=== PATIENT | male | born 1940 | race Caucasian/White ===

== ENCOUNTER 2022-04-21 20:16 | Inpatient (IN) | payer MEDICARE, MEDICAID, SELFPAY ==
[2022-04-21 18:00] VITALS: BP 171/100; PULSE 78; RESP 17; TEMP 36.3; O2SAT 94
--- OUTSIDE RECORDS SUMMARY | 2022-04-21 20:20 | XMS_ITS | Continuity of Care Document ---
:1940 Author Organization [facility] n[facility] Address [address] [place] [address]- Care Team Providers Name Role Phone Isra Ivan MD Primary Care Physician [place] [facility] [place] [facility] [place] 05/11/20 - 05/12/[address] [address]- Discharge Disposition: A-D/C Home Attending Physician: Blake Banda MD Admitting Physician: Blake Banda MD Referring Physician: Not on Staff, Referring MD Allergies, Adverse Reactions, Alerts Substance Reaction Severity Status Latex ? rash Persistent Mild Active Pollen Active Immunizations Given and Recorded Vaccine Date Status Refusal Reason influenza virus vaccine, inactivated 01/16/20 Given pneumococcal 13-valent vaccine 01/24/16 Given pneumococcal 23-valent vaccine1 12/08/13 Given tetanus-diphtheria toxoids (Td)2 12/08/13 Given tetanus-diphtheria toxoids (Td) 07/31/04 Given 1Result Comment: [12/08/2013] vis given hobbs consent signed.2Result Comment: [12/08/2013] vis given hobbs consent signed. Medications cholecalciferol 400 iu oral tablet = 400 International_Units, By Mouth, Daily, 0 Refills, Maintenance, 01/22/20 12:02:00 EDT, Tablet Start Date: 01/22/20 Status: OrderedFish Oil By Mouth, 0 Refills, Maintenance, 06/23/18 10:34:52 EDT Start Date: 06/23/18 Status: OrderedhydrOXYzine pamoate 50 mg oral capsule = 50 mg, By Mouth, Daily at bedtime, # 30 capsule, 3 Refills, Maintenance, 05/09/20 8:15:00 EST, Capsule, [facility] [address], 170, cm, 01/22/20 9:47:00 EDT, Height, 72.5, kg, 01/15/20 18:59:00 EDT,Dry Weight Start Date: 05/09/20 Status: Orderedmelatonin 5 mg oral tablet By Mouth, Daily at bedtime, 0 Refills, Maintenance, 01/22/20 12:02:00 EDT, Tablet Start Date: 01/22/20 Status: Orderedsertraline 100 mg oral tablet 1 tablet = 100 mg, By Mouth, Daily, # 30 tablet, 0 Refills, Maintenance, 05/09/20 8:05:00 EST, Tablet, [facility] [address], 170, cm, 01/22/20 9:47:00 EDT, Height, 72.5, kg, 01/15/20 18:59:00 EDT, Dry Weight Start Date: 05/09/20 Status: OrderedTriamcinolone = 5 mg, Topically, 3 times a day, Maintenance, 01/15/20 17:35:00 EDT Start Date: 01/15/20 Status: OrderedVitamin A & D 1 applicator, Topically, 4 times a day, 0 Refills, Maintenance, 06/23/18 10:34:09 EDT Start Date: 06/23/18 Status: OrderedVitamin B Complex oral tablet, extended release 1 tablet, By Mouth, Daily, 0 Refills, Maintenance, 06/23/18 10:34:35 EDT Start Date: 06/23/18 Status: OrderedVitamin C By Mouth, Daily, 0 Refills, Maintenance, 06/23/18 10:34:44 EDT Start Date: 06/23/18 Status: Ordered Problem List Condition Effective Dates Status Health Status Informant Actinic keratosis(Confirmed) Active Atypical melanocytic Active hyperplasia(Confirmed) BPH (benign prostatic Active hypertrophy)(Confirmed) Chronic low back pain(Confirmed) Active Eczema(Confirmed) Active Hyperlipidemia(Confirmed) 09/29/10 Active Osteoarthritis(Confirmed) Active Hypogonadism, male(Confirmed) Active Depression(Confirmed) Active Spinal stenosis of lumbar region at Active multiple levels(Confirmed) Tubular adenoma of colon(Confirmed) 09/20/16 Active Results Radiology Reports Exam Date Time Procedure Performing Provider Status 05/12/20 2:30 AM Chest Single Frontal View Efe , Bailey Gomez; Aut h (Verified) Notes:(Chest Single Frontal View) Reason For Exam: Pain;Other:RESULT: Chest Single Frontal View Chest Single Frontal View HISTORY: Left shoulder injury. Pain. CLINICAL QUESTION: Fracture. Pneumothorax. Pulmonary contusion. COMPARISON: Chest radiograph 11/05/2017. FINDINGS: LINES AND TUBES: None. LUNGS AND PLEURA: Low lung volumes with mild basilar atelectasis. Lungs are otherwise clear with no consolidation. No pleural effusion. No pneumothorax. HEART, MEDIASTINUM AND STEVE: Heart is normal in size. Normal upper mediastinal and hilar contour. BONES AND SOFT TISSUES: Please refer to the dedicated shoulder radiographs for bony findings. No acute osseous abnormality identified on this view. Bilateral narrowing of acromiohumeral interval. Left rotator cuff calcific tendinitis. Amorphous calcifications in the right lateral chest wall/axillary region. IMPRESSION: No acute abnormality. I have personally reviewed the images and I agree with this report. WSN: [id number] Ordering Physician: Blake Banda Dictated By: Ed Rea MD Dictated Date/Time: 05/12/20 8:42 am Reviewed By: Seng Caldwell MD Signed By: Seng Caldwell MD Signed Date/Time: 05/12/20 8:47 am Transcribed By: MEY Transcribed Date/Time: 05/12/20 8:30 am Exam Date Time Procedure Performing Provider Status 05/12/20 2:30 AM Shoulder Min 2 Views Left Efe , Bailey Gomez; Bernard h (Verified) Notes:(Shoulder Min 2 Views Left) Reason For Exam: with Pain;Post-Reduction RESULT: Shoulder Min 2 Views Left Shoulder Min 2 Views Left, 2 views Hx of Present Illness: L shoulder injury.; Reason: Post-Reduction; with Pain; Clinical Question(s): Position Fixation COMPARISON: Films done earlier same day. FINDINGS: Previously seen shoulder dislocation has been reduced. No definite associated fracture identified on this 2 view study. AC joint intact. Soft tissue calcifications lateral to humeral head, these could be fracture fragments, but appearance more consistent with calcific tendinitis, calcific bur sitis, and/or loose bodies in, or adjacent to, joint. IMPRESSION: Previously seen dislocation has been reduced. Soft tissue calcifications lateral to humeral head. WSN: [id number] Ordering Physician: Blake Banda Dictated By: Gavino Mercado MD Dictated Date/Time: 05/12/20 8:12 am Reviewed By: Gavino Mercado MD Signed By: Gavino Mercado MD Signed Date/Time: 05/12/20 8:12 am Transcribed By: MEY Transcribed Date/Time: 05/12/20 8:02 am Exam Date Time Procedure Performing Provider Status 05/12/20 12:41 AM Shoulder Min 2 Views Left Efe , Bailey Gomez; Au th (Verified) Notes:(Shoulder Min 2 Views Left) Reason For Exam: with Pain;TraumaRESULT: Shoulder Min 2 Views Left Left shoulder 2 views dated May 12, 2020. No prior studies are available. HISTORY: Pain FINDINGS: This examination shows an inferior dislocation of the humeral head with respect to the glenoid. No fracture is appreciated. IMPRESSION: Luxatio erecta (inferior dislocation). Examination 21570. Thank you for allowing me to participate in the care of this patient. WSN: [id number] Ordering Physician: Woo Faustin Dictated By: Vin Ambrosio MD Dictated Date/Time: 05/12/20 7:55 am Reviewed By: Vin Ambrosio MD Signed By: Vin Ambrosio MD Signed Date/Time: 05/12/20 7:55 am Transcribed By: MEY Transcribed Date/Time: 05/12/20 7:54 am Vital Signs Most recent to oldest 1 2 3 [Reference Range]: Height 168 cm 168 cm 168 cm (05/12/20 5:02 AM) (05/12/20 2:59 AM) (05/12/20 1:5 8 AM) Weight 66 kg 66 kg 66 kg (05/12/20 5:02 AM) (05/12/20 2:59 AM) (05/12/20 1:5 8 AM) Oxygen Saturation [94-100 %] 96 % 95 % 98 % (05/12/20 5:02 AM) (05/12/20 2:59 AM) (05/12/20 1:5 8 AM) Pulse Rate [55-90 bpm] 82 bpm 86 bpm 75 bpm (05/12/20 5:02 AM) (05/12/20 2:59 AM) (05/12/20 1:5 8 AM) Body Mass Index [18.5-24.99] 23.38 23.38 23. 38 (05/12/20 5:02 AM) (05/12/20 2:59 AM) (05/12/20 1:5 8 AM) Blood Pressure [90-138/55-84 125/67 mm Hg 154/73 mm Hg 143 /80 mm Hg mm Hg] (05/12/20 5:02 AM) *H* *H* (05/12/20 2:59 AM) (05/12/20 1:58 AM) Respiratory Rate [16-30 17 br/min 18 br/min 19 br/mi n br/min] (05/12/20 5:02 AM) (05/12/20 2:59 AM) (05/12/20 1:5 8 AM) Temperature [96.8-100.4 DegF] 97.3 DegF (05/11/20 11:57 PM) Liters per Minute 2 L/min 2 L/min 2 L/min (05/12/20 5:02 AM) (05/12/20 1:58 AM) (05/12/20 1:4 5 AM) Mode of Delivery (Oxygen) Nasal cannula Room air Nasal cannula (05/12/20 5:02 AM) (05/12/20 2:59 AM) (05/12/20 1:5 8 AM) Temperature Route Oral (05/11/20 11:57 PM) Dry Weight 66 kg 66 kg 66 kg (05/12/20 5:02 AM) (05/12/20 2:59 AM) (05/12/20 1:5 8 AM) Social History Social History Type Response Smoking Status Never smoker entered on: 09/18/16 Sex Medical Equipment Implanted Date:12/13/17 Target Site:Groin Right Description Quantity MRI Company Model MESH SOFT 7.5X15CM - BARD ([id number]) 1 Bard Unknown ELMA: No Information Assigning Authority: FDA
--- OUTSIDE RECORDS SUMMARY | 2022-04-21 20:20 | XMS_ITS | Continuity of Care Document ---
:1940 Author Organization [facility] nter Address [address] [place] [address]- Care Team Providers Name Role Phone Isra Ivan MD Primary Care Physician [place] [facility] [place]06[place] - 02/06/[address] [address]- Discharge Disposition: A-D/C Home Attending Physician: Rhoda Burciaga MD Admitting Physician: Rhoda Burciaga MD Referring Physician: Not on Staff, Referring MD Allergies, Adverse Reactions, Alerts Substance Reaction Severity Status Latex ? rash Persistent Mild Active Pollen Active Immunizations Given and Recorded Vaccine Date Status Refusal Reason influenza virus vaccine, inactivated 01/16/20 Given pneumococcal 13-valent vaccine 01/24/16 Given pneumococcal 23-valent vaccine1 12/08/13 Given tetanus-diphtheria toxoids (Td)2 12/08/13 Given tetanus-diphtheria toxoids (Td) 07/31/04 Given Not Given Vaccine Date Status Refusal Reason tetanus/diphtheria/pertussis, acel(Tdap)3 11/26/20 Not Gi balbina Patient Refuses 1Result Comment: [12/08/2013] vis given hobbs consent signed.2Result Comment: [12/08/2013] vis given hobbs consent signed.3Result Comment: Pt was educated on benefits and indication for need for tetanus vaccine. Pt able to teachback but refuses vaccine Medications cholecalciferol 400 iu oral tablet = 400 International_Units, By Mouth, Daily, 0 Refills, Maintenance, 01/22/20 12:02:00 EDT, Tablet Start Date: 01/22/20 Status: OrderedFish Oil By Mouth, 0 Refills, Maintenance, 06/23/18 10:34:52 EDT Start Date: 06/23/18 Status: OrderedhydrOXYzine pamoate 50 mg oral capsule = 50 mg, By Mouth, Daily at bedtime, # 30 capsule, 3 Refills, Maintenance, 09/26/20 14:55:00 EDT, Capsule, [facility] [address], 169, cm, 08/26/20 9:32:00 EDT, Height, 75.1, kg, 07/06/20 14:43:00 EDT, Dry Weight Start Date: 09/26/20 Status: Orderedibuprofen 600 mg oral tablet 600 mg, 1, tablet, By Mouth, Every 6 hours, PRN, not to exceed 3200 mg/day with food or milk, # 20 tablet, Refills 0, Tot. Refills 0, Maintenance, for pain, 02/06/21 16:29:00 EST, Route to Pharmacy Electronically, [facility] [address], Partial fill... Start Date: 02/06/21 Stop Date: 02/11/21 Status: Orderedmelatonin 5 mg oral tablet By Mouth, Daily at bedtime, 0 Refills, Maintenance, 01/22/20 12:02:00 EDT, Tablet Start Date: 01/22/20 Status: Orderedsertraline 100 mg oral tablet 1.5 tablet = 150 mg, By Mouth, Daily, # 135 tablet, 0 Refills, Maintenance, 08/26/20 9:49:00 EDT, [facility] [address], 169, cm, 08/26/20 9:32:00 EDT, Height, 75.1, kg, 07/06/20 14:43:00 EDT, Dry Weight Start Date: 08/26/20 Status: OrderedTriamcinolone = 5 mg, Topically, 3 [...] Osteoarthritis(Confirmed) Active Hypogonadism, male(Confirmed) Active Depression(Confirmed) Active Left rotator cuff tear(Confirmed) Active Left shoulder pain(Confirmed) Active Spinal stenosis of lumbar region at Active multiple levels(Confirmed) Tubular adenoma of colon(Confirmed) 09/20/16 Active Results Radiology Reports Exam Date Time Procedure Performing Provider Status 02/06/21 1:33 PM Hand Min 3 Views Right Adina Hylton; Mac (Portillo ified) Notes:(Hand Min 3 Views Right) Reason For Exam: Trauma;with Pain, X3 days fell onto handRESULT: Hand Min 3 Views Right Examination: Right hand performed on 02/06/2021. History: Hx of Present Illness: rt hand px post falling on it 3 days ago, pt reports numnbess and tingling to hand. pt able to move extremity; Reason: Trauma; with Pain, X3 days fell onto hand; Clinical Question(s): Fracture Findings: Frontal, oblique, and lateral views of the right hand are submitted. No fractures or dislocations are demonstrated. Joint space narrowing is seen, most marked at the fifth proximal interphalangeal joint. Minimal productive change is noted. Soft tissue swelling overlies the dorsum of the hand. IMPRESSION: Normal soft tissue swelling. There is no acute osseous abnormality. WSN: [id number] Ordering Physician: Boni Chi Dictated By: Jovita Witt MD Dictated Date/Time: 02/06/21 1:59 pm Reviewed By: Jovita Witt MD Signed By: Jovita Witt MD Signed Date/Time: 02/06/21 1:59 pm Transcribed By: MEY Transcribed Date/Time: 02/06/21 1:53 pm Vital Signs Most recent to oldest [Reference Range]: 1 Height 168 cm (02/06/21 12:13 PM) Weight 66 kg (02/06/21 12:13 PM) Oxygen Saturation [94-100 %] 97 % (02/06/21 12:13 PM) Pulse Rate [55-90 bpm] 70 bpm (02/06/21 12:13 PM) Blood Pressure [90-138/55-84 mm Hg] 108/64 mm Hg (02/06/21 12:13 PM) Respiratory Rate [16-30 br/min] 18 br/min (02/06/21 12:13 PM) Temperature [96.8-100.4 DegF] 99.3 DegF (02/06/21 12:13 PM) Mode of Delivery (Oxygen) Room air (02/06/21 12:13 PM) Blood pressure sites Arm, right (02/06/21 12:13 PM) Temperature Route Oral (02/06/21 12:13 PM) Dry Weight 66 kg (02/06/21 12:13 PM) Social History Social History Type Response Smoking Status Never smoker entered on: 09/18/16 Sex Medical Equipment Implanted Date:12/13/17 Target Site:Groin Right Description Quantity MRI Company Model MESH SOFT 7.5X15CM - BARD ([id number]) 1 Bard Unknown ELMA: No Information Assigning Authority: FDA
--- OUTSIDE RECORDS SUMMARY | 2022-04-21 20:20 | XMS_ITS | Continuity of Care Document ---
:1940 Author Organization [facility] Address [address] [id number]- Care Team Providers Name Role Phone Isra Ivan MD Primary Care Physician Encounter [facility] [place] Date(s): 11/02/20 - 11/09/[address] [address]- Encounter Diagnosis Depression (Discharge Diagnosis) - 11/02/20 Attending Physician: Isra Ivan MD Admitting Physician: Isra Ivan MD Referring Physician: Isra Ivan MD Allergies, Adverse Reactions, Alerts Substance Reaction [...] 3 Refills, Maintenance, 09/26/20 14:55:00 EDT, Capsule, [facility] [address], 169, cm, 08/26/20 9:32:00 EDT, Height, 75.1, kg, 07/06/20 14:43:00 EDT, Dry Weight Start Date: 09/26/20 Status: Orderedmelatonin 5 mg oral tablet By Mouth, Daily at bedtime, 0 Refills, Maintenance, 01/22/20 12:02:00 EDT, Tablet Start Date: 01/22/20 Status: Orderedsertraline 100 mg oral tablet 1.5 tablet = 150 mg, By Mouth, Daily, # 135 tablet, 0 Refills, Maintenance, 08/26/20 9:49:00 EDT, [facility] [address], 169, cm, [...] levels(Confirmed) Tubular adenoma of colon(Confirmed) 09/20/16 Active Diagnosis Diagnosis Type Effective Dates Health Status Clinical Serv ice Informant Depression Discharge 8/4/21 Diagnosis Social History Social History Type Response Smoking Status Never smoker entered on: 09/18/16 Sex Medical Equipment Implanted Date:12/13/17 Target Site:Groin Right Description Quantity MRI Company Model MESH SOFT 7.5X15CM - BARD ([id number]) 1 Bard Unknown LEMA: No Information Assigning Authority: FDA
--- OUTSIDE RECORDS SUMMARY | 2022-04-21 20:20 | XMS_ITS | Continuity of Care Document ---
:1940 Author Organization [facility] Address [address] [place] [address]- Care Team Providers Name Role Phone Marzena CHING, Isra Vela Primary Care Physician Encounter [facility] [place] Date(s): 08/10/21 - 09/09/[address] [address]- Allergies, Adverse Reactions, Alerts Substance Reaction Severity Status Latex ? rash Persistent Mild Active Pollen Active Immunizations Given and Recorded Vaccine Date Status Refusal Reason Influenza Virus Vaccine (oldterm) 02/06/21 Recorded SARS-CoV-2 (COVID-19) mRNA-1273 vaccine 07/20/20 Recorded influenza virus vaccine, inactivated 01/16/20 Given pneumococcal [...] Refills, Maintenance, 06/23/18 10:34:52 EDT Start Date: 3/25/19 Status: OrderedGolytely - oral powder for reconstitution 240 mL, By Mouth, Every 15 minutes, Follow colonoscopy prep instructions; Drink half at 5 pm night before procedure; drink half 6 hrs before colonoscopy time., # 4,000 mL, 0 Refills, Maintenance, 06/20/21 18:05:00 EDT, [facility] [address], Partial... Start Date: 06/20/21 Status: Orderedibuprofen 600 mg oral tablet 600 mg, 1, tablet, By Mouth, Every 6 hours, PRN, not to exceed 3200 mg/day with food or milk, # 20 tablet, Refills 0, Tot. Refills 0, Maintenance, for pain, 02/06/21 16:29:00 EST, Route to Pharmacy Electronically, [facility] [address], Partial fill... Start Date: 02/06/21 Stop Date: 02/11/21 Status: Orderedmelatonin 5 mg oral tablet By Mouth, Daily at bedtime, 0 Refills, Maintenance, 01/22/20 12:02:00 EDT, Tablet Start Date: 01/22/20 Status: OrderedPT evaluate and treat for left shoulder pain PT evaluate and treat for left shoulder pain, See Instructions, # 1 each, Refills 0, Tot. Refills 0,Maintenance, ICD-10 R53.1 weakness, 04/10/21 14:35:00 EST, Supply Start Date: 04/10/21 Status: Orderedsertraline 100 mg oral tablet 1.5 tablet = 150 mg, By Mouth, Daily, # 135 tablet, 1 Refills, Maintenance, 08/18/21 9:51:00 EDT, [facility] [address], 168, cm, 08/18/21 9:31:00 EDT, Height, 66, kg, 02/15/21 14:56:00 EST, Dry Weight Start Date: 08/18/21 Status: OrderedTriamcinolone = 5 mg, Topically, 3 [...] Status Health Status Informant Actinic keratosis(Confirmed) Active Anemia(Confirmed) Active Atypical melanocytic Active hyperplasia(Confirmed) BPH (benign prostatic Active hypertrophy)(Confirmed) Chronic low back pain(Confirmed) Active Eczema(Confirmed) Active Housing situation unstable(Confirmed) Active Hyperlipidemia(Confirmed) 09/29/10 Active Osteoarthritis(Confirmed) Active Hypogonadism, male(Confirmed) Active Depression(Confirmed) Active Left rotator cuff tear(Confirmed) Active Left shoulder pain(Confirmed) Active Spinal stenosis of lumbar region at Active multiple levels(Confirmed) Tubular adenoma of colon(Confirmed) 09/20/16 Active Social History Social History Type Response Smoking Status Never smoker entered on: 09/18/16 Sex Medical Equipment Implanted Date:12/13/17 Target Site:Groin Right Description Quantity MRI Company Model MESH SOFT 7.5X15CM - BARD ([id number]) 1 Bard Unknown ELMA: No Information Assigning Authority: FDA
--- OUTSIDE RECORDS SUMMARY | 2022-04-21 20:20 | XMS_ITS | Continuity of Care Document ---
:1940 Author Organization [facility] Address [address] [place] [address]- Care Team Providers Name Role Phone Isra Ivan MD Primary Care Physician Encounter [facility] [place] Date(s): 04/01/21 - 05/07/[address] [address] Attending Physician: Isra Ivan MD Admitting Physician: [...] Daily, # 135 tablet, 1 Refills, Maintenance, 02/21/21 14:20:00 EST, [facility] [address], 168, cm, 02/15/21 14:56:00 EST, Height, 66, kg, 02/15/21 14:56:00 EST, Dry Weight Start Date: 02/21/21 Status: OrderedTriamcinolone = 5 mg, Topically, 3 [...] Company Model MESH SOFT 7.5X15CM - BARD ([id number]) 1 Bard Unknown ELMA: No Information Assigning Authority: FDA
--- OUTSIDE RECORDS SUMMARY | 2022-04-21 20:20 | XMS_ITS | Continuity of Care Document ---
:1940 Author Organization [facility] Address [address] [place] [address]- Care Team Providers Name Role Phone Isra Ivan MD Primary Care Physician Encounter [facility] [place] Date(s): 12/30/20 - 01/29/[address] [address]- Attending Physician: Gabby Ramires Admitting Physician: AdmtrGabby Referring Physician: Admtr, Ar8 Allergies, Adverse Reactions, Alerts Substance Reaction Severity [...] Company Model MESH SOFT 7.5X15CM - BARD ([id number]) 1 Bard Unknown ELMA: No Information Assigning Authority: FDA
--- OUTSIDE RECORDS SUMMARY | 2022-04-21 20:20 | XMS_ITS | Continuity of Care Document ---
:1940 Author Organization [facility] Address [address] [place] [address]- Care Team Providers Name Role Phone Marzena CHING, Isra Vela Primary Care Physician Encounter [facility] [place] Date(s): 09/14/20 - 09/21/[address] [address]- Encounter Diagnosis Fatigue (Discharge Diagnosis) - 09/14/20 Depression (Discharge Diagnosis) - 09/14/20 Attending Physician: Lore Mayorga NP Admitting Physician: Lore Mayorga NP Allergies, Adverse Reactions, Alerts Substance Reaction Severity [...] 12:02:00 EDT, Tablet Start Date: 01/22/20 Status: Ordereddoxycycline hyclate 100 mg oral tablet 1 tablet = 100 mg, By Mouth, 2 times a day, for 21 days, # 42 tablet, 0 Refills, Acute 10/10/20 10:24:00 EDT, 09/19/20 10:24:00 EDT, Tablet, [facility] [address], Partial fill upon patient request ifthe prescription is for a schedule II opioid drug... Start Date: 09/19/20 Stop Date: 10/10/20 Status: OrderedFish Oil By Mouth, 0 Refills, [...] Dates Health Status Clinical Serv ice Informant Fatigue Discharge 09/14/20 Diagnosis Depression Discharge 09/14/20 Diagnosis Social History Social History Type Response Smoking Status Never smoker entered on: 09/18/16 Sex Medical Equipment Implanted Date:12/13/17 Target Site:Groin Right Description Quantity MRI Company Model MESH SOFT 7.5X15CM - BARD ([id number]) 1 Bard Unknown ELMA: No Information Assigning Authority: FDA
--- OUTSIDE RECORDS SUMMARY | 2022-04-21 20:20 | XMS_ITS | Continuity of Care Document ---
:1940 Author Organization [facility] Address [address] [place] [address]- Care Team Providers Name Role Phone Carlos Alberto Correa MD Primary Care Physician [place] [facility] [place] 03/17/19 - 04/17/19 [facility] [address] [place] [address]- [facility] Attending Physician: Carlos Alberto Correa MD Allergies, Adverse Reactions, Alerts Substance Reaction Severity Status Latex ? rash Persistent Mild Active Pollen Active Immunizations Given and Recorded Vaccine Date Status Refusal Reason pneumococcal 13-valent vaccine 01/24/16 Given pneumococcal 23-valent vaccine1 12/08/13 Given tetanus-diphtheria toxoids (Td)2 12/08/13 Given tetanus-diphtheria toxoids (Td) 07/31/04 Given 1Result Comment: [12/08/2013] vis given hobbs consent signed.2Result Comment: [12/08/2013] vis given hobbs consent signed. Medications buPROPion 75 mg oral tablet 1 tablet = 75 mg, By Mouth, Daily, # 30 tablet, 3 Refills, Maintenance, 05/30/18 9:56:00 EST Start Date: 05/30/18 Status: OrderedCialis 10 mg oral tablet 1 tablet = 10 mg, By Mouth, Daily, 1 hour before sexual activity, # 5 tablet, 1 Refills, Maintenance, 09/05/16 8:48:24, Tablet Start Date: 09/05/16 Status: OrderedColace sodium 100 mg oral capsule 100 mg, 1, capsule, By Mouth, 2 times a day, PRN, with plenty of water, # 20 capsule, Refills 0, Tot. Refills 0, Maintenance, for constipation, 12/13/17 11:14:08 EDT, Print Requisition Start Date: 12/13/17 Status: OrderedFish Oil By Mouth, 0 Refills, Maintenance, 06/23/18 10:34:52 EDT Start Date: 06/23/18 Status: Orderedfluocinonide 0.05% topical cream 1 applicator, Topically, 3 times a day, apply a thin film to affected area, # 60 Gm, 1 Refills, Maintenance, 12/09/14 10:36:33, 1 applicator Topically 3 times a day,Instr:apply a thin film; to affectedarea Start Date: 12/09/14 Status: OrderedNeurontin 100 mg oral capsule See Instructions, Take 1 capsule in the AM, then 1 capsule in the afternoon, # 60 capsule, Refills 2, Tot. Refills 2, Maintenance, 12/10/16 10:09:33, Instructions Replace Required Details, Route to Pharmacy Electronically, [id number]... Start Date: 12/10/16 Status: OrderedNeurontin 300 mg oral capsule 300 mg, 1, capsule, By Mouth, Daily at bedtime, # 30 capsule, Refills 2, Tot. Refills 2, Maintenance, 12/10/16 10:11:38, Route to Pharmacy Electronically, [id number], [address] Start Date: 12/10/16 Stop Date: 03/10/17 Status: OrderedOTC vit's OTC vit's, Refills 0, Maintenance, 10/09/13 18:33:04, Compound Start Date: 10/09/13 Status: OrderedPercocet-5/325 325 mg-5 mg oral tablet 1-2 tables, By Mouth, Every 6 hours, PRN, not to exceed 3200 mg acetaminophen per day you may filll this prescription for fewer pills. I reviewed the MASSpat for this patient, # 18 tablet, Refills 0, Tot. Refills 0, Maintenance, for pain, 12/13/17 11... Start Date: 12/13/17 Status: Orderedsertraline 100 mg oral tablet 1 tablet = 100 mg, By Mouth, Daily, please call and reschedule missed appt., # 30 tablet, 1 Refills,Maintenance, 03/17/19 10:13:53 EST, Tablet, [facility] [address], 167.64, cm, 02/24/19 8:13:49 EST, Height, 73.8, kg, 12/13/17 9:03:54 EDT, Dry Weight Start Date: 03/17/19 Status: Orderedtestosterone cypionate 200 mg/mL intramuscular solution = 100 mg, Intramuscular, Every 14 days, Administed via right glut tolerated well lot # [id number] exp 01/2020 [facility] [id number], # 0.5 mL, 0 Refills, Maintenance, 01/08/18 10:58:38 EDT Start Date: 01/08/18 Status: Orderedtestosterone cypionate 200 mg/mL intramuscular solution = 100 mg, Intramuscular, Every 14 days, # 1 mL, 3 Refills, Maintenance, 01/08/18 10:59:55 EDT Start Date: 01/08/18 Status: OrderedtiZANidine 2 mg oral capsule 1 capsule = 2 mg, By Mouth, 3 times a day, PRN as needed for muscle spasm, # 90 capsule, 2 Refills, Maintenance, 12/10/16 10:12:38, Capsule Start Date: 12/10/16 Stop Date: 03/10/17 Status: OrderedVitamin A & D 1 applicator, Topically, 4 times a day, 0 Refills, Maintenance, 06/23/18 10:34:09 EDT Start Date: 06/23/18 Status: OrderedVitamin B Complex oral tablet, extended release 1 tablet, By Mouth, Daily, 0 Refills, Maintenance, 06/23/18 10:34:35 EDT Start Date: 06/23/18 Status: OrderedVitamin C By Mouth, Daily, 0 Refills, Maintenance, 06/23/18 10:34:44 EDT Start Date: 06/23/18 Status: OrderedVitamin E By Mouth, Daily, 0 Refills, Maintenance, 06/23/18 10:35:01 EDT Start Date: 06/23/18 Status: Ordered Problem [...] Company Model MESH SOFT 7.5X15CM - BARD ([id number]) 1 Bard Unknown ELMA: No Information Assigning Authority: FDA
--- OUTSIDE RECORDS SUMMARY | 2022-04-21 20:20 | XMS_ITS | Continuity of Care Document ---
:1940 Author Organization [facility] Address [address] [place] [address]- Care Team Providers Name Role Phone Marzena CHING, Isra Vela Primary Care Physician Encounter [facility] Date(s): 10/19/20 - 11/18/20 [facility] [address] [place] [address]- Allergies, Adverse Reactions, Alerts Substance Reaction Severity [...] Company Model MESH SOFT 7.5X15CM - BARD ([id number]) 1 Bard Unknown ELMA: No Information Assigning Authority: FDA
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
--- OUTSIDE RECORDS SUMMARY | 2022-04-21 20:20 | XMS_ITS | Continuity of Care Document ---
:1940 Author Organization [facility] Address [address] [place] [address]- Care Team Providers Name Role Phone Carlos Alberto Correa MD Primary Care Physician [place] [facility] [place] 03/16/19 - 04/15/19 [facility] [address] [place] [address]- [facility] Attending Physician: Carlos Alberto Correa MD Allergies, [...] Replace Required Details, Route to Pharmacy Electronically, [id number]... Start Date: 12/10/16 Status: OrderedNeurontin 300 mg oral capsule 300 mg, 1, capsule, By Mouth, Daily at bedtime, # 30 capsule, Refills 2, Tot. Refills 2, Maintenance, 12/10/16 10:11:38, Route to Pharmacy Electronically, [id number], [facility]- [address] [place] [address] Start Date: 12/10/16 Stop Date: 03/10/17 Status: [...] via right glut tolerated well lot # [id number] exp 01/2020 [facility] [id number], # 0.5 mL, 0 Refills, Maintenance, 01/08/18 [...] Company Model MESH SOFT 7.5X15CM - BARD ([id number]) 1 Bard Unknown ELMA: No Information Assigning Authority: FDA
--- OUTSIDE RECORDS SUMMARY | 2022-04-21 20:20 | XMS_ITS | Continuity of Care Document ---
:1940 Author Organization [facility] Address [address] [place] [address]- Care Team Providers Name Role Phone Isra Ivan MD Primary Care Physician [place] [facility] [place] [facility] [place] 06/02/21 - 07/02/[address] [address]- Allergies, Adverse Reactions, Alerts Substance Reaction Severity [...] 06/23/18 10:34:52 EDT Start Date: 06/23/18 Status: OrderedGolytely - oral powder for reconstitution 240 mL, By Mouth, Every 15 minutes, Follow colonoscopy prep instructions; Drink half at 5 pm night before procedure; drink half 6 hrs before colonoscopy time., # 4,000 mL, 0 Refills, Maintenance, 06/20/21 18:05:00 EDT, [facility] - [address], Partial... Start [...] tablet, 1 Refills, Maintenance, 02/21/21 14:20:00 EST, [facility] - [address], 168, cm, [...] Company Model MESH SOFT 7.5X15CM - BARD ([id number]) 1 Bard Unknown ELMA: No Information Assigning Authority: FDA
--- OUTSIDE RECORDS SUMMARY | 2022-04-21 20:20 | XMS_ITS | Continuity of Care Document ---
:1940 Author Organization [facility] Address [address] [place] [address]- Care Team Providers Name Role Phone Isra Ivan MD Primary Care Physician [place] [facility] [place] 08/18/21 - 09/17/[address] [address]- Attending Physician: Gabby Ramires Admitting Physician: Admtr, Gabby Referring Physician: Admtr, Ar8 Allergies, Adverse Reactions, [...] Company Model MESH SOFT 7.5X15CM - BARD ([id number]) 1 Bard Unknown ELMA: No Information Assigning Authority: FDA
--- OUTSIDE RECORDS SUMMARY | 2022-04-21 20:20 | XMS_ITS | Continuity of Care Document ---
:1940 Author Organization [facility] Address [address] [id number]- Care Team Providers Name Role Phone Isra Ivan MD Primary Care Physician En[place] [facility] [place] Date(s): 08/26/20 - 09/02/[address] [address]- Encounter Diagnosis Depression (Discharge Diagnosis) - 08/26/20 Attending Physician: Isra Ivan MD Admitting Physician: [...] Status Clinical Serv ice Informant Depression Discharge 08/26/20 Diagnosis Vital Signs Most recent to oldest [Reference Range]: 1 Height 169 cm (08/26/20 9:32 AM) Weight 76.2 kg (08/26/20 9:32 AM) Oxygen Saturation [94-100 %] 99 % (08/26/20 9:32 AM) Pulse Rate [55-90 bpm] 65 bpm (08/26/20 9:32 AM) Body Mass Index [18.5-24.99] 26.68 *H* (08/26/20 9:32 AM) Blood Pressure [90-138/55-84 mm Hg] 132/80 mm Hg (08/26/20 9:32 AM) Social History Social History Type Response Smoking Status Never smoker entered on: 09/18/16 Sex Medical Equipment Implanted Date:12/13/17 Target Site:Groin Right Description Quantity MRI Company Model MESH SOFT 7.5X15CM - BARD ([id number]) 1 Bard Unknown ELMA: No Information Assigning Authority: FDA
--- OUTSIDE RECORDS SUMMARY | 2022-04-21 20:20 | XMS_ITS | Continuity of Care Document ---
:1940 Author Organization [facility] Address [address] [place] [address]- Care Team Providers Name Role Phone Isra Ivan MD Primary Care Physician [place] [facility] [place] Date(s): 09/12/20 - 09/19/[address] [address]- Attending Physician: Isra Ivan MD Admitting Physician: Isra Ivan MD Allergies, Adverse Reactions, [...] Company Model MESH SOFT 7.5X15CM - BARD ([id number]) 1 Bard Unknown ELMA: No Information Assigning Authority: FDA
--- OUTSIDE RECORDS SUMMARY | 2022-04-21 20:21 | XMS_ITS | Continuity of Care Document ---
:1940 Author Organization [facility] Address [address] [place] [address]- Care Team Providers Name Role Phone Isra Ivan MD Primary Care Physician [place] [facility] [place] 06/30/21 - 07/30/[address] [address]- Allergies, Adverse Reactions, Alerts Substance Reaction Severity [...] Company Model MESH SOFT 7.5X15CM - BARD ([id number]) 1 Bard Unknown ELMA: No Information Assigning Authority: FDA
--- OUTSIDE RECORDS SUMMARY | 2022-04-21 20:21 | XMS_ITS | Continuity of Care Document ---
:1940 Author Organization [facility] Address [address] [id number]- Care Team Providers Name Role Phone Isra Ivan MD Primary Care Physician [place] [facility] [place] - 05/02/[address] [address]- Attending Physician: Isra Ivan MD Admitting Physician: [...] Mouth, Daily at bedtime, # 30 capsule, 0 Refills, Maintenance, 01/22/20 12:02:00 EDT, Capsule, [facility] [address], 170, cm, 01/22/20 9:47:00 EDT, Height, 72.5, kg, 01/15/20 18:59:00 EDT, Dry Weight Start Date: 01/22/20 Status: Orderedmelatonin 5 mg oral tablet By Mouth, Daily at bedtime, 0 Refills, Maintenance, 01/22/20 12:02:00 EDT, Tablet Start Date: 01/22/20 Status: OrderedSertraline = 100 mg, By Mouth, Daily, Maintenance, 01/15/20 17:37:00 EDT Start Date: 01/15/20 Status: Orderedsertraline 100 mg oral tablet 1 tablet = 100 mg, By Mouth, Daily, # 30 tablet, 0 Refills, Maintenance, 01/22/20 12:01:00 EDT, Tablet, [facility] [address], 170, cm, 01/22/20 9:47:00 EDT, Height, 72.5, kg, 01/15/20 18:59:00 EDT, Dry Weight Start Date: 01/22/20 Status: Orderedsertraline 100 mg oral tablet 1 tablet = 100 mg, By Mouth, Daily, please call and reschedule missed appt., # 30 tablet, 1 Refills,Maintenance, 03/17/19 10:13:53 EST, Tablet, [facility] [address], 167.64, cm, 02/24/19 8:13:49 EST, Height, 73.8, kg, 12/13/17 9:03:54 EDT, Dry Weight Start Date: 03/17/19 Status: OrderedTriamcinolone = 5 mg, Topically, 3 [...] Company Model MESH SOFT 7.5X15CM - BARD ([id number]) 1 Bard Unknown ELMA: No Information Assigning Authority: FDA
--- OUTSIDE RECORDS SUMMARY | 2022-04-21 20:21 | XMS_ITS | Continuity of Care Document ---
:1940 Author Organization [facility] Address [address] [place] [address]- Care Team Providers Name Role Phone Marzena CHING, Isra Vela Primary Care Physician En[place] [facility] [place] Date(s): 11/15/20 - 11/22/[address] [address]- Attending Physician: Judy Gibbs NP Admitting Physician: Judy Gibbs NP Allergies, Adverse Reactions, Alerts Substance Reaction [...] Company Model MESH SOFT 7.5X15CM - BARD ([id number]) 1 Bard Unknown ELMA: No Information Assigning Authority: FDA
--- OUTSIDE RECORDS SUMMARY | 2022-04-21 20:21 | XMS_ITS | Continuity of Care Document ---
:1940 Author Organization [facility] Address [address] [place] [address]- Care Team Providers Name Role Phone Marzena CHING, Isra Vela Primary Care Physician En[place] [facility] [place] Date(s): 02/21/22 - 03/23/[address] [address]- Allergies, Adverse Reactions, Alerts Substance Reaction Severity [...] 240 mL, By Mouth, Every 15 minutes, Start at 5pm the night before the procedure drink half Drink theother half 6 hours before procedure, # 1 each, 0 Refills, Maintenance, 10/11/21 18:01:00 EDT, REC Powder, [facility] [address], Partial fill upon... Start Date: 10/11/21 Status: OrderedGolytely - oral powder for reconstitution [...] 02/15/21 14:56:00 EST, Dry Weight Start Date: 5/20/22 Status: OrderedTriamcinolone = 5 mg, Topically, 3 [...] Date: 06/23/18 Status: Ordered Problem List Condition Confirmation Course Effective Dates Status Health I nformant Status Actinic keratosis Confirmed Active Anemia Confirmed Active Atypical melanocytic Confirmed Active hyperplasia BPH (benign prostatic Confirmed Active hypertrophy) Chronic low back pain Confirmed Active Eczema Confirmed Active Housing situation Confirmed Active unstable Hyperlipidemia Confirmed 09/29/10 Active Osteoarthritis Confirmed Active Hypogonadism, male Confirmed Active Depression Confirmed Active Left rotator cuff Confirmed Active tear Left shoulder pain Confirmed Active Spinal stenosis of Confirmed Active lumbar region at multiple levels 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 Social History Social History Type Response Smoking Status Never smoker entered on: 09/18/16 Sex Implantable Device List Procedure Provider Procedure Date Device Type Site Repair Hernia Inguinal Aldo Howell MD 12/13/17 Unknown Groin Right Open Device Serial Lot or Manufacturing Expiration Distinct MRI Implan table Assigning Identifier Number Batch Date Date Identification Safety Status Authority Number Code Unknown Unknown [id number] Unknown 07/27/22 Unknown Unknown Active Unknown 0 Patient Care team information Care Team PersonnelName: Marzena CHING, Isra Vela Position: [facility] Primary Care Physician Member Role: PCP Address: Address: [address] [place] [address]- Name: Thu Coates Position: [facility] Outreach Member Role: Lifetime Consulting Physician Care Team Related PersonsName: RD GARCIA Address: [address] [address] Name: MOISES WHALEN Address: [place] [address]
--- OUTSIDE RECORDS SUMMARY | 2022-04-21 20:21 | XMS_ITS | Continuity of Care Document ---
:1940 Author Organization [facility] Address [address] [id number]- Care Team Providers Name Role Phone Isra Ivan MD Primary Care Physician Encounter [facility] [place] Date(s): 06/01/20 - 07/01/[address] [address]- Allergies, Adverse Reactions, Alerts Substance Reaction Severity [...] Active Hypogonadism, male(Confirmed) Active Depression(Confirmed) Active Left shoulder pain(Confirmed) Active Spinal stenosis of lumbar region at Active multiple levels(Confirmed) Tubular adenoma of colon(Confirmed) 09/20/16 Active Social History Social History Type Response Smoking Status Never smoker entered on: 09/18/16 Sex Medical Equipment Implanted Date:12/13/17 Target Site:Groin Right Description Quantity MRI Company Model MESH SOFT 7.5X15CM - BARD ([id number]) 1 Bard Unknown ELMA: No Information Assigning Authority: FDA
--- OUTSIDE RECORDS SUMMARY | 2022-04-21 20:21 | XMS_ITS | Continuity of Care Document ---
:1940 Author Organization [facility] Address [address] [id number]- Care Team Providers Name Role Phone Isra Ivan MD Primary Care Physician Encounter [facility] [place] Date(s): 05/23/20 - 05/30/[address] [address]- Encounter Diagnosis Fatigue (Discharge Diagnosis) - 05/23/20 Shoulder pain (Discharge Diagnosis) - 05/23/20 Attending Physician: Isra Ivan MD Admitting Physician: [...] Diagnosis Type Effective Dates Health Status Clinical In formant Service Fatigue Discharge 05/23/20 Diagnosis Shoulder pain Discharge 05/23/20 Diagnosis Vital Signs Most recent to oldest [Reference Range]: 1 2 Height 169 cm 169 cm (05/25/20 3:48 PM) (05/23/20 3:28 PM) Weight 66 kg 76.6 kg (05/25/20 3:48 PM) (05/23/20 3:28 PM) Body Mass Index [18.5-24.99] 26.82 *H* (05/23/20 3:28 PM) Blood Pressure [90-138/55-84 mm Hg] 108/72 mm Hg (05/23/20 3:28 PM) Blood pressure sites Arm, left (05/23/20 3:28 PM) Weight Obtained Via Standing scale (05/23/20 3:28 PM) Social History Social History Type Response Smoking Status Never smoker entered on: 09/18/16 Sex Medical Equipment Implanted Date:12/13/17 Target Site:Groin Right Description Quantity MRI Company Model MESH SOFT 7.5X15CM - BARD ([id number]) 1 Bard Unknown ELMA: No Information Assigning Authority: FDA
--- OUTSIDE RECORDS SUMMARY | 2022-04-21 20:21 | XMS_ITS | Continuity of Care Document ---
:1940 Author Organization [facility] Address [address] [place] [address]- Care Team Providers Name Role Phone Carlos Alberto Correa MD Primary Care Physician [place] [facility] [place] Date(s): 10/30/19 - 11/29/19 [facility] [address] [place] [address]- [facility] Allergies, Adverse Reactions, Alerts Substance Reaction Severity [...] Replace Required Details, Route to Pharmacy Electronically, [id number]... Start Date: 12/10/16 Status: OrderedNeurontin 300 mg oral capsule 300 mg, 1, capsule, By Mouth, Daily at bedtime, # 30 capsule, Refills 2, Tot. Refills 2, Maintenance, 12/10/16 10:11:38, Route to Pharmacy Electronically, [id number], [facility] [address] Start Date: 12/10/16 Stop Date: 03/10/17 Status: [...] via right glut tolerated well lot # [id number] exp 01/2020 [facility] [id number], # 0.5 mL, 0 Refills, Maintenance, 01/08/18 [...] Company Model MESH SOFT 7.5X15CM - BARD ([id number]) 1 Bard Unknown ELMA: No Information Assigning Authority: FDA
--- OUTSIDE RECORDS SUMMARY | 2022-04-21 20:21 | XMS_ITS | Continuity of Care Document ---
:1940 Author Organization [facility] Address [address] [place] [address]- Care Team Providers Name Role Phone Marzena CHING, Isra Vela Primary Care Physician En[place] [facility] [place](s[place] 04/07/21 - 05/07/[address] [address] Attending Physician: Gabby Ramires Admitting Physician: AdmGabby john Referring Physician: AdmtrGabby Allergies, Adverse Reactions, Alerts Substance Reaction Severity [...] Company Model MESH SOFT 7.5X15CM - BARD ([id number]) 1 Bard Unknown ELMA: No Information Assigning Authority: FDA
--- OUTSIDE RECORDS SUMMARY | 2022-04-21 20:21 | XMS_ITS | Continuity of Care Document ---
:1940 Author Organization [facility] Address [address] [place] [address]- Care Team Providers Name Role Phone Isra Ivan MD Primary Care Physician Encounter [facility] [place] Date(s): 12/26/21 - 12/26/[address] [address]- Discharge Disposition: A-D/C Home Attending Physician: Radha Barksdale MD Admitting Physician: Radha Barksdale MD Referring Physician: Radha Barksdale MD Allergies, Adverse Reactions, Alerts Substance Reaction [...] levels(Confirmed) Tubular adenoma of colon(Confirmed) 09/20/16 Active Vital Signs Most recent to oldest 1 2 3 [Reference Range]: Height 167.64 cm (12/26/21 9:49 AM) Weight 76.8 kg (12/26/21 9:49 AM) Oxygen Saturation [94-100 %] 100 % 99 % 99 % (12/26/21 11:00 AM) (12/26/21 10:55 AM) (12/26/21 1 0:50 AM) Pulse Rate [55-90 bpm] 67 bpm (12/26/21 9:49 AM) Body Mass Index [18.5-24.99 27.33 kg/m2 kg/m2] *H* (12/26/21 9:49 AM) Blood Pressure [90-138/55-84 135/80 mm Hg 123/69 mm Hg 133 /79 mm Hg mm Hg] (12/26/21 11:00 AM) (12/26/21 10:55 AM) (12/26/21 1 0:50 AM) Respiratory Rate [16-30 20 br/min 13 br/min 11 br/mi n br/min] (12/26/21 11:00 AM) *L* *L* (12/26/21 10:55 AM) (12/26/21 10:5 0 AM) Temperature [96.8-100.4 97.8 DegF DegF] (12/26/21 9:49 AM) Liters per Minute 6 L/min 6 L/min (12/26/21 10:55 AM) (12/26/21 10:50 AM) Mode of Delivery (Oxygen) Room air Simple face mask Room air (12/26/21 11:00 AM) (12/26/21 10:55 AM) (12/26/21 9 :49 AM) Blood pressure sites Arm, left (12/26/21 9:49 AM) Temperature Route Temporal (12/26/21 9:49 AM) Dry Weight 76.8 kg (12/26/21 9:49 AM) Weight Obtained Via Standing scale (12/26/21 9:49 AM) Dry Weight Obtained Via Standing scale (12/26/21 9:49 AM) Social History Social History Type Response Smoking Status Never smoker entered on: 09/18/16 Sex Implantable Device List Procedure Provider Procedure Date Device Type Site Repair Hernia Inguinal Aldo Howell MD 12/13/17 Unknown Groin Right Open Device Serial Lot or Manufacturing Expiration Distinct MRI Implan table Assigning Identifier Number Batch Date Date Identification Safety Status Authority Number Code Unknown Unknown [id number] Unknown 07/27/22 Unknown Unknown Active Unknown 0 Care Team PersonnelName: Marzena CHING, Isra Vela Address: [address] [place] [address]
--- OUTSIDE RECORDS SUMMARY | 2022-04-21 20:21 | XMS_ITS | Continuity of Care Document ---
:1940 Author Organization [facility] Address [address] [place] [address]- Care Team Providers Name Role Phone Marzena CHING, Isra Vela Primary Care Physician [place] [facility] [place] 02/27/21 - 03/29/[address] [address]- Allergies, Adverse Reactions, Alerts Substance Reaction Severity [...] Company Model MESH SOFT 7.5X15CM - BARD ([id number]) 1 Bard Unknown ELMA: No Information Assigning Authority: FDA
--- OUTSIDE RECORDS SUMMARY | 2022-04-21 20:21 | XMS_ITS | Continuity of Care Document ---
:1940 Author Organization [facility] Address [address] [place] [address]- Care Team Providers Name Role Phone Carlos Alberto Correa MD Primary Care Physician Encounter [facility] Date(s): 03/18/19 - 03/28/19 [facility] [address] [place] [address]- [facility] Attending Physician: Admtr, Vincent8 Allergies, Adverse Reactions, Alerts Substance Reaction Severity [...] Replace Required Details, Route to Pharmacy Electronically, [id number]... Start Date: 12/10/16 Status: OrderedNeurontin 300 mg oral capsule 300 mg, 1, capsule, By Mouth, Daily at bedtime, # 30 capsule, Refills 2, Tot. Refills 2, Maintenance, 12/10/16 10:11:38, Route to Pharmacy Electronically, [id number], [facility]- [address] [place] [address] Start Date: 12/10/16 Stop Date: 03/10/17 Status: [...] via right glut tolerated well lot # [id number] exp 01/2020 [facility] [id number], # 0.5 mL, 0 Refills, Maintenance, 01/08/18 [...] Company Model MESH SOFT 7.5X15CM - BARD ([id number]) 1 Bard Unknown ELMA: No Information Assigning Authority: FDA
--- OUTSIDE RECORDS SUMMARY | 2022-04-21 20:21 | XMS_ITS | Continuity of Care Document ---
:1940 Author Organization [facility] Address [address] [place] [address]- Care Team Providers Name Role Phone Isra Ivan MD Primary Care Physician Encounter [facility] Date(s): 06/09/21 - 07/09/21 [facility] [address] [place], [place] [address] Allergies, Adverse Reactions, Alerts Substance Reaction Severity [...] Company Model MESH SOFT 7.5X15CM - BARD ([id number]) 1 Bard Unknown ELMA: No Information Assigning Authority: FDA
--- OUTSIDE RECORDS SUMMARY | 2022-04-21 20:21 | XMS_ITS | Continuity of Care Document ---
:1940 Author Organization [facility] Address [address] [place] [address]- Care Team Providers Name Role Phone Marzena CHING, Isra Vela Primary Care Physician [place] [facility] [place] 04/10/21 - 05/10/[address] [address]- Allergies, Adverse Reactions, Alerts Substance Reaction Severity [...] 06/23/18 10:34:52 EDT Start Date: 3/25/19 Status: OrderedhydrOXYzine pamoate 50 mg oral capsule [...] Company Model MESH SOFT 7.5X15CM - BARD ([id number]) 1 Bard Unknown ELMA: No Information Assigning Authority: FDA
--- OUTSIDE RECORDS SUMMARY | 2022-04-21 20:21 | XMS_ITS | Continuity of Care Document ---
:1940 Author Organization [facility] Address [address] [place], [place] [address]- Care Team Providers Name Role Phone Isra Ivan MD Primary Care Physician Encounter [facility] [place] Date(s): 03/29/22 - 03/29/[address] [address]- Encounter Diagnosis Sciatica (Final) - 03/29/22 Discharge Disposition: A-D/C Home Attending Physician: Kai Beckman MD Admitting Physician: Kai Beckman MD Referring Physician: Not on Staff, Referring [...] 12:02:00 EDT, Tablet Start Date: 01/22/20 Status: Ordereddiclofenac 3% topical gel 1 application, Topically, 2 times a day, # 100 Gm, 0 Refills, Maintenance, 03/29/22 15:38:00 EST, Gel, [id number], Partial fill upon patient request if the prescription is for a schedule II opioiddrug., 1 application Topically 2 times a day, 168... Start Date: 03/29/22 Status: OrderedFish Oil By Mouth, 0 Refills, [...] Start Date: 02/06/21 Stop Date: 02/11/21 Status: Orderedlidocaine-menthol 4.5%-5% topical film 1 patch, Topically, Daily, PRN as needed for pain, leave on up to 12 hours, # 15 each, 0 Refills, Acute 04/04/22 15:45:00 EST, 03/29/22 15:39:00 EST, Film, [facility] #[id number], Partial fill upon patient request if the prescription is for a schedule II opi... Start Date: 03/29/22 Stop Date: 04/04/22 Status: Orderedmelatonin 5 mg oral tablet By [...] 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 Vital Signs Most recent to oldest [Reference Range]: 1 2 Height 168 cm 168 cm (03/29/22 12:55 PM) (03/29/22 12:50 PM) Weight 63 kg 63 kg (03/29/22 12:55 PM) (03/29/22 12:50 PM) Oxygen Saturation [94-100 %] 100 % (03/29/22 12:50 PM) Pulse Rate [55-90 bpm] 56 bpm (03/29/22 12:50 PM) Body Mass Index [18.5-24.99 kg/m2] 22.32 kg/m2 (03/29/22 12:50 PM) Blood Pressure [90-138/55-84 mm Hg] 156/93 mm Hg *H* (03/29/22 12:50 PM) Respiratory Rate [16-30 br/min] 22 br/min (03/29/22 12:50 PM) Temperature [96.8-100.4 DegF] 97.6 DegF (03/29/22 12:50 PM) Mode of Delivery (Oxygen) Room air (03/29/22 12:50 PM) Blood pressure sites Arm, right (03/29/22 12:50 PM) Temperature Route Oral (03/29/22 12:50 PM) Dry Weight 63 kg 63 kg (03/29/22 12:55 PM) (03/29/22 12:50 PM) Weight Obtained Via Patient/family stated (03/29/22 12:50 PM) Dry Weight Obtained Via Patient/family stated (03/29/22 12:50 PM) Social History Social History Type Response Smoking Status Never smoker entered on: 09/18/16 Sex Implantable Device List Procedure Provider Procedure Date Device Type Site Repair Hernia Inguinal Aldo Howell MD 12/13/17 Unknown Groin Right Open Device Serial Lot or Manufacturing Expiration Distinct MRI Implan table Assigning Identifier Number Batch Date Date Identification Safety Status Authority Number Code Unknown Unknown [id number] Unknown 07/27/22 Unknown Unknown Active Unknown 0 Note Rk CHING, Kai Brink: PERFORM Event Display: Patient Education Leaflets Authored Date: [id number] Back Pain (Acute or Chronic) ?? [id number] Back Pain (Acute or Chronic) Back pain is one of the most common problems. The good news is that most people feel better in 1 to2 weeks, and most of the rest in 1 to 2 months. Most people can remain active. People who have pain??describe it differently???not??everyone is the same. ??? The pain can be sharp, stabbing, shooting, aching, cramping or burning. ??? Movement, standing,bending, lifting, sitting, or walking may worsen pain. ??? It can be limited to one spot or area, katerine can be more generalized. ??? It can spread upwards, to the front, or go down your arms or legs (sciatica). ??? It can cause muscle spasm. Most of the time, mechanical problems with the muscles??or spine cause the pain. Mechanical problems??are usually caused by an injury to the muscles or ligaments. Illness can cause back pain, but it'susually not caused by a serious illness. Mechanical problems include:? Physical activity such as sports, exercise, work, or normal activity ??? Overexertion, lifting,pushing, pulling incorrectly or too aggressively ??? Sudden twisting, bending, or stretching from anaccident, or accidental movement ??? Poor posture ??? Stretching or moving wrong, without noticing pain at the time ??? Poor coordination, lack of regular exercise (check with your doctor about this) ??? Spinal disc disease or arthritis ??? Stress Pain can also be related to , or illness such as appendicitis, bladder or kidney infections, kidney stones, and pelvic infections. Acute back pain usually gets better in??1 to 2 weeks. Back pain related to disk disease, arthritis in the spinal joints, or narrowing of the spinal canal (spinal stenosis) can become chronic and last for months or years. Unless you had a physical injury such as a car accident or fall, X-rays are usually not needed for the first assessment of back pain. If pain continues and does not respond to medical treatment, you may need X-rays and other tests. Home care Try this home care advice: ??? When in bed, try??to find a position of comfort. A firm mattress is best. Try lying flat on your back with pillows under your knees. You can also try lying on your side with your knees bent up toward your chest and a pillow between your knees. ??? At first, don't try to stretch out the sore spots. If there is a strain, it's not like the good soreness you get after exercising without an injury. In this case, stretching may make it worse. ??? Don't sit for long periods, as in a long car ride or during other??travel. This puts more stress on the lower back than standing or walking. ??? During thefirst 24 to 72 hours after an acute injury or flare up of chronic back pain, apply an ice pack to the painful area for 20 minutes and then remove it for 20 minutes. Do this over a period of 60 to 90 minutes or several times a day. This will reduce swelling and pain. Wrap the ice pack in a thin towel or plastic to protect your skin. ??? You can start with ice, then switch to heat. Heat (hot shower, hot bath, or heating pad) reduces pain and works well for muscle spasms. Heat can be applied to the painful area for 20 minutes then remove it for 20 minutes. Do this over a period of 60 to 90 minutes or several times a day. Don't sleep on a heating pad. It can lead to skin gifford or tissue damage. ??? You can alternate ice and heat therapy. Talk with your doctor about??the best treatment for your back pain. ??? Therapeutic massage can help relax the back muscles without stretching them. ??? Be aware ofsafe lifting methods. Don't lift anything without stretching first. Medicines Talk to your doctor before using medicine, especially if you have other medical problems or are taking other medicines. ??? You may use fgzq-ffq-hfrvuce medicine as directed on the bottle to control pain, unless another pain medicine was prescribed. Talk with your healthcare provider before using these medicines if you have chronic conditions such as diabetes, liver or kidney disease, stomach ulcers, or digestive bleeding. Also talk with your provider if you take blood thinners. ??? Be careful if you are given a prescription medicines, narcotics, or medicine for muscle spasms. They can cause drowsiness, affect your coordination, reflexes, and judgment. Don't drive or operate heavy machinery. ?? Follow-up care Follow up with your healthcare provider, or as advised.?? If X-rays were taken, you will be told of any new findings that may affect your care. ?? Call 911 Call 911 if any of the following occur: ??? Trouble breathing ??? Confusion ??? Very drowsy or trouble awakening ??? Fainting or loss of consciousness ??? Rapid or very slow heart rate ??? Loss of bowel or bladder control ?? When to seek medical advice Call your healthcare provider right away if any of these occur:? Pain gets worse or spreads toyour legs ??? Your bowel or bladder control changes ??? Fever ??? Blood in your urine ??? Weakness or numbness in one or both legs ??? Numbness in the groin or genital area ?? Last Reviewed Date: 2021 ?? [id number] [employer]. All rights reserved. This information is not intended as a substitute for professional medical care. Always follow your healthcare professional's instructions. ??Rk CHING, Kai Brink: PERFORM Event Display: Patient Education Leaflets Authored Date: [id number] Physical Therapy Referral ?? 250 ?? This page is FOR PRESCRIBERS Only, ? DO NOT GIVE TO THE PATIENT? Physical Therapy Referral Program for Management of Pain In an effort to reduce narcotic use, some of our ED patients will benefit from a direct referral torehab care.?? [facility] will see INSURED patients and has a system in place to avoid sending follow up paperwork to the ED prescribers.? Note: Non-[facility] physical therapy services will probably NOT be able to handle ED generated PT referrals. ?? Patients should still follow up with their PCP as soon as possible regarding their ongoing care. Inform patients that [facility] will discuss insurance when they call.?? Some insurance plans limit the amount of PT a patient can receive each year. ?? Complete the FIRST PAGE of the patient???s referral sheet. Morven or write in diagnosis Modify the timing for treatment, if needed List any major precautions (i.e.?? Non-weight bearing limb), if needed Sign, date and print your name at the bottom ? Physical Therapy Referral Form Patient Instructions: You are being referred to physical therapy.?? This form is your referral and MUST be brought to your appointment. You need to call to set up your appointment. ?? This form can be used at any [facility] location.?? A list of locations is attached.?? 1)?? DIAGNOSIS/ICD-10 ([place] one) Cervicalgia: M54.2 ? Strain of muscle, fascia and tendon at neck level: S16.1XXD? Radiculopathy, cervical region: M54.12? Mid back pain: M54.9 ? Low back pain:?? M54.5 Strain of muscle, fascia and tendon of lower back: S39.012D Radiculopathy, lumbosacral region: M54.17 Other:? 2)? [? ]? Evaluate and Treat 2 Times/Week for 4 weeks as needed [? ]?Other: 3)? [? ]? No Precautions [? ]?Precautions: ?? I hereby certify these services as medically necessary for the patient???s plan of care. Physician???s Signature Date Physician Name (printed)? Locations You can call any location below.?? Tell them you were seen in a [facility] Emergency Department and have a referral form.?? Remember to bring your referral form with you to the appointment. Nataly JOSÉ MIGUEL [address]? JOSÉ MIGU[place] [address], [address]? [address] Phone: [phone]? [place] [address]? JOSÉ MIGUEL Merino [address] [address] [facility]? [address] ? [place] [address]? [place] [address]? [address] ? [place] [address]? [place] [address]? [address]? [facility] [place] ? [address] ? Patient Care team information Care Team PersonnelName: Isra Ivan MD Position: [facility] Primary Care Physician Member Role: PCP Address: Address: [address] [place] [address]- Name: Thu Coates Position: [facility] Outreach Member Role: [employer] Consulting Physician Name: Gina Vanegas RN Position: [facility] ED RN W/OE and Tasks Member Role: Patient Care Provider Name: Lisa Solomon RN Position: [facility] ED RN W/OE and Tasks Member Role: Patient Care Provider Name: Kai Beckman MD Position: [facility] Resident Member Role: Admitting Physician Address: Address: [address] [place] [address] [place] [address]- Care Team Related PersonsName: RD GARCIA Address: [address] [address] Name: MOISES WHALEN Address: [place] [address]
--- OUTSIDE RECORDS SUMMARY | 2022-04-21 20:21 | XMS_ITS | Continuity of Care Document ---
:1940 Author Organization [facility] Address [address] [place] [address]- Care Team Providers Name Role Phone Isra Ivan MD Primary Care Physician [place] [facility] [place](s): 06/07/21 - 07/07/[address] [address]- Allergies, Adverse Reactions, Alerts Substance Reaction Severity [...] Company Model MESH SOFT 7.5X15CM - BARD ([id number]) 1 Bard Unknown ELMA: No Information Assigning Authority: FDA
--- OUTSIDE RECORDS SUMMARY | 2022-04-21 20:21 | XMS_ITS | Continuity of Care Document ---
:1940 Author Organization [facility] Address [address] [place] [id number]- Care Team Providers Name Role Phone Isra Ivan MD Primary Care Physician [place] [facility] [place](s): 06/01/20 - 06/08/[address] [address]- Encounter Diagnosis Left shoulder pain (Discharge Diagnosis) - 06/01/20 Attending Physician: Isra Ivan MD Admitting Physician: [...] Dates Health Status Clinical In formant Service Left shoulder Discharge 06/01/20 pain Diagnosis Social History Social History Type Response Smoking Status Never smoker entered on: 09/18/16 Sex Medical Equipment Implanted Date:12/13/17 Target Site:Groin Right Description Quantity MRI Company Model MESH SOFT 7.5X15CM - BARD ([id number]) 1 Bard Unknown ELMA: No Information Assigning Authority: FDA
--- OUTSIDE RECORDS SUMMARY | 2022-04-21 20:21 | XMS_ITS | Continuity of Care Document ---
:1940 Author Organization [facility] Address [address] [place] [address]- Care Team Providers Name Role Phone Marzena CHING, Isra Vela Primary Care Physician Encounter [facility] Date(s): 02/20/21 - 03/22/21 [facility] [address] [place], [place] [address] Allergies, Adverse Reactions, Alerts Substance Reaction Severity [...] Company Model MESH SOFT 7.5X15CM - BARD ([id number]) 1 Bard Unknown ELMA: No Information Assigning Authority: FDA
--- OUTSIDE RECORDS SUMMARY | 2022-04-21 20:21 | XMS_ITS | Continuity of Care Document ---
:1940 Author Organization [facility] Address [address] [place] [address]- Care Team Providers Name Role Phone Isra Ivan MD Primary Care Physician Encounter [facility] [place] Date(s): 02/23/22 - 03/25/[address] [address]- Attending Physician: Gabby Ramires Admitting Physician: Admtr, [...] Safety Status Authority Number Code Unknown Unknown [id number] Unknown 07/27/22 Unknown Unknown Active Unknown 0 Patient Care team information Care Team PersonnelName: Isra Ivan MD Position: [facility] Primary Care Physician Member Role: PCP Address: Address: [address] [place] [address]- Name: Agnieszkatyler Thu Position: [facility] Outreach Member Role: Lifetime Consulting Physician Care Team Related PersonsName: RD GARCIA Address: [address] [address] Name: MOISES WHALEN Address: [place] [address]
--- OUTSIDE RECORDS SUMMARY | 2022-04-21 20:21 | XMS_ITS | Continuity of Care Document ---
:1940 Author Organization [facility] Address [address] [place] [id number]- Care Team Providers Name Role Phone Isra Ivan MD Primary Care Physician Encounter [facility] [place] Date(s): 07/06/20 - 07/13/[address] [address]- Encounter Diagnosis Depression (Discharge Diagnosis) - 07/06/20 Attending Physician: Isra Ivan MD Admitting Physician: [...] Status: Orderedsertraline 100 mg oral tablet 1 tablet, By Mouth, Daily, # 30 tablet, 0 Refills, Maintenance, 07/08/20 12:59:00 EDT, [facility] [address], 169, cm, 07/06/20 14:43:00 EDT, Height, 75.1, kg, 07/06/20 14:43:00 EDT, Dry Weight Start Date: 07/08/20 Status: OrderedTriamcinolone = 5 mg, Topically, 3 [...] Status Clinical Serv ice Informant Depression Discharge 07/06/20 Diagnosis Vital Signs Most recent to oldest [Reference Range]: 1 Height 169 cm (07/06/20 2:43 PM) Weight 75.1 kg (07/06/20 2:43 PM) Oxygen Saturation [94-100 %] 98 % (07/06/20 2:43 PM) Pulse Rate [55-90 bpm] 71 bpm (07/06/20 2:43 PM) Body Mass Index [18.5-24.99] 26.29 *H* (07/06/20 2:43 PM) Blood Pressure [90-138/55-84 mm Hg] 138/76 mm Hg (07/06/20 2:43 PM) Mode of Delivery (Oxygen) Room air (07/06/20 2:43 PM) Blood pressure sites Arm, right (07/06/20 2:43 PM) Dry Weight 75.1 kg (07/06/20 2:43 PM) Social History Social History Type Response Smoking Status Never smoker entered on: 09/18/16 Sex Medical Equipment Implanted Date:12/13/17 Target Site:Groin Right Description Quantity MRI Company Model MESH SOFT 7.5X15CM - BARD ([id number]) 1 Bard Unknown ELMA: No Information Assigning Authority: FDA
--- OUTSIDE RECORDS SUMMARY | 2022-04-21 20:21 | XMS_ITS | Continuity of Care Document ---
:1940 Author Organization [facility] Address [address] [place] [address] Drive [address] [place] [address]- Care Team Providers Name Role Phone Isra Ivan MD Primary Care Physician Encounter [facility] Date(s): 11/28/20 - 01/08/[address] [place], [place] [address] Attending Physician: Soraya MIDDLETON, Francesca Hartman Referring Physician: Isra Ivan MD Allergies, Adverse [...] Company Model MESH SOFT 7.5X15CM - BARD ([id number]) 1 Bard Unknown ELMA: No Information Assigning Authority: FDA
--- OUTSIDE RECORDS SUMMARY | 2022-04-21 20:21 | XMS_ITS | Continuity of Care Document ---
:1940 Author Organization [facility] Address Unavailable , Care Team Providers Name Role Phone Isra Ivan MD Primary Care Physician En[place] [facility] [place] Date(s): 05/23/21 - 05/30/21 [facility] Attending Physician: Radha Barksdale MD Admitting Physician: Radha Barksdale MD Referring Physician: Isra Ivan MD Allergies, [...] 06/23/18 10:34:52 EDT Start Date: 06/23/18 Status: Orderedibuprofen 600 mg oral tablet 600 [...] Company Model MESH SOFT 7.5X15CM - BARD ([id number]) 1 Bard Unknown ELMA: No Information Assigning Authority: FDA
--- OUTSIDE RECORDS SUMMARY | 2022-04-21 20:21 | XMS_ITS | Continuity of Care Document ---
:1940 Author Organization [facility] Address [address] [place] [address]- Care Team Providers Name Role Phone Isra Ivan MD Primary Care Physician Encounter [facility] [place] Date(s): 06/23/21 - 07/23/[address] [address]- Allergies, Adverse Reactions, Alerts Substance Reaction Severity [...] Company Model MESH SOFT 7.5X15CM - BARD ([id number]) 1 Bard Unknown ELMA: No Information Assigning Authority: FDA
--- OUTSIDE RECORDS SUMMARY | 2022-04-21 20:22 | XMS_ITS | Continuity of Care Document ---
:1940 Author Organization [facility] Address [address] [place] [address]- Care Team Providers Name Role Phone Isra Ivan MD Primary Care Physician Encounter [facility] [place] Date(s): 06/30/21 - 07/07/[address] [address]- Attending Physician: Isra Ivan MD Admitting Physician: [...] Company Model MESH SOFT 7.5X15CM - BARD ([id number]) 1 Bard Unknown ELMA: No Information Assigning Authority: FDA
--- OUTSIDE RECORDS SUMMARY | 2022-04-21 20:22 | XMS_ITS | Continuity of Care Document ---
:1940 Author Organization [facility] Address [address] [place] [address]- Care Team Providers Name Role Phone Isra Ivan MD Primary Care Physician [facility] [place] Date(s): 03/08/21 - 04/07/[address] [address]- Attending Physician: Gabby Ramires Admitting Physician: Admtr, [...] Company Model MESH SOFT 7.5X15CM - BARD ([id number]) 1 Bard Unknown ELMA: No Information Assigning Authority: FDA
--- OUTSIDE RECORDS SUMMARY | 2022-04-21 20:22 | XMS_ITS | Continuity of Care Document ---
:1940 Author Organization [facility] Address [address] [place] [address]- Care Team Providers Name Role Phone Carlos Alberto Correa MD Primary Care Physician [place] [facility] [place] 10/29/19 - 10/29/19 [place] [address]- [facility] [phone] Encounter Diagnosis Groin pain (Final) - 10/29/19 Discharge Disposition: A-D/C AMA Attending Physician: Faith Reddy DO Admitting Physician: Faith Reddy DO Referring Physician: Not on Staff, Referring MD [...] Replace Required Details, Route to Pharmacy Electronically, [id number]... Start Date: 12/10/16 Status: OrderedNeurontin 300 mg oral capsule 300 mg, 1, capsule, By Mouth, Daily at bedtime, # 30 capsule, Refills 2, Tot. Refills 2, Maintenance, 12/10/16 10:11:38, Route to Pharmacy Electronically, [id number], [facility] [address] Start Date: 12/10/16 Stop Date: 03/10/17 Status: [...] via right glut tolerated well lot # [id number] exp 01/2020 [facility] [id number], # 0.5 mL, 0 Refills, Maintenance, 01/08/18 [...] Active Vital Signs Most recent to oldest [Reference Range]: 1 Height 170 cm (10/29/19 9:32 AM) Weight 68 kg (10/29/19 9:32 AM) Oxygen Saturation [94-100 %] 96 % (10/29/19 9:32 AM) Pulse Rate [55-90 bpm] 73 bpm (10/29/19 9:32 AM) Respiratory Rate [16-30 br/min] 18 br/min (10/29/19 9:32 AM) Temperature [96.8-100.4 DegF] 97.2 DegF (10/29/19 9:32 AM) Mode of Delivery (Oxygen) Room air (10/29/19 9:32 AM) Temperature Route Oral (10/29/19 9:32 AM) Dry Weight 68 kg (10/29/19 9:32 AM) Weight Obtained Via Patient/family stated (10/29/19 9:32 AM) Social History Social History Type Response Smoking Status Never smoker entered on: 09/18/16 Sex Medical Equipment Implanted Date:12/13/17 Target Site:Groin Right Description Quantity MRI Company Model MESH SOFT 7.5X15CM - BARD ([id number]) 1 Bard Unknown ELMA: No Information Assigning Authority: FDA
--- OUTSIDE RECORDS SUMMARY | 2022-04-21 20:22 | XMS_ITS | Continuity of Care Document ---
:1940 Author Organization [facility] Address [address] [place] [address]- Care Team Providers Name Role Phone Isra Ivan MD Primary Care Physician Encounter [facility] [place] Date(s): 09/14/20 - 10/14/[address] [address]- Attending Physician: AdmGabby john Admitting Physician: AdmtrGabby Referring Physician: Admtr, Ar8 [...] Company Model MESH SOFT 7.5X15CM - BARD ([id number]) 1 Bard Unknown ELMA: No Information Assigning Authority: FDA
--- OUTSIDE RECORDS SUMMARY | 2022-04-21 20:22 | XMS_ITS | Continuity of Care Document ---
:1940 Author Organization [facility] n[facility] Address [address] [place] [address]- Care Team Providers Name Role Phone Isra Ivan MD Primary Care Physician Encounter [facility] [place] Date(s): 12/08/20 - 12/08/[address] [address]- Discharge Disposition: A-D/C Walkout Attending Physician: Giovanni Patrick MD Admitting Physician: Giovanni Patrick MD Referring Physician: Not on Staff, Referring [...] Company Model MESH SOFT 7.5X15CM - BARD ([id number]) 1 Bard Unknown ELMA: No Information Assigning Authority: FDA
--- OUTSIDE RECORDS SUMMARY | 2022-04-21 20:22 | XMS_ITS | Continuity of Care Document ---
:1940 Author Organization [facility] Address [address] [place] [address]- Care Team Providers Name Role Phone Marzena CHING, Isra Vela Primary Care Physician Encounter [facility] [place] Date(s): 02/23/22 - 03/02/[address] [address]- Encounter Diagnosis Chronic low back pain (Discharge Diagnosis) - 02/22/22 Left hip pain (Discharge Diagnosis) - 02/22/22 Attending Physician: Merlyn Moss MD Admitting Physician: Merlyn Moss MD Referring Physician: Shala Ivan MD Allergies, Adverse Reactions, Alerts Substance [...] International_Units, By Mouth, Daily, 0 Refills, Maintenance, 10/23/20 12:02:00 EDT, Tablet Start Date: 01/22/20 Status: [...] tablet, 1 Refills, Maintenance, 08/18/21 9:51:00 EDT, [facility] - [address], [...] 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 Diagnosis Diagnosis Type Effective Dates Health Status Clinical In formant Service Chronic low back Discharge 02/22/22 pain Diagnosis Left hip pain Discharge 02/22/22 Diagnosis Vital Signs Most recent to oldest [Reference Range]: 1 Height 167.64 cm (02/23/22 11:19 AM) Weight 78 kg (02/23/22 11:19 AM) Oxygen Saturation [94-100 %] 97 % (02/23/22 11:19 AM) Pulse Rate [55-90 bpm] 71 bpm (02/23/22 11:19 AM) Body Mass Index [18.5-24.99 kg/m2] 27.75 kg/m2 *H* (02/23/22 11:19 AM) Blood Pressure [90-138/55-84 mm Hg] 138/68 mm Hg (02/23/22 11:19 AM) Blood pressure sites Arm, right (02/23/22 11:19 AM) Weight Obtained Via Standing scale (02/23/22 11:19 AM) Social History Social History Type Response Smoking Status Never smoker entered on: 09/18/16 Sex Implantable Device List Procedure Provider Procedure Date Device Type Site Repair Hernia Inguinal Lynda CHING, Aldo 12/13/17 Unknown Groin Right Open Device Serial Lot or Manufacturing Expiration Distinct MRI Implan table Assigning Identifier Number Batch Date Date Identification Safety Status Authority Number Code Unknown Unknown [id number] Unknown 07/27/22 Unknown Unknown Active Unknown 0 Note Yue Muniz: PERFORM, SIGN, VERIFY Event Display: Patient Education/Instruction Authored Date: [id number] [facility] *[facility] Clinical Summary Name FRANSISCO STONER Age 81 Years 1940 PCP Marzena CHING, Isra Vela PCP Visit Date 02/23/2022 11:17:00 Additional Instructions: Scheduled Appointments?? Future Appointments ?No Future Appointments Scheduled Follow-Up Instructions ?? Diagnosis Pain in left hip; Low back pain Medications: Please continue your medications until treatment is completed or stopped by your provider. Discuss any questions related to medications with your provider. Medications to Continue with No Changes These medications were not printed or sent to your pharmacy Ascorbic Acid (Vitamin C) Oral Daily. Next Dose: Cholecalciferol (cholecalciferol 400 iu oral tablet) 400 International Unit Oral Daily. Next Dose: Ibuprofen (ibuprofen 600 mg oral tablet) 1 tab(s) Oral every 6 hours as needed for pain for 5 Days. not to exceed 3200 mg/day with food or milk. Refills: 0. Next Dose: Melatonin (melatonin 5 mg oral tablet) Oral Daily at Bedtime. Next Dose: Miscellaneous Rx (PT evaluate and treat for left shoulder pain) ICD-10 R53.1 weakness. Refills: 0. Next Dose: Multivitamin (Vitamin B Complex oral tablet, extended release) 1 tab(s) Oral Daily. Next Dose: [place]-3 Polyunsaturated Fatty Acids (Fish Oil) Oral. Next Dose: PEG Electrolyte Solution (Golytely - oral powder for reconstitution) 240 Milliliter Oral every 15 minutes. Start at 5pm the night before the procedure drink half Drink the other half 6 hours before procedure. Refills: 0. Next Dose: PEG Electrolyte Solution (Golytely - oral powder for reconstitution) 240 Milliliter Oral every 15 minutes. Follow colonoscopy prep instructions; Drink half at 5 pm night before procedure; drink half 6 hrs before colonoscopy time.. Refills: 0. Next Dose: Sertraline (sertraline 100 mg oral tablet) 1.5 tab(s) Oral Daily. Refills: 1. Next Dose: Triamcinolone 5 Milligram Topically 3 times a day. Next Dose: Vitamin A & D Topical (Vitamin A & D) 1 applicator Topically 4 times a day. Next Dose: Allergy Info:?? Pollen; Latex Medications Given This Visit Future Orders ?No future orders Vital Signs Height 167.64 cm Weight 78 kg BMI 27.75 kg/m2 Blood Pressure 138 mm Hg/68 mm Hg Temperature Pulse Rate 71 bpm Respiratory Rate 02 Sat Mode of Delivery 97 %/ You can now view a summary of your hospital visit from the comfort of your home through a free online portal called [employer]ESA. PEVESA is a website that allows you to securely view yourmedical information including discharge summary, medications and follow-up visits. ??You can also send a secure electronic message to your doctor???s office to request appointments, renew medications or just ask a question. You can enroll at [email or web address] or register during your next office visit. Disclaimer:?? The information provided is of a general nature and is intended to be used in conjunction with the recommendations and advice of your health care practitioner. ??Every effort has been made to ensure that the information provided is accurate and complete at the time it is provided to you however, as your needs change, or, as new ??information becomes available, different or additional instructions may be required. If you have questions, please consult with your primary care provider or pharmacist, as appropriate.??This information is not intended to serve as substitution for assessment and evaluation by a qualified health care provider. If you do not have a primary care provider, you may find a [facility] provider by calling [facility] at [phone]. For information about the plan of care including goals and instructions for your diagnosis, please see the patient education orders section of this document. Patient Education Materials?? The content of this educational material or handout may have been modified, supplemented, or adaptedfrom its original content and format to support your individualized medical care. Patient Care team information Care Team PersonnelName: Isra Ivan MD Position: [facility] Primary Care Physician Member Role: PCP Address: Address: [address] [place] [address]- Name: Thu Coates Position: [facility] Outreach Member Role: Lifetime Consulting Physician Care Team Related PersonsName: RD GARCIA Address: [address] [address] Name: MOISES WHALEN Address: [place] [address]
--- OUTSIDE RECORDS SUMMARY | 2022-04-21 20:22 | XMS_ITS | Continuity of Care Document ---
:1940 [facility] Address [address] [id number]- Care Team Providers Name Role Phone Isra Ivan MD Primary Care Physician Encounter [facility] [place] Date(s): 06/02/20 - 07/02/[address] [address]- Allergies, Adverse Reactions, Alerts Substance Reaction Severity [...] Company Model MESH SOFT 7.5X15CM - BARD ([id number]) 1 Bard Unknown ELMA: No Information Assigning Authority: FDA
--- OUTSIDE RECORDS SUMMARY | 2022-04-21 20:22 | XMS_ITS | Continuity of Care Document ---
:1940 Author Organization [facility] Address [address] [place] [address]- Care Team Providers Name Role Phone Marzena CHING, Isra Vela Primary Care Physician [place] [facility] [place] [facility] [place] Date(s): 12/27/20 - 01/26/[address] [address]- Allergies, Adverse Reactions, Alerts Substance Reaction Severity [...] Company Model MESH SOFT 7.5X15CM - BARD ([id number]) 1 Bard Unknown ELMA: No Information Assigning Authority: FDA
--- OUTSIDE RECORDS SUMMARY | 2022-04-21 20:22 | XMS_ITS | Continuity of Care Document ---
:1940 Author Organization [facility] Address [address] [place] [address]- Care Team Providers Name Role Phone Carlos Alberto Correa MD Primary Care Physician Encounter [facility] [place] Date(s): 02/17/19 - 03/22/19 [facility] [address] [place] [address]- [facility] Attending Physician: Carlos Alberto Correa MD Allergies, [...] Replace Required Details, Route to Pharmacy Electronically, [id number]... Start Date: 12/10/16 Status: OrderedNeurontin 300 mg oral capsule 300 mg, 1, capsule, By Mouth, Daily at bedtime, # 30 capsule, Refills 2, Tot. Refills 2, Maintenance, 12/10/16 10:11:38, Route to Pharmacy Electronically, [id number], [facility]- [address] [place] [address] Start Date: 12/10/16 Stop Date: 03/10/17 Status: [...] via right glut tolerated well lot # [id number] exp 01/2020 [facility] [id number], # 0.5 mL, 0 Refills, Maintenance, 01/08/18 [...] Company Model MESH SOFT 7.5X15CM - BARD ([id number]) 1 Bard Unknown ELMA: No Information Assigning Authority: FDA
--- OUTSIDE RECORDS SUMMARY | 2022-04-21 20:22 | XMS_ITS | Continuity of Care Document ---
:1940 Author Organization [facility] Address [address] [place] [address]- Care Team Providers Name Role Phone Isra Ivan MD Primary Care Physician En[place] [facility] [place] Date(s): 03/08/21 - 03/15/[address] [address]- Encounter Diagnosis Anemia (Discharge Diagnosis) - 03/08/21 Left rotator cuff tear (Discharge Diagnosis) - 03/08/21 Housing situation unstable (Discharge Diagnosis) - 03/08/21 Attending Physician: Isra Ivan MD Admitting Physician: [...] Dates Health Status Clinical In formant Service Anemia Discharge 03/08/21 Diagnosis Left rotator Discharge 03/08/21 cuff tear Diagnosis Housing Discharge 03/08/21 situation Diagnosis unstable Vital Signs Most recent to oldest [Reference Range]: 1 Height 168 cm (03/08/21 11:31 AM) Weight 75.2 kg (03/08/21 11:31 AM) Oxygen Saturation [94-100 %] 98 % (03/08/21 11:31 AM) Pulse Rate [55-90 bpm] 71 bpm (03/08/21 11:31 AM) Body Mass Index [18.5-24.99] 26.64 *H* (03/08/21 11:31 AM) Blood Pressure [90-138/55-84 mm Hg] 100/58 mm Hg (03/08/21 11:31 AM) Blood pressure sites Arm, right (03/08/21 11:31 AM) Social History Social History Type Response Smoking Status Never smoker entered on: 09/18/16 Sex Medical Equipment Implanted Date:12/13/17 Target Site:Groin Right Description Quantity MRI Company Model MESH SOFT 7.5X15CM - BARD ([id number]) 1 Bard Unknown ELMA: No Information Assigning Authority: FDA
--- OUTSIDE RECORDS SUMMARY | 2022-04-21 20:22 | XMS_ITS | Continuity of Care Document ---
:1940 Author Organization [facility] Address [address] [place] [address]- Care Team Providers Name Role Phone Marzena CHING, Isra Vela Primary Care Physician Encounter [facility] [place] Date(s): 11/25/20 - 12/25/[address] [address]- Attending Physician: Gabby Ramires Admitting Physician: AdmtrGabby [...] Company Model MESH SOFT 7.5X15CM - BARD ([id number]) 1 Bard Unknown ELMA: No Information Assigning Authority: FDA
--- OUTSIDE RECORDS SUMMARY | 2022-04-21 20:22 | XMS_ITS | Continuity of Care Document ---
:1940 Author Organization [facility] Address [address] [place] [address]- Care Team Providers Name Role Phone Isra Ivan MD Primary Care Physician Encounter [facility] [place] Date(s): 05/14/20 - 05/14/[address] [address]- Encounter Diagnosis Acute pain of left shoulder (Final) - 05/14/20 Chronic right shoulder pain (Final) - 05/14/20 Discharge Disposition: A-D/C Home Attending Physician: Blake [...] Exam Date Time Procedure Performing Provider Status 05/14/20 6:25 PM Shoulder Min 2 Views Left Caroline Ward; Mac (Verified) Notes:(Shoulder Min 2 Views Left) Reason For Exam: with Pain;TraumaRESULT: Shoulder Min 2 Views Left Shoulder Min 2 Views Left INDICATION: Hx of Present Illness: Pt fell 2 days ago dislocated his left shoulder and re injured rtshoulder wants to make sure his shoulder is okeay moving all extremties; Reason: Trauma; with Pain; Clinical Question(s): Fracture COMPARISON: 05/12/2020 FINDINGS: There is mild degenerative hypertrophy of the left acromioclavicular joint. There is no dislocation of the left shoulder joint. There is calcification density adjacent to the lateral humeral head, suggesting calcific tendinitis. There is mild concavity at the greater tuberosity, suspicious for Hill-Sachs deformity. IMPRESSION: No dislocation. Mild concavity at the left humeral greater tuberosity, suspicious for Hill-Sachs deformity. WSN: [id number] Ordering Physician: Guerda Lo Dictated By: Edelmira Qureshi MD Dictated Date/Time: 05/14/20 6:35 pm Reviewed By: Edelmira Qureshi MD Signed By: Edelmira Qureshi MD Signed Date/Time: 05/14/20 6:35 pm Transcribed By: MEY Transcribed Date/Time: 05/14/20 6:33 pm Vital Signs Most recent to oldest [Reference Range]: 1 Height 169 cm (05/14/20 3:30 PM) Weight 66 kg (05/14/20 3:30 PM) Oxygen Saturation [94-100 %] 99 % (05/14/20 3:30 PM) Pulse Rate [55-90 bpm] 72 bpm (05/14/20 3:30 PM) Blood Pressure [90-138/55-84 mm Hg] 118/81 mm Hg (05/14/20 3:30 PM) Respiratory Rate [16-30 br/min] 18 br/min (05/14/20 3:30 PM) Temperature [96.8-100.4 DegF] 98.4 DegF (05/14/20 3:30 PM) Mode of Delivery (Oxygen) Room air (05/14/20 3:30 PM) Blood pressure sites Arm, right (05/14/20 3:30 PM) Temperature Route Oral (05/14/20 3:30 PM) Dry Weight 66 kg (05/14/20 3:30 PM) Dry Weight Obtained Via Patient/family stated (05/14/20 3:30 PM) Social History Social History Type Response Smoking Status Never smoker entered on: 09/18/16 Sex Medical Equipment Implanted Date:12/13/17 Target Site:Groin Right Description Quantity MRI Company Model MESH SOFT 7.5X15CM - BARD ([id number]) 1 Bard Unknown ELMA: No Information Assigning Authority: FDA
--- OUTSIDE RECORDS SUMMARY | 2022-04-21 20:22 | XMS_ITS | Continuity of Care Document ---
:1940 Author Organization [facility] Address [address] [place] [address]- Care Team Providers Name Role Phone Isra Ivan MD Primary Care Physician Encounter [facility] [place] Date(s): 10/12/20 - 11/11/[address] [address]- Allergies, Adverse Reactions, Alerts Substance Reaction Severity [...] Company Model MESH SOFT 7.5X15CM - BARD ([id number]) 1 Bard Unknown ELMA: No Information Assigning Authority: FDA
--- OUTSIDE RECORDS SUMMARY | 2022-04-21 20:22 | XMS_ITS | Continuity of Care Document ---
:1940 Author Organization [facility] Address [address] [place] [address]- Care Team Providers Name Role Phone Isra Ivan MD Primary Care Physician En[place] [facility] [place] Date(s): 03/13/22 - 04/12/[address] [address] Attending Physician: Gabby Ramires Admitting Physician: Gabby Ramires Referring Physician: AdmtrGabby Allergies, Adverse Reactions, Alerts [...] Maintenance, 03/29/22 15:38:00 EST, Gel, [id number], Partial fill upon patient request if the [...] Safety Status Authority Number Code Unknown Unknown [id number] Unknown 07/27/22 Unknown Unknown Active Unknown 0 Patient Care team information Care Team PersonnelName: Isra vIan MD Position: S Primary Care Physician Member Role: PCP Address: Address: [address] [place] [address]- [place] Name: Thu Coates Position: [facility] Outreach Member Role: Lifetime Consulting Physician Care Team Related PersonsName: RD GARCIA Address: home [address] [place] [address] Name: MOISES WHALEN Address: [place] [address]
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
--- OUTSIDE RECORDS SUMMARY | 2022-04-21 20:22 | XMS_ITS | Continuity of Care Document ---
:1940 Author Organization [facility] Address [address] [place] [address]- Care Team Providers Name Role Phone Isra Ivan MD Primary Care Physician Encounter [facility] [place] Date(s): 12/30/20 - 01/06/[address] [address]- Encounter Diagnosis Visit for suture removal (Discharge Diagnosis) - 12/30/20 Attending Physician: Isra Ivan MD Admitting Physician: [...] Dates Health Status Clinical In formant Service Visit for suture Discharge 12/30/20 removal Diagnosis Vital Signs Most recent to oldest [Reference Range]: 1 Height 168 cm (12/30/20 2:24 PM) Oxygen Saturation [94-100 %] 98 % (12/30/20 2:24 PM) Pulse Rate [55-90 bpm] 75 bpm (12/30/20 2:24 PM) Social History Social History Type Response Smoking Status Never smoker entered on: 09/18/16 Sex Medical Equipment Implanted Date:12/13/17 Target Site:Groin Right Description Quantity MRI Company Model MESH SOFT 7.5X15CM - BARD ([id number]) 1 Bard Unknown ELMA: No Information Assigning Authority: FDA
--- OUTSIDE RECORDS SUMMARY | 2022-04-21 20:22 | XMS_ITS | Continuity of Care Document ---
:1940 Author Organization [facility] Address [address] [id number]- Care Team Providers Name Role Phone Isra Ivan MD Primary Care Physician Encounter [facility] [place] Date(s): 06/15/20 - 07/15/[address] [address]- Allergies, Adverse Reactions, Alerts Substance Reaction Severity [...] Company Model MESH SOFT 7.5X15CM - BARD ([id number]) 1 Bard Unknown ELMA: No Information Assigning Authority: FDA
--- OUTSIDE RECORDS SUMMARY | 2022-04-21 20:22 | XMS_ITS | Continuity of Care Document ---
:1940 Author Organization [facility] Address [address] [place] [address]- Care Team Providers Name Role Phone Marzena CHING, Isra Vela Primary Care Physician Encounter [facility] [place] Date(s): 11/10/20 - 12/10/[address] [address]- Allergies, Adverse Reactions, Alerts Substance Reaction Severity Status Latex ? rash Persistent Mild Active Pollen Active Immunizations Given and Recorded Vaccine Date Status Refusal Reason influenza virus vaccine, inactivated 01/16/20 Given pneumococcal 13-valent vaccine 01/24/16 Given pneumococcal 23-valent vaccine1 12/08/13 Given tetanus-diphtheria toxoids (Td)2 12/08/13 Given tetanus-diphtheria toxoids (Td) 07/31/04 Given Not Given Vaccine Date Status Refusal Reason tetanus/diphtheria/pertussis, acel(Tdap)3 11/26/20 Not Gi balbnia Patient Refuses 1Result Comment: [12/08/2013] vis given [...] Company Model MESH SOFT 7.5X15CM - BARD ([id number]) 1 Bard Unknown ELMA: No Information Assigning Authority: FDA
--- OUTSIDE RECORDS SUMMARY | 2022-04-21 20:22 | XMS_ITS | Continuity of Care Document ---
:1940 Author Organization [facility] Address [address] [place] [address]- Care Team Providers Name Role Phone Isra Ivan MD Primary Care Physician Encounter [facility] [place] Date(s): 08/18/21 - 08/25/[address] [address]- Encounter Diagnosis Fatigue (Discharge Diagnosis) - 08/18/21 Depression (Discharge Diagnosis) - 08/18/21 Attending Physician: Isra Ivan MD Admitting Physician: [...] Status Clinical Serv ice Informant Fatigue Discharge 08/18/21 Diagnosis Depression Discharge 08/18/21 Diagnosis Vital Signs Most recent to oldest [Reference Range]: 1 Height 168 cm (08/18/21 9:31 AM) Weight 79.5 kg (08/18/21 9:31 AM) Pulse Rate [55-90 bpm] 70 bpm (08/18/21 9:31 AM) Body Mass Index [18.5-24.99] 28.17 *H* (08/18/21 9:31 AM) Blood Pressure [90-138/55-84 mm Hg] 102/74 mm Hg (08/18/21 9:31 AM) Blood pressure sites Arm, left (08/18/21 9:31 AM) Social History Social History Type Response Smoking Status Never smoker entered on: 09/18/16 Sex Medical Equipment Implanted Date:12/13/17 Target Site:Groin Right Description Quantity MRI Company Model MESH SOFT 7.5X15CM - BARD ([id number]) 1 Bard Unknown ELMA: No Information Assigning Authority: FDA
--- OUTSIDE RECORDS SUMMARY | 2022-04-21 20:22 | XMS_ITS | Continuity of Care Document ---
:1940 Author Organization [facility] Address [address] [place] [address] Drive [address] [place] [address]- Care Team Providers Name Role Phone Marzena CHING, Isra Vela Primary Care Physician Encounter [facility] Date(s): 12/09/20 - 01/08/[address] [place], [place] [address] Attending Physician: Gabby Ramires Admitting Physician: AdmtrGabby [...] Company Model MESH SOFT 7.5X15CM - BARD ([id number]) 1 Bard Unknown ELMA: No Information Assigning Authority: FDA
--- OUTSIDE RECORDS SUMMARY | 2022-04-21 20:22 | XMS_ITS | Continuity of Care Document ---
:1940 Author Organization [facility] Address [address] [place] [address]- Care Team Providers Name Role Phone Isra Ivan MD Primary Care Physician Encounter [facility] [place] Date(s): 08/05/20 - 09/10/[address] [address]- Attending Physician: Isra Ivan MD Admitting Physician: [...] Company Model MESH SOFT 7.5X15CM - BARD ([id number]) 1 Bard Unknown ELMA: No Information Assigning Authority: FDA
--- OUTSIDE RECORDS SUMMARY | 2022-04-21 20:22 | XMS_ITS | Continuity of Care Document ---
:1940 Author Organization [facility] Address [address] [place] [address]- Care Team Providers Name Role Phone Isra Ivan MD Primary Care Physician Encounter [facility] [place] Date(s): 07/05/20 - 08/04/[address] [address]- Allergies, Adverse Reactions, Alerts Substance Reaction Severity [...] Company Model MESH SOFT 7.5X15CM - BARD ([id number]) 1 Bard Unknown ELMA: No Information Assigning Authority: FDA
--- OUTSIDE RECORDS SUMMARY | 2022-04-21 20:22 | XMS_ITS | Continuity of Care Document ---
:1940 Author Organization [facility] n[facility] Address [address] [place] [address]- Care Team Providers Name Role Phone Isra Ivan MD Primary Care Physician Encounter [facility] [place] Date(s): 11/08/20 - 11/08/[address] [address]- Discharge Disposition: A-D/C Walkout Attending Physician: Blake Banda MD Admitting Physician: [...] Company Model MESH SOFT 7.5X15CM - BARD ([id number]) 1 Bard Unknown ELMA: No Information Assigning Authority: FDA
--- OUTSIDE RECORDS SUMMARY | 2022-04-21 20:23 | XMS_ITS | Continuity of Care Document ---
:1940 Author Organization [facility] Address [address] [place] [address]- Care Team Providers Name Role Phone Isra Ivan MD Primary Care Physician Encounter [facility] [place] Date(s): 08/03/20 - 08/10/[address] [address]- Encounter Diagnosis Depression (Discharge Diagnosis) - 08/03/20 Left rotator cuff tear (Discharge Diagnosis) - 08/03/20 Attending Physician: Isra Ivan MD Admitting Physician: [...] Active Diagnosis Diagnosis Type Effective Dates Health Clinical Infor [facility] Status Service Depression Discharge 08/03/20 Diagnosis Left rotator cuff Discharge 08/03/20 tear Diagnosis Social History Social History Type Response Smoking Status Never smoker entered on: 09/18/16 Sex Medical Equipment Implanted Date:12/13/17 Target Site:Groin Right Description Quantity MRI Company Model MESH SOFT 7.5X15CM - BARD ([id number]) 1 Bard Unknown ELMA: No Information Assigning Authority: FDA
--- OUTSIDE RECORDS SUMMARY | 2022-04-21 20:23 | XMS_ITS | Continuity of Care Document ---
:1940 Author Organization [facility] Address [address] [place] [address]- Care Team Providers Name Role Phone Isra Ivan MD Primary Care Physician Encounter [facility] [place] Date(s): 06/01/20 - 07/01/[address] [address]- Attending Physician: Gabby Ramires Admitting Physician: AdmtrGabby [...] cm, 01/22/20 9:47:00 EDT, Height, 72.5, kg, 10/16/20 18:59:00 EDT,Dry Weight Start Date: 05/09/20 Status: [...] MRI Company Model MESH SOFT 7.5X15CM - EDCOUCH ([id number]) 1 Bard Unknown ELMA: No Information Assigning Authority: FDA
--- OUTSIDE RECORDS SUMMARY | 2022-04-21 20:23 | XMS_ITS | Continuity of Care Document ---
:1940 Author Organization [facility] Address Unavailable , Care Team Providers Name Role Phone Isra Ivan MD Primary Care Physician En[place] [facility] [place] Date(s): 05/23/21 - 06/22/21 [facility] Attending Physician: Gabby Ramires Admitting Physician: Gabby Ramires Referring Physician: trGabby Allergies, Adverse Reactions, Alerts Substance Reaction Severity [...] mL, 0 Refills, Maintenance, 06/20/21 18:05:00 EDT, [facility] - [address], Partial... Start [...] Company Model MESH SOFT 7.5X15CM - BARD ([id number]) 1 Bard Unknown ELMA: No Information Assigning Authority: FDA
--- OUTSIDE RECORDS SUMMARY | 2022-04-21 20:23 | XMS_ITS | Continuity of Care Document ---
:1940 Author Organization [facility] Address [address] [place] [address]- Care Team Providers Name Role Phone Isra Ivan MD Primary Care Physician Encounter [facility] [place] Date(s): 11/25/20 - 12/02/[address] [address]- Attending Physician: Isra Ivan MD Admitting Physician: [...] Company Model MESH SOFT 7.5X15CM - BARD ([id number]) 1 Bard Unknown ELMA: No Information Assigning Authority: FDA
--- OUTSIDE RECORDS SUMMARY | 2022-04-21 20:23 | XMS_ITS | Continuity of Care Document ---
:1940 Author Organization [facility] Address [address] [place] [address]- Care Team Providers Name Role Phone Marzena CHING, Isra Vela Primary Care Physician Encounter [facility] [place] Date(s): 11/08/20 - 12/10/[address] [address]- Attending Physician: Judy Gibbs NP Admitting Physician: [...] Company Model MESH SOFT 7.5X15CM - BARD ([id number]) 1 Bard Unknown ELMA: No Information Assigning Authority: FDA
--- OUTSIDE RECORDS SUMMARY | 2022-04-21 20:23 | XMS_ITS | Continuity of Care Document ---
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 Start Date: 11/26/20 Stop Date: 12/01/20 Status: Orderedcholecalciferol 400 iu oral tablet = [...] Exam Date Time Procedure Performing Provider Status 11/26/20 11:17 AM Knee 1 or 2 Views Left Jarocho Cunningham; Auth (Ve rified) Notes:(Knee 1 or 2 Views Left) Reason For Exam: Decreased ROMRESULT: Knee 1 or 2 Views Left Knee 1 or 2 Views Left, 2 views Hx of Present Illness: Fall. COMPARISON: None. FINDINGS: There is no evidence of acute or healing fracture, dislocation or bone lesion. Minimal tricompartmental degenerative change. Prepatellar soft tissue edema. Arteriovascular calcifications. No evidence of joint effusion. IMPRESSION: Prepatellar soft tissue edema, likely soft tissue contusion. No fracture or malalignment. No joint effusion. WSN: [id number] Ordering Physician: Kai Beckman Dictated By: Jt Quick MD Dictated Date/Time: 11/26/20 12:03 p Reviewed By: Jt Quick MD Signed By: Jt Quick MD Signed Date/Time: 11/26/20 12:03 pm Transcribed By: MEY Transcribed Date/Time: 11/26/20 12:01 pm Vital Signs Most recent to oldest [Reference Range]: 1 2 Height 168 cm (11/26/20 8:30 AM) Weight 75 kg (11/26/20 8:30 AM) Oxygen Saturation [94-100 %] 95 % 98 % (11/26/20 1:45 PM) (11/26/20 8:30 AM) Pulse Rate [55-90 bpm] 72 bpm 71 bpm (11/26/20 1:45 PM) (11/26/20 8:30 AM) Blood Pressure [90-138/55-84 mm Hg] 117/72 mm Hg 129/ 74 mm Hg (11/26/20 1:45 PM) (11/26/20 8:30 AM) Respiratory Rate [16-30 br/min] 16 br/min 18 br/mi n (11/26/20 1:45 PM) (11/26/20 8:30 AM) Temperature [96.8-100.4 DegF] 98.0 DegF 97.9 DegF (11/26/20 1:45 PM) (11/26/20 8:30 AM) Mode of Delivery (Oxygen) Room air Room air (11/26/20 1:45 PM) (11/26/20 8:30 AM) Blood pressure sites Arm, right (11/26/20 8:30 AM) Temperature Route Oral Oral (11/26/20 1:45 PM) (11/26/20 8:30 AM) Dry Weight 75 kg (11/26/20 8:30 AM) Social History Social History Type Response Smoking Status Never smoker entered on: 09/18/16 Sex Medical Equipment Implanted Date:12/13/17 Target Site:Groin Right Description Quantity MRI Company Model MESH SOFT 7.5X15CM - BARD ([id number]) 1 Bard Unknown ELMA: No Information Assigning Authority: FDA
--- OUTSIDE RECORDS SUMMARY | 2022-04-21 20:23 | XMS_ITS | Continuity of Care Document ---
:1940 Author Organization [facility] Address [address] [id number]- Care Team Providers Name Role Phone Isra Ivan MD Primary Care Physician [place] [facility] [place] 08/03/20 - 10/12/[address] [address]- Attending Physician: Isra Ivan MD Admitting Physician: [...] Company Model MESH SOFT 7.5X15CM - BARD ([id number]) 1 Bard Unknown ELMA: No Information Assigning Authority: FDA
--- OUTSIDE RECORDS SUMMARY | 2022-04-21 20:23 | XMS_ITS | Continuity of Care Document ---
:1940 Author Organization [facility] Address [address] [place] [address]- Care Team Providers Name Role Phone Carlos Alberto Correa MD Primary Care Physician Encounter [facility] [place] Date(s): 01/15/20 - 01/22/20 [facility] [address] [place] [address]- [facility] Discharge Disposition: A-D/C Home Attending Physician: Shala Kiran MD Admitting Physician: Shala Kiran MD Referring Physician: Not on Staff, Referring [...] oldest 1 2 3 [Reference Range]: Height 170 cm 170 cm 170 cm (01/22/20 9:47 AM) (01/21/20 9:58 PM) (01/21/20 9:13 AM) Weight 72 kg 72.5 kg 70.5 kg (01/22/20 8:26 AM) (01/15/20 6:37 PM) (01/14/20 5:00 PM) Oxygen Saturation [94-100 98 % 98 % 98 % %] (01/22/20 9:47 AM) (01/21/20 9:58 PM) (01/21/20 9:13 AM) Pulse Rate [55-90 bpm] 73 bpm 63 bpm 70 bpm (01/22/20 9:47 AM) (01/21/20 9:58 PM) (01/21/20 9:13 AM) Body Mass Index 25.09 [18.5-24.99] *H* (01/15/20 6:37 PM) Blood Pressure 106/71 mm Hg 130/77 mm Hg 99/66 mm Hg [90-138/55-84 mm Hg] (01/22/20 9:47 AM) (01/21/20 9:58 PM) (12/31 05/21 9:13 AM) Respiratory Rate [16-30 18 br/min 18 br/min 18 br/mi n br/min] (01/22/20 9:47 AM) (01/22/20 8:22 AM) (01/21/20 9:58 PM) Temperature [96.8-100.4 98.1 DegF 97.5 DegF 97.8 Deg F DegF] (01/22/20 9:47 AM) (01/21/20 9:58 PM) (10/22/20 9:13 AM) Mode of Delivery (Oxygen) Room air Room air Room a ir (01/22/20 9:47 AM) (01/21/20 9:13 AM) (01/20/20 8:57 AM) Blood pressure sites Arm, left Arm, left Arm, left (01/22/20 9:47 AM) (01/21/20 9:13 AM) (01/20/20 8:57 AM) Temperature Route Oral Temporal Oral (01/22/20 9:47 AM) (01/21/20 9:58 PM) (01/21/20 9:13 AM) Dry Weight 72.5 kg 70.5 kg (01/15/20 6:37 PM) (01/14/20 5:00 PM) Weight Obtained Via Patient/family stated (01/14/20 5:00 PM) Sensory deficits None (01/15/20 6:37 PM) Mobility assistance Independent (01/15/20 6:37 PM) Social History Social History Type Response Smoking Status Never smoker entered on: 09/18/16 Sex Medical Equipment Implanted Date:12/13/17 Target Site:Groin Right Description Quantity MRI Company Model MESH SOFT 7.5X15CM - BARD ([id number]) 1 Bard Unknown ELMA: No Information Assigning Authority: FDA
--- OUTSIDE RECORDS SUMMARY | 2022-04-21 20:23 | XMS_ITS | Continuity of Care Document ---
:1940 Author Organization [facility] Address [address] [place] [address]- Care Team Providers Name Role Phone Isra Ivan MD Primary Care Physician Encounter [facility] [place] Date(s): 11/28/20 - 11/28/[address] [address]- Discharge Disposition: A-D/C Home Attending Physician: Blake Bnada MD Admitting Physician: Blake Banda MD Referring [...] 1 2 Height 168 cm 168 cm (11/28/20 10:35 AM) (11/28/20 4:24 AM) Weight 73 kg 73 kg (11/28/20 10:35 AM) (11/28/20 4:24 AM) Oxygen Saturation [94-100 %] 97 % 97 % (11/28/20 10:35 AM) (11/28/20 4:24 AM) Pulse Rate [55-90 bpm] 67 bpm 63 bpm (11/28/20 10:35 AM) (11/28/20 4:24 AM) Body Mass Index [18.5-24.99] 25.86 *H* (11/28/20 10:35 AM) Blood Pressure [90-138/55-84 mm Hg] 149/84 mm Hg 130/ 76 mm Hg *H* (11/28/20 4:24 AM) (11/28/20 10:35 AM) Respiratory Rate [16-30 br/min] 16 br/min 16 br/mi n (11/28/20 10:35 AM) (11/28/20 4:24 AM) Temperature [96.8-100.4 DegF] 98.8 DegF 96.9 DegF (11/28/20 10:35 AM) (11/28/20 4:24 AM) Mode of Delivery (Oxygen) Room air (11/28/20 10:35 AM) Blood pressure sites Arm, right (11/28/20 10:35 AM) Temperature Route Oral Oral (11/28/20 10:35 AM) (11/28/20 4:24 AM) Dry Weight 73 kg 73 kg (11/28/20 10:35 AM) (11/28/20 4:24 AM) Social History Social History Type Response Smoking Status Never smoker entered on: 09/18/16 Sex Medical Equipment Implanted Date:12/13/17 Target Site:Groin Right Description Quantity MRI Company Model MESH SOFT 7.5X15CM - BARD ([id number]) 1 Bard Unknown ELMA: No Information Assigning Authority: FDA
--- OUTSIDE RECORDS SUMMARY | 2022-04-21 20:23 | XMS_ITS | Continuity of Care Document ---
:1940 Author Organization [facility] Address [address] [id number]- Care Team Providers Name Role Phone Isra Ivan MD Primary Care Physician [place] [facility] [place] Date(s): 04/27/20 - 05/27/[address] [address]- Allergies, Adverse Reactions, Alerts Substance Reaction Severity [...] Company Model MESH SOFT 7.5X15CM - BARD ([id number]) 1 Bard Unknown ELMA: No Information Assigning Authority: FDA
--- OUTSIDE RECORDS SUMMARY | 2022-04-21 20:23 | XMS_ITS | Continuity of Care Document ---
:1940 Author Organization [facility] Address [address] [place] [address]- Care Team Providers Name Role Phone Isra Ivan MD Primary Care Physician Encounter [facility] [place] Date(s): 06/20/21 - 07/20/[address] [address]- Allergies, Adverse Reactions, Alerts Substance Reaction Severity [...] Company Model MESH SOFT 7.5X15CM - BARD ([id number]) 1 Bard Unknown ELMA: No Information Assigning Authority: FDA
[2022-04-21 22:46] VITALS: BMI 31.6
--- NOTE | 2022-04-21 23:06 | PC.NURSE ---
pt stood up at the table in common area and fell backward. due to visual obstruction of table we could not witness pts striking head. pt is found laying supine on the floor with head elevated off floor. pt states that he struck head. pt reports being dizzy. his skin is cool and clammy. b/p 56/40 auto rechecked manual 68/30. apical hr 60's bpm and slightly irregular. pt is speaking slowly and confused. [employer] called 1. dr avendaño responded and examined pt. 2. iv angio 20# 3. pt to have stat head ct 4. pt will be transferred to med/surg for iv hydration following ct 5. sharon notified of fall.
--- NOTE | 2022-04-22 00:47 | PC.NURSE ---
pt arrived by EMS transfer from [facility]. on arrival he refuses to sign CV commitment. pt is sent to ed where Md Duran graciously files 12b commitment. on arrival, pt is brought into the sensory room where intake interview is conducted privately. pt is awake and his thought processes demonstrates a flight of ideas. he states that earlier today he drove 3 miles outside of [place] and climbed all over the large bridge there. he states that he was thinking of jumping off but changed his mind. apparently later on, the pt presented to his pcp looking for seroquel rx. at the PCP office pt mentioned his adventure to the bridge and his intention of ending his life. subsequently pt was transferred to the [facility] ED for crisis evaluation. pt is a very poor historian and has difficulty focusing on medical hx. pt speech is rapid and jumps from one topic to the next. pt is ill kempt and he makes references to having knives in his possession. security officers summoned to sensory room where the pt is wanded. no contraband found other than an i-phone. pt is ambulatory with steady gait. he states that he wears glasses but no eye glasses are located with his belongings. pt states that he has upper and lower dentures in place. he is on a regular diet. no difficulty swallowing. resp effort is regular unlabored. heart tones s1s2. abdomen benign. pt states bm yesterday which was normal. again to note pt is unable to name the pharmacy he uses. he is very forgetful and information is very sketchy.
[2022-04-22] MEDS: Acetaminophen 325 MG TABLET 650 MG PO ×3 (01:32→21:32)
[2022-04-22] MEDS: LORazepam 1 MG TABLET PO ×2 (01:38→21:33)
[2022-04-22 07:09] LABS: Cholesterol 164 mg/dL; HDL Cholesterol 34 mg/dL; LDL Cholesterol Calculated 114 mg/dl; Magnesium 1.9 mg/dL (1.6-2.6); Triglycerides 81 mg/dL
[2022-04-22 07:24] LABS: Free T4 (Free Thyroxine) 0.98 ng/dL (0.71-1.85); Thyroid Stimulating Hormone 1.13 uIU/mL (0.32-4.0)
[2022-04-22 07:28] LABS: Estimated Average Glucose 100 mg/dL; Hemoglobin A1c % 5.1 %
[2022-04-22 07:39] LABS: Folate 7.9 ng/mL (> or = 4.0); Vitamin B12 516 pg/mL (200-900)
[2022-04-22 08:45] VITALS: BP 131/79; PULSE 69; RESP 18; TEMP 35.8; O2SAT 95
--- NOTE | 2022-04-22 11:07 | HO.PM.IMCN ---
History of Present Illness Data of Consult Service Date: 04/22/22 Requesting physician: Samia Jordan Primary Care Provider: Isra Ivan MD HPI Reason for consult: medical H&P 82 year old male with history hyperlipidemia, tubular adenoma colon (last colonoscopy 12/21), BPH, chronic normocytic anemia, osteoarthritis shoulders and hips s/p b/l hip arthroplasty, chronic low back pain with lumbar stenosis, depression, hx rotator cuff tear, actinic keratosis, and atypical melanocytic hyperplasia admitted to geriatric psychiatry from [facility] with consult placed to medical for medical H&P. He denies taking any medication outpt and none reported on medication reconciliation. BP in ED was elevated at 177/109, but have been normal on the unit at 131/79. Anemia was noted to be stable at [facility] with H/H 11.6/33.9% with normal renal function and electrolyte levels. He has no complaints at this time but has been reporting intermittent left should and hip pain which he reports as chronic. XRays at the ED of left shoulder and left hip were without acute abnormality but did show degenerative changes in left shoulder. Denies etoh use, hx tobacco use, or illicit drug use. Review of Systems Review of Systems: General: No fevers, malaise, unintentional weight loss HEENT: No blurred vision, diplopia. No sore throat, nasal congestion, rhinorrhea, sinus pain, ear pain Cardiovascular: No chest pain, palpitations, or leg edema Respiratory: No shortness of breath, wheezing, cough GI: No abdominal pain, nausea, vomiting, diarrhea, constipation, melena, hematochezia : No dysuria, hematuria, increased urinary frequency, decreased urinary output MSK: No myalgia, back pain Neuro: No headaches, weakness, paresthesias Skin: No rashes or lesions [facility] Medical History Atypical melanocytic hyperplasia BPH loc w/o ur obs/LUTS Depression Eczema Housing situation unstable Hyperlipidemia Hypogonadism in male Lumbar stenosis Osteoarthritis Tubular adenoma of colon Family History (Updated 04/22/22 @ 11:17 by ANDREINA Love) Sister COPD (chronic obstructive pulmonary disease) Bipolar disorder Mother COPD (chronic obstructive pulmonary disease) CAD (coronary artery disease) Surgical History H/O colonoscopy History of bilateral hip arthroplasty History of melanoma excision Hx of repair of left rotator cuff S/P inguinal hernia repair Social History (Updated 04/22/22 @ 11:17 by ANDREINA Love) Household Members: None Housing: Apartment Alcohol intake: never Patient Tobacco Use Status: Never used Tobacco Use of substances other than those prescribed or required for medical reasons: No Currently Displaying Signs/Symptoms of Drug Intoxication Withdrawal: No Advance Directives: No Advance Directives Information Provided: No Do you have thoughts of harming others: None Do you have a plan to hurt others: No Plan Meds Allergies Allergy/AdvReac Type Severity Reaction Status Date / Time pollen extracts Allergy Unknown unknown Verified 04/21/22 14:56 latex Allergy Unknown Rash Uncoded 04/21/22 14:55 Active Medications: Current Medications Acetaminophen (Acetaminophen 325 Mg Tablet) 650 mg PO Q6H PRN PRN Reason: Headache/Pain Mild Scale (1-3) Last Admin: 04/22/22 01:32 Dose: 650 mg Al Hydroxide/Mg Hydroxide (Magnesium Hydrox/Alum Hydrox 30 Ml Oral.Susp) 30 ml PO Q6H PRN PRN Reason: Heartburn/Nausea Haloperidol (Haloperidol 1 Mg Tablet) 2 mg PO Q6H PRN PRN Reason: psychotic agitation Lorazepam (Lorazepam 1 Mg Tablet) 1 mg PO Q6H PRN PRN Reason: anxiety, agitation Last Admin: 04/22/22 01:38 Dose: 1 mg Magnesium Hydroxide (Milk Of Magnesia 30 Ml Oral.Susp) 30 ml PO DAILY PRN PRN Reason: Constipation Trazodone HCl (Trazodone Hcl 50 Mg Tablet) 50 mg PO BEDTIME PRN PRN Reason: Insomnia Physical Exam Vital Signs and Narrative: Vital Signs: Last Vital Signs Temp 96.4 F L 04/22/22 08:45 Pulse 69 04/22/22 08:45 Resp 18 04/22/22 08:45 BP 131/79 04/22/22 08:45 Pulse Ox 95 04/22/22 08:45 O2 Del Method 04/22/22 08:45 BMI result Body Mass Index 31.6 Constitutional - Awake and Alert, No apparent distress Eyes - PERRLA, EOMI Cardiovascular - S1S2, RRR, No edema Respiratory - Normal lung expansion, Normal respiratory effort, No respiratory distress, CTA bilaterally Gastrointestinal - NT / ND; +BS; No rebound or guarding Extremities - no calf tenderness bilaterally, no swelling Musculoskeletal - Normal inspection Skin - Warm/Dry Neurological - Alert & oriented to self and time, CN II-XII in tact, 5/5 strength BUE and BLE Psychological - Appropriate affect Results Labs Labs: Laboratory Results - last 24 hr 04/22/22 04/22/22 04/22/22 06:23 06:23 06:23 Estimat Average Glucose 100 Hemoglobin A1c % 5.1 Magnesium 1.9 Triglycerides 81 Cholesterol 164 LDL Cholesterol, Calc 114 HDL Cholesterol 34 Vitamin B12 516 Folate 7.9 TSH 1.13 Free T4 0.98 Assessment and Plan (1) Routine medical exam: Status: Acute Plan 82 year old male with history hyperlipidemia, tubular adenoma colon (last colonoscopy 12/21), BPH, chronic normocytic anemia, osteoarthritis shoulders and hips s/p b/l hip arthroplasty, chronic low back pain with lumbar stenosis, depression, hx rotator cuff tear, actinic keratosis, and atypical melanocytic hyperplasia admitted to geriatric psychiatry from [facility] with consult placed to medical for medical H&P. #Depression/SI -Plan per psychiatry #Hyperlipidemia- reasonably controlled -Total cholesterol 164, LDL 114 -Would not recommend statin at this #BPH -Asymptomatic #Chronic normocytic anemia -H/H stable at 11.6/33.9%, no transfusion indicated #Osteoarthritis/chronic low back pain -States he was undergoing outpt PT -Recommend tylenol and topical diclofenac if available. Can use ibuprofen 600mg q6h prn as well if topical diclofenac unavailable. Renal function and electrolytes normal at [facility] ED Thank you for allowing me to participate in this consult. Signing off at this time. Please do not hesitate to call for further questions. Time Spent With Patient Time: Total time managing care of this patient today ____ minutes.
--- NOTE | 2022-04-22 12:00 | P.HPPS_ITS ---
HPI Date of Service: 04/22/22 Chief Complaint: Unspecified Bipolar & Related Disorder Sources of Information: patient interviewed, chart reviewed and crisis/core team assessment reviewed HPI Subjective Notes: Section 12B Healthcare Proxy: No Guardianship: No Medical Problems Affecting Mental Status: No Narrative: 82 yo male, hx of bipolar depression, resident of [place], sent in transfer from [facility]. Pt to ER when he was found going to a medical office to ask for medicine refills. At that time he reported SI with plan to jump from a local bridge. Identifes a precipitant as trauma from the sale of his home, which he was forced to sell and endured a long legal adair over for the past ~7 months due to allowing homeless people to remain in the home. 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 Pt currently homeless, stays with friends, said to have stayed in a tree house. Off all meds. Met with pt who reports he is admitted for shoulder pain and hip pain. Denies hx of depression, denies SI, denies telling [facility] team he was suicidal. Limited historian. When asked about Sertraline he states we should re-start as it is my antidepressant and I think I need it. Past Psychiatric History: IP: [facility] 12/2019 OP: No connections currently Trials: Sertraline, Hydroxyzine Medical Evaluation Reviewed: Yes [facility] Medical History (Updated 04/22/22 @ 18:51 by Samia Jordan APRN) Atypical melanocytic hyperplasia Bipolar disorder, now depressed BPH loc w/o ur obs/LUTS Depression Eczema Housing situation unstable Hyperlipidemia Hypogonadism in male Lumbar stenosis Osteoarthritis PTSD (post-traumatic stress disorder) Tubular adenoma of colon Surgical History H/O colonoscopy History of bilateral hip arthroplasty History of melanoma excision Hx of repair of left rotator cuff S/P inguinal hernia repair Family History: Depression, Bipolar Disorder Social History: One sister, one brother Never , No children 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 Legally on parole- hx of disputes with tenants and arrest for burning flags (activist activity) Currently receives SSI/SSDI Substance History: Alcohol 3-5 x week No toxicology on transfer Trauma History: Loss of his home Diagnostics Vital Signs (24Hr): Vital Signs - 24 hr 04/21/22 18:00 04/22/22 08:45 Temperature 97.4 F 96.4 F L Pulse Rate 78 69 Respiratory Rate 17 18 Blood Pressure 171/100 H 131/79 Pulse Oximetry 94 95 Oxygen Delivery Method Room Air Room Air BMI result Body Mass Index 31.6 RBC 3.74 HGB 11.6 HCT 33.9 Glu 104 EKG- First degree AVB, PAC, NonSpec TWave change QTC 489 Labs Labs: Laboratory Results - last 48 hr 04/22/22 04/22/22 04/22/22 06:23 06:23 06:23 Estimat Average Glucose 100 Hemoglobin A1c % 5.1 Magnesium 1.9 Triglycerides 81 Cholesterol 164 LDL Cholesterol, Calc 114 HDL Cholesterol 34 Vitamin B12 516 Folate 7.9 TSH 1.13 Free T4 0.98 Meds/Allergies Meds Home Medications Medication Instructions Recorded Confirmed Type No Known Home Meds 04/22/22 04/22/22 History Allergies Allergies Allergy/AdvReac Type Severity Reaction Status Date / Time pollen extracts Allergy Unknown unknown Verified 04/21/22 14:56 latex Allergy Unknown Rash Uncoded 04/21/22 14:55 Mental Status Exam Mental Status Exam Patient Appearance: Fatigued Patient Orientation: Person and Situation Level of Consciousness: Drowsy and Alert Patient Behavior: Appropriate, Talkative, Cooperative, Fatigued, Distractible, Confused and Poor Eye Contact Mood Description: Depressed Affect Description: Flat Patient Cognition Impaired: Yes Ability to Follow Directions: Fair Speech Pattern: Spontaneous Speech and Soft-Spoken Memory Description: Episodic Impaired Hallucinations: None Delusions: Not Present Thought Process: Distracted, Rumination and Confusion Thought Content: positive for Circumstantial, positive for Slowed Thinking and positive for Suicidal Ideation Depressive Symptoms: Thoughts of /Suicide Judgement: Poor Assessment & Plan Assessment & Plan (1) PTSD (post-traumatic stress disorder): Status: Acute Code(s): F43.10 - Post-traumatic stress disorder, unspecified (2) Bipolar disorder, now depressed: Status: Acute Code(s): F31.30 - Bipolar disorder, current episode depressed, mild or moderate severity, unspecified Plan 82 yo male, hx of bipolar disorder, PTSD-recent loss of home after a legal adair with the community. 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 He stopped meds, went to local medical office looking for refills and talking about jumping from a local bridge. Pt denies SI, denies making suicidal statements. Reported hx of addiction, however, no toxicology was ordered at [facility]. 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 Plan: Admit, observe Sertraline 25 mg daily Collateral contact to confirm pt's current stressors and circumstances. Patient educated on: medication risk/benefits Informed Consent: further education needed Reason for continued inpatient stay Substantial Risk for: harm to self Statement Statement: I have reviewed the history and physical and performed a pertinent examination on my patient. No changes have occurred unless specified. If the History and Physical was not performed prior to admission, the Hospitalist's service will be consulted for completing the admission physical. Time Spent With Patient Time: Total time managing care of this patient today __40__ minutes.
[2022-04-22] MEDS: Ibuprofen 600 MG TABLET PO (15:46)
[2022-04-22 18:00] VITALS: BP 175/102; PULSE 79; RESP 20; TEMP 36.6; O2SAT 95
[2022-04-22] MEDS: traZODone HCL 50 MG TABLET PO (21:33)
[2022-04-22] MEDS: Triamcinolone Acet 0.1 % Cream 15 GM TUBE 1 APPL TOPICAL (21:36)
[2022-04-23 08:35] VITALS: BP 130/71; PULSE 77; RESP 16; TEMP 36.1; O2SAT 93
[2022-04-23] MEDS: Cholecalciferol (Vitamin D3) 10 MCG TABLET 20 MCG PO (08:40)
[2022-04-23] MEDS: Ascorbic Acid 500 MG TABLET PO (08:41)
[2022-04-23] MEDS: Sertraline HCL 25 MG TABLET PO (08:41)
--- NOTE | 2022-04-23 12:23 | P.PNPSI_ITS ---
Subjective Subjective Date of Service: 04/23/22 Reason For Visit: Unspecified Bipolar & Related Disorder Subjective Notes: Section 12B Interim History: Met with pt and GUILHERME Montoya. Pt denies suicidal or homicidal ideation. He reports he was brought here for reporting (can't remember to whom) that he had gone to a bridge with ideas of jumping several years ago. 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 He reports he rents a room at friend's house. 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 Pt appears with significant cognitive impairments starting with difficulty stating the year and month, recollection of recent events leading to this admission is poor. Will complete MOCA. Per nursing, pt loud at times, demanding to leave, poor hygiene. Review of Systems Review of Systems General: No fevers, malaise, unintentional weight loss HEENT: No blurred vision, diplopia. No sore throat, nasal congestion, rhinorrhea, sinus pain, ear pain Cardiovascular: No chest pain, palpitations, or leg edema Respiratory: No shortness of breath, wheezing, cough GI: No abdominal pain, nausea, vomiting, diarrhea, constipation, melena, hematochezia : No dysuria, hematuria, increased urinary frequency, decreased urinary output MSK: No myalgia, back pain Neuro: No headaches, weakness, paresthesias Skin: No rashes or lesions Musculoskeletal: Reports other (L shoulder and L hip pain, back pain, arthritis) Psychiatric: Reports depression, Reports suicidal ideation and Reports other (loss) Mental Status Exam Mental Status Exam Narrative: Appearance: wearing casual clothing, hair unkempt, poor hygiene, disheveled, in NAD Behavior: guarded, superficially cooperative Speech: clear, regular rate, rhythm/volume, spontaneous TP: tangential, some confabulation, difficulty finding words TC: wanting to be discharge Mood: okay Affect: irritable, guarded SI: denies HI: denies VH/AH: none Delusions: none Insight/judgment: poor-impaired x 2. Memory/cog: alert, not oriented to events leading to this admission. suspect significant cognitive impairments, MOCA pending. Diagnostics Vital Signs (24Hr): Vital Signs - 24 hr 04/23/22 08:35 04/23/22 21:00 Temperature 97.0 F 98.0 F Pulse Rate 77 70 Respiratory Rate 16 17 Blood Pressure 130/71 140/77 H Pulse Oximetry 93 96 Oxygen Delivery Method Room Air Room Air BMI result Body Mass Index 31.6 Medications Medications Current Medications Acetaminophen (Acetaminophen 325 Mg Tablet) 650 mg PO Q6H PRN PRN Reason: Headache/Pain Mild Scale (1-3) Last Admin: 04/24/22 08:17 Dose: 650 mg Al Hydroxide/Mg Hydroxide (Magnesium Hydrox/Alum Hydrox 30 Ml Oral.Susp) 30 ml PO Q6H PRN PRN Reason: Heartburn/Nausea Ascorbic Acid (Ascorbic Acid 500 Mg Tablet) 500 mg PO DAILY [facility] Last Admin: 04/24/22 08:06 Dose: 500 mg Haloperidol (Haloperidol 1 Mg Tablet) 2 mg PO Q6H PRN PRN Reason: psychotic agitation Ibuprofen (Ibuprofen 600 Mg Tablet) 600 mg PO Q8H PRN PRN Reason: Pain, Mild (Pain Scale 1-3) Last Admin: 04/22/22 15:46 Dose: 600 mg Lorazepam (Lorazepam 1 Mg Tablet) 1 mg PO Q6H PRN PRN Reason: anxiety, agitation Last Admin: 04/24/22 06:17 Dose: 1 mg Magnesium Hydroxide (Milk Of Magnesia 30 Ml Oral.Susp) 30 ml PO DAILY PRN PRN Reason: Constipation Melatonin (Melatonin 3 Mg Tablet) 6 mg PO BEDTIME PRN PRN Reason: Sleep Multivitamins/Vitamin C (Multivitamin Tablet) 1 tab PO DAILY [facility] Last Admin: 04/24/22 08:05 Dose: 1 tab Sertraline HCl (Sertraline Hcl 25 Mg Tablet) 25 mg PO DAILY [facility] Last Admin: 04/24/22 08:06 Dose: 25 mg Trazodone HCl (Trazodone Hcl 50 Mg Tablet) 50 mg PO BEDTIME PRN PRN Reason: Insomnia Last Admin: 04/23/22 20:40 Dose: 50 mg Triamcinolone Acetonide (Triamcinolone Acet 0.1 % Cream 15 Gm Tube) 1 appl TOPICAL BID [facility]; Protocol Last Admin: 04/24/22 08:09 Dose: Not Given Vitamin D (Cholecalciferol (Vitamin D3) 10 Mcg Tablet) 20 mcg PO DAILY [facility] Last Admin: 04/24/22 08:06 Dose: 20 mcg Allergies Allergies Allergy/AdvReac Type Severity Reaction Status Date / Time pollen extracts Allergy Unknown unknown Verified 04/21/22 14:56 latex Allergy Unknown Rash Uncoded 04/21/22 14:55 Assessment & Plan Assessment & Plan (1) Bipolar disorder, now depressed: Status: Acute Code(s): F31.30 - Bipolar disorder, current episode depressed, mild or moderate severity, unspecified Plan 82 yo male, hx of bipolar disorder, PTSD-recent loss of home after a legal adair with the community. 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 He stopped meds, went to local medical office looking for refills and talking about jumping from a local bridge. Pt denies SI, denies making suicidal statements. Reported hx of addiction, however, no toxicology was ordered at [facility]. 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 Plan: Admit, observe Sertraline 25 mg daily Collateral contact to confirm pt's current stressors and circumstances. 04/23 obtain collateral information, pending MOCA. Reason for contiued inpatient stay Substantial Risk for: inability to function Time Spent With Patient Time: Total time managing care of this patient today ____ minutes.
[2022-04-23] MEDS: traZODone HCL 50 MG TABLET PO (20:40)
[2022-04-23 21:00] VITALS: BP 140/77; PULSE 70; RESP 17; TEMP 36.7; O2SAT 96
[2022-04-24] MEDS: LORazepam 1 MG TABLET PO ×2 (06:17→20:23)
[2022-04-24 08:00] VITALS: BP 119/71; PULSE 63; TEMP 36.6; O2SAT 95
[2022-04-24] MEDS: Multivitamin TABLET 1 TAB PO (08:05)
[2022-04-24] MEDS: Ascorbic Acid 500 MG TABLET PO (08:06)
[2022-04-24] MEDS: Cholecalciferol (Vitamin D3) 10 MCG TABLET 20 MCG PO (08:06)
[2022-04-24] MEDS: Sertraline HCL 25 MG TABLET PO (08:06)
[2022-04-24] MEDS: Acetaminophen 325 MG TABLET 650 MG PO (08:17)
--- NOTE | 2022-04-24 12:28 | HO.PSYCHPN ---
Subjective Subjective Date of Service: 04/24/22 Reason For Visit: Unspecified Bipolar & Related Disorder Subjective Notes: Section 12B Interim History: Met with pt and GUILHERME Astorga. Pt continues to denied suicidal or homicidal ideation. His hygiene is poor. He reports fair sleep, nursing reports he slept through the night. He reports he has dental appointment on . Pt appears with cognitive impairments but declined to complete MOCA. OT was able to only complete ACL- pt scored 3.8 which indicates some degree of supervision managing medications, overseeing safety, potential dangerous situation. SW was able to speak with his friend with whom he is staying and relay this information. Per nursing, no signs of aggression. Medication Compliance: Yes Side effects from medications: No Attending Groups: Intermittent Review of Systems Review of Systems General: No fevers, malaise, unintentional weight loss HEENT: No blurred vision, diplopia. No sore throat, nasal congestion, rhinorrhea, sinus pain, ear pain Cardiovascular: No chest pain, palpitations, or leg edema Respiratory: No shortness of breath, wheezing, cough GI: No abdominal pain, nausea, vomiting, diarrhea, constipation, melena, hematochezia : No dysuria, hematuria, increased urinary frequency, decreased urinary output MSK: No myalgia, back pain Neuro: No headaches, weakness, paresthesias Skin: No rashes or lesions Musculoskeletal: Reports other (L shoulder and L hip pain, back pain, arthritis) Psychiatric: Reports depression, Reports suicidal ideation and Reports other (loss) Mental Status Exam Mental Status Exam Narrative: Appearance: wearing casual clothing, hair unkempt, poor hygiene, disheveled, in NAD Behavior: guarded, superficially cooperative Speech: clear, regular rate, rhythm/volume, spontaneous TP: tangential, some confabulation, difficulty finding words TC: wanting to be discharge Mood: okay Affect: irritable, guarded SI: denies HI: denies VH/AH: none Delusions: none Insight/judgment: poor-impaired x 2. Memory/cog: alert, not oriented to events leading to this admission. suspect significant cognitive impairments, MOCA pending. Diagnostics Vital Signs (24Hr): Vital Signs - 24 hr 04/24/22 18:00 Temperature 98.7 F Pulse Rate 68 Respiratory Rate 16 Blood Pressure 169/71 H Pulse Oximetry 98 Oxygen Delivery Method Room Air BMI result Body Mass Index 31.6 Medications Medications Current Medications Acetaminophen (Acetaminophen 325 Mg Tablet) 650 mg PO Q6H PRN PRN Reason: Headache/Pain Mild Scale (1-3) Last Admin: 04/24/22 08:17 Dose: 650 mg Al Hydroxide/Mg Hydroxide (Magnesium Hydrox/Alum Hydrox 30 Ml Oral.Susp) 30 ml PO Q6H PRN PRN Reason: Heartburn/Nausea Ascorbic Acid (Ascorbic Acid 500 Mg Tablet) 500 mg PO DAILY [facility] Last Admin: 04/24/22 08:06 Dose: 500 mg Haloperidol (Haloperidol 1 Mg Tablet) 2 mg PO Q6H PRN PRN Reason: psychotic agitation Ibuprofen (Ibuprofen 600 Mg Tablet) 600 mg PO Q8H PRN PRN Reason: Pain, Mild (Pain Scale 1-3) Last Admin: 04/22/22 15:46 Dose: 600 mg Lorazepam (Lorazepam 1 Mg Tablet) 1 mg PO Q6H PRN PRN Reason: anxiety, agitation Last Admin: 04/24/22 20:23 Dose: 1 mg Magnesium Hydroxide (Milk Of Magnesia 30 Ml Oral.Susp) 30 ml PO DAILY PRN PRN Reason: Constipation Melatonin (Melatonin 3 Mg Tablet) 6 mg PO BEDTIME PRN PRN Reason: Sleep Multivitamins/Vitamin C (Multivitamin Tablet) 1 tab PO DAILY [facility] Last Admin: 04/24/22 08:05 Dose: 1 tab Sertraline HCl (Sertraline Hcl 25 Mg Tablet) 25 mg PO DAILY [facility] Last Admin: 04/24/22 08:06 Dose: 25 mg Trazodone HCl (Trazodone Hcl 50 Mg Tablet) 50 mg PO BEDTIME PRN PRN Reason: Insomnia Last Admin: 04/23/22 20:40 Dose: 50 mg Triamcinolone Acetonide (Triamcinolone Acet 0.1 % Cream 15 Gm Tube) 1 appl TOPICAL BID [facility]; Protocol Last Admin: 04/24/22 22:16 Dose: Not Given Vitamin D (Cholecalciferol (Vitamin D3) 10 Mcg Tablet) 20 mcg PO DAILY [facility] Last Admin: 04/24/22 08:06 Dose: 20 mcg Allergies Allergies Allergy/AdvReac Type Severity Reaction Status Date / Time pollen extracts Allergy Unknown unknown Verified 04/21/22 14:56 latex Allergy Unknown Rash Uncoded 04/21/22 14:55 Assessment & Plan Assessment & Plan (1) Bipolar disorder, now depressed: Status: Acute Code(s): F31.30 - Bipolar disorder, current episode depressed, mild or moderate severity, unspecified (2) Cognitive impairment: Status: Acute Code(s): R41.89 - Other symptoms and signs involving cognitive functions and awareness Plan 82 yo male, hx of bipolar disorder, PTSD-recent loss of home after a legal adair with the community. 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 He stopped meds, went to local medical office looking for refills and talking about jumping from a local bridge. Pt denies SI, denies making suicidal statements. Reported hx of addiction, however, no toxicology was ordered at [facility]. 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 Plan: Admit, observe Sertraline 25 mg daily Collateral contact to confirm pt's current stressors and circumstances. 04/23 obtain collateral information, pending MOCA. 04/24 pt denies SI/HI. Shows signs of cognitive impairment but degree unclear as he declines to complete MOCA. ACL completed scored 3.8 needs some degree of supervision, questions of visuo spatial skills, attention and orientation and his ability to drive at this time. plan to dc tomorrow. Reason for contiued inpatient stay Substantial Risk for: inability to function Time Spent With Patient Time: Total time managing care of this patient today ____ minutes.
[2022-04-24 18:00] VITALS: BP 169/71; PULSE 68; RESP 16; TEMP 37.1; O2SAT 98
--- NOTE | 2022-04-25 08:49 | P.DS_ITS ---
DS: Providers Provider Date of Service: 04/25/22 Date of admission: 04/21/22 20:16 Primary care physician: Isra Ivan MD Consults: 04/21/22 14:57 Consult to Hospitalist Routine Consulting Provider: Hospitalist Reason For Exam: Transfer from [place] DS: Diagnosis Discharge Diagnosis (1) Bipolar disorder, now depressed: Status: Acute (2) Cognitive impairment: Status: Acute DS: Medications Discharge Medications Home Medications: Previous Rx's Medication Instructions Recorded ascorbic acid (vitamin C) 500 mg 500 mg PO DAILY #30 tabs 04/25/22 tablet (Vitamin C) cholecalciferol (vitamin D3) 10 20 mcg PO DAILY #30 tabs 04/25/22 mcg (400 unit) tablet (Vitamin D3) multivitamin (Daily-Dixon tablet) 1 tab PO DAILY #30 tabs 04/25/22 sertraline 50 mg tablet 50 mg PO DAILY #30 tabs 04/25/22 trazodone 50 mg tablet 50 mg PO BEDTIME PRN Insomnia #30 04/25/22 tabs Mental Status Exam Mental Status Exam Narrative: Appearance: wearing casual clothing, hair unkempt, poor hygiene, disheveled, in NAD Behavior: guarded, superficially cooperative Speech: clear, regular rate, rhythm/volume, spontaneous TP: tangential, some confabulation, difficulty finding words TC: wanting to be discharge Mood: okay Affect: less irritable SI: denies HI: denies VH/AH: none Delusions: none Insight/judgment: poor-impaired x 2. Memory/cog: alert, not oriented to events leading to this admission. suspect significant cognitive impairments, MOCA pending. ACL 3.8. Data Data Completed and Pending Completed studies during hospitalization [Text1]: 04/22/22 04/22/22 04/22/22 06:23 06:23 06:23 Estimat Average Glucose 100 Hemoglobin A1c % 5.1 Magnesium 1.9 Triglycerides 81 Cholesterol 164 LDL Cholesterol, Calc 114 HDL Cholesterol 34 Vitamin B12 516 Folate 7.9 TSH 1.13 Free T4 0.98 DS: Summary Hospital Course Hospital Course: 82 yo male, hx of bipolar depression, resident of [place], sent in transfer from [facility]. Pt to ER when he was found going to a medical office to ask for medicine refills. At that time he reported SI with plan to jump from a local bridge. Identifes a precipitant as trauma from the sale of his home, which he was forced to sell and endured a long legal adair over for the past ~7 months due to allowing homeless people to remain in the home. 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 Pt currently homeless, stays with friends, said to have stayed in a tree house. Off all meds. Met with pt who reports he is admitted for shoulder pain and hip pain. Denies hx of depression, denies SI, denies telling [facility] team he was suicidal. Limited historian. When asked about Sertraline he states we should re-start as it is my antidepressant and I think I need it. Past Psychiatric History: IP: [facility] 12/2019 OP: No connections currently Trials: Sertraline, Hydroxyzine Medical Evaluation Reviewed: Yes HOSPITAL COURSE On the unit, pt was admitted on a sect b after he went to [facility] initially for hip pain and reported suicidal ideation with plan to jump off a bridge. On the unit, pt struggled to remember events leading to this admission. He reported 5 years ago he went to a bridge and contemplated jumping off but realized that it could cause more impairments than actual . He adamantly denies any plan or intent to harm himself. He presented as irritable but not particularly depressed. He reported in the past he had been on sertraline with good effect. Pt initially presented as loud at times, mostly in context of demanding to be discharge as he did not think he needed to be here. He was noted to have difficulties with orientation, recall, executive function. He declined MOCA but agreed to do ACL which showed need for supervision with a score of 3.8. On the unit, pt was visible on the unit. He was social with select peers. There were no need for chemical restraints. His sleep was inconsistent. His appetite was good. No signs of psychosis or delusions. Main concern is cognitive impairment and degree of it. This information was relayed to his friend Bakari who agrees to help him with coordination appointments and bringing him to do driving test. Pt declined any assistance at the home. Time Spent with Patient Time attestation: Total time managing care of this patient today ____ minutes. Discharge Plan Discharge Anticipated Discharge Date/Time: 04/25/22 08:41 Patient Disposition: Home, Self-Care Discharge Diagnosis: Bipolar disorder Cognitive Impairment, r/o major neurocognitive disorder Referrals: Isra Ivan MD [Primary Care Provider] - 1 Week (Patient declined PCP follow up and patient's caregiver stated they will set up appointment. Patient declined all aftercare planning. ) Discharge Medications: New sertraline 50 mg tablet 50 mg PO DAILY Qty: 30 0RF multivitamin [Daily-Dixon] Tablet 1 tab PO DAILY Qty: 30 0RF trazodone 50 mg Tablet 50 mg PO BEDTIME PRN (Reason: Insomnia) Qty: 30 0RF ascorbic acid (vitamin C) [Vitamin C] 500 mg Tablet 500 mg PO DAILY Qty: 30 0RF cholecalciferol (vitamin D3) [Vitamin D3] 10 mcg (400 unit) Tablet 20 mcg PO DAILY Qty: 30 0RF Discharge Orders: Discharge Order (Routine); Ordered 04/25/22 Ordered By: Nemo Rojas Diet: Regular diet Activity on Discharge: As tolerated Stand Alone Forms: Patient Portal Discharge page Care Plan Goals: 1. Maintain mood 2. No SI/HI 3. No aggression towards self or others. Health Concerns: Follow up with PCP Plan of Treatment: 1. Take medications as prescribed. 2. Go to nearest ED or call 911 in event of emergency Assessment: Pt less irritable, bright, non labile affect. No SI/HI. No psychosis or delusions. 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 No signs of aggression towards self or others. Suspected cognitive impairments but extend is unclear given that he declined MOCA. He did have a ALC scored 3.8 which suggests he needs supervision for daily activities but also for coordination and management of medications/appointments.
[2022-04-25 08:55] VITALS: BP 131/80; PULSE 70; RESP 19; TEMP 36.1; O2SAT 94
[2022-04-25] MEDS: Ascorbic Acid 500 MG TABLET PO (08:56)
[2022-04-25] MEDS: Sertraline HCL 25 MG TABLET PO (08:56)
[2022-04-25] MEDS: Multivitamin TABLET 1 TAB PO (08:56)
[2022-04-25] MEDS: Cholecalciferol (Vitamin D3) 10 MCG TABLET 20 MCG PO (08:56)
== END 2022-04-25 13:55 | disposition home or self-care (01) | DRG 885 ==
PROVIDERS: Clinical Nurse Specialist Psychiatric/Mental Health, Adult; Admitting Provider Psychiatry & Neurology Psychiatry; PCP Family Medicine; Visit Provider Psychiatry & Neurology Psychiatry
DX: F31.30 Bipolar disorder, current episode depressed, mild or moderate severity, unspecified (principal); R45.851 Suicidal ideations; G31.84 Mild cognitive impairment of uncertain or unknown etiology; F43.10 Post-traumatic stress disorder, unspecified; E78.5 Hyperlipidemia, unspecified; M19.90 Unspecified osteoarthritis, unspecified site; N40.0 Benign prostatic hyperplasia without lower urinary tract symptoms; Z59.02 Unsheltered homelessness; Z79.899 Other long term (current) drug therapy
CPT/HCPCS: 36415; 80061; 82607; 82746; 83036; 83735; 84439; 84443

== ENCOUNTER 2022-10-12 16:47 | Inpatient (IN) | payer MEDICARE, OTHER, SELFPAY ==
--- OUTSIDE RECORDS SUMMARY | 2022-10-12 16:56 | XMS_ITS | Continuity of Care Document ---
Author Name Unknown Organization [facility] Medicine Address [address] [place] [address]- Care Team Providers Care Channel Lip Wetter Name Role Phone Marzena CHING, Isra Vela Primary Care Physician Encounter [facility] [place] Date(s): 06/08/22 - 07/08/22 [facility] [address] [place] [phone]- Allergies, Adverse Reactions, Alerts Substance Reaction Severity Status Latex ? rash Persistent Mild Active Pollen Active Immunizations Given and Recorded Vaccine Date Status Refusal Reason Influenza Virus Vaccine (oldterm) 02/06/21 Recorde d SARS-CoV-2 (COVID-19) mRNA-1273 vaccine 07/20/20 R ecorded influenza virus vaccine, inactivated 01/16/20 Give n pneumococcal 13-valent vaccine 01/24/16 Given pneumococcal 23-valent vaccine 1 12/08/13 Given tetanus-diphtheria toxoids (Td) 2 12/08/13 Given tetanus-diphtheria toxoids (Td) 07/31/04 Given Not Given Vaccine Date Status Refusal Reason tetanus/diphtheria/pertussis, acel(Tdap) 3 11/26/20 Not Given Patient Refuses 1Result Comment: [12/08/2013] vis given hobbs consent signed. 2Result Comment: [12/08/2013] vis given hobbs consent signed. 3Result Comment: Pt was educated on benefits and indication for need for tetanus vaccine. Pt able toteachback but refuses vaccine Medications cholecalciferol 400 iu oral tablet = 400 International_Units, By Mouth, Daily, 0 Refills, Maintenance, 01/22/20 12:02:00 EDT, Tablet Start Date: 01/22/20 Status: Ordered diclofenac 3% topical gel 1 application, Topically, 2 times a day, # 100 Gm, 0 Refills, Maintenance, 03/29/22 15:38:00 EST, Gel, [facility] #[id number], Partial fill upon patient request if the prescription is for a schedule II opioid drug., 1 application Topically 2 times a day, 168... Start Date: 03/29/22 Status: Ordered Fish Oil By Mouth, 0 Refills, Maintenance, 06/23/18 10:34:52 EDT Start Date: 06/23/18 Status: Ordered ibuprofen 600 mg oral tablet 600 mg, 1, tablet, By Mouth, Every 6 hours, PRN, not to exceed 3200 mg/day with food or milk, # 20 tablet, Refills 0, Tot. Refills 0, Maintenance, for pain, 02/06/21 16:29:00 EST, Route to Pharmacy Electronically, [facility] - [address], Partial fill... Start Date: 02/06/21 Stop Date: 02/11/21 Status: Ordered melatonin 5 mg oral tablet By Mouth, Daily at bedtime, 0 Refills, Maintenance, 01/22/20 12:02:00 EDT, Tablet Start Date: 01/22/20 Status: Ordered PT evaluate and treat for left shoulder pain PT evaluate and treat for left shoulder pain, See Instructions, # 1 each, Refills 0, Tot. Refills 0, Maintenance, ICD-10 R53.1 weakness, 04/10/21 14:35:00 EST, Supply Start Date: 04/10/21 Status: Ordered sertraline 100 mg oral tablet 1.5 tablet = 150 mg, By Mouth, Daily, # 135 tablet, 1 Refills, Maintenance, 05/18/22 11:43:00 EST, [facility] #[id number], 170, cm, 04/21/22 16:03:00 EST, Height, 68, kg, 04/21/22 16:03:00 EST, Dry Weight Start Date: 05/18/22 Status: Ordered Vitamin A & D 1 applicator, Topically, 4 times a day, 0 Refills, Maintenance, 06/23/18 10:34:09 EDT Start Date: 06/23/18 Status: Ordered Vitamin B Complex oral tablet, extended release 1 tablet, By Mouth, Daily, 0 Refills, Maintenance, 06/23/18 10:34:35 EDT Start Date: 06/23/18 Status: Ordered Vitamin C By Mouth, Daily, 0 Refills, Maintenance, 06/23/18 10:34:44 EDT Start Date: 06/23/18 Status: Ordered Problem List Condition Confirmation Course Effective Dates Status H ealth Status Informant Actinic keratosis Confirmed Active Anemia Confirmed Active Atypical melanocytic hyperplasia Confirmed Active BPH (benign prostatic hypertrophy) Confirmed Active Chronic low back pain Confirmed Active Diverticulosis of colon Confirmed Active Eczema Confirmed Active Housing situation unstable Confirmed Active Hyperlipidemia Confirmed 09/29/10 Active Osteoarthritis Confirmed Active Hypogonadism, male Confirmed Active Depression Confirmed Active Left rotator cuff tear Confirmed Active Left shoulder pain Confirmed Active Spinal stenosis of lumbar region at multiple levels Confirmed Active Tubular adenoma of colon Confirmed 09/20/16 Active Social History Social History Type Response Smoking Status Never smoker entered on: 09/18/16 Sex Implantable Device List Procedure Provider Procedure Date Device Type Site Repair Hernia Inguinal Open Aldo Howell MD 12/13/17 Unknown Groin Right Device Identifier Serial Number Lot or Batch Number Manufacturing Date Expiration Date Distinct Identification Code MRI Safety Implantable Status Assigning Authority Unknown Unknown [id number] Unknown 07/27/22 Unknown Unknown Active Unknown Patient Care team information Care Team Personnel Name: Marzena CHING, Isra Vela Position: [facility] Primary Care Physician Member Role: PCP Address: Address: [address] [place] [phone]- Name: Thu Coates Position: [facility] Outreach Member Role: Lifetime Consulting Physician Care Team Related Persons Name: RD GARCIA Address: [address] [address] Name: MOISES WHALEN Address: [place] [address]
--- OUTSIDE RECORDS SUMMARY | 2022-10-12 16:56 | XMS_ITS | Continuity of Care Document ---
Author Name Unknown Organization [facility] Address [address] [place] [address]- Care Team Providers Care Game Technician Name Role Phone Isra Ivan MD Primary Care Physician Encounter [facility] [place] Date(s): 05/16/22 - 07/01/22 [facility] [address] [place] [phone]- Attending Physician: Isra Ivan MD Admitting Physician: [...] Maintenance, 03/29/22 15:38:00 EST, Gel, [facility] #[id number], Partial fill upon patient request if the [...] Refills, Maintenance, 05/18/22 11:43:00 EST, [facility] #[id number], 170, cm, 04/21/22 16:03:00 EST, Height, 68, [...] Device Type Site Repair Hernia Inguinal Open Lynda CHING, Aldo 12/13/17 Unknown Groin Right Device Identifier Serial Number Lot or Batch Number Manufacturing Date Expiration Date Distinct Identification Code MRI Safety Implantable Status Assigning Authority Unknown Unknown [id number] Unknown 07/27/22 Unknown Unknown Active Unknown Patient Care team information Care Team Personnel Name: Marzena CHING, Isra Vela Position: [facility] Primary Care Physician Member Role: PCP Address: Address: [address] [place] [phone]- Name: Thu Coates Position: [facility] Outreach Member Role: Lifetime Consulting Physician Care Team Related Persons Name: RD GARCIA Address: [address] [place] [address] [address] Name: MOISES WHALEN Address: [place] [address]
--- OUTSIDE RECORDS SUMMARY | 2022-10-12 16:56 | XMS_ITS | Continuity of Care Document ---
Author Name Unknown Organization [facility] Address [address] [place] [address]- Care Team Providers Care Bedspread Cutter Hand Name Role Phone Marzena CHING, Isra Vela Primary Care Physician [phone] [place] [facility] [place](s): 06/29/22 - 07/29/22 [facility] [address] [place] [phone]- Allergies, Adverse Reactions, Alerts Substance Reaction Severity [...] Maintenance, 03/29/22 15:38:00 EST, Gel, [facility] #[id number], Partial fill upon patient request if the [...] Refills, Maintenance, 05/18/22 11:43:00 EST, [facility] #[id number], 170, cm, 04/21/22 16:03:00 EST, Height, 68, [...] Safety Implantable Status Assigning Authority Unknown Unknown [id number] Unknown 07/27/22 Unknown Unknown Active Unknown Patient Care team information Care Team Personnel Name: Marzena CHING, Isra Vela Position: [facility] Primary Care Physician Member Role: PCP Address: Address: [address] [place] [phone]- Name: Thu Coates Position: [facility] Outreach Member Role: Lifetime Consulting Physician Care Team Related Persons Name: RD GARCIA Address: [address] [address] Name: MOISES WHALEN Address: [place] [address]
--- OUTSIDE RECORDS SUMMARY | 2022-10-12 16:56 | XMS_ITS | Continuity of Care Document ---
Author Name Unknown Organization [facility] Address [address] [place] [address]- Care Team Providers Care De Icer Element Winder Name Role Phone Marzena CHING, Isra Vela Primary Care Physician [place] [facility] [place] Date(s): 03/22/22 - 04/21/22 [facility] [address] [place] [phone]- Allergies, Adverse Reactions, Alerts Substance Reaction Severity [...] Maintenance, 03/29/22 15:38:00 EST, Gel, [facility] #[id number], Partial fill upon patient request if the prescription is for a schedule II opioid drug., 1 application Topically 2 times a day, 168... Start Date: 03/29/22 Status: Ordered Fish Oil By Mouth, 0 Refills, Maintenance, 06/23/18 10:34:52 EDT Start Date: 06/23/18 Status: Ordered Golytely - oral powder for reconstitution 240 mL, By Mouth, Every 15 minutes, Start at 5pm the night before the procedure drink half Drink the other half 6 hours before procedure, # 1 each, 0 Refills, Maintenance, 10/11/21 18:01:00 EDT, REC Powder, [facility] - [address], Partial fill upon... Start Date: 10/11/21 Status: Ordered Golytely - oral powder for reconstitution 240 mL, By Mouth, Every 15 minutes, Follow colonoscopy prep instructions; Drink half at 5 pm night before procedure; drink half 6 hrs before colonoscopy time., # 4,000 mL, 0 Refills, Maintenance, 06/20/21 18:05:00 EDT, [facility] - [address], Partial... Start Date: 06/20/21 Status: Ordered ibuprofen 600 mg oral tablet [...] EST, Dry Weight Start Date: 08/18/21 Status: Ordered Triamcinolone = 5 mg, Topically, 3 times a day, Maintenance, 01/15/20 17:35:00 EDT Start Date: 01/15/20 Status: Ordered Vitamin A & D 1 [...] Active Chronic low back pain Confirmed Active Eczema [...] Safety Implantable Status Assigning Authority Unknown Unknown [id number] Unknown 07/27/22 Unknown Unknown Active Unknown Patient Care team information Care Team Personnel Name: Isra Ivan MD Position: [facility] Primary Care Physician Member Role: PCP Address: Address: [address] [place] [address] Name: Thu Coates Position: [facility] Outreach Member Role: Lifetime Consulting Physician Care Team Related Persons Name: RD GARCIA Address: home [address] [place] [id number] Name: MOISES WHALEN Address: [place] [address]
--- OUTSIDE RECORDS SUMMARY | 2022-10-12 16:56 | XMS_ITS | Continuity of Care Document ---
Author Name Unknown Organization [facility] Address [address] [place] [address]- Care Team Providers Care Cardiothoracic Surgeon Name Role Phone Marzena CHING, Isra Vela Primary Care Physician [place] [facility] [place]22 [facility] [address] [place] [phone]- Allergies, Adverse Reactions, Alerts Substance Reaction Severity [...] Maintenance, 03/29/22 15:38:00 EST, Gel, [facility] #[id number], Partial fill upon patient request if the [...] Refills, Maintenance, 05/18/22 11:43:00 EST, [facility] #[id number], 170, cm, 04/21/22 16:03:00 EST, Height, 68, [...] Safety Implantable Status Assigning Authority Unknown Unknown [id number] Unknown 07/27/22 Unknown Unknown Active Unknown Patient Care team information Care Team Personnel Name: Marzena CHING, Isra Vela Position: [facility] Physician - Primary Care Member Role: PCP Address: Address: [address] [place] [phone]- Name: Thu Coates Position: [facility] Outreach Member Role: Lifetime Consulting Physician Care Team Related Persons Name: RD GARCIA Address: [address] [address] Name: MOISES WHALEN Address: [place] [address]
--- OUTSIDE RECORDS SUMMARY | 2022-10-12 16:56 | XMS_ITS | Continuity of Care Document ---
Author Name Unknown Organization [facility] Address [address] [place] [address]- Care Team Providers Care Spiral Winder Name Role Phone Marzena CHING, Isra Vela Primary Care Physician [phone] Encounter [facility] [place] Date(s): 06/05/22 - 07/05/22 [facility] [address] [place] [phone]- Allergies, Adverse Reactions, Alerts Substance Reaction Severity [...] Maintenance, 03/29/22 15:38:00 EST, Gel, [facility] #[id number], Partial fill upon patient request if the [...] Refills, Maintenance, 05/18/22 11:43:00 EST, [facility] #[id number], 170, cm, 04/21/22 16:03:00 EST, Height, 68, [...] Safety Implantable Status Assigning Authority Unknown Unknown [id number] Unknown 07/27/22 Unknown Unknown Active Unknown Patient Care team information Care Team Personnel Name: Marzena CHING, Isra Vela Position: [facility] Primary Care Physician Member Role: PCP Address: Address: [address] [place] [address]- Name: Thu Coates Position: [facility] Outreach Member Role: Lifetime Consulting Physician Care Team Related Persons Name: RD GARCIA Address: [address] [address] Name: MOISES WHALEN Address: [place] [address]
--- OUTSIDE RECORDS SUMMARY | 2022-10-12 16:57 | XMS_ITS | Continuity of Care Document ---
Author Name Unknown Organization [facility] Address [address] [place] [address]- Care Team Providers Care Box Chipper Name Role Phone Marzena CHING, Isra Vela Primary Care Physician [place] [facility] [place](s): 05/18/22 - 06/17/22 [facility] [address] [place] [phone]- Allergies, Adverse Reactions, Alerts Substance Reaction Severity [...] Maintenance, 03/29/22 15:38:00 EST, Gel, [facility] #[id number], Partial fill upon patient request if the [...] Refills, Maintenance, 05/18/22 11:43:00 EST, [facility] #[id number], 170, cm, 04/21/22 16:03:00 EST, Height, 68, kg, 04/21/22 16:03:00 EST, Dry Weight Start Date: 05/18/22 Status: Ordered Triamcinolone = 5 mg, Topically, [...] Safety Implantable Status Assigning Authority Unknown Unknown [id number] Unknown 07/27/22 Unknown Unknown Active Unknown Patient Care team information Care Team Personnel Name: Isra Ivan MD Position: S Primary Care Physician Member Role: PCP Address: Address: [address] [place] [phone]- [place] Name: Thu Coates Position: [facility] Outreach Member Role: Lifetime Consulting Physician Care Team Related Persons Name: RD GARCIA Address: home [address] [place] [phone] Name: MOISES WHALEN Address: [place] [address]
--- OUTSIDE RECORDS SUMMARY | 2022-10-12 16:57 | XMS_ITS | Continuity of Care Document ---
Author Name Unknown Organization [facility] Address [address] [place] [address]- Care Team Providers Care Habilitation Worker Name Role Phone Isra Ivan MD Primary Care Physician Encounter [facility] Date(s): 08/10/22 - 08/10/[address] [address]- Discharge Disposition: A-D/C Home Attending Physician: Jan Eddy DO Admitting Physician: Jan Eddy DO Referring Physician: Not on Staff, Referring [...] Maintenance, 03/29/22 15:38:00 EST, Gel, [id number], Partial fill upon patient request if the [...] Refills, Maintenance, 05/18/22 11:43:00 EST, [facility] #[id number], 170, cm, 04/21/22 16:03:00 EST, Height, 68, [...] Tubular adenoma of colon Confirmed 09/20/16 Active Results Radiology Reports * Exam Date Time Procedure Performing Provider Status 08/10/22 4:[address] Pelvis W/O Contrast Sindy , Francesca; Auth (Verified) Notes: (CT Pelvis W/O Contrast) Reason For Exam: Trauma RESULT: CT Pelvis W/O Contrast CT Pelvis W/O Contrast Hx of Present Illness: SI with plan jump off bridge; Reason: Trauma; Clinical Question(s): Other:; fall, eval for L hip pelvis fx TECHNIQUE: Spiral CT without IV contrast through the pelvis only formatted in 3 planes. Enteric contrast was not administered. Automatic tube modulation and/or iterative dose reconstruction were usedto optimize exposure parameters. CTDIvol Body: 17.40 mGy, DLP Body: 572 mGy*cm. COMPARISON: Radiographs 04/20/2022. FINDINGS: Bilateral hip resurfacing arthroplasty hardware in expected alignment and resulting in streak artifact partially obscuring surrounding anatomy. No evidence of displaced pelvic fracture. Degenerative hypertrophic changes of the pubic symphysis, and sacroiliac joints. Laminectomy lower lumbar spine. 1.1 cm anterolisthesis at the lumbosacral junction. Inferior pelvis including the prostate gland is obscured by streak artifact. Mild amount retained stool within the colon and rectum. Diverticulosis of the sigmoid colon. Aortoiliac atherosclerotic calcifications are present. Small fat filled left inguinal ring, and fat-containing umbilical hernia. IMPRESSION: No evidence of displaced pelvic fracture Bilateral hip arthroplasty hardware 1.1 cm anterolisthesis at the lumbosacral junction and partially imaged laminectomy changes within the lower lumbar spine. I have personally reviewed the images and I agree with this report. WSN: [id number] Ordering Physician: Giovanni Patrick Dictated By: Ed Rea MD Dictated Date/Time: 08/10/22 4:58 pm Reviewed By: Byron Hollins Jr, MD Signed By: Byron Hollins Jr, MD Signed Date/Time: 08/10/22 5:03 pm Transcribed By: MEY Transcribed Date/Time: 08/10/22 4:16 pm * Exam Date Time Procedure Performing Provider Status 08/10/22 3:[address] Head/Brain W/O Contrast Short , Sylvia ah; Auth (Verified) Notes: (CT Head/Brain W/O Contrast) Reason For Exam: Trauma RESULT: CT Head/Brain W/O Contrast CT Head/Brain W/O Contrast INDICATION: Hx of Present Illness: SI with plan jump off bridge; Reason: Trauma; Clinical Question(s): Hematoma TECHNIQUE: Noncontrast head CT using axial technique and reconstructed in axial and coronal planes.Iterative reconstruction techniques are used to optimize dose and image quality. CTDIvol Head: 45.70 mGy, DLP Head: 773 mGy*cm. COMPARISON: 11/26/2020 FINDINGS: Building Contractor view findings, lines and tubes: None. BRAIN AND EXTRA-AXIAL SPACES: No parenchymal hemorrhage, midline shift, or mass effect. Noland-white matter differentiation is wellpreserved. No acute infarct. Moderate prominence of the ventricles and sulci consistent with parenchymal volume loss. Mild low-density white matter changes. No subarachnoid hemorrhage. No subdural or epidural collection. CALVARIUM, SKULL BASE, AND SOFT TISSUES: No fractures or suspicious bony lesions. The paranasal sinuses and mastoid air cells are clear. Visualized orbits and globes are intact. The extracranial soft tissues are unremarkable. IMPRESSION: No acute intracranial pathology. WSN: [id number] Ordering Physician: Giovanni Patrick Dictated By: Will Jay MD Dictated Date/Time: 08/10/22 4:20 pm Reviewed By: Will Jay MD Signed By: Will Jay MD Signed Date/Time: 08/10/22 4:20 pm Transcribed By: MEY Transcribed Date/Time: 08/10/22 3:54 pm Vital Signs Most recent to oldest [Reference Range]: 1 2 Height 168 cm (08/10/22 12:41 PM) 168 cm (08/10/22 12:38 PM) Weight 67 kg (08/10/22 12:41 PM) 67 kg (08/10/22 12:38 PM) Oxygen Saturation [94-100 %] 95 % (08/10/22 4:00 PM) 95 % (08/10/22 12:38 PM) Pulse Rate [55-90 bpm] 80 bpm (08/10/22 4:00 PM) 73 bpm (08/10/22 12:38 PM) Body Mass Index [18.5-24.99 kg/m2] 23.74 kg/m2 (08/10/22 12:38 PM) Blood Pressure [90-138/55-84 mm Hg] 117/ 78mm Hg (08/10/22 4:00 PM) 123/91mm Hg (08/10/22 12:38 PM) Respiratory Rate [16-30 br/min] 18 br/mi n (08/10/22 4:00 PM) 16 br/min (08/10/22 12:38 PM) Temperature [96.8-100.4 DegF] 98.0 DegF (08/10/22 12:38 PM) Mode of Delivery (Oxygen) Room air (08/10/22 12:38 PM) Temperature Route Temporal (08/10/22 12:38 PM) Dry Weight 67 kg (08/10/22 12:41 PM) 67 kg (08/10/22 12:38 PM) Social History Social History Type Response Smoking Status Never smoker entered on: 09/18/16 Sex Implantable Device List Procedure Provider Procedure Date Device Type Site Repair Hernia Inguinal Open Aldo Howell MD 12/13/17 Unknown Groin Right Device Identifier Serial Number Lot or Batch Number Manufacturing Date Expiration Date Distinct Identification Code MRI Safety Implantable Status Assigning Authority Unknown Unknown [id number] Unknown 07/27/[address] Unknown Active Unknown [address] Head WO contrast * [employer] , CIS S: TRANSCRIBE Misty CHING, Will Brink: VERIFY Event Display: Result: Authored Date: [id number] CT Head/Brain W/O Contrast INDICATION: Hx of Present Illness: SI with plan jump off bridge; Reason: Trauma; Clinical Question(s): Hematoma TECHNIQUE: Noncontrast head CT using axial technique and reconstructed in axial and coronal planes.Iterative reconstruction techniques are used to optimize dose and image quality. CTDIvol Head: 45.70 mGy, DLP Head: 773 mGy*cm. COMPARISON: 11/26/2020 FINDINGS: Building Contractor view findings, lines and tubes: None. BRAIN AND EXTRA-AXIAL SPACES: No parenchymal hemorrhage, midline shift, or mass effect. Noland-white matter differentiation is wellpreserved. No acute infarct. Moderate prominence of the ventricles and sulci consistent with parenchymal volume loss. Mild low-density white matter changes. No subarachnoid hemorrhage. No subdural or epidural collection. CALVARIUM, SKULL BASE, AND SOFT TISSUES: No fractures or suspicious bony lesions. The paranasal sinuses and mastoid air cells are clear. Visualized orbits and globes are intact. The extracranial soft tissues are unremarkable. IMPRESSION: No acute intracranial pathology. WSN: [id number] Ordering Physician: Giovanni Patrick Dictated By: Will Jay MD Dictated Date/Time: 08/10/22 4:20 pm Reviewed By: Will Jay MD Signed By: Will Jay MD Signed Date/Time: 08/10/22 4:20 pm Transcribed By: MEY Transcribed Date/Time: 08/10/22 3:[address] Pelvis WO contrast * [employer] , CIS S: TRANSCRIBE Álvaro CHING, Ed L: SIGN Gunjan Little MD, Byron P: VERIFY Event Display: Result: Authored Date: [id number] CT Pelvis W/O Contrast Hx of Present Illness: SI with plan jump off bridge; Reason: Trauma; Clinical Question(s): Other:; fall, eval for L hip pelvis fx TECHNIQUE: Spiral CT without IV contrast through the pelvis only formatted in 3 planes. Enteric contrast was not administered. Automatic tube modulation and/or iterative dose reconstruction were usedto optimize exposure parameters. CTDIvol Body: 17.40 mGy, DLP Body: 572 mGy*cm. COMPARISON: Radiographs 04/20/2022. FINDINGS: Bilateral hip resurfacing arthroplasty hardware in expected alignment and resulting in streak artifact partially obscuring surrounding anatomy. No evidence of displaced pelvic fracture. Degenerative hypertrophic changes of the pubic symphysis, and sacroiliac joints. Laminectomy lower lumbar spine. 1.1 cm anterolisthesis at the lumbosacral junction. Inferior pelvis including the prostate gland is obscured by streak artifact. Mild amount retained stool within the colon and rectum. Diverticulosis of the sigmoid colon. Aortoiliac atherosclerotic calcifications are present. Small fat filled left inguinal ring, and fat-containing umbilical hernia. IMPRESSION: No evidence of displaced pelvic fracture Bilateral hip arthroplasty hardware 1.1 cm anterolisthesis at the lumbosacral junction and partially imaged laminectomy changes within the lower lumbar spine. I have personally reviewed the images and I agree with this report. WSN: [id number] Ordering Physician: Giovanni Patrick Dictated By: Ed Rea MD Dictated Date/Time: 08/10/22 4:58 pm Reviewed By: Byron Hollins Jr, MD Signed By: Byron Hollins Jr, MD Signed Date/Time: 08/10/22 5:03 pm Transcribed By: MEY Transcribed Date/Time: 08/10/22 4:16 pm Patient Care team information Care Team Personnel Name: Marzena CHING, Isra Vela Position: [facility] Primary Care Physician Member Role: PCP Address: Address: [address] [place] [phone]- Name: Thu Coates Position: [facility] Outreach Member Role: Lifetime Consulting Physician Name: Cloton Durham RN Position: [facility] ED RN W/OE and Tasks Member Role: Patient Care Provider Name: Jan Eddy DO Position: [facility] Resident Member Role: Admitting Physician Address: Address: [address] [place] [address] Dept [place] [address]- Care Team Related Persons Name: RD GARCIA Address: [address] [address] Name: MOISES WHALEN Address: [place] [address]
--- OUTSIDE RECORDS SUMMARY | 2022-10-12 16:57 | XMS_ITS | Continuity of Care Document ---
Author Name Unknown Organization [facility] Address [address] [place] [address]- Care Team Providers Care Phys Ther Name Role Phone Isra Ivan MD Primary Care Physician Encounter [facility] Date(s): 09/03/22 - 09/04/[address] [address]- Encounter Diagnosis Encounter for medical screening examination(Final) - 09/04/22 Discharge Disposition: A-D/C Home Attending Physician: Anton Marie DO Admitting Physician: Anton Marie DO Referring Physician: Not on Staff, Referring [...] Maintenance, 03/29/22 15:38:00 EST, Gel, [facility][id number], Partial fill upon patient request if the [...] Refills, Maintenance, 05/18/22 11:43:00 EST, [facility] #[id number], 170, cm, 04/21/22 16:03:00 EST, Height, 68, [...] Tubular adenoma of colon Confirmed 09/20/16 Active Vital Signs Most recent to oldest [Reference Range]: 1 Height 168 cm (09/03/22 11:08 PM) Weight 70.5 kg (09/03/22 11:08 PM) Pulse Rate [55-90 bpm] 74 bpm (09/03/22 11:08 PM) Body Mass Index [18.5-24.99 kg/m2] 24.98 kg/m2 (09/03/22 11:08 PM) Blood Pressure [90-138/55-84 mm Hg] 157/ 100mm Hg *H* (09/03/22 11:08 PM) Respiratory Rate [16-30 br/min] 16 br/mi n (09/03/22 11:08 PM) Temperature [96.8-100.4 DegF] 98.6 DegF (09/03/22 11:08 PM) Temperature Route Oral (09/03/22 11:08 PM) Dry Weight 70.5 kg (09/03/22 11:08 PM) Social History Social History Type Response Smoking Status Never smoker entered on: 09/18/16 Sex Implantable Device List Procedure Provider Procedure Date Device Type Site Repair Hernia Inguinal Open Aldo Howell MD 12/13/17 Unknown Groin Right Device Identifier Serial Number Lot or Batch Number Manufacturing Date Expiration Date Distinct Identification Code MRI Safety Implantable Status Assigning Authority Unknown Unknown [id number] Unknown 07/27/22 Unknown Unknown Active Unknown Note * Marie DO, Anton D: PERFORM, SIGN, VERIFY Event Display: Patient Education Handout Authored Date: [id number] Patient Care team information Care Team Personnel Name: Isra Ivan MD Position: [facility] Physician - Primary Care Member Role: PCP Address: Address: [address] [place] [address]- [place] Name: Thu Coates Position: [facility] Outreach Member Role: Lifetime Consulting Physician Name: Kayleen Holt RN Position: [facility] ED RN W/OE and Tasks Member Role: Patient Care Provider Name: Anton Marie DO Position: [facility] ED Medicine MD Member Role: ED Attending Physician Address: Address: [address] [place] [address]- [place] Care Team Related Persons Name: RD GARCIA Address: home [address] [place] [address] Name: MOISES WHALEN Address: [place] [address]
--- OUTSIDE RECORDS SUMMARY | 2022-10-12 16:57 | XMS_ITS | Continuity of Care Document ---
Author Name Unknown Organization [facility] Address [address] [place] [address]- Care Team Providers Care Delicatessen Department Manager Name Role Phone Marzena CHING, Isra Vela Primary Care Physician Encounter [facility] Date(s): 07/19/22 - 08/18/22 [facility] [address] [place] [address]- Allergies, Adverse Reactions, Alerts Substance Reaction Severity [...] Maintenance, 03/29/22 15:38:00 EST, Gel, [facility] #[id number], Partial fill upon patient request if the [...] Refills, Maintenance, 05/18/22 11:43:00 EST, [facility] #[id number], 170, cm, 04/21/22 16:03:00 EST, Height, 68, [...] Safety Implantable Status Assigning Authority Unknown Unknown [id number] Unknown 07/27/22 Unknown Unknown Active Unknown Patient Care team information Care Team Personnel Name: Marzena CHING, Isra Vela Position: [facility] Primary Care Physician Member Role: PCP Address: Address: [address] [place] [address]- Name: Thu Coates Position: [facility] Outreach Member Role: Lifetime Consulting Physician Care Team Related Persons Name: RD GARCIA Address: [address] [address] Name: MOISES WHALEN Address: [place] [address]
--- OUTSIDE RECORDS SUMMARY | 2022-10-12 16:57 | XMS_ITS | Continuity of Care Document ---
Author Name Unknown Organization [facility] Address [address] [place] [address]- Care Team Providers Care Double End Sewer Name Role Phone Isra Ivan MD Primary Care Physician [phone] Encounter [facility] Date(s): 04/20/22 - 04/21/[address] [address]- Encounter Diagnosis Suicidal ideation(Final) - 04/20/22 Discharge Disposition: Transfer to [facility] Facility Attending Physician: Woo Faustin MD Admitting Physician: Woo Faustin MD Referring Physician: Not on Staff, Referring [...] Maintenance, 03/29/22 15:38:00 EST, Gel, [facility] #[id number], Partial fill upon patient request if the [...] Exam Date Time Procedure Performing Provider Status 04/20/22 4:09 PM XR Hip w/Pelvis 2-3 View Left Belen Kan; Auth (Verified) Notes: (XR Hip w/Pelvis 2-3 View Left) Reason For Exam: Pain RESULT: XR Hip w/Pelvis 2-3 View Left XR Hip w/Pelvis 2-3 View Left HX OF PRESENT ILLNESS: ? arthritic px SI with plan. Pt states he drove to a bridge and thought about jumping off. 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 Status post bilateral hip arthroplasties. Surrounding heterotopic ossification, not significantly changed. Degenerative changes of the visualized lumbar spine. There are atherosclerotic vascular calcifications. IMPRESSION: No evidence of acute osseous abnormality. WSN: [id number] Ordering Physician: Jan Eddy Dictated By: Will Gastelum MD Dictated Date/Time: 04/20/22 4:17 pm Reviewed By: Will Gastelum MD Signed By: Will Gastelum MD Signed Date/Time: 04/20/22 4:17 pm Transcribed By: MEY Transcribed Date/Time: 04/20/22 4:16 pm * Exam Date Time Procedure Performing Provider Status 04/20/22 4:09 PM Shoulder Min 2 Views Left Gera Kan; Auth (Verified) Notes: (Shoulder Min 2 Views Left) Reason For Exam: Pain RESULT: Shoulder Min 2 Views Left Shoulder Min 2 Views Left, 2 views HX OF PRESENT ILLNESS: ? arthritic px SI with plan. Pt states he drove to a bridge and thought about jumping off. Pt also has chronic px in left hip and R shoulder.; Reason: Pain; Clinical Question(s): Fracture COMPARISON: 05/24/2020 FINDINGS: No fracture or dislocation. Mild glenohumeral joint space narrowing and marginal spurring. Mild degenerative changes of the AC joint. The portion of the clavicle included on the exam is normal. No calcification of the rotator cuff. IMPRESSION: Degenerative changes of the left shoulder with no evidence of acute osseous abnormality WSN: [id number] Ordering Physician: Jan Eddy Dictated By: Will Gastelum MD Dictated Date/Time: 04/20/22 4:16 pm Reviewed By: Will Gastelum MD Signed By: Will Gastelum MD Signed Date/Time: 04/20/22 4:16 pm Transcribed By: MEY Transcribed Date/Time: 04/20/22 4:15 pm Vital Signs Most recent to oldest [Reference Range]: 1 2 3 Height 170 cm (04/21/22 4:03 PM) 170 cm (04/21/22 7:24 AM) 170 cm (04/21/22 1:29 AM) Weight 68 kg (04/21/22 4:03 PM) 68 kg (04/21/22 7:24 AM) 68 kg (04/21/22 1:29 AM) Oxygen Saturation [94-100 %] 95 % (04/21/22 4:03 PM) 96 % (04/21/22 7:24 AM) 97 % (04/21/22 1:29 AM) Pulse Rate [55-90 bpm] 77 bpm (04/21/22 4:03 PM) 79 bpm (04/21/22 7:24 AM) 74 bpm (04/21/22 1:29 AM) Body Mass Index [18.5-24.99 kg/m2] 23.53 kg/m2 (04/21/22 4:03 PM) 23.53 kg/m2 (04/21/22 7:24 AM) 23.53 kg/m2 (04/21/22 1:29 AM) Blood Pressure [90-138/55-84 mm Hg] 137/80mm Hg (04/21/22 4:03 PM) 152/91mm Hg *H* (04/21/22 7:24 AM) 135/84mm Hg (04/21/22 1:29 AM) Respiratory Rate [16-30 br/min] 16 br/min (04/21/22 4:03 PM) 18 br/min (04/21/22 7:24 AM) 17 br/min (04/21/22 5:30 AM) Temperature [96.8-100.4 DegF] 98.8 DegF (04/21/22 4:03 PM) 97.5 DegF (04/21/22 7:24 AM) 97.3 DegF (04/21/22 1:29 AM) Mode of Delivery (Oxygen) Room air (04/21/22 4:03 PM) Room air (04/21/22 7:24 AM) Room air (04/21/22 1:29 AM) Blood pressure sites Arm, left (04/21/22 4:03 PM) Arm, right (04/21/22 7:24 AM) Arm, left (04/21/22 1:29 AM) Temperature Route Temporal (04/21/22 4:03 PM) Temporal (04/21/22 7:24 AM) Temporal (04/21/22 1:29 AM) Dry Weight 68 kg (04/21/22 4:03 PM) 68 kg (04/21/22 7:24 AM) 68 kg (04/21/22 1:29 AM) Social History Social History Type Response Smoking Status Never smoker entered on: 09/18/16 Sex Implantable Device List Procedure Provider Procedure Date Device Type Site Repair Hernia Inguinal Open Aldo Howell MD 12/13/17 Unknown Groin Right Device Identifier Serial Number Lot or Batch Number Manufacturing Date Expiration Date Distinct Identification Code MRI Safety Implantable Status Assigning Authority Unknown Unknown [id number] Unknown 07/27/22 Unknown Unknown Active Unknown Hospital Progress note * Jeff Vasques RN: PERFORM, SIGN, VERIFY Event Display: Progress Note Hospital Authored Date: [id number] Patient: FRANSISCO STONER Age: 82 years Sex: Male : 1940 Associated Diagnoses: None Author: Jeff Vasques RN Findings Narrative/Incidental [facility] arrived to take patient to [facility] for a tyler-psych bed placement. Patient's friend Bakari Rausch arrived at the same time stating that he is the patient's grandson and residential care officer and was going to take the patient home. Both were informed that the patient is under a section 12 per [employer]. Both the patient and visitor became agitated demanding that the police be called and that the patient was wrongfully placed under a section 12. Multiple attempts were made to verbally de-escalatethe patient, the visitor was asked to leave but continued to yell at staff members. Two [place] Police officers arrived, after being called by another RN, who stated they were very familiar with the patient and the visitor and confirmed that the two live together but that there is no familial connection. The patient's truck keys were given to the visitor to drive home per the patient's requestand the [place] PD and security as witness, the visitor then left. Pt continued to state he wasn't going to [place]. Pt was given several verbal warnings and opportunities to voluntarily get on the [facility] stretcher for transport. Pt's agitation increased and IM medication was administered. Care wastransfered to [facility] EMT.. XR Shoulder - left GE 2 Views * [employer] , CIS S: TRANSCRIBE Will Gastelum MD: VERIFY Event Display: Result: Authored Date: Shoulder Min 2 Views Left, 2 views HX OF PRESENT ILLNESS: ? arthritic px SI with plan. Pt states he drove to a bridge and thought about jumping off. Pt also has chronic px in left hip and R shoulder.; Reason: Pain; Clinical Question(s): Fracture COMPARISON: 05/24/2020 FINDINGS: No fracture or dislocation. Mild glenohumeral joint space narrowing and marginal spurring. Mild degenerative changes of the AC joint. The portion of the clavicle included on the exam is normal. No calcification of the rotator cuff. IMPRESSION: Degenerative changes of the left shoulder with no evidence of acute osseous abnormality WSN: [id number] Ordering Physician: Jan Eddy Dictated By: Will Gastelum MD Dictated Date/Time: 04/20/22 4:16 pm Reviewed By: Will Gastelum MD Signed By: Will Gastelum MD Signed Date/Time: 04/20/22 4:16 pm Transcribed By: MEY Transcribed Date/Time: 04/20/22 4:15 pm XR Pelvis and Hip - left Views * [employer] , CIS S: TRANSCRIBE Will Gastelum MD: VERIFY Event Display: Result: Authored Date: [id number] XR Hip w/Pelvis 2-3 View Left HX OF PRESENT ILLNESS: ? arthritic px SI with plan. Pt states he drove to a bridge and thought about jumping off. 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 Status post bilateral hip arthroplasties. Surrounding heterotopic ossification, not significantly changed. Degenerative changes of the visualized lumbar spine. There are atherosclerotic vascular calcifications. IMPRESSION: No evidence of acute osseous abnormality. WSN: [id number] Ordering Physician: Jan Eddy Dictated By: Will Gastelum MD Dictated Date/Time: 04/20/22 4:17 pm Reviewed By: Will Gastelum MD Signed By: Will Gastelum MD Signed Date/Time: 04/20/22 4:17 pm Transcribed By: CSGera Transcribed Date/Time: 04/20/22 4:16 pm Patient Care team information Care Team Personnel Name: Isra Ivan MD Position: [facility] Primary Care Physician Member Role: PCP Address: Address: [address] [place] [address]- Name: Thu Coates Position: [facility] Outreach Member Role: Lifetime Consulting Physician Name: Jeff Vasques RN Position: [facility] ED RN W/OE and Tasks Member Role: Patient Care Provider Name: Woo Faustin MD Position: [facility] ED Medicine MD Member Role: Admitting Physician Address: Address: [address] [place] [address]- Care Team Related Persons Name: RD GARCIA Address: home [address] [place] [id number] Name: MOISES WH[place]EN [place] [address]
--- OUTSIDE RECORDS SUMMARY | 2022-10-12 16:57 | XMS_ITS | Continuity of Care Document ---
Author Name Unknown Organization [facility] Medicine Address [address] [place] [address]- Care Team Providers Care Tire And Lube Technician Name Role Phone Isra Ivan MD Primary Care Physician Encounter [facility] Date(s): 06/11/22 - 07/14/22 [facility] [address] [place] [id number]- Attending Physician: Isra Ivan MD Admitting Physician: [...] Maintenance, 03/29/22 15:38:00 EST, Gel, [facility] #[id number], Partial fill upon patient request if the [...] Refills, Maintenance, 05/18/22 11:43:00 EST, [facility] #[id number], 170, cm, 04/21/22 16:03:00 EST, Height, 68, [...] Safety Implantable Status Assigning Authority Unknown Unknown [id number] Unknown 07/27/22 Unknown Unknown Active Unknown Patient Care team information Care Team Personnel Name: Isra Ivan MD Position: [facility] Primary Care Physician Member Role: PCP Address: Address: [address] [place] [id number]- Name: Thu Coates Position: [facility] Outreach Member Role: Lifetime Consulting Physician Care Team Related Persons Name: RD GARCIA Address: [address] [address] Name: MOISES WHALEN Address: [place] [address]
--- OUTSIDE RECORDS SUMMARY | 2022-10-12 16:57 | XMS_ITS | Continuity of Care Document ---
Author Name Unknown Organization [facility] Medicine Address [address] [place] [address]- Care Team Providers Care Screen Roller Name Role Phone Isra Ivan MD Primary Care Physician Encounter [facility] Date(s): 08/10/22 - 09/09/[address] [address]- Attending Physician: Gabby Ramiers Admitting Physician: AdmtrGabby Referring Physician: Admtr, Ar8 [...] Maintenance, 03/29/22 15:38:00 EST, Gel, [facility] #[id number], Partial fill upon patient request if the [...] Refills, Maintenance, 05/18/22 11:43:00 EST, [facility] #[id number], 170, cm, 04/21/22 16:03:00 EST, Height, 68, [...] Safety Implantable Status Assigning Authority Unknown Unknown [id number] Unknown 07/27/22 Unknown Unknown Active Unknown Patient Care team information Care Team Personnel Name: Isra Ivan MD Position: [facility] Physician - Primary Care Member Role: PCP Address: Address: [address] [place] [address]- Name: Thu Coates Position: [facility] Outreach Member Role: Lifetime Consulting Physician Care Team Related Persons Name: RD GARCIA Address: [address] [address] Name: MOISES WHALEN Address: [place] [address]
--- OUTSIDE RECORDS SUMMARY | 2022-10-12 16:58 | XMS_ITS | Continuity of Care Document ---
Author Name Unknown Organization [facility] Medicine Address [address] [place] [address]- Care Team Providers Care Civil Engineering Manager Name Role Phone Marzena CHING, Isra Vela Primary Care Physician En[place] [facility] [place] Date(s): 08/16/22 - 09/15/22 [facility] [address] [place] [phone]- Allergies, Adverse Reactions, Alerts Substance Reaction Severity [...] Maintenance, 03/29/22 15:38:00 EST, Gel, [facility] #[id number], Partial fill upon patient request if the [...] Refills, Maintenance, 05/18/22 11:43:00 EST, [facility] #[id number], 170, cm, 04/21/22 16:03:00 EST, Height, 68, [...] Safety Implantable Status Assigning Authority Unknown Unknown [id number] 0 Unknown 07/27/22 Unknown Unknown Active Unknown Patient Care team information Care Team Personnel Name: Marzena CHING, Isra Vela Position: [facility] Physician - Primary Care Member Role: PCP Address: Address: [address] [place] [phone]- Name: Thu Coates Position: [facility] Outreach Member Role: Lifetime Consulting Physician Care Team Related Persons Name: RD GARCIA Address: [address] [address] Name: MOISES WHALEN Address: [place] [address]
--- OUTSIDE RECORDS SUMMARY | 2022-10-12 16:58 | XMS_ITS | Continuity of Care Document ---
Author Name Unknown Organization [facility] Medicine Address [address] [place] [address]- Care Team Providers Care Product Development Chemist Name Role Phone Isra Ivan MD Primary Care Physician [phone] [place] [facility] [place] [place] 06/28/22 - 09/09/22 [facility] [address] [place] [address]- Attending Physician: Isra Ivan MD Admitting Physician: [...] Maintenance, 03/29/22 15:38:00 EST, Gel, [facility] #[id number], Partial fill upon patient request if the [...] Refills, Maintenance, 05/18/22 11:43:00 EST, [facility] #[id number], 170, cm, 04/21/22 16:03:00 EST, Height, 68, [...] Safety Implantable Status Assigning Authority Unknown Unknown [id number] 0 Unknown 07/27/22 Unknown Unknown Active Unknown Patient Care team information Care Team Personnel Name: Marzena CHING, Isra Vela Position: [facility] Physician - Primary Care Member Role: PCP Address: Address: [address] [place] [address]- Name: Thu Coates Position: [facility] Outreach Member Role: Lifetime Consulting Physician Care Team Related Persons Name: RD GARCIA Address: [address] [address] Name: MOISES WHALEN Address: [place] [address]
[2022-10-12 18:00] VITALS: BP 134/84; PULSE 71; RESP 18; TEMP 36.1; O2SAT 97
--- NOTE | 2022-10-12 18:04 | PC.ADMIT ---
THIS PT ARRIVED ON THE UNIT AT 1800 WITH A 12B SIGNED BY DR. FERRIS. A&OX3-LACKS INSIGHT INTO SITUATION. HE WAS TRANSFERED FROM [facility] VIA AMBULANCE. HE WAS BROUGHT TO THEIR ED FROM THE HOTEL THAT HE WAS LIVING IN, D/T SEVERAL COMPLAINTS FROM OTHER RESIDENCE OF THE HOTEL. THEY STATED THAT HE WAS KNOCKING ON THEIR DOORS ASKING FOR HIS MEDICATION AND APPEARED TO BE IN A CONFUSED AND DISORIENTED STATE. PT IS HYPOMANIC WITH SLIGHTLY PRESSURED SPEECH. PT IS ARGUMENTATIVE WITH STAFF AT EVERY POINT. PT HAS POOR EYE CONTACT WITH A DISHEVELED APPEARANCE. PT HAD A NEGATIVE TOXICOLOGY SCREENING. COVID NEGATIVE AND ON 5 MINUTE CHECKS.
[2022-10-12] MEDS: traZODone HCL 50 MG TABLET PO (20:39)
[2022-10-12] MEDS: OLANZapine 2.5 MG TABLET PO (20:40)
[2022-10-13 06:51] LABS: Alanine Aminotransferase 14 U/L (0-40); Albumin Level 3.8 g/dL (3.5-5.0); Alkaline Phosphatase 65 U/L (39-117); Anion Gap 13 (12-20); Aspartate Amino Transferase 19 U/L (5-37); Bilirubin Total 0.4 mg/dL (0.0-1.0); Blood Urea Nitrogen 16 mg/dL (9-16); Calcium 9.6 mg/dL (8.4-10.2); Carbon Dioxide 23 mmol/L (22-29); Chloride 110 mmol/L (96-108); Cholesterol 209 mg/dL; Estimated Glomerular Filt Rate > 60; Glucose Fasting 104 mg/dL (60-99); HDL Cholesterol 38 mg/dL; LDL Cholesterol Calculated 148 mg/dl; Potassium 4.1 mmol/L (3.3-5.1); Sodium 142 mmol/L (135-145); Total Protein 6.2 g/dL (6.5-8.0); Triglycerides 115 mg/dL
[2022-10-13 08:00] VITALS: BP 163/80; PULSE 66; RESP 16; TEMP 36.2; O2SAT 98
--- NOTE | 2022-10-13 09:12 | P.HPPS_ITS ---
HPI Date of Service: 10/13/22 Chief Complaint: F31.9, F43.25 Sources of Information: patient interviewed, chart reviewed and crisis/core team assessment reviewed HPI Subjective Notes: [place] Warning and Conditional Voluntary Narrative: Patient is an 82-year-old man with a psychiatric history of bipolar depression, admitted to the geriatric unit on 04/22/2022 and a medical history of: hyperlipidemia, tubular adenoma colon (last colonoscopy 12/21), BPH, chronic normocytic anemia, osteoarthritis shoulders and hips s/p b/l hip arthroplasty, chronic low back pain with lumbar stenosis, hx rotator cuff tear, actinic keratosis, and atypical melanocytic hyperplasia (info taken from 04/22/22 admission) Patient presents on a Section 12, who presents via 911 call as patient was being disruptive in the community, banging on neighbors doors asking where was his trazodone. Patient is a poor historian and cannot answer questions. When asked a question patient responds with something irrelevant and cannot be redirected. Patient did however communicated that he used to have his own home but it was foreclosed on about a year ago because he was allowing homeless people to live there; afterward he went to live at a friend's house where he fell and hurt his left hip. He said for the last several months he has been living at another friend's house (currently it is unclear if he was living at someone's house or in a hotel). Patient is disheveled. On the night of admission, he became slightly aggressive, barging into female peers room and very difficult to redirect, rumaging through another peers belongings in trying to throw them out and again very difficult to redirect. Patient however received Zyprexa with good affect and was able to sleep through the night. Past Psychiatric History: IP: [facility] SI 04/22/22 [facility] 12/2019 OP: No connections currently Trials: Sertraline, Hydroxyzine Medical Evaluation Reviewed: Hospitalist Roni Pending [facility] Medical History (Updated 05/03/22 @ 00:01 by Cj Noel) Atypical melanocytic hyperplasia Bipolar disorder, now depressed BPH loc w/o ur obs/LUTS Depression Eczema Housing situation unstable Hyperlipidemia Hypogonadism in male Lumbar stenosis Osteoarthritis Tubular adenoma of colon Surgical History H/O colonoscopy History of bilateral hip arthroplasty History of melanoma excision Hx of repair of left rotator cuff S/P inguinal hernia repair Family History: Depression, Bipolar Disorder Social History: One sister, one brother Never , No children 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 Legally on parole- hx of disputes with tenants and arrest for burning flags (activist activity) Currently receives SSI/SSDI forced sale of home and s/p long legal adair in 2021 (due to allowing homeless people to remain in the home) Substance History: denies Trauma History: Loss of his home Diagnostics Vital Signs (24Hr): Vital Signs - 24 hr 10/12/22 18:00 Temperature 96.9 F Pulse Rate 71 Respiratory Rate 18 Blood Pressure 134/84 Pulse Oximetry 97 Oxygen Delivery Method Room Air Labs 10/13/22 06:26 Labs: Laboratory Results - last 48 hr 10/13/22 06:26 Sodium 142 Potassium 4.1 Chloride 110 H Carbon Dioxide 23 Anion Gap 13 BUN 16 Creatinine 0.78 Estim Creat Clear Calc TNP Estimated GFR > 60 Fasting Glucose 104 H Calcium 9.6 Total Bilirubin 0.4 AST 19 ALT 14 Alkaline Phosphatase 65 Total Protein 6.2 L Albumin 3.8 Triglycerides 115 Cholesterol 209 LDL Cholesterol, Calc 148 HDL Cholesterol 38 Meds/Allergies Allergies Allergies Allergy/AdvReac Type Severity Reaction Status Date / Time pollen extracts Allergy Unknown unknown Verified 04/21/22 14:56 latex Allergy Unknown Rash Uncoded 04/21/22 14:55 Mental Status Exam Mental Status Exam Narrative: Pt is alert but not oriented; behavior is friendly; intermittently calm but also intrusive and moments of aggressive; patient is not in distress; dressed in casual attire and disheveled; mood is described as good and affect a little expansive; eye contact appropriate; Speech is verbose but not necessarily pressured; normal volume and prosody; psychomotor agitation present; thought process tangential, disorganized; Thought content is various random topics; does not express any SI/HI. Unclear about AVH Patients insight and judgment impaired Assessment & Plan Assessment & Plan (1) Cognitive impairment: Status: Acute Code(s): R41.89 - Other symptoms and signs involving cognitive functions and awareness Plan Patient is an 82-year-old man with a psychiatric history of bipolar depression, admitted to the geriatric unit on 04/22/2022 and a medical history of: hyperlipidemia, tubular adenoma colon (last colonoscopy 12/21), BPH, chronic normocytic anemia, osteoarthritis shoulders and hips s/p b/l hip arthroplasty, chronic low back pain with lumbar stenosis, hx rotator cuff tear, actinic keratosis, and atypical melanocytic hyperplasia (info taken from 04/22/22 admission) Patient presents on a Section 12, who presents via 911 call as patient was being disruptive in the community, banging on neighbors doors asking where was his trazodone. Patient is a poor historian and cannot answer questions. When asked a question patient responds with something irrelevant and cannot be redirected. Patient did however communicated that he used to have his own home but it was foreclosed on about a year ago because he was allowing homeless people to live there; afterward he went to live at a friend's house where he fell and hurt his left hip. He said for the last several months he has been living at another nilson's house (currently it is unclear if he was living at someone's house or in a hotel). Patient is disheveled. On the night of admission, he became slightly aggressive, barging into female peers room and very difficult to redirect, rumaging through another peers belongings in trying to throw them out and again very difficult to redirect. Patient however received Zyprexa with good effect and was able to sleep through the night. F/P Patient is a unreliable historian, too disorganized to answer questions. Was treated with sertraline at last admission and Haldol as a p.r.n., however patient does seem present is manic and as some notation of bipolar depression so will consider mood stabilizer if patient amenable Zyprexa 2.5 mg t.i.d. p.r.n. for aggressive/agitated behavior Will defer to hospitalist regarding other home medication for medical comorbidities Patient educated on: diagnosis and medication risk/benefits Informed Consent: does not understand and further education needed Reason for continued inpatient stay Substantial Risk for: inability to function Statement Statement: I have reviewed the history and physical and performed a pertinent examination on my patient. No changes have occurred unless specified. If the History and Physical was not performed prior to admission, the Hospitalist's service will be consulted for completing the admission physical. Time Spent With Patient Time: Total time managing care of this patient today ____ minutes.
[2022-10-13] MEDS: Acetaminophen 325 MG TABLET 650 MG PO ×2 (09:56→17:16)
[2022-10-13 18:00] VITALS: BP 100/57; PULSE 68; RESP 18; TEMP 36.8; O2SAT 97
[2022-10-13] MEDS: OLANZapine 2.5 MG TABLET PO (20:46)
[2022-10-14] MEDS: traZODone HCL 50 MG TABLET PO (00:32)
[2022-10-14 09:00] VITALS: BP 120/69; PULSE 59; RESP 18; TEMP 36.1; O2SAT 95
--- NOTE | 2022-10-14 10:54 | HO.PSYCHPN ---
Subjective Subjective Date of Service: 10/14/22 Reason For Visit: F31.9, F43.25 Interim History: met with patient; discussed with team early pt reported to be agitated but redirectable; pt calmed down and was cooperative. On approach friendly, says he's good; eating well; slept well last night. When trying to talk with patient he reverts back to chronic hip pain from injury a year ago and his answers mostly just references this injury He clarified living situation and said he was staying in a hotel for the past few days but prior to that was at a friends. asked again about admission to the hospital and pt does not want to sign in and says it was not my idea to come here. Mental Status Exam Mental Status Exam Narrative: Pt is alert but not oriented; behavior is friendly but intrusive and moments of agitation; patient is not in distress; dressed in casual attire and unkempt; mood is described as good and affect congruent; eye contact appropriate; Speech is normal rate, volume and prosody; intermittent psychomotor agitation present; thought process tangential; Thought content on chronic hip pain from past injury; or on various random topics; does not express any SI/HI. Unclear about AVH Patients insight and judgment impaired Diagnostics Vital Signs (24Hr): Vital Signs - 24 hr 10/13/22 18:00 10/14/22 09:00 Temperature 98.2 F 97.0 F Pulse Rate 68 59 Respiratory Rate 18 18 Blood Pressure 100/57 L 120/69 Pulse Oximetry 97 95 Oxygen Delivery Method Room Air Room Air Labs 10/13/22 06:26 Labs: Laboratory Results - last 48 hr 10/13/22 06:26 Sodium 142 Potassium 4.1 Chloride 110 H Carbon Dioxide 23 Anion Gap 13 BUN 16 Creatinine 0.78 Estim Creat Clear Calc TNP Estimated GFR > 60 Fasting Glucose 104 H Calcium 9.6 Total Bilirubin 0.4 AST 19 ALT 14 Alkaline Phosphatase 65 Total Protein 6.2 L Albumin 3.8 Triglycerides 115 Cholesterol 209 LDL Cholesterol, Calc 148 HDL Cholesterol 38 Medications Medications Current Medications Acetaminophen (Acetaminophen 325 Mg Tablet) 650 mg PO Q6H PRN PRN Reason: Headache/Pain Mild Scale (1-3) Last Admin: 10/13/22 17:16 Dose: 650 mg Al Hydroxide/Mg Hydroxide (Magnesium Hydrox/Alum Hydrox 30 Ml Oral.Susp) 30 ml PO Q6H PRN PRN Reason: Heartburn/Nausea Hydroxyzine HCl (Hydroxyzine Hcl 25 Mg Tablet) 25 mg PO Q6H PRN PRN Reason: Anxiety Magnesium Hydroxide (Milk Of Magnesia 30 Ml Oral.Susp) 30 ml PO DAILY PRN PRN Reason: Constipation Olanzapine (Olanzapine 2.5 Mg Tablet) 2.5 mg PO TID PRN PRN Reason: agitation Olanzapine (Olanzapine 2.5 Mg Tablet) 2.5 mg PO BEDTIME CASEY Last Admin: 10/13/22 20:46 Dose: 2.5 mg Trazodone HCl (Trazodone Hcl 50 Mg Tablet) 50 mg PO BEDTIME MRX1 PRN PRN Reason: Insomnia Last Admin: 10/14/22 00:32 Dose: 50 mg Allergies Allergies Allergy/AdvReac Type Severity Reaction Status Date / Time pollen extracts Allergy Unknown unknown Verified 04/21/22 14:56 latex Allergy Unknown Rash Uncoded 04/21/22 14:55 Assessment & Plan Assessment & Plan (1) Cognitive impairment: Status: Acute Code(s): R41.89 - Other symptoms and signs involving cognitive functions and awareness Plan Patient is an 82-year-old man with a psychiatric history of bipolar depression, admitted to the geriatric unit on 04/22/2022 and a medical history of: hyperlipidemia, tubular adenoma colon (last colonoscopy 12/21), BPH, chronic normocytic anemia, osteoarthritis shoulders and hips s/p b/l hip arthroplasty, chronic low back pain with lumbar stenosis, hx rotator cuff tear, actinic keratosis, and atypical melanocytic hyperplasia (info taken from 04/22/22 admission) Patient presents on a Section 12, who presents via 911 call as patient was being disruptive in the community, banging on neighbors doors asking where was his trazodone. Patient is a poor historian and cannot answer questions. When asked a question patient responds with something irrelevant and cannot be redirected. Patient did however communicated that he used to have his own home but it was foreclosed on about a year ago because he was allowing homeless people to live there; afterward he went to live at a friend's house where he fell and hurt his left hip. He said for the last several months he has been living at another friend's house (currently it is unclear if he was living at someone's house or in a hotel). Patient is disheveled. On the night of admission, he became slightly aggressive, barging into female peers room and very difficult to redirect, rumaging through another peers belongings in trying to throw them out and again very difficult to redirect. Patient however received Zyprexa with good effect and was able to sleep through the night. Hospital course: 10/14 started on Zyprexa 2.5 mg qhs. Was treated with sertraline at last admission and Haldol as a p.r.n. on presentation, pt seemed manic/hypomanic; will continue w/ zyprexa as there is also some notated hx of bipolar depression. F/P SECTION 12b Patient is a unreliable historian, too disorganized to answer questions. continue Zyprexa 2.5mg qhs. continue Zyprexa 2.5mg TID prn for aggressive/agitated behavior deferred to hospitalist regarding other home medication for medical comorbidities Patient educated on: diagnosis Informed Consent: does not understand Reason for continued inpatient stay Substantial Risk for: rapid decompensation Time Spent With Patient Time: Total time managing care of this patient today ____ minutes.
--- NOTE | 2022-10-14 18:13 | HO.PM.IMCN ---
History of Present Illness Data of Consult Service Date: 10/14/22 Requesting physician: Hank Mosley Primary Care Provider: Isra Ivan MD HPI Reason for consult: medical H&P 82 year old male with history hyperlipidemia, tubular adenoma colon (last colonoscopy 12/21), BPH, chronic normocytic anemia, osteoarthritis shoulders and hips s/p b/l hip arthroplasty, chronic low back pain with lumbar stenosis, depression, hx rotator cuff tear, actinic keratosis, and atypical melanocytic hyperplasia admitted to geriatric psychiatry from [facility] with consult placed to medical hospitalist service for medical H&P. His only complaint is left hip pain ongoing since May. unable to ascertain relevant history particularly regarding patient's chronic left hip pain ongoing since May. Multiple attempts made to redirect patient to obtain relevant history but patient refuses and becomes irritated refusing further examination and states that he was not advised this was a medical examination. In presence of nursing staff, this provider introduced herself as part of the medical team and requested to meet with the patient privately for medical evaluation. On review of [facility] chart from ED 08/10, he reported to that provider he had stepped into a hole with his left foot and fell onto the left hip area. Xray of the hip/pelvis at that time (04/20/22) as negative but due to worsening pain, CT pelvis was ordered on 08/10 which was negative for any displaced pelvic fracture and showed bilateral hip arthroplasty hardware and placed. There was a 1.1 cm anterolisthesis at the lumbosacral junction and partially imaged laminectomy changes within the lower lumbar spine. He is able to ambulate without assistive device taking small steps. On review of chart, patient is homeless, no cigarettes, illicit drug use, or alcohol use. Patient was admitted on 10/12. Reviewed chart from [facility] ED> Hematology studies unremarkable except mild normocytic anemia. Renal function and electrolyte levels normal. Urine tox screen negative. Ethyl alcohol level undetected. Urinalysis unremarkable. Chest x-ray negative for any acute cardiopulmonary abnormality. EKG showed sinus bradycardia, rate 59 with first-degree AV block and prolonged QT of 5 O2, no ST or depressions. Review of Systems Review of Systems: Yes Unobtainable due to mental status [facility] Medical History Atypical melanocytic hyperplasia Bipolar disorder, now depressed BPH loc w/o ur obs/LUTS Depression Eczema Housing situation unstable Hyperlipidemia Hypogonadism in male Lumbar stenosis Osteoarthritis Tubular adenoma of colon Family History Sister COPD (chronic obstructive pulmonary disease) Bipolar disorder Mother COPD (chronic obstructive pulmonary disease) CAD (coronary artery disease) Surgical History H/O colonoscopy History of bilateral hip arthroplasty History of melanoma excision Hx of repair of left rotator cuff S/P inguinal hernia repair Social History Household Members: Unknown / Unable to assess Household Members Other:: Declines to disclose Housing: Homeless Do you presently have visiting nurse or other home services: No Alcohol intake: never Patient Tobacco Use Status: Never used Tobacco e-Cigarette/Vaping Use: Never Used Second Hand Smoke Exposure: No Currently Displaying Signs/Symptoms of Drug Intoxication Withdrawal: No Advance Directives: No Advance Directives Information Provided: No Do you have thoughts of harming others: None Do you have a plan to hurt others: No Plan service: No Sexual orientation: Straight/Heterosexual Meds Allergies Allergy/AdvReac Type Severity Reaction Status Date / Time pollen extracts Allergy Unknown unknown Verified 04/21/22 14:56 latex Allergy Unknown Rash Uncoded 04/21/22 14:55 Active Medications: Current Medications Acetaminophen (Acetaminophen 325 Mg Tablet) 650 mg PO Q6H PRN PRN Reason: Headache/Pain Mild Scale (1-3) Last Admin: 10/13/22 17:16 Dose: 650 mg Al Hydroxide/Mg Hydroxide (Magnesium Hydrox/Alum Hydrox 30 Ml Oral.Susp) 30 ml PO Q6H PRN PRN Reason: Heartburn/Nausea Hydroxyzine HCl (Hydroxyzine Hcl 25 Mg Tablet) 25 mg PO Q6H PRN PRN Reason: Anxiety Magnesium Hydroxide (Milk Of Magnesia 30 Ml Oral.Susp) 30 ml PO DAILY PRN PRN Reason: Constipation Olanzapine (Olanzapine 2.5 Mg Tablet) 2.5 mg PO TID PRN PRN Reason: agitation Olanzapine (Olanzapine 2.5 Mg Tablet) 2.5 mg PO BEDTIME CASEY Last Admin: 10/13/22 20:46 Dose: 2.5 mg Trazodone HCl (Trazodone Hcl 50 Mg Tablet) 50 mg PO BEDTIME MRX1 PRN PRN Reason: Insomnia Last Admin: 10/14/22 00:32 Dose: 50 mg Physical Exam Vital Signs and Narrative: Vital Signs: Last Vital Signs Temp 97.0 F 10/14/22 09:00 Pulse 59 10/14/22 09:00 Resp 18 10/14/22 09:00 BP 120/69 10/14/22 09:00 Pulse Ox 95 10/14/22 09:00 O2 Del Method Room Air 10/14/22 09:00 Constitutional - Awake and Alert, No apparent distress Eyes - PERRL, EOMs appear in tact Respiratory - Normal respiratory effort, No respiratory distress Neurological - Alert & oriented to person, antalgic gait Pt refuses remainder of exam Results Labs 10/13/22 06:26 Assessment and Plan (1) Routine medical exam: Status: Acute Plan 82 year old male with history hyperlipidemia, tubular adenoma colon (last colonoscopy 12/21), BPH, chronic normocytic anemia, osteoarthritis shoulders and hips s/p b/l hip arthroplasty, chronic low back pain with lumbar stenosis, depression, hx rotator cuff tear, actinic keratosis, and atypical melanocytic hyperplasia admitted to geriatric psychiatry from [facility] with consult placed to medical hospitalist service for medical H&P. 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 Can use ibuprofen 600mg q6h prn as well if topical diclofenac unavailable. #Chronic left hip pain -per ED provider note at [facility], patient foot got stuck in a hole several months ago and fell onto the left hip. Subsequent imaging studies including x-ray of the hip/pelvis and CT of the pelvis are negative for fracture -Pain management as above -outpt follow up Pt refused physical extensive. Extensive review of prior note and records from [facility] conducted as noted above. Thank you for allowing me to participate in this consult. Signing off at this time. Please do not hesitate to call for further questions. Time Spent With Patient Time: Total time managing care of this patient today ____ minutes.
--- NOTE | 2022-10-14 18:14 | PC.NURSE ---
Pt said, he has constant pain in his back/hip 6-7 in 1-10 scale, however, refused PRN pain med which was offered multiple times. Pt said, he will take it before bed. Hospitalist Gloria leal.
[2022-10-14 19:30] VITALS: BP 90/54; PULSE 61; RESP 16; TEMP 36.2; O2SAT 93
[2022-10-14] MEDS: Acetaminophen 325 MG TABLET 650 MG PO (21:21)
[2022-10-14] MEDS: OLANZapine 2.5 MG TABLET PO (21:22)
--- NOTE | 2022-10-15 08:04 | P.PNPSI_ITS ---
Subjective Subjective Date of Service: 10/15/22 Reason For Visit: F31.9, F43.25 Subjective Notes: Section 12B Interim History: The nursing staff reported the patient had been compliant with treatment last night, he is confused but redirectable. He has refused to sign conditional voluntary or any other paper since he stated that he it was not his idea to come here. On interview, the patient denies new symptoms he only complains of hip pain from an injury for last year. We will try to gather collateral information. Mental Status Exam Mental Status Exam Patient Appearance: Appropriate Patient Orientation: Person and Situation Level of Consciousness: Awake Patient Behavior: Guarded and Passive Mood Description: Calm Affect Description: Constricted Patient Cognition Impaired: Yes Ability to Follow Directions: Fair Speech Pattern: Clear Hallucinations: None Delusions: Grandiose Thought Process: Racing and Distracted Thought Content: positive for [place] and positive for Poverty of Content Judgement: Poor Diagnostics Vital Signs (24Hr): Vital Signs - 24 hr 10/14/22 09:00 10/14/22 19:30 Temperature 97.0 F 97.2 F Pulse Rate 59 61 Respiratory Rate 18 16 Blood Pressure 120/69 90/54 L Pulse Oximetry 95 93 Oxygen Delivery Method Room Air Room Air Labs 10/13/22 06:26 Medications Medications Current Medications Acetaminophen (Acetaminophen 325 Mg Tablet) 650 mg PO Q6H PRN PRN Reason: Headache/Pain Mild Scale (1-3) Last Admin: 10/14/22 21:21 Dose: 650 mg Al Hydroxide/Mg Hydroxide (Magnesium Hydrox/Alum Hydrox 30 Ml Oral.Susp) 30 ml PO Q6H PRN PRN Reason: Heartburn/Nausea Hydroxyzine HCl (Hydroxyzine Hcl 25 Mg Tablet) 25 mg PO Q6H PRN PRN Reason: Anxiety Magnesium Hydroxide (Milk Of Magnesia 30 Ml Oral.Susp) 30 ml PO DAILY PRN PRN Reason: Constipation Olanzapine (Olanzapine 2.5 Mg Tablet) 2.5 mg PO TID PRN PRN Reason: agitation Olanzapine (Olanzapine 2.5 Mg Tablet) 2.5 mg PO BEDTIME CASEY Last Admin: 10/14/22 21:22 Dose: 2.5 mg Trazodone HCl (Trazodone Hcl 50 Mg Tablet) 50 mg PO BEDTIME MRX1 PRN PRN Reason: Insomnia Last Admin: 10/14/22 00:32 Dose: 50 mg Allergies Allergies Allergy/AdvReac Type Severity Reaction Status Date / Time pollen extracts Allergy Unknown unknown Verified 04/21/22 14:56 latex Allergy Unknown Rash Uncoded 04/21/22 14:55 Assessment & Plan Assessment & Plan (1) Routine medical exam: Status: Acute Code(s): Z00.00 - Encounter for general adult medical examination without abnormal findings Plan 82 year old male with history hyperlipidemia, tubular adenoma colon (last colonoscopy 12/21), BPH, chronic normocytic anemia, osteoarthritis shoulders and hips s/p b/l hip arthroplasty, chronic low back pain with lumbar stenosis, depression, hx rotator cuff tear, actinic keratosis, and atypical melanocytic hyperplasia admitted to geriatric psychiatry from [facility] with consult placed to medical hospitalist service for medical H&P. 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 Can use ibuprofen 600mg q6h prn as well if topical diclofenac unavailable. #Chronic left hip pain -per ED provider note at [facility], patient foot got stuck in a hole several months ago and fell onto the left hip. Subsequent imaging studies including x-ray of the hip/pelvis and CT of the pelvis are negative for fracture -Pain management as above -outpt follow up Pt refused physical extensive. Extensive review of prior note and records from [facility] conducted as noted above. Plan 1. Gather collateral information. 2. Continue with Zyprexa at bedtime. 3. We will try to taper of antidepressant since the patient is manic at this point. Reason for continued inpatient stay Substantial Risk for: inability to function, rapid decompensation and med/psych decompensation Time Spent With Patient Time: Total time managing care of this patient today _20___ minutes.
[2022-10-15 08:20] VITALS: BP 99/62; PULSE 62; RESP 18; TEMP 36.6; O2SAT 97
--- NOTE | 2022-10-15 13:21 | PC.NURSE ---
Patient later reports that he lost his housing and needs help finding a place to live.
[2022-10-15 19:30] VITALS: BP 97/64; PULSE 76; RESP 24; TEMP 36.2; O2SAT 96
[2022-10-15] MEDS: Acetaminophen 325 MG TABLET 650 MG PO (20:49)
[2022-10-15] MEDS: OLANZapine 2.5 MG TABLET PO (20:51)
[2022-10-16 08:00] VITALS: BP 138/74; PULSE 61; RESP 16; TEMP 36.2; O2SAT 98
--- NOTE | 2022-10-16 12:09 | P.PNPSI_ITS ---
Subjective Subjective Date of Service: 10/16/22 Reason For Visit: F31.9, F43.25 Subjective Notes: Section 12B Interim History: Nursing staff reported the patient is only alert to self he had been common and easily redirectable. The elementary school social worker reported that they could not contact any collateral yet. On interview the patient is pleasantly confused, easily redirectable. Compliant with treatment. Mental Status Exam Mental Status Exam Patient Appearance: Well Grooomed and Appropriate Patient Orientation: Person Level of Consciousness: Disoriented and Follows Commands Patient Behavior: Guarded and Passive Mood Description: Calm Affect Description: Constricted Patient Cognition Impaired: Yes Ability to Follow Directions: Good Speech Pattern: Clear Hallucinations: None Delusions: Not Present Thought Process: Racing and Distracted Thought Content: positive for [place] and positive for Circumstantial Judgement: Fair Diagnostics Vital Signs (24Hr): Vital Signs - 24 hr 10/15/22 19:30 10/16/22 08:00 Temperature 97.1 F 97.2 F Pulse Rate 76 61 Respiratory Rate 24 H 16 Blood Pressure 97/64 138/74 Pulse Oximetry 96 98 Oxygen Delivery Method Room Air Room Air Labs 10/13/22 06:26 Medications Medications Current Medications Acetaminophen (Acetaminophen 325 Mg Tablet) 650 mg PO Q6H PRN PRN Reason: Headache/Pain Mild Scale (1-3) Last Admin: 10/15/22 20:49 Dose: 650 mg Al Hydroxide/Mg Hydroxide (Magnesium Hydrox/Alum Hydrox 30 Ml Oral.Susp) 30 ml PO Q6H PRN PRN Reason: Heartburn/Nausea Hydroxyzine HCl (Hydroxyzine Hcl 25 Mg Tablet) 25 mg PO Q6H PRN PRN Reason: Anxiety Magnesium Hydroxide (Milk Of Magnesia 30 Ml Oral.Susp) 30 ml PO DAILY PRN PRN Reason: Constipation Olanzapine (Olanzapine 2.5 Mg Tablet) 2.5 mg PO TID PRN PRN Reason: agitation Olanzapine (Olanzapine 2.5 Mg Tablet) 2.5 mg PO BEDTIME CASEY Last Admin: 10/15/22 20:51 Dose: 2.5 mg Trazodone HCl (Trazodone Hcl 50 Mg Tablet) 50 mg PO BEDTIME MRX1 PRN PRN Reason: Insomnia Last Admin: 10/14/22 00:32 Dose: 50 mg Allergies Allergies Allergy/AdvReac Type Severity Reaction Status Date / Time pollen extracts Allergy Unknown unknown Verified 04/21/22 14:56 latex Allergy Unknown Rash Uncoded 04/21/22 14:55 Assessment & Plan Assessment & Plan (1) Routine medical exam: Status: Acute Code(s): Z00.00 - Encounter for general adult medical examination without abnormal findings Plan 82 year old male with history hyperlipidemia, tubular adenoma colon (last colonoscopy 12/21), BPH, chronic normocytic anemia, osteoarthritis shoulders and hips s/p b/l hip arthroplasty, chronic low back pain with lumbar stenosis, depression, hx rotator cuff tear, actinic keratosis, and atypical melanocytic hyperplasia admitted to geriatric psychiatry from [facility] with consult placed to medical hospitalist service for medical H&P. 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 Can use ibuprofen 600mg q6h prn as well if topical diclofenac unavailable. #Chronic left hip pain -per ED provider note at [facility], patient foot got stuck in a hole several months ago and fell onto the left hip. Subsequent imaging studies including x-ray of the hip/pelvis and CT of the pelvis are negative for fracture -Pain management as above -outpt follow up Pt refused physical extensive. Extensive review of prior note and records from [facility] conducted as noted above. Plan 1. Gather collateral information. 2. Continue with Zyprexa at bedtime. 3. We will try to taper of antidepressant since the patient is manic at this point. Reason for continued inpatient stay Substantial Risk for: inability to function, rapid decompensation and med/psych decompensation Time Spent With Patient Time: Total time managing care of this patient today __20__ minutes.
[2022-10-16 19:40] VITALS: BP 104/63; PULSE 74; RESP 18; TEMP 36.4; O2SAT 96
[2022-10-16] MEDS: OLANZapine 2.5 MG TABLET PO (20:22)
[2022-10-16] MEDS: traZODone HCL 50 MG TABLET PO (22:09)
[2022-10-17 06:00] VITALS: BP 111/59; PULSE 58; RESP 16; O2SAT 97
--- NOTE | 2022-10-17 10:18 | P.PNPSI_ITS ---
Subjective Subjective Date of Service: 10/17/22 Reason For Visit: F31.9, F43.25 Subjective Notes: Section 7, Section 8 and Section 12B Interim History: The nursing staff reported the patient had been irritable and argumentative with staff at times, he has medication compliant and he slept well last night. The social media editor reported that they were trying to get collateral information, apparently there is a niece who is close to him. Elder protective Services reported that he had been homeless and they only provide meals on wheels. On interview the patient is OK and wants to be discharge soon. Even though he is slightly confused at times with evident signs and symptoms of dementia. Historically he scored an Hebert test of 3.6. Mental Status Exam Mental Status Exam Patient Appearance: Well Grooomed and Appropriate Patient Orientation: Person and Situation Level of Consciousness: Awake and Appropriate Patient Behavior: Guarded and Passive Mood Description: Withdrawn Affect Description: Constricted Patient Cognition Impaired: Yes Ability to Follow Directions: Good Speech Pattern: Clear Hallucinations: None Delusions: Not Present Thought Process: Distracted and Evasive Thought Content: positive for [place] and positive for Poverty of Content Judgement: Poor Diagnostics Vital Signs (24Hr): Vital Signs - 24 hr 10/16/22 19:40 10/17/22 06:00 Temperature 97.5 F Pulse Rate 74 58 Respiratory Rate 18 16 Blood Pressure 104/63 111/59 L Pulse Oximetry 96 97 Oxygen Delivery Method Room Air Room Air Labs 10/13/22 06:26 Medications Medications Current Medications Acetaminophen (Acetaminophen 325 Mg Tablet) 650 mg PO Q6H PRN PRN Reason: Headache/Pain Mild Scale (1-3) Last Admin: 10/15/22 20:49 Dose: 650 mg Al Hydroxide/Mg Hydroxide (Magnesium Hydrox/Alum Hydrox 30 Ml Oral.Susp) 30 ml PO Q6H PRN PRN Reason: Heartburn/Nausea Hydroxyzine HCl (Hydroxyzine Hcl 25 Mg Tablet) 25 mg PO Q6H PRN PRN Reason: Anxiety Magnesium Hydroxide (Milk Of Magnesia 30 Ml Oral.Susp) 30 ml PO DAILY PRN PRN Reason: Constipation Olanzapine (Olanzapine 2.5 Mg Tablet) 2.5 mg PO TID PRN PRN Reason: agitation Olanzapine (Olanzapine 2.5 Mg Tablet) 2.5 mg PO BEDTIME [facility] Last Admin: 10/16/22 20:22 Dose: 2.5 mg Trazodone HCl (Trazodone Hcl 50 Mg Tablet) 50 mg PO BEDTIME MRX1 PRN PRN Reason: Insomnia Last Admin: 10/16/22 22:09 Dose: 50 mg Allergies Allergies Allergy/AdvReac Type Severity Reaction Status Date / Time pollen extracts Allergy Unknown unknown Verified 04/21/22 14:56 latex Allergy Unknown Rash Uncoded 04/21/22 14:55 Assessment & Plan Assessment & Plan (1) Routine medical exam: Status: Acute Code(s): Z00.00 - Encounter for general adult medical examination without abnormal findings Plan 82 year old male with history hyperlipidemia, tubular adenoma colon (last colonoscopy 12/21), BPH, chronic normocytic anemia, osteoarthritis shoulders and hips s/p b/l hip arthroplasty, chronic low back pain with lumbar stenosis, depression, hx rotator cuff tear, actinic keratosis, and atypical melanocytic hyperplasia admitted to geriatric psychiatry from [facility] with consult placed to medical hospitalist service for medical H&P. 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 Can use ibuprofen 600mg q6h prn as well if topical diclofenac unavailable. #Chronic left hip pain -per ED provider note at [facility], patient foot got stuck in a hole several months ago and fell onto the left hip. Subsequent imaging studies including x-ray of the hip/pelvis and CT of the pelvis are negative for fracture -Pain management as above -outpt follow up Pt refused physical extensive. Extensive review of prior note and records from [facility] conducted as noted above. Plan 1. Gather collateral information. 2. Continue with Zyprexa at bedtime. 3. The occupational therapist will work on cognitive assessment today. Reason for continued inpatient stay Substantial Risk for: inability to function, rapid decompensation and med/psych decompensation Time Spent With Patient Time: Total time managing care of this patient today __20__ minutes.
[2022-10-17 20:00] VITALS: BP 105/58; PULSE 77; RESP 18; TEMP 36.1; O2SAT 77
[2022-10-17] MEDS: OLANZapine 2.5 MG TABLET PO (20:19)
[2022-10-18 07:00] VITALS: BMI 25.5
[2022-10-18 09:50] VITALS: BP 110/68; PULSE 71; RESP 18; TEMP 36.4; O2SAT 98
--- NOTE | 2022-10-18 13:07 | HO.PSYCHPN ---
Subjective Subjective Date of Service: 10/18/22 Reason For Visit: F31.9, F43.25 Subjective Notes: Section 7 and Section 8 Interim History: Nursing staff reported the patient was out for lunch yesterday, he disclosed that he wants to leave the hospital as soon as possible but he is only oriented to self. The social work reported that his knees 80 called and she is fully aware of the finding of Section 7 8 and she stated that he needs placement. The occupational therapist will try to a cognitive assessment today but previously he scored tree 0.8 on the Hebert test in April. On interview the patient denies new symptoms he states that he wants to be discharged but he is currently homeless and there is no safe discharge planning, the patient is unable to understand why and stated that it is all a lie.. He is fully aware that I had to filed for Section 7 and 8 to keeping in the hospital while we find proper placement. He refused to sign a CV and he was adamant that he can fence by himself even though that he has cognitive impairment.I redirected to the to contact his friend Bakari and corroborate his story. Mental Status Exam Mental Status Exam Patient Appearance: Appropriate Patient Orientation: Person Level of Consciousness: Awake Patient Behavior: Guarded and Passive Mood Description: Withdrawn Affect Description: Constricted Patient Cognition Impaired: Yes Ability to Follow Directions: Good Speech Pattern: Clear Hallucinations: None Delusions: Not Present Thought Process: Incoherent, Distracted and Slowed Thinking Thought Content: positive for [place] and positive for Thought Blocking Judgement: Poor Diagnostics Vital Signs (24Hr): Vital Signs - 24 hr 10/17/22 20:00 10/18/22 09:50 Temperature 96.9 F 97.5 F Pulse Rate 77 71 Respiratory Rate 18 18 Blood Pressure 105/58 L 110/68 Pulse Oximetry 77 L 98 Oxygen Delivery Method Room Air Room Air Labs 10/13/22 06:26 Medications Medications Current Medications Acetaminophen (Acetaminophen 325 Mg Tablet) 650 mg PO Q6H PRN PRN Reason: Headache/Pain Mild Scale (1-3) Last Admin: 10/15/22 20:49 Dose: 650 mg Al Hydroxide/Mg Hydroxide (Magnesium Hydrox/Alum Hydrox 30 Ml Oral.Susp) 30 ml PO Q6H PRN PRN Reason: Heartburn/Nausea Hydroxyzine HCl (Hydroxyzine Hcl 25 Mg Tablet) 25 mg PO Q6H PRN PRN Reason: Anxiety Magnesium Hydroxide (Milk Of Magnesia 30 Ml Oral.Susp) 30 ml PO DAILY PRN PRN Reason: Constipation Olanzapine (Olanzapine 2.5 Mg Tablet) 2.5 mg PO TID PRN PRN Reason: agitation Olanzapine (Olanzapine 2.5 Mg Tablet) 2.5 mg PO BEDTIME CASEY Last Admin: 10/17/22 20:19 Dose: 2.5 mg Trazodone HCl (Trazodone Hcl 50 Mg Tablet) 50 mg PO BEDTIME MRX1 PRN PRN Reason: Insomnia Last Admin: 10/16/22 22:09 Dose: 50 mg Allergies Allergies Allergy/AdvReac Type Severity Reaction Status Date / Time pollen extracts Allergy Unknown unknown Verified 04/21/22 14:56 latex Allergy Unknown Rash Uncoded 04/21/22 14:55 Assessment & Plan Assessment & Plan (1) Routine medical exam: Status: Acute Code(s): Z00.00 - Encounter for general adult medical examination without abnormal findings Plan 82 year old male with history hyperlipidemia, tubular adenoma colon (last colonoscopy 12/21), BPH, chronic normocytic anemia, osteoarthritis shoulders and hips s/p b/l hip arthroplasty, chronic low back pain with lumbar stenosis, depression, hx rotator cuff tear, actinic keratosis, and atypical melanocytic hyperplasia admitted to geriatric psychiatry from [facility] with consult placed to medical hospitalist service for medical H&P. 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 Can use ibuprofen 600mg q6h prn as well if topical diclofenac unavailable. #Chronic left hip pain -per ED provider note at [facility], patient foot got stuck in a hole several months ago and fell onto the left hip. Subsequent imaging studies including x-ray of the hip/pelvis and CT of the pelvis are negative for fracture -Pain management as above -outpt follow up Pt refused physical extensive. Extensive review of prior note and records from [facility] conducted as noted above. Plan 1. Gather collateral information. His knees a me called and she provide more collateral information to the marriage and family social worker. Currently the patient is homeless and he is unable to take care of himself. We had to filed for Section 7 and 8 since the patient refused to sign the conditional voluntary. 2. Continue with Zyprexa at bedtime. 3. The occupational therapist will work on cognitive assessment today. Reason for continued inpatient stay Substantial Risk for: inability to function, rapid decompensation and med/psych decompensation Time Spent With Patient Time: Total time managing care of this patient today __20__ minutes.
[2022-10-18 18:00] VITALS: BP 114/73; PULSE 74; RESP 16; TEMP 35.8; O2SAT 96
[2022-10-18] MEDS: OLANZapine 2.5 MG TABLET PO (20:10)
[2022-10-19 08:19] VITALS: RESP 18
--- NOTE | 2022-10-19 09:51 | PC.NURSE ---
Esvin declined vital signs; Dr. Ahmadi notified.
--- NOTE | 2022-10-19 11:06 | HO.PSYCHPN ---
Subjective Subjective Date of Service: 10/19/22 Reason For Visit: F31.9, F43.25 Subjective Notes: Section 7 and Section 8 Interim History: The nursing staff reported the patient had been taking his medications he ate his meals. The director social reported that they contact his friend Allan and he stated he is technically homeless. Yesterday, after speaking with him I redirected him to the director social and we try to get his telephone numbers from his phone. The patient later on refused to bring back the telephone even though that they be explain him that he cannot have a cellphone in the unit. Today on interview the patient reported that he wants his proof technician helper since he stated that a lot of people have light and put him here against his will. Mental Status Exam Mental Status Exam Patient Appearance: Well Grooomed and Appropriate Patient Orientation: Person and Situation Level of Consciousness: Awake and Appropriate Patient Behavior: Guarded and Passive Mood Description: Withdrawn Affect Description: Constricted Patient Cognition Impaired: Yes Ability to Follow Directions: Good Speech Pattern: Clear Hallucinations: None Delusions: Not Present Thought Process: Distracted Thought Content: positive for [place], positive for [place] and positive for [place] Judgement: Fair Diagnostics Vital Signs (24Hr): Vital Signs - 24 hr 10/18/22 18:00 10/19/22 08:19 Temperature 96.5 F L Pulse Rate 74 Respiratory Rate 16 18 Blood Pressure 114/73 Pulse Oximetry 96 Oxygen Delivery Method Room Air BMI result Body Mass Index 25.5 Labs 10/13/22 06:26 Medications Medications Current Medications Acetaminophen (Acetaminophen 325 Mg Tablet) 650 mg PO Q6H PRN PRN Reason: Headache/Pain Mild Scale (1-3) Last Admin: 10/15/22 20:49 Dose: 650 mg Al Hydroxide/Mg Hydroxide (Magnesium Hydrox/Alum Hydrox 30 Ml Oral.Susp) 30 ml PO Q6H PRN PRN Reason: Heartburn/Nausea Hydroxyzine HCl (Hydroxyzine Hcl 25 Mg Tablet) 25 mg PO Q6H PRN PRN Reason: Anxiety Magnesium Hydroxide (Milk Of Magnesia 30 Ml Oral.Susp) 30 ml PO DAILY PRN PRN Reason: Constipation Olanzapine (Olanzapine 2.5 Mg Tablet) 2.5 mg PO TID PRN PRN Reason: agitation Olanzapine (Olanzapine 2.5 Mg Tablet) 2.5 mg PO BEDTIME [facility] Last Admin: 10/18/22 20:10 Dose: 2.5 mg Trazodone HCl (Trazodone Hcl 50 Mg Tablet) 50 mg PO BEDTIME MRX1 PRN PRN Reason: Insomnia Last Admin: 10/16/22 22:09 Dose: 50 mg Allergies Allergies Allergy/AdvReac Type Severity Reaction Status Date / Time pollen extracts Allergy Unknown unknown Verified 04/21/22 14:56 latex Allergy Unknown Rash Uncoded 04/21/22 14:55 Assessment & Plan Assessment & Plan (1) Routine medical exam: Status: Acute Code(s): Z00.00 - Encounter for general adult medical examination without abnormal findings Plan 82 year old male with history hyperlipidemia, tubular adenoma colon (last colonoscopy 12/21), BPH, chronic normocytic anemia, osteoarthritis shoulders and hips s/p b/l hip arthroplasty, 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 Can use ibuprofen 600mg q6h prn as well if topical diclofenac unavailable. #Chronic left hip pain -per ED provider note at [facility], patient foot got stuck in a hole several months ago and fell onto the left hip. Subsequent imaging studies including x-ray of the hip/pelvis and CT of the pelvis are negative for fracture -Pain management as above -outpt follow up Pt refused physical extensive. Extensive review of prior note and records from [facility] conducted as noted above. Plan 1. Gather collateral information. His knees a me called and she provide more collateral information to the director social. Currently the patient is homeless and he is unable to take care of himself. We had to filed for Section 7 and 8 since the patient refused to sign the conditional voluntary. 2. Continue with Zyprexa at bedtime. 3. The occupational therapist will work on cognitive assessment today. Reason for continued inpatient stay Substantial Risk for: inability to function, rapid decompensation and med/psych decompensation Time Spent With Patient Time: Total time managing care of this patient today _20___ minutes.
[2022-10-19 18:00] VITALS: BP 112/64; PULSE 77; RESP 17; TEMP 36.2; O2SAT 96
[2022-10-19] MEDS: OLANZapine 2.5 MG TABLET PO (21:08)
[2022-10-20 08:09] VITALS: BP 115/73; PULSE 69; RESP 16; TEMP 36.4; O2SAT 96
[2022-10-20] MEDS: Acetaminophen 325 MG TABLET 650 MG PO (08:58)
--- NOTE | 2022-10-20 09:48 | P.PNPSI_ITS ---
Subjective Subjective Date of Service: 10/20/22 Reason For Visit: F31.9, F43.25 Subjective Notes: Conditional Voluntary Interim History: Pt slept through the night. Pt with no insight into extend of cognitive decline and need for supports in the community. Instead, pt reports that DMV and other governmental agencies are after him. Pt has to take jukebox route driver's test again due to severe cognitive decline, but pt states this is because DMV wants money. He does recall that reason for being here in the hospital is because he was knocking on door at motel, which pt denies doing. He denies SI/HI. No overt VH/AH. Some paranoia. Pt can be irritable at times, when reminded of rules on unit. Medication Compliance: Yes Review of Systems Review of Systems Yes Unobtainable due to mental status Mental Status Exam Mental Status Exam Narrative: Pt is alert but not oriented; behavior is friendly but intrusive and moments of agitation; patient is not in distress; dressed in casual attire and unkempt; mood is described as good and affect congruent; eye contact appropriate; Speech is normal rate, volume and prosody; intermittent psychomotor agitation present; thought process tangential; Thought content on chronic hip pain from past injury; or on various random topics; does not express any SI/HI. Unclear about AVH Patients insight and judgment impaired Diagnostics Vital Signs (24Hr): Vital Signs - 24 hr 10/19/22 18:00 10/20/22 08:09 Temperature 97.2 F 97.6 F Pulse Rate 77 69 Respiratory Rate 17 16 Blood Pressure 112/64 115/73 Pulse Oximetry 96 96 Oxygen Delivery Method Room Air Room Air BMI result Body Mass Index 25.5 Labs 10/13/22 06:26 Medications Medications Current Medications Acetaminophen (Acetaminophen 325 Mg Tablet) 650 mg PO Q6H PRN PRN Reason: Headache/Pain Mild Scale (1-3) Last Admin: 10/20/22 08:58 Dose: 650 mg Al Hydroxide/Mg Hydroxide (Magnesium Hydrox/Alum Hydrox 30 Ml Oral.Susp) 30 ml PO Q6H PRN PRN Reason: Heartburn/Nausea Hydroxyzine HCl (Hydroxyzine Hcl 25 Mg Tablet) 25 mg PO Q6H PRN PRN Reason: Anxiety Magnesium Hydroxide (Milk Of Magnesia 30 Ml Oral.Susp) 30 ml PO DAILY PRN PRN Reason: Constipation Olanzapine (Olanzapine 2.5 Mg Tablet) 2.5 mg PO TID PRN PRN Reason: agitation Olanzapine (Olanzapine 2.5 Mg Tablet) 2.5 mg PO BEDTIME CASEY Last Admin: 10/19/22 21:08 Dose: 2.5 mg Trazodone HCl (Trazodone Hcl 50 Mg Tablet) 50 mg PO BEDTIME MRX1 PRN PRN Reason: Insomnia Last Admin: 10/16/22 22:09 Dose: 50 mg Allergies Allergies Allergy/AdvReac Type Severity Reaction Status Date / Time pollen extracts Allergy Unknown unknown Verified 04/21/22 14:56 latex Allergy Unknown Rash Uncoded 04/21/22 14:55 Assessment & Plan Assessment & Plan (1) Bipolar disorder, now depressed: Status: Acute Code(s): F31.30 - Bipolar disorder, current episode depressed, mild or moderate severity, unspecified (2) Cognitive impairment: Status: Acute Code(s): R41.89 - Other symptoms and signs involving cognitive functions and awareness Plan 82 year old male with history hyperlipidemia, tubular adenoma colon (last co lonoscopy 12/21), BPH, chronic normocytic anemia, osteoarthritis shoulders and hips s/p b/l hip arthroplasty, chronic low back pain with lumbar stenosis, depression, hx rotator cuff tear, actinic keratosis, and atypical melanocytic hyperplasia admitted to geriatric psychiatry from [facility] with consult placed to medical hospitalist service for medical H&P. 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 Can use ibuprofen 600mg q6h prn as well if topical diclofenac unavailable. #Chronic left hip pain -per ED provider note at [facility], patient foot got stuck in a hole several months ago and fell onto the left hip. Subsequent imaging studies including x-ray of the hip/pelvis and CT of the pelvis are negative for fracture -Pain management as above -outpt follow up Pt refused physical extensive. Extensive review of prior note and records from [facility] conducted as noted above. Plan 1. Gather collateral information. His knees a me called and she provide more collateral information to the social welfare clerk. Currently the patient is homeless and he is unable to take care of himself. We had to filed for Section 7 and 8 since the patient refused to sign the conditional voluntary. 2. Continue with Zyprexa at bedtime. 3. The occupational therapist will work on cognitive assessment today. 10/20 continue tx. Reason for continued inpatient stay Substantial Risk for: inability to function Time Spent With Patient Time: Total time managing care of this patient today ____ minutes.
[2022-10-20 18:00] VITALS: BP 96/52; PULSE 70; RESP 18; TEMP 36.1; O2SAT 96
--- NOTE | 2022-10-20 18:46 | PC.NURSE ---
Patient asked for phone to get numbers out of it. This service writer gave him the phone and sat with him to get numbers out of it. Patient got agitated when this service writer asked for the phone and explained the rules of the unit. Patient put phone down pants refusing to give it back. Security was called and retrieved phone. Patient refused PO medication. IM olanzapine was ordered and was not needed, patient calmed down in his room. Nemo Rojas NP was notified
[2022-10-20] MEDS: OLANZapine 2.5 MG TABLET PO (20:23)
[2022-10-20] MEDS: traZODone HCL 50 MG TABLET PO (22:33)
[2022-10-21 09:22] VITALS: BP 115/67; PULSE 66; RESP 16; TEMP 36.7; O2SAT 96
[2022-10-21] MEDS: Acetaminophen 325 MG TABLET 650 MG PO (09:23)
--- NOTE | 2022-10-21 11:44 | P.PNPSI_ITS ---
Subjective Subjective Date of Service: 10/21/22 Reason For Visit: F31.9, F43.25 Subjective Notes: Conditional Voluntary Interim History: Pt combative last evening, not wanting to return phone back to RN and using it for other purposes other than collecting phone numbers despite being reminded of policy in terms of cell phone use on the unit. Pt put phone in underwear, police called and retrieve phone as pt increasingly more agitated refusing to give it back. He later took medications at night. This morning, pt reports doing well, hoping to be discharged soon but also does not know where he will go. He insists he can live in his car- despite license may not be renew due to severe cognitive impairments. Medication Compliance: Yes Review of Systems Review of Systems Yes Unobtainable due to mental status Mental Status Exam Mental Status Exam Narrative: Pt is alert but not oriented; behavior is friendly but intrusive and moments of agitation; patient is not in distress; dressed in casual attire and unkempt; mood is described as good and affect congruent; eye contact appropriate; Speech is normal rate, volume and prosody; intermittent psychomotor agitation present; thought process tangential; Thought content on chronic hip pain from past injury; or on various random topics; does not express any SI/HI. Unclear about AVH Patients insight and judgment impaired Diagnostics Vital Signs (24Hr): Vital Signs - 24 hr 10/20/22 18:00 10/21/22 09:22 Temperature 97.0 F 98.1 F Pulse Rate 70 66 Respiratory Rate 18 16 Blood Pressure 96/52 L 115/67 Pulse Oximetry 96 96 Oxygen Delivery Method Room Air Room Air BMI result Body Mass Index 25.5 Labs 10/13/22 06:26 Medications Medications Current Medications Acetaminophen (Acetaminophen 325 Mg Tablet) 650 mg PO Q6H PRN PRN Reason: Headache/Pain Mild Scale (1-3) Last Admin: 10/21/22 09:23 Dose: 650 mg Al Hydroxide/Mg Hydroxide (Magnesium Hydrox/Alum Hydrox 30 Ml Oral.Susp) 30 ml PO Q6H PRN PRN Reason: Heartburn/Nausea Hydroxyzine HCl (Hydroxyzine Hcl 25 Mg Tablet) 25 mg PO Q6H PRN PRN Reason: Anxiety Magnesium Hydroxide (Milk Of Magnesia 30 Ml Oral.Susp) 30 ml PO DAILY PRN PRN Reason: Constipation Olanzapine (Olanzapine 2.5 Mg Tablet) 2.5 mg PO TID PRN PRN Reason: agitation Olanzapine (Olanzapine 2.5 Mg Tablet) 2.5 mg PO BEDTIME CASEY Last Admin: 10/20/22 20:23 Dose: 2.5 mg Trazodone HCl (Trazodone Hcl 50 Mg Tablet) 50 mg PO BEDTIME PRN PRN Reason: Insomnia Last Admin: 10/20/22 22:33 Dose: 50 mg Allergies Allergies Allergy/AdvReac Type Severity Reaction Status Date / Time pollen extracts Allergy Unknown unknown Verified 04/21/22 14:56 latex Allergy Unknown Rash Uncoded 04/21/22 14:55 Assessment & Plan Assessment & Plan (1) Bipolar disorder, now depressed: Status: Acute Code(s): F31.30 - Bipolar disorder, current episode depressed, mild or moderate severity, unspecified (2) Cognitive impairment: Status: Acute Code(s): R41.89 - Other symptoms and signs involving cognitive functions and awareness Plan 82 year old male with history hyperlipidemia, tubular adenoma colon (last colonoscopy 12/21), BPH, chronic normocytic anemia, osteoarthritis shoulders and hips s/p b/l hip arthroplasty, chronic low back pain with lumbar stenosis, depression, hx rotator cuff tear, actinic keratosis, and atypical melanocytic hyperplasia admitted to geriatric psychiatry from [facility] with consult placed to medical hospitalist service for medical H&P. 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 Can use ibuprofen 600mg q6h prn as well if topical diclofenac unavailable. #Chronic left hip pain -per ED provider note at [facility], patient foot got stuck in a hole several months ago and fell onto the left hip. Subsequent imaging studies including x-ray of the hip/pelvis and CT of the pelvis are negative for fracture -Pain management as above -outpt follow up Pt refused physical extensive. Extensive review of prior note and records from [facility] conducted as noted above. Plan 1. Gather collateral information. His knees a me called and she provide more collateral information to the social media intern. Currently the patient is homeless and he is unable to take care of himself. We had to filed for Section 7 and 8 since the patient refused to sign the conditional voluntary. 2. Continue with Zyprexa at bedtime. 3. The occupational therapist will work on cognitive assessment today. 10/20 continue tx. 10/21 continue tx. Reason for continued inpatient stay Substantial Risk for: inability to function Time Spent With Patient Time: Total time managing care of this patient today ____ minutes.
[2022-10-21 18:00] VITALS: BP 103/62; PULSE 76; RESP 18; TEMP 36.1; O2SAT 95
[2022-10-21] MEDS: OLANZapine 2.5 MG TABLET PO (20:19)
[2022-10-22 07:55] VITALS: BP 145/71; PULSE 61; RESP 18; TEMP 36.8; O2SAT 97
[2022-10-22] MEDS: Acetaminophen 325 MG TABLET 650 MG PO (09:03)
--- NOTE | 2022-10-22 09:30 | P.PNPSI_ITS ---
Subjective Subjective Date of Service: 10/22/22 Reason For Visit: F31.9, F43.25 Subjective Notes: Section 7 and Section 8 Interim History: The nursing staff reported the patient had been common cooperative, talkative watching TV, he slept well fully compliant with treatment. The staff has reported that his college or university faculty member most likely will ask for an independent medical examination. The hospice social worker reported the house that he was renting a room has been condemned and he does not have a place to go at this point. On interview the patient wants to be discharged explain him his living situation but he still wants to leave. He is unable to realized that he is technically homeless and there is no safe discharge plan. Mental Status Exam Mental Status Exam Patient Appearance: Well Grooomed and Appropriate Patient Orientation: Person and Situation Level of Consciousness: Awake and Appropriate Patient Behavior: Guarded and Passive Mood Description: Withdrawn Affect Description: Constricted Patient Cognition Impaired: Yes Ability to Follow Directions: Good Speech Pattern: Clear Hallucinations: None Delusions: Not Present Thought Process: Linear Thought Content: positive for [place] and positive for Perseveration Judgement: Poor Diagnostics Vital Signs (24Hr): Vital Signs - 24 hr 10/21/22 18:00 10/22/22 07:55 Temperature 96.9 F 98.3 F Pulse Rate 76 61 Respiratory Rate 18 18 Blood Pressure 103/62 145/71 H Pulse Oximetry 95 97 Oxygen Delivery Method Room Air Room Air BMI result Body Mass Index 25.5 Labs 10/13/22 06:26 Medications Medications Current Medications Acetaminophen (Acetaminophen 325 Mg Tablet) 650 mg PO Q6H PRN PRN Reason: Headache/Pain Mild Scale (1-3) Last Admin: 10/22/22 09:03 Dose: 325 mg Al Hydroxide/Mg Hydroxide (Magnesium Hydrox/Alum Hydrox 30 Ml Oral.Susp) 30 ml PO Q6H PRN PRN Reason: Heartburn/Nausea Hydroxyzine HCl (Hydroxyzine Hcl 25 Mg Tablet) 25 mg PO Q6H PRN PRN Reason: Anxiety Magnesium Hydroxide (Milk Of Magnesia 30 Ml Oral.Susp) 30 ml PO DAILY PRN PRN Reason: Constipation Olanzapine (Olanzapine 2.5 Mg Tablet) 2.5 mg PO TID PRN PRN Reason: agitation Olanzapine (Olanzapine 2.5 Mg Tablet) 2.5 mg PO BEDTIME CASEY Last Admin: 10/21/22 20:19 Dose: 2.5 mg Trazodone HCl (Trazodone Hcl 50 Mg Tablet) 50 mg PO BEDTIME PRN PRN Reason: Insomnia Last Admin: 10/20/22 22:33 Dose: 50 mg Allergies Allergies Allergy/AdvReac Type Severity Reaction Status Date / Time pollen extracts Allergy Unknown unknown Verified 04/21/22 14:56 latex Allergy Unknown Rash Uncoded 04/21/22 14:55 Assessment & Plan Assessment & Plan (1) Bipolar disorder, now depressed: Status: Acute Code(s): F31.30 - Bipolar disorder, current episode depressed, mild or moderate severity, unspecified (2) Cognitive impairment: Status: Acute Code(s): R41.89 - Other symptoms and signs involving cognitive functions and awareness Plan 82 year old male with history hyperlipidemia, tubular adenoma colon (last colonoscopy 12/21), BPH, chronic normocytic anemia, osteoarthritis shoulders and hips s/p b/l hip arthroplasty, chronic low back pain with lumbar stenosis, depression, hx rotator cuff tear, actinic keratosis, and atypical melanocytic hyperplasia admitted to geriatric psychiatry from [facility] with consult placed to medical hospitalist service for medical H&P. 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 Can use ibuprofen 600mg q6h prn as well if topical diclofenac unavailable. #Chronic left hip pain -per ED provider note at [facility], patient foot got stuck in a hole several months ago and fell onto the left hip. Subsequent imaging studies including x-ray of the hip/pelvis and CT of the pelvis are negative for fracture -Pain management as above -outpt follow up Pt refused physical extensive. Extensive review of prior note and records from [facility] conducted as noted above. Plan 1. Gather collateral information. His knees a me called and she provide more collateral information to the hospice social worker. Currently the patient is homeless and he is unable to take care of himself. We had to filed for Section 7 and 8 since the patient refused to sign the conditional voluntary. 2. Continue with Zyprexa at bedtime. 3. The occupational therapist will work on cognitive assessment. Reason for continued inpatient stay Substantial Risk for: inability to function, rapid decompensation and med/psych decompensation Time Spent With Patient Time: Total time managing care of this patient today _20___ minutes.
[2022-10-22 19:30] VITALS: BP 106/58; PULSE 70; RESP 18; TEMP 36.7; O2SAT 96
[2022-10-22] MEDS: OLANZapine 2.5 MG TABLET PO (20:36)
[2022-10-22] MEDS: traZODone HCL 50 MG TABLET PO (20:36)
[2022-10-23 08:26] VITALS: BP 113/65; PULSE 64; RESP 18; TEMP 36; O2SAT 96
[2022-10-23] MEDS: Acetaminophen 325 MG TABLET 650 MG PO ×2 (08:34→21:29)
--- NOTE | 2022-10-23 09:19 | P.PNPSI_ITS ---
Subjective Subjective Date of Service: 10/23/22 Reason For Visit: F31.9, F43.25 Subjective Notes: Section 7 and Section 8 Interim History: The nursing staff reported the patient had been med compliant, he took trazodone twice last night due to insomnia. The staff reported the cord had been continue to November 13. The social services counselor started placement options but most likely, we will have to go for guardianship and placement. The occupational therapist did an Hebert test and now he is 3.2, he used to be 3.6 on his last admission a few months ago. At this point, he is unable to live independently with this assessment. Today we discussed at length the disposition of this patient. He seems demented but he has some social skills. Most likely will have to go to guardianship sings his oppositional of going 20 facility and he does not have insight into his limitations. On interview, the patient was perseverative on leaving, he has very limited social support and he cannot process realistic discharge planning. He couldn't remember what we discussed yesterday and unable to process why he is here. Mental Status Exam Mental Status Exam Patient Appearance: Well Grooomed and Appropriate Patient Orientation: Person and Situation Level of Consciousness: Awake and Appropriate Patient Behavior: Appropriate and Cooperative Mood Description: Calm and Apprehensive Affect Description: Withdrawn Patient Cognition Impaired: Yes Ability to Follow Directions: Good Speech Pattern: Clear Hallucinations: None Delusions: Not Present Thought Process: Distracted and Evasive Thought Content: positive for [place], positive for Perseveration and positive for [place] of Content Judgement: Poor Diagnostics Vital Signs (24Hr): Vital Signs - 24 hr 10/22/22 19:30 10/23/22 08:26 Temperature 98.1 F 96.8 F Pulse Rate 70 64 Respiratory Rate 18 18 Blood Pressure 106/58 L 113/65 Pulse Oximetry 96 96 Oxygen Delivery Method Room Air Room Air BMI result Body Mass Index 25.5 Labs 10/13/22 06:26 Medications Medications Current Medications Acetaminophen (Acetaminophen 325 Mg Tablet) 650 mg PO Q6H PRN PRN Reason: Headache/Pain Mild Scale (1-3) Last Admin: 10/23/22 08:34 Dose: 650 mg Al Hydroxide/Mg Hydroxide (Magnesium Hydrox/Alum Hydrox 30 Ml Oral.Susp) 30 ml PO Q6H PRN PRN Reason: Heartburn/Nausea Hydroxyzine HCl (Hydroxyzine Hcl 25 Mg Tablet) 25 mg PO Q6H PRN PRN Reason: Anxiety Magnesium Hydroxide (Milk Of Magnesia 30 Ml Oral.Susp) 30 ml PO DAILY PRN PRN Reason: Constipation Olanzapine (Olanzapine 2.5 Mg Tablet) 2.5 mg PO TID PRN PRN Reason: agitation Olanzapine (Olanzapine 2.5 Mg Tablet) 2.5 mg PO BEDTIME CASEY Last Admin: 10/22/22 20:36 Dose: 2.5 mg Trazodone HCl (Trazodone Hcl 50 Mg Tablet) 50 mg PO BEDTIME PRN PRN Reason: Insomnia Last Admin: 10/22/22 20:36 Dose: 50 mg Allergies Allergies Allergy/AdvReac Type Severity Reaction Status Date / Time pollen extracts Allergy Unknown unknown Verified 04/21/22 14:56 latex Allergy Unknown Rash Uncoded 04/21/22 14:55 Assessment & Plan Assessment & Plan (1) Bipolar disorder, now depressed: Status: Acute Code(s): F31.30 - Bipolar disorder, current episode depressed, mild or moderate severity, unspecified (2) Cognitive impairment: Status: Acute Code(s): R41.89 - Other symptoms and signs involving cognitive functions and awareness Plan 82 year old male with history hyperlipidemia, tubular adenoma colon (last colonoscopy 12/21), BPH, chronic normocytic anemia, osteoarthritis shoulders and hips s/p b/l hip arthroplasty, chronic low back pain with lumbar stenosis, depression, hx rotator cuff tear, actinic keratosis, and atypical melanocytic hyperplasia admitted to geriatric psychiatry from [facility] with consult placed to medical hospitalist service for medical H&P. 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 Can use ibuprofen 600mg q6h prn as well if topical diclofenac unavailable. #Chronic left hip pain -per ED provider note at [facility], patient foot got stuck in a hole several months ago and fell onto the left hip. Subsequent imaging studies including x-ray of the hip/pelvis and CT of the pelvis are negative for fracture -Pain management as above -outpt follow up Pt refused physical extensive. Extensive review of prior note and records from [facility] conducted as noted above. Plan 1. Gather collateral information. His niece called and she provide more collateral information to the social services counselor. Currently the patient is homeless and he is unable to take care of himself. We had to filed for Section 7 and 8 since the patient refused to sign the conditional voluntary. 2. Continue with Zyprexa at bedtime. 3. The occupational therapist did an Hebert test and he scored 3.2, he used to be on 3.6 a few months ago. That means that he will need 24 hour care. Reason for continued inpatient stay Substantial Risk for: inability to function, rapid decompensation and med/psych decompensation Time Spent With Patient Time: Total time managing care of this patient today _20___ minutes.
[2022-10-23 18:00] VITALS: BP 111/62; PULSE 72; RESP 19; TEMP 36.1; O2SAT 95
[2022-10-23] MEDS: OLANZapine 2.5 MG TABLET PO (20:11)
[2022-10-23] MEDS: traZODone HCL 50 MG TABLET PO (21:28)
[2022-10-24 08:29] VITALS: BP 109/61; PULSE 75; RESP 18; TEMP 36; O2SAT 97
[2022-10-24] MEDS: Acetaminophen 325 MG TABLET 650 MG PO ×2 (09:08→20:22)
--- NOTE | 2022-10-24 10:08 | P.PNPSI_ITS ---
Subjective Subjective Date of Service: 10/24/22 Reason For Visit: F31.9, F43.25 Subjective Notes: Section 7 and Section 8 Interim History: The nursing staff reported the patient had been pleasant, compliant with medications, he had a shower yesterday. He denies suicidal ideation. The executive secretary social welfare had been contacting his knees and she is going back to [place] soon. There is no social support. They are applying for rest homes and other facilities for discharge planning. On interview the patient remains perseverative of living, we file a Section 7 and 8. On rounds we discussed the possibility of filing for guardianship since he has dementia and his Hebert test has dropped from 3.8 to 3.2 since his last admission. Mental Status Exam Mental Status Exam Patient Appearance: Appropriate Patient Orientation: Person and Situation Level of Consciousness: Awake and Appropriate Patient Behavior: Guarded Mood Description: Apprehensive Affect Description: Labile Patient Cognition Impaired: Yes Ability to Follow Directions: Good Speech Pattern: Clear Hallucinations: None Delusions: Not Present Thought Process: Distracted and Confusion Thought Content: positive for [place] and positive for Circumstantial Judgement: Poor Diagnostics Vital Signs (24Hr): Vital Signs - 24 hr 10/23/22 18:00 10/24/22 08:29 Temperature 96.9 F 96.8 F Pulse Rate 72 75 Respiratory Rate 19 18 Blood Pressure 111/62 109/61 Pulse Oximetry 95 97 Oxygen Delivery Method Room Air Room Air BMI result Body Mass Index 25.5 Labs 10/13/22 06:26 Medications Medications Current Medications Acetaminophen (Acetaminophen 325 Mg Tablet) 650 mg PO Q6H PRN PRN Reason: Headache/Pain Mild Scale (1-3) Last Admin: 10/24/22 09:08 Dose: 650 mg Al Hydroxide/Mg Hydroxide (Magnesium Hydrox/Alum Hydrox 30 Ml Oral.Susp) 30 ml PO Q6H PRN PRN Reason: Heartburn/Nausea Hydroxyzine HCl (Hydroxyzine Hcl 25 Mg Tablet) 25 mg PO Q6H PRN PRN Reason: Anxiety Magnesium Hydroxide (Milk Of Magnesia 30 Ml Oral.Susp) 30 ml PO DAILY PRN PRN Reason: Constipation Olanzapine (Olanzapine 2.5 Mg Tablet) 2.5 mg PO TID PRN PRN Reason: agitation Olanzapine (Olanzapine 2.5 Mg Tablet) 2.5 mg PO BEDTIME CASEY Last Admin: 10/23/22 20:11 Dose: 2.5 mg Trazodone HCl (Trazodone Hcl 50 Mg Tablet) 50 mg PO BEDTIME PRN PRN Reason: Insomnia Last Admin: 10/23/22 21:28 Dose: 50 mg Allergies Allergies Allergy/AdvReac Type Severity Reaction Status Date / Time pollen extracts Allergy Unknown unknown Verified 04/21/22 14:56 latex Allergy Unknown Rash Uncoded 04/21/22 14:55 Assessment & Plan Assessment & Plan (1) Bipolar disorder, now depressed: Status: Acute Code(s): F31.30 - Bipolar disorder, current episode depressed, mild or moderate severity, unspecified (2) Cognitive impairment: Status: Acute Code(s): R41.89 - Other symptoms and signs involving cognitive functions and awareness Plan 82 year old male with history hyperlipidemia, tubular adenoma colon (last colonoscopy 12/21), BPH, chronic normocytic anemia, osteoarthritis shoulders and hips s/p b/l hip arthroplasty, chronic low back pain with lumbar stenosis, depression, hx rotator cuff tear, actinic keratosis, and atypical melanocytic hyperplasia admitted to geriatric psychiatry from [facility] with consult placed to medical hospitalist service for medical H&P. 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 Can use ibuprofen 600mg q6h prn as well if topical diclofenac unavailable. #Chronic left hip pain -per ED provider note at [facility], patient foot got stuck in a hole several months ago and fell onto the left hip. Subsequent imaging studies including x-ray of the hip/pelvis and CT of the pelvis are negative for fracture -Pain management as above -outpt follow up Pt refused physical extensive. Extensive review of prior note and records from [facility] conducted as noted above. Plan 1. Gather collateral information. His niece called and she provide more collateral information to the executive secretary social welfare. Currently the patient is homeless and he is unable to take care of himself. We had to filed for Section 7 and 8 since the patient refused to sign the conditional voluntary. 2. Continue with Zyprexa at bedtime. 3. The occupational therapist did an Hebert test and he scored 3.2, he used to be on 3.6 a few months ago. That means that he will need 24 hour care. We are going to start Aricept to target dementia. Reason for continued inpatient stay Substantial Risk for: inability to function, rapid decompensation and med/psych decompensation Time Spent With Patient Time: Total time managing care of this patient today __20__ minutes.
[2022-10-24 18:00] VITALS: BP 101/66; PULSE 82; RESP 18; TEMP 36.1; O2SAT 97
[2022-10-24] MEDS: OLANZapine 2.5 MG TABLET PO (20:22)
[2022-10-24] MEDS: Donepezil HCl 5 MG TABLET PO (20:22)
[2022-10-24] MEDS: traZODone HCL 50 MG TABLET PO (20:23)
[2022-10-25 07:00] VITALS: BMI 26.2
[2022-10-25 08:00] VITALS: BP 133/74; PULSE 70; RESP 18; TEMP 36.8; O2SAT 97
[2022-10-25] MEDS: Acetaminophen 325 MG TABLET 650 MG PO ×2 (09:01→20:49)
--- NOTE | 2022-10-25 10:51 | HO.PSYCHPN ---
Subjective Subjective Date of Service: 10/25/22 Reason For Visit: F31.9, F43.25 Subjective Notes: Section 7 and Section 8 Interim History: The nursing staff reported the patient slept 8 hours, no changes in his mental status stating that they still all his money and he cannot live. The social welfare research worker contact his knees and we will apply for guardianship since the patient is cognitively impaired unable to take care of himself in the community. Her knees is in agreement of this plan and she accepted to be the guardian. On interview the patient remains cognitively impaired unable to remember the conversation that we have yesterday and he wants to be discharged. His Section 7 and had been postponed for 2 weeks more. Mental Status Exam Mental Status Exam Patient Appearance: Appropriate Patient Orientation: Person and Situation Level of Consciousness: Awake Patient Behavior: Guarded and Passive Mood Description: Calm Affect Description: Constricted Patient Cognition Impaired: Yes Ability to Follow Directions: Good Speech Pattern: Clear Hallucinations: None Delusions: Not Present Thought Process: Distracted and Evasive Thought Content: positive for [place], positive for Perseveration and positive for Thought Blocking Judgement: Poor Diagnostics Vital Signs (24Hr): Vital Signs - 24 hr 10/24/22 18:00 10/25/22 08:00 Temperature 97 F 98.2 F Pulse Rate 82 70 Respiratory Rate 18 18 Blood Pressure 101/66 133/74 Pulse Oximetry 97 97 Oxygen Delivery Method Room Air Room Air BMI result Body Mass Index 26.2 Labs 10/13/22 06:26 Medications Medications Current Medications Acetaminophen (Acetaminophen 325 Mg Tablet) 650 mg PO Q6H PRN PRN Reason: Headache/Pain Mild Scale (1-3) Last Admin: 10/25/22 09:01 Dose: 650 mg Al Hydroxide/Mg Hydroxide (Magnesium Hydrox/Alum Hydrox 30 Ml Oral.Susp) 30 ml PO Q6H PRN PRN Reason: Heartburn/Nausea Donepezil HCl (Donepezil Hcl 5 Mg Tablet) 5 mg PO BEDTIME CASEY Last Admin: 10/24/22 20:22 Dose: 5 mg Hydroxyzine HCl (Hydroxyzine Hcl 25 Mg Tablet) 25 mg PO Q6H PRN PRN Reason: Anxiety Magnesium Hydroxide (Milk Of Magnesia 30 Ml Oral.Susp) 30 ml PO DAILY PRN PRN Reason: Constipation Olanzapine (Olanzapine 2.5 Mg Tablet) 2.5 mg PO TID PRN PRN Reason: agitation Olanzapine (Olanzapine 2.5 Mg Tablet) 2.5 mg PO BEDTIME CASEY Last Admin: 10/24/22 20:22 Dose: 2.5 mg Trazodone HCl (Trazodone Hcl 50 Mg Tablet) 50 mg PO BEDTIME PRN PRN Reason: Insomnia Last Admin: 10/24/22 20:23 Dose: 50 mg Allergies Allergies Allergy/AdvReac Type Severity Reaction Status Date / Time pollen extracts Allergy Unknown unknown Verified 04/21/22 14:56 latex Allergy Unknown Rash Uncoded 04/21/22 14:55 Assessment & Plan Assessment & Plan (1) Bipolar disorder, now depressed: Status: Acute Code(s): F31.30 - Bipolar disorder, current episode depressed, mild or moderate severity, unspecified (2) Cognitive impairment: Status: Acute Code(s): R41.89 - Other symptoms and signs involving cognitive functions and awareness Plan 82 year old male with history hyperlipidemia, tubular adenoma colon (last colonoscopy 12/21), BPH, chronic normocytic anemia, osteoarthritis shoulders and hips s/p b/l hip arthroplasty, chronic low back pain with lumbar stenosis, depression, hx rotator cuff tear, actinic keratosis, and atypical melanocytic hyperplasia admitted to geriatric psychiatry from [facility] with consult placed to medical hospitalist service for medical H&P. 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 Can use ibuprofen 600mg q6h prn as well if topical diclofenac unavailable. #Chronic left hip pain -per ED provider note at [facility], patient foot got stuck in a hole several months ago and fell onto the left hip. Subsequent imaging studies including x-ray of the hip/pelvis and CT of the pelvis are negative for fracture -Pain management as above -outpt follow up Pt refused physical extensive. Extensive review of prior note and records from [facility] conducted as noted above. Plan 1. Gather collateral information. His niece called and she provide more collateral information to the social welfare research worker. Currently the patient is homeless and he is unable to take care of himself. We had to filed for Section 7 and 8 since the patient refused to sign the conditional voluntary. 2. Continue with Zyprexa at bedtime. 3. The occupational therapist did an Hebert test and he scored 3.2, he used to be on 3.6 a few months ago. That means that he will need 24 hour care. We are going to start Aricept to target dementia. Reason for continued inpatient stay Substantial Risk for: inability to function, rapid decompensation and med/psych decompensation Time Spent With Patient Time: Total time managing care of this patient today __20__ minutes.
[2022-10-25 18:00] VITALS: BP 118/73; PULSE 69; RESP 17; O2SAT 98
[2022-10-25] MEDS: OLANZapine 2.5 MG TABLET PO (20:26)
[2022-10-25] MEDS: Donepezil HCl 5 MG TABLET PO (20:26)
[2022-10-25] MEDS: traZODone HCL 50 MG TABLET PO (20:32)
--- NOTE | 2022-10-26 10:49 | P.PNPSI_ITS ---
Subjective Subjective Date of Service: 10/26/22 Reason For Visit: F31.9, F43.25 Subjective Notes: Section 7 and Section 8 Interim History: The nursing staff reported the patient has been perseverative, he took trazodone last night and he slept at midnight. He remains constantly asking the same questions unable to remember conversations before. On interview he requested for discharged explain him that he needs to have a place for discharge. We decided to increase the Zyprexa to 5 mg p.o. q.h.s. and increase Aricept up to 10 mg p.o. q.h.s. to target dementia. Mental Status Exam Mental Status Exam Patient Appearance: Appropriate Patient Orientation: Person and Situation Level of Consciousness: Awake and Appropriate Patient Behavior: Guarded and Passive Mood Description: Withdrawn Affect Description: Constricted Patient Cognition Impaired: Yes Ability to Follow Directions: Good Speech Pattern: Clear Hallucinations: None Delusions: Not Present Thought Process: Illogical and Rumination Thought Content: positive for [place] and positive for Perseveration Judgement: Poor Diagnostics Vital Signs (24Hr): Vital Signs - 24 hr 10/25/22 18:00 Pulse Rate 69 Respiratory Rate 17 Blood Pressure 118/73 Pulse Oximetry 98 Oxygen Delivery Method Room Air BMI result Body Mass Index 26.2 Labs 10/13/22 06:26 Medications Medications Current Medications Acetaminophen (Acetaminophen 325 Mg Tablet) 650 mg PO Q6H PRN PRN Reason: Headache/Pain Mild Scale (1-3) Last Admin: 10/25/22 20:49 Dose: 650 mg Al Hydroxide/Mg Hydroxide (Magnesium Hydrox/Alum Hydrox 30 Ml Oral.Susp) 30 ml PO Q6H PRN PRN Reason: Heartburn/Nausea Donepezil HCl (Donepezil Hcl 10 Mg Tablet) 10 mg PO BEDTIME CASEY Hydroxyzine HCl (Hydroxyzine Hcl 25 Mg Tablet) 25 mg PO Q6H PRN PRN Reason: Anxiety Magnesium Hydroxide (Milk Of Magnesia 30 Ml Oral.Susp) 30 ml PO DAILY PRN PRN Reason: Constipation Olanzapine (Olanzapine 2.5 Mg Tablet) 2.5 mg PO TID PRN PRN Reason: agitation Olanzapine (Olanzapine 5 Mg Tablet) 5 mg PO BEDTIME CASEY Trazodone HCl (Trazodone Hcl 50 Mg Tablet) 50 mg PO BEDTIME PRN PRN Reason: Insomnia Last Admin: 10/25/22 20:32 Dose: 50 mg Allergies Allergies Allergy/AdvReac Type Severity Reaction Status Date / Time pollen extracts Allergy Unknown unknown Verified 04/21/22 14:56 latex Allergy Unknown Rash Uncoded 04/21/22 14:55 Assessment & Plan Assessment & Plan (1) Bipolar disorder, now depressed: Status: Acute Code(s): F31.30 - Bipolar disorder, current episode depressed, mild or moderate severity, unspecified (2) Cognitive impairment: Status: Acute Code(s): R41.89 - Other symptoms and signs involving cognitive functions and awareness Plan 82 year old male with history hyperlipidemia, tubular adenoma colon (last colon oscopy 12/21), BPH, chronic normocytic anemia, osteoarthritis shoulders and hips s/p b/l hip arthroplasty, chronic low back pain with lumbar stenosis, depression, hx rotator cuff tear, actinic keratosis, and atypical melanocytic hyperplasia admitted to geriatric psychiatry from [facility] with consult placed to medical hospitalist service for medical H&P. 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 Can use ibuprofen 600mg q6h prn as well if topical diclofenac unavailable. #Chronic left hip pain -per ED provider note at [facility], patient foot got stuck in a hole several months ago and fell onto the left hip. Subsequent imaging studies including x-ray of the hip/pelvis and CT of the pelvis are negative for fracture -Pain management as above -outpt follow up Pt refused physical extensive. Extensive review of prior note and records from [facility] conducted as noted above. Plan 1. Gather collateral information. His niece called and she provide more col lateral information to the social welfare administrator. Currently the patient is homeless and he is unable to take care of himself. We had to filed for Section 7 and 8 since the patient refused to sign the conditional voluntary. 2. Continue with Zyprexa at bedtime. 3. The occupational therapist did an Hebert test and he scored 3.2, he used to be on 3.6 a few months ago. That means that he will need 24 hour care. We are going to start Aricept to target dementia. Reason for continued inpatient stay Substantial Risk for: inability to function, rapid decompensation and med/psych decompensation Time Spent With Patient Time: Total time managing care of this patient today __20__ minutes.
[2022-10-26 18:00] VITALS: BP 106/64; PULSE 70; RESP 18; TEMP 36.4; O2SAT 98
[2022-10-26] MEDS: OLANZapine 5 MG TABLET PO (20:14)
[2022-10-26] MEDS: Donepezil HCl 10 MG TABLET PO (20:14)
--- NOTE | 2022-10-27 07:41 | HO.PSYCHPN ---
Subjective Subjective Date of Service: 10/27/22 Reason For Visit: F31.9, F43.25 Subjective Notes: Section 7 and Section 8 Interim History: The nursing staff reported the patient had been intrusive with other peers, advising him how to leave the hospital. He has been compliant with medications and he slept 8 hours. On interview he remains perseverative on wanting to leave with no insight into his homelessness. No safe discharge at this moment. Mental Status Exam Mental Status Exam Patient Appearance: Appropriate Patient Orientation: Person, Place and Situation Level of Consciousness: Awake Patient Behavior: Guarded and Passive Mood Description: Apprehensive Affect Description: Labile Patient Cognition Impaired: Yes Ability to Follow Directions: Good Hallucinations: None Delusions: Not Present Thought Process: Illogical and Distracted Thought Content: positive for [place] and positive for Perseveration Judgement: Poor Diagnostics Vital Signs (24Hr): Vital Signs - 24 hr 10/26/22 18:00 Temperature 97.5 F Pulse Rate 70 Respiratory Rate 18 Blood Pressure 106/64 Pulse Oximetry 98 Oxygen Delivery Method Room Air BMI result Body Mass Index 26.2 Labs 10/13/22 06:26 Medications Medications Current Medications Acetaminophen (Acetaminophen 325 Mg Tablet) 650 mg PO Q6H PRN PRN Reason: Headache/Pain Mild Scale (1-3) Last Admin: 10/25/22 20:49 Dose: 650 mg Al Hydroxide/Mg Hydroxide (Magnesium Hydrox/Alum Hydrox 30 Ml Oral.Susp) 30 ml PO Q6H PRN PRN Reason: Heartburn/Nausea Donepezil HCl (Donepezil Hcl 10 Mg Tablet) 10 mg PO BEDTIME CASEY Last Admin: 10/26/22 20:14 Dose: 10 mg Hydroxyzine HCl (Hydroxyzine Hcl 25 Mg Tablet) 25 mg PO Q6H PRN PRN Reason: Anxiety Magnesium Hydroxide (Milk Of Magnesia 30 Ml Oral.Susp) 30 ml PO DAILY PRN PRN Reason: Constipation Olanzapine (Olanzapine 2.5 Mg Tablet) 2.5 mg PO TID PRN PRN Reason: agitation Olanzapine (Olanzapine 5 Mg Tablet) 5 mg PO BEDTIME CASEY Last Admin: 10/26/22 20:14 Dose: 5 mg Trazodone HCl (Trazodone Hcl 50 Mg Tablet) 50 mg PO BEDTIME PRN PRN Reason: Insomnia Last Admin: 10/25/22 20:32 Dose: 50 mg Allergies Allergies Allergy/AdvReac Type Severity Reaction Status Date / Time pollen extracts Allergy Unknown unknown Verified 04/21/22 14:56 latex Allergy Unknown Rash Uncoded 04/21/22 14:55 Assessment & Plan Assessment & Plan (1) Bipolar disorder, now depressed: Status: Acute Code(s): F31.30 - Bipolar disorder, current episode depressed, mild or moderate severity, unspecified (2) Cognitive impairment: Status: Acute Code(s): R41.89 - Other symptoms and signs involving cognitive functions and awareness Plan 82 year old male with history hyperlipidemia, tubular adenoma colon (last colonoscopy 12/21), BPH, chronic normocytic anemia, osteoarthritis shoulders and hips s/p b/l hip arthroplasty, chronic low back pain with lumbar stenosis, depression, hx rotator cuff tear, actinic keratosis, and atypical melanocytic hyperplasia admitted to geriatric psychiatry from [facility] with consult placed to medical hospitalist service for medical H&P. 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 Can use ibuprofen 600mg q6h prn as well if topical diclofenac unavailable. #Chronic left hip pain -per ED provider note at [facility], patient foot got stuck in a hole several months ago and fell onto the left hip. Subsequent imaging studies including x-ray of the hip/pelvis and CT of the pelvis are negative for fracture -Pain management as above -outpt follow up Pt refused physical extensive. Extensive review of prior note and records from [facility] conducted as noted above. Plan 1. Gather collateral information. His niece called and she provide more collateral information to the web content & social media manager. Currently the patient is homeless and he is unable to take care of himself. We had to filed for Section 7 and 8 since the patient refused to sign the conditional voluntary. 2. Continue with Zyprexa at bedtime. We are increasing Zyprexa up to 10 mg p.o. q.h.s. in October 27 since the patient had been more intrusive and disinhibited. 3. The occupational therapist did an Hebert test and he scored 3.2, he used to be on 3.6 a few months ago. That means that he will need 24 hour care. We are going to start Aricept to target dementia. Reason for continued inpatient stay Substantial Risk for: inability to function, rapid decompensation and med/psych decompensation Time Spent With Patient Time: Total time managing care of this patient today __20__ minutes.
[2022-10-27 08:36] VITALS: BP 130/69; PULSE 69; RESP 18; TEMP 36.2; O2SAT 97
[2022-10-27] MEDS: Acetaminophen 325 MG TABLET 650 MG PO (08:40)
--- NOTE | 2022-10-27 11:12 | PC.NURSE ---
Esvin is very intrusive and was standing at the nurse's station and he was redirected several times to step away as another RN was on the phone speaking about another patient. He shouted at this bid writer Make me move! Get security up here and I'll move when they are here! He got extremely close to this bid writer and put his face close to this bid writer's. He had his fists clenched and an intense stare. He was asked to please back up to which he did and replied Go do something and make yourself useful. MD Ahmadi notified.
[2022-10-27 18:00] VITALS: BP 133/69; PULSE 66; RESP 18; TEMP 36.4; O2SAT 98
[2022-10-27] MEDS: OLANZapine 10 MG TABLET PO (20:07)
[2022-10-27] MEDS: Donepezil HCl 10 MG TABLET PO (20:07)
[2022-10-27] MEDS: traZODone HCL 50 MG TABLET PO (20:08)
[2022-10-28 08:00] VITALS: BP 154/97; PULSE 62; RESP 18; TEMP 36.4; O2SAT 97
--- NOTE | 2022-10-28 08:11 | HO.PSYCHPN ---
Subjective Subjective Date of Service: 10/28/22 Reason For Visit: F31.9, F43.25 Subjective Notes: Section 7 and Section 8 Interim History: The nursing staff reported the patient had been pleasant cooperative very talkative he walked at 02:00 o'clock in the morning went back to bed. On interview the patient remains with poor short-term memory he cannot remember the conversation that we have had for the last week. Mental Status Exam Mental Status Exam Patient Appearance: Appropriate Patient Orientation: Person and Situation Level of Consciousness: Awake and Appropriate Patient Behavior: Guarded and Suspicious Mood Description: Withdrawn Affect Description: Constricted Patient Cognition Impaired: Yes Ability to Follow Directions: Good Speech Pattern: Clear Hallucinations: None Delusions: Not Present Thought Process: Incoherent and Distracted Thought Content: positive for [place], positive for [place] of Content and positive for Thought Blocking Judgement: Poor Diagnostics Vital Signs (24Hr): Vital Signs - 24 hr 10/27/22 08:36 10/27/22 18:00 Temperature 97.1 F 97.5 F Pulse Rate 69 66 Respiratory Rate 18 18 Blood Pressure 130/69 133/69 Pulse Oximetry 97 98 Oxygen Delivery Method Room Air Room Air BMI result Body Mass Index 26.2 Labs 10/13/22 06:26 Medications Medications Current Medications Acetaminophen (Acetaminophen 325 Mg Tablet) 650 mg PO Q6H PRN PRN Reason: Headache/Pain Mild Scale (1-3) Last Admin: 10/27/22 08:40 Dose: 650 mg Al Hydroxide/Mg Hydroxide (Magnesium Hydrox/Alum Hydrox 30 Ml Oral.Susp) 30 ml PO Q6H PRN PRN Reason: Heartburn/Nausea Donepezil HCl (Donepezil Hcl 10 Mg Tablet) 10 mg PO BEDTIME CASEY Last Admin: 10/27/22 20:07 Dose: 10 mg Hydroxyzine HCl (Hydroxyzine Hcl 25 Mg Tablet) 25 mg PO Q6H PRN PRN Reason: Anxiety Magnesium Hydroxide (Milk Of Magnesia 30 Ml Oral.Susp) 30 ml PO DAILY PRN PRN Reason: Constipation Olanzapine (Olanzapine 2.5 Mg Tablet) 2.5 mg PO TID PRN PRN Reason: agitation Olanzapine (Olanzapine 10 Mg Tablet) 10 mg PO BEDTIME CASEY Last Admin: 10/27/22 20:07 Dose: 10 mg Trazodone HCl (Trazodone Hcl 50 Mg Tablet) 50 mg PO BEDTIME PRN PRN Reason: Insomnia Last Admin: 10/27/22 20:08 Dose: 50 mg Allergies Allergies Allergy/AdvReac Type Severity Reaction Status Date / Time pollen extracts Allergy Unknown unknown Verified 04/21/22 14:56 latex Allergy Unknown Rash Uncoded 04/21/22 14:55 Assessment & Plan Assessment & Plan (1) Bipolar disorder, now depressed: Status: Acute Code(s): F31.30 - Bipolar disorder, current episode depressed, mild or moderate severity, unspecified (2) Cognitive impairment: Status: Acute Code(s): R41.89 - Other symptoms and signs involving cognitive functions and awareness Plan 82 year old male with history hyperlipidemia, tubular adenoma colon (last colonoscopy 12/21), BPH, chronic normocytic anemia, osteoarthritis shoulders and hips s/p b/l hip arthroplasty, chronic low back pain with lumbar stenosis, depression, hx rotator cuff tear, actinic keratosis, and atypical melanocytic hyperplasia admitted to geriatric psychiatry from [facility] with consult placed to medical hospitalist service for medical H&P. 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 Can use ibuprofen 600mg q6h prn as well if topical diclofenac unavailable. #Chronic left hip pain -per ED provider note at [facility], patient foot got stuck in a hole several months ago and fell onto the left hip. Subsequent imaging studies including x-ray of the hip/pelvis and CT of the pelvis are negative for fracture -Pain management as above -outpt follow up Pt refused physical extensive. Extensive review of prior note and records from [facility] conducted as noted above. Plan 1. Gather collateral information. His niece called and she provide more collateral information to the social media sr strategy manager. Currently the patient is homeless and he is unable to take care of himself. We had to filed for Section 7 and 8 since the patient refused to sign the conditional voluntary. 2. Continue with Zyprexa at bedtime. We are increasing Zyprexa up to 10 mg p.o. q.h.s. in October 27 since the patient had been more intrusive and disinhibited. 3. The occupational therapist did an Hebert test and he scored 3.2, he used to be on 3.6 a few months ago. That means that he will need 24 hour care. We are going to start Aricept to target dementia. Reason for continued inpatient stay Substantial Risk for: inability to function, rapid decompensation and med/psych decompensation Time Spent With Patient Time: Total time managing care of this patient today __20__ minutes.
[2022-10-28] MEDS: Acetaminophen 325 MG TABLET 650 MG PO ×2 (08:18→20:29)
[2022-10-28 18:00] VITALS: BP 123/67; PULSE 66; RESP 18; TEMP 36.4; O2SAT 95
[2022-10-28] MEDS: Donepezil HCl 10 MG TABLET PO (20:24)
[2022-10-28] MEDS: OLANZapine 10 MG TABLET PO (20:24)
[2022-10-29 08:00] VITALS: BP 126/82; PULSE 73; RESP 18; TEMP 36.6; O2SAT 97
--- NOTE | 2022-10-29 10:11 | HO.PSYCHPN ---
Subjective Subjective Date of Service: 10/29/22 Reason For Visit: F31.9, F43.25 Subjective Notes: Section 7 Interim History: Pt reports fair sleep. He reports feeling tired, and sleepy this morning and just wanting to rest. Pt continues to report that Government is behind plan of keeping him here in the hospital and he does not accept finding of cognitive impairments which affect his ability to care for himself, safely in the community. He denies SI/HI. He is visible on the unit mostly later in the day. No significant behavioral concerns. Review of Systems Review of Systems Yes Unobtainable due to mental status Mental Status Exam Mental Status Exam Narrative: Pt is alert but not oriented; behavior is friendly but intrusive and moments of agitation; patient is not in distress; dressed in casual attire and unkempt; mood is described as good and affect congruent; eye contact appropriate; Speech is normal rate, volume and prosody; intermittent psychomotor agitation present; thought process tangential; Thought content on chronic hip pain from past injury; or on various random topics; does not express any SI/HI. Unclear about [facility] Patients insight and judgment impaired Diagnostics Vital Signs (24Hr): Vital Signs - 24 hr 10/28/22 18:00 10/29/22 08:00 Temperature 97.6 F 97.9 F Pulse Rate 66 73 Respiratory Rate 18 18 Blood Pressure 123/67 126/82 Pulse Oximetry 95 97 Oxygen Delivery Method Room Air Room Air BMI result Body Mass Index 26.2 Labs 10/13/22 06:26 Medications Medications Current Medications Acetaminophen (Acetaminophen 325 Mg Tablet) 650 mg PO Q6H PRN PRN Reason: Headache/Pain Mild Scale (1-3) Last Admin: 10/28/22 20:29 Dose: 650 mg Al Hydroxide/Mg Hydroxide (Magnesium Hydrox/Alum Hydrox 30 Ml Oral.Susp) 30 ml PO Q6H PRN PRN Reason: Heartburn/Nausea Donepezil HCl (Donepezil Hcl 10 Mg Tablet) 10 mg PO BEDTIME CASEY Last Admin: 10/28/22 20:24 Dose: 10 mg Hydroxyzine HCl (Hydroxyzine Hcl 25 Mg Tablet) 25 mg PO Q6H PRN PRN Reason: Anxiety Magnesium Hydroxide (Milk Of Magnesia 30 Ml Oral.Susp) 30 ml PO DAILY PRN PRN Reason: Constipation Olanzapine (Olanzapine 2.5 Mg Tablet) 2.5 mg PO TID PRN PRN Reason: agitation Olanzapine (Olanzapine 10 Mg Tablet) 10 mg PO BEDTIME CASEY Last Admin: 10/28/22 20:24 Dose: 10 mg Trazodone HCl (Trazodone Hcl 50 Mg Tablet) 50 mg PO BEDTIME PRN PRN Reason: Insomnia Last Admin: 10/27/22 20:08 Dose: 50 mg Allergies Allergies Allergy/AdvReac Type Severity Reaction Status Date / Time pollen extracts Allergy Unknown unknown Verified 04/21/22 14:56 latex Allergy Unknown Rash Uncoded 04/21/22 14:55 Assessment & Plan Assessment & Plan (1) Bipolar disorder, now depressed: Status: Acute Code(s): F31.30 - Bipolar disorder, current episode depressed, mild or moderate severity, unspecified (2) Cognitive impairment: Status: Acute Code(s): R41.89 - Other symptoms and signs involving cognitive functions and awareness Plan 82 year old male with history hyperlipidemia, tubular adenoma colon (last colonoscopy 12/21), BPH, chronic normocytic anemia, osteoarthritis shoulders and hips s/p b/l hip arthroplasty, chronic low back pain with lumbar stenosis, depression, hx rotator cuff tear, actinic keratosis, and atypical melanocytic hyperplasia admitted to geriatric psychiatry from [facility] with consult placed to medical hospitalist service for medical H&P. 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 Can use ibuprofen 600mg q6h prn as well if topical diclofenac unavailable. #Chronic left hip pain -per ED provider note at [facility], patient foot got stuck in a hole several months ago and fell onto the left hip. Subsequent imaging studies including x-ray of the hip/pelvis and CT of the pelvis are negative for fracture -Pain management as above -outpt follow up Pt refused physical extensive. Extensive review of prior note and records from [facility] conducted as noted above. Plan 1. Gather collateral information. His niece called and she provide more collateral information to the vp digital marketing social media and crm. Currently the patient is homeless and he is unable to take care of himself. We had to filed for Section 7 and 8 since the patient refused to sign the conditional voluntary. 2. Continue with Zyprexa at bedtime. We are increasing Zyprexa up to 10 mg p.o. q.h.s. in October 27 since the patient had been more intrusive and disinhibited. 3. The occupational therapist did an Hebert test and he scored 3.2, he used to be on 3.6 a few months ago. That means that he will need 24 hour care. We are going to start Aricept to target dementia. 10/29 continue tx. Reason for continued inpatient stay Substantial Risk for: inability to function Time Spent With Patient Time: Total time managing care of this patient today ____ minutes.
[2022-10-29 18:00] VITALS: BP 112/56; PULSE 67; RESP 16; TEMP 36; O2SAT 95
[2022-10-29] MEDS: OLANZapine 10 MG TABLET PO (20:08)
[2022-10-29] MEDS: Donepezil HCl 10 MG TABLET PO (20:08)
[2022-10-30 09:48] VITALS: BP 99/54; PULSE 61; RESP 18; TEMP 37.2; O2SAT 94
--- NOTE | 2022-10-30 10:39 | P.PNPSI_ITS ---
Subjective Subjective Date of Service: 10/30/22 Reason For Visit: F31.9, F43.25 Subjective Notes: Section 7 and Section 8 Interim History: The nursing staff reported the patient ate 100% of his meals, he was seen later dancing the hallway.? The staff reported that he is hearing for his guardian she will be on was 15 at 02:00 o'clock in the afternoon.? On interview the patient reports that he wants to leave, he is unable to remember the conversations that we had about his homelessness.? Perseverative with poor short-term memory. Mental Status Exam Mental Status Exam Patient Appearance: Appropriate Patient Orientation: Person and Situation Level of Consciousness: Awake and Appropriate Patient Behavior: Guarded and Restless Mood Description: Withdrawn Affect Description: Constricted Patient Cognition Impaired: Yes Ability to Follow Directions: Good Speech Pattern: Clear Hallucinations: None Delusions: Not Present Thought Process: Distracted and Evasive Thought Content: positive for [place] and positive for Poverty of Content Judgement: Fair Diagnostics Vital Signs (24Hr): Vital Signs - 24 hr 10/29/22 18:00 10/30/22 09:48 Temperature 96.8 F 99.0 F Pulse Rate 67 61 Respiratory Rate 16 18 Blood Pressure 112/56 L 99/54 L Pulse Oximetry 95 94 Oxygen Delivery Method Room Air Room Air BMI result Body Mass Index 26.2 Labs 10/13/22 06:26 Medications Medications Current Medications Acetaminophen (Acetaminophen 325 Mg Tablet) 650 mg PO Q6H PRN PRN Reason: Headache/Pain Mild Scale (1-3) Last Admin: 10/28/22 20:29 Dose: 650 mg Al Hydroxide/Mg Hydroxide (Magnesium Hydrox/Alum Hydrox 30 Ml Oral.Susp) 30 ml PO Q6H PRN PRN Reason: Heartburn/Nausea Donepezil HCl (Donepezil Hcl 10 Mg Tablet) 10 mg PO BEDTIME CASEY Last Admin: 10/29/22 20:08 Dose: 10 mg Hydroxyzine HCl (Hydroxyzine Hcl 25 Mg Tablet) 25 mg PO Q6H PRN PRN Reason: Anxiety Magnesium Hydroxide (Milk Of Magnesia 30 Ml Oral.Susp) 30 ml PO DAILY PRN PRN Reason: Constipation Olanzapine (Olanzapine 2.5 Mg Tablet) 2.5 mg PO TID PRN PRN Reason: agitation Olanzapine (Olanzapine 10 Mg Tablet) 10 mg PO BEDTIME CASEY Last Admin: 10/29/22 20:08 Dose: 10 mg Trazodone HCl (Trazodone Hcl 50 Mg Tablet) 50 mg PO BEDTIME PRN PRN Reason: Insomnia Last Admin: 10/27/22 20:08 Dose: 50 mg Allergies Allergies Allergy/AdvReac Type Severity Reaction Status Date / Time pollen extracts Allergy Unknown unknown Verified 04/21/22 14:56 latex Allergy Unknown Rash Uncoded 04/21/22 14:55 Assessment & Plan Assessment & Plan (1) Bipolar disorder, now depressed: Status: Acute Code(s): F31.30 - Bipolar disorder, current episode depressed, mild or moderate severity, unspecified (2) Cognitive impairment: Status: Acute Code(s): R41.89 - Other symptoms and signs involving cognitive functions and awareness Plan 82 year old male with history hyperlipidemia, tubular adenoma colon (last colonoscopy 12/21), BPH, chronic normocytic anemia, osteoarthritis shoulders and hips s/p b/l hip arthroplasty, chronic low back pain with lumbar stenosis, depression, hx rotator cuff tear, actinic keratosis, and atypical melanocytic hyperplasia admitted to geriatric psychiatry from [facility] with consult placed to medical hospitalist service for medical H&P. 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 Can use ibuprofen 600mg q6h prn as well if topical diclofenac unavailable. #Chronic left hip pain -per ED provider note at [facility], patient foot got stuck in a hole several months ago and fell onto the left hip. Subsequent imaging studies i ncluding x-ray of the hip/pelvis and CT of the pelvis are negative for fracture -Pain management as above -outpt follow up Pt refused physical extensive. Extensive review of prior note and records from [facility] conducted as noted above. Plan 1. Gather collateral information. His niece called and she provide more collateral information to the high school social science teacher. Currently the patient is homeless and he is unable to take care of himself. We had to filed for Section 7 and 8 since the patient refused to sign the conditional voluntary. 2. Continue with Zyprexa at bedtime. We are increasing Zyprexa up to 10 mg p.o. q.h.s. in October 27 since the patient had been more intrusive and disinhibited. 3. The occupational therapist did an Hebert test and he scored 3.2, he used to be on 3.6 a few months ago. That means that he will need 24 hour care. We are going to start Aricept to target dementia. So far the patient did not have any side effects still cognitively impaired. Reason for continued inpatient stay Substantial Risk for: inability to function, rapid decompensation and med/psych decompensation Time Spent With Patient Time: Total time managing care of this patient today _20___ minutes.
[2022-10-30 19:35] VITALS: BP 101/62; PULSE 75; RESP 18; TEMP 36.2; O2SAT 95
[2022-10-30] MEDS: OLANZapine 10 MG TABLET PO (19:58)
[2022-10-30] MEDS: Donepezil HCl 10 MG TABLET PO (19:58)
[2022-10-31 00:40] VITALS: BP 116/61; PULSE 69; RESP 18; TEMP 36.6; O2SAT 97
[2022-10-31 00:42] VITALS: BP 116/61; PULSE 69; RESP 16; TEMP 36.6; O2SAT 97
[2022-10-31] MEDS: Acetaminophen 325 MG TABLET 650 MG PO (00:56)
--- NOTE | 2022-10-31 01:38 | PC.NURSE ---
At approx 0035, [facility] notified this automatic typewriter inspector that patient was found on floor beside his bed, feet tangled in his blankets. Upon arrival to patient's room, patient had already gotten himself up and put himself back to bed. This automatic typewriter inspector asked patient what happened, and patient reports My feet got stuck here. Patient denies any injuries. No abnormalities during head to toe assessment observed. Vital signs WNL and neuro check intact. scallop binder provider, hospitalist, and nursing plastic tubing insulation supervisor notified.
[2022-10-31 08:00] VITALS: BP 136/70; PULSE 67; RESP 18; TEMP 36.6; O2SAT 98
--- NOTE | 2022-10-31 10:05 | P.PNPSI_ITS ---
Subjective Subjective Date of Service: 10/31/22 Reason For Visit: F31.9, F43.25 Subjective Notes: Section 7 and Section 8 Interim History: The nursing staff reported the patient had been irritable at times but redirectable. He slept well last night but he fell. No injuries on physical exam. On interview the patient denies new symptoms, again he wants to be discharged and he is unable to process new information. Mental Status Exam Mental Status Exam Patient Appearance: Well Grooomed and Appropriate Patient Orientation: Person and Situation Level of Consciousness: Awake and Appropriate Patient Behavior: Guarded and Passive Mood Description: Calm Affect Description: Labile Patient Cognition Impaired: Yes Ability to Follow Directions: Good Speech Pattern: Clear Hallucinations: None Delusions: Not Present Thought Process: Illogical, Distracted and Evasive Thought Content: positive for [place], positive for [place] and positive for Poverty of Content Judgement: Poor Diagnostics Vital Signs (24Hr): Vital Signs - 24 hr 10/30/22 19:35 10/31/22 00:42 10/31/22 00:40 Temperature 97.2 F 97.9 F 97.9 F Pulse Rate 75 69 69 Respiratory Rate 18 16 18 Blood Pressure 101/62 116/61 116/61 Pulse Oximetry 95 97 97 Oxygen Delivery Method Room Air Room Air 10/31/22 08:00 Temperature 97.9 F Pulse Rate 67 Respiratory Rate 18 Blood Pressure 136/70 Pulse Oximetry 98 Oxygen Delivery Method Room Air BMI result Body Mass Index 26.2 Labs 10/13/22 06:26 Medications Medications Current Medications Acetaminophen (Acetaminophen 325 Mg Tablet) 650 mg PO Q6H PRN PRN Reason: Headache/Pain Mild Scale (1-3) Last Admin: 10/31/22 00:56 Dose: 650 mg Al Hydroxide/Mg Hydroxide (Magnesium Hydrox/Alum Hydrox 30 Ml Oral.Susp) 30 ml PO Q6H PRN PRN Reason: Heartburn/Nausea Donepezil HCl (Donepezil Hcl 10 Mg Tablet) 10 mg PO BEDTIME CASEY Last Admin: 10/30/22 19:58 Dose: 10 mg Hydroxyzine HCl (Hydroxyzine Hcl 25 Mg Tablet) 25 mg PO Q6H PRN PRN Reason: Anxiety Magnesium Hydroxide (Milk Of Magnesia 30 Ml Oral.Susp) 30 ml PO DAILY PRN PRN Reason: Constipation Olanzapine (Olanzapine 2.5 Mg Tablet) 2.5 mg PO TID PRN PRN Reason: agitation Olanzapine (Olanzapine 10 Mg Tablet) 10 mg PO BEDTIME CASEY Last Admin: 10/30/22 19:58 Dose: 10 mg Trazodone HCl (Trazodone Hcl 50 Mg Tablet) 50 mg PO BEDTIME PRN PRN Reason: Insomnia Last Admin: 10/27/22 20:08 Dose: 50 mg Allergies Allergies Allergy/AdvReac Type Severity Reaction Status Date / Time pollen extracts Allergy Unknown unknown Verified 04/21/22 14:56 latex Allergy Unknown Rash Uncoded 04/21/22 14:55 Assessment & Plan Assessment & Plan (1) Bipolar disorder, now depressed: Status: Acute Code(s): F31.30 - Bipolar disorder, current episode depressed, mild or moderate severity, unspecified (2) Cognitive impairment: Status: Acute Code(s): R41.89 - Other symptoms and signs involving cognitive functions and awareness Plan 82 year old male with history hyperlipidemia, tubular adenoma colon (last colonoscopy 12/21), BPH, chronic normocytic anemia, osteoarthritis shoulders and hips s/p b/l hip arthroplasty, chronic low back pain with lumbar stenosis, depression, hx rotator cuff tear, actinic keratosis, and atypical melanocytic hyperplasia admitted to geriatric psychiatry from [facility] with consult placed to medical hospitalist service for medical H&P. 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 Can use ibuprofen 600mg q6h prn as well if topical diclofenac unavailable. #Chronic left hip pain -per ED provider note at [facility], patient foot got stuck in a hole several months ago and fell onto the left hip. Subsequent imaging studies including x-ray of the hip/pelvis and CT of the pelvis are negative for fracture -Pain management as above -outpt follow up Pt refused physical extensive. Extensive review of prior note and records from [facility] conducted as noted above. Plan 1. Gather collateral information. His niece called and she provide more collateral information to the social work instructor. Currently the patient is homeless and he is unable to take care of himself. We had to filed for Section 7 and 8 since the patient refused to sign the conditional voluntary. 2. Continue with Zyprexa at bedtime. We are increasing Zyprexa up to 10 mg p.o. q.h.s. in October 27 since the patient had been more intrusive and disinhibited. 3. The occupational therapist did an Hebert test and he scored 3.2, he used to be on 3.6 a few months ago. That means that he will need 24 hour care. We are g oing to start Aricept to target dementia. So far the patient did not have any side effects still cognitively impaired. Reason for continued inpatient stay Substantial Risk for: inability to function, rapid decompensation and med/psych decompensation Time Spent With Patient Time: Total time managing care of this patient today ___20_ minutes.
[2022-10-31 19:20] VITALS: BP 121/59; PULSE 76; RESP 20; TEMP 36.4; O2SAT 94
[2022-10-31] MEDS: Donepezil HCl 10 MG TABLET PO (20:07)
[2022-10-31] MEDS: OLANZapine 10 MG TABLET PO (20:07)
[2022-11-01 07:00] VITALS: BMI 26.3
[2022-11-01 08:00] VITALS: BP 117/70; PULSE 64; RESP 16; TEMP 36.2; O2SAT 97
--- NOTE | 2022-11-01 12:28 | P.PNPSI_ITS ---
Subjective Subjective Date of Service: 11/01/22 Reason For Visit: F31.9, F43.25 Subjective Notes: Section 7 and Section 8 Interim History: The nursing staff reported the patient had been visible in the unit, compliant with medications intrusive with other peers. He slept 8 hours. The occupational therapy reported that he is very attention seeking. Today he is going to have an independent medical care manager. On interview the patient is unable to remember the conversations of the days before why he is here and why we cannot discharge him to the community. Mental Status Exam Mental Status Exam Patient Appearance: Disheveled and Unkempt Patient Orientation: Person Level of Consciousness: Awake Patient Behavior: Guarded and Wandering Mood Description: Withdrawn Affect Description: Constricted Patient Cognition Impaired: Yes Ability to Follow Directions: Good Speech Pattern: Clear Hallucinations: None Delusions: Not Present Thought Process: Distracted Thought Content: positive for [place] and positive for [place] Judgement: Poor Diagnostics Vital Signs (24Hr): Vital Signs - 24 hr 10/31/22 19:20 11/01/22 08:00 Temperature 97.5 F 97.1 F Pulse Rate 76 64 Respiratory Rate 20 16 Blood Pressure 121/59 L 117/70 Pulse Oximetry 94 97 Oxygen Delivery Method Room Air Room Air BMI result Body Mass Index 26.3 Labs 10/13/22 06:26 Medications Medications Current Medications Acetaminophen (Acetaminophen 325 Mg Tablet) 650 mg PO Q6H PRN PRN Reason: Headache/Pain Mild Scale (1-3) Last Admin: 10/31/22 00:56 Dose: 650 mg Al Hydroxide/Mg Hydroxide (Magnesium Hydrox/Alum Hydrox 30 Ml Oral.Susp) 30 ml PO Q6H PRN PRN Reason: Heartburn/Nausea Donepezil HCl (Donepezil Hcl 10 Mg Tablet) 10 mg PO BEDTIME CASEY Last Admin: 10/31/22 20:07 Dose: 10 mg Hydroxyzine HCl (Hydroxyzine Hcl 25 Mg Tablet) 25 mg PO Q6H PRN PRN Reason: Anxiety Magnesium Hydroxide (Milk Of Magnesia 30 Ml Oral.Susp) 30 ml PO DAILY PRN PRN Reason: Constipation Olanzapine (Olanzapine 2.5 Mg Tablet) 2.5 mg PO TID PRN PRN Reason: agitation Olanzapine (Olanzapine 10 Mg Tablet) 10 mg PO BEDTIME CASEY Last Admin: 10/31/22 20:07 Dose: 10 mg Trazodone HCl (Trazodone Hcl 50 Mg Tablet) 50 mg PO BEDTIME PRN PRN Reason: Insomnia Last Admin: 10/27/22 20:08 Dose: 50 mg Allergies Allergies Allergy/AdvReac Type Severity Reaction Status Date / Time pollen extracts Allergy Unknown unknown Verified 04/21/22 14:56 latex Allergy Rash Verified 10/31/22 18:30 Assessment & Plan Assessment & Plan (1) Bipolar disorder, now depressed: Status: Acute Code(s): F31.30 - Bipolar disorder, current episode depressed, mild or moderate severity, unspecified (2) Cognitive impairment: Status: Acute Code(s): R41.89 - Other symptoms and signs involving cognitive functions and awareness Plan 82 year old male with history hyperlipidemia, tubular adenoma colon (last colonoscopy 12/21), BPH, chronic normocytic anemia, osteoarthritis shoulders and hips s/p b/l hip arthroplasty, chronic low back pain with lumbar stenosis, depression, hx rotator cuff tear, actinic keratosis, and atypical melanocytic hyperplasia admitted to geriatric psychiatry from [facility] with consult placed to medical hospitalist service for medical H&P. 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 Can use ibuprofen 600mg q6h prn as well if topical diclofenac unavailable. #Chronic left hip pain -per ED provider note at [facility], patient foot got stuck in a hole several months ago and fell onto the left hip. Subsequent imaging studies including x-ray of the hip/pelvis and CT of the pelvis are negative for fracture -Pain management as above -outpt follow up Pt refused physical extensive. Extensive review of prior note and records from [facility] conducted as noted above. Plan 1. Gather collateral information. His niece called and she provide more collateral information to the social services aide. Currently the patient is homeless and he is unable to take care of himself. We had to filed for Section 7 and 8 since the patient refused to sign the conditional voluntary. 2. Continue with Zyprexa at bedtime. We are increasing Zyprexa up to 10 mg p.o. q.h.s. in October 27 since the patient had been more intrusive and disinhibited. 3. The occupational therapist did an Hebert test and he scored 3.2, he used to be on 3.6 a few months ago. That means that he will need 24 hour care. We are going to start Aricept to target dementia. So far the patient did not have any side effects still cognitively impaired. Reason for continued inpatient stay Substantial Risk for: inability to function, rapid decompensation and med/psych decompensation Time Spent With Patient Time: Total time managing care of this patient today _20___ minutes.
[2022-11-01 18:00] VITALS: BP 106/61; PULSE 62; RESP 16; O2SAT 97
[2022-11-01] MEDS: Donepezil HCl 10 MG TABLET PO (20:51)
[2022-11-01] MEDS: OLANZapine 10 MG TABLET PO (20:51)
[2022-11-02] MEDS: traZODone HCL 50 MG TABLET PO (00:20)
[2022-11-02] MEDS: hydrOXYzine HCL 25 MG TABLET PO (00:20)
[2022-11-02 08:00] VITALS: BP 160/90; PULSE 74; RESP 18; TEMP 36.2; O2SAT 97
--- NOTE | 2022-11-02 10:23 | P.PNPSI_ITS ---
Subjective Subjective Date of Service: 11/02/22 Reason For Visit: F31.9, F43.25 Subjective Notes: Section 7 and Section 8 Interim History: The nursing staff reported the patient had been compliant with treatment, he had been sarcastic and irritable at times. Yesterday he had a meeting with the independent medical billing and coding instructor for 20 minutes. The social welfare administrator reported that she is working with the beam house inspector of the local firm for guardianship. On interview the patient is unable to remember the discussion of the day before, no changes in his mental status. Mental Status Exam Mental Status Exam Patient Appearance: Well Grooomed and Appropriate Patient Orientation: Person and Situation Level of Consciousness: Awake and Appropriate Patient Behavior: Guarded and Passive Mood Description: Calm Affect Description: Constricted Patient Cognition Impaired: Yes Ability to Follow Directions: Good Speech Pattern: Clear Hallucinations: None Delusions: Not Present Thought Process: Illogical, Distracted and Evasive Thought Content: positive for [place] and positive for Poverty of Content Judgement: Fair Diagnostics Vital Signs (24Hr): Vital Signs - 24 hr 11/01/22 18:00 11/02/22 08:00 Temperature 97.1 F Pulse Rate 62 74 Respiratory Rate 16 18 Blood Pressure 106/61 160/90 H Pulse Oximetry 97 97 Oxygen Delivery Method Room Air Room Air BMI result Body Mass Index 26.3 Labs 10/13/22 06:26 Medications Medications Current Medications Acetaminophen (Acetaminophen 325 Mg Tablet) 650 mg PO Q6H PRN PRN Reason: Headache/Pain Mild Scale (1-3) Last Admin: 10/31/22 00:56 Dose: 650 mg Al Hydroxide/Mg Hydroxide (Magnesium Hydrox/Alum Hydrox 30 Ml Oral.Susp) 30 ml PO Q6H PRN PRN Reason: Heartburn/Nausea Donepezil HCl (Donepezil Hcl 10 Mg Tablet) 10 mg PO BEDTIME CASEY Last Admin: 11/01/22 20:51 Dose: 10 mg Hydroxyzine HCl (Hydroxyzine Hcl 25 Mg Tablet) 25 mg PO Q6H PRN PRN Reason: Anxiety Last Admin: 11/02/22 00:20 Dose: 25 mg Magnesium Hydroxide (Milk Of Magnesia 30 Ml Oral.Susp) 30 ml PO DAILY PRN PRN Reason: Constipation Olanzapine (Olanzapine 2.5 Mg Tablet) 2.5 mg PO TID PRN PRN Reason: agitation Olanzapine (Olanzapine 10 Mg Tablet) 10 mg PO BEDTIME CASEY Last Admin: 11/01/22 20:51 Dose: 10 mg Trazodone HCl (Trazodone Hcl 50 Mg Tablet) 50 mg PO BEDTIME PRN PRN Reason: Insomnia Last Admin: 11/02/22 00:20 Dose: 50 mg Allergies Allergies Allergy/AdvReac Type Severity Reaction Status Date / Time pollen extracts Allergy Unknown unknown Verified 04/21/22 14:56 latex Allergy Rash Verified 10/31/22 18:30 Assessment & Plan Assessment & Plan (1) Bipolar disorder, now depressed: Status: Acute Code(s): F31.30 - Bipolar disorder, current episode depressed, mild or moderate severity, unspecified (2) Cognitive impairment: Status: Acute Code(s): R41.89 - Other symptoms and signs involving cognitive functions and awareness Plan 82 year old male with history hyperlipidemia, tubular adenoma colon (last colonoscopy 12/21), BPH, chronic normocytic anemia, osteoarthritis shoulders and hips s/p b/l hip arthroplasty, chronic low back pain with lumbar stenosis, depression, hx rotator cuff tear, actinic keratosis, and atypical melanocytic hyperplasia admitted to geriatric psychiatry from [facility] with consult placed to medical hospitalist service for medical H&P. 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 Can use ibuprofen 600mg q6h prn as well if topical diclofenac unavailable. #Chronic left hip pain -per ED provider note at [facility], patient foot got stuck in a hole se veral months ago and fell onto the left hip. Subsequent imaging studies including x-ray of the hip/pelvis and CT of the pelvis are negative for fracture -Pain management as above -outpt follow up Pt refused physical extensive. Extensive review of prior note and records from [facility] conducted as noted above. Plan 1. Gather collateral information. His niece called and she provide more collateral information to the social welfare administrator. Currently the patient is homeless and he is unable to take care of himself. We had to filed for Section 7 and 8 since the patient refused to sign the conditional voluntary. 2. Continue with Zyprexa at bedtime. We are increasing Zyprexa up to 10 mg p.o. q.h.s. in October 27 since the patient had been more intrusive and disinhibited. 3. The occupational therapist did an Hebert test and he scored 3.2, he used to be on 3.6 a few months ago. That means that he will need 24 hour care. We are going to start Aricept to target dementia. So far the patient did not have any side effects still cognitively impaired. Reason for continued inpatient stay Substantial Risk for: inability to function, rapid decompensation and med/psych decompensation Time Spent With Patient Time: Total time managing care of this patient today __20__ minutes.
[2022-11-02 18:00] VITALS: BP 124/70; PULSE 73; RESP 18; TEMP 36.3; O2SAT 98
[2022-11-02] MEDS: Donepezil HCl 10 MG TABLET PO (20:21)
[2022-11-02] MEDS: Acetaminophen 325 MG TABLET 650 MG PO (20:21)
[2022-11-02] MEDS: OLANZapine 10 MG TABLET PO (20:21)
[2022-11-03 08:39] VITALS: BP 144/81; PULSE 68; RESP 18; TEMP 35.9; O2SAT 96
--- NOTE | 2022-11-03 11:31 | P.PNPSI_ITS ---
Subjective Subjective Date of Service: 11/03/22 Reason For Visit: F31.9, F43.25 Subjective Notes: Section 7 and Section 8 Interim History: Patient was seen and discussed in rounds today. Records and plans were reviewed. He is alert to person. Disposition continues to be an issue which is being worked on. He continues to be pleasant and sometimes sarcastic. Eating and sleeping adequately. No complaints. No changes were made Review of Systems Review of Systems Yes Unobtainable due to mental status Mental Status Exam Mental Status Exam Patient Appearance: Well Grooomed and Appropriate Patient Orientation: Person and Situation Level of Consciousness: Awake and Appropriate Patient Behavior: Guarded and Passive Mood Description: Calm Affect Description: Constricted Patient Cognition Impaired: Yes Ability to Follow Directions: Good Speech Pattern: Clear Hallucinations: None Delusions: Not Present Thought Process: Illogical, Distracted and Evasive Thought Content: positive for [place] and positive for Poverty of Content Judgement: Fair Diagnostics Vital Signs (24Hr): Vital Signs - 24 hr 11/02/22 18:00 11/03/22 08:39 Temperature 97.3 F 96.6 F L Pulse Rate 73 68 Respiratory Rate 18 18 Blood Pressure 124/70 144/81 H Pulse Oximetry 98 96 Oxygen Delivery Method Room Air Room Air BMI result Body Mass Index 26.3 Labs 10/13/22 06:26 Medications Medications Current Medications Acetaminophen (Acetaminophen 325 Mg Tablet) 650 mg PO Q6H PRN PRN Reason: Headache/Pain Mild Scale (1-3) Last Admin: 11/02/22 20:21 Dose: 650 mg Al Hydroxide/Mg Hydroxide (Magnesium Hydrox/Alum Hydrox 30 Ml Oral.Susp) 30 ml PO Q6H PRN PRN Reason: Heartburn/Nausea Donepezil HCl (Donepezil Hcl 10 Mg Tablet) 10 mg PO BEDTIME [facility] Last Admin: 11/02/22 20:21 Dose: 10 mg Hydroxyzine HCl (Hydroxyzine Hcl 25 Mg Tablet) 25 mg PO Q6H PRN PRN Reason: Anxiety Last Admin: 11/02/22 00:20 Dose: 25 mg Magnesium Hydroxide (Milk Of Magnesia 30 Ml Oral.Susp) 30 ml PO DAILY PRN PRN Reason: Constipation Olanzapine (Olanzapine 2.5 Mg Tablet) 2.5 mg PO TID PRN PRN Reason: agitation Olanzapine (Olanzapine 10 Mg Tablet) 10 mg PO BEDTIME [facility] Last Admin: 11/02/22 20:21 Dose: 10 mg Trazodone HCl (Trazodone Hcl 50 Mg Tablet) 50 mg PO BEDTIME PRN PRN Reason: Insomnia Last Admin: 11/02/22 00:20 Dose: 50 mg Allergies Allergies Allergy/AdvReac Type Severity Reaction Status Date / Time pollen extracts Allergy Unknown unknown Verified 04/21/22 14:56 latex Allergy Rash Verified 10/31/22 18:30 Assessment & Plan Assessment & Plan (1) Bipolar disorder, now depressed: Status: Acute Code(s): F31.30 - Bipolar disorder, current episode depressed, mild or moderate severity, unspecified (2) Cognitive impairment: Status: Acute Code(s): R41.89 - Other symptoms and signs involving cognitive functions and awareness Plan 82 year old male with history hyperlipidemia, tubular adenoma colon (last colonoscopy 12/21), BPH, chronic normocytic anemia, osteoarthritis shoulders and hips s/p b/l hip arthroplasty, chronic low back pain with lumbar stenosis, depression, hx rotator cuff tear, actinic keratosis, and atypical melanocytic hyperplasia admitted to geriatric psychiatry from [facility] with consult placed to medical hospitalist service for medical H&P. 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 Can use ibuprofen 600mg q6h prn as well if topical diclofenac unavailable. #Chronic left hip pain -per ED provider note at [facility], patient foot got stuck in a hole several months ago and fell onto the left hip. Subsequent imaging studies including x-ray of the hip/pelvis and CT of the pelvis are negative for fracture -Pain management as above -outpt follow up Pt refused physical extensive. Extensive review of prior note and records from [facility] conducted as noted above. Plan 1. Gather collateral information. His niece called and she provide more collateral information to the web content & social media manager. Currently the patient is homeless and he is unable to take care of himself. We had to filed for Section 7 and 8 since the patient refused to sign the conditional voluntary. 2. Continue with Zyprexa at bedtime. We are increasing Zyprexa up to 10 mg p.o. q.h.s. in October 27 since the patient had been more intrusive and disinhibited. 3. The occupational therapist did an Hebert test and he scored 3.2, he used to be on 3.6 a few months ago. That means that he will need 24 hour care. We are going to start Aricept to target dementia. So far the patient did not have any side effects still cognitively impaired. 11/03: Continue current regimen and plans Reason for continued inpatient stay Substantial Risk for: inability to function Time Spent With Patient Time: Total time managing care of this patient today ____ minutes.
[2022-11-03 18:00] VITALS: BP 110/64; PULSE 70; RESP 18; TEMP 36.2; O2SAT 94
[2022-11-03] MEDS: Donepezil HCl 10 MG TABLET PO (20:21)
[2022-11-03] MEDS: OLANZapine 10 MG TABLET PO (20:21)
[2022-11-03] MEDS: Acetaminophen 325 MG TABLET 650 MG PO (20:21)
[2022-11-04 08:07] VITALS: BP 138/63; PULSE 60; RESP 18; TEMP 35.8; O2SAT 98
--- NOTE | 2022-11-04 11:26 | HO.PSYCHPN ---
Subjective Subjective Date of Service: 11/04/22 Reason For Visit: F31.9, F43.25 Subjective Notes: Section 7 and Section 8 Interim History: Patient was seen and discussed in rounds today. Records and plans were reviewed. He continues to be confused. Disposition is being worked on. He has been little irritable at times. Eating and sleeping adequately. No behavioral issues reported. No changes were made Review of Systems Review of Systems Yes Unobtainable due to mental status Mental Status Exam Mental Status Exam Patient Appearance: Well Grooomed and Appropriate Patient Orientation: Person and Situation Level of Consciousness: Awake and Appropriate Patient Behavior: Guarded and Passive Mood Description: Calm Affect Description: Constricted Patient Cognition Impaired: Yes Ability to Follow Directions: Good Speech Pattern: Clear Hallucinations: None Delusions: Not Present Thought Process: Illogical, Distracted and Evasive Thought Content: positive for [place] and positive for Poverty of Content Judgement: Fair Diagnostics Vital Signs (24Hr): Vital Signs - 24 hr 11/03/22 18:00 11/04/22 08:07 Temperature 97.1 F 96.5 F L Pulse Rate 70 60 Respiratory Rate 18 18 Blood Pressure 110/64 138/63 Pulse Oximetry 94 98 Oxygen Delivery Method Room Air Room Air BMI result Body Mass Index 26.3 Labs 10/13/22 06:26 Medications Medications Current Medications Acetaminophen (Acetaminophen 325 Mg Tablet) 650 mg PO Q6H PRN PRN Reason: Headache/Pain Mild Scale (1-3) Last Admin: 11/03/22 20:21 Dose: 650 mg Al Hydroxide/Mg Hydroxide (Magnesium Hydrox/Alum Hydrox 30 Ml Oral.Susp) 30 ml PO Q6H PRN PRN Reason: Heartburn/Nausea Donepezil HCl (Donepezil Hcl 10 Mg Tablet) 10 mg PO BEDTIME COUNTS INCLUDE 234 BEDS AT THE [facility] Last Admin: 11/03/22 20:21 Dose: 10 mg Hydroxyzine HCl (Hydroxyzine Hcl 25 Mg Tablet) 25 mg PO Q6H PRN PRN Reason: Anxiety Last Admin: 11/02/22 00:20 Dose: 25 mg Magnesium Hydroxide (Milk Of Magnesia 30 Ml Oral.Susp) 30 ml PO DAILY PRN PRN Reason: Constipation Olanzapine (Olanzapine 2.5 Mg Tablet) 2.5 mg PO TID PRN PRN Reason: agitation Olanzapine (Olanzapine 10 Mg Tablet) 10 mg PO BEDTIME COUNTS INCLUDE 234 BEDS AT THE [facility] Last Admin: 11/03/22 20:21 Dose: 10 mg Trazodone HCl (Trazodone Hcl 50 Mg Tablet) 50 mg PO BEDTIME PRN PRN Reason: Insomnia Last Admin: 11/02/22 00:20 Dose: 50 mg Allergies Allergies Allergy/AdvReac Type Severity Reaction Status Date / Time pollen extracts Allergy Unknown unknown Verified 04/21/22 14:56 latex Allergy Rash Verified 10/31/22 18:30 Assessment & Plan Assessment & Plan (1) Bipolar disorder, now depressed: Status: Acute Code(s): F31.30 - Bipolar disorder, current episode depressed, mild or moderate severity, unspecified (2) Cognitive impairment: Status: Acute Code(s): R41.89 - Other symptoms and signs involving cognitive functions and awareness Plan 82 year old male with history hyperlipidemia, tubular adenoma colon (last colonoscopy 12/21), BPH, chronic normocytic anemia, osteoarthritis shoulders and hips s/p b/l hip arthroplasty, chronic low back pain with lumbar stenosis, depression, hx rotator cuff tear, actinic keratosis, and atypical melanocytic hyperplasia admitted to geriatric psychiatry from [facility] with consult placed to medical hospitalist service for medical H&P. 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 Can use ibuprofen 600mg q6h prn as well if topical diclofenac unavailable. #Chronic left hip pain -per ED provider note at [facility], patient foot got stuck in a hole several months ago and fell onto the left hip. Subsequent imaging studies including x-ray of the hip/pelvis and CT of the pelvis are negative for fracture -Pain management as above -outpt follow up Pt refused physical extensive. Extensive review of prior note and records from [facility] conducted as noted above. Plan 1. Gather collateral information. His niece called and she provide more collateral information to the social media campaign manager. Currently the patient is homeless and he is unable to take care of himself. We had to filed for Section 7 and 8 since the patient refused to sign the conditional voluntary. 2. Continue with Zyprexa at bedtime. We are increasing Zyprexa up to 10 mg p.o. q.h.s. in October 27 since the patient had been more intrusive and disinhibited. 3. The occupational therapist did an Hebert test and he scored 3.2, he used to be on 3.6 a few months ago. That means that he will need 24 hour care. We are going to start Aricept to target dementia. So far the patient did not have any side effects still cognitively impaired. 11/03: Continue current regimen and plans 11/04: Continue current plans and regimen Reason for continued inpatient stay Substantial Risk for: inability to function Time Spent With Patient Time: Total time managing care of this patient today ____ minutes.
[2022-11-04 18:00] VITALS: BP 121/60; PULSE 74; RESP 18; TEMP 36.3; O2SAT 95
[2022-11-04] MEDS: Donepezil HCl 10 MG TABLET PO (20:35)
[2022-11-04] MEDS: traZODone HCL 50 MG TABLET PO (20:35)
[2022-11-04] MEDS: OLANZapine 10 MG TABLET PO (20:35)
[2022-11-05 08:00] VITALS: BP 124/75; PULSE 65; RESP 18; TEMP 36.3; O2SAT 97
[2022-11-05] MEDS: Acetaminophen 325 MG TABLET 650 MG PO (09:25)
--- NOTE | 2022-11-05 10:33 | P.PNPSI_ITS ---
Subjective Subjective Date of Service: 11/05/22 Reason For Visit: F31.9, F43.25 Subjective Notes: Section 7 and Section 8 Interim History: The nursing staff reported the patient had been common cooperative over the weekend, less challenging. He has been confused, medication compliance 100%. The social worker psychiatric reported that an Josh is working with [employer] attorneys so she could have the guardianship and help him back in [place]. On interview the patient denies new symptoms confused, we started Namenda 5 mg p.o. b.i.d. to target dementia. He still on Aricept with no side effects. Mental Status Exam Mental Status Exam Patient Appearance: Appropriate Patient Orientation: Person and Situation Level of Consciousness: Awake and Appropriate Patient Behavior: Guarded and Passive Mood Description: Withdrawn Affect Description: Constricted Patient Cognition Impaired: Yes Ability to Follow Directions: Good Speech Pattern: Clear Hallucinations: None Delusions: Not Present Thought Process: Illogical, Distracted and Slowed Thinking Thought Content: positive for [place] and positive for Perseveration Judgement: Poor Diagnostics Vital Signs (24Hr): Vital Signs - 24 hr 11/04/22 18:00 Temperature 97.3 F Pulse Rate 74 Respiratory Rate 18 Blood Pressure 121/60 Pulse Oximetry 95 Oxygen Delivery Method Room Air BMI result Body Mass Index 26.3 Labs 10/13/22 06:26 Medications Medications Current Medications Acetaminophen (Acetaminophen 325 Mg Tablet) 650 mg PO Q6H PRN PRN Reason: Headache/Pain Mild Scale (1-3) Last Admin: 11/05/22 09:25 Dose: 650 mg Al Hydroxide/Mg Hydroxide (Magnesium Hydrox/Alum Hydrox 30 Ml Oral.Susp) 30 ml PO Q6H PRN PRN Reason: Heartburn/Nausea Donepezil HCl (Donepezil Hcl 10 Mg Tablet) 10 mg PO BEDTIME [facility] Last Admin: 11/04/22 20:35 Dose: 10 mg Hydroxyzine HCl (Hydroxyzine Hcl 25 Mg Tablet) 25 mg PO Q6H PRN PRN Reason: Anxiety Last Admin: 11/02/22 00:20 Dose: 25 mg Magnesium Hydroxide (Milk Of Magnesia 30 Ml Oral.Susp) 30 ml PO DAILY PRN PRN Reason: Constipation Memantine (Memantine Hcl 5 Mg Tablet) 5 mg PO BID [facility] Last Admin: 11/05/22 09:58 Dose: Not Given Olanzapine (Olanzapine 2.5 Mg Tablet) 2.5 mg PO TID PRN PRN Reason: agitation Olanzapine (Olanzapine 10 Mg Tablet) 10 mg PO BEDTIME [facility] Last Admin: 11/04/22 20:35 Dose: 10 mg Trazodone HCl (Trazodone Hcl 50 Mg Tablet) 50 mg PO BEDTIME PRN PRN Reason: Insomnia Last Admin: 11/04/22 20:35 Dose: 50 mg Allergies Allergies Allergy/AdvReac Type Severity Reaction Status Date / Time pollen extracts Allergy Unknown unknown Verified 04/21/22 14:56 latex Allergy Rash Verified 10/31/22 18:30 Assessment & Plan Assessment & Plan (1) Bipolar disorder, now depressed: Status: Acute Code(s): F31.30 - Bipolar disorder, current episode depressed, mild or moderate severity, unspecified (2) Cognitive impairment: Status: Acute Code(s): R41.89 - Other symptoms and signs involving cognitive functions and awareness Plan 82 year old male with history hyperlipidemia, tubular adenoma colon (last colonoscopy 12/21), BPH, chronic normocytic anemia, osteoarthritis shoulders and hips s/p b/l hip arthroplasty, chronic low back pain with lumbar stenosis, depression, hx rotator cuff tear, actinic keratosis, and atypical melanocytic hyperplasia admitted to geriatric psychiatry from [facility] with consult placed to medical hospitalist service for medical H&P. 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 Can use ibuprofen 600mg q6h prn as well if topical diclofenac unavailable. #Chronic left hip pain -per ED provider note at [facility], patient foot got stuck in a hole several months ago and fell onto the left hip. Subsequent imaging studies including x-ray of the hip/pelvis and CT of the pelvis are negative for fracture -Pain management as above -outpt follow up Pt refused physical extensive. Extensive review of prior note and records from [facility] conducted as noted above. Plan 1. Gather collateral information. His niece called and she provide more collateral information to the social worker psychiatric. Currently the patient is homeless and he is unable to take care of himself. We had to filed for Section 7 and 8 since the patient refused to sign the conditional voluntary. 2. Continue with Zyprexa at bedtime. We are increasing Zyprexa up to 10 mg p.o. q.h.s. in October 27 since the patient had been more intrusive and disinhibited. 3. The occupational therapist did an Hebert test and he scored 3.2, he used to be on 3.6 a few months ago. That means that he will need 24 hour care. We are going to start Aricept to target dementia. So far the patient did not have any side effects still cognitively impaired. 4. Namenda 5 mg p.o. b.i.d. started ago was 7 to target dementia. Reason for continued inpatient stay Substantial Risk for: inability to function, rapid decompensation and med/psych decompensation Time Spent With Patient Time: Total time managing care of this patient today __20__ minutes.
[2022-11-05 19:45] VITALS: BP 138/73; PULSE 76; RESP 18; TEMP 36.3; O2SAT 95
[2022-11-05] MEDS: Memantine HCl 5 MG TABLET PO (20:19)
[2022-11-05] MEDS: Donepezil HCl 10 MG TABLET PO (20:19)
[2022-11-05] MEDS: OLANZapine 10 MG TABLET PO (20:19)
[2022-11-06 08:04] VITALS: BP 105/60; PULSE 60; RESP 18; TEMP 36.7; O2SAT 95
[2022-11-06] MEDS: Memantine HCl 5 MG TABLET PO ×2 (08:20→21:59)
[2022-11-06] MEDS: Acetaminophen 325 MG TABLET 650 MG PO (08:20)
--- NOTE | 2022-11-06 13:20 | P.PNPSI_ITS ---
Subjective Subjective Date of Service: 11/06/22 Reason For Visit: F31.9, F43.25 Subjective Notes: Section 7 and Section 8 Interim History: The nursing staff reported the patient had been pleasant, medication compliant he had been less angry and he slept 7 hours. Over the weekend a front of him came to visit him and the patient advocate himself so he can go to his place. The protective services social worker reported that her sister is working with the firm of attorneys about guardianship. On interview the patient denies new symptoms, waiting for placement. Mental Status Exam Mental Status Exam Patient Appearance: Unkempt Patient Orientation: Person and Situation Level of Consciousness: Awake and Appropriate Patient Behavior: Guarded and Passive Mood Description: Withdrawn Affect Description: Constricted Patient Cognition Impaired: Yes Ability to Follow Directions: Good Speech Pattern: Clear Hallucinations: None Delusions: Not Present Thought Process: Distracted and Evasive Thought Content: positive for [place], positive for [place] and positive for Poverty of Content Judgement: Poor Diagnostics Vital Signs (24Hr): Vital Signs - 24 hr 11/05/22 19:45 11/06/22 08:04 Temperature 97.3 F 98.0 F Pulse Rate 76 60 Respiratory Rate 18 18 Blood Pressure 138/73 105/60 Pulse Oximetry 95 95 Oxygen Delivery Method Room Air Room Air BMI result Body Mass Index 26.3 Labs 10/13/22 06:26 Medications Medications Current Medications Acetaminophen (Acetaminophen 325 Mg Tablet) 650 mg PO Q6H PRN PRN Reason: Headache/Pain Mild Scale (1-3) Last Admin: 11/06/22 08:20 Dose: 650 mg Al Hydroxide/Mg Hydroxide (Magnesium Hydrox/Alum Hydrox 30 Ml Oral.Susp) 30 ml PO Q6H PRN PRN Reason: Heartburn/Nausea Donepezil HCl (Donepezil Hcl 10 Mg Tablet) 10 mg PO BEDTIME [facility] Last Admin: 11/05/22 20:19 Dose: 10 mg Hydroxyzine HCl (Hydroxyzine Hcl 25 Mg Tablet) 25 mg PO Q6H PRN PRN Reason: Anxiety Last Admin: 11/02/22 00:20 Dose: 25 mg Magnesium Hydroxide (Milk Of Magnesia 30 Ml Oral.Susp) 30 ml PO DAILY PRN PRN Reason: Constipation Memantine (Memantine Hcl 5 Mg Tablet) 5 mg PO BID [facility] Last Admin: 11/06/22 08:20 Dose: 5 mg Olanzapine (Olanzapine 2.5 Mg Tablet) 2.5 mg PO TID PRN PRN Reason: agitation Olanzapine (Olanzapine 10 Mg Tablet) 10 mg PO BEDTIME [facility] Last Admin: 11/05/22 20:19 Dose: 10 mg Trazodone HCl (Trazodone Hcl 50 Mg Tablet) 50 mg PO BEDTIME PRN PRN Reason: Insomnia Last Admin: 11/04/22 20:35 Dose: 50 mg Allergies Allergies Allergy/AdvReac Type Severity Reaction Status Date / Time pollen extracts Allergy Unknown unknown Verified 04/21/22 14:56 latex Allergy Rash Verified 10/31/22 18:30 Assessment & Plan Assessment & Plan (1) Bipolar disorder, now depressed: Status: Acute Code(s): F31.30 - Bipolar disorder, current episode depressed, mild or moderate severity, unspecified (2) Cognitive impairment: Status: Acute Code(s): R41.89 - Other symptoms and signs involving cognitive functions and awareness Plan 82 year old male with history hyperlipidemia, tubular adenoma colon (last colonoscopy 12/21), BPH, chronic normocytic anemia, osteoarthritis shoulders and hips s/p b/l hip arthroplasty, chronic low back pain with lumbar stenosis, depression, hx rotator cuff tear, actinic keratosis, and atypical melanocytic hyperplasia admitted to geriatric psychiatry from [facility] with consult placed to medical hospitalist service for medical H&P. 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 Can use ibuprofen 600mg q6h prn as well if topical diclofenac unavailable. #Chronic left hip pain -per ED provider note at [facility], patient foot got stuck in a hole several months ago and fell onto the left hip. Subsequent imaging studies including x-ray of the hip/pelvis and CT of the pelvis are negative for fracture -Pain management as above -outpt follow up Pt refused physical extensive. Extensive review of prior note and records from [facility] conducted as noted above. Plan 1. Gather collateral information. His niece called and she provide more collateral information to the protective services social worker. Currently the patient is homeless and he is unable to take care of himself. We had to filed for Section 7 and 8 since the patient refused to sign the conditional voluntary. 2. Continue with Zyprexa at bedtime. We are increasing Zyprexa up to 10 mg p.o. q.h.s. in October 27 since the patient had been more intrusive and disinhibited. 3. The occupational therapist did an Hebert test and he scored 3.2, he used to be on 3.6 a few months ago. That means that he will need 24 hour care. We are going to start Aricept to target dementia. So far the patient did not have any side effects still cognitively impaired. 4. Namenda 5 mg p.o. b.i.d. started to target dementia. Reason for continued inpatient stay Substantial Risk for: inability to function, rapid decompensation and med/psych decompensation Time Spent With Patient Time: Total time managing care of this patient today ____ minutes.
[2022-11-06 18:00] VITALS: BP 122/73; PULSE 69; RESP 18; TEMP 36.3; O2SAT 96
[2022-11-06] MEDS: OLANZapine 10 MG TABLET PO (21:59)
[2022-11-06] MEDS: Donepezil HCl 10 MG TABLET PO (21:59)
[2022-11-07 08:00] VITALS: BP 126/71; PULSE 59; RESP 20; TEMP 36.4; O2SAT 96
[2022-11-07] MEDS: Memantine HCl 5 MG TABLET PO (08:26)
[2022-11-07] MEDS: Memantine HCl 10 MG TABLET PO ×2 (09:32→20:38)
--- NOTE | 2022-11-07 09:46 | P.PNPSI_ITS ---
Subjective Subjective Date of Service: 11/07/22 Reason For Visit: F31.9, F43.25 Subjective Notes: Section 7 and Section 8 Interim History: The nursing staff reported the patient had been more relaxed, less impulsive. He slept 6 or 7 hours. The social worker delinquency prevention spoke with her knees any and she wants to be the guardian. On interview the patient denies new symptoms, we decided to increase Namenda to 10 mg p.o. b.i.d. to target dementia. Mental Status Exam Mental Status Exam Patient Appearance: Unkempt Patient Orientation: Person and Situation Level of Consciousness: Awake and Appropriate Patient Behavior: Guarded and Passive Mood Description: Calm Affect Description: Labile Patient Cognition Impaired: Yes Ability to Follow Directions: Good Speech Pattern: Clear Hallucinations: None Delusions: Not Present Thought Process: Illogical Thought Content: positive for [place] and positive for Poverty of Content Judgement: Poor Diagnostics Vital Signs (24Hr): Vital Signs - 24 hr 11/06/22 18:00 11/07/22 08:00 Temperature 97.3 F 97.5 F Pulse Rate 69 59 Respiratory Rate 18 20 Blood Pressure 122/73 126/71 Pulse Oximetry 96 96 Oxygen Delivery Method Room Air Room Air BMI result Body Mass Index 26.3 Labs 10/13/22 06:26 Medications Medications Current Medications Acetaminophen (Acetaminophen 325 Mg Tablet) 650 mg PO Q6H PRN PRN Reason: Headache/Pain Mild Scale (1-3) Last Admin: 11/06/22 08:20 Dose: 650 mg Al Hydroxide/Mg Hydroxide (Magnesium Hydrox/Alum Hydrox 30 Ml Oral.Susp) 30 ml PO Q6H PRN PRN Reason: Heartburn/Nausea Donepezil HCl (Donepezil Hcl 10 Mg Tablet) 10 mg PO BEDTIME [facility] Last Admin: 11/06/22 21:59 Dose: 10 mg Hydroxyzine HCl (Hydroxyzine Hcl 25 Mg Tablet) 25 mg PO Q6H PRN PRN Reason: Anxiety Last Admin: 11/02/22 00:20 Dose: 25 mg Magnesium Hydroxide (Milk Of Magnesia 30 Ml Oral.Susp) 30 ml PO DAILY PRN PRN Reason: Constipation Memantine (Memantine Hcl 10 Mg Tablet) 10 mg PO BID [facility] Last Admin: 11/07/22 09:32 Dose: 5 mg Olanzapine (Olanzapine 2.5 Mg Tablet) 2.5 mg PO TID PRN PRN Reason: agitation Olanzapine (Olanzapine 10 Mg Tablet) 10 mg PO BEDTIME [facility] Last Admin: 11/06/22 21:59 Dose: 10 mg Trazodone HCl (Trazodone Hcl 50 Mg Tablet) 50 mg PO BEDTIME PRN PRN Reason: Insomnia Last Admin: 11/04/22 20:35 Dose: 50 mg Allergies Allergies Allergy/AdvReac Type Severity Reaction Status Date / Time pollen extracts Allergy Unknown unknown Verified 04/21/22 14:56 latex Allergy Rash Verified 10/31/22 18:30 Assessment & Plan Assessment & Plan (1) Bipolar disorder, now depressed: Status: Acute Code(s): F31.30 - Bipolar disorder, current episode depressed, mild or moderate severity, unspecified (2) Cognitive impairment: Status: Acute Code(s): R41.89 - Other symptoms and signs involving cognitive functions and awareness Plan 82 year old male with history hyperlipidemia, tubular adenoma colon (last colonoscopy 12/21), BPH, chronic normocytic anemia, osteoarthritis shoulders and hips s/p b/l hip arthroplasty, chronic low back pain with lumbar stenosis, depression, hx rotator cuff tear, actinic keratosis, and atypical melanocytic hyperplasia admitted to geriatric psychiatry from [facility] with consult placed to medical hospitalist service for medical H&P. 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 Can use ibuprofen 600mg q6h prn as well if topical diclofenac unavailable. #Chronic left hip pain -per ED provider note at [facility], patient foot got stuck in a hole several months ago and fell onto the left hip. Subsequent imaging studies including x-ray of the hip/pelvis and CT of the pelvis are negative for fracture -Pain management as above -outpt follow up Pt refused physical extensive. Extensive review of prior note and records from [facility] conducted as noted above. Plan 1. Gather collateral information. His niece called and she provide more collateral information to the social worker delinquency prevention. Currently the patient is homeless and he is unable to take care of himself. We had to filed for Section 7 and 8 since the patient refused to sign the conditional voluntary. 2. Continue with Zyprexa at bedtime. We are increasing Zyprexa up to 10 mg p.o. q.h.s. in October 27 since the patient had been more intrusive and disinhibited. 3. The occupational therapist did an Hebert test and he scored 3.2, he used to be on 3.6 a few months ago. That means that he will need 24 hour care. We are going to start Aricept to target dementia. So far the patient did not have any side effects still cognitively impaired. 4. Namenda 5 mg p.o. b.i.d. started to target dementia. It was increased up to 10 mg p.o. b.i.d. most . 5. Filing for guardianship. Reason for continued inpatient stay Substantial Risk for: inability to function, rapid decompensation and med/psych decompensation Time Spent With Patient Time: Total time managing care of this patient today _20___ minutes.
[2022-11-07 17:50] VITALS: BP 117/71; PULSE 69; RESP 18; TEMP 36.8; O2SAT 97
[2022-11-07] MEDS: OLANZapine 10 MG TABLET PO (20:37)
[2022-11-07] MEDS: Donepezil HCl 10 MG TABLET PO (20:40)
[2022-11-08 07:00] VITALS: BMI 26.7
[2022-11-08 08:00] VITALS: BP 124/72; PULSE 69; RESP 18; TEMP 36.8; O2SAT 98
[2022-11-08] MEDS: Memantine HCl 10 MG TABLET PO ×2 (10:29→20:29)
--- NOTE | 2022-11-08 11:01 | P.PNPSI_ITS ---
Subjective Subjective Date of Service: 11/08/22 Reason For Visit: F31.9, F43.25 Subjective Notes: Section 7 and Section 8 Review of Systems The nursing staff reported no changes in his mental status he remains pleasantly confused fully compliant with treatment. The clinical social work aide reported they are waiting for placement in guardianship. Apparently our manager assurance Jakub Biggs her trying to get a guardianship with a [employer] guardian with a local hog worker. On interview the patient remains pleasantly confused asking to go to the dentist and I explained that we do not have this service at the hospital. Mental Status Exam Mental Status Exam Patient Appearance: Unkempt Patient Orientation: Person and Situation Level of Consciousness: Awake and Appropriate Patient Behavior: Guarded and Passive Mood Description: Withdrawn Affect Description: Constricted Patient Cognition Impaired: Yes Ability to Follow Directions: Good Speech Pattern: Clear Hallucinations: None Delusions: Not Present Thought Process: Illogical, Distracted and Slowed Thinking Thought Content: positive for [place] and positive for Circumstantial Judgement: Fair Diagnostics Vital Signs (24Hr): Vital Signs - 24 hr 11/07/22 17:50 Temperature 98.2 F Pulse Rate 69 Respiratory Rate 18 Blood Pressure 117/71 Pulse Oximetry 97 Oxygen Delivery Method Room Air BMI result Body Mass Index 26.3 Labs 10/13/22 06:26 Medications Medications Current Medications Acetaminophen (Acetaminophen 325 Mg Tablet) 650 mg PO Q6H PRN PRN Reason: Headache/Pain Mild Scale (1-3) Last Admin: 11/06/22 08:20 Dose: 650 mg Al Hydroxide/Mg Hydroxide (Magnesium Hydrox/Alum Hydrox 30 Ml Oral.Susp) 30 ml PO Q6H PRN PRN Reason: Heartburn/Nausea Donepezil HCl (Donepezil Hcl 10 Mg Tablet) 10 mg PO BEDTIME [facility] Last Admin: 11/07/22 20:40 Dose: 10 mg Hydroxyzine HCl (Hydroxyzine Hcl 25 Mg Tablet) 25 mg PO Q6H PRN PRN Reason: Anxiety Last Admin: 11/02/22 00:20 Dose: 25 mg Magnesium Hydroxide (Milk Of Magnesia 30 Ml Oral.Susp) 30 ml PO DAILY PRN PRN Reason: Constipation Memantine (Memantine Hcl 10 Mg Tablet) 10 mg PO BID [facility] Last Admin: 11/08/22 10:29 Dose: 10 mg Olanzapine (Olanzapine 2.5 Mg Tablet) 2.5 mg PO TID PRN PRN Reason: agitation Olanzapine (Olanzapine 10 Mg Tablet) 10 mg PO BEDTIME [facility] Last Admin: 11/07/22 20:37 Dose: 10 mg Trazodone HCl (Trazodone Hcl 50 Mg Tablet) 50 mg PO BEDTIME PRN PRN Reason: Insomnia Last Admin: 11/04/22 20:35 Dose: 50 mg Allergies Allergies Allergy/AdvReac Type Severity Reaction Status Date / Time pollen extracts Allergy Unknown unknown Verified 04/21/22 14:56 latex Allergy Rash Verified 10/31/22 18:30 Assessment & Plan Assessment & Plan (1) Bipolar disorder, now depressed: Status: Acute Code(s): F31.30 - Bipolar disorder, current episode depressed, mild or moderate severity, unspecified (2) Cognitive impairment: Status: Acute Code(s): R41.89 - Other symptoms and signs involving cognitive functions and awareness Plan 82 year old male with history hyperlipidemia, tubular adenoma colon (last colonoscopy 12/21), BPH, chronic normocytic anemia, osteoarthritis shoulders and hips s/p b/l hip arthroplasty, chronic low back pain with lumbar stenosis, depression, hx rotator cuff tear, actinic keratosis, and atypical melanocytic hyperplasia admitted to geriatric psychiatry from [facility] with consult placed to medical hospitalist service for medical H&P. 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 Can use ibuprofen 600mg q6h prn as well if topical diclofenac unavailable. #Chronic left hip pain -per ED provider note at [facility], patient foot got stuck in a hole several months ago and fell onto the left hip. Subsequent imaging studies including x-ray of the hip/pelvis and CT of the pelvis are negative for fracture -Pain management as above -outpt follow up Pt refused physical extensive. Extensive review of prior note and records from [facility] conducted as noted above. Plan 1. Gather collateral information. His niece called and she provide more collateral information to the clinical social work aide. Currently the patient is homeless and he is unable to take care of himself. We had to filed for Section 7 and 8 since the patient refused to sign the conditional voluntary. 2. Continue with Zyprexa at bedtime. We are increasing Zyprexa up to 10 mg p.o. q.h.s. in October 27 since the patient had been more intrusive and disinhibited. 3. The occupational therapist did an Hebert test and he scored 3.2, he used to be on 3.6 a few months ago. That means that he will need 24 hour care. We are going to start Aricept to target dementia. So far the patient did not have any side effects still cognitively impaired. 4. Namenda 5 mg p.o. b.i.d. started to target dementia. It was increased up to 10 mg p.o. b.i.d. 5. Filing for guardianship. Reason for continued inpatient stay Substantial Risk for: inability to function, rapid decompensation and med/psych decompensation Time Spent With Patient Time: Total time managing care of this patient today __20__ minutes.
[2022-11-08] MEDS: Acetaminophen 325 MG TABLET 650 MG PO (12:14)
[2022-11-08 18:00] VITALS: BP 113/69; PULSE 72; RESP 18; TEMP 36.3; O2SAT 95
[2022-11-08] MEDS: OLANZapine 10 MG TABLET PO (20:29)
[2022-11-08] MEDS: Donepezil HCl 10 MG TABLET PO (20:29)
[2022-11-08] MEDS: traZODone HCL 50 MG TABLET PO (20:29)
[2022-11-09] MEDS: Memantine HCl 10 MG TABLET PO ×2 (10:44→20:43)
[2022-11-09] MEDS: Acetaminophen 325 MG TABLET 650 MG PO ×2 (12:00→20:43)
--- NOTE | 2022-11-09 12:38 | P.PNPSI_ITS ---
Subjective Subjective Date of Service: 11/09/22 Reason For Visit: F31.9, F43.25 Subjective Notes: Section 7 and Section 8 Interim History: The nursing staff reported the patient has been pleasant and social compliant with medications. On interview he remains pleasantly confused, he was requesting for dentist appointment I explained him that we do not provide this service in the hospital. The social services specialist reported that we have already file for guardianship. Mental Status Exam Mental Status Exam Patient Appearance: Unkempt Patient Orientation: Person and Situation Level of Consciousness: Awake and Appropriate Patient Behavior: Guarded and Passive Mood Description: Withdrawn Affect Description: Constricted Patient Cognition Impaired: Yes Ability to Follow Directions: Good Speech Pattern: Clear Hallucinations: None Delusions: Not Present Thought Process: Distracted Thought Content: positive for [place] and positive for Poverty of Content Judgement: Fair Diagnostics Vital Signs (24Hr): Vital Signs - 24 hr 11/08/22 18:00 Temperature 97.3 F Pulse Rate 72 Respiratory Rate 18 Blood Pressure 113/69 Pulse Oximetry 95 Oxygen Delivery Method Room Air BMI result Body Mass Index 26.7 Labs 10/13/22 06:26 Medications Medications Current Medications Acetaminophen (Acetaminophen 325 Mg Tablet) 650 mg PO Q6H PRN PRN Reason: Headache/Pain Mild Scale (1-3) Last Admin: 11/09/22 12:00 Dose: 650 mg Al Hydroxide/Mg Hydroxide (Magnesium Hydrox/Alum Hydrox 30 Ml Oral.Susp) 30 ml PO Q6H PRN PRN Reason: Heartburn/Nausea Donepezil HCl (Donepezil Hcl 10 Mg Tablet) 10 mg PO BEDTIME [facility] Last Admin: 11/08/22 20:29 Dose: 10 mg Hydroxyzine HCl (Hydroxyzine Hcl 25 Mg Tablet) 25 mg PO Q6H PRN PRN Reason: Anxiety Last Admin: 11/02/22 00:20 Dose: 25 mg Magnesium Hydroxide (Milk Of Magnesia 30 Ml Oral.Susp) 30 ml PO DAILY PRN PRN Reason: Constipation Memantine (Memantine Hcl 10 Mg Tablet) 10 mg PO BID [facility] Last Admin: 11/09/22 10:44 Dose: 10 mg Olanzapine (Olanzapine 2.5 Mg Tablet) 2.5 mg PO TID PRN PRN Reason: agitation Olanzapine (Olanzapine 10 Mg Tablet) 10 mg PO BEDTIME [facility] Last Admin: 11/08/22 20:29 Dose: 10 mg Trazodone HCl (Trazodone Hcl 50 Mg Tablet) 50 mg PO BEDTIME PRN PRN Reason: Insomnia Last Admin: 11/08/22 20:29 Dose: 50 mg Allergies Allergies Allergy/AdvReac Type Severity Reaction Status Date / Time pollen extracts Allergy Unknown unknown Verified 04/21/22 14:56 latex Allergy Rash Verified 10/31/22 18:30 Assessment & Plan Assessment & Plan (1) Bipolar disorder, now depressed: Status: Acute Code(s): F31.30 - Bipolar disorder, current episode depressed, mild or moderate severity, unspecified (2) Cognitive impairment: Status: Acute Code(s): R41.89 - Other symptoms and signs involving cognitive functions and awareness Plan 82 year old male with history hyperlipidemia, tubular adenoma colon (last colonoscopy 12/21), BPH, chronic normocytic anemia, osteoarthritis shoulders and hips s/p b/l hip arthroplasty, chronic low back pain with lumbar stenosis, depression, hx rotator cuff tear, actinic keratosis, and atypical melanocytic hyperplasia admitted to geriatric psychiatry from [facility] with consult placed to medical hospitalist service for medical H&P. 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 Can use ibuprofen 600mg q6h prn as well if topical diclofenac unavailable. #Chronic left hip pain -per ED provider note at [facility], patient foot got stuck in a hole several months ago and fell onto the left hip. Subsequent imaging studies including x-ray of the hip/pelvis and CT of the pelvis are negative for fracture -Pain management as above -outpt follow up Pt refused physical extensive. Extensive review of prior note and records from [facility] conducted as noted above. Plan 1. Gather collateral information. His niece called and she provide more collateral information to the social services specialist. Currently the patient is homeless and he is unable to take care of himself. We had to filed for Section 7 and 8 since the patient refused to sign the conditional voluntary. 2. Continue with Zyprexa at bedtime. We are increasing Zyprexa up to 10 mg p.o. q.h.s. in October 27 since the patient had been more intrusive and disinhibited. 3. The occupational therapist did an Hebert test and he scored 3.2, he used to be on 3.6 a few months ago. That means that he will need 24 hour care. We are going to start Aricept to target dementia. So far the patient did not have any side effects still cognitively impaired. 4. Namenda 5 mg p.o. b.i.d. started to target dementia. It was increased up to 10 mg p.o. b.i.d. 5. Filing for guardianship. Reason for continued inpatient stay Substantial Risk for: inability to function, rapid decompensation and med/psych decompensation Time Spent With Patient Time: Total time managing care of this patient today __20__ minutes.
[2022-11-09 18:00] VITALS: BP 110/65; PULSE 73; RESP 18; TEMP 36.5; O2SAT 97
[2022-11-09] MEDS: OLANZapine 10 MG TABLET PO (20:43)
[2022-11-09] MEDS: Donepezil HCl 10 MG TABLET PO (20:43)
[2022-11-09] MEDS: traZODone HCL 50 MG TABLET PO (20:43)
--- NOTE | 2022-11-09 20:50 | P.EN_ITS ---
Event Note Date of Service: 11/09/22 Event Note: Pt with osteoarthritis, chronic low back pain, and chronic left hip pain who is seen for evaluation of back pain. Pt evaluated in room where he was seen ambulating from bathroom to bed. Patient states that he is feeling and walking ?good?. Reports he occasionally gets left hip pain but currently feeling OK. Does not complain of any back pain. Pt states his wishes to walk and exercise more so he can play basketball, baseball, and football. He also claims he occ asionally gets sciatica but then shows how he uses leg extension exercises to reduce any pain he keep his legs in shape. Would recommend continue to treating conservatively with Tylenol. Could consider adding lidocaine patch to back p.r.n. for pain flare-ups. Will sign off for now. Time Spent With Patient Time: Total time managing care of this patient today ____ minutes.
--- NOTE | 2022-11-10 07:46 | HO.PSYCHPN ---
Subjective Subjective Date of Service: 11/10/22 Reason For Visit: F31.9, F43.25 Subjective Notes: Section 7 and Section 8 Interim History: The nursing staff reported the patient had been sarcastic at times but medication and meal compliant. Yesterday he was seen taking nodes from the newspaper and from interactions with staff. He took p.r.n. and slept well last night. On interview the patient remains pleasantly confused. Mental Status Exam Mental Status Exam Patient Appearance: Appropriate Patient Orientation: Person and Situation Level of Consciousness: Awake and Appropriate Patient Behavior: Guarded and Passive Mood Description: Calm Affect Description: Constricted Patient Cognition Impaired: Yes Ability to Follow Directions: Fair Speech Pattern: Clear Hallucinations: None Delusions: Not Present Thought Process: Distracted and Slowed Thinking Thought Content: positive for [place], positive for Perseveration and positive for Poverty of Content Judgement: Poor Diagnostics Vital Signs (24Hr): Vital Signs - 24 hr 11/09/22 18:00 Temperature 97.7 F Pulse Rate 73 Respiratory Rate 18 Blood Pressure 110/65 Pulse Oximetry 97 Oxygen Delivery Method Room Air BMI result Body Mass Index 26.7 Labs 10/13/22 06:26 Medications Medications Current Medications Acetaminophen (Acetaminophen 325 Mg Tablet) 650 mg PO Q6H PRN PRN Reason: Headache/Pain Mild Scale (1-3) Last Admin: 11/09/22 20:43 Dose: 650 mg Al Hydroxide/Mg Hydroxide (Magnesium Hydrox/Alum Hydrox 30 Ml Oral.Susp) 30 ml PO Q6H PRN PRN Reason: Heartburn/Nausea Donepezil HCl (Donepezil Hcl 10 Mg Tablet) 10 mg PO BEDTIME [facility] Last Admin: 11/09/22 20:43 Dose: 10 mg Hydroxyzine HCl (Hydroxyzine Hcl 25 Mg Tablet) 25 mg PO Q6H PRN PRN Reason: Anxiety Last Admin: 11/02/22 00:20 Dose: 25 mg Magnesium Hydroxide (Milk Of Magnesia 30 Ml Oral.Susp) 30 ml PO DAILY PRN PRN Reason: Constipation Memantine (Memantine Hcl 10 Mg Tablet) 10 mg PO BID [facility] Last Admin: 11/09/22 20:43 Dose: 10 mg Olanzapine (Olanzapine 2.5 Mg Tablet) 2.5 mg PO TID PRN PRN Reason: agitation Olanzapine (Olanzapine 10 Mg Tablet) 10 mg PO BEDTIME [facility] Last Admin: 11/09/22 20:43 Dose: 10 mg Trazodone HCl (Trazodone Hcl 50 Mg Tablet) 50 mg PO BEDTIME PRN PRN Reason: Insomnia Last Admin: 11/09/22 20:43 Dose: 50 mg Allergies Allergies Allergy/AdvReac Type Severity Reaction Status Date / Time pollen extracts Allergy Unknown unknown Verified 04/21/22 14:56 latex Allergy Rash Verified 10/31/22 18:30 Assessment & Plan Assessment & Plan (1) Bipolar disorder, now depressed: Status: Acute Code(s): F31.30 - Bipolar disorder, current episode depressed, mild or moderate severity, unspecified (2) Cognitive impairment: Status: Acute Code(s): R41.89 - Other symptoms and signs involving cognitive functions and awareness Plan 82 year old male with history hyperlipidemia, tubular adenoma colon (last colonoscopy 12/21), BPH, chronic normocytic anemia, osteoarthritis shoulders and hips s/p b/l hip arthroplasty, chronic low back pain with lumbar stenosis, depression, hx rotator cuff tear, actinic keratosis, and atypical melanocytic hyperplasia admitted to geriatric psychiatry from [facility] with consult placed to medical hospitalist service for medical H&P. 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 Can use ibuprofen 600mg q6h prn as well if topical diclofenac unavailable. #Chronic left hip pain -per ED provider note at [facility], patient foot got stuck in a hole several months ago and fell onto the left hip. Subsequent imaging studies including x-ray of the hip/pelvis and CT of the pelvis are negative for fracture -Pain management as above -outpt follow up Pt refused physical extensive. Extensive review of prior note and records from [facility] conducted as noted above. Plan 1. Gather collateral information. His niece called and she provide more collateral information to the oncology social worker. Currently the patient is homeless and he is unable to take care of himself. We had to filed for Section 7 and 8 since the patient refused to sign the conditional voluntary. 2. Continue with Zyprexa at bedtime. We are increasing Zyprexa up to 10 mg p.o. q.h.s. in October 27 since the patient had been more intrusive and disinhibited. 3. The occupational therapist did an Hebert test and he scored 3.2, he used to be on 3.6 a few months ago. That means that he will need 24 hour care. We are going to start Aricept to target dementia. So far the patient did not have any side effects still cognitively impaired. 4. Namenda 5 mg p.o. b.i.d. started to target dementia. It was increased up to 10 mg p.o. b.i.d. 5. Filing for guardianship. Reason for continued inpatient stay Substantial Risk for: inability to function, rapid decompensation and med/psych decompensation Time Spent With Patient Time: Total time managing care of this patient today __20__ minutes.
[2022-11-10] MEDS: Memantine HCl 10 MG TABLET PO ×2 (10:20→19:56)
[2022-11-10] MEDS: Acetaminophen 325 MG TABLET 650 MG PO ×2 (11:41→20:33)
--- NOTE | 2022-11-10 11:44 | PC.NURSE ---
Patient medicated with Tylenol 650 mg for c/o lower back pain 11/08. Will continue to monitor.
[2022-11-10 18:00] VITALS: BP 108/58; PULSE 68; RESP 17; TEMP 36.3; O2SAT 95
[2022-11-10] MEDS: Donepezil HCl 10 MG TABLET PO (19:56)
[2022-11-10] MEDS: OLANZapine 10 MG TABLET PO (19:56)
[2022-11-11 06:00] VITALS: BP 152/85; PULSE 84; RESP 16; O2SAT 96
[2022-11-11] MEDS: Memantine HCl 10 MG TABLET PO ×2 (08:08→20:47)
[2022-11-11] MEDS: Acetaminophen 325 MG TABLET 650 MG PO (08:15)
--- NOTE | 2022-11-11 09:14 | HO.PSYCHPN ---
Subjective Subjective Date of Service: 11/11/22 Reason For Visit: F31.9, F43.25 Subjective Notes: Section 7 and Section 8 Interim History: The nursing staff reported the patient is alert on only oriented to self. He has been out for medications and food. He slept well last night and yesterday he was very hypoactive and sleeping during the day. On interview the patient remains pleasantly confused he was asking for a dental appointment and I explained that we do not provide that service in the hospital that he will need to follow-up as an outpatient. Remains perseverative on been discharged, unable to remember the conversations we had before about discharge. Mental Status Exam Mental Status Exam Patient Appearance: Appropriate and Unkempt Patient Orientation: Person and Situation Level of Consciousness: Awake and Appropriate Patient Behavior: Guarded and Passive Mood Description: Withdrawn Affect Description: Constricted Patient Cognition Impaired: Yes Ability to Follow Directions: Fair Speech Pattern: Clear Hallucinations: None Delusions: Not Present Thought Process: Distracted and Evasive Thought Content: positive for [place] and positive for Poverty of Content Judgement: Fair Diagnostics Vital Signs (24Hr): Vital Signs - 24 hr 11/10/22 18:00 11/11/22 06:00 Temperature 97.3 F Pulse Rate 68 84 Respiratory Rate 17 16 Blood Pressure 108/58 L 152/85 H Pulse Oximetry 95 96 Oxygen Delivery Method Room Air Room Air BMI result Body Mass Index 26.7 Labs 10/13/22 06:26 Medications Medications Current Medications Acetaminophen (Acetaminophen 325 Mg Tablet) 650 mg PO Q6H PRN PRN Reason: Headache/Pain Mild Scale (1-3) Last Admin: 11/11/22 08:15 Dose: 650 mg Al Hydroxide/Mg Hydroxide (Magnesium Hydrox/Alum Hydrox 30 Ml Oral.Susp) 30 ml PO Q6H PRN PRN Reason: Heartburn/Nausea Donepezil HCl (Donepezil Hcl 10 Mg Tablet) 10 mg PO BEDTIME [facility] Last Admin: 11/10/22 19:56 Dose: 10 mg Hydroxyzine HCl (Hydroxyzine Hcl 25 Mg Tablet) 25 mg PO Q6H PRN PRN Reason: Anxiety Last Admin: 11/02/22 00:20 Dose: 25 mg Magnesium Hydroxide (Milk Of Magnesia 30 Ml Oral.Susp) 30 ml PO DAILY PRN PRN Reason: Constipation Memantine (Memantine Hcl 10 Mg Tablet) 10 mg PO BID [facility] Last Admin: 11/11/22 08:08 Dose: 10 mg Olanzapine (Olanzapine 2.5 Mg Tablet) 2.5 mg PO TID PRN PRN Reason: agitation Olanzapine (Olanzapine 10 Mg Tablet) 10 mg PO BEDTIME [facility] Last Admin: 11/10/22 19:56 Dose: 10 mg Trazodone HCl (Trazodone Hcl 50 Mg Tablet) 50 mg PO BEDTIME PRN PRN Reason: Insomnia Last Admin: 11/09/22 20:43 Dose: 50 mg Allergies Allergies Allergy/AdvReac Type Severity Reaction Status Date / Time pollen extracts Allergy Unknown unknown Verified 04/21/22 14:56 latex Allergy Rash Verified 10/31/22 18:30 Assessment & Plan Assessment & Plan (1) Bipolar disorder, now depressed: Status: Acute Code(s): F31.30 - Bipolar disorder, current episode depressed, mild or moderate severity, unspecified (2) Cognitive impairment: Status: Acute Code(s): R41.89 - Other symptoms and signs involving cognitive functions and awareness Plan 82 year old male with history hyperlipidemia, tubular adenoma colon (last colonoscopy 12/21), BPH, chronic normocytic anemia, osteoarthritis shoulders and hips s/p b/l hip arthroplasty, chronic low back pain with lumbar stenosis, depression, hx rotator cuff tear, actinic keratosis, and atypical melanocytic hyperplasia admitted to geriatric psychiatry from [facility] with consult placed to medical hospitalist service for medical H&P. 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 Can use ibuprofen 600mg q6h prn as well if topical diclofenac unavailable. #Chronic left hip pain -per ED provider note at [facility], patient foot got stuck in a hole several months ago and fell onto the left hip. Subsequent imaging studies including x-ray of the hip/pelvis and CT of the pelvis are negative for fracture -Pain management as above -outpt follow up Pt refused physical extensive. Extensive review of prior note and records from [facility] conducted as noted above. Plan 1. Gather collateral information. His niece called and she provide more collateral information to the manager social media. Currently the patient is homeless and he is unable to take care of himself. We had to filed for Section 7 and 8 since the patient refused to sign the conditional voluntary. 2. Continue with Zyprexa at bedtime. We are increasing Zyprexa up to 10 mg p.o. q.h.s. in October 27 since the patient had been more intrusive and disinhibited. 3. The occupational therapist did an Hebert test and he scored 3.2, he used to be on 3.6 a few months ago. That means that he will need 24 hour care. We are going to start Aricept to target dementia. So far the patient did not have any side effects still cognitively impaired. 4. Namenda 5 mg p.o. b.i.d. started to target dementia. It was increased up to 10 mg p.o. b.i.d. 5. Filing for guardianship. Reason for continued inpatient stay Substantial Risk for: inability to function, rapid decompensation and med/psych decompensation Time Spent With Patient Time: Total time managing care of this patient today __20__ minutes.
[2022-11-11] MEDS: OLANZapine 2.5 MG TABLET PO (09:52)
[2022-11-11 17:39] VITALS: BP 109/69; PULSE 67; RESP 18; TEMP 36.3; O2SAT 96
--- NOTE | 2022-11-11 17:57 | PC.NURSE ---
Patient exhibiting agitation as well as perseverating over date of d/c. Medicated with Zyprexa 2.5 mg PRN with minimal effect. Patient redirectable.
[2022-11-11] MEDS: OLANZapine 10 MG TABLET PO (20:47)
[2022-11-11] MEDS: Donepezil HCl 10 MG TABLET PO (20:47)
[2022-11-12] MEDS: Memantine HCl 10 MG TABLET PO ×2 (09:40→20:07)
[2022-11-12 09:48] VITALS: BP 142/81; PULSE 60; RESP 18; TEMP 36.6; O2SAT 97
--- NOTE | 2022-11-12 11:03 | P.PNPSI_ITS ---
Subjective Subjective Date of Service: 11/12/22 Reason For Visit: F31.9, F43.25 Subjective Notes: Section 7 and Section 8 Interim History: The nursing staff reported no changes in the patient's behavior, he had being mostly isolative and very perseverative. On interview the patient denies new symptoms he states that he wants to go and he cannot remember that his friends cannot take care him back. We are finding for guardianship. Mental Status Exam Mental Status Exam Patient Appearance: Appropriate Patient Orientation: Person and Situation Level of Consciousness: Awake and Appropriate Patient Behavior: Guarded and Passive Mood Description: Calm Affect Description: Constricted Patient Cognition Impaired: Yes Ability to Follow Directions: Good Speech Pattern: Clear Hallucinations: None Delusions: Not Present Thought Process: Illogical, Distracted and Slowed Thinking Thought Content: positive for [place], positive for [place]sever[place] and positive for Poverty of Content Judgement: Fair Diagnostics Vital Signs (24Hr): Vital Signs - 24 hr 11/11/22 17:39 11/12/22 09:48 Temperature 97.3 F 97.9 F Pulse Rate 67 60 Respiratory Rate 18 18 Blood Pressure 109/69 142/81 H Pulse Oximetry 96 97 Oxygen Delivery Method Room Air Room Air BMI result Body Mass Index 26.7 Labs 10/13/22 06:26 Medications Medications Current Medications Acetaminophen (Acetaminophen 325 Mg Tablet) 650 mg PO Q6H PRN PRN Reason: Headache/Pain Mild Scale (1-3) Last Admin: 11/11/22 08:15 Dose: 650 mg Al Hydroxide/Mg Hydroxide (Magnesium Hydrox/Alum Hydrox 30 Ml Oral.Susp) 30 ml PO Q6H PRN PRN Reason: Heartburn/Nausea Donepezil HCl (Donepezil Hcl 10 Mg Tablet) 10 mg PO BEDTIME [facility] Last Admin: 11/11/22 20:47 Dose: 10 mg Hydroxyzine HCl (Hydroxyzine Hcl 25 Mg Tablet) 25 mg PO Q6H PRN PRN Reason: Anxiety Last Admin: 11/02/22 00:20 Dose: 25 mg Magnesium Hydroxide (Milk Of Magnesia 30 Ml Oral.Susp) 30 ml PO DAILY PRN PRN Reason: Constipation Memantine (Memantine Hcl 10 Mg Tablet) 10 mg PO BID [facility] Last Admin: 11/12/22 09:40 Dose: 10 mg Olanzapine (Olanzapine 2.5 Mg Tablet) 2.5 mg PO TID PRN PRN Reason: agitation Last Admin: 11/11/22 09:52 Dose: 2.5 mg Olanzapine (Olanzapine 10 Mg Tablet) 10 mg PO BEDTIME [facility] Last Admin: 11/11/22 20:47 Dose: 10 mg Trazodone HCl (Trazodone Hcl 50 Mg Tablet) 50 mg PO BEDTIME PRN PRN Reason: Insomnia Last Admin: 11/09/22 20:43 Dose: 50 mg Allergies Allergies Allergy/AdvReac Type Severity Reaction Status Date / Time pollen extracts Allergy Unknown unknown Verified 04/21/22 14:56 latex Allergy Rash Verified 10/31/22 18:30 Assessment & Plan Assessment & Plan (1) Bipolar disorder, now depressed: Status: Acute Code(s): F31.30 - Bipolar disorder, current episode depressed, mild or moderate severity, unspecified (2) Cognitive impairment: Status: Acute Code(s): R41.89 - Other symptoms and signs involving cognitive functions and awareness Plan 82 year old male with history hyperlipidemia, tubular adenoma colon (last colonoscopy 12/21), BPH, chronic normocytic anemia, osteoarthritis shoulders and hips s/p b/l hip arthroplasty, chronic low back pain with lumbar stenosis, depression, hx rotator cuff tear, actinic keratosis, and atypical melanocytic hyperplasia admitted to geriatric psychiatry from [facility] with consult placed to medical hospitalist service for medical H&P. 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 Can use ibuprofen 600mg q6h prn as well if topical diclofenac unavailable. #Chronic left hip pain -per ED provider note at [facility], patient foot got stuck in a hole several months ago and fell onto the left hip. Subsequent imaging studies including x-ray of the hip/pelvis and CT of the pelvis are negative for fracture -Pain management as above -outpt follow up Pt refused physical extensive. Extensive review of prior note and records from [facility] conducted as noted above. Plan 1. Gather collateral information. His niece called and she provide more collateral information to the high school social studies teacher. Currently the patient is homeless and he is unable to take care of himself. We had to filed for Section 7 and 8 since the patient refused to sign the conditional voluntary. 2. Continue with Zyprexa at bedtime. We are increasing Zyprexa up to 10 mg p.o. q.h.s. in October 27 since the patient had been more intrusive and disinhibited. 3. The occupational therapist did an Hebert test and he scored 3.2, he used to be on 3.6 a few months ago. That means that he will need 24 hour care. We are going to start Aricept to target dementia. So far the patient did not have any side effects still cognitively impaired. 4. Namenda 5 mg p.o. b.i.d. started to target dementia. It was increased up to 10 mg p.o. b.i.d. 5. Filing for guardianship. Reason for continued inpatient stay Substantial Risk for: inability to function, rapid decompensation and med/psych decompensation Time Spent With Patient Time: Total time managing care of this patient today _20___ minutes.
[2022-11-12 20:07] VITALS: BP 119/74; PULSE 87; RESP 18; TEMP 35.6; O2SAT 96
[2022-11-12] MEDS: Donepezil HCl 10 MG TABLET PO (20:07)
[2022-11-12] MEDS: OLANZapine 10 MG TABLET PO (20:07)
[2022-11-13 08:00] VITALS: BP 105/63; PULSE 55; RESP 16; TEMP 36.6; O2SAT 95
[2022-11-13] MEDS: Memantine HCl 10 MG TABLET PO ×2 (08:30→20:00)
--- NOTE | 2022-11-13 10:15 | HO.PSYCHPN ---
Subjective Subjective Date of Service: 11/13/22 Reason For Visit: F31.9, F43.25 Subjective Notes: Section 7 and Section 8 Interim History: Nursing staff reported the patient kept himself poorly, disheveled. No change in his mental status. On interview the patient is pleasantly confused, perseverative at times. Mental Status Exam Mental Status Exam Patient Appearance: Unkempt Patient Orientation: Person and Situation Level of Consciousness: Awake and Appropriate Patient Behavior: Guarded and Passive Mood Description: Withdrawn Affect Description: Constricted Patient Cognition Impaired: Yes Ability to Follow Directions: Good Speech Pattern: Clear Hallucinations: None Delusions: Not Present Thought Process: Distracted and Slowed Thinking Thought Content: positive for [place], positive for [place] and positive for Thought Blocking Judgement: Poor Diagnostics Vital Signs (24Hr): Vital Signs - 24 hr 11/12/22 20:07 11/13/22 08:00 Temperature 96.1 F L 97.9 F Pulse Rate 87 55 Respiratory Rate 18 16 Blood Pressure 119/74 105/63 Pulse Oximetry 96 95 Oxygen Delivery Method Room Air Room Air BMI result Body Mass Index 26.7 Labs 10/13/22 06:26 Medications Medications Current Medications Acetaminophen (Acetaminophen 325 Mg Tablet) 650 mg PO Q6H PRN PRN Reason: Headache/Pain Mild Scale (1-3) Last Admin: 11/11/22 08:15 Dose: 650 mg Al Hydroxide/Mg Hydroxide (Magnesium Hydrox/Alum Hydrox 30 Ml Oral.Susp) 30 ml PO Q6H PRN PRN Reason: Heartburn/Nausea Donepezil HCl (Donepezil Hcl 10 Mg Tablet) 10 mg PO BEDTIME [facility] Last Admin: 11/12/22 20:07 Dose: 10 mg Hydroxyzine HCl (Hydroxyzine Hcl 25 Mg Tablet) 25 mg PO Q6H PRN PRN Reason: Anxiety Last Admin: 11/02/22 00:20 Dose: 25 mg Magnesium Hydroxide (Milk Of Magnesia 30 Ml Oral.Susp) 30 ml PO DAILY PRN PRN Reason: Constipation Memantine (Memantine Hcl 10 Mg Tablet) 10 mg PO BID [facility] Last Admin: 11/13/22 08:30 Dose: 10 mg Olanzapine (Olanzapine 2.5 Mg Tablet) 2.5 mg PO TID PRN PRN Reason: agitation Last Admin: 11/11/22 09:52 Dose: 2.5 mg Olanzapine (Olanzapine 10 Mg Tablet) 10 mg PO BEDTIME [facility] Last Admin: 11/12/22 20:07 Dose: 10 mg Trazodone HCl (Trazodone Hcl 50 Mg Tablet) 50 mg PO BEDTIME PRN PRN Reason: Insomnia Last Admin: 11/09/22 20:43 Dose: 50 mg Allergies Allergies Allergy/AdvReac Type Severity Reaction Status Date / Time pollen extracts Allergy Unknown unknown Verified 04/21/22 14:56 latex Allergy Rash Verified 10/31/22 18:30 Assessment & Plan Assessment & Plan (1) Bipolar disorder, now depressed: Status: Acute Code(s): F31.30 - Bipolar disorder, current episode depressed, mild or moderate severity, unspecified (2) Cognitive impairment: Status: Acute Code(s): R41.89 - Other symptoms and signs involving cognitive functions and awareness Plan 82 year old male with history hyperlipidemia, tubular adenoma colon (last colonoscopy 12/21), BPH, chronic normocytic anemia, osteoarthritis shoulders and hips s/p b/l hip arthroplasty, chronic low back pain with lumbar stenosis, depression, hx rotator cuff tear, actinic keratosis, and atypical melanocytic hyperplasia admitted to geriatric psychiatry from [facility] with consult placed to medical hospitalist service for medical H&P. 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 Can use ibuprofen 600mg q6h prn as well if topical diclofenac unavailable. #Chronic left hip pain -per ED provider note at [facility], patient foot got stuck in a hole several months ago and fell onto the left hip. Subsequent imaging studies including x-ray of the hip/pelvis and CT of the pelvis are negative for fracture -Pain management as above -outpt follow up Pt refused physical extensive. Extensive review of prior note and records from [facility] conducted as noted above. Plan 1. Gather collateral information. His niece called and she provide more collateral information to the social services aide. Currently the patient is homeless and he is unable to take care of himself. We had to filed for Section 7 and 8 since the patient refused to sign the conditional voluntary. 2. Continue with Zyprexa at bedtime. We are increasing Zyprexa up to 10 mg p.o. q.h.s. in October 27 since the patient had been more intrusive and disinhibited. 3. The occupational therapist did an Hebert test and he scored 3.2, he used to be on 3.6 a few months ago. That means that he will need 24 hour care. We are going to start Aricept to target dementia. So far the patient did not have any side effects still cognitively impaired. 4. Namenda 5 mg p.o. b.i.d. started to target dementia. It was increased up to 10 mg p.o. b.i.d. 5. Filing for guardianship. Reason for continued inpatient stay Substantial Risk for: inability to function, rapid decompensation and med/psych decompensation Time Spent With Patient Time: Total time managing care of this patient today __20__ minutes.
[2022-11-13 19:40] VITALS: BP 135/78; PULSE 54; RESP 20; TEMP 36.4; O2SAT 95
[2022-11-13] MEDS: OLANZapine 10 MG TABLET PO (20:00)
[2022-11-13] MEDS: Donepezil HCl 10 MG TABLET PO (20:00)
[2022-11-14] MEDS: Acetaminophen 325 MG TABLET 650 MG PO (08:34)
[2022-11-14 08:52] VITALS: BP 119/65; PULSE 63; RESP 18; TEMP 36.7; O2SAT 93
--- NOTE | 2022-11-14 10:39 | HO.PSYCHPN ---
Subjective Subjective Date of Service: 11/14/22 Reason For Visit: F31.9, F43.25 Subjective Notes: Section 7 and Section 8 Interim History: The nursing staff reported the patient slept well he was disease in the afternoon, he called apparently along the legal firm regarding his wish to live. On interview the patient denies new symptoms confused disheveled. Mental Status Exam Mental Status Exam Patient Appearance: Appropriate Patient Orientation: Person and Situation Level of Consciousness: Awake and Appropriate Patient Behavior: Guarded and Passive Mood Description: Withdrawn Affect Description: Constricted Patient Cognition Impaired: Yes Ability to Follow Directions: Good Speech Pattern: Clear Hallucinations: None Delusions: Not Present Thought Process: Distracted and Evasive Thought Content: positive for [place], positive for [place] and positive for Poverty of Content Judgement: Fair Diagnostics Vital Signs (24Hr): Vital Signs - 24 hr 11/13/22 19:40 11/14/22 08:52 Temperature 97.6 F 98.1 F Pulse Rate 54 63 Respiratory Rate 20 18 Blood Pressure 135/78 119/65 Pulse Oximetry 95 93 Oxygen Delivery Method Room Air Room Air BMI result Body Mass Index 26.7 Labs 10/13/22 06:26 Medications Medications Current Medications Acetaminophen (Acetaminophen 325 Mg Tablet) 650 mg PO Q6H PRN PRN Reason: Headache/Pain Mild Scale (1-3) Last Admin: 11/14/22 08:34 Dose: 650 mg Al Hydroxide/Mg Hydroxide (Magnesium Hydrox/Alum Hydrox 30 Ml Oral.Susp) 30 ml PO Q6H PRN PRN Reason: Heartburn/Nausea Donepezil HCl (Donepezil Hcl 10 Mg Tablet) 10 mg PO BEDTIME [facility] Last Admin: 11/13/22 20:00 Dose: 10 mg Hydroxyzine HCl (Hydroxyzine Hcl 25 Mg Tablet) 25 mg PO Q6H PRN PRN Reason: Anxiety Last Admin: 11/02/22 00:20 Dose: 25 mg Magnesium Hydroxide (Milk Of Magnesia 30 Ml Oral.Susp) 30 ml PO DAILY PRN PRN Reason: Constipation Memantine (Memantine Hcl 10 Mg Tablet) 10 mg PO BID [facility] Last Admin: 11/13/22 20:00 Dose: 10 mg Olanzapine (Olanzapine 2.5 Mg Tablet) 2.5 mg PO TID PRN PRN Reason: agitation Last Admin: 11/11/22 09:52 Dose: 2.5 mg Olanzapine (Olanzapine 10 Mg Tablet) 10 mg PO BEDTIME [facility] Last Admin: 11/13/22 20:00 Dose: 10 mg Trazodone HCl (Trazodone Hcl 50 Mg Tablet) 50 mg PO BEDTIME PRN PRN Reason: Insomnia Last Admin: 11/09/22 20:43 Dose: 50 mg Allergies Allergies Allergy/AdvReac Type Severity Reaction Status Date / Time pollen extracts Allergy Unknown unknown Verified 04/21/22 14:56 latex Allergy Rash Verified 10/31/22 18:30 Assessment & Plan Assessment & Plan (1) Bipolar disorder, now depressed: Status: Acute Code(s): F31.30 - Bipolar disorder, current episode depressed, mild or moderate severity, unspecified (2) Cognitive impairment: Status: Acute Code(s): R41.89 - Other symptoms and signs involving cognitive functions and awareness Plan 82 year old male with history hyperlipidemia, tubular adenoma colon (last colonoscopy 12/21), BPH, chronic normocytic anemia, osteoarthritis shoulders and hips s/p b/l hip arthroplasty, chronic low back pain with lumbar stenosis, depression, hx rotator cuff tear, actinic keratosis, and atypical melanocytic hyperplasia admitted to geriatric psychiatry from [facility] with consult placed to medical hospitalist service for medical H&P. 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 Can use ibuprofen 600mg q6h prn as well if topical diclofenac unavailable. #Chronic left hip pain -per ED provider note at [facility], patient foot got stuck in a hole several months ago and fell onto the left hip. Subsequent imaging studies including x-ray of the hip/pelvis and CT of the pelvis are negative for fracture -Pain management as above -outpt follow up Pt refused physical extensive. Extensive review of prior note and records from [facility] conducted as noted above. Plan 1. Gather collateral information. His niece called and she provide more collateral information to the delinquency prevention social worker. Currently the patient is homeless and he is unable to take care of himself. We had to filed for Section 7 and 8 since the patient refused to sign the conditional voluntary. 2. Continue with Zyprexa at bedtime. We are increasing Zyprexa up to 10 mg p.o. q.h.s. in October 27 since the patient had been more intrusive and disinhibited. 3. The occupational therapist did an Hebert test and he scored 3.2, he used to be on 3.6 a few months ago. That means that he will need 24 hour care. We are going to start Aricept to target dementia. So far the patient did not have any side effects still cognitively impaired. 4. Namenda 5 mg p.o. b.i.d. started to target dementia. It was increased up to 10 mg p.o. b.i.d. 5. Filing for guardianship. Reason for continued inpatient stay Substantial Risk for: inability to function, rapid decompensation and med/psych decompensation Time Spent With Patient Time: Total time managing care of this patient today __20__ minutes.
[2022-11-14 19:55] VITALS: BP 100/60; PULSE 69; RESP 16; O2SAT 99
[2022-11-14] MEDS: Memantine HCl 10 MG TABLET PO (20:05)
[2022-11-14] MEDS: OLANZapine 10 MG TABLET PO (20:05)
[2022-11-15 07:00] VITALS: BMI 26.7
[2022-11-15 08:00] VITALS: BP 136/90; PULSE 74; RESP 18; TEMP 36.6; O2SAT 96
[2022-11-15] MEDS: Memantine HCl 10 MG TABLET PO ×2 (08:11→19:51)
--- NOTE | 2022-11-15 14:36 | HO.PSYCHPN ---
Subjective Subjective Date of Service: 11/15/22 Reason For Visit: F31.9, F43.25 Subjective Notes: Section 7 Interim History: Pt declined aricept and namenda. Pt seen in bed. He reports back pain. He agrees to try lidocaine patch and tylenol. He denies SI/HI. He expressed frustration about being here trapped in the hospital He has been visible on the unit. His VS stable, 130/90. Review of Systems Review of Systems Yes Unobtainable due to mental status Mental Status Exam Mental Status Exam Patient Appearance: Appropriate Patient Orientation: Person and Situation Level of Consciousness: Awake and Appropriate Patient Behavior: Guarded and Passive Mood Description: Withdrawn Affect Description: Constricted Patient Cognition Impaired: Yes Ability to Follow Directions: Good Speech Pattern: Clear Diagnostics Vital Signs (24Hr): Vital Signs - 24 hr 11/14/22 19:55 11/15/22 08:00 Temperature 97.9 F Pulse Rate 69 74 Respiratory Rate 16 18 Blood Pressure 100/60 136/90 H Pulse Oximetry 99 96 Oxygen Delivery Method Room Air Room Air BMI result Body Mass Index 26.7 Labs 10/13/22 06:26 Medications Medications Current Medications Acetaminophen (Acetaminophen 325 Mg Tablet) 650 mg PO Q6H PRN PRN Reason: Headache/Pain Mild Scale (1-3) Last Admin: 11/14/22 08:34 Dose: 650 mg Al Hydroxide/Mg Hydroxide (Magnesium Hydrox/Alum Hydrox 30 Ml Oral.Susp) 30 ml PO Q6H PRN PRN Reason: Heartburn/Nausea Donepezil HCl (Donepezil Hcl 10 Mg Tablet) 10 mg PO BEDTIME [facility] Last Admin: 11/14/22 20:17 Dose: Not Given Hydroxyzine HCl (Hydroxyzine Hcl 25 Mg Tablet) 25 mg PO Q6H PRN PRN Reason: Anxiety Last Admin: 11/02/22 00:20 Dose: 25 mg Magnesium Hydroxide (Milk Of Magnesia 30 Ml Oral.Susp) 30 ml PO DAILY PRN PRN Reason: Constipation Memantine (Memantine Hcl 10 Mg Tablet) 10 mg PO BID [facility] Last Admin: 11/15/22 08:11 Dose: 10 mg Olanzapine (Olanzapine 2.5 Mg Tablet) 2.5 mg PO TID PRN PRN Reason: agitation Last Admin: 11/11/22 09:52 Dose: 2.5 mg Olanzapine (Olanzapine 10 Mg Tablet) 10 mg PO BEDTIME [facility] Last Admin: 11/14/22 20:05 Dose: 10 mg Trazodone HCl (Trazodone Hcl 50 Mg Tablet) 50 mg PO BEDTIME PRN PRN Reason: Insomnia Last Admin: 11/09/22 20:43 Dose: 50 mg Allergies Allergies Allergy/AdvReac Type Severity Reaction Status Date / Time pollen extracts Allergy Unknown unknown Verified 04/21/22 14:56 latex Allergy Rash Verified 10/31/22 18:30 Assessment & Plan Assessment & Plan (1) Bipolar disorder, now depressed: Status: Acute Code(s): F31.30 - Bipolar disorder, current episode depressed, mild or moderate severity, unspecified (2) Cognitive impairment: Status: Acute Code(s): R41.89 - Other symptoms and signs involving cognitive functions and awareness Plan 82 year old male with history hyperlipidemia, tubular adenoma colon (last colonoscopy 12/21), BPH, chronic normocytic anemia, osteoarthritis shoulders and hips s/p b/l hip arthroplasty, chronic low back pain with lumbar stenosis, depression, hx rotator cuff tear, actinic keratosis, and atypical melanocytic hyperplasia admitted to geriatric psychiatry from [facility] with consult placed to medical hospitalist service for medical H&P. 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 Can use ibuprofen 600mg q6h prn as well if topical diclofenac unavailable. #Chronic left hip pain -per ED provider note at [facility], patient foot got stuck in a hole several months ago and fell onto the left hip. Subsequent imaging studies including x-ray of the hip/pelvis and CT of the pelvis are negative for fracture -Pain management as above -outpt follow up Pt refused physical extensive. Extensive review of prior note and records from [facility] conducted as noted above. Plan 1. Gather collateral information. His niece called and she provide more collateral information to the long term care social worker. Currently the patient is homeless and he is unable to take care of himself. We had to filed for Section 7 and 8 since the patient refused to sign the conditional voluntary. 2. Continue with Zyprexa at bedtime. We are increasing Zyprexa up to 10 mg p.o. q.h.s. in October 27 since the patient had been more intrusive and disinhibited. 3. The occupational therapist did an Hebert test and he scored 3.2, he used to be on 3.6 a few months ago. That means that he will need 24 hour care. We are going to start Aricept to target dementia. So far the patient did not have any side effects still cognitively impaired. 4. Namenda 5 mg p.o. b.i.d. started to target dementia. It was increased up to 10 mg p.o. b.i.d. 5. Filing for guardianship. 11/15- added lidocaine for back pain. schedule tylenol. pt declines aricept and namenda. Reason for continued inpatient stay Substantial Risk for: inability to function Time Spent With Patient Time: Total time managing care of this patient today ____ minutes.
[2022-11-15] MEDS: Acetaminophen 325 MG TABLET 975 MG PO ×2 (15:30→20:51)
[2022-11-15] MEDS: Lidocaine 4 % Patch ADH..PATCH 1 PATCH TRANSDERMA (15:30)
[2022-11-15 18:00] VITALS: BP 101/58; PULSE 63; RESP 19; TEMP 37.1; O2SAT 96
[2022-11-15] MEDS: traZODone HCL 50 MG TABLET PO (19:50)
[2022-11-15] MEDS: OLANZapine 10 MG TABLET PO (19:51)
[2022-11-15] MEDS: Donepezil HCl 10 MG TABLET PO (19:51)
--- NOTE | 2022-11-16 07:45 | HO.PSYCHPN ---
Subjective Subjective Date of Service: 11/16/22 Reason For Visit: F31.9, F43.25 Subjective Notes: Section 7 and Section 8 Interim History: The nursing staff reported the patient had been confused but easily redirectable, compliant with treatment. On interview, the patient remains confused, unable to remember prior conversations about discharge planning. We have filed for guardianship. Waiting for court today. Mental Status Exam Mental Status Exam Patient Appearance: Unkempt Patient Orientation: Person and Situation Level of Consciousness: Awake and Appropriate Patient Behavior: Guarded and Passive Mood Description: Withdrawn Affect Description: Constricted Patient Cognition Impaired: Yes Ability to Follow Directions: Good Speech Pattern: Clear Hallucinations: None Delusions: Not Present Thought Process: Distracted, Evasive and Slowed Thinking Thought Content: positive for Vickery, positive for Perseveration and positive for Poverty of Content Judgement: Fair Diagnostics Vital Signs (24Hr): Vital Signs - 24 hr 11/15/22 08:00 11/15/22 18:00 Temperature 97.9 F 98.7 F Pulse Rate 74 63 Respiratory Rate 18 19 Blood Pressure 136/90 H 101/58 L Pulse Oximetry 96 96 Oxygen Delivery Method Room Air Room Air BMI result Body Mass Index 26.7 Labs 10/13/22 06:26 Medications Medications Current Medications Acetaminophen (Acetaminophen 325 Mg Tablet) 975 mg PO TID [facility] Last Admin: 11/15/22 20:51 Dose: 975 mg Al Hydroxide/Mg Hydroxide (Magnesium Hydrox/Alum Hydrox 30 Ml Oral.Susp) 30 ml PO Q6H PRN PRN Reason: Heartburn/Nausea Donepezil HCl (Donepezil Hcl 10 Mg Tablet) 10 mg PO BEDTIME [facility] Last Admin: 11/15/22 19:51 Dose: 10 mg Hydroxyzine HCl (Hydroxyzine Hcl 25 Mg Tablet) 25 mg PO Q6H PRN PRN Reason: Anxiety Last Admin: 11/02/22 00:20 Dose: 25 mg Lidocaine (Lidocaine 4 % Patch Adh..Patch) 1 patch TRANSDERMA DAILY [facility]; Protocol Last Admin: 11/15/22 15:30 Dose: 1 patch Magnesium Hydroxide (Milk Of Magnesia 30 Ml Oral.Susp) 30 ml PO DAILY PRN PRN Reason: Constipation Memantine (Memantine Hcl 10 Mg Tablet) 10 mg PO BID [facility] Last Admin: 11/15/22 19:51 Dose: 10 mg Olanzapine (Olanzapine 2.5 Mg Tablet) 2.5 mg PO TID PRN PRN Reason: agitation Last Admin: 11/11/22 09:52 Dose: 2.5 mg Olanzapine (Olanzapine 10 Mg Tablet) 10 mg PO BEDTIME [facility] Last Admin: 11/15/22 19:51 Dose: 10 mg Trazodone HCl (Trazodone Hcl 50 Mg Tablet) 50 mg PO BEDTIME PRN PRN Reason: Insomnia Last Admin: 11/15/22 19:50 Dose: 50 mg Allergies Allergies Allergy/AdvReac Type Severity Reaction Status Date / Time pollen extracts Allergy Unknown unknown Verified 04/21/22 14:56 latex Allergy Rash Verified 10/31/22 18:30 Assessment & Plan Assessment & Plan (1) Bipolar disorder, now depressed: Status: Acute Code(s): F31.30 - Bipolar disorder, current episode depressed, mild or moderate severity, unspecified (2) Cognitive impairment: Status: Acute Code(s): R41.89 - Other symptoms and signs involving cognitive functions and awareness Plan 82 year old male with history hyperlipidemia, tubular adenoma colon (last colonoscopy 12/21), BPH, chronic normocytic anemia, osteoarthritis shoulders and hips s/p b/l hip arthroplasty, chronic low back pain with lumbar stenosis, depression, hx rotator cuff tear, actinic keratosis, and atypical melanocytic hyperplasia admitted to geriatric psychiatry from [facility] with consult placed to medical hospitalist service for medical H&P. 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 Can use ibuprofen 600mg q6h prn as well if topical diclofenac unavailable. #Chronic left hip pain -per ED provider note at [facility], patient foot got stuck in a hole several months ago and fell onto the left hip. Subsequent imaging studies including x-ray of the hip/pelvis and CT of the pelvis are negative for fracture -Pain management as above -outpt follow up Pt refused physical extensive. Extensive review of prior note and records from [facility] conducted as noted above. Plan 1. Gather collateral information. His niece called and she provide more collateral information to the social work professor. Currently the patient is homeless and he is unable to take care of himself. We had to filed for Section 7 and 8 since the patient refused to sign the conditional voluntary. 2. Continue with Zyprexa at bedtime. We are increasing Zyprexa up to 10 mg p.o. q.h.s. in October 27 since the patient had been more intrusive and disinhibited. 3. The occupational therapist did an Hebert test and he scored 3.2, he used to be on 3.6 a few months ago. That means that he will need 24 hour care. We are going to start Aricept to target dementia. So far the patient did not have any side effects still cognitively impaired. 4. Namenda 5 mg p.o. b.i.d. started to target dementia. It was increased up to 10 mg p.o. b.i.d. 5. Filed for guardianship. Waiting for court today. Reason for continued inpatient stay Substantial Risk for: inability to function, rapid decompensation and med/psych decompensation Time Spent With Patient Time: Total time managing care of this patient today __20__ minutes.
[2022-11-16 08:05] VITALS: BP 106/60; PULSE 72; RESP 18; TEMP 36.8; O2SAT 98
[2022-11-16] MEDS: Lidocaine 4 % Patch ADH..PATCH 1 PATCH TRANSDERMA (08:20)
[2022-11-16] MEDS: Acetaminophen 325 MG TABLET 975 MG PO ×2 (08:20→19:44)
[2022-11-16] MEDS: Memantine HCl 10 MG TABLET PO (08:20)
[2022-11-16 18:00] VITALS: BP 130/58; PULSE 71; RESP 18; TEMP 36.2; O2SAT 98
[2022-11-16] MEDS: traZODone HCL 50 MG TABLET PO (19:45)
[2022-11-16] MEDS: OLANZapine 10 MG TABLET PO (19:45)
[2022-11-17] MEDS: Acetaminophen 325 MG TABLET 975 MG PO ×2 (08:55→20:34)
[2022-11-17] MEDS: Memantine HCl 10 MG TABLET PO (08:55)
[2022-11-17] MEDS: Lidocaine 4 % Patch ADH..PATCH 1 PATCH TRANSDERMA (08:57)
[2022-11-17 18:00] VITALS: BP 108/68; PULSE 68; RESP 18; TEMP 36.1; O2SAT 93
--- NOTE | 2022-11-17 19:04 | HO.PSYCHPN ---
Subjective Subjective Date of Service: 11/17/22 Reason For Visit: F31.9, F43.25 Subjective Notes: Section 7 Interim History: The nursing staff reported the patient had been confused but easily redirectable, compliant with treatment. On interview, the patient remains confused, pleasant. We have filed for guardianship. Waiting for court today. Medication Compliance: Yes Side effects from medications: No Review of Systems Medical Review of Systems: unchanged Review of Systems Review of Systems Yes Unobtainable due to mental status Mental Status Exam Mental Status Exam Narrative: Pt is alert but not oriented; behavior is friendly but intrusive and moments of agitation; patient is not in distress; dressed in casual attire and unkempt; mood is described as good and affect congruent; eye contact appropriate; Speech is normal rate, volume and prosody; intermittent psychomotor agitation present; thought process tangential; Thought content on chronic hip pain from past injury; or on various random topics; does not express any SI/HI. Unclear about AVH Patients insight and judgment impaired Patient Appearance: Unkempt Patient Orientation: Person and Situation Level of Consciousness: Awake and Appropriate Patient Behavior: Guarded and Passive Mood Description: Withdrawn Affect Description: Constricted Patient Cognition Impaired: Yes Ability to Follow Directions: Good Speech Pattern: Clear Diagnostics Vital Signs (24Hr): BMI result Body Mass Index 26.7 Labs 10/13/22 06:26 Medications Medications Current Medications Acetaminophen (Acetaminophen 325 Mg Tablet) 975 mg PO TID [facility] Last Admin: 11/17/22 14:51 Dose: Not Given Al Hydroxide/Mg Hydroxide (Magnesium Hydrox/Alum Hydrox 30 Ml Oral.Susp) 30 ml PO Q6H PRN PRN Reason: Heartburn/Nausea Donepezil HCl (Donepezil Hcl 10 Mg Tablet) 10 mg PO BEDTIME [facility] Last Admin: 11/16/22 20:18 Dose: Not Given Hydroxyzine HCl (Hydroxyzine Hcl 25 Mg Tablet) 25 mg PO Q6H PRN PRN Reason: Anxiety Last Admin: 11/02/22 00:20 Dose: 25 mg Lidocaine (Lidocaine 4 % Patch Adh..Patch) 1 patch TRANSDERMA DAILY [facility]; Protocol Last Admin: 11/17/22 08:57 Dose: 1 patch Magnesium Hydroxide (Milk Of Magnesia 30 Ml Oral.Susp) 30 ml PO DAILY PRN PRN Reason: Constipation Memantine (Memantine Hcl 10 Mg Tablet) 10 mg PO BID [facility] Last Admin: 11/17/22 08:55 Dose: 10 mg Olanzapine (Olanzapine 2.5 Mg Tablet) 2.5 mg PO TID PRN PRN Reason: agitation Last Admin: 11/11/22 09:52 Dose: 2.5 mg Olanzapine (Olanzapine 10 Mg Tablet) 10 mg PO BEDTIME [facility] Last Admin: 11/16/22 19:45 Dose: 10 mg Trazodone HCl (Trazodone Hcl 50 Mg Tablet) 50 mg PO BEDTIME PRN PRN Reason: Insomnia Last Admin: 11/16/22 19:45 Dose: 50 mg Allergies Allergies Allergy/AdvReac Type Severity Reaction Status Date / Time pollen extracts Allergy Unknown unknown Verified 04/21/22 14:56 latex Allergy Rash Verified 10/31/22 18:30 Assessment & Plan Assessment & Plan (1) Bipolar disorder, now depressed: Status: Acute Code(s): F31.30 - Bipolar disorder, current episode depressed, mild or moderate severity, unspecified (2) Cognitive impairment: Status: Acute Code(s): R41.89 - Other symptoms and signs involving cognitive functions and awareness Plan 82 year old male with history hyperlipidemia, tubular adenoma colon (last colonoscopy 12/21), BPH, chronic normocytic anemia, osteoarthritis shoulders and hips s/p b/l hip arthroplasty, chronic low back pain with lumbar stenosis, depression, hx rotator cuff tear, actinic keratosis, and atypical melanocytic hyperplasia admitted to geriatric psychiatry from [facility] with consult placed to medical hospitalist service for medical H&P. 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 Can use ibuprofen 600mg q6h prn as well if topical diclofenac unavailable. #Chronic left hip pain -per ED provider note at [facility], patient foot got stuck in a hole several months ago and fell onto the left hip. Subsequent imaging studies including x-ray of the hip/pelvis and CT of the pelvis are negative for fracture -Pain management as above -outpt follow up Pt refused physical extensive. Extensive review of prior note and records from [facility] conducted as noted above. Plan 1. Gather collateral information. His niece called and she provide more collateral information to the social services assistant. Currently the patient is homeless and he is unable to take care of himself. We had to filed for Section 7 and 8 since the patient refused to sign the conditional voluntary. 2. Continue with Zyprexa at bedtime. We are increasing Zyprexa up to 10 mg p.o. q.h.s. in October 27 since the patient had been more intrusive and disinhibited. 3. The occupational therapist did an Hebert test and he scored 3.2, he used to be on 3.6 a few months ago. That means that he will need 24 hour care. We are going to start Aricept to target dementia. So far the patient did not have any side effects still cognitively impaired. 4. Namenda 5 mg p.o. b.i.d. started to target dementia. It was increased up to 10 mg p.o. b.i.d. 5. Filed for guardianship. Waiting for court today. 11/17/22 Continue current treatment plan Reason for continued inpatient stay Substantial Risk for: harm to self, inability to function and rapid decompensation Time Spent With Patient Time: Total time managing care of this patient today ____ minutes.
[2022-11-18 08:00] VITALS: BP 116/75; PULSE 72; RESP 16; TEMP 37; O2SAT 96
[2022-11-18] MEDS: Memantine HCl 10 MG TABLET PO ×2 (08:10→20:08)
[2022-11-18] MEDS: Acetaminophen 325 MG TABLET 975 MG PO ×2 (08:10→20:07)
--- NOTE | 2022-11-18 12:40 | HO.PSYCHPN ---
Subjective Subjective Date of Service: 11/18/22 Reason For Visit: F31.9, F43.25 Subjective Notes: Section 7 Interim History: The nursing staff reported the patient had been confused but easily redirectable, compliant with treatment. On interview, the patient remains confused, pleasant. He is intermittently refusing medications- when asked why he says its because there are too many and he says he doesn't need them; he tells me there is nothing wrong with his memeory. He is taking notes while we talk and often forget what he is writing or tries to write a work but writes the wrong letter and starts again. He is oriented to immediate situation only; He is irritable. Medication Compliance: Intermittent Side effects from medications: No Attending Groups: Intermittent Review of Systems Acute medical concerns: No Medical Review of Systems: unchanged Review of Systems Review of Systems Yes Unobtainable due to mental status Mental Status Exam Mental Status Exam Narrative: Pt is alert but not oriented; behavior is friendly but intrusive and moments of agitation; patient is not in distress; dressed in casual attire and unkempt; mood is described as good and affect congruent; eye contact appropriate; Speech is normal rate, volume and prosody; intermittent psychomotor agitation present; thought process tangential; Thought content on chronic hip pain from past injury; or on various random topics; does not express any SI/HI. Unclear about AVH Patients insight and judgment impaired Patient Appearance: Unkempt Patient Orientation: Person and Situation Level of Consciousness: Awake and Appropriate Patient Behavior: Guarded and Passive Mood Description: Withdrawn Affect Description: Constricted Patient Cognition Impaired: Yes Ability to Follow Directions: Good Speech Pattern: Clear Diagnostics Vital Signs (24Hr): Vital Signs - 24 hr 11/17/22 18:00 11/18/22 08:00 Temperature 97 F 98.6 F Pulse Rate 68 72 Respiratory Rate 18 16 Blood Pressure 108/68 116/75 Pulse Oximetry 93 96 Oxygen Delivery Method Room Air Room Air BMI result Body Mass Index 26.7 Labs 10/13/22 06:26 Medications Medications Current Medications Acetaminophen (Acetaminophen 325 Mg Tablet) 975 mg PO TID [facility] Last Admin: 11/18/22 08:10 Dose: 975 mg Al Hydroxide/Mg Hydroxide (Magnesium Hydrox/Alum Hydrox 30 Ml Oral.Susp) 30 ml PO Q6H PRN PRN Reason: Heartburn/Nausea Donepezil HCl (Donepezil Hcl 10 Mg Tablet) 10 mg PO BEDTIME [facility] Last Admin: 11/17/22 21:04 Dose: Not Given Hydroxyzine HCl (Hydroxyzine Hcl 25 Mg Tablet) 25 mg PO Q6H PRN PRN Reason: Anxiety Last Admin: 11/02/22 00:20 Dose: 25 mg Lidocaine (Lidocaine 4 % Patch Adh..Patch) 1 patch TRANSDERMA DAILY [facility]; Protocol Last Admin: 11/18/22 10:10 Dose: Not Given Magnesium Hydroxide (Milk Of Magnesia 30 Ml Oral.Susp) 30 ml PO DAILY PRN PRN Reason: Constipation Memantine (Memantine Hcl 10 Mg Tablet) 10 mg PO BID [facility] Last Admin: 11/18/22 08:10 Dose: 10 mg Olanzapine (Olanzapine 2.5 Mg Tablet) 2.5 mg PO TID PRN PRN Reason: agitation Last Admin: 11/11/22 09:52 Dose: 2.5 mg Olanzapine (Olanzapine 10 Mg Tablet) 10 mg PO BEDTIME [facility] Last Admin: 11/17/22 21:05 Dose: Not Given Trazodone HCl (Trazodone Hcl 50 Mg Tablet) 50 mg PO BEDTIME PRN PRN Reason: Insomnia Last Admin: 11/16/22 19:45 Dose: 50 mg Allergies Allergies Allergy/AdvReac Type Severity Reaction Status Date / Time pollen extracts Allergy Unknown unknown Verified 04/21/22 14:56 latex Allergy Rash Verified 10/31/22 18:30 Assessment & Plan Assessment & Plan (1) Bipolar disorder, now depressed: Status: Acute Code(s): F31.30 - Bipolar disorder, current episode depressed, mild or moderate severity, unspecified (2) Cognitive impairment: Status: Acute Code(s): R41.89 - Other symptoms and signs involving cognitive functions and awareness Plan 82 year old male with history hyperlipidemia, tubular adenoma colon (last colonoscopy 12/21), BPH, chronic normocytic anemia, osteoarthritis shoulders and hips s/p b/l hip arthroplasty, chronic low back pain with lumbar stenosis, depression, hx rotator cuff tear, actinic keratosis, and atypical melanocytic hyperplasia admitted to geriatric psychiatry from [facility] with consult placed to medical hospitalist service for medical H&P. 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 Can use ibuprofen 600mg q6h prn as well if topical diclofenac unavailable. #Chronic left hip pain -per ED provider note at [facility], patient foot got stuck in a hole several months ago and fell onto the left hip. Subsequent imaging studies including x-ray of the hip/pelvis and CT of the pelvis are negative for fracture -Pain management as above -outpt follow up Pt refused physical extensive. Extensive review of prior note and records from [facility] conducted as noted above. Plan 1. Gather collateral information. His niece called and she provide more collateral information to the social media content specialist. Currently the patient is homeless and he is unable to take care of himself. We had to filed for Section 7 and 8 since the patient refused to sign the conditional voluntary. 2. Continue with Zyprexa at bedtime. We are increasing Zyprexa up to 10 mg p.o. q.h.s. in October 27 since the patient had been more intrusive and disinhibited. 3. The occupational therapist did an Hebert test and he scored 3.2, he used to be on 3.6 a few months ago. That means that he will need 24 hour care. We are going to start Aricept to target dementia. So far the patient did not have any side effects still cognitively impaired. 4. Namenda 5 mg p.o. b.i.d. started to target dementia. It was increased up to 10 mg p.o. b.i.d. 5. Filed for guardianship. Waiting for court today. 11/17/22 Continue current treatment plan 11/18/22 Continue with current treatment plan Reason for continued inpatient stay Substantial Risk for: harm to self, inability to function and rapid decompensation Time Spent With Patient Time: Total time managing care of this patient today ____ minutes.
[2022-11-18 19:40] VITALS: BP 114/56; PULSE 62; RESP 16; TEMP 36.4; O2SAT 97
[2022-11-18] MEDS: OLANZapine 10 MG TABLET PO (20:07)
[2022-11-18] MEDS: Donepezil HCl 10 MG TABLET PO (20:08)
[2022-11-19 08:00] VITALS: BP 114/59; PULSE 55; RESP 18; TEMP 36.3; O2SAT 95
[2022-11-19] MEDS: Acetaminophen 325 MG TABLET 975 MG PO ×3 (08:49→19:48)
--- NOTE | 2022-11-19 10:05 | HO.PSYCHPN ---
Subjective Subjective Date of Service: 11/19/22 Reason For Visit: F31.9, F43.25 Subjective Notes: Section 7 and Section 8 Interim History: The nursing staff reported the patient had been medication compliant, no changes in his mental status. He had a court hearing last Saturday for guardianship and so far we have not received yet the paperwork. The social insurance adviser reported that we will start working on placement as soon as we get the guardianship. On interview the patient denies new symptoms. Mental Status Exam Mental Status Exam Patient Appearance: Well Grooomed and Appropriate Patient Orientation: Person and Situation Level of Consciousness: Awake and Appropriate Patient Behavior: Guarded and Passive Mood Description: Withdrawn Affect Description: Constricted Patient Cognition Impaired: Yes Ability to Follow Directions: Good Speech Pattern: Clear Hallucinations: None Delusions: Not Present Thought Process: Distracted and Linear Thought Content: positive for [place], positive for Circumstantial, positive for Perseveration and positive for Poverty of Content Judgement: Fair Diagnostics Vital Signs (24Hr): Vital Signs - 24 hr 11/18/22 19:40 11/19/22 08:00 Temperature 97.6 F 97.4 F Pulse Rate 62 55 Respiratory Rate 16 18 Blood Pressure 114/56 L 114/59 L Pulse Oximetry 97 95 Oxygen Delivery Method Room Air Room Air BMI result Body Mass Index 26.7 Labs 10/13/22 06:26 Medications Medications Current Medications Acetaminophen (Acetaminophen 325 Mg Tablet) 975 mg PO TID [facility] Last Admin: 11/19/22 08:49 Dose: 975 mg Al Hydroxide/Mg Hydroxide (Magnesium Hydrox/Alum Hydrox 30 Ml Oral.Susp) 30 ml PO Q6H PRN PRN Reason: Heartburn/Nausea Donepezil HCl (Donepezil Hcl 10 Mg Tablet) 10 mg PO BEDTIME [facility] Last Admin: 11/18/22 20:08 Dose: 10 mg Hydroxyzine HCl (Hydroxyzine Hcl 25 Mg Tablet) 25 mg PO Q6H PRN PRN Reason: Anxiety Last Admin: 11/02/22 00:20 Dose: 25 mg Lidocaine (Lidocaine 4 % Patch Adh..Patch) 1 patch TRANSDERMA DAILY [facility]; Protocol Last Admin: 11/19/22 08:53 Dose: Not Given Magnesium Hydroxide (Milk Of Magnesia 30 Ml Oral.Susp) 30 ml PO DAILY PRN PRN Reason: Constipation Memantine (Memantine Hcl 10 Mg Tablet) 10 mg PO BID [facility] Last Admin: 11/19/22 08:54 Dose: Not Given Olanzapine (Olanzapine 2.5 Mg Tablet) 2.5 mg PO TID PRN PRN Reason: agitation Last Admin: 11/11/22 09:52 Dose: 2.5 mg Olanzapine (Olanzapine 10 Mg Tablet) 10 mg PO BEDTIME [facility] Last Admin: 11/18/22 20:07 Dose: 10 mg Trazodone HCl (Trazodone Hcl 50 Mg Tablet) 50 mg PO BEDTIME PRN PRN Reason: Insomnia Last Admin: 11/16/22 19:45 Dose: 50 mg Allergies Allergies Allergy/AdvReac Type Severity Reaction Status Date / Time pollen extracts Allergy Unknown unknown Verified 04/21/22 14:56 latex Allergy Rash Verified 10/31/22 18:30 Assessment & Plan Assessment & Plan (1) Bipolar disorder, now depressed: Status: Acute Code(s): F31.30 - Bipolar disorder, current episode depressed, mild or moderate severity, unspecified (2) Cognitive impairment: Status: Acute Code(s): R41.89 - Other symptoms and signs involving cognitive functions and awareness Plan 82 year old male with history hyperlipidemia, tubular adenoma colon (last colonoscopy 12/21), BPH, chronic normocytic anemia, osteoarthritis shoulders and hips s/p b/l hip arthroplasty, chronic low back pain with lumbar stenosis, depression, hx rotator cuff tear, actinic keratosis, and atypical melanocytic hyperplasia admitted to geriatric psychiatry from [facility] with consult placed to medical hospitalist service for medical H&P. 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 Can use ibuprofen 600mg q6h prn as well if topical diclofenac unavailable. #Chronic left hip pain -per ED provider note at [facility], patient foot got stuck in a hole several months ago and fell onto the left hip. Subsequent imaging studies including x-ray of the hip/pelvis and CT of the pelvis are negative for fracture -Pain management as above -outpt follow up Pt refused physical extensive. Extensive review of prior note and records from [facility] conducted as noted above. Plan 1. Gather collateral information. His niece called and she provide more collateral information to the social insurance adviser. Currently the patient is homeless and he is unable to take care of himself. We had to filed for Section 7 and 8 since the patient refused to sign the conditional voluntary. 2. Continue with Zyprexa at bedtime. We are increasing Zyprexa up to 10 mg p.o. q.h.s. in October 27 since the patient had been more intrusive and disinhibited. 3. The occupational therapist did an Hebert test and he scored 3.2, he used to be on 3.6 a few months ago. That means that he will need 24 hour care. We are going to start Aricept to target dementia. So far the patient did not have any side effects still cognitively impaired. 4. Namenda 5 mg p.o. b.i.d. started to target dementia. It was increased up to 10 mg p.o. b.i.d. 5. Filed for guardianship. Waiting for the paperwork since the hearing was last Saturday. Reason for continued inpatient stay Substantial Risk for: inability to function, rapid decompensation and med/psych decompensation Time Spent With Patient Time: Total time managing care of this patient today __20__ minutes.
[2022-11-19 18:00] VITALS: BP 100/57; PULSE 67; RESP 17; TEMP 36.1; O2SAT 95
[2022-11-19] MEDS: Memantine HCl 10 MG TABLET PO (19:48)
[2022-11-19] MEDS: OLANZapine 10 MG TABLET PO (19:48)
[2022-11-19] MEDS: Donepezil HCl 10 MG TABLET PO (19:49)
[2022-11-20 08:00] VITALS: BP 101/59; PULSE 56; RESP 18; TEMP 36.4; O2SAT 95
[2022-11-20] MEDS: Lidocaine 4 % Patch ADH..PATCH 1 PATCH TRANSDERMA (08:15)
[2022-11-20] MEDS: Acetaminophen 325 MG TABLET 975 MG PO ×3 (08:15→20:19)
--- NOTE | 2022-11-20 10:05 | P.PNPSI_ITS ---
Subjective Subjective Date of Service: 11/20/22 Reason For Visit: F31.9, F43.25 Subjective Notes: Section 7 and Section 8 Interim History: The nursing staff reported the patient had been pleasant, level at times, he has refuses Namenda stating that he does not have dementia. He slept well. The paperwork for his guardianship has not been initiated yet. On interview the patient denies new symptoms waiting for placement, pleasantly confused no changes in his mental status. Mental Status Exam Mental Status Exam Patient Appearance: Unkempt Patient Orientation: Person and Situation Level of Consciousness: Disoriented Patient Behavior: Cooperative and Passive Mood Description: Calm Affect Description: Constricted Patient Cognition Impaired: Yes Ability to Follow Directions: Good Speech Pattern: Clear Hallucinations: None Delusions: Not Present Thought Process: Linear Thought Content: positive for [place]sever[place] and positive for Poverty of Content Judgement: Fair Diagnostics Vital Signs (24Hr): Vital Signs - 24 hr 11/19/22 18:00 Temperature 97.0 F Pulse Rate 67 Respiratory Rate 17 Blood Pressure 100/57 L Pulse Oximetry 95 Oxygen Delivery Method Room Air BMI result Body Mass Index 26.7 Labs 10/13/22 06:26 Medications Medications Current Medications Acetaminophen (Acetaminophen 325 Mg Tablet) 975 mg PO TID [facility] Last Admin: 11/20/22 08:15 Dose: 975 mg Al Hydroxide/Mg Hydroxide (Magnesium Hydrox/Alum Hydrox 30 Ml Oral.Susp) 30 ml PO Q6H PRN PRN Reason: Heartburn/Nausea Donepezil HCl (Donepezil Hcl 10 Mg Tablet) 10 mg PO BEDTIME [facility] Last Admin: 11/19/22 19:49 Dose: 10 mg Hydroxyzine HCl (Hydroxyzine Hcl 25 Mg Tablet) 25 mg PO Q6H PRN PRN Reason: Anxiety Last Admin: 11/02/22 00:20 Dose: 25 mg Lidocaine (Lidocaine 4 % Patch Adh..Patch) 1 patch TRANSDERMA DAILY [facility]; Protocol Last Admin: 11/20/22 08:15 Dose: 1 patch Magnesium Hydroxide (Milk Of Magnesia 30 Ml Oral.Susp) 30 ml PO DAILY PRN PRN Reason: Constipation Memantine (Memantine Hcl 10 Mg Tablet) 10 mg PO BID [facility] Last Admin: 11/20/22 08:52 Dose: Not Given Olanzapine (Olanzapine 2.5 Mg Tablet) 2.5 mg PO TID PRN PRN Reason: agitation Last Admin: 11/11/22 09:52 Dose: 2.5 mg Olanzapine (Olanzapine 10 Mg Tablet) 10 mg PO BEDTIME [facility] Last Admin: 11/19/22 19:48 Dose: 10 mg Trazodone HCl (Trazodone Hcl 50 Mg Tablet) 50 mg PO BEDTIME PRN PRN Reason: Insomnia Last Admin: 11/16/22 19:45 Dose: 50 mg Allergies Allergies Allergy/AdvReac Type Severity Reaction Status Date / Time pollen extracts Allergy Unknown unknown Verified 04/21/22 14:56 latex Allergy Rash Verified 10/31/22 18:30 Assessment & Plan Assessment & Plan (1) Bipolar disorder, now depressed: Status: Acute Code(s): F31.30 - Bipolar disorder, current episode depressed, mild or moderate severity, unspecified (2) Cognitive impairment: Status: Acute Code(s): R41.89 - Other symptoms and signs involving cognitive functions and awareness Plan 82 year old male with history hyperlipidemia, tubular adenoma colon (last colonoscopy 12/21), BPH, chronic normocytic anemia, osteoarthritis shoulders and hips s/p b/l hip arthroplasty, chronic low back pain with lumbar stenosis, depression, hx rotator cuff tear, actinic keratosis, and atypical melanocytic hyperplasia admitted to geriatric psychiatry from [facility] with consult placed to medical hospitalist service for medical H&P. 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 Can use ibuprofen 600mg q6h prn as well if topical diclofenac unavailable. #Chronic left hip pain -per ED provider note at [facility], patient foot got stuck in a hole several months ago and fell onto the left hip. Subsequent imaging studies including x-ray of the hip/pelvis and CT of the pelvis are negative for fracture -Pain management as above -outpt follow up Pt refused physical extensive. Extensive review of prior note and records from [facility] conducted as noted above. Plan 1. Gather collateral information. His niece called and she provide more collateral information to the manager social work. Currently the patient is homeless and he is unable to take care of himself. We had to filed for Section 7 and 8 since the patient refused to sign the conditional voluntary. 2. Continue with Zyprexa at bedtime. We are increasing Zyprexa up to 10 mg p.o. q.h.s. in October 27 since the patient had been more intrusive and disinhibited. 3. The occupational therapist did an Hebert test and he scored 3.2, he used to be on 3.6 a few months ago. That means that he will need 24 hour care. We are going to start Aricept to target dementia. So far the patient did not have any side effects still cognitively impaired. 4. Namenda 5 mg p.o. b.i.d. started to target dementia. It was increased up to 10 mg p.o. b.i.d. 5. Filed for guardianship. Waiting for the paperwork since the hearing was last Saturday. Reason for continued inpatient stay Substantial Risk for: inability to function, rapid decompensation and med/psych decompensation Time Spent With Patient Time: Total time managing care of this patient today __20__ minutes.
[2022-11-20] MEDS: traZODone HCL 50 MG TABLET PO (20:20)
[2022-11-21 08:05] VITALS: BP 120/71; PULSE 76; RESP 18; TEMP 36.6; O2SAT 95
[2022-11-21] MEDS: Acetaminophen 325 MG TABLET 975 MG PO ×2 (09:07→20:23)
[2022-11-21] MEDS: Lidocaine 4 % Patch ADH..PATCH 1 PATCH TRANSDERMA (09:07)
--- NOTE | 2022-11-21 12:07 | P.PNPSI_ITS ---
Subjective Subjective Date of Service: 11/21/22 Reason For Visit: F31.9, F43.25 Subjective Notes: Section 7 and Section 8 Interim History: The nursing staff reported the patient had been irritable at times, he was noncompliant of Namenda last night stating that he does not needed. On interview the patient asked me the same questions regarding discharge he could not remember that we have the same discussion before. I tried to explain that he has dementia and we are filing for guardianship but he was unable to process that information. Mental Status Exam Mental Status Exam Patient Appearance: Disheveled and Unkempt Patient Orientation: Person and Situation Level of Consciousness: Awake Patient Behavior: Guarded and Passive Mood Description: Withdrawn Affect Description: Constricted Patient Cognition Impaired: Yes Ability to Follow Directions: Good Speech Pattern: Clear Hallucinations: None Delusions: Not Present Thought Process: Illogical and Distracted Thought Content: positive for [place] and positive for Poverty of Content Judgement: Poor Diagnostics Vital Signs (24Hr): Vital Signs - 24 hr 11/21/22 08:05 Temperature 97.9 F Pulse Rate 76 Respiratory Rate 18 Blood Pressure 120/71 Pulse Oximetry 95 Oxygen Delivery Method Room Air BMI result Body Mass Index 26.7 Labs 10/13/22 06:26 Medications Medications Current Medications Acetaminophen (Acetaminophen 325 Mg Tablet) 975 mg PO TID [facility] Last Admin: 11/21/22 09:07 Dose: 975 mg Al Hydroxide/Mg Hydroxide (Magnesium Hydrox/Alum Hydrox 30 Ml Oral.Susp) 30 ml PO Q6H PRN PRN Reason: Heartburn/Nausea Donepezil HCl (Donepezil Hcl 10 Mg Tablet) 10 mg PO BEDTIME [facility] Last Admin: 11/20/22 23:04 Dose: Not Given Hydroxyzine HCl (Hydroxyzine Hcl 25 Mg Tablet) 25 mg PO Q6H PRN PRN Reason: Anxiety Last Admin: 11/02/22 00:20 Dose: 25 mg Lidocaine (Lidocaine 4 % Patch Adh..Patch) 1 patch TRANSDERMA DAILY [facility]; Protocol Last Admin: 11/21/22 09:07 Dose: 1 patch Magnesium Hydroxide (Milk Of Magnesia 30 Ml Oral.Susp) 30 ml PO DAILY PRN PRN Reason: Constipation Memantine (Memantine Hcl 10 Mg Tablet) 10 mg PO BID [facility] Last Admin: 11/21/22 09:35 Dose: Not Given Olanzapine (Olanzapine 2.5 Mg Tablet) 2.5 mg PO TID PRN PRN Reason: agitation Last Admin: 11/11/22 09:52 Dose: 2.5 mg Olanzapine (Olanzapine 10 Mg Tablet) 10 mg PO BEDTIME [facility] Last Admin: 11/20/22 23:04 Dose: Not Given Trazodone HCl (Trazodone Hcl 50 Mg Tablet) 50 mg PO BEDTIME PRN PRN Reason: Insomnia Last Admin: 11/20/22 20:20 Dose: 50 mg Allergies Allergies Allergy/AdvReac Type Severity Reaction Status Date / Time pollen extracts Allergy Unknown unknown Verified 04/21/22 14:56 latex Allergy Rash Verified 10/31/22 18:30 Assessment & Plan Assessment & Plan (1) Bipolar disorder, now depressed: Status: Acute Code(s): F31.30 - Bipolar disorder, current episode depressed, mild or moderate severity, unspecified (2) Cognitive impairment: Status: Acute Code(s): R41.89 - Other symptoms and signs involving cognitive functions and awareness Plan 82 year old male with history hyperlipidemia, tubular adenoma colon (last colonoscopy 12/21), BPH, chronic normocytic anemia, osteoarthritis shoulders and hips s/p b/l hip arthroplasty, chronic low back pain with lumbar stenosis, depression, hx rotator cuff tear, actinic keratosis, and atypical melanocytic hyperplasia admitted to geriatric psychiatry from [facility] with consult placed to medical hospitalist service for medical H&P. 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 Can use ibuprofen 600mg q6h prn as well if topical diclofenac unavailable. #Chronic left hip pain -per ED provider note at [facility], patient foot got stuck in a hole several months ago and fell onto the left hip. Subsequent imaging studies including x-ray of the hip/pelvis and CT of the pelvis are negative for fracture -Pain management as above -outpt follow up Pt refused physical extensive. Extensive review of prior note and records from [facility] conducted as noted above. Plan 1. Gather collateral information. His niece called and she provide more collateral information to the case management social worker. Currently the patient is homeless and he is unable to take care of himself. We had to filed for Section 7 and 8 since the patient refused to sign the conditional voluntary. 2. Continue with Zyprexa at bedtime. We are increasing Zyprexa up to 10 mg p.o. q.h.s. in October 27 since the patient had been more intrusive and disinhibited. 3. The occupational therapist did an Hebert test and he scored 3.2, he used to be on 3.6 a few months ago. That means that he will need 24 hour care. We are going to start Aricept to target dementia. So far the patient did not have any side effects still cognitively impaired. 4. Namenda 5 mg p.o. b.i.d. started to target dementia. It was increased up to 10 mg p.o. b.i.d. 5. Filed for guardianship. Waiting for the paperwork since the hearing was last Saturday. Reason for continued inpatient stay Substantial Risk for: inability to function, rapid decompensation and med/psych decompensation Time Spent With Patient Time: Total time managing care of this patient today __20__ minutes.
[2022-11-21 18:00] VITALS: BP 130/76; PULSE 68; RESP 18; TEMP 36.6; O2SAT 96
[2022-11-21] MEDS: OLANZapine 10 MG TABLET PO (20:23)
[2022-11-21] MEDS: Donepezil HCl 10 MG TABLET PO (20:26)
[2022-11-21] MEDS: Memantine HCl 10 MG TABLET PO (20:26)
[2022-11-22 08:00] VITALS: BP 139/60; PULSE 60; RESP 18; TEMP 36.4; O2SAT 97
[2022-11-22] MEDS: Acetaminophen 325 MG TABLET 975 MG PO ×2 (09:44→19:56)
[2022-11-22] MEDS: Memantine HCl 10 MG TABLET PO (09:44)
[2022-11-22] MEDS: Lidocaine 4 % Patch ADH..PATCH 1 PATCH TRANSDERMA (09:44)
--- NOTE | 2022-11-22 10:44 | P.PNPSI_ITS ---
Subjective Subjective Date of Service: 11/22/22 Reason For Visit: F31.9, F43.25 Subjective Notes: Section 7 and Section 8 Interim History: The nursing staff reported the patient had been medication compliant, he was seen in the common areas watching TV pleasantly confused. On interview the patient denies new symptoms, waiting for placement. Again he was me again why he needs to have in order to be discharged and I repeated again that he needs to have a place to go. He yesterday he was trying to contact some friends that have already said that they cannot take him back. Mental Status Exam Mental Status Exam Patient Appearance: Unkempt Patient Orientation: Person and Situation Level of Consciousness: Awake Patient Behavior: Guarded and Passive Mood Description: Withdrawn Affect Description: Constricted Patient Cognition Impaired: Yes Ability to Follow Directions: Good Speech Pattern: Clear Hallucinations: None Delusions: Not Present Thought Process: Distracted and Evasive Thought Content: positive for [place] Judgement: Poor Diagnostics Vital Signs (24Hr): Vital Signs - 24 hr 11/21/22 18:00 11/22/22 08:00 Temperature 97.9 F 97.6 F Pulse Rate 68 60 Respiratory Rate 18 18 Blood Pressure 130/76 139/60 Pulse Oximetry 96 97 Oxygen Delivery Method Room Air Room Air BMI result Body Mass Index 26.7 Labs 10/13/22 06:26 Medications Medications Current Medications Acetaminophen (Acetaminophen 325 Mg Tablet) 975 mg PO TID [facility] Last Admin: 11/22/22 09:44 Dose: 975 mg Al Hydroxide/Mg Hydroxide (Magnesium Hydrox/Alum Hydrox 30 Ml Oral.Susp) 30 ml PO Q6H PRN PRN Reason: Heartburn/Nausea Donepezil HCl (Donepezil Hcl 10 Mg Tablet) 10 mg PO BEDTIME [facility] Last Admin: 11/21/22 20:26 Dose: 10 mg Hydroxyzine HCl (Hydroxyzine Hcl 25 Mg Tablet) 25 mg PO Q6H PRN PRN Reason: Anxiety Last Admin: 11/02/22 00:20 Dose: 25 mg Lidocaine (Lidocaine 4 % Patch Adh..Patch) 1 patch TRANSDERMA DAILY [facility]; Protocol Last Admin: 11/22/22 09:44 Dose: 1 patch Magnesium Hydroxide (Milk Of Magnesia 30 Ml Oral.Susp) 30 ml PO DAILY PRN PRN Reason: Constipation Memantine (Memantine Hcl 10 Mg Tablet) 10 mg PO BID [facility] Last Admin: 11/22/22 09:44 Dose: 10 mg Olanzapine (Olanzapine 2.5 Mg Tablet) 2.5 mg PO TID PRN PRN Reason: agitation Last Admin: 11/11/22 09:52 Dose: 2.5 mg Olanzapine (Olanzapine 10 Mg Tablet) 10 mg PO BEDTIME [facility] Last Admin: 11/21/22 20:23 Dose: 10 mg Trazodone HCl (Trazodone Hcl 50 Mg Tablet) 50 mg PO BEDTIME PRN PRN Reason: Insomnia Last Admin: 11/20/22 20:20 Dose: 50 mg Allergies Allergies Allergy/AdvReac Type Severity Reaction Status Date / Time pollen extracts Allergy Unknown unknown Verified 04/21/22 14:56 latex Allergy Rash Verified 10/31/22 18:30 Assessment & Plan Assessment & Plan (1) Bipolar disorder, now depressed: Status: Acute Code(s): F31.30 - Bipolar disorder, current episode depressed, mild or moderate severity, unspecified (2) Cognitive impairment: Status: Acute Code(s): R41.89 - Other symptoms and signs involving cognitive functions and awareness Plan 82 year old male with history hyperlipidemia, tubular adenoma colon (last col onoscopy 12/21), BPH, chronic normocytic anemia, osteoarthritis shoulders and hips s/p b/l hip arthroplasty, chronic low back pain with lumbar stenosis, depression, hx rotator cuff tear, actinic keratosis, and atypical melanocytic hyperplasia admitted to geriatric psychiatry from [facility] with consult placed to medical hospitalist service for medical H&P. 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 Can use ibuprofen 600mg q6h prn as well if topical diclofenac unavailable. #Chronic left hip pain -per ED provider note at [facility], patient foot got stuck in a hole several months ago and fell onto the left hip. Subsequent imaging studies including x-ray of the hip/pelvis and CT of the pelvis are negative for fracture -Pain management as above -outpt follow up Pt refused physical extensive. Extensive review of prior note and records from [facility] conducted as noted above. Plan 1. Gather collateral information. His niece called and she provide more c ollateral information to the social media project manager. Currently the patient is homeless and he is unable to take care of himself. We had to filed for Section 7 and 8 since the patient refused to sign the conditional voluntary. 2. Continue with Zyprexa at bedtime. We are increasing Zyprexa up to 10 mg p.o. q.h.s. in October 27 since the patient had been more intrusive and disinhibited. 3. The occupational therapist did an Hebert test and he scored 3.2, he used to be on 3.6 a few months ago. That means that he will need 24 hour care. We are going to start Aricept to target dementia. So far the patient did not have any side effects still cognitively impaired. 4. Namenda 5 mg p.o. b.i.d. started to target dementia. It was increased up to 10 mg p.o. b.i.d. 5. Filed for guardianship. Waiting for the paperwork since the hearing was last Saturday. Reason for continued inpatient stay Substantial Risk for: inability to function, rapid decompensation and med/psych decompensation Time Spent With Patient Time: Total time managing care of this patient today __20__ minutes.
[2022-11-22] MEDS: OLANZapine 10 MG TABLET PO (19:58)
[2022-11-22] MEDS: Donepezil HCl 10 MG TABLET PO (20:02)
[2022-11-22 21:21] VITALS: BP 112/70; PULSE 72; RESP 16; TEMP 36.1; O2SAT 96
[2022-11-23 08:20] VITALS: BP 122/69; PULSE 69; RESP 16; TEMP 36.9; O2SAT 96
[2022-11-23] MEDS: Lidocaine 4 % Patch ADH..PATCH 1 PATCH TRANSDERMA (09:39)
[2022-11-23] MEDS: Acetaminophen 325 MG TABLET 975 MG PO ×2 (09:40→20:41)
[2022-11-23] MEDS: Memantine HCl 10 MG TABLET PO ×2 (09:41→22:20)
--- NOTE | 2022-11-23 11:31 | P.PNPSI_ITS ---
Subjective Subjective Date of Service: 11/23/22 Reason For Visit: F31.9, F43.25 Subjective Notes: Section 7 and Section 8 Interim History: The nursing staff reported the patient has refused Namenda last night. He took his Tylenol and he had been sleeping and eating well. On interview the patient remains most of the time on his room. No new symptoms. Mental Status Exam Mental Status Exam Patient Appearance: Unkempt Patient Orientation: Person and Situation Level of Consciousness: Awake Patient Behavior: Guarded and Passive Mood Description: Withdrawn Affect Description: Constricted Patient Cognition Impaired: Yes Ability to Follow Directions: Fair Speech Pattern: Clear Hallucinations: None Delusions: Not Present Thought Process: Illogical and Distracted Thought Content: positive for [place] and positive for Poverty of Content Judgement: Poor Diagnostics Vital Signs (24Hr): Vital Signs - 24 hr 11/22/22 21:21 11/23/22 08:20 Temperature 97 F 98.4 F Pulse Rate 72 69 Respiratory Rate 16 16 Blood Pressure 112/70 122/69 Pulse Oximetry 96 96 Oxygen Delivery Method Room Air Room Air BMI result Body Mass Index 26.7 Labs 10/13/22 06:26 Medications Medications Current Medications Acetaminophen (Acetaminophen 325 Mg Tablet) 975 mg PO TID [facility] Last Admin: 11/23/22 09:40 Dose: 975 mg Al Hydroxide/Mg Hydroxide (Magnesium Hydrox/Alum Hydrox 30 Ml Oral.Susp) 30 ml PO Q6H PRN PRN Reason: Heartburn/Nausea Donepezil HCl (Donepezil Hcl 10 Mg Tablet) 10 mg PO BEDTIME [facility] Last Admin: 11/22/22 20:02 Dose: 10 mg Hydroxyzine HCl (Hydroxyzine Hcl 25 Mg Tablet) 25 mg PO Q6H PRN PRN Reason: Anxiety Last Admin: 11/02/22 00:20 Dose: 25 mg Lidocaine (Lidocaine 4 % Patch Adh..Patch) 1 patch TRANSDERMA DAILY [facility]; Protocol Last Admin: 11/23/22 09:39 Dose: 1 patch Magnesium Hydroxide (Milk Of Magnesia 30 Ml Oral.Susp) 30 ml PO DAILY PRN PRN Reason: Constipation Memantine (Memantine Hcl 10 Mg Tablet) 10 mg PO BID [facility] Last Admin: 11/23/22 09:41 Dose: 10 mg Olanzapine (Olanzapine 2.5 Mg Tablet) 2.5 mg PO TID PRN PRN Reason: agitation Last Admin: 11/11/22 09:52 Dose: 2.5 mg Olanzapine (Olanzapine 10 Mg Tablet) 10 mg PO BEDTIME [facility] Last Admin: 11/22/22 19:58 Dose: 10 mg Trazodone HCl (Trazodone Hcl 50 Mg Tablet) 50 mg PO BEDTIME PRN PRN Reason: Insomnia Last Admin: 11/20/22 20:20 Dose: 50 mg Allergies Allergies Allergy/AdvReac Type Severity Reaction Status Date / Time pollen extracts Allergy Unknown unknown Verified 04/21/22 14:56 latex Allergy Rash Verified 10/31/22 18:30 Assessment & Plan Assessment & Plan (1) Bipolar disorder, now depressed: Status: Acute Code(s): F31.30 - Bipolar disorder, current episode depressed, mild or moderate severity, unspecified (2) Cognitive impairment: Status: Acute Code(s): R41.89 - Other symptoms and signs involving cognitive functions and awareness Plan 82 year old male with history hyperlipidemia, tubular adenoma colon (last colonoscopy 12/21), BPH, chronic normocytic anemia, osteoarthritis shoulders and hips s/p b/l hip arthroplasty, 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 Can use ibuprofen 600mg q6h prn as well if topical diclofenac unavailable. #Chronic left hip pain -per ED provider note at [facility], patient foot got stuck in a hole several months ago and fell onto the left hip. Subsequent imaging studies including x-ray of the hip/pelvis and CT of the pelvis are negative for fracture -Pain management as above -outpt follow up Pt refused physical extensive. Extensive review of prior note and records from [facility] conducted as noted above. Plan 1. Gather collateral information. His niece called and she provide more collateral information to the social service agency director. Currently the patient is homeless and he is unable to take care of himself. We had to filed for Section 7 and 8 since the patient refused to sign the conditional voluntary. 2. Continue with Zyprexa at bedtime. We are increasing Zyprexa up to 10 mg p.o. q.h.s. in October 27 since the patient had been more intrusive and disinhibited. 3. The occupational therapist did an Hebert test and he scored 3.2, he used to be on 3.6 a few months ago. That means that he will need 24 hour care. We are going to start Aricept to target dementia. So far the patient did not have any side effects still cognitively impaired. 4. Namenda 5 mg p.o. b.i.d. started to target dementia. It was increased up to 10 mg p.o. b.i.d. 5. Filed for guardianship. Waiting for the paperwork since the hearing was last Saturday. Reason for continued inpatient stay Substantial Risk for: inability to function, rapid decompensation and med/psych decompensation Time Spent With Patient Time: Total time managing care of this patient today __20__ minutes.
[2022-11-23 18:00] VITALS: BP 119/71; PULSE 65; RESP 18; TEMP 36.4; O2SAT 95
[2022-11-23] MEDS: OLANZapine 10 MG TABLET PO (20:41)
[2022-11-23] MEDS: Donepezil HCl 10 MG TABLET PO (20:41)
[2022-11-24 08:00] VITALS: BP 112/70; PULSE 69; RESP 18; TEMP 36.1; O2SAT 97
[2022-11-24] MEDS: Acetaminophen 325 MG TABLET 975 MG PO ×3 (08:12→20:18)
[2022-11-24] MEDS: Memantine HCl 10 MG TABLET PO ×2 (08:13→20:18)
[2022-11-24] MEDS: Lidocaine 4 % Patch ADH..PATCH 1 PATCH TRANSDERMA (08:13)
--- NOTE | 2022-11-24 17:42 | P.PNPSI_ITS ---
Subjective Subjective Date of Service: 11/24/22 Reason For Visit: F31.9, F43.25 Interim History: met with patient. Discussed with Nursing. To go medications today which is unusual i.e. normally refuses. Vital signs stable. Reports today things are going pretty well. Regarding orientation stated it was November and 1935. reports staff been treating him well. Does have chronic pain. Sleep okay. Medication Compliance: Yes Side effects from medications: No Attending Groups: No Review of Systems Acute medical concerns: No Review of Systems Review of Systems Chronic back pain Mental Status Exam Mental Status Exam Patient Appearance: Unkempt Patient Orientation: Person and Situation Level of Consciousness: Awake Patient Behavior: Guarded and Passive Mood Description: Withdrawn Affect Description: Constricted Patient Cognition Impaired: Yes Ability to Follow Directions: Fair Speech Pattern: Clear Hallucinations: None Delusions: Not Present Thought Process: Illogical and Distracted Judgement: Poor Diagnostics Vital Signs (24Hr): Vital Signs - 24 hr 11/23/22 18:00 11/24/22 08:00 Temperature 97.6 F 97 F Pulse Rate 65 69 Respiratory Rate 18 18 Blood Pressure 119/71 112/70 Pulse Oximetry 95 97 Oxygen Delivery Method Room Air Room Air BMI result Body Mass Index 26.7 Labs 10/13/22 06:26 Medications Medications Current Medications Acetaminophen (Acetaminophen 325 Mg Tablet) 975 mg PO TID [facility] Last Admin: 11/24/22 15:26 Dose: 975 mg Al Hydroxide/Mg Hydroxide (Magnesium Hydrox/Alum Hydrox 30 Ml Oral.Susp) 30 ml PO Q6H PRN PRN Reason: Heartburn/Nausea Donepezil HCl (Donepezil Hcl 10 Mg Tablet) 10 mg PO BEDTIME [facility] Last Admin: 11/23/22 20:41 Dose: 10 mg Hydroxyzine HCl (Hydroxyzine Hcl 25 Mg Tablet) 25 mg PO Q6H PRN PRN Reason: Anxiety Last Admin: 11/02/22 00:20 Dose: 25 mg Lidocaine (Lidocaine 4 % Patch Adh..Patch) 1 patch TRANSDERMA DAILY [facility]; Protocol Last Admin: 11/24/22 08:13 Dose: 1 patch Magnesium Hydroxide (Milk Of Magnesia 30 Ml Oral.Susp) 30 ml PO DAILY PRN PRN Reason: Constipation Memantine (Memantine Hcl 10 Mg Tablet) 10 mg PO BID [facility] Last Admin: 11/24/22 08:13 Dose: 10 mg Olanzapine (Olanzapine 2.5 Mg Tablet) 2.5 mg PO TID PRN PRN Reason: agitation Last Admin: 11/11/22 09:52 Dose: 2.5 mg Olanzapine (Olanzapine 10 Mg Tablet) 10 mg PO BEDTIME [facility] Last Admin: 11/23/22 20:41 Dose: 10 mg Trazodone HCl (Trazodone Hcl 50 Mg Tablet) 50 mg PO BEDTIME PRN PRN Reason: Insomnia Last Admin: 11/20/22 20:20 Dose: 50 mg Allergies Allergies Allergy/AdvReac Type Severity Reaction Status Date / Time pollen extracts Allergy Unknown unknown Verified 04/21/22 14:56 latex Allergy Rash Verified 10/31/22 18:30 Assessment & Plan Assessment & Plan (1) Bipolar disorder, now depressed: Status: Acute Code(s): F31.30 - Bipolar disorder, current episode depressed, mild or moderate severity, unspecified (2) Cognitive impairment: Status: Acute Code(s): R41.89 - Other symptoms and signs involving cognitive functions and awareness Plan 82 year old male with history hyperlipidemia, tubular adenoma colon (last colonoscopy 12/21), BPH, chronic normocytic anemia, osteoarthritis shoulders and hips s/p b/l hip arthroplasty, 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 Can use ibuprofen 600mg q6h prn as well if topical diclofenac unavailable. #Chronic left hip pain -per ED provider note at [facility], patient foot got stuck in a hole several months ago and fell onto the left hip. Subsequent imaging studies including x-ray of the hip/pelvis and CT of the pelvis are negative for fracture -Pain management as above -outpt follow up Pt refused physical extensive. Extensive review of prior note and records from [facility] conducted as noted above. Plan 1. Gather collateral information. His niece called and she provide more collateral information to the secondary social studies teacher. Currently the patient is homeless and he is unable to take care of himself. We had to filed for Section 7 and 8 since the patient refused to sign the conditional voluntary. 2. Continue with Zyprexa at bedtime. We are increasing Zyprexa up to 10 mg p.o. q.h.s. in October 27 since the patient had been more intrusive and disinhibited. 3. The occupational therapist did an Hebert test and he scored 3.2, he used to be on 3.6 a few months ago. That means that he will need 24 hour care. We are going to start Aricept to target dementia. So far the patient did not have any side effects still cognitively impaired. 4. Namenda 5 mg p.o. b.i.d. started to target dementia. It was increased up to 10 mg p.o. b.i.d. 5. Filed for guardianship. Waiting for the paperwork since the hearing was last Saturday. 11/24/2022: No changes Reason for continued inpatient stay Substantial Risk for: inability to function Time Spent With Patient Time: Total time managing care of this patient today ____ minutes.
[2022-11-24 18:00] VITALS: BP 100/64; PULSE 67; RESP 18; TEMP 36.2; O2SAT 100
[2022-11-24] MEDS: OLANZapine 10 MG TABLET PO (20:18)
[2022-11-24] MEDS: Donepezil HCl 10 MG TABLET PO (20:18)
[2022-11-25 06:00] VITALS: BP 106/63; PULSE 71; RESP 18; TEMP 36.4; O2SAT 95
[2022-11-25] MEDS: Acetaminophen 325 MG TABLET 975 MG PO ×3 (08:23→20:35)
[2022-11-25] MEDS: Memantine HCl 10 MG TABLET PO ×2 (08:24→20:36)
[2022-11-25] MEDS: Lidocaine 4 % Patch ADH..PATCH 1 PATCH TRANSDERMA (08:27)
--- NOTE | 2022-11-25 12:12 | P.PNPSI_ITS ---
Subjective Subjective Date of Service: 11/25/22 Reason For Visit: F31.9, F43.25 Interim History: met with patient. Discussed with Nursing. Continuing to accept medications which is positive. Reports today feeling slightly better. A breakfast. Regarding back pain reports that when he walks around it helps. Encouraged to do same. No medication concerns. Sleep okay. Medication Compliance: Yes Side effects from medications: No Attending Groups: No Review of Systems Acute medical concerns: No Review of Systems Review of Systems Chronic back pain Mental Status Exam Mental Status Exam Narrative: Pt is alert but not oriented; In bed. Behavior is friendly, patient is not in distress; dressed in casual attire and unkempt; mood is described as good and affect congruent; eye contact appropriate; Speech is normal rate, volume and prosody; i thought process tangential; Thought content on baxk chronic pain from past injury; or on various random topics; does not express any SI/HI. No AVH Patients insight and judgment impaired Diagnostics Vital Signs (24Hr): Vital Signs - 24 hr 11/24/22 18:00 11/25/22 06:00 Temperature 97.1 F 97.5 F Pulse Rate 67 71 Respiratory Rate 18 18 Blood Pressure 100/64 106/63 Pulse Oximetry 100 95 Oxygen Delivery Method Room Air Room Air BMI result Body Mass Index 26.7 Labs 10/13/22 06:26 Medications Medications Current Medications Acetaminophen (Acetaminophen 325 Mg Tablet) 975 mg PO TID [facility] Last Admin: 11/25/22 08:23 Dose: 975 mg Al Hydroxide/Mg Hydroxide (Magnesium Hydrox/Alum Hydrox 30 Ml Oral.Susp) 30 ml PO Q6H PRN PRN Reason: Heartburn/Nausea Donepezil HCl (Donepezil Hcl 10 Mg Tablet) 10 mg PO BEDTIME [facility] Last Admin: 11/24/22 20:18 Dose: 10 mg Hydroxyzine HCl (Hydroxyzine Hcl 25 Mg Tablet) 25 mg PO Q6H PRN PRN Reason: Anxiety Last Admin: 11/02/22 00:20 Dose: 25 mg Lidocaine (Lidocaine 4 % Patch Adh..Patch) 1 patch TRANSDERMA DAILY [facility]; Protocol Last Admin: 11/25/22 08:27 Dose: 1 patch Magnesium Hydroxide (Milk Of Magnesia 30 Ml Oral.Susp) 30 ml PO DAILY PRN PRN Reason: Constipation Memantine (Memantine Hcl 10 Mg Tablet) 10 mg PO BID [facility] Last Admin: 11/25/22 08:24 Dose: 10 mg Olanzapine (Olanzapine 2.5 Mg Tablet) 2.5 mg PO TID PRN PRN Reason: agitation Last Admin: 11/11/22 09:52 Dose: 2.5 mg Olanzapine (Olanzapine 10 Mg Tablet) 10 mg PO BEDTIME [facility] Last Admin: 11/24/22 20:18 Dose: 10 mg Trazodone HCl (Trazodone Hcl 50 Mg Tablet) 50 mg PO BEDTIME PRN PRN Reason: Insomnia Last Admin: 11/20/22 20:20 Dose: 50 mg Allergies Allergies Allergy/AdvReac Type Severity Reaction Status Date / Time pollen extracts Allergy Unknown unknown Verified 04/21/22 14:56 latex Allergy Rash Verified 10/31/22 18:30 Assessment & Plan Assessment & Plan (1) Bipolar disorder, now depressed: Status: Acute Code(s): F31.30 - Bipolar disorder, current episode depressed, mild or moderate severity, unspecified (2) Cognitive impairment: Status: Acute Code(s): R41.89 - Other symptoms and signs involving cognitive functions and awareness Plan 82 year old male with history hyperlipidemia, tubular adenoma colon (last colonoscopy 12/21), BPH, chronic normocytic anemia, osteoarthritis shoulders and hips s/p b/l hip arthroplasty, chronic low back pain with lumbar stenosis, depression, hx rotator cuff tear, actinic keratosis, and atypical melanocytic hyperplasia admitted to geriatric psychiatry from [facility] with consult placed to medical hospitalist service for medical H&P. 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 Can use ibuprofen 600mg q6h prn as well if topical diclofenac unavailable. #Chronic left hip pain -per ED provider note at [facility], patient foot got stuck in a hole several months ago and fell onto the left hip. Subsequent imaging studies including x-ray of the hip/pelvis and CT of the pelvis are negative for fracture -Pain management as above -outpt follow up Pt refused physical extensive. Extensive review of prior note and records from [facility] conducted as noted above. Plan 1. Gather collateral information. His niece called and she provide more collateral information to the foster care social worker. Currently the patient is homeless and he is unable to take care of himself. We had to filed for Section 7 and 8 since the patient refused to sign the conditional voluntary. 2. Continue with Zyprexa at bedtime. We are increasing Zyprexa up to 10 mg p.o. q.h.s. in October 27 since the patient had been more intrusive and disinhibited. 3. The occupational therapist did an Hebert test and he scored 3.2, he used to be on 3.6 a few months ago. That means that he will need 24 hour care. We are going to start Aricept to target dementia. So far the patient did not have any side effects still cognitively impaired. 4. Namenda 5 mg p.o. b.i.d. started to target dementia. It was increased up to 10 mg p.o. b.i.d. 5. Filed for guardianship. Waiting for the paperwork since the hearing was last Saturday. 11/25/2022: No changes Reason for continued inpatient stay Substantial Risk for: inability to function Time Spent With Patient Time: Total time managing care of this patient today ____ minutes.
[2022-11-25 18:00] VITALS: BP 97/53; PULSE 66; RESP 16; TEMP 36.4; O2SAT 94
[2022-11-25] MEDS: Donepezil HCl 10 MG TABLET PO (20:36)
[2022-11-25] MEDS: traZODone HCL 50 MG TABLET PO (20:36)
[2022-11-25] MEDS: OLANZapine 10 MG TABLET PO (20:36)
[2022-11-26 07:55] VITALS: BP 113/65; PULSE 73; RESP 16; TEMP 36.8; O2SAT 96
[2022-11-26] MEDS: Acetaminophen 325 MG TABLET 975 MG PO ×3 (08:14→20:15)
[2022-11-26] MEDS: Memantine HCl 10 MG TABLET PO ×2 (08:14→20:17)
[2022-11-26] MEDS: Lidocaine 4 % Patch ADH..PATCH 1 PATCH TRANSDERMA (08:14)
--- NOTE | 2022-11-26 17:10 | P.PNPSI_ITS ---
Subjective Subjective Date of Service: 11/26/22 Reason For Visit: F31.9, F43.25 Interim History: Discussed with Nursing. Continuing to accept medications which is positive. Reports today feeling slightly better. A breakfast. Regarding back pain reports that when he walks around it helps. Some irritability Medication Compliance: Yes Side effects from medications: No Attending Groups: No Review of Systems Acute medical concerns: No Mental Status Exam Mental Status Exam Patient Appearance: Unkempt Patient Orientation: Person and Situation Level of Consciousness: Awake Patient Behavior: Guarded and Passive Mood Description: Withdrawn Affect Description: Constricted Patient Cognition Impaired: Yes Ability to Follow Directions: Fair Speech Pattern: Clear Hallucinations: None Delusions: Not Present Thought Process: Illogical and Distracted Judgement: Poor Diagnostics Vital Signs (24Hr): Vital Signs - 24 hr 11/25/22 18:00 11/26/22 07:55 Temperature 97.6 F 98.2 F Pulse Rate 66 73 Respiratory Rate 16 16 Blood Pressure 97/53 L 113/65 Pulse Oximetry 94 96 Oxygen Delivery Method Room Air Room Air BMI result Body Mass Index 26.7 Labs 10/13/22 06:26 Medications Medications Current Medications Acetaminophen (Acetaminophen 325 Mg Tablet) 975 mg PO TID [facility] Last Admin: 11/26/22 14:38 Dose: 975 mg Al Hydroxide/Mg Hydroxide (Magnesium Hydrox/Alum Hydrox 30 Ml Oral.Susp) 30 ml PO Q6H PRN PRN Reason: Heartburn/Nausea Donepezil HCl (Donepezil Hcl 10 Mg Tablet) 10 mg PO BEDTIME [facility] Last Admin: 11/25/22 20:36 Dose: 10 mg Hydroxyzine HCl (Hydroxyzine Hcl 25 Mg Tablet) 25 mg PO Q6H PRN PRN Reason: Anxiety Last Admin: 11/02/22 00:20 Dose: 25 mg Lidocaine (Lidocaine 4 % Patch Adh..Patch) 1 patch TRANSDERMA DAILY [facility]; Protocol Last Admin: 11/26/22 08:14 Dose: 1 patch Magnesium Hydroxide (Milk Of Magnesia 30 Ml Oral.Susp) 30 ml PO DAILY PRN PRN Reason: Constipation Memantine (Memantine Hcl 10 Mg Tablet) 10 mg PO BID [facility] Last Admin: 11/26/22 08:14 Dose: 10 mg Olanzapine (Olanzapine 2.5 Mg Tablet) 2.5 mg PO TID PRN PRN Reason: agitation Last Admin: 11/11/22 09:52 Dose: 2.5 mg Olanzapine (Olanzapine 10 Mg Tablet) 10 mg PO BEDTIME [facility] Last Admin: 11/25/22 20:36 Dose: 10 mg Trazodone HCl (Trazodone Hcl 50 Mg Tablet) 50 mg PO BEDTIME PRN PRN Reason: Insomnia Last Admin: 11/25/22 20:36 Dose: 50 mg Allergies Allergies Allergy/AdvReac Type Severity Reaction Status Date / Time pollen extracts Allergy Unknown unknown Verified 04/21/22 14:56 latex Allergy Rash Verified 10/31/22 18:30 Assessment & Plan Assessment & Plan (1) Bipolar disorder, now depressed: Status: Acute Code(s): F31.30 - Bipolar disorder, current episode depressed, mild or moderate severity, unspecified (2) Cognitive impairment: Status: Acute Code(s): R41.89 - Other symptoms and signs involving cognitive functions and awareness Plan 82 year old male with history hyperlipidemia, tubular adenoma colon (last col onoscopy 12/21), BPH, chronic normocytic anemia, osteoarthritis shoulders and hips s/p b/l hip arthroplasty, chronic low back pain with lumbar stenosis, depression, hx rotator cuff tear, actinic keratosis, and atypical melanocytic hyperplasia admitted to geriatric psychiatry from [facility] with consult placed to medical hospitalist service for medical H&P. 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 Can use ibuprofen 600mg q6h prn as well if topical diclofenac unavailable. #Chronic left hip pain -per ED provider note at [facility], patient foot got stuck in a hole several months ago and fell onto the left hip. Subsequent imaging studies including x-ray of the hip/pelvis and CT of the pelvis are negative for fracture -Pain management as above -outpt follow up Pt refused physical extensive. Extensive review of prior note and records from [facility] conducted as noted above. Plan 1. Gather collateral information. His niece called and she provide more c ollateral information to the social media community manager. Currently the patient is homeless and he is unable to take care of himself. We had to filed for Section 7 and 8 since the patient refused to sign the conditional voluntary. 2. Continue with Zyprexa at bedtime. We are increasing Zyprexa up to 10 mg p.o. q.h.s. in October 27 since the patient had been more intrusive and disinhibited. 3. The occupational therapist did an Hebert test and he scored 3.2, he used to be on 3.6 a few months ago. That means that he will need 24 hour care. We are going to start Aricept to target dementia. So far the patient did not have any side effects still cognitively impaired. 4. Namenda 5 mg p.o. b.i.d. started to target dementia. It was increased up to 10 mg p.o. b.i.d. 5. Filed for guardianship. Waiting for the paperwork since the hearing was last Saturday. 11/25/2022: No changes 11/26/2022 Continue plan of care Namenda olanzapine Reason for continued inpatient stay Substantial Risk for: inability to function and rapid decompensation Time Spent With Patient Time: Total time managing care of this patient today ____ minutes.
[2022-11-26 18:00] VITALS: BP 102/60; PULSE 78; RESP 16; TEMP 36.9; O2SAT 96
[2022-11-26] MEDS: traZODone HCL 50 MG TABLET PO (20:17)
[2022-11-26] MEDS: Donepezil HCl 10 MG TABLET PO (20:17)
[2022-11-26] MEDS: OLANZapine 10 MG TABLET PO (20:17)
[2022-11-27 06:00] VITALS: BP 100/64; PULSE 74; RESP 18; TEMP 36.9; O2SAT 98
[2022-11-27] MEDS: Acetaminophen 325 MG TABLET 975 MG PO ×2 (08:28→20:12)
[2022-11-27] MEDS: Memantine HCl 10 MG TABLET PO ×2 (08:28→20:12)
[2022-11-27] MEDS: Lidocaine 4 % Patch ADH..PATCH 1 PATCH TRANSDERMA (08:43)
--- NOTE | 2022-11-27 10:05 | P.HPPSP_ITS ---
HPI Chief Complaint: F31.9, F43.25 HPI Past Psychiatric History: IP: Wilfrid SI 04/22/22 [facility] 12/2019 OP: No connections currently Trials: Sertraline, Hydroxyzine [facility] Medical History Atypical melanocytic hyperplasia Bipolar disorder, now depressed BPH loc w/o ur obs/LUTS Depression Eczema Housing situation unstable Hyperlipidemia Hypogonadism in male Lumbar stenosis Osteoarthritis Tubular adenoma of colon Surgical History H/O colonoscopy History of bilateral hip arthroplasty History of melanoma excision Hx of repair of left rotator cuff S/P inguinal hernia repair Family History: Depression, Bipolar Disorder Social History: One sister, one brother Never , No children 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 Legally on parole- hx of disputes with tenants and arrest for burning flags (activist activity) Currently receives SSI/SSDI forced sale of home and s/p long legal adair in 2021 (due to allowing homeless people to remain in the home) Trauma History: Loss of his home Diagnostics Vital Signs (24Hr): Vital Signs - 24 hr 11/26/22 18:00 11/27/22 06:00 Temperature 98.4 F 98.4 F Pulse Rate 78 74 Respiratory Rate 16 18 Blood Pressure 102/60 100/64 Pulse Oximetry 96 98 Oxygen Delivery Method Room Air Room Air BMI result Body Mass Index 26.7 Labs 10/13/22 06:26 Meds/Allergies Allergies Allergies Allergy/AdvReac Type Severity Reaction Status Date / Time pollen extracts Allergy Unknown unknown Verified 04/21/22 14:56 latex Allergy Rash Verified 10/31/22 18:30 Assessment & Plan Certification I certify that partial hospital treatment is medically necessary due to the symptoms and problems resulting from the patient's mental illness and the failure to treat the patient at the partial hospital level of care would likely result in the patient requiring inpatient psychiatric care which could not be prevented at a less intensive level of care. Time Spent With Patient Time: Total time managing care of this patient today ____ minutes.
--- NOTE | 2022-11-27 10:39 | P.PNPSI_ITS ---
Subjective Subjective Date of Service: 11/27/22 Reason For Visit: F31.9, F43.25 Subjective Notes: Section 8 Interim History: . Patient some patient somewhat dysphoric withdrawn has been more cooperative regarding medication he does have a guardian assigned Medication Compliance: Intermittent Mental Status Exam Mental Status Exam Patient Appearance: Unkempt Patient Orientation: Person and Situation Level of Consciousness: Awake Patient Behavior: Guarded and Passive Mood Description: Withdrawn, Constricted and Apprehensive Affect Description: Constricted Patient Cognition Impaired: Yes Ability to Follow Directions: Fair Speech Pattern: Clear Hallucinations: None Delusions: Not Present Thought Process: Illogical and Distracted Judgement: Poor Diagnostics Vital Signs (24Hr): Vital Signs - 24 hr 11/26/22 18:00 11/27/22 06:00 Temperature 98.4 F 98.4 F Pulse Rate 78 74 Respiratory Rate 16 18 Blood Pressure 102/60 100/64 Pulse Oximetry 96 98 Oxygen Delivery Method Room Air Room Air BMI result Body Mass Index 26.7 Labs 10/13/22 06:26 Medications Medications Current Medications Acetaminophen (Acetaminophen 325 Mg Tablet) 975 mg PO TID [facility] Last Admin: 11/27/22 08:28 Dose: 975 mg Al Hydroxide/Mg Hydroxide (Magnesium Hydrox/Alum Hydrox 30 Ml Oral.Susp) 30 ml PO Q6H PRN PRN Reason: Heartburn/Nausea Donepezil HCl (Donepezil Hcl 10 Mg Tablet) 10 mg PO BEDTIME [facility] Last Admin: 11/26/22 20:17 Dose: 10 mg Hydroxyzine HCl (Hydroxyzine Hcl 25 Mg Tablet) 25 mg PO Q6H PRN PRN Reason: Anxiety Last Admin: 11/02/22 00:20 Dose: 25 mg Lidocaine (Lidocaine 4 % Patch Adh..Patch) 1 patch TRANSDERMA DAILY [facility]; Protocol Last Admin: 11/27/22 08:43 Dose: 1 patch Magnesium Hydroxide (Milk Of Magnesia 30 Ml Oral.Susp) 30 ml PO DAILY PRN PRN Reason: Constipation Memantine (Memantine Hcl 10 Mg Tablet) 10 mg PO BID [facility] Last Admin: 11/27/22 08:28 Dose: 10 mg Olanzapine (Olanzapine 2.5 Mg Tablet) 2.5 mg PO TID PRN PRN Reason: agitation Last Admin: 11/11/22 09:52 Dose: 2.5 mg Olanzapine (Olanzapine 10 Mg Tablet) 10 mg PO BEDTIME [facility] Last Admin: 11/26/22 20:17 Dose: 10 mg Trazodone HCl (Trazodone Hcl 50 Mg Tablet) 50 mg PO BEDTIME PRN PRN Reason: Insomnia Last Admin: 11/26/22 20:17 Dose: 50 mg Allergies Allergies Allergy/AdvReac Type Severity Reaction Status Date / Time pollen extracts Allergy Unknown unknown Verified 04/21/22 14:56 latex Allergy Rash Verified 10/31/22 18:30 Assessment & Plan Assessment & Plan (1) Bipolar disorder, now depressed: Status: Acute Code(s): F31.30 - Bipolar disorder, current episode depressed, mild or moderate severity, unspecified (2) Cognitive impairment: Status: Acute Code(s): R41.89 - Other symptoms and signs involving cognitive functions and awareness Plan 82 year old male with history hyperlipidemia, tubular adenoma colon (last colonoscopy 12/21), BPH, chronic normocytic anemia, osteoarthritis shoulders and hips s/p b/l hip arthroplasty, chronic low back pain with lumbar stenosis, depression, hx rotator cuff tear, actinic keratosis, and atypical melanocytic hyperplasia admitted to geriatric psychiatry from [facility] with consult placed to medical hospitalist service for medical H&P. 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 Can use ibuprofen 600mg q6h prn as well if topical diclofenac unavailable. #Chronic left hip pain -per ED provider note at [facility], patient foot got stuck in a hole several months ago and fell onto the left hip. Subsequent imaging studies including x-ray of the hip/pelvis and CT of the pelvis are negative for fracture -Pain management as above -outpt follow up Pt refused physical extensive. Extensive review of prior note and records from [facility] conducted as noted above. Plan 1. Gather collateral information. His niece called and she provide more collateral information to the clinical social work therapist. Currently the patient is homeless and he is unable to take care of himself. We had to filed for Section 7 and 8 since the patient refused to sign the conditional voluntary. 2. Continue with Zyprexa at bedtime. We are increasing Zyprexa up to 10 mg p.o. q.h.s. in October 27 since the patient had been more intrusive and disinhibited. 3. The occupational therapist did an Hebert test and he scored 3.2, he used to be on 3.6 a few months ago. That means that he will need 24 hour care. We are going to start Aricept to target dementia. So far the patient did not have any side effects still cognitively impaired. 4. Namenda 5 mg p.o. b.i.d. started to target dementia. It was increased up to 10 mg p.o. b.i.d. 5. Filed for guardianship. Waiting for the paperwork since the hearing was last Saturday. 11/25/2022: No changes 11/26/2022 Continue plan of care Namenda olanzapine 11/27/2022 Patient is mood somewhat less irritable he is withdrawn continue plan of care discharge planning Informed Consent: does not understand Reason for continued inpatient stay Substantial Risk for: inability to function and rapid decompensation Time Spent With Patient Time: Total time managing care of this patient today ____ minutes.
[2022-11-27 20:00] VITALS: BP 113/85; PULSE 61; RESP 16; TEMP 36.3; O2SAT 93
[2022-11-27] MEDS: Donepezil HCl 10 MG TABLET PO (20:12)
[2022-11-27] MEDS: OLANZapine 10 MG TABLET PO (20:12)
[2022-11-28 08:06] VITALS: BP 103/68; PULSE 70; RESP 16; TEMP 36.2; O2SAT 93
[2022-11-28] MEDS: Acetaminophen 325 MG TABLET 975 MG PO ×2 (08:38→20:46)
[2022-11-28] MEDS: Memantine HCl 10 MG TABLET PO ×2 (08:38→20:47)
[2022-11-28 18:00] VITALS: BP 120/71; PULSE 63; RESP 18; TEMP 36.3; O2SAT 96
--- NOTE | 2022-11-28 19:30 | P.PNPSI_ITS ---
Subjective Subjective Date of Service: 11/28/22 Reason For Visit: F31.9, F43.25 Subjective Notes: Section 8 Guardianship: Yes Interim History: The patient was somewhat irritable withdrawn Medication Compliance: Yes Attending Groups: No Review of Systems Medical Review of Systems: changed Review of Systems Review of Systems Chronic back pain Yes Unobtainable due to mental status Mental Status Exam Mental Status Exam Narrative: Pt is alert but not oriented; In bed. Behavior is friendly, patient is not in distress; dressed in casual attire and unkempt; mood is described as good and affect congruent; eye contact appropriate; Speech is normal rate, volume and p rosody; i thought process tangential; Thought content on baxk chronic pain from past injury; or on various random topics; does not express any SI/HI. No AVH Patients insight and judgment impaired Patient Appearance: Unkempt Patient Orientation: Person and Situation Level of Consciousness: Awake Patient Behavior: Guarded and Passive Mood Description: Withdrawn, Constricted and Apprehensive Affect Description: Constricted Patient Cognition Impaired: Yes Ability to Follow Directions: Fair Speech Pattern: Clear Hallucinations: None Delusions: Not Present Thought Process: Illogical and Distracted Judgement: Poor Diagnostics Vital Signs (24Hr): Vital Signs - 24 hr 11/27/22 20:00 11/28/22 08:06 Temperature 97.3 F 97.1 F Pulse Rate 61 70 Respiratory Rate 16 16 Blood Pressure 113/85 103/68 Pulse Oximetry 93 93 Oxygen Delivery Method Room Air Room Air BMI result Body Mass Index 26.7 Labs 10/13/22 06:26 Medications Medications Current Medications Acetaminophen (Acetaminophen 325 Mg Tablet) 975 mg PO TID [facility] Last Admin: 11/28/22 16:12 Dose: Not Given Al Hydroxide/Mg Hydroxide (Magnesium Hydrox/Alum Hydrox 30 Ml Oral.Susp) 30 ml PO Q6H PRN PRN Reason: Heartburn/Nausea Donepezil HCl (Donepezil Hcl 10 Mg Tablet) 10 mg PO BEDTIME [facility] Last Admin: 11/27/22 20:12 Dose: 10 mg Hydroxyzine HCl (Hydroxyzine Hcl 25 Mg Tablet) 25 mg PO Q6H PRN PRN Reason: Anxiety Last Admin: 11/02/22 00:20 Dose: 25 mg Lidocaine (Lidocaine 4 % Patch Adh..Patch) 1 patch TRANSDERMA DAILY [facility]; Protocol Last Admin: 11/28/22 08:42 Dose: Not Given Magnesium Hydroxide (Milk Of Magnesia 30 Ml Oral.Susp) 30 ml PO DAILY PRN PRN Reason: Constipation Memantine (Memantine Hcl 10 Mg Tablet) 10 mg PO BID [facility] Last Admin: 11/28/22 08:38 Dose: 10 mg Olanzapine (Olanzapine 2.5 Mg Tablet) 2.5 mg PO TID PRN PRN Reason: agitation Last Admin: 11/11/22 09:52 Dose: 2.5 mg Olanzapine (Olanzapine 10 Mg Tablet) 10 mg PO BEDTIME [facility] Last Admin: 11/27/22 20:12 Dose: 10 mg Trazodone HCl (Trazodone Hcl 50 Mg Tablet) 50 mg PO BEDTIME PRN PRN Reason: Insomnia Last Admin: 11/26/22 20:17 Dose: 50 mg Allergies Allergies Allergy/AdvReac Type Severity Reaction Status Date / Time pollen extracts Allergy Unknown unknown Verified 04/21/22 14:56 latex Allergy Rash Verified 10/31/22 18:30 Assessment & Plan Assessment & Plan (1) Bipolar disorder, now depressed: Status: Acute Code(s): F31.30 - Bipolar disorder, current episode depressed, mild or moderate severity, unspecified (2) Cognitive impairment: Status: Acute Code(s): R41.89 - Other symptoms and signs involving cognitive functions and awareness Plan 82 year old male with history hyperlipidemia, tubular adenoma colon (last colonoscopy 12/21), BPH, chronic normocytic anemia, osteoarthritis shoulders and hips s/p b/l hip arthroplasty, chronic low back pain with lumbar stenosis, depression, hx rotator cuff tear, actinic keratosis, and atypical melanocytic hyperplasia admitted to geriatric psychiatry from [facility] with consult placed to medical hospitalist service for medical H&P. #Depression/SI -Plan per psychiatry #Hyperlipidemia- reasonably controlled -Total cholesterol 164, LDL 114 -Would not recommend statin at this #BPH -Asymptomatic #Chronic normocytic anemia -H/H stable at 13.3/38.8%, above transfusion threshold #Osteoarthritis/chronic low back pain -he is s/p lumbar laminectomy and has 1.1cm anterolithesis at lumbosacral ju nction -Outpt follow up advised -Recommend tylenol and topical diclofenac if available. Can use ibuprofen 600mg q6h prn as well if topical diclofenac unavailable. #Chronic left hip pain -per ED provider note at [facility], patient foot got stuck in a hole several months ago and fell onto the left hip. Subsequent imaging studies including x-ray of the hip/pelvis and CT of the pelvis are negative for fracture -Pain management as above -outpt follow up Pt refused physical extensive. Extensive review of prior note and records from [facility] conducted as noted above. Plan 1. Gather collateral information. His niece called and she provide more collateral information to the manager social work. Currently the patient is homeless and he is unable to take care of himself. We had to filed for Section 7 and 8 since the patient refused to sign the conditional voluntary. 2. Continue with Zyprexa at bedtime. We are increasing Zyprexa up to 10 mg p.o. q.h.s. in October 27 since the patient had been more intrusive and disinhibited. 3. The occupational therapist did an Hebert test and he scored 3.2, he used to be on 3.6 a few months ago. That means that he will need 24 hour care. We are going to start Aricept to target dementia. So far the patient did not have any side effects still cognitively impaired. 4. Namenda 5 mg p.o. b.i.d. started to target dementia. It was increased up to 10 mg p.o. b.i.d. 5. Filed for guardianship. Waiting for the paperwork since the hearing was last Saturday. 11/25/2022: No changes 11/26/2022 Continue plan of care Namenda olanzapine 11/27/2022 Patient is mood somewhat less irritable he is withdrawn continue plan of care discharge planning Patient educated on: diagnosis and medication risk/benefits Reason for continued inpatient stay Substantial Risk for: harm to self, inability to function and stable for discharge Time Spent With Patient Time: Total time managing care of this patient today ____ minutes.
[2022-11-28] MEDS: traZODone HCL 50 MG TABLET PO (20:46)
[2022-11-28] MEDS: Donepezil HCl 10 MG TABLET PO (20:47)
[2022-11-28] MEDS: OLANZapine 10 MG TABLET PO (20:47)
[2022-11-29 07:00] VITALS: BMI 23.6
[2022-11-29 10:03] VITALS: BP 104/55; PULSE 68; RESP 16; TEMP 37; O2SAT 94
[2022-11-29] MEDS: Acetaminophen 325 MG TABLET 975 MG PO ×2 (10:05→20:29)
[2022-11-29] MEDS: Lidocaine 4 % Patch ADH..PATCH 1 PATCH TRANSDERMA (10:05)
[2022-11-29] MEDS: Memantine HCl 10 MG TABLET PO ×2 (10:06→20:30)
[2022-11-29 18:00] VITALS: BP 121/63; PULSE 71; RESP 18; TEMP 36.3; O2SAT 95
[2022-11-29] MEDS: Donepezil HCl 10 MG TABLET PO (20:30)
[2022-11-29] MEDS: OLANZapine 10 MG TABLET PO (20:30)
[2022-11-29] MEDS: traZODone HCL 50 MG TABLET PO (20:31)
[2022-11-30 07:52] VITALS: BP 127/75; PULSE 70; RESP 18; TEMP 35.9; O2SAT 95
[2022-11-30] MEDS: Lidocaine 4 % Patch ADH..PATCH 1 PATCH TRANSDERMA (08:29)
[2022-11-30] MEDS: Acetaminophen 325 MG TABLET 975 MG PO ×3 (08:29→20:35)
[2022-11-30] MEDS: Memantine HCl 10 MG TABLET PO ×2 (08:29→20:38)
[2022-11-30 18:00] VITALS: BP 131/88; PULSE 65; RESP 14; TEMP 36.2; O2SAT 96
[2022-11-30] MEDS: OLANZapine 10 MG TABLET PO (20:34)
[2022-11-30] MEDS: Donepezil HCl 10 MG TABLET PO (20:34)
[2022-11-30] MEDS: traZODone HCL 50 MG TABLET PO (20:35)
--- NOTE | 2022-12-01 00:22 | P.PNPSI_ITS ---
Subjective Subjective Date of Service: 11/30/22 Reason For Visit: F31.9, F43.25 Subjective Notes: Section 8 Guardianship: Yes Interim History: Patient seen 11/29 and 11 30 22 patient less labile less irritable when seen more cooperative mood more stable less labile. Seems to have improved spirits less reactivity more engaged Medication Compliance: Yes Mental Status Exam Mental Status Exam Narrative: Pt is alert but not oriented; In bed. Behavior is friendly, patient is not in distress; dressed in casual attire and unkempt; mood is described as good and affect congruent; eye contact appropriate; Speech is normal rate, volume and prosody; i thought process tangential; Thought content on doing physical exerc ise doing rehab confused but not in distress no gross paranoia or delusional material does not express any SI/HI. No AVH Patients insight and judgment impaired Diagnostics Vital Signs (24Hr): Vital Signs - 24 hr 11/30/22 07:52 11/30/22 18:00 Temperature 96.7 F L 97.1 F Pulse Rate 70 65 Respiratory Rate 18 14 Blood Pressure 127/75 131/88 Pulse Oximetry 95 96 Oxygen Delivery Method Room Air Room Air BMI result Body Mass Index 23.6 Labs 10/13/22 06:26 Medications Medications Current Medications Acetaminophen (Acetaminophen 325 Mg Tablet) 975 mg PO TID [facility] Last Admin: 11/30/22 20:35 Dose: 975 mg Al Hydroxide/Mg Hydroxide (Magnesium Hydrox/Alum Hydrox 30 Ml Oral.Susp) 30 ml PO Q6H PRN PRN Reason: Heartburn/Nausea Donepezil HCl (Donepezil Hcl 10 Mg Tablet) 10 mg PO BEDTIME [facility] Last Admin: 11/30/22 20:34 Dose: 10 mg Hydroxyzine HCl (Hydroxyzine Hcl 25 Mg Tablet) 25 mg PO Q6H PRN PRN Reason: Anxiety Last Admin: 11/02/22 00:20 Dose: 25 mg Lidocaine (Lidocaine 4 % Patch Adh..Patch) 1 patch TRANSDERMA DAILY [facility]; Protocol Last Admin: 11/30/22 08:29 Dose: 1 patch Magnesium Hydroxide (Milk Of Magnesia 30 Ml Oral.Susp) 30 ml PO DAILY PRN PRN Reason: Constipation Memantine (Memantine Hcl 10 Mg Tablet) 10 mg PO BID [facility] Last Admin: 11/30/22 20:38 Dose: 10 mg Olanzapine (Olanzapine 2.5 Mg Tablet) 2.5 mg PO TID PRN PRN Reason: agitation Last Admin: 11/11/22 09:52 Dose: 2.5 mg Olanzapine (Olanzapine 10 Mg Tablet) 10 mg PO BEDTIME [facility] Last Admin: 11/30/22 20:34 Dose: 10 mg Trazodone HCl (Trazodone Hcl 50 Mg Tablet) 50 mg PO BEDTIME PRN PRN Reason: Insomnia Last Admin: 11/30/22 20:35 Dose: 50 mg Allergies Allergies Allergy/AdvReac Type Severity Reaction Status Date / Time pollen extracts Allergy Unknown unknown Verified 04/21/22 14:56 latex Allergy Rash Verified 10/31/22 18:30 Assessment & Plan Assessment & Plan (1) Bipolar disorder, now depressed: Status: Acute Code(s): F31.30 - Bipolar disorder, current episode depressed, mild or moderate severity, unspecified (2) Cognitive impairment: Status: Acute Code(s): R41.89 - Other symptoms and signs involving cognitive functions and awareness Plan 82 year old male with history hyperlipidemia, tubular adenoma colon (last colo noscopy 12/21), BPH, chronic normocytic anemia, osteoarthritis shoulders and hips s/p b/l hip arthroplasty, chronic low back pain with lumbar stenosis, depression, hx rotator cuff tear, actinic keratosis, and atypical melanocytic hyperplasia admitted to geriatric psychiatry from [facility] with consult placed to medical hospitalist service for medical H&P. 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 Can use ibuprofen 600mg q6h prn as well if topical diclofenac unavailable. #Chronic left hip pain -per ED provider note at [facility], patient foot got stuck in a hole several months ago and fell onto the left hip. Subsequent imaging studies including x-ray of the hip/pelvis and CT of the pelvis are negative for fracture -Pain management as above -outpt follow up Pt refused physical extensive. Extensive review of prior note and records from [facility] conducted as noted above. Plan 1. Gather collateral information. His niece called and she provide more co llateral information to the social service technician. Currently the patient is homeless and he is unable to take care of himself. We had to filed for Section 7 and 8 since the patient refused to sign the conditional voluntary. 2. Continue with Zyprexa at bedtime. We are increasing Zyprexa up to 10 mg p.o. q.h.s. in October 27 since the patient had been more intrusive and disinhibited. 3. The occupational therapist did an Hebert test and he scored 3.2, he used to be on 3.6 a few months ago. That means that he will need 24 hour care. We are going to start Aricept to target dementia. So far the patient did not have any side effects still cognitively impaired. 4. Namenda 5 mg p.o. b.i.d. started to target dementia. It was increased up to 10 mg p.o. b.i.d. 5. Filed for guardianship. Waiting for the paperwork since the hearing was last Saturday. 11/25/2022: No changes 11/26/2022 Continue plan of care Namenda olanzapine 11/27/2022 Patient is mood somewhat less irritable he is withdrawn continue plan of care discharge planning 11/30/22 Continue plan of care discharge planning patient less labile less irritable Reason for continued inpatient stay Substantial Risk for: inability to function and rapid decompensation Time Spent With Patient Time: Total time managing care of this patient today ____ minutes.
[2022-12-01 08:00] VITALS: BP 153/68; PULSE 63; RESP 16; TEMP 36.6; O2SAT 97
[2022-12-01] MEDS: Acetaminophen 325 MG TABLET 975 MG PO ×3 (08:32→20:46)
[2022-12-01] MEDS: Lidocaine 4 % Patch ADH..PATCH 1 PATCH TRANSDERMA (08:32)
[2022-12-01] MEDS: Memantine HCl 10 MG TABLET PO ×2 (08:33→20:48)
--- NOTE | 2022-12-01 12:47 | HO.PSYCHPN ---
Subjective Subjective Date of Service: 12/01/22 Reason For Visit: F31.9, F43.25 Interim History: Patient was seen and discussed in rounds today. Records and plans were reviewed. He continues to be confused. His med and meal compliant. Eating and sleeping adequately. Some back pain reported. He has been irritable and angry at times and negative toward staff. No changes Medication Compliance: Yes (Were made today) Review of Systems Review of Systems Yes Unobtainable due to mental status Mental Status Exam Mental Status Exam Narrative: In today's visit he is alert, not oriented to time and place. Speech is minimal. No eye contact. Affect is constricted and flat. No acute signs of psychosis. Cognitively is impaired. No dangerous behaviors. Judgment is impaired Diagnostics Vital Signs (24Hr): Vital Signs - 24 hr 11/30/22 18:00 12/01/22 08:00 Temperature 97.1 F 97.9 F Pulse Rate 65 63 Respiratory Rate 14 16 Blood Pressure 131/88 153/68 H Pulse Oximetry 96 97 Oxygen Delivery Method Room Air Room Air BMI result Body Mass Index 23.6 Labs 10/13/22 06:26 Medications Medications Current Medications Acetaminophen (Acetaminophen 325 Mg Tablet) 975 mg PO TID [facility] Last Admin: 12/01/22 08:32 Dose: 975 mg Al Hydroxide/Mg Hydroxide (Magnesium Hydrox/Alum Hydrox 30 Ml Oral.Susp) 30 ml PO Q6H PRN PRN Reason: Heartburn/Nausea Donepezil HCl (Donepezil Hcl 10 Mg Tablet) 10 mg PO BEDTIME [facility] Last Admin: 11/30/22 20:34 Dose: 10 mg Hydroxyzine HCl (Hydroxyzine Hcl 25 Mg Tablet) 25 mg PO Q6H PRN PRN Reason: Anxiety Last Admin: 11/02/22 00:20 Dose: 25 mg Lidocaine (Lidocaine 4 % Patch Adh..Patch) 1 patch TRANSDERMA DAILY [facility]; Protocol Last Admin: 12/01/22 08:32 Dose: 1 patch Magnesium Hydroxide (Milk Of Magnesia 30 Ml Oral.Susp) 30 ml PO DAILY PRN PRN Reason: Constipation Memantine (Memantine Hcl 10 Mg Tablet) 10 mg PO BID [facility] Last Admin: 12/01/22 08:33 Dose: 10 mg Olanzapine (Olanzapine 2.5 Mg Tablet) 2.5 mg PO TID PRN PRN Reason: agitation Last Admin: 11/11/22 09:52 Dose: 2.5 mg Olanzapine (Olanzapine 10 Mg Tablet) 10 mg PO BEDTIME [facility] Last Admin: 11/30/22 20:34 Dose: 10 mg Trazodone HCl (Trazodone Hcl 50 Mg Tablet) 50 mg PO BEDTIME PRN PRN Reason: Insomnia Last Admin: 11/30/22 20:35 Dose: 50 mg Allergies Allergies Allergy/AdvReac Type Severity Reaction Status Date / Time pollen extracts Allergy Unknown unknown Verified 04/21/22 14:56 latex Allergy Rash Verified 10/31/22 18:30 Assessment & Plan Assessment & Plan (1) Bipolar disorder, now depressed: Status: Acute Code(s): F31.30 - Bipolar disorder, current episode depressed, mild or moderate severity, unspecified (2) Cognitive impairment: Status: Acute Code(s): R41.89 - Other symptoms and signs involving cognitive functions and awareness Plan 82 year old male with history hyperlipidemia, tubular adenoma colon (last colonoscopy 12/21), BPH, chronic normocytic anemia, osteoarthritis shoulders and hips s/p b/l hip arthroplasty, chronic low back pain with lumbar stenosis, depression, hx rotator cuff tear, actinic keratosis, and atypical melanocytic hyperplasia admitted to geriatric psychiatry from [facility] with consult placed to medical hospitalist service for medical H&P. 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 Can use ibuprofen 600mg q6h prn as well if topical diclofenac unavailable. #Chronic left hip pain -per ED provider note at [facility], patient foot got stuck in a hole several months ago and fell onto the left hip. Subsequent imaging studies including x-ray of the hip/pelvis and CT of the pelvis are negative for fracture -Pain management as above -outpt follow up Pt refused physical extensive. Extensive review of prior note and records from [facility] conducted as noted above. Plan 1. Gather collateral information. His niece called and she provide more collateral information to the secondary social studies teacher. Currently the patient is homeless and he is unable to take care of himself. We had to filed for Section 7 and 8 since the patient refused to sign the conditional voluntary. 2. Continue with Zyprexa at bedtime. We are increasing Zyprexa up to 10 mg p.o. q.h.s. in October 27 since the patient had been more intrusive and disinhibited. 3. The occupational therapist did an Hebert test and he scored 3.2, he used to be on 3.6 a few months ago. That means that he will need 24 hour care. We are going to start Aricept to target dementia. So far the patient did not have any side effects still cognitively impaired. 4. Namenda 5 mg p.o. b.i.d. started to target dementia. It was increased up to 10 mg p.o. b.i.d. 5. Filed for guardianship. Waiting for the paperwork since the hearing was last Saturday. 11/25/2022: No changes 11/26/2022 Continue plan of care Namenda olanzapine 11/27/2022 Patient is mood somewhat less irritable he is withdrawn continue plan of care discharge planning 12/01: Continue current regimen and plans Reason for continued inpatient stay Substantial Risk for: inability to function Time Spent With Patient Time: Total time managing care of this patient today ____ minutes.
[2022-12-01 18:00] VITALS: BP 106/58; PULSE 61; RESP 18; TEMP 36.4; O2SAT 95
[2022-12-01] MEDS: traZODone HCL 50 MG TABLET PO (20:48)
[2022-12-01] MEDS: Donepezil HCl 10 MG TABLET PO (20:49)
[2022-12-01] MEDS: OLANZapine 10 MG TABLET PO (20:52)
[2022-12-02 06:00] VITALS: BP 105/51; PULSE 62; RESP 16; TEMP 36.5; O2SAT 95
[2022-12-02] MEDS: Acetaminophen 325 MG TABLET 975 MG PO ×3 (08:17→20:05)
[2022-12-02] MEDS: Memantine HCl 10 MG TABLET PO ×2 (08:17→20:06)
[2022-12-02] MEDS: Lidocaine 4 % Patch ADH..PATCH 1 PATCH TRANSDERMA (08:17)
--- NOTE | 2022-12-02 10:43 | HO.PSYCHPN ---
Subjective Subjective Date of Service: 12/02/22 Reason For Visit: F31.9, F43.25 Subjective Notes: Conditional Voluntary Interim History: Patient was seen and discussed in rounds today. Records and plans were reviewed. He is confused and disorganized is but no behavioral issues. Eating and sleeping adequately. No complaints or reports of side effects. No change is made today Medication Compliance: Yes (Were made today) Review of Systems Review of Systems Yes Unobtainable due to mental status Mental Status Exam Mental Status Exam Narrative: In today's visit he is alert, not oriented to time and place. Speech is minimal. No eye contact. Affect is constricted and flat. No acute signs of psychosis. Cognitively is impaired. No dangerous behaviors. Judgment is impaired Diagnostics Vital Signs (24Hr): Vital Signs - 24 hr 12/01/22 18:00 12/02/22 06:00 Temperature 97.6 F 97.7 F Pulse Rate 61 62 Respiratory Rate 18 16 Blood Pressure 106/58 L 105/51 L Pulse Oximetry 95 95 Oxygen Delivery Method Room Air Room Air BMI result Body Mass Index 23.6 Labs 10/13/22 06:26 Medications Medications Current Medications Acetaminophen (Acetaminophen 325 Mg Tablet) 975 mg PO TID [facility] Last Admin: 12/02/22 08:17 Dose: 975 mg Al Hydroxide/Mg Hydroxide (Magnesium Hydrox/Alum Hydrox 30 Ml Oral.Susp) 30 ml PO Q6H PRN PRN Reason: Heartburn/Nausea Donepezil HCl (Donepezil Hcl 10 Mg Tablet) 10 mg PO BEDTIME [facility] Last Admin: 12/01/22 20:49 Dose: 10 mg Hydroxyzine HCl (Hydroxyzine Hcl 25 Mg Tablet) 25 mg PO Q6H PRN PRN Reason: Anxiety Last Admin: 11/02/22 00:20 Dose: 25 mg Lidocaine (Lidocaine 4 % Patch Adh..Patch) 1 patch TRANSDERMA DAILY [facility]; Protocol Last Admin: 12/02/22 08:17 Dose: 1 patch Magnesium Hydroxide (Milk Of Magnesia 30 Ml Oral.Susp) 30 ml PO DAILY PRN PRN Reason: Constipation Memantine (Memantine Hcl 10 Mg Tablet) 10 mg PO BID [facility] Last Admin: 12/02/22 08:17 Dose: 10 mg Olanzapine (Olanzapine 2.5 Mg Tablet) 2.5 mg PO TID PRN PRN Reason: agitation Last Admin: 11/11/22 09:52 Dose: 2.5 mg Olanzapine (Olanzapine 10 Mg Tablet) 10 mg PO BEDTIME [facility] Last Admin: 12/01/22 20:52 Dose: 10 mg Trazodone HCl (Trazodone Hcl 50 Mg Tablet) 50 mg PO BEDTIME PRN PRN Reason: Insomnia Last Admin: 12/01/22 20:48 Dose: 50 mg Allergies Allergies Allergy/AdvReac Type Severity Reaction Status Date / Time pollen extracts Allergy Unknown unknown Verified 04/21/22 14:56 latex Allergy Rash Verified 10/31/22 18:30 Assessment & Plan Assessment & Plan (1) Bipolar disorder, now depressed: Status: Acute Code(s): F31.30 - Bipolar disorder, current episode depressed, mild or moderate severity, unspecified (2) Cognitive impairment: Status: Acute Code(s): R41.89 - Other symptoms and signs involving cognitive functions and awareness Plan 82 year old male with history hyperlipidemia, tubular adenoma colon (last colonoscopy 12/21), BPH, chronic normocytic anemia, osteoarthritis shoulders and hips s/p b/l hip arthroplasty, chronic low back pain with lumbar stenosis, depression, hx rotator cuff tear, actinic keratosis, and atypical melanocytic hyperplasia admitted to geriatric psychiatry from [facility] with consult placed to medical hospitalist service for medical H&P. 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 Can use ibuprofen 600mg q6h prn as well if topical diclofenac unavailable. #Chronic left hip pain -per ED provider note at [facility], patient foot got stuck in a hole several months ago and fell onto the left hip. Subsequent imaging studies including x-ray of the hip/pelvis and CT of the pelvis are negative for fracture -Pain management as above -outpt follow up Pt refused physical extensive. Extensive review of prior note and records from [facility] conducted as noted above. Plan 1. Gather collateral information. His niece called and she provide more collateral information to the geriatric social worker. Currently the patient is homeless and he is unable to take care of himself. We had to filed for Section 7 and 8 since the patient refused to sign the conditional voluntary. 2. Continue with Zyprexa at bedtime. We are increasing Zyprexa up to 10 mg p.o. q.h.s. in October 27 since the patient had been more intrusive and disinhibited. 3. The occupational therapist did an Hebert test and he scored 3.2, he used to be on 3.6 a few months ago. That means that he will need 24 hour care. We are going to start Aricept to target dementia. So far the patient did not have any side effects still cognitively impaired. 4. Namenda 5 mg p.o. b.i.d. started to target dementia. It was increased up to 10 mg p.o. b.i.d. 5. Filed for guardianship. Waiting for the paperwork since the hearing was last Saturday. 11/25/2022: No changes 11/26/2022 Continue plan of care Namenda olanzapine 11/27/2022 Patient is mood somewhat less irritable he is withdrawn continue plan of care discharge planning 12/01: Continue current regimen and plans 12/02: Continue current plans and regimen Reason for continued inpatient stay Substantial Risk for: rapid decompensation Time Spent With Patient Time: Total time managing care of this patient today ____ minutes.
[2022-12-02 18:00] VITALS: BP 116/64; PULSE 64; RESP 16; TEMP 36.2; O2SAT 96
[2022-12-02] MEDS: Donepezil HCl 10 MG TABLET PO (20:06)
[2022-12-02] MEDS: OLANZapine 10 MG TABLET PO (20:06)
[2022-12-03 08:00] VITALS: BP 106/68; PULSE 62; RESP 16; TEMP 36.4; O2SAT 96
[2022-12-03] MEDS: Lidocaine 4 % Patch ADH..PATCH 1 PATCH TRANSDERMA (08:23)
[2022-12-03] MEDS: Memantine HCl 10 MG TABLET PO ×2 (08:24→20:00)
[2022-12-03] MEDS: Acetaminophen 325 MG TABLET 975 MG PO ×3 (08:24→20:00)
--- NOTE | 2022-12-03 09:48 | P.PNPSI_ITS ---
Subjective Subjective Date of Service: 12/03/22 Reason For Visit: F31.9, F43.25 Subjective Notes: Conditional Voluntary Interim History: Patient was seen and discussed in rounds today. Records and plans were reviewed. He continues to be confused, isolative, spending a lot of time in his room. Staff report that his face is looking blotchy and puffy. Basic metabolic panel was ordered. Eating and sleeping adequately. No other changes or additions today. Medication Compliance: Yes (Were made today) Review of Systems Review of Systems Facial puffiness Yes all other systems are reviewed and are negative Mental Status Exam Mental Status Exam Narrative: In today's visit he is alert, not oriented to time and place. Speech is minimal. No eye contact. Affect is constricted and flat. No acute signs of psychosis. Cognitively is impaired. No dangerous behaviors. Judgment is impaired Diagnostics Vital Signs (24Hr): Vital Signs - 24 hr 12/02/22 18:00 12/03/22 08:00 Temperature 97.2 F 97.5 F Pulse Rate 64 62 Respiratory Rate 16 16 Blood Pressure 116/64 106/68 Pulse Oximetry 96 96 Oxygen Delivery Method Room Air Room Air BMI result Body Mass Index 23.6 Labs 10/13/22 06:26 Medications Medications Current Medications Acetaminophen (Acetaminophen 325 Mg Tablet) 975 mg PO TID [facility] Last Admin: 12/03/22 08:24 Dose: 975 mg Al Hydroxide/Mg Hydroxide (Magnesium Hydrox/Alum Hydrox 30 Ml Oral.Susp) 30 ml PO Q6H PRN PRN Reason: Heartburn/Nausea Donepezil HCl (Donepezil Hcl 10 Mg Tablet) 10 mg PO BEDTIME [facility] Last Admin: 12/02/22 20:06 Dose: 10 mg Hydroxyzine HCl (Hydroxyzine Hcl 25 Mg Tablet) 25 mg PO Q6H PRN PRN Reason: Anxiety Last Admin: 11/02/22 00:20 Dose: 25 mg Lidocaine (Lidocaine 4 % Patch Adh..Patch) 1 patch TRANSDERMA DAILY [facility]; Protocol Last Admin: 12/03/22 08:23 Dose: 1 patch Magnesium Hydroxide (Milk Of Magnesia 30 Ml Oral.Susp) 30 ml PO DAILY PRN PRN Reason: Constipation Memantine (Memantine Hcl 10 Mg Tablet) 10 mg PO BID [facility] Last Admin: 12/03/22 08:24 Dose: 10 mg Olanzapine (Olanzapine 2.5 Mg Tablet) 2.5 mg PO TID PRN PRN Reason: agitation Last Admin: 11/11/22 09:52 Dose: 2.5 mg Olanzapine (Olanzapine 10 Mg Tablet) 10 mg PO BEDTIME [facility] Last Admin: 12/02/22 20:06 Dose: 10 mg Trazodone HCl (Trazodone Hcl 50 Mg Tablet) 50 mg PO BEDTIME PRN PRN Reason: Insomnia Last Admin: 12/01/22 20:48 Dose: 50 mg Allergies Allergies Allergy/AdvReac Type Severity Reaction Status Date / Time pollen extracts Allergy Unknown unknown Verified 04/21/22 14:56 latex Allergy Rash Verified 10/31/22 18:30 Assessment & Plan Assessment & Plan (1) Bipolar disorder, now depressed: Status: Acute Code(s): F31.30 - Bipolar disorder, current episode depressed, mild or moderate severity, unspecified (2) Cognitive impairment: Status: Acute Code(s): R41.89 - Other symptoms and signs involving cognitive functions and awareness Plan 82 year old male with history hyperlipidemia, tubular adenoma colon (last colonoscopy 12/21), BPH, chronic normocytic anemia, osteoarthritis shoulders and hips s/p b/l hip arthroplasty, chronic low back pain with lumbar stenosis, depression, hx rotator cuff tear, actinic keratosis, and atypical melanocytic hyperplasia admitted to geriatric psychiatry from [facility] with consult placed to medical hospitalist service for medical H&P. 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 Can use ibuprofen 600mg q6h prn as well if topical diclofenac unavailable. #Chronic left hip pain -per ED provider note at [facility], patient foot got stuck in a hole several months ago and fell onto the left hip. Subsequent imaging studies including x-ray of the hip/pelvis and CT of the pelvis are negative for fracture -Pain management as above -outpt follow up Pt refused physical extensive. Extensive review of prior note and records from [facility] conducted as noted above. Plan 1. Gather collateral information. His niece called and she provide more collateral information to the social insurance administrator. Currently the patient is homeless and he is unable to take care of himself. We had to filed for Section 7 and 8 since the patient refused to sign the conditional voluntary. 2. Continue with Zyprexa at bedtime. We are increasing Zyprexa up to 10 mg p.o. q.h.s. in October 27 since the patient had been more intrusive and disinhibited. 3. The occupational therapist did an Hebert test and he scored 3.2, he used to be on 3.6 a few months ago. That means that he will need 24 hour care. We are g oing to start Aricept to target dementia. So far the patient did not have any side effects still cognitively impaired. 4. Namenda 5 mg p.o. b.i.d. started to target dementia. It was increased up to 10 mg p.o. b.i.d. 5. Filed for guardianship. Waiting for the paperwork since the hearing was last Saturday. 11/25/2022: No changes 11/26/2022 Continue plan of care Namenda olanzapine 11/27/2022 Patient is mood somewhat less irritable he is withdrawn continue plan of care discharge planning 11/30/22 Continue plan of care discharge planning patient less labile less irritable 12/03: Continue current regimen and plans. BMP ordered Reason for continued inpatient stay Substantial Risk for: inability to function Time Spent With Patient Time: Total time managing care of this patient today ____ minutes.
[2022-12-03 12:21] LABS: Anion Gap 11 (12-20); Blood Urea Nitrogen 23 mg/dL (9-16); Calcium 9.3 mg/dL (8.4-10.2); Carbon Dioxide 28 mmol/L (22-29); Chloride 107 mmol/L (96-108); Creatinine Clr Calc Pharmacy 49.6; Estimated Glomerular Filt Rate > 60; Glucose Random 82 mg/dL (60-115); Potassium 4.1 mmol/L (3.3-5.1); Sodium 142 mmol/L (135-145)
[2022-12-03 18:00] VITALS: BP 102/63; PULSE 65; RESP 18
[2022-12-03] MEDS: Donepezil HCl 10 MG TABLET PO (20:00)
[2022-12-03] MEDS: OLANZapine 10 MG TABLET PO (20:00)
[2022-12-04 08:00] VITALS: BP 110/62; PULSE 53; RESP 16; TEMP 36.4; O2SAT 97
[2022-12-04] MEDS: Acetaminophen 325 MG TABLET 975 MG PO ×2 (09:32→14:56)
[2022-12-04] MEDS: Memantine HCl 10 MG TABLET PO ×2 (09:32→20:17)
[2022-12-04] MEDS: Lidocaine 4 % Patch ADH..PATCH 1 PATCH TRANSDERMA (09:36)
--- NOTE | 2022-12-04 09:55 | P.PNPSI_ITS ---
Subjective Subjective Date of Service: 12/04/22 Reason For Visit: F31.9, F43.25 Subjective Notes: Section 7 and Section 8 Interim History: The nursing staff reported the patient slept all day long yesterday. He has been urinating on paper , he looks more disheveled than usual. The team suspects that his having a UTI. On interview the patient is confused, I have order UA with reflex to culture today and it came negative for UTI. He stated that he feels tired and stated that Iris wants to take care of me .. Mental Status Exam Mental Status Exam Patient Appearance: Inappropriate and Unkempt Patient Orientation: Person Level of Consciousness: Awake Patient Behavior: Guarded and Passive Mood Description: Withdrawn Affect Description: Constricted Patient Cognition Impaired: Yes Ability to Follow Directions: Fair Speech Pattern: Clear Hallucinations: None Delusions: Ideas of Reference Thought Process: Distracted and Slowed Thinking Thought Content: positive for [place], positive for Perseveration and positive for Poverty of Content Judgement: Poor Diagnostics Vital Signs (24Hr): Vital Signs - 24 hr 12/03/22 18:00 12/04/22 08:00 Temperature 97.6 F Pulse Rate 65 53 Respiratory Rate 18 16 Blood Pressure 102/63 110/62 Pulse Oximetry 97 Oxygen Delivery Method Room Air BMI result Body Mass Index 23.6 Labs 12/03/22 11:52 Labs: Laboratory Results - last 48 hr 12/03/22 11:52 Sodium 142 Potassium 4.1 Chloride 107 Carbon Dioxide 28 Anion Gap 11 L BUN 23 H Creatinine 1.07 Estim Creat Clear Calc 49.6 Estimated GFR > 60 Random Glucose 82 Calcium 9.3 Medications Medications Current Medications Acetaminophen (Acetaminophen 325 Mg Tablet) 975 mg PO TID [facility] Last Admin: 12/04/22 09:32 Dose: 975 mg Al Hydroxide/Mg Hydroxide (Magnesium Hydrox/Alum Hydrox 30 Ml Oral.Susp) 30 ml PO Q6H PRN PRN Reason: Heartburn/Nausea Donepezil HCl (Donepezil Hcl 10 Mg Tablet) 10 mg PO BEDTIME [facility] Last Admin: 12/03/22 20:00 Dose: 10 mg Hydroxyzine HCl (Hydroxyzine Hcl 25 Mg Tablet) 25 mg PO Q6H PRN PRN Reason: Anxiety Last Admin: 11/02/22 00:20 Dose: 25 mg Lidocaine (Lidocaine 4 % Patch Adh..Patch) 1 patch TRANSDERMA DAILY [facility]; Protocol Last Admin: 12/04/22 09:36 Dose: 1 patch Magnesium Hydroxide (Milk Of Magnesia 30 Ml Oral.Susp) 30 ml PO DAILY PRN PRN Reason: Constipation Memantine (Memantine Hcl 10 Mg Tablet) 10 mg PO BID [facility] Last Admin: 12/04/22 09:32 Dose: 10 mg Olanzapine (Olanzapine 2.5 Mg Tablet) 2.5 mg PO TID PRN PRN Reason: agitation Last Admin: 11/11/22 09:52 Dose: 2.5 mg Olanzapine (Olanzapine 10 Mg Tablet) 10 mg PO BEDTIME [facility] Last Admin: 12/03/22 20:00 Dose: 10 mg Trazodone HCl (Trazodone Hcl 50 Mg Tablet) 50 mg PO BEDTIME PRN PRN Reason: Insomnia Last Admin: 12/01/22 20:48 Dose: 50 mg Allergies Allergies Allergy/AdvReac Type Severity Reaction Status Date / Time pollen extracts Allergy Unknown unknown Verified 04/21/22 14:56 latex Allergy Rash Verified 10/31/22 18:30 Assessment & Plan Assessment & Plan (1) Bipolar disorder, now depressed: Status: Acute Code(s): F31.30 - Bipolar disorder, current episode depressed, mild or moderate severity, unspecified (2) Cognitive impairment: Status: Acute Code(s): R41.89 - Other symptoms and signs involving cognitive functions and awareness Plan 82 year old male with history hyperlipidemia, tubular adenoma colon (last colonoscopy 12/21), BPH, chronic normocytic anemia, osteoarthritis shoulders and hips s/p b/l hip arthroplasty, chronic low back pain with lumbar stenosis, depression, hx rotator cuff tear, actinic keratosis, and atypical melanocytic hyperplasia admitted to geriatric psychiatry from [facility] with consult placed to medical hospitalist service for medical H&P. 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 Can use ibuprofen 600mg q6h prn as well if topical diclofenac unavailable. #Chronic left hip pain -per ED provider note at [facility], patient foot got stuck in a hole several months ago and fell onto the left hip. Subsequent imaging studies including x-ray of the hip/pelvis and CT of the pelvis are negative for fracture -Pain management as above -outpt follow up Pt refused physical extensive. Extensive review of prior note and records from [facility] conducted as noted above. Plan 1. Gather collateral information. His niece called and she provide more collateral information to the social science teacher. Currently the patient is homeless and he is unable to take care of himself. We had to filed for Section 7 and 8 since the patient refused to sign the conditional voluntary. 2. Continue with Zyprexa at bedtime. We are increasing Zyprexa up to 10 mg p.o. q.h.s. in October 27 since the patient had been more intrusive and disinhibited. 3. The occupational therapist did an Hebert test and he scored 3.2, he used to be on 3.6 a few months ago. That means that he will need 24 hour care. We are going to start Aricept to target dementia. So far the patient did not have any side effects still cognitively impaired. 4. Namenda 5 mg p.o. b.i.d. started to target dementia. It was increased up to 10 mg p.o. b.i.d. 5. Filed for guardianship. Waiting for the paperwork since the hearing was last Saturday. 6. He had been more despondent and disorganized, urinating on paper cups. I am ordering an UA on 12/04 and it came negative for UIT.. Reason for continued inpatient stay Substantial Risk for: inability to function, rapid decompensation and med/psych decompensation Time Spent With Patient Time: Total time managing care of this patient today __20__ minutes.
[2022-12-04 10:27] LABS: Appearance Urine Clear; Color Urine Yellow; Glucose Urine UA Negative (Negative); Leukocyte Esterase Urine Negative (Negative); Nitrite Urine Negative (Negative); PH 5.5 (5.0-9.0); Specific Gravity - Urine 1.015 (1.005-1.025); UMIC TRIGGER UACC YES; Urine Blood Trace (Negative); Urine Ketones Negative (Negative); Urine Protein Negative (Neg-Trace)
[2022-12-04 10:30] LABS: Bacteria Urine None Seen (None Seen); Hyaline Casts Urine 0-2 /LPF (0-2); RBC Urine 0-2 /HPF (0-2); Squamous Epithelial Cell Urine 0-2 /HPF (0-2); WBC Urine 0-5 /HPF (0-5)
[2022-12-04 18:00] VITALS: BP 105/58; PULSE 68; RESP 16; TEMP 36.3; O2SAT 95
[2022-12-04] MEDS: OLANZapine 10 MG TABLET PO (20:17)
[2022-12-04] MEDS: Donepezil HCl 10 MG TABLET PO (20:17)
[2022-12-05 07:45] VITALS: BP 93/51; PULSE 61; RESP 18; TEMP 36.9; O2SAT 94
[2022-12-05] MEDS: Acetaminophen 325 MG TABLET 975 MG PO ×3 (08:40→20:20)
[2022-12-05] MEDS: Memantine HCl 10 MG TABLET PO ×2 (08:41→20:22)
[2022-12-05] MEDS: Lidocaine 4 % Patch ADH..PATCH 1 PATCH TRANSDERMA (08:46)
[2022-12-05 09:15] VITALS: BP 120/62; PULSE 70
--- NOTE | 2022-12-05 11:06 | HO.PSYCHPN ---
Subjective Subjective Date of Service: 12/05/22 Reason For Visit: F31.9, F43.25 Subjective Notes: Section 7 and Section 8 Interim History: The nursing staff reported that today in the morning his blood pressure was low but after breakfast and went back to normal. He has stating his room most of the time he has been hypoactive but vital signs are okay. The guardianship and [facility] application had been already done. The social media intern will call her niece a me and explore other disposition options. On interview the patient is pleasantly confused, hypoactive but safe. Mental Status Exam Mental Status Exam Patient Appearance: Disheveled and Unkempt Patient Orientation: Person and Situation Level of Consciousness: Awake and Appropriate Patient Behavior: Guarded and Passive Mood Description: Withdrawn Affect Description: Constricted Patient Cognition Impaired: Yes Ability to Follow Directions: Good Speech Pattern: Clear Hallucinations: None Delusions: Not Present Thought Process: Distracted and Evasive Thought Content: positive for [place] and positive for Circumstantial Judgement: Fair Diagnostics Vital Signs (24Hr): Vital Signs - 24 hr 12/04/22 18:00 12/05/22 07:45 12/05/22 09:15 Temperature 97.4 F 98.5 F Pulse Rate 68 61 70 Respiratory Rate 16 18 Blood Pressure 105/58 L 93/51 L 120/62 Pulse Oximetry 95 94 Oxygen Delivery Method Room Air Room Air BMI result Body Mass Index 23.6 Labs 12/03/22 11:52 Labs: Laboratory Results - last 48 hr 12/03/22 12/04/22 11:52 09:40 Sodium 142 Potassium 4.1 Chloride 107 Carbon Dioxide 28 Anion Gap 11 L BUN 23 H Creatinine 1.07 Estim Creat Clear Calc 49.6 Estimated GFR > 60 Random Glucose 82 Calcium 9.3 Urine Color Yellow Urine Appearance Clear Urine pH 5.5 Ur Specific [place] 1.015 Urine Protein Negative Urine Glucose (UA) Negative Urine Ketones Negative Urine Blood Trace H Urine Nitrite Negative Ur Leukocyte Esterase Negative Urine RBC 0-2 Urine WBC 0-5 Ur Squamous Epith Cells 0-2 Urine Bacteria None Seen Hyaline Casts 0-2 Medications Medications Current Medications Acetaminophen (Acetaminophen 325 Mg Tablet) 975 mg PO TID [facility] Last Admin: 12/05/22 08:40 Dose: 975 mg Al Hydroxide/Mg Hydroxide (Magnesium Hydrox/Alum Hydrox 30 Ml Oral.Susp) 30 ml PO Q6H PRN PRN Reason: Heartburn/Nausea Donepezil HCl (Donepezil Hcl 10 Mg Tablet) 10 mg PO BEDTIME [facility] Last Admin: 12/04/22 20:17 Dose: 10 mg Hydroxyzine HCl (Hydroxyzine Hcl 25 Mg Tablet) 25 mg PO Q6H PRN PRN Reason: Anxiety Last Admin: 11/02/22 00:20 Dose: 25 mg Lidocaine (Lidocaine 4 % Patch Adh..Patch) 1 patch TRANSDERMA DAILY [facility]; Protocol Last Admin: 12/05/22 08:46 Dose: 1 patch Magnesium Hydroxide (Milk Of Magnesia 30 Ml Oral.Susp) 30 ml PO DAILY PRN PRN Reason: Constipation Memantine (Memantine Hcl 10 Mg Tablet) 10 mg PO BID [facility] Last Admin: 12/05/22 08:41 Dose: 10 mg Olanzapine (Olanzapine 2.5 Mg Tablet) 2.5 mg PO TID PRN PRN Reason: agitation Last Admin: 11/11/22 09:52 Dose: 2.5 mg Olanzapine (Olanzapine 10 Mg Tablet) 10 mg PO BEDTIME [facility] Last Admin: 12/04/22 20:17 Dose: 10 mg Trazodone HCl (Trazodone Hcl 50 Mg Tablet) 50 mg PO BEDTIME PRN PRN Reason: Insomnia Last Admin: 12/01/22 20:48 Dose: 50 mg Allergies Allergies Allergy/AdvReac Type Severity Reaction Status Date / Time pollen extracts Allergy Unknown unknown Verified 04/21/22 14:56 latex Allergy Rash Verified 10/31/22 18:30 Assessment & Plan Assessment & Plan (1) Bipolar disorder, now depressed: Status: Acute Code(s): F31.30 - Bipolar disorder, current episode depressed, mild or moderate severity, unspecified (2) Cognitive impairment: Status: Acute Code(s): R41.89 - Other symptoms and signs involving cognitive functions and awareness Plan 82 year old male with history hyperlipidemia, tubular adenoma colon (last colonoscopy 12/21), BPH, chronic normocytic anemia, osteoarthritis shoulders and hips s/p b/l hip arthroplasty, chronic low back pain with lumbar stenosis, depression, hx rotator cuff tear, actinic keratosis, and atypical melanocytic hyperplasia admitted to geriatric psychiatry from [facility] with consult placed to medical hospitalist service for medical H&P. 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 Can use ibuprofen 600mg q6h prn as well if topical diclofenac unavailable. #Chronic left hip pain -per ED provider note at [facility], patient foot got stuck in a hole several months ago and fell onto the left hip. Subsequent imaging studies including x-ray of the hip/pelvis and CT of the pelvis are negative for fracture -Pain management as above -outpt follow up Pt refused physical extensive. Extensive review of prior note and records from [facility] conducted as noted above. Plan 1. Gather collateral information. His niece called and she provide more collateral information to the social media intern. Currently the patient is homeless and he is unable to take care of himself. We had to filed for Section 7 and 8 since the patient refused to sign the conditional voluntary. 2. Continue with Zyprexa at bedtime. We are increasing Zyprexa up to 10 mg p.o. q.h.s. in October 27 since the patient had been more intrusive and disinhibited. 3. The occupational therapist did an Hebert test and he scored 3.2, he used to be on 3.6 a few months ago. That means that he will need 24 hour care. We are going to start Aricept to target dementia. So far the patient did not have any side effects still cognitively impaired. 4. Namenda 5 mg p.o. b.i.d. started to target dementia. It was increased up to 10 mg p.o. b.i.d. 5. Filed for guardianship. Waiting for the paperwork since the hearing was last Saturday. 6. He had been more despondent and disorganized, urinating on paper cups. I am ordering an UA on 12/04 and it came negative for UIT.. Reason for continued inpatient stay Substantial Risk for: inability to function, rapid decompensation and med/psych decompensation Time Spent With Patient Time: Total time managing care of this patient today _20___ minutes.
[2022-12-05 19:50] VITALS: BP 122/56; PULSE 69; RESP 16; TEMP 36.6; O2SAT 96
[2022-12-05] MEDS: OLANZapine 10 MG TABLET PO (20:20)
[2022-12-05] MEDS: Donepezil HCl 10 MG TABLET PO (20:22)
[2022-12-06 07:00] VITALS: BMI 27.7
[2022-12-06 08:01] VITALS: BP 147/75; PULSE 68; RESP 16; TEMP 36.3; O2SAT 94
[2022-12-06] MEDS: Memantine HCl 10 MG TABLET PO ×2 (08:18→20:37)
[2022-12-06] MEDS: Acetaminophen 325 MG TABLET 975 MG PO ×3 (08:18→20:37)
[2022-12-06] MEDS: Lidocaine 4 % Patch ADH..PATCH 1 PATCH TRANSDERMA (08:20)
--- NOTE | 2022-12-06 13:26 | P.PNPSI_ITS ---
Subjective Subjective Date of Service: 12/06/22 Reason For Visit: F31.9, F43.25 Subjective Notes: Conditional Voluntary Interim History: The nursing staff reported the patient had been compliant with medications and meals. His blood pressure was low in the morning but later he was okay. The forensic social worker reported that she spoke with [facility], her knees and apparently the [facility] application was already submitted. On interview, the patient denies new symptoms pleasantly confused asking for discharge, unable to process new information. Mental Status Exam Mental Status Exam Patient Appearance: Inappropriate and Unkempt Patient Orientation: Person and Situation Level of Consciousness: Awake and Appropriate Patient Behavior: Guarded and Passive Mood Description: Withdrawn Affect Description: Constricted Patient Cognition Impaired: Yes Ability to Follow Directions: Good Speech Pattern: Clear Hallucinations: None Delusions: Not Present Thought Process: Distracted and Slowed Thinking Thought Content: positive for [place] and positive for Poverty of Content Judgement: Poor Diagnostics Vital Signs (24Hr): Vital Signs - 24 hr 12/05/22 19:50 12/06/22 08:01 Temperature 97.8 F 97.4 F Pulse Rate 69 68 Respiratory Rate 16 16 Blood Pressure 122/56 L 147/75 H Pulse Oximetry 96 94 Oxygen Delivery Method Room Air Room Air BMI result Body Mass Index 27.7 Labs 12/03/22 11:52 Medications Medications Current Medications Acetaminophen (Acetaminophen 325 Mg Tablet) 975 mg PO TID [facility] Last Admin: 12/06/22 08:18 Dose: 975 mg Al Hydroxide/Mg Hydroxide (Magnesium Hydrox/Alum Hydrox 30 Ml Oral.Susp) 30 ml PO Q6H PRN PRN Reason: Heartburn/Nausea Donepezil HCl (Donepezil Hcl 10 Mg Tablet) 10 mg PO BEDTIME [facility] Last Admin: 12/05/22 20:22 Dose: 10 mg Hydroxyzine HCl (Hydroxyzine Hcl 25 Mg Tablet) 25 mg PO Q6H PRN PRN Reason: Anxiety Last Admin: 11/02/22 00:20 Dose: 25 mg Lidocaine (Lidocaine 4 % Patch Adh..Patch) 1 patch TRANSDERMA DAILY [facility]; Protocol Last Admin: 12/06/22 08:20 Dose: 1 patch Magnesium Hydroxide (Milk Of Magnesia 30 Ml Oral.Susp) 30 ml PO DAILY PRN PRN Reason: Constipation Memantine (Memantine Hcl 10 Mg Tablet) 10 mg PO BID [facility] Last Admin: 12/06/22 08:18 Dose: 10 mg Olanzapine (Olanzapine 2.5 Mg Tablet) 2.5 mg PO TID PRN PRN Reason: agitation Last Admin: 11/11/22 09:52 Dose: 2.5 mg Olanzapine (Olanzapine 10 Mg Tablet) 10 mg PO BEDTIME [facility] Last Admin: 12/05/22 20:20 Dose: 10 mg Trazodone HCl (Trazodone Hcl 50 Mg Tablet) 50 mg PO BEDTIME PRN PRN Reason: Insomnia Last Admin: 12/01/22 20:48 Dose: 50 mg Allergies Allergies Allergy/AdvReac Type Severity Reaction Status Date / Time pollen extracts Allergy Unknown unknown Verified 04/21/22 14:56 latex Allergy Rash Verified 10/31/22 18:30 Assessment & Plan Assessment & Plan (1) Bipolar disorder, now depressed: Status: Acute Code(s): F31.30 - Bipolar disorder, current episode depressed, mild or moderate severity, unspecified (2) Cognitive impairment: Status: Acute Code(s): R41.89 - Other symptoms and signs involving cognitive functions and awareness Plan 82 year old male with history hyperlipidemia, tubular adenoma colon (last colonoscopy 12/21), BPH, chronic normocytic anemia, osteoarthritis shoulders and hips s/p b/l hip arthroplasty, chronic low back pain with lumbar stenosis, depression, hx rotator cuff tear, actinic keratosis, and atypical melanocytic hyperplasia admitted to geriatric psychiatry from [facility] with consult placed to medical hospitalist service for medical H&P. 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 Can use ibuprofen 600mg q6h prn as well if topical diclofenac unavailable. #Chronic left hip pain -per ED provider note at [facility], patient foot got stuck in a hole several months ago and fell onto the left hip. Subsequent imaging studies including x-ray of the hip/pelvis and CT of the pelvis are negative for fracture -Pain management as above -outpt follow up Pt refused physical extensive. Extensive review of prior note and records from [facility] conducted as noted above. Plan 1. Gather collateral information. His niece called and she provide more collateral information to the forensic social worker. Currently the patient is homeless and he is unable to take care of himself. We had to filed for Section 7 and 8 since the patient refused to sign the conditional voluntary. 2. Continue with Zyprexa at bedtime. We are increasing Zyprexa up to 10 mg p.o. q.h.s. in October 27 since the patient had been more intrusive and disinhibited. 3. The occupational therapist did an Hebert test and he scored 3.2, he used to be on 3.6 a few months ago. That means that he will need 24 hour care. We are going to start Aricept to target dementia. So far the patient did not have any side effects still cognitively impaired. 4. Namenda 5 mg p.o. b.i.d. started to target dementia. It was increased up to 10 mg p.o. b.i.d. 5. Filed for guardianship. Waiting for the paperwork since the hearing was last Saturday. 6. He had been more despondent and disorganized, urinating on paper cups. I am ordering an UA on 12/04 and it came negative for UTI. Reason for continued inpatient stay Substantial Risk for: inability to function, rapid decompensation and med/psych decompensation Time Spent With Patient Time: Total time managing care of this patient today __20__ minutes.
[2022-12-06 18:00] VITALS: BP 109/58; PULSE 69; RESP 18; TEMP 36.6; O2SAT 95
[2022-12-06] MEDS: OLANZapine 10 MG TABLET PO (20:37)
[2022-12-06] MEDS: Donepezil HCl 10 MG TABLET PO (20:37)
[2022-12-07 07:52] VITALS: BP 127/72; PULSE 61; RESP 18; TEMP 35.9; O2SAT 96
--- NOTE | 2022-12-07 10:40 | HO.PSYCHPN ---
Subjective Subjective Date of Service: 12/07/22 Reason For Visit: F31.9, F43.25 Subjective Notes: Section 7 and Section 8 Interim History: The nursing staff reported the patient had been only up for meals, he had been on his room most of the time. He slept well last night. On interview the patient is pleasantly confused, waiting for placement. Mental Status Exam Mental Status Exam Patient Appearance: Well Grooomed and Appropriate Patient Orientation: Person and Situation Level of Consciousness: Awake and Appropriate Patient Behavior: Guarded and Passive Mood Description: Withdrawn Affect Description: Constricted Patient Cognition Impaired: Yes Ability to Follow Directions: Good Speech Pattern: Clear Hallucinations: None Delusions: Not Present Thought Process: Distracted, Evasive and Slowed Thinking Thought Content: positive for [place] and positive for Poverty of Content Judgement: Poor Diagnostics Vital Signs (24Hr): Vital Signs - 24 hr 12/06/22 18:00 12/07/22 07:52 Temperature 98 F 96.7 F L Pulse Rate 69 61 Respiratory Rate 18 18 Blood Pressure 109/58 L 127/72 Pulse Oximetry 95 96 Oxygen Delivery Method Room Air Room Air BMI result Body Mass Index 27.7 Labs 12/03/22 11:52 Medications Medications Current Medications Acetaminophen (Acetaminophen 325 Mg Tablet) 975 mg PO TID [facility] Last Admin: 12/06/22 20:37 Dose: 975 mg Al Hydroxide/Mg Hydroxide (Magnesium Hydrox/Alum Hydrox 30 Ml Oral.Susp) 30 ml PO Q6H PRN PRN Reason: Heartburn/Nausea Donepezil HCl (Donepezil Hcl 10 Mg Tablet) 10 mg PO BEDTIME [facility] Last Admin: 12/06/22 20:37 Dose: 10 mg Hydroxyzine HCl (Hydroxyzine Hcl 25 Mg Tablet) 25 mg PO Q6H PRN PRN Reason: Anxiety Last Admin: 11/02/22 00:20 Dose: 25 mg Lidocaine (Lidocaine 4 % Patch Adh..Patch) 1 patch TRANSDERMA DAILY [facility]; Protocol Last Admin: 12/06/22 08:20 Dose: 1 patch Magnesium Hydroxide (Milk Of Magnesia 30 Ml Oral.Susp) 30 ml PO DAILY PRN PRN Reason: Constipation Memantine (Memantine Hcl 10 Mg Tablet) 10 mg PO BID [facility] Last Admin: 12/06/22 20:37 Dose: 10 mg Olanzapine (Olanzapine 2.5 Mg Tablet) 2.5 mg PO TID PRN PRN Reason: agitation Last Admin: 11/11/22 09:52 Dose: 2.5 mg Olanzapine (Olanzapine 10 Mg Tablet) 10 mg PO BEDTIME [facility] Last Admin: 12/06/22 20:37 Dose: 10 mg Trazodone HCl (Trazodone Hcl 50 Mg Tablet) 50 mg PO BEDTIME PRN PRN Reason: Insomnia Last Admin: 12/01/22 20:48 Dose: 50 mg Allergies Allergies Allergy/AdvReac Type Severity Reaction Status Date / Time pollen extracts Allergy Unknown unknown Verified 04/21/22 14:56 latex Allergy Rash Verified 10/31/22 18:30 Assessment & Plan Assessment & Plan (1) Bipolar disorder, now depressed: Status: Acute Code(s): F31.30 - Bipolar disorder, current episode depressed, mild or moderate severity, unspecified (2) Cognitive impairment: Status: Acute Code(s): R41.89 - Other symptoms and signs involving cognitive functions and awareness Plan 82 year old male with history hyperlipidemia, tubular adenoma colon (last colonoscopy 12/21), BPH, chronic normocytic anemia, osteoarthritis shoulders and hips s/p b/l hip arthroplasty, chronic low back pain with lumbar stenosis, depression, hx rotator cuff tear, actinic keratosis, and atypical melanocytic hyperplasia admitted to geriatric psychiatry from [facility] with consult placed to medical hospitalist service for medical H&P. 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 Can use ibuprofen 600mg q6h prn as well if topical diclofenac unavailable. #Chronic left hip pain -per ED provider note at [facility], patient foot got stuck in a hole several months ago and fell onto the left hip. Subsequent imaging studies including x-ray of the hip/pelvis and CT of the pelvis are negative for fracture -Pain management as above -outpt follow up Pt refused physical extensive. Extensive review of prior note and records from [facility] conducted as noted above. Plan 1. Gather collateral information. His niece called and she provide more collateral information to the social professionals. Currently the patient is homeless and he is unable to take care of himself. We had to filed for Section 7 and 8 since the patient refused to sign the conditional voluntary. 2. Continue with Zyprexa at bedtime. We are increasing Zyprexa up to 10 mg p.o. q.h.s. in October 27 since the patient had been more intrusive and disinhibited. 3. The occupational therapist did an Hebert test and he scored 3.2, he used to be on 3.6 a few months ago. That means that he will need 24 hour care. We are going to start Aricept to target dementia. So far the patient did not have any side effects still cognitively impaired. 4. Namenda 5 mg p.o. b.i.d. started to target dementia. It was increased up to 10 mg p.o. b.i.d. 5. Filed for guardianship. Waiting for the paperwork since the hearing was last Saturday. 6. He had been more despondent and disorganized, urinating on paper cups. I am ordering an UA on 12/04 and it came negative for UTI. Reason for continued inpatient stay Substantial Risk for: inability to function, rapid decompensation and med/psych decompensation Time Spent With Patient Time: Total time managing care of this patient today __20__ minutes.
[2022-12-07] MEDS: Acetaminophen 325 MG TABLET 975 MG PO ×3 (12:10→20:32)
[2022-12-07] MEDS: Lidocaine 4 % Patch ADH..PATCH 1 PATCH TRANSDERMA (12:10)
[2022-12-07] MEDS: Memantine HCl 10 MG TABLET PO ×2 (12:11→20:32)
[2022-12-07 18:00] VITALS: BP 119/66; PULSE 66; RESP 18; TEMP 36.6; O2SAT 95
[2022-12-07] MEDS: OLANZapine 10 MG TABLET PO (20:32)
[2022-12-07] MEDS: Donepezil HCl 10 MG TABLET PO (20:32)
[2022-12-08] MEDS: hydrOXYzine HCL 25 MG TABLET PO (02:30)
[2022-12-08 08:50] VITALS: BP 110/65; PULSE 74; RESP 16; TEMP 36.8; O2SAT 95
[2022-12-08] MEDS: Acetaminophen 325 MG TABLET 975 MG PO ×3 (08:55→20:29)
[2022-12-08] MEDS: Lidocaine 4 % Patch ADH..PATCH 1 PATCH TRANSDERMA (08:56)
[2022-12-08] MEDS: Memantine HCl 10 MG TABLET PO ×2 (08:59→20:29)
--- NOTE | 2022-12-08 15:08 | HO.PSYCHPN ---
Subjective Subjective Date of Service: 12/08/22 Reason For Visit: F31.9, F43.25 Subjective Notes: Section 7 Interim History: met with patient. Discussed with Nursing. Overall has been engaging more in the community. With clinical writer was pleasant and wanted to go to his local bank. Unclear what his major concern was regarding this. Did well with redirection. No evidence of depression SI or agitation. No med concerns noted. Noted guardianship application in place Review of Systems Review of Systems unremarkable Mental Status Exam Mental Status Exam Narrative: pleasant. Engaged. Fair self-care. Some cognitive impairment evident. No depression, SI, HI, agitation or psychosis. Diagnostics Vital Signs (24Hr): Vital Signs - 24 hr 12/07/22 18:00 12/08/22 08:50 Temperature 97.8 F 98.3 F Pulse Rate 66 74 Respiratory Rate 18 16 Blood Pressure 119/66 110/65 Pulse Oximetry 95 95 Oxygen Delivery Method Room Air Room Air BMI result Body Mass Index 27.7 Labs 12/03/22 11:52 Medications Medications Current Medications Acetaminophen (Acetaminophen 325 Mg Tablet) 975 mg PO TID [facility]S [facility]CLUDE 234 BEDS AT [facility] Last Admin: 12/08/22 08:55 Dose: 975 mg Al Hydroxide/Mg Hydroxide (Magnesium Hydrox/Alum Hydrox 30 Ml Oral.Susp) 30 ml PO Q6H PRN PRN Reason: Heartburn/Nausea Donepezil HCl (Donepezil Hcl 10 Mg Tablet) 10 mg PO BEDTIME COUNTS INCLUDE 234 BEDS AT THE [facility] Last Admin: 12/07/22 20:32 Dose: 10 mg Hydroxyzine HCl (Hydroxyzine Hcl 25 Mg Tablet) 25 mg PO Q6H PRN PRN Reason: Anxiety Last Admin: 12/08/22 02:30 Dose: 25 mg Lidocaine (Lidocaine 4 % Patch Adh..Patch) 1 patch TRANSDERMA DAILY COUNTS INCLUDE 234 BEDS AT THE [facility]; Protocol Last Admin: 12/08/22 08:56 Dose: 1 patch Magnesium Hydroxide (Milk Of Magnesia 30 Ml Oral.Susp) 30 ml PO DAILY PRN PRN Reason: Constipation Memantine (Memantine Hcl 10 Mg Tablet) 10 mg PO BID COUNTS INCLUDE 234 BEDS AT THE [facility] Last Admin: 12/08/22 08:59 Dose: 10 mg Olanzapine (Olanzapine 2.5 Mg Tablet) 2.5 mg PO TID PRN PRN Reason: agitation Last Admin: 11/11/22 09:52 Dose: 2.5 mg Olanzapine (Olanzapine 10 Mg Tablet) 10 mg PO BEDTIME COUNTS INCLUDE 234 BEDS AT THE [facility] Last Admin: 12/07/22 20:32 Dose: 10 mg Trazodone HCl (Trazodone Hcl 50 Mg Tablet) 50 mg PO BEDTIME PRN PRN Reason: Insomnia Last Admin: 12/01/22 20:48 Dose: 50 mg Allergies Allergies Allergy/AdvReac Type Severity Reaction Status Date / Time pollen extracts Allergy Unknown unknown Verified 04/21/22 14:56 latex Allergy Rash Verified 10/31/22 18:30 Assessment & Plan Assessment & Plan (1) Bipolar disorder, now depressed: Status: Acute Code(s): F31.30 - Bipolar disorder, current episode depressed, mild or moderate severity, unspecified (2) Cognitive impairment: Status: Acute Code(s): R41.89 - Other symptoms and signs involving cognitive functions and awareness Plan 82 year old male with history hyperlipidemia, tubular adenoma colon (last colonoscopy 12/21), BPH, chronic normocytic anemia, osteoarthritis shoulders and hips s/p b/l hip arthroplasty, chronic low back pain with lumbar stenosis, depression, hx rotator cuff tear, actinic keratosis, and atypical melanocytic hyperplasia admitted to geriatric psychiatry from [facility] with consult placed to medical hospitalist service for medical H&P. 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 Can use ibuprofen 600mg q6h prn as well if topical diclofenac unavailable. #Chronic left hip pain -per ED provider note at [facility], patient foot got stuck in a hole several months ago and fell onto the left hip. Subsequent imaging studies including x-ray of the hip/pelvis and CT of the pelvis are negative for fracture -Pain management as above -outpt follow up Pt refused physical extensive. Extensive review of prior note and records from [facility] conducted as noted above. Plan 1. Gather collateral information. His niece called and she provide more collateral information to the social scientist. Currently the patient is homeless and he is unable to take care of himself. We had to filed for Section 7 and 8 since the patient refused to sign the conditional voluntary. 2. Continue with Zyprexa at bedtime. We are increasing Zyprexa up to 10 mg p.o. q.h.s. in October 27 since the patient had been more intrusive and disinhibited. 3. The occupational therapist did an Hebert test and he scored 3.2, he used to be on 3.6 a few months ago. That means that he will need 24 hour care. We are going to start Aricept to target dementia. So far the patient did not have any side effects still cognitively impaired. 4. Namenda 5 mg p.o. b.i.d. started to target dementia. It was increased up to 10 mg p.o. b.i.d. 5. Filed for guardianship. Waiting for the paperwork since the hearing was last Saturday. 6. He had been more despondent and disorganized, urinating on paper cups. I am ordering an UA on 12/04 and it came negative for UTI. 12/08/2022: No changes to current plan Reason for continued inpatient stay Substantial Risk for: inability to function Time Spent With Patient Time: Total time managing care of this patient today ____ minutes.
[2022-12-08 18:00] VITALS: BP 105/62; PULSE 63; RESP 18; TEMP 36.8; O2SAT 93
[2022-12-08] MEDS: Donepezil HCl 10 MG TABLET PO (20:29)
[2022-12-08] MEDS: OLANZapine 10 MG TABLET PO (20:29)
[2022-12-09 08:57] VITALS: BP 150/75; PULSE 62; RESP 14; TEMP 36.6; O2SAT 94
[2022-12-09] MEDS: Acetaminophen 325 MG TABLET 975 MG PO ×3 (09:02→22:07)
[2022-12-09] MEDS: Lidocaine 4 % Patch ADH..PATCH 1 PATCH TRANSDERMA (09:03)
[2022-12-09] MEDS: Memantine HCl 10 MG TABLET PO ×2 (09:03→22:08)
--- NOTE | 2022-12-09 15:34 | HO.PSYCHPN ---
Subjective Subjective Date of Service: 12/09/22 Reason For Visit: F31.9, F43.25 Interim History: Engaging more in the community. IN bed however this morning and denied any issues or concerns. [place] safe and supported by staff. No evidence of depression SI or agitation. No med concerns noted. Noted guardianship application in place Medication Compliance: Yes Side effects from medications: No Attending Groups: Intermittent Review of Systems Acute medical concerns: No Review of Systems Review of Systems unremarkable Mental Status Exam Mental Status Exam Narrative: pleasant. Engaged. Fair self-care. Some cognitive impairment evident. No depression, SI, HI, agitation or psychosis. Diagnostics Vital Signs (24Hr): Vital Signs - 24 hr 12/08/22 18:00 12/09/22 08:57 Temperature 98.2 F 97.9 F Pulse Rate 63 62 Respiratory Rate 18 14 Blood Pressure 105/62 150/75 H Pulse Oximetry 93 94 Oxygen Delivery Method Room Air Room Air BMI result Body Mass Index 27.7 Labs 12/03/22 11:52 Medications Medications Current Medications Acetaminophen (Acetaminophen 325 Mg Tablet) 975 mg PO TID [facility] Last Admin: 12/09/22 09:02 Dose: 975 mg Al Hydroxide/Mg Hydroxide (Magnesium Hydrox/Alum Hydrox 30 Ml Oral.Susp) 30 ml PO Q6H PRN PRN Reason: Heartburn/Nausea Donepezil HCl (Donepezil Hcl 10 Mg Tablet) 10 mg PO BEDTIME [facility] Last Admin: 12/08/22 20:29 Dose: 10 mg Hydroxyzine HCl (Hydroxyzine Hcl 25 Mg Tablet) 25 mg PO Q6H PRN PRN Reason: Anxiety Last Admin: 12/08/22 02:30 Dose: 25 mg Lidocaine (Lidocaine 4 % Patch Adh..Patch) 1 patch TRANSDERMA DAILY [facility]; Protocol Last Admin: 12/09/22 09:03 Dose: 1 patch Magnesium Hydroxide (Milk Of Magnesia 30 Ml Oral.Susp) 30 ml PO DAILY PRN PRN Reason: Constipation Memantine (Memantine Hcl 10 Mg Tablet) 10 mg PO BID [facility] Last Admin: 12/09/22 09:03 Dose: 10 mg Olanzapine (Olanzapine 2.5 Mg Tablet) 2.5 mg PO TID PRN PRN Reason: agitation Last Admin: 11/11/22 09:52 Dose: 2.5 mg Olanzapine (Olanzapine 10 Mg Tablet) 10 mg PO BEDTIME [facility] Last Admin: 12/08/22 20:29 Dose: 10 mg Trazodone HCl (Trazodone Hcl 50 Mg Tablet) 50 mg PO BEDTIME PRN PRN Reason: Insomnia Last Admin: 12/01/22 20:48 Dose: 50 mg Allergies Allergies Allergy/AdvReac Type Severity Reaction Status Date / Time pollen extracts Allergy Unknown unknown Verified 04/21/22 14:56 latex Allergy Rash Verified 10/31/22 18:30 Assessment & Plan Assessment & Plan (1) Bipolar disorder, now depressed: Status: Acute Code(s): F31.30 - Bipolar disorder, current episode depressed, mild or moderate severity, unspecified (2) Cognitive impairment: Status: Acute Code(s): R41.89 - Other symptoms and signs involving cognitive functions and awareness Plan 82 year old male with history hyperlipidemia, tubular adenoma colon (last colonoscopy 12/21), BPH, chronic normocytic anemia, osteoarthritis shoulders and hips s/p b/l hip arthroplasty, chronic low back pain with lumbar stenosis, depression, hx rotator cuff tear, actinic keratosis, and atypical melanocytic hyperplasia admitted to geriatric psychiatry from [facility] with consult placed to medical hospitalist service for medical H&P. 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 Can use ibuprofen 600mg q6h prn as well if topical diclofenac unavailable. #Chronic left hip pain -per ED provider note at [facility], patient foot got stuck in a hole several months ago and fell onto the left hip. Subsequent imaging studies including x-ray of the hip/pelvis and CT of the pelvis are negative for fracture -Pain management as above -outpt follow up Pt refused physical extensive. Extensive review of prior note and records from [facility] conducted as noted above. Plan 1. Gather collateral information. His niece called and she provide more collateral information to the social work program coordinator. Currently the patient is homeless and he is unable to take care of himself. We had to filed for Section 7 and 8 since the patient refused to sign the conditional voluntary. 2. Continue with Zyprexa at bedtime. We are increasing Zyprexa up to 10 mg p.o. q.h.s. in October 27 since the patient had been more intrusive and disinhibited. 3. The occupational therapist did an Hebert test and he scored 3.2, he used to be on 3.6 a few months ago. That means that he will need 24 hour care. We are going to start Aricept to target dementia. So far the patient did not have any side effects still cognitively impaired. 4. Namenda 5 mg p.o. b.i.d. started to target dementia. It was increased up to 10 mg p.o. b.i.d. 5. Filed for guardianship. Waiting for the paperwork since the hearing was last Saturday. 6. He had been more despondent and disorganized, urinating on paper cups. I am ordering an UA on 12/04 and it came negative for UTI. 12/09/2022: No changes to current plan Reason for continued inpatient stay Substantial Risk for: rapid decompensation Time Spent With Patient Time: Total time managing care of this patient today ____ minutes.
[2022-12-09 18:00] VITALS: BP 121/61; PULSE 62; RESP 18; TEMP 36.1; O2SAT 95
[2022-12-09] MEDS: Donepezil HCl 10 MG TABLET PO (22:07)
[2022-12-09] MEDS: OLANZapine 10 MG TABLET PO (22:08)
[2022-12-10 08:05] VITALS: BP 130/66; PULSE 66; RESP 16; TEMP 36.4; O2SAT 96
[2022-12-10] MEDS: Lidocaine 4 % Patch ADH..PATCH 1 PATCH TRANSDERMA (08:19)
[2022-12-10] MEDS: Acetaminophen 325 MG TABLET 975 MG PO ×3 (08:19→21:03)
[2022-12-10] MEDS: Memantine HCl 10 MG TABLET PO ×2 (08:19→21:05)
--- NOTE | 2022-12-10 15:03 | P.PNPSI_ITS ---
Subjective Subjective Date of Service: 12/10/22 Reason For Visit: F31.9, F43.25 Subjective Notes: Section 7 and Section 8 Interim History: The nursing staff reported no changes in his mental status. On interview the patient denies new symptoms pleasantly confused. The social worker masters reported they were waiting for the [employer] application. Mental Status Exam Mental Status Exam Patient Appearance: Unkempt Patient Orientation: Person and Situation Level of Consciousness: Awake and Appropriate Patient Behavior: Guarded and Passive Mood Description: Withdrawn Affect Description: Constricted Patient Cognition Impaired: Yes Ability to Follow Directions: Good Speech Pattern: Clear Hallucinations: None Delusions: Not Present Thought Process: Distracted and Slowed Thinking Thought Content: positive for [place] and positive for Poverty of Content Judgement: Fair Diagnostics Vital Signs (24Hr): Vital Signs - 24 hr 12/09/22 18:00 12/10/22 08:05 Temperature 96.9 F 97.6 F Pulse Rate 62 66 Respiratory Rate 18 16 Blood Pressure 121/61 130/66 Pulse Oximetry 95 96 Oxygen Delivery Method Room Air BMI result Body Mass Index 27.7 Labs 12/03/22 11:52 Medications Medications Current Medications Acetaminophen (Acetaminophen 325 Mg Tablet) 975 mg PO TID [facility] Last Admin: 12/10/22 08:19 Dose: 975 mg Al Hydroxide/Mg Hydroxide (Magnesium Hydrox/Alum Hydrox 30 Ml Oral.Susp) 30 ml PO Q6H PRN PRN Reason: Heartburn/Nausea Donepezil HCl (Donepezil Hcl 10 Mg Tablet) 10 mg PO BEDTIME [facility] Last Admin: 12/09/22 22:07 Dose: 10 mg Hydroxyzine HCl (Hydroxyzine Hcl 25 Mg Tablet) 25 mg PO Q6H PRN PRN Reason: Anxiety Last Admin: 12/08/22 02:30 Dose: 25 mg Lidocaine (Lidocaine 4 % Patch Adh..Patch) 1 patch TRANSDERMA DAILY [facility]; Protocol Last Admin: 12/10/22 08:19 Dose: 1 patch Magnesium Hydroxide (Milk Of Magnesia 30 Ml Oral.Susp) 30 ml PO DAILY PRN PRN Reason: Constipation Memantine (Memantine Hcl 10 Mg Tablet) 10 mg PO BID [facility] Last Admin: 12/10/22 08:19 Dose: 10 mg Olanzapine (Olanzapine 2.5 Mg Tablet) 2.5 mg PO TID PRN PRN Reason: agitation Last Admin: 11/11/22 09:52 Dose: 2.5 mg Olanzapine (Olanzapine 10 Mg Tablet) 10 mg PO BEDTIME [facility] Last Admin: 12/09/22 22:08 Dose: 10 mg Trazodone HCl (Trazodone Hcl 50 Mg Tablet) 50 mg PO BEDTIME PRN PRN Reason: Insomnia Last Admin: 12/01/22 20:48 Dose: 50 mg Allergies Allergies Allergy/AdvReac Type Severity Reaction Status Date / Time pollen extracts Allergy Unknown unknown Verified 04/21/22 14:56 latex Allergy Rash Verified 10/31/22 18:30 Assessment & Plan Assessment & Plan (1) Bipolar disorder, now depressed: Status: Acute Code(s): F31.30 - Bipolar disorder, current episode depressed, mild or moderate severity, unspecified (2) Cognitive impairment: Status: Acute Code(s): R41.89 - Other symptoms and signs involving cognitive functions and awareness Plan 82 year old male with history hyperlipidemia, tubular adenoma colon (last colonoscopy 12/21), BPH, chronic normocytic anemia, osteoarthritis shoulders and hips s/p b/l hip arthroplasty, chronic low back pain with lumbar stenosis, depression, hx rotator cuff tear, actinic keratosis, and atypical melanocytic hyperplasia admitted to geriatric psychiatry from [facility] with consult placed to medical hospitalist service for medical H&P. 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 Can use ibuprofen 600mg q6h prn as well if topical diclofenac unavailable. #Chronic left hip pain -per ED provider note at [facility], patient foot got stuck in a hole several months ago and fell onto the left hip. Subsequent imaging studies including x-ray of the hip/pelvis and CT of the pelvis are negative for fracture -Pain management as above -outpt follow up Pt refused physical extensive. Extensive review of prior note and records from [facility] conducted as noted above. Plan 1. Gather collateral information. His niece called and she provide more collateral information to the social worker masters. Currently the patient is homeless and he is unable to take care of himself. We had to filed for Section 7 and 8 since the patient refused to sign the conditional voluntary. 2. Continue with Zyprexa at bedtime. We are increasing Zyprexa up to 10 mg p.o. q.h.s. in October 27 since the patient had been more intrusive and disinhibited. 3. The occupational therapist did an Hebert test and he scored 3.2, he used to be on 3.6 a few months ago. That means that he will need 24 hour care. We are going to start Aricept to target dementia. So far the patient did not have any side effects still cognitively impaired. 4. Namenda 5 mg p.o. b.i.d. started to target dementia. It was increased up to 10 mg p.o. b.i.d. 5. Filed for guardianship. Waiting for the paperwork since the hearing was last Saturday. 6. He had been more despondent and disorganized, urinating on paper cups. I am ordering an UA on 12/04 and it came negative for UTI. Reason for continued inpatient stay Substantial Risk for: inability to function, rapid decompensation and med/psych decompensation Time Spent With Patient Time: Total time managing care of this patient today _20___ minutes.
[2022-12-10 18:00] VITALS: BP 111/65; PULSE 64; RESP 16; TEMP 36.6; O2SAT 94
[2022-12-10] MEDS: Donepezil HCl 10 MG TABLET PO (21:06)
[2022-12-10] MEDS: OLANZapine 10 MG TABLET PO (21:08)
[2022-12-11 06:00] VITALS: BP 120/75; PULSE 67; RESP 18; TEMP 36.8; O2SAT 96
[2022-12-11] MEDS: Memantine HCl 10 MG TABLET PO ×2 (08:24→20:46)
[2022-12-11] MEDS: Acetaminophen 325 MG TABLET 975 MG PO ×3 (08:24→20:47)
[2022-12-11] MEDS: Lidocaine 4 % Patch ADH..PATCH 1 PATCH TRANSDERMA (08:24)
--- NOTE | 2022-12-11 11:40 | P.PNPSI_ITS ---
Subjective Subjective Date of Service: 12/11/22 Reason For Visit: F31.9, F43.25 Subjective Notes: Section 7 and Section 8 Interim History: The nursing staff reported the patient had been compliant with treatment most of the time isolative in his room. The director of social work reported that she spoke with the guardian and they are in the process of getting medicate so he can have funding for placement. On interview the patient denies new symptoms, poor short-term memory unable to remember discussions that we had before. Mental Status Exam Mental Status Exam Patient Appearance: Unkempt Patient Orientation: Person and Situation Level of Consciousness: Awake Patient Behavior: Guarded Mood Description: Withdrawn Affect Description: Constricted Patient Cognition Impaired: Yes Ability to Follow Directions: Good Speech Pattern: Clear Hallucinations: None Delusions: Not Present Thought Process: Distracted Thought Content: positive for [place] and positive for Poverty of Content Judgement: Poor Diagnostics Vital Signs (24Hr): Vital Signs - 24 hr 12/10/22 18:00 12/11/22 06:00 Temperature 97.9 F 98.2 F Pulse Rate 64 67 Respiratory Rate 16 18 Blood Pressure 111/65 120/75 Pulse Oximetry 94 96 Oxygen Delivery Method Room Air Room Air BMI result Body Mass Index 27.7 Labs 12/03/22 11:52 Medications Medications Current Medications Acetaminophen (Acetaminophen 325 Mg Tablet) 975 mg PO TID [facility] Last Admin: 12/11/22 08:24 Dose: 975 mg Al Hydroxide/Mg Hydroxide (Magnesium Hydrox/Alum Hydrox 30 Ml Oral.Susp) 30 ml PO Q6H PRN PRN Reason: Heartburn/Nausea Donepezil HCl (Donepezil Hcl 10 Mg Tablet) 10 mg PO BEDTIME [facility] Last Admin: 12/10/22 21:06 Dose: 10 mg Hydroxyzine HCl (Hydroxyzine Hcl 25 Mg Tablet) 25 mg PO Q6H PRN PRN Reason: Anxiety Last Admin: 12/08/22 02:30 Dose: 25 mg Lidocaine (Lidocaine 4 % Patch Adh..Patch) 1 patch TRANSDERMA DAILY [facility]; Protocol Last Admin: 12/11/22 08:24 Dose: 1 patch Magnesium Hydroxide (Milk Of Magnesia 30 Ml Oral.Susp) 30 ml PO DAILY PRN PRN Reason: Constipation Memantine (Memantine Hcl 10 Mg Tablet) 10 mg PO BID [facility] Last Admin: 12/11/22 08:24 Dose: 10 mg Olanzapine (Olanzapine 2.5 Mg Tablet) 2.5 mg PO TID PRN PRN Reason: agitation Last Admin: 11/11/22 09:52 Dose: 2.5 mg Olanzapine (Olanzapine 10 Mg Tablet) 10 mg PO BEDTIME [facility] Last Admin: 12/10/22 21:08 Dose: 10 mg Trazodone HCl (Trazodone Hcl 50 Mg Tablet) 50 mg PO BEDTIME PRN PRN Reason: Insomnia Last Admin: 12/01/22 20:48 Dose: 50 mg Allergies Allergies Allergy/AdvReac Type Severity Reaction Status Date / Time pollen extracts Allergy Unknown unknown Verified 04/21/22 14:56 latex Allergy Rash Verified 10/31/22 18:30 Assessment & Plan Assessment & Plan (1) Bipolar disorder, now depressed: Status: Acute Code(s): F31.30 - Bipolar disorder, current episode depressed, mild or moderate severity, unspecified (2) Cognitive impairment: Status: Acute Code(s): R41.89 - Other symptoms and signs involving cognitive functions and awareness Plan 82 year old male with history hyperlipidemia, tubular adenoma colon (last colonoscopy 12/21), BPH, chronic normocytic anemia, osteoarthritis shoulders and hips s/p b/l hip arthroplasty, chronic low back pain with lumbar stenosis, depression, hx rotator cuff tear, actinic keratosis, and atypical melanocytic hyperplasia admitted to geriatric psychiatry from [facility] with consult placed to medical hospitalist service for medical H&P. 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 Can use ibuprofen 600mg q6h prn as well if topical diclofenac unavailable. #Chronic left hip pain -per ED provider note at [facility], patient foot got stuck in a hole several months ago and fell onto the left hip. Subsequent imaging studies including x-ray of the hip/pelvis and CT of the pelvis are negative for fracture -Pain management as above -outpt follow up Pt refused physical extensive. Extensive review of prior note and records from [facility] conducted as noted above. Plan 1. Gather collateral information. His niece called and she provide more collateral information to the director of social work. Currently the patient is homeless and he is unable to take care of himself. We had to filed for Section 7 and 8 since the patient refused to sign the conditional voluntary. 2. Continue with Zyprexa at bedtime. We are increasing Zyprexa up to 10 mg p.o. q.h.s. in October 27 since the patient had been more intrusive and disinhibited. 3. The occupational therapist did an Hebert test and he scored 3.2, he used to be on 3.6 a few months ago. That means that he will need 24 hour care. We are going to start Aricept to target dementia. So far the patient did not have any side effects still cognitively impaired. 4. Namenda 5 mg p.o. b.i.d. started to target dementia. It was increased up to 10 mg p.o. b.i.d. 5. Filed for guardianship. Waiting for the paperwork since the hearing was last Saturday. 6. He had been more despondent and disorganized, urinating on paper cups. I am ordering an UA on 12/04 and it came negative for UTI. Reason for continued inpatient stay Substantial Risk for: inability to function, rapid decompensation and med/psych decompensation Time Spent With Patient Time: Total time managing care of this patient today __20__ minutes.
[2022-12-11 18:00] VITALS: BP 119/62; PULSE 73; RESP 16; TEMP 36.4; O2SAT 97
[2022-12-11] MEDS: OLANZapine 10 MG TABLET PO (20:46)
[2022-12-11] MEDS: Donepezil HCl 10 MG TABLET PO (20:48)
[2022-12-11] MEDS: traZODone HCL 50 MG TABLET PO (20:48)
[2022-12-12 08:09] VITALS: BP 118/67; PULSE 70; RESP 16; TEMP 35.9; O2SAT 94
[2022-12-12] MEDS: Acetaminophen 325 MG TABLET 975 MG PO ×3 (08:13→20:49)
[2022-12-12] MEDS: Memantine HCl 10 MG TABLET PO ×2 (08:13→20:51)
[2022-12-12] MEDS: Lidocaine 4 % Patch ADH..PATCH 1 PATCH TRANSDERMA (08:15)
--- NOTE | 2022-12-12 14:36 | P.PNPSI_ITS ---
Subjective Subjective Date of Service: 12/12/22 Reason For Visit: F31.9, F43.25 Subjective Notes: Section 7 and Section 8 Interim History: The nursing staff reported no changes in his mental status. The social sciences department chair reported that he had been referred to our [facility] nursing [facility]. On interview the patient denies new symptoms, waiting for placement. Mental Status Exam Mental Status Exam Patient Appearance: Appropriate and Unkempt Patient Orientation: Person and Situation Level of Consciousness: Awake Patient Behavior: Guarded and Passive Mood Description: Withdrawn Affect Description: Constricted Patient Cognition Impaired: Yes Speech Pattern: Clear Hallucinations: None Delusions: Not Present Thought Process: Distracted and Slowed Thinking Thought Content: positive for [place] and positive for Poverty of Content Judgement: Poor Diagnostics Vital Signs (24Hr): Vital Signs - 24 hr 12/11/22 18:00 12/12/22 08:09 Temperature 97.6 F 96.6 F L Pulse Rate 73 70 Respiratory Rate 16 16 Blood Pressure 119/62 118/67 Pulse Oximetry 97 94 Oxygen Delivery Method Room Air Room Air BMI result Body Mass Index 27.7 Labs 12/03/22 11:52 Medications Medications Current Medications Acetaminophen (Acetaminophen 325 Mg Tablet) 975 mg PO TID [facility] Last Admin: 12/12/22 08:13 Dose: 975 mg Al Hydroxide/Mg Hydroxide (Magnesium Hydrox/Alum Hydrox 30 Ml Oral.Susp) 30 ml PO Q6H PRN PRN Reason: Heartburn/Nausea Donepezil HCl (Donepezil Hcl 10 Mg Tablet) 10 mg PO BEDTIME [facility] Last Admin: 12/11/22 20:48 Dose: 10 mg Hydroxyzine HCl (Hydroxyzine Hcl 25 Mg Tablet) 25 mg PO Q6H PRN PRN Reason: Anxiety Last Admin: 12/08/22 02:30 Dose: 25 mg Lidocaine (Lidocaine 4 % Patch Adh..Patch) 1 patch TRANSDERMA DAILY [facility]; Protocol Last Admin: 12/12/22 08:15 Dose: 1 patch Magnesium Hydroxide (Milk Of Magnesia 30 Ml Oral.Susp) 30 ml PO DAILY PRN PRN Reason: Constipation Memantine (Memantine Hcl 10 Mg Tablet) 10 mg PO BID [facility] Last Admin: 12/12/22 08:13 Dose: 10 mg Olanzapine (Olanzapine 2.5 Mg Tablet) 2.5 mg PO TID PRN PRN Reason: agitation Last Admin: 11/11/22 09:52 Dose: 2.5 mg Olanzapine (Olanzapine 10 Mg Tablet) 10 mg PO BEDTIME [facility] Last Admin: 12/11/22 20:46 Dose: 10 mg Trazodone HCl (Trazodone Hcl 50 Mg Tablet) 50 mg PO BEDTIME PRN PRN Reason: Insomnia Last Admin: 12/11/22 20:48 Dose: 50 mg Allergies Allergies Allergy/AdvReac Type Severity Reaction Status Date / Time pollen extracts Allergy Unknown unknown Verified 04/21/22 14:56 latex Allergy Rash Verified 10/31/22 18:30 Assessment & Plan Assessment & Plan (1) Bipolar disorder, now depressed: Status: Acute Code(s): F31.30 - Bipolar disorder, current episode depressed, mild or moderate severity, unspecified (2) Cognitive impairment: Status: Acute Code(s): R41.89 - Other symptoms and signs involving cognitive functions and awareness Plan 82 year old male with history hyperlipidemia, tubular adenoma colon (last colonoscopy 12/21), BPH, chronic normocytic anemia, osteoarthritis shoulders and hips s/p b/l hip arthroplasty, chronic low back pain with lumbar stenosis, depression, hx rotator cuff tear, actinic keratosis, and atypical melanocytic hyperplasia admitted to geriatric psychiatry from [facility] with consult placed to medical hospitalist service for medical H&P. 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 Can use ibuprofen 600mg q6h prn as well if topical diclofenac unavailable. #Chronic left hip pain -per ED provider note at [facility], patient foot got stuck in a hole several months ago and fell onto the left hip. Subsequent imaging studies including x-ray of the hip/pelvis and CT of the pelvis are negative for fracture -Pain management as above -outpt follow up Pt refused physical extensive. Extensive review of prior note and records from [facility] conducted as noted above. Plan 1. Gather collateral information. His niece called and she provide more collateral information to the social sciences department chair. Currently the patient is homeless and he is unable to take care of himself. We had to filed for Section 7 and 8 since the patient refused to sign the conditional voluntary. 2. Continue with Zyprexa at bedtime. We are increasing Zyprexa up to 10 mg p.o. q.h.s. in October 27 since the patient had been more intrusive and disinhibited. 3. The occupational therapist did an Hebert test and he scored 3.2, he used to be on 3.6 a few months ago. That means that he will need 24 hour care. We are going to start Aricept to target dementia. So far the patient did not have any side effects still cognitively impaired. 4. Namenda 5 mg p.o. b.i.d. started to target dementia. It was increased up to 10 mg p.o. b.i.d. 5. Filed for guardianship. Waiting for the paperwork since the hearing was last Saturday. 6. He had been more despondent and disorganized, urinating on paper cups. I am ordering an UA on 12/04 and it came negative for UTI. Reason for continued inpatient stay Substantial Risk for: inability to function, rapid decompensation and med/psych decompensation Time Spent With Patient Time: Total time managing care of this patient today __20__ minutes.
[2022-12-12 18:00] VITALS: BP 112/56; PULSE 65; RESP 18; TEMP 35.7; O2SAT 95
[2022-12-12] MEDS: Donepezil HCl 10 MG TABLET PO (20:50)
[2022-12-12] MEDS: OLANZapine 10 MG TABLET PO (20:51)
[2022-12-12] MEDS: traZODone HCL 50 MG TABLET PO (20:51)
[2022-12-13 08:18] VITALS: BP 169/78; PULSE 71; RESP 16; TEMP 36.2; O2SAT 97
[2022-12-13] MEDS: Acetaminophen 325 MG TABLET 975 MG PO ×3 (08:23→20:36)
[2022-12-13] MEDS: Lidocaine 4 % Patch ADH..PATCH 1 PATCH TRANSDERMA (08:23)
[2022-12-13] MEDS: Memantine HCl 10 MG TABLET PO ×2 (08:24→20:38)
[2022-12-13 09:57] VITALS: BMI 27.3
--- NOTE | 2022-12-13 12:52 | HO.PSYCHPN ---
Subjective Subjective Date of Service: 12/13/22 Reason For Visit: F31.9, F43.25 Subjective Notes: Section 7 and Section 8 Interim History: The nursing staff reported the patient had been out in the milieu visible. He slept 6 hours The social economist reported that his guardian will come on Saturday and visit him and explained about his legal situation. On interview the patient denies new symptoms, he stated that he used to take sole of but he has bipolar and he can become manic. Waiting for placement. Mental Status Exam Mental Status Exam Patient Appearance: Appropriate and Unkempt Patient Orientation: Person and Situation Level of Consciousness: Awake and Appropriate Patient Behavior: Guarded and Passive Mood Description: Withdrawn Affect Description: Constricted Patient Cognition Impaired: Yes Ability to Follow Directions: Fair Speech Pattern: Clear Hallucinations: None Delusions: Not Present Thought Process: Distracted and Slowed Thinking Thought Content: positive for [place] and positive for Poverty of Content Judgement: Poor Diagnostics Vital Signs (24Hr): Vital Signs - 24 hr 12/12/22 18:00 12/13/22 08:18 Temperature 96.3 F L 97.2 F Pulse Rate 65 71 Respiratory Rate 18 16 Blood Pressure 112/56 L 169/78 H Pulse Oximetry 95 97 Oxygen Delivery Method Room Air Nasal Cannula BMI result Body Mass Index 27.3 Labs 12/03/22 11:52 Medications Medications Current Medications Acetaminophen (Acetaminophen 325 Mg Tablet) 975 mg PO TID [facility] Last Admin: 12/13/22 08:23 Dose: 975 mg Al Hydroxide/Mg Hydroxide (Magnesium Hydrox/Alum Hydrox 30 Ml Oral.Susp) 30 ml PO Q6H PRN PRN Reason: Heartburn/Nausea Donepezil HCl (Donepezil Hcl 10 Mg Tablet) 10 mg PO BEDTIME [facility] Last Admin: 12/12/22 20:50 Dose: 10 mg Hydroxyzine HCl (Hydroxyzine Hcl 25 Mg Tablet) 25 mg PO Q6H PRN PRN Reason: Anxiety Last Admin: 12/08/22 02:30 Dose: 25 mg Lidocaine (Lidocaine 4 % Patch Adh..Patch) 1 patch TRANSDERMA DAILY [facility]; Protocol Last Admin: 12/13/22 08:23 Dose: 1 patch Magnesium Hydroxide (Milk Of Magnesia 30 Ml Oral.Susp) 30 ml PO DAILY PRN PRN Reason: Constipation Memantine (Memantine Hcl 10 Mg Tablet) 10 mg PO BID [facility] Last Admin: 12/13/22 08:24 Dose: 10 mg Olanzapine (Olanzapine 2.5 Mg Tablet) 2.5 mg PO TID PRN PRN Reason: agitation Last Admin: 11/11/22 09:52 Dose: 2.5 mg Olanzapine (Olanzapine 10 Mg Tablet) 10 mg PO BEDTIME [facility] Last Admin: 12/12/22 20:51 Dose: 10 mg Trazodone HCl (Trazodone Hcl 50 Mg Tablet) 50 mg PO BEDTIME PRN PRN Reason: Insomnia Last Admin: 12/12/22 20:51 Dose: 50 mg Allergies Allergies Allergy/AdvReac Type Severity Reaction Status Date / Time pollen extracts Allergy Unknown unknown Verified 04/21/22 14:56 latex Allergy Rash Verified 10/31/22 18:30 Assessment & Plan Assessment & Plan (1) Bipolar disorder, now depressed: Status: Acute Code(s): F31.30 - Bipolar disorder, current episode depressed, mild or moderate severity, unspecified (2) Cognitive impairment: Status: Acute Code(s): R41.89 - Other symptoms and signs involving cognitive functions and awareness Plan 82 year old male with history hyperlipidemia, tubular adenoma colon (last colonoscopy 12/21), BPH, chronic normocytic anemia, osteoarthritis shoulders and hips s/p b/l hip arthroplasty, chronic low back pain with lumbar stenosis, depression, hx rotator cuff tear, actinic keratosis, and atypical melanocytic hyperplasia admitted to geriatric psychiatry from [facility] with consult placed to medical hospitalist service for medical H&P. 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 Can use ibuprofen 600mg q6h prn as well if topical diclofenac unavailable. #Chronic left hip pain -per ED provider note at [facility], patient foot got stuck in a hole several months ago and fell onto the left hip. Subsequent imaging studies including x-ray of the hip/pelvis and CT of the pelvis are negative for fracture -Pain management as above -outpt follow up Pt refused physical extensive. Extensive review of prior note and records from [facility] conducted as noted above. Plan 1. Gather collateral information. His niece called and she provide more collateral information to the social economist. Currently the patient is homeless and he is unable to take care of himself. We had to filed for Section 7 and 8 since the patient refused to sign the conditional voluntary. 2. Continue with Zyprexa at bedtime. We are increasing Zyprexa up to 10 mg p.o. q.h.s. in October 27 since the patient had been more intrusive and disinhibited. 3. The occupational therapist did an Hebert test and he scored 3.2, he used to be on 3.6 a few months ago. That means that he will need 24 hour care. We are going to start Aricept to target dementia. So far the patient did not have any side effects still cognitively impaired. 4. Namenda 5 mg p.o. b.i.d. started to target dementia. It was increased up to 10 mg p.o. b.i.d. 5. Filed for guardianship. Waiting for the paperwork since the hearing was last Saturday. 6. He had been more despondent and disorganized, urinating on paper cups. I am ordering an UA on 12/04 and it came negative for UTI. Reason for continued inpatient stay Substantial Risk for: inability to function, rapid decompensation and med/psych decompensation Time Spent With Patient Time: Total time managing care of this patient today __20__ minutes.
[2022-12-13 18:00] VITALS: BP 98/55; PULSE 60; RESP 16; TEMP 36.1; O2SAT 96
[2022-12-13] MEDS: OLANZapine 10 MG TABLET PO (20:37)
[2022-12-13] MEDS: Donepezil HCl 10 MG TABLET PO (20:38)
[2022-12-13] MEDS: traZODone HCL 50 MG TABLET PO (20:38)
[2022-12-14 08:19] VITALS: BP 154/75; PULSE 68; RESP 18; TEMP 36.6; O2SAT 93
[2022-12-14] MEDS: Memantine HCl 10 MG TABLET PO ×2 (08:22→20:01)
[2022-12-14] MEDS: Acetaminophen 325 MG TABLET 975 MG PO ×3 (08:22→19:59)
[2022-12-14] MEDS: Lidocaine 4 % Patch ADH..PATCH 1 PATCH TRANSDERMA (08:23)
--- NOTE | 2022-12-14 15:49 | P.PNPSI_ITS ---
Subjective Subjective Date of Service: 12/14/22 Reason For Visit: F31.9, F43.25 Subjective Notes: Section 7 and Section 8 Interim History: The nursing staff reported the patient had been mostly isolative no changes in his mental status. He claimed that he had been depressed and he his sertraline but his bipolar and he can become manic with SSRIs. On interview the patient denies new symptoms, waiting for placement. Mental Status Exam Mental Status Exam Patient Appearance: Appropriate and Unkempt Patient Orientation: Person Level of Consciousness: Awake and Appropriate Patient Behavior: Guarded and Passive Mood Description: Withdrawn Affect Description: Constricted Patient Cognition Impaired: Yes Ability to Follow Directions: Good Speech Pattern: Clear Hallucinations: None Delusions: Not Present Thought Process: Distracted and Linear Thought Content: positive for [place] and positive for Poverty of Content Judgement: Fair Diagnostics Vital Signs (24Hr): Vital Signs - 24 hr 12/13/22 18:00 12/14/22 08:19 Temperature 97 F 97.8 F Pulse Rate 60 68 Respiratory Rate 16 18 Blood Pressure 98/55 L 154/75 H Pulse Oximetry 96 93 Oxygen Delivery Method Room Air Room Air BMI result Body Mass Index 27.3 Labs 12/03/22 11:52 Medications Medications Current Medications Acetaminophen (Acetaminophen 325 Mg Tablet) 975 mg PO TID [facility] Last Admin: 12/14/22 08:22 Dose: 975 mg Al Hydroxide/Mg Hydroxide (Magnesium Hydrox/Alum Hydrox 30 Ml Oral.Susp) 30 ml PO Q6H PRN PRN Reason: Heartburn/Nausea Donepezil HCl (Donepezil Hcl 10 Mg Tablet) 10 mg PO BEDTIME [facility] Last Admin: 12/13/22 20:38 Dose: 10 mg Hydroxyzine HCl (Hydroxyzine Hcl 25 Mg Tablet) 25 mg PO Q6H PRN PRN Reason: Anxiety Last Admin: 12/08/22 02:30 Dose: 25 mg Lamotrigine (Lamotrigine 25 Mg Tablet) 25 mg PO BEDTIME [facility] Lidocaine (Lidocaine 4 % Patch Adh..Patch) 1 patch TRANSDERMA DAILY [facility]; Protocol Last Admin: 12/14/22 08:23 Dose: 1 patch Magnesium Hydroxide (Milk Of Magnesia 30 Ml Oral.Susp) 30 ml PO DAILY PRN PRN Reason: Constipation Memantine (Memantine Hcl 10 Mg Tablet) 10 mg PO BID [facility] Last Admin: 12/14/22 08:22 Dose: 10 mg Olanzapine (Olanzapine 2.5 Mg Tablet) 2.5 mg PO TID PRN PRN Reason: agitation Last Admin: 11/11/22 09:52 Dose: 2.5 mg Olanzapine (Olanzapine 10 Mg Tablet) 10 mg PO BEDTIME [facility] Last Admin: 12/13/22 20:37 Dose: 10 mg Trazodone HCl (Trazodone Hcl 50 Mg Tablet) 50 mg PO BEDTIME PRN PRN Reason: Insomnia Last Admin: 12/13/22 20:38 Dose: 50 mg Allergies Allergies Allergy/AdvReac Type Severity Reaction Status Date / Time pollen extracts Allergy Unknown unknown Verified 04/21/22 14:56 latex Allergy Rash Verified 10/31/22 18:30 Assessment & Plan Assessment & Plan (1) Bipolar disorder, now depressed: Status: Acute Code(s): F31.30 - Bipolar disorder, current episode depressed, mild or moderate severity, unspecified (2) Cognitive impairment: Status: Acute Code(s): R41.89 - Other symptoms and signs involving cognitive functions and awareness Plan 82 year old male with history hyperlipidemia, tubular adenoma colon (last colonoscopy 12/21), BPH, chronic normocytic anemia, osteoarthritis shoulders and hips s/p b/l hip arthroplasty, 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 Can use ibuprofen 600mg q6h prn as well if topical diclofenac unavailable. #Chronic left hip pain -per ED provider note at [facility], patient foot got stuck in a hole several months ago and fell onto the left hip. Subsequent imaging studies including x-ray of the hip/pelvis and CT of the pelvis are negative for fracture -Pain management as above -outpt follow up Pt refused physical extensive. Extensive review of prior note and records from [facility] conducted as noted above. Plan 1. Gather collateral information. His niece called and she provide more collateral information to the social security benefits interviewer. Currently the patient is homeless and he is unable to take care of himself. We had to filed for Section 7 and 8 since the patient refused to sign the conditional voluntary. 2. Continue with Zyprexa at bedtime. We are increasing Zyprexa up to 10 mg p.o. q.h.s. in October 27 since the patient had been more intrusive and disinhibited. 3. The occupational therapist did an Hebert test and he scored 3.2, he used to be on 3.6 a few months ago. That means that he will need 24 hour care. We are going to start Aricept to target dementia. So far the patient did not have any side effects still cognitively impaired. 4. Namenda 5 mg p.o. b.i.d. started to target dementia. It was increased up to 10 mg p.o. b.i.d. 5. Filed for guardianship. Waiting for the paperwork since the hearing was last Saturday. 6. He had been more despondent and disorganized, urinating on paper cups. I am ordering an UA on 12/04 and it came negative for UTI. Reason for continued inpatient stay Substantial Risk for: inability to function, rapid decompensation and med/psych decompensation Time Spent With Patient Time: Total time managing care of this patient today __20__ minutes.
[2022-12-14 18:00] VITALS: BP 108/69; PULSE 68; RESP 18; TEMP 36.2; O2SAT 92
[2022-12-14] MEDS: lamoTRIgine 25 MG TABLET PO (20:00)
[2022-12-14] MEDS: Donepezil HCl 10 MG TABLET PO (20:01)
[2022-12-14] MEDS: OLANZapine 10 MG TABLET PO (20:01)
[2022-12-14] MEDS: traZODone HCL 50 MG TABLET PO (20:01)
[2022-12-15 06:00] VITALS: BP 102/59; PULSE 68; RESP 18; TEMP 35.8; O2SAT 95
[2022-12-15] MEDS: Acetaminophen 325 MG TABLET 975 MG PO ×2 (09:36→15:23)
--- NOTE | 2022-12-15 11:51 | PC.NURSE ---
Medication not available this am, will not take the medication now(Namenda).
[2022-12-15 18:00] VITALS: BP 135/68; PULSE 69; RESP 16; TEMP 36.2; O2SAT 97
--- NOTE | 2022-12-15 20:04 | HO.PSYCHPN ---
Subjective Subjective Date of Service: 12/15/22 Reason For Visit: F31.9, F43.25 Subjective Notes: Section 8 Interim History: Pt visible, somewhat irritable. He reports he is on too many medications. Pt slept through the night. No combative behaviors. No SI/HI. he is eating well. Review of Systems Review of Systems unremarkable Yes all other systems are reviewed and are negative and Unobtainable due to mental status Mental Status Exam Mental Status Exam Patient Appearance: Appropriate and Unkempt Patient Orientation: Person Level of Consciousness: Awake and Appropriate Patient Behavior: Guarded and Passive Mood Description: Withdrawn Affect Description: Constricted Patient Cognition Impaired: Yes Ability to Follow Directions: Good Speech Pattern: Clear Diagnostics Vital Signs (24Hr): Vital Signs - 24 hr 12/15/22 06:00 Temperature 96.5 F L Pulse Rate 68 Respiratory Rate 18 Blood Pressure 102/59 L Pulse Oximetry 95 Oxygen Delivery Method Room Air BMI result Body Mass Index 27.3 Labs 12/03/22 11:52 Medications Medications Current Medications Acetaminophen (Acetaminophen 325 Mg Tablet) 975 mg PO TID [facility] Last Admin: 12/15/22 15:23 Dose: 975 mg Al Hydroxide/Mg Hydroxide (Magnesium Hydrox/Alum Hydrox 30 Ml Oral.Susp) 30 ml PO Q6H PRN PRN Reason: Heartburn/Nausea Donepezil HCl (Donepezil Hcl 10 Mg Tablet) 10 mg PO BEDTIME [facility] Last Admin: 12/14/22 20:01 Dose: 10 mg Hydroxyzine HCl (Hydroxyzine Hcl 25 Mg Tablet) 25 mg PO Q6H PRN PRN Reason: Anxiety Last Admin: 12/08/22 02:30 Dose: 25 mg Lamotrigine (Lamotrigine 25 Mg Tablet) 25 mg PO BEDTIME [facility] Last Admin: 12/14/22 20:00 Dose: 25 mg Lidocaine (Lidocaine 4 % Patch Adh..Patch) 1 patch TRANSDERMA DAILY [facility]; Protocol Last Admin: 12/15/22 09:38 Dose: Not Given Magnesium Hydroxide (Milk Of Magnesia 30 Ml Oral.Susp) 30 ml PO DAILY PRN PRN Reason: Constipation Memantine (Memantine Hcl 10 Mg Tablet) 10 mg PO BID [facility] Last Admin: 12/15/22 11:51 Dose: Not Given Olanzapine (Olanzapine 2.5 Mg Tablet) 2.5 mg PO TID PRN PRN Reason: agitation Last Admin: 11/11/22 09:52 Dose: 2.5 mg Olanzapine (Olanzapine 10 Mg Tablet) 10 mg PO BEDTIME [facility] Last Admin: 12/14/22 20:01 Dose: 10 mg Trazodone HCl (Trazodone Hcl 50 Mg Tablet) 50 mg PO BEDTIME PRN PRN Reason: Insomnia Last Admin: 12/14/22 20:01 Dose: 50 mg Allergies Allergies Allergy/AdvReac Type Severity Reaction Status Date / Time pollen extracts Allergy Unknown unknown Verified 04/21/22 14:56 latex Allergy Rash Verified 10/31/22 18:30 Assessment & Plan Assessment & Plan (1) Bipolar disorder, now depressed: Status: Acute Code(s): F31.30 - Bipolar disorder, current episode depressed, mild or moderate severity, unspecified (2) Cognitive impairment: Status: Acute Code(s): R41.89 - Other symptoms and signs involving cognitive functions and awareness Plan 82 year old male with history hyperlipidemia, tubular adenoma colon (last colonoscopy 12/21), BPH, chronic normocytic anemia, osteoarthritis shoulders and hips s/p b/l hip arthroplasty, chronic low back pain with lumbar stenosis, depression, hx rotator cuff tear, actinic keratosis, and atypical melanocytic hyperplasia admitted to geriatric psychiatry from [facility] with consult placed to medical hospitalist service for medical H&P. 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 Can use ibuprofen 600mg q6h prn as well if topical diclofenac unavailable. #Chronic left hip pain -per ED provider note at [facility], patient foot got stuck in a hole several months ago and fell onto the left hip. Subsequent imaging studies including x-ray of the hip/pelvis and CT of the pelvis are negative for fracture -Pain management as above -outpt follow up Pt refused physical extensive. Extensive review of prior note and records from [facility] conducted as noted above. Plan 12/15 continue tx. Reason for continued inpatient stay Substantial Risk for: inability to function Time Spent With Patient Time: Total time managing care of this patient today ____ minutes.
[2022-12-16 08:05] VITALS: BP 132/70; PULSE 68; RESP 18; TEMP 36.8; O2SAT 97
[2022-12-16] MEDS: Memantine HCl 10 MG TABLET PO (08:42)
[2022-12-16] MEDS: Lidocaine 4 % Patch ADH..PATCH 1 PATCH TRANSDERMA (08:42)
[2022-12-16] MEDS: Acetaminophen 325 MG TABLET 975 MG PO ×3 (08:42→21:15)
[2022-12-16 18:00] VITALS: BP 129/78; PULSE 70; RESP 16; TEMP 36.4; O2SAT 94
--- NOTE | 2022-12-16 20:16 | HO.PSYCHPN ---
Subjective Subjective Date of Service: 12/16/22 Reason For Visit: F31.9, F43.25 Interim History: Pt visible, somewhat guarded again when this copywriter approach him. He reports he is on too many medications. Pt slept through the night. No combative behaviors. No SI/HI. he is eating well. Review of Systems Review of Systems unremarkable Yes all other systems are reviewed and are negative and Unobtainable due to mental status Mental Status Exam Mental Status Exam Patient Appearance: Appropriate and Unkempt Patient Orientation: Person Level of Consciousness: Awake and Appropriate Patient Behavior: Guarded and Passive Mood Description: Withdrawn Affect Description: Constricted Patient Cognition Impaired: Yes Ability to Follow Directions: Good Speech Pattern: Clear Diagnostics Vital Signs (24Hr): Vital Signs - 24 hr 12/16/22 08:05 Temperature 98.2 F Pulse Rate 68 Respiratory Rate 18 Blood Pressure 132/70 Pulse Oximetry 97 Oxygen Delivery Method Room Air BMI result Body Mass Index 27.3 Labs 12/03/22 11:52 Medications Medications Current Medications Acetaminophen (Acetaminophen 325 Mg Tablet) 975 mg PO TID [facility] Last Admin: 12/16/22 15:34 Dose: 975 mg Al Hydroxide/Mg Hydroxide (Magnesium Hydrox/Alum Hydrox 30 Ml Oral.Susp) 30 ml PO Q6H PRN PRN Reason: Heartburn/Nausea Donepezil HCl (Donepezil Hcl 10 Mg Tablet) 10 mg PO BEDTIME [facility] Last Admin: 12/15/22 20:57 Dose: Not Given Hydroxyzine HCl (Hydroxyzine Hcl 25 Mg Tablet) 25 mg PO Q6H PRN PRN Reason: Anxiety Last Admin: 12/08/22 02:30 Dose: 25 mg Lamotrigine (Lamotrigine 25 Mg Tablet) 25 mg PO BEDTIME [facility] Last Admin: 12/15/22 20:57 Dose: Not Given Lidocaine (Lidocaine 4 % Patch Adh..Patch) 1 patch TRANSDERMA DAILY [facility]; Protocol Last Admin: 12/16/22 08:42 Dose: 1 patch Magnesium Hydroxide (Milk Of Magnesia 30 Ml Oral.Susp) 30 ml PO DAILY PRN PRN Reason: Constipation Memantine (Memantine Hcl 10 Mg Tablet) 10 mg PO BID [facility] Last Admin: 12/16/22 08:42 Dose: 10 mg Olanzapine (Olanzapine 2.5 Mg Tablet) 2.5 mg PO TID PRN PRN Reason: agitation Last Admin: 11/11/22 09:52 Dose: 2.5 mg Olanzapine (Olanzapine 10 Mg Tablet) 10 mg PO BEDTIME [facility] Last Admin: 12/15/22 20:57 Dose: Not Given Trazodone HCl (Trazodone Hcl 50 Mg Tablet) 50 mg PO BEDTIME PRN PRN Reason: Insomnia Last Admin: 12/14/22 20:01 Dose: 50 mg Allergies Allergies Allergy/AdvReac Type Severity Reaction Status Date / Time pollen extracts Allergy Unknown unknown Verified 04/21/22 14:56 latex Allergy Rash Verified 10/31/22 18:30 Assessment & Plan Assessment & Plan (1) Bipolar disorder, now depressed: Status: Acute Code(s): F31.30 - Bipolar disorder, current episode depressed, mild or moderate severity, unspecified (2) Cognitive impairment: Status: Acute Code(s): R41.89 - Other symptoms and signs involving cognitive functions and awareness Plan 82 year old male with history hyperlipidemia, tubular adenoma colon (last colonoscopy 12/21), BPH, chronic normocytic anemia, osteoarthritis shoulders and hips s/p b/l hip arthroplasty, chronic low back pain with lumbar stenosis, depression, hx rotator cuff tear, actinic keratosis, and atypical melanocytic hyperplasia admitted to geriatric psychiatry from [facility] with consult placed to medical hospitalist service for medical H&P. 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 Can use ibuprofen 600mg q6h prn as well if topical diclofenac unavailable. #Chronic left hip pain -per ED provider note at [facility], patient foot got stuck in a hole several months ago and fell onto the left hip. Subsequent imaging studies including x-ray of the hip/pelvis and CT of the pelvis are negative for fracture -Pain management as above -outpt follow up Pt refused physical extensive. Extensive review of prior note and records from [facility] conducted as noted above. Plan 12/16 continue tx. Reason for continued inpatient stay Substantial Risk for: inability to function Time Spent With Patient Time: Total time managing care of this patient today ____ minutes.
[2022-12-16] MEDS: Donepezil HCl 10 MG TABLET PO (21:17)
[2022-12-16] MEDS: OLANZapine 10 MG TABLET PO (21:18)
[2022-12-16] MEDS: lamoTRIgine 25 MG TABLET PO (21:18)
[2022-12-16] MEDS: traZODone HCL 50 MG TABLET PO (21:18)
[2022-12-17 07:45] VITALS: BP 99/58; PULSE 68; RESP 16; TEMP 36.7; O2SAT 94
[2022-12-17] MEDS: Acetaminophen 325 MG TABLET 975 MG PO ×3 (08:50→20:29)
[2022-12-17] MEDS: Memantine HCl 10 MG TABLET PO ×2 (08:51→20:31)
[2022-12-17] MEDS: Lidocaine 4 % Patch ADH..PATCH 1 PATCH TRANSDERMA (08:55)
--- NOTE | 2022-12-17 13:26 | HO.PSYCHPN ---
Subjective Subjective Date of Service: 12/17/22 Reason For Visit: F31.9, F43.25 Subjective Notes: Section 7 and Section 8 Interim History: The nursing staff reported the patient had been more confused complaining of back pain. According to social science analyst arm his [facility] application needs to be restarted. On interview the patient denies new symptoms but he looks more dysphoric so we are increasing Lamictal up to 25 p.o. b.i.d. to target dysphoria. Mental Status Exam Mental Status Exam Patient Appearance: Appropriate Patient Orientation: Person and Situation Level of Consciousness: Awake Patient Behavior: Guarded and Passive Mood Description: Withdrawn Affect Description: Constricted Patient Cognition Impaired: Yes Ability to Follow Directions: Fair Speech Pattern: Clear Hallucinations: None Delusions: Paranoid Ideation Thought Process: Distracted and Slowed Thinking Thought Content: positive for [place] and positive for Poverty of Content Judgement: Poor Diagnostics Vital Signs (24Hr): Vital Signs - 24 hr 12/16/22 18:00 12/17/22 07:45 Temperature 97.6 F 98.0 F Pulse Rate 70 68 Respiratory Rate 16 16 Blood Pressure 129/78 99/58 L Pulse Oximetry 94 94 Oxygen Delivery Method Room Air Room Air BMI result Body Mass Index 27.3 Labs 12/03/22 11:52 Medications Medications Current Medications Acetaminophen (Acetaminophen 325 Mg Tablet) 975 mg PO TID [facility] Last Admin: 12/17/22 08:50 Dose: 975 mg Al Hydroxide/Mg Hydroxide (Magnesium Hydrox/Alum Hydrox 30 Ml Oral.Susp) 30 ml PO Q6H PRN PRN Reason: Heartburn/Nausea Donepezil HCl (Donepezil Hcl 10 Mg Tablet) 10 mg PO BEDTIME [facility] Last Admin: 12/16/22 21:17 Dose: 10 mg Hydroxyzine HCl (Hydroxyzine Hcl 25 Mg Tablet) 25 mg PO Q6H PRN PRN Reason: Anxiety Last Admin: 12/08/22 02:30 Dose: 25 mg Lamotrigine (Lamotrigine 25 Mg Tablet) 25 mg PO BID [facility] Lidocaine (Lidocaine 4 % Patch Adh..Patch) 1 patch TRANSDERMA DAILY [facility]; Protocol Last Admin: 12/17/22 08:55 Dose: 1 patch Magnesium Hydroxide (Milk Of Magnesia 30 Ml Oral.Susp) 30 ml PO DAILY PRN PRN Reason: Constipation Memantine (Memantine Hcl 10 Mg Tablet) 10 mg PO BID [facility] Last Admin: 12/17/22 08:51 Dose: 10 mg Olanzapine (Olanzapine 2.5 Mg Tablet) 2.5 mg PO TID PRN PRN Reason: agitation Last Admin: 11/11/22 09:52 Dose: 2.5 mg Olanzapine (Olanzapine 10 Mg Tablet) 10 mg PO BEDTIME [facility] Last Admin: 12/16/22 21:18 Dose: 10 mg Trazodone HCl (Trazodone Hcl 50 Mg Tablet) 50 mg PO BEDTIME PRN PRN Reason: Insomnia Last Admin: 12/16/22 21:18 Dose: 50 mg Allergies Allergies Allergy/AdvReac Type Severity Reaction Status Date / Time pollen extracts Allergy Unknown unknown Verified 04/21/22 14:56 latex Allergy Rash Verified 10/31/22 18:30 Assessment & Plan Assessment & Plan (1) Bipolar disorder, now depressed: Status: Acute Code(s): F31.30 - Bipolar disorder, current episode depressed, mild or moderate severity, unspecified (2) Cognitive impairment: Status: Acute Code(s): R41.89 - Other symptoms and signs involving cognitive functions and awareness Plan 82 year old male with history hyperlipidemia, tubular adenoma colon (last colonoscopy 12/21), BPH, chronic normocytic anemia, osteoarthritis shoulders and hips s/p b/l hip arthroplasty, 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 Can use ibuprofen 600mg q6h prn as well if topical diclofenac unavailable. #Chronic left hip pain -per ED provider note at [facility], patient foot got stuck in a hole several months ago and fell onto the left hip. Subsequent imaging studies including x-ray of the hip/pelvis and CT of the pelvis are negative for fracture -Pain management as above -outpt follow up Pt refused physical extensive. Extensive review of prior note and records from [facility] conducted as noted above. Plan 1. The patient now has a guardian and we are trying to look for placement since he does not have a home for himself for social support in the community. 2. Continue with Zyprexa as a mood stabilizer. 3. Increase Lamictal up to 25 p.o. b.i.d. on December 17 to target dysphoria. Reason for continued inpatient stay Substantial Risk for: inability to function, rapid decompensation and med/psych decompensation Time Spent With Patient Time: Total time managing care of this patient today __20__ minutes.
[2022-12-17 18:00] VITALS: BP 146/82; PULSE 75; TEMP 36.6; O2SAT 95
[2022-12-17] MEDS: lamoTRIgine 25 MG TABLET PO (20:30)
[2022-12-17] MEDS: OLANZapine 10 MG TABLET PO (20:30)
[2022-12-17] MEDS: traZODone HCL 50 MG TABLET PO (20:30)
[2022-12-17] MEDS: Donepezil HCl 10 MG TABLET PO (20:31)
[2022-12-18 08:35] VITALS: BP 102/56; PULSE 68; RESP 16; O2SAT 93
[2022-12-18] MEDS: lamoTRIgine 25 MG TABLET PO ×2 (08:40→20:24)
[2022-12-18] MEDS: Acetaminophen 325 MG TABLET 975 MG PO ×3 (08:40→20:22)
[2022-12-18] MEDS: Memantine HCl 10 MG TABLET PO ×2 (08:41→20:24)
[2022-12-18] MEDS: Lidocaine 4 % Patch ADH..PATCH 1 PATCH TRANSDERMA (08:42)
--- NOTE | 2022-12-18 13:49 | HO.PSYCHPN ---
Subjective Subjective Date of Service: 12/18/22 Reason For Visit: F31.9, F43.25 Subjective Notes: Section 7 and Section 8 Interim History: The nursing staff reported no changes in his mental status, he remains mostly hypoactive. On interview the patient denies new symptoms, waiting for placement. Mental Status Exam Mental Status Exam Patient Appearance: Appropriate and Unkempt Patient Orientation: Person and Situation Level of Consciousness: Awake Patient Behavior: Guarded and Passive Mood Description: Withdrawn Affect Description: Blunted Patient Cognition Impaired: Yes Ability to Follow Directions: Fair Speech Pattern: Clear Hallucinations: None Delusions: Not Present Thought Process: Distracted and Evasive Thought Content: positive for [place] and positive for Poverty of Content Judgement: Poor Diagnostics Vital Signs (24Hr): Vital Signs - 24 hr 12/17/22 18:00 12/18/22 08:35 Temperature 97.9 F Pulse Rate 75 68 Respiratory Rate 16 Blood Pressure 146/82 H 102/56 L Pulse Oximetry 95 93 Oxygen Delivery Method Room Air Room Air BMI result Body Mass Index 27.3 Labs 12/03/22 11:52 Medications Medications Current Medications Acetaminophen (Acetaminophen 325 Mg Tablet) 975 mg PO TID [facility] Last Admin: 12/18/22 08:40 Dose: 975 mg Al Hydroxide/Mg Hydroxide (Magnesium Hydrox/Alum Hydrox 30 Ml Oral.Susp) 30 ml PO Q6H PRN PRN Reason: Heartburn/Nausea Donepezil HCl (Donepezil Hcl 10 Mg Tablet) 10 mg PO BEDTIME [facility] Last Admin: 12/17/22 20:31 Dose: 10 mg Hydroxyzine HCl (Hydroxyzine Hcl 25 Mg Tablet) 25 mg PO Q6H PRN PRN Reason: Anxiety Last Admin: 12/08/22 02:30 Dose: 25 mg Lamotrigine (Lamotrigine 25 Mg Tablet) 25 mg PO BID [facility] Last Admin: 12/18/22 08:40 Dose: 25 mg Lidocaine (Lidocaine 4 % Patch Adh..Patch) 1 patch TRANSDERMA DAILY [facility]; Protocol Last Admin: 12/18/22 08:42 Dose: 1 patch Magnesium Hydroxide (Milk Of Magnesia 30 Ml Oral.Susp) 30 ml PO DAILY PRN PRN Reason: Constipation Memantine (Memantine Hcl 10 Mg Tablet) 10 mg PO BID [facility] Last Admin: 12/18/22 08:41 Dose: 10 mg Olanzapine (Olanzapine 2.5 Mg Tablet) 2.5 mg PO TID PRN PRN Reason: agitation Last Admin: 11/11/22 09:52 Dose: 2.5 mg Olanzapine (Olanzapine 10 Mg Tablet) 10 mg PO BEDTIME [facility] Last Admin: 12/17/22 20:30 Dose: 10 mg Trazodone HCl (Trazodone Hcl 50 Mg Tablet) 50 mg PO BEDTIME PRN PRN Reason: Insomnia Last Admin: 12/17/22 20:30 Dose: 50 mg Allergies Allergies Allergy/AdvReac Type Severity Reaction Status Date / Time pollen extracts Allergy Unknown unknown Verified 04/21/22 14:56 latex Allergy Rash Verified 10/31/22 18:30 Assessment & Plan Assessment & Plan (1) Bipolar disorder, now depressed: Status: Acute Code(s): F31.30 - Bipolar disorder, current episode depressed, mild or moderate severity, unspecified (2) Cognitive impairment: Status: Acute Code(s): R41.89 - Other symptoms and signs involving cognitive functions and awareness Plan 82 year old male with history hyperlipidemia, tubular adenoma colon (last colonoscopy 12/21), BPH, chronic normocytic anemia, osteoarthritis shoulders and hips s/p b/l hip arthroplasty, chronic low back pain with lumbar stenosis, depression, hx rotator cuff tear, actinic keratosis, and atypical melanocytic hyperplasia admitted to geriatric psychiatry from [facility] with consult placed to medical hospitalist service for medical H&P. 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 Can use ibuprofen 600mg q6h prn as well if topical diclofenac unavailable. #Chronic left hip pain -per ED provider note at [facility], patient foot got stuck in a hole several months ago and fell onto the left hip. Subsequent imaging studies including x-ray of the hip/pelvis and CT of the pelvis are negative for fracture -Pain management as above -outpt follow up Pt refused physical extensive. Extensive review of prior note and records from [facility] conducted as noted above. Plan 1. The patient now has a guardian and we are trying to look for placement since he does not have a home for himself for social support in the community. 2. Continue with Zyprexa as a mood stabilizer. 3. Increase Lamictal up to 25 p.o. b.i.d. on December 17 to target dysphoria. Reason for continued inpatient stay Substantial Risk for: inability to function, rapid decompensation and med/psych decompensation Time Spent With Patient Time: Total time managing care of this patient today __20__ minutes.
[2022-12-18 18:00] VITALS: BP 121/73; PULSE 64; RESP 18; TEMP 36.2; O2SAT 95
[2022-12-18] MEDS: traZODone HCL 50 MG TABLET PO (20:23)
[2022-12-18] MEDS: OLANZapine 10 MG TABLET PO (20:23)
[2022-12-18] MEDS: Donepezil HCl 10 MG TABLET PO (20:24)
[2022-12-19 09:12] VITALS: BP 128/77; PULSE 70; RESP 17; TEMP 36.1; O2SAT 93
[2022-12-19] MEDS: Acetaminophen 325 MG TABLET 975 MG PO ×3 (09:14→20:22)
[2022-12-19] MEDS: lamoTRIgine 25 MG TABLET PO ×2 (09:15→20:23)
[2022-12-19] MEDS: Lidocaine 4 % Patch ADH..PATCH 1 PATCH TRANSDERMA (09:15)
[2022-12-19] MEDS: Memantine HCl 10 MG TABLET PO ×2 (09:15→20:23)
--- NOTE | 2022-12-19 13:35 | HO.PSYCHPN ---
Subjective Subjective Date of Service: 12/19/22 Reason For Visit: F31.9, F43.25 Subjective Notes: Section 7 and Section 8 Interim History: The nursing staff reported the patient had been more social yesterday or visible in the common areas. On interview the patient denies new symptoms, waiting for placement. Mental Status Exam Mental Status Exam Patient Appearance: Appropriate and Unkempt Patient Orientation: Person and Situation Level of Consciousness: Awake and Appropriate Patient Behavior: Guarded and Passive Mood Description: Withdrawn Affect Description: Blunted Patient Cognition Impaired: Yes Ability to Follow Directions: Fair Speech Pattern: Clear Hallucinations: None Delusions: Not Present Thought Process: Distracted and Slowed Thinking Thought Content: positive for [place] and positive for Poverty of Content Judgement: Fair Diagnostics Vital Signs (24Hr): Vital Signs - 24 hr 12/18/22 18:00 12/19/22 09:12 Temperature 97.1 F 96.9 F Pulse Rate 64 70 Respiratory Rate 18 17 Blood Pressure 121/73 128/77 Pulse Oximetry 95 93 Oxygen Delivery Method Room Air Room Air BMI result Body Mass Index 27.3 Labs 12/03/22 11:52 Medications Medications Current Medications Acetaminophen (Acetaminophen 325 Mg Tablet) 975 mg PO TID [facility] Last Admin: 12/19/22 09:14 Dose: 975 mg Al Hydroxide/Mg Hydroxide (Magnesium Hydrox/Alum Hydrox 30 Ml Oral.Susp) 30 ml PO Q6H PRN PRN Reason: Heartburn/Nausea Donepezil HCl (Donepezil Hcl 10 Mg Tablet) 10 mg PO BEDTIME [facility] Last Admin: 12/18/22 20:24 Dose: 10 mg Hydroxyzine HCl (Hydroxyzine Hcl 25 Mg Tablet) 25 mg PO Q6H PRN PRN Reason: Anxiety Last Admin: 12/08/22 02:30 Dose: 25 mg Lamotrigine (Lamotrigine 25 Mg Tablet) 25 mg PO BID [facility] Last Admin: 12/19/22 09:15 Dose: 25 mg Lidocaine (Lidocaine 4 % Patch Adh..Patch) 1 patch TRANSDERMA DAILY [facility]; Protocol Last Admin: 12/19/22 09:15 Dose: 1 patch Magnesium Hydroxide (Milk Of Magnesia 30 Ml Oral.Susp) 30 ml PO DAILY PRN PRN Reason: Constipation Memantine (Memantine Hcl 10 Mg Tablet) 10 mg PO BID [facility] Last Admin: 12/19/22 09:15 Dose: 10 mg Olanzapine (Olanzapine 2.5 Mg Tablet) 2.5 mg PO TID PRN PRN Reason: agitation Last Admin: 11/11/22 09:52 Dose: 2.5 mg Olanzapine (Olanzapine 10 Mg Tablet) 10 mg PO BEDTIME [facility] Last Admin: 12/18/22 20:23 Dose: 10 mg Trazodone HCl (Trazodone Hcl 50 Mg Tablet) 50 mg PO BEDTIME PRN PRN Reason: Insomnia Last Admin: 12/18/22 20:23 Dose: 50 mg Allergies Allergies Allergy/AdvReac Type Severity Reaction Status Date / Time pollen extracts Allergy Unknown unknown Verified 04/21/22 14:56 latex Allergy Rash Verified 10/31/22 18:30 Assessment & Plan Assessment & Plan (1) Bipolar disorder, now depressed: Status: Acute Code(s): F31.30 - Bipolar disorder, current episode depressed, mild or moderate severity, unspecified (2) Cognitive impairment: Status: Acute Code(s): R41.89 - Other symptoms and signs involving cognitive functions and awareness Plan 82 year old male with history hyperlipidemia, tubular adenoma colon (last colonoscopy 12/21), BPH, chronic normocytic anemia, osteoarthritis shoulders and hips s/p b/l hip arthroplasty, chronic low back pain with lumbar stenosis, depression, hx rotator cuff tear, actinic keratosis, and atypical melanocytic hyperplasia admitted to geriatric psychiatry from [facility] with consult placed to medical hospitalist service for medical H&P. 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 Can use ibuprofen 600mg q6h prn as well if topical diclofenac unavailable. #Chronic left hip pain -per ED provider note at [facility], patient foot got stuck in a hole several months ago and fell onto the left hip. Subsequent imaging studies including x-ray of the hip/pelvis and CT of the pelvis are negative for fracture -Pain management as above -outpt follow up Pt refused physical extensive. Extensive review of prior note and records from [facility] conducted as noted above. Plan 1. The patient now has a guardian and we are trying to look for placement since he does not have a home for himself for social support in the community. 2. Continue with Zyprexa as a mood stabilizer. 3. Increase Lamictal up to 25 p.o. b.i.d. on December 17 to target dysphoria. Reason for continued inpatient stay Substantial Risk for: inability to function, rapid decompensation and med/psych decompensation Time Spent With Patient Time: Total time managing care of this patient today _20___ minutes.
[2022-12-19 18:00] VITALS: BP 139/74; PULSE 72; RESP 18; TEMP 36.5; O2SAT 97
[2022-12-19] MEDS: Donepezil HCl 10 MG TABLET PO (20:23)
[2022-12-19] MEDS: OLANZapine 10 MG TABLET PO (20:23)
[2022-12-19] MEDS: Milk of Magnesia 30 ML ORAL.SUSP PO (20:24)
[2022-12-20 07:30] VITALS: BP 122/66; PULSE 68; RESP 18; O2SAT 97
[2022-12-20] MEDS: Acetaminophen 325 MG TABLET 975 MG PO ×3 (08:40→20:36)
[2022-12-20] MEDS: Lidocaine 4 % Patch ADH..PATCH 1 PATCH TRANSDERMA (08:41)
[2022-12-20] MEDS: Memantine HCl 10 MG TABLET PO ×2 (08:41→20:37)
[2022-12-20] MEDS: lamoTRIgine 25 MG TABLET PO ×2 (08:41→20:37)
[2022-12-20 14:54] VITALS: BMI 28.0
--- NOTE | 2022-12-20 15:09 | P.PNPSI_ITS ---
Subjective Subjective Date of Service: 12/20/22 Reason For Visit: F31.9, F43.25 Subjective Notes: Section 7 and Section 8 Interim History: The nursing staff reported the patient had been compliant with treatment he has been more visible in the unit. On interview the patient denies new symptoms, waiting for placement. Mental Status Exam Mental Status Exam Patient Appearance: Well Grooomed and Appropriate Patient Orientation: Person and Situation Level of Consciousness: Awake and Appropriate Patient Behavior: Guarded and Passive Mood Description: Calm Affect Description: Blunted Patient Cognition Impaired: Yes Ability to Follow Directions: Good Speech Pattern: Clear Hallucinations: None Delusions: Not Present Thought Content: positive for [place] and positive for Poverty of Content Judgement: Poor Diagnostics Vital Signs (24Hr): Vital Signs - 24 hr 12/19/22 18:00 12/20/22 07:30 Temperature 97.7 F Pulse Rate 72 68 Respiratory Rate 18 18 Blood Pressure 139/74 122/66 Pulse Oximetry 97 97 Oxygen Delivery Method Room Air Room Air BMI result Body Mass Index 28.0 Labs 12/03/22 11:52 Medications Medications Current Medications Acetaminophen (Acetaminophen 325 Mg Tablet) 975 mg PO TID [facility] Last Admin: 12/20/22 08:40 Dose: 975 mg Al Hydroxide/Mg Hydroxide (Magnesium Hydrox/Alum Hydrox 30 Ml Oral.Susp) 30 ml PO Q6H PRN PRN Reason: Heartburn/Nausea Donepezil HCl (Donepezil Hcl 10 Mg Tablet) 10 mg PO BEDTIME [facility] Last Admin: 12/19/22 20:23 Dose: 10 mg Hydroxyzine HCl (Hydroxyzine Hcl 25 Mg Tablet) 25 mg PO Q6H PRN PRN Reason: Anxiety Last Admin: 12/08/22 02:30 Dose: 25 mg Lamotrigine (Lamotrigine 25 Mg Tablet) 25 mg PO BID [facility] Last Admin: 12/20/22 08:41 Dose: 25 mg Lidocaine (Lidocaine 4 % Patch Adh..Patch) 1 patch TRANSDERMA DAILY [facility]; Protocol Last Admin: 12/20/22 08:41 Dose: 1 patch Magnesium Hydroxide (Milk Of Magnesia 30 Ml Oral.Susp) 30 ml PO DAILY PRN PRN Reason: Constipation Last Admin: 12/19/22 20:24 Dose: 30 ml Memantine (Memantine Hcl 10 Mg Tablet) 10 mg PO BID [facility] Last Admin: 12/20/22 08:41 Dose: 10 mg Olanzapine (Olanzapine 2.5 Mg Tablet) 2.5 mg PO TID PRN PRN Reason: agitation Last Admin: 11/11/22 09:52 Dose: 2.5 mg Olanzapine (Olanzapine 10 Mg Tablet) 10 mg PO BEDTIME [facility] Last Admin: 12/19/22 20:23 Dose: 10 mg Trazodone HCl (Trazodone Hcl 50 Mg Tablet) 50 mg PO BEDTIME PRN PRN Reason: Insomnia Last Admin: 12/18/22 20:23 Dose: 50 mg Allergies Allergies Allergy/AdvReac Type Severity Reaction Status Date / Time pollen extracts Allergy Unknown unknown Verified 04/21/22 14:56 latex Allergy Rash Verified 10/31/22 18:30 Assessment & Plan Assessment & Plan (1) Bipolar disorder, now depressed: Status: Acute Code(s): F31.30 - Bipolar disorder, current episode depressed, mild or moderate severity, unspecified (2) Cognitive impairment: Status: Acute Code(s): R41.89 - Other symptoms and signs involving cognitive functions and awareness Plan 82 year old male with history hyperlipidemia, tubular adenoma colon (last colonoscopy 12/21), BPH, chronic normocytic anemia, osteoarthritis shoulders and hips s/p b/l hip arthroplasty, chronic low back pain with lumbar stenosis, depression, hx rotator cuff tear, actinic keratosis, and atypical melanocytic hyperplasia admitted to geriatric psychiatry from [facility] with consult placed to medical hospitalist service for medical H&P. 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 Can use ibuprofen 600mg q6h prn as well if topical diclofenac unavailable. #Chronic left hip pain -per ED provider note at [facility], patient foot got stuck in a hole several months ago and fell onto the left hip. Subsequent imaging studies including x-ray of the hip/pelvis and CT of the pelvis are negative for fracture -Pain management as above -outpt follow up Pt refused physical extensive. Extensive review of prior note and records from [facility] conducted as noted above. Plan 1. The patient now has a guardian and we are trying to look for placement since he does not have a home for himself for social support in the community. 2. Continue with Zyprexa as a mood stabilizer. 3. Increase Lamictal up to 25 p.o. b.i.d. on December 17 to target dysphoria. Reason for continued inpatient stay Substantial Risk for: inability to function, rapid decompensation and med/psych decompensation Time Spent With Patient Time: Total time managing care of this patient today _20___ minutes.
[2022-12-20 19:45] VITALS: BP 107/51; PULSE 65; RESP 15; TEMP 36.3; O2SAT 94
[2022-12-20] MEDS: OLANZapine 10 MG TABLET PO (20:37)
[2022-12-20] MEDS: Donepezil HCl 10 MG TABLET PO (20:37)
[2022-12-21 08:05] VITALS: BP 136/63; PULSE 70; RESP 16; TEMP 36.4; O2SAT 95
[2022-12-21] MEDS: lamoTRIgine 25 MG TABLET PO ×2 (08:22→20:08)
[2022-12-21] MEDS: Acetaminophen 325 MG TABLET 975 MG PO ×3 (08:23→20:06)
[2022-12-21] MEDS: Memantine HCl 10 MG TABLET PO ×2 (08:24→20:07)
[2022-12-21] MEDS: Lidocaine 4 % Patch ADH..PATCH 1 PATCH TRANSDERMA (08:25)
--- NOTE | 2022-12-21 14:25 | HO.PSYCHPN ---
Subjective Subjective Date of Service: 12/21/22 Reason For Visit: F31.9, F43.25 Subjective Notes: Section 7 and Section 8 Interim History: The nursing staff reported the patient remains with no changes in his mental status, he had been visible in the unit pleasantly confused. On interview the patient denies new symptoms, waiting for placement. Mental Status Exam Mental Status Exam Patient Appearance: Appropriate and Unkempt Patient Orientation: Person Level of Consciousness: Awake Patient Behavior: Guarded and Passive Mood Description: Withdrawn Affect Description: Constricted Patient Cognition Impaired: Yes Ability to Follow Directions: Good Speech Pattern: Clear Hallucinations: None Delusions: Not Present Thought Process: Distracted, Evasive and Slowed Thinking Thought Content: positive for [place] and positive for [place] of Content Judgement: Fair Diagnostics Vital Signs (24Hr): Vital Signs - 24 hr 12/20/22 19:45 12/21/22 08:05 Temperature 97.3 F 97.6 F Pulse Rate 65 70 Respiratory Rate 15 16 Blood Pressure 107/51 L 136/63 Pulse Oximetry 94 95 Oxygen Delivery Method Room Air Room Air BMI result Body Mass Index 28.0 Labs 12/03/22 11:52 Medications Medications Current Medications Acetaminophen (Acetaminophen 325 Mg Tablet) 975 mg PO TID [facility] Last Admin: 12/21/22 08:23 Dose: 975 mg Al Hydroxide/Mg Hydroxide (Magnesium Hydrox/Alum Hydrox 30 Ml Oral.Susp) 30 ml PO Q6H PRN PRN Reason: Heartburn/Nausea Donepezil HCl (Donepezil Hcl 10 Mg Tablet) 10 mg PO BEDTIME [facility] Last Admin: 12/20/22 20:37 Dose: 10 mg Hydroxyzine HCl (Hydroxyzine Hcl 25 Mg Tablet) 25 mg PO Q6H PRN PRN Reason: Anxiety Last Admin: 12/08/22 02:30 Dose: 25 mg Lamotrigine (Lamotrigine 25 Mg Tablet) 25 mg PO BID [facility] Last Admin: 12/21/22 08:22 Dose: 25 mg Lidocaine (Lidocaine 4 % Patch Adh..Patch) 1 patch TRANSDERMA DAILY [facility]; Protocol Last Admin: 12/21/22 08:25 Dose: 1 patch Magnesium Hydroxide (Milk Of Magnesia 30 Ml Oral.Susp) 30 ml PO DAILY PRN PRN Reason: Constipation Last Admin: 12/19/22 20:24 Dose: 30 ml Memantine (Memantine Hcl 10 Mg Tablet) 10 mg PO BID [facility] Last Admin: 12/21/22 08:24 Dose: 10 mg Olanzapine (Olanzapine 2.5 Mg Tablet) 2.5 mg PO TID PRN PRN Reason: agitation Last Admin: 11/11/22 09:52 Dose: 2.5 mg Olanzapine (Olanzapine 10 Mg Tablet) 10 mg PO BEDTIME [facility] Last Admin: 12/20/22 20:37 Dose: 10 mg Trazodone HCl (Trazodone Hcl 50 Mg Tablet) 50 mg PO BEDTIME PRN PRN Reason: Insomnia Last Admin: 12/18/22 20:23 Dose: 50 mg Allergies Allergies Allergy/AdvReac Type Severity Reaction Status Date / Time pollen extracts Allergy Unknown unknown Verified 04/21/22 14:56 latex Allergy Rash Verified 10/31/22 18:30 Assessment & Plan Assessment & Plan (1) Bipolar disorder, now depressed: Status: Acute Code(s): F31.30 - Bipolar disorder, current episode depressed, mild or moderate severity, unspecified (2) Cognitive impairment: Status: Acute Code(s): R41.89 - Other symptoms and signs involving cognitive functions and awareness Plan 82 year old male with history hyperlipidemia, tubular adenoma colon (last colonoscopy 12/21), BPH, chronic normocytic anemia, osteoarthritis shoulders and hips s/p b/l hip arthroplasty, chronic low back pain with lumbar stenosis, depression, hx rotator cuff tear, actinic keratosis, and atypical melanocytic hyperplasia admitted to geriatric psychiatry from [facility] with consult placed to medical hospitalist service for medical H&P. 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 Can use ibuprofen 600mg q6h prn as well if topical diclofenac unavailable. #Chronic left hip pain -per ED provider note at [facility], patient foot got stuck in a hole several months ago and fell onto the left hip. Subsequent imaging studies including x-ray of the hip/pelvis and CT of the pelvis are negative for fracture -Pain management as above -outpt follow up Pt refused physical extensive. Extensive review of prior note and records from [facility] conducted as noted above. Plan 1. The patient now has a guardian and we are trying to look for placement since he does not have a home for himself for social support in the community. 2. Continue with Zyprexa as a mood stabilizer. 3. Increase Lamictal up to 25 p.o. b.i.d. on December 17 to target dysphoria. Reason for continued inpatient stay Substantial Risk for: inability to function, rapid decompensation and med/psych decompensation Time Spent With Patient Time: Total time managing care of this patient today __20__ minutes.
[2022-12-21 18:00] VITALS: BP 143/73; PULSE 77; RESP 16; TEMP 36.1; O2SAT 95
[2022-12-21] MEDS: OLANZapine 10 MG TABLET PO (20:07)
[2022-12-21] MEDS: Donepezil HCl 10 MG TABLET PO (20:08)
--- NOTE | 2022-12-22 08:35 | HO.PSYCHPN ---
Subjective Subjective Date of Service: 12/22/22 Reason For Visit: F31.9, F43.25 Subjective Notes: Section 7 and Section 8 Interim History: The nursing staff reported the patient had been resting in his bed, compliant with treatment slept well. On interview the patient is pleasantly confused, waiting for placement. Mental Status Exam Mental Status Exam Patient Appearance: Appropriate Patient Orientation: Person and Situation Level of Consciousness: Awake and Appropriate Patient Behavior: Guarded and Passive Mood Description: Withdrawn Affect Description: Constricted Patient Cognition Impaired: Yes Ability to Follow Directions: Good Speech Pattern: Clear Hallucinations: None Delusions: Not Present Thought Process: Distracted Thought Content: positive for [place] and positive for Circumstantial Judgement: Fair Diagnostics Vital Signs (24Hr): Vital Signs - 24 hr 12/21/22 18:00 Temperature 96.9 F Pulse Rate 77 Respiratory Rate 16 Blood Pressure 143/73 H Pulse Oximetry 95 Oxygen Delivery Method Room Air BMI result Body Mass Index 28.0 Labs 12/03/22 11:52 Medications Medications Current Medications Acetaminophen (Acetaminophen 325 Mg Tablet) 975 mg PO TID [facility] Last Admin: 12/21/22 20:06 Dose: 975 mg Al Hydroxide/Mg Hydroxide (Magnesium Hydrox/Alum Hydrox 30 Ml Oral.Susp) 30 ml PO Q6H PRN PRN Reason: Heartburn/Nausea Donepezil HCl (Donepezil Hcl 10 Mg Tablet) 10 mg PO BEDTIME [facility] Last Admin: 12/21/22 20:08 Dose: 10 mg Hydroxyzine HCl (Hydroxyzine Hcl 25 Mg Tablet) 25 mg PO Q6H PRN PRN Reason: Anxiety Last Admin: 12/08/22 02:30 Dose: 25 mg Lamotrigine (Lamotrigine 25 Mg Tablet) 25 mg PO BID [facility] Last Admin: 12/21/22 20:08 Dose: 25 mg Lidocaine (Lidocaine 4 % Patch Adh..Patch) 1 patch TRANSDERMA DAILY [facility]; Protocol Last Admin: 12/21/22 08:25 Dose: 1 patch Magnesium Hydroxide (Milk Of Magnesia 30 Ml Oral.Susp) 30 ml PO DAILY PRN PRN Reason: Constipation Last Admin: 12/19/22 20:24 Dose: 30 ml Memantine (Memantine Hcl 10 Mg Tablet) 10 mg PO BID [facility] Last Admin: 12/21/22 20:07 Dose: 10 mg Olanzapine (Olanzapine 2.5 Mg Tablet) 2.5 mg PO TID PRN PRN Reason: agitation Last Admin: 11/11/22 09:52 Dose: 2.5 mg Olanzapine (Olanzapine 10 Mg Tablet) 10 mg PO BEDTIME [facility] Last Admin: 12/21/22 20:07 Dose: 10 mg Trazodone HCl (Trazodone Hcl 50 Mg Tablet) 50 mg PO BEDTIME PRN PRN Reason: Insomnia Last Admin: 12/18/22 20:23 Dose: 50 mg Allergies Allergies Allergy/AdvReac Type Severity Reaction Status Date / Time pollen extracts Allergy Unknown unknown Verified 04/21/22 14:56 latex Allergy Rash Verified 10/31/22 18:30 Assessment & Plan Assessment & Plan (1) Bipolar disorder, now depressed: Status: Acute Code(s): F31.30 - Bipolar disorder, current episode depressed, mild or moderate severity, unspecified (2) Cognitive impairment: Status: Acute Code(s): R41.89 - Other symptoms and signs involving cognitive functions and awareness Plan 82 year old male with history hyperlipidemia, tubular adenoma colon (last colonoscopy 12/21), BPH, chronic normocytic anemia, osteoarthritis shoulders and hips s/p b/l hip arthroplasty, 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 Can use ibuprofen 600mg q6h prn as well if topical diclofenac unavailable. #Chronic left hip pain -per ED provider note at [facility], patient foot got stuck in a hole several months ago and fell onto the left hip. Subsequent imaging studies including x-ray of the hip/pelvis and CT of the pelvis are negative for fracture -Pain management as above -outpt follow up Pt refused physical extensive. Extensive review of prior note and records from [facility] conducted as noted above. Plan 1. The patient now has a guardian and we are trying to look for placement since he does not have a home for himself for social support in the community. 2. Continue with Zyprexa as a mood stabilizer. 3. Increase Lamictal up to 25 p.o. b.i.d. on December 17 to target dysphoria. 4. Waiting for placement. Reason for continued inpatient stay Substantial Risk for: inability to function, rapid decompensation and med/psych decompensation Time Spent With Patient Time: Total time managing care of this patient today __20__ minutes.
[2022-12-22 08:44] VITALS: BP 133/78; PULSE 68; RESP 16; TEMP 36.8; O2SAT 96
[2022-12-22] MEDS: Memantine HCl 10 MG TABLET PO ×2 (08:49→20:01)
[2022-12-22] MEDS: Acetaminophen 325 MG TABLET 975 MG PO ×3 (08:49→20:00)
[2022-12-22] MEDS: Lidocaine 4 % Patch ADH..PATCH 1 PATCH TRANSDERMA (08:50)
[2022-12-22] MEDS: lamoTRIgine 25 MG TABLET PO ×2 (08:50→20:01)
[2022-12-22 18:00] VITALS: BP 103/62; PULSE 68; RESP 18; TEMP 36; O2SAT 95
[2022-12-22] MEDS: Donepezil HCl 10 MG TABLET PO (20:01)
[2022-12-22] MEDS: OLANZapine 10 MG TABLET PO (20:01)
[2022-12-23 08:20] VITALS: BP 145/99; PULSE 65; RESP 16; TEMP 36.6; O2SAT 95
[2022-12-23] MEDS: Acetaminophen 325 MG TABLET 975 MG PO ×3 (08:22→20:21)
[2022-12-23] MEDS: Lidocaine 4 % Patch ADH..PATCH 1 PATCH TRANSDERMA (08:24)
[2022-12-23] MEDS: lamoTRIgine 25 MG TABLET PO ×2 (08:24→20:22)
[2022-12-23] MEDS: Memantine HCl 10 MG TABLET PO ×2 (08:24→20:22)
--- NOTE | 2022-12-23 09:26 | HO.PSYCHPN ---
Subjective Subjective Date of Service: 12/23/22 Reason For Visit: F31.9, F43.25 Subjective Notes: Conditional Voluntary Interim History: The nursing staff reported the patient had been isolative most of the time in his room, sometimes his socialize with peers and staff. On interview the patient denies new symptoms, waiting for placement. Mental Status Exam Mental Status Exam Patient Appearance: Well Grooomed and Unkempt Patient Orientation: Person and Situation Level of Consciousness: Awake Patient Behavior: Guarded and Passive Mood Description: Withdrawn Affect Description: Constricted Patient Cognition Impaired: Yes Ability to Follow Directions: Good Speech Pattern: Clear Hallucinations: None Delusions: Not Present Thought Process: Distracted Thought Content: positive for [place] and positive for Circumstantial Judgement: Fair Diagnostics Vital Signs (24Hr): Vital Signs - 24 hr 12/22/22 18:00 12/23/22 08:20 Temperature 96.8 F 98 F Pulse Rate 68 65 Respiratory Rate 18 16 Blood Pressure 103/62 145/99 H Pulse Oximetry 95 95 Oxygen Delivery Method Room Air Room Air BMI result Body Mass Index 28.0 Labs 12/03/22 11:52 Medications Medications Current Medications Acetaminophen (Acetaminophen 325 Mg Tablet) 975 mg PO TID [facility] Last Admin: 12/23/22 08:22 Dose: 975 mg Al Hydroxide/Mg Hydroxide (Magnesium Hydrox/Alum Hydrox 30 Ml Oral.Susp) 30 ml PO Q6H PRN PRN Reason: Heartburn/Nausea Donepezil HCl (Donepezil Hcl 10 Mg Tablet) 10 mg PO BEDTIME [facility] Last Admin: 12/22/22 20:01 Dose: 10 mg Hydroxyzine HCl (Hydroxyzine Hcl 25 Mg Tablet) 25 mg PO Q6H PRN PRN Reason: Anxiety Last Admin: 12/08/22 02:30 Dose: 25 mg Lamotrigine (Lamotrigine 25 Mg Tablet) 25 mg PO BID [facility] Last Admin: 12/23/22 08:24 Dose: 25 mg Lidocaine (Lidocaine 4 % Patch Adh..Patch) 1 patch TRANSDERMA DAILY [facility]; Protocol Last Admin: 12/23/22 08:24 Dose: 1 patch Magnesium Hydroxide (Milk Of Magnesia 30 Ml Oral.Susp) 30 ml PO DAILY PRN PRN Reason: Constipation Last Admin: 12/19/22 20:24 Dose: 30 ml Memantine (Memantine Hcl 10 Mg Tablet) 10 mg PO BID [facility] Last Admin: 12/23/22 08:24 Dose: 10 mg Olanzapine (Olanzapine 2.5 Mg Tablet) 2.5 mg PO TID PRN PRN Reason: agitation Last Admin: 11/11/22 09:52 Dose: 2.5 mg Olanzapine (Olanzapine 10 Mg Tablet) 10 mg PO BEDTIME [facility] Last Admin: 12/22/22 20:01 Dose: 10 mg Trazodone HCl (Trazodone Hcl 50 Mg Tablet) 50 mg PO BEDTIME PRN PRN Reason: Insomnia Last Admin: 12/18/22 20:23 Dose: 50 mg Allergies Allergies Allergy/AdvReac Type Severity Reaction Status Date / Time pollen extracts Allergy Unknown unknown Verified 04/21/22 14:56 latex Allergy Rash Verified 10/31/22 18:30 Assessment & Plan Assessment & Plan (1) Bipolar disorder, now depressed: Status: Acute Code(s): F31.30 - Bipolar disorder, current episode depressed, mild or moderate severity, unspecified (2) Cognitive impairment: Status: Acute Code(s): R41.89 - Other symptoms and signs involving cognitive functions and awareness Plan 82 year old male with history hyperlipidemia, tubular adenoma colon (last colonoscopy 12/21), BPH, chronic normocytic anemia, osteoarthritis shoulders and hips s/p b/l hip arthroplasty, chronic low back pain with lumbar stenosis, depression, hx rotator cuff tear, actinic keratosis, and atypical melanocytic hyperplasia admitted to geriatric psychiatry from [facility] with consult placed to medical hospitalist service for medical H&P. 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 Can use ibuprofen 600mg q6h prn as well if topical diclofenac unavailable. #Chronic left hip pain -per ED provider note at [facility], patient foot got stuck in a hole several months ago and fell onto the left hip. Subsequent imaging studies including x-ray of the hip/pelvis and CT of the pelvis are negative for fracture -Pain management as above -outpt follow up Pt refused physical extensive. Extensive review of prior note and records from [facility] conducted as noted above. Plan 1. The patient now has a guardian and we are trying to look for placement since he does not have a home for himself for social support in the community. 2. Continue with Zyprexa as a mood stabilizer. 3. Increase Lamictal up to 25 p.o. b.i.d. on December 17 to target dysphoria. 4. Waiting for placement. Reason for continued inpatient stay Substantial Risk for: inability to function, rapid decompensation and med/psych decompensation Time Spent With Patient Time: Total time managing care of this patient today __20__ minutes.
[2022-12-23 18:00] VITALS: BP 124/76; PULSE 66; RESP 18; TEMP 36; O2SAT 94
[2022-12-23] MEDS: Donepezil HCl 10 MG TABLET PO (20:21)
[2022-12-23] MEDS: OLANZapine 10 MG TABLET PO (20:22)
[2022-12-24 09:00] VITALS: BP 132/70; PULSE 70; RESP 18; TEMP 36.3; O2SAT 96
[2022-12-24] MEDS: Acetaminophen 325 MG TABLET 975 MG PO ×3 (09:12→20:52)
[2022-12-24] MEDS: lamoTRIgine 25 MG TABLET PO ×2 (09:12→20:52)
[2022-12-24] MEDS: Lidocaine 4 % Patch ADH..PATCH 1 PATCH TRANSDERMA (09:13)
[2022-12-24] MEDS: Memantine HCl 10 MG TABLET PO ×2 (09:13→20:52)
[2022-12-24] MEDS: Milk of Magnesia 30 ML ORAL.SUSP PO (09:15)
[2022-12-24] MEDS: bisacodyL 10 MG SUPP.RECT PR (10:32)
--- NOTE | 2022-12-24 12:15 | P.PNPSI_ITS ---
Subjective Subjective Date of Service: 12/24/22 Reason For Visit: F31.9, F43.25 Subjective Notes: Section 7 and Section 8 Interim History: The nursing staff reported no changes in his mental status, compliant with treatment. On interview the patient denies new symptoms, waiting for placement. Mental Status Exam Mental Status Exam Patient Appearance: Unkempt Patient Orientation: Person and Situation Level of Consciousness: Awake Patient Behavior: Guarded and Passive Mood Description: Withdrawn Affect Description: Constricted Patient Cognition Impaired: Yes Ability to Follow Directions: Good Speech Pattern: Clear Hallucinations: None Delusions: Not Present Thought Process: Distracted Thought Content: positive for [place] and positive for Circumstantial Judgement: Poor Diagnostics Vital Signs (24Hr): Vital Signs - 24 hr 12/23/22 18:00 12/24/22 09:00 Temperature 96.8 F 97.4 F Pulse Rate 66 70 Respiratory Rate 18 18 Blood Pressure 124/76 132/70 Pulse Oximetry 94 96 Oxygen Delivery Method Room Air Room Air BMI result Body Mass Index 28.0 Labs 12/03/22 11:52 Medications Medications Current Medications Acetaminophen (Acetaminophen 325 Mg Tablet) 975 mg PO TID [facility] Last Admin: 12/24/22 09:12 Dose: 975 mg Al Hydroxide/Mg Hydroxide (Magnesium Hydrox/Alum Hydrox 30 Ml Oral.Susp) 30 ml PO Q6H PRN PRN Reason: Heartburn/Nausea Donepezil HCl (Donepezil Hcl 10 Mg Tablet) 10 mg PO BEDTIME [facility] Last Admin: 12/23/22 20:21 Dose: 10 mg Hydroxyzine HCl (Hydroxyzine Hcl 25 Mg Tablet) 25 mg PO Q6H PRN PRN Reason: Anxiety Last Admin: 12/08/22 02:30 Dose: 25 mg Lamotrigine (Lamotrigine 25 Mg Tablet) 25 mg PO BID [facility] Last Admin: 12/24/22 09:12 Dose: 25 mg Lidocaine (Lidocaine 4 % Patch Adh..Patch) 1 patch TRANSDERMA DAILY [facility]; Protocol Last Admin: 12/24/22 09:13 Dose: 1 patch Magnesium Hydroxide (Milk Of Magnesia 30 Ml Oral.Susp) 30 ml PO DAILY PRN PRN Reason: Constipation Last Admin: 12/24/22 09:15 Dose: 30 ml Memantine (Memantine Hcl 10 Mg Tablet) 10 mg PO BID [facility] Last Admin: 12/24/22 09:13 Dose: 10 mg Olanzapine (Olanzapine 2.5 Mg Tablet) 2.5 mg PO TID PRN PRN Reason: agitation Last Admin: 11/11/22 09:52 Dose: 2.5 mg Olanzapine (Olanzapine 10 Mg Tablet) 10 mg PO BEDTIME [facility] Last Admin: 12/23/22 20:22 Dose: 10 mg Trazodone HCl (Trazodone Hcl 50 Mg Tablet) 50 mg PO BEDTIME PRN PRN Reason: Insomnia Last Admin: 12/18/22 20:23 Dose: 50 mg Allergies Allergies Allergy/AdvReac Type Severity Reaction Status Date / Time pollen extracts Allergy Unknown unknown Verified 04/21/22 14:56 latex Allergy Rash Verified 10/31/22 18:30 Assessment & Plan Assessment & Plan (1) Bipolar disorder, now depressed: Status: Acute Code(s): F31.30 - Bipolar disorder, current episode depressed, mild or moderate severity, unspecified (2) Cognitive impairment: Status: Acute Code(s): R41.89 - Other symptoms and signs involving cognitive functions and awareness Plan 82 year old male with history hyperlipidemia, tubular adenoma colon (last colonoscopy 12/21), BPH, chronic normocytic anemia, osteoarthritis shoulders and hips s/p b/l hip arthroplasty, chronic low back pain with lumbar stenosis, depression, hx rotator cuff tear, actinic keratosis, and atypical melanocytic hyperplasia admitted to geriatric psychiatry from [facility] with consult placed to medical hospitalist service for medical H&P. 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 Can use ibuprofen 600mg q6h prn as well if topical diclofenac unavailable. #Chronic left hip pain -per ED provider note at [facility], patient foot got stuck in a hole several months ago and fell onto the left hip. Subsequent imaging studies including x-ray of the hip/pelvis and CT of the pelvis are negative for fracture -Pain management as above -outpt follow up Pt refused physical extensive. Extensive review of prior note and records from [facility] conducted as noted above. Plan 1. The patient now has a guardian and we are trying to look for placement since he does not have a home for himself for social support in the community. 2. Continue with Zyprexa as a mood stabilizer. 3. Increase Lamictal up to 25 p.o. b.i.d. on December 17 to target dysphoria. 4. Waiting for placement. Reason for continued inpatient stay Substantial Risk for: inability to function, rapid decompensation and med/psych decompensation Time Spent With Patient Time: Total time managing care of this patient today __20__ minutes.
[2022-12-24 18:00] VITALS: BP 91/53; PULSE 70; RESP 18; TEMP 36.2; O2SAT 94
[2022-12-24] MEDS: Donepezil HCl 10 MG TABLET PO (20:52)
[2022-12-24] MEDS: OLANZapine 10 MG TABLET PO (20:52)
--- NOTE | 2022-12-25 09:56 | P.PNPSI_ITS ---
Subjective Subjective Date of Service: 12/25/22 Reason For Visit: F31.9, F43.25 Subjective Notes: Section 7 and Section 8 Interim History: The nursing staff reported no changes in his mental status, he is eating and sleeping well at night. On interview the patient denies new symptoms, waiting for placement. Mental Status Exam Mental Status Exam Patient Appearance: Appropriate and Unkempt Patient Orientation: Person and Situation Level of Consciousness: Awake and Appropriate Patient Behavior: Guarded and Passive Mood Description: Withdrawn Affect Description: Constricted Patient Cognition Impaired: Yes Ability to Follow Directions: Good Speech Pattern: Clear Hallucinations: None Delusions: Not Present Thought Process: Distracted and Evasive Thought Content: positive for [place], positive for [place]um[place] and positive for Poverty of Content Judgement: Poor Diagnostics Vital Signs (24Hr): Vital Signs - 24 hr 12/24/22 18:00 Temperature 97.1 F Pulse Rate 70 Respiratory Rate 18 Blood Pressure 91/53 L Pulse Oximetry 94 Oxygen Delivery Method Room Air BMI result Body Mass Index 28.0 Labs 12/03/22 11:52 Medications Medications Current Medications Acetaminophen (Acetaminophen 325 Mg Tablet) 975 mg PO TID [facility] Last Admin: 12/24/22 20:52 Dose: 975 mg Al Hydroxide/Mg Hydroxide (Magnesium Hydrox/Alum Hydrox 30 Ml Oral.Susp) 30 ml PO Q6H PRN PRN Reason: Heartburn/Nausea Donepezil HCl (Donepezil Hcl 10 Mg Tablet) 10 mg PO BEDTIME [facility] Last Admin: 12/24/22 20:52 Dose: 10 mg Hydroxyzine HCl (Hydroxyzine Hcl 25 Mg Tablet) 25 mg PO Q6H PRN PRN Reason: Anxiety Last Admin: 12/08/22 02:30 Dose: 25 mg Lamotrigine (Lamotrigine 25 Mg Tablet) 25 mg PO BID [facility] Last Admin: 12/24/22 20:52 Dose: 25 mg Lidocaine (Lidocaine 4 % Patch Adh..Patch) 1 patch TRANSDERMA DAILY [facility]; Protocol Last Admin: 12/24/22 09:13 Dose: 1 patch Magnesium Hydroxide (Milk Of Magnesia 30 Ml Oral.Susp) 30 ml PO DAILY PRN PRN Reason: Constipation Last Admin: 12/24/22 09:15 Dose: 30 ml Memantine (Memantine Hcl 10 Mg Tablet) 10 mg PO BID [facility] Last Admin: 12/24/22 20:52 Dose: 10 mg Olanzapine (Olanzapine 2.5 Mg Tablet) 2.5 mg PO TID PRN PRN Reason: agitation Last Admin: 11/11/22 09:52 Dose: 2.5 mg Olanzapine (Olanzapine 10 Mg Tablet) 10 mg PO BEDTIME [facility] Last Admin: 12/24/22 20:52 Dose: 10 mg Trazodone HCl (Trazodone Hcl 50 Mg Tablet) 50 mg PO BEDTIME PRN PRN Reason: Insomnia Last Admin: 12/18/22 20:23 Dose: 50 mg Allergies Allergies Allergy/AdvReac Type Severity Reaction Status Date / Time pollen extracts Allergy Unknown unknown Verified 04/21/22 14:56 latex Allergy Rash Verified 10/31/22 18:30 Assessment & Plan Assessment & Plan (1) Bipolar disorder, now depressed: Status: Acute Code(s): F31.30 - Bipolar disorder, current episode depressed, mild or moderate severity, unspecified (2) Cognitive impairment: Status: Acute Code(s): R41.89 - Other symptoms and signs involving cognitive functions and awareness Plan 82 year old male with history hyperlipidemia, tubular adenoma colon (last colonoscopy 12/21), BPH, chronic normocytic anemia, osteoarthritis shoulders and hips s/p b/l hip arthroplasty, 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 Can use ibuprofen 600mg q6h prn as well if topical diclofenac unavailable. #Chronic left hip pain -per ED provider note at [facility], patient foot got stuck in a hole several months ago and fell onto the left hip. Subsequent imaging studies including x-ray of the hip/pelvis and CT of the pelvis are negative for fracture -Pain management as above -outpt follow up Pt refused physical extensive. Extensive review of prior note and records from [facility] conducted as noted above. Plan 1. The patient now has a guardian and we are trying to look for placement since he does not have a home for himself for social support in the community. 2. Continue with Zyprexa as a mood stabilizer. 3. Increase Lamictal up to 25 p.o. b.i.d. on December 17 to target dysphoria. 4. Waiting for placement. Reason for continued inpatient stay Substantial Risk for: inability to function, rapid decompensation and med/psych decompensation Time Spent With Patient Time: Total time managing care of this patient today __20__ minutes.
[2022-12-25 09:58] VITALS: BP 138/87; PULSE 79; RESP 16; TEMP 36.8; O2SAT 98
[2022-12-25] MEDS: Acetaminophen 325 MG TABLET 975 MG PO ×2 (10:01→20:37)
[2022-12-25] MEDS: Memantine HCl 10 MG TABLET PO ×2 (10:01→20:37)
[2022-12-25] MEDS: lamoTRIgine 25 MG TABLET PO ×2 (10:01→20:37)
[2022-12-25] MEDS: Lidocaine 4 % Patch ADH..PATCH 1 PATCH TRANSDERMA (10:02)
[2022-12-25] MEDS: OLANZapine 2.5 MG TABLET PO (20:37)
[2022-12-25] MEDS: OLANZapine 10 MG TABLET PO (20:37)
[2022-12-25] MEDS: traZODone HCL 50 MG TABLET PO (20:37)
[2022-12-25] MEDS: Donepezil HCl 10 MG TABLET PO (20:37)
[2022-12-25 21:03] VITALS: BP 116/66; PULSE 63; RESP 20; O2SAT 95
[2022-12-26 06:00] VITALS: BP 122/68; PULSE 66; RESP 18; TEMP 36.6; O2SAT 95
[2022-12-26] MEDS: Milk of Magnesia 30 ML ORAL.SUSP PO (08:54)
[2022-12-26] MEDS: Lidocaine 4 % Patch ADH..PATCH 1 PATCH TRANSDERMA (08:54)
[2022-12-26] MEDS: Acetaminophen 325 MG TABLET 975 MG PO ×3 (08:55→20:05)
[2022-12-26] MEDS: lamoTRIgine 25 MG TABLET PO ×2 (08:56→20:08)
[2022-12-26] MEDS: Memantine HCl 10 MG TABLET PO ×2 (08:56→20:06)
--- NOTE | 2022-12-26 14:42 | P.PNPSI_ITS ---
Subjective Subjective Date of Service: 12/26/22 Reason For Visit: F31.9, F43.25 Subjective Notes: Section 7 and Section 8 Interim History: The nursing staff reported no changes in his mental status, waiting for placement. On interview the patient remains in his room no changes in mental status Mental Status Exam Mental Status Exam Patient Appearance: Appropriate and Unkempt Patient Orientation: Person Level of Consciousness: Awake Patient Behavior: Guarded and Passive Mood Description: Withdrawn Affect Description: Constricted Patient Cognition Impaired: Yes Ability to Follow Directions: Good Speech Pattern: Clear Hallucinations: None Delusions: Ideas of Reference Thought Process: Distracted and Slowed Thinking Thought Content: positive for [place] and positive for Poverty of Content Judgement: Poor Diagnostics Vital Signs (24Hr): Vital Signs - 24 hr 12/25/22 21:03 12/26/22 06:00 Temperature 97.8 F Pulse Rate 63 66 Respiratory Rate 20 18 Blood Pressure 116/66 122/68 Pulse Oximetry 95 95 Oxygen Delivery Method Room Air Room Air BMI result Body Mass Index 28.0 Labs 12/03/22 11:52 Medications Medications Current Medications Acetaminophen (Acetaminophen 325 Mg Tablet) 975 mg PO TID [facility] Last Admin: 12/26/22 08:55 Dose: 975 mg Al Hydroxide/Mg Hydroxide (Magnesium Hydrox/Alum Hydrox 30 Ml Oral.Susp) 30 ml PO Q6H PRN PRN Reason: Heartburn/Nausea Donepezil HCl (Donepezil Hcl 10 Mg Tablet) 10 mg PO BEDTIME [facility] Last Admin: 12/25/22 20:37 Dose: 10 mg Hydroxyzine HCl (Hydroxyzine Hcl 25 Mg Tablet) 25 mg PO Q6H PRN PRN Reason: Anxiety Last Admin: 12/08/22 02:30 Dose: 25 mg Lamotrigine (Lamotrigine 25 Mg Tablet) 25 mg PO BID [facility] Last Admin: 12/26/22 08:56 Dose: 25 mg Lidocaine (Lidocaine 4 % Patch Adh..Patch) 1 patch TRANSDERMA DAILY [facility]; Protocol Last Admin: 12/26/22 08:54 Dose: 1 patch Magnesium Hydroxide (Milk Of Magnesia 30 Ml Oral.Susp) 30 ml PO DAILY PRN PRN Reason: Constipation Last Admin: 12/26/22 08:54 Dose: 30 ml Memantine (Memantine Hcl 10 Mg Tablet) 10 mg PO BID [facility] Last Admin: 12/26/22 08:56 Dose: 10 mg Olanzapine (Olanzapine 2.5 Mg Tablet) 2.5 mg PO TID PRN PRN Reason: agitation Last Admin: 12/25/22 20:37 Dose: 2.5 mg Olanzapine (Olanzapine 10 Mg Tablet) 10 mg PO BEDTIME [facility] Last Admin: 12/25/22 20:37 Dose: 10 mg Trazodone HCl (Trazodone Hcl 50 Mg Tablet) 50 mg PO BEDTIME PRN PRN Reason: Insomnia Last Admin: 12/25/22 20:37 Dose: 50 mg Allergies Allergies Allergy/AdvReac Type Severity Reaction Status Date / Time pollen extracts Allergy Unknown unknown Verified 04/21/22 14:56 latex Allergy Rash Verified 10/31/22 18:30 Assessment & Plan Assessment & Plan (1) Bipolar disorder, now depressed: Status: Acute Code(s): F31.30 - Bipolar disorder, current episode depressed, mild or moderate severity, unspecified (2) Cognitive impairment: Status: Acute Code(s): R41.89 - Other symptoms and signs involving cognitive functions and awareness Plan 82 year old male with history hyperlipidemia, tubular adenoma colon (last colonoscopy 12/21), BPH, chronic normocytic anemia, osteoarthritis shoulders and hips s/p b/l hip arthroplasty, 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 Can use ibuprofen 600mg q6h prn as well if topical diclofenac unavailable. #Chronic left hip pain -per ED provider note at [facility], patient foot got stuck in a hole several months ago and fell onto the left hip. Subsequent imaging studies including x-ray of the hip/pelvis and CT of the pelvis are negative for fracture -Pain management as above -outpt follow up Pt refused physical extensive. Extensive review of prior note and records from [facility] conducted as noted above. Plan 1. The patient now has a guardian and we are trying to look for placement since he does not have a home for himself for social support in the community. 2. Continue with Zyprexa as a mood stabilizer. 3. Increase Lamictal up to 25 p.o. b.i.d. on December 17 to target dysphoria. 4. Waiting for placement. Reason for continued inpatient stay Substantial Risk for: inability to function, rapid decompensation and med/psych decompensation Time Spent With Patient Time: Total time managing care of this patient today __20__ minutes.
[2022-12-26 18:00] VITALS: BP 90/51; PULSE 52; RESP 17; TEMP 35.9; O2SAT 95
[2022-12-26] MEDS: OLANZapine 10 MG TABLET PO (20:06)
[2022-12-26] MEDS: Donepezil HCl 10 MG TABLET PO (20:07)
[2022-12-26] MEDS: hydrOXYzine HCL 25 MG TABLET PO (20:07)
[2022-12-26] MEDS: traZODone HCL 50 MG TABLET PO (20:08)
[2022-12-26 23:45] VITALS: BP 114/62; PULSE 66; RESP 16
[2022-12-27] MEDS: lamoTRIgine 25 MG TABLET PO ×2 (08:41→20:55)
[2022-12-27] MEDS: Acetaminophen 325 MG TABLET 975 MG PO ×2 (08:41→20:54)
[2022-12-27] MEDS: Memantine HCl 10 MG TABLET PO ×2 (08:41→20:56)
[2022-12-27 08:48] VITALS: BP 120/63; PULSE 69; RESP 16; TEMP 36; O2SAT 95
[2022-12-27 12:15] VITALS: BMI 27.8
--- NOTE | 2022-12-27 15:33 | P.PNPSI_ITS ---
Subjective Subjective Date of Service: 12/27/22 Reason For Visit: F31.9, F43.25 Subjective Notes: Conditional Voluntary Interim History: The nursing staff reported the patient had been compliant with treatment, he denies new symptoms. On interview the patient ask about disposition and explained him that we are still waiting for placement. Mental Status Exam Mental Status Exam Patient Appearance: Well Grooomed and Appropriate Patient Orientation: Person and Situation Level of Consciousness: Awake and Appropriate Patient Behavior: Guarded and Passive Mood Description: Withdrawn Affect Description: Constricted Patient Cognition Impaired: Yes Ability to Follow Directions: Good Speech Pattern: Clear Hallucinations: None Delusions: Not Present Thought Process: Linear Thought Content: positive for [place]um[place] Judgement: Fair Diagnostics Vital Signs (24Hr): Vital Signs - 24 hr 12/26/22 18:00 12/26/22 23:45 12/27/22 08:48 Temperature 96.6 F L 96.8 F Pulse Rate 52 66 69 Respiratory Rate 17 16 16 Blood Pressure 90/51 L 114/62 120/63 Pulse Oximetry 95 95 Oxygen Delivery Method Room Air Room Air BMI result Body Mass Index 27.8 Labs 12/03/22 11:52 Medications Medications Current Medications Acetaminophen (Acetaminophen 325 Mg Tablet) 975 mg PO TID [facility] Last Admin: 12/27/22 08:41 Dose: 975 mg Al Hydroxide/Mg Hydroxide (Magnesium Hydrox/Alum Hydrox 30 Ml Oral.Susp) 30 ml PO Q6H PRN PRN Reason: Heartburn/Nausea Donepezil HCl (Donepezil Hcl 10 Mg Tablet) 10 mg PO BEDTIME [facility] Last Admin: 12/26/22 20:07 Dose: 10 mg Hydroxyzine HCl (Hydroxyzine Hcl 25 Mg Tablet) 25 mg PO Q6H PRN PRN Reason: Anxiety Last Admin: 12/26/22 20:07 Dose: 25 mg Lamotrigine (Lamotrigine 25 Mg Tablet) 25 mg PO BID [facility] Last Admin: 12/27/22 08:41 Dose: 25 mg Lidocaine (Lidocaine 4 % Patch Adh..Patch) 1 patch TRANSDERMA DAILY [facility]; Protocol Last Admin: 12/27/22 08:44 Dose: Not Given Magnesium Hydroxide (Milk Of Magnesia 30 Ml Oral.Susp) 30 ml PO DAILY PRN PRN Reason: Constipation Last Admin: 12/26/22 08:54 Dose: 30 ml Memantine (Memantine Hcl 10 Mg Tablet) 10 mg PO BID [facility] Last Admin: 12/27/22 08:41 Dose: 10 mg Olanzapine (Olanzapine 2.5 Mg Tablet) 2.5 mg PO TID PRN PRN Reason: agitation Last Admin: 12/25/22 20:37 Dose: 2.5 mg Olanzapine (Olanzapine 10 Mg Tablet) 10 mg PO BEDTIME [facility] Last Admin: 12/26/22 20:06 Dose: 10 mg Trazodone HCl (Trazodone Hcl 50 Mg Tablet) 50 mg PO BEDTIME PRN PRN Reason: Insomnia Last Admin: 12/26/22 20:08 Dose: 50 mg Allergies Allergies Allergy/AdvReac Type Severity Reaction Status Date / Time pollen extracts Allergy Unknown unknown Verified 04/21/22 14:56 latex Allergy Rash Verified 10/31/22 18:30 Assessment & Plan Assessment & Plan (1) Bipolar disorder, now depressed: Status: Acute Code(s): F31.30 - Bipolar disorder, current episode depressed, mild or moderate severity, unspecified (2) Cognitive impairment: Status: Acute Code(s): R41.89 - Other symptoms and signs involving cognitive functions and awareness Plan 82 year old male with history hyperlipidemia, tubular adenoma colon (last colonoscopy 12/21), BPH, chronic normocytic anemia, osteoarthritis shoulders and hips s/p b/l hip arthroplasty, chronic low back pain with lumbar stenosis, depression, hx rotator cuff tear, actinic keratosis, and atypical melanocytic hyperplasia admitted to geriatric psychiatry from [facility] with consult placed to medical hospitalist service for medical H&P. 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 Can use ibuprofen 600mg q6h prn as well if topical diclofenac unavailable. #Chronic left hip pain -per ED provider note at [facility], patient foot got stuck in a hole several months ago and fell onto the left hip. Subsequent imaging studies including x-ray of the hip/pelvis and CT of the pelvis are negative for fracture -Pain management as above -outpt follow up Pt refused physical extensive. Extensive review of prior note and records from [facility] conducted as noted above. Plan 1. The patient now has a guardian and we are trying to look for placement since he does not have a home for himself for social support in the community. 2. Continue with Zyprexa as a mood stabilizer. 3. Increase Lamictal up to 25 p.o. b.i.d. on December 17 to target dysphoria. 4. Waiting for placement. Reason for continued inpatient stay Substantial Risk for: inability to function, rapid decompensation and med/psych decompensation Time Spent With Patient Time: Total time managing care of this patient today __20__ minutes.
[2022-12-27 18:00] VITALS: BP 112/63; PULSE 68; RESP 16; TEMP 36.1; O2SAT 93
[2022-12-27] MEDS: OLANZapine 10 MG TABLET PO (20:56)
[2022-12-27] MEDS: Donepezil HCl 10 MG TABLET PO (20:56)
[2022-12-27] MEDS: traZODone HCL 50 MG TABLET PO (20:56)
[2022-12-28 09:31] VITALS: BP 118/69; PULSE 64; RESP 18; TEMP 36.2; O2SAT 95
[2022-12-28] MEDS: Memantine HCl 10 MG TABLET PO ×2 (10:10→20:53)
[2022-12-28] MEDS: lamoTRIgine 25 MG TABLET PO ×2 (10:10→20:53)
[2022-12-28] MEDS: Acetaminophen 325 MG TABLET 975 MG PO ×2 (10:10→20:53)
[2022-12-28] MEDS: Lidocaine 4 % Patch ADH..PATCH 1 PATCH TRANSDERMA (10:10)
--- NOTE | 2022-12-28 13:32 | HO.PSYCHPN ---
Subjective Subjective Date of Service: 12/28/22 Reason For Visit: F31.9, F43.25 Subjective Notes: Section 7 and Section 8 Interim History: The nursing staff reported no changes in his mental status. On interview the patient denies new symptoms, waiting for placement. Mental Status Exam Mental Status Exam Patient Appearance: Appropriate Patient Orientation: Person and Situation Level of Consciousness: Awake and Appropriate Patient Behavior: Guarded and Passive Mood Description: Withdrawn Affect Description: Constricted Patient Cognition Impaired: Yes Ability to Follow Directions: Good Speech Pattern: Clear Hallucinations: None Delusions: Not Present Thought Process: Distracted and Evasive Thought Content: positive for [place] and positive for Poverty of Content Judgement: Poor Diagnostics Vital Signs (24Hr): Vital Signs - 24 hr 12/27/22 18:00 12/28/22 09:31 Temperature 96.9 F 97.2 F Pulse Rate 68 64 Respiratory Rate 16 18 Blood Pressure 112/63 118/69 Pulse Oximetry 93 95 Oxygen Delivery Method Room Air Room Air BMI result Body Mass Index 27.8 Labs 12/03/22 11:52 Medications Medications Current Medications Acetaminophen (Acetaminophen 325 Mg Tablet) 975 mg PO TID [facility] Last Admin: 12/28/22 10:10 Dose: 975 mg Al Hydroxide/Mg Hydroxide (Magnesium Hydrox/Alum Hydrox 30 Ml Oral.Susp) 30 ml PO Q6H PRN PRN Reason: Heartburn/Nausea Donepezil HCl (Donepezil Hcl 10 Mg Tablet) 10 mg PO BEDTIME [facility] Last Admin: 12/27/22 20:56 Dose: 10 mg Hydroxyzine HCl (Hydroxyzine Hcl 25 Mg Tablet) 25 mg PO Q6H PRN PRN Reason: Anxiety Last Admin: 12/26/22 20:07 Dose: 25 mg Lamotrigine (Lamotrigine 25 Mg Tablet) 25 mg PO BID [facility] Last Admin: 12/28/22 10:10 Dose: 25 mg Lidocaine (Lidocaine 4 % Patch Adh..Patch) 1 patch TRANSDERMA DAILY [facility]; Protocol Last Admin: 12/28/22 10:10 Dose: 1 patch Magnesium Hydroxide (Milk Of Magnesia 30 Ml Oral.Susp) 30 ml PO DAILY PRN PRN Reason: Constipation Last Admin: 12/26/22 08:54 Dose: 30 ml Memantine (Memantine Hcl 10 Mg Tablet) 10 mg PO BID [facility] Last Admin: 12/28/22 10:10 Dose: 10 mg Olanzapine (Olanzapine 2.5 Mg Tablet) 2.5 mg PO TID PRN PRN Reason: agitation Last Admin: 12/25/22 20:37 Dose: 2.5 mg Olanzapine (Olanzapine 10 Mg Tablet) 10 mg PO BEDTIME [facility] Last Admin: 12/27/22 20:56 Dose: 10 mg Trazodone HCl (Trazodone Hcl 50 Mg Tablet) 50 mg PO BEDTIME PRN PRN Reason: Insomnia Last Admin: 12/27/22 20:56 Dose: 50 mg Allergies Allergies Allergy/AdvReac Type Severity Reaction Status Date / Time pollen extracts Allergy Unknown unknown Verified 04/21/22 14:56 latex Allergy Rash Verified 10/31/22 18:30 Assessment & Plan Assessment & Plan (1) Bipolar disorder, now depressed: Status: Acute Code(s): F31.30 - Bipolar disorder, current episode depressed, mild or moderate severity, unspecified (2) Cognitive impairment: Status: Acute Code(s): R41.89 - Other symptoms and signs involving cognitive functions and awareness Plan 82 year old male with history hyperlipidemia, tubular adenoma colon (last colonoscopy 12/21), BPH, chronic normocytic anemia, osteoarthritis shoulders and hips s/p b/l hip arthroplasty, chronic low back pain with lumbar stenosis, depression, hx rotator cuff tear, actinic keratosis, and atypical melanocytic hyperplasia admitted to geriatric psychiatry from [facility] with consult placed to medical hospitalist service for medical H&P. 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 Can use ibuprofen 600mg q6h prn as well if topical diclofenac unavailable. #Chronic left hip pain -per ED provider note at [facility], patient foot got stuck in a hole several months ago and fell onto the left hip. Subsequent imaging studies including x-ray of the hip/pelvis and CT of the pelvis are negative for fracture -Pain management as above -outpt follow up Pt refused physical extensive. Extensive review of prior note and records from [facility] conducted as noted above. Plan 1. The patient now has a guardian and we are trying to look for placement since he does not have a home for himself for social support in the community. 2. Continue with Zyprexa as a mood stabilizer. 3. Increase Lamictal up to 25 p.o. b.i.d. on December 17 to target dysphoria. 4. Waiting for placement. Reason for continued inpatient stay Substantial Risk for: inability to function, rapid decompensation and med/psych decompensation Time Spent With Patient Time: Total time managing care of this patient today _20___ minutes.
[2022-12-28 18:00] VITALS: BP 98/55; PULSE 61; RESP 16; TEMP 36.3; O2SAT 96
[2022-12-28] MEDS: Donepezil HCl 10 MG TABLET PO (20:53)
[2022-12-28] MEDS: OLANZapine 10 MG TABLET PO (20:53)
[2022-12-29 08:05] VITALS: BP 166/87; PULSE 68; RESP 17; TEMP 36.3; O2SAT 94
[2022-12-29] MEDS: Lidocaine 4 % Patch ADH..PATCH 1 PATCH TRANSDERMA (09:01)
[2022-12-29] MEDS: lamoTRIgine 25 MG TABLET PO ×2 (09:01→20:45)
[2022-12-29] MEDS: Memantine HCl 10 MG TABLET PO ×2 (09:01→20:45)
[2022-12-29] MEDS: Acetaminophen 325 MG TABLET 975 MG PO ×3 (09:01→20:45)
--- NOTE | 2022-12-29 12:18 | P.PNPSI_ITS ---
Subjective Subjective Date of Service: 12/29/22 Reason For Visit: F31.9, F43.25 Interim History: c/o back pain. per staff, chronic back pain. taking meds. eating, slept well. Mental Status Exam Mental Status Exam Patient Appearance: Appropriate Patient Orientation: Person and Situation Level of Consciousness: Awake and Appropriate Patient Behavior: Guarded and Passive Mood Description: Withdrawn Affect Description: Constricted Patient Cognition Impaired: Yes Ability to Follow Directions: Good Speech Pattern: Clear Hallucinations: None Delusions: Not Present Thought Process: Distracted and Evasive Thought Content: positive for [place] and positive for Poverty of Content Judgement: Poor Diagnostics Vital Signs (24Hr): Vital Signs - 24 hr 12/28/22 18:00 12/29/22 08:05 Temperature 97.4 F 97.4 F Pulse Rate 61 68 Respiratory Rate 16 17 Blood Pressure 98/55 L 166/87 H Pulse Oximetry 96 94 Oxygen Delivery Method Room Air Room Air BMI result Body Mass Index 27.8 Labs 12/03/22 11:52 Medications Medications Current Medications Acetaminophen (Acetaminophen 325 Mg Tablet) 975 mg PO TID [facility] Last Admin: 12/29/22 09:01 Dose: 975 mg Al Hydroxide/Mg Hydroxide (Magnesium Hydrox/Alum Hydrox 30 Ml Oral.Susp) 30 ml PO Q6H PRN PRN Reason: Heartburn/Nausea Donepezil HCl (Donepezil Hcl 10 Mg Tablet) 10 mg PO BEDTIME [facility] Last Admin: 12/28/22 20:53 Dose: 10 mg Hydroxyzine HCl (Hydroxyzine Hcl 25 Mg Tablet) 25 mg PO Q6H PRN PRN Reason: Anxiety Last Admin: 12/26/22 20:07 Dose: 25 mg Lamotrigine (Lamotrigine 25 Mg Tablet) 25 mg PO BID [facility] Last Admin: 12/29/22 09:01 Dose: 25 mg Lidocaine (Lidocaine 4 % Patch Adh..Patch) 1 patch TRANSDERMA DAILY [facility]; Protocol Last Admin: 12/29/22 09:01 Dose: 1 patch Magnesium Hydroxide (Milk Of Magnesia 30 Ml Oral.Susp) 30 ml PO DAILY PRN PRN Reason: Constipation Last Admin: 12/26/22 08:54 Dose: 30 ml Memantine (Memantine Hcl 10 Mg Tablet) 10 mg PO BID [facility] Last Admin: 12/29/22 09:01 Dose: 10 mg Olanzapine (Olanzapine 2.5 Mg Tablet) 2.5 mg PO TID PRN PRN Reason: agitation Last Admin: 12/25/22 20:37 Dose: 2.5 mg Olanzapine (Olanzapine 10 Mg Tablet) 10 mg PO BEDTIME [facility] Last Admin: 12/28/22 20:53 Dose: 10 mg Trazodone HCl (Trazodone Hcl 50 Mg Tablet) 50 mg PO BEDTIME PRN PRN Reason: Insomnia Last Admin: 12/27/22 20:56 Dose: 50 mg Allergies Allergies Allergy/AdvReac Type Severity Reaction Status Date / Time pollen extracts Allergy Unknown unknown Verified 04/21/22 14:56 latex Allergy Rash Verified 10/31/22 18:30 Assessment & Plan Assessment & Plan (1) Bipolar disorder, now depressed: Status: Acute Code(s): F31.30 - Bipolar disorder, current episode depressed, mild or moderate severity, unspecified (2) Cognitive impairment: Status: Acute Code(s): R41.89 - Other symptoms and signs involving cognitive functions and awareness Plan 82 year old male with history hyperlipidemia, tubular adenoma colon (last colonoscopy 12/21), BPH, chronic normocytic anemia, osteoarthritis shoulders and hips s/p b/l hip arthroplasty, chronic low back pain with lumbar stenosis, depression, hx rotator cuff tear, actinic keratosis, and atypical melanocytic hyperplasia admitted to geriatric psychiatry from [facility] with consult placed to medical hospitalist service for medical H&P. 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 Can use ibuprofen 600mg q6h prn as well if topical diclofenac unavailable. #Chronic left hip pain -per ED provider note at [facility], patient foot got stuck in a hole several months ago and fell onto the left hip. Subsequent imaging studies including x-ray of the hip/pelvis and CT of the pelvis are negative for fracture -Pain management as above -outpt follow up Pt refused physical extensive. Extensive review of prior note and records from [facility] conducted as noted above. Plan 1. The patient now has a guardian and we are trying to look for placement since he does not have a home for himself for social support in the community. 2. Continue with Zyprexa as a mood stabilizer. 3. Increase Lamictal up to 25 p.o. b.i.d. on December 17 to target dysphoria. 4. Waiting for placement. 12/29: stable. continue current mgmt. Reason for continued inpatient stay Substantial Risk for: inability to function and rapid decompensation Time Spent With Patient Time: Total time managing care of this patient today ____ minutes.
[2022-12-29 18:00] VITALS: BP 128/73; PULSE 59; RESP 17; TEMP 36.2; O2SAT 96
[2022-12-29] MEDS: OLANZapine 10 MG TABLET PO (20:45)
[2022-12-29] MEDS: Donepezil HCl 10 MG TABLET PO (20:45)
[2022-12-30 08:05] VITALS: BP 128/68; PULSE 66; RESP 18; TEMP 36.8; O2SAT 96
[2022-12-30] MEDS: Lidocaine 4 % Patch ADH..PATCH 1 PATCH TRANSDERMA (08:36)
[2022-12-30] MEDS: lamoTRIgine 25 MG TABLET PO ×2 (08:37→19:54)
[2022-12-30] MEDS: Acetaminophen 325 MG TABLET 975 MG PO ×3 (08:37→19:52)
[2022-12-30] MEDS: Memantine HCl 10 MG TABLET PO ×2 (08:41→19:54)
--- NOTE | 2022-12-30 11:40 | P.PNPSI_ITS ---
Subjective Subjective Date of Service: 12/30/22 Reason For Visit: F31.9, F43.25 Interim History: in bed, sleeping but rousable. doesn't open his eyes: i'm catching a nap here. no questions or complaints. per staff, dispirited. sleeping well. eating and taking meds. Mental Status Exam Mental Status Exam Patient Appearance: Appropriate Patient Orientation: Person and Situation Level of Consciousness: Appropriate and Drowsy Patient Behavior: Guarded and Passive Mood Description: Withdrawn Affect Description: Constricted Patient Cognition Impaired: Yes Ability to Follow Directions: Good Speech Pattern: Clear Hallucinations: None Delusions: Not Present Thought Process: Distracted and Evasive Thought Content: positive for [place] and positive for Poverty of Content Judgement: Poor Diagnostics Vital Signs (24Hr): Vital Signs - 24 hr 12/29/22 18:00 12/30/22 08:05 Temperature 97.2 F 98.3 F Pulse Rate 59 66 Respiratory Rate 17 18 Blood Pressure 128/73 128/68 Pulse Oximetry 96 96 Oxygen Delivery Method Room Air Room Air BMI result Body Mass Index 27.8 Labs 12/03/22 11:52 Medications Medications Current Medications Acetaminophen (Acetaminophen 325 Mg Tablet) 975 mg PO TID [facility] Last Admin: 12/30/22 08:37 Dose: 975 mg Al Hydroxide/Mg Hydroxide (Magnesium Hydrox/Alum Hydrox 30 Ml Oral.Susp) 30 ml PO Q6H PRN PRN Reason: Heartburn/Nausea Donepezil HCl (Donepezil Hcl 10 Mg Tablet) 10 mg PO BEDTIME [facility] Last Admin: 12/29/22 20:45 Dose: 10 mg Hydroxyzine HCl (Hydroxyzine Hcl 25 Mg Tablet) 25 mg PO Q6H PRN PRN Reason: Anxiety Last Admin: 12/26/22 20:07 Dose: 25 mg Lamotrigine (Lamotrigine 25 Mg Tablet) 25 mg PO BID [facility] Last Admin: 12/30/22 08:37 Dose: 25 mg Lidocaine (Lidocaine 4 % Patch Adh..Patch) 1 patch TRANSDERMA DAILY [facility]; Protocol Last Admin: 12/30/22 08:36 Dose: 1 patch Magnesium Hydroxide (Milk Of Magnesia 30 Ml Oral.Susp) 30 ml PO DAILY PRN PRN Reason: Constipation Last Admin: 12/26/22 08:54 Dose: 30 ml Memantine (Memantine Hcl 10 Mg Tablet) 10 mg PO BID [facility] Last Admin: 12/30/22 08:41 Dose: 10 mg Olanzapine (Olanzapine 2.5 Mg Tablet) 2.5 mg PO TID PRN PRN Reason: agitation Last Admin: 12/25/22 20:37 Dose: 2.5 mg Olanzapine (Olanzapine 10 Mg Tablet) 10 mg PO BEDTIME [facility] Last Admin: 12/29/22 20:45 Dose: 10 mg Trazodone HCl (Trazodone Hcl 50 Mg Tablet) 50 mg PO BEDTIME PRN PRN Reason: Insomnia Last Admin: 12/27/22 20:56 Dose: 50 mg Allergies Allergies Allergy/AdvReac Type Severity Reaction Status Date / Time pollen extracts Allergy Unknown unknown Verified 04/21/22 14:56 latex Allergy Rash Verified 10/31/22 18:30 Assessment & Plan Assessment & Plan (1) Bipolar disorder, now depressed: Status: Acute Code(s): F31.30 - Bipolar disorder, current episode depressed, mild or moderate severity, unspecified (2) Cognitive impairment: Status: Acute Code(s): R41.89 - Other symptoms and signs involving cognitive functions and awareness Plan 82 year old male with history hyperlipidemia, tubular adenoma colon (last colonoscopy 12/21), BPH, chronic normocytic anemia, osteoarthritis shoulders and hips s/p b/l hip arthroplasty, 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 Can use ibuprofen 600mg q6h prn as well if topical diclofenac unavailable. #Chronic left hip pain -per ED provider note at [facility], patient foot got stuck in a hole several months ago and fell onto the left hip. Subsequent imaging studies including x-ray of the hip/pelvis and CT of the pelvis are negative for fracture -Pain management as above -outpt follow up Pt refused physical extensive. Extensive review of prior note and records from [facility] conducted as noted above. Plan 1. The patient now has a guardian and we are trying to look for placement since he does not have a home for himself for social support in the community. 2. Continue with Zyprexa as a mood stabilizer. 3. Increase Lamictal up to 25 p.o. b.i.d. on December 17 to target dysphoria. 4. Waiting for placement. 12/29: stable. continue current mgmt. 12/30: stable. continue current mgmt. Reason for continued inpatient stay Substantial Risk for: inability to function and rapid decompensation Time Spent With Patient Time: Total time managing care of this patient today ____ minutes.
[2022-12-30 18:00] VITALS: BP 145/63; PULSE 68; RESP 18; TEMP 36.3; O2SAT 97
[2022-12-30] MEDS: OLANZapine 10 MG TABLET PO (19:53)
[2022-12-30] MEDS: Donepezil HCl 10 MG TABLET PO (19:53)
[2022-12-31 07:55] VITALS: BP 154/87; PULSE 70; RESP 18; TEMP 36.6; O2SAT 96
[2022-12-31] MEDS: Acetaminophen 325 MG TABLET 975 MG PO ×2 (14:31→20:22)
--- NOTE | 2022-12-31 17:04 | P.PNPSI_ITS ---
Subjective Subjective Date of Service: 12/31/22 Reason For Visit: F31.9, F43.25 Subjective Notes: Section 7 and Section 8 Interim History: The nursing staff reported the patient slept 7 or 8 hours, he refused his medications in the morning. In the afternoon he was resting in his bed, denies new symptoms, waiting for placement. Mental Status Exam Mental Status Exam Patient Appearance: Appropriate Patient Orientation: Person and Situation Level of Consciousness: Awake and Appropriate Patient Behavior: Guarded and Passive Mood Description: Calm Affect Description: Constricted Patient Cognition Impaired: Yes Ability to Follow Directions: Fair Speech Pattern: Clear Hallucinations: None Delusions: Not Present Thought Process: Distracted and Slowed Thinking Thought Content: positive for [place] and positive for Poverty of Content Judgement: Fair Diagnostics Vital Signs (24Hr): Vital Signs - 24 hr 12/30/22 18:00 12/31/22 07:55 Temperature 97.3 F 97.9 F Pulse Rate 68 70 Respiratory Rate 18 18 Blood Pressure 145/63 H 154/87 H Pulse Oximetry 97 96 Oxygen Delivery Method Room Air BMI result Body Mass Index 27.8 Labs 12/03/22 11:52 Medications Medications Current Medications Acetaminophen (Acetaminophen 325 Mg Tablet) 975 mg PO TID [facility] Last Admin: 12/31/22 14:31 Dose: 975 mg Al Hydroxide/Mg Hydroxide (Magnesium Hydrox/Alum Hydrox 30 Ml Oral.Susp) 30 ml PO Q6H PRN PRN Reason: Heartburn/Nausea Donepezil HCl (Donepezil Hcl 10 Mg Tablet) 10 mg PO BEDTIME [facility] Last Admin: 12/30/22 19:53 Dose: 10 mg Hydroxyzine HCl (Hydroxyzine Hcl 25 Mg Tablet) 25 mg PO Q6H PRN PRN Reason: Anxiety Last Admin: 12/26/22 20:07 Dose: 25 mg Lamotrigine (Lamotrigine 25 Mg Tablet) 25 mg PO BID [facility] Last Admin: 12/31/22 08:47 Dose: Not Given Lidocaine (Lidocaine 4 % Patch Adh..Patch) 1 patch TRANSDERMA DAILY [facility]; Protocol Last Admin: 12/31/22 08:47 Dose: Not Given Magnesium Hydroxide (Milk Of Magnesia 30 Ml Oral.Susp) 30 ml PO DAILY PRN PRN Reason: Constipation Last Admin: 12/26/22 08:54 Dose: 30 ml Memantine (Memantine Hcl 10 Mg Tablet) 10 mg PO BID [facility] Last Admin: 12/31/22 08:48 Dose: Not Given Olanzapine (Olanzapine 2.5 Mg Tablet) 2.5 mg PO TID PRN PRN Reason: agitation Last Admin: 12/25/22 20:37 Dose: 2.5 mg Olanzapine (Olanzapine 10 Mg Tablet) 10 mg PO BEDTIME [facility] Last Admin: 12/30/22 19:53 Dose: 10 mg Trazodone HCl (Trazodone Hcl 50 Mg Tablet) 50 mg PO BEDTIME PRN PRN Reason: Insomnia Last Admin: 12/27/22 20:56 Dose: 50 mg Allergies Allergies Allergy/AdvReac Type Severity Reaction Status Date / Time pollen extracts Allergy Unknown unknown Verified 04/21/22 14:56 latex Allergy Rash Verified 10/31/22 18:30 Assessment & Plan Assessment & Plan (1) Bipolar disorder, now depressed: Status: Acute Code(s): F31.30 - Bipolar disorder, current episode depressed, mild or moderate severity, unspecified (2) Cognitive impairment: Status: Acute Code(s): R41.89 - Other symptoms and signs involving cognitive functions and awareness Plan 82 year old male with history hyperlipidemia, tubular adenoma colon (last colonoscopy 12/21), BPH, chronic normocytic anemia, osteoarthritis shoulders and hips s/p b/l hip arthroplasty, chronic low back pain with lumbar stenosis, depression, hx rotator cuff tear, actinic keratosis, and atypical melanocytic hyperplasia admitted to geriatric psychiatry from [facility] with consult placed to medical hospitalist service for medical H&P. 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 Can use ibuprofen 600mg q6h prn as well if topical diclofenac unavailable. #Chronic left hip pain -per ED provider note at [facility], patient foot got stuck in a hole several months ago and fell onto the left hip. Subsequent imaging studies including x-ray of the hip/pelvis and CT of the pelvis are negative for fracture -Pain management as above -outpt follow up Pt refused physical extensive. Extensive review of prior note and records from [facility] conducted as noted above. Plan 1. The patient now has a guardian and we are trying to look for placement since he does not have a home for himself for social support in the community. 2. Continue with Zyprexa as a mood stabilizer. 3. Increase Lamictal up to 25 p.o. b.i.d. on December 17 to target dysphoria. 4. Waiting for placement. Reason for continued inpatient stay Substantial Risk for: inability to function, rapid decompensation and med/psych decompensation Time Spent With Patient Time: Total time managing care of this patient today __20__ minutes.
[2022-12-31] MEDS: Memantine HCl 10 MG TABLET PO (20:24)
[2022-12-31] MEDS: OLANZapine 10 MG TABLET PO (20:24)
[2022-12-31] MEDS: traZODone HCL 50 MG TABLET PO (20:24)
[2022-12-31] MEDS: Donepezil HCl 10 MG TABLET PO (20:24)
[2022-12-31] MEDS: lamoTRIgine 25 MG TABLET PO (20:25)
[2023-01-01 07:55] VITALS: BP 134/69; PULSE 72; RESP 18; TEMP 36.8; O2SAT 97
[2023-01-01] MEDS: Memantine HCl 10 MG TABLET PO ×2 (08:25→20:48)
[2023-01-01] MEDS: Lidocaine 4 % Patch ADH..PATCH 1 PATCH TRANSDERMA (08:25)
[2023-01-01] MEDS: lamoTRIgine 25 MG TABLET PO ×2 (08:25→20:48)
[2023-01-01] MEDS: Acetaminophen 325 MG TABLET 975 MG PO (08:25)
--- NOTE | 2023-01-01 13:19 | HO.PSYCHPN ---
Subjective Subjective Date of Service: 01/01/23 Reason For Visit: F31.9, F43.25 Subjective Notes: Section 7 and Section 8 Interim History: The nursing staff no changes in his mental status compliant with treatment. On interview the patient denies new symptoms, waiting for placement. Mental Status Exam Mental Status Exam Patient Appearance: Appropriate and Unkempt Patient Orientation: Person Level of Consciousness: Awake Patient Behavior: Guarded and Passive Mood Description: Withdrawn Affect Description: Constricted Patient Cognition Impaired: Yes Ability to Follow Directions: Good Speech Pattern: Clear Hallucinations: None Delusions: Not Present Thought Process: Distracted and Slowed Thinking Thought Content: positive for [place] and positive for Poverty of Content Judgement: Fair Diagnostics Vital Signs (24Hr): Vital Signs - 24 hr 01/01/23 07:55 Temperature 98.2 F Pulse Rate 72 Respiratory Rate 18 Blood Pressure 134/69 Pulse Oximetry 97 Oxygen Delivery Method Room Air BMI result Body Mass Index 27.8 Labs 12/03/22 11:52 Medications Medications Current Medications Acetaminophen (Acetaminophen 325 Mg Tablet) 975 mg PO TID [facility] Last Admin: 01/01/23 08:25 Dose: 975 mg Al Hydroxide/Mg Hydroxide (Magnesium Hydrox/Alum Hydrox 30 Ml Oral.Susp) 30 ml PO Q6H PRN PRN Reason: Heartburn/Nausea Donepezil HCl (Donepezil Hcl 10 Mg Tablet) 10 mg PO BEDTIME [facility] Last Admin: 12/31/22 20:24 Dose: 10 mg Hydroxyzine HCl (Hydroxyzine Hcl 25 Mg Tablet) 25 mg PO Q6H PRN PRN Reason: Anxiety Last Admin: 12/26/22 20:07 Dose: 25 mg Lamotrigine (Lamotrigine 25 Mg Tablet) 25 mg PO BID [facility] Last Admin: 01/01/23 08:25 Dose: 25 mg Lidocaine (Lidocaine 4 % Patch Adh..Patch) 1 patch TRANSDERMA DAILY [facility]; Protocol Last Admin: 01/01/23 08:25 Dose: 1 patch Magnesium Hydroxide (Milk Of Magnesia 30 Ml Oral.Susp) 30 ml PO DAILY PRN PRN Reason: Constipation Last Admin: 12/26/22 08:54 Dose: 30 ml Memantine (Memantine Hcl 10 Mg Tablet) 10 mg PO BID [facility] Last Admin: 01/01/23 08:25 Dose: 10 mg Olanzapine (Olanzapine 2.5 Mg Tablet) 2.5 mg PO TID PRN PRN Reason: agitation Last Admin: 12/25/22 20:37 Dose: 2.5 mg Olanzapine (Olanzapine 10 Mg Tablet) 10 mg PO BEDTIME [facility] Last Admin: 12/31/22 20:24 Dose: 10 mg Trazodone HCl (Trazodone Hcl 50 Mg Tablet) 50 mg PO BEDTIME PRN PRN Reason: Insomnia Last Admin: 12/31/22 20:24 Dose: 50 mg Allergies Allergies Allergy/AdvReac Type Severity Reaction Status Date / Time pollen extracts Allergy Unknown unknown Verified 04/21/22 14:56 latex Allergy Rash Verified 10/31/22 18:30 Assessment & Plan Assessment & Plan (1) Bipolar disorder, now depressed: Status: Acute Code(s): F31.30 - Bipolar disorder, current episode depressed, mild or moderate severity, unspecified (2) Cognitive impairment: Status: Acute Code(s): R41.89 - Other symptoms and signs involving cognitive functions and awareness Plan 82 year old male with history hyperlipidemia, tubular adenoma colon (last colonoscopy 12/21), BPH, chronic normocytic anemia, osteoarthritis shoulders and hips s/p b/l hip arthroplasty, chronic low back pain with lumbar stenosis, depression, hx rotator cuff tear, actinic keratosis, and atypical melanocytic hyperplasia admitted to geriatric psychiatry from [facility] with consult placed to medical hospitalist service for medical H&P. 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 Can use ibuprofen 600mg q6h prn as well if topical diclofenac unavailable. #Chronic left hip pain -per ED provider note at [facility], patient foot got stuck in a hole several months ago and fell onto the left hip. Subsequent imaging studies including x-ray of the hip/pelvis and CT of the pelvis are negative for fracture -Pain management as above -outpt follow up Pt refused physical extensive. Extensive review of prior note and records from [facility] conducted as noted above. Plan 1. The patient now has a guardian and we are trying to look for placement since he does not have a home for himself for social support in the community. 2. Continue with Zyprexa as a mood stabilizer. 3. Increase Lamictal up to 25 p.o. b.i.d. on December 17 to target dysphoria. 4. Waiting for placement. Reason for continued inpatient stay Substantial Risk for: inability to function, rapid decompensation and med/psych decompensation Time Spent With Patient Time: Total time managing care of this patient today ___20_ minutes.
[2023-01-01] MEDS: Milk of Magnesia 30 ML ORAL.SUSP PO (16:22)
--- NOTE | 2023-01-01 16:24 | PC.NURSE ---
pt c/o constipation MOM given at 1620, pending results
[2023-01-01 18:00] VITALS: BP 122/78; PULSE 65; RESP 18; TEMP 36.6; O2SAT 94
[2023-01-01] MEDS: Donepezil HCl 10 MG TABLET PO (20:48)
[2023-01-01] MEDS: OLANZapine 10 MG TABLET PO (20:49)
[2023-01-01] MEDS: traZODone HCL 50 MG TABLET PO (20:49)
[2023-01-02] MEDS: lamoTRIgine 25 MG TABLET PO ×2 (08:20→20:09)
[2023-01-02] MEDS: Memantine HCl 10 MG TABLET PO ×2 (08:20→20:09)
[2023-01-02 08:55] VITALS: BP 109/59; PULSE 76; RESP 16; TEMP 36.8; O2SAT 94
[2023-01-02] MEDS: Lidocaine 4 % Patch ADH..PATCH 1 PATCH TRANSDERMA (08:59)
[2023-01-02] MEDS: Acetaminophen 325 MG TABLET 975 MG PO ×3 (09:00→20:08)
--- NOTE | 2023-01-02 15:03 | HO.PSYCHPN ---
Subjective Subjective Date of Service: 01/02/23 Reason For Visit: F31.9, F43.25 Subjective Notes: Section 7 and Section 8 Interim History: The nursing staff reports no changes in mental status, compliant with treatment. On interview the patient denies new symptoms, waiting for placement. Mental Status Exam Mental Status Exam Patient Appearance: Appropriate and Unkempt Patient Orientation: Person Level of Consciousness: Awake and Appropriate Patient Behavior: Guarded and Passive Mood Description: Withdrawn Affect Description: Calm Patient Cognition Impaired: Yes Ability to Follow Directions: Good Speech Pattern: Clear Hallucinations: None Delusions: Not Present Thought Process: Distracted and Evasive Judgement: Fair Diagnostics Vital Signs (24Hr): Vital Signs - 24 hr 01/01/23 18:00 01/02/23 08:55 Temperature 97.8 F 98.3 F Pulse Rate 65 76 Respiratory Rate 18 16 Blood Pressure 122/78 109/59 L Pulse Oximetry 94 94 Oxygen Delivery Method Room Air Room Air BMI result Body Mass Index 27.8 Labs 12/03/22 11:52 Medications Medications Current Medications Acetaminophen (Acetaminophen 325 Mg Tablet) 975 mg PO TID [facility] Last Admin: 01/02/23 09:00 Dose: 975 mg Al Hydroxide/Mg Hydroxide (Magnesium Hydrox/Alum Hydrox 30 Ml Oral.Susp) 30 ml PO Q6H PRN PRN Reason: Heartburn/Nausea Donepezil HCl (Donepezil Hcl 10 Mg Tablet) 10 mg PO BEDTIME [facility] Last Admin: 01/01/23 20:48 Dose: 10 mg Hydroxyzine HCl (Hydroxyzine Hcl 25 Mg Tablet) 25 mg PO Q6H PRN PRN Reason: Anxiety Last Admin: 12/26/22 20:07 Dose: 25 mg Lamotrigine (Lamotrigine 25 Mg Tablet) 25 mg PO BID [facility] Last Admin: 01/02/23 08:20 Dose: 25 mg Lidocaine (Lidocaine 4 % Patch Adh..Patch) 1 patch TRANSDERMA DAILY [facility]; Protocol Last Admin: 01/02/23 08:59 Dose: 1 patch Magnesium Hydroxide (Milk Of Magnesia 30 Ml Oral.Susp) 30 ml PO DAILY PRN PRN Reason: Constipation Last Admin: 01/01/23 16:22 Dose: 30 ml Memantine (Memantine Hcl 10 Mg Tablet) 10 mg PO BID [facility] Last Admin: 01/02/23 08:20 Dose: 10 mg Olanzapine (Olanzapine 2.5 Mg Tablet) 2.5 mg PO TID PRN PRN Reason: agitation Last Admin: 12/25/22 20:37 Dose: 2.5 mg Olanzapine (Olanzapine 10 Mg Tablet) 10 mg PO BEDTIME [facility] Last Admin: 01/01/23 20:49 Dose: 10 mg Trazodone HCl (Trazodone Hcl 50 Mg Tablet) 50 mg PO BEDTIME PRN PRN Reason: Insomnia Last Admin: 01/01/23 20:49 Dose: 50 mg Allergies Allergies Allergy/AdvReac Type Severity Reaction Status Date / Time pollen extracts Allergy Unknown unknown Verified 04/21/22 14:56 latex Allergy Rash Verified 10/31/22 18:30 Assessment & Plan Assessment & Plan (1) Bipolar disorder, now depressed: Status: Acute Code(s): F31.30 - Bipolar disorder, current episode depressed, mild or moderate severity, unspecified (2) Cognitive impairment: Status: Acute Code(s): R41.89 - Other symptoms and signs involving cognitive functions and awareness Plan 82 year old male with history hyperlipidemia, tubular adenoma colon (last colonoscopy 12/21), BPH, chronic normocytic anemia, osteoarthritis shoulders and hips s/p b/l hip arthroplasty, chronic low back pain with lumbar stenosis, depression, hx rotator cuff tear, actinic keratosis, and atypical melanocytic hyperplasia admitted to geriatric psychiatry from [facility] with consult placed to medical hospitalist service for medical H&P. 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 Can use ibuprofen 600mg q6h prn as well if topical diclofenac unavailable. #Chronic left hip pain -per ED provider note at [facility], patient foot got stuck in a hole several months ago and fell onto the left hip. Subsequent imaging studies including x-ray of the hip/pelvis and CT of the pelvis are negative for fracture -Pain management as above -outpt follow up Pt refused physical extensive. Extensive review of prior note and records from [facility] conducted as noted above. Plan 1. The patient now has a guardian and we are trying to look for placement since he does not have a home for himself for social support in the community. 2. Continue with Zyprexa as a mood stabilizer. 3. Increase Lamictal up to 25 p.o. b.i.d. on December 17 to target dysphoria. 4. Waiting for placement. Reason for continued inpatient stay Substantial Risk for: inability to function, rapid decompensation and med/psych decompensation Time Spent With Patient Time: Total time managing care of this patient today __20__ minutes.
[2023-01-02 19:40] VITALS: BP 110/68; PULSE 78; RESP 17; TEMP 36.8; O2SAT 94
[2023-01-02] MEDS: Donepezil HCl 10 MG TABLET PO (20:09)
[2023-01-02] MEDS: traZODone HCL 50 MG TABLET PO (20:09)
[2023-01-02] MEDS: OLANZapine 10 MG TABLET PO (20:09)
[2023-01-03 07:00] VITALS: BMI 27.7
[2023-01-03 08:08] VITALS: BP 159/79; PULSE 67; RESP 18; TEMP 36.2; O2SAT 96
[2023-01-03] MEDS: Acetaminophen 325 MG TABLET 975 MG PO ×3 (08:12→20:38)
[2023-01-03] MEDS: lamoTRIgine 25 MG TABLET PO (08:13)
[2023-01-03] MEDS: Lidocaine 4 % Patch ADH..PATCH 1 PATCH TRANSDERMA (08:13)
[2023-01-03] MEDS: Memantine HCl 10 MG TABLET PO ×2 (08:13→20:37)
--- NOTE | 2023-01-03 14:14 | HO.PSYCHPN ---
Subjective Subjective Date of Service: 01/03/23 Reason For Visit: F31.9, F43.25 Subjective Notes: Section 7 and Section 8 Interim History: The nursing staff reported no changes in his mental status he looks pleasant her CT chest Lance. On interview the patient denies new symptoms he states that he is doing fine. We decided to increase the Lamictal up to 50 mg p.o. b.i.d. to target depression and add p.r.n. tramadol if acetaminophen will not work. Mental Status Exam Mental Status Exam Patient Appearance: Unkempt Patient Orientation: Person Level of Consciousness: Awake Patient Behavior: Guarded and Passive Mood Description: Withdrawn Affect Description: Constricted Patient Cognition Impaired: Yes Ability to Follow Directions: Good Speech Pattern: Clear Hallucinations: None Delusions: Not Present Thought Process: Slowed Thinking Thought Content: positive for [place] and positive for Circumstantial Judgement: Fair Diagnostics Vital Signs (24Hr): Vital Signs - 24 hr 01/02/23 19:40 01/03/23 08:08 Temperature 98.3 F 97.1 F Pulse Rate 78 67 Respiratory Rate 17 18 Blood Pressure 110/68 159/79 H Pulse Oximetry 94 96 Oxygen Delivery Method Room Air Room Air BMI result Body Mass Index 27.7 Labs 12/03/22 11:52 Medications Medications Current Medications Acetaminophen (Acetaminophen 325 Mg Tablet) 975 mg PO TID [facility] Last Admin: 01/03/23 08:12 Dose: 975 mg Al Hydroxide/Mg Hydroxide (Magnesium Hydrox/Alum Hydrox 30 Ml Oral.Susp) 30 ml PO Q6H PRN PRN Reason: Heartburn/Nausea Donepezil HCl (Donepezil Hcl 10 Mg Tablet) 10 mg PO BEDTIME [facility] Last Admin: 01/02/23 20:09 Dose: 10 mg Hydroxyzine HCl (Hydroxyzine Hcl 25 Mg Tablet) 25 mg PO Q6H PRN PRN Reason: Anxiety Last Admin: 12/26/22 20:07 Dose: 25 mg Lamotrigine (Lamotrigine 25 Mg Tablet) 50 mg PO BID [facility] Lidocaine (Lidocaine 4 % Patch Adh..Patch) 1 patch TRANSDERMA DAILY [facility]; Protocol Last Admin: 01/03/23 08:13 Dose: 1 patch Magnesium Hydroxide (Milk Of Magnesia 30 Ml Oral.Susp) 30 ml PO DAILY PRN PRN Reason: Constipation Last Admin: 01/01/23 16:22 Dose: 30 ml Memantine (Memantine Hcl 10 Mg Tablet) 10 mg PO BID [facility] Last Admin: 01/03/23 08:13 Dose: 10 mg Olanzapine (Olanzapine 2.5 Mg Tablet) 2.5 mg PO TID PRN PRN Reason: agitation Last Admin: 12/25/22 20:37 Dose: 2.5 mg Olanzapine (Olanzapine 10 Mg Tablet) 10 mg PO BEDTIME [facility] Last Admin: 01/02/23 20:09 Dose: 10 mg Tramadol HCl (Tramadol Hcl 50 Mg Tablet) 50 mg PO Q6H PRN PRN Reason: Pain, Moderate(Pain Scale 4-6) Last Admin: 01/03/23 09:40 Dose: 50 mg Trazodone HCl (Trazodone Hcl 50 Mg Tablet) 50 mg PO BEDTIME PRN PRN Reason: Insomnia Last Admin: 01/02/23 20:09 Dose: 50 mg Allergies Allergies Allergy/AdvReac Type Severity Reaction Status Date / Time pollen extracts Allergy Unknown unknown Verified 04/21/22 14:56 latex Allergy Rash Verified 10/31/22 18:30 Assessment & Plan Assessment & Plan (1) Bipolar disorder, now depressed: Status: Acute Code(s): F31.30 - Bipolar disorder, current episode depressed, mild or moderate severity, unspecified (2) Cognitive impairment: Status: Acute Code(s): R41.89 - Other symptoms and signs involving cognitive functions and awareness Plan 82 year old male with history hyperlipidemia, tubular adenoma colon (last colonoscopy 12/21), BPH, chronic normocytic anemia, osteoarthritis shoulders and hips s/p b/l hip arthroplasty, 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 Can use ibuprofen 600mg q6h prn as well if topical diclofenac unavailable. #Chronic left hip pain -per ED provider note at [facility], patient foot got stuck in a hole several months ago and fell onto the left hip. Subsequent imaging studies including x-ray of the hip/pelvis and CT of the pelvis are negative for fracture -Pain management as above -outpt follow up Pt refused physical extensive. Extensive review of prior note and records from [facility] conducted as noted above. Plan 1. The patient now has a guardian and we are trying to look for placement since he does not have a home for himself for social support in the community. 2. Continue with Zyprexa as a mood stabilizer. 3. Increase Lamictal up to 25 p.o. b.i.d. on December 17 to target dysphoria. On January 03 we are increasing up to 50 mg p.o. b.i.d. to target depression. 4. Waiting for placement. Reason for continued inpatient stay Substantial Risk for: inability to function, rapid decompensation and med/psych decompensation Time Spent With Patient Time: Total time managing care of this patient today __20__ minutes.
[2023-01-03 19:50] VITALS: BP 120/67; PULSE 63; RESP 18; TEMP 36.4; O2SAT 97
[2023-01-03] MEDS: OLANZapine 10 MG TABLET PO (20:37)
[2023-01-03] MEDS: Donepezil HCl 10 MG TABLET PO (20:37)
[2023-01-03] MEDS: traZODone HCL 50 MG TABLET PO (20:37)
[2023-01-04 06:00] VITALS: BP 104/58; PULSE 56; RESP 19; TEMP 36.1; O2SAT 95
[2023-01-04] MEDS: Acetaminophen 325 MG TABLET 975 MG PO ×2 (07:48→20:13)
[2023-01-04] MEDS: Memantine HCl 10 MG TABLET PO ×2 (07:48→20:15)
[2023-01-04] MEDS: Lidocaine 4 % Patch ADH..PATCH 1 PATCH TRANSDERMA (07:50)
--- NOTE | 2023-01-04 09:19 | HO.PSYCHPN ---
Subjective Subjective Date of Service: 01/04/23 Reason For Visit: F31.9, F43.25 Interim History: Met with patient; discussed with team Patient with same presentation. On approach the 1st thing he says is that he has and acute painful back but then explains it has been going on for several years. He says I have been taking pills for it but sometimes it still hurts. 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 Otherwise he denies any complaints. Denies SI or HI. Last night he initially refused medication but then decided to take it. Eating well, sleeping well, in behavioral control; mostly isolative Mental Status Exam Mental Status Exam Patient Appearance: Unkempt Patient Orientation: Person Level of Consciousness: Awake Patient Behavior: Guarded and Passive Mood Description: Withdrawn Affect Description: Constricted Patient Cognition Impaired: Yes Ability to Follow Directions: Good Speech Pattern: Clear Hallucinations: None Delusions: Not Present Thought Process: Slowed Thinking Thought Content: positive for [place] and positive for Circumstantial Judgement: Fair Diagnostics Vital Signs (24Hr): Vital Signs - 24 hr 01/03/23 19:50 01/04/23 06:00 Temperature 97.6 F 97.0 F Pulse Rate 63 56 Respiratory Rate 18 19 Blood Pressure 120/67 104/58 L Pulse Oximetry 97 95 Oxygen Delivery Method Room Air Room Air BMI result Body Mass Index 27.7 Labs 12/03/22 11:52 Medications Medications Current Medications Acetaminophen (Acetaminophen 325 Mg Tablet) 975 mg PO TID [facility] Last Admin: 01/04/23 07:48 Dose: 975 mg Al Hydroxide/Mg Hydroxide (Magnesium Hydrox/Alum Hydrox 30 Ml Oral.Susp) 30 ml PO Q6H PRN PRN Reason: Heartburn/Nausea Donepezil HCl (Donepezil Hcl 10 Mg Tablet) 10 mg PO BEDTIME [facility] Last Admin: 01/03/23 20:37 Dose: 10 mg Hydroxyzine HCl (Hydroxyzine Hcl 25 Mg Tablet) 25 mg PO Q6H PRN PRN Reason: Anxiety Last Admin: 12/26/22 20:07 Dose: 25 mg Lamotrigine (Lamotrigine 25 Mg Tablet) 50 mg PO BID [facility] Last Admin: 01/04/23 07:48 Dose: 50 mg Lidocaine (Lidocaine 4 % Patch Adh..Patch) 1 patch TRANSDERMA DAILY [facility]; Protocol Last Admin: 01/04/23 07:50 Dose: 1 patch Magnesium Hydroxide (Milk Of Magnesia 30 Ml Oral.Susp) 30 ml PO DAILY PRN PRN Reason: Constipation Last Admin: 01/01/23 16:22 Dose: 30 ml Memantine (Memantine Hcl 10 Mg Tablet) 10 mg PO BID [facility] Last Admin: 01/04/23 07:48 Dose: 10 mg Olanzapine (Olanzapine 2.5 Mg Tablet) 2.5 mg PO TID PRN PRN Reason: agitation Last Admin: 12/25/22 20:37 Dose: 2.5 mg Olanzapine (Olanzapine 10 Mg Tablet) 10 mg PO BEDTIME [facility] Last Admin: 01/03/23 20:37 Dose: 10 mg Tramadol HCl (Tramadol Hcl 50 Mg Tablet) 50 mg PO Q6H PRN PRN Reason: Pain, Moderate(Pain Scale 4-6) Last Admin: 01/03/23 09:40 Dose: 50 mg Trazodone HCl (Trazodone Hcl 50 Mg Tablet) 50 mg PO BEDTIME PRN PRN Reason: Insomnia Last Admin: 01/03/23 20:37 Dose: 50 mg Allergies Allergies Allergy/AdvReac Type Severity Reaction Status Date / Time pollen extracts Allergy Unknown unknown Verified 04/21/22 14:56 latex Allergy Rash Verified 10/31/22 18:30 Assessment & Plan Assessment & Plan (1) Bipolar disorder, now depressed: Status: Acute Code(s): F31.30 - Bipolar disorder, current episode depressed, mild or moderate severity, unspecified (2) Cognitive impairment: Status: Acute Code(s): R41.89 - Other symptoms and signs involving cognitive functions and awareness Plan 82 year old male with history hyperlipidemia, tubular adenoma colon (last colonoscopy 12/21), BPH, chronic normocytic anemia, osteoarthritis shoulders and hips s/p b/l hip arthroplasty, 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 Can use ibuprofen 600mg q6h prn as well if topical diclofenac unavailable. #Chronic left hip pain -per ED provider note at [facility], patient foot got stuck in a hole several months ago and fell onto the left hip. Subsequent imaging studies including x-ray of the hip/pelvis and CT of the pelvis are negative for fracture -Pain management as above -outpt follow up Pt refused physical extensive. Extensive review of prior note and records from [facility] conducted as noted above. Plan 1. The patient now has a guardian and we are trying to look for placement since he does not have a home for himself for social support in the community. 2. Continue with Zyprexa as a mood stabilizer. 3. Increase Lamictal up to 25 p.o. b.i.d. on December 17 to target dysphoria. On January 03 we are increasing up to 50 mg p.o. b.i.d. to target depression. 4. Waiting for placement. Patient educated on: diagnosis and medical condition Informed Consent: understands, does not understand and further education needed Reason for continued inpatient stay Substantial Risk for: inability to function Time Spent With Patient Time: Total time managing care of this patient today ____ minutes.
[2023-01-04 18:00] VITALS: BP 118/76; PULSE 65; RESP 18; TEMP 36.4; O2SAT 94
[2023-01-04] MEDS: OLANZapine 10 MG TABLET PO (20:15)
[2023-01-04] MEDS: Donepezil HCl 10 MG TABLET PO (20:15)
[2023-01-04] MEDS: traZODone HCL 50 MG TABLET PO (20:15)
[2023-01-05 08:00] VITALS: BP 131/76; PULSE 69; RESP 16; TEMP 36.6; O2SAT 94
[2023-01-05] MEDS: Lidocaine 4 % Patch ADH..PATCH 1 PATCH TRANSDERMA (08:35)
[2023-01-05] MEDS: Acetaminophen 325 MG TABLET 975 MG PO ×2 (08:36→15:59)
[2023-01-05] MEDS: Memantine HCl 10 MG TABLET PO ×2 (11:55→20:18)
--- NOTE | 2023-01-05 13:21 | HO.PSYCHPN ---
Subjective Subjective Date of Service: 01/05/23 Reason For Visit: F31.9, F43.25 Medical Problems Affecting Mental Status: No Interim History: Pt seen, discussed with the team. Plan of care reviewed. No behaviors of concern, accepting of meds and care. Appetite and sleep are reported to be intact. Team report observation of some decline in status and are monitoring carefully. Medication Compliance: Yes Side effects from medications: No Attending Groups: Yes Review of Systems Acute medical concerns: No Medical Review of Systems: unchanged Mental Status Exam Mental Status Exam Patient Appearance: Unkempt Patient Orientation: Person Level of Consciousness: Awake Patient Behavior: Guarded and Passive Mood Description: Withdrawn Affect Description: Constricted Patient Cognition Impaired: Yes Ability to Follow Directions: Good Speech Pattern: Clear Hallucinations: None Delusions: Not Present Thought Process: Slowed Thinking Thought Content: positive for [place] and positive for Circumstantial Judgement: Fair Diagnostics Vital Signs (24Hr): Vital Signs - 24 hr 01/04/23 18:00 01/05/23 08:00 Temperature 97.6 F 97.8 F Pulse Rate 65 69 Respiratory Rate 18 16 Blood Pressure 118/76 131/76 Pulse Oximetry 94 94 Oxygen Delivery Method Room Air Room Air BMI result Body Mass Index 27.7 Labs 12/03/22 11:52 Medications Medications Current Medications Acetaminophen (Acetaminophen 325 Mg Tablet) 975 mg PO TID [facility] Last Admin: 01/05/23 08:36 Dose: 975 mg Al Hydroxide/Mg Hydroxide (Magnesium Hydrox/Alum Hydrox 30 Ml Oral.Susp) 30 ml PO Q6H PRN PRN Reason: Heartburn/Nausea Donepezil HCl (Donepezil Hcl 10 Mg Tablet) 10 mg PO BEDTIME [facility] Last Admin: 01/04/23 20:15 Dose: 10 mg Hydroxyzine HCl (Hydroxyzine Hcl 25 Mg Tablet) 25 mg PO Q6H PRN PRN Reason: Anxiety Last Admin: 12/26/22 20:07 Dose: 25 mg Lamotrigine (Lamotrigine 25 Mg Tablet) 50 mg PO BID [facility] Last Admin: 01/05/23 08:37 Dose: 50 mg Lidocaine (Lidocaine 4 % Patch Adh..Patch) 1 patch TRANSDERMA DAILY [facility]; Protocol Last Admin: 01/05/23 08:35 Dose: 1 patch Magnesium Hydroxide (Milk Of Magnesia 30 Ml Oral.Susp) 30 ml PO DAILY PRN PRN Reason: Constipation Last Admin: 01/01/23 16:22 Dose: 30 ml Memantine (Memantine Hcl 10 Mg Tablet) 10 mg PO BID [facility] Last Admin: 01/05/23 11:55 Dose: 10 mg Olanzapine (Olanzapine 2.5 Mg Tablet) 2.5 mg PO TID PRN PRN Reason: agitation Last Admin: 12/25/22 20:37 Dose: 2.5 mg Olanzapine (Olanzapine 10 Mg Tablet) 10 mg PO BEDTIME [facility] Last Admin: 01/04/23 20:15 Dose: 10 mg Tramadol HCl (Tramadol Hcl 50 Mg Tablet) 50 mg PO Q6H PRN PRN Reason: Pain, Moderate(Pain Scale 4-6) Last Admin: 01/04/23 22:12 Dose: 50 mg Trazodone HCl (Trazodone Hcl 50 Mg Tablet) 50 mg PO BEDTIME PRN PRN Reason: Insomnia Last Admin: 01/04/23 20:15 Dose: 50 mg Allergies Allergies Allergy/AdvReac Type Severity Reaction Status Date / Time pollen extracts Allergy Unknown unknown Verified 04/21/22 14:56 latex Allergy Rash Verified 10/31/22 18:30 Assessment & Plan Assessment & Plan (1) Bipolar disorder, now depressed: Status: Acute Code(s): F31.30 - Bipolar disorder, current episode depressed, mild or moderate severity, unspecified (2) Cognitive impairment: Status: Acute Code(s): R41.89 - Other symptoms and signs involving cognitive functions and awareness Plan 82 year old male with history hyperlipidemia, tubular adenoma colon (last colonoscopy 12/21), BPH, chronic normocytic anemia, osteoarthritis shoulders and hips s/p b/l hip arthroplasty, chronic low back pain with lumbar stenosis, depression, hx rotator cuff tear, actinic keratosis, and atypical melanocytic hyperplasia admitted to geriatric psychiatry from [facility] with consult placed to medical hospitalist service for medical H&P. 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 Can use ibuprofen 600mg q6h prn as well if topical diclofenac unavailable. #Chronic left hip pain -per ED provider note at [facility], patient foot got stuck in a hole several months ago and fell onto the left hip. Subsequent imaging studies including x-ray of the hip/pelvis and CT of the pelvis are negative for fracture -Pain management as above -outpt follow up Pt refused physical extensive. Extensive review of prior note and records from [facility] conducted as noted above. Plan 1. The patient now has a guardian and we are trying to look for placement since he does not have a home for himself for social support in the community. 2. Continue with Zyprexa as a mood stabilizer. 3. Increase Lamictal up to 25 p.o. b.i.d. on December 17 to target dysphoria. On January 03 we are increasing up to 50 mg p.o. b.i.d. to target depression. 4. Waiting for placement. 01/05/23 Continue current regime and plan of care. Informed Consent: does not understand Reason for continued inpatient stay Substantial Risk for: rapid decompensation and med/psych decompensation Time Spent With Patient Time: Total time managing care of this patient today ____ minutes.
[2023-01-05 18:00] VITALS: BP 107/69; PULSE 70; RESP 18; TEMP 36.4; O2SAT 92
[2023-01-05] MEDS: traZODone HCL 50 MG TABLET PO (20:18)
[2023-01-05] MEDS: OLANZapine 10 MG TABLET PO (20:18)
[2023-01-05] MEDS: Donepezil HCl 10 MG TABLET PO (20:18)
[2023-01-06 08:00] VITALS: BP 122/68; PULSE 68; RESP 18; TEMP 36.4; O2SAT 95
[2023-01-06] MEDS: Lidocaine 4 % Patch ADH..PATCH 1 PATCH TRANSDERMA (08:37)
[2023-01-06] MEDS: Memantine HCl 10 MG TABLET PO ×2 (08:38→21:05)
--- NOTE | 2023-01-06 13:36 | HO.PSYCHPN ---
Subjective Subjective Date of Service: 01/06/23 Reason For Visit: F31.9, F43.25 Interim History: Pt seen, reviewed with team. Plan of care reviewed. Team report a decrease in daytime sleeping. Pt seen in bed, awake, interactive, on the irritable side today initially. Denies current issues of concern. Medication Compliance: Yes Side effects from medications: No Attending Groups: Intermittent Review of Systems Acute medical concerns: No Medical Review of Systems: unchanged Mental Status Exam Mental Status Exam Patient Appearance: Unkempt Patient Orientation: Person Level of Consciousness: Awake Patient Behavior: Guarded and Passive Mood Description: Withdrawn Affect Description: Constricted Patient Cognition Impaired: Yes Ability to Follow Directions: Good Speech Pattern: Clear Hallucinations: None Delusions: Not Present Thought Process: Slowed Thinking Thought Content: positive for [place] and positive for Circumstantial Judgement: Fair Diagnostics Vital Signs (24Hr): Vital Signs - 24 hr 01/05/23 18:00 01/06/23 08:00 Temperature 97.6 F 97.6 F Pulse Rate 70 68 Respiratory Rate 18 18 Blood Pressure 107/69 122/68 Pulse Oximetry 92 95 Oxygen Delivery Method Room Air Room Air BMI result Body Mass Index 27.7 Labs 12/03/22 11:52 Medications Medications Current Medications Acetaminophen (Acetaminophen 325 Mg Tablet) 975 mg PO TID COUNTS INCLUDE 234 BEDS AT THE [facility] Last Admin: 01/06/23 08:37 Dose: 975 mg Al Hydroxide/Mg Hydroxide (Magnesium Hydrox/Alum Hydrox 30 Ml Oral.Susp) 30 ml PO Q6H PRN PRN Reason: Heartburn/Nausea Donepezil HCl (Donepezil Hcl 10 Mg Tablet) 10 mg PO BEDTIME [facility] Last Admin: 01/05/23 20:18 Dose: 10 mg Hydroxyzine HCl (Hydroxyzine Hcl 25 Mg Tablet) 25 mg PO Q6H PRN PRN Reason: Anxiety Last Admin: 12/26/22 20:07 Dose: 25 mg Lamotrigine (Lamotrigine 25 Mg Tablet) 50 mg PO BID [facility] Last Admin: 01/06/23 08:38 Dose: 50 mg Lidocaine (Lidocaine 4 % Patch Adh..Patch) 1 patch TRANSDERMA DAILY COUNTS INCLUDE 234 BEDS AT THE [facility]; Protocol Last Admin: 01/06/23 08:37 Dose: 1 patch Magnesium Hydroxide (Milk Of Magnesia 30 Ml Oral.Susp) 30 ml PO DAILY PRN PRN Reason: Constipation Last Admin: 01/01/23 16:22 Dose: 30 ml Memantine (Memantine Hcl 10 Mg Tablet) 10 mg PO BID [facility] Last Admin: 01/06/23 08:38 Dose: 10 mg Olanzapine (Olanzapine 2.5 Mg Tablet) 2.5 mg PO TID PRN PRN Reason: agitation Last Admin: 12/25/22 20:37 Dose: 2.5 mg Olanzapine (Olanzapine 10 Mg Tablet) 10 mg PO BEDTIME [facility] Last Admin: 01/05/23 20:18 Dose: 10 mg Tramadol HCl (Tramadol Hcl 50 Mg Tablet) 50 mg PO Q6H PRN PRN Reason: Pain, Moderate(Pain Scale 4-6) Last Admin: 01/05/23 16:00 Dose: 50 mg Trazodone HCl (Trazodone Hcl 50 Mg Tablet) 50 mg PO BEDTIME PRN PRN Reason: Insomnia Last Admin: 01/05/23 20:18 Dose: 50 mg Allergies Allergies Allergy/AdvReac Type Severity Reaction Status Date / Time pollen extracts Allergy Unknown unknown Verified 04/21/22 14:56 latex Allergy Rash Verified 10/31/22 18:30 Assessment & Plan Assessment & Plan (1) Bipolar disorder, now depressed: Status: Acute Code(s): F31.30 - Bipolar disorder, current episode depressed, mild or moderate severity, unspecified (2) Cognitive impairment: Status: Acute Code(s): R41.89 - Other symptoms and signs involving cognitive functions and awareness Plan 82 year old male with history hyperlipidemia, tubular adenoma colon (last colonoscopy 12/21), BPH, chronic normocytic anemia, osteoarthritis shoulders and hips s/p b/l hip arthroplasty, chronic low back pain with lumbar stenosis, depression, hx rotator cuff tear, actinic keratosis, and atypical melanocytic hyperplasia admitted to geriatric psychiatry from [facility] with consult placed to medical hospitalist service for medical H&P. 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 Can use ibuprofen 600mg q6h prn as well if topical diclofenac unavailable. #Chronic left hip pain -per ED provider note at [facility], patient foot got stuck in a hole several months ago and fell onto the left hip. Subsequent imaging studies including x-ray of the hip/pelvis and CT of the pelvis are negative for fracture -Pain management as above -outpt follow up Pt refused physical extensive. Extensive review of prior note and records from [facility] conducted as noted above. Plan 1. The patient now has a guardian and we are trying to look for placement since he does not have a home for himself for social support in the community. 2. Continue with Zyprexa as a mood stabilizer. 3. Increase Lamictal up to 25 p.o. b.i.d. on December 17 to target dysphoria. On January 03 we are increasing up to 50 mg p.o. b.i.d. to target depression. 4. Waiting for placement. 01/05/23 Continue current regime and plan of care. 01/06/23 Continue current regime and plan of care Informed Consent: further education needed Reason for continued inpatient stay Substantial Risk for: rapid decompensation Time Spent With Patient Time: Total time managing care of this patient today ____ minutes.
[2023-01-06 19:54] VITALS: BP 106/64; PULSE 65; RESP 18; TEMP 36.1; O2SAT 92
[2023-01-06] MEDS: Donepezil HCl 10 MG TABLET PO (21:04)
[2023-01-06] MEDS: OLANZapine 10 MG TABLET PO (21:05)
[2023-01-07 06:00] VITALS: BP 120/72; PULSE 77; RESP 18; TEMP 36.2; O2SAT 97
[2023-01-07] MEDS: Lidocaine 4 % Patch ADH..PATCH 1 PATCH TRANSDERMA (08:32)
[2023-01-07] MEDS: Milk of Magnesia 30 ML ORAL.SUSP PO (08:34)
--- NOTE | 2023-01-07 13:32 | HO.PSYCHPN ---
Subjective Subjective Date of Service: 01/07/23 Reason For Visit: F31.9, F43.25 Interim History: Pt seen, discussed with team. Plan of care reviewed. Team reports pt is now up more during the day with recent increase in Lamictal. Today, pt seen watching some TV with peers briefly, attentive Medication Compliance: Yes Side effects from medications: No Attending Groups: Yes Review of Systems Acute medical concerns: No Mental Status Exam Mental Status Exam Patient Appearance: Unkempt Patient Orientation: Person Level of Consciousness: Awake Patient Behavior: Guarded and Passive Mood Description: Withdrawn Affect Description: Constricted Patient Cognition Impaired: Yes Ability to Follow Directions: Good Speech Pattern: Clear Hallucinations: None Delusions: Not Present Thought Process: Slowed Thinking Thought Content: positive for [place] and positive for Circumstantial Judgement: Fair Diagnostics Vital Signs (24Hr): Vital Signs - 24 hr 01/06/23 19:54 01/07/23 06:00 Temperature 96.9 F 97.1 F Pulse Rate 65 77 Respiratory Rate 18 18 Blood Pressure 106/64 120/72 Pulse Oximetry 92 97 Oxygen Delivery Method Room Air Room Air BMI result Body Mass Index 27.7 Labs 12/03/22 11:52 Medications Medications Current Medications Acetaminophen (Acetaminophen 325 Mg Tablet) 975 mg PO TID [facility] Last Admin: 01/07/23 08:31 Dose: 975 mg Al Hydroxide/Mg Hydroxide (Magnesium Hydrox/Alum Hydrox 30 Ml Oral.Susp) 30 ml PO Q6H PRN PRN Reason: Heartburn/Nausea Donepezil HCl (Donepezil Hcl 10 Mg Tablet) 10 mg PO BEDTIME [facility] Last Admin: 01/06/23 21:04 Dose: 10 mg Hydroxyzine HCl (Hydroxyzine Hcl 25 Mg Tablet) 25 mg PO Q6H PRN PRN Reason: Anxiety Last Admin: 12/26/22 20:07 Dose: 25 mg Lamotrigine (Lamotrigine 25 Mg Tablet) 50 mg PO BID [facility] Last Admin: 01/07/23 08:32 Dose: 50 mg Lidocaine (Lidocaine 4 % Patch Adh..Patch) 1 patch TRANSDERMA DAILY [facility]; Protocol Last Admin: 01/07/23 08:32 Dose: 1 patch Magnesium Hydroxide (Milk Of Magnesia 30 Ml Oral.Susp) 30 ml PO DAILY PRN PRN Reason: Constipation Last Admin: 10/09/23 08:34 Dose: 30 ml Memantine (Memantine Hcl 10 Mg Tablet) 10 mg PO BID [facility] Last Admin: 01/07/23 08:32 Dose: 10 mg Olanzapine (Olanzapine 2.5 Mg Tablet) 2.5 mg PO TID PRN PRN Reason: agitation Last Admin: 12/25/22 20:37 Dose: 2.5 mg Olanzapine (Olanzapine 10 Mg Tablet) 10 mg PO BEDTIME [facility] Last Admin: 01/06/23 21:05 Dose: 10 mg Tramadol HCl (Tramadol Hcl 50 Mg Tablet) 50 mg PO Q6H PRN PRN Reason: Pain, Moderate(Pain Scale 4-6) Last Admin: 01/05/23 16:00 Dose: 50 mg Trazodone HCl (Trazodone Hcl 50 Mg Tablet) 50 mg PO BEDTIME PRN PRN Reason: Insomnia Last Admin: 01/05/23 20:18 Dose: 50 mg Allergies Allergies Allergy/AdvReac Type Severity Reaction Status Date / Time pollen extracts Allergy Unknown unknown Verified 04/21/22 14:56 latex Allergy Rash Verified 10/31/22 18:30 Assessment & Plan Assessment & Plan (1) Bipolar disorder, now depressed: Status: Acute Code(s): F31.30 - Bipolar disorder, current episode depressed, mild or moderate severity, unspecified (2) Cognitive impairment: Status: Acute Code(s): R41.89 - Other symptoms and signs involving cognitive functions and awareness Plan 82 year old male with history hyperlipidemia, tubular adenoma colon (last colonoscopy 12/21), BPH, chronic normocytic anemia, osteoarthritis shoulders and hips s/p b/l hip arthroplasty, chronic low back pain with lumbar stenosis, depression, hx rotator cuff tear, actinic keratosis, and atypical melanocytic hyperplasia admitted to geriatric psychiatry from [facility] with consult placed to medical hospitalist service for medical H&P. 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 Can use ibuprofen 600mg q6h prn as well if topical diclofenac unavailable. #Chronic left hip pain -per ED provider note at [facility], patient foot got stuck in a hole several months ago and fell onto the left hip. Subsequent imaging studies including x-ray of the hip/pelvis and CT of the pelvis are negative for fracture -Pain management as above -outpt follow up Pt refused physical extensive. Extensive review of prior note and records from [facility] conducted as noted above. Plan 1. The patient now has a guardian and we are trying to look for placement since he does not have a home for himself for social support in the community. 2. Continue with Zyprexa as a mood stabilizer. 3. Increase Lamictal up to 25 p.o. b.i.d. on December 17 to target dysphoria. On January 03 we are increasing up to 50 mg p.o. b.i.d. to target depression. 4. Waiting for placement. 01/05/23 Continue current regime and plan of care. 01/07/23 Continue current regime and plan of care. Informed Consent: further education needed Reason for continued inpatient stay Substantial Risk for: rapid decompensation Time Spent With Patient Time: Total time managing care of this patient today ____ minutes.
[2023-01-07 20:11] VITALS: BP 117/72; PULSE 67; RESP 16; TEMP 36.2; O2SAT 93
[2023-01-07] MEDS: OLANZapine 10 MG TABLET PO (20:12)
[2023-01-07] MEDS: Donepezil HCl 10 MG TABLET PO (20:12)
[2023-01-08 08:20] VITALS: BP 121/62; PULSE 73; RESP 18; TEMP 36.6; O2SAT 94
--- NOTE | 2023-01-08 12:17 | HO.PSYCHPN ---
Subjective Subjective Date of Service: 01/08/23 Reason For Visit: F31.9, F43.25 Subjective Notes: Section 7 and Section 8 Interim History: The nursing staff reported the patient has been isolative, no behavioral issues confused, he was seen watching TV yesterday. The bilingual social worker reported that she spoke with the guardian and apparently needs to have a conservatorship since there is some money that he needs to be addressed. On interview the patient denies new symptoms, waiting for placement. Mental Status Exam Mental Status Exam Patient Appearance: Appropriate and Unkempt Patient Orientation: Person Level of Consciousness: Awake and Appropriate Patient Behavior: Guarded and Passive Mood Description: Withdrawn Affect Description: Constricted Patient Cognition Impaired: Yes Ability to Follow Directions: Good Speech Pattern: Clear Hallucinations: None Delusions: Not Present Thought Process: Distracted, Evasive and Slowed Thinking Thought Content: positive for [place], positive for [place]overty of [place] and positive for Thought Blocking Judgement: Poor Diagnostics Vital Signs (24Hr): Vital Signs - 24 hr 01/07/23 20:11 01/08/23 08:20 Temperature 97.2 F 97.8 F Pulse Rate 67 73 Respiratory Rate 16 18 Blood Pressure 117/72 121/62 Pulse Oximetry 93 94 Oxygen Delivery Method Room Air Room Air BMI result Body Mass Index 27.7 Labs 12/03/22 11:52 Medications Medications Current Medications Acetaminophen (Acetaminophen 325 Mg Tablet) 975 mg PO TID [facility] Last Admin: 01/08/23 08:39 Dose: 975 mg Al Hydroxide/Mg Hydroxide (Magnesium Hydrox/Alum Hydrox 30 Ml Oral.Susp) 30 ml PO Q6H PRN PRN Reason: Heartburn/Nausea Donepezil HCl (Donepezil Hcl 10 Mg Tablet) 10 mg PO BEDTIME [facility] Last Admin: 01/07/23 20:12 Dose: 10 mg Hydroxyzine HCl (Hydroxyzine Hcl 25 Mg Tablet) 25 mg PO Q6H PRN PRN Reason: Anxiety Last Admin: 12/26/22 20:07 Dose: 25 mg Lamotrigine (Lamotrigine 25 Mg Tablet) 50 mg PO BID [facility] Last Admin: 01/08/23 08:39 Dose: 50 mg Lidocaine (Lidocaine 4 % Patch Adh..Patch) 1 patch TRANSDERMA DAILY [facility]; Protocol Last Admin: 01/08/23 08:43 Dose: 1 patch Magnesium Hydroxide (Milk Of Magnesia 30 Ml Oral.Susp) 30 ml PO DAILY PRN PRN Reason: Constipation Last Admin: 01/07/23 08:34 Dose: 30 ml Memantine (Memantine Hcl 10 Mg Tablet) 10 mg PO BID [facility] Last Admin: 01/08/23 08:40 Dose: 10 mg Olanzapine (Olanzapine 2.5 Mg Tablet) 2.5 mg PO TID PRN PRN Reason: agitation Last Admin: 12/25/22 20:37 Dose: 2.5 mg Olanzapine (Olanzapine 10 Mg Tablet) 10 mg PO BEDTIME [facility] Last Admin: 01/07/23 20:12 Dose: 10 mg Trazodone HCl (Trazodone Hcl 50 Mg Tablet) 50 mg PO BEDTIME PRN PRN Reason: Insomnia Last Admin: 01/05/23 20:18 Dose: 50 mg Allergies Allergies Allergy/AdvReac Type Severity Reaction Status Date / Time pollen extracts Allergy Unknown unknown Verified 04/21/22 14:56 latex Allergy Rash Verified 10/31/22 18:30 Assessment & Plan Assessment & Plan (1) Bipolar disorder, now depressed: Status: Acute Code(s): F31.30 - Bipolar disorder, current episode depressed, mild or moderate severity, unspecified (2) Cognitive impairment: Status: Acute Code(s): R41.89 - Other symptoms and signs involving cognitive functions and awareness Plan 82 year old male with history hyperlipidemia, tubular adenoma colon (last colonoscopy 12/21), BPH, chronic normocytic anemia, osteoarthritis shoulders and hips s/p b/l hip arthroplasty, chronic low back pain with lumbar stenosis, depression, hx rotator cuff tear, actinic keratosis, and atypical melanocytic hyperplasia admitted to geriatric psychiatry from [facility] with consult placed to medical hospitalist service for medical H&P. 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 Can use ibuprofen 600mg q6h prn as well if topical diclofenac unavailable. #Chronic left hip pain -per ED provider note at [facility], patient foot got stuck in a hole several months ago and fell onto the left hip. Subsequent imaging studies including x-ray of the hip/pelvis and CT of the pelvis are negative for fracture -Pain management as above -outpt follow up Pt refused physical extensive. Extensive review of prior note and records from [facility] conducted as noted above. Plan 1. The patient now has a guardian and we are trying to look for placement since he does not have a home for himself for social support in the community. 2. Continue with Zyprexa as a mood stabilizer. 3. Increase Lamictal up to 25 p.o. b.i.d. on December 17 to target dysphoria. On January 03 we are increasing up to 50 mg p.o. b.i.d. to target depression. 4. Waiting for placement. Reason for continued inpatient stay Substantial Risk for: inability to function, rapid decompensation and med/psych decompensation Time Spent With Patient Time: Total time managing care of this patient today __20__ minutes.
[2023-01-08 18:00] VITALS: BP 113/65; PULSE 62; RESP 18; TEMP 36.6; O2SAT 94
[2023-01-08] MEDS: Donepezil HCl 10 MG TABLET PO (20:04)
[2023-01-08] MEDS: OLANZapine 10 MG TABLET PO (20:04)
[2023-01-08] MEDS: traZODone HCL 50 MG TABLET PO (20:04)
[2023-01-09 08:51] VITALS: BP 129/72; PULSE 75; RESP 18; TEMP 36.6; O2SAT 95
--- NOTE | 2023-01-09 15:36 | P.PNPSI_ITS ---
Subjective Subjective Date of Service: 01/09/23 Reason For Visit: F31.9, F43.25 Subjective Notes: Section 7 and Section 8 Interim History: The nursing staff reported the patient had shown with poor hygiene, he took his medications with encouragement. He has not showered in several days. The licensed clinical social worker reported that he had being financially cleared yet. On interview the patient denies new symptoms, waiting for placement. Mental Status Exam Mental Status Exam Patient Appearance: Appropriate and Unkempt Patient Orientation: Person and Situation Level of Consciousness: Awake Patient Behavior: Guarded and Passive Mood Description: Withdrawn Affect Description: Constricted Patient Cognition Impaired: Yes Ability to Follow Directions: Good Speech Pattern: Clear Hallucinations: None Delusions: Not Present Thought Process: Distracted and Evasive Thought Content: positive for [place] and positive for Poverty of Content Judgement: Poor Diagnostics Vital Signs (24Hr): Vital Signs - 24 hr 01/08/23 18:00 01/09/23 08:51 Temperature 97.8 F 97.9 F Pulse Rate 62 75 Respiratory Rate 18 18 Blood Pressure 113/65 129/72 Pulse Oximetry 94 95 Oxygen Delivery Method Room Air Room Air BMI result Body Mass Index 27.7 Labs 12/03/22 11:52 Medications Medications Current Medications Acetaminophen (Acetaminophen 325 Mg Tablet) 975 mg PO TID [facility] Last Admin: 01/09/23 08:45 Dose: 975 mg Al Hydroxide/Mg Hydroxide (Magnesium Hydrox/Alum Hydrox 30 Ml Oral.Susp) 30 ml PO Q6H PRN PRN Reason: Heartburn/Nausea Donepezil HCl (Donepezil Hcl 10 Mg Tablet) 10 mg PO BEDTIME [facility] Last Admin: 01/08/23 20:04 Dose: 10 mg Hydroxyzine HCl (Hydroxyzine Hcl 25 Mg Tablet) 25 mg PO Q6H PRN PRN Reason: Anxiety Last Admin: 12/26/22 20:07 Dose: 25 mg Lamotrigine (Lamotrigine 25 Mg Tablet) 50 mg PO BID [facility] Last Admin: 01/09/23 08:45 Dose: 50 mg Lidocaine (Lidocaine 4 % Patch Adh..Patch) 1 patch TRANSDERMA DAILY [facility]; Protocol Last Admin: 01/09/23 08:45 Dose: 1 patch Magnesium Hydroxide (Milk Of Magnesia 30 Ml Oral.Susp) 30 ml PO DAILY PRN PRN Reason: Constipation Last Admin: 01/07/23 08:34 Dose: 30 ml Memantine (Memantine Hcl 10 Mg Tablet) 10 mg PO BID [facility] Last Admin: 01/09/23 08:45 Dose: 10 mg Olanzapine (Olanzapine 2.5 Mg Tablet) 2.5 mg PO TID PRN PRN Reason: agitation Last Admin: 12/25/22 20:37 Dose: 2.5 mg Olanzapine (Olanzapine 10 Mg Tablet) 10 mg PO BEDTIME [facility] Last Admin: 01/08/23 20:04 Dose: 10 mg Trazodone HCl (Trazodone Hcl 50 Mg Tablet) 50 mg PO BEDTIME PRN PRN Reason: Insomnia Last Admin: 01/08/23 20:04 Dose: 50 mg Allergies Allergies Allergy/AdvReac Type Severity Reaction Status Date / Time pollen extracts Allergy Unknown unknown Verified 04/21/22 14:56 latex Allergy Rash Verified 10/31/22 18:30 Assessment & Plan Assessment & Plan (1) Bipolar disorder, now depressed: Status: Acute Code(s): F31.30 - Bipolar disorder, current episode depressed, mild or moderate severity, unspecified (2) Cognitive impairment: Status: Acute Code(s): R41.89 - Other symptoms and signs involving cognitive functions and awareness Plan 82 year old male with history hyperlipidemia, tubular adenoma colon (last colonoscopy 12/21), BPH, chronic normocytic anemia, osteoarthritis shoulders and hips s/p b/l hip arthroplasty, chronic low back pain with lumbar stenosis, depression, hx rotator cuff tear, actinic keratosis, and atypical melanocytic hyperplasia admitted to geriatric psychiatry from [facility] with consult placed to medical hospitalist service for medical H&P. 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 Can use ibuprofen 600mg q6h prn as well if topical diclofenac unavailable. #Chronic left hip pain -per ED provider note at [facility], patient foot got stuck in a hole several months ago and fell onto the left hip. Subsequent imaging studies including x-ray of the hip/pelvis and CT of the pelvis are negative for fracture -Pain management as above -outpt follow up Pt refused physical extensive. Extensive review of prior note and records from [facility] conducted as noted above. Plan 1. The patient now has a guardian and we are trying to look for placement since he does not have a home for himself for social support in the community. 2. Continue with Zyprexa as a mood stabilizer. 3. Increase Lamictal up to 25 p.o. b.i.d. on December 17 to target dysphoria. On January 03 we are increasing up to 50 mg p.o. b.i.d. to target depression. 4. Waiting for placement. Reason for continued inpatient stay Substantial Risk for: inability to function, rapid decompensation and med/psych decompensation Time Spent With Patient Time: Total time managing care of this patient today __20__ minutes.
[2023-01-09 18:00] VITALS: BP 97/53; PULSE 64; RESP 16; TEMP 36.9; O2SAT 95
[2023-01-09] MEDS: OLANZapine 10 MG TABLET PO (20:25)
[2023-01-09] MEDS: Memantine HCl 10 MG TABLET PO (20:25)
[2023-01-09] MEDS: traZODone HCL 50 MG TABLET PO (20:25)
[2023-01-09] MEDS: lamoTRIgine 25 MG TABLET 50 MG PO (20:25)
[2023-01-09] MEDS: Donepezil HCl 10 MG TABLET PO (20:26)
[2023-01-09] MEDS: Acetaminophen 325 MG TABLET 975 MG PO (20:26)
[2023-01-10 06:00] VITALS: BP 111/66; PULSE 67; RESP 18; TEMP 36.6; O2SAT 95
[2023-01-10 07:00] VITALS: BMI 27.6
[2023-01-10] MEDS: Acetaminophen 325 MG TABLET 975 MG PO ×3 (08:42→20:23)
[2023-01-10] MEDS: Lidocaine 4 % Patch ADH..PATCH 1 PATCH TRANSDERMA (08:43)
[2023-01-10] MEDS: lamoTRIgine 25 MG TABLET 50 MG PO ×2 (08:43→20:23)
[2023-01-10] MEDS: Memantine HCl 10 MG TABLET PO ×2 (08:43→20:23)
--- NOTE | 2023-01-10 09:20 | P.PNPSI_ITS ---
Subjective Subjective Date of Service: 01/10/23 Reason For Visit: F31.9, F43.25 Subjective Notes: Section 7 and Section 8 Interim History: The nursing staff reported the patient slept only 4 hours, he has to refused to be showered. We are going to encourage him to take care of his hygiene. On interview the patient remains despondent, waiting for placement. We already did the paperwork for [employer], waiting for financial clearance. Mental Status Exam Mental Status Exam Patient Appearance: Unkempt Patient Orientation: Person Level of Consciousness: Awake and Appropriate Patient Behavior: Guarded and Passive Mood Description: Withdrawn Affect Description: Constricted Patient Cognition Impaired: Yes Ability to Follow Directions: Good Speech Pattern: Clear Hallucinations: None Delusions: Not Present Thought Process: Distracted and Slowed Thinking Thought Content: positive for [place] and positive for Poverty of Content Judgement: Poor Diagnostics Vital Signs (24Hr): Vital Signs - 24 hr 01/09/23 18:00 01/10/23 06:00 Temperature 98.5 F 97.8 F Pulse Rate 64 67 Respiratory Rate 16 18 Blood Pressure 97/53 L 111/66 Pulse Oximetry 95 95 Oxygen Delivery Method Room Air Room Air BMI result Body Mass Index 27.7 Labs 12/03/22 11:52 Medications Medications Current Medications Acetaminophen (Acetaminophen 325 Mg Tablet) 975 mg PO TID [facility] Last Admin: 01/10/23 08:42 Dose: 975 mg Al Hydroxide/Mg Hydroxide (Magnesium Hydrox/Alum Hydrox 30 Ml Oral.Susp) 30 ml PO Q6H PRN PRN Reason: Heartburn/Nausea Donepezil HCl (Donepezil Hcl 10 Mg Tablet) 10 mg PO BEDTIME [facility] Last Admin: 01/09/23 20:26 Dose: 10 mg Hydroxyzine HCl (Hydroxyzine Hcl 25 Mg Tablet) 25 mg PO Q6H PRN PRN Reason: Anxiety Last Admin: 12/26/22 20:07 Dose: 25 mg Lamotrigine (Lamotrigine 25 Mg Tablet) 50 mg PO BID [facility] Last Admin: 01/10/23 08:43 Dose: 50 mg Lidocaine (Lidocaine 4 % Patch Adh..Patch) 1 patch TRANSDERMA DAILY [facility]; Protocol Last Admin: 01/10/23 08:43 Dose: 1 patch Magnesium Hydroxide (Milk Of Magnesia 30 Ml Oral.Susp) 30 ml PO DAILY PRN PRN Reason: Constipation Last Admin: 01/07/23 08:34 Dose: 30 ml Memantine (Memantine Hcl 10 Mg Tablet) 10 mg PO BID [facility] Last Admin: 01/10/23 08:43 Dose: 10 mg Olanzapine (Olanzapine 2.5 Mg Tablet) 2.5 mg PO TID PRN PRN Reason: agitation Last Admin: 12/25/22 20:37 Dose: 2.5 mg Olanzapine (Olanzapine 10 Mg Tablet) 10 mg PO BEDTIME [facility] Last Admin: 01/09/23 20:25 Dose: 10 mg Trazodone HCl (Trazodone Hcl 50 Mg Tablet) 50 mg PO BEDTIME PRN PRN Reason: Insomnia Last Admin: 01/09/23 20:25 Dose: 50 mg Allergies Allergies Allergy/AdvReac Type Severity Reaction Status Date / Time pollen extracts Allergy Unknown unknown Verified 04/21/22 14:56 latex Allergy Rash Verified 10/31/22 18:30 Assessment & Plan Assessment & Plan (1) Bipolar disorder, now depressed: Status: Acute Code(s): F31.30 - Bipolar disorder, current episode depressed, mild or moderate severity, unspecified (2) Cognitive impairment: Status: Acute Code(s): R41.89 - Other symptoms and signs involving cognitive functions and awareness Plan 82 year old male with history hyperlipidemia, tubular adenoma colon (last colonoscopy 12/21), BPH, chronic normocytic anemia, osteoarthritis shoulders and hips s/p b/l hip arthroplasty, chronic low back pain with lumbar stenosis, depression, hx rotator cuff tear, actinic keratosis, and atypical melanocytic hyperplasia admitted to geriatric psychiatry from [facility] with consult placed to medical hospitalist service for medical H&P. 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 Can use ibuprofen 600mg q6h prn as well if topical diclofenac unavailable. #Chronic left hip pain -per ED provider note at [facility], patient foot got stuck in a hole several months ago and fell onto the left hip. Subsequent imaging studies including x-ray of the hip/pelvis and CT of the pelvis are negative for fracture -Pain management as above -outpt follow up Pt refused physical extensive. Extensive review of prior note and records from [facility] conducted as noted above. Plan 1. The patient now has a guardian and we are trying to look for placement since he does not have a home for himself for social support in the community. 2. Continue with Zyprexa as a mood stabilizer. 3. Increase Lamictal up to 25 p.o. b.i.d. on December 17 to target dysphoria. On January 03 we are increasing up to 50 mg p.o. b.i.d. to target depression. 4. Waiting for placement. Reason for continued inpatient stay Substantial Risk for: inability to function, rapid decompensation and med/psych decompensation Time Spent With Patient Time: Total time managing care of this patient today __20__ minutes.
[2023-01-10] MEDS: traMADoL HCL 50 MG TABLET PO (17:19)
[2023-01-10 19:40] VITALS: BP 143/72; PULSE 67; RESP 18; TEMP 36.7; O2SAT 97
[2023-01-10] MEDS: Donepezil HCl 10 MG TABLET PO (20:23)
[2023-01-10] MEDS: OLANZapine 10 MG TABLET PO (20:23)
[2023-01-11 06:00] VITALS: BP 141/75; PULSE 63; RESP 18; TEMP 36.8; O2SAT 98
[2023-01-11] MEDS: traMADoL HCL 50 MG TABLET PO (08:02)
[2023-01-11] MEDS: Memantine HCl 10 MG TABLET PO (08:02)
[2023-01-11] MEDS: Acetaminophen 325 MG TABLET 975 MG PO ×2 (08:02→16:40)
[2023-01-11] MEDS: lamoTRIgine 25 MG TABLET 50 MG PO (08:02)
[2023-01-11] MEDS: Lidocaine 4 % Patch ADH..PATCH 1 PATCH TRANSDERMA (08:26)
--- NOTE | 2023-01-11 09:22 | P.PNPSI_ITS ---
Subjective Subjective Date of Service: 01/11/23 Reason For Visit: F31.9, F43.25 Subjective Notes: Section 7 and Section 8 Interim History: The nursing staff reported the patient had been compliant with treatment, no changes on his mental status. He used tramadol for back pain. On interview the patient denies new symptoms, waiting for placement Mental Status Exam Mental Status Exam Patient Appearance: Unkempt Patient Orientation: Person Level of Consciousness: Awake Patient Behavior: Guarded and Passive Mood Description: Withdrawn Affect Description: Constricted Patient Cognition Impaired: Yes Ability to Follow Directions: Good Speech Pattern: Clear Hallucinations: None Delusions: Not Present Thought Process: Distracted Thought Content: positive for [place] and positive for Circumstantial Judgement: Fair Diagnostics Vital Signs (24Hr): Vital Signs - 24 hr 01/10/23 19:40 01/11/23 06:00 Temperature 98.0 F 98.2 F Pulse Rate 67 63 Respiratory Rate 18 18 Blood Pressure 143/72 H 141/75 H Pulse Oximetry 97 98 Oxygen Delivery Method Room Air Room Air BMI result Body Mass Index 27.6 Labs 12/03/22 11:52 Medications Medications Current Medications Acetaminophen (Acetaminophen 325 Mg Tablet) 975 mg PO TID [facility] Last Admin: 01/11/23 08:02 Dose: 975 mg Al Hydroxide/Mg Hydroxide (Magnesium Hydrox/Alum Hydrox 30 Ml Oral.Susp) 30 ml PO Q6H PRN PRN Reason: Heartburn/Nausea Donepezil HCl (Donepezil Hcl 10 Mg Tablet) 10 mg PO BEDTIME [facility] Last Admin: 01/10/23 20:23 Dose: 10 mg Hydroxyzine HCl (Hydroxyzine Hcl 25 Mg Tablet) 25 mg PO Q6H PRN PRN Reason: Anxiety Last Admin: 12/26/22 20:07 Dose: 25 mg Lamotrigine (Lamotrigine 25 Mg Tablet) 50 mg PO BID [facility] Last Admin: 01/11/23 08:02 Dose: 50 mg Lidocaine (Lidocaine 4 % Patch Adh..Patch) 1 patch TRANSDERMA DAILY [facility]; Protocol Last Admin: 01/11/23 08:26 Dose: 1 patch Magnesium Hydroxide (Milk Of Magnesia 30 Ml Oral.Susp) 30 ml PO DAILY PRN PRN Reason: Constipation Last Admin: 01/07/23 08:34 Dose: 30 ml Memantine (Memantine Hcl 10 Mg Tablet) 10 mg PO BID [facility] Last Admin: 01/11/23 08:02 Dose: 10 mg Olanzapine (Olanzapine 2.5 Mg Tablet) 2.5 mg PO TID PRN PRN Reason: agitation Last Admin: 12/25/22 20:37 Dose: 2.5 mg Olanzapine (Olanzapine 10 Mg Tablet) 10 mg PO BEDTIME [facility] Last Admin: 01/10/23 20:23 Dose: 10 mg Tramadol HCl (Tramadol Hcl 50 Mg Tablet) 50 mg PO Q6H PRN PRN Reason: Pain, Moderate(Pain Scale 4-6) Last Admin: 01/11/23 08:02 Dose: 50 mg Trazodone HCl (Trazodone Hcl 50 Mg Tablet) 50 mg PO BEDTIME PRN PRN Reason: Insomnia Last Admin: 01/09/23 20:25 Dose: 50 mg Allergies Allergies Allergy/AdvReac Type Severity Reaction Status Date / Time pollen extracts Allergy Unknown unknown Verified 04/21/22 14:56 latex Allergy Rash Verified 10/31/22 18:30 Assessment & Plan Assessment & Plan (1) Bipolar disorder, now depressed: Status: Acute Code(s): F31.30 - Bipolar disorder, current episode depressed, mild or moderate severity, unspecified (2) Cognitive impairment: Status: Acute Code(s): R41.89 - Other symptoms and signs involving cognitive functions and awareness Plan 82 year old male with history hyperlipidemia, tubular adenoma colon (last colonoscopy 12/21), BPH, chronic normocytic anemia, osteoarthritis shoulders and hips s/p b/l hip arthroplasty, 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 Can use ibuprofen 600mg q6h prn as well if topical diclofenac unavailable. #Chronic left hip pain -per ED provider note at [facility], patient foot got stuck in a hole several months ago and fell onto the left hip. Subsequent imaging studies including x-ray of the hip/pelvis and CT of the pelvis are negative for fracture -Pain management as above -outpt follow up Pt refused physical extensive. Extensive review of prior note and records from [facility] conducted as noted above. Plan 1. The patient now has a guardian and we are trying to look for placement since he does not have a home for himself for social support in the community. 2. Continue with Zyprexa as a mood stabilizer. 3. Increase Lamictal up to 25 p.o. b.i.d. on December 17 to target dysphoria. On January 03 we are increasing up to 50 mg p.o. b.i.d. to target depression. 4. Waiting for placement. Reason for continued inpatient stay Substantial Risk for: inability to function, rapid decompensation and med/psych decompensation Time Spent With Patient Time: Total time managing care of this patient today __20__ minutes.
[2023-01-11 18:00] VITALS: BP 151/79; PULSE 68; RESP 17; TEMP 36.5; O2SAT 97
[2023-01-12 08:05] VITALS: BP 148/67; PULSE 67; RESP 16; TEMP 36; O2SAT 96
[2023-01-12] MEDS: Acetaminophen 325 MG TABLET 975 MG PO ×3 (09:08→20:19)
[2023-01-12] MEDS: Lidocaine 4 % Patch ADH..PATCH 1 PATCH TRANSDERMA (09:08)
[2023-01-12] MEDS: Memantine HCl 10 MG TABLET PO ×2 (09:09→20:20)
[2023-01-12] MEDS: lamoTRIgine 25 MG TABLET 50 MG PO ×2 (09:09→20:20)
[2023-01-12 18:00] VITALS: BP 132/68; PULSE 69; RESP 17; TEMP 36; O2SAT 96
[2023-01-12] MEDS: OLANZapine 10 MG TABLET PO (20:20)
[2023-01-12] MEDS: Donepezil HCl 10 MG TABLET PO (20:20)
--- NOTE | 2023-01-12 21:06 | HO.PSYCHPN ---
Subjective Subjective Date of Service: 01/12/23 Reason For Visit: F31.9, F43.25 Interim History: nursing staff report he is spending a little more time OOB and walking more; he reamiains confused but stable Medication Compliance: Yes Side effects from medications: No Attending Groups: No Review of Systems Acute medical concerns: No Medical Review of Systems: unchanged Review of Systems Review of Systems unremarkable Yes all other systems are reviewed and are negative and Unobtainable due to mental status Mental Status Exam Mental Status Exam Narrative: pleasant. Engaged. Fair self-care. Some cognitive impairment evident. No depression, SI, HI, agitation or psychosis. Patient Appearance: Unkempt Patient Orientation: Person Level of Consciousness: Awake Patient Behavior: Guarded and Passive Mood Description: Withdrawn Affect Description: Constricted Patient Cognition Impaired: Yes Ability to Follow Directions: Good Speech Pattern: Clear Judgement: Poor Diagnostics Vital Signs (24Hr): Vital Signs - 24 hr 01/12/23 08:05 Temperature 96.8 F Pulse Rate 67 Respiratory Rate 16 Blood Pressure 148/67 H Pulse Oximetry 96 Oxygen Delivery Method Room Air BMI result Body Mass Index 27.6 Labs 12/03/22 11:52 Medications Medications Current Medications Acetaminophen (Acetaminophen 325 Mg Tablet) 975 mg PO TID [facility] Last Admin: 01/12/23 20:19 Dose: 975 mg Al Hydroxide/Mg Hydroxide (Magnesium Hydrox/Alum Hydrox 30 Ml Oral.Susp) 30 ml PO Q6H PRN PRN Reason: Heartburn/Nausea Donepezil HCl (Donepezil Hcl 10 Mg Tablet) 10 mg PO BEDTIME [facility] Last Admin: 01/12/23 20:20 Dose: 10 mg Hydroxyzine HCl (Hydroxyzine Hcl 25 Mg Tablet) 25 mg PO Q6H PRN PRN Reason: Anxiety Last Admin: 12/26/22 20:07 Dose: 25 mg Lamotrigine (Lamotrigine 25 Mg Tablet) 50 mg PO BID [facility] Last Admin: 01/12/23 20:20 Dose: 50 mg Lidocaine (Lidocaine 4 % Patch Adh..Patch) 1 patch TRANSDERMA DAILY [facility]; Protocol Last Admin: 01/12/23 09:08 Dose: 1 patch Magnesium Hydroxide (Milk Of Magnesia 30 Ml Oral.Susp) 30 ml PO DAILY PRN PRN Reason: Constipation Last Admin: 01/07/23 08:34 Dose: 30 ml Memantine (Memantine Hcl 10 Mg Tablet) 10 mg PO BID [facility] Last Admin: 01/12/23 20:20 Dose: 10 mg Olanzapine (Olanzapine 2.5 Mg Tablet) 2.5 mg PO TID PRN PRN Reason: agitation Last Admin: 12/25/22 20:37 Dose: 2.5 mg Olanzapine (Olanzapine 10 Mg Tablet) 10 mg PO BEDTIME [facility] Last Admin: 01/12/23 20:20 Dose: 10 mg Tramadol HCl (Tramadol Hcl 50 Mg Tablet) 50 mg PO Q6H PRN PRN Reason: Pain, Moderate(Pain Scale 4-6) Last Admin: 01/11/23 08:02 Dose: 50 mg Trazodone HCl (Trazodone Hcl 50 Mg Tablet) 50 mg PO BEDTIME PRN PRN Reason: Insomnia Last Admin: 01/09/23 20:25 Dose: 50 mg Allergies Allergies Allergy/AdvReac Type Severity Reaction Status Date / Time pollen extracts Allergy Unknown unknown Verified 04/21/22 14:56 latex Allergy Rash Verified 10/31/22 18:30 Assessment & Plan Assessment & Plan (1) Bipolar disorder, now depressed: Status: Acute Code(s): F31.30 - Bipolar disorder, current episode depressed, mild or moderate severity, unspecified (2) Cognitive impairment: Status: Acute Code(s): R41.89 - Other symptoms and signs involving cognitive functions and awareness Plan 82 year old male with history hyperlipidemia, tubular adenoma colon (last colonoscopy 12/21), BPH, chronic normocytic anemia, osteoarthritis shoulders and hips s/p b/l hip arthroplasty, chronic low back pain with lumbar stenosis, depression, hx rotator cuff tear, actinic keratosis, and atypical melanocytic hyperplasia admitted to geriatric psychiatry from [facility] with consult placed to medical hospitalist service for medical H&P. 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 Can use ibuprofen 600mg q6h prn as well if topical diclofenac unavailable. #Chronic left hip pain -per ED provider note at [facility], patient foot got stuck in a hole several months ago and fell onto the left hip. Subsequent imaging studies including x-ray of the hip/pelvis and CT of the pelvis are negative for fracture -Pain management as above -outpt follow up Pt refused physical extensive. Extensive review of prior note and records from [facility] conducted as noted above. Plan 1. The patient now has a guardian and we are trying to look for placement since he does not have a home for himself for social support in the community. 2. Continue with Zyprexa as a mood stabilizer. 3. Increase Lamictal up to 25 p.o. b.i.d. on December 17 to target dysphoria. On January 03 we are increasing up to 50 mg p.o. b.i.d. to target depression. 4. Waiting for placement. 01/12/23 continue current treatment plan Reason for continued inpatient stay Substantial Risk for: inability to function Time Spent With Patient Time: Total time managing care of this patient today ____ minutes.
[2023-01-13 07:55] VITALS: BP 130/60; PULSE 64; RESP 18; TEMP 36.2; O2SAT 97
[2023-01-13] MEDS: lamoTRIgine 25 MG TABLET 50 MG PO ×2 (09:17→20:23)
[2023-01-13] MEDS: Acetaminophen 325 MG TABLET 975 MG PO ×3 (09:18→20:23)
[2023-01-13] MEDS: Lidocaine 4 % Patch ADH..PATCH 1 PATCH TRANSDERMA (09:19)
[2023-01-13] MEDS: Memantine HCl 10 MG TABLET PO ×2 (09:19→20:23)
--- NOTE | 2023-01-13 11:03 | P.PNPSI_ITS ---
Subjective Subjective Date of Service: 01/13/23 Reason For Visit: F31.9, F43.25 Interim History: nursing staff report he is spending a little more time OOB and walking more; he remains confused but stable; alert to self only; Medication Compliance: Yes Side effects from medications: No Attending Groups: Intermittent Review of Systems Acute medical concerns: No Medical Review of Systems: unchanged Review of Systems Review of Systems unremarkable Yes all other systems are reviewed and are negative and Unobtainable due to mental status Mental Status Exam Mental Status Exam Narrative: pleasant. Engaged. Fair self-care. Some cognitive impairment evident. No depression, SI, HI, agitation or psychosis. Patient Appearance: Unkempt Patient Orientation: Person Level of Consciousness: Awake Patient Behavior: Guarded and Passive Mood Description: Withdrawn Affect Description: Constricted Patient Cognition Impaired: Yes Ability to Follow Directions: Good Speech Pattern: Clear Diagnostics Vital Signs (24Hr): Vital Signs - 24 hr 01/12/23 18:00 01/13/23 07:55 Temperature 96.8 F 97.1 F Pulse Rate 69 64 Respiratory Rate 17 18 Blood Pressure 132/68 130/60 Pulse Oximetry 96 97 Oxygen Delivery Method Room Air Room Air BMI result Body Mass Index 27.6 Labs 12/03/22 11:52 Medications Medications Current Medications Acetaminophen (Acetaminophen 325 Mg Tablet) 975 mg PO TID [facility] Last Admin: 01/13/23 09:18 Dose: 975 mg Al Hydroxide/Mg Hydroxide (Magnesium Hydrox/Alum Hydrox 30 Ml Oral.Susp) 30 ml PO Q6H PRN PRN Reason: Heartburn/Nausea Donepezil HCl (Donepezil Hcl 10 Mg Tablet) 10 mg PO BEDTIME [facility] Last Admin: 01/12/23 20:20 Dose: 10 mg Hydroxyzine HCl (Hydroxyzine Hcl 25 Mg Tablet) 25 mg PO Q6H PRN PRN Reason: Anxiety Last Admin: 12/26/22 20:07 Dose: 25 mg Lamotrigine (Lamotrigine 25 Mg Tablet) 50 mg PO BID [facility] Last Admin: 01/13/23 09:17 Dose: 50 mg Lidocaine (Lidocaine 4 % Patch Adh..Patch) 1 patch TRANSDERMA DAILY [facility]; Protocol Last Admin: 01/13/23 09:19 Dose: 1 patch Magnesium Hydroxide (Milk Of Magnesia 30 Ml Oral.Susp) 30 ml PO DAILY PRN PRN Reason: Constipation Last Admin: 01/07/23 08:34 Dose: 30 ml Memantine (Memantine Hcl 10 Mg Tablet) 10 mg PO BID [facility] Last Admin: 01/13/23 09:19 Dose: 10 mg Olanzapine (Olanzapine 2.5 Mg Tablet) 2.5 mg PO TID PRN PRN Reason: agitation Last Admin: 12/25/22 20:37 Dose: 2.5 mg Olanzapine (Olanzapine 10 Mg Tablet) 10 mg PO BEDTIME [facility] Last Admin: 01/12/23 20:20 Dose: 10 mg Tramadol HCl (Tramadol Hcl 50 Mg Tablet) 50 mg PO Q6H PRN PRN Reason: Pain, Moderate(Pain Scale 4-6) Last Admin: 01/11/23 08:02 Dose: 50 mg Trazodone HCl (Trazodone Hcl 50 Mg Tablet) 50 mg PO BEDTIME PRN PRN Reason: Insomnia Last Admin: 01/09/23 20:25 Dose: 50 mg Allergies Allergies Allergy/AdvReac Type Severity Reaction Status Date / Time pollen extracts Allergy Unknown unknown Verified 04/21/22 14:56 latex Allergy Rash Verified 10/31/22 18:30 Assessment & Plan Assessment & Plan (1) Bipolar disorder, now depressed: Status: Acute Code(s): F31.30 - Bipolar disorder, current episode depressed, mild or moderate severity, unspecified (2) Cognitive impairment: Status: Acute Code(s): R41.89 - Other symptoms and signs involving cognitive functions and awareness Plan 82 year old male with history hyperlipidemia, tubular adenoma colon (last colonoscopy 12/21), BPH, chronic normocytic anemia, osteoarthritis shoulders and hips s/p b/l hip arthroplasty, chronic low back pain with lumbar stenosis, depression, hx rotator cuff tear, actinic keratosis, and atypical melanocytic hyperplasia admitted to geriatric psychiatry from [facility] with consult placed to medical hospitalist service for medical H&P. 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 Can use ibuprofen 600mg q6h prn as well if topical diclofenac unavailable. #Chronic left hip pain -per ED provider note at [facility], patient foot got stuck in a hole several months ago and fell onto the left hip. Subsequent imaging studies including x-ray of the hip/pelvis and CT of the pelvis are negative for fracture -Pain management as above -outpt follow up Pt refused physical extensive. Extensive review of prior note and records from [facility] conducted as noted above. Plan 1. The patient now has a guardian and we are trying to look for placement since he does not have a home for himself for social support in the community. 2. Continue with Zyprexa as a mood stabilizer. 3. Increase Lamictal up to 25 p.o. b.i.d. on December 17 to target dysphoria. On January 03 we are increasing up to 50 mg p.o. b.i.d. to target depression. 4. Waiting for placement. 01/12/23 continue current treatment plan 01/13/23 continue treatment plan Reason for continued inpatient stay Substantial Risk for: inability to function and rapid decompensation Time Spent With Patient Time: Total time managing care of this patient today ____ minutes.
[2023-01-13 19:30] VITALS: BP 126/70; PULSE 66; RESP 18; TEMP 36.6; O2SAT 98
[2023-01-13] MEDS: traZODone HCL 50 MG TABLET PO (20:23)
[2023-01-13] MEDS: Donepezil HCl 10 MG TABLET PO (20:23)
[2023-01-13] MEDS: OLANZapine 10 MG TABLET PO (20:23)
[2023-01-14 06:00] VITALS: BP 125/61; PULSE 73; RESP 18; TEMP 36.2; O2SAT 93
[2023-01-14] MEDS: Acetaminophen 325 MG TABLET 975 MG PO ×2 (09:55→20:52)
[2023-01-14] MEDS: Lidocaine 4 % Patch ADH..PATCH 1 PATCH TRANSDERMA (09:55)
[2023-01-14] MEDS: traMADoL HCL 50 MG TABLET PO (09:56)
[2023-01-14] MEDS: lamoTRIgine 25 MG TABLET 50 MG PO ×2 (09:56→20:53)
[2023-01-14] MEDS: Memantine HCl 10 MG TABLET PO ×2 (09:56→20:53)
--- NOTE | 2023-01-14 14:38 | P.PNPSI_ITS ---
Subjective Subjective Date of Service: 01/14/23 Reason For Visit: F31.9, F43.25 Subjective Notes: Section 7 and Section 8 Interim History: The nursing staff reported the patient remains most of the time on his room, no changes in his mental status. He slept well last night. On interview the patient denies new symptoms, waiting for placement. Mental Status Exam Mental Status Exam Patient Appearance: Unkempt Patient Orientation: Person Level of Consciousness: Awake Patient Behavior: Guarded and Passive Mood Description: Withdrawn Affect Description: Constricted Patient Cognition Impaired: Yes Ability to Follow Directions: Good Speech Pattern: Clear Hallucinations: None Delusions: Not Present Thought Process: Distracted and Evasive Thought Content: positive for [place], positive for [place] and positive for Poverty of Content Judgement: Poor Diagnostics Vital Signs (24Hr): Vital Signs - 24 hr 01/13/23 19:30 01/14/23 06:00 Temperature 97.8 F 97.1 F Pulse Rate 66 73 Respiratory Rate 18 18 Blood Pressure 126/70 125/61 Pulse Oximetry 98 93 Oxygen Delivery Method Room Air Room Air BMI result Body Mass Index 27.6 Labs 12/03/22 11:52 Medications Medications Current Medications Acetaminophen (Acetaminophen 325 Mg Tablet) 975 mg PO TID [facility] Last Admin: 01/14/23 09:55 Dose: 975 mg Al Hydroxide/Mg Hydroxide (Magnesium Hydrox/Alum Hydrox 30 Ml Oral.Susp) 30 ml PO Q6H PRN PRN Reason: Heartburn/Nausea Donepezil HCl (Donepezil Hcl 10 Mg Tablet) 10 mg PO BEDTIME [facility] Last Admin: 01/13/23 20:23 Dose: 10 mg Hydroxyzine HCl (Hydroxyzine Hcl 25 Mg Tablet) 25 mg PO Q6H PRN PRN Reason: Anxiety Last Admin: 12/26/22 20:07 Dose: 25 mg Lamotrigine (Lamotrigine 25 Mg Tablet) 50 mg PO BID [facility] Last Admin: 01/14/23 09:56 Dose: 50 mg Lidocaine (Lidocaine 4 % Patch Adh..Patch) 1 patch TRANSDERMA DAILY [facility]; Protocol Last Admin: 01/14/23 09:55 Dose: 1 patch Magnesium Hydroxide (Milk Of Magnesia 30 Ml Oral.Susp) 30 ml PO DAILY PRN PRN Reason: Constipation Last Admin: 01/07/23 08:34 Dose: 30 ml Memantine (Memantine Hcl 10 Mg Tablet) 10 mg PO BID [facility] Last Admin: 01/14/23 09:56 Dose: 10 mg Olanzapine (Olanzapine 2.5 Mg Tablet) 2.5 mg PO TID PRN PRN Reason: agitation Last Admin: 12/25/22 20:37 Dose: 2.5 mg Olanzapine (Olanzapine 10 Mg Tablet) 10 mg PO BEDTIME [facility] Last Admin: 01/13/23 20:23 Dose: 10 mg Tramadol HCl (Tramadol Hcl 50 Mg Tablet) 50 mg PO Q6H PRN PRN Reason: Pain, Moderate(Pain Scale 4-6) Last Admin: 01/14/23 09:56 Dose: 50 mg Trazodone HCl (Trazodone Hcl 50 Mg Tablet) 50 mg PO BEDTIME PRN PRN Reason: Insomnia Last Admin: 01/13/23 20:23 Dose: 50 mg Allergies Allergies Allergy/AdvReac Type Severity Reaction Status Date / Time pollen extracts Allergy Unknown unknown Verified 04/21/22 14:56 latex Allergy Rash Verified 10/31/22 18:30 Assessment & Plan Assessment & Plan (1) Bipolar disorder, now depressed: Status: Acute Code(s): F31.30 - Bipolar disorder, current episode depressed, mild or moderate severity, unspecified (2) Cognitive impairment: Status: Acute Code(s): R41.89 - Other symptoms and signs involving cognitive functions and awareness Plan 82 year old male with history hyperlipidemia, tubular adenoma colon (last colonoscopy 12/21), BPH, chronic normocytic anemia, osteoarthritis shoulders and hips s/p b/l hip arthroplasty, chronic low back pain with lumbar stenosis, depression, hx rotator cuff tear, actinic keratosis, and atypical melanocytic hyperplasia admitted to geriatric psychiatry from [facility] with consult placed to medical hospitalist service for medical H&P. 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 Can use ibuprofen 600mg q6h prn as well if topical diclofenac unavailable. #Chronic left hip pain -per ED provider note at [facility], patient foot got stuck in a hole several months ago and fell onto the left hip. Subsequent imaging studies including x-ray of the hip/pelvis and CT of the pelvis are negative for fracture -Pain management as above -outpt follow up Pt refused physical extensive. Extensive review of prior note and records from [facility] conducted as noted above. Plan 1. The patient now has a guardian and we are trying to look for placement since he does not have a home for himself for social support in the community. 2. Continue with Zyprexa as a mood stabilizer. 3. Increase Lamictal up to 25 p.o. b.i.d. on December 17 to target dysphoria. On January 03 we are increasing up to 50 mg p.o. b.i.d. to target depression. 4. Waiting for placement. Reason for continued inpatient stay Substantial Risk for: inability to function, rapid decompensation and med/psych decompensation Time Spent With Patient Time: Total time managing care of this patient today __20__ minutes.
[2023-01-14 18:00] VITALS: BP 93/53; PULSE 63; RESP 17; TEMP 36.3; O2SAT 95
[2023-01-14] MEDS: Donepezil HCl 10 MG TABLET PO (20:53)
[2023-01-14] MEDS: OLANZapine 10 MG TABLET PO (20:53)
[2023-01-15 06:00] VITALS: BP 122/70; PULSE 72; RESP 18; TEMP 36.6; O2SAT 94
[2023-01-15] MEDS: traMADoL HCL 50 MG TABLET PO (09:43)
[2023-01-15] MEDS: bisacodyL 5 MG TABLET.DR 10 MG PO (09:43)
[2023-01-15] MEDS: Memantine HCl 10 MG TABLET PO ×2 (09:43→20:14)
[2023-01-15] MEDS: Acetaminophen 325 MG TABLET 975 MG PO ×3 (09:44→20:13)
[2023-01-15] MEDS: lamoTRIgine 25 MG TABLET 50 MG PO ×2 (09:45→20:13)
[2023-01-15] MEDS: Lidocaine 4 % Patch ADH..PATCH 1 PATCH TRANSDERMA (09:45)
--- NOTE | 2023-01-15 13:55 | HO.PSYCHPN ---
Subjective Subjective Date of Service: 01/15/23 Reason For Visit: F31.9, F43.25 Subjective Notes: Section 7 and Section 8 Interim History: The nursing staff reported the patient has been isolative, complains of constipation. The high school social studies tutor reported the main barrier for discharge she has financial. On interview the patient denies new symptoms, I order Dulcolax p.r.n. constipation. Mental Status Exam Mental Status Exam Patient Appearance: Appropriate and Unkempt Patient Orientation: Person and Situation Level of Consciousness: Awake Patient Behavior: Guarded and Passive Mood Description: Withdrawn Affect Description: Constricted Patient Cognition Impaired: Yes Ability to Follow Directions: Good Speech Pattern: Clear Hallucinations: None Delusions: Not Present Thought Process: Linear Thought Content: positive for [place] and positive for Poverty of Content Judgement: Poor Diagnostics Vital Signs (24Hr): Vital Signs - 24 hr 01/14/23 18:00 01/15/23 06:00 Temperature 97.3 F 97.8 F Pulse Rate 63 72 Respiratory Rate 17 18 Blood Pressure 93/53 L 122/70 Pulse Oximetry 95 94 Oxygen Delivery Method Room Air Room Air BMI result Body Mass Index 27.6 Labs 12/03/22 11:52 Medications Medications Current Medications Acetaminophen (Acetaminophen 325 Mg Tablet) 975 mg PO TID [facility] Last Admin: 01/15/23 09:44 Dose: 975 mg Al Hydroxide/Mg Hydroxide (Magnesium Hydrox/Alum Hydrox 30 Ml Oral.Susp) 30 ml PO Q6H PRN PRN Reason: Heartburn/Nausea Bisacodyl (Bisacodyl 5 Mg Tablet.Dr) 10 mg PO DAILY PRN PRN Reason: Constipation Last Admin: 01/15/23 09:43 Dose: 10 mg Donepezil HCl (Donepezil Hcl 10 Mg Tablet) 10 mg PO BEDTIME [facility] Last Admin: 01/14/23 20:53 Dose: 10 mg Hydroxyzine HCl (Hydroxyzine Hcl 25 Mg Tablet) 25 mg PO Q6H PRN PRN Reason: Anxiety Last Admin: 12/26/22 20:07 Dose: 25 mg Lamotrigine (Lamotrigine 25 Mg Tablet) 50 mg PO BID [facility] Last Admin: 01/15/23 09:45 Dose: 50 mg Lidocaine (Lidocaine 4 % Patch Adh..Patch) 1 patch TRANSDERMA DAILY [facility]; Protocol Last Admin: 01/15/23 09:45 Dose: 1 patch Magnesium Hydroxide (Milk Of Magnesia 30 Ml Oral.Susp) 30 ml PO DAILY PRN PRN Reason: Constipation Last Admin: 01/07/23 08:34 Dose: 30 ml Memantine (Memantine Hcl 10 Mg Tablet) 10 mg PO BID [facility] Last Admin: 01/15/23 09:43 Dose: 10 mg Olanzapine (Olanzapine 2.5 Mg Tablet) 2.5 mg PO TID PRN PRN Reason: agitation Last Admin: 12/25/22 20:37 Dose: 2.5 mg Olanzapine (Olanzapine 10 Mg Tablet) 10 mg PO BEDTIME [facility] Last Admin: 01/14/23 20:53 Dose: 10 mg Tramadol HCl (Tramadol Hcl 50 Mg Tablet) 50 mg PO Q6H PRN PRN Reason: Pain, Moderate(Pain Scale 4-6) Last Admin: 01/15/23 09:43 Dose: 50 mg Trazodone HCl (Trazodone Hcl 50 Mg Tablet) 50 mg PO BEDTIME PRN PRN Reason: Insomnia Last Admin: 01/13/23 20:23 Dose: 50 mg Allergies Allergies Allergy/AdvReac Type Severity Reaction Status Date / Time pollen extracts Allergy Unknown unknown Verified 04/21/22 14:56 latex Allergy Rash Verified 10/31/22 18:30 Assessment & Plan Assessment & Plan (1) Bipolar disorder, now depressed: Status: Acute Code(s): F31.30 - Bipolar disorder, current episode depressed, mild or moderate severity, unspecified (2) Cognitive impairment: Status: Acute Code(s): R41.89 - Other symptoms and signs involving cognitive functions and awareness Plan 82 year old male with history hyperlipidemia, tubular adenoma colon (last colonoscopy 12/21), BPH, chronic normocytic anemia, osteoarthritis shoulders and hips s/p b/l hip arthroplasty, chronic low back pain with lumbar stenosis, depression, hx rotator cuff tear, actinic keratosis, and atypical melanocytic hyperplasia admitted to geriatric psychiatry from [facility] with consult placed to medical hospitalist service for medical H&P. 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 Can use ibuprofen 600mg q6h prn as well if topical diclofenac unavailable. #Chronic left hip pain -per ED provider note at [facility], patient foot got stuck in a hole several months ago and fell onto the left hip. Subsequent imaging studies including x-ray of the hip/pelvis and CT of the pelvis are negative for fracture -Pain management as above -outpt follow up Pt refused physical extensive. Extensive review of prior note and records from [facility] conducted as noted above. Plan 1. The patient now has a guardian and we are trying to look for placement since he does not have a home for himself for social support in the community. 2. Continue with Zyprexa as a mood stabilizer. 3. Increase Lamictal up to 25 p.o. b.i.d. on December 17 to target dysphoria. On January 03 we are increasing up to 50 mg p.o. b.i.d. to target depression. 4. Waiting for placement. 5. Dulcolax p.r.n. constipation Reason for continued inpatient stay Substantial Risk for: inability to function, rapid decompensation and med/psych decompensation Time Spent With Patient Time: Total time managing care of this patient today __20__ minutes.
[2023-01-15 18:00] VITALS: BP 110/68; PULSE 62; RESP 18; TEMP 36.2; O2SAT 62
[2023-01-15] MEDS: Donepezil HCl 10 MG TABLET PO (20:13)
[2023-01-15] MEDS: OLANZapine 10 MG TABLET PO (20:14)
[2023-01-16 06:00] VITALS: BP 118/67; PULSE 76; RESP 18; TEMP 36.2; O2SAT 98
--- NOTE | 2023-01-16 08:05 | P.PNPSI_ITS ---
Subjective Subjective Date of Service: 01/16/23 Reason For Visit: F31.9, F43.25 Subjective Notes: Section 7 and Section 8 Interim History: The nursing staff reported the patient had been compliant with treatment, he have slept well last night. He remains confused, easily redirectable. On interview the patient denies new symptoms, waiting for placement. Mental Status Exam Mental Status Exam Patient Appearance: Appropriate and Unkempt Patient Orientation: Person and Situation Level of Consciousness: Awake Patient Behavior: Guarded and Passive Mood Description: Withdrawn Affect Description: Blunted Patient Cognition Impaired: Yes Ability to Follow Directions: Good Speech Pattern: Clear Hallucinations: None Delusions: Not Present Thought Process: Distracted and Slowed Thinking Thought Content: positive for [place] and positive for Poverty of Content Judgement: Poor Diagnostics Vital Signs (24Hr): Vital Signs - 24 hr 01/15/23 18:00 Temperature 97.2 F Pulse Rate 62 Respiratory Rate 18 Blood Pressure 110/68 Pulse Oximetry 62 L Oxygen Delivery Method Room Air BMI result Body Mass Index 27.6 Labs 12/03/22 11:52 Medications Medications Current Medications Acetaminophen (Acetaminophen 325 Mg Tablet) 975 mg PO TID [facility] Last Admin: 01/15/23 20:13 Dose: 975 mg Al Hydroxide/Mg Hydroxide (Magnesium Hydrox/Alum Hydrox 30 Ml Oral.Susp) 30 ml PO Q6H PRN PRN Reason: Heartburn/Nausea Bisacodyl (Bisacodyl 5 Mg Tablet.Dr) 10 mg PO DAILY PRN PRN Reason: Constipation Last Admin: 01/15/23 09:43 Dose: 10 mg Donepezil HCl (Donepezil Hcl 10 Mg Tablet) 10 mg PO BEDTIME [facility] Last Admin: 01/15/23 20:13 Dose: 10 mg Hydroxyzine HCl (Hydroxyzine Hcl 25 Mg Tablet) 25 mg PO Q6H PRN PRN Reason: Anxiety Last Admin: 12/26/22 20:07 Dose: 25 mg Lamotrigine (Lamotrigine 25 Mg Tablet) 50 mg PO BID [facility] Last Admin: 01/15/23 20:13 Dose: 50 mg Lidocaine (Lidocaine 4 % Patch Adh..Patch) 1 patch TRANSDERMA DAILY [facility]; Protocol Last Admin: 01/15/23 09:45 Dose: 1 patch Magnesium Hydroxide (Milk Of Magnesia 30 Ml Oral.Susp) 30 ml PO DAILY PRN PRN Reason: Constipation Last Admin: 01/07/23 08:34 Dose: 30 ml Memantine (Memantine Hcl 10 Mg Tablet) 10 mg PO BID [facility] Last Admin: 01/15/23 20:14 Dose: 10 mg Olanzapine (Olanzapine 2.5 Mg Tablet) 2.5 mg PO TID PRN PRN Reason: agitation Last Admin: 12/25/22 20:37 Dose: 2.5 mg Olanzapine (Olanzapine 10 Mg Tablet) 10 mg PO BEDTIME [facility] Last Admin: 01/15/23 20:14 Dose: 10 mg Trazodone HCl (Trazodone Hcl 50 Mg Tablet) 50 mg PO BEDTIME PRN PRN Reason: Insomnia Last Admin: 01/13/23 20:23 Dose: 50 mg Allergies Allergies Allergy/AdvReac Type Severity Reaction Status Date / Time pollen extracts Allergy Unknown unknown Verified 04/21/22 14:56 latex Allergy Rash Verified 10/31/22 18:30 Assessment & Plan Assessment & Plan (1) Bipolar disorder, now depressed: Status: Acute Code(s): F31.30 - Bipolar disorder, current episode depressed, mild or moderate severity, unspecified (2) Cognitive impairment: Status: Acute Code(s): R41.89 - Other symptoms and signs involving cognitive functions and awareness Plan 82 year old male with history hyperlipidemia, tubular adenoma colon (last colonoscopy 12/21), BPH, chronic normocytic anemia, osteoarthritis shoulders and hips s/p b/l hip arthroplasty, chronic low back pain with lumbar stenosis, depression, hx rotator cuff tear, actinic keratosis, and atypical melanocytic hyperplasia admitted to geriatric psychiatry from [facility] with consult placed to medical hospitalist service for medical H&P. 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 Can use ibuprofen 600mg q6h prn as well if topical diclofenac unavailable. #Chronic left hip pain -per ED provider note at [facility], patient foot got stuck in a hole several months ago and fell onto the left hip. Subsequent imaging studies including x-ray of the hip/pelvis and CT of the pelvis are negative for fracture -Pain management as above -outpt follow up Pt refused physical extensive. Extensive review of prior note and records from [facility] conducted as noted above. Plan 1. The patient now has a guardian and we are trying to look for placement since he does not have a home for himself for social support in the community. 2. Continue with Zyprexa as a mood stabilizer. 3. Increase Lamictal up to 25 p.o. b.i.d. on December 17 to target dysphoria. On January 03 we are increasing up to 50 mg p.o. b.i.d. to target depression. 4. Waiting for placement. 5. Dulcolax p.r.n. constipation Reason for continued inpatient stay Substantial Risk for: inability to function, rapid decompensation and med/psych decompensation Time Spent With Patient Time: Total time managing care of this patient today _20___ minutes.
[2023-01-16] MEDS: Milk of Magnesia 30 ML ORAL.SUSP PO (08:22)
[2023-01-16] MEDS: Acetaminophen 325 MG TABLET 975 MG PO ×2 (08:22→20:37)
[2023-01-16] MEDS: Lidocaine 4 % Patch ADH..PATCH 1 PATCH TRANSDERMA (08:23)
[2023-01-16] MEDS: Memantine HCl 10 MG TABLET PO ×2 (08:23→20:39)
[2023-01-16] MEDS: lamoTRIgine 25 MG TABLET 50 MG PO ×2 (08:23→20:39)
[2023-01-16 19:45] VITALS: BP 127/60; PULSE 73; RESP 17; TEMP 36.7; O2SAT 93
[2023-01-16] MEDS: OLANZapine 10 MG TABLET PO (20:39)
[2023-01-16] MEDS: Donepezil HCl 10 MG TABLET PO (20:39)
[2023-01-16] MEDS: traZODone HCL 50 MG TABLET PO (20:39)
[2023-01-17 07:00] VITALS: BMI 27.4
[2023-01-17] MEDS: lamoTRIgine 25 MG TABLET 50 MG PO (09:12)
[2023-01-17] MEDS: Acetaminophen 325 MG TABLET 975 MG PO ×2 (09:12→14:53)
[2023-01-17] MEDS: Memantine HCl 10 MG TABLET PO (09:12)
[2023-01-17 09:15] VITALS: BP 110/70; PULSE 73; RESP 16; TEMP 36.5; O2SAT 96
--- NOTE | 2023-01-17 14:32 | HO.PSYCHPN ---
Subjective Subjective Date of Service: 01/17/23 Reason For Visit: F31.9, F43.25 Subjective Notes: Section 7 and Section 8 Interim History: The nursing staff reported no changes in his mental status, pleasant, compliant with treatment. On interview the patient denies new symptoms, waiting for placement. Mental Status Exam Mental Status Exam Patient Appearance: Unkempt Patient Orientation: Person and Situation Level of Consciousness: Awake Patient Behavior: Guarded and Passive Mood Description: Withdrawn Affect Description: Constricted Patient Cognition Impaired: Yes Ability to Follow Directions: Good Speech Pattern: Clear Hallucinations: None Delusions: Not Present Thought Process: Distracted and Linear Thought Content: positive for [place] and positive for Circumstantial Judgement: Fair Diagnostics Vital Signs (24Hr): Vital Signs - 24 hr 01/16/23 19:45 01/17/23 09:15 Temperature 98.0 F 97.7 F Pulse Rate 73 73 Respiratory Rate 17 16 Blood Pressure 127/60 110/70 Pulse Oximetry 93 96 Oxygen Delivery Method Room Air Room Air BMI result Body Mass Index 27.6 Labs 12/03/22 11:52 Medications Medications Current Medications Acetaminophen (Acetaminophen 325 Mg Tablet) 975 mg PO TID [facility] Last Admin: 01/17/23 09:12 Dose: 975 mg Al Hydroxide/Mg Hydroxide (Magnesium Hydrox/Alum Hydrox 30 Ml Oral.Susp) 30 ml PO Q6H PRN PRN Reason: Heartburn/Nausea Bisacodyl (Bisacodyl 5 Mg Tablet.Dr) 10 mg PO DAILY PRN PRN Reason: Constipation Last Admin: 01/15/23 09:43 Dose: 10 mg Donepezil HCl (Donepezil Hcl 10 Mg Tablet) 10 mg PO BEDTIME [facility] Last Admin: 01/16/23 20:39 Dose: 10 mg Hydroxyzine HCl (Hydroxyzine Hcl 25 Mg Tablet) 25 mg PO Q6H PRN PRN Reason: Anxiety Last Admin: 12/26/22 20:07 Dose: 25 mg Lamotrigine (Lamotrigine 25 Mg Tablet) 50 mg PO BID [facility] Last Admin: 01/17/23 09:12 Dose: 50 mg Lidocaine (Lidocaine 4 % Patch Adh..Patch) 1 patch TRANSDERMA DAILY [facility]; Protocol Last Admin: 01/17/23 11:35 Dose: Not Given Magnesium Hydroxide (Milk Of Magnesia 30 Ml Oral.Susp) 30 ml PO DAILY PRN PRN Reason: Constipation Last Admin: 01/16/23 08:22 Dose: 30 ml Memantine (Memantine Hcl 10 Mg Tablet) 10 mg PO BID [facility] Last Admin: 01/17/23 09:12 Dose: 10 mg Olanzapine (Olanzapine 2.5 Mg Tablet) 2.5 mg PO TID PRN PRN Reason: agitation Last Admin: 12/25/22 20:37 Dose: 2.5 mg Olanzapine (Olanzapine 10 Mg Tablet) 10 mg PO BEDTIME [facility] Last Admin: 01/16/23 20:39 Dose: 10 mg Trazodone HCl (Trazodone Hcl 50 Mg Tablet) 50 mg PO BEDTIME PRN PRN Reason: Insomnia Last Admin: 01/16/23 20:39 Dose: 50 mg Allergies Allergies Allergy/AdvReac Type Severity Reaction Status Date / Time pollen extracts Allergy Unknown unknown Verified 04/21/22 14:56 latex Allergy Rash Verified 10/31/22 18:30 Assessment & Plan Assessment & Plan (1) Bipolar disorder, now depressed: Status: Acute Code(s): F31.30 - Bipolar disorder, current episode depressed, mild or moderate severity, unspecified (2) Cognitive impairment: Status: Acute Code(s): R41.89 - Other symptoms and signs involving cognitive functions and awareness Plan 82 year old male with history hyperlipidemia, tubular adenoma colon (last colonoscopy 12/21), BPH, chronic normocytic anemia, osteoarthritis shoulders and hips s/p b/l hip arthroplasty, chronic low back pain with lumbar stenosis, depression, hx rotator cuff tear, actinic keratosis, and atypical melanocytic hyperplasia admitted to geriatric psychiatry from [facility] with consult placed to medical hospitalist service for medical H&P. 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 Can use ibuprofen 600mg q6h prn as well if topical diclofenac unavailable. #Chronic left hip pain -per ED provider note at [facility], patient foot got stuck in a hole several months ago and fell onto the left hip. Subsequent imaging studies including x-ray of the hip/pelvis and CT of the pelvis are negative for fracture -Pain management as above -outpt follow up Pt refused physical extensive. Extensive review of prior note and records from [facility] conducted as noted above. Plan 1. The patient now has a guardian and we are trying to look for placement since he does not have a home for himself for social support in the community. 2. Continue with Zyprexa as a mood stabilizer. 3. Increase Lamictal up to 25 p.o. b.i.d. on December 17 to target dysphoria. On January 03 we are increasing up to 50 mg p.o. b.i.d. to target depression. 4. Waiting for placement. 5. Dulcolax p.r.n. constipation Reason for continued inpatient stay Substantial Risk for: inability to function, rapid decompensation and med/psych decompensation Time Spent With Patient Time: Total time managing care of this patient today __20__ minutes.
[2023-01-17 18:00] VITALS: BP 127/62; PULSE 60; RESP 18; TEMP 36.4; O2SAT 98
[2023-01-18 06:00] VITALS: BP 116/62; PULSE 69; RESP 18; TEMP 36.3; O2SAT 95
[2023-01-18] MEDS: Lidocaine 4 % Patch ADH..PATCH 1 PATCH TRANSDERMA (08:37)
[2023-01-18] MEDS: Memantine HCl 10 MG TABLET PO ×2 (08:38→20:47)
[2023-01-18] MEDS: Acetaminophen 325 MG TABLET 975 MG PO ×2 (08:38→14:29)
[2023-01-18] MEDS: lamoTRIgine 25 MG TABLET 50 MG PO ×2 (08:38→20:46)
--- NOTE | 2023-01-18 13:08 | P.PNPSI_ITS ---
Subjective Subjective Date of Service: 01/18/23 Reason For Visit: F31.9, F43.25 Subjective Notes: Section 7 and Section 8 Interim History: The nursing staff reported the patient has been isolative no changes in his mental status. On interview the patient denies new symptoms, waiting for placement. Mental Status Exam Mental Status Exam Patient Appearance: Appropriate and Unkempt Patient Orientation: Person and Situation Level of Consciousness: Awake Patient Behavior: Guarded and Passive Mood Description: Withdrawn Affect Description: Constricted Patient Cognition Impaired: Yes Ability to Follow Directions: Good Speech Pattern: Clear Hallucinations: None Delusions: Ideas of Reference Thought Process: Distracted and Slowed Thinking Thought Content: positive for [place] and positive for [place] of Content Judgement: Fair Diagnostics Vital Signs (24Hr): Vital Signs - 24 hr 01/17/23 18:00 01/18/23 06:00 Temperature 97.5 F 97.4 F Pulse Rate 60 69 Respiratory Rate 18 18 Blood Pressure 127/62 116/62 Pulse Oximetry 98 95 Oxygen Delivery Method Room Air Room Air BMI result Body Mass Index 27.4 Labs 12/03/22 11:52 Medications Medications Current Medications Acetaminophen (Acetaminophen 325 Mg Tablet) 975 mg PO TID [facility] Last Admin: 01/18/23 08:38 Dose: 975 mg Al Hydroxide/Mg Hydroxide (Magnesium Hydrox/Alum Hydrox 30 Ml Oral.Susp) 30 ml PO Q6H PRN PRN Reason: Heartburn/Nausea Bisacodyl (Bisacodyl 5 Mg Tablet.Dr) 10 mg PO DAILY PRN PRN Reason: Constipation Last Admin: 01/15/23 09:43 Dose: 10 mg Donepezil HCl (Donepezil Hcl 10 Mg Tablet) 10 mg PO BEDTIME [facility] Last Admin: 01/17/23 21:32 Dose: Not Given Hydroxyzine HCl (Hydroxyzine Hcl 25 Mg Tablet) 25 mg PO Q6H PRN PRN Reason: Anxiety Last Admin: 12/26/22 20:07 Dose: 25 mg Lamotrigine (Lamotrigine 25 Mg Tablet) 50 mg PO BID [facility] Last Admin: 01/18/23 08:38 Dose: 50 mg Lidocaine (Lidocaine 4 % Patch Adh..Patch) 1 patch TRANSDERMA DAILY [facility]; Protocol Last Admin: 01/18/23 08:37 Dose: 1 patch Magnesium Hydroxide (Milk Of Magnesia 30 Ml Oral.Susp) 30 ml PO DAILY PRN PRN Reason: Constipation Last Admin: 01/16/23 08:22 Dose: 30 ml Memantine (Memantine Hcl 10 Mg Tablet) 10 mg PO BID [facility] Last Admin: 01/18/23 08:38 Dose: 10 mg Olanzapine (Olanzapine 2.5 Mg Tablet) 2.5 mg PO TID PRN PRN Reason: agitation Last Admin: 12/25/22 20:37 Dose: 2.5 mg Olanzapine (Olanzapine 10 Mg Tablet) 10 mg PO BEDTIME [facility] Last Admin: 01/17/23 21:32 Dose: Not Given Trazodone HCl (Trazodone Hcl 50 Mg Tablet) 50 mg PO BEDTIME PRN PRN Reason: Insomnia Last Admin: 01/16/23 20:39 Dose: 50 mg Allergies Allergies Allergy/AdvReac Type Severity Reaction Status Date / Time pollen extracts Allergy Unknown unknown Verified 04/21/22 14:56 latex Allergy Rash Verified 10/31/22 18:30 Assessment & Plan Assessment & Plan (1) Bipolar disorder, now depressed: Status: Acute Code(s): F31.30 - Bipolar disorder, current episode depressed, mild or moderate severity, unspecified (2) Cognitive impairment: Status: Acute Code(s): R41.89 - Other symptoms and signs involving cognitive functions and awareness Plan 82 year old male with history hyperlipidemia, tubular adenoma colon (last colonoscopy 12/21), BPH, chronic normocytic anemia, osteoarthritis shoulders and hips s/p b/l hip arthroplasty, chronic low back pain with lumbar stenosis, depression, hx rotator cuff tear, actinic keratosis, and atypical melanocytic hyperplasia admitted to geriatric psychiatry from [facility] with consult placed to medical hospitalist service for medical H&P. 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 Can use ibuprofen 600mg q6h prn as well if topical diclofenac unavailable. #Chronic left hip pain -per ED provider note at [facility], patient foot got stuck in a hole several months ago and fell onto the left hip. Subsequent imaging studies including x-ray of the hip/pelvis and CT of the pelvis are negative for fracture -Pain management as above -outpt follow up Pt refused physical extensive. Extensive review of prior note and records from [facility] conducted as noted above. Plan 1. The patient now has a guardian and we are trying to look for placement since he does not have a home for himself for social support in the community. 2. Continue with Zyprexa as a mood stabilizer. 3. Increase Lamictal up to 25 p.o. b.i.d. on December 17 to target dysphoria. On January 03 we are increasing up to 50 mg p.o. b.i.d. to target depression. 4. Waiting for placement. 5. Dulcolax p.r.n. constipation Reason for continued inpatient stay Substantial Risk for: inability to function, rapid decompensation and med/psych decompensation Time Spent With Patient Time: Total time managing care of this patient today __20__ minutes.
[2023-01-18 18:00] VITALS: BP 126/60; PULSE 68; RESP 16; TEMP 36.2; O2SAT 97
[2023-01-18] MEDS: Donepezil HCl 10 MG TABLET PO (20:46)
[2023-01-18] MEDS: OLANZapine 10 MG TABLET PO (20:46)
[2023-01-19 06:00] VITALS: BP 132/73; PULSE 70; RESP 16; TEMP 36.5; O2SAT 97
[2023-01-19] MEDS: Lidocaine 4 % Patch ADH..PATCH 1 PATCH TRANSDERMA (09:05)
[2023-01-19] MEDS: Memantine HCl 10 MG TABLET PO ×2 (09:06→20:37)
[2023-01-19] MEDS: lamoTRIgine 25 MG TABLET 50 MG PO ×2 (09:06→20:37)
[2023-01-19] MEDS: Acetaminophen 325 MG TABLET 975 MG PO ×2 (09:06→14:46)
[2023-01-19 19:35] VITALS: BP 111/56; PULSE 66; RESP 16; TEMP 35.6; O2SAT 96
[2023-01-19] MEDS: OLANZapine 10 MG TABLET PO (20:37)
[2023-01-19] MEDS: Donepezil HCl 10 MG TABLET PO (20:37)
--- NOTE | 2023-01-20 00:18 | HO.PSYCHPN ---
Subjective Subjective Date of Service: 01/19/23 Reason For Visit: F31.9, F43.25 Subjective Notes: Section 7 and Section 8 Interim History: The patient minimally social on the unit his on a Section 8 pending placement no complaint when seen Mental Status Exam Mental Status Exam Patient Appearance: Appropriate Patient Orientation: Person and Situation Level of Consciousness: Awake Patient Behavior: Guarded and Passive Mood Description: Withdrawn Affect Description: Constricted and Flat Patient Cognition Impaired: Yes Ability to Follow Directions: Good Speech Pattern: Clear Hallucinations: None Delusions: Ideas of Reference Thought Process: Distracted and Slowed Thinking Thought Content: positive for [place] and positive for Poverty of Content Judgement: Fair Diagnostics Vital Signs (24Hr): Vital Signs - 24 hr 01/19/23 06:00 01/19/23 19:35 Temperature 97.7 F 96.1 F L Pulse Rate 70 66 Respiratory Rate 16 16 Blood Pressure 132/73 111/56 L Pulse Oximetry 97 96 Oxygen Delivery Method Room Air Room Air BMI result Body Mass Index 27.4 Labs 12/03/22 11:52 Medications Medications Current Medications Acetaminophen (Acetaminophen 325 Mg Tablet) 975 mg PO TID [facility] Last Admin: 01/19/23 20:38 Dose: Not Given Al Hydroxide/Mg Hydroxide (Magnesium Hydrox/Alum Hydrox 30 Ml Oral.Susp) 30 ml PO Q6H PRN PRN Reason: Heartburn/Nausea Bisacodyl (Bisacodyl 5 Mg Tablet.Dr) 10 mg PO DAILY PRN PRN Reason: Constipation Last Admin: 01/15/23 09:43 Dose: 10 mg Donepezil HCl (Donepezil Hcl 10 Mg Tablet) 10 mg PO BEDTIME [facility] Last Admin: 01/19/23 20:37 Dose: 10 mg Hydroxyzine HCl (Hydroxyzine Hcl 25 Mg Tablet) 25 mg PO Q6H PRN PRN Reason: Anxiety Last Admin: 12/26/22 20:07 Dose: 25 mg Lamotrigine (Lamotrigine 25 Mg Tablet) 50 mg PO BID [facility] Last Admin: 01/19/23 20:37 Dose: 50 mg Lidocaine (Lidocaine 4 % Patch Adh..Patch) 1 patch TRANSDERMA DAILY [facility]; Protocol Last Admin: 01/19/23 09:05 Dose: 1 patch Magnesium Hydroxide (Milk Of Magnesia 30 Ml Oral.Susp) 30 ml PO DAILY PRN PRN Reason: Constipation Last Admin: 01/16/23 08:22 Dose: 30 ml Memantine (Memantine Hcl 10 Mg Tablet) 10 mg PO BID [facility] Last Admin: 01/19/23 20:37 Dose: 10 mg Olanzapine (Olanzapine 2.5 Mg Tablet) 2.5 mg PO TID PRN PRN Reason: agitation Last Admin: 12/25/22 20:37 Dose: 2.5 mg Olanzapine (Olanzapine 10 Mg Tablet) 10 mg PO BEDTIME [facility] Last Admin: 01/19/23 20:37 Dose: 10 mg Allergies Allergies Allergy/AdvReac Type Severity Reaction Status Date / Time pollen extracts Allergy Unknown unknown Verified 04/21/22 14:56 latex Allergy Rash Verified 10/31/22 18:30 Assessment & Plan Assessment & Plan (1) Bipolar disorder, now depressed: Status: Acute Code(s): F31.30 - Bipolar disorder, current episode depressed, mild or moderate severity, unspecified (2) Cognitive impairment: Status: Acute Code(s): R41.89 - Other symptoms and signs involving cognitive functions and awareness Plan 82 year old male with history hyperlipidemia, tubular adenoma colon (last colonoscopy 12/21), BPH, chronic normocytic anemia, osteoarthritis shoulders and hips s/p b/l hip arthroplasty, chronic low back pain with lumbar stenosis, depression, hx rotator cuff tear, actinic keratosis, and atypical melanocytic hyperplasia admitted to geriatric psychiatry from [facility] with consult placed to medical hospitalist service for medical H&P. 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 Can use ibuprofen 600mg q6h prn as well if topical diclofenac unavailable. #Chronic left hip pain -per ED provider note at [facility], patient foot got stuck in a hole several months ago and fell onto the left hip. Subsequent imaging studies including x-ray of the hip/pelvis and CT of the pelvis are negative for fracture -Pain management as above -outpt follow up Pt refused physical extensive. Extensive review of prior note and records from [facility] conducted as noted above. Plan 1. The patient now has a guardian and we are trying to look for placement since he does not have a home for himself for social support in the community. 2. Continue with Zyprexa as a mood stabilizer. 3. Increase Lamictal up to 25 p.o. b.i.d. on December 17 to target dysphoria. On January 03 we are increasing up to 50 mg p.o. b.i.d. to target depression. 4. Waiting for placement. 5. Dulcolax p.r.n. constipation 01/21/2023 Continue plan of care discharge plan patient flat dysphoric Reason for continued inpatient stay Substantial Risk for: inability to function and rapid decompensation Time Spent With Patient Time: Total time managing care of this patient today ____ minutes.
[2023-01-20 08:00] VITALS: BP 108/66; PULSE 69; RESP 16; TEMP 36.3; O2SAT 96
[2023-01-20] MEDS: Lidocaine 4 % Patch ADH..PATCH 1 PATCH TRANSDERMA (08:51)
[2023-01-20] MEDS: Acetaminophen 325 MG TABLET 975 MG PO ×2 (08:52→14:38)
[2023-01-20] MEDS: Memantine HCl 10 MG TABLET PO ×2 (08:52→20:32)
[2023-01-20] MEDS: lamoTRIgine 25 MG TABLET 50 MG PO ×2 (08:52→20:32)
[2023-01-20 19:40] VITALS: BP 112/56; PULSE 63; RESP 18; TEMP 36.7; O2SAT 94
[2023-01-20] MEDS: OLANZapine 10 MG TABLET PO (20:31)
[2023-01-20] MEDS: Donepezil HCl 10 MG TABLET PO (20:31)
[2023-01-21 08:00] VITALS: BP 131/76; PULSE 72; RESP 16; TEMP 36; O2SAT 96
[2023-01-21] MEDS: lamoTRIgine 25 MG TABLET 50 MG PO (08:19)
[2023-01-21] MEDS: Acetaminophen 325 MG TABLET 975 MG PO ×3 (08:20→20:03)
[2023-01-21] MEDS: Memantine HCl 10 MG TABLET PO ×2 (08:20→20:03)
[2023-01-21] MEDS: Lidocaine 4 % Patch ADH..PATCH 1 PATCH TRANSDERMA (08:21)
--- NOTE | 2023-01-21 11:27 | P.PNPSI_ITS ---
Subjective Subjective Date of Service: 01/21/23 Reason For Visit: F31.9, F43.25 Subjective Notes: Section 7 and Section 8 Interim History: The nursing staff reported the patient had been compliant with treatment and meals, isolative most of the time no changes in his mental status. On interview the patient denies new symptoms, waiting for placement. Mental Status Exam Mental Status Exam Patient Appearance: Appropriate and Unkempt Patient Orientation: Person and Situation Level of Consciousness: Awake Patient Behavior: Guarded and Passive Mood Description: Withdrawn Affect Description: Constricted Patient Cognition Impaired: Yes Ability to Follow Directions: Good Speech Pattern: Clear Hallucinations: None Delusions: Not Present Thought Process: Distracted, Evasive and Slowed Thinking Thought Content: positive for [place] Judgement: Poor Diagnostics Vital Signs (24Hr): Vital Signs - 24 hr 01/20/23 19:40 01/21/23 08:00 Temperature 98.1 F 96.8 F Pulse Rate 63 72 Respiratory Rate 18 16 Blood Pressure 112/56 L 131/76 Pulse Oximetry 94 96 Oxygen Delivery Method Room Air Room Air BMI result Body Mass Index 27.4 Labs 12/03/22 11:52 Medications Medications Current Medications Acetaminophen (Acetaminophen 325 Mg Tablet) 975 mg PO TID [facility] Last Admin: 01/21/23 08:20 Dose: 975 mg Al Hydroxide/Mg Hydroxide (Magnesium Hydrox/Alum Hydrox 30 Ml Oral.Susp) 30 ml PO Q6H PRN PRN Reason: Heartburn/Nausea Bisacodyl (Bisacodyl 5 Mg Tablet.Dr) 10 mg PO DAILY PRN PRN Reason: Constipation Last Admin: 01/15/23 09:43 Dose: 10 mg Donepezil HCl (Donepezil Hcl 10 Mg Tablet) 10 mg PO BEDTIME [facility] Last Admin: 01/20/23 20:31 Dose: 10 mg Hydroxyzine HCl (Hydroxyzine Hcl 25 Mg Tablet) 25 mg PO Q6H PRN PRN Reason: Anxiety Last Admin: 12/26/22 20:07 Dose: 25 mg Lamotrigine (Lamotrigine 25 Mg Tablet) 50 mg PO BID [facility] Last Admin: 01/21/23 08:19 Dose: 50 mg Lidocaine (Lidocaine 4 % Patch Adh..Patch) 1 patch TRANSDERMA DAILY [facility]; Protocol Last Admin: 01/21/23 08:21 Dose: 1 patch Magnesium Hydroxide (Milk Of Magnesia 30 Ml Oral.Susp) 30 ml PO DAILY PRN PRN Reason: Constipation Last Admin: 01/16/23 08:22 Dose: 30 ml Memantine (Memantine Hcl 10 Mg Tablet) 10 mg PO BID [facility] Last Admin: 01/21/23 08:20 Dose: 10 mg Olanzapine (Olanzapine 2.5 Mg Tablet) 2.5 mg PO TID PRN PRN Reason: agitation Last Admin: 12/25/22 20:37 Dose: 2.5 mg Olanzapine (Olanzapine 10 Mg Tablet) 10 mg PO BEDTIME [facility] Last Admin: 01/20/23 20:31 Dose: 10 mg Allergies Allergies Allergy/AdvReac Type Severity Reaction Status Date / Time pollen extracts Allergy Unknown unknown Verified 04/21/22 14:56 latex Allergy Rash Verified 10/31/22 18:30 Assessment & Plan Assessment & Plan (1) Bipolar disorder, now depressed: Status: Acute Code(s): F31.30 - Bipolar disorder, current episode depressed, mild or moderate severity, unspecified (2) Cognitive impairment: Status: Acute Code(s): R41.89 - Other symptoms and signs involving cognitive functions and awareness Plan 82 year old male with history hyperlipidemia, tubular adenoma colon (last colonoscopy 12/21), BPH, chronic normocytic anemia, osteoarthritis shoulders and hips s/p b/l hip arthroplasty, chronic low back pain with lumbar stenosis, depression, hx rotator cuff tear, actinic keratosis, and atypical melanocytic hyperplasia admitted to geriatric psychiatry from [facility] with consult placed to medical hospitalist service for medical H&P. 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 Can use ibuprofen 600mg q6h prn as well if topical diclofenac unavailable. #Chronic left hip pain -per ED provider note at [facility], patient foot got stuck in a hole several months ago and fell onto the left hip. Subsequent imaging studies including x-ray of the hip/pelvis and CT of the pelvis are negative for fracture -Pain management as above -outpt follow up Pt refused physical extensive. Extensive review of prior note and records from [facility] conducted as noted above. Plan 1. The patient now has a guardian and we are trying to look for placement since he does not have a home for himself for social support in the community. 2. Continue with Zyprexa as a mood stabilizer. 3. Increase Lamictal up to 25 p.o. b.i.d. on December 17 to target dysphoria. On January 03 we are increasing up to 50 mg p.o. b.i.d. to target depression. More January 21 we decided to increase Lamictal up to 100 mg p.o. b.i.d. to target depression 4. Waiting for placement. 5. Dulcolax p.r.n. constipation Reason for continued inpatient stay Substantial Risk for: inability to function, rapid decompensation and med/psych decompensation Time Spent With Patient Time: Total time managing care of this patient today __20__ minutes.
[2023-01-21 18:00] VITALS: BP 117/69; PULSE 67; RESP 18; TEMP 36; O2SAT 98
[2023-01-21] MEDS: lamoTRIgine 100 MG TABLET PO (20:03)
[2023-01-21] MEDS: OLANZapine 10 MG TABLET PO (20:03)
[2023-01-21] MEDS: Donepezil HCl 10 MG TABLET PO (20:03)
[2023-01-22 06:00] VITALS: BP 117/71; PULSE 78; RESP 18; TEMP 36.2; O2SAT 96
[2023-01-22] MEDS: Lidocaine 4 % Patch ADH..PATCH 1 PATCH TRANSDERMA (10:30)
[2023-01-22] MEDS: Acetaminophen 325 MG TABLET 975 MG PO ×3 (10:31→19:56)
[2023-01-22] MEDS: lamoTRIgine 100 MG TABLET PO ×2 (10:32→19:56)
[2023-01-22] MEDS: Memantine HCl 10 MG TABLET PO ×2 (10:32→19:55)
[2023-01-22] MEDS: traMADoL HCL 50 MG TABLET PO ×2 (10:36→19:56)
--- NOTE | 2023-01-22 12:12 | P.PNPSI_ITS ---
Subjective Subjective Date of Service: 01/22/23 Reason For Visit: F31.9, F43.25 Subjective Notes: Conditional Voluntary Interim History: The nursing staff reported the patient had been compliant with treatment he looks a little more awake and alert with a slightly brighter affect sings Lamictal was increased. On interview the patient denies new symptoms, waiting for placement. Mental Status Exam Mental Status Exam Patient Appearance: Appropriate Patient Orientation: Person Level of Consciousness: Awake Patient Behavior: Guarded and Passive Mood Description: Withdrawn Affect Description: Constricted Patient Cognition Impaired: Yes Ability to Follow Directions: Good Speech Pattern: Clear Hallucinations: None Delusions: Not Present Thought Process: Distracted Thought Content: positive for [place] and positive for Poverty of Content Judgement: Fair Diagnostics Vital Signs (24Hr): Vital Signs - 24 hr 01/21/23 18:00 01/22/23 06:00 Temperature 96.8 F 97.2 F Pulse Rate 67 78 Respiratory Rate 18 18 Blood Pressure 117/69 117/71 Pulse Oximetry 98 96 Oxygen Delivery Method Room Air Room Air BMI result Body Mass Index 27.4 Labs 12/03/22 11:52 Medications Medications Current Medications Acetaminophen (Acetaminophen 325 Mg Tablet) 975 mg PO TID [facility] Last Admin: 01/22/23 10:31 Dose: 975 mg Al Hydroxide/Mg Hydroxide (Magnesium Hydrox/Alum Hydrox 30 Ml Oral.Susp) 30 ml PO Q6H PRN PRN Reason: Heartburn/Nausea Bisacodyl (Bisacodyl 5 Mg Tablet.Dr) 10 mg PO DAILY PRN PRN Reason: Constipation Last Admin: 01/15/23 09:43 Dose: 10 mg Donepezil HCl (Donepezil Hcl 10 Mg Tablet) 10 mg PO BEDTIME [facility] Last Admin: 01/21/23 20:03 Dose: 10 mg Hydroxyzine HCl (Hydroxyzine Hcl 25 Mg Tablet) 25 mg PO Q6H PRN PRN Reason: Anxiety Last Admin: 12/26/22 20:07 Dose: 25 mg Lamotrigine (Lamotrigine 100 Mg Tablet) 100 mg PO BID [facility] Last Admin: 01/22/23 10:32 Dose: 100 mg Lidocaine (Lidocaine 4 % Patch Adh..Patch) 1 patch TRANSDERMA DAILY [facility]; Protocol Last Admin: 01/22/23 10:30 Dose: 1 patch Magnesium Hydroxide (Milk Of Magnesia 30 Ml Oral.Susp) 30 ml PO DAILY PRN PRN Reason: Constipation Last Admin: 01/16/23 08:22 Dose: 30 ml Memantine (Memantine Hcl 10 Mg Tablet) 10 mg PO BID [facility] Last Admin: 01/22/23 10:32 Dose: 10 mg Olanzapine (Olanzapine 2.5 Mg Tablet) 2.5 mg PO TID PRN PRN Reason: agitation Last Admin: 12/25/22 20:37 Dose: 2.5 mg Olanzapine (Olanzapine 10 Mg Tablet) 10 mg PO BEDTIME [facility] Last Admin: 01/21/23 20:03 Dose: 10 mg Tramadol HCl (Tramadol Hcl 50 Mg Tablet) 50 mg PO Q6H PRN PRN Reason: Pain, Moderate(Pain Scale 4-6) Last Admin: 01/22/23 10:36 Dose: 50 mg Allergies Allergies Allergy/AdvReac Type Severity Reaction Status Date / Time pollen extracts Allergy Unknown unknown Verified 04/21/22 14:56 latex Allergy Rash Verified 10/31/22 18:30 Assessment & Plan Assessment & Plan (1) Bipolar disorder, now depressed: Status: Acute Code(s): F31.30 - Bipolar disorder, current episode depressed, mild or moderate severity, unspecified (2) Cognitive impairment: Status: Acute Code(s): R41.89 - Other symptoms and signs involving cognitive functions and awareness Plan 82 year old male with history hyperlipidemia, tubular adenoma colon (last colonoscopy 12/21), BPH, chronic normocytic anemia, osteoarthritis shoulders and hips s/p b/l hip arthroplasty, chronic low back pain with lumbar stenosis, depression, hx rotator cuff tear, actinic keratosis, and atypical melanocytic hyperplasia admitted to geriatric psychiatry from [facility] with consult placed to medical hospitalist service for medical H&P. 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 Can use ibuprofen 600mg q6h prn as well if topical diclofenac unavailable. #Chronic left hip pain -per ED provider note at [facility], patient foot got stuck in a hole several months ago and fell onto the left hip. Subsequent imaging studies including x-ray of the hip/pelvis and CT of the pelvis are negative for fracture -Pain management as above -outpt follow up Pt refused physical extensive. Extensive review of prior note and records from [facility] conducted as noted above. Plan 1. The patient now has a guardian and we are trying to look for placement since he does not have a home for himself for social support in the community. 2. Continue with Zyprexa as a mood stabilizer. 3. Increase Lamictal up to 25 p.o. b.i.d. on December 17 to target dysphoria. On January 03 we are increasing up to 50 mg p.o. b.i.d. to target depression. More January 21 we decided to increase Lamictal up to 100 mg p.o. b.i.d. to target depression 4. Waiting for placement. 5. Dulcolax p.r.n. constipation Reason for continued inpatient stay Substantial Risk for: inability to function, rapid decompensation and med/psych decompensation Time Spent With Patient Time: Total time managing care of this patient today __20__ minutes.
[2023-01-22 18:00] VITALS: BP 136/58; PULSE 68; RESP 18; TEMP 36.4; O2SAT 97
[2023-01-22] MEDS: Donepezil HCl 10 MG TABLET PO (19:57)
[2023-01-22] MEDS: OLANZapine 10 MG TABLET PO (19:57)
[2023-01-23 06:00] VITALS: BP 95/66; PULSE 78; RESP 18; TEMP 36.7; O2SAT 96
[2023-01-23] MEDS: Lidocaine 4 % Patch ADH..PATCH 1 PATCH TRANSDERMA (09:14)
[2023-01-23] MEDS: Acetaminophen 325 MG TABLET 975 MG PO ×3 (09:15→20:27)
[2023-01-23] MEDS: lamoTRIgine 100 MG TABLET PO ×2 (09:16→20:29)
[2023-01-23] MEDS: Memantine HCl 10 MG TABLET PO ×2 (09:16→20:29)
--- NOTE | 2023-01-23 17:24 | HO.PSYCHPN ---
Subjective Subjective Date of Service: 01/23/23 Reason For Visit: F31.9, F43.25 Subjective Notes: Section 8 Interim History: Pt slept through the night. Pt reports doing well. His affect appears brighter. Pt had visit from niece who came from [place]. Pt denies SI/HI. Pt has been more visible and slightly more social with peers. No behavioral concerns. VS stable. DOC to DOC completed with insurance to review criteria for inpt level of care. At this point is mostly awaiting placement. Pt does not appear somnolent Medication Compliance: Yes Review of Systems Review of Systems unremarkable Yes all other systems are reviewed and are negative and Unobtainable due to mental status Mental Status Exam Mental Status Exam Patient Appearance: Appropriate Patient Orientation: Person Level of Consciousness: Awake Patient Behavior: Guarded and Passive Mood Description: Withdrawn Affect Description: Constricted Patient Cognition Impaired: Yes Ability to Follow Directions: Good Speech Pattern: Clear Diagnostics Vital Signs (24Hr): Vital Signs - 24 hr 01/22/23 18:00 01/23/23 06:00 Temperature 97.6 F 98.1 F Pulse Rate 68 78 Respiratory Rate 18 18 Blood Pressure 136/58 L 95/66 Pulse Oximetry 97 96 Oxygen Delivery Method Room Air Room Air BMI result Body Mass Index 27.4 Labs 12/03/22 11:52 Medications Medications Current Medications Acetaminophen (Acetaminophen 325 Mg Tablet) 975 mg PO TID [facility] Last Admin: 01/23/23 15:28 Dose: 975 mg Al Hydroxide/Mg Hydroxide (Magnesium Hydrox/Alum Hydrox 30 Ml Oral.Susp) 30 ml PO Q6H PRN PRN Reason: Heartburn/Nausea Bisacodyl (Bisacodyl 5 Mg Tablet.) 10 mg PO DAILY PRN PRN Reason: Constipation Last Admin: 01/15/23 09:43 Dose: 10 mg Donepezil HCl (Donepezil Hcl 10 Mg Tablet) 10 mg PO BEDTIME [facility] Last Admin: 01/22/23 19:57 Dose: 10 mg Hydroxyzine HCl (Hydroxyzine Hcl 25 Mg Tablet) 25 mg PO Q6H PRN PRN Reason: Anxiety Last Admin: 12/26/22 20:07 Dose: 25 mg Lamotrigine (Lamotrigine 100 Mg Tablet) 100 mg PO BID [facility] Last Admin: 01/23/23 09:16 Dose: 100 mg Lidocaine (Lidocaine 4 % Patch Adh..Patch) 1 patch TRANSDERMA DAILY [facility]; Protocol Last Admin: 01/23/23 09:14 Dose: 1 patch Magnesium Hydroxide (Milk Of Magnesia 30 Ml Oral.Susp) 30 ml PO DAILY PRN PRN Reason: Constipation Last Admin: 01/16/23 08:22 Dose: 30 ml Memantine (Memantine Hcl 10 Mg Tablet) 10 mg PO BID [facility] Last Admin: 01/23/23 09:16 Dose: 10 mg Olanzapine (Olanzapine 2.5 Mg Tablet) 2.5 mg PO TID PRN PRN Reason: agitation Last Admin: 12/25/22 20:37 Dose: 2.5 mg Olanzapine (Olanzapine 10 Mg Tablet) 10 mg PO BEDTIME [facility] Last Admin: 01/22/23 19:57 Dose: 10 mg Tramadol HCl (Tramadol Hcl 50 Mg Tablet) 50 mg PO Q6H PRN PRN Reason: Pain, Moderate(Pain Scale 4-6) Last Admin: 01/22/23 19:56 Dose: 50 mg Allergies Allergies Allergy/AdvReac Type Severity Reaction Status Date / Time pollen extracts Allergy Unknown unknown Verified 04/21/22 14:56 latex Allergy Rash Verified 10/31/22 18:30 Assessment & Plan Assessment & Plan (1) Bipolar disorder, now depressed: Status: Acute Code(s): F31.30 - Bipolar disorder, current episode depressed, mild or moderate severity, unspecified (2) Cognitive impairment: Status: Acute Code(s): R41.89 - Other symptoms and signs involving cognitive functions and awareness Plan 82 year old male with history hyperlipidemia, tubular adenoma colon (last colonoscopy 12/21), BPH, chronic normocytic anemia, osteoarthritis shoulders and hips s/p b/l hip arthroplasty, chronic low back pain with lumbar stenosis, depression, hx rotator cuff tear, actinic keratosis, and atypical melanocytic hyperplasia admitted to geriatric psychiatry from [facility] with consult placed to medical hospitalist service for medical H&P. 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 Can use ibuprofen 600mg q6h prn as well if topical diclofenac unavailable. #Chronic left hip pain -per ED provider note at [facility], patient foot got stuck in a hole several months ago and fell onto the left hip. Subsequent imaging studies including x-ray of the hip/pelvis and CT of the pelvis are negative for fracture -Pain management as above -outpt follow up Pt refused physical extensive. Extensive review of prior note and records from [facility] conducted as noted above. Plan 1. The patient now has a guardian and we are trying to look for placement since he does not have a home for himself for social support in the community. 2. Continue with Zyprexa as a mood stabilizer. 3. Increase Lamictal up to 25 p.o. b.i.d. on December 17 to target dysphoria. On January 03 we are increasing up to 50 mg p.o. b.i.d. to target depression. More January 21 we decided to increase Lamictal up to 100 mg p.o. b.i.d. to target depression 4. Waiting for placement. 5. Dulcolax p.r.n. constipation Reason for continued inpatient stay Substantial Risk for: inability to function Time Spent With Patient Time: Total time managing care of this patient today ____ minutes.
[2023-01-23 18:00] VITALS: BP 119/61; PULSE 69; RESP 18; TEMP 36.9; O2SAT 99
[2023-01-23] MEDS: OLANZapine 10 MG TABLET PO (20:27)
[2023-01-23] MEDS: hydrOXYzine HCL 25 MG TABLET PO (20:29)
[2023-01-23] MEDS: Donepezil HCl 10 MG TABLET PO (20:30)
[2023-01-24 06:00] VITALS: BP 120/64; PULSE 66; RESP 18; TEMP 36.7; O2SAT 97
[2023-01-24 07:00] VITALS: BMI 27.4
[2023-01-24] MEDS: lamoTRIgine 100 MG TABLET PO ×2 (08:37→20:47)
[2023-01-24] MEDS: Acetaminophen 325 MG TABLET 975 MG PO ×3 (08:38→20:47)
[2023-01-24] MEDS: Lidocaine 4 % Patch ADH..PATCH 1 PATCH TRANSDERMA (08:38)
[2023-01-24] MEDS: Memantine HCl 10 MG TABLET PO ×2 (08:38→20:47)
--- NOTE | 2023-01-24 16:15 | HO.PSYCHPN ---
Subjective Subjective Date of Service: 01/24/23 Reason For Visit: F31.9, F43.25 Subjective Notes: Section 7 and Section 8 Interim History: The nursing staff reported no changes in his mental status but today he was very happy since his knees a me came from [place] to visit him. No changes in his mental status, waiting for placement. Mental Status Exam Mental Status Exam Patient Appearance: Appropriate and Unkempt Patient Orientation: Person and Situation Level of Consciousness: Awake Patient Behavior: Guarded and Passive Mood Description: Withdrawn Affect Description: Constricted Patient Cognition Impaired: Yes Ability to Follow Directions: Good Speech Pattern: Clear Hallucinations: None Delusions: Not Present Thought Process: Distracted and Linear Thought Content: positive for [place] and positive for Circumstantial Judgement: Fair Diagnostics Vital Signs (24Hr): Vital Signs - 24 hr 01/23/23 18:00 01/24/23 06:00 Temperature 98.4 F 98.1 F Pulse Rate 69 66 Respiratory Rate 18 18 Blood Pressure 119/61 120/64 Pulse Oximetry 99 97 Oxygen Delivery Method Room Air Room Air BMI result Body Mass Index 27.4 Labs 12/03/22 11:52 Medications Medications Current Medications Acetaminophen (Acetaminophen 325 Mg Tablet) 975 mg PO TID [facility] Last Admin: 01/24/23 08:38 Dose: 975 mg Al Hydroxide/Mg Hydroxide (Magnesium Hydrox/Alum Hydrox 30 Ml Oral.Susp) 30 ml PO Q6H PRN PRN Reason: Heartburn/Nausea Bisacodyl (Bisacodyl 5 Mg Tablet.Dr) 10 mg PO DAILY PRN PRN Reason: Constipation Last Admin: 01/15/23 09:43 Dose: 10 mg Donepezil HCl (Donepezil Hcl 10 Mg Tablet) 10 mg PO BEDTIME [facility] Last Admin: 01/23/23 20:30 Dose: 10 mg Hydroxyzine HCl (Hydroxyzine Hcl 25 Mg Tablet) 25 mg PO Q6H PRN PRN Reason: Anxiety Last Admin: 01/23/23 20:29 Dose: 25 mg Lamotrigine (Lamotrigine 100 Mg Tablet) 100 mg PO BID [facility] Last Admin: 01/24/23 08:37 Dose: 100 mg Lidocaine (Lidocaine 4 % Patch Adh..Patch) 1 patch TRANSDERMA DAILY [facility]; Protocol Last Admin: 01/24/23 08:38 Dose: 1 patch Magnesium Hydroxide (Milk Of Magnesia 30 Ml Oral.Susp) 30 ml PO DAILY PRN PRN Reason: Constipation Last Admin: 01/16/23 08:22 Dose: 30 ml Memantine (Memantine Hcl 10 Mg Tablet) 10 mg PO BID [facility] Last Admin: 01/24/23 08:38 Dose: 10 mg Olanzapine (Olanzapine 2.5 Mg Tablet) 2.5 mg PO TID PRN PRN Reason: agitation Last Admin: 12/25/22 20:37 Dose: 2.5 mg Olanzapine (Olanzapine 10 Mg Tablet) 10 mg PO BEDTIME [facility] Last Admin: 01/23/23 20:27 Dose: 10 mg Tramadol HCl (Tramadol Hcl 50 Mg Tablet) 50 mg PO Q6H PRN PRN Reason: Pain, Moderate(Pain Scale 4-6) Last Admin: 01/22/23 19:56 Dose: 50 mg Allergies Allergies Allergy/AdvReac Type Severity Reaction Status Date / Time pollen extracts Allergy Unknown unknown Verified 04/21/22 14:56 latex Allergy Rash Verified 10/31/22 18:30 Assessment & Plan Assessment & Plan (1) Bipolar disorder, now depressed: Status: Acute Code(s): F31.30 - Bipolar disorder, current episode depressed, mild or moderate severity, unspecified (2) Cognitive impairment: Status: Acute Code(s): R41.89 - Other symptoms and signs involving cognitive functions and awareness Plan 82 year old male with history hyperlipidemia, tubular adenoma colon (last colonoscopy 12/21), BPH, chronic normocytic anemia, osteoarthritis shoulders and hips s/p b/l hip arthroplasty, 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 Can use ibuprofen 600mg q6h prn as well if topical diclofenac unavailable. #Chronic left hip pain -per ED provider note at [facility], patient foot got stuck in a hole several months ago and fell onto the left hip. Subsequent imaging studies including x-ray of the hip/pelvis and CT of the pelvis are negative for fracture -Pain management as above -outpt follow up Pt refused physical extensive. Extensive review of prior note and records from [facility] conducted as noted above. Plan 1. The patient now has a guardian and we are trying to look for placement since he does not have a home for himself for social support in the community. 2. Continue with Zyprexa as a mood stabilizer. 3. Increase Lamictal up to 25 p.o. b.i.d. on December 17 to target dysphoria. On January 03 we are increasing up to 50 mg p.o. b.i.d. to target depression. More January 21 we decided to increase Lamictal up to 100 mg p.o. b.i.d. to target depression 4. Waiting for placement. 5. Dulcolax p.r.n. constipation Reason for continued inpatient stay Substantial Risk for: inability to function, rapid decompensation and med/psych decompensation Time Spent With Patient Time: Total time managing care of this patient today __20__ minutes.
[2023-01-24 18:00] VITALS: BP 109/53; PULSE 61; RESP 16; TEMP 36.4; O2SAT 97
[2023-01-24] MEDS: OLANZapine 10 MG TABLET PO (20:46)
[2023-01-24] MEDS: hydrOXYzine HCL 25 MG TABLET PO (20:46)
[2023-01-24] MEDS: Donepezil HCl 10 MG TABLET PO (20:47)
[2023-01-25 07:58] VITALS: BP 138/79; PULSE 68; RESP 17; TEMP 36.5; O2SAT 95
[2023-01-25] MEDS: Acetaminophen 325 MG TABLET 975 MG PO ×3 (08:33→20:29)
[2023-01-25] MEDS: lamoTRIgine 100 MG TABLET PO ×2 (08:33→20:29)
[2023-01-25] MEDS: Memantine HCl 10 MG TABLET PO ×2 (08:34→20:29)
--- NOTE | 2023-01-25 12:06 | HO.PSYCHPN ---
Subjective Subjective Date of Service: 01/25/23 Reason For Visit: F31.9, F43.25 Subjective Notes: Conditional Voluntary Interim History: The nursing staff reported the patient had being pleasant and cooperative, yesterday he had a good day and he was in good spirits. On interview the patient denies new symptoms. Yesterday his knees 80 came to visit him from [place]. Waiting for placement. Mental Status Exam Mental Status Exam Patient Appearance: Appropriate Patient Orientation: Person and Situation Level of Consciousness: Awake and Appropriate Patient Behavior: Guarded and Passive Mood Description: Calm and Withdrawn Affect Description: Calm Patient Cognition Impaired: Yes Ability to Follow Directions: Good Speech Pattern: Clear Hallucinations: None Delusions: Not Present Thought Process: Distracted and Linear Thought Content: positive for [place], positive for Circumstantial and positive for Poverty of Content Judgement: Fair Diagnostics Vital Signs (24Hr): Vital Signs - 24 hr 01/24/23 18:00 01/25/23 07:58 Temperature 97.6 F 97.7 F Pulse Rate 61 68 Respiratory Rate 16 17 Blood Pressure 109/53 L 138/79 Pulse Oximetry 97 95 Oxygen Delivery Method Room Air Room Air BMI result Body Mass Index 27.4 Labs 12/03/22 11:52 Medications Medications Current Medications Acetaminophen (Acetaminophen 325 Mg Tablet) 975 mg PO TID [facility] Last Admin: 01/25/23 08:33 Dose: 975 mg Al Hydroxide/Mg Hydroxide (Magnesium Hydrox/Alum Hydrox 30 Ml Oral.Susp) 30 ml PO Q6H PRN PRN Reason: Heartburn/Nausea Bisacodyl (Bisacodyl 5 Mg Tablet.Dr) 10 mg PO DAILY PRN PRN Reason: Constipation Last Admin: 01/15/23 09:43 Dose: 10 mg Hydroxyzine HCl (Hydroxyzine Hcl 25 Mg Tablet) 25 mg PO Q6H PRN PRN Reason: Anxiety Last Admin: 01/24/23 20:46 Dose: 25 mg Lamotrigine (Lamotrigine 100 Mg Tablet) 100 mg PO BID [facility] Last Admin: 01/25/23 08:33 Dose: 100 mg Lidocaine (Lidocaine 4 % Patch Adh..Patch) 1 patch TRANSDERMA DAILY [facility]; Protocol Last Admin: 01/25/23 09:22 Dose: Not Given Magnesium Hydroxide (Milk Of Magnesia 30 Ml Oral.Susp) 30 ml PO DAILY PRN PRN Reason: Constipation Last Admin: 01/16/23 08:22 Dose: 30 ml Memantine (Memantine Hcl 10 Mg Tablet) 10 mg PO BID [facility] Last Admin: 01/25/23 08:34 Dose: 10 mg Olanzapine (Olanzapine 2.5 Mg Tablet) 2.5 mg PO TID PRN PRN Reason: agitation Last Admin: 12/25/22 20:37 Dose: 2.5 mg Olanzapine (Olanzapine 10 Mg Tablet) 10 mg PO BEDTIME [facility] Last Admin: 01/24/23 20:46 Dose: 10 mg Tramadol HCl (Tramadol Hcl 50 Mg Tablet) 50 mg PO Q6H PRN PRN Reason: Pain, Moderate(Pain Scale 4-6) Last Admin: 01/22/23 19:56 Dose: 50 mg Allergies Allergies Allergy/AdvReac Type Severity Reaction Status Date / Time pollen extracts Allergy Unknown unknown Verified 04/21/22 14:56 latex Allergy Rash Verified 10/31/22 18:30 Assessment & Plan Assessment & Plan (1) Bipolar disorder, now depressed: Status: Acute Code(s): F31.30 - Bipolar disorder, current episode depressed, mild or moderate severity, unspecified (2) Cognitive impairment: Status: Acute Code(s): R41.89 - Other symptoms and signs involving cognitive functions and awareness Plan 82 year old male with history hyperlipidemia, tubular adenoma colon (last colonoscopy 12/21), BPH, chronic normocytic anemia, osteoarthritis shoulders and hips s/p b/l hip arthroplasty, chronic low back pain with lumbar stenosis, depression, hx rotator cuff tear, actinic keratosis, and atypical melanocytic hyperplasia admitted to geriatric psychiatry from [facility] with consult placed to medical hospitalist service for medical H&P. 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 Can use ibuprofen 600mg q6h prn as well if topical diclofenac unavailable. #Chronic left hip pain -per ED provider note at [facility], patient foot got stuck in a hole several months ago and fell onto the left hip. Subsequent imaging studies including x-ray of the hip/pelvis and CT of the pelvis are negative for fracture -Pain management as above -outpt follow up Pt refused physical extensive. Extensive review of prior note and records from [facility] conducted as noted above. Plan 1. The patient now has a guardian and we are trying to look for placement since he does not have a home for himself for social support in the community. 2. Continue with Zyprexa as a mood stabilizer. 3. Increase Lamictal up to 25 p.o. b.i.d. on December 17 to target dysphoria. On January 03 we are increasing up to 50 mg p.o. b.i.d. to target depression. More January 21 we decided to increase Lamictal up to 100 mg p.o. b.i.d. to target depression 4. Waiting for placement. 5. Dulcolax p.r.n. constipation Reason for continued inpatient stay Substantial Risk for: inability to function, rapid decompensation and med/psych decompensation Time Spent With Patient Time: Total time managing care of this patient today ___20_ minutes.
[2023-01-25 18:00] VITALS: BP 126/58; PULSE 62; RESP 18; TEMP 36.6; O2SAT 94
[2023-01-25] MEDS: OLANZapine 10 MG TABLET PO (20:29)
[2023-01-26 08:05] VITALS: BP 127/70; PULSE 68; RESP 16; TEMP 36.4; O2SAT 97
[2023-01-26] MEDS: Acetaminophen 325 MG TABLET 975 MG PO ×3 (08:47→20:29)
[2023-01-26] MEDS: Memantine HCl 10 MG TABLET PO ×2 (08:48→20:29)
[2023-01-26] MEDS: lamoTRIgine 100 MG TABLET PO ×2 (08:48→20:29)
[2023-01-26] MEDS: Lidocaine 4 % Patch ADH..PATCH 1 PATCH TRANSDERMA (08:49)
--- NOTE | 2023-01-26 17:59 | P.PNPSI_ITS ---
Subjective Subjective Date of Service: 01/26/23 Reason For Visit: F31.9, F43.25 Interim History: Met with patient; discussed with team; reviewed notes Staff reports same presentation, pleasant, social. On approach patient said that he is tired and trying to sleep but that overall he is fine. No complaints and no requests Mental Status Exam Mental Status Exam Patient Appearance: Appropriate Patient Orientation: Person and Situation Level of Consciousness: Awake and Appropriate Patient Behavior: Passive Mood Description: Calm and Withdrawn Affect Description: Calm Patient Cognition Impaired: Yes Ability to Follow Directions: Good Speech Pattern: Clear Hallucinations: None Delusions: Not Present Thought Process: Distracted and Linear Thought Content: positive for [place], positive for Circumstantial and positive for Poverty of Content Judgement and Insight: Impaired Diagnostics Vital Signs (24Hr): Vital Signs - 24 hr 01/25/23 18:00 01/26/23 08:05 Temperature 98 F 97.6 F Pulse Rate 62 68 Respiratory Rate 18 16 Blood Pressure 126/58 L 127/70 Pulse Oximetry 94 97 Oxygen Delivery Method Room Air Room Air BMI result Body Mass Index 27.4 Labs 12/03/22 11:52 Medications Medications Current Medications Acetaminophen (Acetaminophen 325 Mg Tablet) 975 mg PO TID [facility] Last Admin: 01/26/23 15:54 Dose: 975 mg Al Hydroxide/Mg Hydroxide (Magnesium Hydrox/Alum Hydrox 30 Ml Oral.Susp) 30 ml PO Q6H PRN PRN Reason: Heartburn/Nausea Bisacodyl (Bisacodyl 5 Mg Tablet.Dr) 10 mg PO DAILY PRN PRN Reason: Constipation Last Admin: 01/15/23 09:43 Dose: 10 mg Hydroxyzine HCl (Hydroxyzine Hcl 25 Mg Tablet) 25 mg PO Q6H PRN PRN Reason: Anxiety Last Admin: 01/24/23 20:46 Dose: 25 mg Lamotrigine (Lamotrigine 100 Mg Tablet) 100 mg PO BID [facility] Last Admin: 01/26/23 08:48 Dose: 100 mg Lidocaine (Lidocaine 4 % Patch Adh..Patch) 1 patch TRANSDERMA DAILY [facility]; Protocol Last Admin: 01/26/23 08:49 Dose: 1 patch Magnesium Hydroxide (Milk Of Magnesia 30 Ml Oral.Susp) 30 ml PO DAILY PRN PRN Reason: Constipation Last Admin: 01/16/23 08:22 Dose: 30 ml Memantine (Memantine Hcl 10 Mg Tablet) 10 mg PO BID [facility] Last Admin: 01/26/23 08:48 Dose: 10 mg Olanzapine (Olanzapine 2.5 Mg Tablet) 2.5 mg PO TID PRN PRN Reason: agitation Last Admin: 12/25/22 20:37 Dose: 2.5 mg Olanzapine (Olanzapine 10 Mg Tablet) 10 mg PO BEDTIME [facility] Last Admin: 01/25/23 20:29 Dose: 10 mg Tramadol HCl (Tramadol Hcl 50 Mg Tablet) 50 mg PO Q6H PRN PRN Reason: Pain, Moderate(Pain Scale 4-6) Last Admin: 01/22/23 19:56 Dose: 50 mg Allergies Allergies Allergy/AdvReac Type Severity Reaction Status Date / Time pollen extracts Allergy Unknown unknown Verified 04/21/22 14:56 latex Allergy Rash Verified 10/31/22 18:30 Assessment & Plan Assessment & Plan (1) Bipolar disorder, now depressed: Status: Acute Code(s): F31.30 - Bipolar disorder, current episode depressed, mild or moderate severity, unspecified (2) Cognitive impairment: Status: Acute Code(s): R41.89 - Other symptoms and signs involving cognitive functions and awareness Plan 82 year old male with history hyperlipidemia, tubular adenoma colon (last colonoscopy 12/21), BPH, chronic normocytic anemia, osteoarthritis shoulders and hips s/p b/l hip arthroplasty, chronic low back pain with lumbar stenosis, depression, hx rotator cuff tear, actinic keratosis, and atypical melanocytic hyperplasia admitted to geriatric psychiatry from [facility] with consult placed to medical hospitalist service for medical H&P. 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 Can use ibuprofen 600mg q6h prn as well if topical diclofenac unavailable. #Chronic left hip pain -per ED provider note at [facility], patient foot got stuck in a hole several months ago and fell onto the left hip. Subsequent imaging studies including x-ray of the hip/pelvis and CT of the pelvis are negative for fracture -Pain management as above -outpt follow up Pt refused physical extensive. Extensive review of prior note and records from [facility] conducted as noted above. Plan 1. The patient now has a guardian and we are trying to look for placement since he does not have a home for himself for social support in the community. 2. Continue with Zyprexa as a mood stabilizer. 3. Increase Lamictal up to 25 p.o. b.i.d. on December 17 to target dysphoria. On January 03 we are increasing up to 50 mg p.o. b.i.d. to target depression. More January 21 we decided to increase Lamictal up to 100 mg p.o. b.i.d. to target depression 4. Waiting for placement. 5. Dulcolax p.r.n. constipation Reason for continued inpatient stay Substantial Risk for: inability to function Time Spent With Patient Time: Total time managing care of this patient today ____ minutes.
[2023-01-26 18:00] VITALS: BP 124/72; PULSE 76; RESP 18; TEMP 36.4; O2SAT 94
[2023-01-26] MEDS: OLANZapine 10 MG TABLET PO (20:29)
[2023-01-27 07:55] VITALS: BP 116/61; PULSE 70; RESP 18; TEMP 36.2; O2SAT 96
[2023-01-27] MEDS: lamoTRIgine 100 MG TABLET PO ×2 (09:39→20:19)
[2023-01-27] MEDS: Acetaminophen 325 MG TABLET 975 MG PO ×3 (09:39→20:19)
[2023-01-27] MEDS: Lidocaine 4 % Patch ADH..PATCH 1 PATCH TRANSDERMA (09:39)
[2023-01-27] MEDS: Memantine HCl 10 MG TABLET PO ×2 (10:53→20:19)
--- NOTE | 2023-01-27 17:28 | P.PNPSI_ITS ---
Subjective Subjective Date of Service: 01/27/23 Reason For Visit: F31.9, F43.25 Interim History: Met with patient; discussed with team No change in presentation. Patient says that he is pretty well... And that the nurses are terrific. No complaints and no requests Mental Status Exam Mental Status Exam Patient Appearance: Appropriate Patient Orientation: Person and Situation Level of Consciousness: Awake and Appropriate Patient Behavior: Passive Mood Description: Calm and Withdrawn Affect Description: Calm Patient Cognition Impaired: Yes Ability to Follow Directions: Good Speech Pattern: Clear Hallucinations: None Delusions: Not Present Thought Process: Distracted and Linear Thought Content: positive for [place], positive for Circumstantial and positive for Poverty of Content Judgement and Insight: Impaired Diagnostics Vital Signs (24Hr): Vital Signs - 24 hr 01/26/23 18:00 01/27/23 07:55 Temperature 97.5 F 97.2 F Pulse Rate 76 70 Respiratory Rate 18 18 Blood Pressure 124/72 116/61 Pulse Oximetry 94 96 Oxygen Delivery Method Room Air Room Air BMI result Body Mass Index 27.4 Labs 12/03/22 11:52 Medications Medications Current Medications Acetaminophen (Acetaminophen 325 Mg Tablet) 975 mg PO TID [facility] Last Admin: 01/27/23 15:38 Dose: 975 mg Al Hydroxide/Mg Hydroxide (Magnesium Hydrox/Alum Hydrox 30 Ml Oral.Susp) 30 ml PO Q6H PRN PRN Reason: Heartburn/Nausea Bisacodyl (Bisacodyl 5 Mg Tablet.Dr) 10 mg PO DAILY PRN PRN Reason: Constipation Last Admin: 01/15/23 09:43 Dose: 10 mg Hydroxyzine HCl (Hydroxyzine Hcl 25 Mg Tablet) 25 mg PO Q6H PRN PRN Reason: Anxiety Last Admin: 01/24/23 20:46 Dose: 25 mg Lamotrigine (Lamotrigine 100 Mg Tablet) 100 mg PO BID [facility] Last Admin: 01/27/23 09:39 Dose: 100 mg Lidocaine (Lidocaine 4 % Patch Adh..Patch) 1 patch TRANSDERMA DAILY [facility]; Protocol Last Admin: 01/27/23 09:39 Dose: 1 patch Magnesium Hydroxide (Milk Of Magnesia 30 Ml Oral.Susp) 30 ml PO DAILY PRN PRN Reason: Constipation Last Admin: 01/16/23 08:22 Dose: 30 ml Memantine (Memantine Hcl 10 Mg Tablet) 10 mg PO BID [facility] Last Admin: 01/27/23 10:53 Dose: 10 mg Olanzapine (Olanzapine 2.5 Mg Tablet) 2.5 mg PO TID PRN PRN Reason: agitation Last Admin: 12/25/22 20:37 Dose: 2.5 mg Olanzapine (Olanzapine 10 Mg Tablet) 10 mg PO BEDTIME [facility] Last Admin: 01/26/23 20:29 Dose: 10 mg Allergies Allergies Allergy/AdvReac Type Severity Reaction Status Date / Time pollen extracts Allergy Unknown unknown Verified 04/21/22 14:56 latex Allergy Rash Verified 10/31/22 18:30 Assessment & Plan Assessment & Plan (1) Bipolar disorder, now depressed: Status: Acute Code(s): F31.30 - Bipolar disorder, current episode depressed, mild or moderate severity, unspecified (2) Cognitive impairment: Status: Acute Code(s): R41.89 - Other symptoms and signs involving cognitive functions and awareness Plan 82 year old male with history hyperlipidemia, tubular adenoma colon (last colonoscopy 12/21), BPH, chronic normocytic anemia, osteoarthritis shoulders and hips s/p b/l hip arthroplasty, chronic low back pain with lumbar stenosis, depression, hx rotator cuff tear, actinic keratosis, and atypical melanocytic hyperplasia admitted to geriatric psychiatry from [facility] with consult placed to medical hospitalist service for medical H&P. 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 Can use ibuprofen 600mg q6h prn as well if topical diclofenac unavailable. #Chronic left hip pain -per ED provider note at [facility], patient foot got stuck in a hole several months ago and fell onto the left hip. Subsequent imaging studies including x-ray of the hip/pelvis and CT of the pelvis are negative for fracture -Pain management as above -outpt follow up Pt refused physical extensive. Extensive review of prior note and records from [facility] conducted as noted above. Plan 1. The patient now has a guardian and we are trying to look for placement since he does not have a home for himself for social support in the community. 2. Continue with Zyprexa as a mood stabilizer. 3. Increase Lamictal up to 25 p.o. b.i.d. on December 17 to target dysphoria. On January 03 we are increasing up to 50 mg p.o. b.i.d. to target depression. More January 21 we decided to increase Lamictal up to 100 mg p.o. b.i.d. to target depression 4. Waiting for placement. 5. Dulcolax p.r.n. constipation Reason for continued inpatient stay Substantial Risk for: inability to function Time Spent With Patient Time: Total time managing care of this patient today ____ minutes.
[2023-01-27 19:40] VITALS: BP 108/55; PULSE 56; RESP 18; TEMP 36.1; O2SAT 97
[2023-01-27] MEDS: OLANZapine 10 MG TABLET PO (20:19)
[2023-01-28 08:22] VITALS: BP 119/58; PULSE 71; RESP 18; TEMP 36.4; O2SAT 96
[2023-01-28] MEDS: lamoTRIgine 100 MG TABLET PO ×2 (08:29→19:59)
[2023-01-28] MEDS: Memantine HCl 10 MG TABLET PO ×2 (08:29→20:00)
[2023-01-28] MEDS: Lidocaine 4 % Patch ADH..PATCH 1 PATCH TRANSDERMA (08:29)
[2023-01-28] MEDS: Acetaminophen 325 MG TABLET 975 MG PO ×3 (08:29→20:00)
--- NOTE | 2023-01-28 14:51 | P.PNPSI_ITS ---
Subjective Subjective Date of Service: 01/28/23 Reason For Visit: F31.9, F43.25 Subjective Notes: Section 7 and Section 8 Interim History: The nursing staff reported the patient had been compliant with treatment no new symptoms. On interview the patient denies symptoms, waiting for placement. Mental Status Exam Mental Status Exam Patient Appearance: Appropriate and Unkempt Patient Orientation: Person and Situation Level of Consciousness: Awake and Appropriate Patient Behavior: Guarded and Passive Mood Description: Withdrawn Affect Description: Constricted Patient Cognition Impaired: Yes Ability to Follow Directions: Good Speech Pattern: Clear Hallucinations: None Delusions: Not Present Thought Process: Distracted and Slowed Thinking Thought Content: positive for [place] and positive for Poverty of Content Judgement: Fair Diagnostics Vital Signs (24Hr): Vital Signs - 24 hr 01/27/23 19:40 01/28/23 08:22 Temperature 97.0 F 97.5 F Pulse Rate 56 71 Respiratory Rate 18 18 Blood Pressure 108/55 L 119/58 L Pulse Oximetry 97 96 Oxygen Delivery Method Room Air Room Air BMI result Body Mass Index 27.4 Labs 12/03/22 11:52 Medications Medications Current Medications Acetaminophen (Acetaminophen 325 Mg Tablet) 975 mg PO TID [facility] Last Admin: 01/28/23 08:29 Dose: 975 mg Al Hydroxide/Mg Hydroxide (Magnesium Hydrox/Alum Hydrox 30 Ml Oral.Susp) 30 ml PO Q6H PRN PRN Reason: Heartburn/Nausea Bisacodyl (Bisacodyl 5 Mg Tablet.Dr) 10 mg PO DAILY PRN PRN Reason: Constipation Last Admin: 01/15/23 09:43 Dose: 10 mg Hydroxyzine HCl (Hydroxyzine Hcl 25 Mg Tablet) 25 mg PO Q6H PRN PRN Reason: Anxiety Last Admin: 01/24/23 20:46 Dose: 25 mg Lamotrigine (Lamotrigine 100 Mg Tablet) 100 mg PO BID [facility] Last Admin: 01/28/23 08:29 Dose: 100 mg Lidocaine (Lidocaine 4 % Patch Adh..Patch) 1 patch TRANSDERMA DAILY [facility]; Protocol Last Admin: 01/28/23 08:29 Dose: 1 patch Magnesium Hydroxide (Milk Of Magnesia 30 Ml Oral.Susp) 30 ml PO DAILY PRN PRN Reason: Constipation Last Admin: 01/16/23 08:22 Dose: 30 ml Memantine (Memantine Hcl 10 Mg Tablet) 10 mg PO BID [facility] Last Admin: 01/28/23 08:29 Dose: 10 mg Olanzapine (Olanzapine 2.5 Mg Tablet) 2.5 mg PO TID PRN PRN Reason: agitation Last Admin: 12/25/22 20:37 Dose: 2.5 mg Olanzapine (Olanzapine 10 Mg Tablet) 10 mg PO BEDTIME [facility] Last Admin: 01/27/23 20:19 Dose: 10 mg Allergies Allergies Allergy/AdvReac Type Severity Reaction Status Date / Time pollen extracts Allergy Unknown unknown Verified 04/21/22 14:56 latex Allergy Rash Verified 10/31/22 18:30 Assessment & Plan Assessment & Plan (1) Bipolar disorder, now depressed: Status: Acute Code(s): F31.30 - Bipolar disorder, current episode depressed, mild or moderate severity, unspecified (2) Cognitive impairment: Status: Acute Code(s): R41.89 - Other symptoms and signs involving cognitive functions and awareness Plan 82 year old male with history hyperlipidemia, tubular adenoma colon (last colonoscopy 12/21), BPH, chronic normocytic anemia, osteoarthritis shoulders and hips s/p b/l hip arthroplasty, chronic low back pain with lumbar stenosis, depression, hx rotator cuff tear, actinic keratosis, and atypical melanocytic hyperplasia admitted to geriatric psychiatry from [facility] with consult placed to medical hospitalist service for medical H&P. 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 Can use ibuprofen 600mg q6h prn as well if topical diclofenac unavailable. #Chronic left hip pain -per ED provider note at [facility], patient foot got stuck in a hole several months ago and fell onto the left hip. Subsequent imaging studies including x-ray of the hip/pelvis and CT of the pelvis are negative for fracture -Pain management as above -outpt follow up Pt refused physical extensive. Extensive review of prior note and records from [facility] conducted as noted above. Plan 1. The patient now has a guardian and we are trying to look for placement since he does not have a home for himself for social support in the community. 2. Continue with Zyprexa as a mood stabilizer. 3. Increase Lamictal up to 25 p.o. b.i.d. on December 17 to target dysphoria. On January 03 we are increasing up to 50 mg p.o. b.i.d. to target depression. More January 21 we decided to increase Lamictal up to 100 mg p.o. b.i.d. to target depression 4. Waiting for placement. 5. Dulcolax p.r.n. constipation Reason for continued inpatient stay Substantial Risk for: inability to function, rapid decompensation and med/psych decompensation Time Spent With Patient Time: Total time managing care of this patient today __20__ minutes.
[2023-01-28 18:00] VITALS: BP 116/64; PULSE 64; RESP 18; TEMP 36.7
[2023-01-28] MEDS: OLANZapine 10 MG TABLET PO (19:59)
[2023-01-29 08:00] VITALS: BP 121/61; PULSE 77; RESP 18; TEMP 37.1; O2SAT 95
[2023-01-29] MEDS: Acetaminophen 325 MG TABLET 975 MG PO ×3 (08:56→21:03)
[2023-01-29] MEDS: lamoTRIgine 100 MG TABLET PO ×2 (08:57→21:05)
[2023-01-29] MEDS: Lidocaine 4 % Patch ADH..PATCH 1 PATCH TRANSDERMA (08:58)
[2023-01-29] MEDS: Memantine HCl 10 MG TABLET PO ×2 (09:54→21:05)
[2023-01-29] MEDS: Milk of Magnesia 30 ML ORAL.SUSP PO (14:17)
--- NOTE | 2023-01-29 15:50 | HO.PSYCHPN ---
Subjective Subjective Date of Service: 01/29/23 Reason For Visit: F31.9, F43.25 Subjective Notes: Section 7 and Section 8 Interim History: The nursing staff reported the patient denies new symptoms compliant with treatment. On interview the patient reports that he is doing fine, waiting for placement. Mental Status Exam Mental Status Exam Patient Appearance: Well Grooomed and Appropriate Patient Orientation: Person and Situation Level of Consciousness: Awake and Appropriate Patient Behavior: Guarded and Passive Mood Description: Withdrawn Affect Description: Constricted Patient Cognition Impaired: Yes Ability to Follow Directions: Good Speech Pattern: Clear Hallucinations: None Delusions: Not Present Thought Process: Linear Thought Content: positive for [place]um[place] Judgement: Fair Diagnostics Vital Signs (24Hr): Vital Signs - 24 hr 01/28/23 18:00 01/29/23 08:00 Temperature 98.0 F 98.8 F Pulse Rate 64 77 Respiratory Rate 18 18 Blood Pressure 116/64 121/61 Pulse Oximetry 95 Oxygen Delivery Method Room Air Room Air BMI result Body Mass Index 27.4 Labs 12/03/22 11:52 Medications Medications Current Medications Acetaminophen (Acetaminophen 325 Mg Tablet) 975 mg PO TID [facility] Last Admin: 01/29/23 14:17 Dose: 975 mg Al Hydroxide/Mg Hydroxide (Magnesium Hydrox/Alum Hydrox 30 Ml Oral.Susp) 30 ml PO Q6H PRN PRN Reason: Heartburn/Nausea Bisacodyl (Bisacodyl 5 Mg Tablet.Dr) 10 mg PO DAILY PRN PRN Reason: Constipation Last Admin: 01/15/23 09:43 Dose: 10 mg Hydroxyzine HCl (Hydroxyzine Hcl 25 Mg Tablet) 25 mg PO Q6H PRN PRN Reason: Anxiety Last Admin: 01/24/23 20:46 Dose: 25 mg Lamotrigine (Lamotrigine 100 Mg Tablet) 100 mg PO BID [facility] Last Admin: 01/29/23 08:57 Dose: 100 mg Lidocaine (Lidocaine 4 % Patch Adh..Patch) 1 patch TRANSDERMA DAILY [facility]; Protocol Last Admin: 01/29/23 08:58 Dose: 1 patch Magnesium Hydroxide (Milk Of Magnesia 30 Ml Oral.Susp) 30 ml PO DAILY PRN PRN Reason: Constipation Last Admin: 01/29/23 14:17 Dose: 30 ml Memantine (Memantine Hcl 10 Mg Tablet) 10 mg PO BID [facility] Last Admin: 01/29/23 09:54 Dose: 10 mg Olanzapine (Olanzapine 2.5 Mg Tablet) 2.5 mg PO TID PRN PRN Reason: agitation Last Admin: 12/25/22 20:37 Dose: 2.5 mg Olanzapine (Olanzapine 10 Mg Tablet) 10 mg PO BEDTIME [facility] Last Admin: 01/28/23 19:59 Dose: 10 mg Allergies Allergies Allergy/AdvReac Type Severity Reaction Status Date / Time pollen extracts Allergy Unknown unknown Verified 04/21/22 14:56 latex Allergy Rash Verified 10/31/22 18:30 Assessment & Plan Assessment & Plan (1) Bipolar disorder, now depressed: Status: Acute Code(s): F31.30 - Bipolar disorder, current episode depressed, mild or moderate severity, unspecified (2) Cognitive impairment: Status: Acute Code(s): R41.89 - Other symptoms and signs involving cognitive functions and awareness Plan 82 year old male with history hyperlipidemia, tubular adenoma colon (last colonoscopy 12/21), BPH, chronic normocytic anemia, osteoarthritis shoulders and hips s/p b/l hip arthroplasty, chronic low back pain with lumbar stenosis, depression, hx rotator cuff tear, actinic keratosis, and atypical melanocytic hyperplasia admitted to geriatric psychiatry from [facility] with consult placed to medical hospitalist service for medical H&P. 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 Can use ibuprofen 600mg q6h prn as well if topical diclofenac unavailable. #Chronic left hip pain -per ED provider note at [facility], patient foot got stuck in a hole several months ago and fell onto the left hip. Subsequent imaging studies including x-ray of the hip/pelvis and CT of the pelvis are negative for fracture -Pain management as above -outpt follow up Pt refused physical extensive. Extensive review of prior note and records from [facility] conducted as noted above. Plan 1. The patient now has a guardian and we are trying to look for placement since he does not have a home for himself for social support in the community. 2. Continue with Zyprexa as a mood stabilizer. 3. Increase Lamictal up to 25 p.o. b.i.d. on December 17 to target dysphoria. On January 03 we are increasing up to 50 mg p.o. b.i.d. to target depression. More January 21 we decided to increase Lamictal up to 100 mg p.o. b.i.d. to target depression 4. Waiting for placement. 5. Dulcolax p.r.n. constipation Reason for continued inpatient stay Substantial Risk for: inability to function, rapid decompensation and med/psych decompensation Time Spent With Patient Time: Total time managing care of this patient today __20__ minutes.
[2023-01-29 18:00] VITALS: BP 135/80; PULSE 64; RESP 18; TEMP 36.5; O2SAT 95
[2023-01-29] MEDS: OLANZapine 10 MG TABLET PO (21:04)
[2023-01-29] MEDS: hydrOXYzine HCL 25 MG TABLET PO (21:05)
[2023-01-30] MEDS: OLANZapine 2.5 MG TABLET PO (03:41)
[2023-01-30] MEDS: hydrOXYzine HCL 25 MG TABLET PO (03:41)
[2023-01-30 07:55] VITALS: BP 133/66; PULSE 64; RESP 18; TEMP 36.3; O2SAT 95
[2023-01-30] MEDS: Acetaminophen 325 MG TABLET 975 MG PO ×3 (08:52→20:35)
[2023-01-30] MEDS: Memantine HCl 10 MG TABLET PO ×2 (08:52→20:37)
[2023-01-30] MEDS: lamoTRIgine 100 MG TABLET PO ×2 (08:52→20:37)
[2023-01-30] MEDS: Lidocaine 4 % Patch ADH..PATCH 1 PATCH TRANSDERMA (09:12)
[2023-01-30] MEDS: bisacodyL 5 MG TABLET.DR 10 MG PO (09:13)
--- NOTE | 2023-01-30 12:31 | P.PNPSI_ITS ---
Subjective Subjective Date of Service: 01/30/23 Reason For Visit: F31.9, F43.25 Subjective Notes: Section 7 and Section 8 Interim History: The nursing staff reported the patient had been compliant with treatment, no major changes in his mental status. On interview the patient denies new symptoms, waiting for placement. Mental Status Exam Mental Status Exam Patient Appearance: Appropriate and Unkempt Patient Orientation: Person and Situation Level of Consciousness: Awake and Appropriate Patient Behavior: Guarded and Passive Mood Description: Withdrawn Affect Description: Constricted Patient Cognition Impaired: Yes Ability to Follow Directions: Good Speech Pattern: Clear Hallucinations: None Delusions: Not Present Thought Process: Distracted and Slowed Thinking Thought Content: positive for [place] and positive for Poverty of Content Judgement: Fair Diagnostics Vital Signs (24Hr): Vital Signs - 24 hr 01/29/23 18:00 01/30/23 07:55 Temperature 97.7 F 97.3 F Pulse Rate 64 64 Respiratory Rate 18 18 Blood Pressure 135/80 133/66 Pulse Oximetry 95 95 Oxygen Delivery Method Room Air Room Air BMI result Body Mass Index 27.4 Labs 12/03/22 11:52 Medications Medications Current Medications Acetaminophen (Acetaminophen 325 Mg Tablet) 975 mg PO TID [facility] Last Admin: 01/30/23 08:52 Dose: 975 mg Al Hydroxide/Mg Hydroxide (Magnesium Hydrox/Alum Hydrox 30 Ml Oral.Susp) 30 ml PO Q6H PRN PRN Reason: Heartburn/Nausea Bisacodyl (Bisacodyl 5 Mg Tablet.Dr) 10 mg PO DAILY PRN PRN Reason: Constipation Last Admin: 01/30/23 09:13 Dose: 10 mg Hydroxyzine HCl (Hydroxyzine Hcl 25 Mg Tablet) 25 mg PO Q6H PRN PRN Reason: Anxiety Last Admin: 01/30/23 03:41 Dose: 25 mg Lamotrigine (Lamotrigine 100 Mg Tablet) 100 mg PO BID [facility] Last Admin: 01/30/23 08:52 Dose: 100 mg Lidocaine (Lidocaine 4 % Patch Adh..Patch) 1 patch TRANSDERMA DAILY [facility]; Protocol Last Admin: 01/30/23 09:12 Dose: 1 patch Magnesium Hydroxide (Milk Of Magnesia 30 Ml Oral.Susp) 30 ml PO DAILY PRN PRN Reason: Constipation Last Admin: 01/29/23 14:17 Dose: 30 ml Memantine (Memantine Hcl 10 Mg Tablet) 10 mg PO BID [facility] Last Admin: 01/30/23 08:52 Dose: 10 mg Olanzapine (Olanzapine 2.5 Mg Tablet) 2.5 mg PO TID PRN PRN Reason: agitation Last Admin: 01/30/23 03:41 Dose: 2.5 mg Olanzapine (Olanzapine 10 Mg Tablet) 10 mg PO BEDTIME [facility] Last Admin: 01/29/23 21:04 Dose: 10 mg Allergies Allergies Allergy/AdvReac Type Severity Reaction Status Date / Time pollen extracts Allergy Unknown unknown Verified 04/21/22 14:56 latex Allergy Rash Verified 10/31/22 18:30 Assessment & Plan Assessment & Plan (1) Bipolar disorder, now depressed: Status: Acute Code(s): F31.30 - Bipolar disorder, current episode depressed, mild or moderate severity, unspecified (2) Cognitive impairment: Status: Acute Code(s): R41.89 - Other symptoms and signs involving cognitive functions and awareness Plan 82 year old male with history hyperlipidemia, tubular adenoma colon (last colonoscopy 12/21), BPH, chronic normocytic anemia, osteoarthritis shoulders and hips s/p b/l hip arthroplasty, chronic low back pain with lumbar stenosis, depression, hx rotator cuff tear, actinic keratosis, and atypical melanocytic hyperplasia admitted to geriatric psychiatry from [facility] with consult placed to medical hospitalist service for medical H&P. 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 Can use ibuprofen 600mg q6h prn as well if topical diclofenac unavailable. #Chronic left hip pain -per ED provider note at [facility], patient foot got stuck in a hole several months ago and fell onto the left hip. Subsequent imaging studies including x-ray of the hip/pelvis and CT of the pelvis are negative for fracture -Pain management as above -outpt follow up Pt refused physical extensive. Extensive review of prior note and records from [facility] conducted as noted above. Plan 1. The patient now has a guardian and we are trying to look for placement since he does not have a home for himself for social support in the community. 2. Continue with Zyprexa as a mood stabilizer. 3. Increase Lamictal up to 25 p.o. b.i.d. on December 17 to target dysphoria. On January 03 we are increasing up to 50 mg p.o. b.i.d. to target depression. More January 21 we decided to increase Lamictal up to 100 mg p.o. b.i.d. to target depression 4. Waiting for placement. 5. Dulcolax p.r.n. constipation Reason for continued inpatient stay Substantial Risk for: inability to function, rapid decompensation and med/psych decompensation Time Spent With Patient Time: Total time managing care of this patient today __20__ minutes.
[2023-01-30 18:00] VITALS: BP 107/53; PULSE 76; RESP 18; TEMP 36.4; O2SAT 92
[2023-01-30] MEDS: OLANZapine 10 MG TABLET PO (20:37)
[2023-01-31 07:00] VITALS: BMI 27.2
[2023-01-31 08:40] VITALS: BP 107/59; PULSE 70; RESP 18; TEMP 36.3; O2SAT 94
[2023-01-31] MEDS: lamoTRIgine 100 MG TABLET PO ×2 (09:00→20:05)
[2023-01-31] MEDS: Acetaminophen 325 MG TABLET 975 MG PO ×3 (09:00→20:04)
[2023-01-31] MEDS: Memantine HCl 10 MG TABLET PO ×2 (09:00→20:05)
--- NOTE | 2023-01-31 13:45 | P.PNPSI_ITS ---
Subjective Subjective Date of Service: 01/31/23 Reason For Visit: F31.9, F43.25 Subjective Notes: Conditional Voluntary Interim History: The nursing staff reported the patient had been compliant with treatment, no new symptoms. The occupational therapist reported that he has attended only to 1 group last night. On interview the patient denies new symptoms, waiting for placement. Mental Status Exam Mental Status Exam Patient Appearance: Well Grooomed and Appropriate Patient Orientation: Person and Situation Level of Consciousness: Awake and Appropriate Patient Behavior: Guarded and Passive Mood Description: Withdrawn Affect Description: Calm Patient Cognition Impaired: Yes Ability to Follow Directions: Good Speech Pattern: Clear Hallucinations: None Delusions: Not Present Thought Process: Distracted and Linear Thought Content: positive for [place] and positive for Poverty of Content Judgement: Fair Diagnostics Vital Signs (24Hr): Vital Signs - 24 hr 01/30/23 18:00 01/31/23 08:40 Temperature 97.6 F 97.3 F Pulse Rate 76 70 Respiratory Rate 18 18 Blood Pressure 107/53 L 107/59 L Pulse Oximetry 92 94 Oxygen Delivery Method Room Air Room Air BMI result Body Mass Index 27.4 Labs 12/03/22 11:52 Medications Medications Current Medications Acetaminophen (Acetaminophen 325 Mg Tablet) 975 mg PO TID [facility] Last Admin: 01/31/23 09:00 Dose: 975 mg Al Hydroxide/Mg Hydroxide (Magnesium Hydrox/Alum Hydrox 30 Ml Oral.Susp) 30 ml PO Q6H PRN PRN Reason: Heartburn/Nausea Bisacodyl (Bisacodyl 5 Mg Tablet.Dr) 10 mg PO DAILY PRN PRN Reason: Constipation Last Admin: 01/30/23 09:13 Dose: 10 mg Hydroxyzine HCl (Hydroxyzine Hcl 25 Mg Tablet) 25 mg PO Q6H PRN PRN Reason: Anxiety Last Admin: 01/30/23 03:41 Dose: 25 mg Lamotrigine (Lamotrigine 100 Mg Tablet) 100 mg PO BID [facility] Last Admin: 01/31/23 09:00 Dose: 100 mg Lidocaine (Lidocaine 4 % Patch Adh..Patch) 1 patch TRANSDERMA DAILY [facility]; Protocol Last Admin: 01/31/23 09:04 Dose: Not Given Magnesium Hydroxide (Milk Of Magnesia 30 Ml Oral.Susp) 30 ml PO DAILY PRN PRN Reason: Constipation Last Admin: 01/29/23 14:17 Dose: 30 ml Memantine (Memantine Hcl 10 Mg Tablet) 10 mg PO BID [facility] Last Admin: 01/31/23 09:00 Dose: 10 mg Olanzapine (Olanzapine 2.5 Mg Tablet) 2.5 mg PO TID PRN PRN Reason: agitation Last Admin: 01/30/23 03:41 Dose: 2.5 mg Olanzapine (Olanzapine 10 Mg Tablet) 10 mg PO BEDTIME [facility] Last Admin: 01/30/23 20:37 Dose: 10 mg Allergies Allergies Allergy/AdvReac Type Severity Reaction Status Date / Time pollen extracts Allergy Unknown unknown Verified 04/21/22 14:56 latex Allergy Rash Verified 10/31/22 18:30 Assessment & Plan Assessment & Plan (1) Bipolar disorder, now depressed: Status: Acute Code(s): F31.30 - Bipolar disorder, current episode depressed, mild or moderate severity, unspecified (2) Cognitive impairment: Status: Acute Code(s): R41.89 - Other symptoms and signs involving cognitive functions and awareness Plan 82 year old male with history hyperlipidemia, tubular adenoma colon (last colonoscopy 12/21), BPH, chronic normocytic anemia, osteoarthritis shoulders and hips s/p b/l hip arthroplasty, chronic low back pain with lumbar stenosis, depression, hx rotator cuff tear, actinic keratosis, and atypical melanocytic hyperplasia admitted to geriatric psychiatry from [facility] with consult placed to medical hospitalist service for medical H&P. 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 Can use ibuprofen 600mg q6h prn as well if topical diclofenac unavailable. #Chronic left hip pain -per ED provider note at [facility], patient foot got stuck in a hole several months ago and fell onto the left hip. Subsequent imaging studies including x-ray of the hip/pelvis and CT of the pelvis are negative for fracture -Pain management as above -outpt follow up Pt refused physical extensive. Extensive review of prior note and records from [facility] conducted as noted above. Plan 1. The patient now has a guardian and we are trying to look for placement since he does not have a home for himself for social support in the community. 2. Continue with Zyprexa as a mood stabilizer. 3. Increase Lamictal up to 25 p.o. b.i.d. on December 17 to target dysphoria. On January 03 we are increasing up to 50 mg p.o. b.i.d. to target depression. More January 21 we decided to increase Lamictal up to 100 mg p.o. b.i.d. to target depression 4. Waiting for placement. 5. Dulcolax p.r.n. constipation Reason for continued inpatient stay Substantial Risk for: inability to function, rapid decompensation and med/psych decompensation Time Spent With Patient Time: Total time managing care of this patient today __20__ minutes.
[2023-01-31 19:35] VITALS: BP 113/56; PULSE 67; RESP 18; TEMP 36.4; O2SAT 96
[2023-01-31] MEDS: OLANZapine 10 MG TABLET PO (20:05)
[2023-02-01 08:00] VITALS: BP 138/73; PULSE 62; RESP 18; TEMP 36.3; O2SAT 95
[2023-02-01] MEDS: Acetaminophen 325 MG TABLET 975 MG PO ×3 (08:27→19:56)
[2023-02-01] MEDS: Lidocaine 4 % Patch ADH..PATCH 1 PATCH TRANSDERMA (08:27)
[2023-02-01] MEDS: Memantine HCl 10 MG TABLET PO ×2 (08:28→19:57)
[2023-02-01] MEDS: lamoTRIgine 100 MG TABLET PO ×2 (08:28→19:57)
--- NOTE | 2023-02-01 14:17 | P.PNPSI_ITS ---
Subjective Subjective Date of Service: 02/01/23 Reason For Visit: F31.9, F43.25 Subjective Notes: Section 7 and Section 8 Interim History: The nursing staff reported the patient had been up last night very readable. He had been confused and wandering. On interview the patient denies new symptoms, waiting for placement. Mental Status Exam Mental Status Exam Patient Appearance: Well Grooomed and Appropriate Patient Orientation: Person and Situation Level of Consciousness: Awake and Appropriate Patient Behavior: Appropriate and Passive Affect Description: Constricted Patient Cognition Impaired: Yes Ability to Follow Directions: Good Speech Pattern: Clear Hallucinations: None Delusions: Not Present Thought Process: Distracted and Evasive Thought Content: positive for [place] and positive for Poverty of Content Judgement: Poor Diagnostics Vital Signs (24Hr): Vital Signs - 24 hr 01/31/23 19:35 02/01/23 08:00 Temperature 97.6 F 97.3 F Pulse Rate 67 62 Respiratory Rate 18 18 Blood Pressure 113/56 L 138/73 Pulse Oximetry 96 95 Oxygen Delivery Method Room Air Room Air BMI result Body Mass Index 27.2 Labs 12/03/22 11:52 Medications Medications Current Medications Acetaminophen (Acetaminophen 325 Mg Tablet) 975 mg PO TID [facility] Last Admin: 02/01/23 08:27 Dose: 975 mg Al Hydroxide/Mg Hydroxide (Magnesium Hydrox/Alum Hydrox 30 Ml Oral.Susp) 30 ml PO Q6H PRN PRN Reason: Heartburn/Nausea Bisacodyl (Bisacodyl 5 Mg Tablet.Dr) 10 mg PO DAILY PRN PRN Reason: Constipation Last Admin: 01/30/23 09:13 Dose: 10 mg Hydroxyzine HCl (Hydroxyzine Hcl 25 Mg Tablet) 25 mg PO Q6H PRN PRN Reason: Anxiety Last Admin: 01/30/23 03:41 Dose: 25 mg Lamotrigine (Lamotrigine 100 Mg Tablet) 100 mg PO BID [facility] Last Admin: 02/01/23 08:28 Dose: 100 mg Lidocaine (Lidocaine 4 % Patch Adh..Patch) 1 patch TRANSDERMA DAILY [facility]; Protocol Last Admin: 02/01/23 08:27 Dose: 1 patch Magnesium Hydroxide (Milk Of Magnesia 30 Ml Oral.Susp) 30 ml PO DAILY PRN PRN Reason: Constipation Last Admin: 01/29/23 14:17 Dose: 30 ml Memantine (Memantine Hcl 10 Mg Tablet) 10 mg PO BID [facility] Last Admin: 02/01/23 08:28 Dose: 10 mg Olanzapine (Olanzapine 2.5 Mg Tablet) 2.5 mg PO TID PRN PRN Reason: agitation Last Admin: 01/30/23 03:41 Dose: 2.5 mg Olanzapine (Olanzapine 10 Mg Tablet) 10 mg PO BEDTIME [facility] Last Admin: 01/31/23 20:05 Dose: 10 mg Allergies Allergies Allergy/AdvReac Type Severity Reaction Status Date / Time pollen extracts Allergy Unknown unknown Verified 04/21/22 14:56 latex Allergy Rash Verified 10/31/22 18:30 Assessment & Plan Assessment & Plan (1) Bipolar disorder, now depressed: Status: Acute Code(s): F31.30 - Bipolar disorder, current episode depressed, mild or moderate severity, unspecified (2) Cognitive impairment: Status: Acute Code(s): R41.89 - Other symptoms and signs involving cognitive functions and awareness Plan 82 year old male with history hyperlipidemia, tubular adenoma colon (last colonoscopy 12/21), BPH, chronic normocytic anemia, osteoarthritis shoulders and hips s/p b/l hip arthroplasty, chronic low back pain with lumbar stenosis, depression, hx rotator cuff tear, actinic keratosis, and atypical melanocytic hyperplasia admitted to geriatric psychiatry from [facility] with consult placed to medical hospitalist service for medical H&P. 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 Can use ibuprofen 600mg q6h prn as well if topical diclofenac unavailable. #Chronic left hip pain -per ED provider note at [facility], patient foot got stuck in a hole several months ago and fell onto the left hip. Subsequent imaging studies including x-ray of the hip/pelvis and CT of the pelvis are negative for fracture -Pain management as above -outpt follow up Pt refused physical extensive. Extensive review of prior note and records from [facility] conducted as noted above. Plan 1. The patient now has a guardian and we are trying to look for placement since he does not have a home for himself for social support in the community. 2. Continue with Zyprexa as a mood stabilizer. 3. Increase Lamictal up to 25 p.o. b.i.d. on December 17 to target dysphoria. On January 03 we are increasing up to 50 mg p.o. b.i.d. to target depression. More January 21 we decided to increase Lamictal up to 100 mg p.o. b.i.d. to target depression 4. Waiting for placement. 5. Dulcolax p.r.n. constipation Reason for continued inpatient stay Substantial Risk for: inability to function, rapid decompensation and med/psych decompensation Time Spent With Patient Time: Total time managing care of this patient today _20___ minutes.
[2023-02-01 18:00] VITALS: BP 121/61; PULSE 63; RESP 18; TEMP 36.1; O2SAT 96
[2023-02-01] MEDS: OLANZapine 10 MG TABLET PO (19:56)
[2023-02-02] MEDS: hydrOXYzine HCL 25 MG TABLET PO (00:36)
[2023-02-02 08:00] VITALS: BP 131/63; PULSE 67; RESP 18; TEMP 36.7; O2SAT 94
[2023-02-02] MEDS: Acetaminophen 325 MG TABLET 975 MG PO ×3 (08:43→21:21)
[2023-02-02] MEDS: Memantine HCl 10 MG TABLET PO ×2 (08:44→21:23)
[2023-02-02] MEDS: lamoTRIgine 100 MG TABLET PO ×2 (08:44→21:23)
--- NOTE | 2023-02-02 09:24 | P.PNPSI_ITS ---
Subjective Subjective Date of Service: 02/02/23 Reason For Visit: F31.9, F43.25 Subjective Notes: Conditional Voluntary Interim History: The nursing staff reported that she he had been pleasant, medication compliant. Last night he had a nightmare. On interview I explained that I can give him prazosin for nightmares and he will think about it. Mental Status Exam Mental Status Exam Patient Appearance: Appropriate and Unkempt Patient Orientation: Person and Situation Level of Consciousness: Awake and Appropriate Patient Behavior: Guarded and Passive Mood Description: Withdrawn Affect Description: Constricted Patient Cognition Impaired: Yes Ability to Follow Directions: Good Speech Pattern: Clear Hallucinations: None Delusions: Not Present Thought Process: Distracted and Slowed Thinking Thought Content: positive for [place] and positive for Poverty of Content Judgement: Poor Diagnostics Vital Signs (24Hr): Vital Signs - 24 hr 02/01/23 18:00 Temperature 96.9 F Pulse Rate 63 Respiratory Rate 18 Blood Pressure 121/61 Pulse Oximetry 96 Oxygen Delivery Method Room Air BMI result Body Mass Index 27.2 Labs 12/03/22 11:52 Medications Medications Current Medications Acetaminophen (Acetaminophen 325 Mg Tablet) 975 mg PO TID [facility] Last Admin: 02/02/23 08:43 Dose: 975 mg Al Hydroxide/Mg Hydroxide (Magnesium Hydrox/Alum Hydrox 30 Ml Oral.Susp) 30 ml PO Q6H PRN PRN Reason: Heartburn/Nausea Bisacodyl (Bisacodyl 5 Mg Tablet.Dr) 10 mg PO DAILY PRN PRN Reason: Constipation Last Admin: 01/30/23 09:13 Dose: 10 mg Hydroxyzine HCl (Hydroxyzine Hcl 25 Mg Tablet) 25 mg PO Q6H PRN PRN Reason: Anxiety Last Admin: 02/02/23 00:36 Dose: 25 mg Lamotrigine (Lamotrigine 100 Mg Tablet) 100 mg PO BID [facility] Last Admin: 02/02/23 08:44 Dose: 100 mg Lidocaine (Lidocaine 4 % Patch Adh..Patch) 1 patch TRANSDERMA DAILY [facility]; Protocol Last Admin: 02/02/23 08:44 Dose: Not Given Magnesium Hydroxide (Milk Of Magnesia 30 Ml Oral.Susp) 30 ml PO DAILY PRN PRN Reason: Constipation Last Admin: 01/29/23 14:17 Dose: 30 ml Memantine (Memantine Hcl 10 Mg Tablet) 10 mg PO BID [facility] Last Admin: 02/02/23 08:44 Dose: 10 mg Olanzapine (Olanzapine 2.5 Mg Tablet) 2.5 mg PO TID PRN PRN Reason: agitation Last Admin: 01/30/23 03:41 Dose: 2.5 mg Olanzapine (Olanzapine 10 Mg Tablet) 10 mg PO BEDTIME [facility] Last Admin: 02/01/23 19:56 Dose: 10 mg Allergies Allergies Allergy/AdvReac Type Severity Reaction Status Date / Time pollen extracts Allergy Unknown unknown Verified 04/21/22 14:56 latex Allergy Rash Verified 10/31/22 18:30 Assessment & Plan Assessment & Plan (1) Bipolar disorder, now depressed: Status: Acute Code(s): F31.30 - Bipolar disorder, current episode depressed, mild or moderate severity, unspecified (2) Cognitive impairment: Status: Acute Code(s): R41.89 - Other symptoms and signs involving cognitive functions and awareness Plan 82 year old male with history hyperlipidemia, tubular adenoma colon (last colonoscopy 12/21), BPH, chronic normocytic anemia, osteoarthritis shoulders and hips s/p b/l hip arthroplasty, chronic low back pain with lumbar stenosis, depression, hx rotator cuff tear, actinic keratosis, and atypical melanocytic hyperplasia admitted to geriatric psychiatry from [facility] with consult placed to medical hospitalist service for medical H&P. 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 Can use ibuprofen 600mg q6h prn as well if topical diclofenac unavailable. #Chronic left hip pain -per ED provider note at [facility], patient foot got stuck in a hole several months ago and fell onto the left hip. Subsequent imaging studies including x-ray of the hip/pelvis and CT of the pelvis are negative for fracture -Pain management as above -outpt follow up Pt refused physical extensive. Extensive review of prior note and records from [facility] conducted as noted above. Plan 1. The patient now has a guardian and we are trying to look for placement since he does not have a home for himself for social support in the community. 2. Continue with Zyprexa as a mood stabilizer. 3. Increase Lamictal up to 25 p.o. b.i.d. on December 17 to target dysphoria. On January 03 we are increasing up to 50 mg p.o. b.i.d. to target depression. More January 21 we decided to increase Lamictal up to 100 mg p.o. b.i.d. to target depression 4. Waiting for placement. 5. Dulcolax p.r.n. constipation Reason for continued inpatient stay Substantial Risk for: inability to function, rapid decompensation and med/psych decompensation Time Spent With Patient Time: Total time managing care of this patient today __20__ minutes.
[2023-02-02 18:00] VITALS: BP 111/58; PULSE 62; RESP 16; TEMP 36.2; O2SAT 93
[2023-02-02] MEDS: OLANZapine 10 MG TABLET PO (21:23)
[2023-02-03] MEDS: OLANZapine 2.5 MG TABLET PO (04:05)
[2023-02-03 06:00] VITALS: BP 120/58; PULSE 82; RESP 18; TEMP 36.6; O2SAT 95
[2023-02-03] MEDS: Acetaminophen 325 MG TABLET 975 MG PO ×3 (08:43→20:54)
[2023-02-03] MEDS: lamoTRIgine 100 MG TABLET PO ×2 (08:43→20:55)
[2023-02-03] MEDS: Lidocaine 4 % Patch ADH..PATCH 1 PATCH TRANSDERMA (08:44)
[2023-02-03] MEDS: Memantine HCl 10 MG TABLET PO ×2 (08:44→20:55)
--- NOTE | 2023-02-03 10:36 | HO.PSYCHPN ---
Subjective Subjective Date of Service: 02/03/23 Reason For Visit: F31.9, F43.25 Subjective Notes: Section 7 and Section 8 Interim History: The nursing staff reported the patient is alert x1, pleasant, compliant with treatment, he slept well last night. On interview the patient denies new symptoms, waiting for placement. Mental Status Exam Mental Status Exam Patient Appearance: Well Grooomed and Appropriate Patient Orientation: Person and Situation Level of Consciousness: Awake and Appropriate Patient Behavior: Guarded and Passive Mood Description: Withdrawn Affect Description: Constricted Patient Cognition Impaired: Yes Ability to Follow Directions: Good Speech Pattern: Clear Hallucinations: None Delusions: Not Present Thought Process: Distracted and Linear Thought Content: positive for [place], positive for [place] and positive for Poverty of Content Judgement: Poor Diagnostics Vital Signs (24Hr): Vital Signs - 24 hr 02/02/23 18:00 02/03/23 06:00 Temperature 97.2 F 97.8 F Pulse Rate 62 82 Respiratory Rate 16 18 Blood Pressure 111/58 L 120/58 L Pulse Oximetry 93 95 Oxygen Delivery Method Room Air Room Air BMI result Body Mass Index 27.2 Labs 12/03/22 11:52 Medications Medications Current Medications Acetaminophen (Acetaminophen 325 Mg Tablet) 975 mg PO TID [facility] Last Admin: 02/03/23 08:43 Dose: 975 mg Al Hydroxide/Mg Hydroxide (Magnesium Hydrox/Alum Hydrox 30 Ml Oral.Susp) 30 ml PO Q6H PRN PRN Reason: Heartburn/Nausea Bisacodyl (Bisacodyl 5 Mg Tablet.Dr) 10 mg PO DAILY PRN PRN Reason: Constipation Last Admin: 01/30/23 09:13 Dose: 10 mg Hydroxyzine HCl (Hydroxyzine Hcl 25 Mg Tablet) 25 mg PO Q6H PRN PRN Reason: Anxiety Last Admin: 02/02/23 00:36 Dose: 25 mg Lamotrigine (Lamotrigine 100 Mg Tablet) 100 mg PO BID [facility] Last Admin: 02/03/23 08:43 Dose: 100 mg Lidocaine (Lidocaine 4 % Patch Adh..Patch) 1 patch TRANSDERMA DAILY [facility]; Protocol Last Admin: 02/03/23 08:44 Dose: 1 patch Magnesium Hydroxide (Milk Of Magnesia 30 Ml Oral.Susp) 30 ml PO DAILY PRN PRN Reason: Constipation Last Admin: 10/31/23 14:17 Dose: 30 ml Memantine (Memantine Hcl 10 Mg Tablet) 10 mg PO BID [facility] Last Admin: 02/03/23 08:44 Dose: 10 mg Olanzapine (Olanzapine 2.5 Mg Tablet) 2.5 mg PO TID PRN PRN Reason: agitation Last Admin: 02/03/23 04:05 Dose: 2.5 mg Olanzapine (Olanzapine 10 Mg Tablet) 10 mg PO BEDTIME [facility] Last Admin: 02/02/23 21:23 Dose: 10 mg Allergies Allergies Allergy/AdvReac Type Severity Reaction Status Date / Time pollen extracts Allergy Unknown unknown Verified 04/21/22 14:56 latex Allergy Rash Verified 10/31/22 18:30 Assessment & Plan Assessment & Plan (1) Bipolar disorder, now depressed: Status: Acute Code(s): F31.30 - Bipolar disorder, current episode depressed, mild or moderate severity, unspecified (2) Cognitive impairment: Status: Acute Code(s): R41.89 - Other symptoms and signs involving cognitive functions and awareness Plan 82 year old male with history hyperlipidemia, tubular adenoma colon (last colonoscopy 12/21), BPH, chronic normocytic anemia, osteoarthritis shoulders and hips s/p b/l hip arthroplasty, chronic low back pain with lumbar stenosis, depression, hx rotator cuff tear, actinic keratosis, and atypical melanocytic hyperplasia admitted to geriatric psychiatry from [facility] with consult placed to medical hospitalist service for medical H&P. 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 Can use ibuprofen 600mg q6h prn as well if topical diclofenac unavailable. #Chronic left hip pain -per ED provider note at [facility], patient foot got stuck in a hole several months ago and fell onto the left hip. Subsequent imaging studies including x-ray of the hip/pelvis and CT of the pelvis are negative for fracture -Pain management as above -outpt follow up Pt refused physical extensive. Extensive review of prior note and records from [facility] conducted as noted above. Plan 1. The patient now has a guardian and we are trying to look for placement since he does not have a home for himself for social support in the community. 2. Continue with Zyprexa as a mood stabilizer. 3. Increase Lamictal up to 25 p.o. b.i.d. on December 17 to target dysphoria. On January 03 we are increasing up to 50 mg p.o. b.i.d. to target depression. More January 21 we decided to increase Lamictal up to 100 mg p.o. b.i.d. to target depression 4. Waiting for placement. 5. Dulcolax p.r.n. constipation Reason for continued inpatient stay Substantial Risk for: inability to function, rapid decompensation and med/psych decompensation Time Spent With Patient Time: Total time managing care of this patient today __20__ minutes.
[2023-02-03 18:00] VITALS: BP 114/59; PULSE 63; RESP 18; TEMP 36.3; O2SAT 96
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
[2023-02-03] MEDS: OLANZapine 10 MG TABLET PO (20:55)
[2023-02-04 08:00] VITALS: BP 128/67; PULSE 67; TEMP 36.8; O2SAT 94
[2023-02-04] MEDS: Lidocaine 4 % Patch ADH..PATCH 1 PATCH TRANSDERMA (09:03)
[2023-02-04] MEDS: Acetaminophen 325 MG TABLET 975 MG PO ×3 (09:03→21:44)
[2023-02-04] MEDS: Memantine HCl 10 MG TABLET PO ×2 (09:04→21:47)
[2023-02-04] MEDS: lamoTRIgine 100 MG TABLET PO ×2 (09:04→21:46)
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
[2023-02-04 18:00] VITALS: BP 128/59; PULSE 60; RESP 16; TEMP 36.2; O2SAT 91
[2023-02-04] MEDS: hydrOXYzine HCL 25 MG TABLET PO (21:46)
[2023-02-04] MEDS: OLANZapine 10 MG TABLET PO (21:46)
[2023-02-05 08:15] VITALS: BP 112/67; PULSE 71; RESP 18; TEMP 36.2; O2SAT 95
[2023-02-05] MEDS: Lidocaine 4 % Patch ADH..PATCH 1 PATCH TRANSDERMA (09:16)
[2023-02-05] MEDS: lamoTRIgine 100 MG TABLET PO ×2 (09:17→20:39)
[2023-02-05] MEDS: Acetaminophen 325 MG TABLET 975 MG PO ×3 (09:17→20:38)
--- NOTE | 2023-02-05 12:19 | HO.PSYCHPN ---
Subjective Subjective Date of Service: 02/05/23 Reason For Visit: F31.9, F43.25 Subjective Notes: Conditional Voluntary Interim History: The nursing staff reported the patient had been compliant with treatment, took a shower yesterday. No new symptoms. Waiting for placement. Today the patient sign a CV is stating that he wants to have a place to go. No new symptoms. Mental Status Exam Mental Status Exam Patient Appearance: Appropriate Patient Orientation: Person and Situation Level of Consciousness: Awake and Appropriate Patient Behavior: Guarded and Passive Mood Description: Withdrawn and Constricted Affect Description: Constricted Patient Cognition Impaired: Yes Ability to Follow Directions: Good Speech Pattern: Clear Hallucinations: None Delusions: Not Present Thought Process: Distracted and Linear Thought Content: positive for [place] and positive for Poverty of Content Judgement: Fair Diagnostics Vital Signs (24Hr): Vital Signs - 24 hr 02/04/23 18:00 02/05/23 08:15 Temperature 97.2 F 97.1 F Pulse Rate 60 71 Respiratory Rate 16 18 Blood Pressure 128/59 L 112/67 Pulse Oximetry 91 L 95 Oxygen Delivery Method Room Air Room Air BMI result Body Mass Index 27.2 Labs 12/03/22 11:52 Medications Medications Current Medications Acetaminophen (Acetaminophen 325 Mg Tablet) 975 mg PO TID [facility] Last Admin: 02/05/23 09:17 Dose: 975 mg Al Hydroxide/Mg Hydroxide (Magnesium Hydrox/Alum Hydrox 30 Ml Oral.Susp) 30 ml PO Q6H PRN PRN Reason: Heartburn/Nausea Bisacodyl (Bisacodyl 5 Mg Tablet.Dr) 10 mg PO DAILY PRN PRN Reason: Constipation Last Admin: 01/30/23 09:13 Dose: 10 mg Hydroxyzine HCl (Hydroxyzine Hcl 25 Mg Tablet) 25 mg PO Q6H PRN PRN Reason: Anxiety Last Admin: 02/04/23 21:46 Dose: 25 mg Lamotrigine (Lamotrigine 100 Mg Tablet) 100 mg PO BID [facility] Last Admin: 02/05/23 09:17 Dose: 100 mg Lidocaine (Lidocaine 4 % Patch Adh..Patch) 1 patch TRANSDERMA DAILY [facility]; Protocol Last Admin: 02/05/23 09:16 Dose: 1 patch Magnesium Hydroxide (Milk Of Magnesia 30 Ml Oral.Susp) 30 ml PO DAILY PRN PRN Reason: Constipation Last Admin: 01/29/23 14:17 Dose: 30 ml Olanzapine (Olanzapine 2.5 Mg Tablet) 2.5 mg PO TID PRN PRN Reason: agitation Last Admin: 02/03/23 04:05 Dose: 2.5 mg Olanzapine (Olanzapine 10 Mg Tablet) 10 mg PO BEDTIME [facility] Last Admin: 02/04/23 21:46 Dose: 10 mg Allergies Allergies Allergy/AdvReac Type Severity Reaction Status Date / Time pollen extracts Allergy Unknown unknown Verified 04/21/22 14:56 latex Allergy Rash Verified 10/31/22 18:30 Assessment & Plan Assessment & Plan (1) Bipolar disorder, now depressed: Status: Acute Code(s): F31.30 - Bipolar disorder, current episode depressed, mild or moderate severity, unspecified (2) Cognitive impairment: Status: Acute Code(s): R41.89 - Other symptoms and signs involving cognitive functions and awareness Plan 82 year old male with history hyperlipidemia, tubular adenoma colon (last colonoscopy 12/21), BPH, chronic normocytic anemia, osteoarthritis shoulders and hips s/p b/l hip arthroplasty, chronic low back pain with lumbar stenosis, depression, hx rotator cuff tear, actinic keratosis, and atypical melanocytic hyperplasia admitted to geriatric psychiatry from [facility] with consult placed to medical hospitalist service for medical H&P. 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 Can use ibuprofen 600mg q6h prn as well if topical diclofenac unavailable. #Chronic left hip pain -per ED provider note at [facility], patient foot got stuck in a hole several months ago and fell onto the left hip. Subsequent imaging studies including x-ray of the hip/pelvis and CT of the pelvis are negative for fracture -Pain management as above -outpt follow up Pt refused physical extensive. Extensive review of prior note and records from [facility] conducted as noted above. Plan 1. The patient now has a guardian and we are trying to look for placement since he does not have a home for himself for social support in the community. 2. Continue with Zyprexa as a mood stabilizer. 3. Increase Lamictal up to 25 p.o. b.i.d. on December 17 to target dysphoria. On January 03 we are increasing up to 50 mg p.o. b.i.d. to target depression. More January 21 we decided to increase Lamictal up to 100 mg p.o. b.i.d. to target depression 4. Waiting for placement. 5. Dulcolax p.r.n. constipation Reason for continued inpatient stay Substantial Risk for: inability to function, rapid decompensation and med/psych decompensation Time Spent With Patient Time: Total time managing care of this patient today __20__ minutes.
[2023-02-05 18:00] VITALS: BP 96/52; PULSE 63; RESP 17; TEMP 36.2; O2SAT 92
[2023-02-05] MEDS: OLANZapine 10 MG TABLET PO (20:39)
[2023-02-06 08:35] VITALS: BP 122/69; PULSE 75; RESP 18; TEMP 36.3; O2SAT 96
--- NOTE | 2023-02-06 09:49 | HO.PM.IMCN ---
History of Present Illness Data of Consult Service Date: 02/06/23 Primary Care Provider: Isra Ivan MD HPI 82 year old male with history hyperlipidemia, tubular adenoma colon, BPH, chronic normocytic anemia, osteoarthritis shoulders and hips s/p b/l hip arthroplasty, chronic low back pain with lumbar stenosis, depression, hx rotator cuff tear, actinic keratosis, and atypical melanocytic hyperplasia admitted to geriatric psychiatry since September. A consult has been request for back pain. The hospitalist service has evaluated him in the past him in the past for same back pain. He related to me that his pain has been ongoing for at least a year and is not reporting singificant worsening, I observed him walking in the [place]. He has no urniary or stool incontinence, no radicolopathy. No fever or chills, no weakness in the legs. Review of Systems Review of Systems: Back pain that is chronic in nature, no incontinence urinary or donita, no fever or chills, and weakness in the legs [facility] Medical History (Updated 02/06/23 @ 10:00 by Gautam Juárez MD) Chronic back pain Bipolar disorder, now depressed Hypogonadism in male Housing situation unstable BPH loc w/o ur obs/LUTS Osteoarthritis Tubular adenoma of colon Lumbar stenosis Eczema Atypical melanocytic hyperplasia Depression Hyperlipidemia Family History Sister COPD (chronic obstructive pulmonary disease) Bipolar disorder Mother COPD (chronic obstructive pulmonary disease) CAD (coronary artery disease) Surgical History History of melanoma excision S/P inguinal hernia repair H/O colonoscopy History of bilateral hip arthroplasty Hx of repair of left rotator cuff Social History Household Members: Other Household Members Other:: other long-term members/lives in one room Housing: Other Housing Other:: long-term Do you presently have visiting nurse or other home services: No Alcohol intake: never Patient Tobacco Use Status: Never used Tobacco Smoked in Last 30 Days: No e-Cigarette/Vaping Use: Never Used Patient Interested in Nicotine Replacement: No Patient Given Instructions on How to Stop Smoking: No Second Hand Smoke Exposure: No Currently Displaying Signs/Symptoms of Drug Intoxication Withdrawal: No Advance Directives: No Advance Directives Information Provided: No Do you have thoughts of harming others: None Do you have a plan to hurt others: No Plan Recently lost weight without trying: No Eating poorly because of decreased appetite: No Nutrition Risks: No Nutritional Risk Poor oral hygiene: No service: No Sexual orientation: Straight/Heterosexual Meds Allergies Allergy/AdvReac Type Severity Reaction Status Date / Time pollen extracts Allergy Unknown unknown Verified 04/21/22 14:56 latex Allergy Rash Verified 10/31/22 18:30 Active Medications: Current Medications Acetaminophen (Acetaminophen 325 Mg Tablet) 975 mg PO TID [facility] Last Admin: 02/05/23 20:38 Dose: 975 mg Al Hydroxide/Mg Hydroxide (Magnesium Hydrox/Alum Hydrox 30 Ml Oral.Susp) 30 ml PO Q6H PRN PRN Reason: Heartburn/Nausea Bisacodyl (Bisacodyl 5 Mg Tablet.Dr) 10 mg PO DAILY PRN PRN Reason: Constipation Last Admin: 01/30/23 09:13 Dose: 10 mg Hydroxyzine HCl (Hydroxyzine Hcl 25 Mg Tablet) 25 mg PO Q6H PRN PRN Reason: Anxiety Last Admin: 02/04/23 21:46 Dose: 25 mg Lamotrigine (Lamotrigine 100 Mg Tablet) 100 mg PO BID [facility] Last Admin: 02/05/23 20:39 Dose: 100 mg Lidocaine (Lidocaine 4 % Patch Adh..Patch) 1 patch TRANSDERMA DAILY [facility]; Protocol Last Admin: 02/05/23 09:16 Dose: 1 patch Magnesium Hydroxide (Milk Of Magnesia 30 Ml Oral.Susp) 30 ml PO DAILY PRN PRN Reason: Constipation Last Admin: 01/29/23 14:17 Dose: 30 ml Olanzapine (Olanzapine 2.5 Mg Tablet) 2.5 mg PO TID PRN PRN Reason: agitation Last Admin: 02/03/23 04:05 Dose: 2.5 mg Olanzapine (Olanzapine 10 Mg Tablet) 10 mg PO BEDTIME [facility] Last Admin: 02/05/23 20:39 Dose: 10 mg Physical Exam Vital Signs and Narrative: Vital Signs: Last Vital Signs Temp 97.3 F 02/06/23 08:35 Pulse 75 02/06/23 08:35 Resp 18 02/06/23 08:35 BP 122/69 02/06/23 08:35 Pulse Ox 96 02/06/23 08:35 O2 Del Method Room Air 02/06/23 08:35 BMI result Body Mass Index 27.2 Const: Other: General: AO X 3, no acute distress Resp: CTA bilateral CVS: S1,S2,RRR GI: +BS, NT, no distention Skin: No rash Neuro: motor grossly intact, CN 2 to 12, intact, no weakness in legs, no numbess, nl ROM Psych: appropriate affect Results Labs 12/03/22 11:52 Assessment and Plan (1) Chronic back pain: Status: Acute Plan 82 year old male with history hyperlipidemia, tubular adenoma colon, BPH, chronic normocytic anemia, 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 Recommend conservative management with APAP, lidocaine patch, PT. Xray of lower back, proably won't change analyst Thanks for the consult
--- NOTE | 2023-02-06 17:43 | HO.PSYCHPN ---
Subjective Subjective Date of Service: 02/06/23 Reason For Visit: F31.9, F43.25 Interim History: met with patient; discussed with team pt says he's hanging in there; denies complaints; staff reports remains at baseline Mental Status Exam Mental Status Exam Patient Appearance: Appropriate Patient Orientation: Person and Place Level of Consciousness: Awake and Appropriate Patient Behavior: Guarded and Passive Mood Description: Withdrawn and Constricted Affect Description: Constricted Patient Cognition Impaired: Yes Ability to Follow Directions: Good Speech Pattern: Clear Hallucinations: None Delusions: Not Present Thought Process: Distracted and Linear Thought Content: positive for [place] and positive for Poverty of Content Judgement: Fair Diagnostics Vital Signs (24Hr): Vital Signs - 24 hr 02/05/23 18:00 02/06/23 08:35 Temperature 97.1 F 97.3 F Pulse Rate 63 75 Respiratory Rate 17 18 Blood Pressure 96/52 L 122/69 Pulse Oximetry 92 96 Oxygen Delivery Method Room Air Room Air BMI result Body Mass Index 27.2 Labs 12/03/22 11:52 Medications Medications Current Medications Acetaminophen (Acetaminophen 325 Mg Tablet) 975 mg PO TID [facility] Last Admin: 02/06/23 14:51 Dose: Not Given Al Hydroxide/Mg Hydroxide (Magnesium Hydrox/Alum Hydrox 30 Ml Oral.Susp) 30 ml PO Q6H PRN PRN Reason: Heartburn/Nausea Bisacodyl (Bisacodyl 5 Mg Tablet.Dr) 10 mg PO DAILY PRN PRN Reason: Constipation Last Admin: 01/30/23 09:13 Dose: 10 mg Hydroxyzine HCl (Hydroxyzine Hcl 25 Mg Tablet) 25 mg PO Q6H PRN PRN Reason: Anxiety Last Admin: 02/04/23 21:46 Dose: 25 mg Lamotrigine (Lamotrigine 100 Mg Tablet) 100 mg PO BID [facility] Last Admin: 02/06/23 11:17 Dose: Not Given Lidocaine (Lidocaine 4 % Patch Adh..Patch) 1 patch TRANSDERMA DAILY [facility]; Protocol Last Admin: 02/06/23 11:17 Dose: Not Given Magnesium Hydroxide (Milk Of Magnesia 30 Ml Oral.Susp) 30 ml PO DAILY PRN PRN Reason: Constipation Last Admin: 01/29/23 14:17 Dose: 30 ml Olanzapine (Olanzapine 2.5 Mg Tablet) 2.5 mg PO TID PRN PRN Reason: agitation Last Admin: 02/03/23 04:05 Dose: 2.5 mg Olanzapine (Olanzapine 10 Mg Tablet) 10 mg PO BEDTIME [facility] Last Admin: 02/05/23 20:39 Dose: 10 mg Allergies Allergies Allergy/AdvReac Type Severity Reaction Status Date / Time pollen extracts Allergy Unknown unknown Verified 04/21/22 14:56 latex Allergy Rash Verified 10/31/22 18:30 Assessment & Plan Assessment & Plan (1) Bipolar disorder, now depressed: Status: Acute Code(s): F31.30 - Bipolar disorder, current episode depressed, mild or moderate severity, unspecified (2) Chronic back pain: Status: Acute Code(s): M54.9 - Dorsalgia, unspecified; G89.29 - Other chronic pain Plan 82 year old male with history hyperlipidemia, tubular adenoma colon, BPH, chronic normocytic anemia, 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 02/06 continue current treatment plan Reason for continued inpatient stay Substantial Risk for: inability to function Time Spent With Patient Time: Total time managing care of this patient today ____ minutes.
[2023-02-06 18:00] VITALS: BP 95/54; PULSE 60; RESP 18; TEMP 36; O2SAT 95
[2023-02-06] MEDS: OLANZapine 10 MG TABLET PO (20:36)
[2023-02-06] MEDS: Acetaminophen 325 MG TABLET 975 MG PO (20:36)
[2023-02-06] MEDS: lamoTRIgine 100 MG TABLET PO (20:37)
[2023-02-07 06:00] VITALS: BP 139/73; PULSE 72; RESP 18; TEMP 36.6; O2SAT 98
[2023-02-07 07:00] VITALS: BMI 27.7
[2023-02-07] MEDS: Acetaminophen 325 MG TABLET 975 MG PO ×3 (09:03→20:34)
[2023-02-07] MEDS: lamoTRIgine 100 MG TABLET PO ×2 (09:04→20:34)
[2023-02-07] MEDS: Lidocaine 4 % Patch ADH..PATCH 1 PATCH TRANSDERMA (09:05)
--- NOTE | 2023-02-07 14:59 | HO.PSYCHPN ---
Subjective Subjective Date of Service: 02/07/23 Reason For Visit: F31.9, F43.25 Subjective Notes: Conditional Voluntary Interim History: The nursing staff reported the patient had being complaining of pain but he refused Tylenol irritable at times. Nonsensical but he has participated in a few groups minimally. On interview the patient denies new symptoms, waiting for placement. Mental Status Exam Mental Status Exam Patient Appearance: Appropriate Patient Orientation: Person and Situation Level of Consciousness: Awake and Appropriate Patient Behavior: Guarded and Passive Mood Description: Withdrawn Affect Description: Withdrawn and Constricted Patient Cognition Impaired: Yes Ability to Follow Directions: Good Speech Pattern: Clear Hallucinations: None Delusions: Not Present Thought Process: Distracted, Evasive and Slowed Thinking Thought Content: positive for [place] and positive for Poverty of Content Judgement: Fair Diagnostics Vital Signs (24Hr): Vital Signs - 24 hr 02/06/23 18:00 02/07/23 06:00 Temperature 96.8 F 97.8 F Pulse Rate 60 72 Respiratory Rate 18 18 Blood Pressure 95/54 L 139/73 Pulse Oximetry 95 98 Oxygen Delivery Method Room Air Room Air BMI result Body Mass Index 27.7 Labs 12/03/22 11:52 Medications Medications Current Medications Acetaminophen (Acetaminophen 325 Mg Tablet) 975 mg PO TID [facility] Last Admin: 02/07/23 14:46 Dose: 975 mg Al Hydroxide/Mg Hydroxide (Magnesium Hydrox/Alum Hydrox 30 Ml Oral.Susp) 30 ml PO Q6H PRN PRN Reason: Heartburn/Nausea Bisacodyl (Bisacodyl 5 Mg Tablet.Dr) 10 mg PO DAILY PRN PRN Reason: Constipation Last Admin: 01/30/23 09:13 Dose: 10 mg Hydroxyzine HCl (Hydroxyzine Hcl 25 Mg Tablet) 25 mg PO Q6H PRN PRN Reason: Anxiety Last Admin: 02/04/23 21:46 Dose: 25 mg Lamotrigine (Lamotrigine 100 Mg Tablet) 100 mg PO BID [facility] Last Admin: 02/07/23 09:04 Dose: 100 mg Lidocaine (Lidocaine 4 % Patch Adh..Patch) 1 patch TRANSDERMA DAILY [facility]; Protocol Last Admin: 02/07/23 09:05 Dose: 1 patch Magnesium Hydroxide (Milk Of Magnesia 30 Ml Oral.Susp) 30 ml PO DAILY PRN PRN Reason: Constipation Last Admin: 01/29/23 14:17 Dose: 30 ml Olanzapine (Olanzapine 2.5 Mg Tablet) 2.5 mg PO TID PRN PRN Reason: agitation Last Admin: 02/03/23 04:05 Dose: 2.5 mg Olanzapine (Olanzapine 10 Mg Tablet) 10 mg PO BEDTIME [facility] Last Admin: 02/06/23 20:36 Dose: 10 mg Allergies Allergies Allergy/AdvReac Type Severity Reaction Status Date / Time pollen extracts Allergy Unknown unknown Verified 04/21/22 14:56 latex Allergy Rash Verified 10/31/22 18:30 Assessment & Plan Assessment & Plan (1) Chronic back pain: Status: Acute Code(s): M54.9 - Dorsalgia, unspecified; G89.29 - Other chronic pain Plan 82 year old male with history hyperlipidemia, tubular adenoma colon, BPH, chronic normocytic anemia, 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 Recommend conservative management with APAP, lidocaine patch, PT. 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 Continue with same psychotropics. 2. Waiting for placement Reason for continued inpatient stay Substantial Risk for: inability to function, rapid decompensation and med/psych decompensation Time Spent With Patient Time: Total time managing care of this patient today __20__ minutes.
[2023-02-07 19:35] VITALS: BP 124/62; PULSE 71; RESP 18; TEMP 36.4; O2SAT 93
[2023-02-07] MEDS: OLANZapine 10 MG TABLET PO (20:34)
[2023-02-08 06:00] VITALS: BP 118/66; PULSE 72; RESP 18; TEMP 36.5; O2SAT 95
[2023-02-08] MEDS: Acetaminophen 325 MG TABLET 975 MG PO ×3 (08:29→20:53)
[2023-02-08] MEDS: Lidocaine 4 % Patch ADH..PATCH 1 PATCH TRANSDERMA (08:30)
[2023-02-08] MEDS: lamoTRIgine 100 MG TABLET PO ×2 (08:30→20:54)
[2023-02-08] MEDS: Milk of Magnesia 30 ML ORAL.SUSP PO (08:33)
--- NOTE | 2023-02-08 14:57 | P.PNPSI_ITS ---
Subjective Subjective Date of Service: 02/08/23 Reason For Visit: F31.9, F43.25 Subjective Notes: Conditional Voluntary Interim History: The nursing staff reported no changes in his mental status, compliant with medication On interview the patient denies new symptoms, waiting for placement. Mental Status Exam Mental Status Exam Patient Appearance: Appropriate and Unkempt Patient Orientation: Person and Situation Level of Consciousness: Awake and Appropriate Patient Behavior: Guarded and Passive Mood Description: Withdrawn Affect Description: Constricted Patient Cognition Impaired: Yes Ability to Follow Directions: Good Speech Pattern: Clear Hallucinations: None Delusions: Not Present Thought Process: Distracted, Linear and Slowed Thinking Thought Content: positive for [place] and positive for Poverty of Content Judgement: Fair Diagnostics Vital Signs (24Hr): Vital Signs - 24 hr 02/07/23 19:35 02/08/23 06:00 Temperature 97.6 F 97.7 F Pulse Rate 71 72 Respiratory Rate 18 18 Blood Pressure 124/62 118/66 Pulse Oximetry 93 95 Oxygen Delivery Method Room Air Room Air BMI result Body Mass Index 27.7 Labs 12/03/22 11:52 Medications Medications Current Medications Acetaminophen (Acetaminophen 325 Mg Tablet) 975 mg PO TID [facility] Last Admin: 02/08/23 08:29 Dose: 975 mg Al Hydroxide/Mg Hydroxide (Magnesium Hydrox/Alum Hydrox 30 Ml Oral.Susp) 30 ml PO Q6H PRN PRN Reason: Heartburn/Nausea Bisacodyl (Bisacodyl 5 Mg Tablet.Dr) 10 mg PO DAILY PRN PRN Reason: Constipation Last Admin: 01/30/23 09:13 Dose: 10 mg Hydroxyzine HCl (Hydroxyzine Hcl 25 Mg Tablet) 25 mg PO Q6H PRN PRN Reason: Anxiety Last Admin: 02/04/23 21:46 Dose: 25 mg Lamotrigine (Lamotrigine 100 Mg Tablet) 100 mg PO BID [facility] Last Admin: 02/08/23 08:30 Dose: 100 mg Lidocaine (Lidocaine 4 % Patch Adh..Patch) 1 patch TRANSDERMA DAILY [facility]; Protocol Last Admin: 02/08/23 08:30 Dose: 1 patch Magnesium Hydroxide (Milk Of Magnesia 30 Ml Oral.Susp) 30 ml PO DAILY PRN PRN Reason: Constipation Last Admin: 02/08/23 08:33 Dose: 30 ml Olanzapine (Olanzapine 2.5 Mg Tablet) 2.5 mg PO TID PRN PRN Reason: agitation Last Admin: 02/03/23 04:05 Dose: 2.5 mg Olanzapine (Olanzapine 10 Mg Tablet) 10 mg PO BEDTIME [facility] Last Admin: 02/07/23 20:34 Dose: 10 mg Allergies Allergies Allergy/AdvReac Type Severity Reaction Status Date / Time pollen extracts Allergy Unknown unknown Verified 04/21/22 14:56 latex Allergy Rash Verified 10/31/22 18:30 Assessment & Plan Assessment & Plan (1) Chronic back pain: Status: Acute Code(s): M54.9 - Dorsalgia, unspecified; G89.29 - Other chronic pain Plan 82 year old male with history hyperlipidemia, tubular adenoma colon, BPH, chronic normocytic anemia, 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 Recommend conservative management with APAP, lidocaine patch, PT. Xray of lower back, proably won't slip box changer Thanks Plan 1. Continue same medications. 2. Waiting for placement. Reason for continued inpatient stay Substantial Risk for: inability to function, rapid decompensation and med/psych decompensation Time Spent With Patient Time: Total time managing care of this patient today __20__ minutes.
[2023-02-08 18:00] VITALS: BP 156/68; PULSE 70; RESP 16; TEMP 36; O2SAT 97
[2023-02-08] MEDS: OLANZapine 10 MG TABLET PO (20:54)
[2023-02-09 08:10] VITALS: BP 99/58; PULSE 76; RESP 18; TEMP 36.2; O2SAT 95
[2023-02-09] MEDS: lamoTRIgine 100 MG TABLET PO ×2 (11:30→20:43)
[2023-02-09] MEDS: Acetaminophen 325 MG TABLET 975 MG PO ×3 (11:30→20:42)
[2023-02-09] MEDS: Lidocaine 4 % Patch ADH..PATCH 1 PATCH TRANSDERMA (11:31)
--- NOTE | 2023-02-09 12:06 | P.PNPSI_ITS ---
Subjective Subjective Date of Service: 02/09/23 Reason For Visit: F31.9, F43.25 Interim History: calm, cooperative. no questions or complaints. per staff, no change in presentation. slept 8 hours overnight. Mental Status Exam Mental Status Exam Patient Appearance: Appropriate and Unkempt Patient Orientation: Person and Situation Level of Consciousness: Awake and Appropriate Patient Behavior: Guarded and Passive Mood Description: Withdrawn Affect Description: Constricted Patient Cognition Impaired: Yes Ability to Follow Directions: Good Speech Pattern: Clear Hallucinations: None Delusions: Not Present Thought Process: Distracted, Linear and Slowed Thinking Thought Content: positive for [place] and positive for Poverty of Content Judgement: Fair Diagnostics Vital Signs (24Hr): Vital Signs - 24 hr 02/08/23 18:00 02/09/23 08:10 Temperature 96.8 F 97.1 F Pulse Rate 70 76 Respiratory Rate 16 18 Blood Pressure 156/68 H 99/58 L Pulse Oximetry 97 95 Oxygen Delivery Method Room Air Room Air BMI result Body Mass Index 27.7 Labs 12/03/22 11:52 Medications Medications Current Medications Acetaminophen (Acetaminophen 325 Mg Tablet) 975 mg PO TID [facility] Last Admin: 02/09/23 11:30 Dose: 975 mg Al Hydroxide/Mg Hydroxide (Magnesium Hydrox/Alum Hydrox 30 Ml Oral.Susp) 30 ml PO Q6H PRN PRN Reason: Heartburn/Nausea Bisacodyl (Bisacodyl 5 Mg Tablet.Dr) 10 mg PO DAILY PRN PRN Reason: Constipation Last Admin: 01/30/23 09:13 Dose: 10 mg Hydroxyzine HCl (Hydroxyzine Hcl 25 Mg Tablet) 25 mg PO Q6H PRN PRN Reason: Anxiety Last Admin: 02/04/23 21:46 Dose: 25 mg Lamotrigine (Lamotrigine 100 Mg Tablet) 100 mg PO BID [facility] Last Admin: 02/09/23 11:30 Dose: 100 mg Lidocaine (Lidocaine 4 % Patch Adh..Patch) 1 patch TRANSDERMA DAILY [facility]; Protocol Last Admin: 02/09/23 11:31 Dose: 1 patch Magnesium Hydroxide (Milk Of Magnesia 30 Ml Oral.Susp) 30 ml PO DAILY PRN PRN Reason: Constipation Last Admin: 02/08/23 08:33 Dose: 30 ml Olanzapine (Olanzapine 2.5 Mg Tablet) 2.5 mg PO TID PRN PRN Reason: agitation Last Admin: 02/03/23 04:05 Dose: 2.5 mg Olanzapine (Olanzapine 10 Mg Tablet) 10 mg PO BEDTIME [facility] Last Admin: 02/08/23 20:54 Dose: 10 mg Allergies Allergies Allergy/AdvReac Type Severity Reaction Status Date / Time pollen extracts Allergy Unknown unknown Verified 04/21/22 14:56 latex Allergy Rash Verified 10/31/22 18:30 Assessment & Plan Assessment & Plan (1) Bipolar disorder, now depressed: Status: Acute Code(s): F31.30 - Bipolar disorder, current episode depressed, mild or moderate severity, unspecified (2) Chronic back pain: Status: Acute Code(s): M54.9 - Dorsalgia, unspecified; G89.29 - Other chronic pain Plan 82 year old male with history hyperlipidemia, tubular adenoma colon, BPH, chronic normocytic anemia, 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 02/06 continue current treatment plan 02/09: no change in presentation. continue current mgmt. Reason for continued inpatient stay Substantial Risk for: inability to function Time Spent With Patient Time: Total time managing care of this patient today ____ minutes.
[2023-02-09 18:00] VITALS: BP 125/75; PULSE 64; RESP 18; TEMP 36.1; O2SAT 95
[2023-02-09] MEDS: OLANZapine 10 MG TABLET PO (20:43)
[2023-02-10 07:50] VITALS: BP 149/78; PULSE 68; RESP 18; TEMP 36.2; O2SAT 96
[2023-02-10] MEDS: Lidocaine 4 % Patch ADH..PATCH 1 PATCH TRANSDERMA (08:37)
[2023-02-10] MEDS: lamoTRIgine 100 MG TABLET PO ×2 (08:38→20:31)
--- NOTE | 2023-02-10 12:13 | HO.PSYCHPN ---
Subjective Subjective Date of Service: 02/10/23 Reason For Visit: F31.9, F43.25 Interim History: no issues. no requests. per staff quiet, confused. no pain today. flat. wandering. Mental Status Exam Mental Status Exam Patient Appearance: Appropriate and Unkempt Patient Orientation: Person and Situation Level of Consciousness: Awake and Appropriate Patient Behavior: Guarded and Passive Mood Description: Withdrawn Affect Description: Constricted Patient Cognition Impaired: Yes Ability to Follow Directions: Good Speech Pattern: Clear Hallucinations: None Delusions: Not Present Thought Process: Distracted, Linear and Slowed Thinking Thought Content: positive for [place] and positive for Poverty of Content Judgement: Fair Diagnostics Vital Signs (24Hr): Vital Signs - 24 hr 02/09/23 18:00 02/10/23 07:50 Temperature 96.9 F 97.1 F Pulse Rate 64 68 Respiratory Rate 18 18 Blood Pressure 125/75 149/78 H Pulse Oximetry 95 96 Oxygen Delivery Method Room Air Room Air BMI result Body Mass Index 27.7 Labs 12/03/22 11:52 Medications Medications Current Medications Acetaminophen (Acetaminophen 325 Mg Tablet) 975 mg PO TID [facility] Last Admin: 02/10/23 09:11 Dose: Not Given Al Hydroxide/Mg Hydroxide (Magnesium Hydrox/Alum Hydrox 30 Ml Oral.Susp) 30 ml PO Q6H PRN PRN Reason: Heartburn/Nausea Bisacodyl (Bisacodyl 5 Mg Tablet.Dr) 10 mg PO DAILY PRN PRN Reason: Constipation Last Admin: 01/30/23 09:13 Dose: 10 mg Hydroxyzine HCl (Hydroxyzine Hcl 25 Mg Tablet) 25 mg PO Q6H PRN PRN Reason: Anxiety Last Admin: 02/04/23 21:46 Dose: 25 mg Lamotrigine (Lamotrigine 100 Mg Tablet) 100 mg PO BID [facility] Last Admin: 02/10/23 08:38 Dose: 100 mg Lidocaine (Lidocaine 4 % Patch Adh..Patch) 1 patch TRANSDERMA DAILY [facility]; Protocol Last Admin: 02/10/23 08:37 Dose: 1 patch Magnesium Hydroxide (Milk Of Magnesia 30 Ml Oral.Susp) 30 ml PO DAILY PRN PRN Reason: Constipation Last Admin: 02/08/23 08:33 Dose: 30 ml Olanzapine (Olanzapine 2.5 Mg Tablet) 2.5 mg PO TID PRN PRN Reason: agitation Last Admin: 02/03/23 04:05 Dose: 2.5 mg Olanzapine (Olanzapine 10 Mg Tablet) 10 mg PO BEDTIME [facility] Last Admin: 02/09/23 20:43 Dose: 10 mg Allergies Allergies Allergy/AdvReac Type Severity Reaction Status Date / Time pollen extracts Allergy Unknown unknown Verified 04/21/22 14:56 latex Allergy Rash Verified 10/31/22 18:30 Assessment & Plan Assessment & Plan (1) Bipolar disorder, now depressed: Status: Acute Code(s): F31.30 - Bipolar disorder, current episode depressed, mild or moderate severity, unspecified (2) Chronic back pain: Status: Acute Code(s): M54.9 - Dorsalgia, unspecified; G89.29 - Other chronic pain Plan 82 year old male with history hyperlipidemia, tubular adenoma colon, BPH, chronic normocytic anemia, 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 02/06 continue current treatment plan 02/09: no change in presentation. continue current mgmt. 02/10: no change in presentation. continue current mgmt. Reason for continued inpatient stay Substantial Risk for: inability to function Time Spent With Patient Time: Total time managing care of this patient today ____ minutes.
[2023-02-10] MEDS: Acetaminophen 325 MG TABLET 975 MG PO ×2 (14:06→20:30)
[2023-02-10 18:00] VITALS: BP 110/63; PULSE 69; RESP 16; TEMP 36.3; O2SAT 94
[2023-02-10] MEDS: hydrOXYzine HCL 25 MG TABLET PO (20:31)
[2023-02-10] MEDS: OLANZapine 10 MG TABLET PO (20:31)
[2023-02-11 08:36] VITALS: BP 106/65; PULSE 74; RESP 16; TEMP 36.3; O2SAT 95
[2023-02-11] MEDS: Acetaminophen 325 MG TABLET 975 MG PO ×3 (08:49→21:10)
[2023-02-11] MEDS: Lidocaine 4 % Patch ADH..PATCH 1 PATCH TRANSDERMA (08:49)
[2023-02-11] MEDS: lamoTRIgine 100 MG TABLET PO ×2 (08:49→21:10)
--- NOTE | 2023-02-11 13:24 | HO.PSYCHPN ---
Subjective Subjective Date of Service: 02/11/23 Reason For Visit: F31.9, F43.25 Subjective Notes: Conditional Voluntary Interim History: The nursing staff reported no changes in his mental status, he had been compliant with treatment. On interview the patient denies new symptoms, waiting for placement. Mental Status Exam Mental Status Exam Patient Appearance: Appropriate Patient Orientation: Person and Situation Level of Consciousness: Awake and Appropriate Patient Behavior: Guarded and Passive Mood Description: Withdrawn Affect Description: Constricted Patient Cognition Impaired: Yes Ability to Follow Directions: Good Speech Pattern: Clear Hallucinations: None Delusions: Not Present Thought Process: Distracted and Linear Thought Content: positive for [place] and positive for Poverty of Content Judgement: Poor Diagnostics Vital Signs (24Hr): Vital Signs - 24 hr 02/10/23 18:00 02/11/23 08:36 Temperature 97.4 F 97.4 F Pulse Rate 69 74 Respiratory Rate 16 16 Blood Pressure 110/63 106/65 Pulse Oximetry 94 95 Oxygen Delivery Method Room Air Room Air BMI result Body Mass Index 27.7 Labs 12/03/22 11:52 Medications Medications Current Medications Acetaminophen (Acetaminophen 325 Mg Tablet) 975 mg PO TID [facility] Last Admin: 02/11/23 08:49 Dose: 975 mg Al Hydroxide/Mg Hydroxide (Magnesium Hydrox/Alum Hydrox 30 Ml Oral.Susp) 30 ml PO Q6H PRN PRN Reason: Heartburn/Nausea Bisacodyl (Bisacodyl 5 Mg Tablet.Dr) 10 mg PO DAILY PRN PRN Reason: Constipation Last Admin: 01/30/23 09:13 Dose: 10 mg Hydroxyzine HCl (Hydroxyzine Hcl 25 Mg Tablet) 25 mg PO Q6H PRN PRN Reason: Anxiety Last Admin: 02/10/23 20:31 Dose: 25 mg Lamotrigine (Lamotrigine 100 Mg Tablet) 100 mg PO BID [facility] Last Admin: 02/11/23 08:49 Dose: 100 mg Lidocaine (Lidocaine 4 % Patch Adh..Patch) 1 patch TRANSDERMA DAILY [facility]; Protocol Last Admin: 02/11/23 08:49 Dose: 1 patch Magnesium Hydroxide (Milk Of Magnesia 30 Ml Oral.Susp) 30 ml PO DAILY PRN PRN Reason: Constipation Last Admin: 02/08/23 08:33 Dose: 30 ml Olanzapine (Olanzapine 2.5 Mg Tablet) 2.5 mg PO TID PRN PRN Reason: agitation Last Admin: 02/03/23 04:05 Dose: 2.5 mg Olanzapine (Olanzapine 10 Mg Tablet) 10 mg PO BEDTIME [facility] Last Admin: 02/10/23 20:31 Dose: 10 mg Allergies Allergies Allergy/AdvReac Type Severity Reaction Status Date / Time pollen extracts Allergy Unknown unknown Verified 04/21/22 14:56 latex Allergy Rash Verified 10/31/22 18:30 Assessment & Plan Assessment & Plan (1) Bipolar disorder, now depressed: Status: Acute Code(s): F31.30 - Bipolar disorder, current episode depressed, mild or moderate severity, unspecified (2) Chronic back pain: Status: Acute Code(s): M54.9 - Dorsalgia, unspecified; G89.29 - Other chronic pain Plan 82 year old male with history hyperlipidemia, tubular adenoma colon, BPH, chronic normocytic anemia, 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 plan 1. Keep same treatment. 2, Waiting for placement. Reason for continued inpatient stay Substantial Risk for: inability to function, rapid decompensation and med/psych decompensation Time Spent With Patient Time: Total time managing care of this patient today _20___ minutes.
[2023-02-11 18:00] VITALS: BP 97/67; PULSE 93; RESP 16; TEMP 36.2; O2SAT 96
[2023-02-11] MEDS: OLANZapine 10 MG TABLET PO (21:11)
[2023-02-11] MEDS: hydrOXYzine HCL 25 MG TABLET PO (21:11)
[2023-02-12 07:54] VITALS: BP 122/68; PULSE 71; RESP 18; TEMP 36.4; O2SAT 95
[2023-02-12] MEDS: lamoTRIgine 100 MG TABLET PO ×2 (08:09→21:01)
[2023-02-12] MEDS: Acetaminophen 325 MG TABLET 975 MG PO ×2 (08:09→21:00)
[2023-02-12] MEDS: Lidocaine 4 % Patch ADH..PATCH 1 PATCH TRANSDERMA (08:12)
--- NOTE | 2023-02-12 13:52 | P.PNPSI_ITS ---
Subjective Subjective Date of Service: 02/12/23 Reason For Visit: F31.9, F43.25 Subjective Notes: Conditional Voluntary Interim History: The nursing staff reported no changes in his mental status, he had been compliant with medications On interview the patient denies new symptoms, waiting for placement. Mental Status Exam Mental Status Exam Patient Appearance: Appropriate Patient Orientation: Person and Situation Level of Consciousness: Awake and Appropriate Patient Behavior: Guarded and Passive Mood Description: Withdrawn Affect Description: Constricted Patient Cognition Impaired: Yes Ability to Follow Directions: Good Speech Pattern: Clear Hallucinations: None Delusions: Not Present Thought Process: Distracted and Slowed Thinking Thought Content: positive for [place] and positive for Circumstantial Judgement: Fair Diagnostics Vital Signs (24Hr): Vital Signs - 24 hr 02/11/23 18:00 02/12/23 07:54 Temperature 97.2 F 97.5 F Pulse Rate 93 71 Respiratory Rate 16 18 Blood Pressure 97/67 122/68 Pulse Oximetry 96 95 Oxygen Delivery Method Room Air Room Air BMI result Body Mass Index 27.7 Labs 12/03/22 11:52 Medications Medications Current Medications Acetaminophen (Acetaminophen 325 Mg Tablet) 975 mg PO TID [facility] Last Admin: 02/12/23 08:09 Dose: 650 mg Al Hydroxide/Mg Hydroxide (Magnesium Hydrox/Alum Hydrox 30 Ml Oral.Susp) 30 ml PO Q6H PRN PRN Reason: Heartburn/Nausea Bisacodyl (Bisacodyl 5 Mg Tablet.Dr) 10 mg PO DAILY PRN PRN Reason: Constipation Last Admin: 01/30/23 09:13 Dose: 10 mg Hydroxyzine HCl (Hydroxyzine Hcl 25 Mg Tablet) 25 mg PO Q6H PRN PRN Reason: Anxiety Last Admin: 02/11/23 21:11 Dose: 25 mg Lamotrigine (Lamotrigine 100 Mg Tablet) 100 mg PO BID [facility] Last Admin: 02/12/23 08:09 Dose: 100 mg Lidocaine (Lidocaine 4 % Patch Adh..Patch) 1 patch TRANSDERMA DAILY [facility]; Protocol Last Admin: 02/12/23 08:12 Dose: 1 patch Magnesium Hydroxide (Milk Of Magnesia 30 Ml Oral.Susp) 30 ml PO DAILY PRN PRN Reason: Constipation Last Admin: 02/08/23 08:33 Dose: 30 ml Olanzapine (Olanzapine 2.5 Mg Tablet) 2.5 mg PO TID PRN PRN Reason: agitation Last Admin: 02/03/23 04:05 Dose: 2.5 mg Olanzapine (Olanzapine 10 Mg Tablet) 10 mg PO BEDTIME [facility] Last Admin: 02/11/23 21:11 Dose: 10 mg Allergies Allergies Allergy/AdvReac Type Severity Reaction Status Date / Time pollen extracts Allergy Unknown unknown Verified 04/21/22 14:56 latex Allergy Rash Verified 10/31/22 18:30 Assessment & Plan Assessment & Plan (1) Bipolar disorder, now depressed: Status: Acute Code(s): F31.30 - Bipolar disorder, current episode depressed, mild or moderate severity, unspecified (2) Chronic back pain: Status: Acute Code(s): M54.9 - Dorsalgia, unspecified; G89.29 - Other chronic pain (3) Dementia: Status: Acute Code(s): F03.90 - Unspecified dementia, unspecified severity, without behavioral disturbance, psychotic disturbance, mood disturbance, and anxiety Plan 82 year old male with history hyperlipidemia, tubular adenoma colon, BPH, chronic normocytic anemia, 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 plan 1. Keep same treatment. 2, Waiting for placement. Reason for continued inpatient stay Substantial Risk for: inability to function, rapid decompensation and med/psych decompensation Time Spent With Patient Time: Total time managing care of this patient today __20__ minutes.
[2023-02-12 18:00] VITALS: BP 110/63; PULSE 62; RESP 18; TEMP 36; O2SAT 94
[2023-02-12] MEDS: OLANZapine 10 MG TABLET PO (21:01)
[2023-02-13 08:20] VITALS: BP 109/65; PULSE 80; RESP 18; TEMP 36.3; O2SAT 97
[2023-02-13] MEDS: Lidocaine 4 % Patch ADH..PATCH 1 PATCH TRANSDERMA (09:06)
[2023-02-13] MEDS: Acetaminophen 325 MG TABLET 975 MG PO ×2 (09:06→14:49)
[2023-02-13] MEDS: lamoTRIgine 100 MG TABLET PO ×2 (09:07→20:42)
--- NOTE | 2023-02-13 14:20 | HO.PSYCHPN ---
Subjective Subjective Date of Service: 02/13/23 Reason For Visit: F31.9, F43.25 Subjective Notes: Conditional Voluntary Interim History: The nursing staff reported no changes in his mental status, compliant with treatment. On interview the patient denies new symptoms, waiting for placement. Mental Status Exam Mental Status Exam Patient Appearance: Appropriate Patient Orientation: Person Level of Consciousness: Awake Patient Behavior: Guarded and Passive Mood Description: Withdrawn Affect Description: Constricted Patient Cognition Impaired: Yes Ability to Follow Directions: Good Speech Pattern: Clear Hallucinations: None Delusions: Not Present Thought Process: Distracted and Slowed Thinking Thought Content: positive for [place] and positive for Poverty of Content Judgement: Fair Diagnostics Vital Signs (24Hr): Vital Signs - 24 hr 02/12/23 18:00 02/13/23 08:20 Temperature 96.8 F 97.4 F Pulse Rate 62 80 Respiratory Rate 18 18 Blood Pressure 110/63 109/65 Pulse Oximetry 94 97 Oxygen Delivery Method Room Air Room Air BMI result Body Mass Index 27.7 Labs 12/03/22 11:52 Medications Medications Current Medications Acetaminophen (Acetaminophen 325 Mg Tablet) 975 mg PO TID [facility] Last Admin: 02/13/23 09:06 Dose: 975 mg Al Hydroxide/Mg Hydroxide (Magnesium Hydrox/Alum Hydrox 30 Ml Oral.Susp) 30 ml PO Q6H PRN PRN Reason: Heartburn/Nausea Bisacodyl (Bisacodyl 5 Mg Tablet.Dr) 10 mg PO DAILY PRN PRN Reason: Constipation Last Admin: 01/30/23 09:13 Dose: 10 mg Hydroxyzine HCl (Hydroxyzine Hcl 25 Mg Tablet) 25 mg PO Q6H PRN PRN Reason: Anxiety Last Admin: 02/11/23 21:11 Dose: 25 mg Lamotrigine (Lamotrigine 100 Mg Tablet) 100 mg PO BID [facility] Last Admin: 02/13/23 09:07 Dose: 100 mg Lidocaine (Lidocaine 4 % Patch Adh..Patch) 1 patch TRANSDERMA DAILY [facility]; Protocol Last Admin: 02/13/23 09:06 Dose: 1 patch Magnesium Hydroxide (Milk Of Magnesia 30 Ml Oral.Susp) 30 ml PO DAILY PRN PRN Reason: Constipation Last Admin: 02/08/23 08:33 Dose: 30 ml Olanzapine (Olanzapine 2.5 Mg Tablet) 2.5 mg PO TID PRN PRN Reason: agitation Last Admin: 02/03/23 04:05 Dose: 2.5 mg Olanzapine (Olanzapine 10 Mg Tablet) 10 mg PO BEDTIME [facility] Last Admin: 02/12/23 21:01 Dose: 10 mg Allergies Allergies Allergy/AdvReac Type Severity Reaction Status Date / Time pollen extracts Allergy Unknown unknown Verified 04/21/22 14:56 latex Allergy Rash Verified 10/31/22 18:30 Assessment & Plan Assessment & Plan (1) Bipolar disorder, now depressed: Status: Acute Code(s): F31.30 - Bipolar disorder, current episode depressed, mild or moderate severity, unspecified (2) Chronic back pain: Status: Acute Code(s): M54.9 - Dorsalgia, unspecified; G89.29 - Other chronic pain (3) Dementia: Status: Acute Code(s): F03.90 - Unspecified dementia, unspecified severity, without behavioral disturbance, psychotic disturbance, mood disturbance, and anxiety Plan 82 year old male with history hyperlipidemia, tubular adenoma colon, BPH, chronic normocytic anemia, 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 plan 1. Keep same treatment. 2, Waiting for placement. Reason for continued inpatient stay Substantial Risk for: inability to function, rapid decompensation and med/psych decompensation Time Spent With Patient Time: Total time managing care of this patient today __20__ minutes.
[2023-02-13 18:00] VITALS: BP 129/72; PULSE 66; TEMP 36.1; O2SAT 94
[2023-02-13] MEDS: OLANZapine 10 MG TABLET PO (20:42)
[2023-02-14 07:00] VITALS: BMI 27.3
[2023-02-14 08:10] VITALS: BP 150/61; PULSE 78; RESP 18; TEMP 36.3; O2SAT 95
[2023-02-14] MEDS: lamoTRIgine 100 MG TABLET PO ×2 (08:47→21:00)
--- NOTE | 2023-02-14 16:43 | HO.PSYCHPN ---
Subjective Subjective Date of Service: 02/14/23 Reason For Visit: F31.9, F43.25 Subjective Notes: Conditional Voluntary Interim History: The nursing staff reported no changes in his mental status, he had been confused a little in the last hours. We order a UA today. On interview the patient is pleasantly confused, easily redirectable, waiting for placement. Mental Status Exam Mental Status Exam Patient Appearance: Appropriate Patient Orientation: Person and Situation Level of Consciousness: Awake and Appropriate Patient Behavior: Guarded and Passive Mood Description: Calm Affect Description: Constricted Patient Cognition Impaired: Yes Ability to Follow Directions: Good Speech Pattern: Clear Hallucinations: None Delusions: Not Present Thought Process: Distracted and Slowed Thinking Thought Content: positive for [place] Judgement: Fair Diagnostics Vital Signs (24Hr): Vital Signs - 24 hr 02/13/23 18:00 02/14/23 08:10 Temperature 96.9 F 97.4 F Pulse Rate 66 78 Respiratory Rate 18 Blood Pressure 129/72 150/61 H Pulse Oximetry 94 95 Oxygen Delivery Method Room Air Room Air BMI result Body Mass Index 27.3 Labs 02/15/23 06:42 02/15/23 06:43 Medications Medications Current Medications Al Hydroxide/Mg Hydroxide (Magnesium Hydrox/Alum Hydrox 30 Ml Oral.Susp) 30 ml PO Q6H PRN PRN Reason: Heartburn/Nausea Bisacodyl (Bisacodyl 5 Mg Tablet.Dr) 10 mg PO DAILY PRN PRN Reason: Constipation Last Admin: 01/30/23 09:13 Dose: 10 mg Hydroxyzine HCl (Hydroxyzine Hcl 25 Mg Tablet) 25 mg PO Q6H PRN PRN Reason: Anxiety Last Admin: 02/11/23 21:11 Dose: 25 mg Lamotrigine (Lamotrigine 100 Mg Tablet) 100 mg PO BID [facility] Last Admin: 02/14/23 08:47 Dose: 100 mg Magnesium Hydroxide (Milk Of Magnesia 30 Ml Oral.Susp) 30 ml PO DAILY PRN PRN Reason: Constipation Last Admin: 02/08/23 08:33 Dose: 30 ml Olanzapine (Olanzapine 2.5 Mg Tablet) 2.5 mg PO TID PRN PRN Reason: agitation Last Admin: 02/03/23 04:05 Dose: 2.5 mg Olanzapine (Olanzapine 10 Mg Tablet) 10 mg PO BEDTIME [facility] Last Admin: 11/15/23 20:42 Dose: 10 mg Allergies Allergies Allergy/AdvReac Type Severity Reaction Status Date / Time pollen extracts Allergy Unknown unknown Verified 04/21/22 14:56 latex Allergy Rash Verified 10/31/22 18:30 Assessment & Plan Assessment & Plan (1) Bipolar disorder, now depressed: Status: Acute Code(s): F31.30 - Bipolar disorder, current episode depressed, mild or moderate severity, unspecified (2) Chronic back pain: Status: Acute Code(s): M54.9 - Dorsalgia, unspecified; G89.29 - Other chronic pain (3) Dementia: Status: Acute Code(s): F03.90 - Unspecified dementia, unspecified severity, without behavioral disturbance, psychotic disturbance, mood disturbance, and anxiety Plan 82 year old male with history hyperlipidemia, tubular adenoma colon, BPH, chronic normocytic anemia, 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 plan 1. Keep same treatment. 2, Waiting for placement. Reason for continued inpatient stay Substantial Risk for: inability to function, rapid decompensation and med/psych decompensation Time Spent With Patient Time: Total time managing care of this patient today __20__ minutes.
--- NOTE | 2023-02-14 16:57 | PC.NURSE ---
Clean catch urine, 90 cc clear yellow obtained from patient today at 1645 and sent to lab for U/A and C+S.
[2023-02-14 18:00] VITALS: BP 115/58; PULSE 62; RESP 18; TEMP 36.3; O2SAT 95
[2023-02-14 20:55] LABS: Appearance Urine Clear; Color Urine Yellow; Glucose Urine UA Negative (Negative); Leukocyte Esterase Urine Negative (Negative); Nitrite Urine Negative (Negative); Specific Gravity - Urine 1.025 (1.005-1.025); UMIC TRIGGER UACC YES; Urine Blood Moderate (2+) (Negative); Urine Ketones Negative (Negative); Urine Protein Negative (Neg-Trace)
[2023-02-14 20:56] LABS: Bacteria Urine None Seen (None Seen); Hyaline Casts Urine 0-2 /LPF (0-2); Squamous Epithelial Cell Urine 0-2 /HPF (0-2); WBC Urine 0-5 /HPF (0-5)
[2023-02-14] MEDS: OLANZapine 10 MG TABLET PO (21:00)
[2023-02-15] MEDS: traMADoL HCL 50 MG TABLET PO ×2 (01:34→21:20)
[2023-02-15 07:10] LABS: MANUAL DIFF FLAG NO
[2023-02-15 07:14] LABS: Basophils Absolute Auto 0.1 X10*3/uL (0.0-0.2); Eosinophils Absolute Auto 0.2 X10*3/uL (0.0-0.4); Eosinophils Percent Auto 2.3 % (0-4); Hematocrit 40.8 % (42.0-52.0); Hemoglobin 13.7 g/dl (14.0-18.0); Imm Gran Abs Auto 0.03 X10*3/uL (0.00-0.03); Imm Gran Pct Auto 0.4 % (0.0-0.4); Lymphocytes Absolute Auto 1.5 X10*3/uL (1.2-4.9); Lymphocytes Percent Auto 19.9 % (20-40); Mean Corpuscular HGB Conc 33.6 g/dl (31.0-36.0); Mean Corpuscular Hemoglobin 30.2 pg (27.0-33.0); Mean Corpuscular Volume 89.9 fL (80.0-98.0); Mean Platelet Volume 10.5 fL (9.4-12.4); Monocytes Absolute Auto 0.8 X10*3/uL (0.1-1.2); Monocytes Percent Auto 10.4 % (2-11); Neutrophils Absolute Auto 4.8 x10*3/uL (2.0-8.3); Platelet Count 257 X10*3/uL (160-400); Red Blood Count 4.54 X10*6/uL (4.60-5.80); Red Cell Distribution Width 12.9 % (11.0-16.0); White Blood Count 7.3 X10*3/uL (4.8-10.8)
[2023-02-15 07:37] LABS: Alanine Aminotransferase 23 U/L (0-40); Albumin Level 3.8 g/dL (3.5-5.0); Alkaline Phosphatase 70 U/L (39-117); Anion Gap 10 (12-20); Aspartate Amino Transferase 22 U/L (5-37); Bilirubin Direct 0.2 mg/dL (0.0-0.5); Bilirubin Total 0.5 mg/dL (0.0-1.0); Blood Urea Nitrogen 20 mg/dL (9-16); Calcium 9.3 mg/dL (8.4-10.2); Carbon Dioxide 28 mmol/L (22-29); Chloride 110 mmol/L (96-108); Cholesterol 234 mg/dL (<200); Estimated Glomerular Filt Rate > 60; Glucose Random 90 mg/dL (60-115); HDL Cholesterol 41 mg/dL (>40); LDL Cholesterol Calculated 172 mg/dL (<100); Potassium 4.3 mmol/L (3.3-5.1); Sodium 144 mmol/L (135-145); Total Protein 6.4 g/dL (6.5-8.0); Triglycerides 105 mg/dL (<150)
[2023-02-15 07:50] LABS: Thyroid Stimulating Hormone 1.24 uIU/mL (0.32-4.0)
[2023-02-15 07:53] LABS: Estimated Average Glucose 103 mg/dL; Hemoglobin A1c % 5.2 % (<6.0)
[2023-02-15] MEDS: lamoTRIgine 100 MG TABLET PO ×2 (08:09→20:07)
[2023-02-15 08:10] VITALS: BP 114/66; PULSE 74; RESP 18; TEMP 36.4; O2SAT 94
--- NOTE | 2023-02-15 13:55 | P.PNPSI_ITS ---
Subjective Subjective Date of Service: 02/15/23 Reason For Visit: F31.9, F43.25 Subjective Notes: Conditional Voluntary Interim History: Nursing staff reported the patient had been compliant with treatment, confused at times no changes in his mental status. On interview the patient denies new symptoms, waiting for placement. Mental Status Exam Mental Status Exam Patient Appearance: Well Grooomed and Appropriate Patient Orientation: Person and Situation Level of Consciousness: Awake and Appropriate Patient Behavior: Guarded and Passive Mood Description: Withdrawn Affect Description: Constricted Patient Cognition Impaired: Yes Ability to Follow Directions: Good Speech Pattern: Clear Hallucinations: None Delusions: Not Present Thought Process: Distracted and Evasive Thought Content: positive for [place] and positive for Poverty of Content Judgement: Fair Diagnostics Vital Signs (24Hr): Vital Signs - 24 hr 02/14/23 18:00 02/15/23 08:10 Temperature 97.3 F 97.6 F Pulse Rate 62 74 Respiratory Rate 18 18 Blood Pressure 115/58 L 114/66 Pulse Oximetry 95 94 Oxygen Delivery Method Room Air Room Air BMI result Body Mass Index 27.3 Labs 02/15/23 06:42 02/15/23 06:43 Labs: Laboratory Results - last 48 hr 02/14/23 02/15/23 02/15/23 16:45 06:42 06:43 WBC 7.3 RBC 4.54 L Hgb 13.7 L Hct 40.8 L MCV 89.9 MCH 30.2 MCHC 33.6 RDW 12.9 Plt Count 257 MPV 10.5 Immature Gran % (Auto) 0.4 Neut % (Auto) 66.0 Lymph % (Auto) 19.9 L [place] % (Auto) 10.4 Eos % (Auto) 2.3 Baso % (Auto) 1.0 Lymph # (Auto) 1.5 [place] # (Auto) 0.8 Eos # (Auto) 0.2 Baso # (Auto) 0.1 Abs Immat Gran (auto) 0.03 Absolute Neuts (auto) 4.8 Absolute Nucleated RBC 0.000 Nucleated RBC % (auto) 0.0 Sodium 144 Potassium 4.3 Chloride 110 H Carbon Dioxide 28 Anion Gap 10 L BUN 20 H Creatinine 0.87 Estim Creat Clear Calc 66.0 Estimated GFR > 60 Random Glucose 90 Estimat Average Glucose 103 Hemoglobin A1c % 5.2 Calcium 9.3 Total Bilirubin 0.5 Direct Bilirubin 0.2 AST 22 ALT 23 Alkaline Phosphatase 70 Total Protein 6.4 L Albumin 3.8 Triglycerides 105 Cholesterol 234 H LDL Cholesterol, Calc 172 H HDL Cholesterol 41 TSH 1.24 Urine Color Yellow Urine Appearance Clear Urine pH 5.0 Ur Specific [place] 1.025 Urine Protein Negative Urine Glucose (UA) Negative Urine Ketones Negative Urine Blood Moderate (2+) H Urine Nitrite Negative Ur Leukocyte Esterase Negative Urine RBC 6-10 H Urine WBC 0-5 Ur Squamous Epith Cells 0-2 Urine Bacteria None Seen Hyaline Casts 0-2 Medications Medications Current Medications Al Hydroxide/Mg Hydroxide (Magnesium Hydrox/Alum Hydrox 30 Ml Oral.Susp) 30 ml PO Q6H PRN PRN Reason: Heartburn/Nausea Bisacodyl (Bisacodyl 5 Mg Tablet.Dr) 10 mg PO DAILY PRN PRN Reason: Constipation Last Admin: 01/30/23 09:13 Dose: 10 mg Hydroxyzine HCl (Hydroxyzine Hcl 25 Mg Tablet) 25 mg PO Q6H PRN PRN Reason: Anxiety Last Admin: 02/11/23 21:11 Dose: 25 mg Lamotrigine (Lamotrigine 100 Mg Tablet) 100 mg PO BID [facility] Last Admin: 02/15/23 08:09 Dose: 100 mg Magnesium Hydroxide (Milk Of Magnesia 30 Ml Oral.Susp) 30 ml PO DAILY PRN PRN Reason: Constipation Last Admin: 02/08/23 08:33 Dose: 30 ml Olanzapine (Olanzapine 2.5 Mg Tablet) 2.5 mg PO TID PRN PRN Reason: agitation Last Admin: 02/03/23 04:05 Dose: 2.5 mg Olanzapine (Olanzapine 10 Mg Tablet) 10 mg PO BEDTIME [facility] Last Admin: 02/14/23 21:00 Dose: 10 mg Tramadol HCl (Tramadol Hcl 50 Mg Tablet) 50 mg PO Q6H PRN PRN Reason: Pain, Moderate(Pain Scale 4-6) Last Admin: 02/15/23 01:34 Dose: 50 mg Allergies Allergies Allergy/AdvReac Type Severity Reaction Status Date / Time pollen extracts Allergy Unknown unknown Verified 04/21/22 14:56 latex Allergy Rash Verified 10/31/22 18:30 Assessment & Plan Assessment & Plan (1) Bipolar disorder, now depressed: Status: Acute Code(s): F31.30 - Bipolar disorder, current episode depressed, mild or moderate severity, unspecified (2) Chronic back pain: Status: Acute Code(s): M54.9 - Dorsalgia, unspecified; G89.29 - Other chronic pain (3) Dementia: Status: Acute Code(s): F03.90 - Unspecified dementia, unspecified severity, without behavioral disturbance, psychotic disturbance, mood disturbance, and anxiety Plan 82 year old male with history hyperlipidemia, tubular adenoma colon, BPH, chronic normocytic anemia, 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 plan 1. Keep same treatment. 2, Waiting for placement. Reason for continued inpatient stay Substantial Risk for: inability to function, rapid decompensation and med/psych decompensation Time Spent With Patient Time: Total time managing care of this patient today __20__ minutes.
[2023-02-15 18:00] VITALS: BP 101/52; PULSE 67; RESP 18; TEMP 36.3; O2SAT 94
[2023-02-15] MEDS: OLANZapine 10 MG TABLET PO (20:07)
[2023-02-16 08:10] VITALS: BP 111/55; PULSE 77; RESP 18; TEMP 36.3; O2SAT 99
[2023-02-16] MEDS: traMADoL HCL 50 MG TABLET PO ×2 (08:30→20:26)
[2023-02-16] MEDS: lamoTRIgine 100 MG TABLET PO ×2 (08:30→20:27)
--- NOTE | 2023-02-16 17:08 | P.PNPSI_ITS ---
Subjective Subjective Date of Service: 02/16/23 Reason For Visit: F31.9, F43.25 Interim History: Nursing staff reported the patient had been compliant with treatment, confused at times no changes in his mental status. On interview the patient denies new symptoms, waiting for placement. Review of Systems Review of Systems Back pain that is chronic in nature, no incontinence urinary or donita, no fever or chills, and weakness in the legs Yes all other systems are reviewed and are negative and Unobtainable due to mental status Mental Status Exam Mental Status Exam Narrative: pleasant. Engaged. Fair self-care. Some cognitive impairment evident. No depression, SI, HI, agitation or psychosis. Patient Appearance: Well Grooomed and Appropriate Patient Orientation: Person and Situation Level of Consciousness: Awake and Appropriate Patient Behavior: Guarded and Passive Mood Description: Withdrawn Affect Description: Constricted Patient Cognition Impaired: Yes Ability to Follow Directions: Good Speech Pattern: Clear Diagnostics Vital Signs (24Hr): Vital Signs - 24 hr 02/15/23 18:00 02/16/23 08:10 Temperature 97.4 F 97.4 F Pulse Rate 67 77 Respiratory Rate 18 18 Blood Pressure 101/52 L 111/55 L Pulse Oximetry 94 99 Oxygen Delivery Method Room Air Room Air BMI result Body Mass Index 27.3 Labs 02/15/23 06:42 02/15/23 06:43 Labs: Laboratory Results - last 48 hr 02/14/23 02/15/23 02/15/23 16:45 06:42 06:43 WBC 7.3 RBC 4.54 L Hgb 13.7 L Hct 40.8 L MCV 89.9 MCH 30.2 MCHC 33.6 RDW 12.9 Plt Count 257 MPV 10.5 Immature Gran % (Auto) 0.4 Neut % (Auto) 66.0 Lymph % (Auto) 19.9 L [place] % (Auto) 10.4 Eos % (Auto) 2.3 Baso % (Auto) 1.0 Lymph # (Auto) 1.5 [place] # (Auto) 0.8 Eos # (Auto) 0.2 Baso # (Auto) 0.1 Abs Immat Gran (auto) 0.03 Absolute Neuts (auto) 4.8 Absolute Nucleated RBC 0.000 Nucleated RBC % (auto) 0.0 Sodium 144 Potassium 4.3 Chloride 110 H Carbon Dioxide 28 Anion Gap 10 L BUN 20 H Creatinine 0.87 Estim Creat Clear Calc 66.0 Estimated GFR > 60 Random Glucose 90 Estimat Average Glucose 103 Hemoglobin A1c % 5.2 Calcium 9.3 Total Bilirubin 0.5 Direct Bilirubin 0.2 AST 22 ALT 23 Alkaline Phosphatase 70 Total Protein 6.4 L Albumin 3.8 Triglycerides 105 Cholesterol 234 H LDL Cholesterol, Calc 172 H HDL Cholesterol 41 TSH 1.24 Urine Color Yellow Urine Appearance Clear Urine pH 5.0 Ur Specific [place] 1.025 Urine Protein Negative Urine Glucose (UA) Negative Urine Ketones Negative Urine Blood Moderate (2+) H Urine Nitrite Negative Ur Leukocyte Esterase Negative Urine RBC 6-10 H Urine WBC 0-5 Ur Squamous Epith Cells 0-2 Urine Bacteria None Seen Hyaline Casts 0-2 Medications Medications Current Medications Al Hydroxide/Mg Hydroxide (Magnesium Hydrox/Alum Hydrox 30 Ml Oral.Susp) 30 ml PO Q6H PRN PRN Reason: Heartburn/Nausea Bisacodyl (Bisacodyl 5 Mg Tablet.Dr) 10 mg PO DAILY PRN PRN Reason: Constipation Last Admin: 01/30/23 09:13 Dose: 10 mg Hydroxyzine HCl (Hydroxyzine Hcl 25 Mg Tablet) 25 mg PO Q6H PRN PRN Reason: Anxiety Last Admin: 02/11/23 21:11 Dose: 25 mg Lamotrigine (Lamotrigine 100 Mg Tablet) 100 mg PO BID [facility] Last Admin: 02/16/23 08:30 Dose: 100 mg Magnesium Hydroxide (Milk Of Magnesia 30 Ml Oral.Susp) 30 ml PO DAILY PRN PRN Reason: Constipation Last Admin: 02/08/23 08:33 Dose: 30 ml Olanzapine (Olanzapine 2.5 Mg Tablet) 2.5 mg PO TID PRN PRN Reason: agitation Last Admin: 02/03/23 04:05 Dose: 2.5 mg Olanzapine (Olanzapine 10 Mg Tablet) 10 mg PO BEDTIME [facility] Last Admin: 02/15/23 20:07 Dose: 10 mg Tramadol HCl (Tramadol Hcl 50 Mg Tablet) 50 mg PO Q6H PRN PRN Reason: Pain, Moderate(Pain Scale 4-6) Last Admin: 02/16/23 08:30 Dose: 50 mg Allergies Allergies Allergy/AdvReac Type Severity Reaction Status Date / Time pollen extracts Allergy Unknown unknown Verified 04/21/22 14:56 latex Allergy Rash Verified 10/31/22 18:30 Assessment & Plan Assessment & Plan (1) Bipolar disorder, now depressed: Status: Acute Code(s): F31.30 - Bipolar disorder, current episode depressed, mild or moderate severity, unspecified (2) Chronic back pain: Status: Acute Code(s): M54.9 - Dorsalgia, unspecified; G89.29 - Other chronic pain (3) Dementia: Status: Acute Code(s): F03.90 - Unspecified dementia, unspecified severity, without behavioral disturbance, psychotic disturbance, mood disturbance, and anxiety Plan 82 year old male with history hyperlipidemia, tubular adenoma colon, BPH, chronic normocytic anemia, 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 plan 1. Keep same treatment. 2, Waiting for placement. 02/16: Continue current management and treatment plan. Reason for continued inpatient stay Substantial Risk for: inability to function and rapid decompensation Time Spent With Patient Time: Total time managing care of this patient today ____ minutes.
[2023-02-16 19:40] VITALS: BP 129/73; PULSE 74; RESP 18; TEMP 36.7; O2SAT 94
[2023-02-16] MEDS: OLANZapine 10 MG TABLET PO (20:26)
[2023-02-17 08:06] VITALS: BP 118/59; PULSE 75; RESP 18; TEMP 36.6; O2SAT 95
[2023-02-17] MEDS: traMADoL HCL 50 MG TABLET PO (08:13)
[2023-02-17] MEDS: lamoTRIgine 100 MG TABLET PO ×2 (08:13→20:36)
--- NOTE | 2023-02-17 16:00 | HO.PSYCHPN ---
Subjective Subjective Date of Service: 02/17/23 Reason For Visit: F31.9, F43.25 Interim History: Nursing staff reported the patient had been compliant with treatment. He is seen in the common room. He was sitting in his chair. Football game was on the TV. When asked who's playing he answered the [place] . He continues confused at times. On interview the patient denies new symptoms, waiting for placement. Review of Systems Review of Systems Back pain that is chronic in nature, no incontinence urinary or donita, no fever or chills, and weakness in the legs Yes all other systems are reviewed and are negative and Unobtainable due to mental status Mental Status Exam Mental Status Exam Narrative: pleasant. Engaged. Fair self-care. Some cognitive impairment evident. No depression, SI, HI, agitation or psychosis. Patient Appearance: Well Grooomed and Appropriate Patient Orientation: Person and Situation Level of Consciousness: Awake and Appropriate Patient Behavior: Guarded and Passive Mood Description: Withdrawn Affect Description: Constricted Patient Cognition Impaired: Yes Ability to Follow Directions: Good Speech Pattern: Clear Diagnostics Vital Signs (24Hr): Vital Signs - 24 hr 02/16/23 19:40 02/17/23 08:06 Temperature 98.0 F 97.8 F Pulse Rate 74 75 Respiratory Rate 18 18 Blood Pressure 129/73 118/59 L Pulse Oximetry 94 95 Oxygen Delivery Method Room Air Room Air BMI result Body Mass Index 27.3 Labs 02/15/23 06:42 02/15/23 06:43 Medications Medications Current Medications Al Hydroxide/Mg Hydroxide (Magnesium Hydrox/Alum Hydrox 30 Ml Oral.Susp) 30 ml PO Q6H PRN PRN Reason: Heartburn/Nausea Bisacodyl (Bisacodyl 5 Mg Tablet.Dr) 10 mg PO DAILY PRN PRN Reason: Constipation Last Admin: 01/30/23 09:13 Dose: 10 mg Hydroxyzine HCl (Hydroxyzine Hcl 25 Mg Tablet) 25 mg PO Q6H PRN PRN Reason: Anxiety Last Admin: 02/11/23 21:11 Dose: 25 mg Lamotrigine (Lamotrigine 100 Mg Tablet) 100 mg PO BID [facility] Last Admin: 02/17/23 08:13 Dose: 100 mg Magnesium Hydroxide (Milk Of Magnesia 30 Ml Oral.Susp) 30 ml PO DAILY PRN PRN Reason: Constipation Last Admin: 02/08/23 08:33 Dose: 30 ml Olanzapine (Olanzapine 2.5 Mg Tablet) 2.5 mg PO TID PRN PRN Reason: agitation Last Admin: 02/03/23 04:05 Dose: 2.5 mg Olanzapine (Olanzapine 10 Mg Tablet) 10 mg PO BEDTIME [facility] Last Admin: 02/16/23 20:26 Dose: 10 mg Tramadol HCl (Tramadol Hcl 50 Mg Tablet) 50 mg PO Q6H PRN PRN Reason: Pain, Moderate(Pain Scale 4-6) Last Admin: 02/17/23 08:13 Dose: 50 mg Allergies Allergies Allergy/AdvReac Type Severity Reaction Status Date / Time pollen extracts Allergy Unknown unknown Verified 04/21/22 14:56 latex Allergy Rash Verified 10/31/22 18:30 Assessment & Plan Assessment & Plan (1) Bipolar disorder, now depressed: Status: Acute Code(s): F31.30 - Bipolar disorder, current episode depressed, mild or moderate severity, unspecified (2) Chronic back pain: Status: Acute Code(s): M54.9 - Dorsalgia, unspecified; G89.29 - Other chronic pain (3) Dementia: Status: Acute Code(s): F03.90 - Unspecified dementia, unspecified severity, without behavioral disturbance, psychotic disturbance, mood disturbance, and anxiety Plan 82 year old male with history hyperlipidemia, tubular adenoma colon, BPH, chronic normocytic anemia, 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 plan 1. Keep same treatment. 2, Waiting for placement. 02/16: Continue current management and treatment plan. 02/17: Continue current management and treatment plan. Reason for continued inpatient stay Substantial Risk for: inability to function and rapid decompensation Time Spent With Patient Time: Total time managing care of this patient today ____ minutes.
[2023-02-17 18:00] VITALS: BP 118/59; PULSE 72; RESP 18; TEMP 36.4; O2SAT 95
[2023-02-17] MEDS: OLANZapine 10 MG TABLET PO (20:36)
[2023-02-18] MEDS: traMADoL HCL 50 MG TABLET PO (00:47)
[2023-02-18] MEDS: OLANZapine 2.5 MG TABLET PO (00:47)
[2023-02-18] MEDS: hydrOXYzine HCL 25 MG TABLET PO (00:53)
[2023-02-18 06:00] VITALS: BP 90/56; PULSE 74; RESP 16; TEMP 36.6; O2SAT 93
[2023-02-18] MEDS: lamoTRIgine 100 MG TABLET PO ×2 (09:22→20:30)
--- NOTE | 2023-02-18 14:47 | P.PNPSI_ITS ---
Subjective Subjective Date of Service: 02/18/23 Reason For Visit: F31.9, F43.25 Subjective Notes: Conditional Voluntary Interim History: The nursing staff reports no changes in his mental status, he remains confused at times and easily agitated but redirectable. He slept 7 hours. On interview the patient denies new symptoms, waiting for placement. Mental Status Exam Mental Status Exam Patient Appearance: Appropriate Patient Orientation: Person and Situation Level of Consciousness: Awake and Appropriate Patient Behavior: Guarded and Suspicious Mood Description: Withdrawn Affect Description: Constricted Patient Cognition Impaired: Yes Ability to Follow Directions: Good Speech Pattern: Clear Hallucinations: None Delusions: Not Present Thought Process: Distracted and Evasive Thought Content: positive for [place], positive for [place] and positive for Poverty of Content Judgement: Fair Diagnostics Vital Signs (24Hr): Vital Signs - 24 hr 02/17/23 18:00 02/18/23 06:00 Temperature 97.6 F 97.9 F Pulse Rate 72 74 Respiratory Rate 18 16 Blood Pressure 118/59 L 90/56 L Pulse Oximetry 95 93 Oxygen Delivery Method Room Air Room Air BMI result Body Mass Index 27.3 Labs 02/15/23 06:42 02/15/23 06:43 Medications Medications Current Medications Al Hydroxide/Mg Hydroxide (Magnesium Hydrox/Alum Hydrox 30 Ml Oral.Susp) 30 ml PO Q6H PRN PRN Reason: Heartburn/Nausea Bisacodyl (Bisacodyl 5 Mg Tablet.Dr) 10 mg PO DAILY PRN PRN Reason: Constipation Last Admin: 01/30/23 09:13 Dose: 10 mg Hydroxyzine HCl (Hydroxyzine Hcl 25 Mg Tablet) 25 mg PO Q6H PRN PRN Reason: Anxiety Last Admin: 02/18/23 00:53 Dose: 25 mg Lamotrigine (Lamotrigine 100 Mg Tablet) 100 mg PO BID [facility] Last Admin: 02/18/23 09:22 Dose: 100 mg Magnesium Hydroxide (Milk Of Magnesia 30 Ml Oral.Susp) 30 ml PO DAILY PRN PRN Reason: Constipation Last Admin: 02/08/23 08:33 Dose: 30 ml Olanzapine (Olanzapine 2.5 Mg Tablet) 2.5 mg PO TID PRN PRN Reason: agitation Last Admin: 02/18/23 00:47 Dose: 2.5 mg Olanzapine (Olanzapine 10 Mg Tablet) 10 mg PO BEDTIME [facility] Last Admin: 02/17/23 20:36 Dose: 10 mg Tramadol HCl (Tramadol Hcl 50 Mg Tablet) 50 mg PO Q6H PRN PRN Reason: Pain, Moderate(Pain Scale 4-6) Last Admin: 02/18/23 00:47 Dose: 50 mg Allergies Allergies Allergy/AdvReac Type Severity Reaction Status Date / Time pollen extracts Allergy Unknown unknown Verified 04/21/22 14:56 latex Allergy Rash Verified 10/31/22 18:30 Assessment & Plan Assessment & Plan (1) Bipolar disorder, now depressed: Status: Acute Code(s): F31.30 - Bipolar disorder, current episode depressed, mild or moderate severity, unspecified (2) Chronic back pain: Status: Acute Code(s): M54.9 - Dorsalgia, unspecified; G89.29 - Other chronic pain (3) Dementia: Status: Acute Code(s): F03.90 - Unspecified dementia, unspecified severity, without behavioral disturbance, psychotic disturbance, mood disturbance, and anxiety Plan 82 year old male with history hyperlipidemia, tubular adenoma colon, BPH, chronic normocytic anemia, 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 plan 1. Keep same treatment. 2, Waiting for placement. Reason for continued inpatient stay Substantial Risk for: inability to function, rapid decompensation and med/psych decompensation Time Spent With Patient Time: Total time managing care of this patient today __20__ minutes.
[2023-02-18 18:00] VITALS: BP 130/65; PULSE 77; RESP 18; TEMP 36.7; O2SAT 96
[2023-02-18] MEDS: OLANZapine 10 MG TABLET PO (20:30)
[2023-02-19 08:05] VITALS: BP 148/79; PULSE 69; RESP 18; TEMP 36.3; O2SAT 95
[2023-02-19] MEDS: lamoTRIgine 100 MG TABLET PO ×2 (08:16→21:05)
--- NOTE | 2023-02-19 16:19 | HO.PSYCHPN ---
Subjective Subjective Date of Service: 02/19/23 Reason For Visit: F31.9, F43.25 Subjective Notes: Conditional Voluntary Interim History: The nursing staff reported the patient had been pleasantly confused, flat easily redirectable he has not attend any groups. On interview the patient denies new symptoms, waiting for placement. Mental Status Exam Mental Status Exam Patient Appearance: Appropriate and Unkempt Patient Orientation: Person and Situation Level of Consciousness: Awake and Appropriate Patient Behavior: Guarded and Passive Mood Description: Withdrawn Affect Description: Constricted Patient Cognition Impaired: Yes Ability to Follow Directions: Good Speech Pattern: Clear Hallucinations: None Delusions: Not Present Thought Process: Evasive Thought Content: positive for [place] and positive for Poverty of Content Judgement: Poor Diagnostics Vital Signs (24Hr): Vital Signs - 24 hr 02/18/23 18:00 02/19/23 08:05 Temperature 98.0 F 97.4 F Pulse Rate 77 69 Respiratory Rate 18 18 Blood Pressure 130/65 148/79 H Pulse Oximetry 96 95 Oxygen Delivery Method Room Air Room Air BMI result Body Mass Index 27.3 Labs 02/15/23 06:42 02/15/23 06:43 Medications Medications Current Medications Al Hydroxide/Mg Hydroxide (Magnesium Hydrox/Alum Hydrox 30 Ml Oral.Susp) 30 ml PO Q6H PRN PRN Reason: Heartburn/Nausea Bisacodyl (Bisacodyl 5 Mg Tablet.Dr) 10 mg PO DAILY PRN PRN Reason: Constipation Last Admin: 01/30/23 09:13 Dose: 10 mg Hydroxyzine HCl (Hydroxyzine Hcl 25 Mg Tablet) 25 mg PO Q6H PRN PRN Reason: Anxiety Last Admin: 02/18/23 00:53 Dose: 25 mg Lamotrigine (Lamotrigine 100 Mg Tablet) 100 mg PO BID [facility] Last Admin: 02/19/23 08:16 Dose: 100 mg Magnesium Hydroxide (Milk Of Magnesia 30 Ml Oral.Susp) 30 ml PO DAILY PRN PRN Reason: Constipation Last Admin: 02/08/23 08:33 Dose: 30 ml Olanzapine (Olanzapine 2.5 Mg Tablet) 2.5 mg PO TID PRN PRN Reason: agitation Last Admin: 02/18/23 00:47 Dose: 2.5 mg Olanzapine (Olanzapine 10 Mg Tablet) 10 mg PO BEDTIME [facility] Last Admin: 02/18/23 20:30 Dose: 10 mg Tramadol HCl (Tramadol Hcl 50 Mg Tablet) 50 mg PO Q6H PRN PRN Reason: Pain, Moderate(Pain Scale 4-6) Last Admin: 02/18/23 00:47 Dose: 50 mg Allergies Allergies Allergy/AdvReac Type Severity Reaction Status Date / Time pollen extracts Allergy Unknown unknown Verified 04/21/22 14:56 latex Allergy Rash Verified 10/31/22 18:30 Assessment & Plan Assessment & Plan (1) Bipolar disorder, now depressed: Status: Acute Code(s): F31.30 - Bipolar disorder, current episode depressed, mild or moderate severity, unspecified (2) Chronic back pain: Status: Acute Code(s): M54.9 - Dorsalgia, unspecified; G89.29 - Other chronic pain (3) Dementia: Status: Acute Code(s): F03.90 - Unspecified dementia, unspecified severity, without behavioral disturbance, psychotic disturbance, mood disturbance, and anxiety Plan 82 year old male with history hyperlipidemia, tubular adenoma colon, BPH, chronic normocytic anemia, 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 plan 1. Keep same treatment. 2, Waiting for placement. Reason for continued inpatient stay Substantial Risk for: inability to function, rapid decompensation and med/psych decompensation Time Spent With Patient Time: Total time managing care of this patient today _20___ minutes.
[2023-02-19 18:00] VITALS: BP 148/93; PULSE 79; RESP 18; TEMP 36; O2SAT 96
[2023-02-19] MEDS: hydrOXYzine HCL 25 MG TABLET PO (21:05)
[2023-02-19] MEDS: OLANZapine 10 MG TABLET PO (21:05)
[2023-02-20 07:50] VITALS: BP 136/74; PULSE 78; RESP 18; TEMP 36.3; O2SAT 95
[2023-02-20] MEDS: lamoTRIgine 100 MG TABLET PO ×2 (08:52→20:30)
--- NOTE | 2023-02-20 13:57 | HO.PSYCHPN ---
Subjective Subjective Date of Service: 02/20/23 Reason For Visit: F31.9, F43.25 Subjective Notes: Conditional Voluntary Interim History: The nursing staff reported the patient had been compliant with treatment no changes on his mental status. On interview the patient denies new symptoms, waiting for placement. Mental Status Exam Mental Status Exam Patient Appearance: Well Grooomed and Appropriate Patient Orientation: Person and Situation Level of Consciousness: Awake and Appropriate Patient Behavior: Guarded and Passive Mood Description: Withdrawn Affect Description: Constricted Patient Cognition Impaired: Yes Ability to Follow Directions: Good Speech Pattern: Clear Hallucinations: None Delusions: Not Present Thought Process: Distracted Thought Content: positive for [place] and positive for Circumstantial Judgement: Fair Diagnostics Vital Signs (24Hr): Vital Signs - 24 hr 02/19/23 18:00 02/20/23 07:50 Temperature 96.8 F 97.3 F Pulse Rate 79 78 Respiratory Rate 18 18 Blood Pressure 148/93 H 136/74 Pulse Oximetry 96 95 Oxygen Delivery Method Room Air Room Air BMI result Body Mass Index 27.3 Labs 02/15/23 06:42 02/15/23 06:43 Medications Medications Current Medications Al Hydroxide/Mg Hydroxide (Magnesium Hydrox/Alum Hydrox 30 Ml Oral.Susp) 30 ml PO Q6H PRN PRN Reason: Heartburn/Nausea Bisacodyl (Bisacodyl 5 Mg Tablet.Dr) 10 mg PO DAILY PRN PRN Reason: Constipation Last Admin: 01/30/23 09:13 Dose: 10 mg Hydroxyzine HCl (Hydroxyzine Hcl 25 Mg Tablet) 25 mg PO Q6H PRN PRN Reason: Anxiety Last Admin: 02/19/23 21:05 Dose: 25 mg Lamotrigine (Lamotrigine 100 Mg Tablet) 100 mg PO BID [facility] Last Admin: 02/20/23 08:52 Dose: 100 mg Magnesium Hydroxide (Milk Of Magnesia 30 Ml Oral.Susp) 30 ml PO DAILY PRN PRN Reason: Constipation Last Admin: 02/08/23 08:33 Dose: 30 ml Olanzapine (Olanzapine 2.5 Mg Tablet) 2.5 mg PO TID PRN PRN Reason: agitation Last Admin: 02/18/23 00:47 Dose: 2.5 mg Olanzapine (Olanzapine 10 Mg Tablet) 10 mg PO BEDTIME [facility] Last Admin: 02/19/23 21:05 Dose: 10 mg Allergies Allergies Allergy/AdvReac Type Severity Reaction Status Date / Time pollen extracts Allergy Unknown unknown Verified 04/21/22 14:56 latex Allergy Rash Verified 10/31/22 18:30 Assessment & Plan Assessment & Plan (1) Bipolar disorder, now depressed: Status: Acute Code(s): F31.30 - Bipolar disorder, current episode depressed, mild or moderate severity, unspecified (2) Chronic back pain: Status: Acute Code(s): M54.9 - Dorsalgia, unspecified; G89.29 - Other chronic pain (3) Dementia: Status: Acute Code(s): F03.90 - Unspecified dementia, unspecified severity, without behavioral disturbance, psychotic disturbance, mood disturbance, and anxiety Plan 82 year old male with history hyperlipidemia, tubular adenoma colon, BPH, chronic normocytic anemia, 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 plan 1. Keep same treatment. 2, Waiting for placement. Reason for continued inpatient stay Substantial Risk for: inability to function, rapid decompensation and med/psych decompensation Time Spent With Patient Time: Total time managing care of this patient today __20__ minutes.
[2023-02-20 19:55] VITALS: BP 147/81; PULSE 75; RESP 18; TEMP 36.3; O2SAT 97
[2023-02-20] MEDS: OLANZapine 10 MG TABLET PO (20:30)
[2023-02-21] MEDS: traMADoL HCL 50 MG TABLET PO ×3 (04:01→20:04)
[2023-02-21 07:00] VITALS: BMI 27.6
[2023-02-21 08:05] VITALS: BP 117/72; PULSE 69; RESP 18; TEMP 36.3; O2SAT 95
[2023-02-21] MEDS: lamoTRIgine 100 MG TABLET PO ×2 (08:18→20:04)
--- NOTE | 2023-02-21 11:19 | P.PNPSI_ITS ---
Subjective Subjective Date of Service: 02/21/23 Reason For Visit: F31.9, F43.25 Subjective Notes: Conditional Voluntary Interim History: The nursing staff reported the patient had been confused oriented only to self but medication compliant. He complained of back pain. Last night he was confused and 1 to other's patient's room but he was easily redirectable. He slept well last night. On interview the patient denies new symptoms, waiting for placement. Mental Status Exam Mental Status Exam Patient Appearance: Appropriate Patient Orientation: Person Level of Consciousness: Awake Patient Behavior: Guarded and Passive Mood Description: Withdrawn Affect Description: Constricted Patient Cognition Impaired: Yes Ability to Follow Directions: Good Speech Pattern: Clear Hallucinations: None Delusions: Not Present Thought Process: Illogical and Slowed Thinking Thought Content: positive for [place] and positive for Poverty of Content Judgement: Fair Diagnostics Vital Signs (24Hr): Vital Signs - 24 hr 02/20/23 19:55 02/21/23 08:05 Temperature 97.4 F 97.4 F Pulse Rate 75 69 Respiratory Rate 18 18 Blood Pressure 147/81 H 117/72 Pulse Oximetry 97 95 Oxygen Delivery Method Room Air Room Air BMI result Body Mass Index 27.6 Labs 02/15/23 06:42 02/15/23 06:43 Medications Medications Current Medications Al Hydroxide/Mg Hydroxide (Magnesium Hydrox/Alum Hydrox 30 Ml Oral.Susp) 30 ml PO Q6H PRN PRN Reason: Heartburn/Nausea Bisacodyl (Bisacodyl 5 Mg Tablet.Dr) 10 mg PO DAILY PRN PRN Reason: Constipation Last Admin: 01/30/23 09:13 Dose: 10 mg Hydroxyzine HCl (Hydroxyzine Hcl 25 Mg Tablet) 25 mg PO Q6H PRN PRN Reason: Anxiety Last Admin: 02/19/23 21:05 Dose: 25 mg Lamotrigine (Lamotrigine 100 Mg Tablet) 100 mg PO BID [facility] Last Admin: 02/21/23 08:18 Dose: 100 mg Magnesium Hydroxide (Milk Of Magnesia 30 Ml Oral.Susp) 30 ml PO DAILY PRN PRN Reason: Constipation Last Admin: 02/08/23 08:33 Dose: 30 ml Olanzapine (Olanzapine 2.5 Mg Tablet) 2.5 mg PO TID PRN PRN Reason: agitation Last Admin: 02/18/23 00:47 Dose: 2.5 mg Olanzapine (Olanzapine 10 Mg Tablet) 10 mg PO BEDTIME [facility] Last Admin: 02/20/23 20:30 Dose: 10 mg Tramadol HCl (Tramadol Hcl 50 Mg Tablet) 50 mg PO Q6H PRN PRN Reason: Pain, Moderate(Pain Scale 4-6) Last Admin: 02/21/23 10:32 Dose: 50 mg Allergies Allergies Allergy/AdvReac Type Severity Reaction Status Date / Time pollen extracts Allergy Unknown unknown Verified 04/21/22 14:56 latex Allergy Rash Verified 10/31/22 18:30 Assessment & Plan Assessment & Plan (1) Bipolar disorder, now depressed: Status: Acute Code(s): F31.30 - Bipolar disorder, current episode depressed, mild or moderate severity, unspecified (2) Chronic back pain: Status: Acute Code(s): M54.9 - Dorsalgia, unspecified; G89.29 - Other chronic pain (3) Dementia: Status: Acute Code(s): F03.90 - Unspecified dementia, unspecified severity, without behavioral disturbance, psychotic disturbance, mood disturbance, and anxiety Plan 82 year old male with history hyperlipidemia, tubular adenoma colon, BPH, chronic normocytic anemia, 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 plan 1. Keep same treatment. 2, Waiting for placement. Reason for continued inpatient stay Substantial Risk for: inability to function, rapid decompensation and med/psych decompensation Time Spent With Patient Time: Total time managing care of this patient today __20__ minutes.
[2023-02-21 19:40] VITALS: BP 116/60; PULSE 78; RESP 18; TEMP 36.6; O2SAT 95
[2023-02-21] MEDS: OLANZapine 10 MG TABLET PO (20:04)
[2023-02-22] MEDS: traMADoL HCL 50 MG TABLET PO ×2 (02:02→08:45)
[2023-02-22 07:48] VITALS: BP 123/62; PULSE 74; RESP 18; TEMP 36.3; O2SAT 96
[2023-02-22] MEDS: lamoTRIgine 100 MG TABLET PO (08:45)
--- NOTE | 2023-02-22 13:34 | HO.PSYCHPN ---
Subjective Subjective Date of Service: 02/22/23 Reason For Visit: F31.9, F43.25 Subjective Notes: Conditional Voluntary Interim History: the nursing staff reported the patient had been more confused and irritable. Last night he slept poorly. The social contact worker reported he was referred to [facility] and we are waiting for financial clearance. On interview the patient denies new symptoms he agreed to start trazodone 100 mg p.o. q.h.s. to target insomnia. Mental Status Exam Mental Status Exam Patient Appearance: Appropriate Patient Orientation: Person Level of Consciousness: Alert Patient Behavior: Guarded Mood Description: Calm Affect Description: Blunted Patient Cognition Impaired: Yes Ability to Follow Directions: Good Speech Pattern: Clear Hallucinations: None Delusions: Paranoid Ideation Thought Process: Illogical and Distracted Thought Content: positive for [place] and positive for Poverty of Content Judgement: Poor Diagnostics Vital Signs (24Hr): Vital Signs - 24 hr 02/21/23 19:40 02/22/23 07:48 Temperature 97.8 F 97.3 F Pulse Rate 78 74 Respiratory Rate 18 18 Blood Pressure 116/60 123/62 Pulse Oximetry 95 96 Oxygen Delivery Method Room Air Room Air BMI result Body Mass Index 27.6 Labs 02/15/23 06:42 02/15/23 06:43 Medications Medications Current Medications Al Hydroxide/Mg Hydroxide (Magnesium Hydrox/Alum Hydrox 30 Ml Oral.Susp) 30 ml PO Q6H PRN PRN Reason: Heartburn/Nausea Bisacodyl (Bisacodyl 5 Mg Tablet.Dr) 10 mg PO DAILY PRN PRN Reason: Constipation Last Admin: 01/30/23 09:13 Dose: 10 mg Hydroxyzine HCl (Hydroxyzine Hcl 25 Mg Tablet) 25 mg PO Q6H PRN PRN Reason: Anxiety Last Admin: 02/19/23 21:05 Dose: 25 mg Lamotrigine (Lamotrigine 100 Mg Tablet) 100 mg PO BID [facility] Last Admin: 02/22/23 08:45 Dose: 100 mg Magnesium Hydroxide (Milk Of Magnesia 30 Ml Oral.Susp) 30 ml PO DAILY PRN PRN Reason: Constipation Last Admin: 02/08/23 08:33 Dose: 30 ml Olanzapine (Olanzapine 2.5 Mg Tablet) 2.5 mg PO TID PRN PRN Reason: agitation Last Admin: 02/18/23 00:47 Dose: 2.5 mg Olanzapine (Olanzapine 10 Mg Tablet) 10 mg PO BEDTIME [facility] Last Admin: 02/21/23 20:04 Dose: 10 mg Tramadol HCl (Tramadol Hcl 50 Mg Tablet) 50 mg PO Q6H PRN PRN Reason: Pain, Moderate(Pain Scale 4-6) Last Admin: 02/22/23 08:45 Dose: 50 mg Trazodone HCl (Trazodone Hcl 100 Mg Tablet) 100 mg PO BEDTIME [facility] Allergies Allergies Allergy/AdvReac Type Severity Reaction Status Date / Time pollen extracts Allergy Unknown unknown Verified 04/21/22 14:56 latex Allergy Rash Verified 10/31/22 18:30 Assessment & Plan Assessment & Plan (1) Bipolar disorder, now depressed: Status: Acute Code(s): F31.30 - Bipolar disorder, current episode depressed, mild or moderate severity, unspecified (2) Chronic back pain: Status: Acute Code(s): M54.9 - Dorsalgia, unspecified; G89.29 - Other chronic pain (3) Dementia: Status: Acute Code(s): F03.90 - Unspecified dementia, unspecified severity, without behavioral disturbance, psychotic disturbance, mood disturbance, and anxiety Plan 82 year old male with history hyperlipidemia, tubular adenoma colon, BPH, chronic normocytic anemia, 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 plan 1. Keep same treatment. 2, Waiting for placement. Reason for continued inpatient stay Substantial Risk for: inability to function, rapid decompensation and med/psych decompensation Time Spent With Patient Time: Total time managing care of this patient today __20__ minutes.
[2023-02-22 18:00] VITALS: RESP 16
[2023-02-23 06:00] VITALS: BP 95/51; PULSE 78; RESP 18; TEMP 36.4; O2SAT 93
[2023-02-23] MEDS: lamoTRIgine 100 MG TABLET PO ×2 (09:15→20:32)
[2023-02-23] MEDS: traMADoL HCL 50 MG TABLET PO (09:15)
--- NOTE | 2023-02-23 14:22 | P.PNPSI_ITS ---
Subjective Subjective Date of Service: 02/23/23 Reason For Visit: F31.9, F43.25 Subjective Notes: Section 8 Interim History: Pt asking this adjusto writer operator to help him get out of the unit and get his truck. He also asks this adjusto writer operator if I can provide him with a pillow so he can sleep in his truck. He does not know where he is- doesn't know city. thinks his truck is outside. He is taking medications. he denies physical pain. Medication Compliance: Yes Review of Systems Review of Systems Back pain that is chronic in nature, no incontinence urinary or donita, no fever or chills, and weakness in the legs Yes all other systems are reviewed and are negative and Unobtainable due to mental status Mental Status Exam Mental Status Exam Patient Appearance: Appropriate Patient Orientation: Person Level of Consciousness: Alert Patient Behavior: Guarded Mood Description: Calm Affect Description: Blunted Patient Cognition Impaired: Yes Ability to Follow Directions: Good Speech Pattern: Clear Diagnostics Vital Signs (24Hr): Vital Signs - 24 hr 02/22/23 18:00 02/23/23 06:00 Temperature 97.5 F Pulse Rate 78 Respiratory Rate 16 18 Blood Pressure 95/51 L Pulse Oximetry 93 Oxygen Delivery Method Room Air BMI result Body Mass Index 27.6 Labs 02/15/23 06:42 02/15/23 06:43 Medications Medications Current Medications Al Hydroxide/Mg Hydroxide (Magnesium Hydrox/Alum Hydrox 30 Ml Oral.Susp) 30 ml PO Q6H PRN PRN Reason: Heartburn/Nausea Bisacodyl (Bisacodyl 5 Mg Tablet.Dr) 10 mg PO DAILY PRN PRN Reason: Constipation Last Admin: 01/30/23 09:13 Dose: 10 mg Hydroxyzine HCl (Hydroxyzine Hcl 25 Mg Tablet) 25 mg PO Q6H PRN PRN Reason: Anxiety Last Admin: 02/19/23 21:05 Dose: 25 mg Lamotrigine (Lamotrigine 100 Mg Tablet) 100 mg PO BID [facility] Last Admin: 02/23/23 09:15 Dose: 100 mg Magnesium Hydroxide (Milk Of Magnesia 30 Ml Oral.Susp) 30 ml PO DAILY PRN PRN Reason: Constipation Last Admin: 02/08/23 08:33 Dose: 30 ml Olanzapine (Olanzapine 2.5 Mg Tablet) 2.5 mg PO TID PRN PRN Reason: agitation Last Admin: 02/18/23 00:47 Dose: 2.5 mg Olanzapine (Olanzapine 10 Mg Tablet) 10 mg PO BEDTIME [facility] Last Admin: 02/22/23 21:54 Dose: Not Given Tramadol HCl (Tramadol Hcl 50 Mg Tablet) 50 mg PO Q6H PRN PRN Reason: Pain, Moderate(Pain Scale 4-6) Last Admin: 02/23/23 09:15 Dose: 50 mg Trazodone HCl (Trazodone Hcl 100 Mg Tablet) 100 mg PO BEDTIME [facility] Last Admin: 02/22/23 21:55 Dose: Not Given Allergies Allergies Allergy/AdvReac Type Severity Reaction Status Date / Time pollen extracts Allergy Unknown unknown Verified 04/21/22 14:56 latex Allergy Rash Verified 10/31/22 18:30 Assessment & Plan Assessment & Plan (1) Bipolar disorder, now depressed: Status: Acute Code(s): F31.30 - Bipolar disorder, current episode depressed, mild or moderate severity, unspecified (2) Chronic back pain: Status: Acute Code(s): M54.9 - Dorsalgia, unspecified; G89.29 - Other chronic pain (3) Dementia: Status: Acute Code(s): F03.90 - Unspecified dementia, unspecified severity, without behavioral disturbance, psychotic disturbance, mood disturbance, and anxiety Plan 82 year old male with history hyperlipidemia, tubular adenoma colon, BPH, chronic normocytic anemia, 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 plan 02/23 continue tx. BP low. continue to monitor. Reason for continued inpatient stay Substantial Risk for: inability to function Time Spent With Patient Time: Total time managing care of this patient today ____ minutes.
[2023-02-23 19:50] VITALS: BP 139/75; PULSE 82; RESP 20; TEMP 36.4; O2SAT 94
[2023-02-23] MEDS: OLANZapine 10 MG TABLET PO (20:32)
[2023-02-23] MEDS: traZODone HCL 100 MG TABLET PO (20:32)
[2023-02-24] MEDS: traMADoL HCL 50 MG TABLET PO ×2 (00:29→19:49)
[2023-02-24 08:00] VITALS: BP 106/54; PULSE 60; RESP 18; TEMP 36.8; O2SAT 95
[2023-02-24] MEDS: lamoTRIgine 100 MG TABLET PO ×2 (08:35→19:49)
[2023-02-24 19:30] VITALS: BP 130/75; PULSE 72; RESP 16; TEMP 36.7; O2SAT 98
[2023-02-24] MEDS: OLANZapine 10 MG TABLET PO (19:49)
[2023-02-24] MEDS: traZODone HCL 100 MG TABLET PO (19:49)
[2023-02-24] MEDS: OLANZapine 2.5 MG TABLET PO (23:04)
[2023-02-24] MEDS: hydrOXYzine HCL 25 MG TABLET PO (23:04)
[2023-02-25 07:45] VITALS: BP 122/68; PULSE 71; RESP 18; TEMP 36.1; O2SAT 95
[2023-02-25] MEDS: lamoTRIgine 100 MG TABLET PO ×2 (08:21→21:36)
--- NOTE | 2023-02-25 13:50 | P.PNPSI_ITS ---
Subjective Subjective Date of Service: 02/25/23 Reason For Visit: F31.9, F43.25 Subjective Notes: Conditional Voluntary Interim History: The nursing staff reported the patient had been compliant with treatment, no changes in his mental status. The certified social workers in health care reported that he had been referred to [facility] and he could be discharged there whenever his financially clear. On interview the patient denies new symptoms, waiting for placement. Mental Status Exam Mental Status Exam Patient Appearance: Appropriate Patient Orientation: Person and Situation Level of Consciousness: Awake and Appropriate Patient Behavior: Guarded and Passive Mood Description: Withdrawn and Constricted Affect Description: Withdrawn and Constricted Patient Cognition Impaired: Yes Ability to Follow Directions: Good Speech Pattern: Clear Hallucinations: None Delusions: Not Present Thought Process: Distracted Thought Content: positive for [place] and positive for Poverty of Content Judgement: Poor Diagnostics Vital Signs (24Hr): Vital Signs - 24 hr 02/24/23 19:30 02/25/23 07:45 Temperature 98.0 F 97.0 F Pulse Rate 72 71 Respiratory Rate 16 18 Blood Pressure 130/75 122/68 Pulse Oximetry 98 95 Oxygen Delivery Method Room Air Room Air BMI result Body Mass Index 27.6 Labs 02/15/23 06:42 02/15/23 06:43 Medications Medications Current Medications Al Hydroxide/Mg Hydroxide (Magnesium Hydrox/Alum Hydrox 30 Ml Oral.Susp) 30 ml PO Q6H PRN PRN Reason: Heartburn/Nausea Bisacodyl (Bisacodyl 5 Mg Tablet.Dr) 10 mg PO DAILY PRN PRN Reason: Constipation Last Admin: 01/30/23 09:13 Dose: 10 mg Hydroxyzine HCl (Hydroxyzine Hcl 25 Mg Tablet) 25 mg PO Q6H PRN PRN Reason: Anxiety Last Admin: 02/24/23 23:04 Dose: 25 mg Lamotrigine (Lamotrigine 100 Mg Tablet) 100 mg PO BID [facility] Last Admin: 02/25/23 08:21 Dose: 100 mg Magnesium Hydroxide (Milk Of Magnesia 30 Ml Oral.Susp) 30 ml PO DAILY PRN PRN Reason: Constipation Last Admin: 02/08/23 08:33 Dose: 30 ml Olanzapine (Olanzapine 2.5 Mg Tablet) 2.5 mg PO TID PRN PRN Reason: agitation Last Admin: 02/24/23 23:04 Dose: 2.5 mg Olanzapine (Olanzapine 10 Mg Tablet) 10 mg PO BEDTIME [facility] Last Admin: 02/24/23 19:49 Dose: 10 mg Tramadol HCl (Tramadol Hcl 50 Mg Tablet) 50 mg PO Q6H PRN PRN Reason: Pain, Moderate(Pain Scale 4-6) Last Admin: 02/24/23 19:49 Dose: 50 mg Trazodone HCl (Trazodone Hcl 100 Mg Tablet) 100 mg PO BEDTIME [facility] Last Admin: 02/24/23 19:49 Dose: 100 mg Allergies Allergies Allergy/AdvReac Type Severity Reaction Status Date / Time pollen extracts Allergy Unknown unknown Verified 04/21/22 14:56 latex Allergy Rash Verified 10/31/22 18:30 Assessment & Plan Assessment & Plan (1) Bipolar disorder, now depressed: Status: Acute Code(s): F31.30 - Bipolar disorder, current episode depressed, mild or moderate severity, unspecified (2) Chronic back pain: Status: Acute Code(s): M54.9 - Dorsalgia, unspecified; G89.29 - Other chronic pain (3) Dementia: Status: Acute Code(s): F03.90 - Unspecified dementia, unspecified severity, without behavioral disturbance, psychotic disturbance, mood disturbance, and anxiety Plan 82 year old male with history hyperlipidemia, tubular adenoma colon, BPH, chronic normocytic anemia, 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 plan 02/23 continue tx. BP low. continue to monitor. Continue same treatment. Waiting for placement. Reason for continued inpatient stay Substantial Risk for: inability to function, rapid decompensation and med/psych decompensation Time Spent With Patient Time: Total time managing care of this patient today __20__ minutes.
[2023-02-25 18:00] VITALS: BP 127/63; PULSE 60; RESP 16; TEMP 36.1; O2SAT 98
[2023-02-25] MEDS: OLANZapine 10 MG TABLET PO (21:36)
[2023-02-25] MEDS: traZODone HCL 100 MG TABLET PO (21:36)
[2023-02-26 08:00] VITALS: BP 137/71; PULSE 76; RESP 16; TEMP 36.4; O2SAT 96
[2023-02-26] MEDS: lamoTRIgine 100 MG TABLET PO ×2 (08:01→20:46)
--- NOTE | 2023-02-26 12:54 | HO.PSYCHPN ---
Subjective Subjective Date of Service: 02/26/23 Reason For Visit: F31.9, F43.25 Subjective Notes: Conditional Voluntary Interim History: The nursing staff reported no changes in his mental status compliant with treatment. On interview the patient is pleasantly confused, waiting for placement. Mental Status Exam Mental Status Exam Patient Appearance: Appropriate Patient Orientation: Person and Situation Level of Consciousness: Awake Patient Behavior: Guarded and Passive Mood Description: Withdrawn Affect Description: Constricted Patient Cognition Impaired: Yes Ability to Follow Directions: Good Speech Pattern: Clear Hallucinations: None Delusions: Not Present Thought Process: Distracted and Linear Thought Content: positive for [place] and positive for Circumstantial Judgement: Fair Diagnostics Vital Signs (24Hr): Vital Signs - 24 hr 02/25/23 18:00 02/26/23 08:00 Temperature 97.0 F 97.5 F Pulse Rate 60 76 Respiratory Rate 16 16 Blood Pressure 127/63 137/71 Pulse Oximetry 98 96 Oxygen Delivery Method Room Air Room Air BMI result Body Mass Index 27.6 Labs 02/15/23 06:42 02/15/23 06:43 Medications Medications Current Medications Al Hydroxide/Mg Hydroxide (Magnesium Hydrox/Alum Hydrox 30 Ml Oral.Susp) 30 ml PO Q6H PRN PRN Reason: Heartburn/Nausea Bisacodyl (Bisacodyl 5 Mg Tablet.Dr) 10 mg PO DAILY PRN PRN Reason: Constipation Last Admin: 01/30/23 09:13 Dose: 10 mg Hydroxyzine HCl (Hydroxyzine Hcl 25 Mg Tablet) 25 mg PO Q6H PRN PRN Reason: Anxiety Last Admin: 02/24/23 23:04 Dose: 25 mg Lamotrigine (Lamotrigine 100 Mg Tablet) 100 mg PO BID [facility] Last Admin: 02/26/23 08:01 Dose: 100 mg Magnesium Hydroxide (Milk Of Magnesia 30 Ml Oral.Susp) 30 ml PO DAILY PRN PRN Reason: Constipation Last Admin: 02/08/23 08:33 Dose: 30 ml Olanzapine (Olanzapine 2.5 Mg Tablet) 2.5 mg PO TID PRN PRN Reason: agitation Last Admin: 02/24/23 23:04 Dose: 2.5 mg Olanzapine (Olanzapine 10 Mg Tablet) 10 mg PO BEDTIME [facility] Last Admin: 02/25/23 21:36 Dose: 10 mg Trazodone HCl (Trazodone Hcl 100 Mg Tablet) 100 mg PO BEDTIME [facility] Last Admin: 02/25/23 21:36 Dose: 100 mg Allergies Allergies Allergy/AdvReac Type Severity Reaction Status Date / Time pollen extracts Allergy Unknown unknown Verified 04/21/22 14:56 latex Allergy Rash Verified 10/31/22 18:30 Assessment & Plan Assessment & Plan (1) Bipolar disorder, now depressed: Status: Acute Code(s): F31.30 - Bipolar disorder, current episode depressed, mild or moderate severity, unspecified (2) Chronic back pain: Status: Acute Code(s): M54.9 - Dorsalgia, unspecified; G89.29 - Other chronic pain (3) Dementia: Status: Acute Code(s): F03.90 - Unspecified dementia, unspecified severity, without behavioral disturbance, psychotic disturbance, mood disturbance, and anxiety Plan 82 year old male with history hyperlipidemia, tubular adenoma colon, BPH, chronic normocytic anemia, 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 plan 02/23 continue tx. BP low. continue to monitor. Continue same treatment. Waiting for placement. Reason for continued inpatient stay Substantial Risk for: inability to function, rapid decompensation and med/psych decompensation Time Spent With Patient Time: Total time managing care of this patient today __20__ minutes.
[2023-02-26 18:00] VITALS: BP 121/59; PULSE 70; RESP 16; TEMP 36.2; O2SAT 94
[2023-02-26] MEDS: traZODone HCL 100 MG TABLET PO (20:47)
[2023-02-26] MEDS: OLANZapine 10 MG TABLET PO (20:47)
[2023-02-26] MEDS: OLANZapine 2.5 MG TABLET PO (23:01)
[2023-02-26] MEDS: hydrOXYzine HCL 25 MG TABLET PO (23:01)
[2023-02-27 07:40] VITALS: BP 137/68; PULSE 58; RESP 16; TEMP 36.2; O2SAT 98
[2023-02-27] MEDS: lamoTRIgine 100 MG TABLET PO ×2 (08:28→20:24)
--- NOTE | 2023-02-27 13:00 | PM.EVENT ---
Event Note Date of Service: 06/07/23 Time Spent With Patient Time: Total time managing care of this patient today ____ minutes.
--- NOTE | 2023-02-27 13:29 | P.PNPSI_ITS ---
Subjective Subjective Date of Service: 02/27/23 Reason For Visit: F31.9, F43.25 Subjective Notes: Conditional Voluntary Interim History: The nursing staff reported the patient had been more confused but redirectable. On interview the patient denies new symptoms, waiting for placement. Mental Status Exam Mental Status Exam Patient Appearance: Appropriate Patient Orientation: Person and Situation Level of Consciousness: Awake Patient Behavior: Guarded and Passive Mood Description: Withdrawn Affect Description: Constricted Patient Cognition Impaired: Yes Ability to Follow Directions: Good Speech Pattern: Clear Hallucinations: None Delusions: Ideas of Reference Thought Process: Distracted and Slowed Thinking Thought Content: positive for [place] and positive for Poverty of Content Judgement: Fair Diagnostics Vital Signs (24Hr): Vital Signs - 24 hr 02/26/23 18:00 02/27/23 07:40 Temperature 97.1 F 97.1 F Pulse Rate 70 58 Respiratory Rate 16 16 Blood Pressure 121/59 L 137/68 Pulse Oximetry 94 98 Oxygen Delivery Method Room Air Room Air BMI result Body Mass Index 27.6 Labs 02/15/23 06:42 02/15/23 06:43 Medications Medications Current Medications Al Hydroxide/Mg Hydroxide (Magnesium Hydrox/Alum Hydrox 30 Ml Oral.Susp) 30 ml PO Q6H PRN PRN Reason: Heartburn/Nausea Bisacodyl (Bisacodyl 5 Mg Tablet.Dr) 10 mg PO DAILY PRN PRN Reason: Constipation Last Admin: 01/30/23 09:13 Dose: 10 mg Hydroxyzine HCl (Hydroxyzine Hcl 25 Mg Tablet) 25 mg PO Q6H PRN PRN Reason: Anxiety Last Admin: 02/26/23 23:01 Dose: 25 mg Lamotrigine (Lamotrigine 100 Mg Tablet) 100 mg PO BID [facility] Last Admin: 02/27/23 08:28 Dose: 100 mg Magnesium Hydroxide (Milk Of Magnesia 30 Ml Oral.Susp) 30 ml PO DAILY PRN PRN Reason: Constipation Last Admin: 02/08/23 08:33 Dose: 30 ml Olanzapine (Olanzapine 2.5 Mg Tablet) 2.5 mg PO TID PRN PRN Reason: agitation Last Admin: 02/26/23 23:01 Dose: 2.5 mg Olanzapine (Olanzapine 10 Mg Tablet) 10 mg PO BEDTIME [facility] Last Admin: 02/26/23 20:47 Dose: 10 mg Trazodone HCl (Trazodone Hcl 100 Mg Tablet) 100 mg PO BEDTIME [facility] Last Admin: 02/26/23 20:47 Dose: 100 mg Allergies Allergies Allergy/AdvReac Type Severity Reaction Status Date / Time pollen extracts Allergy Unknown unknown Verified 04/21/22 14:56 latex Allergy Rash Verified 10/31/22 18:30 Assessment & Plan Assessment & Plan (1) Bipolar disorder, now depressed: Status: Acute Code(s): F31.30 - Bipolar disorder, current episode depressed, mild or moderate severity, unspecified (2) Chronic back pain: Status: Acute Code(s): M54.9 - Dorsalgia, unspecified; G89.29 - Other chronic pain (3) Dementia: Status: Acute Code(s): F03.90 - Unspecified dementia, unspecified severity, without behavioral disturbance, psychotic disturbance, mood disturbance, and anxiety Plan 82 year old male with history hyperlipidemia, tubular adenoma colon, BPH, chronic normocytic anemia, 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 plan 02/23 continue tx. BP low. continue to monitor. Continue same treatment. Waiting for placement. Reason for continued inpatient stay Substantial Risk for: inability to function, rapid decompensation and med/psych decompensation Time Spent With Patient Time: Total time managing care of this patient today __20__ minutes.
[2023-02-27 18:00] VITALS: BP 145/68; PULSE 77; RESP 18; TEMP 36.5; O2SAT 96
[2023-02-27] MEDS: traZODone HCL 100 MG TABLET PO (20:24)
[2023-02-27] MEDS: OLANZapine 10 MG TABLET PO (20:24)
[2023-02-28 07:00] VITALS: BMI 27.3
[2023-02-28 08:30] VITALS: BP 135/77; PULSE 71; RESP 18; TEMP 36.4; O2SAT 95
[2023-02-28] MEDS: lamoTRIgine 100 MG TABLET PO ×2 (08:30→20:32)
--- NOTE | 2023-02-28 12:28 | P.PNPSI_ITS ---
Subjective Subjective Date of Service: 02/28/23 Reason For Visit: F31.9, F43.25 Subjective Notes: Conditional Voluntary Interim History: The nursing staff reported the patient had been on his room, he tracks minimally, he have attended a few groups. On interview the patient denies new symptoms. Waiting for placement. Mental Status Exam Mental Status Exam Patient Appearance: Appropriate Patient Orientation: Person and Situation Level of Consciousness: Awake Patient Behavior: Guarded and Passive Mood Description: Withdrawn Affect Description: Constricted Patient Cognition Impaired: Yes Ability to Follow Directions: Fair Speech Pattern: Clear Hallucinations: None Delusions: Paranoid Ideation Thought Process: Distracted Thought Content: positive for [place] and positive for Poverty of Content Judgement: Poor Diagnostics Vital Signs (24Hr): Vital Signs - 24 hr 02/27/23 18:00 02/28/23 08:30 Temperature 97.7 F 97.5 F Pulse Rate 77 71 Respiratory Rate 18 18 Blood Pressure 145/68 H 135/77 Pulse Oximetry 96 95 Oxygen Delivery Method Room Air Room Air BMI result Body Mass Index 27.6 Labs 02/15/23 06:42 02/15/23 06:43 Medications Medications Current Medications Al Hydroxide/Mg Hydroxide (Magnesium Hydrox/Alum Hydrox 30 Ml Oral.Susp) 30 ml PO Q6H PRN PRN Reason: Heartburn/Nausea Bisacodyl (Bisacodyl 5 Mg Tablet.Dr) 10 mg PO DAILY PRN PRN Reason: Constipation Last Admin: 01/30/23 09:13 Dose: 10 mg Hydroxyzine HCl (Hydroxyzine Hcl 25 Mg Tablet) 25 mg PO Q6H PRN PRN Reason: Anxiety Last Admin: 02/26/23 23:01 Dose: 25 mg Lamotrigine (Lamotrigine 100 Mg Tablet) 100 mg PO BID [facility] Last Admin: 02/28/23 08:30 Dose: 100 mg Magnesium Hydroxide (Milk Of Magnesia 30 Ml Oral.Susp) 30 ml PO DAILY PRN PRN Reason: Constipation Last Admin: 02/08/23 08:33 Dose: 30 ml Olanzapine (Olanzapine 2.5 Mg Tablet) 2.5 mg PO TID PRN PRN Reason: agitation Last Admin: 02/26/23 23:01 Dose: 2.5 mg Olanzapine (Olanzapine 10 Mg Tablet) 10 mg PO BEDTIME [facility] Last Admin: 02/27/23 20:24 Dose: 10 mg Tramadol HCl (Tramadol Hcl 50 Mg Tablet) 50 mg PO Q6H PRN PRN Reason: Pain, Moderate(Pain Scale 4-6) Trazodone HCl (Trazodone Hcl 100 Mg Tablet) 100 mg PO BEDTIME [facility] Last Admin: 02/27/23 20:24 Dose: 100 mg Allergies Allergies Allergy/AdvReac Type Severity Reaction Status Date / Time pollen extracts Allergy Unknown unknown Verified 04/21/22 14:56 latex Allergy Rash Verified 10/31/22 18:30 Assessment & Plan Assessment & Plan (1) Bipolar disorder, now depressed: Status: Acute Code(s): F31.30 - Bipolar disorder, current episode depressed, mild or moderate severity, unspecified (2) Chronic back pain: Status: Acute Code(s): M54.9 - Dorsalgia, unspecified; G89.29 - Other chronic pain (3) Dementia: Status: Acute Code(s): F03.90 - Unspecified dementia, unspecified severity, without behavioral disturbance, psychotic disturbance, mood disturbance, and anxiety Plan 82 year old male with history hyperlipidemia, tubular adenoma colon, BPH, chronic normocytic anemia, 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 plan 02/23 continue tx. BP low. continue to monitor. Continue same treatment. Waiting for placement. Reason for continued inpatient stay Substantial Risk for: inability to function, rapid decompensation and med/psych decompensation Time Spent With Patient Time: Total time managing care of this patient today __20__ minutes.
[2023-02-28 18:00] VITALS: BP 166/82; PULSE 79; RESP 18; TEMP 36.4; O2SAT 95
[2023-02-28] MEDS: OLANZapine 10 MG TABLET PO (20:32)
[2023-02-28] MEDS: traZODone HCL 100 MG TABLET PO (20:32)
[2023-03-01] MEDS: traMADoL HCL 50 MG TABLET PO (04:28)
[2023-03-01 07:45] VITALS: BP 114/59; PULSE 70; RESP 18; TEMP 36.3; O2SAT 95
[2023-03-01] MEDS: lamoTRIgine 100 MG TABLET PO ×2 (08:45→19:47)
--- NOTE | 2023-03-01 12:55 | HO.PSYCHPN ---
Subjective Subjective Date of Service: 03/01/23 Reason For Visit: F31.9, F43.25 Subjective Notes: Conditional Voluntary Interim History: The nursing staff reported no changes in his mental status, confused. The occupational therapist reported that he has declined has been more evident the point that he cannot attend well to groups. On interview the patient was confused nonsensical at times. Mental Status Exam Mental Status Exam Patient Appearance: Appropriate Patient Orientation: Person Level of Consciousness: Awake Patient Behavior: Guarded and Passive Mood Description: Withdrawn Affect Description: Blunted Patient Cognition Impaired: Yes Ability to Follow Directions: Fair Speech Pattern: Impoverished Hallucinations: None Delusions: Not Present Thought Process: Illogical Thought Content: positive for [place] and positive for Thought Blocking Judgement: Poor Diagnostics Vital Signs (24Hr): Vital Signs - 24 hr 02/28/23 18:00 03/01/23 07:45 Temperature 97.6 F 97.3 F Pulse Rate 79 70 Respiratory Rate 18 18 Blood Pressure 166/82 H 114/59 L Pulse Oximetry 95 95 Oxygen Delivery Method Room Air Room Air BMI result Body Mass Index 27.3 Labs 02/15/23 06:42 02/15/23 06:43 Medications Medications Current Medications Al Hydroxide/Mg Hydroxide (Magnesium Hydrox/Alum Hydrox 30 Ml Oral.Susp) 30 ml PO Q6H PRN PRN Reason: Heartburn/Nausea Bisacodyl (Bisacodyl 5 Mg Tablet.Dr) 10 mg PO DAILY PRN PRN Reason: Constipation Last Admin: 01/30/23 09:13 Dose: 10 mg Hydroxyzine HCl (Hydroxyzine Hcl 25 Mg Tablet) 25 mg PO Q6H PRN PRN Reason: Anxiety Last Admin: 02/26/23 23:01 Dose: 25 mg Lamotrigine (Lamotrigine 100 Mg Tablet) 100 mg PO BID [facility] Last Admin: 03/01/23 08:45 Dose: 100 mg Magnesium Hydroxide (Milk Of Magnesia 30 Ml Oral.Susp) 30 ml PO DAILY PRN PRN Reason: Constipation Last Admin: 02/08/23 08:33 Dose: 30 ml Olanzapine (Olanzapine 2.5 Mg Tablet) 2.5 mg PO TID PRN PRN Reason: agitation Last Admin: 02/26/23 23:01 Dose: 2.5 mg Olanzapine (Olanzapine 10 Mg Tablet) 10 mg PO BEDTIME [facility] Last Admin: 02/28/23 20:32 Dose: 10 mg Tramadol HCl (Tramadol Hcl 50 Mg Tablet) 50 mg PO Q6H PRN PRN Reason: Pain, Moderate(Pain Scale 4-6) Last Admin: 03/01/23 04:28 Dose: 50 mg Trazodone HCl (Trazodone Hcl 100 Mg Tablet) 100 mg PO BEDTIME [facility] Last Admin: 02/28/23 20:32 Dose: 100 mg Allergies Allergies Allergy/AdvReac Type Severity Reaction Status Date / Time pollen extracts Allergy Unknown unknown Verified 04/21/22 14:56 latex Allergy Rash Verified 10/31/22 18:30 Assessment & Plan Assessment & Plan (1) Bipolar disorder, now depressed: Status: Acute Code(s): F31.30 - Bipolar disorder, current episode depressed, mild or moderate severity, unspecified (2) Chronic back pain: Status: Acute Code(s): M54.9 - Dorsalgia, unspecified; G89.29 - Other chronic pain (3) Dementia: Status: Acute Code(s): F03.90 - Unspecified dementia, unspecified severity, without behavioral disturbance, psychotic disturbance, mood disturbance, and anxiety Plan 82 year old male with history hyperlipidemia, tubular adenoma colon, BPH, chronic normocytic anemia, 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 plan 02/23 continue tx. BP low. continue to monitor. Continue same treatment. Waiting for placement. Reason for continued inpatient stay Substantial Risk for: inability to function, rapid decompensation and med/psych decompensation Time Spent With Patient Time: Total time managing care of this patient today _20___ minutes.
[2023-03-01 18:00] VITALS: BP 110/67; PULSE 72; RESP 17; TEMP 36.4; O2SAT 93
[2023-03-01] MEDS: traZODone HCL 100 MG TABLET PO (19:47)
[2023-03-01] MEDS: OLANZapine 10 MG TABLET PO (19:50)
[2023-03-02] MEDS: lamoTRIgine 100 MG TABLET PO ×2 (08:38→20:34)
[2023-03-02 08:40] VITALS: BP 123/84; PULSE 66; RESP 18; TEMP 36.6; O2SAT 95
--- NOTE | 2023-03-02 08:48 | HO.PSYCHPN ---
Subjective Subjective Date of Service: 03/02/23 Reason For Visit: F31.9, F43.25 Interim History: Pt seen, reviewed with the team. Pt sleeping, then joining the group. Confused, responsive to peers and staff. Looking for things to participate in. Medication Compliance: Yes Side effects from medications: No Attending Groups: Yes Review of Systems Acute medical concerns: No Medical Review of Systems: unchanged Review of Systems Review of Systems Yes Unobtainable due to mental status Mental Status Exam Mental Status Exam Patient Appearance: Appropriate Patient Orientation: Person Level of Consciousness: Awake Patient Behavior: Guarded and Passive Mood Description: Withdrawn Affect Description: Blunted Patient Cognition Impaired: Yes Ability to Follow Directions: Fair Speech Pattern: Impoverished Hallucinations: None Delusions: Not Present Thought Process: Illogical Thought Content: positive for [place] and positive for Thought Blocking Judgement: Poor Diagnostics Vital Signs (24Hr): Vital Signs - 24 hr 03/01/23 18:00 Temperature 97.6 F Pulse Rate 72 Respiratory Rate 17 Blood Pressure 110/67 Pulse Oximetry 93 Oxygen Delivery Method Room Air BMI result Body Mass Index 27.3 Labs 02/15/23 06:42 02/15/23 06:43 Medications Medications Current Medications Al Hydroxide/Mg Hydroxide (Magnesium Hydrox/Alum Hydrox 30 Ml Oral.Susp) 30 ml PO Q6H PRN PRN Reason: Heartburn/Nausea Bisacodyl (Bisacodyl 5 Mg Tablet.Dr) 10 mg PO DAILY PRN PRN Reason: Constipation Last Admin: 01/30/23 09:13 Dose: 10 mg Hydroxyzine HCl (Hydroxyzine Hcl 25 Mg Tablet) 25 mg PO Q6H PRN PRN Reason: Anxiety Last Admin: 02/26/23 23:01 Dose: 25 mg Lamotrigine (Lamotrigine 100 Mg Tablet) 100 mg PO BID [facility] Last Admin: 03/02/23 08:38 Dose: 100 mg Magnesium Hydroxide (Milk Of Magnesia 30 Ml Oral.Susp) 30 ml PO DAILY PRN PRN Reason: Constipation Last Admin: 02/08/23 08:33 Dose: 30 ml Olanzapine (Olanzapine 2.5 Mg Tablet) 2.5 mg PO TID PRN PRN Reason: agitation Last Admin: 02/26/23 23:01 Dose: 2.5 mg Olanzapine (Olanzapine 10 Mg Tablet) 10 mg PO BEDTIME [facility] Last Admin: 03/01/23 19:50 Dose: 10 mg Tramadol HCl (Tramadol Hcl 50 Mg Tablet) 50 mg PO Q6H PRN PRN Reason: Pain, Moderate(Pain Scale 4-6) Last Admin: 03/01/23 04:28 Dose: 50 mg Trazodone HCl (Trazodone Hcl 100 Mg Tablet) 100 mg PO BEDTIME [facility] Last Admin: 03/01/23 19:47 Dose: 100 mg Allergies Allergies Allergy/AdvReac Type Severity Reaction Status Date / Time pollen extracts Allergy Unknown unknown Verified 04/21/22 14:56 latex Allergy Rash Verified 10/31/22 18:30 Assessment & Plan Assessment & Plan (1) Bipolar disorder, now depressed: Status: Acute Code(s): F31.30 - Bipolar disorder, current episode depressed, mild or moderate severity, unspecified (2) Chronic back pain: Status: Acute Code(s): M54.9 - Dorsalgia, unspecified; G89.29 - Other chronic pain (3) Dementia: Status: Acute Code(s): F03.90 - Unspecified dementia, unspecified severity, without behavioral disturbance, psychotic disturbance, mood disturbance, and anxiety Plan 82 year old male with history hyperlipidemia, tubular adenoma colon, BPH, chronic normocytic anemia, 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 plan 02/23 continue tx. BP low. continue to monitor. Continue same treatment. Waiting for placement. 03/02/23 Continue current regime and plan of care. Informed Consent: does not understand Reason for continued inpatient stay Substantial Risk for: med/psych decompensation Time Spent With Patient Time: Total time managing care of this patient today ____ minutes.
[2023-03-02 19:30] VITALS: BP 123/67; PULSE 64; RESP 16; TEMP 36.7; O2SAT 97
[2023-03-02] MEDS: traMADoL HCL 50 MG TABLET PO (20:34)
[2023-03-02] MEDS: traZODone HCL 100 MG TABLET PO (20:34)
[2023-03-02] MEDS: OLANZapine 10 MG TABLET PO (20:34)
[2023-03-03 07:35] VITALS: BP 92/51; PULSE 71; RESP 16; TEMP 37; O2SAT 95
[2023-03-03] MEDS: lamoTRIgine 100 MG TABLET PO ×2 (08:19→20:30)
--- NOTE | 2023-03-03 14:28 | HO.PSYCHPN ---
Subjective Subjective Date of Service: 03/03/23 Reason For Visit: F31.9, F43.25 Interim History: Pt seen, reviewed with the team. Resting in bed, awakens easily, spontaneous smile, no verbalizations, returns to resting. Appears comfortable and in no acute distress. Medication Compliance: Yes Side effects from medications: No Attending Groups: Intermittent Review of Systems Acute medical concerns: No Medical Review of Systems: unchanged Review of Systems Review of Systems Yes Unobtainable due to mental status Mental Status Exam Mental Status Exam Patient Appearance: Appropriate Patient Orientation: Person Level of Consciousness: Awake Patient Behavior: Guarded and Passive Mood Description: Withdrawn Affect Description: Blunted Patient Cognition Impaired: Yes Ability to Follow Directions: Fair Speech Pattern: Impoverished Hallucinations: None Delusions: Not Present Thought Process: Illogical Thought Content: positive for [place] and positive for Thought Blocking Judgement: Poor Diagnostics Vital Signs (24Hr): Vital Signs - 24 hr 03/02/23 19:30 03/03/23 07:35 Temperature 98.0 F 98.6 F Pulse Rate 64 71 Respiratory Rate 16 16 Blood Pressure 123/67 92/51 L Pulse Oximetry 97 95 Oxygen Delivery Method Room Air Room Air BMI result Body Mass Index 27.3 Labs 02/15/23 06:42 02/15/23 06:43 Medications Medications Current Medications Al Hydroxide/Mg Hydroxide (Magnesium Hydrox/Alum Hydrox 30 Ml Oral.Susp) 30 ml PO Q6H PRN PRN Reason: Heartburn/Nausea Bisacodyl (Bisacodyl 5 Mg Tablet.Dr) 10 mg PO DAILY PRN PRN Reason: Constipation Last Admin: 01/30/23 09:13 Dose: 10 mg Hydroxyzine HCl (Hydroxyzine Hcl 25 Mg Tablet) 25 mg PO Q6H PRN PRN Reason: Anxiety Last Admin: 02/26/23 23:01 Dose: 25 mg Lamotrigine (Lamotrigine 100 Mg Tablet) 100 mg PO BID [facility] Last Admin: 03/03/23 08:19 Dose: 100 mg Magnesium Hydroxide (Milk Of Magnesia 30 Ml Oral.Susp) 30 ml PO DAILY PRN PRN Reason: Constipation Last Admin: 02/08/23 08:33 Dose: 30 ml Olanzapine (Olanzapine 2.5 Mg Tablet) 2.5 mg PO TID PRN PRN Reason: agitation Last Admin: 02/26/23 23:01 Dose: 2.5 mg Olanzapine (Olanzapine 10 Mg Tablet) 10 mg PO BEDTIME [facility] Last Admin: 03/02/23 20:34 Dose: 10 mg Tramadol HCl (Tramadol Hcl 50 Mg Tablet) 50 mg PO Q6H PRN PRN Reason: Pain, Moderate(Pain Scale 4-6) Last Admin: 03/02/23 20:34 Dose: 50 mg Trazodone HCl (Trazodone Hcl 100 Mg Tablet) 100 mg PO BEDTIME [facility] Last Admin: 03/02/23 20:34 Dose: 100 mg Allergies Allergies Allergy/AdvReac Type Severity Reaction Status Date / Time pollen extracts Allergy Unknown unknown Verified 04/21/22 14:56 latex Allergy Rash Verified 10/31/22 18:30 Assessment & Plan Assessment & Plan (1) Bipolar disorder, now depressed: Status: Acute Code(s): F31.30 - Bipolar disorder, current episode depressed, mild or moderate severity, unspecified (2) Chronic back pain: Status: Acute Code(s): M54.9 - Dorsalgia, unspecified; G89.29 - Other chronic pain (3) Dementia: Status: Acute Code(s): F03.90 - Unspecified dementia, unspecified severity, without behavioral disturbance, psychotic disturbance, mood disturbance, and anxiety Plan 82 year old male with history hyperlipidemia, tubular adenoma colon, BPH, chronic normocytic anemia, 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 plan 02/23 continue tx. BP low. continue to monitor. Continue same treatment. Waiting for placement. 03/02/23 Continue current regime and plan of care. 03/03/23 Continue current regime and plan of care. Informed Consent: does not understand Reason for continued inpatient stay Substantial Risk for: rapid decompensation Time Spent With Patient Time: Total time managing care of this patient today ____ minutes.
[2023-03-03 18:00] VITALS: BP 118/65; PULSE 80; RESP 16; TEMP 37.2; O2SAT 96
[2023-03-03] MEDS: OLANZapine 10 MG TABLET PO (20:30)
[2023-03-03] MEDS: hydrOXYzine HCL 25 MG TABLET PO (20:30)
[2023-03-03] MEDS: traZODone HCL 100 MG TABLET PO (20:31)
[2023-03-03] MEDS: traMADoL HCL 50 MG TABLET PO (20:31)
[2023-03-04 08:00] VITALS: BP 150/89; PULSE 76; RESP 18; TEMP 36.2; O2SAT 96
[2023-03-04] MEDS: traMADoL HCL 50 MG TABLET PO (08:43)
[2023-03-04] MEDS: lamoTRIgine 100 MG TABLET PO ×2 (08:44→23:16)
--- NOTE | 2023-03-04 13:32 | P.PNPSI_ITS ---
Subjective Subjective Date of Service: 03/04/23 Reason For Visit: F31.9, F43.25 Subjective Notes: Conditional Voluntary Interim History: The nursing staff reported the patient had been compliant with treatment. The occupational therapist that he had been decline cognitively and he participates minimally in groups. The social media coordinator reported that we are waiting for the financial clearance to transfer him to halfway facility. On interview the patient denies new symptoms, waiting for placement. Mental Status Exam Mental Status Exam Patient Appearance: Appropriate Patient Orientation: Person Level of Consciousness: Awake Patient Behavior: Passive Mood Description: Withdrawn Affect Description: Constricted Patient Cognition Impaired: Yes Ability to Follow Directions: Good Speech Pattern: Clear Hallucinations: None Delusions: Not Present Thought Process: Evasive and Slowed Thinking Thought Content: positive for [place] and positive for Poverty of Content Judgement: Poor Diagnostics Vital Signs (24Hr): Vital Signs - 24 hr 03/03/23 18:00 03/04/23 08:00 Temperature 98.9 F 97.2 F Pulse Rate 80 76 Respiratory Rate 16 18 Blood Pressure 118/65 150/89 H Pulse Oximetry 96 96 Oxygen Delivery Method Room Air Room Air BMI result Body Mass Index 27.3 Labs 02/15/23 06:42 02/15/23 06:43 Medications Medications Current Medications Al Hydroxide/Mg Hydroxide (Magnesium Hydrox/Alum Hydrox 30 Ml Oral.Susp) 30 ml PO Q6H PRN PRN Reason: Heartburn/Nausea Bisacodyl (Bisacodyl 5 Mg Tablet.Dr) 10 mg PO DAILY PRN PRN Reason: Constipation Last Admin: 01/30/23 09:13 Dose: 10 mg Hydroxyzine HCl (Hydroxyzine Hcl 25 Mg Tablet) 25 mg PO Q6H PRN PRN Reason: Anxiety Last Admin: 03/03/23 20:30 Dose: 25 mg Lamotrigine (Lamotrigine 100 Mg Tablet) 100 mg PO BID [facility] Last Admin: 03/04/23 08:44 Dose: 100 mg Magnesium Hydroxide (Milk Of Magnesia 30 Ml Oral.Susp) 30 ml PO DAILY PRN PRN Reason: Constipation Last Admin: 02/08/23 08:33 Dose: 30 ml Olanzapine (Olanzapine 2.5 Mg Tablet) 2.5 mg PO TID PRN PRN Reason: agitation Last Admin: 02/26/23 23:01 Dose: 2.5 mg Olanzapine (Olanzapine 10 Mg Tablet) 10 mg PO BEDTIME [facility] Last Admin: 03/03/23 20:30 Dose: 10 mg Tramadol HCl (Tramadol Hcl 50 Mg Tablet) 50 mg PO Q6H PRN PRN Reason: Pain, Moderate(Pain Scale 4-6) Last Admin: 03/04/23 08:43 Dose: 50 mg Trazodone HCl (Trazodone Hcl 100 Mg Tablet) 100 mg PO BEDTIME [facility] Last Admin: 03/03/23 20:31 Dose: 100 mg Allergies Allergies Allergy/AdvReac Type Severity Reaction Status Date / Time pollen extracts Allergy Unknown unknown Verified 04/21/22 14:56 latex Allergy Rash Verified 10/31/22 18:30 Assessment & Plan Assessment & Plan (1) Bipolar disorder, now depressed: Status: Acute Code(s): F31.30 - Bipolar disorder, current episode depressed, mild or moderate severity, unspecified (2) Chronic back pain: Status: Acute Code(s): M54.9 - Dorsalgia, unspecified; G89.29 - Other chronic pain (3) Dementia: Status: Acute Code(s): F03.90 - Unspecified dementia, unspecified severity, without behavioral disturbance, psychotic disturbance, mood disturbance, and anxiety Plan 82 year old male with history hyperlipidemia, tubular adenoma colon, BPH, chronic normocytic anemia, 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 plan 02/23 continue tx. BP low. continue to monitor. Continue same treatment. Waiting for placement. 03/02/23 Continue current regime and plan of care. 03/03/23 Continue current regime and plan of care. Reason for continued inpatient stay Substantial Risk for: inability to function, rapid decompensation and med/psych decompensation Time Spent With Patient Time: Total time managing care of this patient today __20__ minutes.
[2023-03-04 23:10] VITALS: BP 155/75; PULSE 76; RESP 18; TEMP 35.8; O2SAT 94
[2023-03-04] MEDS: traZODone HCL 100 MG TABLET PO (23:15)
[2023-03-04] MEDS: OLANZapine 10 MG TABLET PO (23:16)
[2023-03-05 08:05] VITALS: BP 118/56; PULSE 66; RESP 18; TEMP 36.3; O2SAT 96
[2023-03-05] MEDS: lamoTRIgine 100 MG TABLET PO ×2 (08:57→19:56)
--- NOTE | 2023-03-05 13:28 | P.PNPSI_ITS ---
Subjective Subjective Date of Service: 03/05/23 Reason For Visit: F31.9, F43.25 Subjective Notes: Conditional Voluntary Interim History: The nursing staff reported the patient had been fully compliant with treatment, no changes in his mental status. On interview the patient denies new symptoms, waiting for placement Mental Status Exam Mental Status Exam Patient Appearance: Appropriate Patient Orientation: Person Level of Consciousness: Awake Patient Behavior: Guarded and Passive Mood Description: Withdrawn Affect Description: Constricted Patient Cognition Impaired: Yes Ability to Follow Directions: Good Speech Pattern: Clear Hallucinations: None Delusions: Not Present Thought Process: Distracted and Evasive Thought Content: positive for [place] Judgement: Poor Diagnostics Vital Signs (24Hr): Vital Signs - 24 hr 03/04/23 23:10 03/05/23 08:05 Temperature 96.4 F L 97.4 F Pulse Rate 76 66 Respiratory Rate 18 18 Blood Pressure 155/75 H 118/56 L Pulse Oximetry 94 96 Oxygen Delivery Method Room Air Room Air BMI result Body Mass Index 27.3 Labs 02/15/23 06:42 02/15/23 06:43 Medications Medications Current Medications Al Hydroxide/Mg Hydroxide (Magnesium Hydrox/Alum Hydrox 30 Ml Oral.Susp) 30 ml PO Q6H PRN PRN Reason: Heartburn/Nausea Bisacodyl (Bisacodyl 5 Mg Tablet.Dr) 10 mg PO DAILY PRN PRN Reason: Constipation Last Admin: 01/30/23 09:13 Dose: 10 mg Hydroxyzine HCl (Hydroxyzine Hcl 25 Mg Tablet) 25 mg PO Q6H PRN PRN Reason: Anxiety Last Admin: 03/03/23 20:30 Dose: 25 mg Lamotrigine (Lamotrigine 100 Mg Tablet) 100 mg PO BID [facility] Last Admin: 03/05/23 08:57 Dose: 100 mg Magnesium Hydroxide (Milk Of Magnesia 30 Ml Oral.Susp) 30 ml PO DAILY PRN PRN Reason: Constipation Last Admin: 02/08/23 08:33 Dose: 30 ml Olanzapine (Olanzapine 2.5 Mg Tablet) 2.5 mg PO TID PRN PRN Reason: agitation Last Admin: 02/26/23 23:01 Dose: 2.5 mg Olanzapine (Olanzapine 10 Mg Tablet) 10 mg PO BEDTIME [facility] Last Admin: 03/04/23 23:16 Dose: 10 mg Trazodone HCl (Trazodone Hcl 100 Mg Tablet) 100 mg PO BEDTIME [facility] Last Admin: 03/04/23 23:15 Dose: 100 mg Allergies Allergies Allergy/AdvReac Type Severity Reaction Status Date / Time pollen extracts Allergy Unknown unknown Verified 04/21/22 14:56 latex Allergy Rash Verified 10/31/22 18:30 Assessment & Plan Assessment & Plan (1) Bipolar disorder, now depressed: Status: Acute Code(s): F31.30 - Bipolar disorder, current episode depressed, mild or moderate severity, unspecified (2) Chronic back pain: Status: Acute Code(s): M54.9 - Dorsalgia, unspecified; G89.29 - Other chronic pain (3) Dementia: Status: Acute Code(s): F03.90 - Unspecified dementia, unspecified severity, without behavioral disturbance, psychotic disturbance, mood disturbance, and anxiety Plan 82 year old male with history hyperlipidemia, tubular adenoma colon, BPH, chronic normocytic anemia, 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 plan 02/23 continue tx. BP low. continue to monitor. Continue same treatment. Waiting for placement. 03/02/23 Continue current regime and plan of care. 03/03/23 Continue current regime and plan of care. Reason for continued inpatient stay Substantial Risk for: inability to function, rapid decompensation and med/psych decompensation Time Spent With Patient Time: Total time managing care of this patient today __20__ minutes.
[2023-03-05 19:35] VITALS: BP 128/68; PULSE 77; RESP 18; TEMP 36.6; O2SAT 97
[2023-03-05] MEDS: traZODone HCL 100 MG TABLET PO (19:56)
[2023-03-05] MEDS: OLANZapine 10 MG TABLET PO (19:56)
[2023-03-06 07:45] VITALS: BP 154/73; PULSE 77; RESP 18; TEMP 36.4; O2SAT 94
[2023-03-06] MEDS: lamoTRIgine 100 MG TABLET PO ×2 (08:32→20:39)
--- NOTE | 2023-03-06 11:42 | P.PNPSI_ITS ---
Subjective Subjective Date of Service: 03/06/23 Reason For Visit: F31.9, F43.25 Subjective Notes: Conditional Voluntary Interim History: The nursing staff reported the patient had been compliant with treatment, he looks more confused and common. It seems that his cognitive decline has been worse in the last weeks. The social services manager reported that an [facility] facility [facility] take him but may minute financial clearance. On interview the patient denies new symptoms, waiting for placement. Mental Status Exam Mental Status Exam Patient Appearance: Appropriate Patient Orientation: Person Level of Consciousness: Awake Patient Behavior: Guarded and Passive Mood Description: Withdrawn Affect Description: Constricted Patient Cognition Impaired: Yes Ability to Follow Directions: Good Speech Pattern: Clear Hallucinations: None Delusions: Not Present Thought Process: Distracted and Slowed Thinking Thought Content: positive for [place] and positive for Poverty of Content Judgement: Fair Diagnostics Vital Signs (24Hr): Vital Signs - 24 hr 03/05/23 19:35 03/06/23 07:45 Temperature 97.8 F 97.5 F Pulse Rate 77 77 Respiratory Rate 18 18 Blood Pressure 128/68 154/73 H Pulse Oximetry 97 94 Oxygen Delivery Method Room Air Room Air BMI result Body Mass Index 27.3 Labs 02/15/23 06:42 02/15/23 06:43 Medications Medications Current Medications Al Hydroxide/Mg Hydroxide (Magnesium Hydrox/Alum Hydrox 30 Ml Oral.Susp) 30 ml PO Q6H PRN PRN Reason: Heartburn/Nausea Bisacodyl (Bisacodyl 5 Mg Tablet.Dr) 10 mg PO DAILY PRN PRN Reason: Constipation Last Admin: 01/30/23 09:13 Dose: 10 mg Hydroxyzine HCl (Hydroxyzine Hcl 25 Mg Tablet) 25 mg PO Q6H PRN PRN Reason: Anxiety Last Admin: 03/03/23 20:30 Dose: 25 mg Lamotrigine (Lamotrigine 100 Mg Tablet) 100 mg PO BID [facility] Last Admin: 03/06/23 08:32 Dose: 100 mg Magnesium Hydroxide (Milk Of Magnesia 30 Ml Oral.Susp) 30 ml PO DAILY PRN PRN Reason: Constipation Last Admin: 02/08/23 08:33 Dose: 30 ml Memantine (Memantine Hcl 5 Mg Tablet) 5 mg PO BID [facility] Olanzapine (Olanzapine 2.5 Mg Tablet) 2.5 mg PO TID PRN PRN Reason: agitation Last Admin: 02/26/23 23:01 Dose: 2.5 mg Olanzapine (Olanzapine 10 Mg Tablet) 10 mg PO BEDTIME [facility] Last Admin: 03/05/23 19:56 Dose: 10 mg Tramadol HCl (Tramadol Hcl 50 Mg Tablet) 50 mg PO Q6H PRN PRN Reason: Pain, Moderate(Pain Scale 4-6) Trazodone HCl (Trazodone Hcl 100 Mg Tablet) 100 mg PO BEDTIME [facility] Last Admin: 03/05/23 19:56 Dose: 100 mg Allergies Allergies Allergy/AdvReac Type Severity Reaction Status Date / Time pollen extracts Allergy Unknown unknown Verified 04/21/22 14:56 latex Allergy Rash Verified 10/31/22 18:30 Assessment & Plan Assessment & Plan (1) Bipolar disorder, now depressed: Status: Acute Code(s): F31.30 - Bipolar disorder, current episode depressed, mild or moderate severity, unspecified (2) Chronic back pain: Status: Acute Code(s): M54.9 - Dorsalgia, unspecified; G89.29 - Other chronic pain (3) Dementia: Status: Acute Code(s): F03.90 - Unspecified dementia, unspecified severity, without behavioral disturbance, psychotic disturbance, mood disturbance, and anxiety Plan 82 year old male with history hyperlipidemia, tubular adenoma colon, BPH, chronic normocytic anemia, 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 plan Continue same treatment. Waiting for placement. Reason for continued inpatient stay Substantial Risk for: inability to function, rapid decompensation and med/psych decompensation Time Spent With Patient Time: Total time managing care of this patient today __20__ minutes.
[2023-03-06 18:00] VITALS: BP 129/77; PULSE 68; RESP 16; TEMP 36.6; O2SAT 94
[2023-03-06] MEDS: Memantine HCl 5 MG TABLET PO (20:39)
[2023-03-06] MEDS: hydrOXYzine HCL 25 MG TABLET PO (20:39)
[2023-03-06] MEDS: OLANZapine 10 MG TABLET PO (20:39)
[2023-03-06] MEDS: traZODone HCL 100 MG TABLET PO (20:39)
[2023-03-06] MEDS: traMADoL HCL 50 MG TABLET PO (23:28)
[2023-03-06] MEDS: OLANZapine 2.5 MG TABLET PO (23:29)
[2023-03-07 07:00] VITALS: BMI 27.0
[2023-03-07 08:09] VITALS: BP 105/72; PULSE 75; RESP 18; TEMP 36.3; O2SAT 96
[2023-03-07] MEDS: lamoTRIgine 100 MG TABLET PO ×2 (08:45→20:22)
[2023-03-07] MEDS: Memantine HCl 5 MG TABLET PO ×2 (08:45→20:15)
[2023-03-07] MEDS: traMADoL HCL 50 MG TABLET PO ×2 (08:45→20:16)
--- NOTE | 2023-03-07 13:38 | P.PNPSI_ITS ---
Subjective Subjective Date of Service: 03/07/23 Reason For Visit: F31.9, F43.25 Subjective Notes: Conditional Voluntary Interim History: The nursing staff reported the patient had been more confused, he needs no help or his activities of daily life. On interview the patient was sedated, we decided to lower his Zyprexa to 7.5 p.o. q.h.s.. Mental Status Exam Mental Status Exam Patient Appearance: Well Grooomed and Appropriate Patient Orientation: Person and Situation Level of Consciousness: Awake and Sedated Patient Behavior: Guarded and Passive Mood Description: Withdrawn Affect Description: Constricted Patient Cognition Impaired: Yes Ability to Follow Directions: Good Speech Pattern: Clear Hallucinations: None Delusions: Not Present Thought Process: Distracted and Evasive Thought Content: positive for [place], positive for [place] and positive for Poverty of Content Judgement: Fair Diagnostics Vital Signs (24Hr): Vital Signs - 24 hr 03/06/23 18:00 03/07/23 08:09 Temperature 98 F 97.3 F Pulse Rate 68 75 Respiratory Rate 16 18 Blood Pressure 129/77 105/72 Pulse Oximetry 94 96 Oxygen Delivery Method Room Air Room Air BMI result Body Mass Index 27.0 Labs 02/15/23 06:42 02/15/23 06:43 Medications Medications Current Medications Al Hydroxide/Mg Hydroxide (Magnesium Hydrox/Alum Hydrox 30 Ml Oral.Susp) 30 ml PO Q6H PRN PRN Reason: Heartburn/Nausea Bisacodyl (Bisacodyl 5 Mg Tablet.Dr) 10 mg PO DAILY PRN PRN Reason: Constipation Last Admin: 01/30/23 09:13 Dose: 10 mg Hydroxyzine HCl (Hydroxyzine Hcl 25 Mg Tablet) 25 mg PO Q6H PRN PRN Reason: Anxiety Last Admin: 03/06/23 20:39 Dose: 25 mg Lamotrigine (Lamotrigine 100 Mg Tablet) 100 mg PO BID [facility] Last Admin: 03/07/23 08:45 Dose: 100 mg Magnesium Hydroxide (Milk Of Magnesia 30 Ml Oral.Susp) 30 ml PO DAILY PRN PRN Reason: Constipation Last Admin: 02/08/23 08:33 Dose: 30 ml Memantine (Memantine Hcl 5 Mg Tablet) 5 mg PO BID [facility] Last Admin: 03/07/23 08:45 Dose: 5 mg Olanzapine (Olanzapine 2.5 Mg Tablet) 2.5 mg PO TID PRN PRN Reason: agitation Last Admin: 03/06/23 23:29 Dose: 2.5 mg Olanzapine (Olanzapine 7.5 Mg Tablet) 7.5 mg PO BEDTIME [facility] Tramadol HCl (Tramadol Hcl 50 Mg Tablet) 50 mg PO Q6H PRN PRN Reason: Pain, Moderate(Pain Scale 4-6) Last Admin: 03/07/23 08:45 Dose: 50 mg Trazodone HCl (Trazodone Hcl 100 Mg Tablet) 100 mg PO BEDTIME [facility] Last Admin: 03/06/23 20:39 Dose: 100 mg Allergies Allergies Allergy/AdvReac Type Severity Reaction Status Date / Time pollen extracts Allergy Unknown unknown Verified 04/21/22 14:56 latex Allergy Rash Verified 10/31/22 18:30 Assessment & Plan Assessment & Plan (1) Bipolar disorder, now depressed: Status: Acute Code(s): F31.30 - Bipolar disorder, current episode depressed, mild or moderate severity, unspecified (2) Chronic back pain: Status: Acute Code(s): M54.9 - Dorsalgia, unspecified; G89.29 - Other chronic pain (3) Dementia: Status: Acute Code(s): F03.90 - Unspecified dementia, unspecified severity, without behavioral disturbance, psychotic disturbance, mood disturbance, and anxiety Plan 82 year old male with history hyperlipidemia, tubular adenoma colon, BPH, chronic normocytic anemia, 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 plan Continue same treatment. Keep Lamictal. On March 08 we are lowering Zyprexa to 7.5 p.o. q.h.s. since his over-sedated Waiting for placement. Reason for continued inpatient stay Substantial Risk for: inability to function, rapid decompensation and med/psych decompensation Time Spent With Patient Time: Total time managing care of this patient today __20__ minutes.
[2023-03-07 18:00] VITALS: BP 123/61; PULSE 70; RESP 16; TEMP 36.6; O2SAT 95
[2023-03-07] MEDS: OLANZapine 7.5 MG TABLET PO (20:16)
[2023-03-07] MEDS: hydrOXYzine HCL 25 MG TABLET PO (20:21)
[2023-03-07] MEDS: traZODone HCL 100 MG TABLET PO (20:21)
[2023-03-07] MEDS: OLANZapine 2.5 MG TABLET PO (23:04)
[2023-03-08 07:50] VITALS: BP 131/68; PULSE 75; RESP 18; TEMP 36.1; O2SAT 95
--- NOTE | 2023-03-08 08:28 | P.PNPSI_ITS ---
Subjective Subjective Date of Service: 03/08/23 Reason For Visit: F31.9, F43.25 Subjective Notes: Conditional Voluntary Interim History: The nursing staff reported the patient looks more deteriorated, impaired, cognitively, wandering in the unit and sometimes confusing his room. On interview the patient denies new symptoms, waiting for placement. Mental Status Exam Mental Status Exam Patient Appearance: Well Grooomed and Appropriate Patient Orientation: Person and Situation Level of Consciousness: Awake Patient Behavior: Guarded and Passive Mood Description: Withdrawn Affect Description: Constricted Patient Cognition Impaired: Yes Ability to Follow Directions: Good Speech Pattern: Clear Hallucinations: None Delusions: Not Present Thought Process: Distracted and Evasive Thought Content: positive for [place] and positive for Poverty of Content Judgement: Fair Diagnostics Vital Signs (24Hr): Vital Signs - 24 hr 03/07/23 18:00 03/08/23 07:50 Temperature 97.8 F 96.9 F Pulse Rate 70 75 Respiratory Rate 16 18 Blood Pressure 123/61 131/68 Pulse Oximetry 95 95 Oxygen Delivery Method Room Air Room Air BMI result Body Mass Index 27.0 Labs 02/15/23 06:42 02/15/23 06:43 Medications Medications Current Medications Al Hydroxide/Mg Hydroxide (Magnesium Hydrox/Alum Hydrox 30 Ml Oral.Susp) 30 ml PO Q6H PRN PRN Reason: Heartburn/Nausea Bisacodyl (Bisacodyl 5 Mg Tablet.Dr) 10 mg PO DAILY PRN PRN Reason: Constipation Last Admin: 01/30/23 09:13 Dose: 10 mg Hydroxyzine HCl (Hydroxyzine Hcl 25 Mg Tablet) 25 mg PO Q6H PRN PRN Reason: Anxiety Last Admin: 03/07/23 20:21 Dose: 25 mg Lamotrigine (Lamotrigine 100 Mg Tablet) 100 mg PO BID [facility] Last Admin: 03/07/23 20:22 Dose: 100 mg Magnesium Hydroxide (Milk Of Magnesia 30 Ml Oral.Susp) 30 ml PO DAILY PRN PRN Reason: Constipation Last Admin: 02/08/23 08:33 Dose: 30 ml Memantine (Memantine Hcl 5 Mg Tablet) 5 mg PO BID [facility] Last Admin: 03/07/23 20:15 Dose: 5 mg Olanzapine (Olanzapine 2.5 Mg Tablet) 2.5 mg PO TID PRN PRN Reason: agitation Last Admin: 03/07/23 23:04 Dose: 2.5 mg Olanzapine (Olanzapine 7.5 Mg Tablet) 7.5 mg PO BEDTIME [facility] Last Admin: 03/07/23 20:16 Dose: 7.5 mg Tramadol HCl (Tramadol Hcl 50 Mg Tablet) 50 mg PO Q6H PRN PRN Reason: Pain, Moderate(Pain Scale 4-6) Last Admin: 03/07/23 20:16 Dose: 50 mg Trazodone HCl (Trazodone Hcl 100 Mg Tablet) 100 mg PO BEDTIME [facility] Last Admin: 03/07/23 20:21 Dose: 100 mg Allergies Allergies Allergy/AdvReac Type Severity Reaction Status Date / Time pollen extracts Allergy Unknown unknown Verified 04/21/22 14:56 latex Allergy Rash Verified 10/31/22 18:30 Assessment & Plan Assessment & Plan (1) Bipolar disorder, now depressed: Status: Acute Code(s): F31.30 - Bipolar disorder, current episode depressed, mild or moderate severity, unspecified (2) Chronic back pain: Status: Acute Code(s): M54.9 - Dorsalgia, unspecified; G89.29 - Other chronic pain (3) Dementia: Status: Acute Code(s): F03.90 - Unspecified dementia, unspecified severity, without behavioral disturbance, psychotic disturbance, mood disturbance, and anxiety Plan 82 year old male with history hyperlipidemia, tubular adenoma colon, BPH, chronic normocytic anemia, 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 plan Continue same treatment. Keep Lamictal. On March 08 we are lowering Zyprexa to 7.5 p.o. q.h.s. since his over-sedated Waiting for placement. Reason for continued inpatient stay Substantial Risk for: inability to function, rapid decompensation and med/psych decompensation Time Spent With Patient Time: Total time managing care of this patient today __20__ minutes.
[2023-03-08] MEDS: lamoTRIgine 100 MG TABLET PO ×2 (09:27→20:11)
[2023-03-08] MEDS: Memantine HCl 5 MG TABLET PO ×2 (09:27→20:13)
[2023-03-08 18:00] VITALS: BP 149/88; PULSE 74; RESP 16; TEMP 36.3; O2SAT 97
[2023-03-08] MEDS: OLANZapine 7.5 MG TABLET PO (20:11)
[2023-03-08] MEDS: traMADoL HCL 50 MG TABLET PO (20:12)
[2023-03-08] MEDS: traZODone HCL 100 MG TABLET PO (20:13)
[2023-03-09 08:00] VITALS: BP 113/62; PULSE 74; RESP 18; TEMP 36.6; O2SAT 94
[2023-03-09] MEDS: lamoTRIgine 100 MG TABLET PO ×2 (09:16→20:31)
[2023-03-09] MEDS: Memantine HCl 5 MG TABLET PO ×2 (09:16→20:31)
--- NOTE | 2023-03-09 11:06 | P.PNPSI_ITS ---
Subjective Subjective Date of Service: 03/09/23 Reason For Visit: F31.9, F43.25 Subjective Notes: Conditional Voluntary Interim History: The nursing staff reported the patient has been alert oriented to self confused but redirectable. He complains of pain. We are going to add p.r.n. Tylenol for pain. He slept well. On interview the patient denies new symptoms, confused easily redirectable. Mental Status Exam Mental Status Exam Patient Appearance: Well Grooomed Patient Orientation: Person and Situation Level of Consciousness: Awake and Appropriate Patient Behavior: Talkative and Suspicious Mood Description: Withdrawn Affect Description: Calm Patient Cognition Impaired: Yes Ability to Follow Directions: Good Speech Pattern: Clear Hallucinations: None Delusions: Not Present Thought Process: Distracted and Evasive Thought Content: positive for [place] and positive for Poverty of Content Judgement: Poor Diagnostics Vital Signs (24Hr): Vital Signs - 24 hr 03/08/23 18:00 03/09/23 08:00 Temperature 97.4 F 97.8 F Pulse Rate 74 74 Respiratory Rate 16 18 Blood Pressure 149/88 H 113/62 Pulse Oximetry 97 94 Oxygen Delivery Method Room Air Room Air BMI result Body Mass Index 27.0 Labs 02/15/23 06:42 02/15/23 06:43 Medications Medications Current Medications Al Hydroxide/Mg Hydroxide (Magnesium Hydrox/Alum Hydrox 30 Ml Oral.Susp) 30 ml PO Q6H PRN PRN Reason: Heartburn/Nausea Bisacodyl (Bisacodyl 5 Mg Tablet.Dr) 10 mg PO DAILY PRN PRN Reason: Constipation Last Admin: 01/30/23 09:13 Dose: 10 mg Hydroxyzine HCl (Hydroxyzine Hcl 25 Mg Tablet) 25 mg PO Q6H PRN PRN Reason: Anxiety Last Admin: 03/07/23 20:21 Dose: 25 mg Lamotrigine (Lamotrigine 100 Mg Tablet) 100 mg PO BID [facility] Last Admin: 03/09/23 09:16 Dose: 100 mg Magnesium Hydroxide (Milk Of Magnesia 30 Ml Oral.Susp) 30 ml PO DAILY PRN PRN Reason: Constipation Last Admin: 02/08/23 08:33 Dose: 30 ml Memantine (Memantine Hcl 5 Mg Tablet) 5 mg PO BID [facility] Last Admin: 03/09/23 09:16 Dose: 5 mg Olanzapine (Olanzapine 2.5 Mg Tablet) 2.5 mg PO TID PRN PRN Reason: agitation Last Admin: 03/07/23 23:04 Dose: 2.5 mg Olanzapine (Olanzapine 7.5 Mg Tablet) 7.5 mg PO BEDTIME [facility] Last Admin: 03/08/23 20:11 Dose: 7.5 mg Tramadol HCl (Tramadol Hcl 50 Mg Tablet) 50 mg PO Q6H PRN PRN Reason: Pain, Moderate(Pain Scale 4-6) Last Admin: 03/08/23 20:12 Dose: 50 mg Trazodone HCl (Trazodone Hcl 100 Mg Tablet) 100 mg PO BEDTIME [facility] Last Admin: 03/08/23 20:13 Dose: 100 mg Allergies Allergies Allergy/AdvReac Type Severity Reaction Status Date / Time pollen extracts Allergy Unknown unknown Verified 04/21/22 14:56 latex Allergy Rash Verified 10/31/22 18:30 Assessment & Plan Assessment & Plan (1) Bipolar disorder, now depressed: Status: Acute Code(s): F31.30 - Bipolar disorder, current episode depressed, mild or moderate severity, unspecified (2) Chronic back pain: Status: Acute Code(s): M54.9 - Dorsalgia, unspecified; G89.29 - Other chronic pain (3) Dementia: Status: Acute Code(s): F03.90 - Unspecified dementia, unspecified severity, without behavioral disturbance, psychotic disturbance, mood disturbance, and anxiety Plan 82 year old male with history hyperlipidemia, tubular adenoma colon, BPH, chronic normocytic anemia, 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 plan Continue same treatment. Keep Lamictal. On March 08 we are lowering Zyprexa to 7.5 p.o. q.h.s. since his over-sedated Waiting for placement. Reason for continued inpatient stay Substantial Risk for: inability to function, rapid decompensation and med/psych decompensation Time Spent With Patient Time: Total time managing care of this patient today __20__ minutes.
[2023-03-09 18:00] VITALS: BP 150/86; PULSE 80; RESP 16; TEMP 36.4; O2SAT 97
[2023-03-09] MEDS: traMADoL HCL 50 MG TABLET PO (20:31)
[2023-03-09] MEDS: traZODone HCL 100 MG TABLET PO (20:32)
[2023-03-09] MEDS: OLANZapine 7.5 MG TABLET PO (20:32)
[2023-03-10 08:28] VITALS: BP 141/83; PULSE 62; RESP 18; TEMP 36.2; O2SAT 98
[2023-03-10] MEDS: Memantine HCl 5 MG TABLET PO ×2 (08:55→20:30)
[2023-03-10] MEDS: lamoTRIgine 100 MG TABLET PO ×2 (08:55→20:30)
--- NOTE | 2023-03-10 11:03 | P.PNPSI_ITS ---
Subjective Subjective Date of Service: 03/10/23 Reason For Visit: F31.9, F43.25 Subjective Notes: Conditional Voluntary Interim History: The nursing staff reported patient no changes in his mental status she slept well last night he was brighter yesterday in the morning but remains confused. On interview the patient denies new symptoms, waiting for placement. Mental Status Exam Mental Status Exam Patient Appearance: Well Grooomed Patient Orientation: Person Level of Consciousness: Awake Patient Behavior: Passive Mood Description: Calm Affect Description: Constricted Patient Cognition Impaired: Yes Ability to Follow Directions: Good Speech Pattern: Clear Hallucinations: None Delusions: Ideas of Reference Thought Process: Evasive and Slowed Thinking Thought Content: positive for [place] and positive for Poverty of Content Judgement: Fair Diagnostics Vital Signs (24Hr): Vital Signs - 24 hr 03/09/23 18:00 03/10/23 08:28 Temperature 97.5 F 97.1 F Pulse Rate 80 62 Respiratory Rate 16 18 Blood Pressure 150/86 H 141/83 H Pulse Oximetry 97 98 Oxygen Delivery Method Room Air Room Air BMI result Body Mass Index 27.0 Labs 02/15/23 06:42 02/15/23 06:43 Medications Medications Current Medications Al Hydroxide/Mg Hydroxide (Magnesium Hydrox/Alum Hydrox 30 Ml Oral.Susp) 30 ml PO Q6H PRN PRN Reason: Heartburn/Nausea Bisacodyl (Bisacodyl 5 Mg Tablet.Dr) 10 mg PO DAILY PRN PRN Reason: Constipation Last Admin: 01/30/23 09:13 Dose: 10 mg Hydroxyzine HCl (Hydroxyzine Hcl 25 Mg Tablet) 25 mg PO Q6H PRN PRN Reason: Anxiety Last Admin: 03/07/23 20:21 Dose: 25 mg Lamotrigine (Lamotrigine 100 Mg Tablet) 100 mg PO BID [facility] Last Admin: 03/10/23 08:55 Dose: 100 mg Magnesium Hydroxide (Milk Of Magnesia 30 Ml Oral.Susp) 30 ml PO DAILY PRN PRN Reason: Constipation Last Admin: 02/08/23 08:33 Dose: 30 ml Memantine (Memantine Hcl 5 Mg Tablet) 5 mg PO BID [facility] Last Admin: 03/10/23 08:55 Dose: 5 mg Olanzapine (Olanzapine 2.5 Mg Tablet) 2.5 mg PO TID PRN PRN Reason: agitation Last Admin: 03/07/23 23:04 Dose: 2.5 mg Olanzapine (Olanzapine 7.5 Mg Tablet) 7.5 mg PO BEDTIME [facility] Last Admin: 03/09/23 20:32 Dose: 7.5 mg Tramadol HCl (Tramadol Hcl 50 Mg Tablet) 50 mg PO Q6H PRN PRN Reason: Pain, Moderate(Pain Scale 4-6) Last Admin: 03/09/23 20:31 Dose: 50 mg Trazodone HCl (Trazodone Hcl 100 Mg Tablet) 100 mg PO BEDTIME [facility] Last Admin: 03/09/23 20:32 Dose: 100 mg Allergies Allergies Allergy/AdvReac Type Severity Reaction Status Date / Time pollen extracts Allergy Unknown unknown Verified 04/21/22 14:56 latex Allergy Rash Verified 10/31/22 18:30 Assessment & Plan Assessment & Plan (1) Bipolar disorder, now depressed: Status: Acute Code(s): F31.30 - Bipolar disorder, current episode depressed, mild or moderate severity, unspecified (2) Chronic back pain: Status: Acute Code(s): M54.9 - Dorsalgia, unspecified; G89.29 - Other chronic pain (3) Dementia: Status: Acute Code(s): F03.90 - Unspecified dementia, unspecified severity, without behavioral disturbance, psychotic disturbance, mood disturbance, and anxiety Plan 82 year old male with history hyperlipidemia, tubular adenoma colon, BPH, chronic normocytic anemia, 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 plan Continue same treatment. Keep Lamictal. On March 08 we are lowering Zyprexa to 7.5 p.o. q.h.s. since his over-sedated Waiting for placement. Reason for continued inpatient stay Substantial Risk for: inability to function, rapid decompensation and med/psych decompensation Time Spent With Patient Time: Total time managing care of this patient today __20__ minutes.
[2023-03-10 18:00] VITALS: BP 118/51; RESP 68; TEMP 36.5; O2SAT 96
[2023-03-10] MEDS: OLANZapine 7.5 MG TABLET PO (20:29)
[2023-03-10] MEDS: traZODone HCL 100 MG TABLET PO (20:30)
[2023-03-10] MEDS: OLANZapine 2.5 MG TABLET PO (20:30)
[2023-03-10] MEDS: hydrOXYzine HCL 25 MG TABLET PO (20:30)
[2023-03-11 08:24] VITALS: BP 185/83; PULSE 70; RESP 16; TEMP 36.1; O2SAT 97
[2023-03-11] MEDS: Memantine HCl 5 MG TABLET PO ×2 (08:27→20:39)
[2023-03-11] MEDS: lamoTRIgine 100 MG TABLET PO ×2 (08:27→20:39)
[2023-03-11 11:23] VITALS: BP 128/83
--- NOTE | 2023-03-11 14:52 | P.PNPSI_ITS ---
Subjective Subjective Date of Service: 03/11/23 Reason For Visit: F31.9, F43.25 Subjective Notes: Conditional Voluntary Interim History: The nursing staff reported the patient had been confused, he showered and he slept 7 hours. The dialysis social worker reported that he is going to go to [facility]. On interview the patient remains pleasantly confused, easily redirectable. Mental Status Exam Mental Status Exam Patient Appearance: Well Grooomed and Appropriate Patient Orientation: Person Level of Consciousness: Awake and Appropriate Patient Behavior: Passive Mood Description: Withdrawn Affect Description: Constricted Patient Cognition Impaired: Yes Ability to Follow Directions: Good Speech Pattern: Clear Hallucinations: None Delusions: Not Present Thought Process: Distracted and Evasive Thought Content: positive for [place] and positive for Poverty of Content Judgement: Poor Diagnostics Vital Signs (24Hr): Vital Signs - 24 hr 03/10/23 18:00 03/11/23 08:24 03/11/23 11:23 Temperature 97.7 F 97 F Pulse Rate 70 Respiratory Rate 68 H 16 Blood Pressure 118/51 L 185/83 H 128/83 Pulse Oximetry 96 97 Oxygen Delivery Method Room Air Room Air BMI result Body Mass Index 27.0 Labs 02/15/23 06:42 02/15/23 06:43 Medications Medications Current Medications Al Hydroxide/Mg Hydroxide (Magnesium Hydrox/Alum Hydrox 30 Ml Oral.Susp) 30 ml PO Q6H PRN PRN Reason: Heartburn/Nausea Bisacodyl (Bisacodyl 5 Mg Tablet.Dr) 10 mg PO DAILY PRN PRN Reason: Constipation Last Admin: 01/30/23 09:13 Dose: 10 mg Hydroxyzine HCl (Hydroxyzine Hcl 25 Mg Tablet) 25 mg PO Q6H PRN PRN Reason: Anxiety Last Admin: 03/10/23 20:30 Dose: 25 mg Lamotrigine (Lamotrigine 100 Mg Tablet) 100 mg PO BID [facility] Last Admin: 03/11/23 08:27 Dose: 100 mg Magnesium Hydroxide (Milk Of Magnesia 30 Ml Oral.Susp) 30 ml PO DAILY PRN PRN Reason: Constipation Last Admin: 02/08/23 08:33 Dose: 30 ml Memantine (Memantine Hcl 5 Mg Tablet) 5 mg PO BID [facility] Last Admin: 03/11/23 08:27 Dose: 5 mg Olanzapine (Olanzapine 2.5 Mg Tablet) 2.5 mg PO TID PRN PRN Reason: agitation Last Admin: 03/10/23 20:30 Dose: 2.5 mg Olanzapine (Olanzapine 7.5 Mg Tablet) 7.5 mg PO BEDTIME [facility] Last Admin: 03/10/23 20:29 Dose: 7.5 mg Trazodone HCl (Trazodone Hcl 100 Mg Tablet) 100 mg PO BEDTIME [facility] Last Admin: 03/10/23 20:30 Dose: 100 mg Allergies Allergies Allergy/AdvReac Type Severity Reaction Status Date / Time pollen extracts Allergy Unknown unknown Verified 04/21/22 14:56 latex Allergy Rash Verified 10/31/22 18:30 Assessment & Plan Assessment & Plan (1) Bipolar disorder, now depressed: Status: Acute Code(s): F31.30 - Bipolar disorder, current episode depressed, mild or moderate severity, unspecified (2) Chronic back pain: Status: Acute Code(s): M54.9 - Dorsalgia, unspecified; G89.29 - Other chronic pain (3) Dementia: Status: Acute Code(s): F03.90 - Unspecified dementia, unspecified severity, without behavioral disturbance, psychotic disturbance, mood disturbance, and anxiety Plan 82 year old male with history hyperlipidemia, tubular adenoma colon, BPH, chronic normocytic anemia, 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 plan Continue same treatment. Keep Lamictal. On March 08 we are lowering Zyprexa to 7.5 p.o. q.h.s. since his over-sedated Waiting for placement. Reason for continued inpatient stay Substantial Risk for: inability to function, rapid decompensation and med/psych decompensation Time Spent With Patient Time: Total time managing care of this patient today __20__ minutes.
[2023-03-11 19:40] VITALS: BP 137/75; PULSE 76; RESP 16; TEMP 36.7; O2SAT 98
[2023-03-11] MEDS: OLANZapine 7.5 MG TABLET PO (20:39)
[2023-03-11] MEDS: traZODone HCL 100 MG TABLET PO (20:39)
[2023-03-12 08:18] VITALS: BP 130/72; PULSE 70; RESP 16; TEMP 36.5; O2SAT 96
[2023-03-12] MEDS: Memantine HCl 5 MG TABLET PO ×2 (08:19→21:16)
[2023-03-12] MEDS: lamoTRIgine 100 MG TABLET PO ×2 (08:19→21:16)
--- NOTE | 2023-03-12 12:00 | P.PNPSI_ITS ---
Subjective Subjective Date of Service: 03/12/23 Reason For Visit: F31.9, F43.25 Subjective Notes: Conditional Voluntary Interim History: The nursing staff reported the patient had been compliant with treatment, he slept 8 hours. Yesterday, he stated that he was his birthday and he was looking for his father. On interview the patient denies new symptoms, pleasantly confused, waiting for placement. Mental Status Exam Mental Status Exam Patient Appearance: Well Grooomed Patient Orientation: Person Level of Consciousness: Awake Patient Behavior: Passive Mood Description: Withdrawn Affect Description: Constricted Patient Cognition Impaired: Yes Ability to Follow Directions: Good Hallucinations: None Delusions: Not Present Thought Process: Distracted and Evasive Thought Content: positive for [place] and positive for Poverty of Content Judgement: Fair Diagnostics Vital Signs (24Hr): Vital Signs - 24 hr 03/11/23 19:40 03/12/23 08:18 Temperature 98.0 F 97.7 F Pulse Rate 76 70 Respiratory Rate 16 16 Blood Pressure 137/75 130/72 Pulse Oximetry 98 96 Oxygen Delivery Method Room Air Room Air BMI result Body Mass Index 27.0 Labs 02/15/23 06:42 02/15/23 06:43 Medications Medications Current Medications Al Hydroxide/Mg Hydroxide (Magnesium Hydrox/Alum Hydrox 30 Ml Oral.Susp) 30 ml PO Q6H PRN PRN Reason: Heartburn/Nausea Bisacodyl (Bisacodyl 5 Mg Tablet.Dr) 10 mg PO DAILY PRN PRN Reason: Constipation Last Admin: 01/30/23 09:13 Dose: 10 mg Hydroxyzine HCl (Hydroxyzine Hcl 25 Mg Tablet) 25 mg PO Q6H PRN PRN Reason: Anxiety Last Admin: 03/10/23 20:30 Dose: 25 mg Lamotrigine (Lamotrigine 100 Mg Tablet) 100 mg PO BID [facility] Last Admin: 03/12/23 08:19 Dose: 100 mg Magnesium Hydroxide (Milk Of Magnesia 30 Ml Oral.Susp) 30 ml PO DAILY PRN PRN Reason: Constipation Last Admin: 02/08/23 08:33 Dose: 30 ml Memantine (Memantine Hcl 5 Mg Tablet) 5 mg PO BID [facility] Last Admin: 03/12/23 08:19 Dose: 5 mg Olanzapine (Olanzapine 2.5 Mg Tablet) 2.5 mg PO TID PRN PRN Reason: agitation Last Admin: 03/10/23 20:30 Dose: 2.5 mg Olanzapine (Olanzapine 7.5 Mg Tablet) 7.5 mg PO BEDTIME [facility] Last Admin: 03/11/23 20:39 Dose: 7.5 mg Tramadol HCl (Tramadol Hcl 50 Mg Tablet) 50 mg PO Q4H PRN PRN Reason: Pain, Moderate(Pain Scale 4-6) Trazodone HCl (Trazodone Hcl 100 Mg Tablet) 100 mg PO BEDTIME [facility] Last Admin: 03/11/23 20:39 Dose: 100 mg Allergies Allergies Allergy/AdvReac Type Severity Reaction Status Date / Time pollen extracts Allergy Unknown unknown Verified 04/21/22 14:56 latex Allergy Rash Verified 10/31/22 18:30 Assessment & Plan Assessment & Plan (1) Bipolar disorder, now depressed: Status: Acute Code(s): F31.30 - Bipolar disorder, current episode depressed, mild or moderate severity, unspecified (2) Chronic back pain: Status: Acute Code(s): M54.9 - Dorsalgia, unspecified; G89.29 - Other chronic pain (3) Dementia: Status: Acute Code(s): F03.90 - Unspecified dementia, unspecified severity, without behavioral disturbance, psychotic disturbance, mood disturbance, and anxiety Plan 82 year old male with history hyperlipidemia, tubular adenoma colon, BPH, chronic normocytic anemia, 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 plan Continue same treatment. Keep Lamictal. On March 08 we are lowering Zyprexa to 7.5 p.o. q.h.s. since his over-sedated Waiting for placement. Reason for continued inpatient stay Substantial Risk for: inability to function, rapid decompensation and med/psych decompensation Time Spent With Patient Time: Total time managing care of this patient today _20___ minutes.
[2023-03-12 18:34] VITALS: BP 129/70; PULSE 69; RESP 18; TEMP 36.3; O2SAT 94
[2023-03-12] MEDS: OLANZapine 7.5 MG TABLET PO (21:16)
[2023-03-12] MEDS: traZODone HCL 100 MG TABLET PO (21:16)
[2023-03-13 08:49] VITALS: BP 134/81; PULSE 72; RESP 18; TEMP 36.2; O2SAT 95
[2023-03-13] MEDS: lamoTRIgine 100 MG TABLET PO ×2 (08:51→20:32)
[2023-03-13] MEDS: Memantine HCl 5 MG TABLET PO ×2 (08:51→20:32)
--- NOTE | 2023-03-13 15:37 | P.PNPSI_ITS ---
Subjective Subjective Date of Service: 03/13/23 Reason For Visit: F31.9, F43.25 Interim History: c/o constipation, asking for laxative. no notable report from administrative staff supervisor. Mental Status Exam Mental Status Exam Patient Appearance: Well Grooomed Patient Orientation: Person Level of Consciousness: Awake Patient Behavior: Passive Mood Description: Withdrawn Affect Description: Constricted Patient Cognition Impaired: Yes Ability to Follow Directions: Good Hallucinations: None Delusions: Not Present Thought Process: Distracted and Evasive Thought Content: positive for [place] and positive for Poverty of Content Judgement: Fair Diagnostics Vital Signs (24Hr): Vital Signs - 24 hr 03/12/23 18:34 03/13/23 08:49 Temperature 97.4 F 97.1 F Pulse Rate 69 72 Respiratory Rate 18 18 Blood Pressure 129/70 134/81 Pulse Oximetry 94 95 Oxygen Delivery Method Room Air Room Air BMI result Body Mass Index 27.0 Labs 02/15/23 06:42 02/15/23 06:43 Medications Medications Current Medications Al Hydroxide/Mg Hydroxide (Magnesium Hydrox/Alum Hydrox 30 Ml Oral.Susp) 30 ml PO Q6H PRN PRN Reason: Heartburn/Nausea Bisacodyl (Bisacodyl 5 Mg Tablet.Dr) 10 mg PO DAILY PRN PRN Reason: Constipation Last Admin: 01/30/23 09:13 Dose: 10 mg Hydroxyzine HCl (Hydroxyzine Hcl 25 Mg Tablet) 25 mg PO Q6H PRN PRN Reason: Anxiety Last Admin: 03/10/23 20:30 Dose: 25 mg Lamotrigine (Lamotrigine 100 Mg Tablet) 100 mg PO BID [facility] Last Admin: 03/13/23 08:51 Dose: 100 mg Magnesium Hydroxide (Milk Of Magnesia 30 Ml Oral.Susp) 30 ml PO DAILY PRN PRN Reason: Constipation Last Admin: 02/08/23 08:33 Dose: 30 ml Memantine (Memantine Hcl 5 Mg Tablet) 5 mg PO BID [facility] Last Admin: 03/13/23 08:51 Dose: 5 mg Olanzapine (Olanzapine 2.5 Mg Tablet) 2.5 mg PO TID PRN PRN Reason: agitation Last Admin: 03/10/23 20:30 Dose: 2.5 mg Olanzapine (Olanzapine 7.5 Mg Tablet) 7.5 mg PO BEDTIME [facility] Last Admin: 03/12/23 21:16 Dose: 7.5 mg Tramadol HCl (Tramadol Hcl 50 Mg Tablet) 50 mg PO Q4H PRN PRN Reason: Pain, Moderate(Pain Scale 4-6) Trazodone HCl (Trazodone Hcl 100 Mg Tablet) 100 mg PO BEDTIME [facility] Last Admin: 03/12/23 21:16 Dose: 100 mg Allergies Allergies Allergy/AdvReac Type Severity Reaction Status Date / Time pollen extracts Allergy Unknown unknown Verified 04/21/22 14:56 latex Allergy Rash Verified 10/31/22 18:30 Assessment & Plan Assessment & Plan (1) Bipolar disorder, now depressed: Status: Acute Code(s): F31.30 - Bipolar disorder, current episode depressed, mild or moderate severity, unspecified (2) Chronic back pain: Status: Acute Code(s): M54.9 - Dorsalgia, unspecified; G89.29 - Other chronic pain (3) Dementia: Status: Acute Code(s): F03.90 - Unspecified dementia, unspecified severity, without behavioral disturbance, psychotic disturbance, mood disturbance, and anxiety Plan 82 year old male with history hyperlipidemia, tubular adenoma colon, BPH, chronic normocytic anemia, 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 plan Continue same treatment. Keep Lamictal. On March 08 we are lowering Zyprexa to 7.5 p.o. q.h.s. since his over-sedated Waiting for placement. 03/13: c/o constipation, administrative staff supervisor informed. has PRN available. continue current mgmt. Reason for continued inpatient stay Substantial Risk for: inability to function Time Spent With Patient Time: Total time managing care of this patient today ____ minutes.
[2023-03-13 18:00] VITALS: BP 134/69; PULSE 71; RESP 16; TEMP 36.3; O2SAT 98
[2023-03-13] MEDS: OLANZapine 7.5 MG TABLET PO (20:32)
[2023-03-13] MEDS: traZODone HCL 100 MG TABLET PO (20:32)
[2023-03-14 07:45] VITALS: BP 108/57; PULSE 72; RESP 18; TEMP 36.4; O2SAT 92
[2023-03-14] MEDS: lamoTRIgine 100 MG TABLET PO ×2 (08:27→22:09)
[2023-03-14] MEDS: Memantine HCl 5 MG TABLET PO ×2 (08:27→22:09)
--- NOTE | 2023-03-14 15:35 | P.PNPSI_ITS ---
Subjective Subjective Date of Service: 03/14/23 Reason For Visit: F31.9, F43.25 Subjective Notes: Conditional Voluntary Interim History: The nursing staff reported that he had been confused, pleasant, medication compliant. He slept 8 hours. The director of social services reported the major problem is the financial clearance for placement. On interview the patient denies new symptoms, waiting for placement Mental Status Exam Mental Status Exam Patient Appearance: Well Grooomed and Appropriate Patient Orientation: Person and Situation Patient Behavior: Appropriate and Guarded Mood Description: Withdrawn Affect Description: Constricted Patient Cognition Impaired: Yes Ability to Follow Directions: Good Speech Pattern: Clear Hallucinations: None Delusions: Not Present Thought Process: Distracted and Slowed Thinking Thought Content: positive for [place] and positive for Poverty of Content Judgement: Poor Diagnostics Vital Signs (24Hr): Vital Signs - 24 hr 03/13/23 18:00 03/14/23 07:45 Temperature 97.4 F 97.6 F Pulse Rate 71 72 Respiratory Rate 16 18 Blood Pressure 134/69 108/57 L Pulse Oximetry 98 92 Oxygen Delivery Method Room Air Room Air BMI result Body Mass Index 27.0 Labs 02/15/23 06:42 02/15/23 06:43 Medications Medications Current Medications Al Hydroxide/Mg Hydroxide (Magnesium Hydrox/Alum Hydrox 30 Ml Oral.Susp) 30 ml PO Q6H PRN PRN Reason: Heartburn/Nausea Bisacodyl (Bisacodyl 5 Mg Tablet.Dr) 10 mg PO DAILY PRN PRN Reason: Constipation Last Admin: 01/30/23 09:13 Dose: 10 mg Hydroxyzine HCl (Hydroxyzine Hcl 25 Mg Tablet) 25 mg PO Q6H PRN PRN Reason: Anxiety Last Admin: 03/10/23 20:30 Dose: 25 mg Lamotrigine (Lamotrigine 100 Mg Tablet) 100 mg PO BID [facility] Last Admin: 03/14/23 08:27 Dose: 100 mg Magnesium Hydroxide (Milk Of Magnesia 30 Ml Oral.Susp) 30 ml PO DAILY PRN PRN Reason: Constipation Last Admin: 02/08/23 08:33 Dose: 30 ml Memantine (Memantine Hcl 5 Mg Tablet) 5 mg PO BID [facility] Last Admin: 03/14/23 08:27 Dose: 5 mg Olanzapine (Olanzapine 2.5 Mg Tablet) 2.5 mg PO TID PRN PRN Reason: agitation Last Admin: 03/10/23 20:30 Dose: 2.5 mg Olanzapine (Olanzapine 7.5 Mg Tablet) 7.5 mg PO BEDTIME [facility] Last Admin: 03/13/23 20:32 Dose: 7.5 mg Tramadol HCl (Tramadol Hcl 50 Mg Tablet) 50 mg PO Q4H PRN PRN Reason: Pain, Moderate(Pain Scale 4-6) Trazodone HCl (Trazodone Hcl 100 Mg Tablet) 100 mg PO BEDTIME [facility] Last Admin: 03/13/23 20:32 Dose: 100 mg Allergies Allergies Allergy/AdvReac Type Severity Reaction Status Date / Time pollen extracts Allergy Unknown unknown Verified 04/21/22 14:56 latex Allergy Rash Verified 10/31/22 18:30 Assessment & Plan Assessment & Plan (1) Bipolar disorder, now depressed: Status: Acute Code(s): F31.30 - Bipolar disorder, current episode depressed, mild or moderate severity, unspecified (2) Chronic back pain: Status: Acute Code(s): M54.9 - Dorsalgia, unspecified; G89.29 - Other chronic pain (3) Dementia: Status: Acute Code(s): F03.90 - Unspecified dementia, unspecified severity, without behavioral disturbance, psychotic disturbance, mood disturbance, and anxiety Plan 82 year old male with history hyperlipidemia, tubular adenoma colon, BPH, chronic normocytic anemia, 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 plan Continue same treatment. Keep Lamictal. On March 08 we are lowering Zyprexa to 7.5 p.o. q.h.s. since his over-sedated Waiting for placement. Reason for continued inpatient stay Substantial Risk for: inability to function, rapid decompensation and med/psych decompensation Time Spent With Patient Time: Total time managing care of this patient today __20__ minutes.
[2023-03-14 18:30] VITALS: BP 128/69; PULSE 74; RESP 18; TEMP 36.4; O2SAT 96
[2023-03-14] MEDS: OLANZapine 7.5 MG TABLET PO (22:09)
[2023-03-14] MEDS: traZODone HCL 100 MG TABLET PO (22:09)
[2023-03-15 07:35] VITALS: BP 138/77; PULSE 70; RESP 18; TEMP 36.2; O2SAT 94
--- NOTE | 2023-03-15 08:25 | HO.PSYCHPN ---
Subjective Subjective Date of Service: 03/15/23 Reason For Visit: F31.9, F43.25 Subjective Notes: Conditional Voluntary Interim History: The nursing staff reported the patient slept 7 hours, he had been confused nonsensical at times very easily redirectable pleasant on approach. He had been fully compliant with treatment. On interview the patient denies new symptoms, waiting for placement Mental Status Exam Mental Status Exam Patient Appearance: Well Grooomed Patient Orientation: Person Level of Consciousness: Awake Patient Behavior: Guarded and Passive Mood Description: Withdrawn Affect Description: Constricted Patient Cognition Impaired: Yes Ability to Follow Directions: Good Speech Pattern: Clear and Impoverished Hallucinations: None Delusions: Ideas of Reference Thought Process: Distracted and Slowed Thinking Thought Content: positive for [place] and positive for Poverty of Content Judgement: Fair Diagnostics Vital Signs (24Hr): Vital Signs - 24 hr 03/14/23 18:30 03/15/23 07:35 Temperature 97.5 F 97.1 F Pulse Rate 74 70 Respiratory Rate 18 18 Blood Pressure 128/69 138/77 Pulse Oximetry 96 94 Oxygen Delivery Method Room Air Room Air BMI result Body Mass Index 27.0 Labs 02/15/23 06:42 02/15/23 06:43 Medications Medications Current Medications Al Hydroxide/Mg Hydroxide (Magnesium Hydrox/Alum Hydrox 30 Ml Oral.Susp) 30 ml PO Q6H PRN PRN Reason: Heartburn/Nausea Bisacodyl (Bisacodyl 5 Mg Tablet.Dr) 10 mg PO DAILY PRN PRN Reason: Constipation Last Admin: 01/30/23 09:13 Dose: 10 mg Hydroxyzine HCl (Hydroxyzine Hcl 25 Mg Tablet) 25 mg PO Q6H PRN PRN Reason: Anxiety Last Admin: 03/10/23 20:30 Dose: 25 mg Lamotrigine (Lamotrigine 100 Mg Tablet) 100 mg PO BID [facility] Last Admin: 03/14/23 22:09 Dose: 100 mg Magnesium Hydroxide (Milk Of Magnesia 30 Ml Oral.Susp) 30 ml PO DAILY PRN PRN Reason: Constipation Last Admin: 02/08/23 08:33 Dose: 30 ml Memantine (Memantine Hcl 5 Mg Tablet) 5 mg PO BID [facility] Last Admin: 03/14/23 22:09 Dose: 5 mg Olanzapine (Olanzapine 2.5 Mg Tablet) 2.5 mg PO TID PRN PRN Reason: agitation Last Admin: 03/10/23 20:30 Dose: 2.5 mg Olanzapine (Olanzapine 7.5 Mg Tablet) 7.5 mg PO BEDTIME [facility] Last Admin: 03/14/23 22:09 Dose: 7.5 mg Tramadol HCl (Tramadol Hcl 50 Mg Tablet) 50 mg PO Q4H PRN PRN Reason: Pain, Moderate(Pain Scale 4-6) Trazodone HCl (Trazodone Hcl 100 Mg Tablet) 100 mg PO BEDTIME [facility] Last Admin: 03/14/23 22:09 Dose: 100 mg Allergies Allergies Allergy/AdvReac Type Severity Reaction Status Date / Time pollen extracts Allergy Unknown unknown Verified 04/21/22 14:56 latex Allergy Rash Verified 10/31/22 18:30 Assessment & Plan Assessment & Plan (1) Bipolar disorder, now depressed: Status: Acute Code(s): F31.30 - Bipolar disorder, current episode depressed, mild or moderate severity, unspecified (2) Chronic back pain: Status: Acute Code(s): M54.9 - Dorsalgia, unspecified; G89.29 - Other chronic pain (3) Dementia: Status: Acute Code(s): F03.90 - Unspecified dementia, unspecified severity, without behavioral disturbance, psychotic disturbance, mood disturbance, and anxiety Plan 82 year old male with history hyperlipidemia, tubular adenoma colon, BPH, chronic normocytic anemia, 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 plan Continue same treatment. Keep Lamictal. On March 08 we are lowering Zyprexa to 7.5 p.o. q.h.s. since his over-sedated Waiting for placement. Reason for continued inpatient stay Substantial Risk for: inability to function, rapid decompensation and med/psych decompensation Time Spent With Patient Time: Total time managing care of this patient today __20__ minutes.
[2023-03-15] MEDS: Memantine HCl 5 MG TABLET PO ×2 (08:34→20:51)
[2023-03-15] MEDS: lamoTRIgine 100 MG TABLET PO ×2 (08:34→20:52)
[2023-03-15 18:00] VITALS: BP 174/79; PULSE 69; RESP 16; TEMP 36; O2SAT 96
[2023-03-15] MEDS: traZODone HCL 100 MG TABLET PO (20:51)
[2023-03-15] MEDS: OLANZapine 7.5 MG TABLET PO (20:51)
[2023-03-15] MEDS: traMADoL HCL 50 MG TABLET PO (20:51)
[2023-03-16 08:10] VITALS: BP 124/62; PULSE 75; RESP 20; TEMP 36.9; O2SAT 95
[2023-03-16] MEDS: traMADoL HCL 50 MG TABLET PO ×2 (08:33→20:44)
[2023-03-16] MEDS: Memantine HCl 5 MG TABLET PO ×2 (08:34→20:45)
[2023-03-16] MEDS: lamoTRIgine 100 MG TABLET PO ×2 (08:34→20:44)
--- NOTE | 2023-03-16 17:06 | P.PNPSI_ITS ---
Subjective Subjective Date of Service: 03/16/23 Reason For Visit: F31.9, F43.25 Interim History: The nursing staff reported the patient slept well. He continues confused but not agitated. He is pleasant on approach. He denies any physical symptoms or pain. He is compliant with treatment. He is waiting for placement Review of Systems Review of Systems Back pain that is chronic in nature, no incontinence urinary or donita, no fever or chills, and weakness in the legs Yes all other systems are reviewed and are negative and Unobtainable due to mental status Mental Status Exam Mental Status Exam Narrative: pleasant. Engaged. Fair self-care. Some cognitive impairment evident. No depression, SI, HI, agitation or psychosis. Patient Appearance: Well Grooomed Patient Orientation: Person Level of Consciousness: Awake Patient Behavior: Guarded and Passive Mood Description: Withdrawn Affect Description: Constricted Patient Cognition Impaired: Yes Ability to Follow Directions: Good Speech Pattern: Clear and Impoverished Diagnostics Vital Signs (24Hr): Vital Signs - 24 hr 03/15/23 18:00 03/16/23 08:10 Temperature 96.8 F 98.4 F Pulse Rate 69 75 Respiratory Rate 16 20 Blood Pressure 174/79 H 124/62 Pulse Oximetry 96 95 Oxygen Delivery Method Room Air Room Air BMI result Body Mass Index 27.0 Labs 02/15/23 06:42 02/15/23 06:43 Medications Medications Current Medications Al Hydroxide/Mg Hydroxide (Magnesium Hydrox/Alum Hydrox 30 Ml Oral.Susp) 30 ml PO Q6H PRN PRN Reason: Heartburn/Nausea Bisacodyl (Bisacodyl 5 Mg Tablet.) 10 mg PO DAILY PRN PRN Reason: Constipation Last Admin: 01/30/23 09:13 Dose: 10 mg Hydroxyzine HCl (Hydroxyzine Hcl 25 Mg Tablet) 25 mg PO Q6H PRN PRN Reason: Anxiety Last Admin: 03/10/23 20:30 Dose: 25 mg Lamotrigine (Lamotrigine 100 Mg Tablet) 100 mg PO BID ON LICENSE OF [facility] Last Admin: 03/16/23 08:34 Dose: 100 mg Magnesium Hydroxide (Milk Of Magnesia 30 Ml Oral.Susp) 30 ml PO DAILY PRN PRN Reason: Constipation Last Admin: 02/08/23 08:33 Dose: 30 ml Memantine (Memantine Hcl 5 Mg Tablet) 5 mg PO BID ON LICENSE OF [facility] Last Admin: 03/16/23 08:34 Dose: 5 mg Olanzapine (Olanzapine 2.5 Mg Tablet) 2.5 mg PO TID PRN PRN Reason: agitation Last Admin: 03/10/23 20:30 Dose: 2.5 mg Olanzapine (Olanzapine 7.5 Mg Tablet) 7.5 mg PO BEDTIME ON LICENSE OF [facility] Last Admin: 03/15/23 20:51 Dose: 7.5 mg Tramadol HCl (Tramadol Hcl 50 Mg Tablet) 50 mg PO Q4H PRN PRN Reason: Pain, Moderate(Pain Scale 4-6) Last Admin: 03/16/23 08:33 Dose: 50 mg Trazodone HCl (Trazodone Hcl 100 Mg Tablet) 100 mg PO BEDTIME ON LICENSE OF [facility] Last Admin: 03/15/23 20:51 Dose: 100 mg Allergies Allergies Allergy/AdvReac Type Severity Reaction Status Date / Time pollen extracts Allergy Unknown unknown Verified 04/21/22 14:56 latex Allergy Rash Verified 10/31/22 18:30 Assessment & Plan Assessment & Plan (1) Bipolar disorder, now depressed: Status: Acute Code(s): F31.30 - Bipolar disorder, current episode depressed, mild or moderate severity, unspecified (2) Chronic back pain: Status: Acute Code(s): M54.9 - Dorsalgia, unspecified; G89.29 - Other chronic pain (3) Dementia: Status: Acute Code(s): F03.90 - Unspecified dementia, unspecified severity, without behavioral disturbance, psychotic disturbance, mood disturbance, and anxiety Plan 82 year old male with history hyperlipidemia, tubular adenoma colon, BPH, chronic normocytic anemia, 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 plan Continue same treatment. Keep Lamictal. On March 08 we are lowering Zyprexa to 7.5 p.o. q.h.s. since his over-sedated Waiting for placement. 03/16: Continue current plan. Reason for continued inpatient stay Substantial Risk for: inability to function and rapid decompensation Time Spent With Patient Time: Total time managing care of this patient today ____ minutes.
[2023-03-16 18:00] VITALS: BP 109/66; PULSE 73; RESP 16; TEMP 36.1; O2SAT 97
[2023-03-16] MEDS: OLANZapine 7.5 MG TABLET PO (20:44)
[2023-03-16] MEDS: traZODone HCL 100 MG TABLET PO (20:45)
[2023-03-17 08:01] VITALS: BP 151/82; PULSE 69; RESP 18; TEMP 36.1; O2SAT 94
[2023-03-17] MEDS: lamoTRIgine 100 MG TABLET PO ×2 (08:02→21:31)
[2023-03-17] MEDS: Memantine HCl 5 MG TABLET PO ×2 (08:02→21:31)
--- NOTE | 2023-03-17 19:29 | HO.PSYCHPN ---
Subjective Subjective Date of Service: 03/17/23 Reason For Visit: F31.9, F43.25 Interim History: The nursing staff reported the patient slept well. He continues confused but not agitated. He is paranoid when approached sitting against the wall in the hallway, he says he is protecting himself. He says there is a man that comes here and is targeting him. He is not agitated and polite on approach. He denies any physical symptoms or pain. He is compliant with treatment. He is waiting for placement Review of Systems Review of Systems Back pain that is chronic in nature, no incontinence urinary or donita, no fever or chills, and weakness in the legs Yes all other systems are reviewed and are negative and Unobtainable due to mental status Mental Status Exam Mental Status Exam Narrative: pleasant. Engaged. Fair self-care. Some cognitive impairment evident. No depression, SI, HI, agitation or psychosis. Patient Appearance: Well Grooomed Patient Orientation: Person Level of Consciousness: Awake Patient Behavior: Guarded and Passive Mood Description: Withdrawn Affect Description: Constricted Patient Cognition Impaired: Yes Ability to Follow Directions: Good Speech Pattern: Clear and Impoverished Diagnostics Vital Signs (24Hr): Vital Signs - 24 hr 03/17/23 08:01 Temperature 96.9 F Pulse Rate 69 Respiratory Rate 18 Blood Pressure 151/82 H Pulse Oximetry 94 Oxygen Delivery Method Room Air BMI result Body Mass Index 27.0 Labs 02/15/23 06:42 02/15/23 06:43 Medications Medications Current Medications Al Hydroxide/Mg Hydroxide (Magnesium Hydrox/Alum Hydrox 30 Ml Oral.Susp) 30 ml PO Q6H PRN PRN Reason: Heartburn/Nausea Bisacodyl (Bisacodyl 5 Mg Tablet.Dr) 10 mg PO DAILY PRN PRN Reason: Constipation Last Admin: 01/30/23 09:13 Dose: 10 mg Hydroxyzine HCl (Hydroxyzine Hcl 25 Mg Tablet) 25 mg PO Q6H PRN PRN Reason: Anxiety Last Admin: 03/10/23 20:30 Dose: 25 mg Lamotrigine (Lamotrigine 100 Mg Tablet) 100 mg PO BID [facility] Last Admin: 03/17/23 08:02 Dose: 100 mg Magnesium Hydroxide (Milk Of Magnesia 30 Ml Oral.Susp) 30 ml PO DAILY PRN PRN Reason: Constipation Last Admin: 02/08/23 08:33 Dose: 30 ml Memantine (Memantine Hcl 5 Mg Tablet) 5 mg PO BID [facility] Last Admin: 03/17/23 08:02 Dose: 5 mg Olanzapine (Olanzapine 2.5 Mg Tablet) 2.5 mg PO TID PRN PRN Reason: agitation Last Admin: 03/10/23 20:30 Dose: 2.5 mg Olanzapine (Olanzapine 7.5 Mg Tablet) 7.5 mg PO BEDTIME [facility] Last Admin: 03/16/23 20:44 Dose: 7.5 mg Tramadol HCl (Tramadol Hcl 50 Mg Tablet) 50 mg PO Q4H PRN PRN Reason: Pain, Moderate(Pain Scale 4-6) Last Admin: 03/16/23 20:44 Dose: 50 mg Trazodone HCl (Trazodone Hcl 100 Mg Tablet) 100 mg PO BEDTIME [facility] Last Admin: 03/16/23 20:45 Dose: 100 mg Allergies Allergies Allergy/AdvReac Type Severity Reaction Status Date / Time pollen extracts Allergy Unknown unknown Verified 04/21/22 14:56 latex Allergy Rash Verified 10/31/22 18:30 Assessment & Plan Assessment & Plan (1) Bipolar disorder, now depressed: Status: Acute Code(s): F31.30 - Bipolar disorder, current episode depressed, mild or moderate severity, unspecified (2) Chronic back pain: Status: Acute Code(s): M54.9 - Dorsalgia, unspecified; G89.29 - Other chronic pain (3) Dementia: Status: Acute Code(s): F03.90 - Unspecified dementia, unspecified severity, without behavioral disturbance, psychotic disturbance, mood disturbance, and anxiety Plan 82 year old male with history hyperlipidemia, tubular adenoma colon, BPH, chronic normocytic anemia, 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 plan Continue same treatment. Keep Lamictal. On March 08 we are lowering Zyprexa to 7.5 p.o. q.h.s. since his over-sedated Waiting for placement. 03/16: Continue current plan. 03/17: Continue current management and treatment plan. Reason for continued inpatient stay Substantial Risk for: inability to function and rapid decompensation Time Spent With Patient Time: Total time managing care of this patient today ____ minutes.
[2023-03-17] MEDS: traMADoL HCL 50 MG TABLET PO (21:31)
[2023-03-17] MEDS: traZODone HCL 100 MG TABLET PO (21:31)
[2023-03-17] MEDS: OLANZapine 7.5 MG TABLET PO (21:31)
[2023-03-17 21:34] VITALS: BP 106/61; PULSE 71; RESP 14; TEMP 36.7; O2SAT 95
[2023-03-18 07:55] VITALS: PULSE 111; RESP 18; TEMP 36.3; O2SAT 97
[2023-03-18] MEDS: lamoTRIgine 100 MG TABLET PO ×2 (08:36→20:35)
[2023-03-18] MEDS: Memantine HCl 5 MG TABLET PO ×2 (08:36→20:35)
--- NOTE | 2023-03-18 12:32 | HO.PSYCHPN ---
Subjective Subjective Date of Service: 03/18/23 Reason For Visit: F31.9, F43.25 Subjective Notes: Conditional Voluntary Interim History: The nursing staff reported the patient had no changes in his mental status, he had been very scared of his roommate who is restless. The social work manager reported that he has accepted [facility] but we are not waiting for financial clearance. On interview the patient denies new symptoms, waiting for placement. Mental Status Exam Mental Status Exam Patient Appearance: Appropriate Patient Orientation: Person and Situation Level of Consciousness: Awake and Appropriate Patient Behavior: Guarded and Passive Mood Description: Withdrawn Affect Description: Constricted Patient Cognition Impaired: Yes Ability to Follow Directions: Good Speech Pattern: Clear Hallucinations: None Delusions: Not Present Thought Process: Distracted and Evasive Thought Content: positive for [place] and positive for Poverty of Content Judgement: Fair Diagnostics Vital Signs (24Hr): Vital Signs - 24 hr 03/17/23 21:34 03/18/23 07:55 Temperature 98.0 F 97.4 F Pulse Rate 71 111 H Respiratory Rate 14 18 Blood Pressure 106/61 Pulse Oximetry 95 97 Oxygen Delivery Method Room Air Room Air BMI result Body Mass Index 27.0 Labs 02/15/23 06:42 02/15/23 06:43 Medications Medications Current Medications Al Hydroxide/Mg Hydroxide (Magnesium Hydrox/Alum Hydrox 30 Ml Oral.Susp) 30 ml PO Q6H PRN PRN Reason: Heartburn/Nausea Bisacodyl (Bisacodyl 5 Mg Tablet.Dr) 10 mg PO DAILY PRN PRN Reason: Constipation Last Admin: 01/30/23 09:13 Dose: 10 mg Hydroxyzine HCl (Hydroxyzine Hcl 25 Mg Tablet) 25 mg PO Q6H PRN PRN Reason: Anxiety Last Admin: 03/10/23 20:30 Dose: 25 mg Lamotrigine (Lamotrigine 100 Mg Tablet) 100 mg PO BID [facility] Last Admin: 03/18/23 08:36 Dose: 100 mg Magnesium Hydroxide (Milk Of Magnesia 30 Ml Oral.Susp) 30 ml PO DAILY PRN PRN Reason: Constipation Last Admin: 02/08/23 08:33 Dose: 30 ml Memantine (Memantine Hcl 5 Mg Tablet) 5 mg PO BID [facility] Last Admin: 03/18/23 08:36 Dose: 5 mg Olanzapine (Olanzapine 2.5 Mg Tablet) 2.5 mg PO TID PRN PRN Reason: agitation Last Admin: 03/10/23 20:30 Dose: 2.5 mg Olanzapine (Olanzapine 7.5 Mg Tablet) 7.5 mg PO BEDTIME [facility] Last Admin: 03/17/23 21:31 Dose: 7.5 mg Tramadol HCl (Tramadol Hcl 50 Mg Tablet) 50 mg PO Q4H PRN PRN Reason: Pain, Moderate(Pain Scale 4-6) Last Admin: 03/17/23 21:31 Dose: 50 mg Trazodone HCl (Trazodone Hcl 100 Mg Tablet) 100 mg PO BEDTIME [facility] Last Admin: 03/17/23 21:31 Dose: 100 mg Allergies Allergies Allergy/AdvReac Type Severity Reaction Status Date / Time pollen extracts Allergy Unknown unknown Verified 04/21/22 14:56 latex Allergy Rash Verified 10/31/22 18:30 Assessment & Plan Assessment & Plan (1) Bipolar disorder, now depressed: Status: Acute Code(s): F31.30 - Bipolar disorder, current episode depressed, mild or moderate severity, unspecified (2) Chronic back pain: Status: Acute Code(s): M54.9 - Dorsalgia, unspecified; G89.29 - Other chronic pain (3) Dementia: Status: Acute Code(s): F03.90 - Unspecified dementia, unspecified severity, without behavioral disturbance, psychotic disturbance, mood disturbance, and anxiety Plan 82 year old male with history hyperlipidemia, tubular adenoma colon, BPH, chronic normocytic anemia, 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 plan Continue same treatment. Keep Lamictal. On March 08 we are lowering Zyprexa to 7.5 p.o. q.h.s. since his over-sedated Waiting for placement. Reason for continued inpatient stay Substantial Risk for: inability to function, rapid decompensation and med/psych decompensation Time Spent With Patient Time: Total time managing care of this patient today __20__ minutes.
[2023-03-18 18:00] VITALS: BP 134/65; PULSE 69; RESP 18; TEMP 36.1; O2SAT 97
--- NOTE | 2023-03-18 18:34 | PC.NURSE ---
Room changed to 185-1 today.
[2023-03-18] MEDS: OLANZapine 7.5 MG TABLET PO (20:35)
[2023-03-18] MEDS: traZODone HCL 100 MG TABLET PO (20:35)
[2023-03-18] MEDS: traMADoL HCL 50 MG TABLET PO (22:28)
[2023-03-19 08:00] VITALS: BP 93/56; PULSE 74; RESP 18; TEMP 36.4; O2SAT 93
[2023-03-19] MEDS: lamoTRIgine 100 MG TABLET PO ×2 (09:00→20:32)
[2023-03-19] MEDS: Memantine HCl 5 MG TABLET PO ×2 (09:00→20:32)
[2023-03-19 09:16] LABS: COVID-19 Test Negative (Negative); IDNOW Serial# 58CA691E
[2023-03-19] MEDS: traMADoL HCL 50 MG TABLET PO (10:12)
[2023-03-19] MEDS: Milk of Magnesia 30 ML ORAL.SUSP PO (10:12)
--- NOTE | 2023-03-19 16:03 | HO.PSYCHPN ---
Subjective Subjective Date of Service: 03/19/23 Reason For Visit: F31.9, F43.25 Subjective Notes: Conditional Voluntary Interim History: Pt slept through the night. He reports back pain- ordered lidocaine patch. He denies SI/HI. No behavioral concerns. Medication Compliance: Yes Review of Systems Review of Systems Back pain that is chronic in nature, no incontinence urinary or donita, no fever or chills, and weakness in the legs Yes all other systems are reviewed and are negative and Unobtainable due to mental status Mental Status Exam Mental Status Exam Patient Appearance: Appropriate Patient Orientation: Person and Situation Level of Consciousness: Awake and Appropriate Patient Behavior: Guarded and Passive Mood Description: Withdrawn Affect Description: Constricted Patient Cognition Impaired: Yes Ability to Follow Directions: Good Speech Pattern: Clear Diagnostics Vital Signs (24Hr): Vital Signs - 24 hr 03/18/23 18:00 03/19/23 08:00 Temperature 96.9 F 97.6 F Pulse Rate 69 74 Respiratory Rate 18 18 Blood Pressure 134/65 93/56 L Pulse Oximetry 97 93 Oxygen Delivery Method Room Air Room Air BMI result Body Mass Index 27.0 Labs 02/15/23 06:42 02/15/23 06:43 Labs: Laboratory Results - last 48 hr 03/19/23 08:15 COVID-19 ([facility]) Negative COVID-19 Clin Com See Note Medications Medications Current Medications Al Hydroxide/Mg Hydroxide (Magnesium Hydrox/Alum Hydrox 30 Ml Oral.Susp) 30 ml PO Q6H PRN PRN Reason: Heartburn/Nausea Bisacodyl (Bisacodyl 5 Mg Tablet.Dr) 10 mg PO DAILY PRN PRN Reason: Constipation Last Admin: 01/30/23 09:13 Dose: 10 mg Hydroxyzine HCl (Hydroxyzine Hcl 25 Mg Tablet) 25 mg PO Q6H PRN PRN Reason: Anxiety Last Admin: 03/10/23 20:30 Dose: 25 mg Lamotrigine (Lamotrigine 100 Mg Tablet) 100 mg PO BID [facility] Last Admin: 03/19/23 09:00 Dose: 100 mg Magnesium Hydroxide (Milk Of Magnesia 30 Ml Oral.Susp) 30 ml PO DAILY PRN PRN Reason: Constipation Last Admin: 03/19/23 10:12 Dose: 30 ml Memantine (Memantine Hcl 5 Mg Tablet) 5 mg PO BID [facility] Last Admin: 03/19/23 09:00 Dose: 5 mg Olanzapine (Olanzapine 2.5 Mg Tablet) 2.5 mg PO TID PRN PRN Reason: agitation Last Admin: 03/10/23 20:30 Dose: 2.5 mg Olanzapine (Olanzapine 7.5 Mg Tablet) 7.5 mg PO BEDTIME [facility] Last Admin: 03/18/23 20:35 Dose: 7.5 mg Tramadol HCl (Tramadol Hcl 50 Mg Tablet) 50 mg PO Q4H PRN PRN Reason: Pain, Moderate(Pain Scale 4-6) Last Admin: 03/19/23 10:12 Dose: 50 mg Trazodone HCl (Trazodone Hcl 100 Mg Tablet) 100 mg PO BEDTIME [facility] Last Admin: 03/18/23 20:35 Dose: 100 mg Allergies Allergies Allergy/AdvReac Type Severity Reaction Status Date / Time pollen extracts Allergy Unknown unknown Verified 04/21/22 14:56 latex Allergy Rash Verified 10/31/22 18:30 Assessment & Plan Assessment & Plan (1) Bipolar disorder, now depressed: Status: Acute Code(s): F31.30 - Bipolar disorder, current episode depressed, mild or moderate severity, unspecified (2) Chronic back pain: Status: Acute Code(s): M54.9 - Dorsalgia, unspecified; G89.29 - Other chronic pain (3) Dementia: Status: Acute Code(s): F03.90 - Unspecified dementia, unspecified severity, without behavioral disturbance, psychotic disturbance, mood disturbance, and anxiety Plan 82 year old male with history hyperlipidemia, tubular adenoma colon, BPH, chronic normocytic anemia, 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 plan 03/19 continue tx. lidocaine patch for back pain prn Reason for continued inpatient stay Substantial Risk for: inability to function Time Spent With Patient Time: Total time managing care of this patient today ____ minutes.
[2023-03-19] MEDS: Lidocaine 4 % Patch ADH..PATCH 1 PATCH TRANSDERMA (16:51)
[2023-03-19 19:35] VITALS: BP 126/72; PULSE 72; RESP 16; TEMP 36.4; O2SAT 93
[2023-03-19] MEDS: traZODone HCL 100 MG TABLET PO (20:32)
[2023-03-19] MEDS: OLANZapine 7.5 MG TABLET PO (20:32)
[2023-03-20 09:00] VITALS: BP 97/56; PULSE 72; RESP 17; TEMP 36.5; O2SAT 94
[2023-03-20] MEDS: Memantine HCl 5 MG TABLET PO ×2 (09:03→20:39)
[2023-03-20] MEDS: lamoTRIgine 100 MG TABLET PO ×2 (09:03→20:39)
[2023-03-20] MEDS: Lidocaine 4 % Patch ADH..PATCH 1 PATCH TRANSDERMA (09:04)
--- NOTE | 2023-03-20 14:00 | HO.PSYCHPN ---
Subjective Subjective Date of Service: 03/20/23 Reason For Visit: F31.9, F43.25 Subjective Notes: Conditional Voluntary Interim History: The nursing staff reported the patient had been flat and withdrawn compliant with treatment, no changes in his mental status. He slept well last night. On interview the patient denies new symptoms, waiting for placement. Mental Status Exam Mental Status Exam Patient Appearance: Appropriate Patient Orientation: Person and Situation Level of Consciousness: Awake Patient Behavior: Guarded and Passive Mood Description: Withdrawn Affect Description: Constricted Patient Cognition Impaired: Yes Ability to Follow Directions: Good Speech Pattern: Clear Hallucinations: None Delusions: Ideas of Reference Thought Process: Distracted Thought Content: positive for [place] and positive for [place] Judgement: Fair Diagnostics Vital Signs (24Hr): Vital Signs - 24 hr 03/19/23 19:35 03/20/23 09:00 Temperature 97.5 F 97.7 F Pulse Rate 72 72 Respiratory Rate 16 17 Blood Pressure 126/72 97/56 L Pulse Oximetry 93 94 Oxygen Delivery Method Room Air Room Air BMI result Body Mass Index 27.0 Labs 02/15/23 06:42 02/15/23 06:43 Labs: Laboratory Results - last 48 hr 03/19/23 08:15 COVID-19 ([facility]) Negative COVID-19 Clin Com See Note Medications Medications Current Medications Al Hydroxide/Mg Hydroxide (Magnesium Hydrox/Alum Hydrox 30 Ml Oral.Susp) 30 ml PO Q6H PRN PRN Reason: Heartburn/Nausea Bisacodyl (Bisacodyl 5 Mg Tablet.Dr) 10 mg PO DAILY PRN PRN Reason: Constipation Last Admin: 01/30/23 09:13 Dose: 10 mg Hydroxyzine HCl (Hydroxyzine Hcl 25 Mg Tablet) 25 mg PO Q6H PRN PRN Reason: Anxiety Last Admin: 03/10/23 20:30 Dose: 25 mg Lamotrigine (Lamotrigine 100 Mg Tablet) 100 mg PO BID [facility] Last Admin: 03/20/23 09:03 Dose: 100 mg Lidocaine (Lidocaine 4 % Patch Adh..Patch) 1 patch TRANSDERMA DAILY [facility]; Protocol Last Admin: 03/20/23 09:04 Dose: 1 patch Magnesium Hydroxide (Milk Of Magnesia 30 Ml Oral.Susp) 30 ml PO DAILY PRN PRN Reason: Constipation Last Admin: 03/19/23 10:12 Dose: 30 ml Memantine (Memantine Hcl 5 Mg Tablet) 5 mg PO BID [facility] Last Admin: 03/20/23 09:03 Dose: 5 mg Olanzapine (Olanzapine 2.5 Mg Tablet) 2.5 mg PO TID PRN PRN Reason: agitation Last Admin: 03/10/23 20:30 Dose: 2.5 mg Olanzapine (Olanzapine 7.5 Mg Tablet) 7.5 mg PO BEDTIME [facility] Last Admin: 03/19/23 20:32 Dose: 7.5 mg Tramadol HCl (Tramadol Hcl 50 Mg Tablet) 50 mg PO Q4H PRN PRN Reason: Pain, Moderate(Pain Scale 4-6) Last Admin: 03/19/23 10:12 Dose: 50 mg Trazodone HCl (Trazodone Hcl 100 Mg Tablet) 100 mg PO BEDTIME [facility] Last Admin: 03/19/23 20:32 Dose: 100 mg Allergies Allergies Allergy/AdvReac Type Severity Reaction Status Date / Time pollen extracts Allergy Unknown unknown Verified 04/21/22 14:56 latex Allergy Rash Verified 10/31/22 18:30 Assessment & Plan Assessment & Plan (1) Bipolar disorder, now depressed: Status: Acute Code(s): F31.30 - Bipolar disorder, current episode depressed, mild or moderate severity, unspecified (2) Chronic back pain: Status: Acute Code(s): M54.9 - Dorsalgia, unspecified; G89.29 - Other chronic pain (3) Dementia: Status: Acute Code(s): F03.90 - Unspecified dementia, unspecified severity, without behavioral disturbance, psychotic disturbance, mood disturbance, and anxiety Plan 82 year old male with history hyperlipidemia, tubular adenoma colon, BPH, chronic normocytic anemia, 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 plan 1. Continue same treatment. 2. Waiting for placement Reason for continued inpatient stay Substantial Risk for: inability to function, rapid decompensation and med/psych decompensation Time Spent With Patient Time: Total time managing care of this patient today _20___ minutes.
[2023-03-20 18:00] VITALS: BP 117/66; PULSE 77; RESP 18; TEMP 36.8; O2SAT 94
[2023-03-20] MEDS: traMADoL HCL 50 MG TABLET PO (20:39)
[2023-03-20] MEDS: OLANZapine 7.5 MG TABLET PO (20:39)
[2023-03-20] MEDS: traZODone HCL 100 MG TABLET PO (20:39)
[2023-03-21 07:00] VITALS: BMI 27.3
[2023-03-21 08:27] VITALS: BP 128/64; PULSE 66; RESP 16; TEMP 36.4; O2SAT 94
[2023-03-21] MEDS: Memantine HCl 5 MG TABLET PO ×2 (08:28→21:16)
[2023-03-21] MEDS: lamoTRIgine 100 MG TABLET PO ×2 (08:28→21:16)
[2023-03-21] MEDS: Lidocaine 4 % Patch ADH..PATCH 1 PATCH TRANSDERMA (08:29)
--- NOTE | 2023-03-21 15:51 | P.PNPSI_ITS ---
Subjective Subjective Date of Service: 03/21/23 Reason For Visit: F31.9, F43.25 Subjective Notes: Conditional Voluntary Interim History: The nursing staff reported no changes in his mental status, he has been eating well and he has tested negative to COVID. On interview the patient remains pleasantly confused, easily redirectable, waiting for placement. Mental Status Exam Mental Status Exam Patient Appearance: Appropriate Patient Orientation: Person Level of Consciousness: Awake Patient Behavior: Guarded and Passive Mood Description: Withdrawn Affect Description: Constricted Patient Cognition Impaired: Yes Ability to Follow Directions: Good Speech Pattern: Clear Hallucinations: None Delusions: Not Present Thought Process: Distracted and Slowed Thinking Thought Content: positive for [place] and positive for Poverty of Content Judgement: Fair Diagnostics Vital Signs (24Hr): Vital Signs - 24 hr 03/20/23 18:00 03/21/23 08:27 Temperature 98.2 F 97.6 F Pulse Rate 77 66 Respiratory Rate 18 16 Blood Pressure 117/66 128/64 Pulse Oximetry 94 94 Oxygen Delivery Method Room Air Room Air BMI result Body Mass Index 27.3 Labs 02/15/23 06:42 02/15/23 06:43 Medications Medications Current Medications Al Hydroxide/Mg Hydroxide (Magnesium Hydrox/Alum Hydrox 30 Ml Oral.Susp) 30 ml PO Q6H PRN PRN Reason: Heartburn/Nausea Bisacodyl (Bisacodyl 5 Mg Tablet.Dr) 10 mg PO DAILY PRN PRN Reason: Constipation Last Admin: 01/30/23 09:13 Dose: 10 mg Hydroxyzine HCl (Hydroxyzine Hcl 25 Mg Tablet) 25 mg PO Q6H PRN PRN Reason: Anxiety Last Admin: 03/10/23 20:30 Dose: 25 mg Lamotrigine (Lamotrigine 100 Mg Tablet) 100 mg PO BID [facility] Last Admin: 03/21/23 08:28 Dose: 100 mg Lidocaine (Lidocaine 4 % Patch Adh..Patch) 1 patch TRANSDERMA DAILY [facility]; Protocol Last Admin: 03/21/23 08:29 Dose: 1 patch Magnesium Hydroxide (Milk Of Magnesia 30 Ml Oral.Susp) 30 ml PO DAILY PRN PRN Reason: Constipation Last Admin: 03/19/23 10:12 Dose: 30 ml Memantine (Memantine Hcl 5 Mg Tablet) 5 mg PO BID [facility] Last Admin: 03/21/23 08:28 Dose: 5 mg Olanzapine (Olanzapine 2.5 Mg Tablet) 2.5 mg PO TID PRN PRN Reason: agitation Last Admin: 03/10/23 20:30 Dose: 2.5 mg Olanzapine (Olanzapine 7.5 Mg Tablet) 7.5 mg PO BEDTIME [facility] Last Admin: 03/20/23 20:39 Dose: 7.5 mg Tramadol HCl (Tramadol Hcl 50 Mg Tablet) 50 mg PO Q4H PRN PRN Reason: Pain, Moderate(Pain Scale 4-6) Last Admin: 03/20/23 20:39 Dose: 50 mg Trazodone HCl (Trazodone Hcl 100 Mg Tablet) 100 mg PO BEDTIME [facility] Last Admin: 03/20/23 20:39 Dose: 100 mg Allergies Allergies Allergy/AdvReac Type Severity Reaction Status Date / Time pollen extracts Allergy Unknown unknown Verified 04/21/22 14:56 latex Allergy Rash Verified 10/31/22 18:30 Assessment & Plan Assessment & Plan (1) Bipolar disorder, now depressed: Status: Acute Code(s): F31.30 - Bipolar disorder, current episode depressed, mild or moderate severity, unspecified (2) Chronic back pain: Status: Acute Code(s): M54.9 - Dorsalgia, unspecified; G89.29 - Other chronic pain (3) Dementia: Status: Acute Code(s): F03.90 - Unspecified dementia, unspecified severity, without behavioral disturbance, psychotic disturbance, mood disturbance, and anxiety Plan 82 year old male with history hyperlipidemia, tubular adenoma colon, BPH, chronic normocytic anemia, 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 plan 1. Continue same treatment. 2. Waiting for placement Reason for continued inpatient stay Substantial Risk for: inability to function, rapid decompensation and med/psych decompensation Time Spent With Patient Time: Total time managing care of this patient today __20__ minutes.
[2023-03-21 18:00] VITALS: BP 112/56; PULSE 66; RESP 18; TEMP 36.6; O2SAT 94
[2023-03-21] MEDS: OLANZapine 7.5 MG TABLET PO (21:16)
[2023-03-21] MEDS: hydrOXYzine HCL 25 MG TABLET PO (21:16)
[2023-03-21] MEDS: traZODone HCL 100 MG TABLET PO (21:16)
[2023-03-22 08:38] VITALS: BP 131/71; PULSE 73; RESP 18; TEMP 36.6; O2SAT 97
[2023-03-22] MEDS: lamoTRIgine 100 MG TABLET PO ×2 (09:54→20:32)
[2023-03-22] MEDS: Memantine HCl 5 MG TABLET PO ×2 (09:54→20:31)
[2023-03-22] MEDS: Artificial Tears 15 ML DROPS 1 DROP EYE-BOTH (09:55)
[2023-03-22] MEDS: Lidocaine 4 % Patch ADH..PATCH 1 PATCH TRANSDERMA (09:55)
[2023-03-22 11:59] LABS: COVID-19 Test Negative (Negative); IDNOW Serial# 9DB6401D
[2023-03-22] MEDS: Erythromycin Base 0.5% Oph Oin 1 GM TUBE 1 CM EYE-BOTH ×2 (15:52→20:31)
[2023-03-22 19:40] VITALS: BP 137/64; PULSE 65; RESP 16; TEMP 35.9; O2SAT 96
[2023-03-22] MEDS: traZODone HCL 100 MG TABLET PO (20:32)
[2023-03-22] MEDS: OLANZapine 7.5 MG TABLET PO (20:32)
--- NOTE | 2023-03-22 23:21 | P.PNPSI_ITS ---
Subjective Subjective Date of Service: 03/22/23 Reason For Visit: F31.9, F43.25 Subjective Notes: Section 8 Interim History: Pt slept through the night. Eye with some drainage, red, reports painful, not itchy. erythromycin ointment ordered. seems more bacterial than allergic. He is covid neg. takes meds as prescribed. Review of Systems Review of Systems Back pain that is chronic in nature, no incontinence urinary or donita, no fever or chills, and weakness in the legs Yes all other systems are reviewed and are negative and Unobtainable due to mental status Mental Status Exam Mental Status Exam Patient Appearance: Appropriate Patient Orientation: Person Level of Consciousness: Awake Patient Behavior: Guarded and Passive Mood Description: Withdrawn Affect Description: Constricted Patient Cognition Impaired: Yes Ability to Follow Directions: Good Speech Pattern: Clear Diagnostics Vital Signs (24Hr): Vital Signs - 24 hr 03/22/23 08:38 03/22/23 19:40 Temperature 97.9 F 96.7 F L Pulse Rate 73 65 Respiratory Rate 18 16 Blood Pressure 131/71 137/64 Pulse Oximetry 97 96 Oxygen Delivery Method Room Air Room Air BMI result Body Mass Index 27.3 Labs 02/15/23 06:42 02/15/23 06:43 Labs: Laboratory Results - last 48 hr 03/22/23 11:00 COVID-19 ([facility]) Negative COVID-19 Clin Com See Note Medications Medications Current Medications Al Hydroxide/Mg Hydroxide (Magnesium Hydrox/Alum Hydrox 30 Ml Oral.Susp) 30 ml PO Q6H PRN PRN Reason: Heartburn/Nausea Artificial Tears (Artificial Tears 15 Ml Drops) 1 drop EYE-BOTH Q4H PRN PRN Reason: Dry Eyes Last Admin: 03/22/23 09:55 Dose: 1 drop Bisacodyl (Bisacodyl 5 Mg Tablet.Dr) 10 mg PO DAILY PRN PRN Reason: Constipation Last Admin: 01/30/23 09:13 Dose: 10 mg Erythromycin (Erythromycin Base 0.5% Oph Oin 1 Gm Tube) 1 cm EYE-BOTH QID [facility] Last Admin: 03/22/23 20:31 Dose: 1 cm Hydroxyzine HCl (Hydroxyzine Hcl 25 Mg Tablet) 25 mg PO Q6H PRN PRN Reason: Anxiety Last Admin: 03/21/23 21:16 Dose: 25 mg Lamotrigine (Lamotrigine 100 Mg Tablet) 100 mg PO BID [facility] Last Admin: 03/22/23 20:32 Dose: 100 mg Lidocaine (Lidocaine 4 % Patch Adh..Patch) 1 patch TRANSDERMA DAILY [facility]; Protocol Last Admin: 03/22/23 09:55 Dose: 1 patch Magnesium Hydroxide (Milk Of Magnesia 30 Ml Oral.Susp) 30 ml PO DAILY PRN PRN Reason: Constipation Last Admin: 03/19/23 10:12 Dose: 30 ml Memantine (Memantine Hcl 5 Mg Tablet) 5 mg PO BID [facility] Last Admin: 03/22/23 20:31 Dose: 5 mg Olanzapine (Olanzapine 2.5 Mg Tablet) 2.5 mg PO TID PRN PRN Reason: agitation Last Admin: 03/10/23 20:30 Dose: 2.5 mg Olanzapine (Olanzapine 7.5 Mg Tablet) 7.5 mg PO BEDTIME [facility] Last Admin: 03/22/23 20:32 Dose: 7.5 mg Tramadol HCl (Tramadol Hcl 50 Mg Tablet) 50 mg PO Q4H PRN PRN Reason: Pain, Moderate(Pain Scale 4-6) Trazodone HCl (Trazodone Hcl 100 Mg Tablet) 100 mg PO BEDTIME [facility] Last Admin: 03/22/23 20:32 Dose: 100 mg Allergies Allergies Allergy/AdvReac Type Severity Reaction Status Date / Time pollen extracts Allergy Unknown unknown Verified 04/21/22 14:56 latex Allergy Rash Verified 10/31/22 18:30 Assessment & Plan Assessment & Plan (1) Bipolar disorder, now depressed: Status: Acute Code(s): F31.30 - Bipolar disorder, current episode depressed, mild or moderate severity, unspecified (2) Chronic back pain: Status: Acute Code(s): M54.9 - Dorsalgia, unspecified; G89.29 - Other chronic pain (3) Dementia: Status: Acute Code(s): F03.90 - Unspecified dementia, unspecified severity, without behavioral disturbance, psychotic disturbance, mood disturbance, and anxiety Plan 82 year old male with history hyperlipidemia, tubular adenoma colon, BPH, chronic normocytic anemia, 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 plan 1. Continue same treatment. 2. Waiting for placement Reason for continued inpatient stay Substantial Risk for: inability to function Time Spent With Patient Time: Total time managing care of this patient today ____ minutes.
[2023-03-23] MEDS: hydrOXYzine HCL 25 MG TABLET PO (00:19)
[2023-03-23] MEDS: Artificial Tears 15 ML DROPS 1 DROP EYE-BOTH ×2 (00:19→15:46)
[2023-03-23 08:05] VITALS: BP 139/85; PULSE 70; RESP 18; TEMP 36.2; O2SAT 95
[2023-03-23] MEDS: Memantine HCl 5 MG TABLET PO ×2 (09:01→20:30)
[2023-03-23] MEDS: Erythromycin Base 0.5% Oph Oin 1 GM TUBE 1 CM EYE-BOTH ×4 (09:01→20:31)
[2023-03-23] MEDS: Lidocaine 4 % Patch ADH..PATCH 1 PATCH TRANSDERMA (09:01)
[2023-03-23] MEDS: lamoTRIgine 100 MG TABLET PO ×2 (09:01→20:30)
--- NOTE | 2023-03-23 11:00 | HO.PSYCHPN ---
Subjective Subjective Date of Service: 03/23/23 Reason For Visit: F31.9, F43.25 Interim History: wandering the unit, serially flagging down MD and c/o contacts or glass in his eye. MD repeatedly reassures him he has an eye infection and it may feel strange but he has antibx ointment there and that is all it is at the moment. no other complaints or requests. per staff, eye infection. exit-seeking. confused but pleasant. Mental Status Exam Mental Status Exam Patient Appearance: Appropriate Patient Orientation: Person Level of Consciousness: Awake Patient Behavior: Guarded and Passive Mood Description: Withdrawn Affect Description: Constricted Patient Cognition Impaired: Yes Ability to Follow Directions: Good Speech Pattern: Clear Hallucinations: None Delusions: Not Present Thought Process: Distracted and Slowed Thinking Thought Content: positive for [place] and positive for Poverty of Content Judgement: Fair Diagnostics Vital Signs (24Hr): Vital Signs - 24 hr 03/22/23 19:40 03/23/23 08:05 Temperature 96.7 F L 97.2 F Pulse Rate 65 70 Respiratory Rate 16 18 Blood Pressure 137/64 139/85 Pulse Oximetry 96 95 Oxygen Delivery Method Room Air Room Air BMI result Body Mass Index 27.3 Labs 02/15/23 06:42 02/15/23 06:43 Labs: Laboratory Results - last 48 hr 03/22/23 11:00 COVID-19 ([facility]) Negative COVID-19 Clin Com See Note Medications Medications Current Medications Al Hydroxide/Mg Hydroxide (Magnesium Hydrox/Alum Hydrox 30 Ml Oral.Susp) 30 ml PO Q6H PRN PRN Reason: Heartburn/Nausea Artificial Tears (Artificial Tears 15 Ml Drops) 1 drop EYE-BOTH Q4H PRN PRN Reason: Dry Eyes Last Admin: 03/23/23 00:19 Dose: 1 drop Bisacodyl (Bisacodyl 5 Mg Tablet.Dr) 10 mg PO DAILY PRN PRN Reason: Constipation Last Admin: 01/30/23 09:13 Dose: 10 mg Erythromycin (Erythromycin Base 0.5% Oph Oin 1 Gm Tube) 1 cm EYE-BOTH QID [facility] Last Admin: 03/23/23 09:01 Dose: 1 cm Hydroxyzine HCl (Hydroxyzine Hcl 25 Mg Tablet) 25 mg PO Q6H PRN PRN Reason: Anxiety Last Admin: 03/23/23 00:19 Dose: 25 mg Lamotrigine (Lamotrigine 100 Mg Tablet) 100 mg PO BID [facility] Last Admin: 03/23/23 09:01 Dose: 100 mg Lidocaine (Lidocaine 4 % Patch Adh..Patch) 1 patch TRANSDERMA DAILY [facility]; Protocol Last Admin: 03/23/23 09:01 Dose: 1 patch Magnesium Hydroxide (Milk Of Magnesia 30 Ml Oral.Susp) 30 ml PO DAILY PRN PRN Reason: Constipation Last Admin: 03/19/23 10:12 Dose: 30 ml Memantine (Memantine Hcl 5 Mg Tablet) 5 mg PO BID [facility] Last Admin: 03/23/23 09:01 Dose: 5 mg Olanzapine (Olanzapine 2.5 Mg Tablet) 2.5 mg PO TID PRN PRN Reason: agitation Last Admin: 03/10/23 20:30 Dose: 2.5 mg Olanzapine (Olanzapine 7.5 Mg Tablet) 7.5 mg PO BEDTIME [facility] Last Admin: 03/22/23 20:32 Dose: 7.5 mg Tramadol HCl (Tramadol Hcl 50 Mg Tablet) 50 mg PO Q4H PRN PRN Reason: Pain, Moderate(Pain Scale 4-6) Trazodone HCl (Trazodone Hcl 100 Mg Tablet) 100 mg PO BEDTIME [facility] Last Admin: 03/22/23 20:32 Dose: 100 mg Allergies Allergies Allergy/AdvReac Type Severity Reaction Status Date / Time pollen extracts Allergy Unknown unknown Verified 04/21/22 14:56 latex Allergy Rash Verified 10/31/22 18:30 Assessment & Plan Assessment & Plan (1) Bipolar disorder, now depressed: Status: Acute Code(s): F31.30 - Bipolar disorder, current episode depressed, mild or moderate severity, unspecified (2) Chronic back pain: Status: Acute Code(s): M54.9 - Dorsalgia, unspecified; G89.29 - Other chronic pain (3) Dementia: Status: Acute Code(s): F03.90 - Unspecified dementia, unspecified severity, without behavioral disturbance, psychotic disturbance, mood disturbance, and anxiety Plan 82 year old male with history hyperlipidemia, tubular adenoma colon, BPH, chronic normocytic anemia, 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 plan 1. Continue same treatment. 2. Waiting for placement 03/23: continue current mgmt. conjunctivitis. Reason for continued inpatient stay Substantial Risk for: inability to function and rapid decompensation Time Spent With Patient Time: Total time managing care of this patient today ____ minutes.
--- NOTE | 2023-03-23 16:56 | PC.NURSE ---
Ilotycin administered to both eyes as ordered. Scant amount of yellow mucous removed from right eye. Artificial Tears applied x1 with good effect for eye itch.
[2023-03-23 20:29] VITALS: BP 133/61; PULSE 70; RESP 16; TEMP 36.6; O2SAT 95
[2023-03-23] MEDS: OLANZapine 7.5 MG TABLET PO (20:30)
[2023-03-23] MEDS: traZODone HCL 100 MG TABLET PO (20:31)
[2023-03-24] MEDS: Artificial Tears 15 ML DROPS 1 DROP EYE-BOTH (01:42)
[2023-03-24] MEDS: hydrOXYzine HCL 25 MG TABLET PO (01:42)
[2023-03-24] MEDS: traMADoL HCL 50 MG TABLET PO (01:42)
[2023-03-24 07:45] VITALS: BP 125/72; PULSE 78; RESP 18; TEMP 36.8; O2SAT 95
[2023-03-24] MEDS: lamoTRIgine 100 MG TABLET PO ×2 (08:41→21:29)
[2023-03-24] MEDS: Memantine HCl 5 MG TABLET PO ×2 (08:41→21:27)
[2023-03-24] MEDS: Erythromycin Base 0.5% Oph Oin 1 GM TUBE 1 CM EYE-BOTH ×3 (08:41→21:29)
[2023-03-24] MEDS: Lidocaine 4 % Patch ADH..PATCH 1 PATCH TRANSDERMA (08:41)
--- NOTE | 2023-03-24 10:55 | P.PNPSI_ITS ---
Subjective Subjective Date of Service: 03/24/23 Reason For Visit: F31.9, F43.25 Interim History: calm, cooperative. no mention of any foreign object in his eye this morning. no complaints or requests. per staff, eye infection appears to be only marginally improving in terms of pus output, but pt no longer c/o pain. otherwise stable and without complaints. Mental Status Exam Mental Status Exam Patient Appearance: Appropriate Patient Orientation: Person Level of Consciousness: Awake Patient Behavior: Guarded and Passive Mood Description: Withdrawn Affect Description: Constricted Patient Cognition Impaired: Yes Ability to Follow Directions: Good Speech Pattern: Clear Hallucinations: None Delusions: Not Present Thought Process: Distracted and Slowed Thinking Thought Content: positive for [place] and positive for Poverty of Content Judgement: Fair Diagnostics Vital Signs (24Hr): Vital Signs - 24 hr 03/23/23 20:29 03/24/23 07:45 Temperature 97.8 F 98.3 F Pulse Rate 70 78 Respiratory Rate 16 18 Blood Pressure 133/61 125/72 Pulse Oximetry 95 95 Oxygen Delivery Method Room Air Room Air BMI result Body Mass Index 27.3 Labs 02/15/23 06:42 02/15/23 06:43 Labs: Laboratory Results - last 48 hr 03/22/23 11:00 COVID-19 ([facility]) Negative COVID-19 Clin Com See Note Medications Medications Current Medications Al Hydroxide/Mg Hydroxide (Magnesium Hydrox/Alum Hydrox 30 Ml Oral.Susp) 30 ml PO Q6H PRN PRN Reason: Heartburn/Nausea Artificial Tears (Artificial Tears 15 Ml Drops) 1 drop EYE-BOTH Q4H PRN PRN Reason: Dry Eyes Last Admin: 03/24/23 01:42 Dose: 1 drop Bisacodyl (Bisacodyl 5 Mg Tablet.Dr) 10 mg PO DAILY PRN PRN Reason: Constipation Last Admin: 01/30/23 09:13 Dose: 10 mg Erythromycin (Erythromycin Base 0.5% Oph Oin 1 Gm Tube) 1 cm EYE-BOTH QID [facility] Last Admin: 03/24/23 08:41 Dose: 1 cm Hydroxyzine HCl (Hydroxyzine Hcl 25 Mg Tablet) 25 mg PO Q6H PRN PRN Reason: Anxiety Last Admin: 03/24/23 01:42 Dose: 25 mg Lamotrigine (Lamotrigine 100 Mg Tablet) 100 mg PO BID [facility] Last Admin: 03/24/23 08:41 Dose: 100 mg Lidocaine (Lidocaine 4 % Patch Adh..Patch) 1 patch TRANSDERMA DAILY [facility]; Protocol Last Admin: 03/24/23 08:41 Dose: 1 patch Magnesium Hydroxide (Milk Of Magnesia 30 Ml Oral.Susp) 30 ml PO DAILY PRN PRN Reason: Constipation Last Admin: 03/19/23 10:12 Dose: 30 ml Memantine (Memantine Hcl 5 Mg Tablet) 5 mg PO BID [facility] Last Admin: 03/24/23 08:41 Dose: 5 mg Olanzapine (Olanzapine 2.5 Mg Tablet) 2.5 mg PO TID PRN PRN Reason: agitation Last Admin: 03/10/23 20:30 Dose: 2.5 mg Olanzapine (Olanzapine 7.5 Mg Tablet) 7.5 mg PO BEDTIME [facility] Last Admin: 03/23/23 20:30 Dose: 7.5 mg Tramadol HCl (Tramadol Hcl 50 Mg Tablet) 50 mg PO Q4H PRN PRN Reason: Pain, Moderate(Pain Scale 4-6) Last Admin: 03/24/23 01:42 Dose: 50 mg Trazodone HCl (Trazodone Hcl 100 Mg Tablet) 100 mg PO BEDTIME [facility] Last Admin: 03/23/23 20:31 Dose: 100 mg Allergies Allergies Allergy/AdvReac Type Severity Reaction Status Date / Time pollen extracts Allergy Unknown unknown Verified 04/21/22 14:56 latex Allergy Rash Verified 10/31/22 18:30 Assessment & Plan Assessment & Plan (1) Bipolar disorder, now depressed: Status: Acute Code(s): F31.30 - Bipolar disorder, current episode depressed, mild or moderate severity, unspecified (2) Chronic back pain: Status: Acute Code(s): M54.9 - Dorsalgia, unspecified; G89.29 - Other chronic pain (3) Dementia: Status: Acute Code(s): F03.90 - Unspecified dementia, unspecified severity, without behavioral disturbance, psychotic disturbance, mood disturbance, and anxiety Plan 82 year old male with history hyperlipidemia, tubular adenoma colon, BPH, chronic normocytic anemia, 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 plan 1. Continue same treatment. 2. Waiting for placement 03/24: eye infection no longer painful, still producing pus. psychiatrically stable. continue current mgmt. Reason for continued inpatient stay Substantial Risk for: inability to function Time Spent With Patient Time: Total time managing care of this patient today ____ minutes.
[2023-03-24 15:59] LABS: COVID-19 Test Positive (Negative); IDNOW Serial# 08D9AD1C
--- NOTE | 2023-03-24 16:12 | PC.NURSE ---
Patient swabbed for Covid due to decreased energy and runny nose, positve Covid result today.
[2023-03-24 17:17] VITALS: BP 109/60; PULSE 73; RESP 18; TEMP 37.4; O2SAT 93
[2023-03-24 18:00] VITALS: BP 146/84; PULSE 72; RESP 18; TEMP 36.8; O2SAT 94
[2023-03-24] MEDS: Acetaminophen 325 MG TABLET 650 MG PO (21:27)
[2023-03-24] MEDS: traZODone HCL 100 MG TABLET PO (21:27)
[2023-03-24] MEDS: OLANZapine 7.5 MG TABLET PO (21:29)
[2023-03-25 09:08] VITALS: BP 107/72; PULSE 85; RESP 20; TEMP 37.1; O2SAT 93
[2023-03-25] MEDS: lamoTRIgine 100 MG TABLET PO ×2 (09:11→21:24)
[2023-03-25] MEDS: Memantine HCl 5 MG TABLET PO ×2 (09:11→21:24)
[2023-03-25] MEDS: Lidocaine 4 % Patch ADH..PATCH 1 PATCH TRANSDERMA (09:12)
[2023-03-25] MEDS: Acetaminophen 325 MG TABLET 650 MG PO (09:12)
[2023-03-25] MEDS: Erythromycin Base 0.5% Oph Oin 1 GM TUBE 1 CM EYE-BOTH (09:16)
--- NOTE | 2023-03-25 11:04 | P.PNPSI_ITS ---
Subjective Subjective Date of Service: 03/25/23 Reason For Visit: F31.9, F43.25 Interim History: asleep on his bed, snoring softly. observed in milieu as well. no change in presentation. per staff, COVID +. fatigued, confused. slept 5-6 hours. Mental Status Exam Mental Status Exam Patient Appearance: Appropriate Patient Orientation: Person Level of Consciousness: Drowsy Patient Behavior: Guarded and Passive Affect Description: Constricted Patient Cognition Impaired: Yes Hallucinations: None Delusions: Not Present Judgement: Fair Diagnostics Vital Signs (24Hr): Vital Signs - 24 hr 03/24/23 17:17 03/24/23 18:00 03/25/23 09:08 Temperature 99.3 F 98.3 F 98.7 F Pulse Rate 73 72 85 Respiratory Rate 18 18 20 Blood Pressure 109/60 146/84 H 107/72 Pulse Oximetry 93 94 93 Oxygen Delivery Method Room Air Room Air Room Air BMI result Body Mass Index 27.3 Labs 02/15/23 06:42 02/15/23 06:43 Labs: Laboratory Results - last 48 hr 03/24/23 15:30 COVID-19 ([facility]) Positive A COVID-19 Clin Com See Note Medications Medications Current Medications Acetaminophen (Acetaminophen 325 Mg Tablet) 650 mg PO Q4H PRN PRN Reason: Fever Last Admin: 03/25/23 09:12 Dose: 650 mg Al Hydroxide/Mg Hydroxide (Magnesium Hydrox/Alum Hydrox 30 Ml Oral.Susp) 30 ml PO Q6H PRN PRN Reason: Heartburn/Nausea Artificial Tears (Artificial Tears 15 Ml Drops) 1 drop EYE-BOTH Q4H PRN PRN Reason: Dry Eyes Last Admin: 03/24/23 01:42 Dose: 1 drop Bisacodyl (Bisacodyl 5 Mg Tablet.Dr) 10 mg PO DAILY PRN PRN Reason: Constipation Last Admin: 01/30/23 09:13 Dose: 10 mg Erythromycin (Erythromycin Base 0.5% Oph Oin 1 Gm Tube) 1 cm EYE-BOTH QID [facility] Last Admin: 03/25/23 09:16 Dose: 1 cm Hydroxyzine HCl (Hydroxyzine Hcl 25 Mg Tablet) 25 mg PO Q6H PRN PRN Reason: Anxiety Last Admin: 03/24/23 01:42 Dose: 25 mg Lamotrigine (Lamotrigine 100 Mg Tablet) 100 mg PO BID [facility] Last Admin: 03/25/23 09:11 Dose: 100 mg Lidocaine (Lidocaine 4 % Patch Adh..Patch) 1 patch TRANSDERMA DAILY [facility]; Protocol Last Admin: 03/25/23 09:12 Dose: 1 patch Magnesium Hydroxide (Milk Of Magnesia 30 Ml Oral.Susp) 30 ml PO DAILY PRN PRN Reason: Constipation Last Admin: 03/19/23 10:12 Dose: 30 ml Memantine (Memantine Hcl 5 Mg Tablet) 5 mg PO BID [facility] Last Admin: 03/25/23 09:11 Dose: 5 mg Olanzapine (Olanzapine 2.5 Mg Tablet) 2.5 mg PO TID PRN PRN Reason: agitation Last Admin: 03/10/23 20:30 Dose: 2.5 mg Olanzapine (Olanzapine 7.5 Mg Tablet) 7.5 mg PO BEDTIME [facility] Last Admin: 03/24/23 21:29 Dose: 7.5 mg Tramadol HCl (Tramadol Hcl 50 Mg Tablet) 50 mg PO Q4H PRN PRN Reason: Pain, Moderate(Pain Scale 4-6) Last Admin: 03/24/23 01:42 Dose: 50 mg Trazodone HCl (Trazodone Hcl 100 Mg Tablet) 100 mg PO BEDTIME [facility] Last Admin: 03/24/23 21:27 Dose: 100 mg Allergies Allergies Allergy/AdvReac Type Severity Reaction Status Date / Time pollen extracts Allergy Unknown unknown Verified 04/21/22 14:56 latex Allergy Rash Verified 10/31/22 18:30 Assessment & Plan Assessment & Plan (1) Bipolar disorder, now depressed: Status: Acute Code(s): F31.30 - Bipolar disorder, current episode depressed, mild or moderate severity, unspecified (2) Chronic back pain: Status: Acute Code(s): M54.9 - Dorsalgia, unspecified; G89.29 - Other chronic pain (3) Dementia: Status: Acute Code(s): F03.90 - Unspecified dementia, unspecified severity, without behavioral disturbance, psychotic disturbance, mood disturbance, and anxiety Plan 82 year old male with history hyperlipidemia, tubular adenoma colon, BPH, chronic normocytic anemia, 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 plan 1. Continue same treatment. 2. Waiting for placement 03/24: eye infection no longer painful, still producing pus. psychiatrically stable. continue current mgmt. 03/25: COVID +. fatigued, confused. resting in bed. continue current mgmt. Reason for continued inpatient stay Substantial Risk for: inability to function and med/psych decompensation Time Spent With Patient Time: Total time managing care of this patient today ____ minutes.
[2023-03-25 18:00] VITALS: BP 112/69; PULSE 72; RESP 18; TEMP 36.6; O2SAT 96
[2023-03-25] MEDS: OLANZapine 7.5 MG TABLET PO (21:23)
[2023-03-25] MEDS: traZODone HCL 100 MG TABLET PO (21:24)
[2023-03-26 08:20] VITALS: BP 104/61; PULSE 69; RESP 18; TEMP 36.8; O2SAT 94
[2023-03-26] MEDS: traMADoL HCL 50 MG TABLET PO (08:25)
[2023-03-26] MEDS: Memantine HCl 5 MG TABLET PO ×2 (08:26→21:11)
[2023-03-26] MEDS: lamoTRIgine 100 MG TABLET PO ×2 (08:26→21:11)
[2023-03-26] MEDS: Lidocaine 4 % Patch ADH..PATCH 1 PATCH TRANSDERMA (08:26)
--- NOTE | 2023-03-26 09:36 | HO.PSYCHPN ---
Subjective Subjective Date of Service: 03/26/23 Reason For Visit: F31.9, F43.25 Subjective Notes: Section 8 Interim History: Pt in room. He slept most of the night. He reports back pain. He reports eye pain is almost gone. No purulent drainage noted. VS stable, o2sat 94% on RA. Review of Systems Review of Systems Back pain that is chronic in nature, no incontinence urinary or donita, no fever or chills, and weakness in the legs Yes all other systems are reviewed and are negative and Unobtainable due to mental status Mental Status Exam Mental Status Exam Patient Appearance: Appropriate Patient Orientation: Person Level of Consciousness: Drowsy Patient Behavior: Guarded and Passive Mood Description: Withdrawn Affect Description: Constricted Patient Cognition Impaired: Yes Ability to Follow Directions: Good Speech Pattern: Clear Diagnostics Vital Signs (24Hr): Vital Signs - 24 hr 03/25/23 18:00 03/26/23 08:20 Temperature 97.9 F 98.2 F Pulse Rate 72 69 Respiratory Rate 18 18 Blood Pressure 112/69 104/61 Pulse Oximetry 96 94 Oxygen Delivery Method Room Air Room Air BMI result Body Mass Index 27.3 Labs 02/15/23 06:42 02/15/23 06:43 Labs: Laboratory Results - last 48 hr 03/24/23 15:30 COVID-19 ([facility]) Positive A COVID-19 Clin Com See Note Medications Medications Current Medications Acetaminophen (Acetaminophen 325 Mg Tablet) 650 mg PO Q4H PRN PRN Reason: Fever Last Admin: 03/25/23 09:12 Dose: 650 mg Al Hydroxide/Mg Hydroxide (Magnesium Hydrox/Alum Hydrox 30 Ml Oral.Susp) 30 ml PO Q6H PRN PRN Reason: Heartburn/Nausea Artificial Tears (Artificial Tears 15 Ml Drops) 1 drop EYE-BOTH Q4H PRN PRN Reason: Dry Eyes Last Admin: 03/24/23 01:42 Dose: 1 drop Bisacodyl (Bisacodyl 5 Mg Tablet.) 10 mg PO DAILY PRN PRN Reason: Constipation Last Admin: 01/30/23 09:13 Dose: 10 mg Erythromycin (Erythromycin Base 0.5% Oph Oin 1 Gm Tube) 1 cm EYE-BOTH QID [facility] Last Admin: 03/25/23 21:25 Dose: Not Given Hydroxyzine HCl (Hydroxyzine Hcl 25 Mg Tablet) 25 mg PO Q6H PRN PRN Reason: Anxiety Last Admin: 03/24/23 01:42 Dose: 25 mg Lamotrigine (Lamotrigine 100 Mg Tablet) 100 mg PO BID [facility] Last Admin: 03/26/23 08:26 Dose: 100 mg Lidocaine (Lidocaine 4 % Patch Adh..Patch) 1 patch TRANSDERMA DAILY [facility]; Protocol Last Admin: 03/26/23 08:26 Dose: 1 patch Magnesium Hydroxide (Milk Of Magnesia 30 Ml Oral.Susp) 30 ml PO DAILY PRN PRN Reason: Constipation Last Admin: 03/19/23 10:12 Dose: 30 ml Memantine (Memantine Hcl 5 Mg Tablet) 5 mg PO BID [facility] Last Admin: 03/26/23 08:26 Dose: 5 mg Olanzapine (Olanzapine 2.5 Mg Tablet) 2.5 mg PO TID PRN PRN Reason: agitation Last Admin: 03/10/23 20:30 Dose: 2.5 mg Olanzapine (Olanzapine 7.5 Mg Tablet) 7.5 mg PO BEDTIME [facility] Last Admin: 03/25/23 21:23 Dose: 7.5 mg Tramadol HCl (Tramadol Hcl 50 Mg Tablet) 50 mg PO Q4H PRN PRN Reason: Pain, Moderate(Pain Scale 4-6) Last Admin: 03/26/23 08:25 Dose: 50 mg Trazodone HCl (Trazodone Hcl 100 Mg Tablet) 100 mg PO BEDTIME [facility] Last Admin: 03/25/23 21:24 Dose: 100 mg Allergies Allergies Allergy/AdvReac Type Severity Reaction Status Date / Time pollen extracts Allergy Unknown unknown Verified 04/21/22 14:56 latex Allergy Rash Verified 10/31/22 18:30 Assessment & Plan Assessment & Plan (1) Bipolar disorder, now depressed: Status: Acute Code(s): F31.30 - Bipolar disorder, current episode depressed, mild or moderate severity, unspecified (2) Chronic back pain: Status: Acute Code(s): M54.9 - Dorsalgia, unspecified; G89.29 - Other chronic pain (3) Dementia: Status: Acute Code(s): F03.90 - Unspecified dementia, unspecified severity, without behavioral disturbance, psychotic disturbance, mood disturbance, and anxiety Plan 82 year old male with history hyperlipidemia, tubular adenoma colon, BPH, chronic normocytic anemia, 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 plan 1. Continue same treatment. 2. Waiting for placement 03/24: eye infection no longer painful, still producing pus. psychiatrically stable. continue current mgmt. 03/25: COVID +. fatigued, confused. resting in bed. continue current mgmt. 03/26 continue tx. Reason for continued inpatient stay Substantial Risk for: inability to function Time Spent With Patient Time: Total time managing care of this patient today ____ minutes.
[2023-03-26 18:00] VITALS: BP 101/57; PULSE 72; RESP 18; TEMP 36.2; O2SAT 94
[2023-03-26] MEDS: OLANZapine 7.5 MG TABLET PO (21:11)
[2023-03-26] MEDS: traZODone HCL 100 MG TABLET PO (21:12)
[2023-03-26] MEDS: Erythromycin Base 0.5% Oph Oin 1 GM TUBE 1 CM EYE-BOTH (21:12)
[2023-03-27 07:30] VITALS: BP 94/58; PULSE 72; RESP 18; TEMP 36.1; O2SAT 93
[2023-03-27] MEDS: Memantine HCl 5 MG TABLET PO ×2 (08:28→20:34)
[2023-03-27] MEDS: lamoTRIgine 100 MG TABLET PO ×2 (08:28→20:34)
[2023-03-27] MEDS: Lidocaine 4 % Patch ADH..PATCH 1 PATCH TRANSDERMA (08:28)
--- NOTE | 2023-03-27 16:27 | HO.PSYCHPN ---
Subjective Subjective Date of Service: 03/27/23 Reason For Visit: F31.9, F43.25 Subjective Notes: Conditional Voluntary Interim History: The nursing staff reported patient has been pleasant, he tested positive to COVID. On interview the patient denies new symptoms, waiting for placement. Mental Status Exam Mental Status Exam Patient Appearance: Appropriate Patient Orientation: Person Level of Consciousness: Awake and Appropriate Patient Behavior: Guarded and Passive Mood Description: Withdrawn Affect Description: Constricted Patient Cognition Impaired: Yes Ability to Follow Directions: Good Speech Pattern: Clear Hallucinations: None Delusions: Paranoid Ideation Thought Process: Distracted Thought Content: positive for [place] and positive for Poverty of Content Judgement: Poor Diagnostics Vital Signs (24Hr): Vital Signs - 24 hr 03/26/23 18:00 03/27/23 07:30 Temperature 97.2 F 97.0 F Pulse Rate 72 72 Respiratory Rate 18 18 Blood Pressure 101/57 L 94/58 L Pulse Oximetry 94 93 Oxygen Delivery Method Room Air BMI result Body Mass Index 27.3 Labs 02/15/23 06:42 02/15/23 06:43 Medications Medications Current Medications Acetaminophen (Acetaminophen 325 Mg Tablet) 650 mg PO Q4H PRN PRN Reason: Fever Last Admin: 03/25/23 09:12 Dose: 650 mg Al Hydroxide/Mg Hydroxide (Magnesium Hydrox/Alum Hydrox 30 Ml Oral.Susp) 30 ml PO Q6H PRN PRN Reason: Heartburn/Nausea Artificial Tears (Artificial Tears 15 Ml Drops) 1 drop EYE-BOTH Q4H PRN PRN Reason: Dry Eyes Last Admin: 03/24/23 01:42 Dose: 1 drop Bisacodyl (Bisacodyl 5 Mg Tablet.Dr) 10 mg PO DAILY PRN PRN Reason: Constipation Last Admin: 01/30/23 09:13 Dose: 10 mg Erythromycin (Erythromycin Base 0.5% Oph Oin 1 Gm Tube) 1 cm EYE-BOTH QID [facility] Last Admin: 03/27/23 12:07 Dose: Not Given Hydroxyzine HCl (Hydroxyzine Hcl 25 Mg Tablet) 25 mg PO Q6H PRN PRN Reason: Anxiety Last Admin: 03/24/23 01:42 Dose: 25 mg Lamotrigine (Lamotrigine 100 Mg Tablet) 100 mg PO BID [facility] Last Admin: 03/27/23 08:28 Dose: 100 mg Lidocaine (Lidocaine 4 % Patch Adh..Patch) 1 patch TRANSDERMA DAILY [facility]; Protocol Last Admin: 03/27/23 08:28 Dose: 1 patch Magnesium Hydroxide (Milk Of Magnesia 30 Ml Oral.Susp) 30 ml PO DAILY PRN PRN Reason: Constipation Last Admin: 03/19/23 10:12 Dose: 30 ml Memantine (Memantine Hcl 5 Mg Tablet) 5 mg PO BID [facility] Last Admin: 03/27/23 08:28 Dose: 5 mg Olanzapine (Olanzapine 2.5 Mg Tablet) 2.5 mg PO TID PRN PRN Reason: agitation Last Admin: 03/10/23 20:30 Dose: 2.5 mg Olanzapine (Olanzapine 7.5 Mg Tablet) 7.5 mg PO BEDTIME [facility] Last Admin: 03/26/23 21:11 Dose: 7.5 mg Tramadol HCl (Tramadol Hcl 50 Mg Tablet) 50 mg PO Q4H PRN PRN Reason: Pain, Moderate(Pain Scale 4-6) Last Admin: 03/26/23 08:25 Dose: 50 mg Trazodone HCl (Trazodone Hcl 100 Mg Tablet) 100 mg PO BEDTIME [facility] Last Admin: 03/26/23 21:12 Dose: 100 mg Allergies Allergies Allergy/AdvReac Type Severity Reaction Status Date / Time pollen extracts Allergy Unknown unknown Verified 04/21/22 14:56 latex Allergy Rash Verified 10/31/22 18:30 Assessment & Plan Assessment & Plan (1) Bipolar disorder, now depressed: Status: Acute Code(s): F31.30 - Bipolar disorder, current episode depressed, mild or moderate severity, unspecified (2) Chronic back pain: Status: Acute Code(s): M54.9 - Dorsalgia, unspecified; G89.29 - Other chronic pain (3) Dementia: Status: Acute Code(s): F03.90 - Unspecified dementia, unspecified severity, without behavioral disturbance, psychotic disturbance, mood disturbance, and anxiety Plan 82 year old male with history hyperlipidemia, tubular adenoma colon, BPH, chronic normocytic anemia, 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 plan 1. Continue same treatment. 2. Waiting for placement 3. COVID positive on March 25 Reason for continued inpatient stay Substantial Risk for: inability to function, rapid decompensation and med/psych decompensation Time Spent With Patient Time: Total time managing care of this patient today __20__ minutes.
--- NOTE | 2023-03-27 17:14 | PC.NURSE ---
Patient was not tested for Covid today as he was positive on 03/24/23.
[2023-03-27 18:00] VITALS: BP 115/71; PULSE 84; RESP 18; TEMP 37.2; O2SAT 94
[2023-03-27] MEDS: traZODone HCL 100 MG TABLET PO (20:34)
[2023-03-27] MEDS: OLANZapine 7.5 MG TABLET PO (20:34)
[2023-03-27] MEDS: hydrOXYzine HCL 25 MG TABLET PO (20:35)
[2023-03-27] MEDS: Acetaminophen 325 MG TABLET 650 MG PO (20:35)
[2023-03-28 07:00] VITALS: BMI 26.9
[2023-03-28 08:43] VITALS: BP 122/87; PULSE 71; RESP 16; TEMP 36.1; O2SAT 94
[2023-03-28] MEDS: lamoTRIgine 100 MG TABLET PO ×2 (08:56→20:46)
[2023-03-28] MEDS: Lidocaine 4 % Patch ADH..PATCH 1 PATCH TRANSDERMA (08:56)
[2023-03-28] MEDS: Memantine HCl 5 MG TABLET PO ×2 (08:56→20:46)
--- NOTE | 2023-03-28 10:52 | P.PNPSI_ITS ---
Subjective Subjective Date of Service: 03/28/23 Reason For Visit: F31.9, F43.25 Subjective Notes: Conditional Voluntary Interim History: The nursing staff reported the patient had periods of confusions now that he is COVID positive. He slept well last night. Vital signs within normal limits. On interview the patient remains pleasantly confused, easily redirectable. Mental Status Exam Mental Status Exam Patient Appearance: Appropriate Patient Orientation: Person Level of Consciousness: Awake Patient Behavior: Guarded Mood Description: Withdrawn Affect Description: Calm Patient Cognition Impaired: Yes Ability to Follow Directions: Good Speech Pattern: Clear Hallucinations: None Delusions: Ideas of Reference Thought Process: Distracted and Slowed Thinking Thought Content: positive for Poverty of Content Judgement: Fair Diagnostics Vital Signs (24Hr): Vital Signs - 24 hr 03/27/23 18:00 03/27/23 18:00 03/28/23 08:43 Temperature 98.9 F 98.9 F 97.0 F Pulse Rate 84 84 71 Respiratory Rate 18 18 16 Blood Pressure 115/71 115/71 122/87 Pulse Oximetry 94 94 94 Oxygen Delivery Method Room Air Room Air Room Air BMI result Body Mass Index 27.3 Labs 02/15/23 06:42 02/15/23 06:43 Medications Medications Current Medications Acetaminophen (Acetaminophen 325 Mg Tablet) 650 mg PO Q4H PRN PRN Reason: Fever Last Admin: 03/27/23 20:35 Dose: 650 mg Al Hydroxide/Mg Hydroxide (Magnesium Hydrox/Alum Hydrox 30 Ml Oral.Susp) 30 ml PO Q6H PRN PRN Reason: Heartburn/Nausea Artificial Tears (Artificial Tears 15 Ml Drops) 1 drop EYE-BOTH Q4H PRN PRN Reason: Dry Eyes Last Admin: 03/24/23 01:42 Dose: 1 drop Bisacodyl (Bisacodyl 5 Mg Tablet.Dr) 10 mg PO DAILY PRN PRN Reason: Constipation Last Admin: 01/30/23 09:13 Dose: 10 mg Erythromycin (Erythromycin Base 0.5% Oph Oin 1 Gm Tube) 1 cm EYE-BOTH QID [facility] Last Admin: 03/28/23 10:31 Dose: Not Given Hydroxyzine HCl (Hydroxyzine Hcl 25 Mg Tablet) 25 mg PO Q6H PRN PRN Reason: Anxiety Last Admin: 03/27/23 20:35 Dose: 25 mg Lamotrigine (Lamotrigine 100 Mg Tablet) 100 mg PO BID [facility] Last Admin: 03/28/23 08:56 Dose: 100 mg Lidocaine (Lidocaine 4 % Patch Adh..Patch) 1 patch TRANSDERMA DAILY [facility]; Protocol Last Admin: 03/28/23 08:56 Dose: 1 patch Magnesium Hydroxide (Milk Of Magnesia 30 Ml Oral.Susp) 30 ml PO DAILY PRN PRN Reason: Constipation Last Admin: 03/19/23 10:12 Dose: 30 ml Memantine (Memantine Hcl 5 Mg Tablet) 5 mg PO BID [facility] Last Admin: 03/28/23 08:56 Dose: 5 mg Olanzapine (Olanzapine 2.5 Mg Tablet) 2.5 mg PO TID PRN PRN Reason: agitation Last Admin: 03/10/23 20:30 Dose: 2.5 mg Olanzapine (Olanzapine 7.5 Mg Tablet) 7.5 mg PO BEDTIME [facility] Last Admin: 03/27/23 20:34 Dose: 7.5 mg Tramadol HCl (Tramadol Hcl 50 Mg Tablet) 50 mg PO Q4H PRN PRN Reason: Pain, Moderate(Pain Scale 4-6) Last Admin: 03/26/23 08:25 Dose: 50 mg Trazodone HCl (Trazodone Hcl 100 Mg Tablet) 100 mg PO BEDTIME [facility] Last Admin: 03/27/23 20:34 Dose: 100 mg Allergies Allergies Allergy/AdvReac Type Severity Reaction Status Date / Time pollen extracts Allergy Unknown unknown Verified 04/21/22 14:56 latex Allergy Rash Verified 10/31/22 18:30 Assessment & Plan Assessment & Plan (1) Bipolar disorder, now depressed: Status: Acute Code(s): F31.30 - Bipolar disorder, current episode depressed, mild or moderate severity, unspecified (2) Chronic back pain: Status: Acute Code(s): M54.9 - Dorsalgia, unspecified; G89.29 - Other chronic pain (3) Dementia: Status: Acute Code(s): F03.90 - Unspecified dementia, unspecified severity, without behavioral disturbance, psychotic disturbance, mood disturbance, and anxiety Plan 82 year old male with history hyperlipidemia, tubular adenoma colon, BPH, chronic normocytic anemia, 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 plan 1. Continue same treatment. 2. Waiting for placement 3. COVID positive on March 25 Reason for continued inpatient stay Substantial Risk for: inability to function, rapid decompensation and med/psych decompensation Time Spent With Patient Time: Total time managing care of this patient today __20__ minutes.
[2023-03-28] MEDS: Erythromycin Base 0.5% Oph Oin 1 GM TUBE 1 CM EYE-BOTH (16:49)
[2023-03-28 19:45] VITALS: BP 105/63; PULSE 69; RESP 16; TEMP 36.8; O2SAT 95
[2023-03-28] MEDS: OLANZapine 7.5 MG TABLET PO (20:46)
[2023-03-28] MEDS: traZODone HCL 100 MG TABLET PO (20:46)
[2023-03-29 08:15] VITALS: BP 128/70; PULSE 55; RESP 16; TEMP 36.2; O2SAT 94
[2023-03-29] MEDS: Lidocaine 4 % Patch ADH..PATCH 1 PATCH TRANSDERMA (09:01)
[2023-03-29] MEDS: lamoTRIgine 100 MG TABLET PO ×2 (09:01→21:04)
[2023-03-29] MEDS: Memantine HCl 5 MG TABLET PO ×2 (09:01→21:04)
--- NOTE | 2023-03-29 13:32 | P.PNPSI_ITS ---
Subjective Subjective Date of Service: 03/29/23 Reason For Visit: F31.9, F43.25 Subjective Notes: Conditional Voluntary Interim History: The nursing staff reported no changes in his mental status more confused than usual due to COVID. On interview the patient denies new symptoms Mental Status Exam Mental Status Exam Patient Appearance: Appropriate Patient Orientation: Person and Situation Level of Consciousness: Awake Patient Behavior: Guarded and Passive Mood Description: Withdrawn Affect Description: Constricted Patient Cognition Impaired: Yes Ability to Follow Directions: Good Speech Pattern: Clear Hallucinations: None Delusions: Not Present Thought Process: Distracted Thought Content: positive for [place] Judgement: Fair Diagnostics Vital Signs (24Hr): Vital Signs - 24 hr 03/28/23 19:45 03/29/23 08:15 Temperature 98.2 F 97.2 F Pulse Rate 69 55 Respiratory Rate 16 16 Blood Pressure 105/63 128/70 Pulse Oximetry 95 94 Oxygen Delivery Method Room Air Room Air BMI result Body Mass Index 26.9 Labs 02/15/23 06:42 02/15/23 06:43 Medications Medications Current Medications Acetaminophen (Acetaminophen 325 Mg Tablet) 650 mg PO Q4H PRN PRN Reason: Fever Last Admin: 03/27/23 20:35 Dose: 650 mg Al Hydroxide/Mg Hydroxide (Magnesium Hydrox/Alum Hydrox 30 Ml Oral.Susp) 30 ml PO Q6H PRN PRN Reason: Heartburn/Nausea Artificial Tears (Artificial Tears 15 Ml Drops) 1 drop EYE-BOTH Q4H PRN PRN Reason: Dry Eyes Last Admin: 03/24/23 01:42 Dose: 1 drop Bisacodyl (Bisacodyl 5 Mg Tablet.Dr) 10 mg PO DAILY PRN PRN Reason: Constipation Last Admin: 01/30/23 09:13 Dose: 10 mg Erythromycin (Erythromycin Base 0.5% Oph Oin 1 Gm Tube) 1 cm EYE-BOTH QID [facility] Last Admin: 03/29/23 12:18 Dose: Not Given Hydroxyzine HCl (Hydroxyzine Hcl 25 Mg Tablet) 25 mg PO Q6H PRN PRN Reason: Anxiety Last Admin: 03/27/23 20:35 Dose: 25 mg Lamotrigine (Lamotrigine 100 Mg Tablet) 100 mg PO BID [facility] Last Admin: 03/29/23 09:01 Dose: 100 mg Lidocaine (Lidocaine 4 % Patch Adh..Patch) 1 patch TRANSDERMA DAILY [facility]; Protocol Last Admin: 03/29/23 09:01 Dose: 1 patch Magnesium Hydroxide (Milk Of Magnesia 30 Ml Oral.Susp) 30 ml PO DAILY PRN PRN Reason: Constipation Last Admin: 03/19/23 10:12 Dose: 30 ml Memantine (Memantine Hcl 5 Mg Tablet) 5 mg PO BID [facility] Last Admin: 03/29/23 09:01 Dose: 5 mg Olanzapine (Olanzapine 2.5 Mg Tablet) 2.5 mg PO TID PRN PRN Reason: agitation Last Admin: 03/10/23 20:30 Dose: 2.5 mg Olanzapine (Olanzapine 7.5 Mg Tablet) 7.5 mg PO BEDTIME [facility] Last Admin: 03/28/23 20:46 Dose: 7.5 mg Tramadol HCl (Tramadol Hcl 50 Mg Tablet) 50 mg PO Q4H PRN PRN Reason: Pain, Moderate(Pain Scale 4-6) Last Admin: 03/26/23 08:25 Dose: 50 mg Trazodone HCl (Trazodone Hcl 100 Mg Tablet) 100 mg PO BEDTIME [facility] Last Admin: 03/28/23 20:46 Dose: 100 mg Allergies Allergies Allergy/AdvReac Type Severity Reaction Status Date / Time pollen extracts Allergy Unknown unknown Verified 04/21/22 14:56 latex Allergy Rash Verified 10/31/22 18:30 Assessment & Plan Assessment & Plan (1) Bipolar disorder, now depressed: Status: Acute Code(s): F31.30 - Bipolar disorder, current episode depressed, mild or moderate severity, unspecified (2) Chronic back pain: Status: Acute Code(s): M54.9 - Dorsalgia, unspecified; G89.29 - Other chronic pain (3) Dementia: Status: Acute Code(s): F03.90 - Unspecified dementia, unspecified severity, without behavioral disturbance, psychotic disturbance, mood disturbance, and anxiety Plan 82 year old male with history hyperlipidemia, tubular adenoma colon, BPH, chronic normocytic anemia, 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 plan 1. Continue same treatment. 2. Waiting for placement 3. COVID positive on March 25 Reason for continued inpatient stay Substantial Risk for: inability to function, rapid decompensation and med/psych decompensation Time Spent With Patient Time: Total time managing care of this patient today __20__ minutes.
[2023-03-29 19:30] VITALS: BP 132/66; PULSE 67; RESP 18; TEMP 36.6; O2SAT 94
[2023-03-29] MEDS: Erythromycin Base 0.5% Oph Oin 1 GM TUBE 1 CM EYE-BOTH (21:04)
[2023-03-29] MEDS: OLANZapine 7.5 MG TABLET PO (21:04)
[2023-03-29] MEDS: traZODone HCL 100 MG TABLET PO (21:04)
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
[2023-03-30 08:40] VITALS: BP 140/89; PULSE 83; RESP 20; TEMP 36.8; O2SAT 96
[2023-03-30] MEDS: Lidocaine 4 % Patch ADH..PATCH 1 PATCH TRANSDERMA (08:44)
[2023-03-30] MEDS: lamoTRIgine 100 MG TABLET PO ×2 (08:44→20:02)
[2023-03-30] MEDS: Memantine HCl 5 MG TABLET PO ×2 (08:44→20:02)
[2023-03-30 19:35] VITALS: BP 119/63; PULSE 74; RESP 18; TEMP 36.3; O2SAT 94
[2023-03-30] MEDS: OLANZapine 7.5 MG TABLET PO (20:02)
[2023-03-30] MEDS: traZODone HCL 100 MG TABLET PO (20:02)
[2023-03-31] MEDS: traMADoL HCL 50 MG TABLET PO (02:03)
[2023-03-31 08:30] VITALS: BP 110/64; PULSE 71; RESP 18; TEMP 36.2; O2SAT 95
[2023-03-31] MEDS: lamoTRIgine 100 MG TABLET PO ×2 (08:44→21:03)
[2023-03-31] MEDS: Memantine HCl 5 MG TABLET PO ×2 (08:44→21:03)
[2023-03-31] MEDS: Lidocaine 4 % Patch ADH..PATCH 1 PATCH TRANSDERMA (08:45)
--- NOTE | 2023-03-31 16:28 | HO.PSYCHPN ---
Subjective Subjective Date of Service: 03/31/23 Reason For Visit: F31.9, F43.25 Subjective Notes: Conditional Voluntary Medical Problems Affecting Mental Status: Yes (dementia) Interim History: Pt reports he is doing ok, looking better recovering from covid. 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- pleasant confused, med compliant sleeping and eating ok Medication Compliance: Yes Side effects from medications: No Attending Groups: Intermittent Review of Systems Acute medical concerns: No recovery from covid Mental Status Exam Mental Status Exam Patient Appearance: Appropriate Patient Orientation: Person and Place Level of Consciousness: Awake and Alert Patient Behavior: Wandering, Confused and Good Eye Contact Mood Description: Calm Affect Description: Blunted Patient Cognition Impaired: Yes Ability to Follow Directions: Fair Speech Pattern: Clear Thought Process: Intact Thought Content: positive for Disorganized Judgement: Poor Diagnostics Vital Signs (24Hr): Vital Signs - 24 hr 03/30/23 19:35 03/31/23 08:30 Temperature 97.4 F 97.1 F Pulse Rate 74 71 Respiratory Rate 18 18 Blood Pressure 119/63 110/64 Pulse Oximetry 94 95 Oxygen Delivery Method Room Air Room Air BMI result Body Mass Index 26.9 Labs 02/15/23 06:42 02/15/23 06:43 Medications Medications Current Medications Acetaminophen (Acetaminophen 325 Mg Tablet) 650 mg PO Q4H PRN PRN Reason: Fever Last Admin: 03/27/23 20:35 Dose: 650 mg Al Hydroxide/Mg Hydroxide (Magnesium Hydrox/Alum Hydrox 30 Ml Oral.Susp) 30 ml PO Q6H PRN PRN Reason: Heartburn/Nausea Artificial Tears (Artificial Tears 15 Ml Drops) 1 drop EYE-BOTH Q4H PRN PRN Reason: Dry Eyes Last Admin: 03/24/23 01:42 Dose: 1 drop Bisacodyl (Bisacodyl 5 Mg Tablet.Dr) 10 mg PO DAILY PRN PRN Reason: Constipation Last Admin: 01/30/23 09:13 Dose: 10 mg Hydroxyzine HCl (Hydroxyzine Hcl 25 Mg Tablet) 25 mg PO Q6H PRN PRN Reason: Anxiety Last Admin: 03/27/23 20:35 Dose: 25 mg Lamotrigine (Lamotrigine 100 Mg Tablet) 100 mg PO BID [facility] Last Admin: 03/31/23 08:44 Dose: 100 mg Lidocaine (Lidocaine 4 % Patch Adh..Patch) 1 patch TRANSDERMA DAILY [facility]; Protocol Last Admin: 03/31/23 08:45 Dose: 1 patch Magnesium Hydroxide (Milk Of Magnesia 30 Ml Oral.Susp) 30 ml PO DAILY PRN PRN Reason: Constipation Last Admin: 03/19/23 10:12 Dose: 30 ml Memantine (Memantine Hcl 5 Mg Tablet) 5 mg PO BID [facility] Last Admin: 03/31/23 08:44 Dose: 5 mg Olanzapine (Olanzapine 2.5 Mg Tablet) 2.5 mg PO TID PRN PRN Reason: agitation Last Admin: 03/10/23 20:30 Dose: 2.5 mg Olanzapine (Olanzapine 7.5 Mg Tablet) 7.5 mg PO BEDTIME [facility] Last Admin: 03/30/23 20:02 Dose: 7.5 mg Tramadol HCl (Tramadol Hcl 50 Mg Tablet) 50 mg PO Q4H PRN PRN Reason: Pain, Moderate(Pain Scale 4-6) Last Admin: 03/31/23 02:03 Dose: 50 mg Trazodone HCl (Trazodone Hcl 100 Mg Tablet) 100 mg PO BEDTIME [facility] Last Admin: 03/30/23 20:02 Dose: 100 mg Allergies Allergies Allergy/AdvReac Type Severity Reaction Status Date / Time pollen extracts Allergy Unknown unknown Verified 04/21/22 14:56 latex Allergy Rash Verified 10/31/22 18:30 Assessment & Plan Assessment & Plan (1) Bipolar disorder, now depressed: Status: Acute Code(s): F31.30 - Bipolar disorder, current episode depressed, mild or moderate severity, unspecified (2) Chronic back pain: Status: Acute Code(s): M54.9 - Dorsalgia, unspecified; G89.29 - Other chronic pain (3) Dementia: Status: Acute Code(s): F03.90 - Unspecified dementia, unspecified severity, without behavioral disturbance, psychotic disturbance, mood disturbance, and anxiety Plan 82 year old male with history hyperlipidemia, tubular adenoma colon, BPH, chronic normocytic anemia, 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 plan 1. Continue same treatment. 2. Waiting for placement 3. 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
[2023-03-31 17:30] VITALS: BP 145/82; PULSE 77; TEMP 36.3; O2SAT 96
[2023-03-31] MEDS: OLANZapine 7.5 MG TABLET PO (21:03)
[2023-03-31] MEDS: OLANZapine 2.5 MG TABLET PO (21:03)
[2023-03-31] MEDS: traZODone HCL 100 MG TABLET PO (21:03)
[2023-04-01 08:18] VITALS: BP 136/85; PULSE 64; RESP 16; TEMP 36.8; O2SAT 97
[2023-04-01] MEDS: lamoTRIgine 100 MG TABLET PO ×2 (08:21→20:18)
[2023-04-01] MEDS: Lidocaine 4 % Patch ADH..PATCH 1 PATCH TRANSDERMA (08:21)
[2023-04-01] MEDS: Memantine HCl 5 MG TABLET PO ×2 (08:21→20:18)
[2023-04-01] MEDS: bisacodyL 5 MG TABLET.DR 10 MG PO (09:11)
--- NOTE | 2023-04-01 10:52 | HO.PSYCHPN ---
Subjective Subjective Date of Service: 04/01/23 Reason For Visit: F31.9, F43.25 Interim History: Nursing reports he is much better now post covid- back to more pleasantly confused instead of irritability confused- can still get stuck on ? of his truck or other things- eg might think lost glasses even though he has them on- Ongoing trouble with regular bowel movements, add in daily miralax Medication Compliance: Yes Side effects from medications: Yes (constipation) Attending Groups: Intermittent Review of Systems Acute medical concerns: No Medical Review of Systems: unchanged Mental Status Exam Mental Status Exam Patient Appearance: Appropriate Patient Orientation: Person and Place Level of Consciousness: Awake and Alert Patient Behavior: Wandering, Confused and Good Eye Contact Mood Description: Calm Affect Description: Blunted Patient Cognition Impaired: Yes Ability to Follow Directions: Fair Speech Pattern: Clear Thought Process: Intact Thought Content: positive for Disorganized Judgement: Poor Diagnostics Vital Signs (24Hr): Vital Signs - 24 hr 03/31/23 17:30 04/01/23 08:18 Temperature 97.4 F 98.2 F Pulse Rate 77 64 Respiratory Rate 16 Blood Pressure 145/82 H 136/85 Pulse Oximetry 96 97 Oxygen Delivery Method Room Air Room Air BMI result Body Mass Index 26.9 Labs 02/15/23 06:42 02/15/23 06:43 Medications Medications Current Medications Acetaminophen (Acetaminophen 325 Mg Tablet) 650 mg PO Q4H PRN PRN Reason: Fever Last Admin: 03/27/23 20:35 Dose: 650 mg Al Hydroxide/Mg Hydroxide (Magnesium Hydrox/Alum Hydrox 30 Ml Oral.Susp) 30 ml PO Q6H PRN PRN Reason: Heartburn/Nausea Artificial Tears (Artificial Tears 15 Ml Drops) 1 drop EYE-BOTH Q4H PRN PRN Reason: Dry Eyes Last Admin: 03/24/23 01:42 Dose: 1 drop Bisacodyl (Bisacodyl 5 Mg Tablet.Dr) 10 mg PO DAILY PRN PRN Reason: Constipation Last Admin: 04/01/23 09:11 Dose: 10 mg Hydroxyzine HCl (Hydroxyzine Hcl 25 Mg Tablet) 25 mg PO Q6H PRN PRN Reason: Anxiety Last Admin: 03/27/23 20:35 Dose: 25 mg Lamotrigine (Lamotrigine 100 Mg Tablet) 100 mg PO BID [facility] Last Admin: 04/01/23 08:21 Dose: 100 mg Lidocaine (Lidocaine 4 % Patch Adh..Patch) 1 patch TRANSDERMA DAILY [facility]; Protocol Last Admin: 04/01/23 08:21 Dose: 1 patch Magnesium Hydroxide (Milk Of Magnesia 30 Ml Oral.Susp) 30 ml PO DAILY PRN PRN Reason: Constipation Last Admin: 03/19/23 10:12 Dose: 30 ml Memantine (Memantine Hcl 5 Mg Tablet) 5 mg PO BID [facility] Last Admin: 04/01/23 08:21 Dose: 5 mg Olanzapine (Olanzapine 2.5 Mg Tablet) 2.5 mg PO TID PRN PRN Reason: agitation Last Admin: 03/31/23 21:03 Dose: 2.5 mg Olanzapine (Olanzapine 7.5 Mg Tablet) 7.5 mg PO BEDTIME [facility] Last Admin: 03/31/23 21:03 Dose: 7.5 mg Tramadol HCl (Tramadol Hcl 50 Mg Tablet) 50 mg PO Q4H PRN PRN Reason: Pain, Moderate(Pain Scale 4-6) Last Admin: 03/31/23 02:03 Dose: 50 mg Trazodone HCl (Trazodone Hcl 100 Mg Tablet) 100 mg PO BEDTIME [facility] Last Admin: 03/31/23 21:03 Dose: 100 mg Allergies Allergies Allergy/AdvReac Type Severity Reaction Status Date / Time pollen extracts Allergy Unknown unknown Verified 04/21/22 14:56 latex Allergy Rash Verified 10/31/22 18:30 Assessment & Plan Assessment & Plan (1) Bipolar disorder, now depressed: Status: Acute Code(s): F31.30 - Bipolar disorder, current episode depressed, mild or moderate severity, unspecified (2) Chronic back pain: Status: Acute Code(s): M54.9 - Dorsalgia, unspecified; G89.29 - Other chronic pain (3) Dementia: Status: Acute Code(s): F03.90 - Unspecified dementia, unspecified severity, without behavioral disturbance, psychotic disturbance, mood disturbance, and anxiety Plan 82 year old male with history hyperlipidemia, tubular adenoma colon, BPH, chronic normocytic anemia, 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 plan 1. Continue same treatment. 2. Waiting for placement 3. 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
[2023-04-01] MEDS: OLANZapine 2.5 MG TABLET PO (15:18)
[2023-04-01 18:00] VITALS: BP 106/54; PULSE 64; RESP 18; TEMP 36.7; O2SAT 97
[2023-04-01] MEDS: OLANZapine 7.5 MG TABLET PO (20:18)
[2023-04-01] MEDS: traZODone HCL 100 MG TABLET PO (20:18)
[2023-04-02 08:02] VITALS: BP 129/58; PULSE 72; RESP 18; TEMP 36.2; O2SAT 96
[2023-04-02] MEDS: lamoTRIgine 100 MG TABLET PO ×2 (08:32→21:09)
[2023-04-02] MEDS: traMADoL HCL 50 MG TABLET PO (08:32)
[2023-04-02] MEDS: Memantine HCl 5 MG TABLET PO ×2 (08:32→21:09)
[2023-04-02] MEDS: polyethylene glycoL 3350 17 GM POWD.PACK PO (08:35)
[2023-04-02] MEDS: Acetaminophen 325 MG TABLET 650 MG PO (09:54)
[2023-04-02] MEDS: OLANZapine 2.5 MG TABLET PO (09:54)
--- NOTE | 2023-04-02 13:17 | HO.PSYCHPN ---
Subjective Subjective Date of Service: 04/02/23 Reason For Visit: F31.9, F43.25 Subjective Notes: Conditional Voluntary Interim History: The nursing staff reported the patient has complained of visual hallucinations, seeing butterflies. His having psychotic symptoms since he had COVID last week. He slept 8 hours and he had good appetite. On interview the patient denies new symptoms looks internally preoccupied. We are going to keep him a p.r.n. Zyprexa. On top of his regular Zyprexa at night Mental Status Exam Mental Status Exam Patient Appearance: Appropriate Patient Orientation: Person Level of Consciousness: Awake Patient Behavior: Guarded and Passive Mood Description: Withdrawn Affect Description: Constricted Patient Cognition Impaired: Yes Ability to Follow Directions: Good Speech Pattern: Clear Hallucinations: Visual Delusions: Ideas of Reference Thought Process: Distracted and Slowed Thinking Thought Content: positive for [place] and positive for Poverty of Content Judgement: Fair Diagnostics Vital Signs (24Hr): Vital Signs - 24 hr 04/01/23 18:00 04/02/23 08:02 Temperature 98.1 F 97.2 F Pulse Rate 64 72 Respiratory Rate 18 18 Blood Pressure 106/54 L 129/58 L Pulse Oximetry 97 96 Oxygen Delivery Method Room Air Room Air BMI result Body Mass Index 26.9 Labs 02/15/23 06:42 02/15/23 06:43 Medications Medications Current Medications Acetaminophen (Acetaminophen 325 Mg Tablet) 650 mg PO Q4H PRN PRN Reason: Fever Last Admin: 04/02/23 09:54 Dose: 650 mg Al Hydroxide/Mg Hydroxide (Magnesium Hydrox/Alum Hydrox 30 Ml Oral.Susp) 30 ml PO Q6H PRN PRN Reason: Heartburn/Nausea Artificial Tears (Artificial Tears 15 Ml Drops) 1 drop EYE-BOTH Q4H PRN PRN Reason: Dry Eyes Last Admin: 03/24/23 01:42 Dose: 1 drop Bisacodyl (Bisacodyl 5 Mg Tablet.) 10 mg PO DAILY PRN PRN Reason: Constipation Last Admin: 04/01/23 09:11 Dose: 10 mg Hydroxyzine HCl (Hydroxyzine Hcl 25 Mg Tablet) 25 mg PO Q6H PRN PRN Reason: Anxiety Last Admin: 03/27/23 20:35 Dose: 25 mg Lamotrigine (Lamotrigine 100 Mg Tablet) 100 mg PO BID [facility] Last Admin: 04/02/23 08:32 Dose: 100 mg Lidocaine (Lidocaine 4 % Patch Adh..Patch) 1 patch TRANSDERMA DAILY [facility]; Protocol Last Admin: 04/02/23 08:36 Dose: Not Given Magnesium Hydroxide (Milk Of Magnesia 30 Ml Oral.Susp) 30 ml PO DAILY PRN PRN Reason: Constipation Last Admin: 03/19/23 10:12 Dose: 30 ml Memantine (Memantine Hcl 5 Mg Tablet) 5 mg PO BID [facility] Last Admin: 04/02/23 08:32 Dose: 5 mg Olanzapine (Olanzapine 2.5 Mg Tablet) 2.5 mg PO TID PRN PRN Reason: agitation Last Admin: 04/02/23 09:54 Dose: 2.5 mg Olanzapine (Olanzapine 7.5 Mg Tablet) 7.5 mg PO BEDTIME [facility] Last Admin: 04/01/23 20:18 Dose: 7.5 mg Polyethylene Glycol (Polyethylene Glycol 3350 17 Gm Powd.Pack) 17 gm PO DAILY [facility] Last Admin: 04/02/23 08:35 Dose: 17 gm Tramadol HCl (Tramadol Hcl 50 Mg Tablet) 50 mg PO Q4H PRN PRN Reason: Pain, Moderate(Pain Scale 4-6) Last Admin: 04/02/23 08:32 Dose: 50 mg Trazodone HCl (Trazodone Hcl 100 Mg Tablet) 100 mg PO BEDTIME [facility] Last Admin: 04/01/23 20:18 Dose: 100 mg Allergies Allergies Allergy/AdvReac Type Severity Reaction Status Date / Time pollen extracts Allergy Unknown unknown Verified 04/21/22 14:56 latex Allergy Rash Verified 10/31/22 18:30 Assessment & Plan Assessment & Plan (1) Bipolar disorder, now depressed: Status: Acute Code(s): F31.30 - Bipolar disorder, current episode depressed, mild or moderate severity, unspecified (2) Chronic back pain: Status: Acute Code(s): M54.9 - Dorsalgia, unspecified; G89.29 - Other chronic pain (3) Dementia: Status: Acute Code(s): F03.90 - Unspecified dementia, unspecified severity, without behavioral disturbance, psychotic disturbance, mood disturbance, and anxiety Plan 82 year old male with history hyperlipidemia, tubular adenoma colon, BPH, chronic normocytic anemia, 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 plan 1. Continue same treatment. 2. Waiting for placement 3. COVID positive on March 25 4. The patient is having visual hallucinations after being diagnosed with COVID, most likely due to delirium. His own p.r.n. Zyprexa regular Zyprexa night to target mood lability and psychosis. Reason for continued inpatient stay Substantial Risk for: inability to function, rapid decompensation and med/psych decompensation Time Spent With Patient Time: Total time managing care of this patient today __20__ minutes.
[2023-04-02 14:51] LABS: COVID-19 Test Positive (Negative); IDNOW Serial# 08D9AD1C
[2023-04-02 19:01] VITALS: BP 114/59; PULSE 78; RESP 18; TEMP 36.4; O2SAT 96
[2023-04-02] MEDS: OLANZapine 7.5 MG TABLET PO (21:09)
[2023-04-02] MEDS: traZODone HCL 100 MG TABLET PO (21:09)
[2023-04-03 06:00] VITALS: BP 108/64; PULSE 69; RESP 17; TEMP 36.7; O2SAT 95
[2023-04-03] MEDS: lamoTRIgine 100 MG TABLET PO ×2 (08:44→22:16)
[2023-04-03] MEDS: Memantine HCl 5 MG TABLET PO ×2 (08:44→22:17)
[2023-04-03] MEDS: Lidocaine 4 % Patch ADH..PATCH 1 PATCH TRANSDERMA (08:47)
[2023-04-03] MEDS: polyethylene glycoL 3350 17 GM POWD.PACK PO (08:48)
[2023-04-03] MEDS: Acetaminophen 325 MG TABLET 650 MG PO ×2 (10:08→22:16)
--- NOTE | 2023-04-03 15:13 | HO.PSYCHPN ---
Subjective Subjective Date of Service: 04/03/23 Reason For Visit: F31.9, F43.25 Subjective Notes: Conditional Voluntary Interim History: The nursing staff reported the patient had been compliant with treatment, no evidence of psychosis, his recover from COVID. On interview the patient denies new symptoms, waiting for placement Mental Status Exam Mental Status Exam Patient Appearance: Appropriate Patient Orientation: Person and Situation Level of Consciousness: Awake and Appropriate Patient Behavior: Guarded and Passive Mood Description: Withdrawn Affect Description: Calm Patient Cognition Impaired: Yes Ability to Follow Directions: Good Speech Pattern: Clear Hallucinations: None Delusions: Ideas of Reference Thought Process: Distracted Thought Content: positive for [place] and positive for Poverty of Content Judgement: Fair Diagnostics Vital Signs (24Hr): Vital Signs - 24 hr 04/02/23 19:01 04/03/23 06:00 Temperature 97.5 F 98.1 F Pulse Rate 78 69 Respiratory Rate 18 17 Blood Pressure 114/59 L 108/64 Pulse Oximetry 96 95 Oxygen Delivery Method Room Air Room Air BMI result Body Mass Index 26.9 Labs 02/15/23 06:42 02/15/23 06:43 Labs: Laboratory Results - last 48 hr 04/02/23 13:54 COVID-19 ([facility]) Positive A COVID-19 Clin Com See Note Medications Medications Current Medications Acetaminophen (Acetaminophen 325 Mg Tablet) 650 mg PO Q4H PRN PRN Reason: Fever Last Admin: 04/03/23 10:08 Dose: 650 mg Al Hydroxide/Mg Hydroxide (Magnesium Hydrox/Alum Hydrox 30 Ml Oral.Susp) 30 ml PO Q6H PRN PRN Reason: Heartburn/Nausea Artificial Tears (Artificial Tears 15 Ml Drops) 1 drop EYE-BOTH Q4H PRN PRN Reason: Dry Eyes Last Admin: 03/24/23 01:42 Dose: 1 drop Bisacodyl (Bisacodyl 5 Mg Tablet.Dr) 10 mg PO DAILY PRN PRN Reason: Constipation Last Admin: 04/01/23 09:11 Dose: 10 mg Hydroxyzine HCl (Hydroxyzine Hcl 25 Mg Tablet) 25 mg PO Q6H PRN PRN Reason: Anxiety Last Admin: 03/27/23 20:35 Dose: 25 mg Lamotrigine (Lamotrigine 100 Mg Tablet) 100 mg PO BID [facility] Last Admin: 04/03/23 08:44 Dose: 100 mg Lidocaine (Lidocaine 4 % Patch Adh..Patch) 1 patch TRANSDERMA DAILY [facility]; Protocol Last Admin: 04/03/23 08:47 Dose: 1 patch Magnesium Hydroxide (Milk Of Magnesia 30 Ml Oral.Susp) 30 ml PO DAILY PRN PRN Reason: Constipation Last Admin: 03/19/23 10:12 Dose: 30 ml Memantine (Memantine Hcl 5 Mg Tablet) 5 mg PO BID [facility] Last Admin: 04/03/23 08:44 Dose: 5 mg Olanzapine (Olanzapine 2.5 Mg Tablet) 2.5 mg PO TID PRN PRN Reason: agitation Last Admin: 04/02/23 09:54 Dose: 2.5 mg Olanzapine (Olanzapine 7.5 Mg Tablet) 7.5 mg PO BEDTIME [facility] Last Admin: 04/02/23 21:09 Dose: 7.5 mg Polyethylene Glycol (Polyethylene Glycol 3350 17 Gm Powd.Pack) 17 gm PO DAILY [facility] Last Admin: 04/03/23 08:48 Dose: 17 gm Tramadol HCl (Tramadol Hcl 50 Mg Tablet) 50 mg PO Q4H PRN PRN Reason: Pain, Moderate(Pain Scale 4-6) Last Admin: 04/02/23 08:32 Dose: 50 mg Trazodone HCl (Trazodone Hcl 100 Mg Tablet) 100 mg PO BEDTIME [facility] Last Admin: 04/02/23 21:09 Dose: 100 mg Allergies Allergies Allergy/AdvReac Type Severity Reaction Status Date / Time pollen extracts Allergy Unknown unknown Verified 04/21/22 14:56 latex Allergy Rash Verified 10/31/22 18:30 Assessment & Plan Assessment & Plan (1) Bipolar disorder, now depressed: Status: Acute Code(s): F31.30 - Bipolar disorder, current episode depressed, mild or moderate severity, unspecified (2) Chronic back pain: Status: Acute Code(s): M54.9 - Dorsalgia, unspecified; G89.29 - Other chronic pain (3) Dementia: Status: Acute Code(s): F03.90 - Unspecified dementia, unspecified severity, without behavioral disturbance, psychotic disturbance, mood disturbance, and anxiety Plan 82 year old male with history hyperlipidemia, tubular adenoma colon, BPH, chronic normocytic anemia, 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 plan 1. Continue same treatment. 2. Waiting for placement 3. COVID positive on March 25 4. The patient is having visual hallucinations after being diagnosed with COVID, most likely due to delirium. His own p.r.n. Zyprexa regular Zyprexa night to target mood lability and psychosis. Reason for continued inpatient stay Substantial Risk for: inability to function, rapid decompensation and med/psych decompensation Time Spent With Patient Time: Total time managing care of this patient today _20___ minutes.
[2023-04-03 18:00] VITALS: BP 131/84; PULSE 76; RESP 18; TEMP 36.4; O2SAT 97
[2023-04-03] MEDS: OLANZapine 7.5 MG TABLET PO (22:16)
[2023-04-03] MEDS: traZODone HCL 100 MG TABLET PO (22:16)
[2023-04-03] MEDS: hydrOXYzine HCL 25 MG TABLET PO (22:16)
[2023-04-04] MEDS: traMADoL HCL 50 MG TABLET PO (03:40)
[2023-04-04 07:00] VITALS: BMI 27.5
[2023-04-04 08:38] VITALS: BP 134/59; PULSE 72; RESP 18; TEMP 36.7; O2SAT 95
[2023-04-04] MEDS: lamoTRIgine 100 MG TABLET PO ×2 (08:44→21:22)
[2023-04-04] MEDS: Memantine HCl 5 MG TABLET PO ×2 (08:44→21:23)
[2023-04-04] MEDS: polyethylene glycoL 3350 17 GM POWD.PACK PO (08:44)
[2023-04-04] MEDS: OLANZapine 2.5 MG TABLET PO (11:18)
--- NOTE | 2023-04-04 14:53 | HO.PSYCHPN ---
Subjective Subjective Date of Service: 04/04/23 Reason For Visit: F31.9, F43.25 Subjective Notes: Conditional Voluntary Interim History: The nursing staff reported the patient had been compliant with treatment, pleasantly confused, easily redirectable. On interview the patient denies new symptoms, waiting for placement. Mental Status Exam Mental Status Exam Patient Appearance: Appropriate Patient Orientation: Person and Situation Level of Consciousness: Awake and Appropriate Patient Behavior: Guarded and Passive Mood Description: Withdrawn Affect Description: Constricted Patient Cognition Impaired: Yes Ability to Follow Directions: Good Speech Pattern: Clear Hallucinations: None Delusions: Not Present Thought Process: Distracted and Slowed Thinking Thought Content: positive for [place] and positive for Poverty of Content Judgement: Fair Diagnostics Vital Signs (24Hr): Vital Signs - 24 hr 04/03/23 18:00 04/04/23 08:38 Temperature 97.5 F 98.1 F Pulse Rate 76 72 Respiratory Rate 18 18 Blood Pressure 131/84 134/59 L Pulse Oximetry 97 95 Oxygen Delivery Method Room Air Room Air BMI result Body Mass Index 27.5 Labs 02/15/23 06:42 02/15/23 06:43 Medications Medications Current Medications Acetaminophen (Acetaminophen 325 Mg Tablet) 650 mg PO Q4H PRN PRN Reason: Fever Last Admin: 04/03/23 22:16 Dose: 650 mg Al Hydroxide/Mg Hydroxide (Magnesium Hydrox/Alum Hydrox 30 Ml Oral.Susp) 30 ml PO Q6H PRN PRN Reason: Heartburn/Nausea Artificial Tears (Artificial Tears 15 Ml Drops) 1 drop EYE-BOTH Q4H PRN PRN Reason: Dry Eyes Last Admin: 03/24/23 01:42 Dose: 1 drop Bisacodyl (Bisacodyl 5 Mg Tablet.Dr) 10 mg PO DAILY PRN PRN Reason: Constipation Last Admin: 04/01/23 09:11 Dose: 10 mg Hydroxyzine HCl (Hydroxyzine Hcl 25 Mg Tablet) 25 mg PO Q6H PRN PRN Reason: Anxiety Last Admin: 04/03/23 22:16 Dose: 25 mg Lamotrigine (Lamotrigine 100 Mg Tablet) 100 mg PO BID [facility] Last Admin: 04/04/23 08:44 Dose: 100 mg Lidocaine (Lidocaine 4 % Patch Adh..Patch) 1 patch TRANSDERMA DAILY [facility]; Protocol Last Admin: 04/04/23 08:44 Dose: 1 patch Magnesium Hydroxide (Milk Of Magnesia 30 Ml Oral.Susp) 30 ml PO DAILY PRN PRN Reason: Constipation Last Admin: 03/19/23 10:12 Dose: 30 ml Memantine (Memantine Hcl 5 Mg Tablet) 5 mg PO BID [facility] Last Admin: 04/04/23 08:44 Dose: 5 mg Olanzapine (Olanzapine 2.5 Mg Tablet) 2.5 mg PO TID PRN PRN Reason: agitation Last Admin: 04/04/23 11:18 Dose: 2.5 mg Olanzapine (Olanzapine 7.5 Mg Tablet) 7.5 mg PO BEDTIME [facility] Last Admin: 04/03/23 22:16 Dose: 7.5 mg Polyethylene Glycol (Polyethylene Glycol 3350 17 Gm Powd.Pack) 17 gm PO DAILY [facility] Last Admin: 04/04/23 08:44 Dose: 17 gm Trazodone HCl (Trazodone Hcl 100 Mg Tablet) 100 mg PO BEDTIME [facility] Last Admin: 04/03/23 22:16 Dose: 100 mg Allergies Allergies Allergy/AdvReac Type Severity Reaction Status Date / Time pollen extracts Allergy Unknown unknown Verified 04/21/22 14:56 latex Allergy Rash Verified 10/31/22 18:30 Assessment & Plan Assessment & Plan (1) Bipolar disorder, now depressed: Status: Acute Code(s): F31.30 - Bipolar disorder, current episode depressed, mild or moderate severity, unspecified (2) Chronic back pain: Status: Acute Code(s): M54.9 - Dorsalgia, unspecified; G89.29 - Other chronic pain (3) Dementia: Status: Acute Code(s): F03.90 - Unspecified dementia, unspecified severity, without behavioral disturbance, psychotic disturbance, mood disturbance, and anxiety Plan 82 year old male with history hyperlipidemia, tubular adenoma colon, BPH, chronic normocytic anemia, 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 plan 1. Continue same treatment. 2. Waiting for placement 3. COVID positive on March 25 4. The patient is having visual hallucinations after being diagnosed with COVID, most likely due to delirium. His own p.r.n. Zyprexa regular Zyprexa night to target mood lability and psychosis. Reason for continued inpatient stay Substantial Risk for: inability to function, rapid decompensation and med/psych decompensation Time Spent With Patient Time: Total time managing care of this patient today __20__ minutes.
[2023-04-04 18:00] VITALS: BP 138/68; PULSE 73; RESP 18; TEMP 36.6; O2SAT 97
[2023-04-04] MEDS: OLANZapine 7.5 MG TABLET PO (21:22)
[2023-04-04] MEDS: traZODone HCL 100 MG TABLET PO (21:22)
[2023-04-04] MEDS: Acetaminophen 325 MG TABLET 650 MG PO (21:22)
[2023-04-04] MEDS: hydrOXYzine HCL 25 MG TABLET PO (21:23)
[2023-04-05 08:20] VITALS: BP 110/57; PULSE 75; RESP 17; TEMP 36.1; O2SAT 95
[2023-04-05] MEDS: Memantine HCl 5 MG TABLET PO ×2 (08:32→20:30)
[2023-04-05] MEDS: lamoTRIgine 100 MG TABLET PO ×2 (08:32→20:30)
--- NOTE | 2023-04-05 09:12 | HO.PSYCHPN ---
Subjective Subjective Date of Service: 04/05/23 Reason For Visit: F31.9, F43.25 Subjective Notes: Conditional Voluntary Interim History: The nursing staff reported the patient had been compliant with treatment, no changes in his mental status. On interview the patient remains pleasantly confused, easily redirectable. Mental Status Exam Mental Status Exam Patient Appearance: Appropriate Patient Orientation: Person Level of Consciousness: Awake Patient Behavior: Guarded and Passive Mood Description: Calm Affect Description: Constricted Patient Cognition Impaired: Yes Speech Pattern: Impoverished Hallucinations: None Delusions: Not Present Thought Process: Distracted and Word Salad Thought Content: positive for [place] and positive for Poverty of Content Judgement: Fair Diagnostics Vital Signs (24Hr): Vital Signs - 24 hr 04/04/23 18:00 04/05/23 08:20 Temperature 98 F 97.0 F Pulse Rate 73 75 Respiratory Rate 18 17 Blood Pressure 138/68 110/57 L Pulse Oximetry 97 95 Oxygen Delivery Method Room Air Room Air BMI result Body Mass Index 27.5 Labs 02/15/23 06:42 02/15/23 06:43 Medications Medications Current Medications Acetaminophen (Acetaminophen 325 Mg Tablet) 650 mg PO Q4H PRN PRN Reason: Fever Last Admin: 04/04/23 21:22 Dose: 650 mg Al Hydroxide/Mg Hydroxide (Magnesium Hydrox/Alum Hydrox 30 Ml Oral.Susp) 30 ml PO Q6H PRN PRN Reason: Heartburn/Nausea Artificial Tears (Artificial Tears 15 Ml Drops) 1 drop EYE-BOTH Q4H PRN PRN Reason: Dry Eyes Last Admin: 03/24/23 01:42 Dose: 1 drop Bisacodyl (Bisacodyl 5 Mg Tablet.Dr) 10 mg PO DAILY PRN PRN Reason: Constipation Last Admin: 04/01/23 09:11 Dose: 10 mg Hydroxyzine HCl (Hydroxyzine Hcl 25 Mg Tablet) 25 mg PO Q6H PRN PRN Reason: Anxiety Last Admin: 04/04/23 21:23 Dose: 25 mg Lamotrigine (Lamotrigine 100 Mg Tablet) 100 mg PO BID [facility] Last Admin: 04/05/23 08:32 Dose: 100 mg Lidocaine (Lidocaine 4 % Patch Adh..Patch) 1 patch TRANSDERMA DAILY [facility]; Protocol Last Admin: 04/05/23 08:32 Dose: 1 patch Magnesium Hydroxide (Milk Of Magnesia 30 Ml Oral.Susp) 30 ml PO DAILY PRN PRN Reason: Constipation Last Admin: 03/19/23 10:12 Dose: 30 ml Memantine (Memantine Hcl 5 Mg Tablet) 5 mg PO BID [facility] Last Admin: 04/05/23 08:32 Dose: 5 mg Olanzapine (Olanzapine 2.5 Mg Tablet) 2.5 mg PO TID PRN PRN Reason: agitation Last Admin: 04/04/23 11:18 Dose: 2.5 mg Olanzapine (Olanzapine 7.5 Mg Tablet) 7.5 mg PO BEDTIME [facility] Last Admin: 04/04/23 21:22 Dose: 7.5 mg Polyethylene Glycol (Polyethylene Glycol 3350 17 Gm Powd.Pack) 17 gm PO DAILY [facility] Last Admin: 04/05/23 08:33 Dose: 17 gm Trazodone HCl (Trazodone Hcl 100 Mg Tablet) 100 mg PO BEDTIME [facility] Last Admin: 04/04/23 21:22 Dose: 100 mg Allergies Allergies Allergy/AdvReac Type Severity Reaction Status Date / Time pollen extracts Allergy Unknown unknown Verified 04/21/22 14:56 latex Allergy Rash Verified 10/31/22 18:30 Assessment & Plan Assessment & Plan (1) Bipolar disorder, now depressed: Status: Acute Code(s): F31.30 - Bipolar disorder, current episode depressed, mild or moderate severity, unspecified (2) Chronic back pain: Status: Acute Code(s): M54.9 - Dorsalgia, unspecified; G89.29 - Other chronic pain (3) Dementia: Status: Acute Code(s): F03.90 - Unspecified dementia, unspecified severity, without behavioral disturbance, psychotic disturbance, mood disturbance, and anxiety Plan 82 year old male with history hyperlipidemia, tubular adenoma colon, BPH, chronic normocytic anemia, 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 plan 1. Continue same treatment. 2. Waiting for placement 3. COVID positive on March 25 4. The patient is having visual hallucinations after being diagnosed with COVID, most likely due to delirium. His own p.r.n. Zyprexa regular Zyprexa night to target mood lability and psychosis. Reason for continued inpatient stay Substantial Risk for: inability to function, rapid decompensation and med/psych decompensation Time Spent With Patient Time: Total time managing care of this patient today _20___ minutes.
[2023-04-05 20:25] VITALS: BP 120/67; PULSE 70; RESP 16; TEMP 36.3; O2SAT 95
[2023-04-05] MEDS: OLANZapine 7.5 MG TABLET PO (20:29)
[2023-04-05] MEDS: traZODone HCL 100 MG TABLET PO (20:30)
[2023-04-06 08:20] VITALS: BP 112/61; PULSE 73; RESP 16; TEMP 36.2; O2SAT 93
[2023-04-06] MEDS: lamoTRIgine 100 MG TABLET PO ×2 (08:21→20:02)
--- NOTE | 2023-04-06 15:25 | HO.PSYCHPN ---
Subjective Subjective Date of Service: 04/06/23 Reason For Visit: F31.9, F43.25 Interim History: Pt seen, discussed in team rounds, plans reviewed. Team report no changes, they report pt has discussed a delusion that he believes that someone is pouring delicious things on his belongings. Pt resting but awake. Expressed concern that his truck is being held in the parking lot, he is not allowed to drive it and I am not even ill . Medication Compliance: Yes Side effects from medications: No Attending Groups: Intermittent Review of Systems Acute medical concerns: No Medical Review of Systems: unchanged Review of Systems Review of Systems Yes all other systems are reviewed and are negative Mental Status Exam Mental Status Exam Patient Appearance: Appropriate Patient Orientation: Person Level of Consciousness: Awake Patient Behavior: Guarded and Passive Mood Description: Calm Affect Description: Constricted Patient Cognition Impaired: Yes Speech Pattern: Impoverished Hallucinations: None Delusions: Not Present Thought Process: Distracted Thought Content: positive for [place] and positive for Poverty of Content Judgement: Fair Diagnostics Vital Signs (24Hr): Vital Signs - 24 hr 04/05/23 20:25 04/06/23 08:20 Temperature 97.4 F 97.1 F Pulse Rate 70 73 Respiratory Rate 16 16 Blood Pressure 120/67 112/61 Pulse Oximetry 95 93 Oxygen Delivery Method Room Air Room Air BMI result Body Mass Index 27.5 Labs 02/15/23 06:42 02/15/23 06:43 Medications Medications Current Medications Acetaminophen (Acetaminophen 325 Mg Tablet) 650 mg PO Q4H PRN PRN Reason: Fever Last Admin: 04/04/23 21:22 Dose: 650 mg Al Hydroxide/Mg Hydroxide (Magnesium Hydrox/Alum Hydrox 30 Ml Oral.Susp) 30 ml PO Q6H PRN PRN Reason: Heartburn/Nausea Artificial Tears (Artificial Tears 15 Ml Drops) 1 drop EYE-BOTH Q4H PRN PRN Reason: Dry Eyes Last Admin: 03/24/23 01:42 Dose: 1 drop Bisacodyl (Bisacodyl 5 Mg Tablet.Dr) 10 mg PO DAILY PRN PRN Reason: Constipation Last Admin: 04/01/23 09:11 Dose: 10 mg Hydroxyzine HCl (Hydroxyzine Hcl 25 Mg Tablet) 25 mg PO Q6H PRN PRN Reason: Anxiety Last Admin: 04/04/23 21:23 Dose: 25 mg Lamotrigine (Lamotrigine 100 Mg Tablet) 100 mg PO BID [facility] Last Admin: 04/06/23 08:21 Dose: 100 mg Lidocaine (Lidocaine 4 % Patch Adh..Patch) 1 patch TRANSDERMA DAILY [facility]; Protocol Last Admin: 04/06/23 08:22 Dose: Not Given Magnesium Hydroxide (Milk Of Magnesia 30 Ml Oral.Susp) 30 ml PO DAILY PRN PRN Reason: Constipation Last Admin: 03/19/23 10:12 Dose: 30 ml Memantine (Memantine Hcl 5 Mg Tablet) 5 mg PO BID [facility] Last Admin: 04/06/23 08:21 Dose: 5 mg Olanzapine (Olanzapine 2.5 Mg Tablet) 2.5 mg PO TID PRN PRN Reason: agitation Last Admin: 04/04/23 11:18 Dose: 2.5 mg Olanzapine (Olanzapine 7.5 Mg Tablet) 7.5 mg PO BEDTIME [facility] Last Admin: 04/05/23 20:29 Dose: 7.5 mg Polyethylene Glycol (Polyethylene Glycol 3350 17 Gm Powd.Pack) 17 gm PO DAILY [facility] Last Admin: 04/06/23 08:24 Dose: 17 gm Tramadol HCl (Tramadol Hcl 50 Mg Tablet) 50 mg PO Q6H PRN PRN Reason: Pain, Moderate(Pain Scale 4-6) Trazodone HCl (Trazodone Hcl 100 Mg Tablet) 100 mg PO BEDTIME [facility] Last Admin: 04/05/23 20:30 Dose: 100 mg Allergies Allergies Allergy/AdvReac Type Severity Reaction Status Date / Time pollen extracts Allergy Unknown unknown Verified 04/21/22 14:56 latex Allergy Rash Verified 10/31/22 18:30 Assessment & Plan Assessment & Plan (1) Bipolar disorder, now depressed: Status: Acute Code(s): F31.30 - Bipolar disorder, current episode depressed, mild or moderate severity, unspecified (2) Chronic back pain: Status: Acute Code(s): M54.9 - Dorsalgia, unspecified; G89.29 - Other chronic pain (3) Dementia: Status: Acute Code(s): F03.90 - Unspecified dementia, unspecified severity, without behavioral disturbance, psychotic disturbance, mood disturbance, and anxiety Plan 82 year old male with history hyperlipidemia, tubular adenoma colon, BPH, chronic normocytic anemia, 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 plan 1. Continue same treatment. 2. Waiting for placement 3. COVID positive on March 25 4. The patient is having visual hallucinations after being diagnosed with COVID, most likely due to delirium. His own p.r.n. Zyprexa regular Zyprexa night to target mood lability and psychosis. 04/06/23 Continue tx. Informed Consent: does not understand Reason for continued inpatient stay Substantial Risk for: rapid decompensation Time Spent With Patient Time: Total time managing care of this patient today ____ minutes.
[2023-04-06 20:01] VITALS: BP 126/82; PULSE 68; RESP 16; TEMP 36.6; O2SAT 93
[2023-04-06] MEDS: traZODone HCL 100 MG TABLET PO (20:02)
[2023-04-06] MEDS: OLANZapine 7.5 MG TABLET PO (20:02)
[2023-04-07 09:32] VITALS: BP 133/66; PULSE 76; RESP 16; TEMP 36.2; O2SAT 96
[2023-04-07] MEDS: lamoTRIgine 100 MG TABLET PO ×2 (09:33→21:32)
--- NOTE | 2023-04-07 17:09 | HO.PSYCHPN ---
Subjective Subjective Date of Service: 04/07/23 Reason For Visit: F31.9, F43.25 Interim History: Pt in the milieu, interactive with peers, smiling, interested in current conversation. Team report no new concerns at this time. Review of plan and regime. Pt again references his truck and wanting to drive. Medication Compliance: Yes Side effects from medications: No Attending Groups: Yes Review of Systems Acute medical concerns: No Medical Review of Systems: unchanged Review of Systems Review of Systems Yes all other systems are reviewed and are negative Mental Status Exam Mental Status Exam Patient Appearance: Appropriate Patient Orientation: Person Level of Consciousness: Awake Patient Behavior: Guarded and Passive Mood Description: Calm Affect Description: Constricted Patient Cognition Impaired: Yes Speech Pattern: Impoverished Hallucinations: None Delusions: Not Present Thought Process: Distracted Thought Content: positive for [place] and positive for Poverty of Content Judgement: Fair Diagnostics Vital Signs (24Hr): Vital Signs - 24 hr 04/06/23 20:01 04/07/23 09:32 Temperature 97.8 F 97.2 F Pulse Rate 68 76 Respiratory Rate 16 16 Blood Pressure 126/82 133/66 Pulse Oximetry 93 96 Oxygen Delivery Method Room Air Room Air BMI result Body Mass Index 27.5 Labs 02/15/23 06:42 02/15/23 06:43 Medications Medications Current Medications Acetaminophen (Acetaminophen 325 Mg Tablet) 650 mg PO Q4H PRN PRN Reason: Fever Last Admin: 04/04/23 21:22 Dose: 650 mg Al Hydroxide/Mg Hydroxide (Magnesium Hydrox/Alum Hydrox 30 Ml Oral.Susp) 30 ml PO Q6H PRN PRN Reason: Heartburn/Nausea Artificial Tears (Artificial Tears 15 Ml Drops) 1 drop EYE-BOTH Q4H PRN PRN Reason: Dry Eyes Last Admin: 03/24/23 01:42 Dose: 1 drop Bisacodyl (Bisacodyl 5 Mg Tablet.Dr) 10 mg PO DAILY PRN PRN Reason: Constipation Last Admin: 04/01/23 09:11 Dose: 10 mg Hydroxyzine HCl (Hydroxyzine Hcl 25 Mg Tablet) 25 mg PO Q6H PRN PRN Reason: Anxiety Last Admin: 04/04/23 21:23 Dose: 25 mg Lamotrigine (Lamotrigine 100 Mg Tablet) 100 mg PO BID [facility] Last Admin: 04/07/23 09:33 Dose: 100 mg Lidocaine (Lidocaine 4 % Patch Adh..Patch) 1 patch TRANSDERMA DAILY [facility]; Protocol Last Admin: 04/07/23 09:33 Dose: Not Given Magnesium Hydroxide (Milk Of Magnesia 30 Ml Oral.Susp) 30 ml PO DAILY PRN PRN Reason: Constipation Last Admin: 03/19/23 10:12 Dose: 30 ml Memantine (Memantine Hcl 5 Mg Tablet) 5 mg PO BID [facility] Last Admin: 04/07/23 09:33 Dose: 5 mg Olanzapine (Olanzapine 2.5 Mg Tablet) 2.5 mg PO TID PRN PRN Reason: agitation Last Admin: 04/04/23 11:18 Dose: 2.5 mg Olanzapine (Olanzapine 7.5 Mg Tablet) 7.5 mg PO BEDTIME [facility] Last Admin: 04/06/23 20:02 Dose: 7.5 mg Polyethylene Glycol (Polyethylene Glycol 3350 17 Gm Powd.Pack) 17 gm PO DAILY [facility] Last Admin: 04/07/23 09:33 Dose: 17 gm Tramadol HCl (Tramadol Hcl 50 Mg Tablet) 50 mg PO Q6H PRN PRN Reason: Pain, Moderate(Pain Scale 4-6) Trazodone HCl (Trazodone Hcl 100 Mg Tablet) 100 mg PO BEDTIME [facility] Last Admin: 04/06/23 20:02 Dose: 100 mg Allergies Allergies Allergy/AdvReac Type Severity Reaction Status Date / Time pollen extracts Allergy Unknown unknown Verified 04/21/22 14:56 latex Allergy Rash Verified 10/31/22 18:30 Assessment & Plan Assessment & Plan (1) Bipolar disorder, now depressed: Status: Acute Code(s): F31.30 - Bipolar disorder, current episode depressed, mild or moderate severity, unspecified (2) Chronic back pain: Status: Acute Code(s): M54.9 - Dorsalgia, unspecified; G89.29 - Other chronic pain (3) Dementia: Status: Acute Code(s): F03.90 - Unspecified dementia, unspecified severity, without behavioral disturbance, psychotic disturbance, mood disturbance, and anxiety Plan 82 year old male with history hyperlipidemia, tubular adenoma colon, BPH, chronic normocytic anemia, 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 plan 1. Continue same treatment. 2. Waiting for placement 3. COVID positive on March 25 4. The patient is having visual hallucinations after being diagnosed with COVID, most likely due to delirium. His own p.r.n. Zyprexa regular Zyprexa night to target mood lability and psychosis. 04/06/23 Continue tx. 04/07/23 Continue tx Informed Consent: does not understand Reason for continued inpatient stay Substantial Risk for: rapid decompensation Time Spent With Patient Time: Total time managing care of this patient today ____ minutes.
[2023-04-07 18:00] VITALS: BP 128/73; PULSE 97; RESP 16; TEMP 36.3; O2SAT 97
[2023-04-07] MEDS: hydrOXYzine HCL 25 MG TABLET PO (21:32)
[2023-04-07] MEDS: OLANZapine 7.5 MG TABLET PO (21:32)
[2023-04-07] MEDS: traZODone HCL 100 MG TABLET PO (21:33)
[2023-04-08 07:55] VITALS: BP 124/54; PULSE 72; RESP 18; TEMP 36.3; O2SAT 94
[2023-04-08] MEDS: lamoTRIgine 100 MG TABLET PO ×2 (09:06→21:41)
[2023-04-08] MEDS: Acetaminophen 325 MG TABLET 650 MG PO (09:06)
[2023-04-08] MEDS: OLANZapine 2.5 MG TABLET PO (09:06)
--- NOTE | 2023-04-08 14:22 | HO.PSYCHPN ---
Subjective Subjective Date of Service: 04/08/23 Reason For Visit: F31.9, F43.25 Subjective Notes: Conditional Voluntary Interim History: The nursing staff reported the patient slept 6 hours. The social science research assistant reported the guardian could not get financial statements yet for discharge planning. On interview the patient denies new symptoms, pleasantly confused. Mental Status Exam Mental Status Exam Patient Appearance: Appropriate Patient Orientation: Person and Situation Level of Consciousness: Awake Patient Behavior: Guarded and Passive Mood Description: Withdrawn Affect Description: Calm Patient Cognition Impaired: Yes Ability to Follow Directions: Good Speech Pattern: Clear Hallucinations: None Delusions: Not Present Thought Process: Distracted and Slowed Thinking Thought Content: positive for [place] and positive for Poverty of Content Judgement: Poor Diagnostics Vital Signs (24Hr): Vital Signs - 24 hr 04/07/23 18:00 04/08/23 07:55 Temperature 97.3 F 97.4 F Pulse Rate 97 72 Respiratory Rate 16 18 Blood Pressure 128/73 124/54 L Pulse Oximetry 97 94 Oxygen Delivery Method Room Air Room Air BMI result Body Mass Index 27.5 Labs 02/15/23 06:42 02/15/23 06:43 Medications Medications Current Medications Acetaminophen (Acetaminophen 325 Mg Tablet) 650 mg PO Q4H PRN PRN Reason: Fever Last Admin: 04/08/23 09:06 Dose: 650 mg Al Hydroxide/Mg Hydroxide (Magnesium Hydrox/Alum Hydrox 30 Ml Oral.Susp) 30 ml PO Q6H PRN PRN Reason: Heartburn/Nausea Artificial Tears (Artificial Tears 15 Ml Drops) 1 drop EYE-BOTH Q4H PRN PRN Reason: Dry Eyes Last Admin: 03/24/23 01:42 Dose: 1 drop Bisacodyl (Bisacodyl 5 Mg Tablet.Dr) 10 mg PO DAILY PRN PRN Reason: Constipation Last Admin: 04/01/23 09:11 Dose: 10 mg Hydroxyzine HCl (Hydroxyzine Hcl 25 Mg Tablet) 25 mg PO Q6H PRN PRN Reason: Anxiety Last Admin: 04/07/23 21:32 Dose: 25 mg Lamotrigine (Lamotrigine 100 Mg Tablet) 100 mg PO BID [facility] Last Admin: 04/08/23 09:06 Dose: 100 mg Lidocaine (Lidocaine 4 % Patch Adh..Patch) 1 patch TRANSDERMA DAILY [facility]; Protocol Last Admin: 04/08/23 09:41 Dose: Not Given Magnesium Hydroxide (Milk Of Magnesia 30 Ml Oral.Susp) 30 ml PO DAILY PRN PRN Reason: Constipation Last Admin: 03/19/23 10:12 Dose: 30 ml Memantine (Memantine Hcl 5 Mg Tablet) 5 mg PO BID [facility] Last Admin: 04/08/23 09:06 Dose: 5 mg Olanzapine (Olanzapine 2.5 Mg Tablet) 2.5 mg PO TID PRN PRN Reason: agitation Last Admin: 04/08/23 09:06 Dose: 2.5 mg Olanzapine (Olanzapine 7.5 Mg Tablet) 7.5 mg PO BEDTIME [facility] Last Admin: 04/07/23 21:32 Dose: 7.5 mg Polyethylene Glycol (Polyethylene Glycol 3350 17 Gm Powd.Pack) 17 gm PO DAILY [facility] Last Admin: 04/08/23 09:41 Dose: Not Given Tramadol HCl (Tramadol Hcl 50 Mg Tablet) 50 mg PO Q6H PRN PRN Reason: Pain, Moderate(Pain Scale 4-6) Last Admin: 04/08/23 09:06 Dose: 50 mg Trazodone HCl (Trazodone Hcl 100 Mg Tablet) 100 mg PO BEDTIME [facility] Last Admin: 04/07/23 21:33 Dose: 100 mg Allergies Allergies Allergy/AdvReac Type Severity Reaction Status Date / Time pollen extracts Allergy Unknown unknown Verified 04/21/22 14:56 latex Allergy Rash Verified 10/31/22 18:30 Assessment & Plan Assessment & Plan (1) Bipolar disorder, now depressed: Status: Acute Code(s): F31.30 - Bipolar disorder, current episode depressed, mild or moderate severity, unspecified (2) Chronic back pain: Status: Acute Code(s): M54.9 - Dorsalgia, unspecified; G89.29 - Other chronic pain (3) Dementia: Status: Acute Code(s): F03.90 - Unspecified dementia, unspecified severity, without behavioral disturbance, psychotic disturbance, mood disturbance, and anxiety Plan 82 year old male with history hyperlipidemia, tubular adenoma colon, BPH, chronic normocytic anemia, 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 plan 1. Continue same treatment. 2. Waiting for placement 3. COVID positive on March 25 4. The patient is having visual hallucinations after being diagnosed with COVID, most likely due to delirium. His own p.r.n. Zyprexa regular Zyprexa night to target mood lability and psychosis. Reason for continued inpatient stay Substantial Risk for: inability to function, rapid decompensation and med/psych decompensation Time Spent With Patient Time: Total time managing care of this patient today __20__ minutes.
[2023-04-08] MEDS: Memantine HCl 5 MG TABLET PO (21:41)
[2023-04-08] MEDS: traZODone HCL 100 MG TABLET PO (21:42)
[2023-04-08] MEDS: OLANZapine 7.5 MG TABLET PO (21:42)
[2023-04-09 07:59] VITALS: BP 134/71; PULSE 68; RESP 16; TEMP 36.5; O2SAT 95
[2023-04-09] MEDS: lamoTRIgine 100 MG TABLET PO ×2 (09:00→20:17)
[2023-04-09] MEDS: Memantine HCl 5 MG TABLET PO ×2 (09:00→20:17)
[2023-04-09] MEDS: Lidocaine 4 % Patch ADH..PATCH 1 PATCH TRANSDERMA (09:00)
[2023-04-09] MEDS: traMADoL HCL 50 MG TABLET PO (10:46)
[2023-04-09] MEDS: Acetaminophen 325 MG TABLET 650 MG PO (10:47)
--- NOTE | 2023-04-09 13:34 | HO.PSYCHPN ---
Subjective Subjective Date of Service: 04/09/23 Reason For Visit: F31.9, F43.25 Subjective Notes: Conditional Voluntary Interim History: The nursing staff reports no changes in his mental status. On interview the patient remains pleasantly confused, easily redirectable. Mental Status Exam Mental Status Exam Patient Appearance: Appropriate Patient Orientation: Person and Situation Level of Consciousness: Awake and Appropriate Patient Behavior: Guarded and Passive Mood Description: Withdrawn Affect Description: Constricted Patient Cognition Impaired: Yes Ability to Follow Directions: Good Speech Pattern: Clear Hallucinations: None Delusions: Ideas of Reference Thought Process: Distracted and Slowed Thinking Thought Content: positive for Poverty of Content Judgement: Fair Diagnostics Vital Signs (24Hr): Vital Signs - 24 hr 04/09/23 07:59 Temperature 97.7 F Pulse Rate 68 Respiratory Rate 16 Blood Pressure 134/71 Pulse Oximetry 95 Oxygen Delivery Method Room Air BMI result Body Mass Index 27.5 Labs 02/15/23 06:42 02/15/23 06:43 Medications Medications Current Medications Acetaminophen (Acetaminophen 325 Mg Tablet) 650 mg PO Q4H PRN PRN Reason: Fever Last Admin: 04/09/23 10:47 Dose: 650 mg Al Hydroxide/Mg Hydroxide (Magnesium Hydrox/Alum Hydrox 30 Ml Oral.Susp) 30 ml PO Q6H PRN PRN Reason: Heartburn/Nausea Artificial Tears (Artificial Tears 15 Ml Drops) 1 drop EYE-BOTH Q4H PRN PRN Reason: Dry Eyes Last Admin: 03/24/23 01:42 Dose: 1 drop Bisacodyl (Bisacodyl 5 Mg Tablet.Dr) 10 mg PO DAILY PRN PRN Reason: Constipation Last Admin: 04/01/23 09:11 Dose: 10 mg Hydroxyzine HCl (Hydroxyzine Hcl 25 Mg Tablet) 25 mg PO Q6H PRN PRN Reason: Anxiety Last Admin: 04/07/23 21:32 Dose: 25 mg Lamotrigine (Lamotrigine 100 Mg Tablet) 100 mg PO BID [facility] Last Admin: 04/09/23 09:00 Dose: 100 mg Lidocaine (Lidocaine 4 % Patch Adh..Patch) 1 patch TRANSDERMA DAILY [facility]; Protocol Last Admin: 04/09/23 09:00 Dose: 1 patch Magnesium Hydroxide (Milk Of Magnesia 30 Ml Oral.Susp) 30 ml PO DAILY PRN PRN Reason: Constipation Last Admin: 03/19/23 10:12 Dose: 30 ml Memantine (Memantine Hcl 5 Mg Tablet) 5 mg PO BID [facility] Last Admin: 04/09/23 09:00 Dose: 5 mg Olanzapine (Olanzapine 2.5 Mg Tablet) 2.5 mg PO TID PRN PRN Reason: agitation Last Admin: 04/08/23 09:06 Dose: 2.5 mg Olanzapine (Olanzapine 7.5 Mg Tablet) 7.5 mg PO BEDTIME [facility] Last Admin: 04/08/23 21:42 Dose: 7.5 mg Polyethylene Glycol (Polyethylene Glycol 3350 17 Gm Powd.Pack) 17 gm PO DAILY [facility] Last Admin: 04/09/23 09:02 Dose: Not Given Tramadol HCl (Tramadol Hcl 50 Mg Tablet) 50 mg PO Q6H PRN PRN Reason: Pain, Moderate(Pain Scale 4-6) Last Admin: 04/09/23 10:46 Dose: 50 mg Trazodone HCl (Trazodone Hcl 100 Mg Tablet) 100 mg PO BEDTIME [facility] Last Admin: 04/08/23 21:42 Dose: 100 mg Allergies Allergies Allergy/AdvReac Type Severity Reaction Status Date / Time pollen extracts Allergy Unknown unknown Verified 04/21/22 14:56 latex Allergy Rash Verified 10/31/22 18:30 Assessment & Plan Assessment & Plan (1) Bipolar disorder, now depressed: Status: Acute Code(s): F31.30 - Bipolar disorder, current episode depressed, mild or moderate severity, unspecified (2) Chronic back pain: Status: Acute Code(s): M54.9 - Dorsalgia, unspecified; G89.29 - Other chronic pain (3) Dementia: Status: Acute Code(s): F03.90 - Unspecified dementia, unspecified severity, without behavioral disturbance, psychotic disturbance, mood disturbance, and anxiety Plan 82 year old male with history hyperlipidemia, tubular adenoma colon, BPH, chronic normocytic anemia, 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 plan 1. Continue same treatment. 2. Waiting for placement 3. COVID positive on March 25 4. The patient is having visual hallucinations after being diagnosed with COVID, most likely due to delirium. His own p.r.n. Zyprexa regular Zyprexa night to target mood lability and psychosis. Reason for continued inpatient stay Substantial Risk for: inability to function, rapid decompensation and med/psych decompensation Time Spent With Patient Time: Total time managing care of this patient today __20__ minutes.
[2023-04-09 18:55] VITALS: BP 123/73; PULSE 74; RESP 18; TEMP 36.2; O2SAT 94
[2023-04-09] MEDS: OLANZapine 7.5 MG TABLET PO (20:17)
[2023-04-09] MEDS: traZODone HCL 100 MG TABLET PO (20:18)
[2023-04-10 06:00] VITALS: BP 112/77; PULSE 73; RESP 18; TEMP 36.2; O2SAT 94
[2023-04-10] MEDS: lamoTRIgine 100 MG TABLET PO ×2 (08:45→20:13)
[2023-04-10] MEDS: Lidocaine 4 % Patch ADH..PATCH 1 PATCH TRANSDERMA (08:45)
[2023-04-10] MEDS: polyethylene glycoL 3350 17 GM POWD.PACK PO (08:45)
[2023-04-10] MEDS: Memantine HCl 5 MG TABLET PO ×2 (08:45→20:13)
--- NOTE | 2023-04-10 09:08 | HO.PSYCHPN ---
Subjective Subjective Date of Service: 04/10/23 Reason For Visit: F31.9, F43.25 Subjective Notes: Conditional Voluntary Interim History: The nursing staff reports that he slept 8 hours, no changes in his mental status. On interview the patient denies new symptoms, waiting for placement. Mental Status Exam Mental Status Exam Patient Appearance: Appropriate Patient Orientation: Person Level of Consciousness: Disoriented Patient Behavior: Guarded Mood Description: Withdrawn Affect Description: Calm Patient Cognition Impaired: Yes Ability to Follow Directions: Good Speech Pattern: Clear Hallucinations: None Delusions: Ideas of Reference Thought Process: Distracted Thought Content: positive for [place] and positive for Poverty of Content Judgement: Fair Diagnostics Vital Signs (24Hr): Vital Signs - 24 hr 04/09/23 18:55 Temperature 97.2 F Pulse Rate 74 Respiratory Rate 18 Blood Pressure 123/73 Pulse Oximetry 94 Oxygen Delivery Method Room Air BMI result Body Mass Index 27.5 Labs 02/15/23 06:42 02/15/23 06:43 Medications Medications Current Medications Acetaminophen (Acetaminophen 325 Mg Tablet) 650 mg PO Q4H PRN PRN Reason: Fever Last Admin: 04/09/23 10:47 Dose: 650 mg Al Hydroxide/Mg Hydroxide (Magnesium Hydrox/Alum Hydrox 30 Ml Oral.Susp) 30 ml PO Q6H PRN PRN Reason: Heartburn/Nausea Artificial Tears (Artificial Tears 15 Ml Drops) 1 drop EYE-BOTH Q4H PRN PRN Reason: Dry Eyes Last Admin: 03/24/23 01:42 Dose: 1 drop Bisacodyl (Bisacodyl 5 Mg Tablet.Dr) 10 mg PO DAILY PRN PRN Reason: Constipation Last Admin: 04/01/23 09:11 Dose: 10 mg Hydroxyzine HCl (Hydroxyzine Hcl 25 Mg Tablet) 25 mg PO Q6H PRN PRN Reason: Anxiety Last Admin: 04/07/23 21:32 Dose: 25 mg Lamotrigine (Lamotrigine 100 Mg Tablet) 100 mg PO BID [facility] Last Admin: 04/10/23 08:45 Dose: 100 mg Lidocaine (Lidocaine 4 % Patch Adh..Patch) 1 patch TRANSDERMA DAILY [facility]; Protocol Last Admin: 04/10/23 08:45 Dose: 1 patch Magnesium Hydroxide (Milk Of Magnesia 30 Ml Oral.Susp) 30 ml PO DAILY PRN PRN Reason: Constipation Last Admin: 03/19/23 10:12 Dose: 30 ml Memantine (Memantine Hcl 5 Mg Tablet) 5 mg PO BID [facility] Last Admin: 04/10/23 08:45 Dose: 5 mg Olanzapine (Olanzapine 2.5 Mg Tablet) 2.5 mg PO TID PRN PRN Reason: agitation Last Admin: 04/08/23 09:06 Dose: 2.5 mg Olanzapine (Olanzapine 7.5 Mg Tablet) 7.5 mg PO BEDTIME [facility] Last Admin: 04/09/23 20:17 Dose: 7.5 mg Polyethylene Glycol (Polyethylene Glycol 3350 17 Gm Powd.Pack) 17 gm PO DAILY [facility] Last Admin: 04/10/23 08:45 Dose: 17 gm Tramadol HCl (Tramadol Hcl 50 Mg Tablet) 50 mg PO Q6H PRN PRN Reason: Pain, Moderate(Pain Scale 4-6) Last Admin: 04/09/23 10:46 Dose: 50 mg Trazodone HCl (Trazodone Hcl 100 Mg Tablet) 100 mg PO BEDTIME [facility] Last Admin: 04/09/23 20:18 Dose: 100 mg Allergies Allergies Allergy/AdvReac Type Severity Reaction Status Date / Time pollen extracts Allergy Unknown unknown Verified 04/21/22 14:56 latex Allergy Rash Verified 10/31/22 18:30 Assessment & Plan Assessment & Plan (1) Bipolar disorder, now depressed: Status: Acute Code(s): F31.30 - Bipolar disorder, current episode depressed, mild or moderate severity, unspecified (2) Chronic back pain: Status: Acute Code(s): M54.9 - Dorsalgia, unspecified; G89.29 - Other chronic pain (3) Dementia: Status: Acute Code(s): F03.90 - Unspecified dementia, unspecified severity, without behavioral disturbance, psychotic disturbance, mood disturbance, and anxiety Plan 82 year old male with history hyperlipidemia, tubular adenoma colon, BPH, chronic normocytic anemia, 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 plan 1. Continue same treatment. 2. Waiting for placement 3. COVID positive on March 25 4. The patient is having visual hallucinations after being diagnosed with COVID, most likely due to delirium. His own p.r.n. Zyprexa regular Zyprexa night to target mood lability and psychosis. Reason for continued inpatient stay Substantial Risk for: inability to function, rapid decompensation and med/psych decompensation Time Spent With Patient Time: Total time managing care of this patient today __20__ minutes.
[2023-04-10 19:40] VITALS: BP 169/74; PULSE 71; RESP 16; TEMP 35.9; O2SAT 93
[2023-04-10] MEDS: traZODone HCL 100 MG TABLET PO (20:13)
[2023-04-10] MEDS: OLANZapine 7.5 MG TABLET PO (20:13)
[2023-04-11 09:10] VITALS: BP 137/71; PULSE 75; RESP 16; TEMP 36.3; O2SAT 94
[2023-04-11] MEDS: Lidocaine 4 % Patch ADH..PATCH 1 PATCH TRANSDERMA (09:14)
[2023-04-11] MEDS: Memantine HCl 5 MG TABLET PO ×2 (09:16→20:32)
[2023-04-11] MEDS: lamoTRIgine 100 MG TABLET PO ×2 (09:16→20:32)
[2023-04-11] MEDS: polyethylene glycoL 3350 17 GM POWD.PACK PO (09:16)
--- NOTE | 2023-04-11 14:34 | HO.PSYCHPN ---
Subjective Subjective Date of Service: 04/11/23 Reason For Visit: F31.9, F43.25 Subjective Notes: Conditional Voluntary Interim History: The nursing staff reported no changes in his mental status. The director of social media marketing reported that he was been referred to the [facility]. On interview the patient denies new symptoms, waiting for placement. Mental Status Exam Mental Status Exam Patient Appearance: Well Grooomed and Appropriate Patient Orientation: Person Level of Consciousness: Awake and Appropriate Patient Behavior: Guarded and Passive Mood Description: Withdrawn Affect Description: Constricted Patient Cognition Impaired: Yes Ability to Follow Directions: Good Speech Pattern: Clear Hallucinations: None Delusions: Not Present Thought Process: Distracted and Linear Thought Content: positive for [place] and positive for Poverty of Content Judgement: Fair Diagnostics Vital Signs (24Hr): Vital Signs - 24 hr 04/10/23 19:40 04/11/23 09:10 Temperature 96.7 F L 97.4 F Pulse Rate 71 75 Respiratory Rate 16 16 Blood Pressure 169/74 H 137/71 Pulse Oximetry 93 94 Oxygen Delivery Method Room Air Room Air BMI result Body Mass Index 27.5 Labs 02/15/23 06:42 02/15/23 06:43 Medications Medications Current Medications Acetaminophen (Acetaminophen 325 Mg Tablet) 650 mg PO Q4H PRN PRN Reason: Fever Last Admin: 04/09/23 10:47 Dose: 650 mg Al Hydroxide/Mg Hydroxide (Magnesium Hydrox/Alum Hydrox 30 Ml Oral.Susp) 30 ml PO Q6H PRN PRN Reason: Heartburn/Nausea Artificial Tears (Artificial Tears 15 Ml Drops) 1 drop EYE-BOTH Q4H PRN PRN Reason: Dry Eyes Last Admin: 03/24/23 01:42 Dose: 1 drop Bisacodyl (Bisacodyl 5 Mg Tablet.Dr) 10 mg PO DAILY PRN PRN Reason: Constipation Last Admin: 04/01/23 09:11 Dose: 10 mg Hydroxyzine HCl (Hydroxyzine Hcl 25 Mg Tablet) 25 mg PO Q6H PRN PRN Reason: Anxiety Last Admin: 04/07/23 21:32 Dose: 25 mg Lamotrigine (Lamotrigine 100 Mg Tablet) 100 mg PO BID [facility] Last Admin: 04/11/23 09:16 Dose: 100 mg Lidocaine (Lidocaine 4 % Patch Adh..Patch) 1 patch TRANSDERMA DAILY [facility]; Protocol Last Admin: 04/11/23 09:14 Dose: 1 patch Magnesium Hydroxide (Milk Of Magnesia 30 Ml Oral.Susp) 30 ml PO DAILY PRN PRN Reason: Constipation Last Admin: 03/19/23 10:12 Dose: 30 ml Memantine (Memantine Hcl 5 Mg Tablet) 5 mg PO BID [facility] Last Admin: 04/11/23 09:16 Dose: 5 mg Olanzapine (Olanzapine 2.5 Mg Tablet) 2.5 mg PO TID PRN PRN Reason: agitation Last Admin: 04/08/23 09:06 Dose: 2.5 mg Olanzapine (Olanzapine 7.5 Mg Tablet) 7.5 mg PO BEDTIME [facility] Last Admin: 04/10/23 20:13 Dose: 7.5 mg Polyethylene Glycol (Polyethylene Glycol 3350 17 Gm Powd.Pack) 17 gm PO DAILY [facility] Last Admin: 04/11/23 09:16 Dose: 17 gm Tramadol HCl (Tramadol Hcl 50 Mg Tablet) 50 mg PO Q6H PRN PRN Reason: Pain, Moderate(Pain Scale 4-6) Last Admin: 04/09/23 10:46 Dose: 50 mg Trazodone HCl (Trazodone Hcl 100 Mg Tablet) 100 mg PO BEDTIME [facility] Last Admin: 04/10/23 20:13 Dose: 100 mg Allergies Allergies Allergy/AdvReac Type Severity Reaction Status Date / Time pollen extracts Allergy Unknown unknown Verified 04/21/22 14:56 latex Allergy Rash Verified 10/31/22 18:30 Assessment & Plan Assessment & Plan (1) Bipolar disorder, now depressed: Status: Acute Code(s): F31.30 - Bipolar disorder, current episode depressed, mild or moderate severity, unspecified (2) Chronic back pain: Status: Acute Code(s): M54.9 - Dorsalgia, unspecified; G89.29 - Other chronic pain (3) Dementia: Status: Acute Code(s): F03.90 - Unspecified dementia, unspecified severity, without behavioral disturbance, psychotic disturbance, mood disturbance, and anxiety Plan 82 year old male with history hyperlipidemia, tubular adenoma colon, BPH, chronic normocytic anemia, 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 plan 1. Continue same treatment. 2. Waiting for placement 3. COVID positive on March 25 4. The patient is having visual hallucinations after being diagnosed with COVID, most likely due to delirium. His own p.r.n. Zyprexa regular Zyprexa night to target mood lability and psychosis. Reason for continued inpatient stay Substantial Risk for: inability to function, rapid decompensation and med/psych decompensation Time Spent With Patient Time: Total time managing care of this patient today _20___ minutes.
[2023-04-11 18:00] VITALS: BP 159/87; PULSE 74; RESP 16; TEMP 36.2; O2SAT 95
[2023-04-11] MEDS: OLANZapine 7.5 MG TABLET PO (20:32)
[2023-04-11] MEDS: traZODone HCL 100 MG TABLET PO (20:32)
[2023-04-12 08:56] VITALS: BP 107/61; PULSE 75; RESP 16; TEMP 36.4; O2SAT 94
[2023-04-12] MEDS: lamoTRIgine 100 MG TABLET PO ×2 (08:57→20:40)
[2023-04-12] MEDS: Memantine HCl 5 MG TABLET PO ×2 (08:57→20:40)
[2023-04-12] MEDS: polyethylene glycoL 3350 17 GM POWD.PACK PO (08:59)
[2023-04-12] MEDS: Lidocaine 4 % Patch ADH..PATCH 1 PATCH TRANSDERMA (09:00)
[2023-04-12] MEDS: traMADoL HCL 50 MG TABLET PO (10:42)
--- NOTE | 2023-04-12 14:32 | HO.PSYCHPN ---
Subjective Subjective Date of Service: 04/12/23 Reason For Visit: F31.9, F43.25 Subjective Notes: Conditional Voluntary Interim History: The nursing staff reported the patient no changes in his mental status. Today the patient was complaining that he does not have a family he wants to be discharged but there is no safe discharge planning yet he is technically homeless. On interview the patient denies new symptoms, waiting for placement Mental Status Exam Mental Status Exam Patient Appearance: Well Grooomed Patient Orientation: Person Level of Consciousness: Awake Patient Behavior: Guarded and Passive Mood Description: Withdrawn Affect Description: Constricted Patient Cognition Impaired: Yes Ability to Follow Directions: Good Speech Pattern: Clear Hallucinations: None Delusions: Not Present Thought Process: Evasive and Slowed Thinking Thought Content: positive for Poverty of Content and positive for Thought Blocking Judgement: Poor Diagnostics Vital Signs (24Hr): Vital Signs - 24 hr 04/11/23 18:00 04/12/23 08:56 Temperature 97.2 F 97.6 F Pulse Rate 74 75 Respiratory Rate 16 16 Blood Pressure 159/87 H 107/61 Pulse Oximetry 95 94 Oxygen Delivery Method Room Air Room Air BMI result Body Mass Index 27.5 Labs 02/15/23 06:42 02/15/23 06:43 Medications Medications Current Medications Acetaminophen (Acetaminophen 325 Mg Tablet) 650 mg PO Q4H PRN PRN Reason: Fever Last Admin: 04/09/23 10:47 Dose: 650 mg Al Hydroxide/Mg Hydroxide (Magnesium Hydrox/Alum Hydrox 30 Ml Oral.Susp) 30 ml PO Q6H PRN PRN Reason: Heartburn/Nausea Artificial Tears (Artificial Tears 15 Ml Drops) 1 drop EYE-BOTH Q4H PRN PRN Reason: Dry Eyes Last Admin: 03/24/23 01:42 Dose: 1 drop Bisacodyl (Bisacodyl 5 Mg Tablet.Dr) 10 mg PO DAILY PRN PRN Reason: Constipation Last Admin: 04/01/23 09:11 Dose: 10 mg Hydroxyzine HCl (Hydroxyzine Hcl 25 Mg Tablet) 25 mg PO Q6H PRN PRN Reason: Anxiety Last Admin: 04/07/23 21:32 Dose: 25 mg Lamotrigine (Lamotrigine 100 Mg Tablet) 100 mg PO BID [facility] Last Admin: 04/12/23 08:57 Dose: 100 mg Lidocaine (Lidocaine 4 % Patch Adh..Patch) 1 patch TRANSDERMA DAILY [facility]; Protocol Last Admin: 04/12/23 09:00 Dose: 1 patch Magnesium Hydroxide (Milk Of Magnesia 30 Ml Oral.Susp) 30 ml PO DAILY PRN PRN Reason: Constipation Last Admin: 03/19/23 10:12 Dose: 30 ml Memantine (Memantine Hcl 5 Mg Tablet) 5 mg PO BID [facility] Last Admin: 04/12/23 08:57 Dose: 5 mg Olanzapine (Olanzapine 2.5 Mg Tablet) 2.5 mg PO TID PRN PRN Reason: agitation Last Admin: 04/08/23 09:06 Dose: 2.5 mg Olanzapine (Olanzapine 7.5 Mg Tablet) 7.5 mg PO BEDTIME [facility] Last Admin: 04/11/23 20:32 Dose: 7.5 mg Polyethylene Glycol (Polyethylene Glycol 3350 17 Gm Powd.Pack) 17 gm PO DAILY [facility] Last Admin: 04/12/23 08:59 Dose: 17 gm Tramadol HCl (Tramadol Hcl 50 Mg Tablet) 50 mg PO Q6H PRN PRN Reason: Pain, Moderate(Pain Scale 4-6) Last Admin: 04/12/23 10:42 Dose: 50 mg Trazodone HCl (Trazodone Hcl 100 Mg Tablet) 100 mg PO BEDTIME [facility] Last Admin: 04/11/23 20:32 Dose: 100 mg Allergies Allergies Allergy/AdvReac Type Severity Reaction Status Date / Time pollen extracts Allergy Unknown unknown Verified 04/21/22 14:56 latex Allergy Rash Verified 10/31/22 18:30 Assessment & Plan Assessment & Plan (1) Bipolar disorder, now depressed: Status: Acute Code(s): F31.30 - Bipolar disorder, current episode depressed, mild or moderate severity, unspecified (2) Chronic back pain: Status: Acute Code(s): M54.9 - Dorsalgia, unspecified; G89.29 - Other chronic pain (3) Dementia: Status: Acute Code(s): F03.90 - Unspecified dementia, unspecified severity, without behavioral disturbance, psychotic disturbance, mood disturbance, and anxiety Plan 82 year old male with history hyperlipidemia, tubular adenoma colon, BPH, chronic normocytic anemia, 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 plan 1. Continue same treatment. 2. Waiting for placement 3. COVID positive on March 25 4. The patient is having visual hallucinations after being diagnosed with COVID, most likely due to delirium. His own p.r.n. Zyprexa regular Zyprexa night to target mood lability and psychosis. Reason for continued inpatient stay Substantial Risk for: inability to function, rapid decompensation and med/psych decompensation Time Spent With Patient Time: Total time managing care of this patient today __20__ minutes.
[2023-04-12 19:35] VITALS: BP 138/60; PULSE 77; RESP 18; TEMP 36.6; O2SAT 95
[2023-04-12] MEDS: traZODone HCL 100 MG TABLET PO (20:40)
[2023-04-12] MEDS: OLANZapine 7.5 MG TABLET PO (20:41)
[2023-04-13 08:22] VITALS: BP 110/61; PULSE 77; RESP 18; TEMP 36.2; O2SAT 94
[2023-04-13] MEDS: lamoTRIgine 100 MG TABLET PO ×2 (08:30→21:04)
[2023-04-13] MEDS: traMADoL HCL 50 MG TABLET PO ×2 (08:30→21:05)
[2023-04-13] MEDS: Memantine HCl 5 MG TABLET PO ×2 (08:30→21:05)
[2023-04-13] MEDS: Lidocaine 4 % Patch ADH..PATCH 1 PATCH TRANSDERMA (08:33)
--- NOTE | 2023-04-13 09:52 | P.PNPSI_ITS ---
Subjective Subjective Date of Service: 04/13/23 Reason For Visit: F31.9, F43.25 Subjective Notes: Conditional Voluntary Interim History: The nursing staff reported the patient had been compliant with treatment confused but easily redirectable. On interview the patient denies new symptoms, waiting for placement. Mental Status Exam Mental Status Exam Patient Appearance: Well Grooomed and Appropriate Patient Orientation: Person and Situation Level of Consciousness: Awake and Appropriate Patient Behavior: Guarded and Passive Mood Description: Withdrawn Affect Description: Constricted Patient Cognition Impaired: Yes Ability to Follow Directions: Good Speech Pattern: Clear Hallucinations: None Delusions: Not Present Thought Process: Distracted and Slowed Thinking Thought Content: positive for [place] and positive for Poverty of Content Diagnostics Vital Signs (24Hr): Vital Signs - 24 hr 04/12/23 19:35 04/13/23 08:22 Temperature 97.8 F 97.1 F Pulse Rate 77 77 Respiratory Rate 18 18 Blood Pressure 138/60 110/61 Pulse Oximetry 95 94 Oxygen Delivery Method Room Air Room Air BMI result Body Mass Index 27.5 Labs 02/15/23 06:42 02/15/23 06:43 Medications Medications Current Medications Acetaminophen (Acetaminophen 325 Mg Tablet) 650 mg PO Q4H PRN PRN Reason: Fever Last Admin: 04/09/23 10:47 Dose: 650 mg Al Hydroxide/Mg Hydroxide (Magnesium Hydrox/Alum Hydrox 30 Ml Oral.Susp) 30 ml PO Q6H PRN PRN Reason: Heartburn/Nausea Artificial Tears (Artificial Tears 15 Ml Drops) 1 drop EYE-BOTH Q4H PRN PRN Reason: Dry Eyes Last Admin: 03/24/23 01:42 Dose: 1 drop Bisacodyl (Bisacodyl 5 Mg Tablet.Dr) 10 mg PO DAILY PRN PRN Reason: Constipation Last Admin: 04/01/23 09:11 Dose: 10 mg Hydroxyzine HCl (Hydroxyzine Hcl 25 Mg Tablet) 25 mg PO Q6H PRN PRN Reason: Anxiety Last Admin: 04/07/23 21:32 Dose: 25 mg Lamotrigine (Lamotrigine 100 Mg Tablet) 100 mg PO BID [facility] Last Admin: 04/13/23 08:30 Dose: 100 mg Lidocaine (Lidocaine 4 % Patch Adh..Patch) 1 patch TRANSDERMA DAILY [facility]; Protocol Last Admin: 04/13/23 08:33 Dose: 1 patch Magnesium Hydroxide (Milk Of Magnesia 30 Ml Oral.Susp) 30 ml PO DAILY PRN PRN Reason: Constipation Last Admin: 03/19/23 10:12 Dose: 30 ml Memantine (Memantine Hcl 5 Mg Tablet) 5 mg PO BID [facility] Last Admin: 04/13/23 08:30 Dose: 5 mg Olanzapine (Olanzapine 2.5 Mg Tablet) 2.5 mg PO TID PRN PRN Reason: agitation Last Admin: 04/08/23 09:06 Dose: 2.5 mg Olanzapine (Olanzapine 7.5 Mg Tablet) 7.5 mg PO BEDTIME [facility] Last Admin: 04/12/23 20:41 Dose: 7.5 mg Polyethylene Glycol (Polyethylene Glycol 3350 17 Gm Powd.Pack) 17 gm PO DAILY [facility] Last Admin: 04/13/23 08:34 Dose: Not Given Tramadol HCl (Tramadol Hcl 50 Mg Tablet) 50 mg PO Q6H PRN PRN Reason: Pain, Moderate(Pain Scale 4-6) Last Admin: 04/13/23 08:30 Dose: 50 mg Trazodone HCl (Trazodone Hcl 100 Mg Tablet) 100 mg PO BEDTIME [facility] Last Admin: 04/12/23 20:40 Dose: 100 mg Allergies Allergies Allergy/AdvReac Type Severity Reaction Status Date / Time pollen extracts Allergy Unknown unknown Verified 04/21/22 14:56 latex Allergy Rash Verified 10/31/22 18:30 Assessment & Plan Assessment & Plan (1) Bipolar disorder, now depressed: Status: Acute Code(s): F31.30 - Bipolar disorder, current episode depressed, mild or moderate severity, unspecified (2) Chronic back pain: Status: Acute Code(s): M54.9 - Dorsalgia, unspecified; G89.29 - Other chronic pain (3) Dementia: Status: Acute Code(s): F03.90 - Unspecified dementia, unspecified severity, without behavioral disturbance, psychotic disturbance, mood disturbance, and anxiety Plan 82 year old male with history hyperlipidemia, tubular adenoma colon, BPH, chronic normocytic anemia, 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 plan 1. Continue same treatment. 2. Waiting for placement 3. COVID positive on March 25 4. The patient is having visual hallucinations after being diagnosed with COVID, most likely due to delirium. His own p.r.n. Zyprexa regular Zyprexa night to target mood lability and psychosis. Reason for continued inpatient stay Substantial Risk for: inability to function, rapid decompensation and med/psych decompensation Time Spent With Patient Time: Total time managing care of this patient today __20__ minutes.
[2023-04-13] MEDS: polyethylene glycoL 3350 17 GM POWD.PACK PO (11:01)
[2023-04-13 19:45] VITALS: BP 129/62; PULSE 64; RESP 18; TEMP 37; O2SAT 98
[2023-04-13] MEDS: OLANZapine 7.5 MG TABLET PO (21:04)
[2023-04-13] MEDS: traZODone HCL 100 MG TABLET PO (21:05)
[2023-04-14 08:15] VITALS: BP 107/63; PULSE 71; RESP 18; TEMP 36.4; O2SAT 95
[2023-04-14] MEDS: Memantine HCl 5 MG TABLET PO ×2 (08:36→20:55)
[2023-04-14] MEDS: traMADoL HCL 50 MG TABLET PO ×2 (08:36→23:42)
[2023-04-14] MEDS: lamoTRIgine 100 MG TABLET PO ×2 (08:36→20:55)
[2023-04-14] MEDS: polyethylene glycoL 3350 17 GM POWD.PACK PO (08:37)
[2023-04-14] MEDS: Lidocaine 4 % Patch ADH..PATCH 1 PATCH TRANSDERMA (08:37)
--- NOTE | 2023-04-14 11:33 | HO.PSYCHPN ---
Subjective Subjective Date of Service: 04/14/23 Reason For Visit: F31.9, F43.25 Subjective Notes: Conditional Voluntary Interim History: The nursing staff reported the patient had been compliant with treatment no changes in his mental status. On interview the patient is pleasantly confused easily redirectable dysphoric at times. He is aware that he does not have social support. Mental Status Exam Mental Status Exam Patient Appearance: Well Grooomed and Appropriate Patient Orientation: Person and Situation Level of Consciousness: Awake and Alert Patient Behavior: Guarded and Passive Mood Description: Withdrawn Affect Description: Constricted Patient Cognition Impaired: Yes Ability to Follow Directions: Good Speech Pattern: Clear Hallucinations: None Delusions: Ideas of Reference Thought Process: Distracted and Slowed Thinking Thought Content: positive for [place] and positive for Poverty of Content Judgement: Fair Diagnostics Vital Signs (24Hr): Vital Signs - 24 hr 04/13/23 19:45 04/14/23 08:15 Temperature 98.6 F 97.5 F Pulse Rate 64 71 Respiratory Rate 18 18 Blood Pressure 129/62 107/63 Pulse Oximetry 98 95 Oxygen Delivery Method Room Air Room Air BMI result Body Mass Index 27.5 Labs 02/15/23 06:42 02/15/23 06:43 Medications Medications Current Medications Acetaminophen (Acetaminophen 325 Mg Tablet) 650 mg PO Q4H PRN PRN Reason: Fever Last Admin: 04/09/23 10:47 Dose: 650 mg Al Hydroxide/Mg Hydroxide (Magnesium Hydrox/Alum Hydrox 30 Ml Oral.Susp) 30 ml PO Q6H PRN PRN Reason: Heartburn/Nausea Artificial Tears (Artificial Tears 15 Ml Drops) 1 drop EYE-BOTH Q4H PRN PRN Reason: Dry Eyes Last Admin: 03/24/23 01:42 Dose: 1 drop Bisacodyl (Bisacodyl 5 Mg Tablet.Dr) 10 mg PO DAILY PRN PRN Reason: Constipation Last Admin: 04/01/23 09:11 Dose: 10 mg Hydroxyzine HCl (Hydroxyzine Hcl 25 Mg Tablet) 25 mg PO Q6H PRN PRN Reason: Anxiety Last Admin: 04/07/23 21:32 Dose: 25 mg Lamotrigine (Lamotrigine 100 Mg Tablet) 100 mg PO BID [facility] Last Admin: 04/14/23 08:36 Dose: 100 mg Lidocaine (Lidocaine 4 % Patch Adh..Patch) 1 patch TRANSDERMA DAILY [facility]; Protocol Last Admin: 04/14/23 08:37 Dose: 1 patch Magnesium Hydroxide (Milk Of Magnesia 30 Ml Oral.Susp) 30 ml PO DAILY PRN PRN Reason: Constipation Last Admin: 03/19/23 10:12 Dose: 30 ml Memantine (Memantine Hcl 5 Mg Tablet) 5 mg PO BID [facility] Last Admin: 04/14/23 08:36 Dose: 5 mg Olanzapine (Olanzapine 2.5 Mg Tablet) 2.5 mg PO TID PRN PRN Reason: agitation Last Admin: 04/08/23 09:06 Dose: 2.5 mg Olanzapine (Olanzapine 7.5 Mg Tablet) 7.5 mg PO BEDTIME [facility] Last Admin: 04/13/23 21:04 Dose: 7.5 mg Polyethylene Glycol (Polyethylene Glycol 3350 17 Gm Powd.Pack) 17 gm PO DAILY [facility] Last Admin: 04/14/23 08:37 Dose: 17 gm Tramadol HCl (Tramadol Hcl 50 Mg Tablet) 50 mg PO Q6H PRN PRN Reason: Pain, Moderate(Pain Scale 4-6) Last Admin: 04/14/23 08:36 Dose: 50 mg Trazodone HCl (Trazodone Hcl 100 Mg Tablet) 100 mg PO BEDTIME [facility] Last Admin: 04/13/23 21:05 Dose: 100 mg Allergies Allergies Allergy/AdvReac Type Severity Reaction Status Date / Time pollen extracts Allergy Unknown unknown Verified 04/21/22 14:56 latex Allergy Rash Verified 10/31/22 18:30 Assessment & Plan Assessment & Plan (1) Bipolar disorder, now depressed: Status: Acute Code(s): F31.30 - Bipolar disorder, current episode depressed, mild or moderate severity, unspecified (2) Chronic back pain: Status: Acute Code(s): M54.9 - Dorsalgia, unspecified; G89.29 - Other chronic pain (3) Dementia: Status: Acute Code(s): F03.90 - Unspecified dementia, unspecified severity, without behavioral disturbance, psychotic disturbance, mood disturbance, and anxiety Plan 82 year old male with history hyperlipidemia, tubular adenoma colon, BPH, chronic normocytic anemia, 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 plan 1. Continue same treatment. 2. Waiting for placement 3. COVID positive on March 25 4. The patient is having visual hallucinations after being diagnosed with COVID, most likely due to delirium. His own p.r.n. Zyprexa regular Zyprexa night to target mood lability and psychosis. Reason for continued inpatient stay Substantial Risk for: inability to function, rapid decompensation and med/psych decompensation Time Spent With Patient Time: Total time managing care of this patient today _20___ minutes.
[2023-04-14 18:00] VITALS: BP 103/54; PULSE 73; RESP 16; TEMP 37.1; O2SAT 95
[2023-04-14] MEDS: traZODone HCL 100 MG TABLET PO (20:55)
[2023-04-14] MEDS: OLANZapine 7.5 MG TABLET PO (20:55)
[2023-04-14] MEDS: hydrOXYzine HCL 25 MG TABLET PO (23:42)
[2023-04-15 08:28] VITALS: BP 115/67; PULSE 75; RESP 16; TEMP 36.4; O2SAT 95
[2023-04-15] MEDS: Lidocaine 4 % Patch ADH..PATCH 1 PATCH TRANSDERMA (08:29)
[2023-04-15] MEDS: polyethylene glycoL 3350 17 GM POWD.PACK PO (08:31)
[2023-04-15] MEDS: lamoTRIgine 100 MG TABLET PO (08:31)
[2023-04-15] MEDS: Memantine HCl 5 MG TABLET PO (08:31)
--- NOTE | 2023-04-15 16:03 | HO.PSYCHPN ---
Subjective Subjective Date of Service: 04/15/23 Reason For Visit: F31.9, F43.25 Subjective Notes: Conditional Voluntary Interim History: The nursing staff reported the patient had been pleasant confused no changes in his mental status. The director of social media marketing reported that Danny Hernandez is looking to his financial clearance and possibly he will be accepted. On interview the patient denies new symptoms, waiting for placement. Mental Status Exam Mental Status Exam Patient Appearance: Appropriate Patient Orientation: Person Level of Consciousness: Awake Patient Behavior: Guarded and Passive Mood Description: Calm Affect Description: Constricted Patient Cognition Impaired: Yes Ability to Follow Directions: Good Speech Pattern: Clear Hallucinations: None Delusions: Not Present Thought Process: Distracted and Evasive Thought Content: positive for [place] and positive for Poverty of Content Judgement: Fair Diagnostics Vital Signs (24Hr): Vital Signs - 24 hr 04/14/23 18:00 04/15/23 08:28 Temperature 98.8 F 97.5 F Pulse Rate 73 75 Respiratory Rate 16 16 Blood Pressure 103/54 L 115/67 Pulse Oximetry 95 95 Oxygen Delivery Method Room Air BMI result Body Mass Index 27.5 Labs 02/15/23 06:42 02/15/23 06:43 Medications Medications Current Medications Acetaminophen (Acetaminophen 325 Mg Tablet) 650 mg PO Q4H PRN PRN Reason: Fever Last Admin: 04/09/23 10:47 Dose: 650 mg Al Hydroxide/Mg Hydroxide (Magnesium Hydrox/Alum Hydrox 30 Ml Oral.Susp) 30 ml PO Q6H PRN PRN Reason: Heartburn/Nausea Artificial Tears (Artificial Tears 15 Ml Drops) 1 drop EYE-BOTH Q4H PRN PRN Reason: Dry Eyes Last Admin: 03/24/23 01:42 Dose: 1 drop Bisacodyl (Bisacodyl 5 Mg Tablet.Dr) 10 mg PO DAILY PRN PRN Reason: Constipation Last Admin: 04/01/23 09:11 Dose: 10 mg Hydroxyzine HCl (Hydroxyzine Hcl 25 Mg Tablet) 25 mg PO Q6H PRN PRN Reason: Anxiety Last Admin: 04/14/23 23:42 Dose: 25 mg Lamotrigine (Lamotrigine 100 Mg Tablet) 100 mg PO BID [facility] Last Admin: 04/15/23 08:31 Dose: 100 mg Lidocaine (Lidocaine 4 % Patch Adh..Patch) 1 patch TRANSDERMA DAILY [facility]; Protocol Last Admin: 04/15/23 08:29 Dose: 1 patch Magnesium Hydroxide (Milk Of Magnesia 30 Ml Oral.Susp) 30 ml PO DAILY PRN PRN Reason: Constipation Last Admin: 03/19/23 10:12 Dose: 30 ml Memantine (Memantine Hcl 5 Mg Tablet) 5 mg PO BID [facility] Last Admin: 04/15/23 08:31 Dose: 5 mg Olanzapine (Olanzapine 2.5 Mg Tablet) 2.5 mg PO TID PRN PRN Reason: agitation Last Admin: 04/08/23 09:06 Dose: 2.5 mg Olanzapine (Olanzapine 7.5 Mg Tablet) 7.5 mg PO BEDTIME [facility] Last Admin: 04/14/23 20:55 Dose: 7.5 mg Polyethylene Glycol (Polyethylene Glycol 3350 17 Gm Powd.Pack) 17 gm PO DAILY [facility] Last Admin: 04/15/23 08:31 Dose: 17 gm Tramadol HCl (Tramadol Hcl 50 Mg Tablet) 50 mg PO Q6H PRN PRN Reason: Pain, Moderate(Pain Scale 4-6) Last Admin: 04/14/23 23:42 Dose: 50 mg Trazodone HCl (Trazodone Hcl 100 Mg Tablet) 100 mg PO BEDTIME [facility] Last Admin: 04/14/23 20:55 Dose: 100 mg Allergies Allergies Allergy/AdvReac Type Severity Reaction Status Date / Time pollen extracts Allergy Unknown unknown Verified 04/21/22 14:56 latex Allergy Rash Verified 10/31/22 18:30 Assessment & Plan Assessment & Plan (1) Bipolar disorder, now depressed: Status: Acute Code(s): F31.30 - Bipolar disorder, current episode depressed, mild or moderate severity, unspecified (2) Chronic back pain: Status: Acute Code(s): M54.9 - Dorsalgia, unspecified; G89.29 - Other chronic pain (3) Dementia: Status: Acute Code(s): F03.90 - Unspecified dementia, unspecified severity, without behavioral disturbance, psychotic disturbance, mood disturbance, and anxiety Plan 82 year old male with history hyperlipidemia, tubular adenoma colon, BPH, chronic normocytic anemia, 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 plan 1. Continue same treatment. 2. Waiting for placement 3. COVID positive on March 25 4. The patient is having visual hallucinations after being diagnosed with COVID, most likely due to delirium. His own p.r.n. Zyprexa regular Zyprexa night to target mood lability and psychosis. Reason for continued inpatient stay Substantial Risk for: inability to function, rapid decompensation and med/psych decompensation Time Spent With Patient Time: Total time managing care of this patient today __20__ minutes.
--- NOTE | 2023-04-16 08:26 | HO.PSYCHPN ---
Subjective Subjective Date of Service: 04/16/23 Reason For Visit: F31.9, F43.25 Subjective Notes: Conditional Voluntary Interim History: The nursing staff reported the patient had been pleasantly confused no changes in his mental status he slept 8 hours and he had been eating well. On interview the patient denies new symptoms, waiting for placement. Mental Status Exam Mental Status Exam Patient Appearance: Appropriate Patient Orientation: Person Level of Consciousness: Awake Patient Behavior: Guarded and Passive Mood Description: Withdrawn Affect Description: Constricted Patient Cognition Impaired: Yes Ability to Follow Directions: Fair Speech Pattern: Clear Hallucinations: None Delusions: Not Present Thought Process: Distracted and Slowed Thinking Thought Content: positive for [place] and positive for Poverty of Content Judgement: Fair Diagnostics Vital Signs (24Hr): Vital Signs - 24 hr 04/15/23 08:28 Temperature 97.5 F Pulse Rate 75 Respiratory Rate 16 Blood Pressure 115/67 Pulse Oximetry 95 Oxygen Delivery Method Room Air BMI result Body Mass Index 27.5 Labs 02/15/23 06:42 02/15/23 06:43 Medications Medications Current Medications Acetaminophen (Acetaminophen 325 Mg Tablet) 650 mg PO Q4H PRN PRN Reason: Fever Last Admin: 04/09/23 10:47 Dose: 650 mg Al Hydroxide/Mg Hydroxide (Magnesium Hydrox/Alum Hydrox 30 Ml Oral.Susp) 30 ml PO Q6H PRN PRN Reason: Heartburn/Nausea Artificial Tears (Artificial Tears 15 Ml Drops) 1 drop EYE-BOTH Q4H PRN PRN Reason: Dry Eyes Last Admin: 03/24/23 01:42 Dose: 1 drop Bisacodyl (Bisacodyl 5 Mg Tablet.Dr) 10 mg PO DAILY PRN PRN Reason: Constipation Last Admin: 04/01/23 09:11 Dose: 10 mg Hydroxyzine HCl (Hydroxyzine Hcl 25 Mg Tablet) 25 mg PO Q6H PRN PRN Reason: Anxiety Last Admin: 04/14/23 23:42 Dose: 25 mg Lamotrigine (Lamotrigine 100 Mg Tablet) 100 mg PO BID [facility] Last Admin: 04/15/23 23:26 Dose: Not Given Lidocaine (Lidocaine 4 % Patch Adh..Patch) 1 patch TRANSDERMA DAILY [facility]; Protocol Last Admin: 04/15/23 08:29 Dose: 1 patch Magnesium Hydroxide (Milk Of Magnesia 30 Ml Oral.Susp) 30 ml PO DAILY PRN PRN Reason: Constipation Last Admin: 03/19/23 10:12 Dose: 30 ml Memantine (Memantine Hcl 5 Mg Tablet) 5 mg PO BID [facility] Last Admin: 04/15/23 23:26 Dose: Not Given Olanzapine (Olanzapine 2.5 Mg Tablet) 2.5 mg PO TID PRN PRN Reason: agitation Last Admin: 04/08/23 09:06 Dose: 2.5 mg Olanzapine (Olanzapine 7.5 Mg Tablet) 7.5 mg PO BEDTIME [facility] Last Admin: 04/15/23 23:27 Dose: Not Given Polyethylene Glycol (Polyethylene Glycol 3350 17 Gm Powd.Pack) 17 gm PO DAILY [facility] Last Admin: 04/15/23 08:31 Dose: 17 gm Tramadol HCl (Tramadol Hcl 50 Mg Tablet) 50 mg PO Q6H PRN PRN Reason: Pain, Moderate(Pain Scale 4-6) Last Admin: 04/14/23 23:42 Dose: 50 mg Trazodone HCl (Trazodone Hcl 100 Mg Tablet) 100 mg PO BEDTIME [facility] Last Admin: 04/15/23 23:27 Dose: Not Given Allergies Allergies Allergy/AdvReac Type Severity Reaction Status Date / Time pollen extracts Allergy Unknown unknown Verified 04/21/22 14:56 latex Allergy Rash Verified 10/31/22 18:30 Assessment & Plan Assessment & Plan (1) Bipolar disorder, now depressed: Status: Acute Code(s): F31.30 - Bipolar disorder, current episode depressed, mild or moderate severity, unspecified (2) Chronic back pain: Status: Acute Code(s): M54.9 - Dorsalgia, unspecified; G89.29 - Other chronic pain (3) Dementia: Status: Acute Code(s): F03.90 - Unspecified dementia, unspecified severity, without behavioral disturbance, psychotic disturbance, mood disturbance, and anxiety Plan 82 year old male with history hyperlipidemia, tubular adenoma colon, BPH, chronic normocytic anemia, 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 plan 1. Continue same treatment. 2. Waiting for placement 3. COVID positive on March 25 4. The patient is having visual hallucinations after being diagnosed with COVID, most likely due to delirium. His own p.r.n. Zyprexa regular Zyprexa night to target mood lability and psychosis. Reason for continued inpatient stay Substantial Risk for: inability to function, rapid decompensation and med/psych decompensation Time Spent With Patient Time: Total time managing care of this patient today __20__ minutes.
[2023-04-16 08:32] VITALS: BP 114/65; PULSE 70; RESP 16; TEMP 36.2; O2SAT 94
[2023-04-16] MEDS: Lidocaine 4 % Patch ADH..PATCH 1 PATCH TRANSDERMA (08:34)
[2023-04-16] MEDS: lamoTRIgine 100 MG TABLET PO ×2 (08:34→21:22)
[2023-04-16] MEDS: Memantine HCl 5 MG TABLET PO ×2 (08:34→21:21)
[2023-04-16] MEDS: polyethylene glycoL 3350 17 GM POWD.PACK PO (08:34)
[2023-04-16 18:00] VITALS: BP 117/76; PULSE 78; RESP 16; TEMP 36.6; O2SAT 95
[2023-04-16] MEDS: OLANZapine 7.5 MG TABLET PO (21:21)
[2023-04-16] MEDS: traZODone HCL 100 MG TABLET PO (21:21)
[2023-04-17 08:28] VITALS: BP 117/65; PULSE 67; RESP 16; TEMP 36.1; O2SAT 94
[2023-04-17] MEDS: polyethylene glycoL 3350 17 GM POWD.PACK PO (08:31)
[2023-04-17] MEDS: Memantine HCl 5 MG TABLET PO ×2 (08:31→20:55)
[2023-04-17] MEDS: lamoTRIgine 100 MG TABLET PO ×2 (08:31→20:55)
[2023-04-17] MEDS: Lidocaine 4 % Patch ADH..PATCH 1 PATCH TRANSDERMA (08:33)
[2023-04-17] MEDS: traMADoL HCL 50 MG TABLET PO (08:38)
--- NOTE | 2023-04-17 14:45 | P.PNPSI_ITS ---
Subjective Subjective Date of Service: 04/17/23 Reason For Visit: F31.9, F43.25 Subjective Notes: Conditional Voluntary Interim History: The nursing staff reported the patient had been wandering in the common unit, confused at times. The social service technician reported that he had been accepted at [facility] but financially has not been cleared. On interview the patient denies new symptoms, waiting for placement. Mental Status Exam Mental Status Exam Patient Appearance: Well Grooomed Patient Orientation: Person and Situation Level of Consciousness: Awake Patient Behavior: Guarded and Passive Mood Description: Withdrawn Affect Description: Constricted Patient Cognition Impaired: Yes Ability to Follow Directions: Good Speech Pattern: Clear Hallucinations: None Delusions: Ideas of Reference Thought Process: Distracted and Slowed Thinking Thought Content: positive for [place] and positive for Poverty of Content Judgement: Fair Diagnostics Vital Signs (24Hr): Vital Signs - 24 hr 04/16/23 18:00 04/17/23 08:28 Temperature 97.8 F 97 F Pulse Rate 78 67 Respiratory Rate 16 16 Blood Pressure 117/76 117/65 Pulse Oximetry 95 94 Oxygen Delivery Method Room Air Room Air BMI result Body Mass Index 27.5 Labs 02/15/23 06:42 02/15/23 06:43 Medications Medications Current Medications Acetaminophen (Acetaminophen 325 Mg Tablet) 650 mg PO Q4H PRN PRN Reason: Fever Last Admin: 04/09/23 10:47 Dose: 650 mg Al Hydroxide/Mg Hydroxide (Magnesium Hydrox/Alum Hydrox 30 Ml Oral.Susp) 30 ml PO Q6H PRN PRN Reason: Heartburn/Nausea Artificial Tears (Artificial Tears 15 Ml Drops) 1 drop EYE-BOTH Q4H PRN PRN Reason: Dry Eyes Last Admin: 03/24/23 01:42 Dose: 1 drop Bisacodyl (Bisacodyl 5 Mg Tablet.Dr) 10 mg PO DAILY PRN PRN Reason: Constipation Last Admin: 04/01/23 09:11 Dose: 10 mg Hydroxyzine HCl (Hydroxyzine Hcl 25 Mg Tablet) 25 mg PO Q6H PRN PRN Reason: Anxiety Last Admin: 04/14/23 23:42 Dose: 25 mg Lamotrigine (Lamotrigine 100 Mg Tablet) 100 mg PO BID [facility] Last Admin: 04/17/23 08:31 Dose: 100 mg Lidocaine (Lidocaine 4 % Patch Adh..Patch) 1 patch TRANSDERMA DAILY [facility]; Protocol Last Admin: 04/17/23 08:33 Dose: 1 patch Magnesium Hydroxide (Milk Of Magnesia 30 Ml Oral.Susp) 30 ml PO DAILY PRN PRN Reason: Constipation Last Admin: 03/19/23 10:12 Dose: 30 ml Memantine (Memantine Hcl 5 Mg Tablet) 5 mg PO BID [facility] Last Admin: 04/17/23 08:31 Dose: 5 mg Olanzapine (Olanzapine 2.5 Mg Tablet) 2.5 mg PO TID PRN PRN Reason: agitation Last Admin: 04/08/23 09:06 Dose: 2.5 mg Olanzapine (Olanzapine 7.5 Mg Tablet) 7.5 mg PO BEDTIME [facility] Last Admin: 04/16/23 21:21 Dose: 7.5 mg Polyethylene Glycol (Polyethylene Glycol 3350 17 Gm Powd.Pack) 17 gm PO DAILY [facility] Last Admin: 04/17/23 08:31 Dose: 17 gm Tramadol HCl (Tramadol Hcl 50 Mg Tablet) 50 mg PO Q6H PRN PRN Reason: Pain, Moderate(Pain Scale 4-6) Last Admin: 04/17/23 08:38 Dose: 50 mg Trazodone HCl (Trazodone Hcl 100 Mg Tablet) 100 mg PO BEDTIME [facility] Last Admin: 04/16/23 21:21 Dose: 100 mg Allergies Allergies Allergy/AdvReac Type Severity Reaction Status Date / Time pollen extracts Allergy Unknown unknown Verified 04/21/22 14:56 latex Allergy Rash Verified 10/31/22 18:30 Assessment & Plan Assessment & Plan (1) Bipolar disorder, now depressed: Status: Acute Code(s): F31.30 - Bipolar disorder, current episode depressed, mild or moderate severity, unspecified (2) Chronic back pain: Status: Acute Code(s): M54.9 - Dorsalgia, unspecified; G89.29 - Other chronic pain (3) Dementia: Status: Acute Code(s): F03.90 - Unspecified dementia, unspecified severity, without behavioral disturbance, psychotic disturbance, mood disturbance, and anxiety Plan 82 year old male with history hyperlipidemia, tubular adenoma colon, BPH, chronic normocytic anemia, 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 plan 1. Continue same treatment. 2. Waiting for placement 3. COVID positive on March 25 4. The patient is having visual hallucinations after being diagnosed with COVID, most likely due to delirium. His own p.r.n. Zyprexa regular Zyprexa night to target mood lability and psychosis. Reason for continued inpatient stay Substantial Risk for: inability to function, rapid decompensation and med/psych decompensation Time Spent With Patient Time: Total time managing care of this patient today __20__ minutes.
[2023-04-17 18:00] VITALS: BP 109/55; PULSE 76; RESP 18; TEMP 37.2; O2SAT 95
[2023-04-17] MEDS: traZODone HCL 100 MG TABLET PO (20:55)
[2023-04-17] MEDS: OLANZapine 7.5 MG TABLET PO (20:55)
[2023-04-17] MEDS: Acetaminophen 325 MG TABLET 650 MG PO (23:36)
[2023-04-17] MEDS: hydrOXYzine HCL 25 MG TABLET PO (23:36)
[2023-04-17] MEDS: OLANZapine 2.5 MG TABLET PO (23:36)
[2023-04-18 07:00] VITALS: BMI 26.6
[2023-04-18 07:48] VITALS: BP 103/64; PULSE 65; RESP 16; TEMP 36.5; O2SAT 96
[2023-04-18] MEDS: lamoTRIgine 100 MG TABLET PO ×2 (08:10→20:44)
[2023-04-18] MEDS: Memantine HCl 5 MG TABLET PO ×2 (08:10→20:45)
[2023-04-18] MEDS: polyethylene glycoL 3350 17 GM POWD.PACK PO (08:10)
[2023-04-18] MEDS: traMADoL HCL 50 MG TABLET PO (09:58)
[2023-04-18] MEDS: Acetaminophen 325 MG TABLET 650 MG PO (14:23)
--- NOTE | 2023-04-18 14:28 | HO.PSYCHPN ---
Subjective Subjective Date of Service: 04/18/23 Reason For Visit: F31.9, F43.25 Subjective Notes: Conditional Voluntary Interim History: The nursing staff reported no changes in his mental status, he is taking tramadol p.r.n.. On interview the patient is confused easily redirectable, waiting for placement. Mental Status Exam Mental Status Exam Patient Appearance: Appropriate Patient Orientation: Person and Situation Level of Consciousness: Awake Patient Behavior: Guarded and Passive Mood Description: Withdrawn Affect Description: Constricted Patient Cognition Impaired: Yes Ability to Follow Directions: Good Speech Pattern: Clear Hallucinations: None Delusions: Ideas of Reference Thought Process: Distracted and Linear Thought Content: positive for [place] and positive for Poverty of Content Judgement: Fair Diagnostics Vital Signs (24Hr): Vital Signs - 24 hr 04/17/23 18:00 04/18/23 07:48 Temperature 98.9 F 97.7 F Pulse Rate 76 65 Respiratory Rate 18 16 Blood Pressure 109/55 L 103/64 Pulse Oximetry 95 96 Oxygen Delivery Method Room Air Room Air BMI result Body Mass Index 26.6 Labs 02/15/23 06:42 02/15/23 06:43 Medications Medications Current Medications Acetaminophen (Acetaminophen 325 Mg Tablet) 650 mg PO Q4H PRN PRN Reason: Fever Last Admin: 04/18/23 14:23 Dose: 650 mg Al Hydroxide/Mg Hydroxide (Magnesium Hydrox/Alum Hydrox 30 Ml Oral.Susp) 30 ml PO Q6H PRN PRN Reason: Heartburn/Nausea Artificial Tears (Artificial Tears 15 Ml Drops) 1 drop EYE-BOTH Q4H PRN PRN Reason: Dry Eyes Last Admin: 03/24/23 01:42 Dose: 1 drop Bisacodyl (Bisacodyl 5 Mg Tablet.Dr) 10 mg PO DAILY PRN PRN Reason: Constipation Last Admin: 04/01/23 09:11 Dose: 10 mg Hydroxyzine HCl (Hydroxyzine Hcl 25 Mg Tablet) 25 mg PO Q6H PRN PRN Reason: Anxiety Last Admin: 04/17/23 23:36 Dose: 25 mg Lamotrigine (Lamotrigine 100 Mg Tablet) 100 mg PO BID [facility] Last Admin: 04/18/23 08:10 Dose: 100 mg Lidocaine (Lidocaine 4 % Patch Adh..Patch) 1 patch TRANSDERMA DAILY [facility]; Protocol Last Admin: 04/18/23 08:14 Dose: Not Given Magnesium Hydroxide (Milk Of Magnesia 30 Ml Oral.Susp) 30 ml PO DAILY PRN PRN Reason: Constipation Last Admin: 03/19/23 10:12 Dose: 30 ml Memantine (Memantine Hcl 5 Mg Tablet) 5 mg PO BID [facility] Last Admin: 04/18/23 08:10 Dose: 5 mg Olanzapine (Olanzapine 2.5 Mg Tablet) 2.5 mg PO TID PRN PRN Reason: agitation Last Admin: 04/17/23 23:36 Dose: 2.5 mg Olanzapine (Olanzapine 7.5 Mg Tablet) 7.5 mg PO BEDTIME [facility] Last Admin: 04/17/23 20:55 Dose: 7.5 mg Polyethylene Glycol (Polyethylene Glycol 3350 17 Gm Powd.Pack) 17 gm PO DAILY [facility] Last Admin: 04/18/23 08:10 Dose: 17 gm Tramadol HCl (Tramadol Hcl 50 Mg Tablet) 50 mg PO Q6H PRN PRN Reason: Pain, Moderate(Pain Scale 4-6) Last Admin: 04/18/23 09:58 Dose: 50 mg Trazodone HCl (Trazodone Hcl 100 Mg Tablet) 100 mg PO BEDTIME [facility] Last Admin: 04/17/23 20:55 Dose: 100 mg Allergies Allergies Allergy/AdvReac Type Severity Reaction Status Date / Time pollen extracts Allergy Unknown unknown Verified 04/21/22 14:56 latex Allergy Rash Verified 10/31/22 18:30 Assessment & Plan Assessment & Plan (1) Bipolar disorder, now depressed: Status: Acute Code(s): F31.30 - Bipolar disorder, current episode depressed, mild or moderate severity, unspecified (2) Chronic back pain: Status: Acute Code(s): M54.9 - Dorsalgia, unspecified; G89.29 - Other chronic pain (3) Dementia: Status: Acute Code(s): F03.90 - Unspecified dementia, unspecified severity, without behavioral disturbance, psychotic disturbance, mood disturbance, and anxiety Plan 82 year old male with history hyperlipidemia, tubular adenoma colon, BPH, chronic normocytic anemia, 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 plan 1. Continue same treatment. 2. Waiting for placement 3. COVID positive on March 25 4. The patient is having visual hallucinations after being diagnosed with COVID, most likely due to delirium. His own p.r.n. Zyprexa regular Zyprexa night to target mood lability and psychosis. Reason for continued inpatient stay Substantial Risk for: inability to function, rapid decompensation and med/psych decompensation Time Spent With Patient Time: Total time managing care of this patient today __20__ minutes.
[2023-04-18 18:00] VITALS: BP 110/60; PULSE 64; RESP 18; TEMP 36.6; O2SAT 95
[2023-04-18] MEDS: traZODone HCL 100 MG TABLET PO (20:45)
[2023-04-18] MEDS: OLANZapine 7.5 MG TABLET PO (20:45)
[2023-04-19 08:00] VITALS: BP 116/71; PULSE 71; RESP 18; TEMP 36.4; O2SAT 95
[2023-04-19] MEDS: Memantine HCl 5 MG TABLET PO ×2 (08:34→20:49)
[2023-04-19] MEDS: Lidocaine 4 % Patch ADH..PATCH 1 PATCH TRANSDERMA (08:35)
[2023-04-19] MEDS: lamoTRIgine 100 MG TABLET PO ×2 (08:35→20:48)
--- NOTE | 2023-04-19 08:54 | P.PNPSI_ITS ---
Subjective Subjective Date of Service: 04/19/23 Reason For Visit: F31.9, F43.25 Subjective Notes: Section 8 Interim History: Pt slept through the night. He reports doing well. He denied SI/HI. No VH/AH. no behavioral concerns. visible, social with select peers. Review of Systems Review of Systems Back pain that is chronic in nature, no incontinence urinary or donita, no fever or chills, and weakness in the legs Yes all other systems are reviewed and are negative and Unobtainable due to mental status Mental Status Exam Mental Status Exam Patient Appearance: Appropriate Patient Orientation: Person and Situation Level of Consciousness: Awake Patient Behavior: Guarded and Passive Mood Description: Withdrawn Affect Description: Constricted Patient Cognition Impaired: Yes Ability to Follow Directions: Good Speech Pattern: Clear Diagnostics Vital Signs (24Hr): Vital Signs - 24 hr 04/18/23 18:00 04/19/23 08:00 Temperature 97.8 F 97.5 F Pulse Rate 64 71 Respiratory Rate 18 18 Blood Pressure 110/60 116/71 Pulse Oximetry 95 95 Oxygen Delivery Method Room Air Room Air BMI result Body Mass Index 26.6 Labs 02/15/23 06:42 02/15/23 06:43 Medications Medications Current Medications Acetaminophen (Acetaminophen 325 Mg Tablet) 650 mg PO Q4H PRN PRN Reason: Fever Last Admin: 04/18/23 14:23 Dose: 650 mg Al Hydroxide/Mg Hydroxide (Magnesium Hydrox/Alum Hydrox 30 Ml Oral.Susp) 30 ml PO Q6H PRN PRN Reason: Heartburn/Nausea Artificial Tears (Artificial Tears 15 Ml Drops) 1 drop EYE-BOTH Q4H PRN PRN Reason: Dry Eyes Last Admin: 03/24/23 01:42 Dose: 1 drop Bisacodyl (Bisacodyl 5 Mg Tablet.Dr) 10 mg PO DAILY PRN PRN Reason: Constipation Last Admin: 04/01/23 09:11 Dose: 10 mg Hydroxyzine HCl (Hydroxyzine Hcl 25 Mg Tablet) 25 mg PO Q6H PRN PRN Reason: Anxiety Last Admin: 04/17/23 23:36 Dose: 25 mg Lamotrigine (Lamotrigine 100 Mg Tablet) 100 mg PO BID [facility] Last Admin: 04/19/23 08:35 Dose: 100 mg Lidocaine (Lidocaine 4 % Patch Adh..Patch) 1 patch TRANSDERMA DAILY [facility]; Protocol Last Admin: 04/19/23 08:35 Dose: 1 patch Magnesium Hydroxide (Milk Of Magnesia 30 Ml Oral.Susp) 30 ml PO DAILY PRN PRN Reason: Constipation Last Admin: 03/19/23 10:12 Dose: 30 ml Memantine (Memantine Hcl 5 Mg Tablet) 5 mg PO BID [facility] Last Admin: 04/19/23 08:34 Dose: 5 mg Olanzapine (Olanzapine 2.5 Mg Tablet) 2.5 mg PO TID PRN PRN Reason: agitation Last Admin: 04/17/23 23:36 Dose: 2.5 mg Olanzapine (Olanzapine 7.5 Mg Tablet) 7.5 mg PO BEDTIME [facility] Last Admin: 04/18/23 20:45 Dose: 7.5 mg Polyethylene Glycol (Polyethylene Glycol 3350 17 Gm Powd.Pack) 17 gm PO DAILY [facility] Last Admin: 04/18/23 08:10 Dose: 17 gm Tramadol HCl (Tramadol Hcl 50 Mg Tablet) 50 mg PO Q6H PRN PRN Reason: Pain, Moderate(Pain Scale 4-6) Last Admin: 04/18/23 09:58 Dose: 50 mg Trazodone HCl (Trazodone Hcl 100 Mg Tablet) 100 mg PO BEDTIME [facility] Last Admin: 04/18/23 20:45 Dose: 100 mg Allergies Allergies Allergy/AdvReac Type Severity Reaction Status Date / Time pollen extracts Allergy Unknown unknown Verified 04/21/22 14:56 latex Allergy Rash Verified 10/31/22 18:30 Assessment & Plan Assessment & Plan (1) Bipolar disorder, now depressed: Status: Acute Code(s): F31.30 - Bipolar disorder, current episode depressed, mild or moderate severity, unspecified (2) Chronic back pain: Status: Acute Code(s): M54.9 - Dorsalgia, unspecified; G89.29 - Other chronic pain (3) Dementia: Status: Acute Code(s): F03.90 - Unspecified dementia, unspecified severity, without behavioral disturbance, psychotic disturbance, mood disturbance, and anxiety Plan 82 year old male with history hyperlipidemia, tubular adenoma colon, BPH, chronic normocytic anemia, 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 plan 04/19 continue tx. Reason for continued inpatient stay Substantial Risk for: inability to function Time Spent With Patient Time: Total time managing care of this patient today ____ minutes.
[2023-04-19] MEDS: polyethylene glycoL 3350 17 GM POWD.PACK PO (08:57)
[2023-04-19 18:00] VITALS: BP 124/56; PULSE 66; RESP 17; TEMP 36; O2SAT 96
[2023-04-19] MEDS: OLANZapine 7.5 MG TABLET PO (20:49)
[2023-04-19] MEDS: traMADoL HCL 50 MG TABLET PO (20:49)
[2023-04-19] MEDS: traZODone HCL 100 MG TABLET PO (20:49)
[2023-04-20 08:15] VITALS: BP 121/68; PULSE 70; RESP 18; TEMP 36; O2SAT 96
[2023-04-20] MEDS: traMADoL HCL 50 MG TABLET PO (08:36)
[2023-04-20] MEDS: Memantine HCl 5 MG TABLET PO ×2 (08:36→21:01)
[2023-04-20] MEDS: polyethylene glycoL 3350 17 GM POWD.PACK PO (08:37)
[2023-04-20] MEDS: lamoTRIgine 100 MG TABLET PO ×2 (08:37→21:01)
[2023-04-20] MEDS: Lidocaine 4 % Patch ADH..PATCH 1 PATCH TRANSDERMA (08:37)
--- NOTE | 2023-04-20 17:15 | HO.PSYCHPN ---
Subjective Subjective Date of Service: 04/20/23 Reason For Visit: F31.9, F43.25 Interim History: Met with patient; discussed with team; reviewed chart Patient lying in bed, resting but awake and alert. Says that he is good and denies any complaints or request. Staff reports stable Mental Status Exam Mental Status Exam Patient Appearance: Appropriate Patient Orientation: Person and Situation Level of Consciousness: Awake and Drowsy Patient Behavior: Passive Mood Description: Withdrawn Affect Description: Withdrawn Patient Cognition Impaired: Yes Ability to Follow Directions: Good Speech Pattern: Clear Memory Description: Longterm Impaired Hallucinations: None (Not expressed) Delusions: Not Present (None expressed) Thought Process: Goal Oriented Thought Content: positive for Intact (Regarding no SI/HI) Judgement and Insight: Impaired Diagnostics Vital Signs (24Hr): Vital Signs - 24 hr 04/19/23 18:00 04/20/23 08:15 Temperature 96.8 F 96.8 F Pulse Rate 66 70 Respiratory Rate 17 18 Blood Pressure 124/56 L 121/68 Pulse Oximetry 96 96 Oxygen Delivery Method Room Air Room Air BMI result Body Mass Index 26.6 Labs 02/15/23 06:42 02/15/23 06:43 Medications Medications Current Medications Acetaminophen (Acetaminophen 325 Mg Tablet) 650 mg PO Q4H PRN PRN Reason: Fever Last Admin: 04/18/23 14:23 Dose: 650 mg Al Hydroxide/Mg Hydroxide (Magnesium Hydrox/Alum Hydrox 30 Ml Oral.Susp) 30 ml PO Q6H PRN PRN Reason: Heartburn/Nausea Artificial Tears (Artificial Tears 15 Ml Drops) 1 drop EYE-BOTH Q4H PRN PRN Reason: Dry Eyes Last Admin: 03/24/23 01:42 Dose: 1 drop Bisacodyl (Bisacodyl 5 Mg Tablet.Dr) 10 mg PO DAILY PRN PRN Reason: Constipation Last Admin: 04/01/23 09:11 Dose: 10 mg Hydroxyzine HCl (Hydroxyzine Hcl 25 Mg Tablet) 25 mg PO Q6H PRN PRN Reason: Anxiety Last Admin: 04/17/23 23:36 Dose: 25 mg Lamotrigine (Lamotrigine 100 Mg Tablet) 100 mg PO BID [facility] Last Admin: 04/20/23 08:37 Dose: 100 mg Lidocaine (Lidocaine 4 % Patch Adh..Patch) 1 patch TRANSDERMA DAILY [facility]; Protocol Last Admin: 04/20/23 08:37 Dose: 1 patch Magnesium Hydroxide (Milk Of Magnesia 30 Ml Oral.Susp) 30 ml PO DAILY PRN PRN Reason: Constipation Last Admin: 03/19/23 10:12 Dose: 30 ml Memantine (Memantine Hcl 5 Mg Tablet) 5 mg PO BID [facility] Last Admin: 04/20/23 08:36 Dose: 5 mg Olanzapine (Olanzapine 2.5 Mg Tablet) 2.5 mg PO TID PRN PRN Reason: agitation Last Admin: 04/17/23 23:36 Dose: 2.5 mg Olanzapine (Olanzapine 7.5 Mg Tablet) 7.5 mg PO BEDTIME [facility] Last Admin: 04/19/23 20:49 Dose: 7.5 mg Polyethylene Glycol (Polyethylene Glycol 3350 17 Gm Powd.Pack) 17 gm PO DAILY [facility] Last Admin: 04/20/23 08:37 Dose: 17 gm Tramadol HCl (Tramadol Hcl 50 Mg Tablet) 50 mg PO Q6H PRN PRN Reason: Pain, Moderate(Pain Scale 4-6) Last Admin: 04/20/23 08:36 Dose: 50 mg Trazodone HCl (Trazodone Hcl 100 Mg Tablet) 100 mg PO BEDTIME [facility] Last Admin: 04/19/23 20:49 Dose: 100 mg Allergies Allergies Allergy/AdvReac Type Severity Reaction Status Date / Time pollen extracts Allergy Unknown unknown Verified 04/21/22 14:56 latex Allergy Rash Verified 10/31/22 18:30 Assessment & Plan Assessment & Plan (1) Bipolar disorder, now depressed: Status: Acute Code(s): F31.30 - Bipolar disorder, current episode depressed, mild or moderate severity, unspecified (2) Chronic back pain: Status: Acute Code(s): M54.9 - Dorsalgia, unspecified; G89.29 - Other chronic pain (3) Dementia: Status: Acute Code(s): F03.90 - Unspecified dementia, unspecified severity, without behavioral disturbance, psychotic disturbance, mood disturbance, and anxiety Plan 82 year old male with history hyperlipidemia, tubular adenoma colon, BPH, chronic normocytic anemia, 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 plan 04/19 continue tx. 04/20, continue current treatment plan Reason for continued inpatient stay Substantial Risk for: inability to function Time Spent With Patient Time: Total time managing care of this patient today ____ minutes.
[2023-04-20 18:00] VITALS: BP 101/65; PULSE 62; RESP 18; TEMP 36.3; O2SAT 95
[2023-04-20] MEDS: traZODone HCL 100 MG TABLET PO (21:01)
[2023-04-20] MEDS: OLANZapine 7.5 MG TABLET PO (21:01)
[2023-04-21 08:00] VITALS: BP 90/55; PULSE 76; RESP 18; TEMP 36.2; O2SAT 97
[2023-04-21] MEDS: Acetaminophen 325 MG TABLET 650 MG PO (08:49)
[2023-04-21] MEDS: Lidocaine 4 % Patch ADH..PATCH 1 PATCH TRANSDERMA (08:49)
[2023-04-21] MEDS: polyethylene glycoL 3350 17 GM POWD.PACK PO (08:49)
[2023-04-21] MEDS: lamoTRIgine 100 MG TABLET PO ×2 (08:50→20:05)
[2023-04-21] MEDS: Memantine HCl 5 MG TABLET PO ×2 (08:50→20:05)
[2023-04-21 18:00] VITALS: BP 122/70; PULSE 71; RESP 18; TEMP 35.8; O2SAT 97
[2023-04-21] MEDS: traZODone HCL 100 MG TABLET PO (20:05)
[2023-04-21] MEDS: OLANZapine 7.5 MG TABLET PO (20:05)
[2023-04-21] MEDS: hydrOXYzine HCL 25 MG TABLET PO (20:05)
--- NOTE | 2023-04-21 23:55 | HO.PSYCHPN ---
Subjective Subjective Date of Service: 04/21/23 Reason For Visit: F31.9, F43.25 Interim History: Met with patient; discussed with team Patient says that he good and asking typewriters functional tester for ice cream which typewriters functional tester help him fine. No complaints, no request; staff reports no behavioral incidents Mental Status Exam Mental Status Exam Patient Appearance: Appropriate Patient Orientation: Person and Situation Level of Consciousness: Awake and Alert Patient Behavior: Cooperative, Passive and Good Eye Contact Mood Description: Constricted Affect Description: Constricted Patient Cognition Impaired: Yes Ability to Follow Directions: Good Speech Pattern: Clear Memory Description: Helpdesk Analyst Impaired Hallucinations: None (Not expressed) Delusions: Not Present (None expressed) Thought Process: Goal Oriented Thought Content: positive for Intact (Regarding no SI/HI) Judgement and Insight: Impaired Diagnostics Vital Signs (24Hr): Vital Signs - 24 hr 04/21/23 08:00 Temperature 97.2 F Pulse Rate 76 Respiratory Rate 18 Blood Pressure 90/55 L Pulse Oximetry 97 Oxygen Delivery Method Room Air BMI result Body Mass Index 26.6 Labs 02/15/23 06:42 02/15/23 06:43 Medications Medications Current Medications Acetaminophen (Acetaminophen 325 Mg Tablet) 650 mg PO Q4H PRN PRN Reason: Fever Last Admin: 04/21/23 08:49 Dose: 650 mg Al Hydroxide/Mg Hydroxide (Magnesium Hydrox/Alum Hydrox 30 Ml Oral.Susp) 30 ml PO Q6H PRN PRN Reason: Heartburn/Nausea Artificial Tears (Artificial Tears 15 Ml Drops) 1 drop EYE-BOTH Q4H PRN PRN Reason: Dry Eyes Last Admin: 03/24/23 01:42 Dose: 1 drop Bisacodyl (Bisacodyl 5 Mg Tablet.Dr) 10 mg PO DAILY PRN PRN Reason: Constipation Last Admin: 04/01/23 09:11 Dose: 10 mg Hydroxyzine HCl (Hydroxyzine Hcl 25 Mg Tablet) 25 mg PO Q6H PRN PRN Reason: Anxiety Last Admin: 04/21/23 20:05 Dose: 25 mg Lamotrigine (Lamotrigine 100 Mg Tablet) 100 mg PO BID [facility] Last Admin: 04/21/23 20:05 Dose: 100 mg Lidocaine (Lidocaine 4 % Patch Adh..Patch) 1 patch TRANSDERMA DAILY [facility]; Protocol Last Admin: 04/21/23 08:49 Dose: 1 patch Magnesium Hydroxide (Milk Of Magnesia 30 Ml Oral.Susp) 30 ml PO DAILY PRN PRN Reason: Constipation Last Admin: 03/19/23 10:12 Dose: 30 ml Memantine (Memantine Hcl 5 Mg Tablet) 5 mg PO BID [facility] Last Admin: 04/21/23 20:05 Dose: 5 mg Olanzapine (Olanzapine 2.5 Mg Tablet) 2.5 mg PO TID PRN PRN Reason: agitation Last Admin: 04/17/23 23:36 Dose: 2.5 mg Olanzapine (Olanzapine 7.5 Mg Tablet) 7.5 mg PO BEDTIME [facility] Last Admin: 04/21/23 20:05 Dose: 7.5 mg Polyethylene Glycol (Polyethylene Glycol 3350 17 Gm Powd.Pack) 17 gm PO DAILY [facility] Last Admin: 04/21/23 08:49 Dose: 17 gm Tramadol HCl (Tramadol Hcl 50 Mg Tablet) 50 mg PO Q6H PRN PRN Reason: Pain, Moderate(Pain Scale 4-6) Last Admin: 04/20/23 08:36 Dose: 50 mg Trazodone HCl (Trazodone Hcl 100 Mg Tablet) 100 mg PO BEDTIME [facility] Last Admin: 04/21/23 20:05 Dose: 100 mg Allergies Allergies Allergy/AdvReac Type Severity Reaction Status Date / Time pollen extracts Allergy Unknown unknown Verified 04/21/22 14:56 latex Allergy Rash Verified 10/31/22 18:30 Assessment & Plan Assessment & Plan (1) Bipolar disorder, now depressed: Status: Acute Code(s): F31.30 - Bipolar disorder, current episode depressed, mild or moderate severity, unspecified (2) Chronic back pain: Status: Acute Code(s): M54.9 - Dorsalgia, unspecified; G89.29 - Other chronic pain (3) Dementia: Status: Acute Code(s): F03.90 - Unspecified dementia, unspecified severity, without behavioral disturbance, psychotic disturbance, mood disturbance, and anxiety Plan 82 year old male with history hyperlipidemia, tubular adenoma colon, BPH, chronic normocytic anemia, 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 plan 04/19 continue tx. 04/20, continue current treatment plan 04/21 continue current treatment plan Reason for continued inpatient stay Substantial Risk for: inability to function Time Spent With Patient Time: Total time managing care of this patient today ____ minutes.
[2023-04-22 08:21] VITALS: BP 98/57; PULSE 73; RESP 18; TEMP 36.4; O2SAT 97
[2023-04-22] MEDS: lamoTRIgine 100 MG TABLET PO ×2 (10:08→19:40)
[2023-04-22] MEDS: Memantine HCl 5 MG TABLET PO ×2 (10:08→19:40)
--- NOTE | 2023-04-22 14:27 | HO.PSYCHPN ---
Subjective Subjective Date of Service: 04/22/23 Reason For Visit: F31.9, F43.25 Subjective Notes: Conditional Voluntary Interim History: The nursing staff reported no changes in her mental status, compliant with treatment. On interview the patient remains pleasantly confused, no changes in his mental status. Waiting for placement Mental Status Exam Mental Status Exam Patient Appearance: Appropriate Patient Orientation: Person and Situation Patient Behavior: Guarded and Passive Mood Description: Withdrawn Affect Description: Constricted Patient Cognition Impaired: Yes Ability to Follow Directions: Good Speech Pattern: Clear Hallucinations: None Delusions: Ideas of Reference Thought Process: Distracted and Slowed Thinking Thought Content: positive for [place] and positive for Poverty of Content Judgement: Fair Diagnostics Vital Signs (24Hr): Vital Signs - 24 hr 04/21/23 18:00 04/22/23 08:21 Temperature 96.4 F L 97.5 F Pulse Rate 71 73 Respiratory Rate 18 18 Blood Pressure 122/70 98/57 L Pulse Oximetry 97 97 Oxygen Delivery Method Room Air Room Air BMI result Body Mass Index 26.6 Labs 02/15/23 06:42 02/15/23 06:43 Medications Medications Current Medications Acetaminophen (Acetaminophen 325 Mg Tablet) 650 mg PO Q4H PRN PRN Reason: Fever Last Admin: 04/21/23 08:49 Dose: 650 mg Al Hydroxide/Mg Hydroxide (Magnesium Hydrox/Alum Hydrox 30 Ml Oral.Susp) 30 ml PO Q6H PRN PRN Reason: Heartburn/Nausea Artificial Tears (Artificial Tears 15 Ml Drops) 1 drop EYE-BOTH Q4H PRN PRN Reason: Dry Eyes Last Admin: 03/24/23 01:42 Dose: 1 drop Bisacodyl (Bisacodyl 5 Mg Tablet.Dr) 10 mg PO DAILY PRN PRN Reason: Constipation Last Admin: 04/01/23 09:11 Dose: 10 mg Hydroxyzine HCl (Hydroxyzine Hcl 25 Mg Tablet) 25 mg PO Q6H PRN PRN Reason: Anxiety Last Admin: 04/21/23 20:05 Dose: 25 mg Lamotrigine (Lamotrigine 100 Mg Tablet) 100 mg PO BID [facility] Last Admin: 04/22/23 10:08 Dose: 100 mg Lidocaine (Lidocaine 4 % Patch Adh..Patch) 1 patch TRANSDERMA DAILY [facility]; Protocol Last Admin: 04/22/23 10:12 Dose: Not Given Magnesium Hydroxide (Milk Of Magnesia 30 Ml Oral.Susp) 30 ml PO DAILY PRN PRN Reason: Constipation Last Admin: 03/19/23 10:12 Dose: 30 ml Memantine (Memantine Hcl 5 Mg Tablet) 5 mg PO BID [facility] Last Admin: 04/22/23 10:08 Dose: 5 mg Olanzapine (Olanzapine 2.5 Mg Tablet) 2.5 mg PO TID PRN PRN Reason: agitation Last Admin: 04/17/23 23:36 Dose: 2.5 mg Olanzapine (Olanzapine 7.5 Mg Tablet) 7.5 mg PO BEDTIME [facility] Last Admin: 04/21/23 20:05 Dose: 7.5 mg Polyethylene Glycol (Polyethylene Glycol 3350 17 Gm Powd.Pack) 17 gm PO DAILY [facility] Last Admin: 04/22/23 10:12 Dose: Not Given Tramadol HCl (Tramadol Hcl 50 Mg Tablet) 50 mg PO Q6H PRN PRN Reason: Pain, Moderate(Pain Scale 4-6) Last Admin: 04/20/23 08:36 Dose: 50 mg Trazodone HCl (Trazodone Hcl 100 Mg Tablet) 100 mg PO BEDTIME [facility] Last Admin: 04/21/23 20:05 Dose: 100 mg Allergies Allergies Allergy/AdvReac Type Severity Reaction Status Date / Time pollen extracts Allergy Unknown unknown Verified 04/21/22 14:56 latex Allergy Rash Verified 10/31/22 18:30 Assessment & Plan Assessment & Plan (1) Bipolar disorder, now depressed: Status: Acute Code(s): F31.30 - Bipolar disorder, current episode depressed, mild or moderate severity, unspecified (2) Chronic back pain: Status: Acute Code(s): M54.9 - Dorsalgia, unspecified; G89.29 - Other chronic pain (3) Dementia: Status: Acute Code(s): F03.90 - Unspecified dementia, unspecified severity, without behavioral disturbance, psychotic disturbance, mood disturbance, and anxiety Plan 82 year old male with history hyperlipidemia, tubular adenoma colon, BPH, chronic normocytic anemia, 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 plan 1. Continue with same treatment. 2. Waiting for placement. Reason for continued inpatient stay Substantial Risk for: inability to function, rapid decompensation and med/psych decompensation Time Spent With Patient Time: Total time managing care of this patient today __20__ minutes.
[2023-04-22 19:00] VITALS: BP 143/71; PULSE 67; RESP 18; TEMP 36.6; O2SAT 96
[2023-04-22] MEDS: traZODone HCL 100 MG TABLET PO (19:40)
[2023-04-22] MEDS: OLANZapine 7.5 MG TABLET PO (19:40)
[2023-04-23 07:55] VITALS: BP 150/76; PULSE 71; RESP 16; TEMP 36.1; O2SAT 97
[2023-04-23] MEDS: Memantine HCl 5 MG TABLET PO ×2 (08:14→20:43)
[2023-04-23] MEDS: polyethylene glycoL 3350 17 GM POWD.PACK PO (08:14)
[2023-04-23] MEDS: traMADoL HCL 50 MG TABLET PO (08:14)
[2023-04-23] MEDS: lamoTRIgine 100 MG TABLET PO ×2 (08:14→20:43)
[2023-04-23] MEDS: Lidocaine 4 % Patch ADH..PATCH 1 PATCH TRANSDERMA (08:15)
--- NOTE | 2023-04-23 16:15 | P.PNPSI_ITS ---
Subjective Subjective Date of Service: 04/23/23 Reason For Visit: F31.9, F43.25 Subjective Notes: Conditional Voluntary Interim History: The nursing staff reported the patient no changes in his mental status, waiting for placement. 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 Most likely we will have financial clearance by the end of this week so we can place him. On interview the patient denies new symptoms, waiting for placement Mental Status Exam Mental Status Exam Patient Appearance: Appropriate Patient Orientation: Person Level of Consciousness: Awake Patient Behavior: Guarded and Passive Mood Description: Withdrawn Affect Description: Constricted Patient Cognition Impaired: Yes Ability to Follow Directions: Good Speech Pattern: Clear Hallucinations: None Delusions: Ideas of Reference Thought Process: Illogical and Slowed Thinking Thought Content: positive for [place] and positive for Poverty of Content Judgement: Fair Diagnostics Vital Signs (24Hr): Vital Signs - 24 hr 04/22/23 19:00 04/23/23 07:55 Temperature 97.9 F 97.0 F Pulse Rate 67 71 Respiratory Rate 18 16 Blood Pressure 143/71 H 150/76 H Pulse Oximetry 96 97 Oxygen Delivery Method Room Air Room Air BMI result Body Mass Index 26.6 Labs 02/15/23 06:42 02/15/23 06:43 Medications Medications Current Medications Acetaminophen (Acetaminophen 325 Mg Tablet) 650 mg PO Q4H PRN PRN Reason: Fever Last Admin: 04/21/23 08:49 Dose: 650 mg Al Hydroxide/Mg Hydroxide (Magnesium Hydrox/Alum Hydrox 30 Ml Oral.Susp) 30 ml PO Q6H PRN PRN Reason: Heartburn/Nausea Artificial Tears (Artificial Tears 15 Ml Drops) 1 drop EYE-BOTH Q4H PRN PRN Reason: Dry Eyes Last Admin: 03/24/23 01:42 Dose: 1 drop Bisacodyl (Bisacodyl 5 Mg Tablet.Dr) 10 mg PO DAILY PRN PRN Reason: Constipation Last Admin: 04/01/23 09:11 Dose: 10 mg Hydroxyzine HCl (Hydroxyzine Hcl 25 Mg Tablet) 25 mg PO Q6H PRN PRN Reason: Anxiety Last Admin: 04/21/23 20:05 Dose: 25 mg Lamotrigine (Lamotrigine 100 Mg Tablet) 100 mg PO BID [facility] Last Admin: 04/23/23 08:14 Dose: 100 mg Lidocaine (Lidocaine 4 % Patch Adh..Patch) 1 patch TRANSDERMA DAILY [facility]; Protocol Last Admin: 04/23/23 08:15 Dose: 1 patch Magnesium Hydroxide (Milk Of Magnesia 30 Ml Oral.Susp) 30 ml PO DAILY PRN PRN Reason: Constipation Last Admin: 03/19/23 10:12 Dose: 30 ml Memantine (Memantine Hcl 5 Mg Tablet) 5 mg PO BID [facility] Last Admin: 04/23/23 08:14 Dose: 5 mg Olanzapine (Olanzapine 2.5 Mg Tablet) 2.5 mg PO TID PRN PRN Reason: agitation Last Admin: 04/17/23 23:36 Dose: 2.5 mg Olanzapine (Olanzapine 7.5 Mg Tablet) 7.5 mg PO BEDTIME [facility] Last Admin: 04/22/23 19:40 Dose: 7.5 mg Polyethylene Glycol (Polyethylene Glycol 3350 17 Gm Powd.Pack) 17 gm PO DAILY [facility] Last Admin: 04/23/23 08:14 Dose: 17 gm Tramadol HCl (Tramadol Hcl 50 Mg Tablet) 50 mg PO Q6H PRN PRN Reason: Pain, Moderate(Pain Scale 4-6) Last Admin: 04/23/23 08:14 Dose: 50 mg Trazodone HCl (Trazodone Hcl 100 Mg Tablet) 100 mg PO BEDTIME [facility] Last Admin: 04/22/23 19:40 Dose: 100 mg Allergies Allergies Allergy/AdvReac Type Severity Reaction Status Date / Time pollen extracts Allergy Unknown unknown Verified 04/21/22 14:56 latex Allergy Rash Verified 10/31/22 18:30 Assessment & Plan Assessment & Plan (1) Bipolar disorder, now depressed: Status: Acute Code(s): F31.30 - Bipolar disorder, current episode depressed, mild or moderate severity, unspecified (2) Chronic back pain: Status: Acute Code(s): M54.9 - Dorsalgia, unspecified; G89.29 - Other chronic pain (3) Dementia: Status: Acute Code(s): F03.90 - Unspecified dementia, unspecified severity, without behavioral disturbance, psychotic disturbance, mood disturbance, and anxiety Plan 82 year old male with history hyperlipidemia, tubular adenoma colon, BPH, chronic normocytic anemia, 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 plan 1. Continue with same treatment. 2. Waiting for placement Reason for continued inpatient stay Substantial Risk for: inability to function, rapid decompensation and med/psych decompensation Time Spent With Patient Time: Total time managing care of this patient today __20__ minutes.
[2023-04-23 18:00] VITALS: BP 119/60; PULSE 69; RESP 18; TEMP 36.5; O2SAT 95
[2023-04-23] MEDS: traZODone HCL 100 MG TABLET PO (20:43)
[2023-04-23] MEDS: OLANZapine 7.5 MG TABLET PO (20:43)
[2023-04-24 07:55] VITALS: BP 122/74; PULSE 70; RESP 18; TEMP 36.6; O2SAT 96
[2023-04-24] MEDS: Lidocaine 4 % Patch ADH..PATCH 1 PATCH TRANSDERMA (08:12)
[2023-04-24] MEDS: lamoTRIgine 100 MG TABLET PO ×2 (08:12→20:21)
[2023-04-24] MEDS: polyethylene glycoL 3350 17 GM POWD.PACK PO (08:12)
[2023-04-24] MEDS: Memantine HCl 5 MG TABLET PO ×2 (08:12→20:22)
--- NOTE | 2023-04-24 12:04 | HO.PSYCHPN ---
Subjective Subjective Date of Service: 04/24/23 Reason For Visit: F31.9, F43.25 Subjective Notes: Conditional Voluntary Interim History: The nursing staff reported no changes in his mental status compliant with treatment confused but redirectable. The social work instructor reported that [facility] will assess him pretty soon for benefits. On interview the patient denies new symptoms, confused but redirectable. Mental Status Exam Mental Status Exam Patient Appearance: Appropriate Patient Orientation: Person Level of Consciousness: Awake Patient Behavior: Guarded and Passive Mood Description: Withdrawn Affect Description: Constricted Patient Cognition Impaired: Yes Ability to Follow Directions: Good Speech Pattern: Clear Hallucinations: None Delusions: Ideas of Reference Thought Process: Distracted Thought Content: positive for [place] and positive for Poverty of Content Judgement: Fair Diagnostics Vital Signs (24Hr): Vital Signs - 24 hr 04/23/23 18:00 04/24/23 07:55 Temperature 97.7 F 97.9 F Pulse Rate 69 70 Respiratory Rate 18 18 Blood Pressure 119/60 122/74 Pulse Oximetry 95 96 Oxygen Delivery Method Room Air Room Air BMI result Body Mass Index 26.6 Labs 02/15/23 06:42 02/15/23 06:43 Medications Medications Current Medications Acetaminophen (Acetaminophen 325 Mg Tablet) 650 mg PO Q4H PRN PRN Reason: Fever Last Admin: 04/21/23 08:49 Dose: 650 mg Al Hydroxide/Mg Hydroxide (Magnesium Hydrox/Alum Hydrox 30 Ml Oral.Susp) 30 ml PO Q6H PRN PRN Reason: Heartburn/Nausea Artificial Tears (Artificial Tears 15 Ml Drops) 1 drop EYE-BOTH Q4H PRN PRN Reason: Dry Eyes Last Admin: 03/24/23 01:42 Dose: 1 drop Bisacodyl (Bisacodyl 5 Mg Tablet.Dr) 10 mg PO DAILY PRN PRN Reason: Constipation Last Admin: 04/01/23 09:11 Dose: 10 mg Hydroxyzine HCl (Hydroxyzine Hcl 25 Mg Tablet) 25 mg PO Q6H PRN PRN Reason: Anxiety Last Admin: 04/21/23 20:05 Dose: 25 mg Lamotrigine (Lamotrigine 100 Mg Tablet) 100 mg PO BID [facility] Last Admin: 04/24/23 08:12 Dose: 100 mg Lidocaine (Lidocaine 4 % Patch Adh..Patch) 1 patch TRANSDERMA DAILY [facility]; Protocol Last Admin: 04/24/23 08:12 Dose: 1 patch Magnesium Hydroxide (Milk Of Magnesia 30 Ml Oral.Susp) 30 ml PO DAILY PRN PRN Reason: Constipation Last Admin: 03/19/23 10:12 Dose: 30 ml Memantine (Memantine Hcl 5 Mg Tablet) 5 mg PO BID [facility] Last Admin: 04/24/23 08:12 Dose: 5 mg Olanzapine (Olanzapine 2.5 Mg Tablet) 2.5 mg PO TID PRN PRN Reason: agitation Last Admin: 04/17/23 23:36 Dose: 2.5 mg Olanzapine (Olanzapine 7.5 Mg Tablet) 7.5 mg PO BEDTIME [facility] Last Admin: 04/23/23 20:43 Dose: 7.5 mg Polyethylene Glycol (Polyethylene Glycol 3350 17 Gm Powd.Pack) 17 gm PO DAILY [facility] Last Admin: 04/24/23 08:12 Dose: 17 gm Tramadol HCl (Tramadol Hcl 50 Mg Tablet) 50 mg PO Q6H PRN PRN Reason: Pain, Moderate(Pain Scale 4-6) Last Admin: 04/23/23 08:14 Dose: 50 mg Trazodone HCl (Trazodone Hcl 100 Mg Tablet) 100 mg PO BEDTIME [facility] Last Admin: 04/23/23 20:43 Dose: 100 mg Allergies Allergies Allergy/AdvReac Type Severity Reaction Status Date / Time pollen extracts Allergy Unknown unknown Verified 04/21/22 14:56 latex Allergy Rash Verified 10/31/22 18:30 Assessment & Plan Assessment & Plan (1) Bipolar disorder, now depressed: Status: Acute Code(s): F31.30 - Bipolar disorder, current episode depressed, mild or moderate severity, unspecified (2) Chronic back pain: Status: Acute Code(s): M54.9 - Dorsalgia, unspecified; G89.29 - Other chronic pain (3) Dementia: Status: Acute Code(s): F03.90 - Unspecified dementia, unspecified severity, without behavioral disturbance, psychotic disturbance, mood disturbance, and anxiety Plan 82 year old male with history hyperlipidemia, tubular adenoma colon, BPH, chronic normocytic anemia, 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 plan 1. Continue with same treatment. 2. Waiting for placement Reason for continued inpatient stay Substantial Risk for: inability to function, rapid decompensation and med/psych decompensation Time Spent With Patient Time: Total time managing care of this patient today __20__ minutes.
[2023-04-24 18:00] VITALS: BP 102/58; PULSE 69; RESP 18; TEMP 36.4; O2SAT 94
[2023-04-24] MEDS: traZODone HCL 100 MG TABLET PO (20:22)
[2023-04-24] MEDS: traMADoL HCL 50 MG TABLET PO (20:22)
[2023-04-24] MEDS: OLANZapine 7.5 MG TABLET PO (20:22)
[2023-04-25 08:00] VITALS: BP 108/58; PULSE 73; RESP 20; TEMP 36.4; O2SAT 96
[2023-04-25] MEDS: lamoTRIgine 100 MG TABLET PO ×2 (09:37→21:00)
[2023-04-25] MEDS: Lidocaine 4 % Patch ADH..PATCH 1 PATCH TRANSDERMA (09:37)
[2023-04-25] MEDS: polyethylene glycoL 3350 17 GM POWD.PACK PO (09:38)
[2023-04-25] MEDS: Memantine HCl 5 MG TABLET PO ×2 (09:40→21:00)
--- NOTE | 2023-04-25 16:43 | P.PNPSI_ITS ---
Subjective Subjective Date of Service: 04/25/23 Reason For Visit: F31.9, F43.25 Subjective Notes: Conditional Voluntary Interim History: The nursing staff reported that yesterday the patient was so confused that he went into other's patient's room and barricaded himself and needed to be redirected. The social work therapist reported that [facility] already passed him and he is expected to go to [facility]. On interview the patient denies new symptoms, waiting for placement. Mental Status Exam Mental Status Exam Patient Appearance: Well Grooomed and Appropriate Patient Orientation: Person and Situation Level of Consciousness: Awake and Appropriate Patient Behavior: Guarded and Passive Mood Description: Calm Affect Description: Constricted Patient Cognition Impaired: Yes Ability to Follow Directions: Good Speech Pattern: Clear Hallucinations: None Delusions: Not Present Thought Process: Distracted and Slowed Thinking Thought Content: positive for [place] and positive for Poverty of Content Judgement: Fair Diagnostics Vital Signs (24Hr): Vital Signs - 24 hr 04/24/23 18:00 04/25/23 08:00 Temperature 97.5 F 97.6 F Pulse Rate 69 73 Respiratory Rate 18 20 Blood Pressure 102/58 L 108/58 L Pulse Oximetry 94 96 Oxygen Delivery Method Room Air Room Air BMI result Body Mass Index 26.6 Labs 02/15/23 06:42 02/15/23 06:43 Medications Medications Current Medications Acetaminophen (Acetaminophen 325 Mg Tablet) 650 mg PO Q4H PRN PRN Reason: Fever Last Admin: 04/21/23 08:49 Dose: 650 mg Al Hydroxide/Mg Hydroxide (Magnesium Hydrox/Alum Hydrox 30 Ml Oral.Susp) 30 ml PO Q6H PRN PRN Reason: Heartburn/Nausea Artificial Tears (Artificial Tears 15 Ml Drops) 1 drop EYE-BOTH Q4H PRN PRN Reason: Dry Eyes Last Admin: 03/24/23 01:42 Dose: 1 drop Bisacodyl (Bisacodyl 5 Mg Tablet.) 10 mg PO DAILY PRN PRN Reason: Constipation Last Admin: 04/01/23 09:11 Dose: 10 mg Hydroxyzine HCl (Hydroxyzine Hcl 25 Mg Tablet) 25 mg PO Q6H PRN PRN Reason: Anxiety Last Admin: 04/21/23 20:05 Dose: 25 mg Lamotrigine (Lamotrigine 100 Mg Tablet) 100 mg PO BID [facility] Last Admin: 04/25/23 09:37 Dose: 100 mg Lidocaine (Lidocaine 4 % Patch Adh..Patch) 1 patch TRANSDERMA DAILY [facility]; Protocol Last Admin: 04/25/23 09:37 Dose: 1 patch Magnesium Hydroxide (Milk Of Magnesia 30 Ml Oral.Susp) 30 ml PO DAILY PRN PRN Reason: Constipation Last Admin: 03/19/23 10:12 Dose: 30 ml Memantine (Memantine Hcl 5 Mg Tablet) 5 mg PO BID [facility] Last Admin: 04/25/23 09:40 Dose: 5 mg Olanzapine (Olanzapine 2.5 Mg Tablet) 2.5 mg PO TID PRN PRN Reason: agitation Last Admin: 04/17/23 23:36 Dose: 2.5 mg Olanzapine (Olanzapine 7.5 Mg Tablet) 7.5 mg PO BEDTIME [facility] Last Admin: 04/24/23 20:22 Dose: 7.5 mg Polyethylene Glycol (Polyethylene Glycol 3350 17 Gm Powd.Pack) 17 gm PO DAILY [facility] Last Admin: 04/25/23 09:38 Dose: 17 gm Tramadol HCl (Tramadol Hcl 50 Mg Tablet) 50 mg PO Q6H PRN PRN Reason: Pain, Moderate(Pain Scale 4-6) Last Admin: 04/24/23 20:22 Dose: 50 mg Trazodone HCl (Trazodone Hcl 100 Mg Tablet) 100 mg PO BEDTIME [facility] Last Admin: 04/24/23 20:22 Dose: 100 mg Allergies Allergies Allergy/AdvReac Type Severity Reaction Status Date / Time pollen extracts Allergy Unknown unknown Verified 04/21/22 14:56 latex Allergy Rash Verified 10/31/22 18:30 Assessment & Plan Assessment & Plan (1) Bipolar disorder, now depressed: Status: Acute Code(s): F31.30 - Bipolar disorder, current episode depressed, mild or moderate severity, unspecified (2) Chronic back pain: Status: Acute Code(s): M54.9 - Dorsalgia, unspecified; G89.29 - Other chronic pain (3) Dementia: Status: Acute Code(s): F03.90 - Unspecified dementia, unspecified severity, without behavioral disturbance, psychotic disturbance, mood disturbance, and anxiety Plan 82 year old male with history hyperlipidemia, tubular adenoma colon, BPH, chronic normocytic anemia, 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 plan 1. Continue with same treatment. 2. Waiting for placement Reason for continued inpatient stay Substantial Risk for: inability to function, rapid decompensation and med/psych decompensation Time Spent With Patient Time: Total time managing care of this patient today __20__ minutes.
[2023-04-25 18:00] VITALS: BP 123/82; PULSE 75; RESP 18; TEMP 36.3; O2SAT 98
[2023-04-25] MEDS: traMADoL HCL 50 MG TABLET PO (21:00)
[2023-04-25] MEDS: traZODone HCL 100 MG TABLET PO (21:00)
[2023-04-25] MEDS: OLANZapine 7.5 MG TABLET PO (21:00)
[2023-04-26 08:01] VITALS: BP 101/60; PULSE 70; RESP 18; TEMP 36.3; O2SAT 92
[2023-04-26] MEDS: polyethylene glycoL 3350 17 GM POWD.PACK PO (08:21)
[2023-04-26] MEDS: lamoTRIgine 100 MG TABLET PO ×2 (08:21→20:51)
[2023-04-26] MEDS: Lidocaine 4 % Patch ADH..PATCH 1 PATCH TRANSDERMA (08:21)
[2023-04-26] MEDS: Memantine HCl 5 MG TABLET PO ×2 (08:21→20:51)
--- NOTE | 2023-04-26 14:34 | HO.PSYCHPN ---
Subjective Subjective Date of Service: 04/26/23 Reason For Visit: F31.9, F43.25 Subjective Notes: Conditional Voluntary Interim History: The nursing staff reported no changes in his mental status, confused easily redirectable. Waiting for placement. Mental Status Exam Mental Status Exam Patient Appearance: Appropriate Patient Orientation: Person Level of Consciousness: Awake Patient Behavior: Guarded and Passive Mood Description: Withdrawn Affect Description: Constricted Patient Cognition Impaired: Yes Ability to Follow Directions: Good Speech Pattern: Clear Hallucinations: None Delusions: Ideas of Reference Thought Process: Distracted Thought Content: positive for [place] and positive for Poverty of Content Judgement: Fair Diagnostics Vital Signs (24Hr): Vital Signs - 24 hr 04/25/23 18:00 04/26/23 08:01 Temperature 97.3 F 97.3 F Pulse Rate 75 70 Respiratory Rate 18 18 Blood Pressure 123/82 101/60 Pulse Oximetry 98 92 Oxygen Delivery Method Room Air Room Air BMI result Body Mass Index 26.6 Labs 02/15/23 06:42 02/15/23 06:43 Medications Medications Current Medications Acetaminophen (Acetaminophen 325 Mg Tablet) 650 mg PO Q4H PRN PRN Reason: Fever Last Admin: 04/21/23 08:49 Dose: 650 mg Al Hydroxide/Mg Hydroxide (Magnesium Hydrox/Alum Hydrox 30 Ml Oral.Susp) 30 ml PO Q6H PRN PRN Reason: Heartburn/Nausea Artificial Tears (Artificial Tears 15 Ml Drops) 1 drop EYE-BOTH Q4H PRN PRN Reason: Dry Eyes Last Admin: 03/24/23 01:42 Dose: 1 drop Bisacodyl (Bisacodyl 5 Mg Tablet.Dr) 10 mg PO DAILY PRN PRN Reason: Constipation Last Admin: 04/01/23 09:11 Dose: 10 mg Hydroxyzine HCl (Hydroxyzine Hcl 25 Mg Tablet) 25 mg PO Q6H PRN PRN Reason: Anxiety Last Admin: 04/21/23 20:05 Dose: 25 mg Lamotrigine (Lamotrigine 100 Mg Tablet) 100 mg PO BID [facility] Last Admin: 04/26/23 08:21 Dose: 100 mg Lidocaine (Lidocaine 4 % Patch Adh..Patch) 1 patch TRANSDERMA DAILY [facility]; Protocol Last Admin: 04/26/23 08:21 Dose: 1 patch Magnesium Hydroxide (Milk Of Magnesia 30 Ml Oral.Susp) 30 ml PO DAILY PRN PRN Reason: Constipation Last Admin: 03/19/23 10:12 Dose: 30 ml Memantine (Memantine Hcl 5 Mg Tablet) 5 mg PO BID [facility] Last Admin: 04/26/23 08:21 Dose: 5 mg Olanzapine (Olanzapine 2.5 Mg Tablet) 2.5 mg PO TID PRN PRN Reason: agitation Last Admin: 04/17/23 23:36 Dose: 2.5 mg Olanzapine (Olanzapine 7.5 Mg Tablet) 7.5 mg PO BEDTIME [facility] Last Admin: 04/25/23 21:00 Dose: 7.5 mg Polyethylene Glycol (Polyethylene Glycol 3350 17 Gm Powd.Pack) 17 gm PO DAILY [facility] Last Admin: 04/26/23 08:21 Dose: 17 gm Tramadol HCl (Tramadol Hcl 50 Mg Tablet) 50 mg PO Q6H PRN PRN Reason: Pain, Moderate(Pain Scale 4-6) Last Admin: 04/25/23 21:00 Dose: 50 mg Trazodone HCl (Trazodone Hcl 100 Mg Tablet) 100 mg PO BEDTIME [facility] Last Admin: 04/25/23 21:00 Dose: 100 mg Allergies Allergies Allergy/AdvReac Type Severity Reaction Status Date / Time pollen extracts Allergy Unknown unknown Verified 04/21/22 14:56 latex Allergy Rash Verified 10/31/22 18:30 Assessment & Plan Assessment & Plan (1) Bipolar disorder, now depressed: Status: Acute Code(s): F31.30 - Bipolar disorder, current episode depressed, mild or moderate severity, unspecified (2) Chronic back pain: Status: Acute Code(s): M54.9 - Dorsalgia, unspecified; G89.29 - Other chronic pain (3) Dementia: Status: Acute Code(s): F03.90 - Unspecified dementia, unspecified severity, without behavioral disturbance, psychotic disturbance, mood disturbance, and anxiety Plan 82 year old male with history hyperlipidemia, tubular adenoma colon, BPH, chronic normocytic anemia, 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 plan 1. Continue with same treatment. 2. Waiting for placement Reason for continued inpatient stay Substantial Risk for: inability to function, rapid decompensation and med/psych decompensation Time Spent With Patient Time: Total time managing care of this patient today ____ minutes.
[2023-04-26 15:39] VITALS: BMI 27.3
[2023-04-26 18:00] VITALS: BP 103/58; PULSE 63; RESP 18; TEMP 36.4; O2SAT 94
[2023-04-26] MEDS: OLANZapine 7.5 MG TABLET PO (20:51)
[2023-04-26] MEDS: traZODone HCL 100 MG TABLET PO (20:55)
[2023-04-27 08:01] VITALS: BP 125/73; PULSE 76; RESP 18; TEMP 35.8; O2SAT 96
[2023-04-27] MEDS: lamoTRIgine 100 MG TABLET PO ×2 (08:16→20:29)
[2023-04-27] MEDS: polyethylene glycoL 3350 17 GM POWD.PACK PO (08:16)
[2023-04-27] MEDS: Lidocaine 4 % Patch ADH..PATCH 1 PATCH TRANSDERMA (08:17)
[2023-04-27] MEDS: traMADoL HCL 50 MG TABLET PO (08:17)
[2023-04-27] MEDS: Memantine HCl 5 MG TABLET PO ×2 (08:46→20:29)
--- NOTE | 2023-04-27 17:09 | P.PNPSI_ITS ---
Subjective Subjective Date of Service: 04/27/23 Reason For Visit: F31.9, F43.25 Interim History: The nursing staff reported no changes in his mental status, confused easily redirectable. eating well; sleeping at night; had ultrma fro back pain with no side effects. Waiting for placement. Medication Compliance: Yes Side effects from medications: No Attending Groups: No Review of Systems Acute medical concerns: No Review of Systems Review of Systems Back pain that is chronic in nature, no incontinence urinary or donita, no fever or chills, and weakness in the legs Yes all other systems are reviewed and are negative and Unobtainable due to mental status Mental Status Exam Mental Status Exam Narrative: pleasant. Engaged. Fair self-care. Some cognitive impairment evident. No depression, SI, HI, agitation or psychosis. Patient Appearance: Appropriate Patient Orientation: Person Level of Consciousness: Awake Patient Behavior: Guarded and Passive Mood Description: Withdrawn Affect Description: Constricted Patient Cognition Impaired: Yes Ability to Follow Directions: Good Speech Pattern: Clear Memory Description: Correction Impaired Diagnostics Vital Signs (24Hr): Vital Signs - 24 hr 04/26/23 18:00 04/27/23 08:01 Temperature 97.6 F 96.4 F L Pulse Rate 63 76 Respiratory Rate 18 18 Blood Pressure 103/58 L 125/73 Pulse Oximetry 94 96 Oxygen Delivery Method Room Air Room Air BMI result Body Mass Index 27.3 Labs 02/15/23 06:42 02/15/23 06:43 Medications Medications Current Medications Acetaminophen (Acetaminophen 325 Mg Tablet) 650 mg PO Q4H PRN PRN Reason: Fever Last Admin: 04/21/23 08:49 Dose: 650 mg Al Hydroxide/Mg Hydroxide (Magnesium Hydrox/Alum Hydrox 30 Ml Oral.Susp) 30 ml PO Q6H PRN PRN Reason: Heartburn/Nausea Artificial Tears (Artificial Tears 15 Ml Drops) 1 drop EYE-BOTH Q4H PRN PRN Reason: Dry Eyes Last Admin: 03/24/23 01:42 Dose: 1 drop Bisacodyl (Bisacodyl 5 Mg Tablet.Dr) 10 mg PO DAILY PRN PRN Reason: Constipation Last Admin: 04/01/23 09:11 Dose: 10 mg Hydroxyzine HCl (Hydroxyzine Hcl 25 Mg Tablet) 25 mg PO Q6H PRN PRN Reason: Anxiety Last Admin: 04/21/23 20:05 Dose: 25 mg Lamotrigine (Lamotrigine 100 Mg Tablet) 100 mg PO BID [facility] Last Admin: 04/27/23 08:16 Dose: 100 mg Lidocaine (Lidocaine 4 % Patch Adh..Patch) 1 patch TRANSDERMA DAILY [facility]; Protocol Last Admin: 04/27/23 08:17 Dose: 1 patch Magnesium Hydroxide (Milk Of Magnesia 30 Ml Oral.Susp) 30 ml PO DAILY PRN PRN Reason: Constipation Last Admin: 03/19/23 10:12 Dose: 30 ml Memantine (Memantine Hcl 5 Mg Tablet) 5 mg PO BID [facility] Last Admin: 04/27/23 08:46 Dose: 5 mg Olanzapine (Olanzapine 2.5 Mg Tablet) 2.5 mg PO TID PRN PRN Reason: agitation Last Admin: 04/17/23 23:36 Dose: 2.5 mg Olanzapine (Olanzapine 7.5 Mg Tablet) 7.5 mg PO BEDTIME [facility] Last Admin: 04/26/23 20:51 Dose: 7.5 mg Polyethylene Glycol (Polyethylene Glycol 3350 17 Gm Powd.Pack) 17 gm PO DAILY [facility] Last Admin: 04/27/23 08:16 Dose: 17 gm Tramadol HCl (Tramadol Hcl 50 Mg Tablet) 50 mg PO Q6H PRN PRN Reason: Pain, Moderate(Pain Scale 4-6) Last Admin: 04/27/23 08:17 Dose: 50 mg Trazodone HCl (Trazodone Hcl 100 Mg Tablet) 100 mg PO BEDTIME [facility] Last Admin: 04/26/23 20:55 Dose: 100 mg Allergies Allergies Allergy/AdvReac Type Severity Reaction Status Date / Time pollen extracts Allergy Unknown unknown Verified 04/21/22 14:56 latex Allergy Rash Verified 10/31/22 18:30 Assessment & Plan Assessment & Plan (1) Bipolar disorder, now depressed: Status: Acute Code(s): F31.30 - Bipolar disorder, current episode depressed, mild or moderate severity, unspecified (2) Chronic back pain: Status: Acute Code(s): M54.9 - Dorsalgia, unspecified; G89.29 - Other chronic pain (3) Dementia: Status: Acute Code(s): F03.90 - Unspecified dementia, unspecified severity, without behavioral disturbance, psychotic disturbance, mood disturbance, and anxiety Plan 82 year old male with history hyperlipidemia, tubular adenoma colon, BPH, chronic normocytic anemia, 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 plan 04/27/23 1. Continue with same treatment. 2. Waiting for placement Reason for continued inpatient stay Substantial Risk for: inability to function Time Spent With Patient Time: Total time managing care of this patient today ____ minutes.
[2023-04-27 18:00] VITALS: BP 115/72; PULSE 71; RESP 18; TEMP 36.1; O2SAT 95
[2023-04-27] MEDS: traZODone HCL 100 MG TABLET PO (20:29)
[2023-04-27] MEDS: OLANZapine 7.5 MG TABLET PO (20:29)
[2023-04-27] MEDS: hydrOXYzine HCL 25 MG TABLET PO (20:30)
[2023-04-28 08:05] VITALS: BP 109/64; PULSE 70; RESP 18; TEMP 35.7; O2SAT 95
[2023-04-28] MEDS: lamoTRIgine 100 MG TABLET PO ×2 (09:27→20:05)
[2023-04-28] MEDS: Lidocaine 4 % Patch ADH..PATCH 1 PATCH TRANSDERMA (09:27)
[2023-04-28] MEDS: polyethylene glycoL 3350 17 GM POWD.PACK PO (09:27)
[2023-04-28] MEDS: Memantine HCl 5 MG TABLET PO ×2 (09:27→20:05)
--- NOTE | 2023-04-28 13:40 | HO.PSYCHPN ---
Subjective Subjective Date of Service: 04/28/23 Reason For Visit: F31.9, F43.25 Interim History: The nursing staff reported no changes in his mental status, confused easily redirectable. pleasant and polite upon approach; confused; eating well; sleeping at night. Waiting for placement. Medication Compliance: Yes Side effects from medications: No Attending Groups: No Review of Systems Acute medical concerns: No Medical Review of Systems: unchanged Review of Systems Review of Systems Back pain that is chronic in nature, no incontinence urinary or donita, no fever or chills, and weakness in the legs Yes all other systems are reviewed and are negative and Unobtainable due to mental status Mental Status Exam Mental Status Exam Narrative: pleasant. Engaged. Fair self-care. Some cognitive impairment evident. No depression, SI, HI, agitation or psychosis. Patient Appearance: Appropriate Patient Orientation: Person Level of Consciousness: Awake Patient Behavior: Guarded and Passive Mood Description: Withdrawn Affect Description: Constricted Patient Cognition Impaired: Yes Ability to Follow Directions: Good Speech Pattern: Clear Memory Description: Residential Impaired Diagnostics Vital Signs (24Hr): Vital Signs - 24 hr 04/27/23 18:00 04/28/23 08:05 Temperature 97 F 96.2 F L Pulse Rate 71 70 Respiratory Rate 18 18 Blood Pressure 115/72 109/64 Pulse Oximetry 95 95 Oxygen Delivery Method Room Air Room Air BMI result Body Mass Index 27.3 Labs 02/15/23 06:42 02/15/23 06:43 Medications Medications Current Medications Acetaminophen (Acetaminophen 325 Mg Tablet) 650 mg PO Q4H PRN PRN Reason: Fever Last Admin: 04/21/23 08:49 Dose: 650 mg Al Hydroxide/Mg Hydroxide (Magnesium Hydrox/Alum Hydrox 30 Ml Oral.Susp) 30 ml PO Q6H PRN PRN Reason: Heartburn/Nausea Artificial Tears (Artificial Tears 15 Ml Drops) 1 drop EYE-BOTH Q4H PRN PRN Reason: Dry Eyes Last Admin: 03/24/23 01:42 Dose: 1 drop Bisacodyl (Bisacodyl 5 Mg Tablet.Dr) 10 mg PO DAILY PRN PRN Reason: Constipation Last Admin: 04/01/23 09:11 Dose: 10 mg Hydroxyzine HCl (Hydroxyzine Hcl 25 Mg Tablet) 25 mg PO Q6H PRN PRN Reason: Anxiety Last Admin: 04/27/23 20:30 Dose: 25 mg Lamotrigine (Lamotrigine 100 Mg Tablet) 100 mg PO BID [facility] Last Admin: 04/28/23 09:27 Dose: 100 mg Lidocaine (Lidocaine 4 % Patch Adh..Patch) 1 patch TRANSDERMA DAILY [facility]; Protocol Last Admin: 04/28/23 09:27 Dose: 1 patch Magnesium Hydroxide (Milk Of Magnesia 30 Ml Oral.Susp) 30 ml PO DAILY PRN PRN Reason: Constipation Last Admin: 03/19/23 10:12 Dose: 30 ml Memantine (Memantine Hcl 5 Mg Tablet) 5 mg PO BID [facility] Last Admin: 04/28/23 09:27 Dose: 5 mg Olanzapine (Olanzapine 2.5 Mg Tablet) 2.5 mg PO TID PRN PRN Reason: agitation Last Admin: 04/17/23 23:36 Dose: 2.5 mg Olanzapine (Olanzapine 7.5 Mg Tablet) 7.5 mg PO BEDTIME [facility] Last Admin: 04/27/23 20:29 Dose: 7.5 mg Polyethylene Glycol (Polyethylene Glycol 3350 17 Gm Powd.Pack) 17 gm PO DAILY [facility] Last Admin: 04/28/23 09:27 Dose: 17 gm Tramadol HCl (Tramadol Hcl 50 Mg Tablet) 50 mg PO Q6H PRN PRN Reason: Pain, Moderate(Pain Scale 4-6) Last Admin: 04/27/23 08:17 Dose: 50 mg Trazodone HCl (Trazodone Hcl 100 Mg Tablet) 100 mg PO BEDTIME [facility] Last Admin: 04/27/23 20:29 Dose: 100 mg Allergies Allergies Allergy/AdvReac Type Severity Reaction Status Date / Time pollen extracts Allergy Unknown unknown Verified 04/21/22 14:56 latex Allergy Rash Verified 10/31/22 18:30 Assessment & Plan Assessment & Plan (1) Bipolar disorder, now depressed: Status: Acute Code(s): F31.30 - Bipolar disorder, current episode depressed, mild or moderate severity, unspecified (2) Chronic back pain: Status: Acute Code(s): M54.9 - Dorsalgia, unspecified; G89.29 - Other chronic pain (3) Dementia: Status: Acute Code(s): F03.90 - Unspecified dementia, unspecified severity, without behavioral disturbance, psychotic disturbance, mood disturbance, and anxiety Plan 82 year old male with history hyperlipidemia, tubular adenoma colon, BPH, chronic normocytic anemia, 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 plan 04/28/23 1. Continue with same treatment. 2. Waiting for placement Reason for continued inpatient stay Substantial Risk for: inability to function and rapid decompensation Time Spent With Patient Time: Total time managing care of this patient today ____ minutes.
[2023-04-28 19:40] VITALS: BP 154/82; PULSE 83; RESP 18; TEMP 36.8; O2SAT 96
[2023-04-28] MEDS: OLANZapine 7.5 MG TABLET PO (20:05)
[2023-04-28] MEDS: traMADoL HCL 50 MG TABLET PO (20:05)
[2023-04-28] MEDS: traZODone HCL 100 MG TABLET PO (20:05)
[2023-04-29 08:09] VITALS: BP 101/63; PULSE 74; RESP 17; TEMP 36.6; O2SAT 93
[2023-04-29] MEDS: Memantine HCl 5 MG TABLET PO ×2 (08:17→20:18)
[2023-04-29] MEDS: lamoTRIgine 100 MG TABLET PO ×2 (08:18→20:18)
[2023-04-29] MEDS: polyethylene glycoL 3350 17 GM POWD.PACK PO (08:19)
[2023-04-29] MEDS: Lidocaine 4 % Patch ADH..PATCH 1 PATCH TRANSDERMA (08:21)
--- NOTE | 2023-04-29 15:19 | HO.PSYCHPN ---
Subjective Subjective Date of Service: 04/29/23 Reason For Visit: F31.9, F43.25 Subjective Notes: Conditional Voluntary Interim History: The nursing staff reported no changes in his mental status he slept 6 hours. Today he had a good mood in the morning. The social insurance adviser reported that he will be accepted to [facility]. On interview the patient denies new symptoms. Mental Status Exam Mental Status Exam Patient Appearance: Appropriate Patient Orientation: Person and Situation Level of Consciousness: Awake and Appropriate Patient Behavior: Guarded and Passive Mood Description: Withdrawn Affect Description: Constricted Patient Cognition Impaired: Yes Ability to Follow Directions: Good Speech Pattern: Clear Hallucinations: None Delusions: Not Present Thought Process: Distracted and Slowed Thinking Thought Content: positive for [place] and positive for Circumstantial Judgement: Fair Diagnostics Vital Signs (24Hr): Vital Signs - 24 hr 04/28/23 19:40 04/29/23 08:09 Temperature 98.2 F 97.8 F Pulse Rate 83 74 Respiratory Rate 18 17 Blood Pressure 154/82 H 101/63 Pulse Oximetry 96 93 Oxygen Delivery Method Room Air Room Air BMI result Body Mass Index 27.3 Labs 02/15/23 06:42 02/15/23 06:43 Medications Medications Current Medications Acetaminophen (Acetaminophen 325 Mg Tablet) 650 mg PO Q4H PRN PRN Reason: Fever Last Admin: 04/21/23 08:49 Dose: 650 mg Al Hydroxide/Mg Hydroxide (Magnesium Hydrox/Alum Hydrox 30 Ml Oral.Susp) 30 ml PO Q6H PRN PRN Reason: Heartburn/Nausea Artificial Tears (Artificial Tears 15 Ml Drops) 1 drop EYE-BOTH Q4H PRN PRN Reason: Dry Eyes Last Admin: 03/24/23 01:42 Dose: 1 drop Bisacodyl (Bisacodyl 5 Mg Tablet.Dr) 10 mg PO DAILY PRN PRN Reason: Constipation Last Admin: 04/01/23 09:11 Dose: 10 mg Hydroxyzine HCl (Hydroxyzine Hcl 25 Mg Tablet) 25 mg PO Q6H PRN PRN Reason: Anxiety Last Admin: 04/27/23 20:30 Dose: 25 mg Lamotrigine (Lamotrigine 100 Mg Tablet) 100 mg PO BID [facility] Last Admin: 04/29/23 08:18 Dose: 100 mg Lidocaine (Lidocaine 4 % Patch Adh..Patch) [address] [facility]; Protocol Last Admin: 04/29/23 08:21 Dose: 1 patch Magnesium Hydroxide (Milk Of Magnesia 30 Ml Oral.Susp) 30 ml PO DAILY PRN PRN Reason: Constipation Last Admin: 03/19/23 10:12 Dose: 30 ml Memantine (Memantine Hcl 5 Mg Tablet) [address] [facility] Last Admin: 04/29/23 08:17 Dose: 5 mg Olanzapine (Olanzapine 2.5 Mg Tablet) 2.5 mg PO TID PRN PRN Reason: agitation Last Admin: 04/17/23 23:36 Dose: 2.5 mg Olanzapine (Olanzapine 7.5 Mg Tablet) 7.[address] [facility] Last Admin: 04/28/23 20:05 Dose: 7.5 mg Polyethylene Glycol (Polyethylene Glycol 3350 17 Gm Powd.Pack) [address] [facility] Last Admin: 04/29/23 08:19 Dose: 17 gm Tramadol HCl (Tramadol Hcl 50 Mg Tablet) 50 mg PO Q6H PRN PRN Reason: Pain, Moderate(Pain Scale 4-6) Last Admin: 04/28/23 20:05 Dose: 50 mg Trazodone HCl (Trazodone Hcl 100 Mg Tablet) [address] [facility] Last Admin: 04/28/23 20:05 Dose: 100 mg Allergies Allergies Allergy/AdvReac Type Severity Reaction Status Date / Time pollen extracts Allergy Unknown unknown Verified 04/21/22 14:56 latex Allergy Rash Verified 10/31/22 18:30 Assessment & Plan Assessment & Plan (1) Bipolar disorder, now depressed: Status: Acute Code(s): F31.30 - Bipolar disorder, current episode depressed, mild or moderate severity, unspecified (2) Chronic back pain: Status: Acute Code(s): M54.9 - Dorsalgia, unspecified; G89.29 - Other chronic pain (3) Dementia: Status: Acute Code(s): F03.90 - Unspecified dementia, unspecified severity, without behavioral disturbance, psychotic disturbance, mood disturbance, and anxiety Plan 82 year old male with history hyperlipidemia, tubular adenoma colon, BPH, chronic normocytic anemia, 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 plan 04/28/23 1. Continue with same treatment. 2. Waiting for placement Reason for continued inpatient stay Substantial Risk for: inability to function, rapid decompensation and med/psych decompensation Time Spent With Patient Time: Total time managing care of this patient today _20___ minutes.
[2023-04-29 18:00] VITALS: BP 163/85; PULSE 75; RESP 18; TEMP 36.1; O2SAT 96
[2023-04-29] MEDS: OLANZapine 7.5 MG TABLET PO (20:18)
[2023-04-29] MEDS: traMADoL HCL 50 MG TABLET PO (20:19)
[2023-04-29] MEDS: traZODone HCL 100 MG TABLET PO (20:19)
[2023-04-30] MEDS: traMADoL HCL 50 MG TABLET PO ×2 (02:53→20:23)
[2023-04-30] MEDS: hydrOXYzine HCL 25 MG TABLET PO ×2 (02:53→20:23)
[2023-04-30 06:00] VITALS: BP 118/66; PULSE 62; RESP 16; TEMP 36.2; O2SAT 96
[2023-04-30] MEDS: Memantine HCl 5 MG TABLET PO ×2 (09:41→20:23)
[2023-04-30] MEDS: lamoTRIgine 100 MG TABLET PO ×2 (09:41→20:23)
[2023-04-30] MEDS: Lidocaine 4 % Patch ADH..PATCH 1 PATCH TRANSDERMA (09:41)
[2023-04-30] MEDS: polyethylene glycoL 3350 17 GM POWD.PACK PO (09:41)
--- NOTE | 2023-04-30 13:33 | HO.PSYCHPN ---
Subjective Subjective Date of Service: 04/30/23 Reason For Visit: F31.9, F43.25 Subjective Notes: Conditional Voluntary Interim History: The nursing staff reported the patient has been compliant with treatment, wandering the unit confused at times but easily redirectable. Yesterday he had a shower. On interview the patient denies new symptoms, waiting for placement Mental Status Exam Mental Status Exam Patient Appearance: Appropriate Patient Orientation: Person and Situation Level of Consciousness: Awake and Appropriate Patient Behavior: Guarded and Passive Mood Description: Withdrawn Affect Description: Constricted Patient Cognition Impaired: Yes Ability to Follow Directions: Good Speech Pattern: Clear Hallucinations: None Delusions: Not Present Thought Process: Distracted and Slowed Thinking Thought Content: positive for Poverty of Content Judgement: Fair Diagnostics Vital Signs (24Hr): Vital Signs - 24 hr 04/29/23 18:00 04/30/23 06:00 Temperature 96.9 F 97.1 F Pulse Rate 75 62 Respiratory Rate 18 16 Blood Pressure 163/85 H 118/66 Pulse Oximetry 96 96 Oxygen Delivery Method Room Air Room Air BMI result Body Mass Index 27.3 Labs 02/15/23 06:42 02/15/23 06:43 Medications Medications Current Medications Acetaminophen (Acetaminophen 325 Mg Tablet) 650 mg PO Q4H PRN PRN Reason: Fever Last Admin: 04/21/23 08:49 Dose: 650 mg Al Hydroxide/Mg Hydroxide (Magnesium Hydrox/Alum Hydrox 30 Ml Oral.Susp) 30 ml PO Q6H PRN PRN Reason: Heartburn/Nausea Artificial Tears (Artificial Tears 15 Ml Drops) 1 drop EYE-BOTH Q4H PRN PRN Reason: Dry Eyes Last Admin: 03/24/23 01:42 Dose: 1 drop Bisacodyl (Bisacodyl 5 Mg Tablet.Dr) 10 mg PO DAILY PRN PRN Reason: Constipation Last Admin: 04/01/23 09:11 Dose: 10 mg Hydroxyzine HCl (Hydroxyzine Hcl 25 Mg Tablet) 25 mg PO Q6H PRN PRN Reason: Anxiety Last Admin: 04/30/23 02:53 Dose: 25 mg Lamotrigine (Lamotrigine 100 Mg Tablet) 100 mg PO BID [facility] Last Admin: 04/30/23 09:41 Dose: 100 mg Lidocaine (Lidocaine 4 % Patch Adh..Patch) 1 patch TRANSDERMA DAILY [facility]; Protocol Last Admin: 04/30/23 09:41 Dose: 1 patch Magnesium Hydroxide (Milk Of Magnesia 30 Ml Oral.Susp) 30 ml PO DAILY PRN PRN Reason: Constipation Last Admin: 03/19/23 10:12 Dose: 30 ml Memantine (Memantine Hcl 5 Mg Tablet) 5 mg PO BID [facility] Last Admin: 04/30/23 09:41 Dose: 5 mg Olanzapine (Olanzapine 2.5 Mg Tablet) 2.5 mg PO TID PRN PRN Reason: agitation Last Admin: 04/17/23 23:36 Dose: 2.5 mg Olanzapine (Olanzapine 7.5 Mg Tablet) 7.5 mg PO BEDTIME [facility] Last Admin: 04/29/23 20:18 Dose: 7.5 mg Polyethylene Glycol (Polyethylene Glycol 3350 17 Gm Powd.Pack) 17 gm PO DAILY [facility] Last Admin: 04/30/23 09:41 Dose: 17 gm Tramadol HCl (Tramadol Hcl 50 Mg Tablet) 50 mg PO Q6H PRN PRN Reason: Pain, Moderate(Pain Scale 4-6) Last Admin: 04/30/23 02:53 Dose: 50 mg Trazodone HCl (Trazodone Hcl 100 Mg Tablet) 100 mg PO BEDTIME [facility] Last Admin: 04/29/23 20:19 Dose: 100 mg Allergies Allergies Allergy/AdvReac Type Severity Reaction Status Date / Time pollen extracts Allergy Unknown unknown Verified 04/21/22 14:56 latex Allergy Rash Verified 10/31/22 18:30 Assessment & Plan Assessment & Plan (1) Bipolar disorder, now depressed: Status: Acute Code(s): F31.30 - Bipolar disorder, current episode depressed, mild or moderate severity, unspecified (2) Chronic back pain: Status: Acute Code(s): M54.9 - Dorsalgia, unspecified; G89.29 - Other chronic pain (3) Dementia: Status: Acute Code(s): F03.90 - Unspecified dementia, unspecified severity, without behavioral disturbance, psychotic disturbance, mood disturbance, and anxiety Plan 82 year old male with history hyperlipidemia, tubular adenoma colon, BPH, chronic normocytic anemia, 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 plan 04/28/23 1. Continue with same treatment. 2. Waiting for placement Reason for continued inpatient stay Substantial Risk for: inability to function, rapid decompensation and med/psych decompensation Time Spent With Patient Time: Total time managing care of this patient today __20__ minutes.
[2023-04-30 18:00] VITALS: BP 119/66; PULSE 67; RESP 16; TEMP 37; O2SAT 95
[2023-04-30] MEDS: traZODone HCL 100 MG TABLET PO (20:23)
[2023-05-01] MEDS: OLANZapine 7.5 MG TABLET PO ×2 (01:26→19:39)
[2023-05-01 08:28] VITALS: BP 104/60; PULSE 70; RESP 17; TEMP 36.1; O2SAT 93
[2023-05-01] MEDS: Memantine HCl 5 MG TABLET PO ×2 (08:30→19:40)
[2023-05-01] MEDS: lamoTRIgine 100 MG TABLET PO ×2 (08:30→19:40)
[2023-05-01] MEDS: polyethylene glycoL 3350 17 GM POWD.PACK PO (08:31)
[2023-05-01] MEDS: Lidocaine 4 % Patch ADH..PATCH 1 PATCH TRANSDERMA (08:32)
[2023-05-01] MEDS: traMADoL HCL 50 MG TABLET PO ×2 (13:07→19:39)
--- NOTE | 2023-05-01 13:16 | P.PNPSI_ITS ---
Subjective Subjective Date of Service: 05/01/23 Reason For Visit: F31.9, F43.25 Subjective Notes: Conditional Voluntary Interim History: The nursing staff reported the patient had been confused, he complained of back pain irritable at times but easily redirectable. 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 On interview the patient denies new symptoms, waiting for placement. Mental Status Exam Mental Status Exam Patient Appearance: Unkempt Patient Orientation: Person Level of Consciousness: Awake Patient Behavior: Cooperative and Passive Mood Description: Withdrawn Affect Description: Constricted Patient Cognition Impaired: Yes Ability to Follow Directions: Good Speech Pattern: Clear Hallucinations: None Delusions: Not Present Thought Process: Distracted and Evasive Thought Content: positive for [place] and positive for Circumstantial Judgement: Poor Diagnostics Vital Signs (24Hr): Vital Signs - 24 hr 04/30/23 18:00 05/01/23 08:28 Temperature 98.6 F 96.9 F Pulse Rate 67 70 Respiratory Rate 16 17 Blood Pressure 119/66 104/60 Pulse Oximetry 95 93 Oxygen Delivery Method Room Air Room Air BMI result Body Mass Index 27.3 Labs 02/15/23 06:42 02/15/23 06:43 Medications Medications Current Medications Acetaminophen (Acetaminophen 325 Mg Tablet) 650 mg PO Q4H PRN PRN Reason: Fever Last Admin: 04/21/23 08:49 Dose: 650 mg Al Hydroxide/Mg Hydroxide (Magnesium Hydrox/Alum Hydrox 30 Ml Oral.Susp) 30 ml PO Q6H PRN PRN Reason: Heartburn/Nausea Artificial Tears (Artificial Tears 15 Ml Drops) 1 drop EYE-BOTH Q4H PRN PRN Reason: Dry Eyes Last Admin: 03/24/23 01:42 Dose: 1 drop Bisacodyl (Bisacodyl 5 Mg Tablet.Dr) 10 mg PO DAILY PRN PRN Reason: Constipation Last Admin: 04/01/23 09:11 Dose: 10 mg Hydroxyzine HCl (Hydroxyzine Hcl 25 Mg Tablet) 25 mg PO Q6H PRN PRN Reason: Anxiety Last Admin: 04/30/23 20:23 Dose: 25 mg Lamotrigine (Lamotrigine 100 Mg Tablet) 100 mg PO BID [facility] Last Admin: 05/01/23 08:30 Dose: 100 mg Lidocaine (Lidocaine 4 % Patch Adh..Patch) 1 patch TRANSDERMA DAILY [facility]; Protocol Last Admin: 05/01/23 08:32 Dose: 1 patch Magnesium Hydroxide (Milk Of Magnesia 30 Ml Oral.Susp) 30 ml PO DAILY PRN PRN Reason: Constipation Last Admin: 03/19/23 10:12 Dose: 30 ml Memantine (Memantine Hcl 5 Mg Tablet) 5 mg PO BID [facility] Last Admin: 05/01/23 08:30 Dose: 5 mg Olanzapine (Olanzapine 2.5 Mg Tablet) 2.5 mg PO TID PRN PRN Reason: agitation Last Admin: 04/17/23 23:36 Dose: 2.5 mg Olanzapine (Olanzapine 7.5 Mg Tablet) 7.5 mg PO BEDTIME [facility] Last Admin: 05/01/23 01:26 Dose: 7.5 mg Polyethylene Glycol (Polyethylene Glycol 3350 17 Gm Powd.Pack) 17 gm PO DAILY [facility] Last Admin: 05/01/23 08:31 Dose: 17 gm Tramadol HCl (Tramadol Hcl 50 Mg Tablet) 50 mg PO Q6H PRN PRN Reason: Pain, Moderate(Pain Scale 4-6) Last Admin: 05/01/23 13:07 Dose: 50 mg Trazodone HCl (Trazodone Hcl 100 Mg Tablet) 100 mg PO BEDTIME [facility] Last Admin: 04/30/23 20:23 Dose: 100 mg Allergies Allergies Allergy/AdvReac Type Severity Reaction Status Date / Time pollen extracts Allergy Unknown unknown Verified 04/21/22 14:56 latex Allergy Rash Verified 10/31/22 18:30 Assessment & Plan Assessment & Plan (1) Bipolar disorder, now depressed: Status: Acute Code(s): F31.30 - Bipolar disorder, current episode depressed, mild or moderate severity, unspecified (2) Chronic back pain: Status: Acute Code(s): M54.9 - Dorsalgia, unspecified; G89.29 - Other chronic pain (3) Dementia: Status: Acute Code(s): F03.90 - Unspecified dementia, unspecified severity, without behavioral disturbance, psychotic disturbance, mood disturbance, and anxiety Plan 82 year old male with history hyperlipidemia, tubular adenoma colon, BPH, chronic normocytic anemia, 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 plan 04/28/23 1. Continue with same treatment. 2. Waiting for placement Reason for continued inpatient stay Substantial Risk for: inability to function, rapid decompensation and med/psych decompensation Time Spent With Patient Time: Total time managing care of this patient today __20__ minutes.
[2023-05-01 18:00] VITALS: BP 145/70; PULSE 68; RESP 17; TEMP 35.9; O2SAT 95
[2023-05-01] MEDS: traZODone HCL 100 MG TABLET PO (19:40)
[2023-05-02 07:00] VITALS: BMI 27.4
[2023-05-02 08:02] VITALS: BP 135/71; PULSE 84; RESP 16; TEMP 36.2; O2SAT 98
[2023-05-02] MEDS: traMADoL HCL 50 MG TABLET PO (08:14)
[2023-05-02] MEDS: lamoTRIgine 100 MG TABLET PO ×2 (08:14→20:57)
[2023-05-02] MEDS: Memantine HCl 5 MG TABLET PO ×2 (08:15→20:57)
[2023-05-02] MEDS: polyethylene glycoL 3350 17 GM POWD.PACK PO (08:15)
[2023-05-02] MEDS: Milk of Magnesia 30 ML ORAL.SUSP PO (11:03)
--- NOTE | 2023-05-02 16:56 | P.PNPSI_ITS ---
Subjective Subjective Date of Service: 05/02/23 Reason For Visit: F31.9, F43.25 Subjective Notes: Conditional Voluntary Interim History: The nursing reported has been pleasantly confused easily redirectable. He complained of back pain and he took tramadol with for improvement. He slept 6 hours. On interview the patient denies new symptoms, waiting for placement Mental Status Exam Mental Status Exam Patient Appearance: Well Grooomed and Appropriate Patient Orientation: Person and Situation Level of Consciousness: Awake Patient Behavior: Guarded and Passive Mood Description: Withdrawn Affect Description: Constricted Patient Cognition Impaired: Yes Ability to Follow Directions: Good Speech Pattern: Clear Hallucinations: None Delusions: Not Present Thought Process: Distracted and Slowed Thinking Thought Content: positive for [place] and positive for Poverty of Content Judgement: Fair Diagnostics Vital Signs (24Hr): Vital Signs - 24 hr 05/01/23 18:00 05/02/23 08:02 Temperature 96.7 F L 97.1 F Pulse Rate 68 84 Respiratory Rate 17 16 Blood Pressure 145/70 H 135/71 Pulse Oximetry 95 98 Oxygen Delivery Method Room Air Room Air BMI result Body Mass Index 27.4 Labs 02/15/23 06:42 02/15/23 06:43 Medications Medications Current Medications Acetaminophen (Acetaminophen 325 Mg Tablet) 650 mg PO Q4H PRN PRN Reason: Fever Last Admin: 04/21/23 08:49 Dose: 650 mg Al Hydroxide/Mg Hydroxide (Magnesium Hydrox/Alum Hydrox 30 Ml Oral.Susp) 30 ml PO Q6H PRN PRN Reason: Heartburn/Nausea Artificial Tears (Artificial Tears 15 Ml Drops) 1 drop EYE-BOTH Q4H PRN PRN Reason: Dry Eyes Last Admin: 03/24/23 01:42 Dose: 1 drop Bisacodyl (Bisacodyl 5 Mg Tablet.Dr) 10 mg PO DAILY PRN PRN Reason: Constipation Last Admin: 04/01/23 09:11 Dose: 10 mg Hydroxyzine HCl (Hydroxyzine Hcl 25 Mg Tablet) 25 mg PO Q6H PRN PRN Reason: Anxiety Last Admin: 04/30/23 20:23 Dose: 25 mg Lamotrigine (Lamotrigine 100 Mg Tablet) 100 mg PO BID [facility] Last Admin: 05/02/23 08:14 Dose: 100 mg Lidocaine (Lidocaine 4 % Patch Adh..Patch) 1 patch TRANSDERMA DAILY [facility]; Protocol Last Admin: 05/02/23 08:18 Dose: Not Given Magnesium Hydroxide (Milk Of Magnesia 30 Ml Oral.Susp) 30 ml PO DAILY PRN PRN Reason: Constipation Last Admin: 05/02/23 11:03 Dose: 30 ml Memantine (Memantine Hcl 5 Mg Tablet) 5 mg PO BID [facility] Last Admin: 05/02/23 08:15 Dose: 5 mg Olanzapine (Olanzapine 2.5 Mg Tablet) 2.5 mg PO TID PRN PRN Reason: agitation Last Admin: 04/17/23 23:36 Dose: 2.5 mg Olanzapine (Olanzapine 7.5 Mg Tablet) 7.5 mg PO BEDTIME [facility] Last Admin: 05/01/23 19:39 Dose: 7.5 mg Polyethylene Glycol (Polyethylene Glycol 3350 17 Gm Powd.Pack) 17 gm PO DAILY [facility] Last Admin: 05/02/23 08:15 Dose: 17 gm Tramadol HCl (Tramadol Hcl 50 Mg Tablet) 50 mg PO Q6H PRN PRN Reason: Pain, Moderate(Pain Scale 4-6) Last Admin: 05/02/23 08:14 Dose: 50 mg Trazodone HCl (Trazodone Hcl 100 Mg Tablet) 100 mg PO BEDTIME [facility] Last Admin: 05/01/23 19:40 Dose: 100 mg Allergies Allergies Allergy/AdvReac Type Severity Reaction Status Date / Time pollen extracts Allergy Unknown unknown Verified 04/21/22 14:56 latex Allergy Rash Verified 10/31/22 18:30 Assessment & Plan Assessment & Plan (1) Bipolar disorder, now depressed: Status: Acute Code(s): F31.30 - Bipolar disorder, current episode depressed, mild or moderate severity, unspecified (2) Chronic back pain: Status: Acute Code(s): M54.9 - Dorsalgia, unspecified; G89.29 - Other chronic pain (3) Dementia: Status: Acute Code(s): F03.90 - Unspecified dementia, unspecified severity, without behavioral disturbance, psychotic disturbance, mood disturbance, and anxiety Plan 82 year old male with history hyperlipidemia, tubular adenoma colon, BPH, chronic normocytic anemia, 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 plan 04/28/23 1. Continue with same treatment. 2. Waiting for placement Reason for continued inpatient stay Substantial Risk for: inability to function, rapid decompensation and med/psych decompensation Time Spent With Patient Time: Total time managing care of this patient today __20__ minutes.
[2023-05-02 18:00] VITALS: BP 140/80; PULSE 75; RESP 18; TEMP 35.9; O2SAT 96
[2023-05-02] MEDS: traZODone HCL 100 MG TABLET PO (20:57)
[2023-05-02] MEDS: OLANZapine 7.5 MG TABLET PO (20:57)
[2023-05-03 07:59] VITALS: BP 153/76; PULSE 77; RESP 18; TEMP 36.2; O2SAT 97
[2023-05-03] MEDS: traMADoL HCL 50 MG TABLET PO (08:52)
[2023-05-03] MEDS: lamoTRIgine 100 MG TABLET PO ×2 (08:52→21:27)
[2023-05-03] MEDS: Memantine HCl 5 MG TABLET PO ×2 (08:52→21:28)
[2023-05-03] MEDS: polyethylene glycoL 3350 17 GM POWD.PACK PO (08:53)
--- NOTE | 2023-05-03 11:20 | P.PNPSI_ITS ---
Subjective Subjective Date of Service: 05/03/23 Reason For Visit: F31.9, F43.25 Subjective Notes: Conditional Voluntary Interim History: Pt slept through the night. He is pleasant on approach. No behavioral concerns. He is visible on the unit. He is eating well no behavioral concerns. 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: 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 Impaired Diagnostics Vital Signs (24Hr): Vital Signs - 24 hr 05/02/23 18:00 05/03/23 07:59 Temperature 96.6 F L 97.2 F Pulse Rate 75 77 Respiratory Rate 18 18 Blood Pressure 140/80 H 153/76 H Pulse Oximetry 96 97 Oxygen Delivery Method Room Air Room Air BMI result Body Mass Index 27.4 Labs 02/15/23 06:42 02/15/23 06:43 Medications Medications Current Medications Acetaminophen (Acetaminophen 325 Mg Tablet) 650 mg PO Q4H PRN PRN Reason: Fever Last Admin: 04/21/23 08:49 Dose: 650 mg Al Hydroxide/Mg Hydroxide (Magnesium Hydrox/Alum Hydrox 30 Ml Oral.Susp) 30 ml PO Q6H PRN PRN Reason: Heartburn/Nausea Artificial Tears (Artificial Tears 15 Ml Drops) 1 drop EYE-BOTH Q4H PRN PRN Reason: Dry Eyes Last Admin: 03/24/23 01:42 Dose: 1 drop Bisacodyl (Bisacodyl 5 Mg Tablet.Dr) 10 mg PO DAILY PRN PRN Reason: Constipation Last Admin: 04/01/23 09:11 Dose: 10 mg Hydroxyzine HCl (Hydroxyzine Hcl 25 Mg Tablet) 25 mg PO Q6H PRN PRN Reason: Anxiety Last Admin: 04/30/23 20:23 Dose: 25 mg Lamotrigine (Lamotrigine 100 Mg Tablet) 100 mg PO BID [facility] Last Admin: 05/03/23 08:52 Dose: 100 mg Lidocaine (Lidocaine 4 % Patch Adh..Patch) 1 patch TRANSDERMA DAILY [facility]; Protocol Last Admin: 05/03/23 08:55 Dose: Not Given Magnesium Hydroxide (Milk Of Magnesia 30 Ml Oral.Susp) 30 ml PO DAILY PRN PRN Reason: Constipation Last Admin: 05/02/23 11:03 Dose: 30 ml Memantine (Memantine Hcl 5 Mg Tablet) 5 mg PO BID [facility] Last Admin: 05/03/23 08:52 Dose: 5 mg Olanzapine (Olanzapine 2.5 Mg Tablet) 2.5 mg PO TID PRN PRN Reason: agitation Last Admin: 04/17/23 23:36 Dose: 2.5 mg Olanzapine (Olanzapine 7.5 Mg Tablet) 7.5 mg PO BEDTIME [facility] Last Admin: 05/02/23 20:57 Dose: 7.5 mg Polyethylene Glycol (Polyethylene Glycol 3350 17 Gm Powd.Pack) 17 gm PO DAILY [facility] Last Admin: 05/03/23 08:53 Dose: 17 gm Tramadol HCl (Tramadol Hcl 50 Mg Tablet) 50 mg PO Q6H PRN PRN Reason: Pain, Moderate(Pain Scale 4-6) Last Admin: 05/03/23 08:52 Dose: 50 mg Trazodone HCl (Trazodone Hcl 100 Mg Tablet) 100 mg PO BEDTIME [facility] Last Admin: 05/02/23 20:57 Dose: 100 mg Allergies Allergies Allergy/AdvReac Type Severity Reaction Status Date / Time pollen extracts Allergy Unknown unknown Verified 04/21/22 14:56 latex Allergy Rash Verified 10/31/22 18:30 Assessment & Plan Assessment & Plan (1) Bipolar disorder, now depressed: Status: Acute Code(s): F31.30 - Bipolar disorder, current episode depressed, mild or moderate severity, unspecified (2) Chronic back pain: Status: Acute Code(s): M54.9 - Dorsalgia, unspecified; G89.29 - Other chronic pain (3) Dementia: Status: Acute Code(s): F03.90 - Unspecified dementia, unspecified severity, without behavioral disturbance, psychotic disturbance, mood disturbance, and anxiety Plan 82 year old male with history hyperlipidemia, tubular adenoma colon, BPH, chronic normocytic anemia, 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 plan 1. Continue with same treatment. 2. Waiting for placement Reason for continued inpatient stay Substantial Risk for: inability to function Time Spent With Patient Time: Total time managing care of this patient today ____ minutes.
[2023-05-03 18:00] VITALS: BP 136/73; PULSE 76; RESP 16; TEMP 36.1; O2SAT 94
[2023-05-03] MEDS: traZODone HCL 100 MG TABLET PO (21:28)
[2023-05-03] MEDS: OLANZapine 7.5 MG TABLET PO (21:28)
[2023-05-04 08:00] VITALS: BP 140/75; PULSE 74; RESP 18; TEMP 36.8; O2SAT 96
[2023-05-04] MEDS: Lidocaine 4 % Patch ADH..PATCH 1 PATCH TRANSDERMA (08:46)
[2023-05-04] MEDS: lamoTRIgine 100 MG TABLET PO ×2 (08:47→20:19)
[2023-05-04] MEDS: Memantine HCl 5 MG TABLET PO ×2 (08:47→20:19)
[2023-05-04] MEDS: polyethylene glycoL 3350 17 GM POWD.PACK PO (08:47)
--- NOTE | 2023-05-04 11:39 | P.PNPSI_ITS ---
Subjective Subjective Date of Service: 05/04/23 Reason For Visit: F31.9, F43.25 Interim History: pt was in the bathroom throughout MD's time on unit. he acknowledged his presence there and had no complaints, although a proper interview was not able to be conducted. per staff, confused, irritable. taking meds, eating, sleeping. Mental Status Exam Mental Status Exam Narrative: not observed due to being in bathroom, but did exchange words with MD. speech clear, normal loudness, rate, amount. no complaints or concerns, no expressed SI/HI/AVH. Diagnostics Vital Signs (24Hr): Vital Signs - 24 hr 05/03/23 18:00 05/04/23 08:00 Temperature 97 F 98.2 F Pulse Rate 76 74 Respiratory Rate 16 18 Blood Pressure 136/73 140/75 H Pulse Oximetry 94 96 Oxygen Delivery Method Room Air Room Air BMI result Body Mass Index 27.4 Labs 02/15/23 06:42 02/15/23 06:43 Medications Medications Current Medications Acetaminophen (Acetaminophen 325 Mg Tablet) 650 mg PO Q4H PRN PRN Reason: Fever Last Admin: 04/21/23 08:49 Dose: 650 mg Al Hydroxide/Mg Hydroxide (Magnesium Hydrox/Alum Hydrox 30 Ml Oral.Susp) 30 ml PO Q6H PRN PRN Reason: Heartburn/Nausea Artificial Tears (Artificial Tears 15 Ml Drops) 1 drop EYE-BOTH Q4H PRN PRN Reason: Dry Eyes Last Admin: 03/24/23 01:42 Dose: 1 drop Bisacodyl (Bisacodyl 5 Mg Tablet.Dr) 10 mg PO DAILY PRN PRN Reason: Constipation Last Admin: 04/01/23 09:11 Dose: 10 mg Hydroxyzine HCl (Hydroxyzine Hcl 25 Mg Tablet) 25 mg PO Q6H PRN PRN Reason: Anxiety Last Admin: 04/30/23 20:23 Dose: 25 mg Lamotrigine (Lamotrigine 100 Mg Tablet) 100 mg PO BID [facility] Last Admin: 05/04/23 08:47 Dose: 100 mg Lidocaine (Lidocaine 4 % Patch Adh..Patch) 1 patch TRANSDERMA DAILY [facility]; Protocol Last Admin: 05/04/23 08:46 Dose: 1 patch Magnesium Hydroxide (Milk Of Magnesia 30 Ml Oral.Susp) 30 ml PO DAILY PRN PRN Reason: Constipation Last Admin: 05/02/23 11:03 Dose: 30 ml Memantine (Memantine Hcl 5 Mg Tablet) 5 mg PO BID [facility] Last Admin: 05/04/23 08:47 Dose: 5 mg Olanzapine (Olanzapine 2.5 Mg Tablet) 2.5 mg PO TID PRN PRN Reason: agitation Last Admin: 04/17/23 23:36 Dose: 2.5 mg Olanzapine (Olanzapine 7.5 Mg Tablet) 7.5 mg PO BEDTIME [facility] Last Admin: 05/03/23 21:28 Dose: 7.5 mg Polyethylene Glycol (Polyethylene Glycol 3350 17 Gm Powd.Pack) 17 gm PO DAILY [facility] Last Admin: 05/04/23 08:47 Dose: 17 gm Tramadol HCl (Tramadol Hcl 50 Mg Tablet) 50 mg PO Q6H PRN PRN Reason: Pain, Moderate(Pain Scale 4-6) Last Admin: 05/03/23 08:52 Dose: 50 mg Trazodone HCl (Trazodone Hcl 100 Mg Tablet) 100 mg PO BEDTIME [facility] Last Admin: 05/03/23 21:28 Dose: 100 mg Allergies Allergies Allergy/AdvReac Type Severity Reaction Status Date / Time pollen extracts Allergy Unknown unknown Verified 04/21/22 14:56 latex Allergy Rash Verified 10/31/22 18:30 Assessment & Plan Assessment & Plan (1) Bipolar disorder, now depressed: Status: Acute Code(s): F31.30 - Bipolar disorder, current episode depressed, mild or moderate severity, unspecified (2) Chronic back pain: Status: Acute Code(s): M54.9 - Dorsalgia, unspecified; G89.29 - Other chronic pain (3) Dementia: Status: Acute Code(s): F03.90 - Unspecified dementia, unspecified severity, without behavioral disturbance, psychotic disturbance, mood disturbance, and anxiety Plan 82 year old male with history hyperlipidemia, tubular adenoma colon, BPH, chronic normocytic anemia, 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 plan 1. Continue with same treatment. 2. Waiting for placement Reason for continued inpatient stay Substantial Risk for: inability to function Time Spent With Patient Time: Total time managing care of this patient today ____ minutes.
[2023-05-04 18:00] VITALS: BP 133/75; PULSE 68; RESP 18; TEMP 36.2; O2SAT 95
[2023-05-04] MEDS: traZODone HCL 100 MG TABLET PO (20:19)
[2023-05-04] MEDS: OLANZapine 7.5 MG TABLET PO (20:19)
[2023-05-05 08:10] VITALS: BP 139/76; PULSE 64; RESP 18; TEMP 36.6; O2SAT 100
[2023-05-05] MEDS: Lidocaine 4 % Patch ADH..PATCH 1 PATCH TRANSDERMA (08:17)
[2023-05-05] MEDS: lamoTRIgine 100 MG TABLET PO ×2 (08:18→20:50)
[2023-05-05] MEDS: Memantine HCl 5 MG TABLET PO ×2 (08:18→20:50)
[2023-05-05] MEDS: polyethylene glycoL 3350 17 GM POWD.PACK PO (08:19)
--- NOTE | 2023-05-05 11:14 | P.PNPSI_ITS ---
Subjective Subjective Date of Service: 05/05/23 Reason For Visit: F31.9, F43.25 Interim History: asleep for interview, not rousable to voice. later seen ambulating the [facility] being helped with his sweatshirt by staff. appeared to be minimally able to interact with staff to help himself. per staff, no change in presentation. profoundly confused, disorganized. Mental Status Exam Mental Status Exam Patient Appearance: Well Grooomed and Appropriate Level of Consciousness: Awake Patient Behavior: Guarded and Passive Affect Description: Constricted Patient Cognition Impaired: Yes Ability to Follow Directions: Good Speech Pattern: Clear Memory Description: Care Home Impaired Diagnostics Vital Signs (24Hr): Vital Signs - 24 hr 05/04/23 18:00 05/05/23 08:10 Temperature 97.2 F 97.9 F Pulse Rate 68 64 Respiratory Rate 18 18 Blood Pressure 133/75 139/76 Pulse Oximetry 95 100 Oxygen Delivery Method Room Air Room Air BMI result Body Mass Index 27.4 Labs 02/15/23 06:42 02/15/23 06:43 Medications Medications Current Medications Acetaminophen (Acetaminophen 325 Mg Tablet) 650 mg PO Q4H PRN PRN Reason: Fever Last Admin: 04/21/23 08:49 Dose: 650 mg Al Hydroxide/Mg Hydroxide (Magnesium Hydrox/Alum Hydrox 30 Ml Oral.Susp) 30 ml PO Q6H PRN PRN Reason: Heartburn/Nausea Artificial Tears (Artificial Tears 15 Ml Drops) 1 drop EYE-BOTH Q4H PRN PRN Reason: Dry Eyes Last Admin: 03/24/23 01:42 Dose: 1 drop Bisacodyl (Bisacodyl 5 Mg Tablet.) 10 mg PO DAILY PRN PRN Reason: Constipation Last Admin: 04/01/23 09:11 Dose: 10 mg Hydroxyzine HCl (Hydroxyzine Hcl 25 Mg Tablet) 25 mg PO Q6H PRN PRN Reason: Anxiety Last Admin: 04/30/23 20:23 Dose: 25 mg Lamotrigine (Lamotrigine 100 Mg Tablet) 100 mg PO BID [facility] Last Admin: 05/05/23 08:18 Dose: 100 mg Lidocaine (Lidocaine 4 % Patch Adh..Patch) 1 patch TRANSDERMA DAILY [facility]; Protocol Last Admin: 05/05/23 08:17 Dose: 1 patch Magnesium Hydroxide (Milk Of Magnesia 30 Ml Oral.Susp) 30 ml PO DAILY PRN PRN Reason: Constipation Last Admin: 05/02/23 11:03 Dose: 30 ml Memantine (Memantine Hcl 5 Mg Tablet) 5 mg PO BID [facility] Last Admin: 05/05/23 08:18 Dose: 5 mg Olanzapine (Olanzapine 2.5 Mg Tablet) 2.5 mg PO TID PRN PRN Reason: agitation Last Admin: 04/17/23 23:36 Dose: 2.5 mg Olanzapine (Olanzapine 7.5 Mg Tablet) 7.5 mg PO BEDTIME [facility] Last Admin: 05/04/23 20:19 Dose: 7.5 mg Polyethylene Glycol (Polyethylene Glycol 3350 17 Gm Powd.Pack) 17 gm PO DAILY [facility] Last Admin: 05/05/23 08:19 Dose: 17 gm Trazodone HCl (Trazodone Hcl 100 Mg Tablet) 100 mg PO BEDTIME [facility] Last Admin: 05/04/23 20:19 Dose: 100 mg Allergies Allergies Allergy/AdvReac Type Severity Reaction Status Date / Time pollen extracts Allergy Unknown unknown Verified 04/21/22 14:56 latex Allergy Rash Verified 10/31/22 18:30 Assessment & Plan Assessment & Plan (1) Bipolar disorder, now depressed: Status: Acute Code(s): F31.30 - Bipolar disorder, current episode depressed, mild or moderate severity, unspecified (2) Chronic back pain: Status: Acute Code(s): M54.9 - Dorsalgia, unspecified; G89.29 - Other chronic pain (3) Dementia: Status: Acute Code(s): F03.90 - Unspecified dementia, unspecified severity, without behavioral disturbance, psychotic disturbance, mood disturbance, and anxiety Plan 82 year old male with history hyperlipidemia, tubular adenoma colon, BPH, chronic normocytic anemia, 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 plan 1. Continue with same treatment. 2. Waiting for placement Reason for continued inpatient stay Substantial Risk for: inability to function and rapid decompensation Time Spent With Patient Time: Total time managing care of this patient today ____ minutes.
[2023-05-05 18:00] VITALS: BP 136/78; PULSE 72; RESP 17; TEMP 36.6; O2SAT 96
[2023-05-05] MEDS: OLANZapine 7.5 MG TABLET PO (20:50)
[2023-05-05] MEDS: traZODone HCL 100 MG TABLET PO (20:50)
[2023-05-06] MEDS: Acetaminophen 325 MG TABLET 650 MG PO (06:42)
--- NOTE | 2023-05-06 08:36 | HO.PSYCHPN ---
Subjective Subjective Date of Service: 05/06/23 Reason For Visit: F31.9, F43.25 Subjective Notes: Conditional Voluntary Guardianship: Yes Interim History: Pt slept through the night. He reports back pain, tramadol renewed. He is visible on the unit, social with select peers. No behavioral concerns. 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: [employer] Impaired Diagnostics Vital Signs (24Hr): Vital Signs - 24 hr 05/05/23 18:00 Temperature 97.9 F Pulse Rate 72 Respiratory Rate 17 Blood Pressure 136/78 Pulse Oximetry 96 Oxygen Delivery Method Room Air BMI result Body Mass Index 27.4 Labs 02/15/23 06:42 02/15/23 06:43 Medications Medications Current Medications Acetaminophen (Acetaminophen 325 Mg Tablet) 650 mg PO Q4H PRN PRN Reason: Fever Last Admin: 05/06/23 06:42 Dose: 650 mg Al Hydroxide/Mg Hydroxide (Magnesium Hydrox/Alum Hydrox 30 Ml Oral.Susp) 30 ml PO Q6H PRN PRN Reason: Heartburn/Nausea Artificial Tears (Artificial Tears 15 Ml Drops) 1 drop EYE-BOTH Q4H PRN PRN Reason: Dry Eyes Last Admin: 03/24/23 01:42 Dose: 1 drop Bisacodyl (Bisacodyl 5 Mg Tablet.Dr) 10 mg PO DAILY PRN PRN Reason: Constipation Last Admin: 04/01/23 09:11 Dose: 10 mg Hydroxyzine HCl (Hydroxyzine Hcl 25 Mg Tablet) 25 mg PO Q6H PRN PRN Reason: Anxiety Last Admin: 04/30/23 20:23 Dose: 25 mg Lamotrigine (Lamotrigine 100 Mg Tablet) 100 mg PO BID [facility] Last Admin: 05/05/23 20:50 Dose: 100 mg Lidocaine (Lidocaine 4 % Patch Adh..Patch) 1 patch TRANSDERMA DAILY [facility]; Protocol Last Admin: 05/05/23 08:17 Dose: 1 patch Magnesium Hydroxide (Milk Of Magnesia 30 Ml Oral.Susp) 30 ml PO DAILY PRN PRN Reason: Constipation Last Admin: 05/02/23 11:03 Dose: 30 ml Memantine (Memantine Hcl 5 Mg Tablet) 5 mg PO BID [facility] Last Admin: 05/05/23 20:50 Dose: 5 mg Olanzapine (Olanzapine 2.5 Mg Tablet) 2.5 mg PO TID PRN PRN Reason: agitation Last Admin: 04/17/23 23:36 Dose: 2.5 mg Olanzapine (Olanzapine 7.5 Mg Tablet) 7.5 mg PO BEDTIME [facility] Last Admin: 05/05/23 20:50 Dose: 7.5 mg Polyethylene Glycol (Polyethylene Glycol 3350 17 Gm Powd.Pack) 17 gm PO DAILY [facility] Last Admin: 05/05/23 08:19 Dose: 17 gm Trazodone HCl (Trazodone Hcl 100 Mg Tablet) 100 mg PO BEDTIME [facility] Last Admin: 05/05/23 20:50 Dose: 100 mg Allergies Allergies Allergy/AdvReac Type Severity Reaction Status Date / Time pollen extracts Allergy Unknown unknown Verified 04/21/22 14:56 latex Allergy Rash Verified 10/31/22 18:30 Assessment & Plan Assessment & Plan (1) Bipolar disorder, now depressed: Status: Acute Code(s): F31.30 - Bipolar disorder, current episode depressed, mild or moderate severity, unspecified (2) Chronic back pain: Status: Acute Code(s): M54.9 - Dorsalgia, unspecified; G89.29 - Other chronic pain (3) Dementia: Status: Acute Code(s): F03.90 - Unspecified dementia, unspecified severity, without behavioral disturbance, psychotic disturbance, mood disturbance, and anxiety Plan 82 year old male with history hyperlipidemia, tubular adenoma colon, BPH, chronic normocytic anemia, 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 plan 1. Continue with same treatment. 2. Waiting for placement Reason for continued inpatient stay Substantial Risk for: inability to function Time Spent With Patient Time: Total time managing care of this patient today ____ minutes.
[2023-05-06 08:59] VITALS: BP 121/56; PULSE 76; RESP 18; TEMP 36.1; O2SAT 95
[2023-05-06] MEDS: lamoTRIgine 100 MG TABLET PO ×2 (09:11→20:52)
[2023-05-06] MEDS: Memantine HCl 5 MG TABLET PO ×2 (09:11→20:52)
[2023-05-06] MEDS: traMADoL HCL 50 MG TABLET PO (09:12)
[2023-05-06 18:00] VITALS: BP 111/60; PULSE 77; RESP 18; TEMP 36.2; O2SAT 95
[2023-05-06] MEDS: hydrOXYzine HCL 25 MG TABLET PO (20:52)
[2023-05-06] MEDS: OLANZapine 7.5 MG TABLET PO (20:52)
[2023-05-06] MEDS: traZODone HCL 100 MG TABLET PO (20:52)
[2023-05-07 08:14] VITALS: BP 118/67; PULSE 73; RESP 18; TEMP 36.3; O2SAT 95
[2023-05-07] MEDS: polyethylene glycoL 3350 17 GM POWD.PACK PO (08:48)
[2023-05-07] MEDS: lamoTRIgine 100 MG TABLET PO ×2 (08:48→20:19)
[2023-05-07] MEDS: Memantine HCl 5 MG TABLET PO ×2 (08:48→20:19)
[2023-05-07] MEDS: traMADoL HCL 50 MG TABLET PO (08:48)
--- NOTE | 2023-05-07 10:16 | HO.PSYCHPN ---
Subjective Subjective Date of Service: 05/07/23 Reason For Visit: F31.9, F43.25 Subjective Notes: Conditional Voluntary Interim History: The nursing staff reported no changes in his mental status, compliant with treatment. On interview the patient is pleasantly confused, easily redirectable, waiting for placement. Mental Status Exam Mental Status Exam Patient Appearance: Appropriate Patient Orientation: Person Level of Consciousness: Disoriented and Alert Patient Behavior: Passive Mood Description: Withdrawn Affect Description: Blunted Patient Cognition Impaired: Yes Ability to Follow Directions: Fair Speech Pattern: Clear Hallucinations: None Delusions: Not Present Thought Process: Distracted and Slowed Thinking Thought Content: positive for [place] and positive for Poverty of Content Judgement: Fair Diagnostics Vital Signs (24Hr): Vital Signs - 24 hr 05/06/23 18:00 05/07/23 08:14 Temperature 97.2 F 97.3 F Pulse Rate 77 73 Respiratory Rate 18 18 Blood Pressure 111/60 118/67 Pulse Oximetry 95 95 Oxygen Delivery Method Room Air Room Air BMI result Body Mass Index 27.4 Labs 02/15/23 06:42 02/15/23 06:43 Medications Medications Current Medications Acetaminophen (Acetaminophen 325 Mg Tablet) 650 mg PO Q4H PRN PRN Reason: Fever Last Admin: 05/06/23 06:42 Dose: 650 mg Al Hydroxide/Mg Hydroxide (Magnesium Hydrox/Alum Hydrox 30 Ml Oral.Susp) 30 ml PO Q6H PRN PRN Reason: Heartburn/Nausea Artificial Tears (Artificial Tears 15 Ml Drops) 1 drop EYE-BOTH Q4H PRN PRN Reason: Dry Eyes Last Admin: 03/24/23 01:42 Dose: 1 drop Bisacodyl (Bisacodyl 5 Mg Tablet.) 10 mg PO DAILY PRN PRN Reason: Constipation Last Admin: 04/01/23 09:11 Dose: 10 mg Hydroxyzine HCl (Hydroxyzine Hcl 25 Mg Tablet) 25 mg PO Q6H PRN PRN Reason: Anxiety Last Admin: 05/06/23 20:52 Dose: 25 mg Lamotrigine (Lamotrigine 100 Mg Tablet) 100 mg PO BID [facility] Last Admin: 05/07/23 08:48 Dose: 100 mg Lidocaine (Lidocaine 4 % Patch Adh..Patch) 1 patch TRANSDERMA DAILY [facility]; Protocol Last Admin: 05/07/23 08:50 Dose: Not Given Magnesium Hydroxide (Milk Of Magnesia 30 Ml Oral.Susp) 30 ml PO DAILY PRN PRN Reason: Constipation Last Admin: 05/02/23 11:03 Dose: 30 ml Memantine (Memantine Hcl 5 Mg Tablet) 5 mg PO BID [facility] Last Admin: 05/07/23 08:48 Dose: 5 mg Olanzapine (Olanzapine 2.5 Mg Tablet) 2.5 mg PO TID PRN PRN Reason: agitation Last Admin: 04/17/23 23:36 Dose: 2.5 mg Olanzapine (Olanzapine 7.5 Mg Tablet) 7.5 mg PO BEDTIME [facility] Last Admin: 05/06/23 20:52 Dose: 7.5 mg Polyethylene Glycol (Polyethylene Glycol 3350 17 Gm Powd.Pack) 17 gm PO DAILY [facility] Last Admin: 05/07/23 08:48 Dose: 17 gm Tramadol HCl (Tramadol Hcl 50 Mg Tablet) 50 mg PO Q6H PRN PRN Reason: moderate, pain Last Admin: 05/07/23 08:48 Dose: 50 mg Trazodone HCl (Trazodone Hcl 100 Mg Tablet) 100 mg PO BEDTIME [facility] Last Admin: 05/06/23 20:52 Dose: 100 mg Allergies Allergies Allergy/AdvReac Type Severity Reaction Status Date / Time pollen extracts Allergy Unknown unknown Verified 04/21/22 14:56 latex Allergy Rash Verified 10/31/22 18:30 Assessment & Plan Assessment & Plan (1) Bipolar disorder, now depressed: Status: Acute Code(s): F31.30 - Bipolar disorder, current episode depressed, mild or moderate severity, unspecified (2) Chronic back pain: Status: Acute Code(s): M54.9 - Dorsalgia, unspecified; G89.29 - Other chronic pain (3) Dementia: Status: Acute Code(s): F03.90 - Unspecified dementia, unspecified severity, without behavioral disturbance, psychotic disturbance, mood disturbance, and anxiety Plan 82 year old male with history hyperlipidemia, tubular adenoma colon, BPH, chronic normocytic anemia, 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 plan 1. Continue with same treatment. 2. Waiting for placement Reason for continued inpatient stay Substantial Risk for: inability to function, rapid decompensation and med/psych decompensation Time Spent With Patient Time: Total time managing care of this patient today __20__ minutes.
[2023-05-07 19:45] VITALS: BP 123/70; PULSE 72; RESP 18; TEMP 36.1; O2SAT 97
[2023-05-07] MEDS: traZODone HCL 100 MG TABLET PO (20:19)
[2023-05-07] MEDS: OLANZapine 7.5 MG TABLET PO (20:19)
[2023-05-08 08:00] VITALS: BP 120/70; PULSE 75; RESP 18; TEMP 36.4; O2SAT 97
[2023-05-08] MEDS: polyethylene glycoL 3350 17 GM POWD.PACK PO (08:01)
[2023-05-08] MEDS: Lidocaine 4 % Patch ADH..PATCH 1 PATCH TRANSDERMA (08:01)
[2023-05-08] MEDS: lamoTRIgine 100 MG TABLET PO ×2 (08:02→20:36)
[2023-05-08] MEDS: Memantine HCl 5 MG TABLET PO ×2 (08:02→20:37)
--- NOTE | 2023-05-08 12:50 | P.PNPSI_ITS ---
Subjective Subjective Date of Service: 05/08/23 Reason For Visit: F31.9, F43.25 Subjective Notes: Conditional Voluntary Interim History: The nursing staff reported the patient had been compliant with treatment no changes in his mental status. The adoption social worker reported [facility] as soon as he is financially cleared. On interview the patient denies new symptoms, waiting for placement. Mental Status Exam Mental Status Exam Patient Appearance: Appropriate Patient Orientation: Person Level of Consciousness: Awake Patient Behavior: Guarded and Passive Mood Description: Withdrawn Affect Description: Constricted Patient Cognition Impaired: Yes Ability to Follow Directions: Good Speech Pattern: Clear Hallucinations: None Delusions: Not Present Thought Process: Distracted and Slowed Thinking Thought Content: positive for [place] Judgement: Poor Diagnostics Vital Signs (24Hr): Vital Signs - 24 hr 05/07/23 19:45 05/08/23 08:00 Temperature 97.0 F 97.6 F Pulse Rate 72 75 Respiratory Rate 18 18 Blood Pressure 123/70 120/70 Pulse Oximetry 97 97 Oxygen Delivery Method Room Air Room Air BMI result Body Mass Index 27.4 Labs 02/15/23 06:42 02/15/23 06:43 Medications Medications Current Medications Acetaminophen (Acetaminophen 325 Mg Tablet) 650 mg PO Q4H PRN PRN Reason: Fever Last Admin: 05/06/23 06:42 Dose: 650 mg Al Hydroxide/Mg Hydroxide (Magnesium Hydrox/Alum Hydrox 30 Ml Oral.Susp) 30 ml PO Q6H PRN PRN Reason: Heartburn/Nausea Artificial Tears (Artificial Tears 15 Ml Drops) 1 drop EYE-BOTH Q4H PRN PRN Reason: Dry Eyes Last Admin: 03/24/23 01:42 Dose: 1 drop Bisacodyl (Bisacodyl 5 Mg Tablet.Dr) 10 mg PO DAILY PRN PRN Reason: Constipation Last Admin: 04/01/23 09:11 Dose: 10 mg Hydroxyzine HCl (Hydroxyzine Hcl 25 Mg Tablet) 25 mg PO Q6H PRN PRN Reason: Anxiety Last Admin: 05/06/23 20:52 Dose: 25 mg Lamotrigine (Lamotrigine 100 Mg Tablet) 100 mg PO BID [facility] Last Admin: 05/08/23 08:02 Dose: 100 mg Lidocaine (Lidocaine 4 % Patch Adh..Patch) 1 patch TRANSDERMA DAILY [facility]; Protocol Last Admin: 05/08/23 08:01 Dose: 1 patch Magnesium Hydroxide (Milk Of Magnesia 30 Ml Oral.Susp) 30 ml PO DAILY PRN PRN Reason: Constipation Last Admin: 05/02/23 11:03 Dose: 30 ml Memantine (Memantine Hcl 5 Mg Tablet) 5 mg PO BID [facility] Last Admin: 05/08/23 08:02 Dose: 5 mg Olanzapine (Olanzapine 2.5 Mg Tablet) 2.5 mg PO TID PRN PRN Reason: agitation Last Admin: 04/17/23 23:36 Dose: 2.5 mg Olanzapine (Olanzapine 7.5 Mg Tablet) 7.5 mg PO BEDTIME [facility] Last Admin: 05/07/23 20:19 Dose: 7.5 mg Polyethylene Glycol (Polyethylene Glycol 3350 17 Gm Powd.Pack) 17 gm PO DAILY [facility] Last Admin: 05/08/23 08:01 Dose: 17 gm Tramadol HCl (Tramadol Hcl 50 Mg Tablet) 50 mg PO Q6H PRN PRN Reason: moderate, pain Last Admin: 05/07/23 08:48 Dose: 50 mg Trazodone HCl (Trazodone Hcl 100 Mg Tablet) 100 mg PO BEDTIME [facility] Last Admin: 05/07/23 20:19 Dose: 100 mg Allergies Allergies Allergy/AdvReac Type Severity Reaction Status Date / Time pollen extracts Allergy Unknown unknown Verified 04/21/22 14:56 latex Allergy Rash Verified 10/31/22 18:30 Assessment & Plan Assessment & Plan (1) Bipolar disorder, now depressed: Status: Acute Code(s): F31.30 - Bipolar disorder, current episode depressed, mild or moderate severity, unspecified (2) Chronic back pain: Status: Acute Code(s): M54.9 - Dorsalgia, unspecified; G89.29 - Other chronic pain (3) Dementia: Status: Acute Code(s): F03.90 - Unspecified dementia, unspecified severity, without behavioral disturbance, psychotic disturbance, mood disturbance, and anxiety Plan 82 year old male with history hyperlipidemia, tubular adenoma colon, BPH, chronic normocytic anemia, 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 plan 1. Continue with same treatment. 2. Waiting for placement Reason for continued inpatient stay Substantial Risk for: inability to function, rapid decompensation and med/psych decompensation Time Spent With Patient Time: Total time managing care of this patient today _20___ minutes.
[2023-05-08 18:00] VITALS: BP 135/63; PULSE 75; RESP 18; TEMP 36; O2SAT 96
[2023-05-08] MEDS: traZODone HCL 100 MG TABLET PO (20:37)
[2023-05-08] MEDS: OLANZapine 7.5 MG TABLET PO (20:37)
[2023-05-09 08:00] VITALS: BP 100/59; PULSE 80; RESP 16; TEMP 36.6; O2SAT 95
[2023-05-09] MEDS: Memantine HCl 5 MG TABLET PO ×2 (08:27→21:01)
[2023-05-09] MEDS: lamoTRIgine 100 MG TABLET PO ×2 (08:27→21:01)
[2023-05-09] MEDS: Lidocaine 4 % Patch ADH..PATCH 1 PATCH TRANSDERMA (08:30)
[2023-05-09] MEDS: polyethylene glycoL 3350 17 GM POWD.PACK PO (08:37)
--- NOTE | 2023-05-09 13:37 | P.PNPSI_ITS ---
Subjective Subjective Date of Service: 05/09/23 Reason For Visit: F31.9, F43.25 Subjective Notes: Conditional Voluntary Interim History: The nursing staff reported no changes in his mental status fully compliant with treatment. Yesterday he stated he needed to get out to go to his sister's he was very confused but easily redirectable. On interview the patient denies new symptoms, waiting for placement. Mental Status Exam Mental Status Exam Patient Appearance: Appropriate Patient Orientation: Person Level of Consciousness: Awake Patient Behavior: Guarded and Passive Mood Description: Withdrawn Affect Description: Constricted Patient Cognition Impaired: Yes Ability to Follow Directions: Good Speech Pattern: Clear Hallucinations: None Delusions: Not Present Thought Process: Distracted Thought Content: positive for Poverty of Content Judgement: Poor Diagnostics Vital Signs (24Hr): Vital Signs - 24 hr 05/08/23 18:00 05/09/23 08:00 Temperature 96.8 F 97.8 F Pulse Rate 75 80 Respiratory Rate 18 16 Blood Pressure 135/63 100/59 L Pulse Oximetry 96 95 Oxygen Delivery Method Room Air Room Air BMI result Body Mass Index 27.4 Labs 02/15/23 06:42 02/15/23 06:43 Medications Medications Current Medications Acetaminophen (Acetaminophen 325 Mg Tablet) 650 mg PO Q4H PRN PRN Reason: Fever Last Admin: 05/06/23 06:42 Dose: 650 mg Al Hydroxide/Mg Hydroxide (Magnesium Hydrox/Alum Hydrox 30 Ml Oral.Susp) 30 ml PO Q6H PRN PRN Reason: Heartburn/Nausea Artificial Tears (Artificial Tears 15 Ml Drops) 1 drop EYE-BOTH Q4H PRN PRN Reason: Dry Eyes Last Admin: 03/24/23 01:42 Dose: 1 drop Bisacodyl (Bisacodyl 5 Mg Tablet.Dr) 10 mg PO DAILY PRN PRN Reason: Constipation Last Admin: 04/01/23 09:11 Dose: 10 mg Hydroxyzine HCl (Hydroxyzine Hcl 25 Mg Tablet) 25 mg PO Q6H PRN PRN Reason: Anxiety Last Admin: 05/06/23 20:52 Dose: 25 mg Lamotrigine (Lamotrigine 100 Mg Tablet) 100 mg PO BID [facility] Last Admin: 05/09/23 08:27 Dose: 100 mg Lidocaine (Lidocaine 4 % Patch Adh..Patch) 1 patch TRANSDERMA DAILY [facility]; Protocol Last Admin: 05/09/23 08:30 Dose: 1 patch Magnesium Hydroxide (Milk Of Magnesia 30 Ml Oral.Susp) 30 ml PO DAILY PRN PRN Reason: Constipation Last Admin: 05/02/23 11:03 Dose: 30 ml Memantine (Memantine Hcl 5 Mg Tablet) 5 mg PO BID [facility] Last Admin: 05/09/23 08:27 Dose: 5 mg Olanzapine (Olanzapine 2.5 Mg Tablet) 2.5 mg PO TID PRN PRN Reason: agitation Last Admin: 04/17/23 23:36 Dose: 2.5 mg Olanzapine (Olanzapine 7.5 Mg Tablet) 7.5 mg PO BEDTIME [facility] Last Admin: 05/08/23 20:37 Dose: 7.5 mg Polyethylene Glycol (Polyethylene Glycol 3350 17 Gm Powd.Pack) 17 gm PO DAILY [facility] Last Admin: 05/09/23 08:37 Dose: 17 gm Tramadol HCl (Tramadol Hcl 50 Mg Tablet) 50 mg PO Q6H PRN PRN Reason: moderate, pain Last Admin: 05/07/23 08:48 Dose: 50 mg Trazodone HCl (Trazodone Hcl 100 Mg Tablet) 100 mg PO BEDTIME [facility] Last Admin: 05/08/23 20:37 Dose: 100 mg Allergies Allergies Allergy/AdvReac Type Severity Reaction Status Date / Time pollen extracts Allergy Unknown unknown Verified 04/21/22 14:56 latex Allergy Rash Verified 10/31/22 18:30 Assessment & Plan Assessment & Plan (1) Bipolar disorder, now depressed: Status: Acute Code(s): F31.30 - Bipolar disorder, current episode depressed, mild or moderate severity, unspecified (2) Chronic back pain: Status: Acute Code(s): M54.9 - Dorsalgia, unspecified; G89.29 - Other chronic pain (3) Dementia: Status: Acute Code(s): F03.90 - Unspecified dementia, unspecified severity, without behavioral disturbance, psychotic disturbance, mood disturbance, and anxiety Plan 82 year old male with history hyperlipidemia, tubular adenoma colon, BPH, chronic normocytic anemia, 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 plan 1. Continue with same treatment. 2. Waiting for placement Reason for continued inpatient stay Substantial Risk for: inability to function, rapid decompensation and med/psych decompensation Time Spent With Patient Time: Total time managing care of this patient today __20__ minutes.
[2023-05-09 19:40] VITALS: BP 109/61; PULSE 74; RESP 16; TEMP 36.8; O2SAT 96
[2023-05-09] MEDS: OLANZapine 7.5 MG TABLET PO (21:01)
[2023-05-09] MEDS: traZODone HCL 100 MG TABLET PO (21:01)
[2023-05-10] MEDS: traMADoL HCL 50 MG TABLET PO ×2 (06:00→21:32)
[2023-05-10 07:45] VITALS: BP 105/59; PULSE 68; RESP 18; TEMP 36.5; O2SAT 94
[2023-05-10] MEDS: polyethylene glycoL 3350 17 GM POWD.PACK PO (08:51)
[2023-05-10] MEDS: lamoTRIgine 100 MG TABLET PO ×2 (08:51→21:31)
[2023-05-10] MEDS: Memantine HCl 5 MG TABLET PO ×2 (08:51→21:32)
[2023-05-10] MEDS: Lidocaine 4 % Patch ADH..PATCH 1 PATCH TRANSDERMA (08:51)
--- NOTE | 2023-05-10 14:55 | P.PNPSI_ITS ---
Subjective Subjective Date of Service: 05/10/23 Reason For Visit: F31.9, F43.25 Subjective Notes: Conditional Voluntary Interim History: The nursing staff reported no changes in his mental status cooperative and pleasant but confused. On interview the patient denies new symptoms, waiting for placement Mental Status Exam Mental Status Exam Patient Appearance: Well Grooomed and Appropriate Patient Orientation: Person Level of Consciousness: Awake Patient Behavior: Cooperative Mood Description: Calm Affect Description: Blunted Patient Cognition Impaired: Yes Ability to Follow Directions: Good Speech Pattern: Clear Hallucinations: None Delusions: Not Present Thought Process: Slowed Thinking Thought Content: positive for [place] and positive for Poverty of Content Judgement: Poor Diagnostics Vital Signs (24Hr): Vital Signs - 24 hr 05/09/23 19:40 05/10/23 07:45 Temperature 98.2 F 97.7 F Pulse Rate 74 68 Respiratory Rate 16 18 Blood Pressure 109/61 105/59 L Pulse Oximetry 96 94 Oxygen Delivery Method Room Air Room Air BMI result Body Mass Index 27.4 Labs 02/15/23 06:42 02/15/23 06:43 Medications Medications Current Medications Acetaminophen (Acetaminophen 325 Mg Tablet) 650 mg PO Q4H PRN PRN Reason: Fever Last Admin: 05/06/23 06:42 Dose: 650 mg Al Hydroxide/Mg Hydroxide (Magnesium Hydrox/Alum Hydrox 30 Ml Oral.Susp) 30 ml PO Q6H PRN PRN Reason: Heartburn/Nausea Artificial Tears (Artificial Tears 15 Ml Drops) 1 drop EYE-BOTH Q4H PRN PRN Reason: Dry Eyes Last Admin: 03/24/23 01:42 Dose: 1 drop Bisacodyl (Bisacodyl 5 Mg Tablet.Dr) 10 mg PO DAILY PRN PRN Reason: Constipation Last Admin: 04/01/23 09:11 Dose: 10 mg Hydroxyzine HCl (Hydroxyzine Hcl 25 Mg Tablet) 25 mg PO Q6H PRN PRN Reason: Anxiety Last Admin: 05/06/23 20:52 Dose: 25 mg Lamotrigine (Lamotrigine 100 Mg Tablet) 100 mg PO BID [facility] Last Admin: 05/10/23 08:51 Dose: 100 mg Lidocaine (Lidocaine 4 % Patch Adh..Patch) 1 patch TRANSDERMA DAILY [facility]; Protocol Last Admin: 05/10/23 08:51 Dose: 1 patch Magnesium Hydroxide (Milk Of Magnesia 30 Ml Oral.Susp) 30 ml PO DAILY PRN PRN Reason: Constipation Last Admin: 05/02/23 11:03 Dose: 30 ml Memantine (Memantine Hcl 5 Mg Tablet) 5 mg PO BID [facility] Last Admin: 05/10/23 08:51 Dose: 5 mg Olanzapine (Olanzapine 2.5 Mg Tablet) 2.5 mg PO TID PRN PRN Reason: agitation Last Admin: 04/17/23 23:36 Dose: 2.5 mg Olanzapine (Olanzapine 7.5 Mg Tablet) 7.5 mg PO BEDTIME [facility] Last Admin: 05/09/23 21:01 Dose: 7.5 mg Polyethylene Glycol (Polyethylene Glycol 3350 17 Gm Powd.Pack) 17 gm PO DAILY [facility] Last Admin: 05/10/23 08:51 Dose: 17 gm Tramadol HCl (Tramadol Hcl 50 Mg Tablet) 50 mg PO Q6H PRN PRN Reason: moderate, pain Last Admin: 05/10/23 06:00 Dose: 50 mg Trazodone HCl (Trazodone Hcl 100 Mg Tablet) 100 mg PO BEDTIME [facility] Last Admin: 05/09/23 21:01 Dose: 100 mg Allergies Allergies Allergy/AdvReac Type Severity Reaction Status Date / Time pollen extracts Allergy Unknown unknown Verified 04/21/22 14:56 latex Allergy Rash Verified 10/31/22 18:30 Assessment & Plan Assessment & Plan (1) Bipolar disorder, now depressed: Status: Acute Code(s): F31.30 - Bipolar disorder, current episode depressed, mild or moderate severity, unspecified (2) Chronic back pain: Status: Acute Code(s): M54.9 - Dorsalgia, unspecified; G89.29 - Other chronic pain (3) Dementia: Status: Acute Code(s): F03.90 - Unspecified dementia, unspecified severity, without behavioral disturbance, psychotic disturbance, mood disturbance, and anxiety Plan 82 year old male with history hyperlipidemia, tubular adenoma colon, BPH, chronic normocytic anemia, 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 plan 1. Continue with same treatment. 2. Waiting for placement Reason for continued inpatient stay Substantial Risk for: inability to function, rapid decompensation and med/psych decompensation Time Spent With Patient Time: Total time managing care of this patient today __20__ minutes.
[2023-05-10 19:35] VITALS: BP 105/63; PULSE 67; RESP 18; TEMP 36.6; O2SAT 95
[2023-05-10] MEDS: OLANZapine 7.5 MG TABLET PO (21:31)
[2023-05-10] MEDS: traZODone HCL 100 MG TABLET PO (21:32)
[2023-05-11] MEDS: traMADoL HCL 50 MG TABLET PO ×2 (03:10→09:56)
[2023-05-11] MEDS: Acetaminophen 325 MG TABLET 650 MG PO (03:11)
[2023-05-11 09:49] VITALS: BP 115/62; PULSE 75; RESP 18; TEMP 36.2; O2SAT 94
[2023-05-11] MEDS: lamoTRIgine 100 MG TABLET PO ×2 (09:56→20:37)
[2023-05-11] MEDS: Memantine HCl 5 MG TABLET PO ×2 (09:56→20:37)
[2023-05-11] MEDS: polyethylene glycoL 3350 17 GM POWD.PACK PO (09:56)
[2023-05-11] MEDS: Lidocaine 4 % Patch ADH..PATCH 1 PATCH TRANSDERMA (10:01)
--- NOTE | 2023-05-11 14:54 | HO.PSYCHPN ---
Subjective Subjective Date of Service: 05/11/23 Reason For Visit: F31.9, F43.25 Interim History: No behavior management issues. Sleeping and eating OK. Found in another patient's bed. Able to dress self with some assistance. Has his shirt on backwards. Complains of some pain in his legs that gets better when he walks. Medication Compliance: Yes Side effects from medications: No Review of Systems Acute medical concerns: No Medical Review of Systems: unchanged Mental Status Exam Mental Status Exam Patient Appearance: Unkempt Patient Orientation: Person Level of Consciousness: Alert Patient Behavior: Wandering Mood Description: Apprehensive Affect Description: Anxious Patient Cognition Impaired: Yes Ability to Follow Directions: Fair Speech Pattern: Clear Memory Description: Immediate Impaired Hallucinations: None Delusions: Not Present Thought Process: Slowed Thinking Thought Content: positive for Poverty of Content Depressive Symptoms: Increased Irritability and Muscle Pain Judgement: Fair Diagnostics Vital Signs (24Hr): Vital Signs - 24 hr 05/10/23 19:35 05/11/23 09:49 Temperature 97.8 F 97.2 F Pulse Rate 67 75 Respiratory Rate 18 18 Blood Pressure 105/63 115/62 Pulse Oximetry 95 94 Oxygen Delivery Method Room Air Room Air BMI result Body Mass Index 27.4 Labs 02/15/23 06:42 02/15/23 06:43 Medications Medications Current Medications Acetaminophen (Acetaminophen 325 Mg Tablet) 650 mg PO Q4H PRN PRN Reason: Fever Last Admin: 05/11/23 03:11 Dose: 650 mg Al Hydroxide/Mg Hydroxide (Magnesium Hydrox/Alum Hydrox 30 Ml Oral.Susp) 30 ml PO Q6H PRN PRN Reason: Heartburn/Nausea Artificial Tears (Artificial Tears 15 Ml Drops) 1 drop EYE-BOTH Q4H PRN PRN Reason: Dry Eyes Last Admin: 03/24/23 01:42 Dose: 1 drop Bisacodyl (Bisacodyl 5 Mg Tablet.Dr) 10 mg PO DAILY PRN PRN Reason: Constipation Last Admin: 04/01/23 09:11 Dose: 10 mg Hydroxyzine HCl (Hydroxyzine Hcl 25 Mg Tablet) 25 mg PO Q6H PRN PRN Reason: Anxiety Last Admin: 05/06/23 20:52 Dose: 25 mg Lamotrigine (Lamotrigine 100 Mg Tablet) 100 mg PO BID [facility] Last Admin: 05/11/23 09:56 Dose: 100 mg Lidocaine (Lidocaine 4 % Patch Adh..Patch) 1 patch TRANSDERMA DAILY [facility]; Protocol Last Admin: 05/11/23 10:01 Dose: 1 patch Magnesium Hydroxide (Milk Of Magnesia 30 Ml Oral.Susp) 30 ml PO DAILY PRN PRN Reason: Constipation Last Admin: 05/02/23 11:03 Dose: 30 ml Memantine (Memantine Hcl 5 Mg Tablet) 5 mg PO BID [facility] Last Admin: 05/11/23 09:56 Dose: 5 mg Olanzapine (Olanzapine 2.5 Mg Tablet) 2.5 mg PO TID PRN PRN Reason: agitation Last Admin: 04/17/23 23:36 Dose: 2.5 mg Olanzapine (Olanzapine 7.5 Mg Tablet) 7.5 mg PO BEDTIME [facility] Last Admin: 05/10/23 21:31 Dose: 7.5 mg Polyethylene Glycol (Polyethylene Glycol 3350 17 Gm Powd.Pack) 17 gm PO DAILY [facility] Last Admin: 05/11/23 09:56 Dose: 17 gm Tramadol HCl (Tramadol Hcl 50 Mg Tablet) 50 mg PO Q6H PRN PRN Reason: moderate, pain Last Admin: 05/11/23 09:56 Dose: 50 mg Trazodone HCl (Trazodone Hcl 100 Mg Tablet) 100 mg PO BEDTIME [facility] Last Admin: 05/10/23 21:32 Dose: 100 mg Allergies Allergies Allergy/AdvReac Type Severity Reaction Status Date / Time pollen extracts Allergy Unknown unknown Verified 04/21/22 14:56 latex Allergy Rash Verified 10/31/22 18:30 Assessment & Plan Assessment & Plan (1) Bipolar disorder, now depressed: Status: Acute Code(s): F31.30 - Bipolar disorder, current episode depressed, mild or moderate severity, unspecified Assessment and Plan: Continue with current regimen (2) Chronic back pain: Status: Acute Code(s): M54.9 - Dorsalgia, unspecified; G89.29 - Other chronic pain Assessment and Plan: No change in management (3) Dementia: Status: Acute Code(s): F03.90 - Unspecified dementia, unspecified severity, without behavioral disturbance, psychotic disturbance, mood disturbance, and anxiety Assessment and Plan: continue memantine Plan 82 year old male with history hyperlipidemia, tubular adenoma colon, BPH, chronic normocytic anemia, 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 plan 1. Continue with same treatment. 2. Waiting for placement Reason for continued inpatient stay Substantial Risk for: med/psych decompensation Time Spent With Patient Time: Total time managing care of this patient today ____ minutes.
--- NOTE | 2023-05-11 15:00 | HO.PSYCHPN ---
Subjective Subjective Date of Service: 05/11/23 Reason For Visit: F31.9, F43.25 Interim History: Had rapid response yesterday. Hospitalists consulting. Potassium was 6.2 earlier. Receiving IV fluids. Repeat potassium this afternoon was 5.1. Has been sleeping much of the day. Is confused when wakening Medication Compliance: Yes Side effects from medications: No Attending Groups: No Review of Systems Acute medical concerns: Yes As above Medical Review of Systems: unchanged Review of Systems Review of Systems Back pain that is chronic in nature, no incontinence urinary or donita, no fever or chills, and weakness in the legs Yes all other systems are reviewed and are negative and Unobtainable due to mental status Mental Status Exam Mental Status Exam Narrative: not observed due to being in bathroom, but did exchange words with MD. speech clear, normal loudness, rate, amount. no complaints or concerns, no expressed SI/HI/AVH. Patient Appearance: Unkempt Patient Orientation: Person Level of Consciousness: Lethargic Patient Behavior: Passive Mood Description: Withdrawn Affect Description: Anxious Patient Cognition Impaired: Yes Ability to Follow Directions: Fair Speech Pattern: Slurred Memory Description: Immediate Impaired Hallucinations: None Delusions: Not Present Thought Process: Disoriented Thought Content: positive for Poverty of Content Abnormal Motor Activity Signs and Symptoms: Psychomotor Retardation Judgement: Poor Diagnostics Vital Signs (24Hr): Vital Signs - 24 hr 05/10/23 19:35 05/11/23 09:49 Temperature 97.8 F 97.2 F Pulse Rate 67 75 Respiratory Rate 18 18 Blood Pressure 105/63 115/62 Pulse Oximetry 95 94 Oxygen Delivery Method Room Air Room Air BMI result Body Mass Index 27.4 Labs 02/15/23 06:42 02/15/23 06:43 Medications Medications Current Medications Acetaminophen (Acetaminophen 325 Mg Tablet) 650 mg PO Q4H PRN PRN Reason: Fever Last Admin: 05/11/23 03:11 Dose: 650 mg Al Hydroxide/Mg Hydroxide (Magnesium Hydrox/Alum Hydrox 30 Ml Oral.Susp) 30 ml PO Q6H PRN PRN Reason: Heartburn/Nausea Artificial Tears (Artificial Tears 15 Ml Drops) 1 drop EYE-BOTH Q4H PRN PRN Reason: Dry Eyes Last Admin: 03/24/23 01:42 Dose: 1 drop Bisacodyl (Bisacodyl 5 Mg Tablet.Dr) 10 mg PO DAILY PRN PRN Reason: Constipation Last Admin: 04/01/23 09:11 Dose: 10 mg Hydroxyzine HCl (Hydroxyzine Hcl 25 Mg Tablet) 25 mg PO Q6H PRN PRN Reason: Anxiety Last Admin: 05/06/23 20:52 Dose: 25 mg Lamotrigine (Lamotrigine 100 Mg Tablet) 100 mg PO BID [facility] [place] Last Admin: 05/11/23 09:56 Dose: 100 mg Lidocaine (Lidocaine 4 % Patch Adh..Patch) 1 patch TRANSDERMA DAILY [facility] [place]; Protocol Last Admin: 05/11/23 10:01 Dose: 1 patch Magnesium Hydroxide (Milk Of Magnesia 30 Ml Oral.Susp) 30 ml PO DAILY PRN PRN Reason: Constipation Last Admin: 05/02/23 11:03 Dose: 30 ml Memantine (Memantine Hcl 5 Mg Tablet) 5 mg PO BID [facility] [place] Last Admin: 05/11/23 09:56 Dose: 5 mg Olanzapine (Olanzapine 2.5 Mg Tablet) 2.5 mg PO TID PRN PRN Reason: agitation Last Admin: 04/17/23 23:36 Dose: 2.5 mg Olanzapine (Olanzapine 7.5 Mg Tablet) 7.5 mg PO BEDTIME [facility] [place] Last Admin: 05/10/23 21:31 Dose: 7.5 mg Polyethylene Glycol (Polyethylene Glycol 3350 17 Gm Powd.Pack) 17 gm PO DAILY [facility] [place] Last Admin: 05/11/23 09:56 Dose: 17 gm Tramadol HCl (Tramadol Hcl 50 Mg Tablet) 50 mg PO Q6H PRN PRN Reason: moderate, pain Last Admin: 05/11/23 09:56 Dose: 50 mg Trazodone HCl (Trazodone Hcl 100 Mg Tablet) 100 mg PO BEDTIME [facility] [place] Last Admin: 05/10/23 21:32 Dose: 100 mg Allergies Allergies Allergy/AdvReac Type Severity Reaction Status Date / Time pollen extracts Allergy Unknown unknown Verified 04/21/22 14:56 latex Allergy Rash Verified 10/31/22 18:30 Assessment & Plan Assessment & Plan (1) Bipolar disorder, now depressed: Status: Acute Code(s): F31.30 - Bipolar disorder, current episode depressed, mild or moderate severity, unspecified Assessment and Plan: Continue with current regimen (2) Chronic back pain: Status: Acute Code(s): M54.9 - Dorsalgia, unspecified; G89.29 - Other chronic pain Assessment and Plan: No change in management (3) Dementia: Status: Acute Code(s): F03.90 - Unspecified dementia, unspecified severity, without behavioral disturbance, psychotic disturbance, mood disturbance, and anxiety Assessment and Plan: continue memantine Plan 82 year old male with history hyperlipidemia, tubular adenoma colon, BPH, chronic normocytic anemia, 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 plan 1. Continue with same treatment. 2. Waiting for placement Reason for continued inpatient stay Substantial Risk for: med/psych decompensation Time Spent With Patient Time: Total time managing care of this patient today ____ minutes.
[2023-05-11 19:35] VITALS: BP 129/63; PULSE 70; RESP 16; TEMP 36.2; O2SAT 95
[2023-05-11] MEDS: traZODone HCL 100 MG TABLET PO (20:37)
[2023-05-11] MEDS: OLANZapine 7.5 MG TABLET PO (20:37)
[2023-05-12 08:05] VITALS: BP 145/75; PULSE 67; RESP 16; TEMP 36.3; O2SAT 94
[2023-05-12] MEDS: traMADoL HCL 50 MG TABLET PO (08:08)
[2023-05-12] MEDS: lamoTRIgine 100 MG TABLET PO ×2 (08:08→20:53)
[2023-05-12] MEDS: Memantine HCl 5 MG TABLET PO ×2 (08:08→20:53)
[2023-05-12] MEDS: polyethylene glycoL 3350 17 GM POWD.PACK PO (08:10)
[2023-05-12] MEDS: Lidocaine 4 % Patch ADH..PATCH 1 PATCH TRANSDERMA (08:10)
--- NOTE | 2023-05-12 09:27 | HO.PSYCHPN ---
Subjective Subjective Date of Service: 05/12/23 Reason For Visit: F31.9, F43.25 Interim History: Patient was seen and discussed in rounds today. Records and plans were reviewed. He has been stable and is awaiting placement. No complaints or side effects reported. Eating and sleeping adequately. No changes were made today Review of Systems Review of Systems Yes Unobtainable due to mental status Mental Status Exam Mental Status Exam Narrative: not observed due to being in bathroom, but did exchange words with MD. speech clear, normal loudness, rate, amount. no complaints or concerns, no expressed SI/HI/AVH. Patient Appearance: Unkempt Patient Orientation: Person Level of Consciousness: Lethargic Patient Behavior: Passive Mood Description: Withdrawn Affect Description: Anxious Patient Cognition Impaired: Yes Ability to Follow Directions: Fair Speech Pattern: Slurred Memory Description: Immediate Impaired Hallucinations: None Delusions: Not Present Thought Process: Disoriented Thought Content: positive for Poverty of Content Abnormal Motor Activity Signs and Symptoms: Psychomotor Retardation Judgement: Poor Diagnostics Vital Signs (24Hr): Vital Signs - 24 hr 05/11/23 09:49 05/11/23 19:35 05/12/23 08:05 Temperature 97.2 F 97.2 F 97.4 F Pulse Rate 75 70 67 Respiratory Rate 18 16 16 Blood Pressure 115/62 129/63 145/75 H Pulse Oximetry 94 95 94 Oxygen Delivery Method Room Air Room Air Room Air BMI result Body Mass Index 27.4 Labs 02/15/23 06:42 02/15/23 06:43 Medications Medications Current Medications Acetaminophen (Acetaminophen 325 Mg Tablet) 650 mg PO Q4H PRN PRN Reason: Fever Last Admin: 05/11/23 03:11 Dose: 650 mg Al Hydroxide/Mg Hydroxide (Magnesium Hydrox/Alum Hydrox 30 Ml Oral.Susp) 30 ml PO Q6H PRN PRN Reason: Heartburn/Nausea Artificial Tears (Artificial Tears 15 Ml Drops) 1 drop EYE-BOTH Q4H PRN PRN Reason: Dry Eyes Last Admin: 03/24/23 01:42 Dose: 1 drop Bisacodyl (Bisacodyl 5 Mg Tablet.Dr) 10 mg PO DAILY PRN PRN Reason: Constipation Last Admin: 04/01/23 09:11 Dose: 10 mg Hydroxyzine HCl (Hydroxyzine Hcl 25 Mg Tablet) 25 mg PO Q6H PRN PRN Reason: Anxiety Last Admin: 05/06/23 20:52 Dose: 25 mg Lamotrigine (Lamotrigine 100 Mg Tablet) 100 mg PO BID [facility] Last Admin: 05/12/23 08:08 Dose: 100 mg Lidocaine (Lidocaine 4 % Patch Adh..Patch) 1 patch TRANSDERMA DAILY [facility]; Protocol Last Admin: 05/12/23 08:10 Dose: 1 patch Magnesium Hydroxide (Milk Of Magnesia 30 Ml Oral.Susp) 30 ml PO DAILY PRN PRN Reason: Constipation Last Admin: 05/02/23 11:03 Dose: 30 ml Memantine (Memantine Hcl 5 Mg Tablet) 5 mg PO BID [facility] Last Admin: 05/12/23 08:08 Dose: 5 mg Olanzapine (Olanzapine 2.5 Mg Tablet) 2.5 mg PO TID PRN PRN Reason: agitation Last Admin: 04/17/23 23:36 Dose: 2.5 mg Olanzapine (Olanzapine 7.5 Mg Tablet) 7.5 mg PO BEDTIME [facility] Last Admin: 05/11/23 20:37 Dose: 7.5 mg Polyethylene Glycol (Polyethylene Glycol 3350 17 Gm Powd.Pack) 17 gm PO DAILY [facility] Last Admin: 05/12/23 08:10 Dose: 17 gm Tramadol HCl (Tramadol Hcl 50 Mg Tablet) 50 mg PO Q6H PRN PRN Reason: moderate, pain Last Admin: 05/12/23 08:08 Dose: 50 mg Trazodone HCl (Trazodone Hcl 100 Mg Tablet) 100 mg PO BEDTIME [facility] Last Admin: 05/11/23 20:37 Dose: 100 mg Allergies Allergies Allergy/AdvReac Type Severity Reaction Status Date / Time pollen extracts Allergy Unknown unknown Verified 04/21/22 14:56 latex Allergy Rash Verified 10/31/22 18:30 Assessment & Plan Assessment & Plan (1) Bipolar disorder, now depressed: Status: Acute Code(s): F31.30 - Bipolar disorder, current episode depressed, mild or moderate severity, unspecified Assessment and Plan: Continue with current regimen (2) Chronic back pain: Status: Acute Code(s): M54.9 - Dorsalgia, unspecified; G89.29 - Other chronic pain Assessment and Plan: No change in management (3) Dementia: Status: Acute Code(s): F03.90 - Unspecified dementia, unspecified severity, without behavioral disturbance, psychotic disturbance, mood disturbance, and anxiety Assessment and Plan: continue memantine Plan 82 year old male with history hyperlipidemia, tubular adenoma colon, BPH, chronic normocytic anemia, 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 plan 1. Continue with same treatment. 2. Waiting for placement 05/12: Continue current plans and regimen Reason for continued inpatient stay Substantial Risk for: inability to function Time Spent With Patient Time: Total time managing care of this patient today ____ minutes.
[2023-05-12 19:35] VITALS: BP 119/72; PULSE 72; RESP 18; TEMP 36.6; O2SAT 95
[2023-05-12] MEDS: OLANZapine 7.5 MG TABLET PO (20:53)
[2023-05-12] MEDS: traZODone HCL 100 MG TABLET PO (20:53)
[2023-05-13 07:55] VITALS: BP 128/65; PULSE 72; RESP 18; TEMP 35.7; O2SAT 96
[2023-05-13] MEDS: Lidocaine 4 % Patch ADH..PATCH 1 PATCH TRANSDERMA (09:02)
[2023-05-13] MEDS: polyethylene glycoL 3350 17 GM POWD.PACK PO (09:02)
[2023-05-13] MEDS: traMADoL HCL 50 MG TABLET PO (09:02)
[2023-05-13] MEDS: Memantine HCl 5 MG TABLET PO ×2 (09:02→20:55)
[2023-05-13] MEDS: lamoTRIgine 100 MG TABLET PO ×2 (09:03→20:55)
--- NOTE | 2023-05-13 13:44 | HO.PSYCHPN ---
Subjective Subjective Date of Service: 05/13/23 Reason For Visit: F31.9, F43.25 Subjective Notes: Conditional Voluntary Interim History: The nursing staff reported the patient is pleasantly confused, no changes in his mental status. He slept poorly last night. On interview the patient remains confused he stated that he wants to go back to his parent's house and explained that his parents were several years ago. He looks surprised. Waiting for placement. Mental Status Exam Mental Status Exam Patient Appearance: Appropriate Patient Orientation: Person and Situation Level of Consciousness: Awake and Appropriate Patient Behavior: Guarded and Passive Mood Description: Withdrawn Affect Description: Constricted Patient Cognition Impaired: Yes Ability to Follow Directions: Good Speech Pattern: Clear Hallucinations: None Delusions: Not Present Thought Process: Distracted and Evasive Thought Content: positive for [place] and positive for Poverty of Content Judgement: Poor Diagnostics Vital Signs (24Hr): Vital Signs - 24 hr 05/12/23 19:35 05/13/23 07:55 Temperature 97.8 F 96.2 F L Pulse Rate 72 72 Respiratory Rate 18 18 Blood Pressure 119/72 128/65 Pulse Oximetry 95 96 Oxygen Delivery Method Room Air Room Air BMI result Body Mass Index 27.4 Labs 02/15/23 06:42 02/15/23 06:43 Medications Medications Current Medications Acetaminophen (Acetaminophen 325 Mg Tablet) 650 mg PO Q4H PRN PRN Reason: Fever Last Admin: 05/11/23 03:11 Dose: 650 mg Al Hydroxide/Mg Hydroxide (Magnesium Hydrox/Alum Hydrox 30 Ml Oral.Susp) 30 ml PO Q6H PRN PRN Reason: Heartburn/Nausea Artificial Tears (Artificial Tears 15 Ml Drops) 1 drop EYE-BOTH Q4H PRN PRN Reason: Dry Eyes Last Admin: 03/24/23 01:42 Dose: 1 drop Bisacodyl (Bisacodyl 5 Mg Tablet.Dr) 10 mg PO DAILY PRN PRN Reason: Constipation Last Admin: 04/01/23 09:11 Dose: 10 mg Hydroxyzine HCl (Hydroxyzine Hcl 25 Mg Tablet) 25 mg PO Q6H PRN PRN Reason: Anxiety Last Admin: 05/06/23 20:52 Dose: 25 mg Lamotrigine (Lamotrigine 100 Mg Tablet) 100 mg PO BID [facility] Last Admin: 05/13/23 09:03 Dose: 100 mg Lidocaine (Lidocaine 4 % Patch Adh..Patch) 1 patch TRANSDERMA DAILY [facility]; Protocol Last Admin: 05/13/23 09:02 Dose: 1 patch Magnesium Hydroxide (Milk Of Magnesia 30 Ml Oral.Susp) 30 ml PO DAILY PRN PRN Reason: Constipation Last Admin: 05/02/23 11:03 Dose: 30 ml Memantine (Memantine Hcl 5 Mg Tablet) 5 mg PO BID [facility] Last Admin: 05/13/23 09:02 Dose: 5 mg Olanzapine (Olanzapine 2.5 Mg Tablet) 2.5 mg PO TID PRN PRN Reason: agitation Last Admin: 04/17/23 23:36 Dose: 2.5 mg Olanzapine (Olanzapine 7.5 Mg Tablet) 7.5 mg PO BEDTIME [facility] Last Admin: 05/12/23 20:53 Dose: 7.5 mg Polyethylene Glycol (Polyethylene Glycol 3350 17 Gm Powd.Pack) 17 gm PO DAILY [facility] Last Admin: 05/13/23 09:02 Dose: 17 gm Tramadol HCl (Tramadol Hcl 50 Mg Tablet) 50 mg PO Q6H PRN PRN Reason: moderate, pain Last Admin: 05/13/23 09:02 Dose: 50 mg Trazodone HCl (Trazodone Hcl 100 Mg Tablet) 100 mg PO BEDTIME [facility] Last Admin: 05/12/23 20:53 Dose: 100 mg Allergies Allergies Allergy/AdvReac Type Severity Reaction Status Date / Time pollen extracts Allergy Unknown unknown Verified 04/21/22 14:56 latex Allergy Rash Verified 10/31/22 18:30 Assessment & Plan Assessment & Plan (1) Bipolar disorder, now depressed: Status: Acute Code(s): F31.30 - Bipolar disorder, current episode depressed, mild or moderate severity, unspecified Assessment and Plan: Continue with current regimen (2) Chronic back pain: Status: Acute Code(s): M54.9 - Dorsalgia, unspecified; G89.29 - Other chronic pain Assessment and Plan: No change in management (3) Dementia: Status: Acute Code(s): F03.90 - Unspecified dementia, unspecified severity, without behavioral disturbance, psychotic disturbance, mood disturbance, and anxiety Assessment and Plan: continue memantine Plan 82 year old male with history hyperlipidemia, tubular adenoma colon, BPH, chronic normocytic anemia, 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 plan 1. Continue with same treatment. 2. Waiting for placement Reason for continued inpatient stay Substantial Risk for: inability to function, rapid decompensation and med/psych decompensation Time Spent With Patient Time: Total time managing care of this patient today __20__ minutes.
[2023-05-13 18:00] VITALS: BP 100/61; PULSE 77; RESP 18; TEMP 36.2; O2SAT 93
[2023-05-13] MEDS: OLANZapine 7.5 MG TABLET PO (20:55)
[2023-05-13] MEDS: traZODone HCL 100 MG TABLET PO (20:55)
[2023-05-14 08:00] VITALS: BP 133/65; PULSE 57; RESP 18; TEMP 36.3; O2SAT 96
[2023-05-14] MEDS: Lidocaine 4 % Patch ADH..PATCH 1 PATCH TRANSDERMA (08:26)
[2023-05-14] MEDS: Memantine HCl 5 MG TABLET PO ×2 (08:26→20:17)
[2023-05-14] MEDS: lamoTRIgine 100 MG TABLET PO ×2 (08:26→20:17)
[2023-05-14] MEDS: polyethylene glycoL 3350 17 GM POWD.PACK PO (08:26)
--- NOTE | 2023-05-14 12:27 | P.PNPSI_ITS ---
Subjective Subjective Date of Service: 05/14/23 Reason For Visit: F31.9, F43.25 Subjective Notes: Conditional Voluntary Interim History: The nursing staff reported no changes in his mental status confused but easily redirectable. On interview the patient denies new symptoms, waiting for placement. Mental Status Exam Mental Status Exam Patient Appearance: Appropriate Patient Orientation: Person Level of Consciousness: Awake Patient Behavior: Guarded and Cooperative Mood Description: Withdrawn Affect Description: Constricted Patient Cognition Impaired: Yes Ability to Follow Directions: Good Speech Pattern: Clear Hallucinations: None Delusions: Not Present Thought Process: Distracted Thought Content: positive for [place] and positive for Poverty of Content Judgement: Fair Diagnostics Vital Signs (24Hr): Vital Signs - 24 hr 05/13/23 18:00 05/14/23 08:00 Temperature 97.2 F 97.3 F Pulse Rate 77 57 Respiratory Rate 18 18 Blood Pressure 100/61 133/65 Pulse Oximetry 93 96 Oxygen Delivery Method Room Air BMI result Body Mass Index 27.4 Labs 02/15/23 06:42 02/15/23 06:43 Medications Medications Current Medications Acetaminophen (Acetaminophen 325 Mg Tablet) 650 mg PO Q4H PRN PRN Reason: Fever Last Admin: 05/11/23 03:11 Dose: 650 mg Al Hydroxide/Mg Hydroxide (Magnesium Hydrox/Alum Hydrox 30 Ml Oral.Susp) 30 ml PO Q6H PRN PRN Reason: Heartburn/Nausea Artificial Tears (Artificial Tears 15 Ml Drops) 1 drop EYE-BOTH Q4H PRN PRN Reason: Dry Eyes Last Admin: 03/24/23 01:42 Dose: 1 drop Bisacodyl (Bisacodyl 5 Mg Tablet.) 10 mg PO DAILY PRN PRN Reason: Constipation Last Admin: 04/01/23 09:11 Dose: 10 mg Hydroxyzine HCl (Hydroxyzine Hcl 25 Mg Tablet) 25 mg PO Q6H PRN PRN Reason: Anxiety Last Admin: 05/06/23 20:52 Dose: 25 mg Lamotrigine (Lamotrigine 100 Mg Tablet) 100 mg PO BID [facility] Last Admin: 05/14/23 08:26 Dose: 100 mg Lidocaine (Lidocaine 4 % Patch Adh..Patch) 1 patch TRANSDERMA DAILY [facility]; Protocol Last Admin: 05/14/23 08:26 Dose: 1 patch Magnesium Hydroxide (Milk Of Magnesia 30 Ml Oral.Susp) 30 ml PO DAILY PRN PRN Reason: Constipation Last Admin: 05/02/23 11:03 Dose: 30 ml Memantine (Memantine Hcl 5 Mg Tablet) 5 mg PO BID [facility] Last Admin: 05/14/23 08:26 Dose: 5 mg Olanzapine (Olanzapine 2.5 Mg Tablet) 2.5 mg PO TID PRN PRN Reason: agitation Last Admin: 04/17/23 23:36 Dose: 2.5 mg Olanzapine (Olanzapine 7.5 Mg Tablet) 7.5 mg PO BEDTIME [facility] Last Admin: 05/13/23 20:55 Dose: 7.5 mg Polyethylene Glycol (Polyethylene Glycol 3350 17 Gm Powd.Pack) 17 gm PO DAILY [facility] Last Admin: 05/14/23 08:26 Dose: 17 gm Tramadol HCl (Tramadol Hcl 50 Mg Tablet) 50 mg PO Q6H PRN PRN Reason: moderate, pain Last Admin: 05/13/23 09:02 Dose: 50 mg Trazodone HCl (Trazodone Hcl 100 Mg Tablet) 100 mg PO BEDTIME [facility] Last Admin: 05/13/23 20:55 Dose: 100 mg Allergies Allergies Allergy/AdvReac Type Severity Reaction Status Date / Time pollen extracts Allergy Unknown unknown Verified 04/21/22 14:56 latex Allergy Rash Verified 10/31/22 18:30 Assessment & Plan Assessment & Plan (1) Bipolar disorder, now depressed: Status: Acute Code(s): F31.30 - Bipolar disorder, current episode depressed, mild or moderate severity, unspecified Assessment and Plan: Continue with current regimen (2) Chronic back pain: Status: Acute Code(s): M54.9 - Dorsalgia, unspecified; G89.29 - Other chronic pain Assessment and Plan: No change in management (3) Dementia: Status: Acute Code(s): F03.90 - Unspecified dementia, unspecified severity, without behavioral disturbance, psychotic disturbance, mood disturbance, and anxiety Assessment and Plan: continue memantine Plan 82 year old male with history hyperlipidemia, tubular adenoma colon, BPH, chronic normocytic anemia, 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 plan 1. Continue with same treatment. 2. Waiting for placement Reason for continued inpatient stay Substantial Risk for: inability to function, rapid decompensation and med/psych decompensation Time Spent With Patient Time: Total time managing care of this patient today __20__ minutes.
[2023-05-14] MEDS: traMADoL HCL 50 MG TABLET PO ×2 (13:39→20:17)
[2023-05-14 18:00] VITALS: BP 128/77; PULSE 83; RESP 18; TEMP 36; O2SAT 97
[2023-05-14] MEDS: traZODone HCL 100 MG TABLET PO (20:17)
[2023-05-14] MEDS: OLANZapine 7.5 MG TABLET PO (20:17)
[2023-05-15 06:00] VITALS: BP 122/66; PULSE 57; RESP 18; TEMP 36.1; O2SAT 94
[2023-05-15] MEDS: Memantine HCl 5 MG TABLET PO ×2 (09:06→21:42)
[2023-05-15] MEDS: Lidocaine 4 % Patch ADH..PATCH 1 PATCH TRANSDERMA (09:06)
[2023-05-15] MEDS: polyethylene glycoL 3350 17 GM POWD.PACK PO (09:06)
[2023-05-15] MEDS: lamoTRIgine 100 MG TABLET PO ×2 (09:06→21:42)
--- NOTE | 2023-05-15 13:39 | HO.PSYCHPN ---
Subjective Subjective Date of Service: 05/15/23 Reason For Visit: F31.9, F43.25 Subjective Notes: Conditional Voluntary Interim History: The nursing staff reported no changes in mental status compliant with treatment. On interview pleasantly confused, waiting for placement. Mental Status Exam Mental Status Exam Patient Appearance: Appropriate Patient Orientation: Person Level of Consciousness: Awake Patient Behavior: Guarded and Passive Mood Description: Withdrawn Affect Description: Constricted Patient Cognition Impaired: Yes Ability to Follow Directions: Good Speech Pattern: Clear Hallucinations: None Delusions: Not Present Thought Process: Distracted and Slowed Thinking Thought Content: positive for [place] and positive for Poverty of Content Judgement: Fair Diagnostics Vital Signs (24Hr): Vital Signs - 24 hr 05/14/23 18:00 05/15/23 06:00 Temperature 96.8 F 96.9 F Pulse Rate 83 57 Respiratory Rate 18 18 Blood Pressure 128/77 122/66 Pulse Oximetry 97 94 Oxygen Delivery Method Room Air Room Air BMI result Body Mass Index 27.4 Labs 02/15/23 06:42 02/15/23 06:43 Medications Medications Current Medications Acetaminophen (Acetaminophen 325 Mg Tablet) 650 mg PO Q4H PRN PRN Reason: Fever Last Admin: 05/11/23 03:11 Dose: 650 mg Al Hydroxide/Mg Hydroxide (Magnesium Hydrox/Alum Hydrox 30 Ml Oral.Susp) 30 ml PO Q6H PRN PRN Reason: Heartburn/Nausea Artificial Tears (Artificial Tears 15 Ml Drops) 1 drop EYE-BOTH Q4H PRN PRN Reason: Dry Eyes Last Admin: 03/24/23 01:42 Dose: 1 drop Bisacodyl (Bisacodyl 5 Mg Tablet.Dr) 10 mg PO DAILY PRN PRN Reason: Constipation Last Admin: 04/01/23 09:11 Dose: 10 mg Hydroxyzine HCl (Hydroxyzine Hcl 25 Mg Tablet) 25 mg PO Q6H PRN PRN Reason: Anxiety Last Admin: 05/06/23 20:52 Dose: 25 mg Lamotrigine (Lamotrigine 100 Mg Tablet) 100 mg PO BID [facility] Last Admin: 05/15/23 09:06 Dose: 100 mg Lidocaine (Lidocaine 4 % Patch Adh..Patch) 1 patch TRANSDERMA DAILY [facility]; Protocol Last Admin: 05/15/23 09:06 Dose: 1 patch Magnesium Hydroxide (Milk Of Magnesia 30 Ml Oral.Susp) 30 ml PO DAILY PRN PRN Reason: Constipation Last Admin: 05/02/23 11:03 Dose: 30 ml Memantine (Memantine Hcl 5 Mg Tablet) 5 mg PO BID [facility] Last Admin: 05/15/23 09:06 Dose: 5 mg Olanzapine (Olanzapine 2.5 Mg Tablet) 2.5 mg PO TID PRN PRN Reason: agitation Last Admin: 04/17/23 23:36 Dose: 2.5 mg Olanzapine (Olanzapine 7.5 Mg Tablet) 7.5 mg PO BEDTIME [facility] Last Admin: 05/14/23 20:17 Dose: 7.5 mg Polyethylene Glycol (Polyethylene Glycol 3350 17 Gm Powd.Pack) 17 gm PO DAILY [facility] Last Admin: 05/15/23 09:06 Dose: 17 gm Tramadol HCl (Tramadol Hcl 50 Mg Tablet) 50 mg PO Q6H PRN PRN Reason: moderate, pain Last Admin: 05/14/23 20:17 Dose: 50 mg Trazodone HCl (Trazodone Hcl 100 Mg Tablet) 100 mg PO BEDTIME [facility] Last Admin: 05/14/23 20:17 Dose: 100 mg Allergies Allergies Allergy/AdvReac Type Severity Reaction Status Date / Time pollen extracts Allergy Unknown unknown Verified 04/21/22 14:56 latex Allergy Rash Verified 10/31/22 18:30 Assessment & Plan Assessment & Plan (1) Bipolar disorder, now depressed: Status: Acute Code(s): F31.30 - Bipolar disorder, current episode depressed, mild or moderate severity, unspecified Assessment and Plan: Continue with current regimen (2) Chronic back pain: Status: Acute Code(s): M54.9 - Dorsalgia, unspecified; G89.29 - Other chronic pain Assessment and Plan: No change in management (3) Dementia: Status: Acute Code(s): F03.90 - Unspecified dementia, unspecified severity, without behavioral disturbance, psychotic disturbance, mood disturbance, and anxiety Assessment and Plan: continue memantine Plan 82 year old male with history hyperlipidemia, tubular adenoma colon, BPH, chronic normocytic anemia, 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 plan 1. Continue with same treatment. 2. Waiting for placement Reason for continued inpatient stay Substantial Risk for: inability to function, rapid decompensation and med/psych decompensation Time Spent With Patient Time: Total time managing care of this patient today __20__ minutes.
[2023-05-15 18:00] VITALS: BP 108/59; PULSE 70; RESP 18; TEMP 36.4; O2SAT 96
[2023-05-15] MEDS: OLANZapine 7.5 MG TABLET PO (21:42)
[2023-05-15] MEDS: traZODone HCL 100 MG TABLET PO (21:42)
[2023-05-16] MEDS: traMADoL HCL 50 MG TABLET PO (02:48)
[2023-05-16] MEDS: hydrOXYzine HCL 25 MG TABLET PO (02:49)
[2023-05-16 07:00] VITALS: BMI 27.3
[2023-05-16 07:30] VITALS: BP 118/64; PULSE 72; RESP 18; TEMP 36.5; O2SAT 97
[2023-05-16] MEDS: polyethylene glycoL 3350 17 GM POWD.PACK PO (08:11)
[2023-05-16] MEDS: Memantine HCl 5 MG TABLET PO ×2 (08:13→20:10)
[2023-05-16] MEDS: lamoTRIgine 100 MG TABLET PO ×2 (08:13→20:10)
[2023-05-16] MEDS: Lidocaine 4 % Patch ADH..PATCH 1 PATCH TRANSDERMA (08:13)
--- NOTE | 2023-05-16 13:27 | HO.PSYCHPN ---
Subjective Subjective Date of Service: 05/16/23 Reason For Visit: F31.9, F43.25 Subjective Notes: Conditional Voluntary Interim History: The nursing staff reported no changes in his mental status he had been wandering the unit pleasantly confused easily redirectable. The social sciences instructor reported that [facility] will [facility] open to take him as soon as his financially cleared. On interview the patient denies new symptoms, easily redirectable, waiting for placement. Mental Status Exam Mental Status Exam Patient Appearance: Appropriate and Unkempt Patient Orientation: Person Level of Consciousness: Awake Patient Behavior: Guarded Mood Description: Withdrawn Affect Description: Constricted Patient Cognition Impaired: Yes Ability to Follow Directions: Good Speech Pattern: Clear Hallucinations: None Delusions: Not Present Thought Process: Distracted and Slowed Thinking Thought Content: positive for [place] and positive for Poverty of Content Judgement: Fair Diagnostics Vital Signs (24Hr): Vital Signs - 24 hr 05/15/23 18:00 05/16/23 07:30 Temperature 97.5 F 97.7 F Pulse Rate 70 72 Respiratory Rate 18 18 Blood Pressure 108/59 L 118/64 Pulse Oximetry 96 97 Oxygen Delivery Method Room Air Room Air BMI result Body Mass Index 27.3 Labs 02/15/23 06:42 02/15/23 06:43 Medications Medications Current Medications Acetaminophen (Acetaminophen 325 Mg Tablet) 650 mg PO Q4H PRN PRN Reason: Fever Last Admin: 05/11/23 03:11 Dose: 650 mg Al Hydroxide/Mg Hydroxide (Magnesium Hydrox/Alum Hydrox 30 Ml Oral.Susp) 30 ml PO Q6H PRN PRN Reason: Heartburn/Nausea Artificial Tears (Artificial Tears 15 Ml Drops) 1 drop EYE-BOTH Q4H PRN PRN Reason: Dry Eyes Last Admin: 03/24/23 01:42 Dose: 1 drop Bisacodyl (Bisacodyl 5 Mg Tablet.Dr) 10 mg PO DAILY PRN PRN Reason: Constipation Last Admin: 04/01/23 09:11 Dose: 10 mg Hydroxyzine HCl (Hydroxyzine Hcl 25 Mg Tablet) 25 mg PO Q6H PRN PRN Reason: Anxiety Last Admin: 05/16/23 02:49 Dose: 25 mg Lamotrigine (Lamotrigine 100 Mg Tablet) 100 mg PO BID [facility] Last Admin: 05/16/23 08:13 Dose: 100 mg Lidocaine (Lidocaine 4 % Patch Adh..Patch) 1 patch TRANSDERMA DAILY [facility]; Protocol Last Admin: 05/16/23 08:13 Dose: 1 patch Magnesium Hydroxide (Milk Of Magnesia 30 Ml Oral.Susp) 30 ml PO DAILY PRN PRN Reason: Constipation Last Admin: 05/02/23 11:03 Dose: 30 ml Memantine (Memantine Hcl 5 Mg Tablet) 5 mg PO BID [facility] Last Admin: 05/16/23 08:13 Dose: 5 mg Olanzapine (Olanzapine 2.5 Mg Tablet) 2.5 mg PO TID PRN PRN Reason: agitation Last Admin: 04/17/23 23:36 Dose: 2.5 mg Olanzapine (Olanzapine 7.5 Mg Tablet) 7.5 mg PO BEDTIME [facility] Last Admin: 05/15/23 21:42 Dose: 7.5 mg Polyethylene Glycol (Polyethylene Glycol 3350 17 Gm Powd.Pack) 17 gm PO DAILY [facility] Last Admin: 05/16/23 08:11 Dose: 17 gm Tramadol HCl (Tramadol Hcl 50 Mg Tablet) 50 mg PO Q6H PRN PRN Reason: moderate, pain Last Admin: 05/16/23 02:48 Dose: 50 mg Trazodone HCl (Trazodone Hcl 100 Mg Tablet) 100 mg PO BEDTIME [facility] Last Admin: 05/15/23 21:42 Dose: 100 mg Allergies Allergies Allergy/AdvReac Type Severity Reaction Status Date / Time pollen extracts Allergy Unknown unknown Verified 04/21/22 14:56 latex Allergy Rash Verified 10/31/22 18:30 Assessment & Plan Assessment & Plan (1) Bipolar disorder, now depressed: Status: Acute Code(s): F31.30 - Bipolar disorder, current episode depressed, mild or moderate severity, unspecified Assessment and Plan: Continue with current regimen (2) Chronic back pain: Status: Acute Code(s): M54.9 - Dorsalgia, unspecified; G89.29 - Other chronic pain Assessment and Plan: No change in management (3) Dementia: Status: Acute Code(s): F03.90 - Unspecified dementia, unspecified severity, without behavioral disturbance, psychotic disturbance, mood disturbance, and anxiety Assessment and Plan: continue memantine Plan 82 year old male with history hyperlipidemia, tubular adenoma colon, BPH, chronic normocytic anemia, 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 plan 1. Continue with same treatment. 2. Waiting for placement Reason for continued inpatient stay Substantial Risk for: inability to function, rapid decompensation and med/psych decompensation Time Spent With Patient Time: Total time managing care of this patient today _20___ minutes.
[2023-05-16 19:35] VITALS: BP 132/80; PULSE 68; RESP 18; TEMP 36.4; O2SAT 95
[2023-05-16] MEDS: traZODone HCL 100 MG TABLET PO (20:10)
[2023-05-16] MEDS: OLANZapine 7.5 MG TABLET PO (20:10)
[2023-05-17 06:00] VITALS: BP 130/68; PULSE 72; RESP 18; TEMP 36.5; O2SAT 97
[2023-05-17] MEDS: polyethylene glycoL 3350 17 GM POWD.PACK PO (08:13)
[2023-05-17] MEDS: Lidocaine 4 % Patch ADH..PATCH 1 PATCH TRANSDERMA (08:13)
[2023-05-17] MEDS: lamoTRIgine 100 MG TABLET PO ×2 (08:13→20:57)
[2023-05-17] MEDS: Memantine HCl 5 MG TABLET PO ×2 (08:13→20:58)
--- NOTE | 2023-05-17 13:06 | HO.PSYCHPN ---
Subjective Subjective Date of Service: 05/17/23 Reason For Visit: F31.9, F43.25 Subjective Notes: Conditional Voluntary Interim History: The nursing staff reported no changes in his mental status remains confused but easily redirectable. Today on interview the patient reported he wants to go back to his parent's house, explain that his parents more than 20 years ago. He looks surprised. Mental Status Exam Mental Status Exam Patient Appearance: Well Grooomed and Appropriate Patient Orientation: Person and Situation Level of Consciousness: Awake and Appropriate Patient Behavior: Guarded and Passive Mood Description: Withdrawn Affect Description: Constricted Patient Cognition Impaired: Yes Ability to Follow Directions: Good Speech Pattern: Clear Hallucinations: None Delusions: Not Present Thought Process: Distracted and Evasive Thought Content: positive for [place] and positive for Poverty of Content Judgement: Fair Diagnostics Vital Signs (24Hr): Vital Signs - 24 hr 05/16/23 19:35 05/17/23 06:00 Temperature 97.5 F 97.7 F Pulse Rate 68 72 Respiratory Rate 18 18 Blood Pressure 132/80 130/68 Pulse Oximetry 95 97 Oxygen Delivery Method Room Air Room Air BMI result Body Mass Index 27.3 Labs 02/15/23 06:42 02/15/23 06:43 Medications Medications Current Medications Acetaminophen (Acetaminophen 325 Mg Tablet) 650 mg PO Q4H PRN PRN Reason: Fever Last Admin: 05/11/23 03:11 Dose: 650 mg Al Hydroxide/Mg Hydroxide (Magnesium Hydrox/Alum Hydrox 30 Ml Oral.Susp) 30 ml PO Q6H PRN PRN Reason: Heartburn/Nausea Artificial Tears (Artificial Tears 15 Ml Drops) 1 drop EYE-BOTH Q4H PRN PRN Reason: Dry Eyes Last Admin: 03/24/23 01:42 Dose: 1 drop Bisacodyl (Bisacodyl 5 Mg Tablet.Dr) 10 mg PO DAILY PRN PRN Reason: Constipation Last Admin: 04/01/23 09:11 Dose: 10 mg Hydroxyzine HCl (Hydroxyzine Hcl 25 Mg Tablet) 25 mg PO Q6H PRN PRN Reason: Anxiety Last Admin: 05/16/23 02:49 Dose: 25 mg Lamotrigine (Lamotrigine 100 Mg Tablet) 100 mg PO BID [facility] Last Admin: 05/17/23 08:13 Dose: 100 mg Lidocaine (Lidocaine 4 % Patch Adh..Patch) 1 patch TRANSDERMA DAILY [facility]; Protocol Last Admin: 05/17/23 08:13 Dose: 1 patch Magnesium Hydroxide (Milk Of Magnesia 30 Ml Oral.Susp) 30 ml PO DAILY PRN PRN Reason: Constipation Last Admin: 05/02/23 11:03 Dose: 30 ml Memantine (Memantine Hcl 5 Mg Tablet) 5 mg PO BID [facility] Last Admin: 05/17/23 08:13 Dose: 5 mg Olanzapine (Olanzapine 2.5 Mg Tablet) 2.5 mg PO TID PRN PRN Reason: agitation Last Admin: 04/17/23 23:36 Dose: 2.5 mg Olanzapine (Olanzapine 7.5 Mg Tablet) 7.5 mg PO BEDTIME [facility] Last Admin: 05/16/23 20:10 Dose: 7.5 mg Polyethylene Glycol (Polyethylene Glycol 3350 17 Gm Powd.Pack) 17 gm PO DAILY [facility] Last Admin: 05/17/23 08:13 Dose: 17 gm Tramadol HCl (Tramadol Hcl 50 Mg Tablet) 50 mg PO Q6H PRN PRN Reason: moderate, pain Last Admin: 05/16/23 02:48 Dose: 50 mg Trazodone HCl (Trazodone Hcl 100 Mg Tablet) 100 mg PO BEDTIME [facility] Last Admin: 05/16/23 20:10 Dose: 100 mg Allergies Allergies Allergy/AdvReac Type Severity Reaction Status Date / Time pollen extracts Allergy Unknown unknown Verified 04/21/22 14:56 latex Allergy Rash Verified 10/31/22 18:30 Assessment & Plan Assessment & Plan (1) Bipolar disorder, now depressed: Status: Acute Code(s): F31.30 - Bipolar disorder, current episode depressed, mild or moderate severity, unspecified Assessment and Plan: Continue with current regimen (2) Chronic back pain: Status: Acute Code(s): M54.9 - Dorsalgia, unspecified; G89.29 - Other chronic pain Assessment and Plan: No change in management (3) Dementia: Status: Acute Code(s): F03.90 - Unspecified dementia, unspecified severity, without behavioral disturbance, psychotic disturbance, mood disturbance, and anxiety Assessment and Plan: continue memantine Plan 82 year old male with history hyperlipidemia, tubular adenoma colon, BPH, chronic normocytic anemia, 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 plan 1. Continue with same treatment. 2. Waiting for placement Reason for continued inpatient stay Substantial Risk for: inability to function, rapid decompensation and med/psych decompensation Time Spent With Patient Time: Total time managing care of this patient today __20__ minutes.
[2023-05-17 18:00] VITALS: BP 116/70; PULSE 70; RESP 17; TEMP 36.1; O2SAT 95
[2023-05-17] MEDS: OLANZapine 7.5 MG TABLET PO (20:58)
[2023-05-17] MEDS: traZODone HCL 100 MG TABLET PO (20:58)
[2023-05-18] MEDS: traMADoL HCL 50 MG TABLET PO (06:38)
[2023-05-18 09:18] VITALS: BP 108/58; PULSE 82; RESP 18; TEMP 36.3; O2SAT 95
[2023-05-18] MEDS: Memantine HCl 5 MG TABLET PO ×2 (09:19→21:04)
[2023-05-18] MEDS: Lidocaine 4 % Patch ADH..PATCH 1 PATCH TRANSDERMA (09:19)
[2023-05-18] MEDS: polyethylene glycoL 3350 17 GM POWD.PACK PO (09:19)
[2023-05-18] MEDS: lamoTRIgine 100 MG TABLET PO ×2 (09:20→21:03)
--- NOTE | 2023-05-18 17:23 | HO.PSYCHPN ---
Subjective Subjective Date of Service: 05/18/23 Reason For Visit: F31.9, F43.25 Subjective Notes: Conditional Voluntary Interim History: Pt slept through the night. No behavioral concerns. Pt pleasant on approach, can't find his own room. Denies any concerns, social with select peers. No SI/HI. Medication Compliance: Yes Review of Systems Review of Systems Back pain that is chronic in nature, no incontinence urinary or donita, no fever or chills, and weakness in the legs Yes all other systems are reviewed and are negative and Unobtainable due to mental status Mental Status Exam Mental Status Exam Patient Appearance: Well Grooomed and Appropriate Patient Orientation: Person and Situation Level of Consciousness: Awake and Appropriate Patient Behavior: Guarded and Passive Mood Description: Withdrawn Affect Description: Constricted Patient Cognition Impaired: Yes Ability to Follow Directions: Good Speech Pattern: Clear Memory Description: Immediate Impaired Diagnostics Vital Signs (24Hr): Vital Signs - 24 hr 05/17/23 18:00 05/18/23 09:18 Temperature 97 F 97.4 F Pulse Rate 70 82 Respiratory Rate 17 18 Blood Pressure 116/70 108/58 L Pulse Oximetry 95 95 Oxygen Delivery Method Room Air Room Air BMI result Body Mass Index 27.3 Labs 02/15/23 06:42 02/15/23 06:43 Medications Medications Current Medications Acetaminophen (Acetaminophen 325 Mg Tablet) 650 mg PO Q4H PRN PRN Reason: Fever Last Admin: 05/11/23 03:11 Dose: 650 mg Al Hydroxide/Mg Hydroxide (Magnesium Hydrox/Alum Hydrox 30 Ml Oral.Susp) 30 ml PO Q6H PRN PRN Reason: Heartburn/Nausea Artificial Tears (Artificial Tears 15 Ml Drops) 1 drop EYE-BOTH Q4H PRN PRN Reason: Dry Eyes Last Admin: 03/24/23 01:42 Dose: 1 drop Bisacodyl (Bisacodyl 5 Mg Tablet.) 10 mg PO DAILY PRN PRN Reason: Constipation Last Admin: 04/01/23 09:11 Dose: 10 mg Hydroxyzine HCl (Hydroxyzine Hcl 25 Mg Tablet) 25 mg PO Q6H PRN PRN Reason: Anxiety Last Admin: 05/16/23 02:49 Dose: 25 mg Lamotrigine (Lamotrigine 100 Mg Tablet) 100 mg PO BID [facility] Last Admin: 05/18/23 09:20 Dose: 100 mg Lidocaine (Lidocaine 4 % Patch Adh..Patch) 1 patch TRANSDERMA DAILY [facility]; Protocol Last Admin: 05/18/23 09:19 Dose: 1 patch Magnesium Hydroxide (Milk Of Magnesia 30 Ml Oral.Susp) 30 ml PO DAILY PRN PRN Reason: Constipation Last Admin: 05/02/23 11:03 Dose: 30 ml Memantine (Memantine Hcl 5 Mg Tablet) 5 mg PO BID [facility] Last Admin: 05/18/23 09:19 Dose: 5 mg Olanzapine (Olanzapine 2.5 Mg Tablet) 2.5 mg PO TID PRN PRN Reason: agitation Last Admin: 04/17/23 23:36 Dose: 2.5 mg Olanzapine (Olanzapine 7.5 Mg Tablet) 7.5 mg PO BEDTIME [facility] Last Admin: 05/17/23 20:58 Dose: 7.5 mg Polyethylene Glycol (Polyethylene Glycol 3350 17 Gm Powd.Pack) 17 gm PO DAILY [facility] Last Admin: 05/18/23 09:19 Dose: 17 gm Tramadol HCl (Tramadol Hcl 50 Mg Tablet) 50 mg PO Q6H PRN PRN Reason: moderate, pain Last Admin: 05/18/23 06:38 Dose: 50 mg Trazodone HCl (Trazodone Hcl 100 Mg Tablet) 100 mg PO BEDTIME [facility] Last Admin: 05/17/23 20:58 Dose: 100 mg Allergies Allergies Allergy/AdvReac Type Severity Reaction Status Date / Time pollen extracts Allergy Unknown unknown Verified 04/21/22 14:56 latex Allergy Rash Verified 10/31/22 18:30 Assessment & Plan Assessment & Plan (1) Bipolar disorder, now depressed: Status: Acute Code(s): F31.30 - Bipolar disorder, current episode depressed, mild or moderate severity, unspecified Assessment and Plan: Continue with current regimen (2) Chronic back pain: Status: Acute Code(s): M54.9 - Dorsalgia, unspecified; G89.29 - Other chronic pain Assessment and Plan: No change in management (3) Dementia: Status: Acute Code(s): F03.90 - Unspecified dementia, unspecified severity, without behavioral disturbance, psychotic disturbance, mood disturbance, and anxiety Assessment and Plan: continue memantine Plan 82 year old male with history hyperlipidemia, tubular adenoma colon, BPH, chronic normocytic anemia, 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 plan 1. Continue with same treatment. 2. Waiting for placement Reason for continued inpatient stay Substantial Risk for: inability to function Time Spent With Patient Time: Total time managing care of this patient today ____ minutes.
[2023-05-18 18:00] VITALS: BP 127/74; PULSE 75; RESP 18; TEMP 36.7; O2SAT 97
[2023-05-18] MEDS: hydrOXYzine HCL 25 MG TABLET PO (21:03)
[2023-05-18] MEDS: Acetaminophen 325 MG TABLET 650 MG PO (21:03)
[2023-05-18] MEDS: OLANZapine 7.5 MG TABLET PO (21:03)
[2023-05-18] MEDS: traZODone HCL 100 MG TABLET PO (21:04)
[2023-05-19] MEDS: traMADoL HCL 50 MG TABLET PO (03:19)
[2023-05-19 08:20] VITALS: BP 137/68; PULSE 74; RESP 18; TEMP 36.2; O2SAT 95
[2023-05-19] MEDS: Lidocaine 4 % Patch ADH..PATCH 1 PATCH TRANSDERMA (09:12)
[2023-05-19] MEDS: lamoTRIgine 100 MG TABLET PO (09:12)
[2023-05-19] MEDS: polyethylene glycoL 3350 17 GM POWD.PACK PO (09:12)
[2023-05-19] MEDS: Memantine HCl 5 MG TABLET PO (09:12)
--- NOTE | 2023-05-19 15:33 | HO.PSYCHPN ---
Subjective Subjective Date of Service: 05/19/23 Reason For Visit: F31.9, F43.25 Subjective Notes: Conditional Voluntary Interim History: Pt slept through the night. No behavioral concerns. Pt pleasant on approach, can't find his own room. Denies any concerns, social with select peers. No SI/HI. Review of Systems Review of Systems Back pain that is chronic in nature, no incontinence urinary or donita, no fever or chills, and weakness in the legs Yes all other systems are reviewed and are negative and Unobtainable due to mental status Mental Status Exam Mental Status Exam Patient Appearance: Well Grooomed and Appropriate Patient Orientation: Person and Situation Level of Consciousness: Awake and Appropriate Patient Behavior: Guarded and Passive Mood Description: Withdrawn Affect Description: Constricted Patient Cognition Impaired: Yes Ability to Follow Directions: Good Speech Pattern: Clear Memory Description: Immediate Impaired Diagnostics Vital Signs (24Hr): Vital Signs - 24 hr 05/18/23 18:00 05/19/23 08:20 Temperature 98.1 F 97.2 F Pulse Rate 75 74 Respiratory Rate 18 18 Blood Pressure 127/74 137/68 Pulse Oximetry 97 95 Oxygen Delivery Method Room Air Room Air BMI result Body Mass Index 27.3 Labs 02/15/23 06:42 02/15/23 06:43 Medications Medications Current Medications Acetaminophen (Acetaminophen 325 Mg Tablet) 650 mg PO Q4H PRN PRN Reason: Fever Last Admin: 05/18/23 21:03 Dose: 650 mg Al Hydroxide/Mg Hydroxide (Magnesium Hydrox/Alum Hydrox 30 Ml Oral.Susp) 30 ml PO Q6H PRN PRN Reason: Heartburn/Nausea Artificial Tears (Artificial Tears 15 Ml Drops) 1 drop EYE-BOTH Q4H PRN PRN Reason: Dry Eyes Last Admin: 03/24/23 01:42 Dose: 1 drop Bisacodyl (Bisacodyl 5 Mg Tablet.Dr) 10 mg PO DAILY PRN PRN Reason: Constipation Last Admin: 04/01/23 09:11 Dose: 10 mg Hydroxyzine HCl (Hydroxyzine Hcl 25 Mg Tablet) 25 mg PO Q6H PRN PRN Reason: Anxiety Last Admin: 05/18/23 21:03 Dose: 25 mg Lamotrigine (Lamotrigine 100 Mg Tablet) 100 mg PO BID [facility] Last Admin: 05/19/23 09:12 Dose: 100 mg Lidocaine (Lidocaine 4 % Patch Adh..Patch) 1 patch TRANSDERMA DAILY [facility]; Protocol Last Admin: 05/19/23 09:12 Dose: 1 patch Magnesium Hydroxide (Milk Of Magnesia 30 Ml Oral.Susp) 30 ml PO DAILY PRN PRN Reason: Constipation Last Admin: 05/02/23 11:03 Dose: 30 ml Memantine (Memantine Hcl 5 Mg Tablet) 5 mg PO BID [facility] Last Admin: 05/19/23 09:12 Dose: 5 mg Olanzapine (Olanzapine 2.5 Mg Tablet) 2.5 mg PO TID PRN PRN Reason: agitation Last Admin: 04/17/23 23:36 Dose: 2.5 mg Olanzapine (Olanzapine 7.5 Mg Tablet) 7.5 mg PO BEDTIME CASEY Last Admin: 05/18/23 21:03 Dose: 7.5 mg Polyethylene Glycol (Polyethylene Glycol 3350 17 Gm Powd.Pack) 17 gm PO DAILY [facility] Last Admin: 05/19/23 09:12 Dose: 17 gm Tramadol HCl (Tramadol Hcl 50 Mg Tablet) 50 mg PO Q6H PRN PRN Reason: moderate, pain Last Admin: 05/19/23 03:19 Dose: 50 mg Trazodone HCl (Trazodone Hcl 100 Mg Tablet) 100 mg PO BEDTIME [facility]Y Last Admin: 05/18/23 21:04 Dose: 100 mg Allergies Allergies Allergy/AdvReac Type Severity Reaction Status Date / Time pollen extracts Allergy Unknown unknown Verified 04/21/22 14:56 latex Allergy Rash Verified 10/31/22 18:30 Assessment & Plan Assessment & Plan (1) Bipolar disorder, now depressed: Status: Acute Code(s): F31.30 - Bipolar disorder, current episode depressed, mild or moderate severity, unspecified Assessment and Plan: Continue with current regimen (2) Chronic back pain: Status: Acute Code(s): M54.9 - Dorsalgia, unspecified; G89.29 - Other chronic pain Assessment and Plan: No change in management (3) Dementia: Status: Acute Code(s): F03.90 - Unspecified dementia, unspecified severity, without behavioral disturbance, psychotic disturbance, mood disturbance, and anxiety Assessment and Plan: continue memantine Plan 82 year old male with history hyperlipidemia, tubular adenoma colon, BPH, chronic normocytic anemia, 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 plan 1. Continue with same treatment. 2. Waiting for placement Reason for continued inpatient stay Substantial Risk for: inability to function Time Spent With Patient Time: Total time managing care of this patient today ____ minutes.
[2023-05-19 19:30] VITALS: BP 117/66; PULSE 79; RESP 18; TEMP 36.2; O2SAT 95
[2023-05-19] MEDS: traZODone HCL 100 MG TABLET PO (20:28)
[2023-05-19] MEDS: OLANZapine 7.5 MG TABLET PO (20:28)
--- NOTE | 2023-05-19 20:31 | PC.NURSE ---
Assumed care of patient at 19:00. Patient is resistant to care, vague and argumentative, refusing to answer orientation and assessment questions. Only agreeable to some medications with education and encouragement. Refused assessment. Covering Dr. Alaniz notified.
--- NOTE | 2023-05-19 23:55 | PC.NURSE ---
Handoff report given at 23:00 to RN assuming pt's care.
[2023-05-20 07:55] VITALS: BP 124/72; PULSE 58; RESP 18; TEMP 35.9; O2SAT 96
[2023-05-20] MEDS: lamoTRIgine 100 MG TABLET PO ×2 (08:38→21:08)
[2023-05-20] MEDS: polyethylene glycoL 3350 17 GM POWD.PACK PO (08:38)
[2023-05-20] MEDS: Lidocaine 4 % Patch ADH..PATCH 1 PATCH TRANSDERMA (08:38)
[2023-05-20] MEDS: Memantine HCl 5 MG TABLET PO ×2 (08:38→21:08)
[2023-05-20 18:00] VITALS: BP 114/75; PULSE 73; RESP 18; TEMP 36.1; O2SAT 95
--- NOTE | 2023-05-20 20:26 | P.PNPSI_ITS ---
Subjective Subjective Date of Service: 05/20/23 Reason For Visit: F31.9, F43.25 Interim History: Pt slept through the night. No behavioral concerns. Pt pleasant on approach, can't find his own room. Denies any concerns, social with select peers. No SI/HI. Review of Systems Review of Systems Back pain that is chronic in nature, no incontinence urinary or donita, no fever or chills, and weakness in the legs Yes all other systems are reviewed and are negative and Unobtainable due to mental status Mental Status Exam Mental Status Exam Patient Appearance: Well Grooomed and Appropriate Patient Orientation: Person and Situation Level of Consciousness: Awake and Appropriate Patient Behavior: Guarded and Passive Mood Description: Withdrawn Affect Description: Constricted Patient Cognition Impaired: Yes Ability to Follow Directions: Good Speech Pattern: Clear Memory Description: Immediate Impaired Diagnostics Vital Signs (24Hr): Vital Signs - 24 hr 05/20/23 07:55 Temperature 96.7 F L Pulse Rate 58 Respiratory Rate 18 Blood Pressure 124/72 Pulse Oximetry 96 Oxygen Delivery Method Room Air BMI result Body Mass Index 27.3 Labs 02/15/23 06:42 02/15/23 06:43 Medications Medications Current Medications Acetaminophen (Acetaminophen 325 Mg Tablet) 650 mg PO Q4H PRN PRN Reason: Fever Last Admin: 05/18/23 21:03 Dose: 650 mg Al Hydroxide/Mg Hydroxide (Magnesium Hydrox/Alum Hydrox 30 Ml Oral.Susp) 30 ml PO Q6H PRN PRN Reason: Heartburn/Nausea Artificial Tears (Artificial Tears 15 Ml Drops) 1 drop EYE-BOTH Q4H PRN PRN Reason: Dry Eyes Last Admin: 03/24/23 01:42 Dose: 1 drop Bisacodyl (Bisacodyl 5 Mg Tablet.Dr) 10 mg PO DAILY PRN PRN Reason: Constipation Last Admin: 04/01/23 09:11 Dose: 10 mg Hydroxyzine HCl (Hydroxyzine Hcl 25 Mg Tablet) 25 mg PO Q6H PRN PRN Reason: Anxiety Last Admin: 05/18/23 21:03 Dose: 25 mg Lamotrigine (Lamotrigine 100 Mg Tablet) 100 mg PO BID [facility] Last Admin: 05/20/23 08:38 Dose: 100 mg Lidocaine (Lidocaine 4 % Patch Adh..Patch) 1 patch TRANSDERMA DAILY [facility]; Protocol Last Admin: 05/20/23 08:38 Dose: 1 patch Magnesium Hydroxide (Milk Of Magnesia 30 Ml Oral.Susp) 30 ml PO DAILY PRN PRN Reason: Constipation Last Admin: 05/02/23 11:03 Dose: 30 ml Memantine (Memantine Hcl 5 Mg Tablet) 5 mg PO BID [facility] Last Admin: 05/20/23 08:38 Dose: 5 mg Olanzapine (Olanzapine 2.5 Mg Tablet) 2.5 mg PO TID PRN PRN Reason: agitation Last Admin: 04/17/23 23:36 Dose: 2.5 mg Olanzapine (Olanzapine 7.5 Mg Tablet) 7.5 mg PO BEDTIME CASEY Last Admin: 05/19/23 20:28 Dose: 7.5 mg Polyethylene Glycol (Polyethylene Glycol 3350 17 Gm Powd.Pack) 17 gm PO DAILY CASEY Last Admin: 05/20/23 08:38 Dose: 17 gm Tramadol HCl (Tramadol Hcl 50 Mg Tablet) 50 mg PO Q6H PRN PRN Reason: moderate, pain Last Admin: 05/19/23 03:19 Dose: 50 mg Trazodone HCl (Trazodone Hcl 100 Mg Tablet) 100 mg PO BEDTIME CASEY Last Admin: 05/19/23 20:28 Dose: 100 mg Allergies Allergies Allergy/AdvReac Type Severity Reaction Status Date / Time pollen extracts Allergy Unknown unknown Verified 04/21/22 14:56 latex Allergy Rash Verified 10/31/22 18:30 Assessment & Plan Assessment & Plan (1) Bipolar disorder, now depressed: Status: Acute Code(s): F31.30 - Bipolar disorder, current episode depressed, mild or moderate severity, unspecified Assessment and Plan: Continue with current regimen (2) Chronic back pain: Status: Acute Code(s): M54.9 - Dorsalgia, unspecified; G89.29 - Other chronic pain Assessment and Plan: No change in management (3) Dementia: Status: Acute Code(s): F03.90 - Unspecified dementia, unspecified severity, without behavioral disturbance, psychotic disturbance, mood disturbance, and anxiety Assessment and Plan: continue memantine Plan 82 year old male with history hyperlipidemia, tubular adenoma colon, BPH, chronic normocytic anemia, 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 plan 1. Continue with same treatment. 2. Waiting for placement Reason for continued inpatient stay Substantial Risk for: inability to function Time Spent With Patient Time: Total time managing care of this patient today ____ minutes.
[2023-05-20] MEDS: traZODone HCL 100 MG TABLET PO (21:08)
[2023-05-20] MEDS: OLANZapine 7.5 MG TABLET PO (21:08)
[2023-05-21 09:20] VITALS: BP 107/64; PULSE 78; RESP 16; TEMP 36.3; O2SAT 94
[2023-05-21] MEDS: polyethylene glycoL 3350 17 GM POWD.PACK PO (09:22)
[2023-05-21] MEDS: Lidocaine 4 % Patch ADH..PATCH 1 PATCH TRANSDERMA (09:22)
[2023-05-21] MEDS: Memantine HCl 5 MG TABLET PO ×2 (09:23→21:03)
[2023-05-21] MEDS: lamoTRIgine 100 MG TABLET PO ×2 (09:23→21:03)
--- NOTE | 2023-05-21 13:40 | P.PNPSI_ITS ---
Subjective Subjective Date of Service: 05/21/23 Reason For Visit: F31.9, F43.25 Subjective Notes: Conditional Voluntary Interim History: The nursing staff reported no changes in his mental status compliant with treatment. On interview is pleasantly confused easily redirectable. Waiting for placement. Mental Status Exam Mental Status Exam Patient Appearance: Well Grooomed and Appropriate Patient Orientation: Person and Situation Level of Consciousness: Awake and Appropriate Patient Behavior: Guarded and Passive Mood Description: Withdrawn Affect Description: Blunted Patient Cognition Impaired: Yes Ability to Follow Directions: Good Speech Pattern: Clear Hallucinations: None Delusions: Not Present Thought Process: Distracted and Slowed Thinking Thought Content: positive for [place] and positive for Poverty of Content Judgement: Poor Diagnostics Vital Signs (24Hr): Vital Signs - 24 hr 05/20/23 18:00 05/21/23 09:20 Temperature 97 F 97.4 F Pulse Rate 73 78 Respiratory Rate 18 16 Blood Pressure 114/75 107/64 Pulse Oximetry 95 94 Oxygen Delivery Method Room Air Room Air BMI result Body Mass Index 27.3 Labs 02/15/23 06:42 02/15/23 06:43 Medications Medications Current Medications Acetaminophen (Acetaminophen 325 Mg Tablet) 650 mg PO Q4H PRN PRN Reason: Fever Last Admin: 05/18/23 21:03 Dose: 650 mg Al Hydroxide/Mg Hydroxide (Magnesium Hydrox/Alum Hydrox 30 Ml Oral.Susp) 30 ml PO Q6H PRN PRN Reason: Heartburn/Nausea Artificial Tears (Artificial Tears 15 Ml Drops) 1 drop EYE-BOTH Q4H PRN PRN Reason: Dry Eyes Last Admin: 03/24/23 01:42 Dose: 1 drop Bisacodyl (Bisacodyl 5 Mg Tablet.Dr) 10 mg PO DAILY PRN PRN Reason: Constipation Last Admin: 04/01/23 09:11 Dose: 10 mg Hydroxyzine HCl (Hydroxyzine Hcl 25 Mg Tablet) 25 mg PO Q6H PRN PRN Reason: Anxiety Last Admin: 05/18/23 21:03 Dose: 25 mg Lamotrigine (Lamotrigine 100 Mg Tablet) 100 mg PO BID CASEY Last Admin: 05/21/23 09:23 Dose: 100 mg Lidocaine (Lidocaine 4 % Patch Adh..Patch) 1 patch TRANSDERMA DAILY [facility]; Protocol Last Admin: 05/21/23 09:22 Dose: 1 patch Magnesium Hydroxide (Milk Of Magnesia 30 Ml Oral.Susp) 30 ml PO DAILY PRN PRN Reason: Constipation Last Admin: 05/02/23 11:03 Dose: 30 ml Memantine (Memantine Hcl 5 Mg Tablet) 5 mg PO BID [facility] Last Admin: 05/21/23 09:23 Dose: 5 mg Olanzapine (Olanzapine 2.5 Mg Tablet) 2.5 mg PO TID PRN PRN Reason: agitation Last Admin: 04/17/23 23:36 Dose: 2.5 mg Olanzapine (Olanzapine 7.5 Mg Tablet) 7.5 mg PO BEDTIME CASEY Last Admin: 05/20/23 21:08 Dose: 7.5 mg Polyethylene Glycol (Polyethylene Glycol 3350 17 Gm Powd.Pack) 17 gm PO DAILY CASEY Last Admin: 05/21/23 09:22 Dose: 17 gm Tramadol HCl (Tramadol Hcl 50 Mg Tablet) 50 mg PO Q6H PRN PRN Reason: moderate, pain Last Admin: 05/19/23 03:19 Dose: 50 mg Trazodone HCl (Trazodone Hcl 100 Mg Tablet) 100 mg PO BEDTIME CASEY Last Admin: 05/20/23 21:08 Dose: 100 mg Allergies Allergies Allergy/AdvReac Type Severity Reaction Status Date / Time pollen extracts Allergy Unknown unknown Verified 04/21/22 14:56 latex Allergy Rash Verified 10/31/22 18:30 Assessment & Plan Assessment & Plan (1) Bipolar disorder, now depressed: Status: Acute Code(s): F31.30 - Bipolar disorder, current episode depressed, mild or moderate severity, unspecified Assessment and Plan: Continue with current regimen (2) Chronic back pain: Status: Acute Code(s): M54.9 - Dorsalgia, unspecified; G89.29 - Other chronic pain Assessment and Plan: No change in management (3) Dementia: Status: Acute Code(s): F03.90 - Unspecified dementia, unspecified severity, without behavioral disturbance, psychotic disturbance, mood disturbance, and anxiety Assessment and Plan: continue memantine Plan 82 year old male with history hyperlipidemia, tubular adenoma colon, BPH, chronic normocytic anemia, 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 plan 1. Continue with same treatment. 2. Waiting for placement Reason for continued inpatient stay Substantial Risk for: inability to function, rapid decompensation and med/psych decompensation Time Spent With Patient Time: Total time managing care of this patient today __20__ minutes.
[2023-05-21 18:00] VITALS: BP 126/67; PULSE 67; RESP 18; TEMP 36.4; O2SAT 95
[2023-05-21] MEDS: traZODone HCL 100 MG TABLET PO (21:03)
[2023-05-21] MEDS: OLANZapine 7.5 MG TABLET PO (21:03)
[2023-05-22] MEDS: traMADoL HCL 50 MG TABLET PO (03:26)
[2023-05-22 08:02] VITALS: BP 89/52; PULSE 77; RESP 17; TEMP 36.6; O2SAT 94
[2023-05-22] MEDS: Memantine HCl 5 MG TABLET PO ×2 (08:07→20:30)
[2023-05-22] MEDS: lamoTRIgine 100 MG TABLET PO ×2 (08:07→20:30)
[2023-05-22] MEDS: polyethylene glycoL 3350 17 GM POWD.PACK PO (08:09)
[2023-05-22] MEDS: Lidocaine 4 % Patch ADH..PATCH 1 PATCH TRANSDERMA (08:12)
--- NOTE | 2023-05-22 12:27 | P.PNPSI_ITS ---
Subjective Subjective Date of Service: 05/22/23 Reason For Visit: F31.9, F43.25 Subjective Notes: Conditional Voluntary Interim History: The nursing staff reported no changes in his mental status pleasantly confused easily redirectable. On interview the patient denies new symptoms, waiting for placement. He is confused, asking to go back to his parent's home. Mental Status Exam Mental Status Exam Patient Appearance: Unkempt Patient Orientation: Person and Situation Level of Consciousness: Awake and Appropriate Patient Behavior: Guarded and Passive Mood Description: Withdrawn Affect Description: Constricted Patient Cognition Impaired: Yes Ability to Follow Directions: Good Speech Pattern: Clear Hallucinations: None Delusions: Not Present Thought Process: Distracted and Evasive Thought Content: positive for [place] and positive for Poverty of Content Judgement: Poor Diagnostics Vital Signs (24Hr): Vital Signs - 24 hr 05/21/23 18:00 05/22/23 08:02 Temperature 97.5 F 97.9 F Pulse Rate 67 77 Respiratory Rate 18 17 Blood Pressure 126/67 89/52 L Pulse Oximetry 95 94 Oxygen Delivery Method Room Air Room Air BMI result Body Mass Index 27.3 Labs 02/15/23 06:42 02/15/23 06:43 Medications Medications Current Medications Acetaminophen (Acetaminophen 325 Mg Tablet) 650 mg PO Q4H PRN PRN Reason: Fever Last Admin: 05/18/23 21:03 Dose: 650 mg Al Hydroxide/Mg Hydroxide (Magnesium Hydrox/Alum Hydrox 30 Ml Oral.Susp) 30 ml PO Q6H PRN PRN Reason: Heartburn/Nausea Artificial Tears (Artificial Tears 15 Ml Drops) 1 drop EYE-BOTH Q4H PRN PRN Reason: Dry Eyes Last Admin: 03/24/23 01:42 Dose: 1 drop Bisacodyl (Bisacodyl 5 Mg Tablet.Dr) 10 mg PO DAILY PRN PRN Reason: Constipation Last Admin: 04/01/23 09:11 Dose: 10 mg Hydroxyzine HCl (Hydroxyzine Hcl 25 Mg Tablet) 25 mg PO Q6H PRN PRN Reason: Anxiety Last Admin: 05/18/23 21:03 Dose: 25 mg Lamotrigine (Lamotrigine 100 Mg Tablet) 100 mg PO BID CASEY Last Admin: 05/22/23 08:07 Dose: 100 mg Lidocaine (Lidocaine 4 % Patch Adh..Patch) 1 patch TRANSDERMA DAILY [facility]; Protocol Last Admin: 05/22/23 08:12 Dose: 1 patch Magnesium Hydroxide (Milk Of Magnesia 30 Ml Oral.Susp) 30 ml PO DAILY PRN PRN Reason: Constipation Last Admin: 05/02/23 11:03 Dose: 30 ml Memantine (Memantine Hcl 5 Mg Tablet) 5 mg PO BID [facility] Last Admin: 05/22/23 08:07 Dose: 5 mg Olanzapine (Olanzapine 2.5 Mg Tablet) 2.5 mg PO TID PRN PRN Reason: agitation Last Admin: 04/17/23 23:36 Dose: 2.5 mg Olanzapine (Olanzapine 7.5 Mg Tablet) 7.5 mg PO BEDTIME CASEY Last Admin: 05/21/23 21:03 Dose: 7.5 mg Polyethylene Glycol (Polyethylene Glycol 3350 17 Gm Powd.Pack) 17 gm PO DAILY [facility] Last Admin: 05/22/23 08:09 Dose: 17 gm Tramadol HCl (Tramadol Hcl 50 Mg Tablet) 50 mg PO Q6H PRN PRN Reason: moderate, pain Last Admin: 05/22/23 03:26 Dose: 50 mg Trazodone HCl (Trazodone Hcl 100 Mg Tablet) 100 mg PO BEDTIME [facility]Y Last Admin: 05/21/23 21:03 Dose: 100 mg Allergies Allergies Allergy/AdvReac Type Severity Reaction Status Date / Time pollen extracts Allergy Unknown unknown Verified 04/21/22 14:56 latex Allergy Rash Verified 10/31/22 18:30 Assessment & Plan Assessment & Plan (1) Bipolar disorder, now depressed: Status: Acute Code(s): F31.30 - Bipolar disorder, current episode depressed, mild or moderate severity, unspecified Assessment and Plan: Continue with current regimen (2) Chronic back pain: Status: Acute Code(s): M54.9 - Dorsalgia, unspecified; G89.29 - Other chronic pain Assessment and Plan: No change in management (3) Dementia: Status: Acute Code(s): F03.90 - Unspecified dementia, unspecified severity, without behavioral disturbance, psychotic disturbance, mood disturbance, and anxiety Assessment and Plan: continue memantine Plan 82 year old male with history hyperlipidemia, tubular adenoma colon, BPH, chronic normocytic anemia, 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 plan 1. Continue with same treatment. 2. Waiting for placement Reason for continued inpatient stay Substantial Risk for: inability to function, rapid decompensation and med/psych decompensation Time Spent With Patient Time: Total time managing care of this patient today _20___ minutes.
[2023-05-22 20:25] VITALS: BP 125/60; PULSE 88; RESP 16; TEMP 36.6; O2SAT 94
[2023-05-22] MEDS: traZODone HCL 100 MG TABLET PO (20:30)
[2023-05-22] MEDS: OLANZapine 7.5 MG TABLET PO (20:30)
[2023-05-23 07:45] VITALS: BP 109/54; PULSE 59; RESP 15; TEMP 36.4; O2SAT 95
[2023-05-23] MEDS: Memantine HCl 5 MG TABLET PO ×2 (09:02→20:48)
[2023-05-23] MEDS: lamoTRIgine 100 MG TABLET PO ×2 (09:02→20:48)
[2023-05-23] MEDS: polyethylene glycoL 3350 17 GM POWD.PACK PO (09:03)
[2023-05-23] MEDS: Lidocaine 4 % Patch ADH..PATCH 1 PATCH TRANSDERMA (09:03)
--- NOTE | 2023-05-23 14:56 | P.PNPSI_ITS ---
Subjective Subjective Date of Service: 05/23/23 Reason For Visit: F31.9, F43.25 Subjective Notes: Conditional Voluntary Interim History: The nursing staff reported no changes in his mental status confused but easily redirectable. On interview the patient reported that wants to be discharged but he has realized that he is homeless. Waiting for placement. Mental Status Exam Mental Status Exam Patient Appearance: Appropriate Patient Orientation: Person and Situation Level of Consciousness: Awake Patient Behavior: Guarded and Passive Mood Description: Withdrawn Affect Description: Constricted Patient Cognition Impaired: Yes Ability to Follow Directions: Good Speech Pattern: Clear Hallucinations: None Delusions: Not Present Thought Process: Distracted and Slowed Thinking Thought Content: positive for [place] and positive for Poverty of Content Judgement: Poor Diagnostics Vital Signs (24Hr): Vital Signs - 24 hr 05/22/23 20:25 05/23/23 07:45 Temperature 97.8 F 97.6 F Pulse Rate 88 59 Respiratory Rate 16 15 Blood Pressure 125/60 109/54 L Pulse Oximetry 94 95 Oxygen Delivery Method Room Air Room Air BMI result Body Mass Index 27.3 Labs 02/15/23 06:42 02/15/23 06:43 Medications Medications Current Medications Acetaminophen (Acetaminophen 325 Mg Tablet) 650 mg PO Q4H PRN PRN Reason: Fever Last Admin: 05/18/23 21:03 Dose: 650 mg Al Hydroxide/Mg Hydroxide (Magnesium Hydrox/Alum Hydrox 30 Ml Oral.Susp) 30 ml PO Q6H PRN PRN Reason: Heartburn/Nausea Artificial Tears (Artificial Tears 15 Ml Drops) 1 drop EYE-BOTH Q4H PRN PRN Reason: Dry Eyes Last Admin: 03/24/23 01:42 Dose: 1 drop Bisacodyl (Bisacodyl 5 Mg Tablet.Dr) 10 mg PO DAILY PRN PRN Reason: Constipation Last Admin: 04/01/23 09:11 Dose: 10 mg Hydroxyzine HCl (Hydroxyzine Hcl 25 Mg Tablet) 25 mg PO Q6H PRN PRN Reason: Anxiety Last Admin: 05/18/23 21:03 Dose: 25 mg Lamotrigine (Lamotrigine 100 Mg Tablet) 100 mg PO BID [facility] Last Admin: 05/23/23 09:02 Dose: 100 mg Lidocaine (Lidocaine 4 % Patch Adh..Patch) 1 patch TRANSDERMA DAILY [facility]; Protocol Last Admin: 05/23/23 09:03 Dose: 1 patch Magnesium Hydroxide (Milk Of Magnesia 30 Ml Oral.Susp) 30 ml PO DAILY PRN PRN Reason: Constipation Last Admin: 05/02/23 11:03 Dose: 30 ml Memantine (Memantine Hcl 5 Mg Tablet) 5 mg PO BID [facility] Last Admin: 05/23/23 09:02 Dose: 5 mg Olanzapine (Olanzapine 2.5 Mg Tablet) 2.5 mg PO TID PRN PRN Reason: agitation Last Admin: 04/17/23 23:36 Dose: 2.5 mg Olanzapine (Olanzapine 7.5 Mg Tablet) 7.5 mg PO BEDTIME [facility]Y Last Admin: 05/22/23 20:30 Dose: 7.5 mg Polyethylene Glycol (Polyethylene Glycol 3350 17 Gm Powd.Pack) 17 gm PO DAILY [facility]Y Last Admin: 05/23/23 09:03 Dose: 17 gm Tramadol HCl (Tramadol Hcl 50 Mg Tablet) 50 mg PO Q6H PRN PRN Reason: moderate, pain Last Admin: 05/22/23 03:26 Dose: 50 mg Trazodone HCl (Trazodone Hcl 100 Mg Tablet) 100 mg PO BEDTIME [facility]Y Last Admin: 05/22/23 20:30 Dose: 100 mg Allergies Allergies Allergy/AdvReac Type Severity Reaction Status Date / Time pollen extracts Allergy Unknown unknown Verified 04/21/22 14:56 latex Allergy Rash Verified 10/31/22 18:30 Assessment & Plan Assessment & Plan (1) Bipolar disorder, now depressed: Status: Acute Code(s): F31.30 - Bipolar disorder, current episode depressed, mild or moderate severity, unspecified Assessment and Plan: Continue with current regimen (2) Chronic back pain: Status: Acute Code(s): M54.9 - Dorsalgia, unspecified; G89.29 - Other chronic pain Assessment and Plan: No change in management (3) Dementia: Status: Acute Code(s): F03.90 - Unspecified dementia, unspecified severity, without behavioral disturbance, psychotic disturbance, mood disturbance, and anxiety Assessment and Plan: continue memantine Plan 82 year old male with history hyperlipidemia, tubular adenoma colon, BPH, chronic normocytic anemia, 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 plan 1. Continue with same treatment. 2. Waiting for placement Reason for continued inpatient stay Substantial Risk for: inability to function, rapid decompensation and med/psych decompensation Time Spent With Patient Time: Total time managing care of this patient today __20__ minutes.
[2023-05-23 20:47] VITALS: BP 145/81; PULSE 73; RESP 18; TEMP 36.5; O2SAT 97
[2023-05-23] MEDS: traZODone HCL 100 MG TABLET PO (20:48)
[2023-05-23] MEDS: OLANZapine 7.5 MG TABLET PO (20:48)
[2023-05-24 08:10] VITALS: BP 132/72; PULSE 71; RESP 18; TEMP 36; O2SAT 97
[2023-05-24] MEDS: Lidocaine 4 % Patch ADH..PATCH 1 PATCH TRANSDERMA (09:13)
[2023-05-24] MEDS: polyethylene glycoL 3350 17 GM POWD.PACK PO (09:13)
[2023-05-24] MEDS: Memantine HCl 5 MG TABLET PO ×2 (09:14→20:47)
[2023-05-24] MEDS: lamoTRIgine 100 MG TABLET PO ×2 (09:14→20:47)
--- NOTE | 2023-05-24 15:25 | HO.PSYCHPN ---
Subjective Subjective Date of Service: 05/24/23 Reason For Visit: F31.9, F43.25 Subjective Notes: Conditional Voluntary Interim History: The nursing staff reported no changes in his mental status confused but easily redirectable. On interview the patient reports that he wants to go back to his parent's house I explained him that his parents more than 20 years ago. Waiting for placement. Mental Status Exam Mental Status Exam Patient Appearance: Appropriate Patient Orientation: Person and Situation Level of Consciousness: Awake and Appropriate Patient Behavior: Passive Mood Description: Calm Affect Description: Constricted Patient Cognition Impaired: Yes Ability to Follow Directions: Good Speech Pattern: Clear Hallucinations: None Delusions: Not Present Thought Process: Linear Thought Content: positive for Circumstantial Judgement: Fair Diagnostics Vital Signs (24Hr): Vital Signs - 24 hr 05/23/23 20:47 05/24/23 08:10 Temperature 97.7 F 96.8 F Pulse Rate 73 71 Respiratory Rate 18 18 Blood Pressure 145/81 H 132/72 Pulse Oximetry 97 97 Oxygen Delivery Method Room Air Room Air BMI result Body Mass Index 27.3 Labs 02/15/23 06:42 02/15/23 06:43 Medications Medications Current Medications Acetaminophen (Acetaminophen 325 Mg Tablet) 650 mg PO Q4H PRN PRN Reason: Fever Last Admin: 05/18/23 21:03 Dose: 650 mg Al Hydroxide/Mg Hydroxide (Magnesium Hydrox/Alum Hydrox 30 Ml Oral.Susp) 30 ml PO Q6H PRN PRN Reason: Heartburn/Nausea Artificial Tears (Artificial Tears 15 Ml Drops) 1 drop EYE-BOTH Q4H PRN PRN Reason: Dry Eyes Last Admin: 03/24/23 01:42 Dose: 1 drop Bisacodyl (Bisacodyl 5 Mg Tablet.Dr) 10 mg PO DAILY PRN PRN Reason: Constipation Last Admin: 04/01/23 09:11 Dose: 10 mg Hydroxyzine HCl (Hydroxyzine Hcl 25 Mg Tablet) 25 mg PO Q6H PRN PRN Reason: Anxiety Last Admin: 05/18/23 21:03 Dose: 25 mg Lamotrigine (Lamotrigine 100 Mg Tablet) 100 mg PO BID [facility] Last Admin: 05/24/23 09:14 Dose: 100 mg Lidocaine (Lidocaine 4 % Patch Adh..Patch) 1 patch TRANSDERMA DAILY [facility]; Protocol Last Admin: 05/24/23 09:13 Dose: 1 patch Magnesium Hydroxide (Milk Of Magnesia 30 Ml Oral.Susp) 30 ml PO DAILY PRN PRN Reason: Constipation Last Admin: 05/02/23 11:03 Dose: 30 ml Memantine (Memantine Hcl 5 Mg Tablet) 5 mg PO BID [facility] Last Admin: 05/24/23 09:14 Dose: 5 mg Olanzapine (Olanzapine 2.5 Mg Tablet) 2.5 mg PO TID PRN PRN Reason: agitation Last Admin: 04/17/23 23:36 Dose: 2.5 mg Olanzapine (Olanzapine 7.5 Mg Tablet) 7.5 mg PO BEDTIME [facility] Last Admin: 05/23/23 20:48 Dose: 7.5 mg Polyethylene Glycol (Polyethylene Glycol 3350 17 Gm Powd.Pack) 17 gm PO DAILY [facility] Last Admin: 05/24/23 09:13 Dose: 17 gm Tramadol HCl (Tramadol Hcl 50 Mg Tablet) 50 mg PO Q6H PRN PRN Reason: moderate, pain Last Admin: 05/22/23 03:26 Dose: 50 mg Trazodone HCl (Trazodone Hcl 100 Mg Tablet) 100 mg PO BEDTIME [facility] Last Admin: 05/23/23 20:48 Dose: 100 mg Allergies Allergies Allergy/AdvReac Type Severity Reaction Status Date / Time pollen extracts Allergy Unknown unknown Verified 04/21/22 14:56 latex Allergy Rash Verified 10/31/22 18:30 Assessment & Plan Assessment & Plan (1) Bipolar disorder, now depressed: Status: Acute Code(s): F31.30 - Bipolar disorder, current episode depressed, mild or moderate severity, unspecified Assessment and Plan: Continue with current regimen (2) Chronic back pain: Status: Acute Code(s): M54.9 - Dorsalgia, unspecified; G89.29 - Other chronic pain Assessment and Plan: No change in management (3) Dementia: Status: Acute Code(s): F03.90 - Unspecified dementia, unspecified severity, without behavioral disturbance, psychotic disturbance, mood disturbance, and anxiety Assessment and Plan: continue memantine Plan 82 year old male with history hyperlipidemia, tubular adenoma colon, BPH, chronic normocytic anemia, 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 plan 1. Continue with same treatment. 2. Waiting for placement Reason for continued inpatient stay Substantial Risk for: inability to function, rapid decompensation and med/psych decompensation Time Spent With Patient Time: Total time managing care of this patient today __20__ minutes.
[2023-05-24 18:00] VITALS: BP 107/53; PULSE 71; RESP 18; TEMP 36.1; O2SAT 95
[2023-05-24] MEDS: OLANZapine 7.5 MG TABLET PO (20:46)
[2023-05-24] MEDS: traZODone HCL 100 MG TABLET PO (20:46)
[2023-05-24] MEDS: hydrOXYzine HCL 25 MG TABLET PO (20:47)
[2023-05-24] MEDS: Acetaminophen 325 MG TABLET 650 MG PO (20:47)
[2023-05-25 08:29] VITALS: BP 114/62; PULSE 73; RESP 18; TEMP 37; O2SAT 95
[2023-05-25] MEDS: polyethylene glycoL 3350 17 GM POWD.PACK PO (08:36)
[2023-05-25] MEDS: lamoTRIgine 100 MG TABLET PO ×2 (08:37→20:36)
[2023-05-25] MEDS: Memantine HCl 5 MG TABLET PO ×2 (08:37→20:36)
[2023-05-25] MEDS: Lidocaine 4 % Patch ADH..PATCH 1 PATCH TRANSDERMA (08:37)
[2023-05-25] MEDS: OLANZapine 2.5 MG TABLET PO (09:45)
[2023-05-25] MEDS: traMADoL HCL 50 MG TABLET PO (09:46)
--- NOTE | 2023-05-25 10:22 | P.PNPSI_ITS ---
Subjective Subjective Date of Service: 05/25/23 Reason For Visit: F31.9, F43.25 Subjective Notes: Conditional Voluntary Interim History: The nursing staff reported no changes in his mental status confused but easily redirectable. On interview no changes, waiting for placement. Mental Status Exam Mental Status Exam Patient Appearance: Appropriate Patient Orientation: Person Level of Consciousness: Awake Patient Behavior: Guarded and Passive Mood Description: Withdrawn Affect Description: Constricted Patient Cognition Impaired: Yes Ability to Follow Directions: Good Speech Pattern: Clear Hallucinations: None Delusions: Not Present Thought Content: positive for [place] and positive for [place] Oriented Judgement: Fair Diagnostics Vital Signs (24Hr): Vital Signs - 24 hr 05/24/23 18:00 05/25/23 08:29 Temperature 97 F 98.6 F Pulse Rate 71 73 Respiratory Rate 18 18 Blood Pressure 107/53 L 114/62 Pulse Oximetry 95 95 Oxygen Delivery Method Room Air Room Air BMI result Body Mass Index 27.3 Labs 02/15/23 06:42 02/15/23 06:43 Medications Medications Current Medications Acetaminophen (Acetaminophen 325 Mg Tablet) 650 mg PO Q4H PRN PRN Reason: Fever Last Admin: 05/24/23 20:47 Dose: 650 mg Al Hydroxide/Mg Hydroxide (Magnesium Hydrox/Alum Hydrox 30 Ml Oral.Susp) 30 ml PO Q6H PRN PRN Reason: Heartburn/Nausea Artificial Tears (Artificial Tears 15 Ml Drops) 1 drop EYE-BOTH Q4H PRN PRN Reason: Dry Eyes Last Admin: 03/24/23 01:42 Dose: 1 drop Bisacodyl (Bisacodyl 5 Mg Tablet.) 10 mg PO DAILY PRN PRN Reason: Constipation Last Admin: 04/01/23 09:11 Dose: 10 mg Hydroxyzine HCl (Hydroxyzine Hcl 25 Mg Tablet) 25 mg PO Q6H PRN PRN Reason: Anxiety Last Admin: 05/24/23 20:47 Dose: 25 mg Lamotrigine (Lamotrigine 100 Mg Tablet) 100 mg PO BID [facility]Y Last Admin: 05/25/23 08:37 Dose: 100 mg Lidocaine (Lidocaine 4 % Patch Adh..Patch) 1 patch TRANSDERMA DAILY [facility]; Protocol Last Admin: 05/25/23 08:37 Dose: 1 patch Magnesium Hydroxide (Milk Of Magnesia 30 Ml Oral.Susp) 30 ml PO DAILY PRN PRN Reason: Constipation Last Admin: 05/02/23 11:03 Dose: 30 ml Memantine (Memantine Hcl 5 Mg Tablet) 5 mg PO BID [facility] Last Admin: 05/25/23 08:37 Dose: 5 mg Olanzapine (Olanzapine 2.5 Mg Tablet) 2.5 mg PO TID PRN PRN Reason: agitation Last Admin: 05/25/23 09:45 Dose: 2.5 mg Olanzapine (Olanzapine 7.5 Mg Tablet) 7.5 mg PO BEDTIME [facility] Last Admin: 05/24/23 20:46 Dose: 7.5 mg Polyethylene Glycol (Polyethylene Glycol 3350 17 Gm Powd.Pack) 17 gm PO DAILY [facility] Last Admin: 05/25/23 08:36 Dose: 17 gm Tramadol HCl (Tramadol Hcl 50 Mg Tablet) 50 mg PO Q6H PRN PRN Reason: moderate, pain Last Admin: 05/25/23 09:46 Dose: 50 mg Trazodone HCl (Trazodone Hcl 100 Mg Tablet) 100 mg PO BEDTIME [facility] Last Admin: 05/24/23 20:46 Dose: 100 mg Allergies Allergies Allergy/AdvReac Type Severity Reaction Status Date / Time pollen extracts Allergy Unknown unknown Verified 04/21/22 14:56 latex Allergy Rash Verified 10/31/22 18:30 Assessment & Plan Assessment & Plan (1) Bipolar disorder, now depressed: Status: Acute Code(s): F31.30 - Bipolar disorder, current episode depressed, mild or moderate severity, unspecified Assessment and Plan: Continue with current regimen (2) Chronic back pain: Status: Acute Code(s): M54.9 - Dorsalgia, unspecified; G89.29 - Other chronic pain Assessment and Plan: No change in management (3) Dementia: Status: Acute Code(s): F03.90 - Unspecified dementia, unspecified severity, without behavioral disturbance, psychotic disturbance, mood disturbance, and anxiety Assessment and Plan: continue memantine Plan 82 year old male with history hyperlipidemia, tubular adenoma colon, BPH, chronic normocytic anemia, 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 plan 1. Continue with same treatment. 2. Waiting for placement Reason for continued inpatient stay Substantial Risk for: inability to function, rapid decompensation and med/psych decompensation Time Spent With Patient Time: Total time managing care of this patient today __20__ minutes.
[2023-05-25 18:00] VITALS: BP 112/51; PULSE 67; RESP 17; TEMP 36.1; O2SAT 94
[2023-05-25] MEDS: hydrOXYzine HCL 25 MG TABLET PO (18:41)
[2023-05-25] MEDS: OLANZapine 7.5 MG TABLET PO (20:36)
[2023-05-25] MEDS: traZODone HCL 100 MG TABLET PO (20:37)
[2023-05-26 06:00] VITALS: BP 111/56; PULSE 70; RESP 16; TEMP 37.1; O2SAT 94
[2023-05-26] MEDS: polyethylene glycoL 3350 17 GM POWD.PACK PO (08:25)
[2023-05-26] MEDS: Memantine HCl 5 MG TABLET PO ×2 (08:25→20:26)
[2023-05-26] MEDS: lamoTRIgine 100 MG TABLET PO ×2 (08:26→20:26)
[2023-05-26] MEDS: Lidocaine 4 % Patch ADH..PATCH 1 PATCH TRANSDERMA (08:26)
[2023-05-26] MEDS: OLANZapine 2.5 MG TABLET PO (08:46)
--- NOTE | 2023-05-26 11:16 | HO.PSYCHPN ---
Subjective Subjective Date of Service: 05/26/23 Reason For Visit: F31.9, F43.25 Subjective Notes: Conditional Voluntary Interim History: The nursing staff reported no changes in his mental status confused easily redirectable. He slept 8 hours. On interview the patient denies new symptoms, waiting for placement very confused. Mental Status Exam Mental Status Exam Patient Appearance: Appropriate Patient Orientation: Person Level of Consciousness: Awake Patient Behavior: Guarded and Passive Mood Description: Withdrawn Patient Cognition Impaired: Yes Ability to Follow Directions: Good Speech Pattern: Clear Hallucinations: None Delusions: Not Present Thought Process: Distracted and Slowed Thinking Thought Content: positive for [place] and positive for Poverty of Content Judgement: Fair Diagnostics Vital Signs (24Hr): Vital Signs - 24 hr 05/25/23 18:00 05/26/23 06:00 Temperature 97 F 98.8 F Pulse Rate 67 70 Respiratory Rate 17 16 Blood Pressure 112/51 L 111/56 L Pulse Oximetry 94 94 Oxygen Delivery Method Room Air Room Air BMI result Body Mass Index 27.3 Labs 02/15/23 06:42 02/15/23 06:43 Medications Medications Current Medications Acetaminophen (Acetaminophen 325 Mg Tablet) 650 mg PO Q4H PRN PRN Reason: Fever Last Admin: 05/24/23 20:47 Dose: 650 mg Al Hydroxide/Mg Hydroxide (Magnesium Hydrox/Alum Hydrox 30 Ml Oral.Susp) 30 ml PO Q6H PRN PRN Reason: Heartburn/Nausea Artificial Tears (Artificial Tears 15 Ml Drops) 1 drop EYE-BOTH Q4H PRN PRN Reason: Dry Eyes Last Admin: 03/24/23 01:42 Dose: 1 drop Bisacodyl (Bisacodyl 5 Mg Tablet.) 10 mg PO DAILY PRN PRN Reason: Constipation Last Admin: 04/01/23 09:11 Dose: 10 mg Hydroxyzine HCl (Hydroxyzine Hcl 25 Mg Tablet) 25 mg PO Q6H PRN PRN Reason: Anxiety Last Admin: 05/25/23 18:41 Dose: 25 mg Lamotrigine (Lamotrigine 100 Mg Tablet) 100 mg PO BID [facility] Last Admin: 05/26/23 08:26 Dose: 100 mg Lidocaine (Lidocaine 4 % Patch Adh..Patch) 1 patch TRANSDERMA DAILY [facility]; Protocol Last Admin: 05/26/23 08:26 Dose: 1 patch Magnesium Hydroxide (Milk Of Magnesia 30 Ml Oral.Susp) 30 ml PO DAILY PRN PRN Reason: Constipation Last Admin: 05/02/23 11:03 Dose: 30 ml Memantine (Memantine Hcl 5 Mg Tablet) 5 mg PO BID [facility] Last Admin: 05/26/23 08:25 Dose: 5 mg Olanzapine (Olanzapine 2.5 Mg Tablet) 2.5 mg PO TID PRN PRN Reason: agitation Last Admin: 05/26/23 08:46 Dose: 2.5 mg Olanzapine (Olanzapine 7.5 Mg Tablet) 7.5 mg PO BEDTIME [facility] Last Admin: 05/25/23 20:36 Dose: 7.5 mg Polyethylene Glycol (Polyethylene Glycol 3350 17 Gm Powd.Pack) 17 gm PO DAILY [facility] Last Admin: 05/26/23 08:25 Dose: 17 gm Tramadol HCl (Tramadol Hcl 50 Mg Tablet) 50 mg PO Q6H PRN PRN Reason: moderate, pain Last Admin: 05/25/23 09:46 Dose: 50 mg Trazodone HCl (Trazodone Hcl 100 Mg Tablet) 100 mg PO BEDTIME [facility] Last Admin: 05/25/23 20:37 Dose: 100 mg Allergies Allergies Allergy/AdvReac Type Severity Reaction Status Date / Time pollen extracts Allergy Unknown unknown Verified 04/21/22 14:56 latex Allergy Rash Verified 10/31/22 18:30 Assessment & Plan Assessment & Plan (1) Bipolar disorder, now depressed: Status: Acute Code(s): F31.30 - Bipolar disorder, current episode depressed, mild or moderate severity, unspecified Assessment and Plan: Continue with current regimen (2) Chronic back pain: Status: Acute Code(s): M54.9 - Dorsalgia, unspecified; G89.29 - Other chronic pain Assessment and Plan: No change in management (3) Dementia: Status: Acute Code(s): F03.90 - Unspecified dementia, unspecified severity, without behavioral disturbance, psychotic disturbance, mood disturbance, and anxiety Assessment and Plan: continue memantine Plan 82 year old male with history hyperlipidemia, tubular adenoma colon, BPH, chronic normocytic anemia, 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 plan 1. Continue with same treatment. 2. Waiting for placement Reason for continued inpatient stay Substantial Risk for: inability to function, rapid decompensation and med/psych decompensation Time Spent With Patient Time: Total time managing care of this patient today __20__ minutes.
[2023-05-26 18:00] VITALS: BP 109/61; PULSE 70; RESP 18; TEMP 36.2; O2SAT 96
[2023-05-26] MEDS: traZODone HCL 100 MG TABLET PO (20:26)
[2023-05-26] MEDS: OLANZapine 7.5 MG TABLET PO (20:26)
[2023-05-27 08:00] VITALS: BP 104/57; PULSE 74; RESP 18; TEMP 36.5; O2SAT 95
[2023-05-27] MEDS: lamoTRIgine 100 MG TABLET PO ×2 (08:08→20:32)
[2023-05-27] MEDS: Lidocaine 4 % Patch ADH..PATCH 1 PATCH TRANSDERMA (08:08)
[2023-05-27] MEDS: Memantine HCl 5 MG TABLET PO ×2 (08:08→20:32)
[2023-05-27] MEDS: polyethylene glycoL 3350 17 GM POWD.PACK PO (08:08)
--- NOTE | 2023-05-27 15:31 | HO.PSYCHPN ---
Subjective Subjective Date of Service: 05/27/23 Reason For Visit: F31.9, F43.25 Subjective Notes: Conditional Voluntary Interim History: The nursing staff reported no changes in his mental status compliant with treatment. On interview the patient denies new symptoms, waiting for placement Mental Status Exam Mental Status Exam Patient Appearance: Unkempt Patient Orientation: Person Level of Consciousness: Alert Patient Behavior: Passive Mood Description: Withdrawn Affect Description: Constricted Patient Cognition Impaired: Yes Ability to Follow Directions: Good Speech Pattern: Clear Hallucinations: None Delusions: Not Present Thought Process: Distracted and Slowed Thinking Thought Content: positive for [place] and positive for Poverty of Content Judgement: Poor Diagnostics Vital Signs (24Hr): Vital Signs - 24 hr 05/26/23 18:00 05/27/23 08:00 Temperature 97.2 F 97.7 F Pulse Rate 70 74 Respiratory Rate 18 18 Blood Pressure 109/61 104/57 L Pulse Oximetry 96 95 Oxygen Delivery Method Room Air Room Air BMI result Body Mass Index 27.3 Labs 02/15/23 06:42 02/15/23 06:43 Medications Medications Current Medications Acetaminophen (Acetaminophen 325 Mg Tablet) 650 mg PO Q4H PRN PRN Reason: Fever Last Admin: 05/24/23 20:47 Dose: 650 mg Al Hydroxide/Mg Hydroxide (Magnesium Hydrox/Alum Hydrox 30 Ml Oral.Susp) 30 ml PO Q6H PRN PRN Reason: Heartburn/Nausea Artificial Tears (Artificial Tears 15 Ml Drops) 1 drop EYE-BOTH Q4H PRN PRN Reason: Dry Eyes Last Admin: 03/24/23 01:42 Dose: 1 drop Bisacodyl (Bisacodyl 5 Mg Tablet.Dr) 10 mg PO DAILY PRN PRN Reason: Constipation Last Admin: 04/01/23 09:11 Dose: 10 mg Hydroxyzine HCl (Hydroxyzine Hcl 25 Mg Tablet) 25 mg PO Q6H PRN PRN Reason: Anxiety Last Admin: 05/25/23 18:41 Dose: 25 mg Lamotrigine (Lamotrigine 100 Mg Tablet) 100 mg PO BID [facility]Y Last Admin: 05/27/23 08:08 Dose: 100 mg Lidocaine (Lidocaine 4 % Patch Adh..Patch) 1 patch TRANSDERMA DAILY [facility]; Protocol Last Admin: 05/27/23 08:08 Dose: 1 patch Magnesium Hydroxide (Milk Of Magnesia 30 Ml Oral.Susp) 30 ml PO DAILY PRN PRN Reason: Constipation Last Admin: 05/02/23 11:03 Dose: 30 ml Memantine (Memantine Hcl 5 Mg Tablet) 5 mg PO BID [facility] Last Admin: 05/27/23 08:08 Dose: 5 mg Olanzapine (Olanzapine 2.5 Mg Tablet) 2.5 mg PO TID PRN PRN Reason: agitation Last Admin: 05/26/23 08:46 Dose: 2.5 mg Olanzapine (Olanzapine 7.5 Mg Tablet) 7.5 mg PO BEDTIME [facility] Last Admin: 05/26/23 20:26 Dose: 7.5 mg Polyethylene Glycol (Polyethylene Glycol 3350 17 Gm Powd.Pack) 17 gm PO DAILY [facility] Last Admin: 05/27/23 08:08 Dose: 17 gm Tramadol HCl (Tramadol Hcl 50 Mg Tablet) 50 mg PO Q6H PRN PRN Reason: moderate, pain Last Admin: 05/25/23 09:46 Dose: 50 mg Trazodone HCl (Trazodone Hcl 100 Mg Tablet) 100 mg PO BEDTIME [facility] Last Admin: 05/26/23 20:26 Dose: 100 mg Allergies Allergies Allergy/AdvReac Type Severity Reaction Status Date / Time pollen extracts Allergy Unknown unknown Verified 04/21/22 14:56 latex Allergy Rash Verified 10/31/22 18:30 Assessment & Plan Assessment & Plan (1) Bipolar disorder, now depressed: Status: Acute Code(s): F31.30 - Bipolar disorder, current episode depressed, mild or moderate severity, unspecified Assessment and Plan: Continue with current regimen (2) Chronic back pain: Status: Acute Code(s): M54.9 - Dorsalgia, unspecified; G89.29 - Other chronic pain Assessment and Plan: No change in management (3) Dementia: Status: Acute Code(s): F03.90 - Unspecified dementia, unspecified severity, without behavioral disturbance, psychotic disturbance, mood disturbance, and anxiety Assessment and Plan: continue memantine Plan 82 year old male with history hyperlipidemia, tubular adenoma colon, BPH, chronic normocytic anemia, 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 plan 1. Continue with same treatment. 2. Waiting for placement Reason for continued inpatient stay Substantial Risk for: inability to function, rapid decompensation and med/psych decompensation Time Spent With Patient Time: Total time managing care of this patient today __20__ minutes.
[2023-05-27 18:00] VITALS: BP 121/74; PULSE 73; RESP 18; TEMP 36.5; O2SAT 93
[2023-05-27] MEDS: OLANZapine 7.5 MG TABLET PO (20:32)
[2023-05-27] MEDS: traZODone HCL 100 MG TABLET PO (20:32)
[2023-05-28 07:40] VITALS: BP 115/63; PULSE 73; RESP 16; TEMP 36.7; O2SAT 95
[2023-05-28] MEDS: polyethylene glycoL 3350 17 GM POWD.PACK PO (08:20)
[2023-05-28] MEDS: Lidocaine 4 % Patch ADH..PATCH 1 PATCH TRANSDERMA (08:20)
[2023-05-28] MEDS: lamoTRIgine 100 MG TABLET PO ×2 (08:21→21:36)
[2023-05-28] MEDS: Memantine HCl 5 MG TABLET PO ×2 (08:21→21:36)
--- NOTE | 2023-05-28 13:58 | P.PNPSI_ITS ---
Subjective Subjective Date of Service: 05/28/23 Reason For Visit: F31.9, F43.25 Subjective Notes: Conditional Voluntary Interim History: The nursing staff reported no changes in his mental status confused but easily redirectable. On interview the patient stated that he wanted to go back to his parent's house, again I explained him that his parents more than 20 years ago and he is technically homeless. Waiting for placement. Mental Status Exam Mental Status Exam Patient Appearance: Appropriate Patient Orientation: Person and Situation Level of Consciousness: Awake and Appropriate Patient Behavior: Guarded and Passive Mood Description: Withdrawn Affect Description: Constricted Patient Cognition Impaired: Yes Ability to Follow Directions: Good Speech Pattern: Clear Hallucinations: None Delusions: Not Present Thought Process: Distracted and Evasive Thought Content: positive for [place] and positive for Poverty of Content Judgement: Poor Diagnostics Vital Signs (24Hr): Vital Signs - 24 hr 05/27/23 18:00 05/28/23 07:40 Temperature 97.7 F 98.1 F Pulse Rate 73 73 Respiratory Rate 18 16 Blood Pressure 121/74 115/63 Pulse Oximetry 93 95 Oxygen Delivery Method Room Air Room Air BMI result Body Mass Index 27.3 Labs 02/15/23 06:42 02/15/23 06:43 Medications Medications Current Medications Acetaminophen (Acetaminophen 325 Mg Tablet) 650 mg PO Q4H PRN PRN Reason: Fever Last Admin: 05/24/23 20:47 Dose: 650 mg Al Hydroxide/Mg Hydroxide (Magnesium Hydrox/Alum Hydrox 30 Ml Oral.Susp) 30 ml PO Q6H PRN PRN Reason: Heartburn/Nausea Artificial Tears (Artificial Tears 15 Ml Drops) 1 drop EYE-BOTH Q4H PRN PRN Reason: Dry Eyes Last Admin: 03/24/23 01:42 Dose: 1 drop Bisacodyl (Bisacodyl 5 Mg Tablet.Dr) 10 mg PO DAILY PRN PRN Reason: Constipation Last Admin: 04/01/23 09:11 Dose: 10 mg Hydroxyzine HCl (Hydroxyzine Hcl 25 Mg Tablet) 25 mg PO Q6H PRN PRN Reason: Anxiety Last Admin: 05/25/23 18:41 Dose: 25 mg Lamotrigine (Lamotrigine 100 Mg Tablet) 100 mg PO BID [facility] Last Admin: 05/28/23 08:21 Dose: 100 mg Lidocaine (Lidocaine 4 % Patch Adh..Patch) 1 patch TRANSDERMA DAILY [facility]; Protocol Last Admin: 05/28/23 08:20 Dose: 1 patch Magnesium Hydroxide (Milk Of Magnesia 30 Ml Oral.Susp) 30 ml PO DAILY PRN PRN Reason: Constipation Last Admin: 05/02/23 11:03 Dose: 30 ml Memantine (Memantine Hcl 5 Mg Tablet) 5 mg PO BID [facility] Last Admin: 05/28/23 08:21 Dose: 5 mg Olanzapine (Olanzapine 2.5 Mg Tablet) 2.5 mg PO TID PRN PRN Reason: agitation Last Admin: 05/26/23 08:46 Dose: 2.5 mg Olanzapine (Olanzapine 7.5 Mg Tablet) 7.5 mg PO BEDTIME [facility] Last Admin: 05/27/23 20:32 Dose: 7.5 mg Polyethylene Glycol (Polyethylene Glycol 3350 17 Gm Powd.Pack) 17 gm PO DAILY [facility] Last Admin: 05/28/23 08:20 Dose: 17 gm Tramadol HCl (Tramadol Hcl 50 Mg Tablet) 50 mg PO Q6H PRN PRN Reason: Pain, Severe (Pain Scale 7-10) Trazodone HCl (Trazodone Hcl 100 Mg Tablet) 100 mg PO BEDTIME [facility] Last Admin: 05/27/23 20:32 Dose: 100 mg Allergies Allergies Allergy/AdvReac Type Severity Reaction Status Date / Time pollen extracts Allergy Unknown unknown Verified 04/21/22 14:56 latex Allergy Rash Verified 10/31/22 18:30 Assessment & Plan Assessment & Plan (1) Bipolar disorder, now depressed: Status: Acute Code(s): F31.30 - Bipolar disorder, current episode depressed, mild or moderate severity, unspecified Assessment and Plan: Continue with current regimen (2) Chronic back pain: Status: Acute Code(s): M54.9 - Dorsalgia, unspecified; G89.29 - Other chronic pain Assessment and Plan: No change in management (3) Dementia: Status: Acute Code(s): F03.90 - Unspecified dementia, unspecified severity, without behavioral disturbance, psychotic disturbance, mood disturbance, and anxiety Assessment and Plan: continue memantine Plan 82 year old male with history hyperlipidemia, tubular adenoma colon, BPH, chronic normocytic anemia, 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 plan 1. Continue with same treatment. 2. Waiting for placement Reason for continued inpatient stay Substantial Risk for: inability to function, rapid decompensation and med/psych decompensation Time Spent With Patient Time: Total time managing care of this patient today __20__ minutes.
[2023-05-28 18:00] VITALS: BP 109/58; PULSE 69; RESP 18; TEMP 36.9; O2SAT 93
[2023-05-28] MEDS: hydrOXYzine HCL 25 MG TABLET PO (21:36)
[2023-05-28] MEDS: Acetaminophen 325 MG TABLET 650 MG PO (21:36)
[2023-05-28] MEDS: OLANZapine 7.5 MG TABLET PO (21:36)
[2023-05-28] MEDS: traZODone HCL 100 MG TABLET PO (21:36)
[2023-05-29] MEDS: traMADoL HCL 50 MG TABLET PO (02:42)
[2023-05-29] MEDS: OLANZapine 2.5 MG TABLET PO (02:43)
[2023-05-29 09:05] VITALS: BP 104/56; PULSE 75; RESP 16; TEMP 36.4; O2SAT 93
[2023-05-29] MEDS: Memantine HCl 5 MG TABLET PO ×2 (09:09→21:13)
[2023-05-29] MEDS: polyethylene glycoL 3350 17 GM POWD.PACK PO (09:09)
[2023-05-29] MEDS: lamoTRIgine 100 MG TABLET PO ×2 (09:09→21:13)
[2023-05-29] MEDS: Lidocaine 4 % Patch ADH..PATCH 1 PATCH TRANSDERMA (09:13)
--- NOTE | 2023-05-29 12:32 | P.PNPSI_ITS ---
Subjective Subjective Date of Service: 05/29/23 Reason For Visit: F31.9, F43.25 Subjective Notes: Conditional Voluntary Interim History: The nursing staff reported no changes in his mental status confused but easily redirectable. On interview the patient stated that he wanted to contact his parents I again remind him that his parents several years ago. Waiting for placement. Mental Status Exam Mental Status Exam Patient Appearance: Appropriate Patient Orientation: Person and Situation Level of Consciousness: Awake and Appropriate Patient Behavior: Guarded and Passive Mood Description: Withdrawn Affect Description: Constricted Patient Cognition Impaired: Yes Ability to Follow Directions: Fair Speech Pattern: Clear Hallucinations: None Delusions: Not Present Thought Process: Distracted and Slowed Thinking Thought Content: positive for [place] and positive for Poverty of Content Judgement: Poor Diagnostics Vital Signs (24Hr): Vital Signs - 24 hr 05/28/23 18:00 05/29/23 09:05 Temperature 98.4 F 97.5 F Pulse Rate 69 75 Respiratory Rate 18 16 Blood Pressure 109/58 L 104/56 L Pulse Oximetry 93 93 Oxygen Delivery Method Room Air Room Air BMI result Body Mass Index 27.3 Labs 02/15/23 06:42 02/15/23 06:43 Medications Medications Current Medications Acetaminophen (Acetaminophen 325 Mg Tablet) 650 mg PO Q4H PRN PRN Reason: Fever Last Admin: 05/28/23 21:36 Dose: 650 mg Al Hydroxide/Mg Hydroxide (Magnesium Hydrox/Alum Hydrox 30 Ml Oral.Susp) 30 ml PO Q6H PRN PRN Reason: Heartburn/Nausea Artificial Tears (Artificial Tears 15 Ml Drops) 1 drop EYE-BOTH Q4H PRN PRN Reason: Dry Eyes Last Admin: 03/24/23 01:42 Dose: 1 drop Bisacodyl (Bisacodyl 5 Mg Tablet.Dr) 10 mg PO DAILY PRN PRN Reason: Constipation Last Admin: 04/01/23 09:11 Dose: 10 mg Hydroxyzine HCl (Hydroxyzine Hcl 25 Mg Tablet) 25 mg PO Q6H PRN PRN Reason: Anxiety Last Admin: 05/28/23 21:36 Dose: 25 mg Lamotrigine (Lamotrigine 100 Mg Tablet) 100 mg PO BID [facility] Last Admin: 05/29/23 09:09 Dose: 100 mg Lidocaine (Lidocaine 4 % Patch Adh..Patch) 1 patch TRANSDERMA DAILY [facility]; Protocol Last Admin: 05/29/23 09:13 Dose: 1 patch Magnesium Hydroxide (Milk Of Magnesia 30 Ml Oral.Susp) 30 ml PO DAILY PRN PRN Reason: Constipation Last Admin: 05/02/23 11:03 Dose: 30 ml Memantine (Memantine Hcl 5 Mg Tablet) 5 mg PO BID [facility] Last Admin: 05/29/23 09:09 Dose: 5 mg Olanzapine (Olanzapine 2.5 Mg Tablet) 2.5 mg PO TID PRN PRN Reason: agitation Last Admin: 05/29/23 02:43 Dose: 2.5 mg Olanzapine (Olanzapine 7.5 Mg Tablet) 7.5 mg PO BEDTIME [facility] Last Admin: 05/28/23 21:36 Dose: 7.5 mg Polyethylene Glycol (Polyethylene Glycol 3350 17 Gm Powd.Pack) 17 gm PO DAILY [facility] Last Admin: 05/29/23 09:09 Dose: 17 gm Tramadol HCl (Tramadol Hcl 50 Mg Tablet) 50 mg PO Q6H PRN PRN Reason: Pain, Severe (Pain Scale 7-10) Last Admin: 05/29/23 02:42 Dose: 50 mg Trazodone HCl (Trazodone Hcl 100 Mg Tablet) 100 mg PO BEDTIME [facility] Last Admin: 05/28/23 21:36 Dose: 100 mg Allergies Allergies Allergy/AdvReac Type Severity Reaction Status Date / Time pollen extracts Allergy Unknown unknown Verified 04/21/22 14:56 latex Allergy Rash Verified 10/31/22 18:30 Assessment & Plan Assessment & Plan (1) Bipolar disorder, now depressed: Status: Acute Code(s): F31.30 - Bipolar disorder, current episode depressed, mild or moderate severity, unspecified Assessment and Plan: Continue with current regimen (2) Chronic back pain: Status: Acute Code(s): M54.9 - Dorsalgia, unspecified; G89.29 - Other chronic pain Assessment and Plan: No change in management (3) Dementia: Status: Acute Code(s): F03.90 - Unspecified dementia, unspecified severity, without behavioral disturbance, psychotic disturbance, mood disturbance, and anxiety Assessment and Plan: continue memantine Plan 82 year old male with history hyperlipidemia, tubular adenoma colon, BPH, chronic normocytic anemia, 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 plan 1. Continue with same treatment. 2. Waiting for placement Reason for continued inpatient stay Substantial Risk for: inability to function, rapid decompensation and med/psych decompensation Time Spent With Patient Time: Total time managing care of this patient today __20__ minutes.
[2023-05-29 18:00] VITALS: BP 122/88; PULSE 62; RESP 18; TEMP 36.5; O2SAT 94
[2023-05-29] MEDS: Acetaminophen 325 MG TABLET 650 MG PO (21:11)
[2023-05-29] MEDS: OLANZapine 7.5 MG TABLET PO (21:13)
[2023-05-29] MEDS: traZODone HCL 100 MG TABLET PO (21:13)
[2023-05-29] MEDS: hydrOXYzine HCL 25 MG TABLET PO (21:13)
[2023-05-30 07:00] VITALS: BMI 26.5
[2023-05-30 07:55] VITALS: BP 112/82; PULSE 70; RESP 18; TEMP 36.8; O2SAT 95
[2023-05-30] MEDS: lamoTRIgine 100 MG TABLET PO ×2 (08:29→21:18)
[2023-05-30] MEDS: Memantine HCl 5 MG TABLET PO ×2 (08:30→21:18)
[2023-05-30] MEDS: Lidocaine 4 % Patch ADH..PATCH 1 PATCH TRANSDERMA (08:30)
[2023-05-30] MEDS: polyethylene glycoL 3350 17 GM POWD.PACK PO (08:30)
--- NOTE | 2023-05-30 11:57 | P.PNPSI_ITS ---
Subjective Subjective Date of Service: 05/30/23 Reason For Visit: F31.9, F43.25 Subjective Notes: Conditional Voluntary Interim History: The nursing staff reported no changes in his mental status he complained of pain but refused her medications. The social media analyst reported that the main problem for placement is financial clearance. On interview the patient denies new symptoms confused but easily redirectable. Mental Status Exam Mental Status Exam Patient Appearance: Appropriate Patient Orientation: Person and Situation Level of Consciousness: Awake and Appropriate Patient Behavior: Guarded and Passive Mood Description: Withdrawn Patient Cognition Impaired: Yes Ability to Follow Directions: Good Speech Pattern: Clear Hallucinations: None Delusions: Not Present Thought Process: Illogical and Distracted Thought Content: positive for [place] and positive for Poverty of Content Judgement: Poor Diagnostics Vital Signs (24Hr): Vital Signs - 24 hr 05/29/23 18:00 05/30/23 07:55 Temperature 97.7 F 98.2 F Pulse Rate 62 70 Respiratory Rate 18 18 Blood Pressure 122/88 112/82 Pulse Oximetry 94 95 Oxygen Delivery Method Room Air Room Air BMI result Body Mass Index 27.3 Labs 02/15/23 06:42 02/15/23 06:43 Medications Medications Current Medications Acetaminophen (Acetaminophen 325 Mg Tablet) 650 mg PO Q4H PRN PRN Reason: Fever Last Admin: 05/29/23 21:11 Dose: 650 mg Al Hydroxide/Mg Hydroxide (Magnesium Hydrox/Alum Hydrox 30 Ml Oral.Susp) 30 ml PO Q6H PRN PRN Reason: Heartburn/Nausea Artificial Tears (Artificial Tears 15 Ml Drops) 1 drop EYE-BOTH Q4H PRN PRN Reason: Dry Eyes Last Admin: 03/24/23 01:42 Dose: 1 drop Bisacodyl (Bisacodyl 5 Mg Tablet.Dr) 10 mg PO DAILY PRN PRN Reason: Constipation Last Admin: 04/01/23 09:11 Dose: 10 mg Hydroxyzine HCl (Hydroxyzine Hcl 25 Mg Tablet) 25 mg PO Q6H PRN PRN Reason: Anxiety Last Admin: 05/29/23 21:13 Dose: 25 mg Lamotrigine (Lamotrigine 100 Mg Tablet) 100 mg PO BID [facility] Last Admin: 05/30/23 08:29 Dose: 100 mg Lidocaine (Lidocaine 4 % Patch Adh..Patch) 1 patch TRANSDERMA DAILY [facility]; Protocol Last Admin: 05/30/23 08:30 Dose: 1 patch Magnesium Hydroxide (Milk Of Magnesia 30 Ml Oral.Susp) 30 ml PO DAILY PRN PRN Reason: Constipation Last Admin: 05/02/23 11:03 Dose: 30 ml Memantine (Memantine Hcl 5 Mg Tablet) 5 mg PO BID [facility] Last Admin: 05/30/23 08:30 Dose: 5 mg Olanzapine (Olanzapine 2.5 Mg Tablet) 2.5 mg PO TID PRN PRN Reason: agitation Last Admin: 05/29/23 02:43 Dose: 2.5 mg Olanzapine (Olanzapine 7.5 Mg Tablet) 7.5 mg PO BEDTIME [facility] Last Admin: 05/29/23 21:13 Dose: 7.5 mg Polyethylene Glycol (Polyethylene Glycol 3350 17 Gm Powd.Pack) 17 gm PO DAILY [facility] Last Admin: 05/30/23 08:30 Dose: 17 gm Tramadol HCl (Tramadol Hcl 50 Mg Tablet) 50 mg PO Q6H PRN PRN Reason: Pain, Severe (Pain Scale 7-10) Last Admin: 05/29/23 02:42 Dose: 50 mg Trazodone HCl (Trazodone Hcl 100 Mg Tablet) 100 mg PO BEDTIME [facility] Last Admin: 05/29/23 21:13 Dose: 100 mg Allergies Allergies Allergy/AdvReac Type Severity Reaction Status Date / Time pollen extracts Allergy Unknown unknown Verified 04/21/22 14:56 latex Allergy Rash Verified 10/31/22 18:30 Assessment & Plan Assessment & Plan (1) Bipolar disorder, now depressed: Status: Acute Code(s): F31.30 - Bipolar disorder, current episode depressed, mild or moderate severity, unspecified Assessment and Plan: Continue with current regimen (2) Chronic back pain: Status: Acute Code(s): M54.9 - Dorsalgia, unspecified; G89.29 - Other chronic pain Assessment and Plan: No change in management (3) Dementia: Status: Acute Code(s): F03.90 - Unspecified dementia, unspecified severity, without behavioral disturbance, psychotic disturbance, mood disturbance, and anxiety Assessment and Plan: continue memantine Plan 82 year old male with history hyperlipidemia, tubular adenoma colon, BPH, chronic normocytic anemia, 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 plan 1. Continue with same treatment. 2. Waiting for placement Reason for continued inpatient stay Substantial Risk for: inability to function, rapid decompensation and med/psych decompensation Time Spent With Patient Time: Total time managing care of this patient today __20__ minutes.
[2023-05-30 19:35] VITALS: BP 114/65; PULSE 67; RESP 18; TEMP 36.4; O2SAT 95
[2023-05-30] MEDS: OLANZapine 7.5 MG TABLET PO (21:18)
[2023-05-30] MEDS: traZODone HCL 100 MG TABLET PO (21:18)
[2023-05-31 08:41] VITALS: BP 126/77; PULSE 75; RESP 16; TEMP 36.6; O2SAT 94
[2023-05-31] MEDS: traMADoL HCL 50 MG TABLET PO ×2 (08:48→21:07)
[2023-05-31] MEDS: polyethylene glycoL 3350 17 GM POWD.PACK PO (08:48)
[2023-05-31] MEDS: Memantine HCl 5 MG TABLET PO ×2 (08:48→21:07)
[2023-05-31] MEDS: lamoTRIgine 100 MG TABLET PO ×2 (08:48→21:07)
--- NOTE | 2023-05-31 10:31 | P.PNPSI_ITS ---
Subjective Subjective Date of Service: 05/31/23 Reason For Visit: F31.9, F43.25 Subjective Notes: Conditional Voluntary Interim History: Pt seen and discussed in team meeting. The nursing staff report no changes in his mental status. The social media specialist reported that the main problem for placement is financial clearance. On interview the patient denies new symptoms. He is confused but easily redirectable. slept 8 hours. No changes Medication Compliance: Yes Side effects from medications: No Attending Groups: Intermittent Review of Systems Acute medical concerns: No Medical Review of Systems: unchanged Review of Systems Review of Systems Back pain that is chronic in nature, no incontinence urinary or donita, no fever or chills, and weakness in the legs Yes all other systems are reviewed and are negative and Unobtainable due to mental status Mental Status Exam Mental Status Exam Narrative: speech clear, normal loudness, rate, amount. no complaints or concerns, no expressed SI/HI/AVH. Patient Appearance: Appropriate Patient Orientation: Person and Situation Level of Consciousness: Awake and Appropriate Patient Behavior: Guarded and Passive Mood Description: Withdrawn Affect Description: Constricted Patient Cognition Impaired: Yes Ability to Follow Directions: Good Speech Pattern: Clear Memory Description: Immediate Impaired Hallucinations: None Delusions: Not Present Thought Process: Goal Oriented Thought Content: positive for Goal Oriented Judgement: Fair Diagnostics Vital Signs (24Hr): Vital Signs - 24 hr 05/30/23 19:35 05/31/23 08:41 Temperature 97.6 F 97.8 F Pulse Rate 67 75 Respiratory Rate 18 16 Blood Pressure 114/65 126/77 Pulse Oximetry 95 94 Oxygen Delivery Method Room Air Room Air BMI result Body Mass Index 26.5 Labs 02/15/23 06:42 02/15/23 06:43 Medications Medications Current Medications Acetaminophen (Acetaminophen 325 Mg Tablet) 650 mg PO Q4H PRN PRN Reason: Fever Last Admin: 05/29/23 21:11 Dose: 650 mg Al Hydroxide/Mg Hydroxide (Magnesium Hydrox/Alum Hydrox 30 Ml Oral.Susp) 30 ml PO Q6H PRN PRN Reason: Heartburn/Nausea Artificial Tears (Artificial Tears 15 Ml Drops) 1 drop EYE-BOTH Q4H PRN PRN Reason: Dry Eyes Last Admin: 03/24/23 01:42 Dose: 1 drop Bisacodyl (Bisacodyl 5 Mg Tablet.) 10 mg PO DAILY PRN PRN Reason: Constipation Last Admin: 04/01/23 09:11 Dose: 10 mg Hydroxyzine HCl (Hydroxyzine Hcl 25 Mg Tablet) 25 mg PO Q6H PRN PRN Reason: Anxiety Last Admin: 05/29/23 21:13 Dose: 25 mg Lamotrigine (Lamotrigine 100 Mg Tablet) 100 mg PO BID [facility] Last Admin: 05/31/23 08:48 Dose: 100 mg Lidocaine (Lidocaine 4 % Patch Adh..Patch) 1 patch TRANSDERMA DAILY [facility]; Protocol Last Admin: 05/30/23 08:30 Dose: 1 patch Magnesium Hydroxide (Milk Of Magnesia 30 Ml Oral.Susp) 30 ml PO DAILY PRN PRN Reason: Constipation Last Admin: 05/02/23 11:03 Dose: 30 ml Memantine (Memantine Hcl 5 Mg Tablet) 5 mg PO BID [facility] Last Admin: 05/31/23 08:48 Dose: 5 mg Olanzapine (Olanzapine 2.5 Mg Tablet) 2.5 mg PO TID PRN PRN Reason: agitation Last Admin: 05/29/23 02:43 Dose: 2.5 mg Olanzapine (Olanzapine 7.5 Mg Tablet) 7.5 mg PO BEDTIME [facility] Last Admin: 05/30/23 21:18 Dose: 7.5 mg Polyethylene Glycol (Polyethylene Glycol 3350 17 Gm Powd.Pack) 17 gm PO DAILY [facility] Last Admin: 05/31/23 08:48 Dose: 17 gm Tramadol HCl (Tramadol Hcl 50 Mg Tablet) 50 mg PO Q6H PRN PRN Reason: Pain, Severe (Pain Scale 7-10) Last Admin: 05/31/23 08:48 Dose: 50 mg Trazodone HCl (Trazodone Hcl 100 Mg Tablet) 100 mg PO BEDTIME [facility] Last Admin: 05/30/23 21:18 Dose: 100 mg Allergies Allergies Allergy/AdvReac Type Severity Reaction Status Date / Time pollen extracts Allergy Unknown unknown Verified 04/21/22 14:56 latex Allergy Rash Verified 10/31/22 18:30 Assessment & Plan Assessment & Plan (1) Bipolar disorder, now depressed: Status: Acute Code(s): F31.30 - Bipolar disorder, current episode depressed, mild or moderate severity, unspecified Assessment and Plan: Continue with current regimen (2) Chronic back pain: Status: Acute Code(s): M54.9 - Dorsalgia, unspecified; G89.29 - Other chronic pain Assessment and Plan: No change in management (3) Dementia: Status: Acute Code(s): F03.90 - Unspecified dementia, unspecified severity, without behavioral disturbance, psychotic disturbance, mood disturbance, and anxiety Assessment and Plan: continue memantine Plan 82 year old male with history hyperlipidemia, tubular adenoma colon, BPH, chronic normocytic anemia, 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 05/31/23 Continue with treatment plan: 1. Continue with same treatment. 2. Waiting for placement Patient educated on: therapeutic strategies Informed Consent: understands Reason for continued inpatient stay Substantial Risk for: harm to self, inability to function and rapid decompensation Time Spent With Patient Time: Total time managing care of this patient today ____ minutes.
[2023-05-31 18:00] VITALS: BP 111/62; PULSE 65; RESP 18; TEMP 36.2; O2SAT 93
[2023-05-31] MEDS: OLANZapine 7.5 MG TABLET PO (21:07)
[2023-05-31] MEDS: traZODone HCL 100 MG TABLET PO (21:07)
[2023-06-01] MEDS: traMADoL HCL 50 MG TABLET PO (03:43)
[2023-06-01 09:00] VITALS: BP 114/59; PULSE 76; RESP 18; TEMP 36.3; O2SAT 96
[2023-06-01] MEDS: Memantine HCl 5 MG TABLET PO ×2 (09:12→20:27)
[2023-06-01] MEDS: Lidocaine 4 % Patch ADH..PATCH 1 PATCH TRANSDERMA (09:12)
[2023-06-01] MEDS: polyethylene glycoL 3350 17 GM POWD.PACK PO (09:12)
[2023-06-01] MEDS: lamoTRIgine 100 MG TABLET PO ×2 (09:16→20:27)
--- NOTE | 2023-06-01 14:12 | HO.PSYCHPN ---
Subjective Subjective Date of Service: 06/01/23 Reason For Visit: F31.9, F43.25 Subjective Notes: Conditional Voluntary Healthcare Proxy: No Guardianship: No Medical Problems Affecting Mental Status: Yes (dementia) Interim History: 83 yo annoyed that no one can take him to the movies- feels it would only take one radha- Medication Compliance: Yes Side effects from medications: No Attending Groups: Intermittent Review of Systems Acute medical concerns: No Medical Review of Systems: unchanged Mental Status Exam Mental Status Exam Narrative: speech clear, normal loudness, rate, amount. no complaints or concerns, no expressed SI/HI/AVH. Patient Appearance: Appropriate Patient Orientation: Person and Situation Level of Consciousness: Awake and Appropriate Patient Behavior: Guarded and Passive Mood Description: Withdrawn Affect Description: Constricted Patient Cognition Impaired: Yes Ability to Follow Directions: Good Speech Pattern: Clear Memory Description: Immediate Impaired Hallucinations: None Delusions: Not Present Thought Process: Goal Oriented Thought Content: positive for Goal Oriented Judgement: Fair Diagnostics Vital Signs (24Hr): Vital Signs - 24 hr 05/31/23 18:00 06/01/23 09:00 Temperature 97.1 F 97.3 F Pulse Rate 65 76 Respiratory Rate 18 18 Blood Pressure 111/62 114/59 L Pulse Oximetry 93 96 Oxygen Delivery Method Room Air Room Air BMI result Body Mass Index 26.5 Labs 02/15/23 06:42 02/15/23 06:43 Medications Medications Current Medications Acetaminophen (Acetaminophen 325 Mg Tablet) 650 mg PO Q4H PRN PRN Reason: Fever Last Admin: 05/29/23 21:11 Dose: 650 mg Al Hydroxide/Mg Hydroxide (Magnesium Hydrox/Alum Hydrox 30 Ml Oral.Susp) 30 ml PO Q6H PRN PRN Reason: Heartburn/Nausea Artificial Tears (Artificial Tears 15 Ml Drops) 1 drop EYE-BOTH Q4H PRN PRN Reason: Dry Eyes Last Admin: 03/24/23 01:42 Dose: 1 drop Bisacodyl (Bisacodyl 5 Mg Tablet.Dr) 10 mg PO DAILY PRN PRN Reason: Constipation Last Admin: 04/01/23 09:11 Dose: 10 mg Hydroxyzine HCl (Hydroxyzine Hcl 25 Mg Tablet) 25 mg PO Q6H PRN PRN Reason: Anxiety Last Admin: 05/29/23 21:13 Dose: 25 mg Lamotrigine (Lamotrigine 100 Mg Tablet) 100 mg PO BID [facility] Last Admin: 06/01/23 09:16 Dose: 100 mg Lidocaine (Lidocaine 4 % Patch Adh..Patch) 1 patch TRANSDERMA DAILY [facility]; Protocol Last Admin: 06/01/23 09:12 Dose: 1 patch Magnesium Hydroxide (Milk Of Magnesia 30 Ml Oral.Susp) 30 ml PO DAILY PRN PRN Reason: Constipation Last Admin: 05/02/23 11:03 Dose: 30 ml Memantine (Memantine Hcl 5 Mg Tablet) 5 mg PO BID [facility] Last Admin: 06/01/23 09:12 Dose: 5 mg Olanzapine (Olanzapine 2.5 Mg Tablet) 2.5 mg PO TID PRN PRN Reason: agitation Last Admin: 05/29/23 02:43 Dose: 2.5 mg Olanzapine (Olanzapine 7.5 Mg Tablet) 7.5 mg PO BEDTIME [facility] Last Admin: 05/31/23 21:07 Dose: 7.5 mg Polyethylene Glycol (Polyethylene Glycol 3350 17 Gm Powd.Pack) 17 gm PO DAILY [facility] Last Admin: 06/01/23 09:12 Dose: 17 gm Tramadol HCl (Tramadol Hcl 50 Mg Tablet) 50 mg PO Q6H PRN PRN Reason: Pain, Severe (Pain Scale 7-10) Last Admin: 06/01/23 03:43 Dose: 50 mg Trazodone HCl (Trazodone Hcl 100 Mg Tablet) 100 mg PO BEDTIME [facility] Last Admin: 05/31/23 21:07 Dose: 100 mg Allergies Allergies Allergy/AdvReac Type Severity Reaction Status Date / Time pollen extracts Allergy Unknown unknown Verified 04/21/22 14:56 latex Allergy Rash Verified 10/31/22 18:30 Assessment & Plan Assessment & Plan (1) Bipolar disorder, now depressed: Status: Acute Code(s): F31.30 - Bipolar disorder, current episode depressed, mild or moderate severity, unspecified Assessment and Plan: Continue with current regimen (2) Chronic back pain: Status: Acute Code(s): M54.9 - Dorsalgia, unspecified; G89.29 - Other chronic pain Assessment and Plan: No change in management (3) Dementia: Status: Acute Code(s): F03.90 - Unspecified dementia, unspecified severity, without behavioral disturbance, psychotic disturbance, mood disturbance, and anxiety Assessment and Plan: continue memantine Plan 82 year old male with history hyperlipidemia, tubular adenoma colon, BPH, chronic normocytic anemia, 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 05/31/23 Continue with treatment plan: 1. Continue with same treatment. 2. Waiting for placement 06/01/23 - [facility] Reason for continued inpatient stay Substantial Risk for: rapid decompensation Time Spent With Patient Time: Total time managing care of this patient today ____ minutes.
[2023-06-01 18:00] VITALS: BP 117/64; PULSE 70; RESP 18; TEMP 36.6; O2SAT 95
[2023-06-01] MEDS: OLANZapine 7.5 MG TABLET PO (20:27)
[2023-06-01] MEDS: traZODone HCL 100 MG TABLET PO (20:27)
[2023-06-02 08:38] VITALS: BP 153/86; PULSE 77; RESP 18; TEMP 36.9; O2SAT 95
[2023-06-02] MEDS: Memantine HCl 5 MG TABLET PO ×2 (08:42→21:30)
[2023-06-02] MEDS: lamoTRIgine 100 MG TABLET PO ×2 (08:42→21:30)
[2023-06-02] MEDS: Lidocaine 4 % Patch ADH..PATCH 1 PATCH TRANSDERMA (08:42)
[2023-06-02] MEDS: polyethylene glycoL 3350 17 GM POWD.PACK PO (08:42)
--- NOTE | 2023-06-02 11:13 | P.PNPSI_ITS ---
Subjective Subjective Date of Service: 06/02/23 Reason For Visit: F31.9, F43.25 Subjective Notes: Conditional Voluntary Interim History: 83 yo with dementia- annoyed that he can't get shower- when things are busy with unit and nursing too busy to give to him right now- sitting in chair with change of pants on his lap. Medication Compliance: Yes Side effects from medications: No Attending Groups: Intermittent Review of Systems Acute medical concerns: No Medical Review of Systems: unchanged Mental Status Exam Mental Status Exam Narrative: speech clear, normal loudness, rate, amount. no complaints or concerns, no expressed SI/HI/AVH. Patient Appearance: Appropriate Patient Orientation: Person and Situation Level of Consciousness: Awake and Appropriate Patient Behavior: Guarded and Passive Mood Description: Angry (annoyed/irritable) Affect Description: Constricted Patient Cognition Impaired: Yes Ability to Follow Directions: Good Speech Pattern: Clear Memory Description: Immediate Impaired Hallucinations: None Delusions: Not Present Thought Process: Goal Oriented Thought Content: positive for Goal Oriented Judgement: Fair Diagnostics Vital Signs (24Hr): Vital Signs - 24 hr 06/01/23 18:00 06/02/23 08:38 Temperature 98 F 98.4 F Pulse Rate 70 77 Respiratory Rate 18 18 Blood Pressure 117/64 153/86 H Pulse Oximetry 95 95 Oxygen Delivery Method Room Air Room Air BMI result Body Mass Index 26.5 Labs 02/15/23 06:42 02/15/23 06:43 Medications Medications Current Medications Acetaminophen (Acetaminophen 325 Mg Tablet) 650 mg PO Q4H PRN PRN Reason: Fever Last Admin: 05/29/23 21:11 Dose: 650 mg Al Hydroxide/Mg Hydroxide (Magnesium Hydrox/Alum Hydrox 30 Ml Oral.Susp) 30 ml PO Q6H PRN PRN Reason: Heartburn/Nausea Artificial Tears (Artificial Tears 15 Ml Drops) 1 drop EYE-BOTH Q4H PRN PRN Reason: Dry Eyes Last Admin: 03/24/23 01:42 Dose: 1 drop Bisacodyl (Bisacodyl 5 Mg Tablet.Dr) 10 mg PO DAILY PRN PRN Reason: Constipation Last Admin: 04/01/23 09:11 Dose: 10 mg Hydroxyzine HCl (Hydroxyzine Hcl 25 Mg Tablet) 25 mg PO Q6H PRN PRN Reason: Anxiety Last Admin: 05/29/23 21:13 Dose: 25 mg Lamotrigine (Lamotrigine 100 Mg Tablet) 100 mg PO BID [facility] Last Admin: 06/02/23 08:42 Dose: 100 mg Lidocaine (Lidocaine 4 % Patch Adh..Patch) 1 patch TRANSDERMA DAILY [facility]; Protocol Last Admin: 06/02/23 08:42 Dose: 1 patch Magnesium Hydroxide (Milk Of Magnesia 30 Ml Oral.Susp) 30 ml PO DAILY PRN PRN Reason: Constipation Last Admin: 05/02/23 11:03 Dose: 30 ml Memantine (Memantine Hcl 5 Mg Tablet) 5 mg PO BID [facility] Last Admin: 06/02/23 08:42 Dose: 5 mg Olanzapine (Olanzapine 2.5 Mg Tablet) 2.5 mg PO TID PRN PRN Reason: agitation Last Admin: 05/29/23 02:43 Dose: 2.5 mg Olanzapine (Olanzapine 7.5 Mg Tablet) 7.5 mg PO BEDTIME [facility] Last Admin: 06/01/23 20:27 Dose: 7.5 mg Polyethylene Glycol (Polyethylene Glycol 3350 17 Gm Powd.Pack) 17 gm PO DAILY [facility] Last Admin: 06/02/23 08:42 Dose: 17 gm Tramadol HCl (Tramadol Hcl 50 Mg Tablet) 50 mg PO Q6H PRN PRN Reason: Pain, Severe (Pain Scale 7-10) Last Admin: 06/01/23 03:43 Dose: 50 mg Trazodone HCl (Trazodone Hcl 100 Mg Tablet) 100 mg PO BEDTIME [facility] Last Admin: 06/01/23 20:27 Dose: 100 mg Allergies Allergies Allergy/AdvReac Type Severity Reaction Status Date / Time pollen extracts Allergy Unknown unknown Verified 04/21/22 14:56 latex Allergy Rash Verified 10/31/22 18:30 Assessment & Plan Assessment & Plan (1) Bipolar disorder, now depressed: Status: Acute Code(s): F31.30 - Bipolar disorder, current episode depressed, mild or moderate severity, unspecified Assessment and Plan: Continue with current regimen (2) Chronic back pain: Status: Acute Code(s): M54.9 - Dorsalgia, unspecified; G89.29 - Other chronic pain Assessment and Plan: No change in management (3) Dementia: Status: Acute Code(s): F03.90 - Unspecified dementia, unspecified severity, without behavioral disturbance, psychotic disturbance, mood disturbance, and anxiety Assessment and Plan: continue memantine Plan 82 year old male with history hyperlipidemia, tubular adenoma colon, BPH, chronic normocytic anemia, 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 05/31/23 Continue with treatment plan: 1. Continue with same treatment. 2. Waiting for placement 06/01/23 - CTP 06/02/23 waiting for placement , baseline Patient educated on: other Informed Consent: does not understand Reason for continued inpatient stay Substantial Risk for: rapid decompensation Time Spent With Patient Time: Total time managing care of this patient today ____ minutes.
[2023-06-02 18:00] VITALS: BP 115/77; PULSE 70; RESP 18; TEMP 36.4; O2SAT 95
[2023-06-02] MEDS: Acetaminophen 325 MG TABLET 650 MG PO (21:30)
[2023-06-02] MEDS: hydrOXYzine HCL 25 MG TABLET PO (21:30)
[2023-06-02] MEDS: OLANZapine 7.5 MG TABLET PO (21:30)
[2023-06-02] MEDS: traZODone HCL 100 MG TABLET PO (21:30)
[2023-06-03 08:40] VITALS: BP 112/59; PULSE 77; RESP 20; TEMP 36.4; O2SAT 95
[2023-06-03] MEDS: polyethylene glycoL 3350 17 GM POWD.PACK PO (08:48)
[2023-06-03] MEDS: Memantine HCl 5 MG TABLET PO ×2 (08:49→21:11)
[2023-06-03] MEDS: Lidocaine 4 % Patch ADH..PATCH 1 PATCH TRANSDERMA (08:49)
[2023-06-03] MEDS: lamoTRIgine 100 MG TABLET PO ×2 (08:49→21:11)
[2023-06-03] MEDS: traMADoL HCL 50 MG TABLET PO (10:00)
[2023-06-03] MEDS: OLANZapine 2.5 MG TABLET PO (10:02)
--- NOTE | 2023-06-03 14:10 | P.PNPSI_ITS ---
Subjective Subjective Date of Service: 06/03/23 Reason For Visit: F31.9, F43.25 Subjective Notes: Conditional Voluntary Interim History: The nursing staff reported no changes in his mental status confused but easily redirectable. The occupational therapist reported that he had been more participatory in the groups but confused. On interview the patient asked again about going back to her parents and explained him that the parents several years ago and he is technically homeless. No changes in mental status Mental Status Exam Mental Status Exam Patient Appearance: Appropriate Patient Orientation: Person and Situation Level of Consciousness: Awake and Appropriate Patient Behavior: Guarded and Passive Mood Description: Withdrawn Affect Description: Constricted Patient Cognition Impaired: Yes Ability to Follow Directions: Good Speech Pattern: Clear Hallucinations: None Delusions: Not Present Thought Process: Distracted and Slowed Thinking Thought Content: positive for [place] and positive for Poverty of Content Judgement: Fair Diagnostics Vital Signs (24Hr): Vital Signs - 24 hr 06/02/23 18:00 06/03/23 08:40 Temperature 97.5 F 97.5 F Pulse Rate 70 77 Respiratory Rate 18 20 Blood Pressure 115/77 112/59 L Pulse Oximetry 95 95 Oxygen Delivery Method Room Air Room Air BMI result Body Mass Index 26.5 Labs 02/15/23 06:42 02/15/23 06:43 Medications Medications Current Medications Acetaminophen (Acetaminophen 325 Mg Tablet) 650 mg PO Q4H PRN PRN Reason: Fever Last Admin: 06/02/23 21:30 Dose: 650 mg Al Hydroxide/Mg Hydroxide (Magnesium Hydrox/Alum Hydrox 30 Ml Oral.Susp) 30 ml PO Q6H PRN PRN Reason: Heartburn/Nausea Artificial Tears (Artificial Tears 15 Ml Drops) 1 drop EYE-BOTH Q4H PRN PRN Reason: Dry Eyes Last Admin: 03/24/23 01:42 Dose: 1 drop Bisacodyl (Bisacodyl 5 Mg Tablet.Dr) 10 mg PO DAILY PRN PRN Reason: Constipation Last Admin: 04/01/23 09:11 Dose: 10 mg Hydroxyzine HCl (Hydroxyzine Hcl 25 Mg Tablet) 25 mg PO Q6H PRN PRN Reason: Anxiety Last Admin: 06/02/23 21:30 Dose: 25 mg Lamotrigine (Lamotrigine 100 Mg Tablet) 100 mg PO BID [facility] Last Admin: 06/03/23 08:49 Dose: 100 mg Lidocaine (Lidocaine 4 % Patch Adh..Patch) 1 patch TRANSDERMA DAILY [facility]; Protocol Last Admin: 06/03/23 08:49 Dose: 1 patch Magnesium Hydroxide (Milk Of Magnesia 30 Ml Oral.Susp) 30 ml PO DAILY PRN PRN Reason: Constipation Last Admin: 05/02/23 11:03 Dose: 30 ml Memantine (Memantine Hcl 5 Mg Tablet) 5 mg PO BID [facility] Last Admin: 06/03/23 08:49 Dose: 5 mg Olanzapine (Olanzapine 2.5 Mg Tablet) 2.5 mg PO TID PRN PRN Reason: agitation Last Admin: 06/03/23 10:02 Dose: 2.5 mg Olanzapine (Olanzapine 7.5 Mg Tablet) 7.5 mg PO BEDTIME [facility] Last Admin: 06/02/23 21:30 Dose: 7.5 mg Polyethylene Glycol (Polyethylene Glycol 3350 17 Gm Powd.Pack) 17 gm PO DAILY [facility] Last Admin: 06/03/23 08:48 Dose: 17 gm Tramadol HCl (Tramadol Hcl 50 Mg Tablet) 50 mg PO Q6H PRN PRN Reason: Pain, Severe (Pain Scale 7-10) Last Admin: 06/03/23 10:00 Dose: 50 mg Trazodone HCl (Trazodone Hcl 100 Mg Tablet) 100 mg PO BEDTIME [facility] Last Admin: 06/02/23 21:30 Dose: 100 mg Allergies Allergies Allergy/AdvReac Type Severity Reaction Status Date / Time pollen extracts Allergy Unknown unknown Verified 04/21/22 14:56 latex Allergy Rash Verified 10/31/22 18:30 Assessment & Plan Assessment & Plan (1) Bipolar disorder, now depressed: Status: Acute Code(s): F31.30 - Bipolar disorder, current episode depressed, mild or moderate severity, unspecified Assessment and Plan: Continue with current regimen (2) Chronic back pain: Status: Acute Code(s): M54.9 - Dorsalgia, unspecified; G89.29 - Other chronic pain Assessment and Plan: No change in management (3) Dementia: Status: Acute Code(s): F03.90 - Unspecified dementia, unspecified severity, without behavioral disturbance, psychotic disturbance, mood disturbance, and anxiety Assessment and Plan: continue memantine Plan 82 year old male with history hyperlipidemia, tubular adenoma colon, BPH, chronic normocytic anemia, 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 05/31/23 Continue with treatment plan: 1. Continue with same treatment. 2. Waiting for placement 06/01/23 - CTP 06/02/23 waiting for placement , baseline Reason for continued inpatient stay Substantial Risk for: inability to function, rapid decompensation and med/psych decompensation Time Spent With Patient Time: Total time managing care of this patient today __20__ minutes.
[2023-06-03 18:00] VITALS: BP 135/65; PULSE 76; RESP 18; TEMP 37; O2SAT 95
[2023-06-03] MEDS: Acetaminophen 325 MG TABLET 650 MG PO (21:11)
[2023-06-03] MEDS: OLANZapine 7.5 MG TABLET PO (21:11)
[2023-06-03] MEDS: traZODone HCL 100 MG TABLET PO (21:11)
[2023-06-03] MEDS: hydrOXYzine HCL 25 MG TABLET PO (21:11)
[2023-06-04] MEDS: OLANZapine 2.5 MG TABLET PO (01:54)
[2023-06-04] MEDS: traMADoL HCL 50 MG TABLET PO (01:54)
[2023-06-04 08:13] VITALS: BP 112/76; PULSE 72; RESP 14; TEMP 36.8; O2SAT 95
--- NOTE | 2023-06-04 08:30 | HO.PSYCHPN ---
Subjective Subjective Date of Service: 06/04/23 Reason For Visit: F31.9, F43.25 Subjective Notes: Conditional Voluntary Interim History: The nursing staff reported the patient remains pleasantly confused, easily redirectable compliant with treatment. On interview the patient denies new symptoms he wants to go home back to his parents but I explained him again that his parents several years ago and he is technically homeless. Waiting for placement. Mental Status Exam Mental Status Exam Patient Appearance: Appropriate Patient Orientation: Person Level of Consciousness: Awake Patient Behavior: Guarded and Passive Mood Description: Withdrawn Affect Description: Constricted Patient Cognition Impaired: Yes Ability to Follow Directions: Good Speech Pattern: Clear Hallucinations: None Delusions: Not Present Thought Process: Illogical and Slowed Thinking Thought Content: positive for [place] and positive for Perseveration Judgement: Poor Diagnostics Vital Signs (24Hr): Vital Signs - 24 hr 06/03/23 08:40 06/03/23 18:00 06/04/23 08:13 Temperature 97.5 F 98.6 F 98.3 F Pulse Rate 77 76 72 Respiratory Rate 20 18 14 Blood Pressure 112/59 L 135/65 112/76 Pulse Oximetry 95 95 95 Oxygen Delivery Method Room Air Room Air Room Air BMI result Body Mass Index 26.5 Labs 02/15/23 06:42 02/15/23 06:43 Medications Medications Current Medications Acetaminophen (Acetaminophen 325 Mg Tablet) 650 mg PO Q4H PRN PRN Reason: Fever Last Admin: 06/03/23 21:11 Dose: 650 mg Al Hydroxide/Mg Hydroxide (Magnesium Hydrox/Alum Hydrox 30 Ml Oral.Susp) 30 ml PO Q6H PRN PRN Reason: Heartburn/Nausea Artificial Tears (Artificial Tears 15 Ml Drops) 1 drop EYE-BOTH Q4H PRN PRN Reason: Dry Eyes Last Admin: 03/24/23 01:42 Dose: 1 drop Bisacodyl (Bisacodyl 5 Mg Tablet.Dr) 10 mg PO DAILY PRN PRN Reason: Constipation Last Admin: 04/01/23 09:11 Dose: 10 mg Hydroxyzine HCl (Hydroxyzine Hcl 25 Mg Tablet) 25 mg PO Q6H PRN PRN Reason: Anxiety Last Admin: 06/03/23 21:11 Dose: 25 mg Lamotrigine (Lamotrigine 100 Mg Tablet) 100 mg PO BID [facility] Last Admin: 06/03/23 21:11 Dose: 100 mg Lidocaine (Lidocaine 4 % Patch Adh..Patch) 1 patch TRANSDERMA DAILY [facility]; Protocol Last Admin: 06/03/23 08:49 Dose: 1 patch Magnesium Hydroxide (Milk Of Magnesia 30 Ml Oral.Susp) 30 ml PO DAILY PRN PRN Reason: Constipation Last Admin: 05/02/23 11:03 Dose: 30 ml Memantine (Memantine Hcl 5 Mg Tablet) 5 mg PO BID [facility] Last Admin: 06/03/23 21:11 Dose: 5 mg Olanzapine (Olanzapine 2.5 Mg Tablet) 2.5 mg PO TID PRN PRN Reason: agitation Last Admin: 06/04/23 01:54 Dose: 2.5 mg Olanzapine (Olanzapine 7.5 Mg Tablet) 7.5 mg PO BEDTIME [facility] Last Admin: 06/03/23 21:11 Dose: 7.5 mg Polyethylene Glycol (Polyethylene Glycol 3350 17 Gm Powd.Pack) 17 gm PO DAILY [facility] Last Admin: 06/03/23 08:48 Dose: 17 gm Tramadol HCl (Tramadol Hcl 50 Mg Tablet) 50 mg PO Q6H PRN PRN Reason: Pain, Severe (Pain Scale 7-10) Last Admin: 06/04/23 01:54 Dose: 50 mg Trazodone HCl (Trazodone Hcl 100 Mg Tablet) 100 mg PO BEDTIME [facility] Last Admin: 06/03/23 21:11 Dose: 100 mg Allergies Allergies Allergy/AdvReac Type Severity Reaction Status Date / Time pollen extracts Allergy Unknown unknown Verified 04/21/22 14:56 latex Allergy Rash Verified 10/31/22 18:30 Assessment & Plan Assessment & Plan (1) Bipolar disorder, now depressed: Status: Acute Code(s): F31.30 - Bipolar disorder, current episode depressed, mild or moderate severity, unspecified Assessment and Plan: Continue with current regimen (2) Chronic back pain: Status: Acute Code(s): M54.9 - Dorsalgia, unspecified; G89.29 - Other chronic pain Assessment and Plan: No change in management (3) Dementia: Status: Acute Code(s): F03.90 - Unspecified dementia, unspecified severity, without behavioral disturbance, psychotic disturbance, mood disturbance, and anxiety Assessment and Plan: continue memantine Plan 82 year old male with history hyperlipidemia, tubular adenoma colon, BPH, chronic normocytic anemia, 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 05/31/23 Continue with treatment plan: 1. Continue with same treatment. 2. Waiting for placement 06/01/23 - CTP 06/02/23 waiting for placement , baseline Reason for continued inpatient stay Substantial Risk for: inability to function, rapid decompensation and med/psych decompensation Time Spent With Patient Time: Total time managing care of this patient today __20__ minutes.
[2023-06-04] MEDS: Lidocaine 4 % Patch ADH..PATCH 1 PATCH TRANSDERMA (08:42)
[2023-06-04] MEDS: lamoTRIgine 100 MG TABLET PO ×2 (08:42→21:16)
[2023-06-04] MEDS: Memantine HCl 5 MG TABLET PO ×2 (08:42→21:16)
[2023-06-04] MEDS: polyethylene glycoL 3350 17 GM POWD.PACK PO (08:42)
[2023-06-04 18:00] VITALS: BP 106/60; PULSE 67; RESP 16; TEMP 36.2; O2SAT 95
[2023-06-04] MEDS: OLANZapine 7.5 MG TABLET PO (21:16)
[2023-06-04] MEDS: traZODone HCL 100 MG TABLET PO (21:16)
[2023-06-05] MEDS: traMADoL HCL 50 MG TABLET PO ×2 (00:24→20:33)
[2023-06-05] MEDS: hydrOXYzine HCL 25 MG TABLET PO (00:24)
[2023-06-05 08:30] VITALS: BP 121/67; PULSE 78; RESP 18; TEMP 36.7; O2SAT 98
[2023-06-05] MEDS: lamoTRIgine 100 MG TABLET PO ×2 (08:39→20:33)
[2023-06-05] MEDS: Lidocaine 4 % Patch ADH..PATCH 1 PATCH TRANSDERMA (08:39)
[2023-06-05] MEDS: Memantine HCl 5 MG TABLET PO ×2 (08:39→20:33)
[2023-06-05] MEDS: polyethylene glycoL 3350 17 GM POWD.PACK PO (08:39)
--- NOTE | 2023-06-05 14:23 | P.PNPSI_ITS ---
Subjective Subjective Date of Service: 06/05/23 Reason For Visit: F31.9, F43.25 Subjective Notes: Conditional Voluntary Interim History: The nursing staff reported no changes in his mental status cooperative and pleasant. Very confused and easily redirectable. Waiting for placement. Mental Status Exam Mental Status Exam Patient Appearance: Appropriate Patient Orientation: Person and Situation Level of Consciousness: Awake and Appropriate Patient Behavior: Guarded and Passive Mood Description: Withdrawn Affect Description: Constricted Patient Cognition Impaired: Yes Ability to Follow Directions: Good Speech Pattern: Clear Hallucinations: None Delusions: Not Present Thought Process: Distracted and Slowed Thinking Thought Content: positive for [place], positive for Perseveration and positive for Thought Blocking Judgement: Poor Diagnostics Vital Signs (24Hr): Vital Signs - 24 hr 06/04/23 18:00 06/05/23 08:30 Temperature 97.1 F 98.1 F Pulse Rate 67 78 Respiratory Rate 16 18 Blood Pressure 106/60 121/67 Pulse Oximetry 95 98 Oxygen Delivery Method Room Air Room Air BMI result Body Mass Index 26.5 Labs 02/15/23 06:42 02/15/23 06:43 Medications Medications Current Medications Acetaminophen (Acetaminophen 325 Mg Tablet) 650 mg PO Q4H PRN PRN Reason: Fever Last Admin: 06/03/23 21:11 Dose: 650 mg Al Hydroxide/Mg Hydroxide (Magnesium Hydrox/Alum Hydrox 30 Ml Oral.Susp) 30 ml PO Q6H PRN PRN Reason: Heartburn/Nausea Artificial Tears (Artificial Tears 15 Ml Drops) 1 drop EYE-BOTH Q4H PRN PRN Reason: Dry Eyes Last Admin: 03/24/23 01:42 Dose: 1 drop Bisacodyl (Bisacodyl 5 Mg Tablet.Dr) 10 mg PO DAILY PRN PRN Reason: Constipation Last Admin: 04/01/23 09:11 Dose: 10 mg Hydroxyzine HCl (Hydroxyzine Hcl 25 Mg Tablet) 25 mg PO Q6H PRN PRN Reason: Anxiety Last Admin: 06/05/23 00:24 Dose: 25 mg Lamotrigine (Lamotrigine 100 Mg Tablet) 100 mg PO BID [facility] Last Admin: 06/05/23 08:39 Dose: 100 mg Lidocaine (Lidocaine 4 % Patch Adh..Patch) 1 patch TRANSDERMA DAILY [facility]; Protocol Last Admin: 06/05/23 08:39 Dose: 1 patch Magnesium Hydroxide (Milk Of Magnesia 30 Ml Oral.Susp) 30 ml PO DAILY PRN PRN Reason: Constipation Last Admin: 05/02/23 11:03 Dose: 30 ml Memantine (Memantine Hcl 5 Mg Tablet) 5 mg PO BID [facility] Last Admin: 06/05/23 08:39 Dose: 5 mg Olanzapine (Olanzapine 2.5 Mg Tablet) 2.5 mg PO TID PRN PRN Reason: agitation Last Admin: 06/04/23 01:54 Dose: 2.5 mg Olanzapine (Olanzapine 7.5 Mg Tablet) 7.5 mg PO BEDTIME [facility] Last Admin: 06/04/23 21:16 Dose: 7.5 mg Polyethylene Glycol (Polyethylene Glycol 3350 17 Gm Powd.Pack) 17 gm PO DAILY [facility] Last Admin: 06/05/23 08:39 Dose: 17 gm Tramadol HCl (Tramadol Hcl 50 Mg Tablet) 50 mg PO Q6H PRN PRN Reason: Pain, Severe (Pain Scale 7-10) Last Admin: 06/05/23 00:24 Dose: 50 mg Trazodone HCl (Trazodone Hcl 100 Mg Tablet) 100 mg PO BEDTIME [facility] Last Admin: 06/04/23 21:16 Dose: 100 mg Allergies Allergies Allergy/AdvReac Type Severity Reaction Status Date / Time pollen extracts Allergy Unknown unknown Verified 04/21/22 14:56 latex Allergy Rash Verified 10/31/22 18:30 Assessment & Plan Assessment & Plan (1) Bipolar disorder, now depressed: Status: Acute Code(s): F31.30 - Bipolar disorder, current episode depressed, mild or moderate severity, unspecified Assessment and Plan: Continue with current regimen (2) Chronic back pain: Status: Acute Code(s): M54.9 - Dorsalgia, unspecified; G89.29 - Other chronic pain Assessment and Plan: No change in management (3) Dementia: Status: Acute Code(s): F03.90 - Unspecified dementia, unspecified severity, without behavioral disturbance, psychotic disturbance, mood disturbance, and anxiety Assessment and Plan: continue memantine Plan 82 year old male with history hyperlipidemia, tubular adenoma colon, BPH, chronic normocytic anemia, 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 05/31/23 Continue with treatment plan: 1. Continue with same treatment. 2. Waiting for placement Reason for continued inpatient stay Substantial Risk for: inability to function, rapid decompensation and med/psych decompensation Time Spent With Patient Time: Total time managing care of this patient today __20__ minutes.
[2023-06-05 18:00] VITALS: BP 131/63; PULSE 67; RESP 16; TEMP 36.2; O2SAT 94
[2023-06-05] MEDS: traZODone HCL 100 MG TABLET PO (20:33)
[2023-06-05] MEDS: OLANZapine 7.5 MG TABLET PO (20:33)
[2023-06-06 07:00] VITALS: BMI 27.4
[2023-06-06 08:00] VITALS: BP 120/68; PULSE 72; RESP 18; TEMP 36.6; O2SAT 93
[2023-06-06] MEDS: Lidocaine 4 % Patch ADH..PATCH 1 PATCH TRANSDERMA (09:10)
[2023-06-06] MEDS: polyethylene glycoL 3350 17 GM POWD.PACK PO (09:10)
[2023-06-06] MEDS: lamoTRIgine 100 MG TABLET PO ×2 (09:10→21:56)
[2023-06-06] MEDS: Memantine HCl 5 MG TABLET PO ×2 (09:10→21:56)
--- NOTE | 2023-06-06 15:44 | HO.PSYCHPN ---
Subjective Subjective Date of Service: 06/06/23 Reason For Visit: F31.9, F43.25 Subjective Notes: Conditional Voluntary Interim History: The nursing staff reported the patient had been compliant with treatment, pleasant no changes in his mental state. On interview the patient reported that he wants to leave but he has not aware that he is homeless and again I explained him that we are waiting for placement. He agreed to stay until he finds placement very confused. Mental Status Exam Mental Status Exam Patient Appearance: Appropriate Patient Orientation: Person Level of Consciousness: Awake Patient Behavior: Guarded and Passive Mood Description: Withdrawn Affect Description: Constricted Patient Cognition Impaired: Yes Ability to Follow Directions: Fair Speech Pattern: Clear Hallucinations: None Delusions: Not Present Thought Process: Distracted and Slowed Thinking Thought Content: positive for [place] and positive for Poverty of Content Judgement: Poor Diagnostics Vital Signs (24Hr): Vital Signs - 24 hr 06/05/23 18:00 06/06/23 08:00 Temperature 97.2 F 97.9 F Pulse Rate 67 72 Respiratory Rate 16 18 Blood Pressure 131/63 120/68 Pulse Oximetry 94 93 Oxygen Delivery Method Room Air Room Air BMI result Body Mass Index 27.4 Labs 02/15/23 06:42 02/15/23 06:43 Medications Medications Current Medications Acetaminophen (Acetaminophen 325 Mg Tablet) 650 mg PO Q4H PRN PRN Reason: Fever Last Admin: 06/03/23 21:11 Dose: 650 mg Al Hydroxide/Mg Hydroxide (Magnesium Hydrox/Alum Hydrox 30 Ml Oral.Susp) 30 ml PO Q6H PRN PRN Reason: Heartburn/Nausea Artificial Tears (Artificial Tears 15 Ml Drops) 1 drop EYE-BOTH Q4H PRN PRN Reason: Dry Eyes Last Admin: 03/24/23 01:42 Dose: 1 drop Bisacodyl (Bisacodyl 5 Mg Tablet.Dr) 10 mg PO DAILY PRN PRN Reason: Constipation Last Admin: 04/01/23 09:11 Dose: 10 mg Hydroxyzine HCl (Hydroxyzine Hcl 25 Mg Tablet) 25 mg PO Q6H PRN PRN Reason: Anxiety Last Admin: 06/05/23 00:24 Dose: 25 mg Lamotrigine (Lamotrigine 100 Mg Tablet) 100 mg PO BID [facility] Last Admin: 06/06/23 09:10 Dose: 100 mg Lidocaine (Lidocaine 4 % Patch Adh..Patch) 1 patch TRANSDERMA DAILY [facility]; Protocol Last Admin: 06/06/23 09:10 Dose: 1 patch Magnesium Hydroxide (Milk Of Magnesia 30 Ml Oral.Susp) 30 ml PO DAILY PRN PRN Reason: Constipation Last Admin: 05/02/23 11:03 Dose: 30 ml Memantine (Memantine Hcl 5 Mg Tablet) 5 mg PO BID [facility] Last Admin: 06/06/23 09:10 Dose: 5 mg Olanzapine (Olanzapine 2.5 Mg Tablet) 2.5 mg PO TID PRN PRN Reason: agitation Last Admin: 06/04/23 01:54 Dose: 2.5 mg Olanzapine (Olanzapine 7.5 Mg Tablet) 7.5 mg PO BEDTIME [facility] Last Admin: 06/05/23 20:33 Dose: 7.5 mg Polyethylene Glycol (Polyethylene Glycol 3350 17 Gm Powd.Pack) 17 gm PO DAILY [facility] Last Admin: 06/06/23 09:10 Dose: 17 gm Tramadol HCl (Tramadol Hcl 50 Mg Tablet) 50 mg PO Q6H PRN PRN Reason: Pain, Severe (Pain Scale 7-10) Last Admin: 06/05/23 20:33 Dose: 50 mg Trazodone HCl (Trazodone Hcl 100 Mg Tablet) 100 mg PO BEDTIME [facility] Last Admin: 06/05/23 20:33 Dose: 100 mg Allergies Allergies Allergy/AdvReac Type Severity Reaction Status Date / Time pollen extracts Allergy Unknown unknown Verified 04/21/22 14:56 latex Allergy Rash Verified 10/31/22 18:30 Assessment & Plan Assessment & Plan (1) Bipolar disorder, now depressed: Status: Acute Code(s): F31.30 - Bipolar disorder, current episode depressed, mild or moderate severity, unspecified Assessment and Plan: Continue with current regimen (2) Chronic back pain: Status: Acute Code(s): M54.9 - Dorsalgia, unspecified; G89.29 - Other chronic pain Assessment and Plan: No change in management (3) Dementia: Status: Acute Code(s): F03.90 - Unspecified dementia, unspecified severity, without behavioral disturbance, psychotic disturbance, mood disturbance, and anxiety Assessment and Plan: continue memantine Plan 82 year old male with history hyperlipidemia, tubular adenoma colon, BPH, chronic normocytic anemia, 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 05/31/23 Continue with treatment plan: 1. Continue with same treatment. 2. Waiting for placement Reason for continued inpatient stay Substantial Risk for: inability to function, rapid decompensation and med/psych decompensation Time Spent With Patient Time: Total time managing care of this patient today __20__ minutes.
[2023-06-06 19:53] VITALS: BP 109/63; PULSE 78; RESP 18; TEMP 36.8; O2SAT 95
[2023-06-06] MEDS: traZODone HCL 100 MG TABLET PO (21:56)
[2023-06-06] MEDS: OLANZapine 7.5 MG TABLET PO (21:56)
[2023-06-07 08:05] VITALS: BP 106/53; PULSE 66; RESP 18; TEMP 36.2; O2SAT 95
[2023-06-07] MEDS: Lidocaine 4 % Patch ADH..PATCH 1 PATCH TRANSDERMA (09:01)
[2023-06-07] MEDS: polyethylene glycoL 3350 17 GM POWD.PACK PO (09:02)
[2023-06-07] MEDS: lamoTRIgine 100 MG TABLET PO ×2 (09:02→21:01)
[2023-06-07] MEDS: traMADoL HCL 50 MG TABLET PO (09:02)
[2023-06-07] MEDS: Memantine HCl 5 MG TABLET PO ×2 (09:02→21:01)
--- NOTE | 2023-06-07 13:55 | HO.PSYCHPN ---
Subjective Subjective Date of Service: 06/07/23 Reason For Visit: F31.9, F43.25 Subjective Notes: Conditional Voluntary Interim History: The nursing staff reported the patient had been compliant with treatment, pleasant no changes in his mental state. Pt awaiting placement complex issues . Mental Status Exam Mental Status Exam Mood Description: Labile and Apprehensive Affect Description: Suspicious Speech Pattern: Poor Articulation Diagnostics Vital Signs (24Hr): Vital Signs - 24 hr 06/06/23 19:53 06/07/23 08:05 Temperature 98.3 F 97.2 F Pulse Rate 78 66 Respiratory Rate 18 18 Blood Pressure 109/63 106/53 L Pulse Oximetry 95 95 Oxygen Delivery Method Room Air Room Air BMI result Body Mass Index 27.4 Labs 02/15/23 06:42 02/15/23 06:43 Medications Medications Current Medications Acetaminophen (Acetaminophen 325 Mg Tablet) 650 mg PO Q4H PRN PRN Reason: Fever Last Admin: 06/03/23 21:11 Dose: 650 mg Al Hydroxide/Mg Hydroxide (Magnesium Hydrox/Alum Hydrox 30 Ml Oral.Susp) 30 ml PO Q6H PRN PRN Reason: Heartburn/Nausea Artificial Tears (Artificial Tears 15 Ml Drops) 1 drop EYE-BOTH Q4H PRN PRN Reason: Dry Eyes Last Admin: 03/24/23 01:42 Dose: 1 drop Bisacodyl (Bisacodyl 5 Mg Tablet.Dr) 10 mg PO DAILY PRN PRN Reason: Constipation Last Admin: 04/01/23 09:11 Dose: 10 mg Hydroxyzine HCl (Hydroxyzine Hcl 25 Mg Tablet) 25 mg PO Q6H PRN PRN Reason: Anxiety Last Admin: 06/05/23 00:24 Dose: 25 mg Lamotrigine (Lamotrigine 100 Mg Tablet) 100 mg PO BID [facility] Last Admin: 06/07/23 09:02 Dose: 100 mg Lidocaine (Lidocaine 4 % Patch Adh..Patch) 1 patch TRANSDERMA DAILY [facility]; Protocol Last Admin: 06/07/23 09:01 Dose: 1 patch Magnesium Hydroxide (Milk Of Magnesia 30 Ml Oral.Susp) 30 ml PO DAILY PRN PRN Reason: Constipation Last Admin: 05/02/23 11:03 Dose: 30 ml Memantine (Memantine Hcl 5 Mg Tablet) 5 mg PO BID [facility] Last Admin: 06/07/23 09:02 Dose: 5 mg Olanzapine (Olanzapine 2.5 Mg Tablet) 2.5 mg PO TID PRN PRN Reason: agitation Last Admin: 06/04/23 01:54 Dose: 2.5 mg Olanzapine (Olanzapine 7.5 Mg Tablet) 7.5 mg PO BEDTIME [facility] Last Admin: 06/06/23 21:56 Dose: 7.5 mg Polyethylene Glycol (Polyethylene Glycol 3350 17 Gm Powd.Pack) 17 gm PO DAILY [facility] Last Admin: 06/07/23 09:02 Dose: 17 gm Tramadol HCl (Tramadol Hcl 50 Mg Tablet) 50 mg PO Q6H PRN PRN Reason: Pain, Severe (Pain Scale 7-10) Last Admin: 06/07/23 09:02 Dose: 50 mg Trazodone HCl (Trazodone Hcl 100 Mg Tablet) 100 mg PO BEDTIME [facility] Last Admin: 06/06/23 21:56 Dose: 100 mg Allergies Allergies Allergy/AdvReac Type Severity Reaction Status Date / Time pollen extracts Allergy Unknown unknown Verified 04/21/22 14:56 latex Allergy Rash Verified 10/31/22 18:30 Assessment & Plan Assessment & Plan (1) Bipolar disorder, now depressed: Status: Acute Code(s): F31.30 - Bipolar disorder, current episode depressed, mild or moderate severity, unspecified Assessment and Plan: Continue with current regimen (2) Chronic back pain: Status: Acute Code(s): M54.9 - Dorsalgia, unspecified; G89.29 - Other chronic pain Assessment and Plan: No change in management (3) Dementia: Status: Acute Code(s): F03.90 - Unspecified dementia, unspecified severity, without behavioral disturbance, psychotic disturbance, mood disturbance, and anxiety Assessment and Plan: continue memantine Plan 82 year old male with history hyperlipidemia, tubular adenoma colon, BPH, chronic normocytic anemia, 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 05/31/23 Continue with treatment plan: 1. Continue with same treatment. 2. Waiting for placement 06/07/23 cont plan of care d/c planning Reason for continued inpatient stay Substantial Risk for: inability to function and rapid decompensation Time Spent With Patient Time: Total time managing care of this patient today ____ minutes.
[2023-06-07 18:00] VITALS: BP 111/55; PULSE 69; RESP 18; TEMP 36.2; O2SAT 95
[2023-06-07] MEDS: hydrOXYzine HCL 25 MG TABLET PO (21:01)
[2023-06-07] MEDS: OLANZapine 7.5 MG TABLET PO (21:01)
[2023-06-07] MEDS: traZODone HCL 100 MG TABLET PO (21:01)
[2023-06-07] MEDS: Acetaminophen 325 MG TABLET 650 MG PO (21:01)
[2023-06-08 08:45] VITALS: BP 121/68; PULSE 70; RESP 16; TEMP 36.8; O2SAT 93
[2023-06-08] MEDS: Memantine HCl 5 MG TABLET PO ×2 (09:07→20:50)
[2023-06-08] MEDS: polyethylene glycoL 3350 17 GM POWD.PACK PO (09:07)
[2023-06-08] MEDS: lamoTRIgine 100 MG TABLET PO ×2 (09:07→20:50)
--- NOTE | 2023-06-08 10:51 | HO.PSYCHPN ---
Subjective Subjective Date of Service: 06/08/23 Reason For Visit: bipolar disorder Subjective Notes: Conditional Voluntary Interim History: met with patient. Discussed with Nursing. Slept well last night. Eating and drinking. Accepting medications. Has been irritable this morning. Today reports that he has been here for a number of years. Reports her has good and bad but that he wants discharge and that people have taken his life from him. no changes to well-established cognitive impairment and associated disorganized behavior. Medication Compliance: Yes Side effects from medications: No Attending Groups: No Review of Systems Review of Systems Unremarkable Mental Status Exam Mental Status Exam Narrative: hospital clothing. Irritable at times. Disorganized behavior consistent with dementia. No SI or HI evident. Intermittent paranoia. Insight and judgment poor Diagnostics Vital Signs (24Hr): Vital Signs - 24 hr 06/07/23 18:00 06/08/23 08:45 Temperature 97.1 F 98.3 F Pulse Rate 69 70 Respiratory Rate 18 16 Blood Pressure 111/55 L 121/68 Pulse Oximetry 95 93 Oxygen Delivery Method Room Air Nasal Cannula BMI result Body Mass Index 27.4 Labs 02/15/23 06:42 02/15/23 06:43 Medications Medications Current Medications Acetaminophen (Acetaminophen 325 Mg Tablet) 650 mg PO Q4H PRN PRN Reason: Fever Last Admin: 06/07/23 21:01 Dose: 650 mg Al Hydroxide/Mg Hydroxide (Magnesium Hydrox/Alum Hydrox 30 Ml Oral.Susp) 30 ml PO Q6H PRN PRN Reason: Heartburn/Nausea Artificial Tears (Artificial Tears 15 Ml Drops) 1 drop EYE-BOTH Q4H PRN PRN Reason: Dry Eyes Last Admin: 03/24/23 01:42 Dose: 1 drop Bisacodyl (Bisacodyl 5 Mg Tablet.Dr) 10 mg PO DAILY PRN PRN Reason: Constipation Last Admin: 04/01/23 09:11 Dose: 10 mg Hydroxyzine HCl (Hydroxyzine Hcl 25 Mg Tablet) 25 mg PO Q6H PRN PRN Reason: Anxiety Last Admin: 06/07/23 21:01 Dose: 25 mg Lamotrigine (Lamotrigine 100 Mg Tablet) 100 mg PO BID [facility] Last Admin: 06/08/23 09:07 Dose: 100 mg Lidocaine (Lidocaine 4 % Patch Adh..Patch) 1 patch TRANSDERMA DAILY [facility]; Protocol Last Admin: 06/08/23 09:37 Dose: Not Given Magnesium Hydroxide (Milk Of Magnesia 30 Ml Oral.Susp) 30 ml PO DAILY PRN PRN Reason: Constipation Last Admin: 05/02/23 11:03 Dose: 30 ml Memantine (Memantine Hcl 5 Mg Tablet) 5 mg PO BID [facility] Last Admin: 06/08/23 09:07 Dose: 5 mg Olanzapine (Olanzapine 2.5 Mg Tablet) 2.5 mg PO TID PRN PRN Reason: agitation Last Admin: 06/04/23 01:54 Dose: 2.5 mg Olanzapine (Olanzapine 7.5 Mg Tablet) 7.5 mg PO BEDTIME [facility] Last Admin: 06/07/23 21:01 Dose: 7.5 mg Polyethylene Glycol (Polyethylene Glycol 3350 17 Gm Powd.Pack) 17 gm PO DAILY [facility] Last Admin: 06/08/23 09:07 Dose: 17 gm Tramadol HCl (Tramadol Hcl 50 Mg Tablet) 50 mg PO Q6H PRN PRN Reason: Pain, Severe (Pain Scale 7-10) Last Admin: 06/07/23 09:02 Dose: 50 mg Trazodone HCl (Trazodone Hcl 100 Mg Tablet) 100 mg PO BEDTIME [facility] Last Admin: 06/07/23 21:01 Dose: 100 mg Allergies Allergies Allergy/AdvReac Type Severity Reaction Status Date / Time pollen extracts Allergy Unknown unknown Verified 04/21/22 14:56 latex Allergy Rash Verified 10/31/22 18:30 Assessment & Plan Assessment & Plan (1) Bipolar disorder, now depressed: Status: Acute Code(s): F31.30 - Bipolar disorder, current episode depressed, mild or moderate severity, unspecified Assessment and Plan: Continue with current regimen (2) Chronic back pain: Status: Acute Code(s): M54.9 - Dorsalgia, unspecified; G89.29 - Other chronic pain Assessment and Plan: No change in management (3) Dementia: Status: Acute Code(s): F03.90 - Unspecified dementia, unspecified severity, without behavioral disturbance, psychotic disturbance, mood disturbance, and anxiety Assessment and Plan: continue memantine Plan 82 year old male with history hyperlipidemia, tubular adenoma colon, BPH, chronic normocytic anemia, 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 05/31/23 Continue with treatment plan: 1. Continue with same treatment. 2. Waiting for placement 06/07/23 cont plan of care d/c planning 06/08/2023: No changes to current treatment plan Reason for continued inpatient stay Substantial Risk for: inability to function Time Spent With Patient Time: Total time managing care of this patient today ____ minutes.
[2023-06-08 18:00] VITALS: BP 138/86; PULSE 72; RESP 18; TEMP 36.5; O2SAT 95
[2023-06-08] MEDS: Acetaminophen 325 MG TABLET 650 MG PO (20:50)
[2023-06-08] MEDS: traZODone HCL 100 MG TABLET PO (20:50)
[2023-06-08] MEDS: hydrOXYzine HCL 25 MG TABLET PO (20:50)
[2023-06-08] MEDS: OLANZapine 7.5 MG TABLET PO (20:50)
[2023-06-09 08:28] VITALS: BP 104/60; PULSE 70; RESP 16; TEMP 36.6; O2SAT 95
[2023-06-09] MEDS: polyethylene glycoL 3350 17 GM POWD.PACK PO (08:35)
[2023-06-09] MEDS: OLANZapine 2.5 MG TABLET PO (08:35)
[2023-06-09] MEDS: lamoTRIgine 100 MG TABLET PO ×2 (08:35→21:26)
[2023-06-09] MEDS: Memantine HCl 5 MG TABLET PO ×2 (08:35→21:26)
[2023-06-09] MEDS: traMADoL HCL 50 MG TABLET PO ×2 (09:55→17:40)
[2023-06-09] MEDS: Acetaminophen 325 MG TABLET 650 MG PO (12:03)
--- NOTE | 2023-06-09 14:08 | HO.PSYCHPN ---
Subjective Subjective Date of Service: 06/09/23 Reason For Visit: bipolar disorder Subjective Notes: Conditional Voluntary Interim History: met with patient. Discussed with Nursing. Slept well last night. Eating and drinking. Accepting medications. Has been less irritable this morning- took olanzpaine 2.5mg. Has been given this most mornings with good effect. No complaints from pt today. Clear cognitive impairment c/w dementia. Medication Compliance: Yes Side effects from medications: No Attending Groups: Intermittent (milieu) Review of Systems Acute medical concerns: No Review of Systems Review of Systems Unremarkable Yes all other systems are reviewed and are negative and Unobtainable due to mental status Mental Status Exam Mental Status Exam Narrative: hospital clothing. Irritable at times, but much less today. Disorganized behavior at times consistent with dementia. No SI or HI evident. Intermittent paranoia. Insight and judgment poor Patient Appearance: Appropriate Patient Orientation: Person Level of Consciousness: Awake Patient Behavior: Guarded and Passive Mood Description: Labile and Apprehensive Affect Description: Suspicious Patient Cognition Impaired: Yes Ability to Follow Directions: Fair Speech Pattern: Poor Articulation Memory Description: Immediate Impaired Diagnostics Vital Signs (24Hr): Vital Signs - 24 hr 06/08/23 18:00 06/09/23 08:28 Temperature 97.7 F 97.8 F Pulse Rate 72 70 Respiratory Rate 18 16 Blood Pressure 138/86 104/60 Pulse Oximetry 95 95 Oxygen Delivery Method Room Air Room Air BMI result Body Mass Index 27.4 Labs 02/15/23 06:42 02/15/23 06:43 Medications Medications Current Medications Acetaminophen (Acetaminophen 325 Mg Tablet) 650 mg PO Q4H PRN PRN Reason: Fever Last Admin: 06/09/23 12:03 Dose: 650 mg Al Hydroxide/Mg Hydroxide (Magnesium Hydrox/Alum Hydrox 30 Ml Oral.Susp) 30 ml PO Q6H PRN PRN Reason: Heartburn/Nausea Artificial Tears (Artificial Tears 15 Ml Drops) 1 drop EYE-BOTH Q4H PRN PRN Reason: Dry Eyes Last Admin: 03/24/23 01:42 Dose: 1 drop Bisacodyl (Bisacodyl 5 Mg Tablet.Dr) 10 mg PO DAILY PRN PRN Reason: Constipation Last Admin: 04/01/23 09:11 Dose: 10 mg Hydroxyzine HCl (Hydroxyzine Hcl 25 Mg Tablet) 25 mg PO Q6H PRN PRN Reason: Anxiety Last Admin: 06/08/23 20:50 Dose: 25 mg Lamotrigine (Lamotrigine 100 Mg Tablet) 100 mg PO BID [facility] Last Admin: 06/09/23 08:35 Dose: 100 mg Lidocaine (Lidocaine 4 % Patch Adh..Patch) 1 patch TRANSDERMA DAILY [facility]; Protocol Last Admin: 06/09/23 08:36 Dose: Not Given Magnesium Hydroxide (Milk Of Magnesia 30 Ml Oral.Susp) 30 ml PO DAILY PRN PRN Reason: Constipation Last Admin: 05/02/23 11:03 Dose: 30 ml Memantine (Memantine Hcl 5 Mg Tablet) 5 mg PO BID [facility] Last Admin: 06/09/23 08:35 Dose: 5 mg Olanzapine (Olanzapine 2.5 Mg Tablet) 2.5 mg PO TID PRN PRN Reason: agitation Last Admin: 06/09/23 08:35 Dose: 2.5 mg Olanzapine (Olanzapine 7.5 Mg Tablet) 7.5 mg PO BEDTIME [facility] Last Admin: 06/08/23 20:50 Dose: 7.5 mg Polyethylene Glycol (Polyethylene Glycol 3350 17 Gm Powd.Pack) 17 gm PO DAILY [facility] Last Admin: 06/09/23 08:35 Dose: 17 gm Tramadol HCl (Tramadol Hcl 50 Mg Tablet) 50 mg PO Q6H PRN PRN Reason: Pain, Severe (Pain Scale 7-10) Last Admin: 06/09/23 09:55 Dose: 50 mg Trazodone HCl (Trazodone Hcl 100 Mg Tablet) 100 mg PO BEDTIME [facility] Last Admin: 06/08/23 20:50 Dose: 100 mg Allergies Allergies Allergy/AdvReac Type Severity Reaction Status Date / Time pollen extracts Allergy Unknown unknown Verified 04/21/22 14:56 latex Allergy Rash Verified 10/31/22 18:30 Assessment & Plan Assessment & Plan (1) Bipolar disorder, now depressed: Status: Acute Code(s): F31.30 - Bipolar disorder, current episode depressed, mild or moderate severity, unspecified Assessment and Plan: Continue with current regimen (2) Chronic back pain: Status: Acute Code(s): M54.9 - Dorsalgia, unspecified; G89.29 - Other chronic pain Assessment and Plan: No change in management (3) Dementia: Status: Acute Code(s): F03.90 - Unspecified dementia, unspecified severity, without behavioral disturbance, psychotic disturbance, mood disturbance, and anxiety Assessment and Plan: continue memantine Plan 82 year old male with history hyperlipidemia, tubular adenoma colon, BPH, chronic normocytic anemia, 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 05/31/23 Continue with treatment plan: 1. Continue with same treatment. 2. Waiting for placement 06/07/23 cont plan of care d/c planning 06/08/2023: No changes to current treatment plan 06/08: schedule AM olanzapine 2.5mg- getting this frequently as a PRN Reason for continued inpatient stay Substantial Risk for: inability to function Time Spent With Patient Time: Total time managing care of this patient today ____ minutes.
[2023-06-09 18:00] VITALS: BP 90/60; PULSE 63; RESP 18; TEMP 36.6; O2SAT 92
[2023-06-09] MEDS: traZODone HCL 100 MG TABLET PO (21:26)
[2023-06-09] MEDS: OLANZapine 7.5 MG TABLET PO (21:26)
[2023-06-10 08:20] VITALS: BP 121/65; PULSE 76; RESP 18; TEMP 36.2; O2SAT 96
[2023-06-10] MEDS: lamoTRIgine 100 MG TABLET PO ×2 (08:27→20:32)
[2023-06-10] MEDS: Memantine HCl 5 MG TABLET PO ×2 (08:27→20:32)
[2023-06-10] MEDS: OLANZapine 2.5 MG TABLET PO (08:28)
[2023-06-10] MEDS: polyethylene glycoL 3350 17 GM POWD.PACK PO (08:38)
--- NOTE | 2023-06-10 14:22 | P.PNPSI_ITS ---
Subjective Subjective Date of Service: 06/10/23 Reason For Visit: bipolar disorder Subjective Notes: Conditional Voluntary Guardianship: Yes Interim History: Pt slept most of the night. He reports doing well but feeling a little bit tired this morning and states he will not be attending groups for this reason. No SI/HI. No behavioral concerns. He apparently was midly irritable yesterday, not today. Taking medications as prescribed. VS stable. Review of Systems Review of Systems Unremarkable Yes all other systems are reviewed and are negative and Unobtainable due to mental status Mental Status Exam Mental Status Exam Patient Appearance: Appropriate Patient Orientation: Person Level of Consciousness: Awake Patient Behavior: Guarded and Passive Mood Description: Labile and Apprehensive Affect Description: Suspicious Patient Cognition Impaired: Yes Ability to Follow Directions: Fair Speech Pattern: Poor Articulation Memory Description: Immediate Impaired Diagnostics Vital Signs (24Hr): Vital Signs - 24 hr 06/09/23 18:00 06/10/23 08:20 Temperature 97.9 F 97.2 F Pulse Rate 63 76 Respiratory Rate 18 18 Blood Pressure 90/60 121/65 Pulse Oximetry 92 96 Oxygen Delivery Method Room Air Room Air BMI result Body Mass Index 27.4 Labs 02/15/23 06:42 02/15/23 06:43 Medications Medications Current Medications Acetaminophen (Acetaminophen 325 Mg Tablet) 650 mg PO Q4H PRN PRN Reason: Fever Last Admin: 06/09/23 12:03 Dose: 650 mg Al Hydroxide/Mg Hydroxide (Magnesium Hydrox/Alum Hydrox 30 Ml Oral.Susp) 30 ml PO Q6H PRN PRN Reason: Heartburn/Nausea Artificial Tears (Artificial Tears 15 Ml Drops) 1 drop EYE-BOTH Q4H PRN PRN Reason: Dry Eyes Last Admin: 03/24/23 01:42 Dose: 1 drop Bisacodyl (Bisacodyl 5 Mg Tablet.Dr) 10 mg PO DAILY PRN PRN Reason: Constipation Last Admin: 04/01/23 09:11 Dose: 10 mg Hydroxyzine HCl (Hydroxyzine Hcl 25 Mg Tablet) 25 mg PO Q6H PRN PRN Reason: Anxiety Last Admin: 06/08/23 20:50 Dose: 25 mg Lamotrigine (Lamotrigine 100 Mg Tablet) 100 mg PO BID [facility] Last Admin: 06/10/23 08:27 Dose: 100 mg Magnesium Hydroxide (Milk Of Magnesia 30 Ml Oral.Susp) 30 ml PO DAILY PRN PRN Reason: Constipation Last Admin: 05/02/23 11:03 Dose: 30 ml Memantine (Memantine Hcl 5 Mg Tablet) 5 mg PO BID [facility] Last Admin: 06/10/23 08:27 Dose: 5 mg Olanzapine (Olanzapine 2.5 Mg Tablet) 2.5 mg PO TID PRN PRN Reason: agitation Last Admin: 06/09/23 08:35 Dose: 2.5 mg Olanzapine (Olanzapine 7.5 Mg Tablet) 7.5 mg PO BEDTIME [facility] Last Admin: 06/09/23 21:26 Dose: 7.5 mg Olanzapine (Olanzapine 2.5 Mg Tablet) 2.5 mg PO DAILY [facility] Last Admin: 06/10/23 08:28 Dose: 2.5 mg Polyethylene Glycol (Polyethylene Glycol 3350 17 Gm Powd.Pack) 17 gm PO DAILY [facility] Last Admin: 06/10/23 08:38 Dose: 17 gm Tramadol HCl (Tramadol Hcl 50 Mg Tablet) 50 mg PO Q6H PRN PRN Reason: Pain, Severe (Pain Scale 7-10) Last Admin: 06/09/23 17:40 Dose: 50 mg Trazodone HCl (Trazodone Hcl 100 Mg Tablet) 100 mg PO BEDTIME [facility] Last Admin: 06/09/23 21:26 Dose: 100 mg Allergies Allergies Allergy/AdvReac Type Severity Reaction Status Date / Time pollen extracts Allergy Unknown unknown Verified 04/21/22 14:56 latex Allergy Rash Verified 10/31/22 18:30 Assessment & Plan Assessment & Plan (1) Bipolar disorder, now depressed: Status: Acute Code(s): F31.30 - Bipolar disorder, current episode depressed, mild or moderate severity, unspecified Assessment and Plan: Continue with current regimen (2) Chronic back pain: Status: Acute Code(s): M54.9 - Dorsalgia, unspecified; G89.29 - Other chronic pain Assessment and Plan: No change in management (3) Dementia: Status: Acute Code(s): F03.90 - Unspecified dementia, unspecified severity, without behavioral disturbance, psychotic disturbance, mood disturbance, and anxiety Assessment and Plan: continue memantine Plan 82 year old male with history hyperlipidemia, tubular adenoma colon, BPH, chronic normocytic anemia, 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 05/31/23 Continue with treatment plan: 1. Continue with same treatment. 2. Waiting for placement 06/07/23 cont plan of care d/c planning 06/08/2023: No changes to current treatment plan 06/08: schedule AM olanzapine 2.5mg- getting this frequently as a PRN 06/09 continue tx. Reason for continued inpatient stay Substantial Risk for: inability to function Time Spent With Patient Time: Total time managing care of this patient today ____ minutes.
[2023-06-10 18:00] VITALS: BP 110/75; PULSE 74; RESP 18; TEMP 36.3; O2SAT 94
[2023-06-10] MEDS: traZODone HCL 100 MG TABLET PO (20:32)
[2023-06-10] MEDS: OLANZapine 7.5 MG TABLET PO (20:32)
[2023-06-10] MEDS: hydrOXYzine HCL 25 MG TABLET PO (20:33)
[2023-06-11 08:00] VITALS: BP 119/73; PULSE 65; RESP 18; TEMP 36.3; O2SAT 93
[2023-06-11] MEDS: Memantine HCl 5 MG TABLET PO ×2 (08:28→21:12)
[2023-06-11] MEDS: lamoTRIgine 100 MG TABLET PO ×2 (08:28→21:12)
[2023-06-11] MEDS: OLANZapine 2.5 MG TABLET PO (08:29)
[2023-06-11] MEDS: Acetaminophen 325 MG TABLET 650 MG PO (08:29)
[2023-06-11] MEDS: polyethylene glycoL 3350 17 GM POWD.PACK PO (08:30)
--- NOTE | 2023-06-11 16:50 | P.PNPSI_ITS ---
Subjective Subjective Date of Service: 06/11/23 Reason For Visit: bipolar disorder Subjective Notes: Section 8 Interim History: Pt slept at night. He reports doing well but feeling a little bit tired this morning and states he will not be attending groups for this reason. No SI/HI. No behavioral concerns. Taking medications as prescribed. VS stable. Review of Systems Review of Systems Unremarkable Yes all other systems are reviewed and are negative and Unobtainable due to mental status Mental Status Exam Mental Status Exam Patient Appearance: Appropriate Patient Orientation: Person Level of Consciousness: Awake Patient Behavior: Guarded and Passive Mood Description: Labile and Apprehensive Affect Description: Suspicious Patient Cognition Impaired: Yes Ability to Follow Directions: Fair Speech Pattern: Poor Articulation Memory Description: Immediate Impaired Diagnostics Vital Signs (24Hr): Vital Signs - 24 hr 06/10/23 18:00 06/11/23 08:00 Temperature 97.4 F 97.3 F Pulse Rate 74 65 Respiratory Rate 18 18 Blood Pressure 110/75 119/73 Pulse Oximetry 94 93 Oxygen Delivery Method Room Air Room Air BMI result Body Mass Index 27.4 Labs 02/15/23 06:42 02/15/23 06:43 Medications Medications Current Medications Acetaminophen (Acetaminophen 325 Mg Tablet) 650 mg PO Q4H PRN PRN Reason: Fever Last Admin: 06/11/23 08:29 Dose: 650 mg Al Hydroxide/Mg Hydroxide (Magnesium Hydrox/Alum Hydrox 30 Ml Oral.Susp) 30 ml PO Q6H PRN PRN Reason: Heartburn/Nausea Artificial Tears (Artificial Tears 15 Ml Drops) 1 drop EYE-BOTH Q4H PRN PRN Reason: Dry Eyes Last Admin: 03/24/23 01:42 Dose: 1 drop Bisacodyl (Bisacodyl 5 Mg Tablet.Dr) 10 mg PO DAILY PRN PRN Reason: Constipation Last Admin: 04/01/23 09:11 Dose: 10 mg Hydroxyzine HCl (Hydroxyzine Hcl 25 Mg Tablet) 25 mg PO Q6H PRN PRN Reason: Anxiety Last Admin: 06/10/23 20:33 Dose: 25 mg Lamotrigine (Lamotrigine 100 Mg Tablet) 100 mg PO BID [facility] Last Admin: 06/11/23 08:28 Dose: 100 mg Magnesium Hydroxide (Milk Of Magnesia 30 Ml Oral.Susp) 30 ml PO DAILY PRN PRN Reason: Constipation Last Admin: 05/02/23 11:03 Dose: 30 ml Memantine (Memantine Hcl 5 Mg Tablet) 5 mg PO BID [facility] Last Admin: 06/11/23 08:28 Dose: 5 mg Olanzapine (Olanzapine 2.5 Mg Tablet) 2.5 mg PO TID PRN PRN Reason: agitation Last Admin: 06/09/23 08:35 Dose: 2.5 mg Olanzapine (Olanzapine 7.5 Mg Tablet) 7.5 mg PO BEDTIME [facility] Last Admin: 06/10/23 20:32 Dose: 7.5 mg Olanzapine (Olanzapine 2.5 Mg Tablet) 2.5 mg PO DAILY [facility] Last Admin: 06/11/23 08:29 Dose: 2.5 mg Polyethylene Glycol (Polyethylene Glycol 3350 17 Gm Powd.Pack) 17 gm PO DAILY [facility] Last Admin: 06/11/23 08:30 Dose: 17 gm Tramadol HCl (Tramadol Hcl 50 Mg Tablet) 50 mg PO Q6H PRN PRN Reason: Pain, Severe (Pain Scale 7-10) Last Admin: 06/09/23 17:40 Dose: 50 mg Trazodone HCl (Trazodone Hcl 100 Mg Tablet) 100 mg PO BEDTIME [facility] Last Admin: 06/10/23 20:32 Dose: 100 mg Allergies Allergies Allergy/AdvReac Type Severity Reaction Status Date / Time pollen extracts Allergy Unknown unknown Verified 04/21/22 14:56 latex Allergy Rash Verified 10/31/22 18:30 Assessment & Plan Assessment & Plan (1) Bipolar disorder, now depressed: Status: Acute Code(s): F31.30 - Bipolar disorder, current episode depressed, mild or moderate severity, unspecified Assessment and Plan: Continue with current regimen (2) Chronic back pain: Status: Acute Code(s): M54.9 - Dorsalgia, unspecified; G89.29 - Other chronic pain Assessment and Plan: No change in management (3) Dementia: Status: Acute Code(s): F03.90 - Unspecified dementia, unspecified severity, without behavioral disturbance, psychotic disturbance, mood disturbance, and anxiety Assessment and Plan: continue memantine Plan 82 year old male with history hyperlipidemia, tubular adenoma colon, BPH, chronic normocytic anemia, 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 05/31/23 Continue with treatment plan: 1. Continue with same treatment. 2. Waiting for placement 06/07/23 cont plan of care d/c planning 06/08/2023: No changes to current treatment plan 06/08: schedule AM olanzapine 2.5mg- getting this frequently as a PRN 06/09 continue tx. 06/10 continue tx. Reason for continued inpatient stay Substantial Risk for: inability to function Time Spent With Patient Time: Total time managing care of this patient today ____ minutes.
[2023-06-11 18:00] VITALS: BP 126/58; PULSE 67; RESP 18; TEMP 36.6; O2SAT 94
[2023-06-11] MEDS: OLANZapine 7.5 MG TABLET PO (21:11)
[2023-06-11] MEDS: traZODone HCL 100 MG TABLET PO (21:12)
[2023-06-11] MEDS: hydrOXYzine HCL 25 MG TABLET PO (21:12)
[2023-06-11] MEDS: traMADoL HCL 50 MG TABLET PO (21:13)
[2023-06-12 08:05] VITALS: BP 116/85; PULSE 72; RESP 18; TEMP 36.6; O2SAT 94
[2023-06-12] MEDS: Memantine HCl 5 MG TABLET PO ×2 (11:34→20:25)
[2023-06-12] MEDS: OLANZapine 2.5 MG TABLET PO (11:34)
[2023-06-12] MEDS: polyethylene glycoL 3350 17 GM POWD.PACK PO (11:36)
[2023-06-12] MEDS: lamoTRIgine 100 MG TABLET PO ×2 (11:36→20:25)
--- NOTE | 2023-06-12 17:32 | P.PNPSI_ITS ---
Subjective Subjective Date of Service: 06/12/23 Reason For Visit: bipolar disorder Subjective Notes: Section 8 Interim History: Pt slept at night. He is pleasant on approach. She reports some back pain but states medications helping. No SI/HI. No behavioral concerns. Taking medications as prescribed. VS stable. Review of Systems Review of Systems Unremarkable Yes all other systems are reviewed and are negative and Unobtainable due to mental status Mental Status Exam Mental Status Exam Patient Appearance: Appropriate Patient Orientation: Person Level of Consciousness: Awake Patient Behavior: Guarded and Passive Mood Description: Labile and Apprehensive Affect Description: Suspicious Patient Cognition Impaired: Yes Ability to Follow Directions: Fair Speech Pattern: Poor Articulation Memory Description: Immediate Impaired Diagnostics Vital Signs (24Hr): Vital Signs - 24 hr 06/11/23 18:00 06/12/23 08:05 Temperature 97.9 F 97.8 F Pulse Rate 67 72 Respiratory Rate 18 18 Blood Pressure 126/58 L 116/85 Pulse Oximetry 94 94 Oxygen Delivery Method Room Air Room Air BMI result Body Mass Index 27.4 Labs 02/15/23 06:42 02/15/23 06:43 Medications Medications Current Medications Acetaminophen (Acetaminophen 325 Mg Tablet) 650 mg PO Q4H PRN PRN Reason: Fever Last Admin: 06/11/23 08:29 Dose: 650 mg Al Hydroxide/Mg Hydroxide (Magnesium Hydrox/Alum Hydrox 30 Ml Oral.Susp) 30 ml PO Q6H PRN PRN Reason: Heartburn/Nausea Artificial Tears (Artificial Tears 15 Ml Drops) 1 drop EYE-BOTH Q4H PRN PRN Reason: Dry Eyes Last Admin: 03/24/23 01:42 Dose: 1 drop Bisacodyl (Bisacodyl 5 Mg Tablet.Dr) 10 mg PO DAILY PRN PRN Reason: Constipation Last Admin: 04/01/23 09:11 Dose: 10 mg Hydroxyzine HCl (Hydroxyzine Hcl 25 Mg Tablet) 25 mg PO Q6H PRN PRN Reason: Anxiety Last Admin: 06/11/23 21:12 Dose: 25 mg Lamotrigine (Lamotrigine 100 Mg Tablet) 100 mg PO BID [facility] Last Admin: 06/12/23 11:36 Dose: 100 mg Magnesium Hydroxide (Milk Of Magnesia 30 Ml Oral.Susp) 30 ml PO DAILY PRN PRN Reason: Constipation Last Admin: 05/02/23 11:03 Dose: 30 ml Memantine (Memantine Hcl 5 Mg Tablet) 5 mg PO BID [facility] Last Admin: 06/12/23 11:34 Dose: 5 mg Olanzapine (Olanzapine 2.5 Mg Tablet) 2.5 mg PO TID PRN PRN Reason: agitation Last Admin: 06/09/23 08:35 Dose: 2.5 mg Olanzapine (Olanzapine 7.5 Mg Tablet) 7.5 mg PO BEDTIME [facility] Last Admin: 06/11/23 21:11 Dose: 7.5 mg Olanzapine (Olanzapine 2.5 Mg Tablet) 2.5 mg PO DAILY [facility] Last Admin: 06/12/23 11:34 Dose: 2.5 mg Polyethylene Glycol (Polyethylene Glycol 3350 17 Gm Powd.Pack) 17 gm PO DAILY [facility] Last Admin: 06/12/23 11:36 Dose: 17 gm Tramadol HCl (Tramadol Hcl 50 Mg Tablet) 50 mg PO Q6H PRN PRN Reason: Pain, Severe (Pain Scale 7-10) Last Admin: 06/11/23 21:13 Dose: 50 mg Trazodone HCl (Trazodone Hcl 100 Mg Tablet) 100 mg PO BEDTIME [facility] Last Admin: 06/11/23 21:12 Dose: 100 mg Allergies Allergies Allergy/AdvReac Type Severity Reaction Status Date / Time pollen extracts Allergy Unknown unknown Verified 04/21/22 14:56 latex Allergy Rash Verified 10/31/22 18:30 Assessment & Plan Assessment & Plan (1) Bipolar disorder, now depressed: Status: Acute Code(s): F31.30 - Bipolar disorder, current episode depressed, mild or moderate severity, unspecified Assessment and Plan: Continue with current regimen (2) Chronic back pain: Status: Acute Code(s): M54.9 - Dorsalgia, unspecified; G89.29 - Other chronic pain Assessment and Plan: No change in management (3) Dementia: Status: Acute Code(s): F03.90 - Unspecified dementia, unspecified severity, without behavioral disturbance, psychotic disturbance, mood disturbance, and anxiety Assessment and Plan: continue memantine Plan 82 year old male with history hyperlipidemia, tubular adenoma colon, BPH, chronic normocytic anemia, 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 1. Continue with same treatment. 2. Waiting for placement Reason for continued inpatient stay Substantial Risk for: inability to function Time Spent With Patient Time: Total time managing care of this patient today ____ minutes.
[2023-06-12 18:00] VITALS: BP 99/52; PULSE 62; RESP 18; TEMP 36.2; O2SAT 95
[2023-06-12] MEDS: Acetaminophen 325 MG TABLET 650 MG PO (20:24)
[2023-06-12] MEDS: hydrOXYzine HCL 25 MG TABLET PO (20:25)
[2023-06-12] MEDS: traZODone HCL 100 MG TABLET PO (20:25)
[2023-06-12] MEDS: OLANZapine 7.5 MG TABLET PO (20:25)
[2023-06-13 07:00] VITALS: BMI 27.2
[2023-06-13] MEDS: Memantine HCl 5 MG TABLET PO ×2 (08:17→20:42)
[2023-06-13] MEDS: lamoTRIgine 100 MG TABLET PO ×2 (08:17→20:42)
[2023-06-13] MEDS: polyethylene glycoL 3350 17 GM POWD.PACK PO (08:17)
[2023-06-13] MEDS: OLANZapine 2.5 MG TABLET PO (08:17)
[2023-06-13 09:34] VITALS: BP 128/72; PULSE 71; RESP 18; TEMP 36.5; O2SAT 95
[2023-06-13 18:00] VITALS: BP 125/78; PULSE 74; RESP 18; TEMP 36.9; O2SAT 95
[2023-06-13] MEDS: traZODone HCL 100 MG TABLET PO (20:42)
[2023-06-13] MEDS: hydrOXYzine HCL 25 MG TABLET PO (20:42)
[2023-06-13] MEDS: traMADoL HCL 50 MG TABLET PO (20:42)
[2023-06-13] MEDS: OLANZapine 7.5 MG TABLET PO (20:49)
--- NOTE | 2023-06-13 21:45 | P.PNPSI_ITS ---
Subjective Subjective Date of Service: 06/13/23 Reason For Visit: bipolar disorder Subjective Notes: Section 8 Interim History: Pt slept at night. He is pleasant on approach.He reports back pain but states medications helping. No SI/HI. No behavioral concerns. Taking medications as prescribed. VS stable. Social with select peers. Review of Systems Review of Systems Unremarkable Yes all other systems are reviewed and are negative and Unobtainable due to mental status Mental Status Exam Mental Status Exam Patient Appearance: Appropriate Patient Orientation: Person Level of Consciousness: Awake Patient Behavior: Guarded and Passive Mood Description: Labile and Apprehensive Affect Description: Suspicious Patient Cognition Impaired: Yes Ability to Follow Directions: Fair Speech Pattern: Poor Articulation Memory Description: Immediate Impaired Diagnostics Vital Signs (24Hr): Vital Signs - 24 hr 06/13/23 09:34 Temperature 97.7 F Pulse Rate 71 Respiratory Rate 18 Blood Pressure 128/72 Pulse Oximetry 95 Oxygen Delivery Method Room Air BMI result Body Mass Index 27.2 Labs 02/15/23 06:42 02/15/23 06:43 Medications Medications Current Medications Acetaminophen (Acetaminophen 325 Mg Tablet) 650 mg PO Q4H PRN PRN Reason: Fever Last Admin: 06/12/23 20:24 Dose: 650 mg Al Hydroxide/Mg Hydroxide (Magnesium Hydrox/Alum Hydrox 30 Ml Oral.Susp) 30 ml PO Q6H PRN PRN Reason: Heartburn/Nausea Artificial Tears (Artificial Tears 15 Ml Drops) 1 drop EYE-BOTH Q4H PRN PRN Reason: Dry Eyes Last Admin: 03/24/23 01:42 Dose: 1 drop Bisacodyl (Bisacodyl 5 Mg Tablet.) 10 mg PO DAILY PRN PRN Reason: Constipation Last Admin: 04/01/23 09:11 Dose: 10 mg Hydroxyzine HCl (Hydroxyzine Hcl 25 Mg Tablet) 25 mg PO Q6H PRN PRN Reason: Anxiety Last Admin: 06/13/23 20:42 Dose: 25 mg Lamotrigine (Lamotrigine 100 Mg Tablet) 100 mg PO BID [facility] Last Admin: 06/13/23 20:42 Dose: 100 mg Magnesium Hydroxide (Milk Of Magnesia 30 Ml Oral.Susp) 30 ml PO DAILY PRN PRN Reason: Constipation Last Admin: 05/02/23 11:03 Dose: 30 ml Memantine (Memantine Hcl 5 Mg Tablet) 5 mg PO BID [facility] Last Admin: 06/13/23 20:42 Dose: 5 mg Olanzapine (Olanzapine 2.5 Mg Tablet) 2.5 mg PO TID PRN PRN Reason: agitation Last Admin: 06/09/23 08:35 Dose: 2.5 mg Olanzapine (Olanzapine 7.5 Mg Tablet) 7.5 mg PO BEDTIME [facility] Last Admin: 06/13/23 20:49 Dose: 7.5 mg Olanzapine (Olanzapine 2.5 Mg Tablet) 2.5 mg PO DAILY [facility] Last Admin: 06/13/23 08:17 Dose: 2.5 mg Polyethylene Glycol (Polyethylene Glycol 3350 17 Gm Powd.Pack) 17 gm PO DAILY [facility] Last Admin: 06/13/23 08:17 Dose: 17 gm Tramadol HCl (Tramadol Hcl 50 Mg Tablet) 50 mg PO Q6H PRN PRN Reason: Pain, Severe (Pain Scale 7-10) Last Admin: 06/13/23 20:42 Dose: 50 mg Trazodone HCl (Trazodone Hcl 100 Mg Tablet) 100 mg PO BEDTIME [facility] Last Admin: 06/13/23 20:42 Dose: 100 mg Allergies Allergies Allergy/AdvReac Type Severity Reaction Status Date / Time pollen extracts Allergy Unknown unknown Verified 04/21/22 14:56 latex Allergy Rash Verified 10/31/22 18:30 Assessment & Plan Assessment & Plan (1) Bipolar disorder, now depressed: Status: Acute Code(s): F31.30 - Bipolar disorder, current episode depressed, mild or moderate severity, unspecified Assessment and Plan: Continue with current regimen (2) Chronic back pain: Status: Acute Code(s): M54.9 - Dorsalgia, unspecified; G89.29 - Other chronic pain Assessment and Plan: No change in management (3) Dementia: Status: Acute Code(s): F03.90 - Unspecified dementia, unspecified severity, without behavioral disturbance, psychotic disturbance, mood disturbance, and anxiety Assessment and Plan: continue memantine Plan 82 year old male with history hyperlipidemia, tubular adenoma colon, BPH, chronic normocytic anemia, 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 05/31/23 Continue with treatment plan: 1. Continue with same treatment. 2. Waiting for placement Reason for continued inpatient stay Substantial Risk for: inability to function Time Spent With Patient Time: Total time managing care of this patient today ____ minutes.
[2023-06-14 06:00] VITALS: BP 109/60; PULSE 68; RESP 18; TEMP 36.6; O2SAT 93
[2023-06-14] MEDS: OLANZapine 2.5 MG TABLET PO (09:51)
[2023-06-14] MEDS: lamoTRIgine 100 MG TABLET PO ×2 (09:51→20:17)
[2023-06-14] MEDS: Memantine HCl 5 MG TABLET PO ×2 (09:51→20:17)
[2023-06-14] MEDS: polyethylene glycoL 3350 17 GM POWD.PACK PO (09:51)
--- NOTE | 2023-06-14 16:34 | HO.PSYCHPN ---
Subjective Subjective Date of Service: 06/14/23 Reason For Visit: bipolar disorder Subjective Notes: Section 8 Interim History: Pt slept at night. He is pleasant on approach.He reports back pain but states medications helping. No SI/HI. No behavioral concerns. Taking medications as prescribed. VS stable. Social with select peers. Review of Systems Review of Systems Unremarkable Yes all other systems are reviewed and are negative and Unobtainable due to mental status Mental Status Exam Mental Status Exam Patient Appearance: Appropriate Patient Orientation: Person Level of Consciousness: Awake Patient Behavior: Guarded and Passive Mood Description: Labile and Apprehensive Affect Description: Suspicious Patient Cognition Impaired: Yes Ability to Follow Directions: Fair Speech Pattern: Poor Articulation Memory Description: Immediate Impaired Diagnostics Vital Signs (24Hr): Vital Signs - 24 hr 06/13/23 18:00 06/14/23 06:00 Temperature 98.4 F 98 F Pulse Rate 74 68 Respiratory Rate 18 18 Blood Pressure 125/78 109/60 Pulse Oximetry 95 93 Oxygen Delivery Method Room Air Room Air BMI result Body Mass Index 27.2 Labs 02/15/23 06:42 02/15/23 06:43 Medications Medications Current Medications Acetaminophen (Acetaminophen 325 Mg Tablet) 650 mg PO Q4H PRN PRN Reason: Fever Last Admin: 06/12/23 20:24 Dose: 650 mg Al Hydroxide/Mg Hydroxide (Magnesium Hydrox/Alum Hydrox 30 Ml Oral.Susp) 30 ml PO Q6H PRN PRN Reason: Heartburn/Nausea Artificial Tears (Artificial Tears 15 Ml Drops) 1 drop EYE-BOTH Q4H PRN PRN Reason: Dry Eyes Last Admin: 03/24/23 01:42 Dose: 1 drop Bisacodyl (Bisacodyl 5 Mg Tablet.Dr) 10 mg PO DAILY PRN PRN Reason: Constipation Last Admin: 04/01/23 09:11 Dose: 10 mg Hydroxyzine HCl (Hydroxyzine Hcl 25 Mg Tablet) 25 mg PO Q6H PRN PRN Reason: Anxiety Last Admin: 06/13/23 20:42 Dose: 25 mg Lamotrigine (Lamotrigine 100 Mg Tablet) 100 mg PO BID [facility] Last Admin: 06/14/23 09:51 Dose: 100 mg Magnesium Hydroxide (Milk Of Magnesia 30 Ml Oral.Susp) 30 ml PO DAILY PRN PRN Reason: Constipation Last Admin: 05/02/23 11:03 Dose: 30 ml Memantine (Memantine Hcl 5 Mg Tablet) 5 mg PO BID [facility] Last Admin: 06/14/23 09:51 Dose: 5 mg Olanzapine (Olanzapine 2.5 Mg Tablet) 2.5 mg PO TID PRN PRN Reason: agitation Last Admin: 06/09/23 08:35 Dose: 2.5 mg Olanzapine (Olanzapine 7.5 Mg Tablet) 7.5 mg PO BEDTIME [facility] Last Admin: 06/13/23 20:49 Dose: 7.5 mg Olanzapine (Olanzapine 2.5 Mg Tablet) 2.5 mg PO DAILY [facility] Last Admin: 06/14/23 09:51 Dose: 2.5 mg Polyethylene Glycol (Polyethylene Glycol 3350 17 Gm Powd.Pack) 17 gm PO DAILY [facility] Last Admin: 06/14/23 09:51 Dose: 17 gm Tramadol HCl (Tramadol Hcl 50 Mg Tablet) 50 mg PO Q6H PRN PRN Reason: Pain, Severe (Pain Scale 7-10) Last Admin: 06/13/23 20:42 Dose: 50 mg Trazodone HCl (Trazodone Hcl 100 Mg Tablet) 100 mg PO BEDTIME [facility] Last Admin: 06/13/23 20:42 Dose: 100 mg Allergies Allergies Allergy/AdvReac Type Severity Reaction Status Date / Time pollen extracts Allergy Unknown unknown Verified 04/21/22 14:56 latex Allergy Rash Verified 10/31/22 18:30 Assessment & Plan Assessment & Plan (1) Bipolar disorder, now depressed: Status: Acute Code(s): F31.30 - Bipolar disorder, current episode depressed, mild or moderate severity, unspecified Assessment and Plan: Continue with current regimen (2) Chronic back pain: Status: Acute Code(s): M54.9 - Dorsalgia, unspecified; G89.29 - Other chronic pain Assessment and Plan: No change in management (3) Dementia: Status: Acute Code(s): F03.90 - Unspecified dementia, unspecified severity, without behavioral disturbance, psychotic disturbance, mood disturbance, and anxiety Assessment and Plan: continue memantine Plan 82 year old male with history hyperlipidemia, tubular adenoma colon, BPH, chronic normocytic anemia, 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 PLAN 1. Continue with same treatment. 2. Waiting for placement Reason for continued inpatient stay Substantial Risk for: inability to function Time Spent With Patient Time: Total time managing care of this patient today ____ minutes.
[2023-06-14 19:30] VITALS: BP 128/63; PULSE 65; RESP 18; TEMP 37.5; O2SAT 94
[2023-06-14] MEDS: traZODone HCL 100 MG TABLET PO (20:17)
[2023-06-14] MEDS: OLANZapine 7.5 MG TABLET PO (20:17)
[2023-06-15 06:00] VITALS: BP 118/51; PULSE 59; RESP 18; TEMP 36.3; O2SAT 95
[2023-06-15] MEDS: Acetaminophen 325 MG TABLET 650 MG PO (08:31)
[2023-06-15] MEDS: lamoTRIgine 100 MG TABLET PO ×2 (08:31→20:24)
[2023-06-15] MEDS: Memantine HCl 5 MG TABLET PO ×2 (08:31→20:24)
[2023-06-15] MEDS: OLANZapine 2.5 MG TABLET PO (08:32)
[2023-06-15] MEDS: polyethylene glycoL 3350 17 GM POWD.PACK PO (08:32)
[2023-06-15 10:26] LABS: Influenza A PCR NEGATIVE (Negative); Influenza B PCR NEGATIVE (Negative); Resp Syncy Virus RNA Qual PCR NEGATIVE (Negative); SARS COV2 PCR INHOUSE NEGATIVE (Negative)
--- NOTE | 2023-06-15 10:45 | HO.PSYCHPN ---
Subjective Subjective Date of Service: 06/15/23 Reason For Visit: bipolar disorder Subjective Notes: Section 8 Interim History: No significant change. Pt slept at night. He is pleasant on approach.He reports back pain but states medications helping. No SI/HI. No behavioral concerns. Taking medications as prescribed. VS stable. Social with select peers. Review of Systems Review of Systems Unremarkable Yes all other systems are reviewed and are negative and Unobtainable due to mental status Mental Status Exam Mental Status Exam Patient Appearance: Appropriate Patient Orientation: Person Level of Consciousness: Awake Patient Behavior: Guarded and Passive Mood Description: Labile and Apprehensive Affect Description: Suspicious Patient Cognition Impaired: Yes Ability to Follow Directions: Fair Speech Pattern: Poor Articulation Memory Description: Immediate Impaired Diagnostics Vital Signs (24Hr): Vital Signs - 24 hr 06/14/23 19:30 Temperature 99.5 F Pulse Rate 65 Respiratory Rate 18 Blood Pressure 128/63 Pulse Oximetry 94 Oxygen Delivery Method Room Air BMI result Body Mass Index 27.2 Labs 02/15/23 06:42 02/15/23 06:43 Labs: Laboratory Results - last 48 hr 06/15/23 09:16 Influenza Type A (PCR) NEGATIVE Influenza Type B (PCR) NEGATIVE RSV RNA Qual (PCR) NEGATIVE SARS-CoV-2 RNA (RT-PCR) NEGATIVE Medications Medications Current Medications Acetaminophen (Acetaminophen 325 Mg Tablet) 650 mg PO Q4H PRN PRN Reason: Fever Last Admin: 06/15/23 08:31 Dose: 650 mg Al Hydroxide/Mg Hydroxide (Magnesium Hydrox/Alum Hydrox 30 Ml Oral.Susp) 30 ml PO Q6H PRN PRN Reason: Heartburn/Nausea Artificial Tears (Artificial Tears 15 Ml Drops) 1 drop EYE-BOTH Q4H PRN PRN Reason: Dry Eyes Last Admin: 03/24/23 01:42 Dose: 1 drop Bisacodyl (Bisacodyl 5 Mg Tablet.Dr) 10 mg PO DAILY PRN PRN Reason: Constipation Last Admin: 04/01/23 09:11 Dose: 10 mg Hydroxyzine HCl (Hydroxyzine Hcl 25 Mg Tablet) 25 mg PO Q6H PRN PRN Reason: Anxiety Last Admin: 06/13/23 20:42 Dose: 25 mg Lamotrigine (Lamotrigine 100 Mg Tablet) 100 mg PO BID [facility] Last Admin: 06/15/23 08:31 Dose: 100 mg Magnesium Hydroxide (Milk Of Magnesia 30 Ml Oral.Susp) 30 ml PO DAILY PRN PRN Reason: Constipation Last Admin: 05/02/23 11:03 Dose: 30 ml Memantine (Memantine Hcl 5 Mg Tablet) 5 mg PO BID [facility] Last Admin: 06/15/23 08:31 Dose: 5 mg Olanzapine (Olanzapine 2.5 Mg Tablet) 2.5 mg PO TID PRN PRN Reason: agitation Last Admin: 06/09/23 08:35 Dose: 2.5 mg Olanzapine (Olanzapine 7.5 Mg Tablet) 7.5 mg PO BEDTIME [facility] Last Admin: 06/14/23 20:17 Dose: 7.5 mg Olanzapine (Olanzapine 2.5 Mg Tablet) 2.5 mg PO DAILY [facility] Last Admin: 06/15/23 08:32 Dose: 2.5 mg Polyethylene Glycol (Polyethylene Glycol 3350 17 Gm Powd.Pack) 17 gm PO DAILY [facility] Last Admin: 06/15/23 08:32 Dose: 17 gm Tramadol HCl (Tramadol Hcl 50 Mg Tablet) 50 mg PO Q6H PRN PRN Reason: Pain, Severe (Pain Scale 7-10) Last Admin: 06/13/23 20:42 Dose: 50 mg Trazodone HCl (Trazodone Hcl 100 Mg Tablet) 100 mg PO BEDTIME [facility] Last Admin: 06/14/23 20:17 Dose: 100 mg Allergies Allergies Allergy/AdvReac Type Severity Reaction Status Date / Time pollen extracts Allergy Unknown unknown Verified 04/21/22 14:56 latex Allergy Rash Verified 10/31/22 18:30 Assessment & Plan Assessment & Plan (1) Bipolar disorder, now depressed: Status: Acute Code(s): F31.30 - Bipolar disorder, current episode depressed, mild or moderate severity, unspecified Assessment and Plan: Continue with current regimen (2) Chronic back pain: Status: Acute Code(s): M54.9 - Dorsalgia, unspecified; G89.29 - Other chronic pain Assessment and Plan: No change in management (3) Dementia: Status: Acute Code(s): F03.90 - Unspecified dementia, unspecified severity, without behavioral disturbance, psychotic disturbance, mood disturbance, and anxiety Assessment and Plan: continue memantine Plan 82 year old male with history hyperlipidemia, tubular adenoma colon, BPH, chronic normocytic anemia, 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 PLAN 1. Continue with same treatment. 2. Waiting for placement Reason for continued inpatient stay Substantial Risk for: inability to function Time Spent With Patient Time: Total time managing care of this patient today ____ minutes.
--- NOTE | 2023-06-15 13:09 | PC.NURSE ---
Patient complaining of a sore throat and runny nose this morning. VSS. Nemo Rojas [employer] reservation manager ordered Covid/FLU and RSV panel, collected all results negative. Patient tolerated procedure well.
[2023-06-15 19:40] VITALS: BP 100/57; PULSE 66; RESP 18; TEMP 36.2; O2SAT 95
[2023-06-15] MEDS: OLANZapine 7.5 MG TABLET PO (20:24)
[2023-06-15] MEDS: traZODone HCL 100 MG TABLET PO (20:24)
[2023-06-16 08:05] VITALS: BP 121/60; PULSE 60; RESP 18; TEMP 36.3; O2SAT 95
[2023-06-16] MEDS: lamoTRIgine 100 MG TABLET PO ×2 (09:58→21:27)
[2023-06-16] MEDS: OLANZapine 2.5 MG TABLET PO (09:58)
[2023-06-16] MEDS: Memantine HCl 5 MG TABLET PO ×2 (09:58→21:27)
[2023-06-16] MEDS: polyethylene glycoL 3350 17 GM POWD.PACK PO (09:58)
--- NOTE | 2023-06-16 13:57 | P.PNPSI_ITS ---
Subjective Subjective Date of Service: 06/16/23 Reason For Visit: bipolar disorder Subjective Notes: Conditional Voluntary Interim History: No significant change. Pt slept at night. He is pleasant on approach.He reports back pain but states medications helping. No SI/HI. No behavioral concerns. Taking medications as prescribed. VS stable. Social with select peers. Review of Systems Review of Systems Unremarkable Yes all other systems are reviewed and are negative and Unobtainable due to mental status Mental Status Exam Mental Status Exam Patient Appearance: Appropriate Patient Orientation: Person Level of Consciousness: Awake Patient Behavior: Guarded and Passive Mood Description: Labile and Apprehensive Affect Description: Suspicious Patient Cognition Impaired: Yes Ability to Follow Directions: Fair Speech Pattern: Poor Articulation Memory Description: Immediate Impaired Diagnostics Vital Signs (24Hr): Vital Signs - 24 hr 06/15/23 19:40 06/16/23 08:05 Temperature 97.2 F 97.3 F Pulse Rate 66 60 Respiratory Rate 18 18 Blood Pressure 100/57 L 121/60 Pulse Oximetry 95 95 Oxygen Delivery Method Room Air Room Air BMI result Body Mass Index 27.2 Labs 02/15/23 06:42 02/15/23 06:43 Labs: Laboratory Results - last 48 hr 06/15/23 09:16 Influenza Type A (PCR) NEGATIVE Influenza Type B (PCR) NEGATIVE RSV RNA Qual (PCR) NEGATIVE SARS-CoV-2 RNA (RT-PCR) NEGATIVE Medications Medications Current Medications Acetaminophen (Acetaminophen 325 Mg Tablet) 650 mg PO Q4H PRN PRN Reason: Fever Last Admin: 06/15/23 08:31 Dose: 650 mg Al Hydroxide/Mg Hydroxide (Magnesium Hydrox/Alum Hydrox 30 Ml Oral.Susp) 30 ml PO Q6H PRN PRN Reason: Heartburn/Nausea Artificial Tears (Artificial Tears 15 Ml Drops) 1 drop EYE-BOTH Q4H PRN PRN Reason: Dry Eyes Last Admin: 03/24/23 01:42 Dose: 1 drop Bisacodyl (Bisacodyl 5 Mg Tablet.) 10 mg PO DAILY PRN PRN Reason: Constipation Last Admin: 04/01/23 09:11 Dose: 10 mg Hydroxyzine HCl (Hydroxyzine Hcl 25 Mg Tablet) 25 mg PO Q6H PRN PRN Reason: Anxiety Last Admin: 06/13/23 20:42 Dose: 25 mg Lamotrigine (Lamotrigine 100 Mg Tablet) 100 mg PO BID [facility] Last Admin: 06/16/23 09:58 Dose: 100 mg Magnesium Hydroxide (Milk Of Magnesia 30 Ml Oral.Susp) 30 ml PO DAILY PRN PRN Reason: Constipation Last Admin: 05/02/23 11:03 Dose: 30 ml Memantine (Memantine Hcl 5 Mg Tablet) 5 mg PO BID [facility] Last Admin: 06/16/23 09:58 Dose: 5 mg Olanzapine (Olanzapine 2.5 Mg Tablet) 2.5 mg PO TID PRN PRN Reason: agitation Last Admin: 06/09/23 08:35 Dose: 2.5 mg Olanzapine (Olanzapine 7.5 Mg Tablet) 7.5 mg PO BEDTIME [facility] Last Admin: 06/15/23 20:24 Dose: 7.5 mg Olanzapine (Olanzapine 2.5 Mg Tablet) 2.5 mg PO DAILY [facility] Last Admin: 06/16/23 09:58 Dose: 2.5 mg Polyethylene Glycol (Polyethylene Glycol 3350 17 Gm Powd.Pack) 17 gm PO DAILY [facility] Last Admin: 06/16/23 09:58 Dose: 17 gm Tramadol HCl (Tramadol Hcl 50 Mg Tablet) 50 mg PO Q6H PRN PRN Reason: Pain, Severe (Pain Scale 7-10) Last Admin: 06/13/23 20:42 Dose: 50 mg Trazodone HCl (Trazodone Hcl 100 Mg Tablet) 100 mg PO BEDTIME [facility] Last Admin: 06/15/23 20:24 Dose: 100 mg Allergies Allergies Allergy/AdvReac Type Severity Reaction Status Date / Time pollen extracts Allergy Unknown unknown Verified 04/21/22 14:56 latex Allergy Rash Verified 10/31/22 18:30 Assessment & Plan Assessment & Plan (1) Bipolar disorder, now depressed: Status: Acute Code(s): F31.30 - Bipolar disorder, current episode depressed, mild or moderate severity, unspecified Assessment and Plan: Continue with current regimen (2) Chronic back pain: Status: Acute Code(s): M54.9 - Dorsalgia, unspecified; G89.29 - Other chronic pain Assessment and Plan: No change in management (3) Dementia: Status: Acute Code(s): F03.90 - Unspecified dementia, unspecified severity, without behavioral disturbance, psychotic disturbance, mood disturbance, and anxiety Assessment and Plan: continue memantine Plan 82 year old male with history hyperlipidemia, tubular adenoma colon, BPH, chronic normocytic anemia, 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 PLAN 1. Continue with same treatment. 2. Waiting for placement Reason for continued inpatient stay Substantial Risk for: inability to function Time Spent With Patient Time: Total time managing care of this patient today ____ minutes.
[2023-06-16] MEDS: traZODone HCL 100 MG TABLET PO (21:27)
[2023-06-16] MEDS: OLANZapine 7.5 MG TABLET PO (21:27)
[2023-06-16 21:37] VITALS: BP 157/88; PULSE 78; RESP 18; TEMP 36.1; O2SAT 96
[2023-06-17 06:00] VITALS: BP 131/76; PULSE 70; RESP 18; TEMP 36.7; O2SAT 95
[2023-06-17] MEDS: lamoTRIgine 100 MG TABLET PO ×2 (08:51→20:35)
[2023-06-17] MEDS: polyethylene glycoL 3350 17 GM POWD.PACK PO (08:51)
[2023-06-17] MEDS: OLANZapine 2.5 MG TABLET PO (08:51)
[2023-06-17] MEDS: Memantine HCl 5 MG TABLET PO ×2 (08:51→20:35)
[2023-06-17 18:00] VITALS: BP 131/74; PULSE 72; RESP 18; TEMP 36.6; O2SAT 96
--- NOTE | 2023-06-17 19:11 | P.PNPSI_ITS ---
Subjective Subjective Date of Service: 06/17/23 Reason For Visit: bipolar disorder Subjective Notes: Conditional Voluntary Interim History: Reviewed with Dr. Tobias. Active on unit, observed talking to peers. He is pleasant on approach. No behavioral concerns. Pt reports he is upset because they keep me here. I'm going to file a complaint with the [employer] department . Medication Compliance: Yes Review of Systems Review of Systems Yes all other systems are reviewed and are negative and Unobtainable due to mental status Mental Status Exam Mental Status Exam Patient Appearance: Appropriate Patient Orientation: Person Level of Consciousness: Awake Patient Behavior: Guarded and Passive Affect Description: Calm Patient Cognition Impaired: Yes Ability to Follow Directions: Fair Speech Pattern: Poor Articulation Memory Description: Immediate Impaired Diagnostics Vital Signs (24Hr): Vital Signs - 24 hr 06/16/23 21:37 06/17/23 06:00 Temperature 97 F 98.0 F Pulse Rate 78 70 Respiratory Rate 18 18 Blood Pressure 157/88 H 131/76 Pulse Oximetry 96 95 Oxygen Delivery Method Room Air Room Air BMI result Body Mass Index 27.2 Labs 02/15/23 06:42 02/15/23 06:43 Medications Medications Current Medications Acetaminophen (Acetaminophen 325 Mg Tablet) 650 mg PO Q4H PRN PRN Reason: Fever Last Admin: 06/15/23 08:31 Dose: 650 mg Al Hydroxide/Mg Hydroxide (Magnesium Hydrox/Alum Hydrox 30 Ml Oral.Susp) 30 ml PO Q6H PRN PRN Reason: Heartburn/Nausea Artificial Tears (Artificial Tears 15 Ml Drops) 1 drop EYE-BOTH Q4H PRN PRN Reason: Dry Eyes Last Admin: 03/24/23 01:42 Dose: 1 drop Bisacodyl (Bisacodyl 5 Mg Tablet.Dr) 10 mg PO DAILY PRN PRN Reason: Constipation Last Admin: 04/01/23 09:11 Dose: 10 mg Hydroxyzine HCl (Hydroxyzine Hcl 25 Mg Tablet) 25 mg PO Q6H PRN PRN Reason: Anxiety Last Admin: 06/13/23 20:42 Dose: 25 mg Lamotrigine (Lamotrigine 100 Mg Tablet) 100 mg PO BID [facility] Last Admin: 06/17/23 08:51 Dose: 100 mg Magnesium Hydroxide (Milk Of Magnesia 30 Ml Oral.Susp) 30 ml PO DAILY PRN PRN Reason: Constipation Last Admin: 05/02/23 11:03 Dose: 30 ml Memantine (Memantine Hcl 5 Mg Tablet) 5 mg PO BID [facility] Last Admin: 06/17/23 08:51 Dose: 5 mg Olanzapine (Olanzapine 2.5 Mg Tablet) 2.5 mg PO TID PRN PRN Reason: agitation Last Admin: 06/09/23 08:35 Dose: 2.5 mg Olanzapine (Olanzapine 7.5 Mg Tablet) 7.5 mg PO BEDTIME [facility] Last Admin: 06/16/23 21:27 Dose: 7.5 mg Olanzapine (Olanzapine 2.5 Mg Tablet) 2.5 mg PO DAILY [facility] Last Admin: 06/17/23 08:51 Dose: 2.5 mg Polyethylene Glycol (Polyethylene Glycol 3350 17 Gm Powd.Pack) 17 gm PO DAILY [facility] Last Admin: 06/17/23 08:51 Dose: 17 gm Tramadol HCl (Tramadol Hcl 50 Mg Tablet) 50 mg PO Q6H PRN PRN Reason: Pain, Severe (Pain Scale 7-10) Last Admin: 06/13/23 20:42 Dose: 50 mg Trazodone HCl (Trazodone Hcl 100 Mg Tablet) 100 mg PO BEDTIME [facility] Last Admin: 06/16/23 21:27 Dose: 100 mg Allergies Allergies Allergy/AdvReac Type Severity Reaction Status Date / Time pollen extracts Allergy Unknown unknown Verified 04/21/22 14:56 latex Allergy Rash Verified 10/31/22 18:30 Assessment & Plan Assessment & Plan (1) Bipolar disorder, now depressed: Status: Acute Code(s): F31.30 - Bipolar disorder, current episode depressed, mild or moderate severity, unspecified Assessment and Plan: Continue with current regimen (2) Chronic back pain: Status: Acute Code(s): M54.9 - Dorsalgia, unspecified; G89.29 - Other chronic pain Assessment and Plan: No change in management (3) Dementia: Status: Acute Code(s): F03.90 - Unspecified dementia, unspecified severity, without behavioral disturbance, psychotic disturbance, mood disturbance, and anxiety Assessment and Plan: continue memantine Plan 82 year old male with history hyperlipidemia, tubular adenoma colon, BPH, chronic normocytic anemia, 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 PLAN 1. Continue with same treatment. 2. Waiting for placement 06/16: continue current tx plan. Reason for continued inpatient stay Substantial Risk for: med/psych decompensation Time Spent With Patient Time: Total time managing care of this patient today ____ minutes.
[2023-06-17] MEDS: Acetaminophen 325 MG TABLET 650 MG PO (20:34)
[2023-06-17] MEDS: hydrOXYzine HCL 25 MG TABLET PO (20:35)
[2023-06-17] MEDS: OLANZapine 7.5 MG TABLET PO (20:35)
[2023-06-17] MEDS: traZODone HCL 100 MG TABLET PO (20:35)
[2023-06-18 08:00] VITALS: BP 110/66; PULSE 70; RESP 18; TEMP 36; O2SAT 97
[2023-06-18] MEDS: Memantine HCl 5 MG TABLET PO ×2 (08:40→21:23)
[2023-06-18] MEDS: OLANZapine 2.5 MG TABLET PO ×2 (08:40→23:38)
[2023-06-18] MEDS: lamoTRIgine 100 MG TABLET PO ×2 (08:40→21:23)
[2023-06-18] MEDS: polyethylene glycoL 3350 17 GM POWD.PACK PO (08:44)
--- NOTE | 2023-06-18 09:26 | HO.PSYCHPN ---
Subjective Subjective Date of Service: 06/18/23 Reason For Visit: bipolar disorder Interim History: Review of record, discussed with team, Seen early in am sitting in side of bed. He is pleasant on approach. No behavioral concerns. Pt reports he is upset because I'm still here. i want to go home. Medication Compliance: Yes Side effects from medications: No Attending Groups: Intermittent Review of Systems Acute medical concerns: No Medical Review of Systems: unchanged Review of Systems Review of Systems Unremarkable Yes all other systems are reviewed and are negative and Unobtainable due to mental status Mental Status Exam Mental Status Exam Narrative: Hygeine and grooming fair. No irritabilty this morning. Disorganized behavior at times consistent with dementia. No SI or HI evident. Intermittent paranoia. Insight and judgment poor Patient Appearance: Appropriate Patient Orientation: Person Level of Consciousness: Awake Patient Behavior: Guarded and Passive Mood Description: Labile and Apprehensive Affect Description: Calm Patient Cognition Impaired: Yes Ability to Follow Directions: Fair Speech Pattern: Poor Articulation Memory Description: Immediate Impaired Diagnostics Vital Signs (24Hr): Vital Signs - 24 hr 06/17/23 18:00 Temperature 97.8 F Pulse Rate 72 Respiratory Rate 18 Blood Pressure 131/74 Pulse Oximetry 96 Oxygen Delivery Method Room Air BMI result Body Mass Index 27.2 Labs 02/15/23 06:42 02/15/23 06:43 Medications Medications Current Medications Acetaminophen (Acetaminophen 325 Mg Tablet) 650 mg PO Q4H PRN PRN Reason: Fever Last Admin: 06/17/23 20:34 Dose: 650 mg Al Hydroxide/Mg Hydroxide (Magnesium Hydrox/Alum Hydrox 30 Ml Oral.Susp) 30 ml PO Q6H PRN PRN Reason: Heartburn/Nausea Artificial Tears (Artificial Tears 15 Ml Drops) 1 drop EYE-BOTH Q4H PRN PRN Reason: Dry Eyes Last Admin: 03/24/23 01:42 Dose: 1 drop Bisacodyl (Bisacodyl 5 Mg Tablet.) 10 mg PO DAILY PRN PRN Reason: Constipation Last Admin: 04/01/23 09:11 Dose: 10 mg Hydroxyzine HCl (Hydroxyzine Hcl 25 Mg Tablet) 25 mg PO Q6H PRN PRN Reason: Anxiety Last Admin: 06/17/23 20:35 Dose: 25 mg Lamotrigine (Lamotrigine 100 Mg Tablet) 100 mg PO BID [facility] Last Admin: 06/18/23 08:40 Dose: 100 mg Magnesium Hydroxide (Milk Of Magnesia 30 Ml Oral.Susp) 30 ml PO DAILY PRN PRN Reason: Constipation Last Admin: 05/02/23 11:03 Dose: 30 ml Memantine (Memantine Hcl 5 Mg Tablet) 5 mg PO BID [facility] Last Admin: 06/18/23 08:40 Dose: 5 mg Olanzapine (Olanzapine 2.5 Mg Tablet) 2.5 mg PO TID PRN PRN Reason: agitation Last Admin: 06/09/23 08:35 Dose: 2.5 mg Olanzapine (Olanzapine 7.5 Mg Tablet) 7.5 mg PO BEDTIME [facility] Last Admin: 06/17/23 20:35 Dose: 7.5 mg Olanzapine (Olanzapine 2.5 Mg Tablet) 2.5 mg PO DAILY [facility] Last Admin: 06/18/23 08:40 Dose: 2.5 mg Polyethylene Glycol (Polyethylene Glycol 3350 17 Gm Powd.Pack) 17 gm PO DAILY [facility] Last Admin: 06/18/23 08:44 Dose: 17 gm Tramadol HCl (Tramadol Hcl 50 Mg Tablet) 50 mg PO Q6H PRN PRN Reason: Pain, Severe (Pain Scale 7-10) Last Admin: 06/13/23 20:42 Dose: 50 mg Trazodone HCl (Trazodone Hcl 100 Mg Tablet) 100 mg PO BEDTIME [facility] Last Admin: 06/17/23 20:35 Dose: 100 mg Allergies Allergies Allergy/AdvReac Type Severity Reaction Status Date / Time pollen extracts Allergy Unknown unknown Verified 04/21/22 14:56 latex Allergy Rash Verified 10/31/22 18:30 Assessment & Plan Assessment & Plan (1) Bipolar disorder, now depressed: Status: Acute Code(s): F31.30 - Bipolar disorder, current episode depressed, mild or moderate severity, unspecified Assessment and Plan: Continue with current regimen (2) Chronic back pain: Status: Acute Code(s): M54.9 - Dorsalgia, unspecified; G89.29 - Other chronic pain Assessment and Plan: No change in management (3) Dementia: Status: Acute Code(s): F03.90 - Unspecified dementia, unspecified severity, without behavioral disturbance, psychotic disturbance, mood disturbance, and anxiety Assessment and Plan: continue memantine Plan 82 year old male with history hyperlipidemia, tubular adenoma colon, BPH, chronic normocytic anemia, 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 PLAN 1. Continue with same treatment. 2. Waiting for placement 06/16: continue current tx plan. 06/17 continue current treatment plan Informed Consent: does not understand Reason for continued inpatient stay Substantial Risk for: harm to self and inability to function Time Spent With Patient Time: Total time managing care of this patient today ___30_ minutes.
[2023-06-18 18:00] VITALS: BP 137/82; PULSE 68; RESP 18; TEMP 36.6; O2SAT 96
[2023-06-18] MEDS: traZODone HCL 100 MG TABLET PO (21:23)
[2023-06-18] MEDS: OLANZapine 7.5 MG TABLET PO (21:23)
[2023-06-18] MEDS: traMADoL HCL 50 MG TABLET PO (23:37)
[2023-06-18] MEDS: hydrOXYzine HCL 25 MG TABLET PO (23:38)
[2023-06-19 08:00] VITALS: BP 135/71; PULSE 69; RESP 18; TEMP 36.6; O2SAT 94
[2023-06-19] MEDS: lamoTRIgine 100 MG TABLET PO ×2 (08:15→21:59)
[2023-06-19] MEDS: Memantine HCl 5 MG TABLET PO ×2 (08:15→21:59)
[2023-06-19] MEDS: OLANZapine 2.5 MG TABLET PO (08:15)
[2023-06-19] MEDS: polyethylene glycoL 3350 17 GM POWD.PACK PO (08:16)
--- NOTE | 2023-06-19 17:45 | P.PNPSI_ITS ---
Subjective Subjective Date of Service: 06/19/23 Reason For Visit: bipolar disorder Subjective Notes: Conditional Voluntary Interim History: The nursing staff reported no changes in her mental status chronically confused. On interview the patient denies new symptoms, waiting placement Mental Status Exam Mental Status Exam Patient Appearance: Appropriate Patient Orientation: Person and Situation Level of Consciousness: Awake and Appropriate Patient Behavior: Guarded and Passive Mood Description: Withdrawn Affect Description: Constricted Patient Cognition Impaired: Yes Ability to Follow Directions: Good Speech Pattern: Clear Hallucinations: None Delusions: Not Present Thought Process: Intact Thought Content: positive for [place] and positive for Poverty of Content Judgement: Poor Diagnostics Vital Signs (24Hr): Vital Signs - 24 hr 06/18/23 18:00 06/19/23 08:00 Temperature 98 F 97.8 F Pulse Rate 68 69 Respiratory Rate 18 18 Blood Pressure 137/82 135/71 Pulse Oximetry 96 94 Oxygen Delivery Method Room Air Room Air BMI result Body Mass Index 27.2 Labs 02/15/23 06:42 02/15/23 06:43 Medications Medications Current Medications Acetaminophen (Acetaminophen 325 Mg Tablet) 650 mg PO Q4H PRN PRN Reason: Fever Last Admin: 06/17/23 20:34 Dose: 650 mg Al Hydroxide/Mg Hydroxide (Magnesium Hydrox/Alum Hydrox 30 Ml Oral.Susp) 30 ml PO Q6H PRN PRN Reason: Heartburn/Nausea Artificial Tears (Artificial Tears 15 Ml Drops) 1 drop EYE-BOTH Q4H PRN PRN Reason: Dry Eyes Last Admin: 03/24/23 01:42 Dose: 1 drop Bisacodyl (Bisacodyl 5 Mg Tablet.) 10 mg PO DAILY PRN PRN Reason: Constipation Last Admin: 04/01/23 09:11 Dose: 10 mg Hydroxyzine HCl (Hydroxyzine Hcl 25 Mg Tablet) 25 mg PO Q6H PRN PRN Reason: Anxiety Last Admin: 06/18/23 23:38 Dose: 25 mg Lamotrigine (Lamotrigine 100 Mg Tablet) 100 mg PO BID [facility] Last Admin: 06/19/23 08:15 Dose: 100 mg Magnesium Hydroxide (Milk Of Magnesia 30 Ml Oral.Susp) 30 ml PO DAILY PRN PRN Reason: Constipation Last Admin: 05/02/23 11:03 Dose: 30 ml Memantine (Memantine Hcl 5 Mg Tablet) 5 mg PO BID [facility] Last Admin: 06/19/23 08:15 Dose: 5 mg Olanzapine (Olanzapine 2.5 Mg Tablet) 2.5 mg PO TID PRN PRN Reason: agitation Last Admin: 06/18/23 23:38 Dose: 2.5 mg Olanzapine (Olanzapine 7.5 Mg Tablet) 7.5 mg PO BEDTIME [facility] Last Admin: 06/18/23 21:23 Dose: 7.5 mg Olanzapine (Olanzapine 2.5 Mg Tablet) 2.5 mg PO DAILY [facility] Last Admin: 06/19/23 08:15 Dose: 2.5 mg Polyethylene Glycol (Polyethylene Glycol 3350 17 Gm Powd.Pack) 17 gm PO DAILY [facility] Last Admin: 06/19/23 08:16 Dose: 17 gm Tramadol HCl (Tramadol Hcl 50 Mg Tablet) 50 mg PO Q6H PRN PRN Reason: Pain, Severe (Pain Scale 7-10) Last Admin: 06/18/23 23:37 Dose: 50 mg Trazodone HCl (Trazodone Hcl 100 Mg Tablet) 100 mg PO BEDTIME [facility] Last Admin: 06/18/23 21:23 Dose: 100 mg Allergies Allergies Allergy/AdvReac Type Severity Reaction Status Date / Time pollen extracts Allergy Unknown unknown Verified 04/21/22 14:56 latex Allergy Rash Verified 10/31/22 18:30 Assessment & Plan Assessment & Plan (1) Bipolar disorder, now depressed: Status: Acute Code(s): F31.30 - Bipolar disorder, current episode depressed, mild or moderate severity, unspecified Assessment and Plan: Continue with current regimen (2) Chronic back pain: Status: Acute Code(s): M54.9 - Dorsalgia, unspecified; G89.29 - Other chronic pain Assessment and Plan: No change in management (3) Dementia: Status: Acute Code(s): F03.90 - Unspecified dementia, unspecified severity, without behavioral disturbance, psychotic disturbance, mood disturbance, and anxiety Assessment and Plan: continue memantine Plan 82 year old male with history hyperlipidemia, tubular adenoma colon, BPH, chronic normocytic anemia, 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 PLAN 1. Continue with same treatment. 2. Waiting for placement Reason for continued inpatient stay Substantial Risk for: inability to function, rapid decompensation and med/psych decompensation Time Spent With Patient Time: Total time managing care of this patient today _20___ minutes.
[2023-06-19 18:00] VITALS: BP 147/74; PULSE 70; RESP 18; TEMP 36.9; O2SAT 95
[2023-06-19] MEDS: traZODone HCL 100 MG TABLET PO (21:59)
[2023-06-19] MEDS: OLANZapine 7.5 MG TABLET PO (21:59)
[2023-06-20] MEDS: OLANZapine 2.5 MG TABLET PO (08:55)
[2023-06-20] MEDS: lamoTRIgine 100 MG TABLET PO ×2 (08:55→22:24)
[2023-06-20] MEDS: Memantine HCl 5 MG TABLET PO ×2 (08:55→22:25)
[2023-06-20] MEDS: polyethylene glycoL 3350 17 GM POWD.PACK PO (08:55)
[2023-06-20 10:03] VITALS: BMI 28.2
--- NOTE | 2023-06-20 17:13 | P.PNPSI_ITS ---
Subjective Subjective Date of Service: 06/20/23 Reason For Visit: bipolar disorder Subjective Notes: Conditional Voluntary Interim History: The nursing staff reported the patient had been pleasantly confused, easily redirectable. On interview the patient denies new symptoms, waiting for placement Mental Status Exam Mental Status Exam Patient Appearance: Appropriate and Unkempt Patient Orientation: Person and Situation Level of Consciousness: Awake and Appropriate Patient Behavior: Guarded and Passive Mood Description: Withdrawn Affect Description: Constricted Patient Cognition Impaired: Yes Ability to Follow Directions: Good Speech Pattern: Clear Hallucinations: None Delusions: Not Present Thought Process: Distracted and Slowed Thinking Thought Content: positive for [place] and positive for Poverty of Content Judgement: Poor Diagnostics Vital Signs (24Hr): Vital Signs - 24 hr 06/19/23 18:00 Temperature 98.4 F Pulse Rate 70 Respiratory Rate 18 Blood Pressure 147/74 H Pulse Oximetry 95 Oxygen Delivery Method Room Air BMI result Body Mass Index 28.2 Labs 02/15/23 06:42 02/15/23 06:43 Medications Medications Current Medications Acetaminophen (Acetaminophen 325 Mg Tablet) 650 mg PO Q4H PRN PRN Reason: Fever Last Admin: 06/17/23 20:34 Dose: 650 mg Al Hydroxide/Mg Hydroxide (Magnesium Hydrox/Alum Hydrox 30 Ml Oral.Susp) 30 ml PO Q6H PRN PRN Reason: Heartburn/Nausea Artificial Tears (Artificial Tears 15 Ml Drops) 1 drop EYE-BOTH Q4H PRN PRN Reason: Dry Eyes Last Admin: 03/24/23 01:42 Dose: 1 drop Bisacodyl (Bisacodyl 5 Mg Tablet.Dr) 10 mg PO DAILY PRN PRN Reason: Constipation Last Admin: 04/01/23 09:11 Dose: 10 mg Hydroxyzine HCl (Hydroxyzine Hcl 25 Mg Tablet) 25 mg PO Q6H PRN PRN Reason: Anxiety Last Admin: 06/18/23 23:38 Dose: 25 mg Lamotrigine (Lamotrigine 100 Mg Tablet) 100 mg PO BID [facility] Last Admin: 06/20/23 08:55 Dose: 100 mg Magnesium Hydroxide (Milk Of Magnesia 30 Ml Oral.Susp) 30 ml PO DAILY PRN PRN Reason: Constipation Last Admin: 05/02/23 11:03 Dose: 30 ml Memantine (Memantine Hcl 5 Mg Tablet) 5 mg PO BID [facility] Last Admin: 06/20/23 08:55 Dose: 5 mg Olanzapine (Olanzapine 2.5 Mg Tablet) 2.5 mg PO TID PRN PRN Reason: agitation Last Admin: 06/18/23 23:38 Dose: 2.5 mg Olanzapine (Olanzapine 7.5 Mg Tablet) 7.5 mg PO BEDTIME [facility] Last Admin: 06/19/23 21:59 Dose: 7.5 mg Olanzapine (Olanzapine 2.5 Mg Tablet) 2.5 mg PO DAILY [facility] Last Admin: 06/20/23 08:55 Dose: 2.5 mg Polyethylene Glycol (Polyethylene Glycol 3350 17 Gm Powd.Pack) 17 gm PO DAILY [facility] Last Admin: 06/20/23 08:55 Dose: 17 gm Tramadol HCl (Tramadol Hcl 50 Mg Tablet) 50 mg PO Q6H PRN PRN Reason: Pain, Severe (Pain Scale 7-10) Last Admin: 06/18/23 23:37 Dose: 50 mg Trazodone HCl (Trazodone Hcl 100 Mg Tablet) 100 mg PO BEDTIME [facility] Last Admin: 06/19/23 21:59 Dose: 100 mg Allergies Allergies Allergy/AdvReac Type Severity Reaction Status Date / Time pollen extracts Allergy Unknown unknown Verified 04/21/22 14:56 latex Allergy Rash Verified 10/31/22 18:30 Assessment & Plan Assessment & Plan (1) Bipolar disorder, now depressed: Status: Acute Code(s): F31.30 - Bipolar disorder, current episode depressed, mild or moderate severity, unspecified Assessment and Plan: Continue with current regimen (2) Chronic back pain: Status: Acute Code(s): M54.9 - Dorsalgia, unspecified; G89.29 - Other chronic pain Assessment and Plan: No change in management (3) Dementia: Status: Acute Code(s): F03.90 - Unspecified dementia, unspecified severity, without behavioral disturbance, psychotic disturbance, mood disturbance, and anxiety Assessment and Plan: continue memantine Plan 82 year old male with history hyperlipidemia, tubular adenoma colon, BPH, chronic normocytic anemia, 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 PLAN 1. Continue with same treatment. 2. Waiting for placement Reason for continued inpatient stay Substantial Risk for: inability to function, rapid decompensation and med/psych decompensation Time Spent With Patient Time: Total time managing care of this patient today __20__ minutes.
[2023-06-20 18:00] VITALS: BP 134/84; PULSE 68; RESP 16; TEMP 36.8; O2SAT 98
[2023-06-20] MEDS: traZODone HCL 100 MG TABLET PO (22:24)
[2023-06-20] MEDS: OLANZapine 7.5 MG TABLET PO (22:25)
[2023-06-20] MEDS: traMADoL HCL 50 MG TABLET PO (22:25)
[2023-06-21 08:00] VITALS: BP 147/81; PULSE 75; RESP 18; TEMP 36.6; O2SAT 96
[2023-06-21] MEDS: Memantine HCl 5 MG TABLET PO ×2 (08:24→20:05)
[2023-06-21] MEDS: polyethylene glycoL 3350 17 GM POWD.PACK PO (08:24)
[2023-06-21] MEDS: OLANZapine 2.5 MG TABLET PO (08:24)
[2023-06-21] MEDS: lamoTRIgine 100 MG TABLET PO ×2 (08:24→20:05)
--- NOTE | 2023-06-21 14:35 | P.PNPSI_ITS ---
Subjective Subjective Date of Service: 06/21/23 Reason For Visit: bipolar disorder Subjective Notes: Conditional Voluntary Interim History: The nursing staff reported no changes in her mental status he remains confused but redirectable. On interview the patient denies new symptoms, waiting for placement. Mental Status Exam Mental Status Exam Patient Appearance: Appropriate and Unkempt Patient Orientation: Person and Situation Level of Consciousness: Awake and Appropriate Patient Behavior: Passive Mood Description: Withdrawn Affect Description: Constricted Patient Cognition Impaired: Yes Ability to Follow Directions: Good Speech Pattern: Clear Hallucinations: None Delusions: Not Present Thought Process: Distracted and Slowed Thinking Thought Content: positive for [place] and positive for Poverty of Content Judgement: Fair Diagnostics Vital Signs (24Hr): Vital Signs - 24 hr 06/20/23 18:00 06/21/23 08:00 Temperature 98.2 F 97.9 F Pulse Rate 68 75 Respiratory Rate 16 18 Blood Pressure 134/84 147/81 H Pulse Oximetry 98 96 Oxygen Delivery Method Room Air Room Air BMI result Body Mass Index 28.2 Labs 02/15/23 06:42 02/15/23 06:43 Medications Medications Current Medications Acetaminophen (Acetaminophen 325 Mg Tablet) 650 mg PO Q4H PRN PRN Reason: Fever Last Admin: 06/17/23 20:34 Dose: 650 mg Al Hydroxide/Mg Hydroxide (Magnesium Hydrox/Alum Hydrox 30 Ml Oral.Susp) 30 ml PO Q6H PRN PRN Reason: Heartburn/Nausea Artificial Tears (Artificial Tears 15 Ml Drops) 1 drop EYE-BOTH Q4H PRN PRN Reason: Dry Eyes Last Admin: 03/24/23 01:42 Dose: 1 drop Bisacodyl (Bisacodyl 5 Mg Tablet.Dr) 10 mg PO DAILY PRN PRN Reason: Constipation Last Admin: 04/01/23 09:11 Dose: 10 mg Hydroxyzine HCl (Hydroxyzine Hcl 25 Mg Tablet) 25 mg PO Q6H PRN PRN Reason: Anxiety Last Admin: 06/18/23 23:38 Dose: 25 mg Lamotrigine (Lamotrigine 100 Mg Tablet) 100 mg PO BID [facility] Last Admin: 06/21/23 08:24 Dose: 100 mg Magnesium Hydroxide (Milk Of Magnesia 30 Ml Oral.Susp) 30 ml PO DAILY PRN PRN Reason: Constipation Last Admin: 05/02/23 11:03 Dose: 30 ml Memantine (Memantine Hcl 5 Mg Tablet) 5 mg PO BID [facility] Last Admin: 06/21/23 08:24 Dose: 5 mg Olanzapine (Olanzapine 2.5 Mg Tablet) 2.5 mg PO TID PRN PRN Reason: agitation Last Admin: 06/18/23 23:38 Dose: 2.5 mg Olanzapine (Olanzapine 7.5 Mg Tablet) 7.5 mg PO BEDTIME [facility] Last Admin: 06/20/23 22:25 Dose: 7.5 mg Olanzapine (Olanzapine 2.5 Mg Tablet) 2.5 mg PO DAILY [facility] Last Admin: 06/21/23 08:24 Dose: 2.5 mg Polyethylene Glycol (Polyethylene Glycol 3350 17 Gm Powd.Pack) 17 gm PO DAILY [facility] Last Admin: 06/21/23 08:24 Dose: 17 gm Tramadol HCl (Tramadol Hcl 50 Mg Tablet) 50 mg PO Q6H PRN PRN Reason: Pain, Severe (Pain Scale 7-10) Last Admin: 06/20/23 22:25 Dose: 50 mg Trazodone HCl (Trazodone Hcl 100 Mg Tablet) 100 mg PO BEDTIME [facility] Last Admin: 06/20/23 22:24 Dose: 100 mg Allergies Allergies Allergy/AdvReac Type Severity Reaction Status Date / Time pollen extracts Allergy Unknown unknown Verified 04/21/22 14:56 latex Allergy Rash Verified 10/31/22 18:30 Assessment & Plan Assessment & Plan (1) Bipolar disorder, now depressed: Status: Acute Code(s): F31.30 - Bipolar disorder, current episode depressed, mild or moderate severity, unspecified Assessment and Plan: Continue with current regimen (2) Chronic back pain: Status: Acute Code(s): M54.9 - Dorsalgia, unspecified; G89.29 - Other chronic pain Assessment and Plan: No change in management (3) Dementia: Status: Acute Code(s): F03.90 - Unspecified dementia, unspecified severity, without behavioral disturbance, psychotic disturbance, mood disturbance, and anxiety Assessment and Plan: continue memantine Plan 82 year old male with history hyperlipidemia, tubular adenoma colon, BPH, chronic normocytic anemia, 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 PLAN 1. Continue with same treatment. 2. Waiting for placement Reason for continued inpatient stay Substantial Risk for: inability to function, rapid decompensation and med/psych decompensation Time Spent With Patient Time: Total time managing care of this patient today __20__ minutes.
[2023-06-21] MEDS: traZODone HCL 100 MG TABLET PO (20:05)
[2023-06-21] MEDS: OLANZapine 7.5 MG TABLET PO (20:05)
[2023-06-21 20:12] VITALS: BP 104/50; PULSE 69; RESP 18; TEMP 36.6; O2SAT 95
[2023-06-22 09:00] VITALS: BP 154/77; PULSE 73; RESP 18; TEMP 36.5; O2SAT 96
[2023-06-22] MEDS: lamoTRIgine 100 MG TABLET PO ×2 (09:58→20:35)
[2023-06-22] MEDS: polyethylene glycoL 3350 17 GM POWD.PACK PO (09:58)
[2023-06-22] MEDS: OLANZapine 2.5 MG TABLET PO (09:58)
[2023-06-22] MEDS: Memantine HCl 5 MG TABLET PO ×2 (09:58→20:35)
[2023-06-22] MEDS: Acetaminophen 325 MG TABLET 650 MG PO (10:03)
[2023-06-22] MEDS: traZODone HCL 100 MG TABLET PO (20:35)
[2023-06-22] MEDS: OLANZapine 7.5 MG TABLET PO (20:35)
[2023-06-22 22:16] VITALS: BP 103/53; PULSE 60; RESP 18; TEMP 36.4; O2SAT 95
[2023-06-22] MEDS: hydrOXYzine HCL 25 MG TABLET PO (23:24)
--- NOTE | 2023-06-22 23:24 | HO.PSYCHPN ---
Subjective Subjective Date of Service: 06/22/23 Reason For Visit: bipolar disorder Subjective Notes: Conditional Voluntary Interim History: The nursing staff reported the patient had been pleasantly confused, easily redirectable. On interview the patient denies new symptoms, waiting for placement no significant difficulties noted in the milieu Mental Status Exam Mental Status Exam Patient Appearance: Appropriate and Unkempt Patient Orientation: Person and Situation Level of Consciousness: Awake and Appropriate Patient Behavior: Passive Mood Description: Withdrawn Affect Description: Constricted Patient Cognition Impaired: Yes Ability to Follow Directions: Good Speech Pattern: Clear Hallucinations: None Delusions: Not Present Thought Process: Distracted and Slowed Thinking Thought Content: positive for [place] and positive for Poverty of Content Judgement: Fair Diagnostics Vital Signs (24Hr): Vital Signs - 24 hr 06/22/23 09:00 06/22/23 22:16 Temperature 97.7 F 97.5 F Pulse Rate 73 60 Respiratory Rate 18 18 Blood Pressure 154/77 H 103/53 L Pulse Oximetry 96 95 Oxygen Delivery Method Room Air Room Air BMI result Body Mass Index 28.2 Labs 02/15/23 06:42 02/15/23 06:43 Medications Medications Current Medications Acetaminophen (Acetaminophen 325 Mg Tablet) 650 mg PO Q4H PRN PRN Reason: Fever Last Admin: 06/22/23 10:03 Dose: 650 mg Al Hydroxide/Mg Hydroxide (Magnesium Hydrox/Alum Hydrox 30 Ml Oral.Susp) 30 ml PO Q6H PRN PRN Reason: Heartburn/Nausea Artificial Tears (Artificial Tears 15 Ml Drops) 1 drop EYE-BOTH Q4H PRN PRN Reason: Dry Eyes Last Admin: 03/24/23 01:42 Dose: 1 drop Bisacodyl (Bisacodyl 5 Mg Tablet.Dr) 10 mg PO DAILY PRN PRN Reason: Constipation Last Admin: 04/01/23 09:11 Dose: 10 mg Hydroxyzine HCl (Hydroxyzine Hcl 25 Mg Tablet) 25 mg PO Q6H PRN PRN Reason: Anxiety Last Admin: 06/18/23 23:38 Dose: 25 mg Lamotrigine (Lamotrigine 100 Mg Tablet) 100 mg PO BID [facility] Last Admin: 06/22/23 20:35 Dose: 100 mg Magnesium Hydroxide (Milk Of Magnesia 30 Ml Oral.Susp) 30 ml PO DAILY PRN PRN Reason: Constipation Last Admin: 02/01/24 11:03 Dose: 30 ml Memantine (Memantine Hcl 5 Mg Tablet) 5 mg PO BID [facility] Last Admin: 06/22/23 20:35 Dose: 5 mg Olanzapine (Olanzapine 2.5 Mg Tablet) 2.5 mg PO TID PRN PRN Reason: agitation Last Admin: 06/18/23 23:38 Dose: 2.5 mg Olanzapine (Olanzapine 7.5 Mg Tablet) 7.5 mg PO BEDTIME [facility] Last Admin: 06/22/23 20:35 Dose: 7.5 mg Olanzapine (Olanzapine 2.5 Mg Tablet) 2.5 mg PO DAILY [facility] Last Admin: 06/22/23 09:58 Dose: 2.5 mg Polyethylene Glycol (Polyethylene Glycol 3350 17 Gm Powd.Pack) 17 gm PO DAILY [facility] Last Admin: 06/22/23 09:58 Dose: 17 gm Tramadol HCl (Tramadol Hcl 50 Mg Tablet) 50 mg PO Q6H PRN PRN Reason: Pain, Severe (Pain Scale 7-10) Last Admin: 06/20/23 22:25 Dose: 50 mg Trazodone HCl (Trazodone Hcl 100 Mg Tablet) 100 mg PO BEDTIME [facility] Last Admin: 06/22/23 20:35 Dose: 100 mg Allergies Allergies Allergy/AdvReac Type Severity Reaction Status Date / Time pollen extracts Allergy Unknown unknown Verified 04/21/22 14:56 latex Allergy Rash Verified 10/31/22 18:30 Assessment & Plan Assessment & Plan (1) Bipolar disorder, now depressed: Status: Acute Code(s): F31.30 - Bipolar disorder, current episode depressed, mild or moderate severity, unspecified Assessment and Plan: Continue with current regimen (2) Chronic back pain: Status: Acute Code(s): M54.9 - Dorsalgia, unspecified; G89.29 - Other chronic pain Assessment and Plan: No change in management (3) Dementia: Status: Acute Code(s): F03.90 - Unspecified dementia, unspecified severity, without behavioral disturbance, psychotic disturbance, mood disturbance, and anxiety Assessment and Plan: continue memantine Plan 82 year old male with history hyperlipidemia, tubular adenoma colon, BPH, chronic normocytic anemia, 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 PLAN 1. Continue with same treatment. 2. Waiting for placement 06/22/2023 Continue plan of care stabilizing on current regimen discharge planning Reason for continued inpatient stay Substantial Risk for: inability to function and rapid decompensation Time Spent With Patient Time: Total time managing care of this patient today ____ minutes.
[2023-06-22] MEDS: traMADoL HCL 50 MG TABLET PO (23:25)
[2023-06-23 07:38] VITALS: RESP 16; TEMP 36.3
[2023-06-23] MEDS: Memantine HCl 5 MG TABLET PO ×2 (08:10→20:25)
[2023-06-23] MEDS: polyethylene glycoL 3350 17 GM POWD.PACK PO (08:10)
[2023-06-23] MEDS: lamoTRIgine 100 MG TABLET PO ×2 (08:10→20:25)
[2023-06-23] MEDS: OLANZapine 2.5 MG TABLET PO (08:10)
[2023-06-23] MEDS: traMADoL HCL 50 MG TABLET PO (08:11)
--- NOTE | 2023-06-23 10:34 | P.PNPSI_ITS ---
Subjective Subjective Date of Service: 06/23/23 Reason For Visit: bipolar disorder Subjective Notes: Conditional Voluntary Interim History: Patient generally stable not overly agitated cooperative in the milieu Mental Status Exam Mental Status Exam Patient Appearance: Appropriate and Unkempt Patient Orientation: Person and Situation Level of Consciousness: Awake and Appropriate Patient Behavior: Passive Mood Description: Withdrawn Affect Description: Constricted Patient Cognition Impaired: Yes Ability to Follow Directions: Good Speech Pattern: Clear Hallucinations: None Delusions: Not Present Thought Process: Distracted and Slowed Thinking Thought Content: positive for [place] and positive for Poverty of Content Judgement: Fair Diagnostics Vital Signs (24Hr): Vital Signs - 24 hr 06/22/23 22:16 06/23/23 07:38 Temperature 97.5 F 97.3 F Pulse Rate 60 Respiratory Rate 18 16 Blood Pressure 103/53 L Pulse Oximetry 95 Oxygen Delivery Method Room Air BMI result Body Mass Index 28.2 Labs 02/15/23 06:42 02/15/23 06:43 Medications Medications Current Medications Acetaminophen (Acetaminophen 325 Mg Tablet) 650 mg PO Q4H PRN PRN Reason: Fever Last Admin: 06/22/23 10:03 Dose: 650 mg Al Hydroxide/Mg Hydroxide (Magnesium Hydrox/Alum Hydrox 30 Ml Oral.Susp) 30 ml PO Q6H PRN PRN Reason: Heartburn/Nausea Artificial Tears (Artificial Tears 15 Ml Drops) 1 drop EYE-BOTH Q4H PRN PRN Reason: Dry Eyes Last Admin: 03/24/23 01:42 Dose: 1 drop Bisacodyl (Bisacodyl 5 Mg Tablet.Dr) 10 mg PO DAILY PRN PRN Reason: Constipation Last Admin: 04/01/23 09:11 Dose: 10 mg Hydroxyzine HCl (Hydroxyzine Hcl 25 Mg Tablet) 25 mg PO Q6H PRN PRN Reason: Anxiety Last Admin: 06/22/23 23:24 Dose: 25 mg Lamotrigine (Lamotrigine 100 Mg Tablet) 100 mg PO BID [facility] Last Admin: 06/23/23 08:10 Dose: 100 mg Magnesium Hydroxide (Milk Of Magnesia 30 Ml Oral.Susp) 30 ml PO DAILY PRN PRN Reason: Constipation Last Admin: 05/02/23 11:03 Dose: 30 ml Memantine (Memantine Hcl 5 Mg Tablet) 5 mg PO BID [facility] Last Admin: 06/23/23 08:10 Dose: 5 mg Olanzapine (Olanzapine 2.5 Mg Tablet) 2.5 mg PO TID PRN PRN Reason: agitation Last Admin: 06/18/23 23:38 Dose: 2.5 mg Olanzapine (Olanzapine 7.5 Mg Tablet) 7.5 mg PO BEDTIME [facility] Last Admin: 06/22/23 20:35 Dose: 7.5 mg Olanzapine (Olanzapine 2.5 Mg Tablet) 2.5 mg PO DAILY [facility] Last Admin: 06/23/23 08:10 Dose: 2.5 mg Polyethylene Glycol (Polyethylene Glycol 3350 17 Gm Powd.Pack) 17 gm PO DAILY [facility] Last Admin: 06/23/23 08:10 Dose: 17 gm Tramadol HCl (Tramadol Hcl 50 Mg Tablet) 50 mg PO Q6H PRN PRN Reason: Pain, Severe (Pain Scale 7-10) Last Admin: 06/23/23 08:11 Dose: 50 mg Trazodone HCl (Trazodone Hcl 100 Mg Tablet) 100 mg PO BEDTIME [facility] Last Admin: 06/22/23 20:35 Dose: 100 mg Allergies Allergies Allergy/AdvReac Type Severity Reaction Status Date / Time pollen extracts Allergy Unknown unknown Verified 04/21/22 14:56 latex Allergy Rash Verified 10/31/22 18:30 Assessment & Plan Assessment & Plan (1) Bipolar disorder, now depressed: Status: Acute Code(s): F31.30 - Bipolar disorder, current episode depressed, mild or moderate severity, unspecified Assessment and Plan: Continue with current regimen (2) Chronic back pain: Status: Acute Code(s): M54.9 - Dorsalgia, unspecified; G89.29 - Other chronic pain Assessment and Plan: No change in management (3) Dementia: Status: Acute Code(s): F03.90 - Unspecified dementia, unspecified severity, without behavioral disturbance, psychotic disturbance, mood disturbance, and anxiety Assessment and Plan: continue memantine Plan 82 year old male with history hyperlipidemia, tubular adenoma colon, BPH, chronic normocytic anemia, 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 PLAN 1. Continue with same treatment. 2. Waiting for placement 06/23/2023 Continue plan of care discharge planning Reason for continued inpatient stay Substantial Risk for: inability to function and rapid decompensation Time Spent With Patient Time: Total time managing care of this patient today ____ minutes.
--- NOTE | 2023-06-23 11:19 | PC.NURSE ---
Es[facility] declined all VS except for temp. Dr. Tobias notified.
[2023-06-23 19:30] VITALS: BP 101/58; PULSE 65; RESP 16; TEMP 36.6; O2SAT 95
[2023-06-23] MEDS: traZODone HCL 100 MG TABLET PO (20:25)
[2023-06-23] MEDS: OLANZapine 7.5 MG TABLET PO (20:25)
[2023-06-24 06:00] VITALS: BP 142/81; PULSE 69; RESP 18; TEMP 36.4; O2SAT 98
[2023-06-24] MEDS: polyethylene glycoL 3350 17 GM POWD.PACK PO (09:09)
[2023-06-24] MEDS: Memantine HCl 5 MG TABLET PO ×2 (09:09→20:58)
[2023-06-24] MEDS: OLANZapine 2.5 MG TABLET PO (09:10)
[2023-06-24] MEDS: lamoTRIgine 100 MG TABLET PO ×2 (09:10→20:58)
--- NOTE | 2023-06-24 15:50 | HO.PSYCHPN ---
Subjective Subjective Date of Service: 06/24/23 Reason For Visit: bipolar disorder Subjective Notes: Conditional Voluntary Interim History: The nursing staff reported no changes of mental status. On interview, no new sysmptoms, waiting for placement. Mental Status Exam Mental Status Exam Patient Appearance: Appropriate Patient Orientation: Person Level of Consciousness: Awake Patient Behavior: Passive Mood Description: Calm Affect Description: Constricted Patient Cognition Impaired: Yes Ability to Follow Directions: Good Speech Pattern: Clear Hallucinations: None Delusions: Not Present Thought Process: Distracted and Slowed Thinking Thought Content: positive for [place] and positive for Poverty of Content Judgement: Fair Diagnostics Vital Signs (24Hr): Vital Signs - 24 hr 06/23/23 19:30 06/24/23 06:00 Temperature 97.8 F 97.6 F Pulse Rate 65 69 Respiratory Rate 16 18 Blood Pressure 101/58 L 142/81 H Pulse Oximetry 95 98 Oxygen Delivery Method Room Air Room Air BMI result Body Mass Index 28.2 Labs 02/15/23 06:42 02/15/23 06:43 Medications Medications Current Medications Acetaminophen (Acetaminophen 325 Mg Tablet) 650 mg PO Q4H PRN PRN Reason: Fever Last Admin: 06/22/23 10:03 Dose: 650 mg Al Hydroxide/Mg Hydroxide (Magnesium Hydrox/Alum Hydrox 30 Ml Oral.Susp) 30 ml PO Q6H PRN PRN Reason: Heartburn/Nausea Artificial Tears (Artificial Tears 15 Ml Drops) 1 drop EYE-BOTH Q4H PRN PRN Reason: Dry Eyes Last Admin: 03/24/23 01:42 Dose: 1 drop Bisacodyl (Bisacodyl 5 Mg Tablet.) 10 mg PO DAILY PRN PRN Reason: Constipation Last Admin: 04/01/23 09:11 Dose: 10 mg Hydroxyzine HCl (Hydroxyzine Hcl 25 Mg Tablet) 25 mg PO Q6H PRN PRN Reason: Anxiety Last Admin: 06/22/23 23:24 Dose: 25 mg Lamotrigine (Lamotrigine 100 Mg Tablet) 100 mg PO BID [facility] Last Admin: 06/24/23 09:10 Dose: 100 mg Magnesium Hydroxide (Milk Of Magnesia 30 Ml Oral.Susp) 30 ml PO DAILY PRN PRN Reason: Constipation Last Admin: 05/02/23 11:03 Dose: 30 ml Memantine (Memantine Hcl 5 Mg Tablet) 5 mg PO BID [facility] Last Admin: 06/24/23 09:09 Dose: 5 mg Olanzapine (Olanzapine 2.5 Mg Tablet) 2.5 mg PO TID PRN PRN Reason: agitation Last Admin: 06/18/23 23:38 Dose: 2.5 mg Olanzapine (Olanzapine 7.5 Mg Tablet) 7.5 mg PO BEDTIME [facility] Last Admin: 06/23/23 20:25 Dose: 7.5 mg Olanzapine (Olanzapine 2.5 Mg Tablet) 2.5 mg PO DAILY [facility] Last Admin: 06/24/23 09:10 Dose: 2.5 mg Polyethylene Glycol (Polyethylene Glycol 3350 17 Gm Powd.Pack) 17 gm PO DAILY [facility] Last Admin: 06/24/23 09:09 Dose: 17 gm Tramadol HCl (Tramadol Hcl 50 Mg Tablet) 50 mg PO Q6H PRN PRN Reason: Pain, Severe (Pain Scale 7-10) Last Admin: 06/23/23 08:11 Dose: 50 mg Trazodone HCl (Trazodone Hcl 100 Mg Tablet) 100 mg PO BEDTIME [facility] Last Admin: 06/23/23 20:25 Dose: 100 mg Allergies Allergies Allergy/AdvReac Type Severity Reaction Status Date / Time pollen extracts Allergy Unknown unknown Verified 04/21/22 14:56 latex Allergy Rash Verified 10/31/22 18:30 Assessment & Plan Assessment & Plan (1) Bipolar disorder, now depressed: Status: Acute Code(s): F31.30 - Bipolar disorder, current episode depressed, mild or moderate severity, unspecified Assessment and Plan: Continue with current regimen (2) Chronic back pain: Status: Acute Code(s): M54.9 - Dorsalgia, unspecified; G89.29 - Other chronic pain Assessment and Plan: No change in management (3) Dementia: Status: Acute Code(s): F03.90 - Unspecified dementia, unspecified severity, without behavioral disturbance, psychotic disturbance, mood disturbance, and anxiety Assessment and Plan: continue memantine Plan 82 year old male with history hyperlipidemia, tubular adenoma colon, BPH, chronic normocytic anemia, 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 PLAN 1. Continue with same treatment. 2. Waiting for placement Reason for continued inpatient stay Substantial Risk for: inability to function, rapid decompensation and med/psych decompensation Time Spent With Patient Time: Total time managing care of this patient today _20___ minutes.
[2023-06-24 20:00] VITALS: BP 113/69; PULSE 92; RESP 18; TEMP 36.2; O2SAT 94
[2023-06-24] MEDS: traZODone HCL 100 MG TABLET PO (20:58)
[2023-06-24] MEDS: OLANZapine 7.5 MG TABLET PO (20:58)
[2023-06-24] MEDS: traMADoL HCL 50 MG TABLET PO (20:59)
--- NOTE | 2023-06-24 22:35 | PC.NURSE ---
Esvin given Tramadol PO prn for pain 10/08
[2023-06-25 06:00] VITALS: BP 124/65; PULSE 75; RESP 18; TEMP 36.3; O2SAT 95
[2023-06-25] MEDS: lamoTRIgine 100 MG TABLET PO ×2 (08:16→20:53)
[2023-06-25] MEDS: polyethylene glycoL 3350 17 GM POWD.PACK PO (08:16)
[2023-06-25] MEDS: OLANZapine 2.5 MG TABLET PO (08:16)
[2023-06-25] MEDS: Memantine HCl 5 MG TABLET PO ×2 (08:16→20:52)
--- NOTE | 2023-06-25 08:56 | HO.PSYCHPN ---
Subjective Subjective Reason For Visit: bipolar disorder Diagnostics Vital Signs (24Hr): Vital Signs - 24 hr 06/24/23 20:00 06/25/23 06:00 Temperature 97.2 F 97.4 F Pulse Rate 92 75 Respiratory Rate 18 18 Blood Pressure 113/69 124/65 Pulse Oximetry 94 95 Oxygen Delivery Method Room Air Room Air BMI result Body Mass Index 28.2 Labs 02/15/23 06:42 02/15/23 06:43 Medications Medications Current Medications Acetaminophen (Acetaminophen 325 Mg Tablet) 650 mg PO Q4H PRN PRN Reason: Fever Last Admin: 06/22/23 10:03 Dose: 650 mg Al Hydroxide/Mg Hydroxide (Magnesium Hydrox/Alum Hydrox 30 Ml Oral.Susp) 30 ml PO Q6H PRN PRN Reason: Heartburn/Nausea Artificial Tears (Artificial Tears 15 Ml Drops) 1 drop EYE-BOTH Q4H PRN PRN Reason: Dry Eyes Last Admin: 03/24/23 01:42 Dose: 1 drop Bisacodyl (Bisacodyl 5 Mg Tablet.Dr) 10 mg PO DAILY PRN PRN Reason: Constipation Last Admin: 04/01/23 09:11 Dose: 10 mg Hydroxyzine HCl (Hydroxyzine Hcl 25 Mg Tablet) 25 mg PO Q6H PRN PRN Reason: Anxiety Last Admin: 06/22/23 23:24 Dose: 25 mg Lamotrigine (Lamotrigine 100 Mg Tablet) 100 mg PO BID [facility] Last Admin: 06/25/23 08:16 Dose: 100 mg Magnesium Hydroxide (Milk Of Magnesia 30 Ml Oral.Susp) 30 ml PO DAILY PRN PRN Reason: Constipation Last Admin: 05/02/23 11:03 Dose: 30 ml Memantine (Memantine Hcl 5 Mg Tablet) 5 mg PO BID [facility] Last Admin: 06/25/23 08:16 Dose: 5 mg Olanzapine (Olanzapine 2.5 Mg Tablet) 2.5 mg PO TID PRN PRN Reason: agitation Last Admin: 06/18/23 23:38 Dose: 2.5 mg Olanzapine (Olanzapine 7.5 Mg Tablet) 7.5 mg PO BEDTIME [facility] Last Admin: 06/24/23 20:58 Dose: 7.5 mg Olanzapine (Olanzapine 2.5 Mg Tablet) 2.5 mg PO DAILY [facility] Last Admin: 06/25/23 08:16 Dose: 2.5 mg Polyethylene Glycol (Polyethylene Glycol 3350 17 Gm Powd.Pack) 17 gm PO DAILY [facility] Last Admin: 06/25/23 08:16 Dose: 17 gm Tramadol HCl (Tramadol Hcl 50 Mg Tablet) 50 mg PO Q6H PRN PRN Reason: Pain, Severe (Pain Scale 7-10) Last Admin: 06/24/23 20:59 Dose: 50 mg Trazodone HCl (Trazodone Hcl 100 Mg Tablet) 100 mg PO BEDTIME [facility] Last Admin: 06/24/23 20:58 Dose: 100 mg Allergies Allergies Allergy/AdvReac Type Severity Reaction Status Date / Time pollen extracts Allergy Unknown unknown Verified 04/21/22 14:56 latex Allergy Rash Verified 10/31/22 18:30 Assessment & Plan Assessment & Plan (1) Bipolar disorder, now depressed: Status: Acute Code(s): F31.30 - Bipolar disorder, current episode depressed, mild or moderate severity, unspecified Assessment and Plan: Continue with current regimen (2) Chronic back pain: Status: Acute Code(s): M54.9 - Dorsalgia, unspecified; G89.29 - Other chronic pain Assessment and Plan: No change in management (3) Dementia: Status: Acute Code(s): F03.90 - Unspecified dementia, unspecified severity, without behavioral disturbance, psychotic disturbance, mood disturbance, and anxiety Assessment and Plan: continue memantine Plan 82 year old male with history hyperlipidemia, tubular adenoma colon, BPH, chronic normocytic anemia, 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 PLAN 1. Continue with same treatment. 2. Waiting for placement Time Spent With Patient Time: Total time managing care of this patient today ____ minutes.
[2023-06-25 18:00] VITALS: BP 141/68; PULSE 80; RESP 18; TEMP 36.3; O2SAT 95
[2023-06-25] MEDS: OLANZapine 7.5 MG TABLET PO (20:52)
[2023-06-25] MEDS: traMADoL HCL 50 MG TABLET PO (20:52)
[2023-06-25] MEDS: traZODone HCL 100 MG TABLET PO (20:53)
[2023-06-25] MEDS: hydrOXYzine HCL 25 MG TABLET PO (20:53)
[2023-06-26 07:51] VITALS: BP 134/76; PULSE 66; RESP 18; TEMP 36.8; O2SAT 96
[2023-06-26] MEDS: polyethylene glycoL 3350 17 GM POWD.PACK PO (08:05)
[2023-06-26] MEDS: Memantine HCl 5 MG TABLET PO ×2 (08:05→20:41)
[2023-06-26] MEDS: lamoTRIgine 100 MG TABLET PO ×2 (08:06→20:41)
[2023-06-26] MEDS: OLANZapine 2.5 MG TABLET PO (08:06)
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
[2023-06-26 18:00] VITALS: BP 97/51; PULSE 64; RESP 18; TEMP 36.4; O2SAT 94
[2023-06-26] MEDS: traZODone HCL 100 MG TABLET PO (20:41)
[2023-06-26] MEDS: OLANZapine 7.5 MG TABLET PO (20:41)
[2023-06-27] MEDS: traMADoL HCL 50 MG TABLET PO (03:25)
[2023-06-27 07:00] VITALS: BMI 27.8
[2023-06-27 07:51] VITALS: BP 120/77; PULSE 72; RESP 16; TEMP 36.3; O2SAT 94
[2023-06-27] MEDS: lamoTRIgine 100 MG TABLET PO ×2 (07:52→20:11)
[2023-06-27] MEDS: OLANZapine 2.5 MG TABLET PO (07:52)
[2023-06-27] MEDS: Memantine HCl 5 MG TABLET PO ×2 (07:52→20:11)
[2023-06-27] MEDS: polyethylene glycoL 3350 17 GM POWD.PACK PO (07:53)
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
[2023-06-27] MEDS: traZODone HCL 100 MG TABLET PO (20:11)
[2023-06-27] MEDS: OLANZapine 7.5 MG TABLET PO (20:11)
[2023-06-27 20:50] VITALS: BP 116/59; PULSE 90; RESP 18; TEMP 36.2; O2SAT 96
[2023-06-28 09:14] VITALS: BP 134/79; PULSE 70; RESP 18; TEMP 36.3; O2SAT 95
[2023-06-28] MEDS: traMADoL HCL 50 MG TABLET PO (09:48)
[2023-06-28] MEDS: polyethylene glycoL 3350 17 GM POWD.PACK PO (09:49)
[2023-06-28] MEDS: Memantine HCl 5 MG TABLET PO ×2 (09:49→21:15)
[2023-06-28] MEDS: OLANZapine 2.5 MG TABLET PO (09:49)
[2023-06-28] MEDS: lamoTRIgine 100 MG TABLET PO ×2 (09:49→21:15)
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
[2023-06-28 18:00] VITALS: BP 127/69; PULSE 78; RESP 18; TEMP 36.3; O2SAT 92
[2023-06-28] MEDS: traZODone HCL 100 MG TABLET PO (21:15)
[2023-06-28] MEDS: OLANZapine 7.5 MG TABLET PO (21:15)
[2023-06-29] MEDS: traMADoL HCL 50 MG TABLET PO (02:39)
[2023-06-29] MEDS: hydrOXYzine HCL 25 MG TABLET PO (02:40)
[2023-06-29 08:05] VITALS: BP 122/70; PULSE 76; RESP 18; TEMP 36.7; O2SAT 94
[2023-06-29] MEDS: OLANZapine 2.5 MG TABLET PO (08:31)
[2023-06-29] MEDS: Memantine HCl 5 MG TABLET PO ×2 (08:31→20:51)
[2023-06-29] MEDS: lamoTRIgine 100 MG TABLET PO ×2 (08:31→20:51)
[2023-06-29] MEDS: polyethylene glycoL 3350 17 GM POWD.PACK PO (08:32)
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
[2023-06-29 18:00] VITALS: BP 114/69; PULSE 64; RESP 18; TEMP 36.6; O2SAT 94
[2023-06-29] MEDS: OLANZapine 7.5 MG TABLET PO (20:51)
[2023-06-29] MEDS: traZODone HCL 100 MG TABLET PO (20:51)
[2023-06-30 06:00] VITALS: BP 154/85; PULSE 60; RESP 18; TEMP 36.6; O2SAT 97
[2023-06-30] MEDS: OLANZapine 2.5 MG TABLET PO (09:15)
[2023-06-30] MEDS: polyethylene glycoL 3350 17 GM POWD.PACK PO (09:15)
[2023-06-30] MEDS: Memantine HCl 5 MG TABLET PO ×2 (09:15→20:00)
[2023-06-30] MEDS: lamoTRIgine 100 MG TABLET PO ×2 (09:16→20:00)
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
[2023-06-30 18:00] VITALS: BP 101/65; PULSE 67; RESP 18; TEMP 36; O2SAT 95
[2023-06-30] MEDS: OLANZapine 7.5 MG TABLET PO (20:00)
[2023-06-30] MEDS: traZODone HCL 100 MG TABLET PO (20:00)
[2023-06-30] MEDS: hydrOXYzine HCL 25 MG TABLET PO (20:00)
[2023-06-30] MEDS: traMADoL HCL 50 MG TABLET PO (20:08)
[2023-07-01 07:55] VITALS: BP 108/53; PULSE 71; RESP 18; TEMP 36.6; O2SAT 95
[2023-07-01] MEDS: polyethylene glycoL 3350 17 GM POWD.PACK PO (08:28)
[2023-07-01] MEDS: lamoTRIgine 100 MG TABLET PO ×2 (08:28→19:51)
[2023-07-01] MEDS: Memantine HCl 5 MG TABLET PO ×2 (08:28→19:51)
[2023-07-01] MEDS: OLANZapine 2.5 MG TABLET PO (08:29)
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
[2023-07-01] MEDS: OLANZapine 7.5 MG TABLET PO (19:51)
[2023-07-01] MEDS: traZODone HCL 100 MG TABLET PO (19:51)
[2023-07-01 20:49] VITALS: BP 151/71; PULSE 68; RESP 18; TEMP 36.6; O2SAT 96
[2023-07-02] MEDS: Memantine HCl 5 MG TABLET PO ×2 (08:17→20:51)
[2023-07-02] MEDS: polyethylene glycoL 3350 17 GM POWD.PACK PO (08:17)
[2023-07-02] MEDS: lamoTRIgine 100 MG TABLET PO ×2 (08:17→20:51)
[2023-07-02] MEDS: OLANZapine 2.5 MG TABLET PO (08:17)
[2023-07-02 09:36] VITALS: BP 124/67; PULSE 59; RESP 16; TEMP 35.9; O2SAT 96
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
[2023-07-02] MEDS: OLANZapine 7.5 MG TABLET PO (20:51)
[2023-07-02] MEDS: traZODone HCL 100 MG TABLET PO (20:51)
[2023-07-02 21:11] VITALS: BP 100/53; PULSE 67; RESP 18; TEMP 36.5; O2SAT 94
[2023-07-03 09:01] VITALS: BP 116/58; PULSE 76; RESP 18; TEMP 37.1; O2SAT 95
[2023-07-03] MEDS: polyethylene glycoL 3350 17 GM POWD.PACK PO (09:04)
[2023-07-03] MEDS: lamoTRIgine 100 MG TABLET PO ×2 (09:04→21:27)
[2023-07-03] MEDS: Memantine HCl 5 MG TABLET PO ×2 (09:04→21:27)
[2023-07-03] MEDS: OLANZapine 2.5 MG TABLET PO (09:05)
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
[2023-07-03 18:00] VITALS: BP 124/68; PULSE 62; RESP 18; TEMP 36.7; O2SAT 96
[2023-07-03] MEDS: OLANZapine 7.5 MG TABLET PO (21:27)
[2023-07-03] MEDS: traZODone HCL 100 MG TABLET PO (21:27)
[2023-07-04] MEDS: traMADoL HCL 50 MG TABLET PO ×2 (00:20→21:16)
[2023-07-04] MEDS: Acetaminophen 325 MG TABLET 650 MG PO (00:21)
[2023-07-04] MEDS: hydrOXYzine HCL 25 MG TABLET PO ×2 (00:22→21:17)
[2023-07-04 07:00] VITALS: BMI 27.3
[2023-07-04 08:00] VITALS: BP 141/69; PULSE 69; RESP 18; TEMP 36.3; O2SAT 96
[2023-07-04] MEDS: lamoTRIgine 100 MG TABLET PO ×2 (08:23→21:17)
[2023-07-04] MEDS: OLANZapine 2.5 MG TABLET PO (08:23)
[2023-07-04] MEDS: Memantine HCl 5 MG TABLET PO ×2 (08:23→21:17)
[2023-07-04] MEDS: polyethylene glycoL 3350 17 GM POWD.PACK PO (08:23)
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
[2023-07-04 18:00] VITALS: BP 149/82; PULSE 75; RESP 18; TEMP 36.7; O2SAT 95
[2023-07-04] MEDS: OLANZapine 7.5 MG TABLET PO (21:17)
[2023-07-04] MEDS: traZODone HCL 100 MG TABLET PO (21:19)
[2023-07-05 08:54] VITALS: BP 128/73; PULSE 75; RESP 16; TEMP 36.9; O2SAT 97
[2023-07-05] MEDS: Memantine HCl 5 MG TABLET PO ×2 (08:56→20:40)
[2023-07-05] MEDS: lamoTRIgine 100 MG TABLET PO ×2 (08:56→20:40)
[2023-07-05] MEDS: polyethylene glycoL 3350 17 GM POWD.PACK PO (08:56)
[2023-07-05] MEDS: OLANZapine 2.5 MG TABLET PO (08:56)
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
[2023-07-05] MEDS: traZODone HCL 100 MG TABLET PO (20:40)
[2023-07-05] MEDS: OLANZapine 7.5 MG TABLET PO (20:40)
[2023-07-05 20:49] VITALS: BP 136/66; PULSE 71; RESP 17; TEMP 36.1; O2SAT 95
[2023-07-06 08:25] VITALS: BP 135/70; PULSE 68; RESP 16; TEMP 36.6; O2SAT 95
[2023-07-06] MEDS: polyethylene glycoL 3350 17 GM POWD.PACK PO (08:48)
[2023-07-06] MEDS: Memantine HCl 5 MG TABLET PO ×2 (08:48→20:39)
[2023-07-06] MEDS: OLANZapine 2.5 MG TABLET PO (08:48)
[2023-07-06] MEDS: lamoTRIgine 100 MG TABLET PO ×2 (08:48→20:39)
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
[2023-07-06 20:17] VITALS: BP 115/65; PULSE 64; RESP 16; TEMP 36.4; O2SAT 96
[2023-07-06] MEDS: OLANZapine 7.5 MG TABLET PO (20:39)
[2023-07-06] MEDS: traZODone HCL 100 MG TABLET PO (20:39)
[2023-07-07] MEDS: traMADoL HCL 50 MG TABLET PO (01:32)
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
[2023-07-07 07:55] VITALS: BP 137/62; PULSE 71; RESP 18; TEMP 36.6; O2SAT 95
[2023-07-07] MEDS: Memantine HCl 5 MG TABLET PO ×2 (08:32→19:59)
[2023-07-07] MEDS: lamoTRIgine 100 MG TABLET PO ×2 (08:32→19:59)
[2023-07-07] MEDS: OLANZapine 2.5 MG TABLET PO (08:32)
[2023-07-07] MEDS: polyethylene glycoL 3350 17 GM POWD.PACK PO (08:33)
[2023-07-07] MEDS: traZODone HCL 100 MG TABLET PO (19:59)
[2023-07-07] MEDS: OLANZapine 7.5 MG TABLET PO (19:59)
[2023-07-07 20:25] VITALS: BP 112/56; PULSE 62; RESP 17; TEMP 36.2; O2SAT 95
[2023-07-08 07:45] VITALS: BP 118/61; PULSE 70; RESP 16; TEMP 36.3; O2SAT 95
[2023-07-08] MEDS: polyethylene glycoL 3350 17 GM POWD.PACK PO (08:18)
[2023-07-08] MEDS: Memantine HCl 5 MG TABLET PO ×2 (08:18→20:07)
[2023-07-08] MEDS: OLANZapine 2.5 MG TABLET PO (08:18)
[2023-07-08] MEDS: lamoTRIgine 100 MG TABLET PO ×2 (08:18→20:07)
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
[2023-07-08 18:00] VITALS: BP 135/87; PULSE 79; RESP 16; TEMP 36.9; O2SAT 95
[2023-07-08] MEDS: traMADoL HCL 50 MG TABLET PO (20:06)
[2023-07-08] MEDS: traZODone HCL 100 MG TABLET PO (20:07)
[2023-07-08] MEDS: OLANZapine 7.5 MG TABLET PO (20:07)
[2023-07-08] MEDS: hydrOXYzine HCL 25 MG TABLET PO (20:07)
[2023-07-09 07:00] VITALS: BP 149/76; PULSE 74; RESP 18; TEMP 35.5; O2SAT 96
[2023-07-09] MEDS: polyethylene glycoL 3350 17 GM POWD.PACK PO (08:26)
[2023-07-09] MEDS: Memantine HCl 5 MG TABLET PO (08:27)
[2023-07-09] MEDS: lamoTRIgine 100 MG TABLET PO (08:27)
[2023-07-09] MEDS: OLANZapine 2.5 MG TABLET PO (08:27)
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
== END 2023-07-09 13:05 | DRG 885 ==
PROVIDERS: Psychiatry & Neurology Psychiatry; Social Worker; Admitting Provider Psychiatry & Neurology Psychiatry; PCP Family Medicine; Visit Provider Psychiatry & Neurology Psychiatry
DX: F31.30 Bipolar disorder, current episode depressed, mild or moderate severity, unspecified (principal); R45.851 Suicidal ideations; Z59.02 Unsheltered homelessness; N40.0 Benign prostatic hyperplasia without lower urinary tract symptoms; M25.552 Pain in left hip; E78.5 Hyperlipidemia, unspecified; F03.90 Unspecified dementia, unspecified severity, without behavioral disturbance, psychotic disturbance, mood disturbance, and anxiety; M54.59 Other low back pain; G89.29 Other chronic pain; D64.9 Anemia, unspecified; Z91.040 Latex allergy status; Z23 Encounter for immunization; Z75.1 Person awaiting admission to adequate facility elsewhere; Z79.899 Other long term (current) drug therapy
CPT/HCPCS: 0241U; 36415; 80048; 80053; 80061; 80076; 81001; 83036; 84443; 85025; 87635; 90686

== ENCOUNTER → 2022-10-12 16:47 | Outpatient (BNV) | payer MEDICARE, MEDICAID, SELFPAY | PROVIDERS: Admitting Provider Psychiatry & Neurology Psychiatry; PCP Family Medicine; Visit Provider Psychiatry & Neurology Psychiatry | DX: F31.30 Bipolar disorder, current episode depressed, mild or moderate severity, unspecified (principal); F03.90 Unspecified dementia, unspecified severity, without behavioral disturbance, psychotic disturbance, mood disturbance, and anxiety; M54.9 Dorsalgia, unspecified; G89.29 Other chronic pain | CPT/HCPCS: 99231 ==

== ENCOUNTER → 2022-10-12 16:47 | Outpatient (BNV) | payer MEDICARE, MEDICAID, SELFPAY | PROVIDERS: Admitting Provider Psychiatry & Neurology Psychiatry; PCP Family Medicine; Visit Provider Psychiatry & Neurology Psychiatry | DX: F31.30 Bipolar disorder, current episode depressed, mild or moderate severity, unspecified (principal); F03.90 Unspecified dementia, unspecified severity, without behavioral disturbance, psychotic disturbance, mood disturbance, and anxiety; M54.9 Dorsalgia, unspecified; G89.29 Other chronic pain | CPT/HCPCS: 90792; 99231; 99232; 99239; 99499 ==

== ENCOUNTER → 2022-10-12 16:47 | Outpatient (BNV) | payer MEDICARE, MEDICAID, SELFPAY | PROVIDERS: Admitting Provider Psychiatry & Neurology Psychiatry; PCP Family Medicine; Visit Provider Physician Assistant | DX: M54.9 Dorsalgia, unspecified (principal); G89.29 Other chronic pain | CPT/HCPCS: 99222; 99232; 99499 ==